=== PATIENT | female | born 1950 | race African-American/Black ===

== ENCOUNTER 2017-12-01 20:38 | Emergency (ER) | payer OTHER ==
[2017-12-01] MEDS ORDERED: NA CHLORIDE 0.9% 500 ML ONE (21:46)
[2017-12-01] MEDS ORDERED: FENTANYL CITR 100 MCG/2 ML ONE (21:46)
[2017-12-01] MEDS ORDERED: ONDANSETRON 4 MG/2 ML VIAL ONE (21:46)
[2017-12-01 21:55] LABS: Absolute Lymphocytes (CBC) 1.4 K/uL (0.7-4.9); Absolute Monocytes 0.6 K/uL (0.1-1.3); Absolute Neutrophil 3.7 K/uL (1.8-8.0); Basophils % 0.5 % (0-1.3); Eosinophils % 1.3 % (0-4.4); Hematocrit 37.7 % (36.0-45.0); MCH 27.9 pg (27.0-35.0); MCV 84.4 fL (80-100); MPV 9.5 fL (7.6-11.3); Monocytes % 10.6 % (3.3-12.3); RBC Red Blood Cell Count 4.47 M/uL (3.86-4.86)
--- NOTE | 2017-12-01 22:07 | RAD REPORT ---
EXAM DESCRIPTION: CT - Head C Spine Cap Wo Con - 12/01/2017 9:49 pm CLINICAL HISTORY: Trauma, head and neck injury. Chest, abdomen and pelvis pain. PAIN COMPARISON: Head Brain Wo Cont dated 03/24/2017; Head Brain Wo Cont dated 01/30/2017; Abdomen Pelvi s W Contrast dated 12/02/2016; Head Brain Wo Cont dated 10/27/2016; Head C Spine Cap Wo Con dated 2016 TECHNIQUE: CT head without contrast. CT cervical spine without contrast with coronal and sagittal reformatted images. CT chest, abdomen and pelvis without contrast with coronal and sagittal reformatted images of the [facility] ne. All CT scans are performed using dose optimization technique as appropriate and may include automated exposure control or mA/KV adjustment according to patient size. FINDINGS: CT HEAD WITHOUT CONTRAST: No intracranial hemorrhage, hydrocephalus or extra-axial fluid collection. No areas of brain edema o r midline shift. The paranasal sinuses and mastoids are clear. The calvarium is intact. CT CERVICAL SPINE WITHOUT CONTRAST: No fracture or subluxation. The prevertebral soft tissues are normal in thickness. CT CHEST, ABDOMEN, PELVIS WITHOUT CONTRAST: NOTE: Lack of contrast is a significant limitation in the assessment of trauma related findings. Spec ifically, solid organ, vascular and bowel evaluation is significantly limited. The lungs are clear.No pneumothorax or pericardial/pleural fluid. No evidence of intra-abdominal visceral injury, free fluid or free air is seen within the above detai led limitations. Liver cirrhosis with splenomegaly and portal hypertension again noted. Cholecystecto my clips. No concerning pelvic findings. Scattered colonic diverticulosis is seen. No acute fractures demonstrated. IMPRESSION: Negative for acute traumatic findings within the above detailed limitations.
--- NOTE | 2017-12-01 22:11 | RAD REPORT ---
EXAM DESCRIPTION: RAD - Knee Left 3 View - 12/01/2017 9:59 pm CLINICAL HISTORY: PAIN Trauma COMPARISON: Knee Left 3 view dated 05/18/2013 FINDINGS: No fracture or dislocation is seen. No significant joint effusion present.
[2017-12-01 22:19] LABS: Potassium 3.5 mmol/L (3.5-5.1)
--- NOTE | 2017-12-01 22:38 | EDPHYS ---
Physician Documentation [facility] Name: Sheila Vila Age: 67 yrs Sex: Female : 1950 Arrival Date: 12/01/2017 Time: 20:41 Bed 3 Private MD: ED Physician Merlin Chang HPI: 12/01 21:29 This 67 yrs old Black Female presents to ER via EMS with complaints of Fall Injury. nolvia 21:29 Details of fall: The patient fell from an upright position, while walking. Onset: The nolvia symptoms/episode began/occurred just prior to arrival. Associated injuries: The patient sustained injury to the head, injury to the low back, left knee, decreased range of motion. Severity of symptoms: At their worst the symptoms were mild, moderate, in the emergency department the symptoms are unchanged. The patient has not experienced similar symptoms in the past. Historical: - Allergies: 20:51 Darvocet-N 100; ao 20:51 PENICILLINS; ao 20:51 Toradol; ao - Home Meds: 20:51 brio inhaler [Active]; clonidine HCl 0.2 mg Oral tab [Active]; levamir 50 UNITS twice a ao day [Active]; lisinopril-hydrochlorothiazide Oral [Active]; Invokana 100 mg Oral tab 1 tab once daily [Active]; Metformin Oral 3 times per day [Active]; Tresiba FlexTouch U-100 subcutaneous [Active]; Xanax 2 mg Oral tab 3 times per day [Active]; Novolog Sub-Q [Active]; Tylenol #3 Oral [Active]; [place] 10-325 mg Oral tab three times a day [Active]; Victoza 2-Abhay subcutaneous [Active]; Seroquel Oral [Active]; - PMHx: 20:51 Asthma; Cirrhosis; COPD; Diabetes - IDDM; Hepatitis; resolved; Hypertension; ao Pancreatitis; Pneumonia; - PSHx: 20:51 None; ao - Immunization history:: Adult Immunizations unknown. - Social history:: Smoking status: Patient/guardian denies using tobacco, Patient/guardian denies using alcohol, street drugs. - Immunization history: Last tetanus immunization: - up to date. - Ebola Screening: : Patient negative for fever greater than or equal to 101.5 degrees Fahrenheit, and additional compatible Ebola Virus Disease symptoms Patient denies exposure to infectious person Patient denies travel to an Ebola-affected area in the 21 days before illness onset. - Family history:: not pertinent. ROS: 21:29 Constitutional: Negative for fever, chills, and weight loss, Eyes: Negative for injury, nolvia pain, redness, and discharge, ENT: Negative for injury, pain, and discharge, Neck: Negative for injury, pain, and swelling, Cardiovascular: Negative for chest pain, palpitations, and edema, Respiratory: Negative for shortness of breath, cough, wheezing, and pleuritic chest pain, Abdomen/GI: Negative for abdominal pain, nausea, vomiting, diarrhea, and constipation, Back: Negative for injury and pain, : Negative for injury, bleeding, discharge, and swelling, Skin: Negative for injury, rash, and discoloration, Neuro: Negative for headache, weakness, numbness, tingling, and seizure, Psych: Negative for depression, anxiety, suicide ideation, homicidal ideation, and hallucinations, Allergy/Immunology: Negative for hives, rash, and allergies, Endocrine: Negative for neck swelling, polydipsia, polyuria, polyphagia, and marked weight changes, Hematologic/Lymphatic: Negative for swollen nodes, abnormal bleeding, and unusual bruising. 21:29 MS/extremity: Positive for decreased range of motion, pain, tenderness, of the left knee. Exam: 21:29 Constitutional: This is a well developed, well nourished patient who is awake, alert, nolvia and in no acute distress. Head/Face: Normocephalic, atraumatic. Eyes: Pupils equal round and reactive to light, extra-ocular motions intact. Lids and lashes normal. Conjunctiva and sclera are non-icteric and not injected. Cornea within normal limits. Periorbital areas with no swelling, redness, or edema. ENT: Nares patent. No nasal discharge, no septal abnormalities noted. Tympanic membranes are normal and external auditory canals are clear. Oropharynx with no redness, swelling, or masses, exudates, or evidence of obstruction, uvula midline. Mucous membranes moist. Neck: Trachea midline, no thyromegaly or masses palpated, and no cervical lymphadenopathy. Supple, full range of motion without nuchal rigidity, or vertebral point tenderness. No Meningismus. Chest/axilla: Normal chest wall appearance and motion. Nontender with no deformity. No lesions are appreciated. Cardiovascular: Regular rate and rhythm with a normal S1 and S2. No gallops, murmurs, or rubs. Normal PMI, no JVD. No pulse deficits. Respiratory: Lungs have equal breath sounds bilaterally, clear to auscultation and percussion. No rales, rhonchi or wheezes noted. No increased work of breathing, no retractions or nasal flaring. Abdomen/GI: Soft, non-tender, with normal bowel sounds. No distension or tympany. No guarding or rebound. No evidence of tenderness throughout. Female : Normal external genitalia. Skin: Warm, dry with normal turgor. Normal color with no rashes, no lesions, and no evidence of cellulitis. Neuro: Awake and alert, GCS 15, oriented to person, place, time, and situation. Cranial nerves II-XII grossly intact. Motor strength 5/5 in all extremities. Sensory grossly intact. Cerebellar exam normal. Normal gait. Psych: Awake, alert, with orientation to person, place and time. Behavior, mood, and affect are within normal limits. 21:29 Back: pain, that is mild, that is moderate, ROM is painful, normal spinal alignment noted, CVA tenderness, is absent, muscle spasm, is appreciated in the left low back, left mid back, right mid back and right low back. Vital Signs: 20:45 BP 138 / 91; Pulse 116; Resp 24; Temp 99.1(O); Pulse Ox 98% on R/A; Weight 104.33 kg ao (R); Height 5 ft. 4 in. (162.56 cm) (R); Pain 0/10; 21:45 BP 135 / 79; Pulse 106; Resp 20; Pulse Ox 99% on R/A; mt 22:04 BP 130 / 84; Pulse 98; Resp 20; Pulse Ox 98% on R/A; mt 23:55 BP 125 / 85; Pulse 88; Resp 20; Pulse Ox 98% on R/A; ao 20:45 Body Mass Index 39.48 (104.33 kg, 162.56 cm) ao [place] Coma Score: 20:45 Eye Response: spontaneous(4). Verbal Response: oriented(5). Motor Response: obeys ao commands(6). Total: 15. Trauma Score (Adult): 20:45 Eye Response: spontaneous(1); Verbal Response: oriented(1); Motor Response: obeys ao commands(2); Systolic BP: > 89 mm Hg(4); Respiratory Rate: 10 to 29 per min(4); [place] Score: 15; Trauma Score: 12 MDM: 20:49 Patient medically screened. [facility] 21:29 Data reviewed: vital signs, nurses notes, lab test result(s), radiologic studies, CT [facility] scan, plain films. 12/01 21:20 Order name: Basic Metabolic Panel; Complete Time: 22:37 12/01 21:20 Order name: CBC with Diff; Complete Time: 22:18 12/01 21:20 Order name: Creatinine for Radiology; Complete Time: 22:37 12/01 21:32 Order name: Urine Culture [facility] 12/01 23:23 Order name: Urine Dipstick--Ancillary (enter results) [place] 12/01 21:20 Order name: XRAY Knee LEFT 3 view; Complete Time: 22:18 12/01 21:28 Order name: CT Traumagram (Head C Spine CAP wo con); Complete Time: 22:18 [facility] 12/01 21:20 Order name: Labs collected and sent; Complete Time: 21:40 12/01 21:20 Order name: Urine Dipstick-Ancillary (obtain specimen); Complete Time: 23:42 bb Administered Medications: 22:04 Drug: fentaNYL (PF) 25 mcg Route: IVP; Site: right antecubital; ao 23:03 Follow up: Response: No adverse reaction; Pain is unchanged, physician notified ao 22:04 Drug: Zofran 4 mg Route: IVP; Site: right antecubital; ao 23:04 Follow up: Response: No adverse reaction ao 22:05 Drug: NS 0.9% 500 ml Route: IV; Rate: bolus; Site: right antecubital; ao 23:03 Follow up: IV Status: Completed infusion ao 23:03 Drug: fentaNYL (PF) 25 mcg Route: IVP; Site: right antecubital; ao 23:42 Follow up: Response: No adverse reaction ao 12/02 00:18 Drug: fentaNYL (PF) 25 mcg Route: IVP; Site: right antecubital; ao 00:18 Follow up: Response: Medication administered at discharge. ao Disposition: 12/01/17 22:38 Discharged to Home. Impression: Fall due to bumping against object, Pain in left knee, Low back pain, Obesity, unspecified, Unspecified cirrhosis of liver. - Condition is Stable. - Discharge Instructions: Back Pain, Adult, Musculoskeletal Pain, Knee Pain, Back Injury Prevention, Qshp-bo-Xwyi, Back Pain, Adult, Ksla-dm-Kokb, Type 2 Diabetes Mellitus, Self Care, Adult, Type 2 Diabetes Mellitus, Self Care, Adult, Qwls-xi-Jrlc. - Prescriptions for Tylenol- Codeine #3 300-30 mg Oral Tablet - take 2 tablet by ORAL route every 6 hours As needed; 30 tablet. - Medication Reconciliation Form, Thank You Letter, Antibiotic Education, Prescription Opioid Use form. - Follow up: Private Physician; When: 2 - 3 days; Reason: Recheck today's complaints, Continuance of care, Re-evaluation by your physician. - Problem is new. - Symptoms have improved. Signatures: Dispatcher [employer] [facility] Merlin Chang MD MD cha Ballard, Brenda, RN RN Lang Rivas RN RN ao Corrections: (The following items were deleted from the chart) 12/01 21:39 21:20 Lumbar Spine 3 Views+[email or web address] ordered. [facility] 22:38 22:38 12/01/2017 22:38 Discharged to Home. Impression: Fall due to bumping against nolvia object; Pain in left knee; Low back pain. Condition is Stable. Discharge Instructions: Back Pain, Adult, Musculoskeletal Pain, Knee Pain, Back Injury Prevention, Mhxh-fr-Gthh, Back Pain, Adult, Ofgt-gc-Vjde, Type 2 Diabetes Mellitus, Self Care, Adult, Type 2 Diabetes Mellitus, Self Care, Adult, Aech-qo-Mcwd. Prescriptions for Tylenol-Codeine #3 300-30 mg Oral Tablet - take 2 tablet by ORAL route every 6 hours As needed; 30 tablet. and Forms are Medication Reconciliation Form, Thank You Letter, Antibiotic Education, Prescription Opioid Use. Follow up: Private Physician; When: 2 - 3 days; Reason: Recheck today's complaints, Continuance of care, Re-evaluation by your physician. Problem is new. Symptoms have improved. [facility] 12/02 00:21 12/01 22:38 12/01/2017 22:38 Discharged to Home. Impression: Fall due to bumping ao against object; Pain in left knee; Low back pain; Obesity, unspecified; Unspecified cirrhosis of liver. Condition is Stable. Discharge Instructions: Back Pain, Adult, Musculoskeletal Pain, Knee Pain, Back Injury Prevention, Rckg-el-Yapq, Back Pain, Adult, Raif-uj-Avvy, Type 2 Diabetes Mellitus, Self Care, Adult, Type 2 Diabetes Mellitus, Self Care, Adult, Vqfm-ii-Qnlo. Prescriptions for Tylenol-Codeine #3 300-30 mg Oral Tablet - take 2 tablet by ORAL route every 6 hours As needed; 30 tablet. and Forms are Medication Reconciliation Form, Thank You Letter, Antibiotic Education, Prescription Opioid Use. Follow up: Private Physician; When: 2 - 3 days; Reason: Recheck today's complaints, Continuance of care, Re-evaluation by your physician. Problem is new. Symptoms have improved. nolvia
--- NOTE | 2017-12-01 22:38 | ER ---
Nurse's Notes [facility] Name: Sheila Vila Age: 67 yrs Sex: Female : 1950 Arrival Date: 12/01/2017 Time: 20:41 Bed 3 Private MD: Diagnosis: Fall due to bumping against object;Pain in left knee;Low back pain;Obesity, unspecified;Unspecified cirrhosis of liver Presentation: 12/01 20:42 Presenting complaint: EMS states: Patient trip and fall at home. Patient complains of ao lumbar area pain. Care prior to arrival: None. Mechanism of Injury: Fall from standing position. Trauma event details: Injury occurred in the [facility], Injury occurred: at home. Injury occurred: December 01, 2017 Injury occurred at: 20:30. 20:42 Acuity: SYLVE[place] 3 ao 20:42 Method Of Arrival: EMS: [facility] ao 20:55 Transition of care: patient was not received from another setting of care. Onset of ao symptoms was December 01, 2017 at 20:30. Risk Assessment: Do you want to hurt yourself or someone else? Patient reports no desire to harm self or others. Initial Sepsis Screen: Does the patient meet any 2 criteria? No. Patient's initial sepsis screen is negative. Does the patient have a suspected source of infection? No. Patient's initial sepsis screen is negative. Trauma Activation: Physician: ED Physician; Name: Bernardo; Notified At: ; Arrived At: Physician: General Surgeon; Name: ; Notified At: ; Arrived At: Physician: Radiology; Name: ; Notified At: ; Arrived At: Physician: Respiratory; Name: ; Notified At: ; Arrived At: Physician: Lab; Name: ; Notified At: ; Arrived At: Historical: - Allergies: 20:51 Darvocet-N 100; ao 20:51 PENICILLINS; ao 20:51 Toradol; ao - Home Meds: 20:51 brio inhaler [Active]; clonidine HCl 0.2 mg Oral tab [Active]; levamir 50 UNITS twice a ao day [Active]; lisinopril-hydrochlorothiazide Oral [Active]; Invokana 100 mg Oral tab 1 tab once daily [Active]; Metformin Oral 3 times per day [Active]; Tresiba FlexTouch U-100 subcutaneous [Active]; Xanax 2 mg Oral tab 3 times per day [Active]; Novolog Sub-Q [Active]; Tylenol #3 Oral [Active]; [place] 10-325 mg Oral tab three times a day [Active]; Victoza 2-Abhay subcutaneous [Active]; Seroquel Oral [Active]; - PMHx: 20:51 Asthma; Cirrhosis; COPD; Diabetes - IDDM; Hepatitis; resolved; Hypertension; ao Pancreatitis; Pneumonia; - PSHx: 20:51 None; ao - Immunization history:: Adult Immunizations unknown. - Social history:: Smoking status: Patient/guardian denies using tobacco, Patient/guardian denies using alcohol, street drugs. - Immunization history: Last tetanus immunization: - up to date. - Ebola Screening: : Patient negative for fever greater than or equal to 101.5 degrees Fahrenheit, and additional compatible Ebola Virus Disease symptoms Patient denies exposure to infectious person Patient denies travel to an Ebola-affected area in the 21 days before illness onset. - Family history:: not pertinent. Screenin:50 Abuse screen: Denies threats or abuse. Denies injuries from another. Nutritional ao screening: No deficits noted. Tuberculosis screening: No symptoms or risk factors identified. Fall Risk Fall in past 12 months (25 points). No secondary diagnosis (0 pts). No IV (0 pts). Ambulatory Aid- None/Bed Rest/Nurse Assist (0 pts). Gait- Normal/Bed Rest/Wheelchair (0 pts) Mental Status- Oriented to own ability (0 pts). Primary Survey: 20:50 A: Airway: patent. Breathing/Chest: Respiratory pattern: regular. Circulation: Cardiac ao rhythm: sinus rhythm Heart tones present. Pulses: Skin color: pink, Skin temperature: warm. Disability Alert. 21:08 Reassessment Airway Airway Patent Breathing/Chest Respiratory pattern Regular ao Circulation Heart rhythm Junctional tach Pulses Palpable Disability Alert. Assessment: 20:55 General: Appears in no apparent distress. comfortable, Behavior is cooperative, ao agitated, anxious. Pain: Complains of pain in left leg Pain currently is 10 out of 10 on a pain scale. Neuro: Level of Consciousness is awake, alert, obeys commands, Oriented to person, place, time, situation, Moves all extremities. Speech is normal, Facial symmetry appears normal. Cardiovascular: Capillary refill < 3 seconds Patient's skin is warm and dry. Respiratory: Airway is patent Respiratory effort is even, unlabored, Respiratory pattern is regular, symmetrical, Breath sounds are clear bilaterally. GI: Abdomen is non-distended. : No signs and/or symptoms were reported regarding the genitourinary system. EENT: No signs and/or symptoms were reported regarding the EENT system. Derm: No signs and/or symptoms reported regarding the dermatologic system. Musculoskeletal: Range of motion: limited in left hip. Injury Description: Trip and fall. 21:55 Reassessment: Patient appears in no apparent distress at this time. Patient and/or ao family updated on plan of care and expected duration. Pain level reassessed. Patient is alert, oriented x 3, equal unlabored respirations, skin warm/dry/pink. 22:55 Reassessment: Patient appears in no apparent distress at this time. Patient and/or ao family updated on plan of care and expected duration. Pain level reassessed. Patient is alert, oriented x 3, equal unlabored respirations, skin warm/dry/pink. 23:55 Reassessment: DC instructions given to patient. Patient agree with he POC and to follow ao up with PCP. 12/02 00:10 Reassessment: Received an order from Dr Chang to medicate patient with Fentanyl 25 ao Mcg. Vital Signs: 12/01 20:45 BP 138 / 91; Pulse 116; Resp 24; Temp 99.1(O); Pulse Ox 98% on R/A; Weight 104.33 kg ao (R); Height 5 ft. 4 in. (162.56 cm) (R); Pain 0/10; 21:45 BP 135 / 79; Pulse 106; Resp 20; Pulse Ox 99% on R/A; mt 22:04 BP 130 / 84; Pulse 98; Resp 20; Pulse Ox 98% on R/A; mt 23:55 BP 125 / 85; Pulse 88; Resp 20; Pulse Ox 98% on R/A; ao 20:45 Body Mass Index 39.48 (104.33 kg, 162.56 cm) ao Klaudia Coma Score: 20:45 Eye Response: spontaneous(4). Verbal Response: oriented(5). Motor Response: obeys ao commands(6). Total: 15. Trauma Score (Adult): 20:45 Eye Response: spontaneous(1); Verbal Response: oriented(1); Motor Response: obeys ao commands(2); Systolic BP: > 89 mm Hg(4); Respiratory Rate: 10 to 29 per min(4); [place] Score: 15; Trauma Score: 12 ED Course: 20:41 Patient arrived in ED. ds1 20:42 Lang Conner, RN is Primary Nurse. ao 20:44 Triage completed. ao 20:49 Merlin Chang MD is Attending Physician. nolvia 20:52 Arm band placed on right wrist. Patient placed in an exam room, on a stretcher, on ao oxygen, on residential monitor, Patient notified of wait time. 21:12 Patient has correct armband on for positive identification. patient monitor on. Pulse ao ox on. NIBP on. 21:12 Patient maintains SpO2 saturation greater than 95% on room air. Thermoregulation: warm ao blanket given to patient. 21:[address] kw1 21:35 Inserted saline lock: 20 gauge in right antecubital area, using aseptic technique. ao ,using aseptic technique. Ultrasound guided IV Blood collected. 21:49 CT completed. Patient tolerated procedure well. Patient moved to radiology. nj 21:49 CT Traumagram (Head C Spine CAP wo con) In Process Unspecified. EDMS 21:56 Patient moved to radiology via stretcher. bb2 21:56 X-ray completed. Patient tolerated procedure well. bb2 21:57 XRAY Knee LEFT 3 view In Process Unspecified. EDMS 08/16 00:20 No provider procedures requiring assistance completed. IV discontinued, intact, ao bleeding controlled, No redness/swelling at site. Pressure dressing applied. Administered Medications: 12/01 22:04 Drug: fentaNYL (PF) 25 mcg Route: IVP; Site: right antecubital; ao 23:03 Follow up: Response: No adverse reaction; Pain is unchanged, physician notified ao 22:04 Drug: Zofran 4 mg Route: IVP; Site: right antecubital; ao 23:04 Follow up: Response: No adverse reaction ao 22:05 Drug: NS 0.9% 500 ml Route: IV; Rate: bolus; Site: right antecubital; ao 23:03 Follow up: IV Status: Completed infusion ao 23:03 Drug: fentaNYL (PF) 25 mcg Route: IVP; Site: right antecubital; ao 23:42 Follow up: Response: No adverse reaction ao 08/16 00:18 Drug: fentaNYL (PF) 25 mcg Route: IVP; Site: right antecubital; ao 00:18 Follow up: Response: Medication administered at discharge. ao Intake: 00:21 PO: 0ml; Total: 0ml. ao Outcome: 12/01 22:38 Discharge ordered by . nolvia 12/02 00:20 Discharged to home via wheelchair. ao Condition: stable Discharge instructions given to patient, Instructed on discharge instructions, follow up and referral plans. Demonstrated understanding of instructions, follow-up care, medications, Prescriptions given X 1. 00:21 Patient's length of stay in the Emergency Department was greater than 2 hours. ao 00:21 Patient left the ED. ao Signatures: Dispatcher [employer] EDMS Merlin Chang MD MD cha Sanford, Demi ds1 Lang Conner RN RN barry Her, Dmitry Pate, Alejandra Hou mt kw1 Ela King2
[2017-12-01 23:29] LABS: Urine Blood NEGATIVE (NEG); Urine Glucose 2+ (NEG); Urine Protein NEGATIVE (NEG)
[2017-12-02 01:00] VITALS: TEMP 99.1
[2017-12-02 01:02] VITALS: O2SAT 98
[2017-12-02 01:03] VITALS: BP 125/85
== END 2017-12-02 00:21 | disposition home or self-care (01) ==
LOC: ER 20:38
DX: M25.562 Pain in left knee (principal); E66.9 Obesity, unspecified; K74.60 Unspecified cirrhosis of liver; W18.00XA Striking against unspecified object with subsequent fall, initial encounter; Y93.01 Activity, walking, marching and hiking; Y92.9 Unspecified place or not applicable; Z79.4 Long term (current) use of insulin; Z88.0 Allergy status to penicillin; Z88.5 Allergy status to narcotic agent; Z88.6 Allergy status to analgesic agent; I10 Essential (primary) hypertension; E11.9 Type 2 diabetes mellitus without complications; J44.9 Chronic obstructive pulmonary disease, unspecified
CPT/HCPCS: 36415; 70450; 71250; 72125; 73562; 80048; 81003; 85025; 87086; 87088; 96361; 96374; 96375; 99285; J2405; J3010

== ENCOUNTER 2018-03-29 09:22 | Inpatient (IN) | payer OTHER ==
[2018-03-29] MEDS ORDERED: LEVALBUTEROL 1.25 MG/3 ML NEB ONE (10:06)
[2018-03-29] MEDS ORDERED: METHYLPREDNISOLONE 125 MG INJ ONE (10:06)
[2018-03-29 11:56] LABS: BUN Blood Urea Nitrogen 11 mg/dL (7-18); Bicarbonate 28 mmol/L (21-32); Glucose Level 144 mg/dL (74-106); NT PRO-BNP 8 pg/mL (<125); Potassium 3.3 mmol/L (3.5-5.1); Sodium Level 141 mmol/L (136-145); Troponin (Emerg Dept Use Only) < 0.02 ng/mL (0.0-0.045)
[2018-03-29 12:12] LABS: Absolute Lymphocytes (CBC) 0.9 K/uL (0.7-4.9); Absolute Monocytes 0.5 K/uL (0.1-1.3); Absolute Neutrophil 6.2 K/uL (1.8-8.0); Basophils % 0.4 % (0-1.3); Eosinophils % 1.2 % (0-4.4); Hematocrit 40.8 % (36.0-45.0); Lymphocytes % 11.3 % (15.3-44.8); MCV 85.9 fL (80-100); MPV 9.7 fL (7.6-11.3); Monocytes % 6.6 % (3.3-12.3); RBC Red Blood Cell Count 4.75 M/uL (3.86-4.86)
--- NOTE | 2018-03-29 12:40 | RAD REPORT ---
EXAM DESCRIPTION: [place] Single View03/29/2018 12:02 pm CLINICAL HISTORY: Chest pain COMPARISON: October 2017 FINDINGS: The lungs appear clear of acute infiltrate. The heart is normal size IMPRESSION: No acute abnormalities displayed
[2018-03-29 13:02] LABS: Platelet Estimate DECR; Urine White Blood Cell Casts OK
--- NOTE | 2018-03-29 13:07 | EDPHYS ---
Physician Documentation [facility] Name: Sheila Vila Age: 67 yrs Sex: Female : 1950 Arrival Date: 03/29/2018 Time: 09:25 Bed 16 Private MD: Malvin Huston E ED Physician Chandler Parmar HPI: 03/29 10:01 This 67 yrs old Black Female presents to ER via Ambulatory with complaints of Cough, rn Chest Pain. 10:01 The patient or guardian reports cough. Onset: The symptoms/episode began/occurred rn yesterday. Severity of symptoms: At their worst the symptoms were moderate, in the emergency department the symptoms are unchanged. Modifying factors: The symptoms are alleviated by nothing, the symptoms are aggravated by nothing. The patient has experienced similar episodes in the past. Reports cough that began yesterday, + right sided chest pain with deep breath and cough, no fever, seen yesterday by PCP, told had bronchitis/early pneumonia, given abx and steroids, filled, not better, feels like pain is worse. Has had gallbladder removed. NO abd pain/vomiting/diarrhea. . Historical: - Allergies: 09:55 Darvocet-N 100; ss 09:55 PENICILLINS; ss 09:55 Toradol; ss 09:55 PROPOXYPHENE; ss - Home Meds: 11:10 brio inhaler [Active]; clonidine HCl 0.2 mg Oral tab [Active]; Invokana 100 mg Oral tab rb1 1 tab once daily [Active]; levamir 50 UNITS twice a day [Active]; lisinopril-hydrochlorothiazide Oral [Active]; Metformin Oral 3 times per day [Active]; [place] 10-325 mg Oral tab three times a day [Active]; Novolog Sub-Q [Active]; Seroquel Oral [Active]; Tresiba FlexTouch U-100 subcutaneous [Active]; Tylenol #3 Oral [Active]; Victoza 2-Abhay subcutaneous [Active]; Xanax 2 mg Oral tab 3 times per day [Active]; - PMHx: 09:55 Asthma; Cirrhosis; Pancreatitis; Diabetes - IDDM; COPD; Hepatitis; resolved; ss Hypertension; Pneumonia; - PSHx: 11:10 None; rb1 - Immunization history:: Adult Immunizations up to date. - Social history:: Smoking status: Patient/guardian denies using tobacco. - Ebola Screening: : Patient denies exposure to infectious person Patient denies travel to an Ebola-affected area in the 21 days before illness onset. - Family history:: not pertinent. - Hospitalizations: : No recent hospitalization is reported. ROS: 10:01 Constitutional: Negative for fever, chills, and weight loss, Eyes: Negative for injury, rn pain, redness, and discharge, Neck: Negative for injury, pain, and swelling, Cardiovascular: Negative for palpitations Respiratory: + cough Abdomen/GI: Negative for abdominal pain, nausea, vomiting, diarrhea, and constipation, MS/Extremity: Negative for injury and deformity, Skin: Negative for injury, rash, and discoloration, Neuro: + generalized weakness Exam: 10:01 Constitutional: Overweight female with deep cough Head/Face: Normocephalic, rn atraumatic. Eyes: Pupils equal round and reactive to light, extra-ocular motions intact. Neck: Trachea midline, no cervical lymphadenopathy. Cardiovascular: Tachycardic, regular, no murmur Respiratory: + mild tachypnea, diminished breath sounds bilateral bases with faint exp wheezing Abdomen/GI: soft, non-tender MS/ Extremity: Pulses equal, no cyanosis. 1+ pitting edema bilateral legs Neuro: Awake and alert, GCS 15, oriented to person, place, time, and situation. Cranial nerves II-XII grossly intact. Motor strength 5/5 in all extremities. Sensory grossly intact. Vital Signs: 09:55 BP 122 / 78; Pulse 122; Resp 25; Temp 97.7; Pulse Ox 100% on R/A; Weight 106.59 kg; ss Height 5 ft. 4 in. (162.56 cm); Pain 9/10; 10:54 BP 117 / 61; Pulse 121; Resp 21; Pulse Ox 100% ; ca1 12:04 BP 107 / 74; Pulse 112; Resp 19; Pulse Ox 95% ; Pain 9/10; ca1 12:45 BP 132 / 88; Pulse 107; Resp 18; Pulse Ox 100% on R/A; rb1 13:45 BP 118 / 88; Pulse 102; Resp 12; Pulse Ox 96% on R/A; rb1 14:45 BP 105 / 76; Pulse 102; Resp 14; Pulse Ox 86% on R/A; rb1 15:45 BP 110 / 71; Pulse 97; Resp 12; Pulse Ox 93% on 2.5 lpm NC; rb1 09:55 Body Mass Index 40.34 (106.59 kg, 162.56 cm) ss 14:45 Put pt. on 2.5 L NC, rb1 Procedures: 10:37 Peripheral line: by aseptic technique a peripheral line was placed in the left forearm rn vein, Using u/s guidance. MDM: 09:46 Patient medically screened. rn 13:04 Differential Diagnosis: Bronchitis Influenza Upper Respiratory Infection Viral Syndrome rn Pneumonia. Data reviewed: vital signs, nurses notes, lab test result(s), EKG, radiologic studies, plain films, and as a result, I will admit patient. Counseling: I had a detailed discussion with the patient and/or guardian regarding: the historical points, exam findings, and any diagnostic results supporting the discharge/admit diagnosis, lab results, radiology results, the need for further work-up and treatment in the hospital. Response to treatment: the patient's symptoms have mildly improved after treatment, and as a result, I will admit patient. Admission orders: after a detailed discussion of the patient's condition and case, the admit orders are written by me. ED course: Pt with COPD exacerbation, pleuritic pain, neg cxr, oxygen 100%, admitted for COPD exacerbation to Dr. Pro, \T\ 1305.. 03/29 09:53 Order name: Blood Culture Adult (2) 03/29 09:53 Order name: BMP; Complete Time: 12:16 rn 03/29 09:53 Order name: CBC with Diff; Complete Time: 14:11 03/29 09:53 Order name: NT PRO-BNP; Complete Time: 12:16 03/29 09:53 Order name: Troponin (emerg Dept Use Only); Complete Time: 12:16 rn 03/29 09:53 Order name: Flu; Complete Time: 12:16 rn 03/29 09:53 Order name: Procalcitonin; Complete Time: 12:16 03/29 12:21 Order name: CBC Smear Scan; Complete Time: 14:11 [facility] 03/29 13:38 Order name: Urine Dipstick--Ancillary (enter results) 03/29 14:01 Order name: Basic Metabolic Panel [facility] 03/29 14:01 Order name: Basic Metabolic Panel [facility] 03/29 14:01 Order name: Basic Metabolic Panel EDMS 03/29 14:01 Order name: CBC with Automated Diff EDMS 03/29 14:01 Order name: CBC with Automated Diff EDMS 03/29 09:53 Order name: IV Start; Complete Time: 16:13 rn 03/29 09:53 Order name: XRAY CXR (1 view); Complete Time: 12:41 rn 03/29 09:53 Order name: EKG; Complete Time: 09:54 rn 03/29 09:53 Order name: Cardiac monitoring; Complete Time: 10:25 rn 03/29 09:53 Order name: EKG - Nurse/Tech; Complete Time: 10:25 rn 03/29 09:53 Order name: Labs collected and sent; Complete Time: 11:38 rn 03/29 09:53 Order name: O2 Per Protocol; Complete Time: 10:26 rn 03/29 09:53 Order name: O2 Sat Monitoring; Complete Time: 10:26 rn 03/29 11:28 Order name: Labs - recollect needed; Complete Time: 13:02 eb 03/29 14:01 Order name: CBC with Automated Diff EDMS Administered Medications: 10:04 Drug: Xopenex (3) 1.25 mg Route: Inhalation; hb 11:38 Drug: SOLU-Medrol 125 mg Route: IVP; Site: Other; hb 14:29 Drug: NS 0.9% 500 ml Route: IV; Rate: bolus; Site: right antecubital; rb1 16:39 Follow up: Response: No adverse reaction; IV Status: Completed infusion mg2 14:30 Drug: Demerol 25 mg Route: IVP; Site: right antecubital; rb1 14:45 Follow up: Response: No adverse reaction; Pain is decreased rb1 Disposition: 03/29/18 13:05 Hospitalization ordered by Elias Pro for Inpatient Admission. Preliminary diagnosis are Chronic obstructive pulmonary disease with acute lower respiratory infection, Chronic obstructive pulmonary disease with (acute) exacerbation. - Bed requested for Telemetry/MedSurg (Inpatient). - Status is Inpatient Admission. mg2 - Condition is Stable. - Problem is an acute exacerbation. - Symptoms have improved. UTI on Admission? No Signatures: Dispatcher [employer] EDMS Gillian Poon RN RN dw Nieto, Roman, MD MD rn Smirch, Shelby, RN RN ss Barber, Rebecca, RN RN rb1 Clara Graves RN RN Nette Colon Mihir Young RN RN mg2 Corrections: (The following items were deleted from the chart) 15:11 13:05 Hospitalization Ordered by Elias Pro MD for Inpatient Admission. Preliminary dw diagnosis is Chronic obstructive pulmonary disease with acute lower respiratory infection; Chronic obstructive pulmonary disease with (acute) exacerbation. Bed requested for Telemetry/MedSurg (Inpatient). Status is Inpatient Admission. Condition is Stable. Problem is an acute exacerbation. Symptoms have improved. UTI on Admission? No. rn 16:38 15:11 03/29/2018 13:05 Hospitalization Ordered by Elias Pro MD for Inpatient mg2 Admission. Preliminary diagnosis is Chronic obstructive pulmonary disease with acute lower respiratory infection; Chronic obstructive pulmonary disease with (acute) exacerbation. Bed requested for Telemetry/MedSurg (Inpatient). Status is Inpatient Admission. Condition is Stable. Problem is an acute exacerbation. Symptoms have improved. UTI on Admission? No. dw
--- NOTE | 2018-03-29 13:07 | ER ---
Nurse's Notes [facility] Name: Sheila Vila Age: 67 yrs Sex: Female : 1950 Arrival Date: 03/29/2018 Time: 09:25 Bed 16 Private MD: Malvin Huston E Diagnosis: Chronic obstructive pulmonary disease with acute lower respiratory infection;Chronic obstructive pulmonary disease with (acute) exacerbation Presentation: 03/29 09:47 Presenting complaint: Patient states: Cough x 3 days and R lateral chest wall pain that ss began yesterday. Denies fever. PT reports she was seen by her PCP and given a Zpak and cough syrup to help with her symptoms after being diagnosed with bronchitis. Pt is concerned because her PCP told her she has the type of bronchitis that can quickly turn into pneumonia. Transition of care: patient was not received from another setting of care. Onset of symptoms was March 26, 2018. Risk Assessment: Do you want to hurt yourself or someone else? Patient reports no desire to harm self or others. Initial Sepsis Screen: Does the patient meet any 2 criteria? RR > 20 per min. Does the patient have a suspected source of infection? Yes: Productive cough/pneumonia. Care prior to arrival: None. 09:47 Method Of Arrival: Ambulatory ss 09:47 Acuity: SYLVESTER 2 ss Historical: - Allergies: 09:55 Darvocet-N 100; ss 09:55 PENICILLINS; ss 09:55 Toradol; ss 09:55 PROPOXYPHENE; ss - Home Meds: 11:10 brio inhaler [Active]; clonidine HCl 0.2 mg Oral tab [Active]; Invokana 100 mg Oral tab rb1 1 tab once daily [Active]; levamir 50 UNITS twice a day [Active]; lisinopril-hydrochlorothiazide Oral [Active]; Metformin Oral 3 times per day [Active]; [place] 10-325 mg Oral tab three times a day [Active]; Novolog Sub-Q [Active]; Seroquel Oral [Active]; Tresiba FlexTouch U-100 subcutaneous [Active]; Tylenol #3 Oral [Active]; Victoza 2-Abhay subcutaneous [Active]; Xanax 2 mg Oral tab 3 times per day [Active]; - PMHx: 09:55 Asthma; Cirrhosis; Pancreatitis; Diabetes - IDDM; COPD; Hepatitis; resolved; ss Hypertension; Pneumonia; - PSHx: 11:10 None; rb1 - Immunization history:: Adult Immunizations up to date. - Social history:: Smoking status: Patient/guardian denies using tobacco. - Ebola Screening: : Patient denies exposure to infectious person Patient denies travel to an Ebola-affected area in the 21 days before illness onset. - Family history:: not pertinent. - Hospitalizations: : No recent hospitalization is reported. Screenin:15 Abuse screen: Denies threats or abuse. Denies injuries from another. Nutritional hb screening: No deficits noted. Tuberculosis screening: No symptoms or risk factors identified. Fall Risk Total Pfeiffer Fall Scale indicates Low Risk Score (25-44 pts). Fall prevention measures have been instituted. Side Rails Up X 2 Frequent Obs/Assesments occuring As available Patient and Family Educated on Fall Prevention Program and strategies. Assessment: 10:22 Reassessment: Unable to establish PIV access, Dr. Parmar notified. hb 10:32 Reassessment: Dr. Parmar at bedside for US guided PIV placement. hb 11:10 General: Appears uncomfortable, Behavior is calm, cooperative, Reports chills for x 3 rb1 days. Denies fever. Pain: Complains of pain in right chest wall Pain radiates to right mid back Pain currently is 10 out of 10 on a pain scale. Pain began 1 day ago. Neuro: Level of Consciousness is awake, alert, obeys commands, Oriented to person, place, time, situation. Cardiovascular: Capillary refill < 3 seconds is brisk in bilateral fingers. Respiratory: Reports shortness of breath at rest cough that is hacking, persistent pain with cough Airway is patent Respiratory effort is even, unlabored, Respiratory pattern is regular, symmetrical. GI: Reports nausea, vomiting, Soft stools. : No signs and/or symptoms were reported regarding the genitourinary system. Derm: Skin is dry, Skin is normal, Skin temperature is warm. Musculoskeletal: Range of motion: intact in all extremities. 12:09 Reassessment: Patient appears in no apparent distress at this time. No changes from rb1 previously documented assessment. 13:09 Reassessment: Patient appears in no apparent distress at this time. Patient and/or rb1 family updated on plan of care and expected duration. Pain level reassessed. Patient is alert, oriented x 3, equal unlabored respirations, skin warm/dry/pink. pt. requested pain and nausea medication, waiting for the provider to insert an IV via US. Provider notified. 14:00 Reassessment: Patient appears in no apparent distress at this time. Patient and/or rb1 family updated on plan of care and expected duration. Pain level reassessed. Patient is alert, oriented x 3, equal unlabored respirations, skin warm/dry/pink. 15:00 Reassessment: Patient appears in no apparent distress at this time. No changes from rb1 previously documented assessment. 16:00 Reassessment: Patient appears in no apparent distress at this time. Patient and/or rb1 family updated on plan of care and expected duration. Pain level reassessed. Patient is alert, oriented x 3, equal unlabored respirations, skin warm/dry/pink. 16:04 Reassessment: Called report to VIOLETTE Márquez. Information from the SBAR was given. All rb1 questions asked and answered. Vital Signs: 09:55 BP 122 / 78; Pulse 122; Resp 25; Temp 97.7; Pulse Ox 100% on R/A; Weight 106.59 kg; ss Height 5 ft. 4 in. (162.56 cm); Pain 9/10; 10:54 BP 117 / 61; Pulse 121; Resp 21; Pulse Ox 100% ; ca1 12:04 BP 107 / 74; Pulse 112; Resp 19; Pulse Ox 95% ; Pain 9/10; ca1 12:45 BP 132 / 88; Pulse 107; Resp 18; Pulse Ox 100% on R/A; rb1 13:45 BP 118 / 88; Pulse 102; Resp 12; Pulse Ox 96% on R/A; rb1 14:45 BP 105 / 76; Pulse 102; Resp 14; Pulse Ox 86% on R/A; rb1 15:45 BP 110 / 71; Pulse 97; Resp 12; Pulse Ox 93% on 2.5 lpm NC; rb1 09:55 Body Mass Index 40.34 (106.59 kg, 162.56 cm) ss 14:45 Put pt. on 2.5 L NC, rb1 ED Course: 09:25 Patient arrived in ED. as 09:26 Malvin Huston MD is Private Physician. as 09:46 Chandler Parmar MD is Attending Physician. rn 09:49 Triage completed. ss 09:55 Flu Sent. hb 09:55 Arm band placed on right wrist. ss 10:00 Patient has correct armband on for positive identification. museum curator on. Pulse ca1 ox on. NIBP on. 10:15 EKG done, by ED staff, reviewed by Chandler Parmar MD. dh3 10:18 Missed attempt(s): 24 gauge in right antecubital area. Bleeding controlled, band aid dh3 applied, catheter tip intact. 10:22 Missed attempt(s): 24 gauge in right antecubital area. Bleeding controlled, band aid dh3 applied, catheter tip intact. 11:10 Patient maintains SpO2 saturation greater than 95% on room air. rb1 11:26 Josi Marie, VIOLETTE is Primary Nurse. rb1 11:34 X-ray completed. Portable x-ray completed in exam room. Patient tolerated procedure ag1 well. 12:04 XRAY CXR (1 view) In Process Unspecified. EDMS 13:05 Elias Pro MD is Hospitalizing Provider. rn 13:35 Urine collected: clean catch specimen, cloudy. dh3 14:32 Inserted saline lock: 18 gauge in right antecubital area, using aseptic technique. rb1 ,using aseptic technique. Inserted by Dr. Parmar via US. Blood collected. 16:00 Report given to VIOLETTE Ash. rb1 16:37 No provider procedures requiring assistance completed. Patient admitted, IV remains in mg2 place. Administered Medications: 10:04 Drug: Xopenex (3) 1.25 mg Route: Inhalation; hb 11:38 Drug: SOLU-Medrol 125 mg Route: IVP; Site: Other; hb 14:29 Drug: NS 0.9% 500 ml Route: IV; Rate: bolus; Site: right antecubital; rb1 16:39 Follow up: Response: No adverse reaction; IV Status: Completed infusion mg2 14:30 Drug: Demerol 25 mg Route: IVP; Site: right antecubital; rb1 14:45 Follow up: Response: No adverse reaction; Pain is decreased rb1 Outcome: 13:05 Decision to Hospitalize by Provider. rn 16:37 Admitted to Med/surg accompanied by tech, via wheelchair, room 202, with oxygen, with mg2 chart. 16:37 Condition: stable 16:37 Instructed on the need for admit. 16:38 Patient left the ED. mg2 Signatures: Dispatcher [employer] EDMS Tosha Henderson, Chandler, MD MD rn Smirch, Debra, RN RN ss Elaine Cabrera ag1 Josi Marie, RN RN rb1 Clara Graves RN RN Sonia Vasquez 3 Mihir Young RN RN mg2 Joselin Crawford RN RN ca1 Corrections: (The following items were deleted from the chart) 10:22 10:21 General: ca1 ca1
[2018-03-29 13:08] LABS: Blood Morphology Comment NOT SEEN (NOT SEEN)
[2018-03-29] MEDS ORDERED: ONDANSETRON 4 MG/2 ML VIAL IV PRN (13:53)
[2018-03-29] MEDS ORDERED: ACETAMINOPHEN 500 MG TAB PO PRN (13:53)
[2018-03-29] MEDS ORDERED: GLUCAGON 1 MG/VIAL IM PRN (13:58)
[2018-03-29] MEDS ORDERED: D50W 25 GM/50 ML SYRINGE IV PRN (13:58)
[2018-03-29] MEDS ORDERED: MEPERIDINE HCL 25 MG/0.5 ML ONE (14:27)
[2018-03-29] MEDS ORDERED: ONDANSETRON 4 MG/2 ML VIAL ONE (14:27)
[2018-03-29] MEDS ORDERED: NA CHLORIDE 0.9% 500 ML ONE (14:27)
[2018-03-29 15:06] LABS: Urine Blood NEGATIVE (NEG); Urine Glucose 2+ (NEG); Urine Protein NEGATIVE (NEG); Urine pH 5.5 (5.0-7.0)
[2018-03-29] MEDS: INSULIN -REGULAR HUMAN 50 UNIT/0.5 ML ML SQ SCH ×2 (16:30→21:00)
[2018-03-29] MEDS ORDERED: HYDROCODONE/APAP 7.5/325 MG TAB PO PRN (17:00)
--- NOTE | 2018-03-29 17:47 | EKG ---
Test Date: 2018-03-29 Test Time: 10:01:21 Supplier Quality Specialist: ALPESH MEASUREMENT RESULTS: Intervals: Rate: 113 MA: 156 QRSD: 72 QT: 332 QTc: 455 [place]: P: 49 MA: 156 QRS: 20 T: 10 INTERPRETIVE STATEMENTS: Sinus tachycardia Cannot rule out Anterior infarct, age undetermined Abnormal ECG Compared to ECG 06/17/2017 14:11:59 Myocardial infarct finding now present Electronically Signed On 03-29-18 17:46:55 GROUP SOCIAL WORKER by Jass Moreira
[2018-03-29] MEDS: METHYLPREDNISOLONE 40 MG INJ IV SCH (18:04)
[2018-03-29] MEDS: MORPHINE 2 MG/ML SYR IV PRN ×2 (18:12→21:56)
[2018-03-29] MEDS: GUAIFENESIN/CODEINE 5ML UCUP PO PRN (18:12)
[2018-03-29] MEDS: IPRATROPIUM BROM 0.5MG/2.5ML NEB PRN (18:30)
[2018-03-29] MEDS: ALBUTEROL 2.5 MG/3 ML NEB SOL NEB PRN (18:30)
[2018-03-30] MEDS: GUAIFENESIN/CODEINE 5ML UCUP PO PRN ×2 (00:50→07:06)
[2018-03-30] MEDS: METHYLPREDNISOLONE 40 MG INJ IV SCH ×3 (00:51→16:52)
[2018-03-30] MEDS: ALBUTEROL 2.5 MG/3 ML NEB SOL NEB PRN ×3 (01:11→11:30)
[2018-03-30] MEDS: IPRATROPIUM BROM 0.5MG/2.5ML NEB PRN ×3 (01:11→11:30)
[2018-03-30] MEDS: MORPHINE 2 MG/ML SYR IV PRN (03:16)
--- NOTE | 2018-03-30 04:07 | HP ---
Date of Admission: 03/29/2018 Primary Care Physician: Dr. Huston. Chief Complaint: Cough, shortness of breath, and pleuritic chest pain. Code Status: Full. History Of Present Illness: The patient is a 67-year-old female with past medical history of diabete s, insulin requiring; coronary artery disease; COPD, non-oxygen dependent; hypertension; chronic pain syndrome; liver cirrhosis; hepatitis C; history of CVA; sleep apnea and morbid obesity, comes in wit h sudden onset of pleuritic chest pain along with worsening cough and sputum production. The patient states that she has been taking her nebulizer treatments, which have not helped. The patient does r eport ill contacts, specifically her nephew who was sick with similar upper respiratory tract infecti on. The patient denies any fevers or chills. She does report pain all over her body, worsening pain with movement, deep breath, specifically around the right flank. The patient's symptoms are constan t, moderate, and progressively worsening. Therefore, the patient came into the ER for further evalua tion. Upon arrival, the patient was afebrile, heart rate was elevated. She was tachypneic. Blood p ressure was stable. Her workup revealed normal white blood cell count. Procalcitonin was negative. Her chest x-ray was negative as well. The patient was then referred for admission for COPD exacerba tion. The patient did have some hypoxia, but improved to 93% with supplemental oxygen via nasal nicole mimi. When seen in the ER, the patient was awake, alert, and oriented x3, in some mild distress due t o pain. Past Medical History: COPD; coronary artery disease; diabetes mellitus type 2, insulin requiring; hy pertension; chronic pain syndrome; liver cirrhosis; fatty liver disease; hepatitis C; chronic thrombo cytopenia; history of CVA; morbid obesity and obstructive sleep apnea. Past Surgical History: Right knee surgery, cholecystectomy, and hysterectomy. Allergies: TO ZOFRAN CAUSES HIVES AND RASH. PENICILLIN CAUSES ITCHING. DARVOCET CAUSES NAUSEA AND VOMITING. TORADOL CAUSES HIVES AND RASH. CODEINE CAUSES NAUSEA AND VOMITING. ACETAMINOPHEN ALSO CA USES NAUSEA AND VOMITING. DEMEROL IS ALSO LISTED AN ALLERGY. Medications: List reviewed. Social History: The patient denies smoking. No alcohol use or illicit drug use. The patient lives at home, independent in her activities of daily living. Has good social support. Family History: Father has colon cancer. Mother has lung disease and lung cancer. Review of Systems: An 11-point system reviewed, negative except as per HPI. Physical Examination: Vital Signs: Blood pressure 122/78, respirations 25, O2 100% on 3 L via nasal cannula, temperature 9 7.7, and heart rate 122. General: Awake, alert, and oriented x3. Some moderate distress due to pain and respiratory symptoms . Elderly female, obese, ill-appearing. HEENT: Normocephalic, atraumatic. PERRLA. EOMI. Moist mucous membranes. Oropharynx is clear. Po or dentition. Conjunctivae anicteric. Neck: Supple. No JVD. Trachea midline. CV: S1, S2. Sinus tachycardia. No murmurs. Peripheral pulses present. Respiratory: Diminished breath sounds. Some wheezing heard. The patient is tachypneic with use of accessory muscles. Gastrointestinal: Abdomen is soft, nontender, and nondistended. Positive bowel sounds. No guarding or rigidity. Extremities: No clubbing, cyanosis. Trace pedal edema. No calf tenderness. Neuro: Cranial nerves 2-12 intact grossly. No focal neurological deficit. Speech is normal. Skin: No rashes. Normal skin turgor. Laboratory Data: Sodium 141, potassium 3.3, chloride 106, CO2 28, BUN 11, creatinine 0.7, glucose 14 4, and calcium 8.9. Troponin less than 0.02. BNP 8. Procalcitonin less than 0.05. WBC 7.7, H and H 13.8 and 40.8, platelets 74, and neutrophils 80%. UA, negative. Influenza screen is also negative . Chest x-ray shows no acute abnormalities. Assessment And Plan: A 67-year-old female with: 1.Acute COPD exacerbation with hypoxia. Continue supplemental oxygen, IV steroids and nebulizer ismael atments. Chest x-ray is negative. WBC count is normal. We will continue to monitor closely. 2.Diabetes mellitus type 2, insulin requiring, with hyperglycemia. Continue sliding scale insulin. Resume home medications as appropriate. 3.Essential hypertension, stable. We will resume home meds once reconciled. 4.Chronic pain syndrome. The patient is asking for pain medication. The patient is chronic narcoti c dependent. 5.Coronary artery disease, lyt[place] artery, lytton heart without angina, stable. 6.Pleuritic chest pain, likely related to possibly developing pneumonia versus pleurisy. 7.History of hepatitis C without coma. 8.Chronic liver disease with cirrhosis and fatty liver disease. 9.Morbid obesity. 10.Obstructive sleep apnea. Admit the patient to Med-Surg, place as inpatient with remote cardiac telemetry. Length of stay is g reater than 2 midnights. COURTNEY Voice ID: [id number]
[2018-03-30 06:00] LABS: Absolute Lymphocytes (CBC) 0.5 K/uL (0.7-4.9); Absolute Monocytes 0.1 K/uL (0.1-1.3); Absolute Neutrophil 6.8 K/uL (1.8-8.0); Basophils % 0.2 % (0-1.3); Hematocrit 35.1 % (36.0-45.0); Lymphocytes % 6.3 % (15.3-44.8); MCV 85.7 fL (80-100); MPV 9.7 fL (7.6-11.3); Monocytes % 1.3 % (3.3-12.3)
[2018-03-30 06:11] LABS: Potassium 4.3 mmol/L (3.5-5.1)
[2018-03-30] MEDS: INSULIN DEGLUDEC SQ SCH (08:00)
[2018-03-30] MEDS: INSULIN -REGULAR HUMAN 50 UNIT/0.5 ML ML SQ SCH ×4 (08:36→20:53)
[2018-03-30] MEDS: cloNIDine HCl 0.1 MG TAB PO SCH ×2 (08:37→20:52)
[2018-03-30] MEDS: ALPRAZOLAM 1 MG TABLET PO SCH ×3 (08:38→20:53)
[2018-03-30] MEDS: PANTOPRAZOLE 40MG TABLET PO SCH ×2 (08:38→16:51)
[2018-03-30] MEDS: MONTELUKAST 10 MG TAB PO SCH (08:38)
[2018-03-30] MEDS: BENZONATATE 100 MG CAP PO PRN (09:50)
--- NOTE | 2018-03-30 14:55 | PN ---
Date of Progress Note: 03/30/2018 History: The patient seen and examined. Chart reviewed and case discussed with RN. The patient is still having significant amount of cough and shortness of breath. She is on supplemental oxygen. Medications: List reviewed. Physical Examination: Vital Signs: Temperature 97, heart rate 132, blood pressure 133/67, respirations 20, O2 93% on 2 L v ia nasal cannula. General: Awake, alert, oriented x3. Some mild distress, ill-appearing female, obese. CV: S1, S2. Sinus tachycardia. Peripheral pulses present. Respiratory: Diminished breath sounds. Wheezing heard throughout. The patient is slightly tachypne ic. No stridor. Gastrointestinal: Abdomen is soft, nontender, nondistended. Positive bowel sounds. Extremities: No clubbing, cyanosis. Trace pedal edema. Neurologic: Nonfocal. Laboratory Data: Sodium 140, potassium 4.3, chloride 108, CO2 24, BUN 15, creatinine 0.8, glucose 18 3, calcium 8.5. WBC 7.4, H and H 11.9 and 35.1, platelets 100, neutrophils 92%. Blood cultures no g rowth to date. Assessment And Plan: 1.Acute chronic obstructive pulmonary disease exacerbation with hypoxia. We will continue supplemen casey oxygen. Continue IV steroids and nebulizer treatments. The patient having significant amount of cough. We will add Ravindra Barcenas to the Robitussin A-C. Consult Pulmonology. 2.Diabetes mellitus type 2, insulin requiring with hyperglycemia. Continue sliding scale insulin. 3.Essential hypertension, stable. 4.Chronic pain syndrome. We will adjust pain medications. 5.Coronary artery disease, [place] artery and [place] heart without angina, stable. 6.Pleuritic chest pain, improving. 7.History of hepatitis C without coma. 8.Chronic liver disease with cirrhosis. 9.History of fatty liver disease, stable. 10.Obesity, BMI 38. 11.Obstructive sleep apnea. We will have the patient bring her CPAP from home to use overnight. Plan: Continue current treatment. Consult Pulmonology. Await culture results. /USAMA Voice ID: [id number] Report ID: [id number]
[2018-03-30] MEDS: ENOXAPARIN 40 MG/0.4 ML SQ SCH (16:52)
[2018-03-30 19:49] VITALS: BMI 38.4
[2018-03-30] MEDS: QUETIAPINE 100MG TAB PO SCH (20:51)
[2018-03-30] MEDS: DULERA 200/5 (MOMETASONE/FORMOTEROL) INHALER IH SCH (20:52)
[2018-03-30] MEDS ORDERED: QUETIAPINE FUMARATE 800 MG PO SCH (21:00)
[2018-03-31] MEDS: METHYLPREDNISOLONE 40 MG INJ IV SCH ×3 (01:00→17:02)
[2018-03-31] MEDS: MORPHINE 2 MG/ML SYR IV PRN ×5 (01:00→23:47)
[2018-03-31] MEDS: BENZONATATE 100 MG CAP PO PRN (01:04)
[2018-03-31 05:14] LABS: Absolute Lymphocytes (CBC) 0.5 K/uL (0.7-4.9); Absolute Monocytes 0.1 K/uL (0.1-1.3); Absolute Neutrophil 5.6 K/uL (1.8-8.0); Basophils % 0.1 % (0-1.3); Eosinophils % 0.2 % (0-4.4); Hematocrit 36.1 % (36.0-45.0); Lymphocytes % 8.3 % (15.3-44.8); MCH 28.9 pg (27.0-35.0); MPV 9.7 fL (7.6-11.3); Monocytes % 2.4 % (3.3-12.3); RBC Red Blood Cell Count 4.15 M/uL (3.86-4.86)
[2018-03-31 05:31] LABS: Potassium 4.5 mmol/L (3.5-5.1)
[2018-03-31] MEDS: INSULIN DEGLUDEC SQ SCH (08:00)
[2018-03-31] MEDS: INSULIN -REGULAR HUMAN 50 UNIT/0.5 ML ML SQ SCH ×4 (08:44→21:06)
[2018-03-31] MEDS: DULERA 200/5 (MOMETASONE/FORMOTEROL) INHALER IH SCH ×2 (08:45→20:42)
[2018-03-31] MEDS: cloNIDine HCl 0.1 MG TAB PO SCH ×2 (08:45→20:41)
[2018-03-31] MEDS: MONTELUKAST 10 MG TAB PO SCH (08:45)
[2018-03-31] MEDS: PANTOPRAZOLE 40MG TABLET PO SCH ×2 (08:45→17:01)
[2018-03-31] MEDS: GUAIFENESIN/CODEINE 5ML UCUP PO PRN ×2 (08:46→20:57)
[2018-03-31] MEDS: ALPRAZOLAM 1 MG TABLET PO SCH ×3 (08:46→20:42)
--- NOTE | 2018-03-31 12:01 | P.CNS ---
Date of Consult: 03/31/18 Chief Complaint: Shortness of breath History of Present Illness: Patient is 67 years of age with a history of asthma uses Breo and Combivent on a p.r.n. basis has become worse over the past 4 days complaining of worsening shortness of breath, wheezing and a barking cough this never smoked test no significant change since admission denies any fever or chills Allergies ketorolac Allergy (Severe, Verified 05/15/14 01:15) Hives/Rash ketorolac tromethamine [From Toradol] Allergy (Mild, Verified 03/14/12 17:55) Hives/Rash Penicillins Allergy (Mild, Verified 03/14/12 17:55) Itching propoxyphene napsylate [From Darvocet-N 100] Allergy (Mild, Verified 05/19/13 00 :28) Nausea/Vomiting Home Medications: ALPRAZolam [Xanax*] 2 mg PO TID 08/03/16 Clonidine HCl [Catapres*] 0.2 mg PO BID 03/25/17 Insulin Degludec [Tresiba Flextouch U-200] 85 units SQ DAILY WITH BREAKFAST 11/02 Ipratropium/Albuterol Sulfate [Combivent Respimat 20-100 Mcg] 20 mcg IH QID PRN 03/25/17 Montelukast [Singulair*] 10 mg PO DAILY 03/25/17 Quetiapine Fumarate [Seroquel] 800 mg PO BEDTIME 03/25/17 Pantoprazole [Protonix Tab*] 40 mg PO BIDAC #60 tab 04/15/17 - Past Medical/Surgical History Diabetic: Yes -: CAD -: COPD -: Diabetes mellitus type 2 -: Hypertension -: Chronic pain syndrome -: Liver cirrhosis, fatty liver -: Chronic thrombocytopenia -: Hepatitis-C -: History CVA -: Morbid obesity -: Obstructive sleep apnea -: Right knee surgery -: Cholecystectomy -: Hysterectomy Psychosocial/ Personal History: The patient is single. She has 3 children. She currently lives with her granddaughter. - Family History Father Medical History: Cancer Mother Medical History: Lung disease, Cancer, Other (see notes) Notes: brain cancer - Social History Smoking Status: Never smoker Alcohol use: No CD- Drugs: No Caffeine use: Yes Place of Residence: Home Review of Systems 10-point ROS is otherwise unremarkable General: Weakness Respiratory: Cough, Shortness of Breath Cardiovascular: Chest Pain (Pain is mostly on the right side from the coughing) Physical Examination Temp Pulse Resp BP Pulse Ox 96.9 F 95 H 20 142/73 H 95 03/31/18 08:00 03/31/18 08:00 03/31/18 08:00 03/31/18 08:00 03/31/18 08:00 General: Alert, Moderate distress HEENT: Atraumatic Respiratory: Expiratory wheezes Cardiovascular: No edema, Regular rate/rhythm, Normal S1 S2 Gastrointestinal: Normal bowel sounds, Soft and benign Musculoskeletal: No clubbing, No swelling - Problems (1) COPD exacerbation Onset Date: 05/15/14 Current Visit: No Status: Acute Plan: Patient is 67 years of age admitted with worsening cough congestion shortness of breath patient has never smoked not sure if she has underlying asthma or COPD has not followed up with me for a long time no evidence of sepsis continue with bronchodilators and steroids for now vital signs stable oxygenation satisfactory I have also added some Zithromax patient to resume her Breo and Combivent at home and follow probably discharge home tomorrow with low-dose prednisone 10 twice a day for 10 days and continue with Zithromax for another 5
[2018-03-31] MEDS: AZITHROMYCIN 250 MG TAB PO SCH (13:41)
[2018-03-31] MEDS ORDERED: FUROSEMIDE 40 MG/4 ML VIAL IV ONE (13:48)
[2018-03-31] MEDS: ENOXAPARIN 40 MG/0.4 ML SQ SCH (17:01)
--- NOTE | 2018-03-31 19:05 | PN ---
Date of Progress Note: 03/31/2018 History: The patient seen and examined. Chart reviewed and case discussed with RN and Dr. Chowdhury. The patient continues to have significant amount of cough, however, states her breathing is somewha t better. Medications: List reviewed. Physical Examination: Vital Signs: Temperature 96.9, heart rate 94, blood pressure 146/74, respirations 20, O2 97% on room air. General: Awake, alert, oriented x3. Some mild distress. Elderly female, ill-appearing, obese. CV: S1, S2. Regular rate and rhythm. Peripheral pulses present. RESPIRATORY: Diminished breath sounds. Diffuse wheezing is heard. Slightly tachypneic. No use of accessory muscles. GASTROINTESTINAL: Abdomen is soft, nontender, nondistended. Positive bowel sounds. Extremities: No clubbing, cyanosis. Mild pedal edema. Neurologic: Nonfocal. Laboratory Data: Sodium 139, potassium 4.5, chloride 106, CO2 29, BUN 20, creatinine 0.8, glucose 21 4, calcium 8.8. WBC 6.3, H and H 12 and 36, platelets 101, neutrophils 89%. Assessment And Plan: A 67-year-old female with: 1.Acute chronic obstructive pulmonary disease exacerbation with hypoxia. We will continue supplemen casey oxygen. Continue IV steroids and nebulizer treatments. Inhalers have been adjusted. Appreciate Dr. Chowdhury's input. 2.Diabetes mellitus type 2, insulin requiring with hyperglycemia. We will continue sliding scale in sulin. Monitor Accu-Cheks. 3.Essential hypertension, stable. Resume home medications. 4.Chronic pain syndrome. 5.Coronary artery disease, [place] artery and [place] heart without angina, stable. 6.Pleuritic chest pain, improving, likely secondary to pulmonary issues. 7.History of hepatitis C without coma, stable. 8.Chronic liver disease with cirrhosis, stable. We will continue with fluid restriction and sodium restriction. 9.History of fatty liver disease, stable. 10.Obesity, BMI 38. 11.Obstructive sleep apnea. Continue CPAP overnight. Plan: Likely discharge in a.m. Follow up on cultures. SA/MODL Voice ID: [id number] Report ID: [id number]
[2018-03-31] MEDS: QUETIAPINE 100MG TAB PO SCH (20:42)
[2018-04-01] MEDS: METHYLPREDNISOLONE 40 MG INJ IV SCH ×3 (01:05→16:31)
[2018-04-01] MEDS: INSULIN DEGLUDEC SQ SCH (08:00)
[2018-04-01] MEDS: INSULIN -REGULAR HUMAN 50 UNIT/0.5 ML ML SQ SCH ×4 (08:28→21:10)
[2018-04-01] MEDS: PANTOPRAZOLE 40MG TABLET PO SCH ×2 (08:29→16:31)
[2018-04-01] MEDS: MONTELUKAST 10 MG TAB PO SCH (08:29)
[2018-04-01] MEDS: cloNIDine HCl 0.1 MG TAB PO SCH ×2 (08:29→21:09)
[2018-04-01] MEDS: AZITHROMYCIN 250 MG TAB PO SCH (08:29)
[2018-04-01] MEDS: MORPHINE 2 MG/ML SYR IV PRN ×3 (08:30→22:19)
[2018-04-01] MEDS: ALPRAZOLAM 1 MG TABLET PO SCH ×3 (08:30→21:08)
[2018-04-01] MEDS: DULERA 200/5 (MOMETASONE/FORMOTEROL) INHALER IH SCH ×2 (08:32→21:08)
[2018-04-01] MEDS: ENOXAPARIN 40 MG/0.4 ML SQ SCH (16:31)
[2018-04-01] MEDS: GUAIFENESIN/CODEINE 5ML UCUP PO PRN (17:16)
[2018-04-01] MEDS: QUETIAPINE 100MG TAB PO SCH (21:09)
--- NOTE | 2018-04-01 22:54 | PN ---
Date of Progress Note: 04/01/2018 Subjective: The patient was seen and examined. Chart reviewed and case discussed with RN and Dr. Rich coleman. The patient is still having significant amount of cough. Now off supplemental oxygen. Medications: List reviewed. Physical Examination: Vital Signs: Temperature 97, heart rate 88, blood pressure 164/77, respirations 20, and O2 93% on ro om air. General: Awake, alert, and oriented x3, in mild distress. Elderly female, ill-appearing, obese. CV: S1, S2. Regular rate and rhythm. Peripheral pulses present. No murmurs. Respiratory: Diminished breath sounds with mild wheezing heard. Gastrointestinal: Abdomen is soft, nontender, and nondistended. Positive bowel sounds. No guarding or rigidity. Extremities: No clubbing, cyanosis. Trace pedal edema. Neurologic: Nonfocal. Laboratory Data: Labs are pending. Blood cultures, no growth to date. Assessment And Plan: A 67-year-old female with: 1.Acute COPD exacerbation with hypoxia, now off supplemental oxygen. We will continue nebulizer ismael atments and steroids. The patient is on Zithromax. Appreciate Dr. Chowdhury's input. 2.Diabetes mellitus type 2, insulin requiring with hyperglycemia. We will continue sliding scale in sulin and Accu-Cheks. 3.Essential hypertension, stable on home medications. 4.Chronic pain syndrome. 5.Coronary artery disease, [place] artery and [place] heart without angina, stable. 6.Pleuritic chest pain, improved. The patient does have some musculoskeletal pain from significant amount of cough. 7.History of hepatitis C without coma, stable. 8.Chronic liver disease with cirrhosis, stable. Continue sodium restriction. 9.History of fatty liver disease. 10.Obesity, BMI 38. 11.Obstructive sleep apnea. Continue CPAP at night. Continue to monitor closely. Likely discharge in the next 24 hours if continues to improve. SA/MODL Voice ID: [id number] Report ID: [id number]
[2018-04-02] MEDS: METHYLPREDNISOLONE 40 MG INJ IV SCH ×2 (00:18→08:29)
[2018-04-02] MEDS: PANTOPRAZOLE 40MG TABLET PO SCH (05:00)
[2018-04-02] MEDS: MORPHINE 2 MG/ML SYR IV PRN (05:00)
[2018-04-02 05:59] VITALS: BP 152/85; TEMP 96.3
[2018-04-02] MEDS: INSULIN -REGULAR HUMAN 50 UNIT/0.5 ML ML SQ SCH (07:30)
[2018-04-02] MEDS: INSULIN DEGLUDEC SQ SCH (08:00)
[2018-04-02] MEDS: AZITHROMYCIN 250 MG TAB PO SCH (08:29)
[2018-04-02] MEDS: MONTELUKAST 10 MG TAB PO SCH (08:29)
[2018-04-02] MEDS: ALPRAZOLAM 1 MG TABLET PO SCH (08:29)
[2018-04-02] MEDS: cloNIDine HCl 0.1 MG TAB PO SCH (08:30)
[2018-04-02] MEDS: DULERA 200/5 (MOMETASONE/FORMOTEROL) INHALER IH SCH (08:30)
--- NOTE | 2018-04-02 09:54 | P.PN ---
Subjective Date of Service: 04/02/18 Chief Complaint: Shortness of breath Subjective: Improving (Patient is doing much better cough has subsided) Review of Systems General: Malaise Respiratory: Cough, Shortness of Breath Physical Examination - Vital Signs Temperature: 96.3 F Blood Pressure: 152/85 Pulse: 77 Respirations: 16 Pulse Ox (%): 96 - Physical Exam General: Alert, In no apparent distress, Oriented x3 Respiratory: Clear to auscultation bilaterally Cardiovascular: No edema, Normal S1 S2 Assessment & Plan - Problems (Diagnosis) (1) COPD exacerbation Onset Date: 05/15/14 Current Visit: No Status: Acute Plan: Patient is doing much better can be discharged home on low-dose prednisone 10 mg twice a day for 7 days she has to take either the Breo out the Symbicort at home added add Incruse 1 puff daily also patient to get promethazine with codeine discharge today follow up with me in 2 weeks follow with me in 2 weeks
[2018-04-02 10:47] VITALS: O2SAT 98
--- NOTE | 2018-04-02 20:10 | DS ---
Date of Discharge: 04/02/2018 Consultants: Dr. Chowdhury with Pulmonology. Admitting Diagnoses: 1.Acute chronic obstructive pulmonary disease exacerbation with hypoxia. 2.Diabetes mellitus type 2, insulin requiring with hyperglycemia. 3.Essential hypertension. 4.Chronic pain syndrome. 5.Coronary artery disease, [place] artery and [place] heart without angina. 6.Pleuritic chest pain. 7.History of hepatitis C without coma. 8.Chronic liver disease with cirrhosis. 9.Morbid obesity. 10.Obstructive sleep apnea. Discharge Diagnoses: 1.Acute chronic obstructive pulmonary disease exacerbation with hypoxia, improved. 2.Diabetes mellitus type 2, insulin requiring with hyperglycemia. 3.Essential hypertension, stable. 4.Chronic pain syndrome. 5.Coronary artery disease, [place] artery and [place] heart without angina, stable. 6.Pleuritic chest pain, resolved. Likely musculoskeletal pain from cough. 7.History of hepatitis C without coma. 8.Chronic liver disease with cirrhosis. 9.Obesity, BMI of 38. 10.Obstructive sleep apnea. Hospital Course: The patient is a 67-year-old female with past medical history of diabetes, heart di sease, COPD, non-oxygen dependent, chronic pain syndrome, hypertension, liver cirrhosis, morbid obesi ty, sleep apnea, comes in with sudden onset of pleuritic chest pain with worsening cough and shortnes s of breath. The patient was found to be having COPD exacerbation. Her chest x-ray was clear, did n ot show any infiltrates. Her influenza screen was also negative. Her white count was normal. The p atient was started on nebulizer treatments and IV steroids. The patient was seen by [employer] erp developer, Patricio Chowdhury. The patient did have significant amount of cough. She was given cough syrup as well as Tessalon Perles. The patient overall did well. She was able to ambulate without getting too short of breath. Her supplemental oxygenation was able to be weaned off. Her cough eventually did improve . She was given prophylactic antibiotics for bronchitis. Her blood cultures remained negative. The patient was then cleared for discharge from Dr. Chowdhury's standpoint. She was sent home in a stabl e condition. Activity: No strenuous activity. Diet: Diabetic, fluid restricted, 2 g sodium restricted diet. Followup: Follow up with PCP in 2-3 days. Follow up with [employer] erp developer, Dr. Chowdhury in 2 weeks. R eturn to ER for worsening condition. Medications: As per medication reconciliation list. Physical Examination: General: Awake, alert, oriented x3. No acute distress. Elderly female, obese. CV: S1, S2. No murmurs. Peripheral pulses present. Respiratory: Diminished breath sounds significantly improved. Minimal wheezing. Gastrointestinal: Abdomen is soft, nontender, nondistended. Positive bowel sounds. Extremities: No clubbing or cyanosis. Trace pedal edema. Neurologic: Nonfocal. Total time spent discharging the patient was 35 minutes. /USAMA Voice ID: [id number] Report ID: [id number]
[2018-04-02] MEDS ORDERED: predniSONE 20 MG TAB PO SCH (21:00)
== END 2018-04-02 11:04 | disposition home or self-care (01) | DRG 192 ==
LOC: ER 09:22 → ERHOLD 14:16 → 2ND 16:12
PROVIDERS: ADMIT Family Medicine; ATTEND Family Medicine
DX: J44.1 Chronic obstructive pulmonary disease with (acute) exacerbation (principal); E11.65 Type 2 diabetes mellitus with hyperglycemia; Z79.4 Long term (current) use of insulin; G89.4 Chronic pain syndrome; I25.10 Atherosclerotic heart disease of native coronary artery without angina pectoris; B19.20 Unspecified viral hepatitis C without hepatic coma; K74.60 Unspecified cirrhosis of liver; Z68.38 Body mass index [BMI] 38.0-38.9, adult; G47.33 Obstructive sleep apnea (adult) (pediatric); Z88.0 Allergy status to penicillin; Z88.8 Allergy status to other drugs, medicaments and biological substances; K76.0 Fatty (change of) liver, not elsewhere classified; D69.6 Thrombocytopenia, unspecified; Z86.73 Personal history of transient ischemic attack (TIA), and cerebral infarction without residual deficits; E66.01 Morbid (severe) obesity due to excess calories; I10 Essential (primary) hypertension
CPT/HCPCS: 36415; 71045; 80048; 81003; 82962; 83880; 84145; 84484; 85025; 87040; 87804; 93005; 94640; 94660; 94760; 97163; 99285; J1650; J1940; J2175; J2270; J2405; J2920; J2930; J7606

== ENCOUNTER 2018-09-05 10:13 | Observation (INO) | payer OTHER ==
--- OUTSIDE RECORDS SUMMARY | 2018-09-05 10:29 | XMS REPORT ---
:1950 [facility] Address [address] [place] [address] Dr. Melo [address] [place] [id number] Care Team Providers Name Role Phone Unavailable Unavailable Unavailable Problems This patient has no known problems. Allergies, Adverse Reactions, Alerts This patient has no known allergies or adverse reactions. Medications This patient has no known medications.
[2018-09-05 11:02] LABS: Absolute Lymphocytes (CBC) 1.1 K/uL (0.7-4.9); Absolute Monocytes 0.4 K/uL (0.1-1.3); Basophils % 0.4 % (0-1.3); Eosinophils % 1.8 % (0-4.4); Hematocrit 41.9 % (36.0-45.0); Lymphocytes % 19.5 % (15.3-44.8); MPV 9.7 fL (7.6-11.3)
[2018-09-05] MEDS ORDERED: LIDOCAINE VISCOUS 2% SOLN 15 ML UDC ONE (11:20)
[2018-09-05] MEDS ORDERED: MORPHINE 4 MG/ML SYR ONE ×2 (11:20→14:04)
[2018-09-05] MEDS ORDERED: MAGNE/ALUM HYDROXD 30 ML UCUP ONE (11:20)
[2018-09-05] MEDS ORDERED: FAMOTIDINE 20 MG/2 ML VIAL IV ONE (11:20)
[2018-09-05] MEDS ORDERED: PROMETHAZINE 25 MG/ML VIAL ONE (11:20)
[2018-09-05] MEDS ORDERED: NA CHLORIDE 0.9% 1,000 ML ONE (11:21)
[2018-09-05 11:22] LABS: ALT/SGPT 29 U/L (12-78); AST/SGOT 44 U/L (15-37); Albumin 3.9 g/dL (3.4-5.0); Alkaline Phosphatase 205 U/L (45-117); BUN Blood Urea Nitrogen 9 mg/dL (7-18); Bicarbonate 24 mmol/L (21-32); Bilirubin Direct 0.2 mg/dL (0-0.2); Bilirubin Total 0.5 mg/dL (0.2-1.0); Glucose Level 324 mg/dL (74-106); Lipase 82 U/L (73-393); Potassium 4.4 mmol/L (3.5-5.1); Protein, Total 8.3 g/dL (6.4-8.2); Sodium Level 135 mmol/L (136-145); Troponin I < 0.02 ng/mL (0.0-0.045)
[2018-09-05] MEDS ORDERED: CEFTRIAXONE/SWI 1gm 1 GM/10 ML SYR ONE (11:56)
[2018-09-05] MEDS ORDERED: METRONIDAZOLE 500mg IVPB 500 MG/100 ML BAG IV ONE (11:56)
--- NOTE | 2018-09-05 12:22 | RAD REPORT ---
EXAM DESCRIPTION: CT - Abdomen Pelvis W Contrast - 09/05/2018 12:02 pm CLINICAL HISTORY: Abdominal pain./upper abdominal pain COMPARISON: 2016 TECHNIQUE: Computed axial tomography of the abdomen and pelvis was obtained. 100 cc Isovue-300 is ad ministered intravenously. Oral contrast was given. All CT scans are performed using dose optimization technique as appropriate and may include automated exposure control or mA/KV adjustment according to patient size. FINDINGS: A cirrhotic liver contains fatty infiltration. The density of the liver has become very inhomogeneous . Small cysts are present. Portal vein is distended. The spleen is mildly enlarged. Small calcified splenic arterial aneurysm unchanged. Cholecystectomy. Mild prominence of the biliary tree unchanged Pancreas, adrenals and kidneys appear unremarkable. Normal appendix. Diverticula stem from the colon without evidence of diverticulitis. IMPRESSION: Cirrhosis with fatty infiltration of the liver. The density of the liver has become inhomogeneous. This may all be secondary to a combination of infl ammation and regenerating nodules. Underlying neoplasm although possible is probably less likely. Fur ther evaluation with MRI recommended
--- NOTE | 2018-09-05 12:23 | ER ---
Nurse's Notes [facility] Name: Sheila Vila Age: 67 yrs Sex: Female : 1950 Arrival Date: 09/05/2018 Time: 10:15 Bed 6 Private MD: Diagnosis: Vomiting Presentation: 09/05 10:24 Presenting complaint: Patient states: upper abd pain described as burning. pt also c/o aa5 nausea and vomiting. Symptoms began Wednesday, denies diarrhea. Pt also c/o headache. Transition of care: patient was not received from another setting of care. Onset of symptoms was August 2018. Risk Assessment: Do you want to hurt yourself or someone else? Patient reports no desire to harm self or others. Care prior to arrival: None. 10:24 Method Of Arrival: Wheelchair aa5 10:24 Acuity: SYLVESTER 3 aa5 10:35 Initial Sepsis Screen: Does the patient meet any 2 criteria? HR > 90 bpm. Does the hj patient have a suspected source of infection? Yes:. Triage Assessment: 10:35 General: Appears in no apparent distress. uncomfortable, Behavior is calm, cooperative, hj appropriate for age. Pain: Complains of pain in abdomen. GI: Reports upper abdominal pain, nausea. Historical: - Allergies: 10:25 Darvocet-N 100; aa5 10:25 PENICILLINS; aa5 10:25 PROPOXYPHENE; aa5 10:25 Toradol; aa5 - PMHx: 10:25 Asthma; Cirrhosis; COPD; Diabetes - IDDM; Hepatitis; resolved; Hypertension; aa5 Pancreatitis; Pneumonia; - PSHx: 10:25 Knee surgery; Hysterectomy; Cholecystectomy; aa5 - Immunization history:: Flu vaccine is up to date. - Social history:: Smoking status: Patient/guardian denies using tobacco, Patient/guardian denies using alcohol, street drugs, The patient lives with family. - Ebola Screening: : No symptoms or risks identified at this time. - Family history:: not pertinent. Screenin:35 Abuse screen: Denies threats or abuse. Denies injuries from another. Nutritional hj screening: No deficits noted. Tuberculosis screening: No symptoms or risk factors identified. Fall Risk None identified. Assessment: 10:35 GI: Bowel sounds present X 4 quads. Abd is soft Abdomen is tender to palpation. hj 11:38 Reassessment: Patient and/or family updated on plan of care and expected duration. Pain hj level reassessed. Patient is alert, oriented x 3, equal unlabored respirations, skin warm/dry/pink. awaiting CT and POC:. 12:30 Reassessment: Patient and/or family updated on plan of care and expected duration. Pain hj level reassessed. Patient is alert, oriented x 3, equal unlabored respirations, skin warm/dry/pink. awaiting room placement;. 13:30 Reassessment: Patient and/or family updated on plan of care and expected duration. Pain hj level reassessed. Patient is alert, oriented x 3, equal unlabored respirations, skin warm/dry/pink. awaiting for room placement;. 14:18 Reassessment: Patient and/or family updated on plan of care and expected duration. Pain hj level reassessed. Patient is alert, oriented x 3, equal unlabored respirations, skin warm/dry/pink. awaiting room placement;. Vital Signs: 10:26 BP 143 / 97; Pulse 103; Resp 16 S; Temp 98.3(TE); Pulse Ox 100% on R/A; Weight 95.71 kg aa5 (R); Height 5 ft. 4 in. (162.56 cm) (R); Pain 9/10; 10:34 BP 160 / 113; Pulse 111; Resp 18; Pulse Ox 100% on R/A; hj 11:37 BP 132 / 76; Pulse 84; Resp 18; Pulse Ox 100% on R/A; hj 12:18 BP 126 / 98; Pulse 109; Resp 18; Pulse Ox 100% on R/A; hj 14:19 BP 118 / 95; Pulse 90; Resp 18; Pulse Ox 100% on R/A; hj 10:26 Body Mass Index 36.22 (95.71 kg, 162.56 cm) aa5 ED Course: 10:15 Patient arrived in ED. as 10:24 Olamide Garcia MD is Attending Physician. ma2 10:24 Benedict Elizabeth, VIOLETTE is Primary Nurse. hj 10:24 Triage completed. aa5 10:24 Arm band placed on Patient placed in an exam room, on a stretcher. aa5 10:36 Patient has correct armband on for positive identification. Placed in gown. Bed in low hj position. Call light in reach. Side rails up X 1. 11:20 Initial lab(s) drawn, by me, sent to lab. Inserted saline lock: 18 gauge in right hj antecubital area, using aseptic technique. Blood collected. 12:02 CT Abd/Pelvis - W/Contrast In Process Unspecified. EDMS 12:22 Kimberly Black MD is Hospitalizing Provider. [facility] 14:33 No provider procedures requiring assistance completed. Patient admitted, IV remains in hj place. intact. Administered Medications: 11:20 Drug: NS 0.9% 1000 ml Route: IV; Rate: 1 bolus; Site: right antecubital; hj 12:51 Follow up: IV Status: Completed infusion; IV Intake: 1000ml hj 11:20 Drug: morphine 4 mg Route: IVP; Site: right antecubital; hj 11:36 Follow up: Response: No adverse reaction hj 11:37 Follow up: Response: Pain is decreased hj 11:20 Drug: Phenergan 25 mg Route: IVP; Site: right antecubital; hj 11:36 Follow up: Response: No adverse reaction; Nausea is decreased hj 11:20 Drug: Pepcid 20 mg Route: IVP; Site: right antecubital; hj 11:36 Follow up: Response: No adverse reaction hj 11:20 Drug: GI Cocktail without - (Maalox Suspension 30 ml, Lidocaine Liquid 2 % 15 hj ml) Route: PO; 11:35 Follow up: Response: No adverse reaction hj 11:30 Drug: Rocephin 1 grams Route: IV; Rate: calculated rate; Site: right upper arm; hj 11:40 Follow up: Response: No adverse reaction; IV Status: Completed infusion; IV Intake: 10mlhj 12:05 Drug: Reglan 10 mg Route: IVP; Site: right upper arm; hj 12:16 Follow up: Response: No adverse reaction; Nausea is decreased hj 12:11 Drug: Flagyl 500 mg Volume: 100 ml; Route: IVPB; Rate: 200 ml/hr; Infused Over: 30 hj mins; Site: right upper arm; 12:50 Follow up: IV Status: Completed infusion; IV Intake: 100ml hj 13:49 Drug: morphine 4 mg Route: IVP; Site: right upper arm; hj 14:26 Follow up: Response: No adverse reaction; Pain is decreased ashley Point of Care Testing: Blood Glucose: 10:34 Blood Glucose: 305 mg/dL; ashley Ranges: Intake: 11:40 IV: 10ml; Total: 10ml. hj 12:50 IV: 100ml; Total: 110ml. hj 12:51 IV: 1000ml; Total: 1110ml. hj Outcome: 12:23 Decision to Hospitalize by Provider. ma2 14:34 Admitted to Tele accompanied by tech, via stretcher, room 411, with chart, Report hj called to VIOLETTE Wahl 14:34 Condition: stable 14:34 Instructed on the need for admit, Demonstrated understanding of instructions. 14:41 Patient left the ED. ashley Signatures: Dispatcher [employer] Tosha Armenta Audri, RN RN aa5 Benedict Elizabeth RN RN hj Alzahri, Mohammad, MD MD ma2
--- NOTE | 2018-09-05 12:23 | EDPHYS ---
Physician Documentation [facility] Name: Sheila Vila Age: 67 yrs Sex: Female : 1950 Arrival Date: 09/05/2018 Time: 10:15 Bed 6 Private MD: ED Physician Olamide Garcia HPI: 09/05 11:27 This 67 yrs old Black Female presents to ER via Wheelchair with complaints of Abdominal ma2 Pain, Headache, Vomiting. 11:27 This 67 yrs old Black Female presents to ER via Wheelchair with complaints of Abdominal ma2 Pain, Headache, Vomiting. 11:27 The patient complains of pain to the forehead. Onset: The symptoms/episode ma2 began/occurred gradually, 2 day(s) ago. Associated signs and symptoms: Pertinent positives: epigastric abdominal pain and vomiting, started having headache 2 days ago gradual . Severity of symptoms: At its worst the pain was mild. Headache History: The patient has had previous headaches and this one is similar to previous episodes. The patient has experienced similar episodes in the past. Historical: - Allergies: 10:25 Darvocet-N 100; aa5 10:25 PENICILLINS; aa5 10:25 PROPOXYPHENE; aa5 10:25 Toradol; aa5 - PMHx: 10:25 Asthma; Cirrhosis; COPD; Diabetes - IDDM; Hepatitis; resolved; Hypertension; aa5 Pancreatitis; Pneumonia; - PSHx: 10:25 Knee surgery; Hysterectomy; Cholecystectomy; aa5 - Immunization history:: Flu vaccine is up to date. - Social history:: Smoking status: Patient/guardian denies using tobacco, Patient/guardian denies using alcohol, street drugs, The patient lives with family. - Ebola Screening: : No symptoms or risks identified at this time. - Family history:: not pertinent. ROS: 11:27 Constitutional: Negative for fever, chills, and weight loss, ENT: Negative for injury, ma2 pain, and discharge, Cardiovascular: Negative for chest pain, palpitations, and edema, Respiratory: Negative for shortness of breath, cough, wheezing, and pleuritic chest pain, Back: Negative for injury and pain, MS/Extremity: Negative for injury and deformity, Neuro: Negative for headache, weakness, numbness, tingling, and seizure. 11:27 Abdomen/GI: Positive for abdominal pain, nausea, vomiting, Negative for abdominal distension, bowel incontinence. Exam: 11:27 Constitutional: This is a well developed, well nourished patient who is awake, alert, ma2 and in no acute distress. Head/Face: Normocephalic, atraumatic. ENT: Nares patent. No nasal discharge, no septal abnormalities noted. Tympanic membranes are normal and external auditory canals are clear. Oropharynx with no redness, swelling, or masses, exudates, or evidence of obstruction, uvula midline. Mucous membranes moist. Neck: Trachea midline, no thyromegaly or masses palpated, and no cervical lymphadenopathy. Supple, full range of motion without nuchal rigidity, or vertebral point tenderness. No Meningismus. Chest/axilla: Normal chest wall appearance and motion. Nontender with no deformity. No lesions are appreciated. Cardiovascular: Regular rate and rhythm with a normal S1 and S2. No gallops, murmurs, or rubs. Normal PMI, no JVD. No pulse deficits. Respiratory: Lungs have equal breath sounds bilaterally, clear to auscultation and percussion. No rales, rhonchi or wheezes noted. No increased work of breathing, no retractions or nasal flaring. Back: No spinal tenderness. No costovertebral tenderness. Full range of motion. Skin: Warm, dry with normal turgor. Normal color with no rashes, no lesions, and no evidence of cellulitis. MS/ Extremity: Pulses equal, no cyanosis. Neurovascular intact. Full, normal range of motion. Neuro: Awake and alert, GCS 15, oriented to person, place, time, and situation. Cranial nerves II-XII grossly intact. Motor strength 5/5 in all extremities. Sensory grossly intact. Cerebellar exam normal. Normal gait. 11:27 Abdomen/GI: Inspection: abdomen appears normal, Palpation: moderate abdominal tenderness, in the epigastric area, right upper quadrant and left upper quadrant, Rectal exam: Liver: no appreciated palpable abnormalities, Hernia: not appreciated. Vital Signs: 10:26 BP 143 / 97; Pulse 103; Resp 16 S; Temp 98.3(TE); Pulse Ox 100% on R/A; Weight 95.71 kg aa5 (R); Height 5 ft. 4 in. (162.56 cm) (R); Pain 9/10; 10:34 BP 160 / 113; Pulse 111; Resp 18; Pulse Ox 100% on R/A; hj 11:37 BP 132 / 76; Pulse 84; Resp 18; Pulse Ox 100% on R/A; hj 12:18 BP 126 / 98; Pulse 109; Resp 18; Pulse Ox 100% on R/A; hj 14:19 BP 118 / 95; Pulse 90; Resp 18; Pulse Ox 100% on R/A; hj 10:26 Body Mass Index 36.22 (95.71 kg, 162.56 cm) aa5 MDM: 10:24 Patient medically screened. ma2 11:27 Differential diagnosis: pancreatitis, gastritis vs divertivculitis vs dka. ma2 11:46 Data reviewed: vital signs, nurses notes, diagnostic data from outside facility, EKG, ma2 radiologic studies. 11:46 Counseling: I had a detailed discussion with the patient and/or guardian regarding: the ma2 historical points, exam findings, and any diagnostic results supporting the discharge/admit diagnosis, the presence of at least one elevated blood pressure reading (>120/80) during this emergency department visit, radiology results. Medical screen evaluation completed. [facility] emergency medical condition absent. Medical screen evaluation completed. [facility] emergency medical condition absent. Response to treatment: There is no appreciated change of the patient's symptoms at this time. Response to treatment: There is no appreciated change of the patient's symptoms at this time. 12:22 Counseling: I had a detailed discussion with the patient and/or guardian regarding: the ma2 need for further work-up and treatment in the hospital. Response to treatment: the patient's symptoms have mildly improved after treatment. 12:23 ED course: discussed with dr. Black, patient still vomiting despite iv meds x 2, ma2 tachyardic . 09/05 10:38 Order name: Basic Metabolic Panel; Complete Time: 12: mo09/05 10:38 Order name: CBC with Diff; Complete Time: 12: mo09/05 10:38 Order name: Creatinine for Radiology; Complete Time: 12: mo09/05 10:38 Order name: Hepatic Function; Complete Time: 12: mo2 09/05 10:38 Order name: Lipase; Complete Time: 12: mo09/05 10:38 Order name: Troponin I; Complete Time: 12: mo2 09/05 10:38 Order name: CT Abd/Pelvis - W/Contrast; Complete Time: 13:49 ma2 09/05 12:01 Order name: Glucose, Ancillary Testing; Complete Time: 12:05 EDMS 09/05 12:21 Order name: Urine Dipstick--Ancillary (enter results); Complete Time: 13:49 sg 09/05 10:25 Order name: NPO; Complete Time: 10:26 ma2 09/05 10:25 Order name: EKG - Nurse/Tech; Complete Time: 10:34 ma2 09/05 10:38 Order name: IV Saline Lock; Complete Time: 11:34 ma2 09/05 10:38 Order name: Labs collected and sent; Complete Time: 11:34 ma2 09/05 10:38 Order name: Urine Dipstick-Ancillary (obtain specimen); Complete Time: 12:17 ma2 09/05 12:57 Order name: Clear Liquid EDMS Administered Medications: 11:20 Drug: NS 0.9% 1000 ml Route: IV; Rate: 1 bolus; Site: right antecubital; hj 12:51 Follow up: IV Status: Completed infusion; IV Intake: 1000ml hj 11:20 Drug: morphine 4 mg Route: IVP; Site: right antecubital; hj 11:36 Follow up: Response: No adverse reaction hj 11:37 Follow up: Response: Pain is decreased hj 11:20 Drug: Phenergan 25 mg Route: IVP; Site: right antecubital; hj 11:36 Follow up: Response: No adverse reaction; Nausea is decreased hj 11:20 Drug: Pepcid 20 mg Route: IVP; Site: right antecubital; hj 11:36 Follow up: Response: No adverse reaction hj 11:20 Drug: GI Cocktail without - (Maalox Suspension 30 ml, Lidocaine Liquid 2 % 15 hj ml) Route: PO; 11:35 Follow up: Response: No adverse reaction hj 11:30 Drug: Rocephin 1 grams Route: IV; Rate: calculated rate; Site: right upper arm; hj 11:40 Follow up: Response: No adverse reaction; IV Status: Completed infusion; IV Intake: 10mlhj 12:05 Drug: Reglan 10 mg Route: IVP; Site: right upper arm; hj 12:16 Follow up: Response: No adverse reaction; Nausea is decreased 12:11 Drug: Flagyl 500 mg Volume: 100 ml; Route: IVPB; Rate: 200 ml/hr; Infused Over: 30 hj mins; Site: right upper arm; 12:50 Follow up: IV Status: Completed infusion; IV Intake: 100ml hj 13:49 Drug: morphine 4 mg Route: IVP; Site: right upper arm; hj 14:26 Follow up: Response: No adverse reaction; Pain is decreased hj Point of Care Testing: Blood Glucose: 10:34 Blood Glucose: 305 mg/dL; Ranges: Critical Glucose Levels:Adult <50 mg/dl or >400 mg/dl <40 mg/dl or >180 mg/dl Disposition: 09/05/18 12:23 Hospitalization ordered by Kimberly Black for Observation. Preliminary diagnosis is Vomiting. - Bed requested for Telemetry/MedSurg (observation). - Status is Observation. hj - Condition is Stable. - Problem is new. - Symptoms are unchanged. UTI on Admission? No Signatures: Dispatcher [employer] EDMS Elli Catalan Audri, RN RN aa5 Benedict Elizabeth RN RN Olamide Garcia MD MD ma2 Corrections: (The following items were deleted from the chart) 14:25 12:23 Hospitalization Ordered by Kimberly Black MD for Observation. Preliminary bd diagnosis is Vomiting. Bed requested for Telemetry/MedSurg (observation). Status is Observation. Condition is Stable. Problem is new. Symptoms are unchanged. UTI on Admission? No. ma2 14:41 14:25 09/05/2018 12:23 Hospitalization Ordered by Kimberly Black MD for Observation. hj Preliminary diagnosis is Vomiting. Bed requested for Telemetry/MedSurg (observation). Status is Observation. Condition is Stable. Problem is new. Symptoms are unchanged. UTI on Admission? No. bd
[2018-09-05] MEDS ORDERED: METOCLOPRAMIDE 10 MG/2mL INJ ONE (12:26)
[2018-09-05 12:30] LABS: Urine Blood TRACE (NEG); Urine Glucose 2+ (NEG); Urine Protein NEGATIVE (NEG); Urine Specific Gravity 1.015 (1.005-1.030)
[2018-09-05] MEDS ORDERED: ONDANSETRON 4 MG/2 ML VIAL IV PRN (12:55)
[2018-09-05] MEDS ORDERED: PROMETHAZINE 25 MG/SUPP PR PRN (12:55)
[2018-09-05 14:55] VITALS: O2SAT 100
--- NOTE | 2018-09-05 15:12 | EKG ---
Test Date: 2018-09-05 Test Time: 10:36:07 Electrical Repairer: RALPH MEASUREMENT RESULTS: Intervals: Rate: 100 IN: 164 QRSD: 74 QT: 348 QTc: 448 [place]: P: 37 IN: 164 QRS: 2 T: 30 INTERPRETIVE STATEMENTS: Normal sinus rhythm Cannot rule out Anterior infarct, age undetermined Abnormal ECG Compared to ECG 03/29/2018 10:01:21 Sinus tachycardia no longer present Myocardial infarct finding still present Electronically Signed On 09-05-18 15:10:52 CDT by Jass Moreira
[2018-09-05] MEDS: NA CHLORIDE 0.9% 1,000 ML IV SCH (15:15)
[2018-09-05 15:31] VITALS: BMI 36.2
--- NOTE | 2018-09-05 15:57 | P.HP ---
Certification for Inpatient Patient admitted to: Observation With expected LOS: <2 Midnights Patient will require the following post-hospital care: None Practitioner: I am a practitioner with admitting privileges, knowledge of patient current condition, hospital course, and medical plan of care. Services: Services provided to patient in accordance with Admission requirements found in Title 42 Section 412.3 of the Code of Federal Regulations Patient History Date of Service: 09/05/18 Primary Care Provider: Dr barnett Reason for admission: Intractable nausea vomiting History of Present Illness: This is a 67-year-old female with significant past medical history of diabetes type 2 COPD CAD depression who presented to the ED complaining of having intractable nausea and vomiting. Patient stated that her nausea vomiting started Wednesday night and has gotten progressively worse. Patient denies having any diarrhea fever chills or any other associated symptoms. Patient states that she has had similar symptoms in the past and was diagnosed with pancreatitis. Patient had lasagna to eat Wednesday night which was store bought and thinks that it might be stale when she ate iy. Patient was recently admitted to the hospital in March for COPD exacerbation. Patient does have history of nausea vomiting in the past as well. Patient also has history of uncontrolled diabetes. In the ER patient had extensive lab work and imaging done. Abdominal CT was negative for any acute abnormality mostly chronic changes. Patient was given oral challenge which she failed and thus was admitted for observation for intractable nausea and vomiting. Allergies ketorolac Allergy (Severe, Verified 05/15/14 01:15) Hives/Rash ketorolac tromethamine [From Toradol] Allergy (Mild, Verified 03/14/12 17:55) Hives/Rash Penicillins Allergy (Mild, Verified 03/14/12 17:55) Itching propoxyphene napsylate [From Darvocet-N 100] Allergy (Mild, Verified 05/19/13 00 :28) Nausea/Vomiting Home Medications: ALPRAZolam [Xanax*] 2 mg PO TID 08/03/16 Clonidine HCl [Catapres*] 0.2 mg PO DAILY 03/25/17 Insulin Degludec [Tresiba Flextouch U-200] 80 units SQ DAILY WITH BREAKFAST 11/02 Ipratropium/Albuterol Sulfate [Combivent Respimat 20-100 Mcg] 20 mcg IH QID PRN 03/25/17 Montelukast [Singulair*] 10 mg PO DAILY 03/25/17 Quetiapine Fumarate [Seroquel] 800 mg PO BEDTIME 03/25/17 Pantoprazole [Protonix Tab*] 40 mg PO BIDAC #60 tab 04/15/17 Guaifen W/Codeine Syrup [ROBITUSSIN A-C Syrup*] 5 ml PO QID PRN #1 bottle Mometasone/Formoterol [Dulera 200 Mcg/5 Mcg Inhaler] 2 puff IH BID #1 inhaler Umeclidinium [place] [Incruse Ellipta] 62.5 mcg IH DAILY #30 blst.w.dev - Past Medical/Surgical History Diabetic: Yes -: CAD -: COPD -: Diabetes mellitus type 2 -: Hypertension -: Chronic pain syndrome -: Liver cirrhosis, fatty liver -: Chronic thrombocytopenia -: Hepatitis-C -: History CVA -: Morbid obesity -: Obstructive sleep apnea -: Right knee surgery -: Cholecystectomy -: Hysterectomy Psychosocial/ Personal History: The patient is single. She has 3 children. She currently lives with her granddaughter. - Family History Father -: Cancer Mother -: Lung disease, Cancer, Other (see notes) Notes: brain cancer - Social History Smoking Status: Unknown if ever smoked Counseled patient to stop smoking for: more than 10 minutes Smoking therapy provided: Yes Patient receptive to therapy: No Alcohol use: No CD- Drugs: No Caffeine use: Yes Place of Residence: Home Review of Systems 10-point ROS is otherwise unremarkable Physical Examination - Vital Signs Temperature: 98.3 F Blood Pressure: 118/95 Pulse: 90 Respirations: 18 - Physical Exam General: Alert, In no apparent distress HEENT: Atraumatic, PERRLA, Mucous membr. moist/pink, EOMI, Sclerae nonicteric Neck: Supple, 2+ carotid pulse no bruit, No LAD, Without JVD or thyroid abnormality Respiratory: Clear to auscultation bilaterally, Normal air movement Cardiovascular: Regular rate/rhythm, Normal S1 S2 Gastrointestinal: Normal bowel sounds, No tenderness Musculoskeletal: No tenderness Integumentary: No rashes Neurological: Normal gait, Normal speech, Normal strength at 5/5 x4 extr, Normal tone, Normal affect Lymphatics: No axilla or inguinal lymphadenopathy - Studies Laboratory Data (last 24 hrs) 09/05/18 10:53: Creatinine 0.76 09/05/18 10:53: WBC 5.6, Hgb 14.0, Hct 41.9, Plt Count 133 L 09/05/18 10:53: Sodium 135 L, Potassium 4.4, BUN 9, Creatinine 0.80, Glucose 324 H, Total Bilirubin 0.5, AST 44 H, ALT 29, Alkaline Phosphatase 205 H, Troponin I < 0.02, Lipase 82 Assessment and Plan - Problems (Diagnosis) (1) Intractable nausea and vomiting Current Visit: Yes Status: Acute Plan: Intractable nausea vomiting most likely secondary to diabetic gastroparesis versus viral gastroenteritis -patient started on IV Reglan and Zofran p.r.n. at this time -abdominal CT negative for any acute abnormality -will advance patient to clear liquid diet and advance as tolerated after that -will monitor for next 24-48 hr. Qualifiers: Vomiting type: unspecified Qualified Code(s): R11.2 - Nausea with vomiting , unspecified (2) COPD (chronic obstructive pulmonary disease) Onset Date: 11/26/14 Current Visit: No Status: Chronic Plan: Chronic COPD -stable at this time Qualifiers: COPD type: chronic bronchitis Chronic bronchitis type: simple Qualified Code(s): J41.0 - Simple chronic bronchitis (3) Hyperlipidemia Onset Date: 11/26/14 Current Visit: No Status: Chronic Plan: Stable at this time Qualifiers: Hyperlipidemia type: mixed hyperlipidemia Qualified Code(s): E78.2 - Mixed hyperlipidemia (4) Chronic pain syndrome Onset Date: 08/04/16 Current Visit: No Status: Chronic Plan: Patient currently requesting IV pain medications stating that she has been having a lot of abdominal pain and needs to get IV pain medications. Patient with LFTs and low blood pressure and the need to refrain from using any opioids. Patient also explained regarding the possibility of liver toxicity and the effects of IV pain medication on blood pressure. At this time patient was offered p.o. tramadol which she states that usually does not work. Patient was notified about all test results and imaging and the need to refrain from using opioids at this time. (5) Cirrhosis of liver Onset Date: 10/29/14 Current Visit: No Status: Chronic Qualifiers: Hepatic cirrhosis type: unspecified hepatic cirrhosis Ascites presence: without ascites Qualified Code(s): K74.60 - Unspecified cirrhosis of liver (6) Depression with anxiety Onset Date: 04/15/17 Current Visit: No Status: Chronic (7) Diabetes mellitus Onset Date: 08/04/16 Current Visit: No Status: Chronic Plan: Insulin sliding scale and Accu-Cheks Qualifiers: Diabetes mellitus type: type 2 Diabetes mellitus extermination supervisor insulin use: without senior care use Diabetes mellitus complication status: without complication Qualified Code(s): E11.9 - Type 2 diabetes mellitus without complications (8) GERD (gastroesophageal reflux disease) Onset Date: 04/15/17 Current Visit: No Status: Chronic Plan: Will start on Protonix Qualifiers: Esophagitis presence: without esophagitis Qualified Code(s): K21.9 - Gastro -esophageal reflux disease without esophagitis (9) Hepatitis C Onset Date: 11/26/14 Current Visit: No Status: Chronic Qualifiers: Viral hepatitis chronicity: chronic Hepatic coma status: without hepatic coma Qualified Code(s): B18.2 - Chronic viral hepatitis C (10) Hypertension Onset Date: 11/26/14 Current Visit: No Status: Chronic Qualifiers: Hypertension type: essential hypertension - Plan Admit to medical-surgical floor for IV hydration along with IV nausea medication. Will monitor for next 24-48 hr for improvement Discharge Plan: Home Plan to discharge in: 48 Hours - Advance Directives Does patient have a Living Will: No Does patient have a Durable POA for Healthcare: No - Code Status/Comfort Care Code Status Assessed: Yes Critical Care: No
[2018-09-05] MEDS: METOCLOPRAMIDE 5 MG TAB PO SCH ×2 (16:31→21:09)
[2018-09-05] MEDS: INSULIN -REGULAR HUMAN 50 UNIT/0.5 ML ML SQ SCH ×2 (16:33→21:09)
[2018-09-06] MEDS ORDERED: TEMAZEPAM 15 MG CAP PO PRN (00:56)
[2018-09-06] MEDS: NA CHLORIDE 0.9% 1,000 ML IV SCH (01:30)
[2018-09-06 05:42] LABS: Absolute Lymphocytes (CBC) 1.3 K/uL (0.7-4.9); Absolute Monocytes 0.5 K/uL (0.1-1.3); Absolute Neutrophil 3.3 K/uL (1.8-8.0); Basophils % 0.3 % (0-1.3); Eosinophils % 3.1 % (0-4.4); Hematocrit 37.1 % (36.0-45.0); Lymphocytes % 25.2 % (15.3-44.8); MPV 9.8 fL (7.6-11.3); RBC Red Blood Cell Count 4.43 M/uL (3.86-4.86)
[2018-09-06 05:47] LABS: ALT/SGPT 27 U/L (12-78); AST/SGOT 42 U/L (15-37); Albumin 3.5 g/dL (3.4-5.0); Alkaline Phosphatase 134 U/L (45-117); BUN Blood Urea Nitrogen 6 mg/dL (7-18); Bicarbonate 25 mmol/L (21-32); Bilirubin Total 0.5 mg/dL (0.2-1.0); Glucose Level 190 mg/dL (74-106); Phosphorus 2.6 mg/dL (2.5-4.9); Potassium 3.7 mmol/L (3.5-5.1); Sodium Level 141 mmol/L (136-145)
[2018-09-06] MEDS ORDERED: POTASSIUM 25 MEQ EFFERV TAB PO ONE (06:07)
[2018-09-06] MEDS ORDERED: PANTOPRAZOLE 40MG TABLET PO SCH (06:30)
[2018-09-06] MEDS: INSULIN -REGULAR HUMAN 50 UNIT/0.5 ML ML SQ SCH (07:30)
[2018-09-06] MEDS: METOCLOPRAMIDE 5 MG TAB PO SCH (08:02)
[2018-09-06 08:52] VITALS: BP 144/83; TEMP 97
--- NOTE | 2018-09-06 10:58 | P.SSS ---
Patient History Date of Service: 09/06/18 Primary Care Provider: Dr barnett Reason for admission: Intractable nausea vomiting History of Present Illness: This is a 67-year-old female with significant past medical history of diabetes type 2 COPD CAD depression who presented to the ED complaining of having intractable nausea and vomiting. Patient stated that her nausea vomiting started Wednesday night and has gotten progressively worse. Patient denies having any diarrhea fever chills or any other associated symptoms. Patient states that she has had similar symptoms in the past and was diagnosed with pancreatitis. Patient had lasagna to eat Wednesday night which was store bought and thinks that it might be stale when she ate iy. Patient was recently admitted to the hospital in March for COPD exacerbation. Patient does have history of nausea vomiting in the past as well. Patient also has history of uncontrolled diabetes. In the ER patient had extensive lab work and imaging done. Abdominal CT was negative for any acute abnormality mostly chronic changes. Patient was given oral challenge which she failed and thus was admitted for observation for intractable nausea and vomiting. Allergies ketorolac Allergy (Severe, Verified 05/15/14 01:15) Hives/Rash ketorolac tromethamine [From Toradol] Allergy (Mild, Verified 03/14/12 17:55) Hives/Rash Penicillins Allergy (Mild, Verified 03/14/12 17:55) Itching propoxyphene napsylate [From Darvocet-N 100] Allergy (Mild, Verified 05/19/13 00 :28) Nausea/Vomiting Home Medications: ALPRAZolam [Xanax*] 2 mg PO TID 08/03/16 Clonidine HCl [Catapres*] 0.2 mg PO DAILY 03/25/17 Insulin Degludec [Tresiba Flextouch U-200] 80 units SQ DAILY WITH BREAKFAST 11/02 Montelukast [Singulair*] 10 mg PO DAILY 03/25/17 Quetiapine Fumarate [Seroquel] 800 mg PO BEDTIME 03/25/17 Pantoprazole [Protonix Tab*] 40 mg PO BIDAC #60 tab 04/15/17 Guaifen W/Codeine Syrup [ROBITUSSIN A-C Syrup*] 5 ml PO QID PRN #1 bottle Mometasone/Formoterol [Dulera 200 Mcg/5 Mcg Inhaler] 2 puff IH BID #1 inhaler Umeclidinium [place] [Incruse Ellipta] 62.5 mcg IH DAILY #30 blst.w.dev Hydrocodone 10/APAP 325 [[place] 10/325*] 1 tab PO TID 09/06/18 - Past Medical/Surgical History Has patient received pneumonia vaccine in the past: No Diabetic: Yes -: CAD -: COPD -: Diabetes mellitus type 2 -: Hypertension -: Chronic pain syndrome -: Liver cirrhosis, fatty liver -: Chronic thrombocytopenia -: Hepatitis-C -: History CVA -: Morbid obesity -: Obstructive sleep apnea -: Right knee surgery -: Cholecystectomy -: Hysterectomy Psychosocial/ Personal History: The patient is single. She has 3 children. She currently lives with her granddaughter. - Family History Father -: Cancer Mother -: Lung disease, Cancer, Other (see notes) Notes: brain cancer - Social History Smoking Status: Unknown if ever smoked Alcohol use: No CD- Drugs: No Caffeine use: Yes Place of Residence: Home Review of Systems 10-point ROS is otherwise unremarkable Physical Examination - Vital Signs Temperature: 97.0 F Blood Pressure: 144/83 Pulse: 83 Respirations: 18 Pulse Ox (%): 98 - Physical Exam General: Alert, In no apparent distress HEENT: Atraumatic, PERRLA, Mucous membr. moist/pink, EOMI, Sclerae nonicteric Neck: Supple, 2+ carotid pulse no bruit, No LAD, Without JVD or thyroid abnormality Respiratory: Clear to auscultation bilaterally, Normal air movement Cardiovascular: Regular rate/rhythm, Normal S1 S2 Gastrointestinal: Normal bowel sounds, No tenderness Musculoskeletal: No tenderness Integumentary: No rashes Neurological: Normal gait, Normal speech, Normal strength at 5/5 x4 extr, Normal tone, Normal affect Lymphatics: No axilla or inguinal lymphadenopathy - Studies Laboratory Data (last 24 hrs) 09/05/18 10:53: Creatinine 0.76 09/05/18 10:53: WBC 5.6, Hgb 14.0, Hct 41.9, Plt Count 133 L 09/05/18 10:53: Sodium 135 L, Potassium 4.4, BUN 9, Creatinine 0.80, Glucose 324 H, Total Bilirubin 0.5, AST 44 H, ALT 29, Alkaline Phosphatase 205 H, Troponin I < 0.02, Lipase 82 - Diagnosis (Problem(s)) (1) Intractable nausea and vomiting Current Visit: Yes Status: Acute Qualifiers: Vomiting type: unspecified Qualified Code(s): R11.2 - Nausea with vomiting , unspecified (2) COPD (chronic obstructive pulmonary disease) Onset Date: 11/26/14 Current Visit: No Status: Chronic Qualifiers: COPD type: chronic bronchitis Chronic bronchitis type: simple Qualified Code(s): J41.0 - Simple chronic bronchitis (3) Hyperlipidemia Onset Date: 11/26/14 Current Visit: No Status: Chronic Qualifiers: Hyperlipidemia type: mixed hyperlipidemia Qualified Code(s): E78.2 - Mixed hyperlipidemia (4) Chronic pain syndrome Onset Date: 08/04/16 Current Visit: No Status: Chronic (5) Cirrhosis of liver Onset Date: 10/29/14 Current Visit: No Status: Chronic Qualifiers: Hepatic cirrhosis type: unspecified hepatic cirrhosis Ascites presence: without ascites Qualified Code(s): K74.60 - Unspecified cirrhosis of liver (6) Depression with anxiety Onset Date: 04/15/17 Current Visit: No Status: Chronic (7) Diabetes mellitus Onset Date: 08/04/16 Current Visit: No Status: Chronic Qualifiers: Diabetes mellitus type: type 2 Diabetes mellitus termite control technician insulin use: without termite control technician use Diabetes mellitus complication status: without complication Qualified Code(s): E11.9 - Type 2 diabetes mellitus without complications (8) GERD (gastroesophageal reflux disease) Onset Date: 04/15/17 Current Visit: No Status: Chronic Qualifiers: Esophagitis presence: without esophagitis Qualified Code(s): K21.9 - Gastro -esophageal reflux disease without esophagitis (9) Hepatitis C Onset Date: 11/26/14 Current Visit: No Status: Chronic Qualifiers: Viral hepatitis chronicity: chronic Hepatic coma status: without hepatic coma Qualified Code(s): B18.2 - Chronic viral hepatitis C (10) Hypertension Onset Date: 11/26/14 Current Visit: No Status: Chronic Qualifiers: Hypertension type: essential hypertension Treatment Summary: Patient continues to request IV pain medications stating that she has been having a lot of abdominal pain and needs to get IV pain medications specifically morphine. Patient with elevated LFTs and low blood pressure initially and educated extensively on the need to refrain from using any opioids. Patient also explained regarding the possibility of liver toxicity and the effects of IV pain medication on blood pressure. At this time patient was offered p.o. tramadol again which she states that usually does not work. Patient was notified about all test results and imaging being within normal limits. Patient also requesting IV Phenergan for her nausea. No nausea and vomiting noted by the hospital staff or nursing staff. Patient at that time and requested to be discharged home if no IV medications going to be given. Patient again educated extensively on refraining from using opioids and IV Phenergan and explained about the potential side effects of overdose and addiction. DC pt Home after discussing all lab and imaging results. - Disposition Disposition: ROUTINE DISCHARGE Condition: GOOD Diet: Regular Activity: Ad dia
== END 2018-09-06 10:30 | disposition home or self-care (01) ==
LOC: ER 10:13 → ERHOLD 12:55 → 4TH 14:35
PROVIDERS: ADMIT Family Medicine; ATTEND Family Medicine
DX: R11.2 Nausea with vomiting, unspecified (principal); E11.9 Type 2 diabetes mellitus without complications; E78.2 Mixed hyperlipidemia; G89.4 Chronic pain syndrome; I10 Essential (primary) hypertension; J44.9 Chronic obstructive pulmonary disease, unspecified; K74.60 Unspecified cirrhosis of liver; K76.0 Fatty (change of) liver, not elsewhere classified; K21.9 Gastro-esophageal reflux disease without esophagitis; F41.8 Other specified anxiety disorders; B18.2 Chronic viral hepatitis C; E66.01 Morbid (severe) obesity due to excess calories; I25.10 Atherosclerotic heart disease of native coronary artery without angina pectoris; G47.33 Obstructive sleep apnea (adult) (pediatric); D69.6 Thrombocytopenia, unspecified; R94.31 Abnormal electrocardiogram [ECG] [EKG]; Z79.4 Long term (current) use of insulin; Z79.899 Other long term (current) drug therapy; Z86.73 Personal history of transient ischemic attack (TIA), and cerebral infarction without residual deficits
CPT/HCPCS: 96365; 96367; 93005; 85025 ×2; 80048; 36415; 83735; 84100; 82962 ×4; 80076; 81003; 84484; 83690; 80053; 74177; 99285; Q9967; J2765; J2550; J0696; J7030 ×3; J2405; G0378 ×2

== ENCOUNTER 2018-12-28 22:43 | Observation (INO) | payer OTHER ==
--- OUTSIDE RECORDS SUMMARY | 2018-12-28 22:45 | XMS REPORT ---
:1950 [facility] Address [address] [place] [address] Dr. Melo [address] [place] [id number] Care Team Providers Name Role Phone Unavailable Unavailable Unavailable Problems This patient has no known problems. Allergies, Adverse Reactions, Alerts This patient has no known allergies or adverse reactions. Medications This patient has no known medications.
[2018-12-29] MEDS ORDERED: PROMETHAZINE 25 MG/ML VIAL ONE (00:59)
[2018-12-29] MEDS ORDERED: MAGNE/ALUM HYDROXD 30 ML UCUP ONE (00:59)
[2018-12-29] MEDS ORDERED: PANTOPRAZOLE 40 MG INJ ONE (01:00)
[2018-12-29] MEDS ORDERED: MORPHINE 4 MG/ML SYR ONE (01:00)
[2018-12-29] MEDS ORDERED: AMLODIPINE 5 MG TAB ONE (01:00)
[2018-12-29] MEDS ORDERED: LIDOCAINE VISCOUS 2% SOLN 15 ML UDC ONE (01:01)
[2018-12-29] MEDS ORDERED: NA CHLORIDE 0.9% 1,000 ML ONE (01:01)
[2018-12-29 01:05] LABS: Protime INR 1.26
[2018-12-29 01:06] LABS: Absolute Lymphocytes (CBC) 1.6 K/uL (0.7-4.9); Basophils % 0.3 % (0-1.3); Lymphocytes % 19.6 % (15.3-44.8); MPV 10.1 fL (7.6-11.3); RBC Red Blood Cell Count 4.65 M/uL (3.86-4.86)
[2018-12-29 01:23] LABS: ALT/SGPT 29 U/L (12-78); AST/SGOT 42 U/L (15-37); Albumin 4.1 g/dL (3.4-5.0); Alkaline Phosphatase 120 U/L (45-117); BUN Blood Urea Nitrogen 15 mg/dL (7-18); Bicarbonate 27 mmol/L (21-32); Bilirubin Direct 0.2 mg/dL (0-0.2); Bilirubin Total 0.5 mg/dL (0.2-1.0); Glucose Level 235 mg/dL (74-106); Lipase 88 U/L (73-393); Magnesium 2.1 mg/dL (1.8-2.4); NT PRO-BNP 22 pg/mL (<125); Potassium 3.3 mmol/L (3.5-5.1); Protein, Total 7.9 g/dL (6.4-8.2); Sodium Level 140 mmol/L (136-145); Troponin (Emerg Dept Use Only) < 0.02 ng/mL (0.0-0.045)
--- NOTE | 2018-12-29 02:22 | EDPHYS ---
Physician Documentation [facility] Name: Sheila Vila Age: 68 yrs Sex: Female : 1950 Arrival Date: 12/28/2018 Time: 23:00 Bed 14 Private MD: ED Physician Merlin Chang HPI: 12/29 00:30 This 68 yrs old Black Female presents to ER via Wheelchair with complaints of Headache. nolvia 00:30 The patient complains of pain to the top of head, forehead, left frontal area, left nolvia side of the back of head, left occipital area and left base of the skull. The patient describes the headache as aching. Onset: The symptoms/episode began/occurred 2 day(s) ago. Associated signs and symptoms: The patient has no apparent associated signs or symptoms. Severity of symptoms: At its worst the pain was mild, moderate, in the emergency department the pain is unchanged. Headache History: The patient has had previous headaches and this one is similar to previous episodes. The patient has experienced similar episodes in the past, several times. Historical: - Allergies: 12/28 23:06 Darvocet-N 100; aa5 23:06 PENICILLINS; aa5 23:06 PROPOXYPHENE; aa5 23:06 Toradol; aa5 - PMHx: 23:06 Asthma; Cirrhosis; COPD; Diabetes - IDDM; Hepatitis; resolved; Hypertension; aa5 Pancreatitis; Pneumonia; - PSHx: 23:06 Knee surgery; Hysterectomy; Cholecystectomy; cataract sx; aa5 - Immunization history:: Flu vaccine is up to date. - Social history:: Smoking status: Patient/guardian denies using tobacco. - Ebola Screening: : No symptoms or risks identified at this time. - Family history:: not pertinent. ROS: 12/29 00:30 Constitutional: Negative for fever, chills, and weight loss, Eyes: Negative for injury, nolvia pain, redness, and discharge, ENT: Negative for injury, pain, and discharge, Neck: Negative for injury, pain, and swelling, Cardiovascular: Negative for chest pain, palpitations, and edema, Respiratory: Negative for shortness of breath, cough, wheezing, and pleuritic chest pain, Back: Negative for injury and pain, : Negative for injury, bleeding, discharge, and swelling, MS/Extremity: Negative for injury and deformity, Skin: Negative for injury, rash, and discoloration, Neuro: Negative for headache, weakness, numbness, tingling, and seizure, Psych: Negative for depression, anxiety, suicide ideation, homicidal ideation, and hallucinations, Allergy/Immunology: Negative for hives, rash, and allergies, Endocrine: Negative for neck swelling, polydipsia, polyuria, polyphagia, and marked weight changes, Hematologic/Lymphatic: Negative for swollen nodes, abnormal bleeding, and unusual bruising. Abdomen/GI: Positive for abdominal pain, of the epigastric area, right upper quadrant and left upper quadrant. Exam: 00:30 Constitutional: This is a well developed, well nourished patient who is awake, alert, nolvia and in no acute distress. Head/Face: Normocephalic, atraumatic. Eyes: Pupils equal round and reactive to light, extra-ocular motions intact. Lids and lashes normal. Conjunctiva and sclera are non-icteric and not injected. Cornea within normal limits. Periorbital areas with no swelling, redness, or edema. ENT: Nares patent. No nasal discharge, no septal abnormalities noted. Tympanic membranes are normal and external auditory canals are clear. Oropharynx with no redness, swelling, or masses, exudates, or evidence of obstruction, uvula midline. Mucous membranes moist. Neck: Trachea midline, no thyromegaly or masses palpated, and no cervical lymphadenopathy. Supple, full range of motion without nuchal rigidity, or vertebral point tenderness. No Meningismus. Chest/axilla: Normal chest wall appearance and motion. Nontender with no deformity. No lesions are appreciated. Cardiovascular: Regular rate and rhythm with a normal S1 and S2. No gallops, murmurs, or rubs. Normal PMI, no JVD. No pulse deficits. Respiratory: Lungs have equal breath sounds bilaterally, clear to auscultation and percussion. No rales, rhonchi or wheezes noted. No increased work of breathing, no retractions or nasal flaring. Back: No spinal tenderness. No costovertebral tenderness. Full range of motion. Female : Normal external genitalia. Skin: Warm, dry with normal turgor. Normal color with no rashes, no lesions, and no evidence of cellulitis. MS/ Extremity: Pulses equal, no cyanosis. Neurovascular intact. Full, normal range of motion. Neuro: Awake and alert, GCS 15, oriented to person, place, time, and situation. Cranial nerves II-XII grossly intact. Motor strength 5/5 in all extremities. Sensory grossly intact. Cerebellar exam normal. Normal gait. Psych: Awake, alert, with orientation to person, place and time. Behavior, mood, and affect are within normal limits. 00:30 Abdomen/GI: Inspection: abdomen appears normal, Bowel sounds: normal, Palpation: moderate abdominal tenderness, in the epigastric area, right upper quadrant and left upper quadrant, Liver: no appreciated palpable abnormalities, Hernia: not appreciated. Vital Signs: 12/28 23:06 BP 139 / 94; Pulse 110; Resp 18 S; Temp 98.6(O); Pulse Ox 98% on R/A; Weight 97.98 kg aa5 (R); Height 5 ft. 4 in. (162.56 cm) (R); Pain 8/10; 12/29 00:30 BP 145 / 104; Pulse 103; Resp 16; Pulse Ox 98% on R/A; jb4 01:30 BP 162 / 127; Pulse 104; Resp 16; Pulse Ox 96% on R/A; jb4 02:15 BP 148 / 105; Pulse 106; Resp 18; Pulse Ox 100% on R/A; jb4 03:15 BP 160 / 103; Pulse 100; Resp 16; Pulse Ox 100% on R/A; jb4 04:30 BP 149 / 104; Pulse 91; Resp 16; Temp 98.7(O); Pulse Ox 97% on R/A; jb4 12/28 23:06 Body Mass Index 37.08 (97.98 kg, 162.56 cm) aa5 Procedures: 00:46 Peripheral line: by aseptic technique a peripheral line was placed in the left external nolvia jugular vein. MDM: 12/28 23:14 Patient medically screened. [facility] 12/29 00:30 Data reviewed: vital signs, nurses notes, lab test result(s), EKG, radiologic studies, [facility] CT scan, plain films. 12/29 00:30 Order name: Basic Metabolic Panel; Complete Time: 02:15 [facility] 12/29 00:30 Order name: CBC with Diff; Complete Time: 02:15 [facility] 12/29 00:30 Order name: LFT's; Complete Time: 02:15 [facility] 12/29 00:30 Order name: Magnesium; Complete Time: 02:15 [facility] 12/29 00:30 Order name: NT PRO-BNP; Complete Time: 02:15 [facility] 12/29 00:30 Order name: PT-INR; Complete Time: 02:15 [facility] 12/29 00:30 Order name: Troponin (emerg Dept Use Only); Complete Time: 02:15 [facility] 12/29 00:30 Order name: XRAY Chest (1 view) [facility] 12/29 00:30 Order name: Lipase; Complete Time: 02:15 [facility] 12/29 00:34 Order name: CT Head Brain wo Cont [facility] 12/29 03:33 Order name: CBC with Automated Diff [facility] 12/29 03:33 Order name: CBC with Automated Diff [facility] 12/29 03:33 Order name: Comprehensive Metabolic Panel [facility] 12/29 03:33 Order name: Comprehensive Metabolic Panel [facility] 12/29 00:30 Order name: EKG; Complete Time: 00:32 [facility] 12/29 00:30 Order name: Cardiac monitoring; Complete Time: 00:53 [facility] 12/29 00:30 Order name: EKG - Nurse/Tech; Complete Time: 00:53 [facility] 12/29 00:30 Order name: IV Saline Lock; Complete Time: 00:53 [facility] 12/29 01:27 Order name: CT-ABD [facility] 12/29 03:33 Order name: CONS Pharmacy Consult [facility] 12/29 03:33 Order name: Heart Healthy [facility] 12/29 00:30 Order name: Labs collected and sent; Complete Time: 00:53 [facility] 12/29 00:30 Order name: O2 Per Protocol; Complete Time: 00:53 [facility] 12/29 00:30 Order name: O2 Sat Monitoring; Complete Time: 00:53 [facility] Administered Medications: 01:25 Drug: Phenergan 12.5 mg Route: IVP; Site: left jugular; jb4 01:45 Follow up: Response: No adverse reaction; Nausea is decreased jb4 01:25 Drug: GI Cocktail without - (Maalox Suspension 30 ml, Lidocaine Liquid 2 % 15 jb4 ml) Route: PO; 02:00 Follow up: Response: No adverse reaction; Pain is decreased jb4 01:25 Drug: Norvasc 10 mg Route: PO; jb4 04:43 Follow up: Response: No adverse reaction; Blood pressure is lowered jb4 01:28 Drug: morphine 4 mg {Note: Rass score 0.} Route: IVP; Site: left jugular; jb4 02:00 Follow up: Response: No adverse reaction; Pain is decreased jb4 01:29 Drug: ProTONIX 40 mg Route: IVP; Site: left jugular; jb4 04:44 Follow up: Response: No adverse reaction jb4 01:30 Drug: NS 0.9% 1000 ml Route: IV; Rate: 125 ml/hr; Site: left jugular; jb4 03:00 Follow up: IV Status: Order to discontinue infusion; IV Intake: 100ml jb4 03:17 Drug: Dilaudid 1 mg {Note: Rass score 0.} Route: IVP; Site: left jugular; jb4 03:47 Follow up: Response: No adverse reaction; Pain is decreased jb4 03:18 Drug: NS 0.9% with KCl 20 mEq/L 1000 ml Route: IV; Rate: 100 ml/hr; Site: left jugular; jb4 04:43 Follow up: Response: No adverse reaction; IV Status: Infusion continued upon admission jb4 Disposition: 12/29/18 02:20 Hospitalization ordered by Olamide Hillman for Inpatient Admission. Preliminary diagnosis are Essential (primary) hypertension, Abdominal tenderness, Type 1 diabetes mellitus, Chest pain, unspecified, Hypokalemia. - Bed requested for Telemetry/MedSurg (Inpatient). - Status is Inpatient Admission. jd3 - Condition is Fair. - Problem is new. - Symptoms have improved. UTI on Admission? No Signatures: Dispatcher [employer] [facility] Merlin Chang MD MD cha Calderon, Audri, RN RN aa5 Isiah Foss RN RN jb4 Farnaz Pate mt, Jonathon, RN RN jd3 Corrections: (The following items were deleted from the chart) 01:28 00:35 Abdomen Pelvis W Con+CT.RAD.BRZ ordered. [facility] 04:22 02:20 Hospitalization Ordered by Olamide Hillman MD for Inpatient Admission. Preliminary mt diagnosis is Essential (primary) hypertension; Abdominal tenderness; Type 1 diabetes mellitus; Chest pain, unspecified; Hypokalemia. Bed requested for Telemetry/MedSurg (Inpatient). Status is Inpatient Admission. Condition is Fair. Problem is new. Symptoms have improved. UTI on Admission? No. nolvia 04:36 04:22 12/29/2018 02:20 Hospitalization Ordered by Olamide Hillman MD for Inpatient mt Admission. Preliminary diagnosis is Essential (primary) hypertension; Abdominal tenderness; Type 1 diabetes mellitus; Chest pain, unspecified; Hypokalemia. Bed requested for Telemetry/MedSurg (Inpatient). Status is Inpatient Admission. Condition is Fair. Problem is new. Symptoms have improved. UTI on Admission? No. mt 05:26 04:36 12/29/2018 02:20 Hospitalization Ordered by Olamide Hillman MD for Inpatient jd3 Admission. Preliminary diagnosis is Essential (primary) hypertension; Abdominal tenderness; Type 1 diabetes mellitus; Chest pain, unspecified; Hypokalemia. Bed requested for Telemetry/MedSurg (Inpatient). Status is Inpatient Admission. Condition is Fair. Problem is new. Symptoms have improved. UTI on Admission? No. mt
--- NOTE | 2018-12-29 02:22 | ER ---
Nurse's Notes [facility] Name: Sheila Vila Age: 68 yrs Sex: Female : 1950 Arrival Date: 12/28/2018 Time: 23:00 Bed 14 Private MD: Diagnosis: Essential (primary) hypertension;Abdominal tenderness;Type 1 diabetes mellitus;Chest pain, unspecified;Hypokalemia Presentation: 12/28 23:03 Presenting complaint: Patient states: "I had eye surgery on September and October and every aa5 time I follow up with the eye doctor he says there is some swelling and he gave me steroid eye drops but today I took my blood pressure today it was 198/108". Pt also reports pain to left side of chest and left shoulder, nausea/vomiting. Transition of care: patient was not received from another setting of care. Onset of symptoms was December 2018. Risk Assessment: Do you want to hurt yourself or someone else? Patient reports no desire to harm self or others. Initial Sepsis Screen: Does the patient meet any 2 criteria? HR > 90 bpm. Does the patient have a suspected source of infection? No. Patient's initial sepsis screen is negative. Care prior to arrival: None. 23:03 Acuity: SYLVESTER 3 aa5 23:03 Method Of Arrival: Wheelchair aa5 Historical: - Allergies: 23:06 Darvocet-N 100; aa5 23:06 PENICILLINS; aa5 23:06 PROPOXYPHENE; aa5 23:06 Toradol; aa5 - PMHx: 23:06 Asthma; Cirrhosis; COPD; Diabetes - IDDM; Hepatitis; resolved; Hypertension; aa5 Pancreatitis; Pneumonia; - PSHx: 23:06 Knee surgery; Hysterectomy; Cholecystectomy; cataract sx; aa5 - Immunization history:: Flu vaccine is up to date. - Social history:: Smoking status: Patient/guardian denies using tobacco. - Ebola Screening: : No symptoms or risks identified at this time. - Family history:: not pertinent. Screenin:30 Abuse screen: Denies threats or abuse. Nutritional screening: No deficits noted. jb4 Tuberculosis screening: No symptoms or risk factors identified. Fall Risk None identified. Assessment: 23:30 General: Appears in no apparent distress. uncomfortable, Behavior is calm, cooperative, jb4 appropriate for age. Pain: Complains of pain in anterior aspect of left upper chest, right upper quadrant, left upper quadrant and anterior aspect of left shoulder Pain radiates to left arm Pain currently is 10 out of 10 on a pain scale. Quality of pain is described as crampy, stinging, Is continuous. Neuro: Level of Consciousness is awake, alert, obeys commands, Oriented to person, place, time, situation. Cardiovascular: Patient's skin is warm and dry. Respiratory: Airway is patent Respiratory effort is even, unlabored, Respiratory pattern is regular, symmetrical. GI: Reports upper abdominal pain, diarrhea. : No deficits noted. No signs and/or symptoms were reported regarding the genitourinary system. EENT: No deficits noted. No signs and/or symptoms were reported regarding the EENT system. Derm: Skin is intact, Skin is dry, Skin is normal, Skin temperature is warm. Musculoskeletal: Circulation, motion, and sensation intact. 12/29 00:20 Reassessment: Patient appears in no apparent distress at this time. No changes from jb4 previously documented assessment. Patient and/or family updated on plan of care and expected duration. Pain level reassessed. Patient is alert, oriented x 3, equal unlabored respirations, skin warm/dry/pink. 01:30 Reassessment: Patient appears in no apparent distress at this time. Patient and/or jb4 family updated on plan of care and expected duration. Pain level reassessed. Patient is alert, oriented x 3, equal unlabored respirations, skin warm/dry/pink. 02:30 Reassessment: Patient appears in no apparent distress at this time. Patient and/or jb4 family updated on plan of care and expected duration. Pain level reassessed. Patient is alert, oriented x 3, equal unlabored respirations, skin warm/dry/pink. 03:30 Reassessment: Patient appears in no apparent distress at this time. Patient and/or jb4 family updated on plan of care and expected duration. Pain level reassessed. Patient is alert, oriented x 3, equal unlabored respirations, skin warm/dry/pink. 04:29 Reassessment: Patient appears in no apparent distress at this time. Patient and/or jb4 family updated on plan of care and expected duration. Pain level reassessed. Patient is alert, oriented x 3, equal unlabored respirations, skin warm/dry/pink. Patient states feeling better. 04:45 Reassessment: Report called to VIOLETTE Law. jb4 Vital Signs: 12/28 23:06 BP 139 / 94; Pulse 110; Resp 18 S; Temp 98.6(O); Pulse Ox 98% on R/A; Weight 97.98 kg aa5 (R); Height 5 ft. 4 in. (162.56 cm) (R); Pain 8/10; 12/29 00:30 BP 145 / 104; Pulse 103; Resp 16; Pulse Ox 98% on R/A; jb4 01:30 BP 162 / 127; Pulse 104; Resp 16; Pulse Ox 96% on R/A; jb4 02:15 BP 148 / 105; Pulse 106; Resp 18; Pulse Ox 100% on R/A; jb4 03:15 BP 160 / 103; Pulse 100; Resp 16; Pulse Ox 100% on R/A; jb4 04:30 BP 149 / 104; Pulse 91; Resp 16; Temp 98.7(O); Pulse Ox 97% on R/A; jb4 12/28 23:06 Body Mass Index 37.08 (97.98 kg, 162.56 cm) aa5 ED Course: 12/28 23:00 Patient arrived in ED. aa5 23:03 Arm band placed on. aa5 23:05 Triage completed. aa5 23:11 Isiah Foss, VIOLETTE is Primary Nurse. jb4 23:14 Merlin Chang MD is Attending Physician. nolvia 23:30 Patient has correct armband on for positive identification. Bed in low position. Call jb4 light in reach. Side rails up X 1. Pulse ox on. NIBP on. 12/29 00:57 X-ray completed. Portable x-ray completed in exam room. Patient tolerated procedure kw well. 00:59 XRAY Chest (1 view) In Process Unspecified. EDMS 01:25 Initial lab(s) drawn, by ED staff, sent to lab. Inserted saline lock: 20 gauge in right jb4 EJ, using aseptic technique. Blood collected. 02:18 Olamide Hillman MD is Hospitalizing Provider. nolvia 02:25 Radiology exam delayed due to Patient finished oral contrast at 0130. kw1 03:09 CT-ABD In Process Unspecified. EDMS 03:09 CT Head Brain wo Cont In Process Unspecified. EDMS 04:46 Patient admitted, IV remains in place. jb4 04:46 No provider procedures requiring assistance completed. jb4 Administered Medications: 01:25 Drug: Phenergan 12.5 mg Route: IVP; Site: left jugular; jb4 01:45 Follow up: Response: No adverse reaction; Nausea is decreased jb4 01:25 Drug: GI Cocktail without - (Maalox Suspension 30 ml, Lidocaine Liquid 2 % 15 jb4 ml) Route: PO; 02:00 Follow up: Response: No adverse reaction; Pain is decreased jb4 01:25 Drug: Norvasc 10 mg Route: PO; jb4 04:43 Follow up: Response: No adverse reaction; Blood pressure is lowered jb4 01:28 Drug: morphine 4 mg {Note: Rass score 0.} Route: IVP; Site: left jugular; jb4 02:00 Follow up: Response: No adverse reaction; Pain is decreased jb4 01:29 Drug: ProTONIX 40 mg Route: IVP; Site: left jugular; jb4 04:44 Follow up: Response: No adverse reaction jb4 01:30 Drug: NS 0.9% 1000 ml Route: IV; Rate: 125 ml/hr; Site: left jugular; jb4 03:00 Follow up: IV Status: Order to discontinue infusion; IV Intake: 100ml jb4 03:17 Drug: Dilaudid 1 mg {Note: Rass score 0.} Route: IVP; Site: left jugular; jb4 03:47 Follow up: Response: No adverse reaction; Pain is decreased jb4 03:18 Drug: NS 0.9% with KCl 20 mEq/L 1000 ml Route: IV; Rate: 100 ml/hr; Site: left jugular; jb4 04:43 Follow up: Response: No adverse reaction; IV Status: Infusion continued upon admission jb4 Intake: 03:00 IV: 100ml; Total: 100ml. jb4 Outcome: 02:20 Decision to Hospitalize by Provider. nolvia 04:46 Admitted to Tele accompanied by jose, via stretcher, room 429, with chart, Report jb4 called to VIOLETTE Law 04:46 Condition: stable 04:46 Discharge instructions given to patient, Instructed on the need for admit, Demonstrated understanding of instructions. 05:26 Patient left the ED. jd3 Signatures: Dispatcher [employer] Merlin Valverde MD MD nolvia Soto, Ariane, RN RN aa5 Toshia Germain James RN RN jb4 Dallas Petersen RN RN jd3 Alejandra Ceja1 Corrections: (The following items were deleted from the chart) 12/28 23:07 23:03 Initial Sepsis Screen: Does the patient meet any 2 criteria? No. Patient's aa5 initial sepsis screen is negative. Does the patient have a suspected source of infection? No. Patient's initial sepsis screen is negative. aa5
[2018-12-29] MEDS ORDERED: NS KCL 20MEQ 1,000 ML IV ONE (02:49)
[2018-12-29] MEDS ORDERED: HYDROMORPHONE HCL 1 MG/ML INJ ONE (02:49)
[2018-12-29] MEDS ORDERED: MORPHINE 2 MG/ML SYR IV PRN (03:30)
[2018-12-29] MEDS ORDERED: ACETAMINOPHEN 500 MG TAB PO PRN (03:30)
[2018-12-29 05:46] VITALS: O2SAT 97
[2018-12-29 06:20] VITALS: BMI 37.0
[2018-12-29] MEDS: NA CHLORIDE 0.9% 1,000 ML IV SCH ×2 (06:27→16:48)
[2018-12-29] MEDS ORDERED: PNEUMOCOCCAL VACCINE 0.5 ML IMVAC ONE (08:00)
--- NOTE | 2018-12-29 08:07 | RAD REPORT ---
EXAM DESCRIPTION: RAD - Chest Single View - 12/29/2018 12:58 am CLINICAL HISTORY: CHEST PAIN Chest pain. COMPARISON: Chest Single View dated 03/29/2018; Chest Pa And Lat (2 Views) dated 11/04/2017; Chest Si ngle View dated 06/17/2017; Chest Pa And Lat (2 Views) dated 04/15/2017 FINDINGS: Portable technique limits examination quality. The lungs are emphysematous but grossly clear. The heart is normal in size. No displaced fractures. IMPRESSION: Mild COPD.
[2018-12-29] MEDS: ONDANSETRON 4 MG/2 ML VIAL IV PRN ×2 (08:32→16:47)
[2018-12-29] MEDS ORDERED: METOCLOPRAMIDE 5 MG TAB PO PRN (09:25)
--- NOTE | 2018-12-29 09:30 | P.HP ---
Certification for Inpatient Patient admitted to: Observation With expected LOS: <2 Midnights Patient will require the following post-hospital care: None Practitioner: I am a practitioner with admitting privileges, knowledge of patient current condition, hospital course, and medical plan of care. Services: Services provided to patient in accordance with Admission requirements found in Title 42 Section 412.3 of the Code of Federal Regulations Patient History Date of Service: 12/29/18 Reason for admission: Abdominal pain/headache/uncontrolled hypertension History of Present Illness: Patient is a 68-year-old female came to the hospital with a headache and uncontrolled blood pressure. Patient has had numerous admissions in the past for abdominal discomfort. She does state that her abdomen is hurting but the reason she came into the hospital with a headache. In the ER her CT scan was negative for any abnormalities. Her blood pressure is labile. She is on clonidine and she has not taken her medication as prescribed. This is because she has has some nausea and not able to keep anything down. She has numerous complaints similar to this in the past. At this time, she will be admitted for observation. Allergies ketorolac Allergy (Severe, Verified 05/15/14 01:15) Hives/Rash ketorolac tromethamine [From Toradol] Allergy (Mild, Verified 03/14/12 17:55) Hives/Rash Penicillins Allergy (Mild, Verified 03/14/12 17:55) Itching propoxyphene napsylate [From Darvocet-N 100] Allergy (Mild, Verified 05/19/13 00 :28) Nausea/Vomiting Home Medications: ALPRAZolam [Xanax*] 2 mg PO TID 08/03/16 Clonidine HCl [Catapres*] 0.2 mg PO DAILY 03/25/17 Insulin Degludec [Tresiba Flextouch U-200] 80 units SQ DAILY WITH BREAKFAST 11/02 Montelukast [Singulair*] 10 mg PO DAILY 03/25/17 Quetiapine Fumarate [Seroquel] 800 mg PO BEDTIME 03/25/17 Guaifen W/Codeine Syrup [ROBITUSSIN A-C Syrup*] 5 ml PO QID PRN #1 bottle Mometasone/Formoterol [Dulera 200 Mcg/5 Mcg Inhaler] 2 puff IH BID #1 inhaler Umeclidinium [place] [Incruse Ellipta] 62.5 mcg IH DAILY #30 blst.w.dev Hydrocodone 10/APAP 325 [[place] 10/325*] 1 tab PO TID 09/06/18 Amlodipine [Norvasc*] 10 mg PO BID 12/29/18 Metoclopramide HCl [Reglan] 10 mg PO DAILY PRN 12/29/18 Nepafenac [Ilevro] 1 drop OPTH QID 12/29/18 Pantoprazole [Protonix Tab*] 40 mg PO DAILY 12/29/18 - Past Medical/Surgical History Has patient received pneumonia vaccine in the past: No Diabetic: Yes -: CAD -: COPD -: Diabetes mellitus type 2 -: Hypertension -: Chronic pain syndrome -: Liver cirrhosis, fatty liver -: Chronic thrombocytopenia -: Hepatitis-C -: History CVA -: Morbid obesity -: Obstructive sleep apnea -: glaucoma -: Right knee surgery -: Cholecystectomy -: Hysterectomy Psychosocial/ Personal History: The patient is single. She has 3 children. She currently lives with her granddaughter. - Family History Father Medical History: Cancer Mother Medical History: Lung disease, Cancer, Other (see notes) Notes: brain cancer - Social History Smoking Status: Never smoker Alcohol use: No CD- Drugs: Yes Caffeine use: Yes Place of Residence: Home Review of Systems 10-point ROS is otherwise unremarkable Physical Examination - Vital Signs Temperature: 97.0 F Blood Pressure: 165/104 Pulse: 87 Respirations: 18 Pulse Ox (%): 95 - Physical Exam General: Alert, In no apparent distress, Oriented x3 HEENT: Atraumatic, PERRLA, Mucous membr. moist/pink, EOMI, Sclerae nonicteric Neck: Supple, 2+ carotid pulse no bruit, No LAD, Without JVD or thyroid abnormality Respiratory: Clear to auscultation bilaterally, Normal air movement Cardiovascular: Regular rate/rhythm, Normal S1 S2, No murmurs Gastrointestinal: Normal bowel sounds, Soft and benign, Non-distended, No tenderness Musculoskeletal: No clubbing, No swelling, No tenderness Integumentary: No rashes Neurological: Normal gait, Normal speech, Normal strength at 5/5 x4 extr, Normal tone, Normal affect Lymphatics: No axilla or inguinal lymphadenopathy - Studies Laboratory Data (last 24 hrs) 12/29/18 00:25: PT 14.7 H, INR 1.26 12/29/18 00:25: WBC 8.0, Hgb 13.8, Hct 40.0, Plt Count 119 L 12/29/18 00:25: Sodium 140, Potassium 3.3 L, BUN 15, Creatinine 0.96, Glucose 235 H, Magnesium 2.1, Total Bilirubin 0.5, AST 42 H, ALT 29, Alkaline Phosphatase 120 H, Lipase 88 Assessment & Plan - Problems (Diagnosis) (1) Headache Current Visit: Yes Status: Acute (2) Dyspnea Onset Date: 04/15/17 Current Visit: No Status: Acute Qualifiers: (3) Nausea and vomiting Current Visit: No Status: Acute (4) Hyperlipidemia Onset Date: 11/26/14 Current Visit: No Status: Chronic Qualifiers: (5) Hypertension Onset Date: 11/26/14 Current Visit: No Status: Chronic Qualifiers: (6) Obesity Onset Date: 04/15/17 Current Visit: No Status: Chronic Qualifiers: - Plan Plan: 1. CT of the head was negative 2. Strict blood pressure control and resume clonidine 3. Continue with anti-platelet therapy and statin therapy 4. Anti emetics and continue Reglan 5. Pain control as needed with home medications 6. GI and DVT prophylaxis Discharge Plan: Home Plan to discharge in: 48 Hours - Advance Directives Does patient have a Living Will: No Does patient have a Durable POA for Healthcare: No - Code Status/Comfort Care Code Status Assessed: Yes Code Status: Full Code Critical Care: No Time Spent Managing PTS Care (In Minutes): 45
[2018-12-29] MEDS: cloNIDine HCl 0.1 MG TAB PO SCH ×2 (10:11→16:47)
[2018-12-29] MEDS: PANTOPRAZOLE 40MG TABLET PO SCH (10:11)
[2018-12-29] MEDS: ALPRAZOLAM 1 MG TABLET PO SCH ×3 (10:12→21:46)
[2018-12-29] MEDS: AMLODIPINE 10 MG TAB PO SCH ×2 (10:12→21:50)
[2018-12-29 10:38] LABS: Urine Appearance CLOUDY; Urine Bilirubin NEGATIVE (NEG); Urine Blood NEGATIVE (NEG); Urine Color DK YELLOW; Urine Glucose TRACE (NEG); Urine Protein NEGATIVE (NEG); Urine Specific Gravity 1.025 (1.005-1.030); Urine pH 5.5 (5.0-7.0)
[2018-12-29] MEDS: MORPHINE 2 MG/ML SYR IV PRN ×3 (10:38→23:21)
[2018-12-29 10:43] LABS: Urine Microscopic Reflex NO UMIC
--- NOTE | 2018-12-29 11:09 | EKG ---
Test Date: 2018-12-28 Test Time: 23:18:16 Sieve Maker: LISA MEASUREMENT RESULTS: Intervals: Rate: 116 AL: 154 QRSD: 72 QT: 288 QTc: 400 [place]: P: 94 AL: 154 QRS: -11 T: -30 INTERPRETIVE STATEMENTS: Sinus tachycardia Inferior infarct, age undetermined Anterolateral infarct, age undetermined Abnormal ECG Compared to ECG 09/05/2018 10:36:07 Sinus rhythm no longer present Myocardial infarct finding still present Electronically Signed On 12-29-18 11:06:12 CDT by Jeremias Gandhi
[2018-12-29] MEDS: NEPAFENAC OPTH SCH ×3 (13:00→21:00)
[2018-12-29] MEDS: HYDROCODONE/APAP 10/325 TAB PO SCH ×2 (14:06→21:47)
[2018-12-29] MEDS ORDERED: D50W 25 GM/50 ML SYRINGE IV PRN (16:13)
[2018-12-29] MEDS ORDERED: GLUCAGON 1 MG/VIAL IM PRN (16:13)
[2018-12-29] MEDS: INSULIN -REGULAR HUMAN 50 UNIT/0.5 ML ML SQ SCH ×2 (16:48→21:00)
[2018-12-29] MEDS ORDERED: QUETIAPINE 100MG TAB PO SCH (21:00)
[2018-12-29] MEDS: PROMETHAZINE 25 MG TABLET PO PRN (21:46)
[2018-12-30] MEDS: PROMETHAZINE 25 MG TABLET PO PRN (06:37)
[2018-12-30] MEDS: MORPHINE 2 MG/ML SYR IV PRN (06:37)
[2018-12-30] MEDS: NA CHLORIDE 0.9% 1,000 ML IV SCH (06:40)
[2018-12-30 07:09] LABS: Albumin 3.4 g/dL (3.4-5.0); Bilirubin Total 0.4 mg/dL (0.2-1.0); Protein, Total 6.4 g/dL (6.4-8.2)
[2018-12-30] MEDS: INSULIN -REGULAR HUMAN 50 UNIT/0.5 ML ML SQ SCH ×2 (07:30→12:39)
[2018-12-30] MEDS ORDERED: Insulin Degludec [Tresiba Flextouch U-200] SQ SCH (08:00)
[2018-12-30 08:24] LABS: Absolute Lymphocytes (CBC) 1.4 K/uL (0.7-4.9); Basophils % 0.3 % (0-1.3); Hematocrit 35.9 % (36.0-45.0); Lymphocytes % 26.4 % (15.3-44.8); MPV 10.1 fL (7.6-11.3); RBC Red Blood Cell Count 4.05 M/uL (3.86-4.86)
[2018-12-30 08:33] LABS: Blood Morphology Comment NOT SEEN (NOT SEEN); Platelet Estimate DECR; Urine White Blood Cell Casts OK
[2018-12-30] MEDS ORDERED: MONTELUKAST 10 MG TAB PO SCH (09:00)
[2018-12-30] MEDS: ALPRAZOLAM 1 MG TABLET PO SCH (09:00)
[2018-12-30] MEDS: NEPAFENAC OPTH SCH (09:00)
[2018-12-30] MEDS: HYDROCODONE/APAP 10/325 TAB PO SCH (09:00)
[2018-12-30] MEDS: cloNIDine HCl 0.1 MG TAB PO SCH ×2 (09:00→11:18)
[2018-12-30] MEDS: PANTOPRAZOLE 40MG TABLET PO SCH (11:17)
[2018-12-30] MEDS: AMLODIPINE 10 MG TAB PO SCH (11:20)
--- NOTE | 2018-12-30 13:28 | RAD REPORT ---
EXAM DESCRIPTION: Head Brain Wo Cont CLINICAL HISTORY: The patient is 68 years old and is Female; Dizziness;Headache TECHNIQUE: Axial computed tomography images of the head/brain without intravenous contrast. Sagitt al and coronal reformatted images were created and reviewed. This CT exam was performed using one o r more of the following dose reduction techniques: automated exposure control, adjustment of the mA and/or kV according to patient size, and/or use of iterative reconstruction technique. COMPARISON: No relevant prior studies available. FINDINGS: BRAIN: Unremarkable. The felipe-white matter differentiation is preserved . No hemorrhag e. No significant white matter disease. No edema. No extra-axial fluid collections. VENTRICLES: Unremarkable. No ventriculomegaly. BONES/JOINTS: No acute fracture. SOFT TISSUES: Unremarkable. SINUSES: Unremarkable as visualized. No acute sinusitis. MASTOID AIR CELLS: Unremarkable as visualized. No mastoid effusion. IMPRESSION: No acute intracranial findings. Electronically signed by: Altagracia Dickson MD 12/29/2018 3:22 AM CDT Due to temporary technical issues with the PACS/Fluency reporting system, reports are being signed by the in house radiologist as a courtesy to ensure prompt reporting. The interpreting radiologist is f ully responsible for the content of the report.
--- NOTE | 2018-12-30 13:29 | RAD REPORT ---
EXAM DESCRIPTION: CT - CT-ABD PELVIS W/O CONTRAST - 12/29/2018 5:40 am CLINICAL HISTORY: The patient is 68 years old and is Female; ABD PAIN TECHNIQUE: Axial computed tomography images of the abdomen and pelvis without intravenous contrast. Sagittal and coronal reformatted images were created and reviewed. This CT exam was performed usi ng one or more of the following dose reduction techniques: automated exposure control, adjustment o f the mA and/or kV according to patient size, and/or use of iterative reconstruction technique. COMPARISON: No relevant prior studies available. FINDINGS: LUNG BASES: Unremarkable. No mass. No consolidation. ABDOMEN: LIVER: The liver is fatty with a nodular contour. Ill-defined low attenuating lesion within the right hepatic lobe measuring 1.1 cm is present. Several smaller ill-defined low attenuating lesions a re also present throughout the liver. GALLBLADDER AND BILE DUCTS: No calcified stones. No ductal dilation. PANCREAS: Unremarkable. No ductal dilation. SPLEEN: The spleen is enlarged. ADRENALS: Unremarkable. No mass. KIDNEYS AND URETERS: No obstructing stones. No hydronephrosis. STOMACH AND BOWEL: The stomach is well distended with oral contrast. Oral contrast is present th roughout the small bowel which is normal in caliber. Stool is present throughout the colon. No eviden ce of bowel obstruction. No significant bowel wall thickening. Colonic diverticulosis is noted, witho ut associated inflammatory changes to suggest diverticulitis. PELVIS: APPENDIX: The appendix is normal in caliber without surrounding inflammation. BLADDER: Unremarkable. No stones. REPRODUCTIVE: The patient is status post hysterectomy. ABDOMEN and PELVIS: INTRAPERITONEAL SPACE: Unremarkable. No free air. No significant fluid collection. BONES/JOINTS: No acute fracture. SOFT TISSUES: The soft tissues are normal. VASCULATURE: Unremarkable. No abdominal aortic aneurysm. LYMPH NODES: Unremarkable. No enlarged lymph nodes. IMPRESSION: 1. Colonic diverticulosis without evidence of diverticulitis. 2. Cirrhotic liver with multiple ill-defined low attenuating regions. While findings could be secon carlos to cysts, underlying malignancy is not excluded. Further evaluation if not already performed is recommended. Electronically signed by: Altagracia Dickson MD 12/29/2018 3:18 AM CDT Due to temporary technical issues with the PACS/Fluency reporting system, reports are being signed by the in house radiologist as a courtesy to ensure prompt reporting. The interpreting radiologist is f benly responsible for the content of the report.
[2018-12-30 15:14] VITALS: BP 118/55; TEMP 97.3
--- NOTE | 2018-12-30 15:48 | P.SSS ---
Patient History Date of Service: 12/30/18 Reason for admission: Abdominal pain/headache/uncontrolled hypertension History of Present Illness: Patient is a 68-year-old female came to the hospital with a headache and uncontrolled blood pressure. Patient has had numerous admissions in the past for abdominal discomfort. She does state that her abdomen is hurting but the reason she came into the hospital with a headache. In the ER her CT scan was negative for any abnormalities. Her blood pressure is labile. She is on clonidine and she has not taken her medication as prescribed. This is because she has has some nausea and not able to keep anything down. She has numerous complaints similar to this in the past. At this time, she will be admitted for observation. Allergies ketorolac Allergy (Severe, Verified 05/15/14 01:15) Hives/Rash ketorolac tromethamine [From Toradol] Allergy (Mild, Verified 03/14/12 17:55) Hives/Rash Penicillins Allergy (Mild, Verified 03/14/12 17:55) Itching propoxyphene napsylate [From Darvocet-N 100] Allergy (Mild, Verified 05/19/13 00 :28) Nausea/Vomiting Home medications list reviewed: Yes Home Medications: ALPRAZolam [Xanax*] 2 mg PO TID 08/03/16 Clonidine HCl [Catapres*] 0.2 mg PO DAILY 03/25/17 Insulin Degludec [Tresiba Flextouch U-200] 80 units SQ DAILY WITH BREAKFAST 11/02 Montelukast [Singulair*] 10 mg PO DAILY 03/25/17 Quetiapine Fumarate [Seroquel] 800 mg PO BEDTIME 03/25/17 Guaifen W/Codeine Syrup [ROBITUSSIN A-C Syrup*] 5 ml PO QID PRN #1 bottle Mometasone/Formoterol [Dulera 200 Mcg/5 Mcg Inhaler] 2 puff IH BID #1 inhaler Umeclidinium [place] [Incruse Ellipta] 62.5 mcg IH DAILY #30 blst.w.dev Hydrocodone 10/APAP 325 [[place] 10/325*] 1 tab PO TID 09/06/18 Amlodipine [Norvasc*] 10 mg PO BID 12/29/18 Metoclopramide HCl [Reglan] 10 mg PO DAILY PRN 12/29/18 Nepafenac [Ilevro] 1 drop OPTH QID 12/29/18 Pantoprazole [Protonix Tab*] 40 mg PO DAILY 12/29/18 - Past Medical/Surgical History Has patient received pneumonia vaccine in the past: No Diabetic: Yes -: CAD -: COPD -: Diabetes mellitus type 2 -: Hypertension -: Chronic pain syndrome -: Liver cirrhosis, fatty liver -: Chronic thrombocytopenia -: Hepatitis-C -: History CVA -: Morbid obesity -: Obstructive sleep apnea -: glaucoma -: Right knee surgery -: Cholecystectomy -: Hysterectomy Psychosocial/ Personal History: The patient is single. She has 3 children. She currently lives with her granddaughter. - Family History Father -: Cancer Mother -: Lung disease, Cancer, Other (see notes) Notes: brain cancer - Social History Smoking Status: Never smoker Alcohol use: No CD- Drugs: Yes Caffeine use: Yes Place of Residence: Home Review of Systems 10-point ROS is otherwise unremarkable Physical Examination - Vital Signs Temperature: 97.3 F Blood Pressure: 118/55 Pulse: 80 Respirations: 16 Pulse Ox (%): 95 - Physical Exam General: Alert, In no apparent distress, Obese HEENT: Atraumatic, PERRLA, Mucous membr. moist/pink, EOMI, Sclerae nonicteric Neck: Supple, 2+ carotid pulse no bruit, No LAD, Without JVD or thyroid abnormality Respiratory: Clear to auscultation bilaterally, Normal air movement Cardiovascular: Regular rate/rhythm, Normal S1 S2 Gastrointestinal: Normal bowel sounds, No tenderness Musculoskeletal: No tenderness Integumentary: No rashes Neurological: Normal gait, Normal speech, Normal strength at 5/5 x4 extr, Normal tone, Normal affect Lymphatics: No axilla or inguinal lymphadenopathy Treatment Summary: Patient was admitted for abdominal discomfort, nausea and vomiting. In the ER her blood pressure was found to be high, likely secondary to her not taking the clonidine as prescribed. Her blood pressure medications were started. CT of the head was negative. Antibiotics was started. Patient had a recent glaucoma/ eye surgery and states that after her recent follow up with eye doctor, she was told she was inflammation behind the eye and was provided with steroid eye drops. She states that ever since the surgery, she has had these headaches and light sensitivity. Her symptoms did improve to once her blood pressure was controlled. Prior to discharge, she was alert oriented x3, in no acute distress and hemodynamically stable. She was educated on medication compliance. Her diagnoses and treatment plan was explained to her, she was understanding and then she was discharged home in a safe and stable manner. She will follow up with the primary care physician in a few days and she will also follow up with her quality systems specialist and a few days. - Disposition Discharge Date: 12/30/18 Disposition: ROUTINE DISCHARGE Condition: GOOD Patient Discharge Instructions: Please follow up with your primary care physician in 2-3 days. Please follow up with your quality systems specialist in 2-3 days. Return to the Emergency room for worsening symptoms. Diet: AHA Activity: Ad dia Time Spent Managing Pts Care (In Minutes): 55
== END 2018-12-30 13:32 | disposition home or self-care (01) ==
LOC: ER 22:43 → 4TH 12-29 05:03
PROVIDERS: ADMIT Hospitalist; ATTEND Family Medicine
DX: I10 Essential (primary) hypertension (principal); R11.2 Nausea with vomiting, unspecified; R10.9 Unspecified abdominal pain; I25.10 Atherosclerotic heart disease of native coronary artery without angina pectoris; J44.9 Chronic obstructive pulmonary disease, unspecified; E11.9 Type 2 diabetes mellitus without complications; G89.4 Chronic pain syndrome; R51 Headache; E78.5 Hyperlipidemia, unspecified; G47.33 Obstructive sleep apnea (adult) (pediatric); E66.01 Morbid (severe) obesity due to excess calories; Z68.37 Body mass index [BMI] 37.0-37.9, adult
CPT/HCPCS: 96361; 93005; 85025 ×2; 80048; 36415 ×2; 83735; 85610; 82962 ×3; 80076; 81003; 84484; 83690; 80053; 83880; 70450; 71045; 74176; 96375; 96374; 99285; J2550; C9113; J2270 ×5; J1170; J7030 ×3; J2405 ×2; G0378 ×3

== ENCOUNTER 2019-04-09 13:07 | Emergency (ER) | payer OTHER ==
--- OUTSIDE RECORDS SUMMARY | 2019-04-09 13:10 | XMS REPORT ---
:1950 [facility] Address [address] [place] [address] Dr. Melo [address] [place] [id number] Care Team Providers Name Role Phone Unavailable Unavailable Unavailable Problems This patient has no known problems. Allergies, Adverse Reactions, Alerts This patient has no known allergies or adverse reactions. Medications This patient has no known medications.
[2019-04-09 14:25] LABS: Absolute Lymphocytes (CBC) 1.4 K/uL (0.7-4.9); Basophils % 0.4 % (0-1.3); Hematocrit 44.5 % (36.0-45.0); Lymphocytes % 23.4 % (15.3-44.8); MPV 10.2 fL (7.6-11.3); RBC Red Blood Cell Count 5.14 M/uL (3.86-4.86)
[2019-04-09 14:37] LABS: Albumin 3.9 g/dL (3.4-5.0); Bilirubin Direct 0.1 mg/dL (0-0.2); Bilirubin Total 0.5 mg/dL (0.2-1.0); Potassium 4.1 mmol/L (3.5-5.1)
[2019-04-09] MEDS ORDERED: PROMETHAZINE 25 MG/ML VIAL ONE (15:29)
[2019-04-09] MEDS ORDERED: MORPHINE 4 MG/ML SYR ONE (15:30)
--- NOTE | 2019-04-09 15:47 | RAD REPORT ---
EXAM DESCRIPTION: CT - Abdomen Pelvis Wo Contrast - 04/09/2019 3:36 pm CLINICAL HISTORY: Abdominal pain. ABD PAIN COMPARISON: CT-ABD PELVIS W/O CONTRAST dated 12/29/2018; Abdomen Pelvis W Contrast dated 9 TECHNIQUE: CT imaging of the abdomen and pelvis was performed without contrast. Solid organ, bowel a nd vascular assessment is limited due to lack of IV and oral contrast. All CT scans are performed using dose optimization technique as appropriate and may include automated exposure control or mA/KV adjustment according to patient size. FINDINGS: Mild linear subsegmental atelectasis is present in both lung bases posteriorly. Nodular contour throughout the liver parenchyma seen compatible with cirrhosis. Several low-density l iver lesions are seen, unchanged since recent comparative study but incompletely characterized on addison ited noncontrast CT. Cholecystectomy.The pancreas, adrenal glands, spleen and kidneys are within norm al limits. No bowel obstruction, free air, free fluid or abscess. Diverticulosis coli seen involving the descend ing colon and sigmoid colon without diverticulitis. The appendix is normal. The osseous structures are within normal limits. IMPRESSION: Prominent liver cirrhosis. Colonic diverticulosis is seen without diverticulitis. A limited non-contrast examination was performed as detailed.
--- NOTE | 2019-04-09 15:51 | ER ---
Nurse's Notes [facility] Name: Sheila Vila Age: 68 yrs Sex: Female : 1950 Arrival Date: 04/09/2019 Time: 13:09 Bed 27 Private MD: Malvin Huston E Diagnosis: Upper abdominal pain, unspecified Presentation: 04/09 13:12 Presenting complaint: Patient states: I was feeling sick and weak for the last week. ca1 Diarrhea last week, took Imodium it went away. 2 days ago, diarrhea started again. Vomiting started 3 days ago. Pt C/O abdominal cramps and headache, tingling sensation on face. Denies Fever. Transition of care: patient was not received from another setting of care. Onset of symptoms was April 09, 2019. Risk Assessment: Do you want to hurt yourself or someone else? Patient reports no desire to harm self or others. Initial Sepsis Screen: Does the patient meet any 2 criteria? No. Patient's initial sepsis screen is negative. Does the patient have a suspected source of infection? No. Patient's initial sepsis screen is negative. Care prior to arrival: None. 13:12 Method Of Arrival: Wheelchair ca1 13:12 Acuity: SYLVESTER 3 ca1 Historical: - Allergies: 13:16 Darvocet-N 100; ca1 13:16 PENICILLINS; ca1 13:16 Toradol; ca1 13:16 PROPOXYPHENE; ca1 - PMHx: 13:16 Asthma; Cirrhosis; COPD; Diabetes - IDDM; Hepatitis; resolved; Hypertension; ca1 Pancreatitis; Pneumonia; - PSHx: 13:16 Knee surgery; Hysterectomy; Cholecystectomy; cataract sx; ca1 - Immunization history:: Adult Immunizations up to date, Pneumococcal vaccine is up to date, Flu vaccine is not up to date. - Social history:: Smoking status: Patient/guardian denies using tobacco. - Ebola Screening: : Patient negative for fever greater than or equal to 101.5 degrees Fahrenheit, and additional compatible Ebola Virus Disease symptoms Patient denies exposure to infectious person Patient denies travel to an Ebola-affected area in the 21 days before illness onset No symptoms or risks identified at this time. Screenin:34 Abuse screen: Denies threats or abuse. Denies injuries from another. Nutritional rv screening: No deficits noted. Tuberculosis screening: No symptoms or risk factors identified. Fall Risk None identified. Assessment: 14:00 General: Appears in no apparent distress. Behavior is calm, cooperative. rv 14:00 Pain: Complains of pain in epigastric area. Neuro: Level of Consciousness is awake, rv alert, obeys commands, Oriented to person, place, time, situation. GI: Abdomen is distended, Bowel sounds present X 4 quads. Abdomen is tender to palpation in epigastric area. Derm: Skin is intact. 15:32 Reassessment: failed attempts to initiate IV access, even with the use of ultrasound. rv referred to provider and decided to the scan without the contrast and give the medication thru IM. patient taken to CT scan. Vital Signs: 13:16 BP 178 / 81; Pulse 88; Resp 17 S; Temp 98.5(O); Pulse Ox 100% on R/A; Weight 97.98 kg ca1 (R); Height 5 ft. 4 in. (162.56 cm) (R); Pain 9/10; 16:10 BP 147 / 86; Pulse 84; Resp 18; Pulse Ox 100% on R/A; rv 13:16 Body Mass Index 37.08 (97.98 kg, 162.56 cm) ca1 ED Course: 13:09 Patient arrived in ED. mr 13:10 Malvin Huston MD is Private Physician. mr 13:15 Triage completed. ca1 13:16 Arm band placed on right wrist. ca1 13:34 [facility]ellez [facility]C [facility]. kb 13:34 Robert Wilson MD is Attending Physician. kb 14:38 Mendel Lynn RN is Primary Nurse. rv 15:32 Missed attempt(s): 22 gauge 24 gauge in left in right forearm. rv 15:34 Patient has correct armband on for positive identification. Pulse ox on. NIBP on. rv 16:09 No provider procedures requiring assistance completed. Patient did not have IV access rv during this emergency room visit. Administered Medications: 15:50 Drug: Phenergan 6.25 mg {Note: given IM, right deltoid.} Route: IVP; Site: Other; rv 16:06 Follow up: Response: No adverse reaction rv 15:50 Drug: morphine 4 mg {Note: given IM, left deltoid; RASS 0.} Route: IVP; Site: Other; rv 16:06 Follow up: Response: No adverse reaction rv 16:07 CANCELLED (no IV access): NS 0.9% 1000 ml IV at 1000 ml once rv Outcome: 15:51 Discharge ordered by MD. moody 16:09 Discharged to home ambulatory. rv 16:09 Condition: improved 16:09 Discharge instructions given to patient, Instructed on discharge instructions, follow up and referral plans. medication usage, Demonstrated understanding of instructions, follow-up care, medications, Prescriptions given X 2. 16:10 Patient left the ED. rv Signatures: Dispatcher [employer] EDMarixa Liao, INSULATION MANAGER-C INSULATION MANAGER-Kimberly Willoughby mr Mendel Lynn, RN RN rv Joselin Crawford RN RN ca1 Corrections: (The following items were deleted from the chart) 15:42 15:39 In radiology for Abdomen Pelvis W Con+CT.RAD.JOSEPH. RAVINDERTX RAVINDERTX
--- NOTE | 2019-04-09 15:52 | EDPHYS ---
Physician Documentation [facility] Name: Sheila Vila Age: 68 yrs Sex: Female : 1950 Arrival Date: 04/09/2019 Time: 13:09 Bed 27 Private MD: Malvin Huston E ED Physician Robert Wilson HPI: 04/09 14:10 This 68 yrs old Black Female presents to ER via Wheelchair with complaints of Abdominal kb Pain, Diarrhea, Headache. 14:10 The patient presents with abdominal pain in the upper abdomen. Onset: The kb symptoms/episode began/occurred 1 week(s) ago. The symptoms do not radiate. Associated signs and symptoms: Pertinent positives: nausea, vomiting, and diarrhea. The symptoms are described as constant. Modifying factors: The symptoms are alleviated by nothing, the symptoms are aggravated by nothing. Severity of pain: At its worst the pain was moderate in the emergency department the pain is unchanged. The patient has not experienced similar symptoms in the past. The patient has not recently seen a physician. Historical: - Allergies: 13:16 Darvocet-N 100; ca1 13:16 PENICILLINS; ca1 13:16 Toradol; ca1 13:16 PROPOXYPHENE; ca1 - PMHx: 13:16 Asthma; Cirrhosis; COPD; Diabetes - IDDM; Hepatitis; resolved; Hypertension; ca1 Pancreatitis; Pneumonia; - PSHx: 13:16 Knee surgery; Hysterectomy; Cholecystectomy; cataract sx; ca1 - Immunization history:: Adult Immunizations up to date, Pneumococcal vaccine is up to date, Flu vaccine is not up to date. - Social history:: Smoking status: Patient/guardian denies using tobacco. - Ebola Screening: : Patient negative for fever greater than or equal to 101.5 degrees Fahrenheit, and additional compatible Ebola Virus Disease symptoms Patient denies exposure to infectious person Patient denies travel to an Ebola-affected area in the 21 days before illness onset No symptoms or risks identified at this time. ROS: 14:09 Constitutional: Negative for fever, chills, and weight loss, Neck: Negative for injury, kb pain, and swelling, Cardiovascular: Negative for chest pain, palpitations, and edema, Respiratory: Negative for shortness of breath, cough, wheezing, and pleuritic chest pain, Back: Negative for injury and pain, MS/Extremity: Negative for injury and deformity, Skin: Negative for injury, rash, and discoloration, Neuro: Negative for headache, weakness, numbness, tingling, and seizure. 14:09 Abdomen/GI: Positive for abdominal pain, nausea, vomiting, and diarrhea. Exam: 14:08 Constitutional: This is a well developed, well nourished patient who is awake, alert, kb and in no acute distress. Head/Face: Normocephalic, atraumatic. ENT: Nares patent. No nasal discharge, no septal abnormalities noted. Tympanic membranes are normal and external auditory canals are clear. Oropharynx with no redness, swelling, or masses, exudates, or evidence of obstruction, uvula midline. Mucous membranes moist. Neck: Trachea midline, no thyromegaly or masses palpated, and no cervical lymphadenopathy. Supple, full range of motion without nuchal rigidity, or vertebral point tenderness. No Meningismus. Chest/axilla: Normal chest wall appearance and motion. Nontender with no deformity. No lesions are appreciated. Cardiovascular: Regular rate and rhythm with a normal S1 and S2. No gallops, murmurs, or rubs. Normal PMI, no JVD. No pulse deficits. Respiratory: Lungs have equal breath sounds bilaterally, clear to auscultation and percussion. No rales, rhonchi or wheezes noted. No increased work of breathing, no retractions or nasal flaring. Back: No spinal tenderness. No costovertebral tenderness. Full range of motion. Skin: Warm, dry with normal turgor. Normal color with no rashes, no lesions, and no evidence of cellulitis. MS/ Extremity: Pulses equal, no cyanosis. Neurovascular intact. Full, normal range of motion. Neuro: Awake and alert, GCS 15, oriented to person, place, time, and situation. Cranial nerves II-XII grossly intact. Motor strength 5/5 in all extremities. Sensory grossly intact. Cerebellar exam normal. Normal gait. 14:08 Abdomen/GI: Inspection: abdomen appears normal, Bowel sounds: normal, in all quadrants, Palpation: soft, in all quadrants, mild abdominal tenderness, in all quadrants. Vital Signs: 13:16 BP 178 / 81; Pulse 88; Resp 17 S; Temp 98.5(O); Pulse Ox 100% on R/A; Weight 97.98 kg ca1 (R); Height 5 ft. 4 in. (162.56 cm) (R); Pain 9/10; 16:10 BP 147 / 86; Pulse 84; Resp 18; Pulse Ox 100% on R/A; rv 13:16 Body Mass Index 37.08 (97.98 kg, 162.56 cm) ca1 MDM: 13:36 Patient medically screened. kb 14:08 Data reviewed: vital signs, nurses notes. Data interpreted: Pulse oximetry: on room air kb is 100 %. Interpretation: normal. 15:49 Counseling: I had a detailed discussion with the patient and/or guardian regarding: the kb historical points, exam findings, and any diagnostic results supporting the discharge/admit diagnosis, lab results, radiology results, the need for outpatient follow up, a family practitioner, to return to the emergency department if symptoms worsen or persist or if there are any questions or concerns that arise at home. 04/09 13:42 Order name: Basic Metabolic Panel; Complete Time: 14:39 kb 04/09 13:42 Order name: CBC with Diff; Complete Time: 14:28 kb 04/09 13:42 Order name: Hepatic Function; Complete Time: 14:39 kb 04/09 13:42 Order name: Lipase; Complete Time: 14:39 kb 04/09 15:42 Order name: Abdomen ; Complete Time: 15:48 EDMS 04/09 13:42 Order name: Labs collected and sent; Complete Time: 14:12 kb Administered Medications: 15:50 Drug: Phenergan 6.25 mg {Note: given IM, right deltoid.} Route: IVP; Site: Other; rv 16:06 Follow up: Response: No adverse reaction rv 15:50 Drug: morphine 4 mg {Note: given IM, left deltoid; RASS 0.} Route: IVP; Site: Other; rv 16:06 Follow up: Response: No adverse reaction rv 16:07 CANCELLED (no IV access): NS 0.9% 1000 ml IV at 1000 ml once rv Disposition: 17:35 Co-signature as Attending Physician, Robert Wilson MD I agree with the assessment and kdr plan of care. Disposition: 04/09/19 15:51 Discharged to Home. Impression: Upper abdominal pain, unspecified. - Condition is Stable. - Discharge Instructions: Abdominal Pain, Adult, [id number]. - Prescriptions for Bentyl 20 mg Oral Tablet - take 1 tablet by ORAL route every 6 hours As needed; 20 tablet. promethazine 25 mg Oral Tablet - take 1 tablet by ORAL route every 8 hours As needed; 20 tablet. - Medication Reconciliation Form, Thank You Letter, Antibiotic Education, Prescription Opioid Use form. - Follow up: Emergency Department; When: As needed; Reason: Worsening of condition. Follow up: Private Physician; When: 2 - 3 days; Reason: Recheck today's complaints, Continuance of care, Re-evaluation by your physician. Signatures: Dispatcher [employer] EDND Marixa Tellez, GLOBAL PROGRAM DIRECTOR-C GLOBAL PROGRAM DIRECTOR-Ckb Robert Wilson MD MD kdr Mendel Lynn, RN RN rv Acob, Joselin RN RN ca1 Corrections: (The following items were deleted from the chart) 15:42 14:41 Abdomen Pelvis W Con+CT.RAD.BRZ ordered. [facility] 16:06 13:42 IV Saline Lock ordered. [facility] 16:07 13:42 NS 0.9% 1000 ml IV at 1000 ml once ordered. rv 16:10 15:51 04/09/2019 15:51 Discharged to Home. Impression: Upper abdominal pain, rv unspecified. Condition is Stable. Discharge Instructions: Abdominal Pain, Adult, [id number]. Prescriptions for Bentyl 20 mg Oral Tablet - take 1 tablet by ORAL route every 6 hours As needed; 20 tablet, promethazine 25 mg Oral Tablet - take 1 tablet by ORAL route every 8 hours As needed; 20 tablet. and Forms are Medication Reconciliation Form, Thank You Letter, Antibiotic Education, Prescription Opioid Use. Follow up: Emergency Department; When: As needed; Reason: Worsening of condition. Follow up: Private Physician; When: 2 - 3 days; Reason: Recheck today's complaints, Continuance of care, Re-evaluation by your physician. kb
[2019-04-09 16:15] VITALS: TEMP 98.5; O2SAT 100
[2019-04-09 16:16] VITALS: BP 147/86
== END 2019-04-09 16:10 | disposition home or self-care (01) ==
LOC: ER 13:07
DX: R10.10 Upper abdominal pain, unspecified (principal); I10 Essential (primary) hypertension; Z88.0 Allergy status to penicillin; Z88.5 Allergy status to narcotic agent; Z88.8 Allergy status to other drugs, medicaments and biological substances
CPT/HCPCS: 85025; 80048; 36415; 80076; 83690; 74176; 96375; 96374; 99283; J2550

== ENCOUNTER 2019-07-21 19:45 | Emergency (ER) | payer OTHER ==
--- OUTSIDE RECORDS SUMMARY | 2019-07-21 19:48 | XMS REPORT ---
:1950 [facility] Organization [facility] Address [address] [place] [address] Dr. Melo [address] [place] [id number] Care Team Providers Name Role Phone Unavailable Unavailable Unavailable Problems This patient has no known problems. Allergies, Adverse Reactions, Alerts This patient has no known allergies or adverse reactions. Medications This patient has no known medications.
[2019-07-21] MEDS ORDERED: LIDOCAINE 1% W/EPI 1:100,000 MDV 20 ML VIAL ONE (20:12)
[2019-07-21] MEDS ORDERED: LIDOCAINE 1% MPF 5 ML VIAL ONE (20:35)
[2019-07-21] MEDS ORDERED: BUPIVACAINE 0.5% PF 10 ML VIAL ONE (20:35)
[2019-07-21] MEDS ORDERED: FENTANYL CITR 100 MCG/2 ML ONE (20:35)
[2019-07-21] MEDS ORDERED: NA CHLORIDE 0.9% 500 ML ONE (20:36)
[2019-07-21] MEDS ORDERED: ONDANSETRON 4 MG/2 ML VIAL ONE (20:36)
[2019-07-21 21:00] LABS: Absolute Lymphocytes (CBC) 0.9 K/uL (0.7-4.9); Basophils % 0.5 % (0-1.3); Hematocrit 38.8 % (36.0-45.0); Lymphocytes % 19.4 % (15.3-44.8); MPV 10.5 fL (7.6-11.3)
[2019-07-21] MEDS ORDERED: MORPHINE 4 MG/ML SYR ONE (21:03)
[2019-07-21 21:18] LABS: Platelet Estimate DECR; Urine White Blood Cell Casts OK
[2019-07-21 21:19] LABS: Blood Morphology Comment NOT SEEN (NOT SEEN)
[2019-07-21] MEDS ORDERED: DOXYCYCLINE 100 MG CAP PO ONE (21:24)
[2019-07-21] MEDS ORDERED: SMZ./TMP. 800/160 MG TABLET ONE (21:24)
--- NOTE | 2019-07-21 21:26 | ER ---
Nurse's Notes [facility] Name: Sheila Vila Age: 68 yrs Sex: Female : 1950 Arrival Date: 07/21/2019 Time: 19:48 Bed 23 Private MD: Malvin Huston E Diagnosis: Ingrowing nail;Type 1 diabetes mellitus Presentation: 07/20 19:58 Chief complaint: Patient states: she has had left big toe pain x [address] Duke viera on Wednesday who removed the toenail but now it is swollen, discolored, bleeding, and has a discharge and is very painful. Coronavirus screen: Patient denies fever greater than 100.4F, cough, shortness of breath, or difficulty breathing. Proceed with normal triage process. Ebola Screen: No symptoms or risks identified at this time. Initial Sepsis Screen: Does the patient meet any 2 criteria? No. Patient's initial sepsis screen is negative. Does the patient have a suspected source of infection? No. Patient's initial sepsis screen is negative. Risk Assessment: Do you want to hurt yourself or someone else? Patient reports no desire to harm self or others. Onset of symptoms was June 2019. 19:58 Method Of Arrival: Ambulatory bb 19:58 Acuity: SYLVESTER 3 bb Historical: - Allergies: 20:02 Darvocet-N 100; bb 20:02 PENICILLINS; bb 20:02 PROPOXYPHENE; bb 20:02 Toradol; bb - Home Meds: 20:02 brio inhaler [Active]; clonidine HCl 0.2 mg Oral tab [Active]; Invokana 100 mg Oral tab bb 1 tab once daily [Active]; levamir 50 UNITS twice a day [Active]; lisinopril-hydrochlorothiazide Oral [Active]; Metformin Oral 3 times per day [Active]; Hayden 10-325 mg Oral tab three times a day [Active]; Novolog Sub-Q [Active]; Seroquel Oral [Active]; Tresiba FlexTouch U-100 subcutaneous [Active]; Tylenol #3 Oral [Active]; Victoza 2-Abhay subcutaneous [Active]; Xanax 2 mg Oral tab 3 times per day [Active]; - PMHx: 20:02 Asthma; Cirrhosis; COPD; Diabetes - IDDM; Hepatitis; resolved; Hypertension; bb Pancreatitis; Pneumonia; - PSHx: 20:02 Knee surgery; Hysterectomy; Cholecystectomy; cataract sx; bb - Immunization history:: Adult Immunizations up to date, Last tetanus immunization: unknown. - Social history:: Smoking status: Patient denies any tobacco usage or history of. Screenin:13 Abuse screen: Denies threats or abuse. Denies injuries from another. Nutritional lp1 screening: No deficits noted. Tuberculosis screening: No symptoms or risk factors identified. Fall Risk None identified. Assessment: 20:00 General: Appears uncomfortable, Behavior is cooperative, appropriate for age. Pain: lp1 Complains of pain in left first toe Pain currently is 9 out of 10 on a pain scale. Quality of pain is described as sharp, Pain began 2 weeks ago Aggravated by increased activity, weight bearing. Neuro: No deficits noted. Cardiovascular: Patient's skin is warm and dry. Respiratory: Respiratory effort is even, unlabored. GI: Reports nausea. : No signs and/or symptoms were reported regarding the genitourinary system. EENT: No signs and/or symptoms were reported regarding the EENT system. Derm: Wound noted Left first toenail Wound is blackened tissue noted to top of left great toe toenail; patient states drainage from site at home. Musculoskeletal: No deficits noted. 20:50 Reassessment: Provider notified of patient stating "Fentanyl doesn't do anything for my lp1 pain"; verbal order for Morphine 4 mg IV now. 21:35 Reassessment: Lab at bedside for recollection. lp1 22:20 Reassessment: Patient demonstrates understanding of wound care, use of Bactroban to lp1 nail bed of great toe and wrapped to keep site clean; aware of follow up needed, given on discharge instructions. Vital Signs: 19:58 BP 138 / 111; Pulse 122; Resp 18 S; Temp 98.3(O); Pulse Ox 98% on R/A; Weight 95.71 kg bb (R); Height 5 ft. 4 in. (162.56 cm) (R); Pain 9/10; 20:12 BP 163 / 100; Pulse 114; Resp 18; Pulse Ox 97% on R/A; lp1 21:15 BP 159 / 90; Pulse 103; Resp 18; Pulse Ox 98% on R/A; lp1 22:15 BP 150 / 85; Pulse 100; Resp 18; Pulse Ox 98% on R/A; lp1 19:58 Body Mass Index 36.22 (95.71 kg, 162.56 cm) ED Course: 19:48 Patient arrived in ED. mr 19:49 Malvin Huston MD is Private Physician. mr 19:52 Merlin Chang MD is Attending Physician. [facility] 20:00 Triage completed. 20:00 Maylin Farah, RN is Primary Nurse. lp1 20:02 Arm band placed on Patient placed in an exam room, on a stretcher, on pulse oximetry. bb 20:13 Patient has correct armband on for positive identification. lp1 20:45 Inserted saline lock: 22 gauge in right antecubital area, using aseptic technique. lp1 Blood collected. 20:45 Initial lab(s) drawn, by mo, sent to lab. lp1 21:04 Foot Left 3 View XRAY In Process Unspecified. EDMS 21:15 Assist provider with I \\T\\ D: of an abscess on left great toe Set up I\\T\\D tray. Performed lp 1 by Merlin Chang MD Dressing with Xeroform, 2x2's, kerlix. 21:25 Malvin Huston MD is Referral Physician. [facility] 21:25 Shon Wall MD is Referral Physician. [facility] 21:25 Referral Physician role handed off by Shon Wall MD [facility] 21:25 Ga Saleh DPM is Referral Physician. nolvia 21:43 Ortho shoe applied to left foot. lp1 22:20 IV discontinued, No redness/swelling at site. Pressure dressing applied. lp1 Administered Medications: 20:08 CANCELLED (Duplicate Order): Bactrim (160 mg-800 mg (DS) 1 tablet PO once nolvia 20:08 CANCELLED (Duplicate Order): Doxycycline 200 mg PO once nolvia 20:45 Drug: NS 0.9% 500 ml Route: IV; Rate: bolus; Site: right antecubital; lp1 22:15 Follow up: IV Status: Completed infusion; IV Intake: 350ml lp1 21:00 Drug: Lidocaine (1 %) 5 ml Volume: 5 ml; Route: Infiltration; lp1 21:00 Drug: Bupivacaine (0.5 %) 5 ml Volume: 10 ml; Route: Infiltration; lp1 21:00 Drug: Zofran (Ondansetron) 4 mg Route: IVP; Site: right antecubital; lp1 22:00 Follow up: Response: No adverse reaction; Nausea is decreased lp1 21:00 Drug: morphine 4 mg Route: IVP; Site: right antecubital; lp1 22:00 Follow up: Response: Pain is decreased lp1 21:14 Not Given (Patient Refused): fentaNYL (PF) 25 mcg IVP once; RASS on ADMIN: Combtv4, lp1 Very Agttd3, Agttd2, Rstlss1, AlertClm0, Drwsy-1, Lt Sdtn-2, Mod Sdtn-3, Dp Sdtn-4, UnArsble-5 21:14 Not Given (Patient Refused): fentaNYL (PF) 25 mcg IVP once; RASS on ADMIN: Combtv4, lp1 Very Agttd3, Agttd2, Rstlss1, AlertClm0, Drwsy-1, Lt Sdtn-2, Mod Sdtn-3, Dp Sdtn-4, UnArsble-5 21:20 Drug: Doxycycline 200 mg Route: PO; lp1 22:15 Follow up: Response: No adverse reaction lp1 21:20 Drug: Bactrim (160 mg-800 mg (DS) 1 tablet Route: PO; lp1 22:15 Follow up: Response: No adverse reaction lp1 Intake: 22:15 IV: 350ml; Total: 350ml. lp1 Outcome: 21:25 Discharge ordered by MD. de souza 22:25 Discharged to home via wheelchair, with family. lp1 22:25 Condition: good 22:25 Discharge instructions given to patient, Instructed on discharge instructions, follow up and referral plans. medication usage, wound care, Demonstrated understanding of instructions, follow-up care, medications, wound care, Prescriptions given X x5 22:30 Patient left the ED. lp1 Signatures: Dispatcher [employer] EDMerlin Vale MD MD cha Rivera, Verónica Ferrari, RN RN Maylin Ballesteros, VIOLETTE RN lp1 Corrections: (The following items were deleted from the chart) 22:43 22:42 Patient left the ED. lp1 lp1
--- NOTE | 2019-07-21 21:27 | EDPHYS ---
Physician Documentation [facility] Name: Sheila Vila Age: 68 yrs Sex: Female : 1950 Arrival Date: 07/21/2019 Time: 19:48 Bed 23 Private MD: Malvin Huston E ED Physician Merlin Chang HPI: 07/20 20:10 This 68 yrs old Black Female presents to ER via Ambulatory with complaints of Toe nolvia infection, Nausea, Leg Pain. 20:10 The patient presents to the emergency department with nausea, vomiting. Onset: The nolvia symptoms/episode began/occurred 2 day(s) ago. Historical: - Allergies: 20:02 Darvocet-N 100; bb 20:02 PENICILLINS; bb 20:02 PROPOXYPHENE; bb 20:02 Toradol; bb - Home Meds: 20:02 brio inhaler [Active]; clonidine HCl 0.2 mg Oral tab [Active]; Invokana 100 mg Oral tab bb 1 tab once daily [Active]; levamir 50 UNITS twice a day [Active]; lisinopril-hydrochlorothiazide Oral [Active]; Metformin Oral 3 times per day [Active]; [place] 10-325 mg Oral tab three times a day [Active]; Novolog Sub-Q [Active]; Seroquel Oral [Active]; Tresiba FlexTouch U-100 subcutaneous [Active]; Tylenol #3 Oral [Active]; Victoza 2-Abhay subcutaneous [Active]; Xanax 2 mg Oral tab 3 times per day [Active]; - PMHx: 20:02 Asthma; Cirrhosis; COPD; Diabetes - IDDM; Hepatitis; resolved; Hypertension; bb Pancreatitis; Pneumonia; - PSHx: 20:02 Knee surgery; Hysterectomy; Cholecystectomy; cataract sx; bb - Immunization history:: Adult Immunizations up to date, Last tetanus immunization: unknown. - Social history:: Smoking status: Patient denies any tobacco usage or history of. ROS: 20:10 Constitutional: Negative for fever, chills, and weight loss, Eyes: Negative for injury, nolvia pain, redness, and discharge, ENT: Negative for injury, pain, and discharge, Neck: Negative for injury, pain, and swelling, Respiratory: Negative for shortness of breath, cough, wheezing, and pleuritic chest pain, Abdomen/GI: Negative for abdominal pain, nausea, vomiting, diarrhea, and constipation, Back: Negative for injury and pain, : Negative for injury, bleeding, discharge, and swelling, Skin: Negative for injury, rash, and discoloration, Neuro: Negative for headache, weakness, numbness, tingling, and seizure, Psych: Negative for depression, anxiety, suicide ideation, homicidal ideation, and hallucinations, Allergy/Immunology: Negative for hives, rash, and allergies, Endocrine: Negative for neck swelling, polydipsia, polyuria, polyphagia, and marked weight changes, Hematologic/Lymphatic: Negative for swollen nodes, abnormal bleeding, and unusual bruising. 20:10 Cardiovascular: Positive for palpitations. 20:10 MS/extremity: Positive for pain, swelling, tenderness, of the Left first toenail. Exam: 20:10 Constitutional: This is a well developed, well nourished patient who is awake, alert, nolvia and in no acute distress. Head/Face: Normocephalic, atraumatic. Eyes: Pupils equal round and reactive to light, extra-ocular motions intact. Lids and lashes normal. Conjunctiva and sclera are non-icteric and not injected. Cornea within normal limits. Periorbital areas with no swelling, redness, or edema. ENT: Nares patent. No nasal discharge, no septal abnormalities noted. Tympanic membranes are normal and external auditory canals are clear. Oropharynx with no redness, swelling, or masses, exudates, or evidence of obstruction, uvula midline. Mucous membranes moist. Neck: Trachea midline, no thyromegaly or masses palpated, and no cervical lymphadenopathy. Supple, full range of motion without nuchal rigidity, or vertebral point tenderness. No Meningismus. Chest/axilla: Normal chest wall appearance and motion. Nontender with no deformity. No lesions are appreciated. Respiratory: Lungs have equal breath sounds bilaterally, clear to auscultation and percussion. No rales, rhonchi or wheezes noted. No increased work of breathing, no retractions or nasal flaring. Abdomen/GI: Soft, non-tender, with normal bowel sounds. No distension or tympany. No guarding or rebound. No evidence of tenderness throughout. Back: No spinal tenderness. No costovertebral tenderness. Full range of motion. Skin: Warm, dry with normal turgor. Normal color with no rashes, no lesions, and no evidence of cellulitis. Neuro: Awake and alert, GCS 15, oriented to person, place, time, and situation. Cranial nerves II-XII grossly intact. Motor strength 5/5 in all extremities. Sensory grossly intact. Cerebellar exam normal. Normal gait. Psych: Awake, alert, with orientation to person, place and time. Behavior, mood, and affect are within normal limits. 20:10 Cardiovascular: Rate: tachycardic, Rhythm: regular, Pulses: Pulses are 4+ in bilateral radial, brachial, femoral, popliteal, posterior tibial and and dorsalis pedis arteries.. Heart sounds: normal, normal S1and S2, no S3 or S4, no murmur, Edema: is not appreciated, JVD: is not appreciated. Vital Signs: 19:58 BP 138 / 111; Pulse 122; Resp 18 S; Temp 98.3(O); Pulse Ox 98% on R/A; Weight 95.71 kg bb (R); Height 5 ft. 4 in. (162.56 cm) (R); Pain 9/10; 20:12 BP 163 / 100; Pulse 114; Resp 18; Pulse Ox 97% on R/A; lp1 21:15 BP 159 / 90; Pulse 103; Resp 18; Pulse Ox 98% on R/A; lp1 22:15 BP 150 / 85; Pulse 100; Resp 18; Pulse Ox 98% on R/A; lp1 19:58 Body Mass Index 36.22 (95.71 kg, 162.56 cm) bb Procedures: 21:25 Performed left great toe nail debridment. [facility] 21:26 Nerve block: (digital) of plantar aspect of left first toe and left first toe Amount: nolvia 10 mls were injected, Effect: the patient's symptoms are improved, Set up for procedure. Performed by Merlin Chang MD Patient tolerated well. MDM: 19:52 Patient medically screened. [facility] 20:10 Data reviewed: vital signs, nurses notes, lab test result(s), EKG, radiologic studies, nolvia plain films. 07/20 20:10 Order name: CBC with Diff; Complete Time: 21:24 [facility] 07/20 20:10 Order name: Comprehensive Metabolic Panel [facility] 07/20 20:08 Order name: Foot Left 3 View XRAY [facility] 07/20 21:19 Order name: CBC Smear Scan; Complete Time: 21:24 EDMS 07/20 20:08 Order name: Dressing - Wound; Complete Time: 20:34 nolvia 07/20 20:08 Order name: Gloves, Sterile; Complete Time: 20:34 nolvia 07/20 20:08 Order name: Setup Suture Tray; Complete Time: 20:34 nolvia 07/20 20:08 Order name: Wound dressing; Complete Time: 21:38 nolvia 07/20 20:12 Order name: EKG; Complete Time: 20:12 nolvia 07/20 20:12 Order name: EKG - Nurse/Tech; Complete Time: 21:11 nolvia 07/20 21:24 Order name: Post-op shoe; Complete Time: 21:42 [facility] Administered Medications: 20:08 CANCELLED (Duplicate Order): Bactrim (160 mg-800 mg (DS) 1 tablet PO once nolvia 20:08 CANCELLED (Duplicate Order): Doxycycline 200 mg PO once [facility] 20:45 Drug: NS 0.9% 500 ml Route: IV; Rate: bolus; Site: right antecubital; lp1 22:15 Follow up: IV Status: Completed infusion; IV Intake: 350ml lp1 21:00 Drug: Lidocaine (1 %) 5 ml Volume: 5 ml; Route: Infiltration; lp1 21:00 Drug: Bupivacaine (0.5 %) 5 ml Volume: 10 ml; Route: Infiltration; lp1 21:00 Drug: Zofran (Ondansetron) 4 mg Route: IVP; Site: right antecubital; lp1 22:00 Follow up: Response: No adverse reaction; Nausea is decreased lp1 21:00 Drug: morphine 4 mg Route: IVP; Site: right antecubital; lp1 22:00 Follow up: Response: Pain is decreased lp1 21:14 Not Given (Patient Refused): fentaNYL (PF) 25 mcg IVP once; RASS on ADMIN: Combtv4, lp1 Very Agttd3, Agttd2, Rstlss1, AlertClm0, Drwsy-1, Lt Sdtn-2, Mod Sdtn-3, Dp Sdtn-4, UnArsble-5 21:14 Not Given (Patient Refused): fentaNYL (PF) 25 mcg IVP once; RASS on ADMIN: Combtv4, lp1 Very Agttd3, Agttd2, Rstlss1, AlertClm0, Drwsy-1, Lt Sdtn-2, Mod Sdtn-3, Dp Sdtn-4, UnArsble-5 21:20 Drug: Doxycycline 200 mg Route: PO; lp1 22:15 Follow up: Response: No adverse reaction lp1 21:20 Drug: Bactrim (160 mg-800 mg (DS) 1 tablet Route: PO; lp1 22:15 Follow up: Response: No adverse reaction lp1 Disposition: 07/21/19 21:25 Discharged to Home. Impression: Ingrowing nail, Type 1 diabetes mellitus. - Condition is Stable. - Discharge Instructions: Type 1 Diabetes Mellitus, Diagnosis, Adult, Ingrown Toenail, Fingernail or Toenail Removal, Adult, Type 1 Diabetes Mellitus, Self Care, Adult, Type 1 Diabetes Mellitus, Diagnosis, Adult, [id number]-Sgef, Type 1 Diabetes Mellitus, Self Care, Adult, Cmfm-oz-Rcof. - Prescriptions for Bactroban 2 % Topical Ointment - Apply to affected area 1 application by TOPICAL route every 12 hours; 30 gram. Tylenol- Codeine #3 300-30 mg Oral Tablet - take 2 tablets by ORAL route every 6 hours As needed; 20 tablet. Doxycycline Hyclate 100 mg Oral Tablet - take 1 tablet by ORAL route every 12 hours; 20 tablet. Bactrim DS 800- 160 mg Oral Tablet - take 1 tablet by ORAL route every 12 hours for 10 days; 20 tablet. - Medication Reconciliation Form, Thank You Letter, Antibiotic Education, Prescription Opioid Use form. - Follow up: Malvin Huston; When: 2 - 3 days; Reason: Recheck today's complaints, Continuance of care, Re-evaluation by your physician. Follow up: ; When: 2 - 3 days; Reason: Recheck today's complaints, Continuance of care, Re-evaluation by your physician. Follow up: Ga Saleh DPM; When: 2 - 3 days; Reason: Recheck today's complaints, Re-evaluation by your physician. - Problem is new. - Symptoms have improved. Signatures: Dispatcher [employer] EDMerlin Vale MD MD cha Ballard, Brenda RN RN bb Maylin Farah RN RN lp1 Corrections: (The following items were deleted from the chart) 20:08 20:08 Bactrim (160 mg-800 mg (DS) 1 tablet PO once ordered. [facility] 20:08 20:08 Doxycycline 200 mg PO once ordered. [facility] 22:42 21:25 07/21/2019 21:25 Discharged to Home. Impression: Ingrowing nail; Type 1 diabetes lp1 mellitus. Condition is Stable. Discharge Instructions: Type 1 Diabetes Mellitus, Diagnosis, Adult, Ingrown Toenail, Fingernail or Toenail Removal, Adult, Type 1 Diabetes Mellitus, Self Care, Adult, Type 1 Diabetes Mellitus, Diagnosis, Adult, Dzkg-ax-Bkch, Type 1 Diabetes Mellitus, Self Care, Adult, Lizw-ko-Qojl. Prescriptions for Bactroban 2 % Topical Ointment - Apply to affected area 1 application by TOPICAL route every 12 hours; 30 gram, Tylenol-Codeine #3 300-30 mg Oral Tablet - take 2 tablets by ORAL route every 6 hours As needed; 20 tablet, Doxycycline Hyclate 100 mg Oral Tablet - take 1 tablet by ORAL route every 12 hours; 20 tablet, Bactrim DS 800-160 mg Oral Tablet - take 1 tablet by ORAL route every 12 hours for 10 days; 20 tablet. and Forms are Medication Reconciliation Form, Thank You Letter, Antibiotic Education, Prescription Opioid Use. Follow up: Malvin Huston; When: 2 - 3 days; Reason: Recheck today's complaints, Continuance of care, Re-evaluation by your physician. Follow up: Dr. Ga Saleh; When: 2 - 3 days; Reason: Recheck today's complaints, Re-evaluation by your physician. Problem is new. Symptoms have improved. [facility]
[2019-07-21 22:13] LABS: Bilirubin Total 0.3 mg/dL (0.2-1.0); Potassium 4.2 mmol/L (3.5-5.1); Protein, Total 8.3 g/dL (6.4-8.2)
[2019-07-21 22:57] VITALS: TEMP 98.3
[2019-07-21 23:08] VITALS: O2SAT 98
[2019-07-21 23:14] VITALS: BP 150/85
--- NOTE | 2019-07-22 08:20 | RAD REPORT ---
EXAM DESCRIPTION: RAD - Foot Left 3 View - 07/21/2019 9:04 pm CLINICAL HISTORY: Left Foot pain FINDINGS: No fracture or dislocation is seen. The bones are osteoporotic Ill-defined lucency within the terminal tuft of the first proximal phalanx could indicate osteomyelit is or focal osteoporosis.
== END 2019-07-21 22:42 | disposition home or self-care (01) ==
LOC: ER 19:45
DX: L60.0 Ingrowing nail (principal); E10.9 Type 1 diabetes mellitus without complications; J44.9 Chronic obstructive pulmonary disease, unspecified; I10 Essential (primary) hypertension; Z79.4 Long term (current) use of insulin; Z79.891 Long term (current) use of opiate analgesic; Z79.899 Other long term (current) drug therapy
CPT/HCPCS: 96361; 85025; 36415; 80053; 73630; 64450; 96375; 96374; 99284; J3010; J7040; J2405

== ENCOUNTER 2020-06-21 14:32 | Emergency (ER) | payer OTHER ==
--- OUTSIDE RECORDS SUMMARY | 2020-06-21 14:35 | XMS REPORT | Continuity of Care Document ---
:1950 Author Organization [facility] t Address [address] [place] [address] Care Team Providers Name Role Phone Erika OAKES, Rudy Attending Clinician Unavailable Raquel Nava DO Attending Clinician Chaz NIX Attending Clinician Doctor Unassigned, Name Attending Clinician Unavailable Chaz NIX Admitting Clinician Problems This patient has no known problems. Allergies, Adverse Reactions, Alerts This patient has no known allergies or adverse reactions. Medications This patient has no known medications. Procedures This patient has no known procedures. Encounters Start End Encounter Admission Attending Care Care Encounter Source Date/Time Date/Time Type Type Clinicians Facility Department ID 2020-06-17 2020-06-17 Transition Neeta James [id number] 00:00:00 00:00:00 of Care Mihir Felder [id number] [place] [id number] 2020-06-11 2020-06-15 [facility] Leonarda Nava [facility] [id number] 10:30:00 15:18:00 Encounter Josi Ware [id number] Leonarda Nava [place] [id number] Josi Ware [place] [id number] 2020-06-11 2020-06-11 Orders Doctor AD [id number] 00:00:00 00:00:00 Only Unassigned, DAVID [id number] [place] [facility] [id number] Results This patient has no known results.
[2020-06-21] MEDS ORDERED: NA CHLORIDE 0.9% 500 ML ONE (17:23)
[2020-06-21] MEDS ORDERED: FENTANYL CITR 100 MCG/2 ML ONE ×2 (17:23→22:22)
[2020-06-21 18:01] LABS: Absolute Lymphocytes (CBC) 1.2 K/uL (0.7-4.9); Basophils % 0.5 % (0-1.3); Hematocrit 40.3 % (36.0-45.0); Lymphocytes % 13.3 % (15.3-44.8); MPV 8.7 fL (7.6-11.3)
[2020-06-21 18:18] LABS: Protime INR 1.18
--- NOTE | 2020-06-21 18:18 | RAD REPORT ---
EXAM DESCRIPTION: [place] Single View06/21/2020 6:01 pm CLINICAL HISTORY: Cough COMPARISON: 2019 FINDINGS: Moderate bilateral pulmonary opacities. The heart is probably upper limits normal size IMPRESSION: Moderate bilateral pulmonary opacities probably pneumonia
[2020-06-21] MEDS ORDERED: ONDANSETRON 4 MG/2 ML VIAL ONE (18:19)
[2020-06-21 18:33] LABS: ALT/SGPT 73 U/L (12-78); AST/SGOT 124 U/L (15-37); Albumin 3.8 g/dL (3.4-5.0); Alkaline Phosphatase 110 U/L (45-117); BUN Blood Urea Nitrogen 15 mg/dL (7-18); Bicarbonate 27 mmol/L (21-32); Bilirubin Direct 0.2 mg/dL (0-0.2); Bilirubin Total 0.6 mg/dL (0.2-1.0); Glucose Level 257 mg/dL (74-106); Magnesium 2.2 mg/dL (1.8-2.4); NT PRO-BNP 186 pg/mL (<125); Potassium 3.5 mmol/L (3.5-5.1); Protein, Total 8.4 g/dL (6.4-8.2); Sodium Level 141 mmol/L (136-145); Troponin (Emerg Dept Use Only) < 0.02 ng/mL (0.0-0.045)
[2020-06-21] MEDS ORDERED: BENZONATATE 100 MG CAP PO ONE (18:52)
[2020-06-21] MEDS ORDERED: MORPHINE 2 MG/ML SYR ONE (18:53)
[2020-06-21] MEDS ORDERED: METHYLPREDNISOLONE 40 MG INJ ONE (19:38)
--- NOTE | 2020-06-21 19:52 | RAD REPORT ---
EXAM DESCRIPTION: USExtrem Venous W Compress Bil06/21/2020 7:09 pm CLINICAL HISTORY: Leg pain COMPARISON: 2008 FINDINGS: The common femoral, superficial femoral, popliteal and posterior tibial veins bilaterally are compressible and demonstrate augmentation. Doppler demonstrates good flow. IMPRESSION: No evidence of deep venous thrombosis involving either lower extremity.
--- NOTE | 2020-06-21 20:46 | RAD REPORT ---
EXAM DESCRIPTION: CT - Chest For Pe Angio - 06/21/2020 8:30 pm CLINICAL HISTORY: Chest pain COMPARISON: 2017 TECHNIQUE: Dynamically enhanced axial 3 mm thick images of the chest were obtained during administra tion of <100> mL Isovue 370 IV contrast. Coronal and oblique reconstruction images were generated and reviewed. Exam utilizes a protocol for optimal evaluation of pulmonary arterial tree. Maximum intensity projections 3D imaging was utilized All CT scans are performed using dose optimization technique as appropriate and may include automated exposure control or mA/KV adjustment according to patient size. FINDINGS: A pulmonary embolus is not seen. A thoracic aortic aneurysm is not noted. A pleural effusion is not seen. A pericardial effusion is not seen. Mild to moderate bilateral ground-glass opacities within the lungs Fatty liver IMPRESSION: Negative for a pulmonary embolism. Mild to moderate bilateral ground-glass opacities within the lungs can be seen with Covid pneumonia
--- NOTE | 2020-06-21 21:56 | ER ---
Nurse's Notes [facility] Name: Sheila Vila Age: 69 yrs Sex: Female : 1950 Arrival Date: 06/21/2020 Time: 14:34 Bed 16 Private MD: Diagnosis: Other viral [id number];Blister (nonthermal) of foot-right heel Presentation: 06/21 14:41 Chief complaint: Patient states: "COVID + for about a week now. I was hospitalized, I jd3 was released, but I am not getting better. and I also noticed I got something going on on my foot like a puss pocket now.". Coronavirus screen: cough unrelated to allergies, shortness of breath, Client presents with at least one sign or symptom that may indicate coronavirus-19. Standard/surgical mask placed on the client. Provider contacted for isolation considerations. Ebola Screen: Patient negative for fever greater than or equal to 101.5 degrees Fahrenheit, and additional compatible Ebola Virus Disease symptoms. Initial Sepsis Screen: Does the patient meet any 2 criteria? No. Patient's initial sepsis screen is negative. Does the patient have a suspected source of infection? No. Patient's initial sepsis screen is negative. Risk Assessment: Do you want to hurt yourself or someone else? Patient reports no desire to harm self or others. Onset of symptoms was June 14, 2020. 14:41 Method Of Arrival: Wheelchair jd3 14:41 Acuity: SYLVESTER 3 jd3 Historical: - Allergies: 14:44 Darvocet-N 100; jd3 14:44 PENICILLINS; jd3 14:44 PROPOXYPHENE; jd3 14:44 Toradol; jd3 - PMHx: 14:44 Hypertension; COPD; Pancreatitis; Hepatitis; resolved; Pneumonia; Cirrhosis; Asthma; jd3 Diabetes - IDDM; - PSHx: 14:44 Hysterectomy; Knee surgery; Cholecystectomy; cataract sx; jd3 - Immunization history:: Adult Immunizations up to date. - Social history:: Smoking status: Patient denies any tobacco usage or history of. Screenin:00 Abuse screen: Denies threats or abuse. Denies injuries from another. Nutritional jl7 screening: No deficits noted. Tuberculosis screening: No symptoms or risk factors identified. Fall Risk IV access (20 points). Assessment: 16:30 General: Appears in no apparent distress. uncomfortable, Behavior is cooperative, jl7 anxious. Pain: Complains of pain in all over, FLORES Pain currently is 10 out of 10 on a pain scale. Neuro: Level of Consciousness is awake, alert, obeys commands, Oriented to person, place, time, situation. Cardiovascular: Patient's skin is warm and dry. Respiratory: Reports shortness of breath cough that is Airway is patent Respiratory effort is even, unlabored, Respiratory pattern is regular, symmetrical. GI: Abdomen is round non-distended, Reports nausea. EENT: Throat is clear. Derm: Skin is pink, warm \\T\\ dry. 17:30 Reassessment: Patient appears in no apparent distress at this time. No changes from jl7 previously documented assessment. Patient and/or family updated on plan of care and expected duration. Pain level reassessed. Patient is alert, oriented x 3, equal unlabored respirations, skin warm/dry/pink. 18:30 Reassessment: Patient appears in no apparent distress at this time. Patient and/or jl7 family updated on plan of care and expected duration. Pain level reassessed. Patient is alert, oriented x 3, equal unlabored respirations, skin warm/dry/pink. 19:48 General: Appears uncomfortable, Behavior is appropriate for age. Pain: Complains of ea pain in body aches. Neuro: Level of Consciousness is awake, alert, obeys commands, Oriented to person, place, time. Cardiovascular: Patient's skin is warm and dry. Derm: Skin is pink, warm \\T\\ dry. 20:13 Reassessment: Pt taken to CT. ea 20:29 Reassessment: Patient and/or family updated on plan of care and expected duration. Pain ea level reassessed. Patient is alert, oriented x 3, equal unlabored respirations, skin warm/dry/pink. Returned from CT. 21:30 Reassessment: Patient and/or family updated on plan of care and expected duration. Pain ea level reassessed. Patient is alert, oriented x 3, equal unlabored respirations, skin warm/dry/pink. Awaiting on CT results. 21:48 Reassessment: Patient and/or family updated on plan of care and expected duration. Pain ea level reassessed. Patient is alert, oriented x 3, equal unlabored respirations, skin warm/dry/pink. Pt ambulated approx 50 feet with standby assist, O2 at 95% RA. 22:30 Reassessment: Patient and/or family updated on plan of care and expected duration. Pain ea level reassessed. Patient is alert, oriented x 3, equal unlabored respirations, skin warm/dry/pink. Discharge instruction given to patient verbalized the understanding of instruction. Pt left ED via wheelchair per tech, pt tolerating well. Vital Signs: 14:44 BP 95 / 55; Pulse 107; Resp 20 S; Temp 97.8(TE); Pulse Ox 97% on R/A; Weight 95.71 kg jd3 (R); Height 5 ft. 4 in. (162.56 cm) (R); Pain 10/10; 16:30 BP 151 / 84; Pulse 112; Resp 21; Pulse Ox 94% on R/A; jl7 17:00 BP 119 / 101; Pulse 102; Resp 17; Pulse Ox 94% ; jl7 17:45 BP 133 / 104; Pulse 103; Resp 19; Pulse Ox 94% ; jl7 18:00 BP 108 / 94; Pulse 104; Resp 18; Pulse Ox 96% ; jl7 18:30 Pain 8/10; jl7 18:47 BP 129 / 90; Pulse 90; Resp 19; Pulse Ox 95% ; jl7 19:48 BP 134 / 97; Pulse 102; Resp 18; Pulse Ox 94% ; ea 22:32 BP 127 / 70; Pulse 99; Resp 18; Pulse Ox 95% ; ea 14:44 Body Mass Index 36.22 (95.71 kg, 162.56 cm) jd3 ED Course: 14:34 Patient arrived in ED. as 14:43 Triage completed. jd3 14:45 Arm band placed on. jd3 16:24 Merlin Perales PA is PHCP. cp 16:24 Robert Wilson MD is Attending Physician. cp 16:25 Colette Christian, VIOLETTE is Primary Nurse. jl7 16:30 Patient has correct armband on for positive identification. Placed in gown. Bed in low jl7 position. Call light in reach. Side rails up X 1. monitor and storage bin tender on. Pulse ox on. NIBP on. 17:30 EKG done, by ED staff, reviewed by Merlin NYE. jl7 17:45 Missed attempt(s): 22 gauge in right wrist. Bleeding controlled, band aid applied, jl7 catheter tip intact. 18:00 Initial lab(s) drawn, by me, sent to lab. Inserted saline lock: 22 gauge in right jl7 antecubital area, using aseptic technique. Blood collected. 18:10 XRAY Chest (1 view) In Process Unspecified. EDMS 22:30 No provider procedures requiring assistance completed. IV discontinued, intact, ea bleeding controlled, No redness/swelling at site. Pressure dressing applied. Administered Medications: 17:55 Drug: fentaNYL (PF) 25 mcg Route: IVP; Site: right antecubital; jl7 18:10 Follow up: Response: No adverse reaction; Pain is unchanged, physician notified jl7 17:55 Drug: NS 0.9% 500 ml Route: IV; Rate: bolus; Site: right antecubital; jl7 18:42 Follow up: Response: No adverse reaction; IV Status: Completed infusion; IV Intake: jl7 500ml 18:10 Drug: fentaNYL (PF) 25 mcg Route: IVP; Site: right antecubital; jl7 18:30 Follow up: Pain 8/10 Adult; Response: No adverse reaction; Pain is decreased jl7 18:10 Drug: Zofran (Ondansetron) 4 mg Route: IVP; Site: right antecubital; jl7 18:42 Follow up: Response: No adverse reaction; Nausea is decreased jl7 18:41 Drug: Tessalon Perle 200 mg Route: PO; jl7 21:33 Follow up: Response: Adverse reaction, Physician notified ea 18:41 Drug: morphine 2 mg Route: IVP; Site: right antecubital; jl7 21:33 Follow up: Response: No adverse reaction ea 19:34 Drug: SOLU-Medrol 80 mg Route: IVP; Site: right forearm; ea 21:33 Follow up: Response: No adverse reaction ea 22:17 Drug: fentaNYL (PF) 25 mcg Route: IVP; Site: right antecubital; ea 22:30 Follow up: Response: No adverse reaction; RASS: Alert and Calm (0) ea Intake: 18:42 IV: 500ml; Total: 500ml. jl7 Outcome: 21:55 Discharge ordered by . cp 22:30 Discharged to home via wheelchair, with family. ea 22:30 Condition: stable 22:30 Discharge instructions given to patient, Instructed on discharge instructions, follow up and referral plans. medication usage, Demonstrated understanding of instructions, follow-up care, medications, Prescriptions given X 1. 22:31 Patient left the ED. ea Signatures: Dispatcher [employer] Tosha Armenta Corey, PA PA cp Leal, Jahala RN RN jl7 Mary Simon RN RN Dallas Bernal RN RN jd3
--- NOTE | 2020-06-21 21:56 | EDPHYS ---
Physician Documentation [facility] Name: Sheila Vila Age: 69 yrs Sex: Female : 1950 Arrival Date: 06/21/2020 Time: 14:34 Bed 16 Private MD: ED Physician Robert Wilson HPI: 06/21 17:00 This 69 yrs old Black Female presents to ER via Wheelchair with complaints of Sore cp Throat - covid+, Foot Pain - heel swelling. 17:00 The patient presents with sore throat. cp 17:00 Associated signs and symptoms: Pertinent positives: chest pain, cough, shortness of cp breath Pertinent negatives diarrhea, vomiting. 17:00 Patient reports testing positive for COVID-19 over 1 week ago. Patient reports being cp hospitalized and then discharged, but does not feel like she is getting better. Historical: - Allergies: 14:44 Darvocet-N 100; jd3 14:44 PENICILLINS; jd3 14:44 PROPOXYPHENE; jd3 14:44 Toradol; jd3 - PMHx: 14:44 Hypertension; COPD; Pancreatitis; Hepatitis; resolved; Pneumonia; Cirrhosis; Asthma; jd3 Diabetes - IDDM; - PSHx: 14:44 Hysterectomy; Knee surgery; Cholecystectomy; cataract sx; jd3 - Immunization history:: Adult Immunizations up to date. - Social history:: Smoking status: Patient denies any tobacco usage or history of. ROS: 17:05 Constitutional: Positive for body aches, poor PO intake, Negative for fever. cp 17:05 Eyes: Negative for injury, pain, redness, and discharge. cp 17:05 ENT: Positive for sore throat, Negative for ear pain, difficulty swallowing, difficulty handling secretions. 17:05 Cardiovascular: Positive for chest pain, with cough, Negative for edema. 17:05 Respiratory: Positive for cough, "sounds productive", shortness of breath, on exertion. Negative for wheezing. 17:05 Abdomen/GI: Positive for nausea, Negative for vomiting, diarrhea, constipation. 17:05 Back: Positive for pain at rest, pain with movement. 17:05 : Negative for urinary symptoms. 17:05 MS/extremity: Positive for pain, of the heel of right foot. 17:05 Neuro: Positive for headache, weakness, Negative for altered mental status, syncope. 17:05 All other systems are negative. Exam: 17:10 Constitutional: The patient appears in no acute distress, alert, awake, cp non-diaphoretic, non-toxic, well developed, well nourished. 17:10 Head/Face: Normocephalic, atraumatic. cp 17:10 Eyes: Periorbital structures: appear normal, Conjunctiva: normal, no exudate, no injection, Sclera: no appreciated abnormality, Lids and lashes: appear normal, bilaterally. 17:10 ENT: External ear(s): are unremarkable, Nose: is normal, Mouth: Lips: dry, Oral mucosa: moist, Posterior pharynx: Airway: no evidence of obstruction, patent, Tonsils: are normal in appearance, erythema, is not appreciated, exudate, is not appreciated. 17:10 Neck: ROM/movement: Meningeal signs: are not present, nuchal rigidity, is not appreciated. 17:10 Chest/axilla: Inspection: normal, Palpation: is normal, no crepitus, no tenderness. 17:10 Cardiovascular: Rate: tachycardic, Rhythm: regular, Edema: is not appreciated, JVD: is not appreciated. 17:10 Respiratory: the patient does not display signs of respiratory distress, Respirations: normal, no use of accessory muscles, no retractions, labored breathing, is not present, Breath sounds: bronchial sounds, that are mild, are heard diffusely, decreased breath sounds, are not appreciated, stridor, is not appreciated, + upper airway congestion. wheezing: is not appreciated. 17:10 Abdomen/GI: Inspection: abdomen appears normal, Bowel sounds: active, all quadrants, Palpation: soft, in all quadrants, nontender, in all quadrants. 17:10 Back: pain, that is moderate, diffuse, ROM is painful, with all movement. 17:10 Skin: tender, clear fluid filled blister noted to right heel. 17:10 Neuro: Orientation: to person, place \\T\\ time. Mentation: is normal, Motor: moves all fours, strength is normal. 17:30 ECG was reviewed by the Attending Physician. cp Vital Signs: 14:44 BP 95 / 55; Pulse 107; Resp 20 S; Temp 97.8(TE); Pulse Ox 97% on R/A; Weight 95.71 kg jd3 (R); Height 5 ft. 4 in. (162.56 cm) (R); Pain 10/10; 16:30 BP 151 / 84; Pulse 112; Resp 21; Pulse Ox 94% on R/A; jl7 17:00 BP 119 / 101; Pulse 102; Resp 17; Pulse Ox 94% ; jl7 17:45 BP 133 / 104; Pulse 103; Resp 19; Pulse Ox 94% ; jl7 18:00 BP 108 / 94; Pulse 104; Resp 18; Pulse Ox 96% ; jl7 18:30 Pain 8/10; jl7 18:47 BP 129 / 90; Pulse 90; Resp 19; Pulse Ox 95% ; jl7 19:48 BP 134 / 97; Pulse 102; Resp 18; Pulse Ox 94% ; ea 22:32 BP 127 / 70; Pulse 99; Resp 18; Pulse Ox 95% ; ea 14:44 Body Mass Index 36.22 (95.71 kg, 162.56 cm) jd3 MDM: 16:37 Patient medically screened. cp 17:00 Differential diagnosis: group A strep tonsillitis, tonsillitis, upper respiratory cp infection, sepsis, respiratory failure, dehydration, cardiac arrythmia, electrolyte abnormality. 21:50 Data reviewed: vital signs, nurses notes, lab test result(s), EKG, radiologic studies, cp CT scan, plain films. Counseling: I had a detailed discussion with the patient and/or guardian regarding: the historical points, exam findings, and any diagnostic results supporting the discharge/admit diagnosis, lab results, radiology results, to return to the emergency department if symptoms worsen or persist or if there are any questions or concerns that arise at home. Response to treatment: VSS. Patient observed ambulating to restroom with use of walker. Oxygen sats monitored and maintained above 94% on room air. 06/21 16:53 Order name: Basic Metabolic Panel; Complete Time: 18:33 cp 06/21 18:33 Interpretation: Normal except: GLUC 257; GFR 80. cp 06/21 16:53 Order name: CBC with Diff; Complete Time: 18:33 cp 06/21 18:34 Interpretation: Normal except: MCV 84.0; PLT 147; RDW 16.2; YAMILE% 76.6; LYM% 13.3. cp 06/21 16:53 Order name: LFT's; Complete Time: 18:33 cp 03/05 18:35 Interpretation: Normal except: AST 124; TP 8.4; GLOB 4.6; A/G 0.8. cp 03/ 16:53 Order name: Magnesium; Complete Time: 18:33 cp / 16:53 Order name: NT PRO-BNP; Complete Time: 18:33 cp / 16:53 Order name: PT-INR; Complete Time: 18:33 cp / 16:53 Order name: Troponin (emerg Dept Use Only); Complete Time: 18:33 cp / 16:53 Order name: XRAY Chest (1 view); Complete Time: 18:33 cp / 16:53 Order name: US Extremity Venous W Compression Joby cp 06/21 16:53 Order name: CRP; Complete Time: 18:33 cp 06/21 19:20 Order name: LAB Add On cp 06/21 19:20 Order name: D-Dimer cp 06/21 19:52 Order name: D-Dimer; Complete Time: 21:18 EDMS 06/21 21:18 Interpretation: Reviewed. cp / 16:53 Order name: EKG; Complete Time: 16:54 cp 06/21 16:53 Order name: Cardiac monitoring; Complete Time: 17:11 cp / 16:53 Order name: EKG - Nurse/Tech; Complete Time: 17:11 cp / 16:53 Order name: IV Saline Lock; Complete Time: 17:12 cp / 16:53 Order name: Labs collected and sent; Complete Time: 18:04 cp / 19:53 Order name: US; Complete Time: 21:18 EDMS 06/21 21:18 Interpretation: Report reviewed. cp 03/ 20:02 Order name: CT Chest For PE Angio cp / 20:47 Order name: CT; Complete Time: 21:18 EDMS 06/21 21:18 Interpretation: Report reviewed. cp / 16:53 Order name: O2 Per Protocol; Complete Time: 18:04 cp / 16:53 Order name: O2 Sat Monitoring; Complete Time: 18:05 cp / 21:19 Order name: Misc. Order: ambulate patient with pulse ox monitor; Complete Time: 21:50 cp EC:30 Rate is 103 beats/min. Rhythm is regular. MO interval is normal. QRS interval is cp normal. QT interval is normal. T waves are Inverted in leads V4, V5, V6. Interpreted by me. Reviewed by me. Administered Medications: 17:55 Drug: fentaNYL (PF) 25 mcg Route: IVP; Site: right antecubital; jl7 18:10 Follow up: Response: No adverse reaction; Pain is unchanged, physician notified jl7 17:55 Drug: NS 0.9% 500 ml Route: IV; Rate: bolus; Site: right antecubital; jl7 18:42 Follow up: Response: No adverse reaction; IV Status: Completed infusion; IV Intake: jl7 500ml 18:10 Drug: fentaNYL (PF) 25 mcg Route: IVP; Site: right antecubital; jl7 18:30 Follow up: Pain 8/10 Adult; Response: No adverse reaction; Pain is decreased jl7 18:10 Drug: Zofran (Ondansetron) 4 mg Route: IVP; Site: right antecubital; jl7 18:42 Follow up: Response: No adverse reaction; Nausea is decreased jl7 18:41 Drug: Tessalon Perle 200 mg Route: PO; jl7 21:33 Follow up: Response: Adverse reaction, Physician notified ea 18:41 Drug: morphine 2 mg Route: IVP; Site: right antecubital; jl7 21:33 Follow up: Response: No adverse reaction ea 19:34 Drug: SOLU-Medrol 80 mg Route: IVP; Site: right forearm; ea 21:33 Follow up: Response: No adverse reaction ea 22:17 Drug: fentaNYL (PF) 25 mcg Route: IVP; Site: right antecubital; ea 22:30 Follow up: Response: No adverse reaction; RASS: Alert and Calm (0) ea Disposition: 06/22 06:48 Co-signature as Attending Physician, Robert Wilson MD I agree with the assessment and kdr plan of care. Disposition: 06/21/20 21:55 Discharged to Home. Impression: Other viral pneumonia - COVID-19, Blister (nonthermal) of foot - right heel. - Condition is Stable. - Discharge Instructions: COVID-19. - Prescriptions for Prednisone 20 mg Oral Tablet - take 2 tablets by ORAL route once daily for 5 days then take 1 tablet daily for 5 days; 15 tablet. - Medication Reconciliation Form, Thank You Letter, Antibiotic Education, Prescription Opioid Use form. - Follow up: Private Physician; When: 2 - 3 days; Reason: Recheck today's complaints. - Problem is an ongoing problem. - Symptoms have improved. Signatures: Dispatcher [employer] EDRobert Ferro MD MD kdr Page, Corey, PA PA cp Colette Christian, RN RN jl7 Mary Simon RN Dallas Antonio ea RN RN jd3 Corrections: (The following items were deleted from the chart) 03 22:13 21:55 06/21/2020 21:55 Discharged to Home. Impression: Coronavirus as the cause of cp diseases classified elsewhere - pneumonia. Condition is Stable. Forms are Medication Reconciliation Form, Thank You Letter, Antibiotic Education, Prescription Opioid Use. Follow up: Private Physician; When: 2 - 3 days; Reason: Recheck today's complaints. Problem is an ongoing problem. Symptoms have improved. cp 22:31 22:13 06/21/2020 21:55 Discharged to Home. Impression: Other viral pneumonia - ea COVID-19; Blister (nonthermal) of foot - right heel. Condition is Stable. Discharge Instructions: COVID-19. Prescriptions for Prednisone 20 mg Oral Tablet - take 2 tablets by ORAL route once daily for 5 days then take 1 tablet daily for 5 days; 15 tablet. and Forms are Medication Reconciliation Form, Thank You Letter, Antibiotic Education, Prescription Opioid Use. Follow up: Private Physician; When: 2 - 3 days; Reason: Recheck today's complaints. Problem is an ongoing problem. Symptoms have improved. cp
[2020-06-22 01:06] VITALS: TEMP 97.8
[2020-06-22 01:16] VITALS: BP 134/97; O2SAT 94
== END 2020-06-21 22:31 | disposition home or self-care (01) ==
LOC: ER 14:32
DX: U07.1 COVID-19 (principal); J12.82 Pneumonia due to coronavirus disease 2019; S90.821A Blister (nonthermal), right foot, initial encounter; I10 Essential (primary) hypertension; Z88.0 Allergy status to penicillin; Z88.5 Allergy status to narcotic agent; Z88.8 Allergy status to other drugs, medicaments and biological substances
CPT/HCPCS: 93005; 85025; 80048; 36415; 83735; 85610; 85379; 80076; 84484; 83880; 86140; 71275; 71045; 93970; 99285; Q9967; J3010 ×2; J2270; J7040; J2405; J2920

== ENCOUNTER 2021-02-18 14:13 | Emergency (ER) | payer OTHER ==
[2021-02-18] MEDS ORDERED: ONDANSETRON 4 MG/2 ML VIAL ONE ×3 (15:54→20:39)
[2021-02-18] MEDS ORDERED: MORPHINE 4 MG/ML SYR ONE ×3 (15:54→20:39)
[2021-02-18 15:55] LABS: Urine Blood Trace-intact (Negative); Urine Glucose 2+ (Negative); Urine Protein Negative (Negative); Urine Specific Gravity 1.015 (1.005-1.030)
[2021-02-18 16:52] LABS: Absolute Lymphocytes (CBC) 0.8 K/uL (0.7-4.9); Basophils % 0.2 % (0-1.3); Hematocrit 40.7 % (36.0-45.0); MPV 9.8 fL (7.6-11.3); RBC Red Blood Cell Count 4.57 M/uL (3.86-4.86)
[2021-02-18 17:01] LABS: ALT/SGPT 34 U/L (12-78); AST/SGOT 30 U/L (15-37); Albumin 3.5 g/dL (3.4-5.0); Alkaline Phosphatase 207 U/L (45-117); BUN Blood Urea Nitrogen 11 mg/dL (7-18); Bicarbonate 25 mmol/L (21-32); Bilirubin Direct < 0.1 mg/dL (0-0.2); Bilirubin Total 0.3 mg/dL (0.2-1.0); Glucose Level 386 mg/dL (74-106); Lipase 76 U/L (73-393); Potassium 4.2 mmol/L (3.5-5.1); Protein, Total 7.9 g/dL (6.4-8.2); Sodium Level 139 mmol/L (136-145)
--- NOTE | 2021-02-18 19:39 | RAD REPORT ---
EXAM DESCRIPTION: CT - Abdomen Pelvis Wo Contrast - 02/18/2021 7:28 pm CLINICAL HISTORY: Abdominal pain. ABD PAIN COMPARISON: Abdomen Pelvis Wo Contrast dated 04/09/2019 TECHNIQUE: CT imaging of the abdomen and pelvis was performed without contrast. Solid organ, bowel a nd vascular assessment is limited due to lack of IV and oral contrast. All CT scans are performed using dose optimization technique as appropriate and may include automated exposure control or mA/KV adjustment according to patient size. FINDINGS: The lower lung kothari are clear. Nodular contour seen throughout the liver parenchyma compatible with cirrhosis. 15 mm hypodense lesio n is seen in the anterior right lobe liver. 11 mm hypodense lesion is seen in the posterior right lob e of the liver. These appear grossly unchanged since prior examination.Cholecystectomy. The spleen, p ancreas, adrenal glands and kidneys are within normal limits. No bowel obstruction, free air, free fluid or abscess. Prominent diverticulosis is seen the descendin g colon and sigmoid colon no evidence diverticulitis. The appendix is normal. Mild lumbosacral degenerative changes are present. IMPRESSION: Prominent diverticulosis coli is noted involving the descending and sigmoid colon withou t evidence of diverticulitis. Moderate liver cirrhosis. A limited non-contrast examination was performed as detailed.
--- NOTE | 2021-02-18 20:29 | ER ---
Nurse's Notes [facility] Name: Sheila Vila Age: 70 yrs Sex: Female : 1950 Arrival Date: 02/18/2021 Time: 14:15 Bed 23 Private MD: ASHER SCHULTE Diagnosis: Lower abdominal pain, unspecified Presentation: 02/18 15:28 Chief complaint: Patient states: I have been having lower abdominal pain, lower left ld1 back pain, vomiting and low grade fever. Coronavirus screen: At this time, the client does not indicate any symptoms associated with coronavirus-19. Ebola Screen: No symptoms or risks identified at this time. Initial Sepsis Screen: Does the patient meet any 2 criteria? No. Patient's initial sepsis screen is negative. Does the patient have a suspected source of infection? No. Patient's initial sepsis screen is negative. Risk Assessment: Do you want to hurt yourself or someone else? Patient reports no desire to harm self or others. Onset of symptoms was February 18, 2021. 15:28 Method Of Arrival: Ambulatory ld1 15:28 Acuity: SYLVESTER 3 ld1 Triage Assessment: 15:30 General: Appears in no apparent distress. uncomfortable, Behavior is calm, cooperative, ld1 appropriate for age. Pain: Complains of pain in right low back and right lower quadrant Pain does not radiate. Pain currently is 9 out of 10 on a pain scale. Quality of pain is described as shooting, stabbing, squeezing, Pain began 2 weeks Is continuous. Neuro: Level of Consciousness is awake, alert, obeys commands, Oriented to person, place, time, situation. Cardiovascular: Capillary refill < 3 seconds Patient's skin is warm and dry. Respiratory: Airway is patent Respiratory effort is even, unlabored, Respiratory pattern is regular, symmetrical. GI: Abdomen is round non-distended, Reports lower abdominal pain, upper abdominal pain, nausea, vomiting. Historical: - Allergies: 15:30 PENICILLINS; ld1 15:30 Toradol; ld1 15:30 Propoxyphene; ld1 15:30 Darvocet-N 100; ld1 - Home Meds: 15:30 [place] 10-325 mg Oral tab three times a day [Active]; Novolog Sub-Q [Active]; Seroquel ld1 Oral [Active]; clonidine HCl 0.2 mg Oral tab [Active]; Invokana 100 mg Oral tab 1 tab once daily [Active]; lisinopril-hydrochlorothiazide Oral [Active]; Tresiba FlexTouch U-100 subcutaneous [Active]; Victoza 2-Abhay subcutaneous [Active]; brio inhaler [Active]; Xanax 2 mg Oral tab 3 times per day [Active]; - PMHx: 15:30 Asthma; Cirrhosis; COPD; Diabetes - IDDM; Hepatitis; resolved; Hypertension; ld1 Pancreatitis; Pneumonia; - Immunization history:: Adult Immunizations up to date, Client reports receiving the 2nd dose of the Covid vaccine. - Social history:: Smoking status: Patient denies any tobacco usage or history of. Patient/guardian denies using alcohol. Screenin:48 Abuse screen: Denies threats or abuse. Denies injuries from another. Nutritional iw screening: No deficits noted. Tuberculosis screening: No symptoms or risk factors identified. Fall Risk None identified. Assessment: 16:17 Reassessment: lab with patient drawing for blood. ap3 18:49 Reassessment: Patient appears in no apparent distress at this time. Patient and/or iw family updated on plan of care and expected duration. Pain level reassessed. Patient is alert, oriented x 3, equal unlabored respirations, skin warm/dry/pink. 20:47 Reassessment: Patient appears in no apparent distress at this time. Patient and/or em family updated on plan of care and expected duration. Pain level reassessed. Patient is alert, oriented x 3, equal unlabored respirations, skin warm/dry/pink. Vital Signs: 15:28 BP 184 / 108; Pulse 126; Resp 18; Temp 98.3(TE); Pulse Ox 99% on R/A; Weight 96.62 kg; ld1 Height 5 ft. 4 in. (162.56 cm); Pain 9/10; 18:47 BP 136 / 87; Pulse 103; Resp 16; Pulse Ox 98% on R/A; dh4 18:51 Resp 18 S; Pulse Ox 99% on R/A; iw 20:47 BP 145 / 100; Pulse 87; Resp 18; Pulse Ox 99% on R/A; em 15:28 Body Mass Index 36.56 (96.62 kg, 162.56 cm) ld1 ED Course: 14:15 Patient arrived in ED. am2 14:15 ASHER SCHULTE is Private Physician. am2 15:30 Marix[facility] Tellez [facility]C [facility] kb 15:30 Merlin Chang MD is Attending Physician. kb 15:30 Triage completed. ld1 15:30 Arm band placed on right wrist. ld1 15:53 Sharri Nava, RN is Primary Nurse. iw 18:00 Missed attempt(s): 24 gauge in right antecubital area. Bleeding controlled, band aid iw applied, catheter tip intact. 19:15 Primary Nurse role handed off by Sharri Nava, RN mw2 19:28 Abdomen In Process Unspecified. EDMS 19:35 Ben Sosa RN is Primary Nurse. em 19:40 Inserted saline lock: 22 gauge in right antecubital area, using aseptic technique. em Blood collected. 20:49 No provider procedures requiring assistance completed. IV discontinued, intact, em bleeding controlled, No redness/swelling at site. Pressure dressing applied. Administered Medications: 19:41 Drug: NS 0.9% 1000 ml Route: IV; Rate: 1000 ml; Site: right antecubital; em 20:50 Follow up: IV Status: Order to discontinue infusion; IV Intake: 800ml em 19:42 Drug: Zofran (Ondansetron) 4 mg Route: IVP; Site: right antecubital; em 20:10 Follow up: Response: No adverse reaction; Marked relief of symptoms em 19:42 Drug: morphine 4 mg Route: IVP; Site: right antecubital; em 20:10 Follow up: Response: No adverse reaction em 20:46 Drug: Zofran (Ondansetron) 4 mg Route: IVP; Site: right antecubital; em 20:50 Follow up: Response: No adverse reaction em 20:46 Drug: morphine 4 mg Route: IVP; Site: right antecubital; em 20:51 Follow up: Response: No adverse reaction em Intake: 20:50 IV: 800ml; Total: 800ml. em Outcome: 20:29 Discharge ordered by . kb 20:55 Discharged to home ambulatory. em 20:55 Condition: stable 20:55 Discharge instructions given to patient, Instructed on discharge instructions, follow up and referral plans. medication usage, Demonstrated understanding of instructions, follow-up care, medications, Prescriptions given X 2. 20:55 Patient left the ED. em Signatures: Dispatcher [employer] Marixa Restrepo, MOLDING TECHNICIAN-C MOLDING TECHNICIAN-Ben Thornton, RN RN Sharri Valencia RN RN Tamar Lugo am2 Tamar Desouza RN RN 3 Medina Boles 2 Lon Fair 4 Edilia Taveras RN RN ld1
--- NOTE | 2021-02-18 20:30 | EDPHYS ---
Physician Documentation [facility] Name: Sheila Vila Age: 70 yrs Sex: Female : 1950 Arrival Date: 02/18/2021 Time: 14:15 Bed 23 Private MD: ASHER SCHULTE ED Physician Merlin Chang HPI: 02/18 16:19 This 70 yrs old Black Female presents to ER via Ambulatory with complaints of Abdominal kb Pain, Flank Pain, Nausea, Back Pain. 16:19 The patient presents with abdominal pain in the left lower quadrant. Onset: The kb symptoms/episode began/occurred 2 week(s) ago. The symptoms do not radiate. Associated signs and symptoms: Pertinent positives: nausea and vomiting. The symptoms are described as constant. Modifying factors: The symptoms are alleviated by nothing, the symptoms are aggravated by nothing. Severity of pain: At its worst the pain was moderate in the emergency department the pain is unchanged. The patient has experienced similar episodes in the past, a few times. The patient has not recently seen a physician. 16:25 Pt reports LLQ pain that radiates to back with nausea and vomiting. States it feels kb similar to diverticulitis. Historical: - Allergies: 15:30 PENICILLINS; ld1 15:30 Toradol; ld1 15:30 Propoxyphene; ld1 15:30 Darvocet-N 100; ld1 - Home Meds: 15:30 [place] 10-325 mg Oral tab three times a day [Active]; Novolog Sub-Q [Active]; Seroquel ld1 Oral [Active]; clonidine HCl 0.2 mg Oral tab [Active]; Invokana 100 mg Oral tab 1 tab once daily [Active]; lisinopril-hydrochlorothiazide Oral [Active]; Tresiba FlexTouch U-100 subcutaneous [Active]; Victoza 2-Abhay subcutaneous [Active]; brio inhaler [Active]; Xanax 2 mg Oral tab 3 times per day [Active]; - PMHx: 15:30 Asthma; Cirrhosis; COPD; Diabetes - IDDM; Hepatitis; resolved; Hypertension; ld1 Pancreatitis; Pneumonia; - Immunization history:: Adult Immunizations up to date, Client reports receiving the 2nd dose of the Covid vaccine. - Social history:: Smoking status: Patient denies any tobacco usage or history of. Patient/guardian denies using alcohol. ROS: 16:18 Constitutional: Negative for fever, chills, and weight loss. kb 16:18 Abdomen/GI: Positive for abdominal pain, nausea and vomiting. 16:18 All other systems are negative. Exam: 16:18 Constitutional: This is a well developed, well nourished patient who is awake, alert, kb and in no acute distress. Head/Face: Normocephalic, atraumatic. ENT: Moist Mucous membranes Cardiovascular: Regular rate and rhythm with a normal S1 and S2. No gallops, murmurs, or rubs. No pulse deficits. Respiratory: Respirations even and unlabored. No increased work of breathing, no retractions or nasal flaring. Skin: Warm, dry with normal turgor. Normal color. MS/ Extremity: Pulses equal, no cyanosis. Neurovascular intact. Full, normal range of motion. Neuro: Awake and alert, GCS 15, oriented to person, place, time, and situation. Moves all extremities. Normal gait. Psych: Awake, alert, with orientation to person, place and time. Behavior, mood, and affect are within normal limits. 16:18 Abdomen/GI: Inspection: abdomen appears normal, Bowel sounds: normal, Palpation: soft, in all quadrants, moderate abdominal tenderness, in the left lower quadrant. Vital Signs: 15:28 BP 184 / 108; Pulse 126; Resp 18; Temp 98.3(TE); Pulse Ox 99% on R/A; Weight 96.62 kg; ld1 Height 5 ft. 4 in. (162.56 cm); Pain 9/10; 18:47 BP 136 / 87; Pulse 103; Resp 16; Pulse Ox 98% on R/A; dh4 18:51 Resp 18 S; Pulse Ox 99% on R/A; iw 20:47 BP 145 / 100; Pulse 87; Resp 18; Pulse Ox 99% on R/A; em 15:28 Body Mass Index 36.56 (96.62 kg, 162.56 cm) ld1 MDM: 15:30 Patient medically screened. kb 16:18 Data reviewed: vital signs, nurses notes. Data interpreted: Pulse oximetry: on room air kb is 99 %. Interpretation: normal. 20:28 Counseling: I had a detailed discussion with the patient and/or guardian regarding: the kb historical points, exam findings, and any diagnostic results supporting the discharge/admit diagnosis, lab results, radiology results, the need for outpatient follow up, a family practitioner, to return to the emergency department if symptoms worsen or persist or if there are any questions or concerns that arise at home. 02/18 15:31 Order name: Basic Metabolic Panel; Complete Time: 17:02 kb 02/18 15:31 Order name: CBC with Diff; Complete Time: 17:02 kb 02/18 15:31 Order name: Hepatic Function; Complete Time: 17:02 kb 02/18 15:31 Order name: Lipase; Complete Time: 17:02 kb 02/18 15:55 Order name: Urine Dipstick-Ancillary; Complete Time: 15:58 EDMS 02/18 15:31 Order name: Labs collected and sent; Complete Time: 16:41 kb 02/18 17:57 Order name: Abdomen ; Complete Time: 19:41 EDMS Administered Medications: 19:41 Drug: NS 0.9% 1000 ml Route: IV; Rate: 1000 ml; Site: right antecubital; em 20:50 Follow up: IV Status: Order to discontinue infusion; IV Intake: 800ml em 19:42 Drug: Zofran (Ondansetron) 4 mg Route: IVP; Site: right antecubital; em 20:10 Follow up: Response: No adverse reaction; Marked relief of symptoms em 19:42 Drug: morphine 4 mg Route: IVP; Site: right antecubital; em 20:10 Follow up: Response: No adverse reaction em 20:46 Drug: Zofran (Ondansetron) 4 mg Route: IVP; Site: right antecubital; em 20:50 Follow up: Response: No adverse reaction em 20:46 Drug: morphine 4 mg Route: IVP; Site: right antecubital; em 20:51 Follow up: Response: No adverse reaction em Disposition: 23:20 Co-signature as Attending Physician, Merlin Chang MD I agree with the assessment and nolvia plan of care. Disposition Summary: 02/18/21 20:29 Discharge Ordered Location: Home kb Condition: Stable kb Diagnosis - Lower abdominal pain, unspecified kb Followup: kb - With: Emergency Department - When: As needed - Reason: Worsening of condition Followup: kb - With: Private Physician - When: 2 - 3 days - Reason: Recheck today's complaints, Continuance of care, Re-evaluation by your physician Discharge Instructions: - Discharge Summary Sheet kb - Abdominal Pain, Adult, [id number] kb Forms: - Medication Reconciliation Form kb - Thank You Letter kb - Antibiotic Education kb - Prescription Opioid Use kb Prescriptions: - Zofran 4 mg Oral Tablet - take 1 tablet by ORAL route every 6 hours As needed; 20 tablet; Refills: 0, kb Product Selection Permitted - Cyclobenzaprine 10 mg Oral Tablet - take 1 tablet by ORAL route every 8 hours As needed; 21 tablet; Refills: 0, kb Product Selection Permitted Signatures: Dispatcher [employer] EDMarixa Liao, [employer]GRAM[employer]-C [employer]-Merlin Goins MD MD cha Munoz, Edgar, RN RN Edilia Johnson, RN RN ld1 Corrections: (The following items were deleted from the chart) 16:20 16:18 Abdomen/GI: Positive for abdominal pain, nausea, kb kb 16:25 16:19 The patient has not experienced similar symptoms in the past, kb kb 17:57 15:31 Abdomen Pelvis W [id number].[id number] ordered. EDCO EDCO
[2021-02-18 21:07] VITALS: TEMP 98.3
[2021-02-18 21:09] VITALS: O2SAT 99
[2021-02-18 21:10] VITALS: BP 145/100
== END 2021-02-18 20:55 | disposition home or self-care (01) ==
LOC: ER 14:13
DX: R10.32 Left lower quadrant pain (principal); R11.2 Nausea with vomiting, unspecified; I10 Essential (primary) hypertension; E11.9 Type 2 diabetes mellitus without complications; Z79.4 Long term (current) use of insulin; Z88.0 Allergy status to penicillin; Z88.5 Allergy status to narcotic agent
CPT/HCPCS: 96361; 85025; 80048; 36415; 80076; 81003; 83690; 74176; 96375; 96374; 99284; J2405 ×2

== ENCOUNTER 2021-10-05 10:13 | Emergency (ER) | payer OTHER ==
--- OUTSIDE RECORDS SUMMARY | 2021-10-05 10:19 | XMS REPORT | Continuity of Care Document ---
:1950 Author Organization [facility] t Address [address] [place] [address] Care Team Providers Name Role Phone Rudy James RN Attending Clinician Unavailable Raquel Perez DO Attending Clinician Chaz NIX Attending Clinician Raquel PEREZ Attending Clinician Unavailable Doctor Unassigned, Name Attending Clinician Unavailable Chaz NIX Admitting Clinician Payers Payer Name Policy Type Policy Number Effective Date Expiration Date S ource Problems Condition Condition Condition Status Onset Resolution Last Treating Co mments Source Name Details Category Date Date Treatment Clinician Date Pneumonia Pneumonia Disease Active Uni vers due to due to 2-23 ity of COVID-19 COVID-19 00:00: [place] virus virus Medical Branch Obesity Obesity Disease Active Univers (BMI (BMI 7-10 ity of 30-39.9) 30-39.9) 00:00: [place] 00 Medical Branch Allergies, Adverse Reactions, Alerts Allergy Allergy Status Severity Reaction(s) Onset Inactive Treating Comm ents Source Name Type Date Date Clinician Propoxyp Propensi Active Nausea Univer s hene ty to and/or 12-17 ity of N-Acetam adverse Vomiting 00:00: [place] inophen reaction Medical s Branch Penicill Propensi Active Rash Univer s ins ty to 8 ity of adverse 00:00: [place] reaction 00 Medical s Branch Ketorola Propensi Active Rash Univer s c ty to 12-17 ity of adverse 00:00: [place] reaction 00 Medical s Branch PROPOXYP DRUG Active N/V Univers HENE 12-17 ity of N-ACETAM 00:00: [place] INOPHEN Medical Branch PENICILL Drug Active Rash Univers INS Class 12-17 ity of 00:00: [place] 00 Medical Branch KETOROLA DRUG Active ITCHING Univers C INGREDI 12-17 ity of 00:00: [place] 00 Medical Branch Social History Social Habit Start Date Stop Date Quantity Comments Source [facility] Exposure to Not sure [facility] SARS-CoV-2 [facility] (event) Branch Alcohol intake 2020-06-11 2020-06-11 Current University 00:00:00 00:00:00 non-drinker of [facility] alcohol [place] (finding) Tobacco use and 2020-06-11 2020-06-11 [facility] 00:00:00 00:00:00 [facility] Smoking Status Start Date Stop Date Source Never smoker [facility] Branch Medications Ordered Filled Start Stop Current Ordering Indication Dosage Frequency Signature Comments Components Source Medication Medication Date Date Medication? Clinician (SIG) Name Name zinc Yes [id number] 220mg Take 1 Uni vers sulfate 220 2-28 [id number] capsule by ity of (50) mg 00:00: mouth [place] capsule 00 daily. Medical Branch ascorbic Yes [id number] 500mg Take 1 Univers acid, 2-28 [id number] tablet by ity of vitamin C, 00:00: mouth [place] 500 mg 00 daily. Medical tablet Branch zinc Yes [id number] 220mg Take 1 Uni vers sulfate 220 2-28 [id number] capsule by ity of (50) mg 00:00: mouth [place] capsule 00 daily. Medical Branch ascorbic Yes [id number] 500mg Take 1 Univers acid, 2-28 [id number] tablet by ity of vitamin C, 00:00: mouth [place] 500 mg 00 daily. Medical tablet Branch ALPRAZolam Yes 2mg Take 2 mg Un nighat (XANAX) 2 2-27 by mouth 3 ity of mg tablet 21:18: (three) [place] 29 times Medical daily as Branch needed for Sleep. INSULIN 2020-0 Yes 80U inject 80 Unive rs DEGLUDEC 2-27 Units ity of (TRESIBA 21:18: [place] FLEXTOUCH 29 skin every Medi antione U-100 SC) morning. Branch pantoprazol 0 Yes 20mg Take 20 mg Univers e 2-27 by mouth ity of (PROTONIX) 21:18: daily. [place] 20 mg EC 29 Medical tablet Branch insulin 0 Yes inject Univers aspart 2-27 under the ity of prot/insuln 21:18: skin. [place] asp 29 Medical (NOVOLOG Branch MIX 70-30 SC) cloNIDine 2020-0 Yes .2mg Take 0.2 Univ ers 0.2 mg 2-27 mg by ity of tablet 21:18: mouth 3 [place] 29 (three) Medical times Branch daily. metoprolol 0 Yes 50mg Take 50 mg U nivers succinate 2-27 by mouth 2 ity of XL 50 mg 24 21:18: (two) [place] hr tablet 29 times Medical daily. Branch QUEtiapine 0 Yes 800mg Take 800 Un nighat (SEROQUEL) 2-27 mg by ity of 400 mg 21:18: mouth at [place] tablet 29 bedtime. Medical Branch ALPRAZolam 0 Yes 2mg Take 2 mg Un [place] (XANAX) 2 2-27 by mouth 3 ity of mg tablet 21:18: (three) [place] 29 times Medical daily as Branch needed for Sleep. INSULIN 0 Yes 80U inject 80 Unive rs DEGLUDEC 2-27 Units ity of (TRESIBA 21:18: [facility] FLE[facility] 29 skin every Medi antione U-100 SC) morning. Branch pantoprazol 0 Yes 20mg Take 20 mg Univers e 2-27 by mouth ity of (PROTONIX) 21:18: daily. [place] 20 mg EC 29 Medical tablet Branch insulin 2020-0 Yes inject Univers aspart 2-27 under the ity of prot/insuln 21:18: skin. [place] asp 29 Medical (NOVOLOG Branch MIX 70-30 SC) cloNIDine 2020-0 Yes .2mg Take 0.2 Univ ers 0.2 mg 2-27 mg by ity of tablet 21:18: mouth 3 [place] 29 (three) Medical times Branch daily. metoprolol Yes 50mg Take 50 mg U nivers succinate 2-27 by mouth 2 ity of XL 50 mg 24 21:18: (two) [place] hr tablet 29 times Medical daily. Branch QUEtiapine Yes 800mg Take 800 Un nighat (SEROQUEL) 2-27 mg by ity of 400 mg 21:18: mouth at [place] tablet 29 bedtime. Medical Branch ergocalcife Yes [id number] 48061Q Take 1 Univers rol, 2-27 [id number] capsule by ity of vitamin d2, 00:00: mouth [place] 1,250 mcg 00 weekly. Medical (50,000 Branch unit) capsule benzonatate Yes [id number] 200mg Take 2 Univers (TESSALON 2-27 [id number] capsules ity of PERLES) 100 00:00: by mouth 3 [place] mg capsule 00 (three) Medica l times Branch daily as needed for Cough. aspirin 81 Yes [id number] 81mg Take 1 Univers mg chewable 2-27 [id number] tablet by ity of tablet 00:00: mouth [place] 00 daily. Medical Branch ergocalcife Yes [id number] 96446Q Take 1 Univers rol, 2-27 [id number] capsule by ity of vitamin d2, 00:00: mouth [place] 1,250 mcg 00 weekly. Medical (50,000 Branch unit) capsule benzonatate Yes [id number] 200mg Take 2 Univers (TESSALON 2-27 [id number] capsules ity of PERLES) 100 00:00: by mouth 3 [place] mg capsule 00 (three) Medica l times Branch daily as needed for Cough. aspirin 81 Yes [id number] 81mg Take 1 Univers mg chewable 2-27 [id number] tablet by ity of tablet 00:00: mouth [place] 00 daily. Medical Branch dexAMETHaso 2020- No [id number] 4mg Take 1 Univers ne 4 mg 2-27 03-05 [id number] tablet by ity of tablet 00:00: 05:59 mouth [place] 00 :00 daily with Medical breakfast Branch for 5 days. dexAMETHaso 2020- No [id number] 4mg Take 1 Univers ne 4 mg 06-15 [id number] tablet by ity of tablet 00:00: 05:59 mouth [place] 00 :00 daily with Medical breakfast Branch for 5 days. enoxaparin Yes 40mg 40 mg, Unive rs (LOVENOX) 06-14 Subcutaneo ity of injection 15:00: [place], DAILY, [place] 40 mg 00 First dose Medical on Wed Branch 06/14/20 at 0900, Until Discontinu ed, Routine iohexol 2020- No 100mL 100 mL, Unive rs (OMNIPAQUE 06-13 Intravenou it y of 350 14:30: 14:07 s, ONCE, 1 [place] BULK-100 00 :00 dose, [place] Medica l mL) 06/13/20 at Branch injection 0830, 100 mL Routine enoxaparin No 1mg/kg 100 mg Un nighat (LOVENOX) 06-13 (rounded ity o f injection 02:00: 07:50 from 101 [place] as 100 mg 00 :01 mg = 1 Medical mg/kg ?101 Branch kg), Subcutaneo us, Q12H, First dose (after last modificati on) on Wed06/12/20 at 2000, Until Discontinu ed, Routine enoxaparin 2020- No 60mg 60 mg, Univ ers (LOVENOX) 06-12 Subcutaneo ity of injection 19:15: 19:21 us, ONCE [place] 60 mg 00 :00 NOW, 1 Medical dose, Wed Branch 06/12/20 at 1315, Routine tc 2020- No 7mCi 7 Univers 99m-albumin 06-12 millicurie i ty of (DRAXIMAGE 18:30: 18:20 , [place] MAA) 00 :00 Intravenou Medical injection 7 s, ONCE, 1 Br anch millicurie dose, Wed06/12/20 at 1230, Routine furosemide Yes 20mg 20 mg, IV Un nighat (LASIX) 06-12 Push, ity of injection 18:00: DAILY, [place] 20 mg 00 First dose Medical on Wed Branch 06/12/20 at 1200, Until Discontinu ed, Routine ALPRAZolam Yes 2mg 2 mg, Univer s (XANAX) 2-24 Oral, ity of tablet 2 mg 17:45: TIDPRN, [place] 00 Starting Medical Wed Branch 06/12/20 at 1145, Until Discontinu ed, Routine, anxiety HYDROcodone 0 Yes 1{tbl} 1 tablet, Univers -acetaminop 2-24 Oral, ity of hen (NORCO) 17:42: Q6HPRN, [place] as 10-325 mg 07 Starting Medica l tablet 1 Wed Branch tablet 06/12/20 at 1142, Until Discontinu ed, Routine, Pain (scale 4-6), Pain (scale 7-10) ascorbic Yes 1000mg 1,000 mg, Un [place] acid 2-24 Oral, ity of (vitamin C) 15:00: DAILY, [place] (VITAMIN C) 00 First dose Me dical tablet on Wed Branch 1,000 mg 06/12/20 at 0900, Until Discontinu ed, Routine zinc Yes 220mg 220 mg, Univers sulfate 2-24 Oral, ity of (ORAZINC) 15:00: DAILY, [place] capsule 220 00 First dose Me dical mg on Wed Branch 06/12/20 at 0900, Until Discontinu ed, Routine pantoprazol Yes 20mg 20 mg, Univ ers e 2-24 Oral, ity of (PROTONIX) 15:00: DAILY, [place] EC tablet 00 First dose Medi antione 20 mg on Wed Branch 06/12/20 at 0900, Until Discontinu ed, Routine montelukast Yes 10mg 10 mg, Univ ers (SINGULAIR) 2-24 Oral, ity of tablet 10 15:00: DAILY, [place] mg 00 First dose Medical on Wed Branch 06/12/20 at 0900, Until Discontinu ed, Routine insulin 0 Yes 80U 80 Units, Unive rs glargine 2-24 Subcutaneo ity o f (LANTUS 15:00: us, DAILY, [place] U-100) 00 First dose Medical injection on Wed Branch 80 Units 06/12/20 at 0900, Until Discontinu ed QUEtiapine 2021-0 Yes 800mg 800 mg, Uni vers (SEROQUEL) 2-24 Oral, QHS, ity of tablet 800 03:00: First dose [place] mg 00 on [facility] 06/11/20 at [place] 2100, Until Discontinu ed, Routine metoprolol Yes 50mg 50 mg, Unive rs succinate 2-24 Oral, BID, ity of XL (TOPROL 02:00: First dose [place] XL) tablet 00 on [facility] 50 mg 06/11/20 at [place] 1999, Until Discontinu ed, Routine cloNIDine Yes .2mg 0.2 mg, Unive rs (CATAPRES) 2-24 Oral, TID, ity of tablet 0.2 02:00: First dose [place] mg 00 on [facility] 06/11/20 at [place] 1999, Until Discontinu ed, Routine albuterol-i Yes 2{puff} 2 Puff, Univers pratropium 24 Inhalation ity of (COMBIVENT 02:00: , QID, [place] RESPIMAT) 00 First dose Medi antione 20-100 on [facility] mcg/actuati 06/11/20 at on inhaler 1999, 2 Puff Until Discontinu ed
Is this order for a patient with suspected or confirmed COVID-19 infection? Yes iron 2020- No 1000mg 1,000 mg, Unive rs dextran 06-12 IV ity of (INFED) 01:45: 07:54 [place]fusion, [place] 1,000 mg in 00 :00 ONCE, 1 Medic al NaCl 0.9% dose, Counts Include [facility] Branc h (NS) 500 mL 06/11/20 at IV infusion 194, 500 mL magnesium 2020- No 1g 1 g, IV Univ ers sulfate in 06-12 Piggyback, it y of D5W 1 01:45: 04:48 ONCE, 1 [place] gram/100 mL 00 :00 dose, Counts Include 234 [facility] Med ical RTU IV 06/11/20 at [place] Piggyback 1 1944, 100 g mL HYDROcodone 0 2020- No 1{tbl} 1 tablet, Univers -acetaminop 06-12 Oral, ity of hen (NORCO 00:30: 00:33 ONCE, 1 [place] 5) 5-325 mg 00 :00 dose, Tue Med ical tablet 1 06/11/20 at Bran h tablet 1830, Routine proMETHazin Yes 12.5mg 12.5 mg, Univers e 06-11 IV ity of (PHENERGAN) 23:42: Piggyback, [place] 12.5 mg in 03 Q6HPRN, Medica l NaCl 0.9% Starting Branch (NS) 50 mL Tue IV 06/11/20 at piggyback 1742, Until Discontinu ed, Routine, Nausea and Vomiting (N/V) LORazepam 2 2020- No 2mg Take 2 mg Univers mg tablet 06-11 by mouth 3 ity of 23:21: 00:00 (three) [place] 17 :00 times Medical daily as Branch needed. canaglifloz 2020- No 100mg Take 100 Univers in 06-11 mg by ity of (INVOKANA) 23:21: 00:00 mouth [place] 100 mg 12 :00 daily. Medical tablet Branch ALPRAZolam 2020- No 2mg 2 mg, Unive rs (XANAX) 06-11 Oral, ity of tablet 2 mg 23:20: 17:43 BIDPRN, [place] 52 :22 Starting Medical Tue Branch 06/11/20 at 1720, Until 06/12/20 at 1143, Routine, anxiety HYDROcodone 2020- No 1{tbl} 1 tablet, Univers -acetaminop 06-11 Oral, ity of hen (NORCO) 23:17: 17:43 Q6HPRN, [place] 10-325 mg 21 :22 Starting Medica l tablet 1 Tue Branch tablet 06/11/20 at 1717, Until 06/12/20 at 1143, Routine, Pain (scale 7-10) Sliding Yes Subcutaneo Univ ers Scale 2-23 us, TID ity of Insulin - 23:00: MEALS+HS, [place] as Lispro 00 First dose Medical (HumaLOG) + on Tue Branch Fsbg 06/11/20 at Testing 1700, Until Discontinu ed, Routine enoxaparin 2020- No 40mg 40 mg, Univ ers (LOVENOX) 06-11 Subcutaneo ity of injection 23:00: 18:04 us, DAILY, [place] 40 mg 00 :51 First dose Medical on [facility] 06/11/20 at 1700, Until Discontinu ed, Routine codeine-gua Yes 10mL 10 mL, Univ ers ifenesin 06-11 Oral, ity of (ROBITUSSIN 22:37: Q6HPRN, [place] AC) 10-100 32 Starting Medic al mg/5 mL Counts Include [facility] Branch solution 10 06/11/20 at mL 1637, Until Discontinu ed, Routine, Cough acetaminoph Yes 650mg 650 mg, Un nighat en 06-11 Oral, ity of (TYLENOL) 22:32: Q6HPRN, [place] tablet 650 47 Starting Medic al mg Counts Include [facility] Branch 06/11/20 at 1632, Until Discontinu ed, Routine, Pain (scale 1-3) diphenhydrA 2020- No 25mg 25 mg, Uni vers MINE 06-11 Slow IV ity of (BENADRYL) 21:00: 19:58 Push, [place] injection 00 :00 ONCE, 1 Medical 25 mg dose, [facility] 06/11/20 at 1500, STAT metoclopram 2020- No 10mg 10 mg, Uni vers chrissy HCl 06-11 Slow IV ity of (REGLAN) 21:00: 19:58 Push, [place] injection 00 :00 ONCE, 1 Medical 10 mg dose, [facility] 06/11/20 at 1500, [place] HYDROcodone 2020- No 1{tbl} 1 tablet, Univers -acetaminop 06-11 Oral, ity of hen (NORCO 19:30: 18:28 ONCE, 1 [place] 5) 5-325 mg 00 :00 dose, Counts Include [address] [facility] Med ical tablet 1 06/11/20 at Bran h tablet 1330, HELENE NaCl 0.9% 2020- No 1000mL at 999 Uni vers (NS) bolus 06-11- mL/hr, ity of infusion 18:30: 18:28 1,000 mL, [place] as 1,000 mL 00 :00 IV Medical Infusion, Branch ONCE, 1 dose, 06/11/20 at 1230, HEL[place] ondansetron 2020- No 4mg 4 mg, Slow Univers (ZOFRAN 06-11 IV Push, ity of (PF)) 18:15: 17:14 ONCE, 1 [place] injection 4 00 :00 dose, Tue Med ical mg 06/11/20 at Branch 1215, HELENE codeine-gua 2020- No 10mL 10 mL, Uni vers ifenesin 06-11 Oral, ity of (ROBITUSSIN 17:45: 17:05 ONCE, 1 [place] AC) 10-100 00 :00 dose, Tue Medi antione mg/5 mL 06/11/20 at [place] solution 10 1145, HELENE mL acetaminoph 2020- No 1000mg 1,000 mg, Univers en 06-11 Oral, ity of (TYLENOL) 17:45: 16:50 ONCE, 1 [place] tablet 00 :00 dose, Tue Medical 1,000 mg 06/11/20 at [facility] h 1145, HEL[place] albuterol 2020- No 2.5mg 2.5 mg, Uni vers (PROVENTIL) 06-11 Inhalation i ty of 2.5 mg /3 16:45: 16:48 , ONCE, 1 [place] mL (0.083 00 :00 dose, Tue Medic al %) 06/11/20 at [place] nebulizer 1045, STAT solution 2.5 mg NaCl 0.9% 2020- No 1000mL at 999 Uni vers (NS) bolus 06-11 mL/hr, ity of infusion 16:45: 19:31 1,000 mL, [place] as 1,000 mL 00 :00 IV Medical Infusion, [place] ONCE, 1 dose, 06/11/20 at 1045, HEL[place] traMADOL 2016- Yes 50mg Take 1 Univers (ULTRAM) 50 7-10 tablet by ity of mg tablet 00:00: mouth [place] 00 every 6 Medical (six) Branch hours as needed for Pain (scale 7-10). levoFLOXaci 2017-0 Yes 500mg Take 1 Uni vers n 7-10 tablet by ity of (LEVAQUIN) 00:00: mouth [place] 500 mg 00 every 24 Medical tablet (twenty-fo Branch ur) hours. traMADOL No 50mg Take 1 Univer s (ULTRAM) 50 7-10 - tablet by it y of mg tablet 00:00: 00:00 mouth [place] 00 :00 every 6 Medical (six) Branch hours as needed for Pain (scale 7-10). levoFLOXaci No 500mg Take 1 Un nighat n 7-10 06-11 tablet by ity of (LEVAQUIN) 00:00: 00:00 mouth [place] 500 mg 00 :00 every 24 Medical tablet (twenty-fo Branch ur) hours. ALPRAZolam 2015-04 Yes 2mg Take 2 mg Un nighat (XANAX) 2 1-27 by mouth 3 ity of mg tablet 04:30: (three) [place] 37 times Medical daily as Branch needed for Sleep. INSULIN 2015-04 Yes inject Univers DEGLUDEC 05-15 under the ity of (TRESIBA 04:30: skin. [place] FLEXTOUCH 37 Medical U-100 SC) Branch canaglifloz 2015-04 Yes 100mg Take 100 U nivers in 1-27 mg by ity of (INVOKANA) 04:30: mouth [place] 100 mg 37 daily. Medical tablet Branch ondansetron 2015-04 Yes 4mg Take 1 Univ ers (ZOFRAN, 1-27 tablet by ity of HYDROCHLORI 00:00: mouth [place] DE,) 4 mg 00 every 8 Medical tablet (eight) Branch hours as needed for Nausea and Vomiting (N/V). ciprofloxac 2015-04 Yes 500mg Take 1 Uni vers in HCl 1-27 tablet by ity of (CIPRO) 500 00:00: mouth 2 [place] mg tablet 00 (two) Medical times Branch daily. metroNIDAZO 2015-04 Yes 500mg Take 1 Uni vers LE (FLAGYL) 1-27 tablet by ity of 500 mg 00:00: mouth 2 [place] tablet 00 (two) Medical times Branch daily. traMADOL 2015-04 Yes 50mg Take 1 Univers (ULTRAM) 50 1-27 tablet by ity of mg tablet 00:00: mouth [place] 00 every 6 Medical (six) Branch hours as needed for Pain (scale 7-10). ondansetron 2015-04 Yes 4mg Take 1 Univ ers (ZOFRAN, 1-27 tablet by ity of HYDROCHLORI 00:00: mouth [place] DE,) 4 mg 00 every 8 Medical tablet (eight) Branch hours as needed for Nausea and Vomiting (N/V). ondansetron 2015-04 Yes 4mg Take 1 Univ ers (ZOFRAN, 1-27 tablet by ity of HYDROCHLORI 00:00: mouth [place] DE,) 4 mg 00 every 8 Medical tablet (eight) Branch hours as needed for Nausea and Vomiting (N/V). ciprofloxac 2015-04- No 500mg Take 1 Un nighat in HCl 05-15 tablet by ity of (CIPRO) 500 00:00: 00:00 mouth 2 [place] mg tablet 00 :00 (two) Medical times Branch daily. metroNIDAZO 2015-04- No 500mg Take 1 Un [place] LE (FLAGYL) 05-15 tablet by it y of 500 mg 00:00: 00:00 mouth 2 [place] tablet 00 :00 (two) Medical times Branch daily. traMADOL 2015-04- No 50mg Take 1 Univer s (ULTRAM) 50 05-15 tablet by it y of mg tablet 00:00: 00:00 mouth [place] 00 :00 every 6 Medical (six) Branch hours as needed for Pain (scale 7-10). ondansetron Yes 4mg Take 1 Tab Univers (ZOFRAN, 4-05 by mouth ity of HYDROCHLORI 00:00: every 8 [place] DE,) 4 mg 00 (eight) Medical tablet hours as Branch needed for Nausea and Vomiting (N/V). acetaminoph Yes 1{tbl} Take 1 Tab Univers en-codeine 4-05 by mouth ity o f (TYLENOL-CO 00:00: every 6 [place] DEINE #3) 00 (six) Medical 300-30 mg hours as Branch tablet needed for Pain (scale 4-6). ondansetron Yes 4mg Take 1 Tab Univers (ZOFRAN, 4-05 by mouth ity of HYDROCHLORI 00:00: every 8 [place] DE,) 4 mg 00 (eight) Medical tablet hours as Branch needed for Nausea and Vomiting (N/V). ondansetron Yes 4mg Take 1 Tab Univers (ZOFRAN, 4-05 by mouth ity of HYDROCHLORI 00:00: every 8 [place] DE,) 4 mg 00 (eight) Medical tablet hours as Branch needed for Nausea and Vomiting (N/V). acetaminoph 2020- No 1{tbl} Take 1 Tab Univers en-codeine 4-05 02-23 by mouth ity of (TYLENOL-CO 00:00: 00:00 every 6 [place] DEINE #3) 00 :00 (six) Medical 300-30 mg hours as Branch tablet needed for Pain (scale 4-6). esomeprazol 2010-04 Yes TAKE 1 Univ ers e (NEXIUM) 0-31 CAPSULE ity of 40 mg 00:00: EVERY DAY [place] capsule 00 WITH Medical BREAKFAST Branch esomeprazol 2010-04 No TAKE 1 Uni vers e (NEXIUM) 0-31 02- CAPSULE ity o f 40 mg 00:00: 00:00 EVERY DAY [place] capsule 00 :00 WITH Medical BREAKFAST Branch gabapentin Yes 400mg Take 1 Cap Univers (NEURONTIN) 2 by mouth 3 it y of 400 mg 00:00: (three) [place] capsule 00 times Medical daily. Branch gabapentin 2020- No 400mg Take 1 Cap Univers (NEURONTIN) 2- by mouth 3 i ty of 400 mg 00:00: 00:00 (three) [place] capsule 00 :00 times Medical daily. Branch albuterol-i 2009-04 Yes 2{puff} Inhale 2 Univers pratropium 0-22 Puffs 4 ity of (COMBIVENT 00:00: (four) [place] INHALER) 00 times Medical 18-103 daily. Branch mcg/Actuati on inhaler albuterol-i 2009-04- No 2{puff} Inhale 2 Univers pratropium 0-22 02-23 Puffs 4 ity o f (COMBIVENT 00:00: 00:00 (four) [place] INHALER) 00 :00 times Medical 18-103 daily. Branch mcg/Actuati on inhaler traMADOL 2009-04 Yes [id number] 50mg Take 1 Tab Univers (ULTRAM) 50 0-06 by mouth ity of mg tablet 00:00: every 6 [place] 00 (six) Medical hours as Branch needed for Pain. hydrocodone 2009-04 Yes [id number] 1{tbl} Take 1 Tab Univers -acetaminop 0-06 by mouth ity of hen (NORCO) 00:00: every 6 [place] 10-325 mg 00 (six) Medical per tablet hours as Branc h needed for Pain. albuterol-i 2009-04 Yes [id number] 2{puff} Inhale 2 Univers pratropium 0-06 Puffs 4 ity of (COMBIVENT 00:00: (four) [place] INHALER) 00 times Medical 18-103 daily. Branch mcg/Actuati on inhaler montelukast 2009-04 Yes [id number] 10mg Take 1 Tab Univers (SINGULAIR) 0-06 by mouth ity of 10 mg 00:00: daily. [place] tablet 00 Medical Branch fluticasone 2009-04 Yes 2{spray Use 2 Un nighat (FLONASE) 0-06 } Sprays in ity o f 50 00:00: each [place] mcg/Actuati 00 nostril Medic al on nasal daily. Branch spray traMADOL 2009-04 Yes [id number] 50mg Take 1 Tab Univers (ULTRAM) 50 0-06 by mouth ity of mg tablet 00:00: every 6 [place] 00 (six) Medical hours as Branch needed for Pain. hydrocodone 2009-04 Yes [id number] 1{tbl} Take 1 Tab Univers -acetaminop 0-06 by mouth ity of hen (NORCO) 00:00: every 6 [place] as 10-325 mg 00 (six) Medical per tablet hours as Branc h needed for Pain. esomeprazol 2009-04 Yes 40mg Take 1 Cap Univers e (NEXIUM) 0-06 by mouth ity o f 40 mg 00:00: daily with [place] capsule 00 breakfast. Medica l Branch carvedilol 2009-04 Yes [id number] 25mg Take 2 Un [place]hat (COREG) 0-06 Tabs by ity of 12.5 mg 00:00: mouth 2 [place] tablet 00 (two) Medical times Branch daily with meals. valsartan 2009-04 Yes [id number] 320mg Take 1 Tab Univers (DIOVAN) 0-06 by mouth ity of 320 mg 00:00: daily. [place] tablet 00 Medical Branch albuterol-i 2009-04 Yes [id number] 2{puff} Inhale 2 Univers pratropium 0-06 Puffs 4 ity of (COMBIVENT 00:00: (four) [place] INHALER) 00 times Medical 18-103 daily. Branch mcg/Actuati on inhaler montelukast 2009-04 Yes [id number] 10mg Take 1 Tab Univers (SINGULAIR) 0-06 by mouth ity of 10 mg 00:00: daily. [place] tablet 00 Medical Branch metFORMIN 2009-04 Yes [id number] 500mg Take 1 Tab Univers (GLUCOPHAGE 0-06 by mouth ity of ) 500 mg 00:00: daily. [place] tablet 00 Medical Branch loratadine 2009-04 Yes 10mg Take 1 Tab U nivers (CLARITIN) 0-06 by mouth ity o f 10 mg 00:00: daily. [place] tablet 00 Medical Branch fluticasone 2009-04 Yes 2{spray Use 2 Un nighat (FLONASE) 0-06 } Sprays in ity o f 50 00:00: each [place] mcg/Actuati 00 nostril Medic al on nasal daily. Branch spray traMADOL 2009-04 Yes [id number] 50mg Take 1 Tab Univers (ULTRAM) 50 0-06 by mouth ity of mg tablet 00:00: every 6 [place] 00 (six) Medical hours as Branch needed for Pain. hydrocodone 2009-04 Yes [id number] 1{tbl} Take 1 Tab Univers -acetaminop 0-06 by mouth ity of hen (NORCO) 00:00: every 6 [place] 10-325 mg 00 (six) Medical per tablet hours as Branc h needed for Pain. albuterol-i 2009-04 Yes [id number] 2{puff} Inhale 2 Univers pratropium 0-06 Puffs 4 ity of (COMBIVENT 00:00: (four) [place] INHALER) 00 times Medical 18-103 daily. Branch mcg/Actuati on inhaler montelukast 2009-04 Yes [id number] 10mg Take 1 Tab Univers (SINGULAIR) 0-06 by mouth ity of 10 mg 00:00: daily. [place] tablet 00 Medical Branch fluticasone 2009-04 Yes 2{spray Use 2 Un nighat (FLONASE) 0-06 } Sprays in ity o f 50 00:00: each [place] mcg/Actuati 00 nostril Medic al on nasal daily. Branch spray esomeprazol 2009-04- No 40mg Take 1 Cap Univers e (NEXIUM) 06-11 by mouth ity of 40 mg 00:00: 00:00 daily with [place] capsule 00 :00 breakfast. Medica l Branch carvedilol 2009-04- No [id number] 25mg Take 2 U nivers (COREG) 06-11 Tabs by ity of 12.5 mg 00:00: 00:00 mouth 2 [place] tablet 00 :00 (two) Medical times [place] daily with meals. valsartan 2009-04- No [id number] 320mg Take 1 Tab Univers (DIOVAN) 06-11 by mouth ity of 320 mg 00:00: 00:00 daily. [place] tablet 00 :00 Medical Branch metFORMIN 2009-04- No [id number] 500mg Take 1 Tab Univers (GLUCOPHAGE 06-11 by mouth ity of ) 500 mg 00:00: 00:00 daily. [place] tablet 00 :00 Medical Branch loratadine 2009-04- No 10mg Take 1 Tab Univers (CLARITIN) 06-11 by mouth ity of 10 mg 00:00: 00:00 daily. [place] tablet 00 :00 Medical Branch chlorhexidi Yes Swish and U nivers ne 8 spit out. ity of (PERIDEX) 00:00: Mouth [place] 0.12 % Liqd 00 wash, Medical swish and Branch spit, 3 temies a day x 7 days chlorhexidi 2020- No Swish and Univers ne 12-17 spit out. ity of (PERIDEX) 00:00: 00:00 Mouth [place] 0.12 % Liqd 00 :00 wash, Medical swish and Branch spit, 3 temies a day x 7 days Vital Signs Vital Name Observation Time Observation Value Comments Source Systolic blood 2020-06-15 19:00:00 133 mm[Hg] Univer sity of pressure [facility] Diastolic blood 2020-06-15 19:00:00 81 mm[Hg] Unive rsity of pressure [facility] Heart rate 2020-06-15 19:00:00 71 /min Universi ty [facility] Respiratory rate 2020-06-15 19:00:00 21 /min [facility] Body temperature 2020-06-15 17:24:00 35.56 Tho [facility] O[facility] saturation in 2020-06-15 17:14:00 100 /min University of Arterial blood by [facility] Pulse oximetry Branch Body weight 2020-06-11 21:20:00 100.971 kg Universi ty [facility] BMI 2020-06-11 21:20:00 38.21 kg/m2 [facility] Systolic blood 2020-06-15 19:00:00 133 mm[Hg] Univer sity of [facility] Diastolic blood 2020-06-15 19:00:00 81 mm[Hg] Unive rsity of [facility] Heart rate 2020-06-15 19:00:00 71 /min Universi [facility] Respiratory rate 2020-06-15 19:00:00 21 /min [facility] Body temperature 2020-06-15 17:24:00 35.56 Tho [facility] Oxygen saturation in 2020-06-15 17:14:00 100 /min [facility] Arterial blood by [facility] Pulse oximetry Branch Body weight 2020-06-11 21:20:00 [facility] 2020-06-11 21:20:00 38.21 kg/m2 [facility] Procedures Procedure Date / Time Performing Clinician Source Performed POCT GLUCOSE (AUTOMATED) 2020-06-15 17:39:00 Leonarda Perez [facility] BASIC METABOLIC PANEL 2020-06-15 11:05:00 Jena Davidson [facility] (NA, K, CL, CO2, GLUCOSE, Medica l Branch BUN, CREATININE, CA) CBC WITH DIFF 2020-06-15 11:05:00 Jena Davidson [facility] POCT GLUCOSE (AUTOMATED) 2020-06-15 01:31:00 Leonarda Perez [facility] POCT GLUCOSE (AUTOMATED) 2020-06-14 22:14:00 Leonarda Perez [facility] POCT GLUCOSE (AUTOMATED) 2020-06-14 17:32:00 Leonarda Perez [facility] POCT GLUCOSE (AUTOMATED) 2020-06-14 13:51:00 Leonarda Perez [facility] BASIC METABOLIC PANEL 2020-06-14 10:45:00 Jena Davidson [facility] (NA, K, CL, CO2, GLUCOSE, Medica l Branch BUN, CREATININE, CA) CBC WITH DIFF 2020-06-14 10:45:00 Jena Davidson [facility] POCT GLUCOSE (AUTOMATED) 2020-06-14 05:57:00 Leonarda Perez [facility] POCT GLUCOSE (AUTOMATED) 2020-06-14 02:04:00 Leonarda Perez [facility] POCT GLUCOSE (AUTOMATED) 2020-06-13 22:36:00 Leonarda Perez [facility] POCT GLUCOSE (AUTOMATED) 2020-06-13 17:41:00 Leonarda Perez [facility] POCT GLUCOSE (AUTOMATED) 2020-06-13 14:21:00 Leonarda Perez [facility] CT ANGIOGRAM CHEST 2020-06-13 14:17:35 Josi Ware [facility] BASIC METABOLIC PANEL 2020-06-13 09:46:00 Jena Davidson [facility] (NA, K, CL, CO2, GLUCOSE, Medica l Branch BUN, CREATININE, CA) CBC WITH DIFF 2020-06-13 09:46:00 Jena Davidson [facility] PREPARE PLASMA 2020-06-13 04:34:33 [facility] POCT GLUCOSE (AUTOMATED) 2020-06-12 22:57:00 Leonarda Perez [facility] NM LUNG PERFUSION ONLY 2020-06-12 18:45:00 Josi Ware [facility] POCT GLUCOSE (AUTOMATED) 2020-06-12 18:06:00 Leonarda Perez [facility] POCT GLUCOSE (AUTOMATED) 2020-06-12 14:07:00 Leonarda Perez [facility] ABORH CONFIRMATION 2020-06-12 09:30:00 Leonarda Perez [facility] 2020-06-12 09:25:00 Jena Davidson [facility] HB ABO GROUPING 2020-06-12 08:57:00 Reinier, [facility] BASIC METABOLIC PANEL 2020-06-12 08:55:00 Jena Davidson [facility] (NA, K, CL, CO2, GLUCOSE, Medica l Branch BUN, CREATININE, CA) CBC WITH DIFF 2020-06-12 08:55:00 Stuart Jena Marilu [facility] POCT GLUCOSE (AUTOMATED) 2020-06-12 02:03:00 Leonarda Perez [facility] VITAMIN B12, LEVEL 2020-06-11 23:06:00 Stuart Jenadiane Michel [facility] VITAMIN D, 25-OH 2020-06-11 23:06:00 Jena Davidson [facility] PROCALCITONIN 2020-06-11 23:06:00 Stuart Jena [facility] IRON PANEL 2020-06-11 23:05:00 Stuart Jena Marilu [facility] POCT GLUCOSE (AUTOMATED) 2020-06-11 22:52:00 Leonarda Perez [facility] XR CHEST 1 VW 2020-06-11 17:23:51 Leonarda Perez [facility] MAGNESIUM 2020-06-11 16:46:00 Jena Davidson [facility] TROPONIN I 2020-06-11 16:46:00 Leonarda Perez [facility] THYROID STIMULATING 2020-06-11 16:46:00 Jena Davidson [facility] HORMONE [facility] HEPATIC FUNCTION PANEL 2020-06-11 16:46:00 Leonarda Perez [facility] ([id number]) (ALB,T.PRO,BILI Medical Branch T,BU/BC,ALT,AST,ALK PHOS) BASIC METABOLIC PANEL 2020-06-11 16:46:00 Leonarda Perez [facility] (NA, K, CL, CO2, GLUCOSE, Medica l Branch BUN, CREATININE, CA) CBC WITH DIFF 2020-06-11 16:46:00 Leonarda Perez [facility] GLYCOSYLATED HEMOGLOBIN 2020-06-11 16:46:00 Jena Davidson [facility] (A1C) [facility] N-TERMINAL PRO-BNP 2020-06-11 16:46:00 Jena Davidson [facility] LACTIC ACID WHOLE BLOOD 2020-06-11 16:46:00 Leonarda Perez [facility] COVID-19 (ID NOW RAPID 2020-06-11 16:46:00 Leonarda Perez [facility] TESTING) [facility] LAB ONLY COVID 2020-06-11 16:46:[address] [facility] INTERPRETATION [facility] HB ECG ROUTINE & RHYTHM 2020-06-11 16:36:07 Leonarda Perez [facility] CONSENT/REFUSAL FOR 2020-06-11 16:09:15 Doctor Unahoward, [facility] DIAGNOSIS AND TREATMENT [place] [facility] NOTICE OF PRIVACY 2020-06-11 16:08:58 Doctor Elizabeth, [facility] PRACTICES [place] [facility] Encounters Start End Encounter Admission Attending Care Care Encounter Source Date/Time Date/Time Type Type Clinicians Facility Department ID 2020-06-17 2020-06-17 Transition Neeta James [id number] [facility] 00:00:00 00:00:00 of Care Mihir Fedler [id number] [place] [id number] [facility] antione [address] Branch 2020-06-17 2020-06-17 Transition Neeta James [id number] 00:00:00 00:00:00 of Care Mihir Felder [id number] [place] 4.2.7.2.686 [id number] 2020-06-11 2020-06-15 [facility] Leonarda Perez [facility] 1.2.84 0.114 [id number] Univers 10:30:00 15:18:00 Encounter Josi Ware Selvin [id number] ity of [place] 4.2.7.2.686 [facility] [id number] [place] [id number] [place] 2020-06-11 2020-06-15 [facility] Leonarda Perez [facility] 1.2.84 0.114 [id number] 10:30:00 15:18:00 Encounter Josi Ware Selvin [id number] Leonarda Perez 4.2.7.2.686 [facility] [id number] [facility] 2020-06-11 2020-06-11 Emergency X CHRIS [facility] ERT [id number] Univers 10:30:00 10:30:00 LEONARDA ithiwot [facility] 2020-06-11 2020-06-11 Orders Doctor DUONG 1.2.840.114 [id number] [facility] 00:00:00 00:00:00 Only Unassigned, DAVID 350.1.13.10 ity of [place] [facility] 4.2.7.2.686 [place] [id number] [address] 2020-06-11 2020-06-11 Orders Doctor DUONG 1.2.840.114 [id number] 00:00:00 00:00:00 Only Unassigned, DAVID 350.1.13.10 [place] [facility] 4.2.7.2.686 [id number] Results Test Description Test Time Test Comments Results Result Comments Source COMPREHENSIVE METABOLIC PANEL 2021-08-13 05:43:08 Test Item Value Reference Range Interpretation Comme nts GLUCOSE (test code = 2217) 117 MG/DL 70-99 H BUN (test code = 2208) 16 MG/DL 8-23 CREATININE (test code = 0.77 MG/DL 0.60-1.30 2213) eGFR (2020 CKD-EPI) (test 83 ML/MIN/1.73 >60 code = 32172) CALC BUN/CREAT (test code = 21 RATIO -2234) SODIUM (test code = 2231) 142 MEQ/L 133-146 POTASSIUM (test code = 2228) 4.4 MEQ/L 3.5-5.4 CHLORIDE (test code = 2215) 105 MEQ/L 95-107 CARBON DIOXIDE (test code = 17 MEQ/L 19-31 L 2205) CALCIUM (test code = 220) 9.6 MG/DL 8.5-10.5 PROTEIN, TOTAL (test code = 8.2 G/DL 6.1-8.3 2228) ALBUMIN (test code = 220) 4.5 G/DL 3.5-5.2 CALC GLOBULIN (test code = 3.7 G/DL 1.9-3.7 2239) CALC A/G RATIO (test code = 1.2 RATIO 1.0-2.6 2233) BILIRUBIN, TOTAL (test code 0.4 MG/DL See_Comment [Automated message] The = 2206) system which ge nerated this result transmit radha reference range: <=1.2. T he reference range was not u sed to interpret this result as normal/abnormal . ALKALINE PHOSPHATASE (test 113 U/L 40-142 code = 2204) AST (test code = 2218) 39 U/L 9-40 ALT (test code = 2219) 18 U/L 5-40 LIPID [id number] 05:43:08 Test Item Value Reference Range Interpretation Comments CHOLESTEROL (test 180 MG/DL <200 code = 2210) TRIGLYCERIDES (test 142 MG/DL <150 code = 2232) HDL CHOLESTEROL (test 42 MG/DL >39 code = 2220) CALC LDL CHOL (test 113 MG/DL <100 H NOTE: C ALCULATED LDL code = 2237) IS BASED ON YIMI-VEGA METHOD WHICHINCLUDES ADJUSTABLE TRIGLYCERIDE:VL DL CHOLESTEROL RAT IO.THIS FACTOR VARIES B Y MEASURED TRIGLY CERIDE AND NON-HDLCHOL ESTEROL CONCENTRATIONS WITH INCREASED CALCU LATED LDL SEENIN HIGH ER TRIGLYCERIDE OR LOWER NON-HDL SPECIME NS. FOR MOREINFORMATION , SEE CLIENT ANNOUNCE MENT AT [email or web address] RATIO LDL/HDL 2.69 RATIO <3.22 (test code = 2238) HEMOGLOBIN [id number] 03:36:34 Test Item Value Reference Range Interpretation Comments HEMOGLOBIN A1c (test 8.2 % 4.2-5.6 H [place] DIABETES code = 58349) ASSOCIATION IDELINES FOR HGB A1C: PREDIABETES/INC REASED RISK . . . . . . . 5.7 -6.4% DIAGNOSIS OF D IAGIRISHTES . . . . . . . . . > =6.5% WITH CONFIRM ATION OR APPROPRIATE SYM PTOMS NOTE: ASSAY MAY BE AFFECTED BY HEMOGLOBINOP ATHIES (SICKLE THO L ANEMIA, S-C DISEASE, OTHERS ) OR ARTIFICIALLY LO WERED BY DECREASED RED C ELL SURVIVAL (HEMOLYTIC ANEM IAS, BLOOD LOSS, ETC.) . CONSIDER ALTERNATE TESTI NG OR LABORATORY CONS ULTATION. CBC W/AUTO DIFF WITH [id number] 03:15:01 Test Item Value Reference Range Interpretation Comments WBC (test code = 6.8 K/UL 3.5-11.0 1001) RBC (test code = 4.73 M/UL 3.80-5.40 1002) HEMOGLOBIN (test 13.7 G/DL 11.5-15.5 code = 1003) HEMATOCRIT (test 39.9 % 34.0-45.0 code = 1004) MCV (test code = 84.4 fL 80.0-99.0 1005) MCH (test code = 29.0 PG 25.0-33.0 1006) MCHC (test code = 34.3 G/DL 31.0-36.0 1007) RDW (test code = 14.4 % 11.5-15.0 1038) NEUTROPHILS (test 75.2 % code = 1008) LYMPHOCYTES (test 16.6 % code = 1010) MONOCYTES (test code 6.8 % = 1011) EOSINOPHILS (test 0.7 % code = 1012) BASOPHILS (test code 0.4 % = 1013) IMMATURE 0.3 % GRANULOCYTES (test code = 1036) NUCLEATED RBCS (test 0.0 /100 See_Comment [Autom ated message] code = 1065) WBC'S The system [employer] generated this result transmitted ref erence range: 0.0. The reference range was not used to int erpret this result as normal/abnormal . PLATELET COUNT (test 126 K/UL 130-400 L code = 1015) ABSOLUTE NEUTROPHILS 5.12 K/UL 1.50-7.50 (test code = 1066) ABSOLUTE LYMPHOCYTES 1.13 K/UL 1.00-4.00 (test code = 1067) ABSOLUTE MONOCYTES 0.46 K/UL 0.20-1.00 (test code = 1068) ABSOLUTE EOSINOPHILS 0.05 K/UL 0.00-0.50 (test code = 1040) ABSOLUTE BASOPHILS 0.03 K/UL 0.00-0.20 (test code = 1069) ABS IMMATURE 0.02 K/UL 0.00-0.10 GRANULOCYTES (test code = 1020) ABS NUCLEATED RBCS 0.00 K/UL 0.00-0.11 UN LESS (test code = 20058) OTHERWIS E INDICATED, ALL TESTING PER FORMED ATCLINICAL PATH [facility] [place]. [address] [place] [address] LABORATORY DIRE CTOR: DAVID SOLIZ M.D. CLIA NUMBER [id number] CAP ACCREDITATION N O. [id number] CULTURE, [id number] 13:08:15SPECIMEN NUMBER: [id number] CULTURE, ROUTINE SPECIMEN NUMBER: [id number] SPECIMEN COMMENT: L 1ST TOE SOURCE: TOE REPORT STATUS: FINAL DIRECT GRAM STAIN: NO WBCs SEEN RARE GRAM VARIABLE BACILLI FEW GRAM POSITIVE COCCI IN PAIRS AND CLUSTERS ISOLATE NUMBER 1: ORGANISM: 08/02/2021 MODERATE GRAM NEGATIVE BACILLI IDENTIFICATION: 08/03/2021 PSEUDOMONAS PUTIDA ISOLATE NUMBER 2: ORGANISM: 08/03/2021 MODERATE STAPHYLOCOCCUS SPECIES IDENTIFICATION: 08/04/2021 METHICILLIN RESISTANT STAPHYLOCOCCUS AUREUS (MRSA) ADDITIONAL OBSERVATIONS: 08/04/2021 MODERATE NORMAL SKIN CHRISTIANE P. PUTIDA MRSA AMIKACIN SENSITIVE <=16CEFEPIME SENSITIVE <=2CEFTAZIDIME SENSITIVE 4CIPRO FLOXACIN SENSITIVE <=1CLINDAMYCIN RESISTANT >4ERYTHROMYCIN RESISTANT >4LEVOFLOXACIN SENSITIVE <=2MEROPENEM SENSITIVE 2OXACILLIN RESISTANT >2PIP/TAZOBAC SENSITIVE <=16RIFAMPIN SENSITIVE <=1TETRACYCLINE SENSITIVE <=1TOBRAMYCIN SENSITIVE <=4TRIMETH/SULFA SENSITIVE 2/38VANCOMYCIN SENSITIVE 1 NOTE: NUMBERS DISPLAYED REPRESENT MINIMUM INHIBITORY CONCENTRATION (JEIMY) WHICH IS EXPRESSED IN MCG/ML. UNLESS OTHERWISE INDICATED, ALL TESTING PERFORMED [facility] [address] [place] [address] ENAMEL DRIER: DAVID GUALLPA M.D. [place] NUMBER [id number] [facility] [place]. [id number] GLUCOSE (AUTOMATED)2020-06-15 18:35:00 Test Item Value Reference Range Interpretation Comments POCT GLU (test code = 0779513696) 127 mg/dL 70-110 H Lab Interpretation (test code = Abnormal 98454-4) [facility] GLUCOSE (AUTOMATED)2020-06-15 14:28:00 Test Item Value Reference Range Interpretation Comments POCT GLU (test code = 5990683054) 151 mg/dL 70-110 H Lab Interpretation (test code = Abnormal 44996-8) [facility] Metabolic Panel (NA, K, CL, CO2, GLUCOSE, BUN, CREATININE, CA)2020-06-15 12:15:00 Test Item Value Reference Range Interpretation Comments NA (test code = 141 mmol/L 135-145 9896513723) K (test code = 3.6 mmol/L 3.5-5 0976615499) CL (test code = 105 mmol/L 98-108 1732088295) CO2 TOTAL (test code = 30 mmol/L 23-31 5103058488) AGAP (test code = 2-16 4998534209) BUN (test code = 15 mg/dL 7-23 6258760825) GLUCOSE (test code = 89 mg/dL 70-110 9757950717) CREATININE (test code 0.57 mg/dL 0.5-1.04 = 4898821822) CALCIUM (test code = 8.9 mg/dL 8.6-10.6 6335739821) eGFR Calculation mL/min/1.73m2 (Non-) (test code = 9829178378) eGFR Calculation mL/min/1.73m2 () (test code = 9606418110) ISMAEL (test code = ISMAEL) Association of Glomerular Filtration Rate (GFR) and Staging of Kidney Disease* + -+ + ---+| GFR (mL/min/1.73 m2) ?| With Kidney Damage ?| ?Without Kidney Damage+ -------+ ------+ ---------+| ?>90 ?| ?Stage one ?| ? Normal ?+ --+ -+ ----+| ?60-89 ?| ?Stage two ?| ? Decreased GFR ? + -+ + ---+| ?30-59 ?| ?Stage three ?| ? Stage three ? + -+ + ---+| ?15-29 ?| ?Stage four ? | ? Stage four ?+ --+ -+ ----+| ?<15 (or dialysis) ? ?| ?Stage five ? | ? Stage five ?+ --+ -+ ----+ *Each stage assumes the associated GFR level has been in effect for at least three months. ?Stages 1 to 5, with or without kidney disease, indicate chronic kidney disease. Notes: Determination of stages one and two (with eGFR >59mL/min/1.73 m2) requires estimation of kidney damage for at least three months as defined by structural or functional abnormalities of the kidney, manifested by either:Pathological abnormalities or Markers of kidney damage (including abnormalities in the composition of the blood or urine or abnormalities in imaging tests). [facility] with [id number] 12:07:00 Test Item Value Reference Range Interpretation Comments WBC (test code = See_Comment L [Automated 3790-2) message] The sy stem which generated this result transmitted reference range : 4.30 - 11.10 10*3/?L. The reference range was not used to interpret this result as normal/abnormal . RBC (test code = See_Comment [Automated 549-8) message] The sy stem which generated this result transmitted reference range : 3.93 - 5.25 10*6/?L. The reference range was not used to interpret this result as normal/abnormal . HGB (test code = 11.9 g/dL 11.6-15 718-7) HCT (test code = 36.6 % 35.7-45.2 4544-3) MCV (test code = 85.5 fL 80.6-95.5 787-2) MCH (test code = 27.8 pg 25.9-32.8 785-6) MCHC (test code = 32.5 g/dL 31.6-35.1 786-4) RDW-SD (test code = 47.9 fL 39-49.9 77757-5) RDW-CV (test code = 15.2 % 12-15.5 788-0) PLT (test code = See_Comment L [Automated 777-3) message] The sy stem which generated this result transmitted reference range : 166 - 358 10*3/ ?L. The reference r ludivina was not used to interpret this result as normal/abnormal . MPV (test code = 12.1 fL 9.5-12.9 49487-5) NRBC/100 WBC (test See_Comment [Automat ed code = 9720797553) message] The system which generated this result transmitted reference range : 0.0 - 10.0 /100 WBCs. The refer ence range was not u sed to interpret th is result as normal/abnormal . NRBC x10^3 (test code <0.01 See_Comment [Auto mated = 9227599556) message] The s ystem which generated this result transmitted reference range : 10*3/?L. The reference range was not used to interpret this result as normal/abnormal . GRAN MAT (NEUT) % 70.9 % (test code = 770-8) IMM GRAN % (test code 0.50 % = 9224721722) LYMPH % (test code = 20.7 % 736-9) MONO % (test code = 7.9 % 5905-5) EOS % (test code = 0.0 % 713-8) BASO % (test code = 0.0 % 706-2) GRAN MAT x10^3(ANC) 2.87 10*3/uL 1.88-7.09 (test code = 2786983258) IMM GRAN x10^3 (test <0.03 0-0.06 code = 3597922182) LYMPH x10^3 (test code 0.84 10*3/uL 1.32-3.29 L = 731-0) MONO x10^3 (test code 0.32 10*3/uL 0.33-0.92 L = 742-7) EOS x10^3 (test code = <0.03 0.03-0.39 L 711-2) BASO x10^3 (test code <0.03 0.01-0.07 = 704-7) Lab Interpretation Abnormal (test code = 10576-2) [facility] GLUCOSE (AUTOMATED)2020-06-14 22:51:00 Test Item Value Reference Range Interpretation Comments POCT GLU (test code = 7246265512) 162 mg/dL 70-110 H Lab Interpretation (test code = Abnormal 51900-4) [facility] GLUCOSE (AUTOMATED)2020-06-14 17:54:00 Test Item Value Reference Range Interpretation Comments POCT GLU (test code = 8373138678) 156 mg/dL 70-110 H Lab Interpretation (test code = Abnormal 56885-9) [facility] GLUCOSE (AUTOMATED)2020-06-14 14:57:00 Test Item Value Reference Range Interpretation Comments POCT GLU (test code = 8523273137) 179 mg/dL 70-110 H Lab Interpretation (test code = Abnormal 96678-9) [facility] (NA, K, CL, CO2, GLUCOSE, BUN, CREATININE, CA)2020-06-14 14:40:00 Test Item Value Reference Range Interpretation Comments NA (test code = 138 mmol/L 135-145 8478409654) K (test code = 4.1 mmol/L 3.5-5 6305010853) CL (test code = 104 mmol/L 98-108 9567484233) CO2 TOTAL (test code = 25 mmol/L 23-31 0992401320) AGAP (test code = 2-16 3978739231) BUN (test code = 15 mg/dL 7-23 8637613130) GLUCOSE (test code = 194 mg/dL 70-110 H 8429852088) CREATININE (test code = 0.49 mg/dL 0.5-1.04 L 5677786732) CALCIUM (test code = 8.7 mg/dL 8.6-10.6 2626697058) eGFR Calculation mL/min/1.73m2 (Non-) (test code = 6086862121) eGFR Calculation mL/min/1.73m2 () (test code = 3560196447) ISMAEL (test code = ISMAEL) Association of Glomerular Filtration Rate (GFR) and Staging of Kidney Disease* + --+ --+ ------+| GFR (mL/min/1.73 m2) ?| With Kidney Damage ?| ?Without Kidney Damage+ --------+ --------+ +| ?>90 ?| ?Stage one ?| ? Normal ?+ ---+ ---+ -------+| ?60-89 ?| ?Stage two ?| ? Decreased GFR ? + --+ --+ ------+| ?30-59 ?| ?Stage three ?| ? Stage three ? + --+ --+ ------+| ?15-29 ?| ?Stage four ? | ? Stage four ?+ ---+ ---+ -------+| ?<15 (or dialysis) ? ?| ?Stage five ? | ? Stage five ?+ ---+ ---+ -------+ *Each stage assumes the associated GFR level has been in effect for at least three months. ?Stages 1 to 5, with or without kidney disease, indicate chronic kidney disease. Notes: Determination of stages one and two (with eGFR >59mL/min/1.73 m2) requires estimation of kidney damage for at least three months as defined by structural or functional abnormalities of the kidney, manifested by either:Pathological abnormalities or Markers of kidney damage (including abnormalities in the composition of the blood or urine or abnormalities in imaging tests). Lab Interpretation Abnormal (test code = 79093-5) [facility] with [id number] 12:46:00 Test Item Value Reference Range Interpretation Comments WBC (test code = See_Comment L [Automated 8952-2) message] The sy stem which generated this result transmitted reference range : 4.30 - 11.10 10*3/?L. The reference range was not used to interpret this result as normal/abnormal . RBC (test code = See_Comment [Automated 770-8) message] The sy stem which generated this result transmitted reference range : 3.93 - 5.25 10*6/?L. The reference range was not used to interpret this result as normal/abnormal . HGB (test code = 11.4 g/dL 11.6-15 L 718-7) HCT (test code = 36.3 % 35.7-45.2 4544-3) MCV (test code = 86.8 fL 80.6-95.5 787-2) MCH (test code = 27.3 pg 25.9-32.8 785-6) MCHC (test code = 31.4 g/dL 31.6-35.1 L 786-4) RDW-SD (test code = 48.3 fL 39-49.9 65740-2) RDW-CV (test code = 15.1 % 12-15.5 788-0) PLT (test code = See_Comment L [Automated 777-3) message] The sy stem which generated this result transmitted reference range : 166 - 358 10*3/ ?L. The reference r ludivina was not used to interpret this result as normal/abnormal . MPV (test code = 11.8 fL 9.5-12.9 38900-2) IPF % (test code = 5.8 % 1.3-7.7 Platelet count 6836986119) measured by fluorescence method. NRBC/100 WBC (test See_Comment [Automat ed code = 0233782328) message] The system which generated this result transmitted reference range : 0.0 - 10.0 /100 WBCs. The refer ence range was not u sed to interpret th is result as normal/abnormal . NRBC x10^3 (test code <0.01 See_Comment [Auto mated = 8353504438) message] The s ystem which generated this result transmitted reference range : 10*3/?L. The reference range was not used to interpret this result as normal/abnormal . GRAN MAT (NEUT) % 76.8 % (test code = 770-8) IMM GRAN % (test code 0.30 % = 0596327676) LYMPH % (test code = 15.9 % 736-9) MONO % (test code = 7.0 % 5905-5) EOS % (test code = 0.0 % 713-8) BASO % (test code = 0.0 % 706-2) GRAN MAT x10^3(ANC) 2.76 10*3/uL 1.88-7.09 (test code = 9326131050) IMM GRAN x10^3 (test <0.03 0-0.06 code = 8301456307) LYMPH x10^3 (test code 0.57 10*3/uL 1.32-3.29 L = 731-0) MONO x10^3 (test code 0.25 10*3/uL 0.33-0.92 L = 742-7) EOS x10^3 (test code = <0.03 0.03-0.39 L 711-2) BASO x10^3 (test code <0.03 0.01-0.07 = 704-7) Lab Interpretation Abnormal (test code = 97878-4) [facility] GLUCOSE (AUTOMATED)2020-06-14 06:24:00 Test Item Value Reference Range Interpretation Comments POCT GLU (test code = 7585640756) 272 mg/dL 70-110 H Lab Interpretation (test code = Abnormal 29141-6) [facility] GLUCOSE (AUTOMATED)2020-06-14 02:26:00 Test Item Value Reference Range Interpretation Comments POCT GLU (test code = 318 mg/dL 70-110 H Notifi ed Provider [id number]) Lab Interpretation (test Abnormal code = 94553-6) [facility] GLUCOSE (AUTOMATED)2020-06-14 02:08:00 Test Item Value Reference Range Interpretation Comments POCT GLU (test code = [id number]) 279 mg/dL 70-110 H Lab Interpretation (test code = Abnormal 67633-7) [facility] GLUCOSE (AUTOMATED)2020-06-13 19:05:00 Test Item Value Reference Range Interpretation Comments POCT GLU (test code = [id number]) 250 mg/dL 70-110 H Lab Interpretation (test code = Abnormal 87408-3) [facility] [facility]2020-06-13 15:51:00 Test Item Value Reference Range Interpretation Comments POCT GLU (test code = 0387866171) 242 mg/dL 70-110 H Lab Interpretation (test code = Abnormal 41764-1) [facility] with [id number] 15:39:00 Test Item Value Reference Range Interpretation Comments WBC (test code = See_Comment LL [Automated 5690-2) message] The sy stem which generated this result transmitted reference range : 4.30 - 11.10 10*3/?L. The reference range was not used to interpret this result as normal/abnormal . RBC (test code = See_Comment [Automated 789-8) message] The sy stem which generated this result transmitted reference range : 3.93 - 5.25 10*6/?L. The reference range was not used to interpret this result as normal/abnormal . HGB (test code = 11.4 g/dL 11.6-15 L 718-7) HCT (test code = 35.7 % 35.7-45.2 4544-3) MCV (test code = 86.9 fL 80.6-95.5 787-2) MCH (test code = 27.7 pg 25.9-32.8 785-6) MCHC (test code = 31.9 g/dL 31.6-35.1 786-4) RDW-SD (test code = 48.3 fL 39-49.9 19956-9) RDW-CV (test code = 15.1 % 12-15.5 788-0) PLT (test code = See_Comment L [Automated 777-3) message] The sy stem which generated this result transmitted reference range : 166 - 358 10*3/ ?L. The reference r ludivina was not used to interpret this result as normal/abnormal . MPV (test code = 11.7 fL 9.5-12.9 79755-3) IPF % (test code = 5.3 % 1.3-7.7 Platelet count [id number]) measured by fluorescence method. NRBC/100 WBC (test See_Comment [Automat ed code = 0604066941) message] The system which generated this result transmitted reference range : 0.0 - 10.0 /100 WBCs. The refer ence range was not u sed to interpret th is result as normal/abnormal . NRBC x10^3 (test code <0.01 See_Comment [Auto mated = 2445490340) message] The s ystem which generated this result transmitted reference range : 10*3/?L. The reference range was not used to interpret this result as normal/abnormal . GRAN MAT (NEUT) % 58.2 % (test code = 770-8) IMM GRAN % (test code 0.50 % = 4808598487) LYMPH % (test code = 25.5 % 736-9) MONO % (test code = 15.8 % 5905-5) EOS % (test code = 0.0 % 713-8) BASO % (test code = 0.0 % 706-2) GRAN MAT x10^3(ANC) 1.14 10*3/uL 1.88-7.09 L (test code = 6637620669) IMM GRAN x10^3 (test <0.03 0-0.06 code = 7216925289) LYMPH x10^3 (test code 0.50 10*3/uL 1.32-3.29 L = 731-0) MONO x10^3 (test code 0.31 10*3/uL 0.33-0.92 L = 742-7) EOS x10^3 (test code = <0.03 0.03-0.39 L 711-2) BASO x10^3 (test code <0.03 0.01-0.07 = 704-7) PLT ESTIMATE (test Decreased Normal A code = 9317-9) Lab Interpretation Abnormal (test code = 81191-1) [facility] [id number] 14:28:03HISTORY: Elevated D dimer and inconclusive VQ scan for PE. TECHNIQUE: Contrast-enhanced 64-mutidetector CT scan of the chest wascompleted with intravenous injection of ?non ionic contrast medium.Subsequently numerous sagittal, coronal and MIP reformations weregenerated. FINDINGS: Small nodules suspected in the left thyroid lobe. Trachea andcentral bronchial airways appear normal. No enlarged hilar ormediastinal lymph nodes detected. Patchy areas ofperipherally based ground glass hazy infiltrates noted with slightlynodular configuration in the anterior basal segment of right lower lung. Nopleural effusion or pericardial effusion. Pleural reaction/pleuralthickening is seen along the posterior lower chest on both sides. No acute pulmonary thromboembolism detected. Mild atherosclerosis is notedin the aortic arch. No significant coronary atherosclerosis is appreciated.No definite evidence of hiatal hernia. Cholecystectomy clips are seen in the right upper abdomen. Hepatosplenomegaly suspected with cirrhotic liver morphology. No free fluidis seen in the upper abdomen. Posterior right lobe of the liver showed 9 mmhypodense lesion, another 12 mm hypodense lesion is seen also in thecentral portion ofthe right lobe of the liver, stable when compared [id number] CT studies. No aggressive bone lesions. Degenerative disc disease noted at T11-T12,T9-T10 levels and there is minimal compression in the upperplate of L2evlvicdxh body. CONCLUSIONS:1. No acute pulmonary thromboembolism.2. Bilateral peripherally base ground glass hazy infiltrates, consistentwith COVID 19 pulmonary infection. No lobar pneumonia. No pleural effusion. [facility], Radiant Results Inft User - 06/13/2020 8:29 AM CSTHISTORY: Elevated D dimer and inconclusive VQ scan for PE.TECHNIQUE: Contrast-enhanced 64-mutidetector CT scan of the chest wascompleted with intravenous injection of non ionic contrast medium.Subsequently numerous sagit casey, coronal and MIP reformations weregenerated.FINDINGS: Small nodules suspected in the left thyroid lobe. Trachea andcentral bronchial airways appear normal.No enlarged hilar or mediastinal lymph nodes detected. Patchy areas ofperipherally based ground glass hazy infiltrates noted with slightlynodular configuration in the anterior basal segment of right lower lung. Nopleural effusion or pericardialeffusion. Pleural reaction/pleuralthickening is seen along the posterior lower chest on both sides.No acute pulmonary thromboembolism detected. Mild atherosclerosis is notedin the aortic arch. No significant coronary atherosclerosis is appreciated.No definite evidence of hiatal hernia.Cholecystectomy clips are seen in the right upper abdomen.Hepatosplenomegaly suspected with cirrhotic liver morphology. No free fluidis seen in the upper abdomen. Posterior right lobe of the liver showed 9 mmhypodense lesion, another 12 mm hypodense lesion is seen also in thecentral portion of the right lobe of the liver, stable when compared [id number] CT studies.No aggressive bone lesions. Degenerative disc disease noted at T11-T12,T9-T10 levels and there is minimal compression in the upper plate of T1rruwryujg body.CONCLUSIONS:1. No acute pulmonary thromboembolism.2. Bilateral peripherally base ground glass hazy infiltrates, consistentwith COVID 19 pulmonary infection. No lobar pneumonia. No pleural effusion.[facility] Met[facility] Panel (NA, K, CL, CO2, GLUCOSE, BUN, CREATININE, CA)2020-06-13 13:09:00 Test Item Value Reference Range Interpretation Comments NA (test code = 135 mmol/L 135-145 9702066384) K (test code = 4.2 mmol/L 3.5-5 1275396338) CL (test code = 103 mmol/L 98-108 3124208573) CO2 TOTAL (test code = 26 mmol/L 23-31 4885289775) AGAP (test code = 2-16 8648166634) BUN (test code = 16 mg/dL 7-23 9449453978) GLUCOSE (test code = 204 mg/dL 70-110 H 1867305702) CREATININE (test code = 0.58 mg/dL 0.5-1.04 0562593988) CALCIUM (test code = 8.4 mg/dL 8.6-10.6 L 0792866424) eGFR Calculation mL/min/1.73m2 (Non-) (test code = 5483571304) eGFR Calculation mL/min/1.73m2 () (test code = 3586346567) ISMAEL (test code = ISMAEL) Association of Glomerular Filtration Rate (GFR) and Staging of Kidney Disease* + --+ --+ ------+| GFR (mL/min/1.73 m2) ?| With Kidney Damage ?| ?Without Kidney Damage+ --------+ --------+ +| ?>90 ?| ?Stage one ?| ? Normal ?+ ---+ ---+ -------+| ?60-89 ?| ?Stage two ?| ? Decreased GFR ? + --+ --+ ------+| ?30-59 ?| ?Stage three ?| ? Stage three ? + --+ --+ ------+| ?15-29 ?| ?Stage four ? | ? Stage four ?+ ---+ ---+ -------+| ?<15 (or dialysis) ? ?| ?Stage five ? | ? Stage five ?+ ---+ ---+ -------+ *Each stage assumes the associated GFR level has been in effect for at least three months. ?Stages 1 to 5, with or without kidney disease, indicate chronic kidney disease. Notes: Determination of stages one and two (with eGFR >59mL/min/1.73 m2) requires estimation of kidney damage for at least three months as defined by structural or functional abnormalities of the kidney, manifested by either:Pathological abnormalities or Markers of kidney damage (including abnormalities in the composition of the blood or urine or abnormalities in imaging tests). Lab Interpretation Abnormal (test code = 38254-6) [facility] Plasma (in units): 1 Units~Indication: Dilutional [id number] 04:34:33 Test Item Value Reference Range Interpretation Comments Unit Blood Type (test O Pos code = 4410) ISBT Blood Type Code (test code = 350889) Unit Number (test code [id number] = 4411) Blood Expiration Date & Time (test code = 647719) Status Information Issued (test code = 4412) Product Identification FFP (test code = 4413) Product Code (test Q2676A69 Performed at [facility] code = 4414) Laboratory Services - [facility] Blood [address] [place] [id number] Free: [phone] A No. [id number] [facility] CenterLAB ONLY COVID [id number] 04:02:00COVID DMT InterpretationInterpretation/Recommendations: Molecular NAAT Tests for Active Infection with the SARS-CoV-2 Virus: The current test result is positive for the SARS-CoV-2 virus that causes COVID-19 illness. In rjvc-ai-vosbevbm illness, the patient may be considered no longer infectious whenit has been after 10 days since symptom onset, the patient has been afebrile for 24 hours without the use of fever-reducing medications, AND other symptoms of COVID-19 are improving. However, in patients who have been severely ill with COVID-19 or are severely immunocompromised, isolation up to 20 days after symptom onset is recommended. Asymptomatic patients are considered infectious for the first 10 days subsequent to the initial positive test result. From the onset of symptoms, if any, this result is likely to remain positive up to 2-4 weeks. Tests for IgM and/or IgG Antibodies to the SARS-CoV-2 Virus: ? Testing for IgM and IgG antibodies approximately 3 weeks after illness onset will likely indicate whether the patient has produced antibodies to the SARS-CoV-2 virus. However, some patients may take longer to develop detectable antibodies, while some patients who were infected with SARS-CoV-2 may never develop antibodies. While antibodies to SARS-CoV-2 may provide some degree of immunity, at this time the strength and duration of the antibody response is unknown. Interpretation Result Comments:These interpretation comments are based upon all COVID-19 testing the patient has had at [facility], including molecular NAAT testing (more commonly known as PCR testing and Rapid ID Now testing) and antibody testing. It does not take into account any testing that a patient has had outside of the [facility] medical record. [facility] LABORATORY SERVICESCOVID NycigncJEIA-UrT-5 Rapid ID NOW (no units) ? ? Date ? Value ? 06/11/2020 ? Positive (A) ? [facility] LABORATORY SERVICESUnChildren[facility] Medical [facility] DallasVITAMIN B12, [id number] 00:01:00 Test Item Value Reference Range Interpretation Comments VIT B12 (test code = 436 pg/mL 240-930 5925414605) ISMAEL (test code = ISMAEL) Biotin has been reported to cause a positive bias, interpret results relative to patient's use of biotin. Lab Interpretation (test Normal code = 14856-1) [facility] GLUCOSE (AUTOMATED)2020-06-12 23:59:00 Test Item Value Reference Range Interpretation Comments POCT GLU (test code = 0214673445) 197 mg/dL 70-110 H Lab Interpretation (test code = Abnormal 56083-9) [facility] GLUCOSE (AUTOMATED)2020-06-12 23:59:00 Test Item Value Reference Range Interpretation Comments POCT GLU (test code = 4520126121) 280 mg/dL 70-110 H Lab Interpretation (test code = Abnormal 17546-1) [facility] CenterNM LUNG PERFUSION [id number] 19:07:15 Study inconclusive for pulmonary embolism.PULMONARY PERFUSION SCAN INDICATION: Respiratory failure elevated d-dimer in COVID, concern PE TECHNIQUE: Ventilation imaging was not performed due to coronavirusprecautions. The patient received an intravenous injection of 7 mCi [id number] MAA, and planar images were subsequently acquired in the anterior,posterior, right anterior oblique, left anterior oblique, left posterioroblique, and right posterior oblique projections. ? Comparison made with chest imaging from 06/11/2020. FINDINGS: Posterior segment of left upper lung showed subsegmental perfusion defe ct.Additional subsegmental perfusion abnormalities noted also in the leftlower lung. [facility], Radiant Results Inft User - 06/12/2020 1:08 PM CSTPULMONARY PERFUSION SCANINDICATION: Respiratory failure elevated d-dimer in COVID, concern PE TECHNIQUE: Ventilation imaging was not performed due to coronavirus precautions. The patient received an intravenous injection of 7 mCi [id number] MAA, and planar images were subsequently acquired in the anterior,posterior, right anterior oblique, left anterior oblique, left posterioroblique, and right posterior oblique projections. Comparison made with chest imaging from 06/11/2020.FINDINGS:Posterior segment of left upper lung showed subsegmental perfusion defect.Additional subsegmental perfusion abnormalities noted also in the leftlower lung.IMPRESSIONStudy inconclusive for pulmonary embolism. [facility] CenterP[facility] ([facility]ATED)2020-06-12 14:59:00 Test Item Value Reference Range Interpretation Comments POCT GLU (test code = 3507999999) 144 mg/dL 70-110 H Lab Interpretation (test code = Abnormal 49529-2) [facility] CenterD-[id number] 13:11:00 Test Item Value Reference Interpretation Comments Range D-DIMER (test code = See_Comment H [Autom ated 5295543222) message] The system which generated this result transmitted reference range : <0.41 ?g/mL (FEU). The reference range was not used to interpret this result as normal/abnormal . ISMAEL (test code = This test may be ISMAEL) used in conjunction with a clinical pretest probability (PTP) assessment model to exclude venous thromboembolism (VTE) in patients suspected of deep venous thrombosis (DVT) and pulmonary embolism (PE) A D-Dimer value less than 0.50 ?g/ml (FEU) has a negative predicative value of 96 to 100% (95% CI)and 97 to 100% (95% CI) as an aid in the diagnosis of deep vein thrombosis (DVT) and pulmonary embolism when there is low or moderate pretest probability of PE or DVT. D-Dimer values are expressed in initial fibrinogen equivalent units (FEU)" The assay results should be used with other information, including the clinical context, in forming a diagnosis. Lab Interpretation Abnormal (test code = 69676-5) [facility] CenterABORH [id number] 12:08:53 Test Item Value Reference Range Interpretation Comments ABO & RH (test code O Positive Performe d at [facility] = 20) Laboratory [facility] Blood Bank[address] [place], [place] [address]Toll Free: [phone] A No. [id number] [facility] CenterType and Screen - ONCE [id number] 10:05:49 Test Item Value Reference Range Interpretation Comments ABO & RH (test code O Positive Performe d at [facility] = 20) Laboratory [facility] Blood [address] [place], [place] [address]Toll Free: [phone] A No. [id number] IAT (test code = Negative Performed a t [facility] 1185) Laboratory [facility] Blood [address] [place], [place] [address]Toll Free: [phone] A No. [id number] [facility] CenterBasi Metabolic Panel (NA, K, CL, CO2, GLUCOSE, BUN, CREATININE, CA)2020-06-12 09:35:00 Test Item Value Reference Range Interpretation Comments NA (test code = 135 mmol/L 135-145 2246898757) K (test code = 3.9 mmol/L 3.5-5 8737887208) CL (test code = 104 mmol/L 98-108 0230981255) CO2 TOTAL (test code = 26 mmol/L 23-31 5287092084) AGAP (test code = 2-16 8993360003) BUN (test code = 13 mg/dL 7-23 3854346796) GLUCOSE (test code = 162 mg/dL 70-110 H 4612011349) CREATININE (test code = 0.76 mg/dL 0.5-1.04 9298355882) CALCIUM (test code = 7.7 mg/dL 8.6-10.6 L 9379390471) eGFR Calculation mL/min/1.73m2 (Non-) (test code = 8804703502) eGFR Calculation mL/min/1.73m2 () (test code = 1851503245) ISMAEL (test code = ISMAEL) Association of Glomerular Filtration Rate (GFR) and Staging of Kidney Disease* + --+ --+ ------+| GFR (mL/min/1.73 m2) ?| With Kidney Damage ?| ?Without Kidney Damage+ --------+ --------+ +| ?>90 ?| ?Stage one ?| ? Normal ?+ ---+ ---+ -------+| ?60-89 ?| ?Stage two ?| ? Decreased GFR ? + --+ --+ ------+| ?30-59 ?| ?Stage three ?| ? Stage three ? + --+ --+ ------+| ?15-29 ?| ?Stage four ? | ? Stage four ?+ ---+ ---+ -------+| ?<15 (or dialysis) ? ?| ?Stage five ? | ? Stage five ?+ ---+ ---+ -------+ *Each stage assumes the associated GFR level has been in effect for at least three months. ?Stages 1 to 5, with or without kidney disease, indicate chronic kidney disease. Notes: Determination of stages one and two (with eGFR >59mL/min/1.73 m2) requires estimation of kidney damage for at least three months as defined by structural or functional abnormalities of the kidney, manifested by either:Pathological abnormalities or Markers of kidney damage (including abnormalities in the composition of the blood or urine or abnormalities in imaging tests). Lab Interpretation Abnormal (test code = 47292-6) [facility] with Yvthiukkrqyq9958-39-54 09:24:00 Test Item Value Reference Range Interpretation Comments WBC (test code = See_Comment L [Automated 4347-2) message] The sy stem which generated this result transmitted reference range : 4.30 - 11.10 10*3/?L. The reference range was not used to interpret this result as normal/abnormal . RBC (test code = See_Comment [Automated 447-8) message] The sy stem which generated this result transmitted reference range : 3.93 - 5.25 10*6/?L. The reference range was not used to interpret this result as normal/abnormal . HGB (test code = 11.1 g/dL 11.6-15 L 718-7) HCT (test code = 35.3 % 35.7-45.2 L 4544-3) MCV (test code = 87.8 fL 80.6-95.5 787-2) MCH (test code = 27.6 pg 25.9-32.8 785-6) MCHC (test code = 31.4 g/dL 31.6-35.1 L 786-4) RDW-SD (test code = 49.2 fL 39-49.9 35993-6) RDW-CV (test code = 15.3 % 12-15.5 788-0) PLT (test code = See_Comment L [Automated 777-3) message] The sy stem which generated this result transmitted reference range : 166 - 358 10*3/ ?L. The reference r ludivina was not used to interpret this result as normal/abnormal . MPV (test code = 11.3 fL 9.5-12.9 40571-4) IPF % (test code = 3.7 % 1.3-7.7 Platelet count 3062642533) measured by fluorescence method. NRBC/100 WBC (test See_Comment [Automat ed code = 6365151822) message] The system which generated this result transmitted reference range : 0.0 - 10.0 /100 WBCs. The refer ence range was not u sed to interpret th is result as normal/abnormal . NRBC x10^3 (test code <0.01 See_Comment [Auto mated = 2120076552) message] The s ystem which generated this result transmitted reference range : 10*3/?L. The reference range was not used to interpret this result as normal/abnormal . GRAN MAT (NEUT) % 56.9 % (test code = 770-8) IMM GRAN % (test code 0.70 % = 2844424995) LYMPH % (test code = 25.0 % 736-9) MONO % (test code = 17.1 % 5905-5) EOS % (test code = 0.3 % 713-8) BASO % (test code = 0.0 % 706-2) GRAN MAT x10^3(ANC) 1.73 10*3/uL 1.88-7.09 L (test code = 8348668091) IMM GRAN x10^3 (test <0.03 0-0.06 code = 9493729408) LYMPH x10^3 (test code 0.76 10*3/uL 1.32-3.29 L = 731-0) MONO x10^3 (test code 0.52 10*3/uL 0.33-0.92 = 742-7) EOS x10^3 (test code = <0.03 0.03-0.39 L 711-2) BASO x10^3 (test code <0.03 0.01-0.07 = 704-7) Lab Interpretation Abnormal (test code = 27332-6) [facility] CenterVITAMIN D, [id number] 07:22:00 Test Item Value Reference Range Interpretation Comments VIT D 25OH (test code = 20 ng/mL 25-80 L 55103-6) ISMAEL (test code = ISMAEL) Deficiency: <20 ng/mLInsufficiency: 20-24 ng/mLOptimal: 25-80 ng/mL Lab Interpretation (test Abnormal code = 97552-9) [facility] CenterPROCALCITONIN2021-02-24 06:16:00 Test Item Value Reference Range Interpretation Comments Procalcitonin (test 0.06 ng/mL <0.07 code = 7531516191) ISMAEL (test code = ISMAEL) INTERPRETATION OF PROCALCITONIN RESULTS IN ADULTS >= 18 YEARS OF AGE Initiation and discontinuation of antibiotics on patients with suspected or confirmed Lower Respiratory Tract Infection in Adults >= 18 years of age. + +-------- --------+ + -----+|Procalcitonin |Interpretation ?|Antibiotic ? ? |Considerations ? |ng/mL ? | ?|recommendation | ? + +-------- --------+ + -----+| <0.1 ? | Bacterial ? ? ?| Strongly ? ? ?| ? | ?| infection very | discouraged ? | Overruling: ? | ?| unlikely ? ? ? | ? | ? Clinically unstable ? ? ? + +-------- --------+ + ? High risk for adverse ? ? | <0.25 ?| Bacterial ? ? ?| Discouraged ? | ? outcome ? | ?| infection ? ? ?| ? | ? SEE IMPORTANT NOTE ?| ?| unlikely ? ? ? | ? | ? + +-------- --------+ + -----+| >=0.25 ? ? ? | Bacterial ? ? ?| Encouraged ? ?| ? | ?| infection ? ? ?| ? | ? | ?| likely ? | ? | Consider treatment failure ?+ +------- ---------+ -+ if levels does not decrease | >0.5 ? | Bacterial ? ? ?| Strongly ? ? ?| appropriately ? | ?| infection very | encouraged ? ?| ? | ?| likely ? | ? | ? + +-------- --------+ + -----+ Discontinuation of antibiotics in high-acuity patients with suspected or confirmed sepsis in Adults >= 18 years of age. + +-------- --------+ + -----+|Procalcitonin |Interpretation ?|Antibiotic ? ? |Considerations ? |ng/mL ? | ?|recommendation | ? + +-------- --------+ + -----+| <0.25 ?| Bacterial ? ? ?| Strongly ? ? ?| ? | ?| infection very | discouraged ? | Overruling: ? | ?| unlikely ? ? ? | ? | ? Clinically unstable ? ? ? + +-------- --------+ + ? High risk for adverse ? ? | <0.5 or drop | Bacterial ? ? ?| Discouraged ? | ? outcome ? | >80% from ? ?| infection ? ? ?| ? | ? SEE IMPORTANT NOTE ?| highest PCT ?| unlikely ? ? ? | ? | ? | level ?| ?| ? | ? + +-------- --------+ + -----+| >=0.5 ?| Bacterial ? ? ?| Encouraged ? ?| ? | ?| infection ? ? ?| ? | ? | ?| likely ? | ? | Consider treatment failure ?+ +------- ---------+ -+ if levels does not decrease | >1.0 ? | Bacterial ? ? ?| Strongly ? ? ?| appropriately ? | ?| infection very | encouraged ? ?| ? | ?| likely ? | ? | ? + +-------- --------+ + -----+ Percentage of drop of Procalcitonin calculation for Discontinuation of antibiotics in high-acuity patients with suspected or confirmed sepsis in Adults >= 18 years of age. ? Procalcitonin highest{}-Procalcitonin current{}Delta Procalcitonin = x100% ? Procalcitonin current {} IMPORTANT NOTE: Procalcitonin may be elevated without bacterial infection by physiologic stress related to trauma, barnett, chronic dialysis, metastatic cancer, surgery in the past seven days, malaria, some fungal infections, and some forms of vasculitis. The interpretation algorithm may not apply to patients with immunosuppression (equivalent of >10 mg of prednisone daily), HIV with CD4 cell count < 350 cells/mm3, active malignancy on systemic chemotherapy, solid organ transplant or hematopoietic stem cell transplantation, or hospital acquired pneumonia. Additionally, some clinical trials of procalcitonin have excluded patients with shock requiring vasopressor use, acute respiratory failure requiring mechanical ventilation, or those with known lung abscess/empyema. For further information please refer to:[email or web address] Lab Interpretation Normal (test code = 65573-6) [facility] GLUCOSE (AUTOMATED)2020-06-12 02:08:00 Test Item Value Reference Range Interpretation Comments POCT GLU (test code = 1926515864) 166 mg/dL 70-110 H Lab Interpretation (test code = Abnormal 83046-3) [facility] GLUCOSE (AUTOMATED)2020-06-12 00:03:00 Test Item Value Reference Range Interpretation Comments POCT GLU (test code = 0598894468) 144 mg/dL 70-110 H Lab Interpretation (test code = Abnormal 62421-9) [facility] CenterIRON [id number] 00:02:00 Test Item Value Reference Range Interpretation Comments IRON (test code = 0477010918) 27 ug/dL 50-160 L TIBC (test code = 2753883009) 335 ug/dL 250-410 % FE SAT (test code = 6856847789) 8 % 20-50 L Lab Interpretation (test code = Abnormal 42305-9) [facility] CenterGLYCOSYLATED HEMOGLOBIN (A1C)2020-06-12 00:01:00 Test Item Value Reference Range Interpretation Comments HGB A1C (test code = 10.8 % 4-6 H 4548-4) ISMAEL (test code = ISMAEL) %A1C (NGSP) Interpretation (ADA)4.8-5.6 ? ? Normal or (Non-Diabetic Range)5.7-6.4 ? ? Increased Risk (Pre-Diabetic)>6.5 ?Diabetes Indicated Lab Interpretation Abnormal (test code = 96173-1) [facility] [id number] 23:31:00 Test Item Value Reference Range Interpretation Comments TSH (test code = See_Comment [Automated message] [id number]) The system [employer] generated this result transmitted ref erence range: 0.45 - 4 .70 mIU/L. The refe rence range was not u sed to interpret this result as normal/abnor mal. Lab Interpretation (test Normal code = 43813-6) [facility] CenterN-[facility]MINAL [id number] 23:10:00 Test Item Value Reference Range Interpretation Comments NT-proBNP (test code 41 pg/mL See_Comment [Autom ated = 7762886962) message] The system which generated this result transmitted reference range : <=125. The reference range was not used to interpret this result as normal/abnormal . ISMAEL (test code = ISMAEL) Biotin has been reported to cause a negative bias, interpret results relative to patient's use of biotin. Lab Interpretation Normal (test code = 87285-1) [facility] CenterMagn[facility] [id number] 23:00:00 Test Item Value Reference Range Interpretation Comments MAGNESIUM (test code = 6699359098) 1.6 mg/dL 1.7-2.4 L Lab Interpretation (test code = Abnormal 22056-8) [facility] CenterRichy [id number] 17:29:00 Test Item Value Reference Range Interpretation Comments TROPONIN I (test 0.001 ng/mL See_Comment [Automated code = 1691970548) message] The system which generated this result transmitted reference range : <=0.034. The reference range was not used to interpret this result as normal/abnormal . ISMAEL (test code = Equal or Less than ISMAEL) 0.034 ng/ml---Normal ?Note: Cardiac troponin begins to rise 3-4 hours after the onset of ischemia. Repeat in 4-6 hours if the sample was drawn within 3-4 hours of the onset of the symptom and found normal. Between 0.035 and 0.120 ng/mL--- Borderline. Questionable myocardial injury or necrosis ? ?Note: Serial measurement may be necessary to confirm or exclude the diagnosis of myocardial injury or necrosis; Clinical correlation (symptoms, EKGs, imaging studies, and others) required; Repeat in 4-6 hours if clinically indicated. ? Equal or Higher than 0.121 ng/mL---Abnormal. Myocardial Injury or Necrosis Likely ? Biotin has been reported to cause a negative bias, interpret results relative to patient's use of biotin. ? Lab Interpretation Normal (test code = 76789-3) [facility] 1 [id number] 17:26:01HISTORY: Cough, fever, SOB, hypoxia. TECHNIQUE: Portable AP erect view of the chest is obtained. Comparison ismade with 06/23/2016 study. FINDINGS: No acute pneumonia. No pneumothorax or pleural effusionorpulmonary congestion detected. Cardiac size is within normal limits. CONCLUSIONS: No signs of acute cardiopulmonary disease.[facility], Radiant Results Inft User - 06/11/2020 11:27 AM CSTHISTORY: Cough, fever, SOB, hypoxia.TECHNIQUE: Portable AP erect view of the chest is obtained. Comparison ismade with06/23/2016 study.FINDINGS: No acute pneumonia. No pneumothorax or pleural effusion orpulmonary congestion detected. Cardiac size is within normal limits. CONCLUSIONS: No signs of acute cardiopulmonary disease. [facility] CenterC[facility] (ID NOW RAPID TESTING)2020-06-11 17:23:00 Test Item Value Reference Range Interpretation Comments SARS-CoV-2 Rapid ID NOW Positive Not Detected A (test code = 06575-4) ISMAEL (test code = ISMAEL) ID NOW COVID-19 Assay is an isothermal nucleic acid amplification test intended for the qualitative detection of nucleic acid from SARS-CoV-2 viral RNA in nasopharyngeal (TOLL COLLECTOR SUPERVISOR) specimens. It is used under Emergency Use Authorization (EUA) by FDA. The limit of detection (LOD) of the assay is 125 Genome Equivalents/mL. A positive result is indicative of the presence of SARS-CoV-2 RNA. ?Clinical correlation with patient history and other diagnostic information is necessary to determine patient infection status. A negative (Not Detected) result does not preclude SARS-CoV-2 infection. In patients with clinical symptoms and other tests that are consistent with SARS-CoV-2 infection, negative results should be treated as presumptive negative and a new specimen should be tested with alternative PCR molecular test. Invalid: Please collect a new specimen for repeat patient testing if clinically indicated. Lab Interpretation Abnormal (test code = 12340-2) [facility] (NA, K, CL, CO2, GLUCOSE, BUN, CREATININE, CA)2020-06-11 17:18:00 Test Item Value Reference Range Interpretation Comments NA (test code = 134 mmol/L 135-145 L 8614294549) K (test code = 3.8 mmol/L 3.5-5 6030818239) CL (test code = 101 mmol/L 98-108 3180956069) CO2 TOTAL (test code = 21 mmol/L 23-31 L 0118679177) AGAP (test code = 2-16 8311999240) BUN (test code = 12 mg/dL 7-23 7889310607) GLUCOSE (test code = 173 mg/dL 70-110 H 6714186546) CREATININE (test code = 0.72 mg/dL 0.5-1.04 1606256891) CALCIUM (test code = 9.0 mg/dL 8.6-10.6 4140038329) eGFR Calculation mL/min/1.73m2 (Non-) (test code = 5857469601) eGFR Calculation mL/min/1.73m2 () (test code = 7512889181) ISMAEL (test code = ISMAEL) Association of Glomerular Filtration Rate (GFR) and Staging of Kidney Disease* + --+ --+ ------+| GFR (mL/min/1.73 m2) ?| With Kidney Damage ?| ?Without Kidney Damage+ --------+ --------+ +| ?>90 ?| ?Stage one ?| ? Normal ?+ ---+ ---+ -------+| ?60-89 ?| ?Stage two ?| ? Decreased GFR ? + --+ --+ ------+| ?30-59 ?| ?Stage three ?| ? Stage three ? + --+ --+ ------+| ?15-29 ?| ?Stage four ? | ? Stage four ?+ ---+ ---+ -------+| ?<15 (or dialysis) ? ?| ?Stage five ? | ? Stage five ?+ ---+ ---+ -------+ *Each stage assumes the associated GFR level has been in effect for at least three months. ?Stages 1 to 5, with or without kidney disease, indicate chronic kidney disease. Notes: Determination of stages one and two (with eGFR >59mL/min/1.73 m2) requires estimation of kidney damage for at least three months as defined by structural or functional abnormalities of the kidney, manifested by either:Pathological abnormalities or Markers of kidney damage (including abnormalities in the composition of the blood or urine or abnormalities in imaging tests). Lab Interpretation Abnormal (test code = 29656-1) [facility] CenterHep[facility] Function Panel (ALB, T.PRO, BILI T, BU/BC, ALT, AST, ALK PHOS)2020-06-11 17:18:00 Test Item Value Reference Range Interpretation Comments TOTAL BILI (test code = 3426246732) 0.7 mg/dL 0.1-1.1 BILI UNCON (test code = 8130155139) 0.6 mg/dL 0.1-1.1 BILI CONJ (test code = 9329865696) 0.0 mg/dL 0-0.3 T PROTEIN (test code = 0532124128) 8.3 g/dL 6.3-8.2 H ALBUMIN (test code = 4744322192) 4.5 g/dL 3.5-5 ALK PHOS (test code = 1925390600) 124 U/L 34-122 H ALTv (test code = 1742-6) 50 U/L 5-35 H AST(SGOT) (test code = 7228874222) 103 U/L 13-40 H Lab Interpretation (test code = Abnormal 82636-7) [facility] with [id number] 17:07:00 Test Item Value Reference Range Interpretation Comments WBC (test code = See_Comment [Automated 7090-2) message] The sy stem which generated this result transmitted reference range : 4.30 - 11.10 10*3/?L. The reference range was not used to interpret this result as normal/abnormal . RBC (test code = See_Comment [Automated 069-8) message] The sy stem which generated this result transmitted reference range : 3.93 - 5.25 10*6/?L. The reference range was not used to interpret this result as normal/abnormal . HGB (test code = 13.7 g/dL 11.6-15 718-7) HCT (test code = 42.2 % 35.7-45.2 4544-3) MCV (test code = 84.7 fL 80.6-95.5 787-2) MCH (test code = 27.5 pg 25.9-32.8 785-6) MCHC (test code = 32.5 g/dL 31.6-35.1 786-4) RDW-SD (test code = 45.5 fL 39-49.9 03583-4) RDW-CV (test code = 14.8 % 12-15.5 788-0) PLT (test code = See_Comment L [Automated 777-3) message] The sy stem which generated this result transmitted reference range : 166 - 358 10*3/ ?L. The reference r ludivina was not used to interpret this result as normal/abnormal . MPV (test code = 12.1 fL 9.5-12.9 35040-2) IPF % (test code = 4.1 % 1.3-7.7 Platelet count 2410589102) measured by fluorescence method. NRBC/100 WBC (test See_Comment [Automat ed code = 8335740426) message] The system which generated this result transmitted reference range : 0.0 - 10.0 /100 WBCs. The refer ence range was not u sed to interpret th is result as normal/abnormal . NRBC x10^3 (test code <0.01 See_Comment [Auto mated = 2076381035) message] The s ystem which generated this result transmitted reference range : 10*3/?L. The reference range was not used to interpret this result as normal/abnormal . GRAN MAT (NEUT) % 70.6 % (test code = 770-8) IMM GRAN % (test code 1.00 % = 8839329883) LYMPH % (test code = 13.8 % 736-9) MONO % (test code = 14.4 % 5905-5) EOS % (test code = 0.0 % 713-8) BASO % (test code = 0.2 % 706-2) GRAN MAT x10^3(ANC) 4.40 10*3/uL 1.88-7.09 (test code = 5025121432) IMM GRAN x10^3 (test 0.06 10*3/uL 0-0.06 code = 8166243491) LYMPH x10^3 (test code 0.86 10*3/uL 1.32-3.29 L = 731-0) MONO x10^3 (test code 0.90 10*3/uL 0.33-0.92 = 742-7) EOS x10^3 (test code = <0.03 0.03-0.39 L 711-2) BASO x10^3 (test code <0.03 0.01-0.07 = 704-7) Lab Interpretation Abnormal (test code = 82105-3) [facility] CenterLactic Acid Whole [id number] 16:53:00 Test Item Value Reference Range Interpretation Comments LACTIC ACID (test code = 1.70 mmol/L 0.5-2.2 3834779273) Lab Interpretation (test code = Normal 88391-9) [facility]
[2021-10-05 10:49] LABS: Absolute Lymphocytes (CBC) 1.6 K/uL (0.7-4.9); Hematocrit 40.4 % (36.0-45.0); Lymphocytes % 16.9 % (15.3-44.8); MPV 8.8 fL (7.6-11.3); RBC Red Blood Cell Count 4.75 M/uL (3.86-4.86)
[2021-10-05] MEDS ORDERED: MAGNES/ALUMIN/SIMET 30ML UCUP ONE (10:53)
[2021-10-05] MEDS ORDERED: MORPHINE 4 MG/ML SYR ONE ×2 (10:53→13:26)
[2021-10-05] MEDS ORDERED: LIDOCAINE VISCOUS 2% SOLN 15 ML UDC ONE (10:54)
[2021-10-05] MEDS ORDERED: NA CHLORIDE 0.9% 1,000 ML ONE (10:54)
[2021-10-05] MEDS ORDERED: FAMOTIDINE 20 MG/2 ML VIAL IV ONE (10:54)
[2021-10-05] MEDS ORDERED: ONDANSETRON 4 MG/2 ML VIAL ONE ×2 (10:54→13:26)
[2021-10-05 11:07] LABS: Albumin 3.7 g/dL (3.4-5.0); Bilirubin Total 0.4 mg/dL (0.2-1.0)
--- NOTE | 2021-10-05 11:37 | RAD REPORT ---
EXAM DESCRIPTION: CTAbdomen Pelvis W Contrast - 10/05/2021 11:25 am CLINICAL HISTORY: Abdominal pain, acute, nonlocalized, neutropenic COMPARISON: CT-ABD PELVIS W/O CONTRAST dated 12/29/2018; Abdomen Pelvis W Contrast dated 9; Abdomen Pelvis W Contrast dated 12/02/2016; CT ABD PELVIS W CONTRAST dated 10/28/2014 TECHNIQUE: CT of the abdomen and pelvis was performed with contrast. All CT scans are performed using dose optimization technique as appropriate and may include automated exposure control or mA/KV adjustment according to patient size. FINDINGS: Lower chest: No acute abnormality. Liver: Cirrhosis. Several low-density liver lesions are noted which are unchanged and benign. Biliary: Similar extrahepatic biliary duct dilatation which may be related to the postcholecystectomy state. Stomach: No significant focal abnormality. Duodenum: No significant focal abnormality. Pancreas: No significant abnormality. Spleen: Mild splenomegaly. Adrenal: No suspicious lesions. Kidney/ureter: No hydronephrosis. No renal calculi. Retroperitoneum: No retroperitoneal adenopathy. 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 Bowel: No significant focal abnormality. Peritoneum: No ascites or free air. Bladder: Grossly unremarkable. Reproductive: No adnexal masses. Bones: No acute fracture. Trace anterolisthesis of L4 on L5. Mild degenerative disc disease at L5-S1. Other: n/a IMPRESSION: No acute intra-abdominal or pelvic finding. Multiple incidental findings as noted above.
[2021-10-05 11:43] LABS: Urine Blood Trace-intact (Negative); Urine Glucose Negative (Negative); Urine Protein Negative (Negative); Urine Specific Gravity 1.015 (1.005-1.030); Urine pH 7.5 (5.0-7.0)
--- NOTE | 2021-10-05 12:29 | ER ---
Nurse's Notes [facility] Name: Sheila Vila Age: 70 yrs Sex: Female : 1950 Arrival Date: 10/05/2021 Time: 10:15 Bed 19 Private MD: Diagnosis: Abdominal pain, Generalized Presentation: 10/05 10:17 Chief complaint: Patient states: Abd. pain with N/V, weakness, chills/sweats, FLORES, no ll1 appetite for 3-4 days. Coronavirus screen: Vaccine status: Patient reports receiving the 2nd dose of the covid vaccine. Client denies travel out of the [place] in the last 14 days. fatigue, headache, nausea, vomiting. Client presents with at least one sign or symptom that may indicate coronavirus-19. Standard/surgical mask placed on the client. Ebola Screen: Patient denies travel to an Ebola-affected area in the 21 days before illness onset. No acute neurological deficit is noted. Initial Sepsis Screen: Does the patient meet any 2 criteria? No. Patient's initial sepsis screen is negative. Does the patient have a suspected source of infection? Yes: Acute abdominal pain. Risk Assessment: Do you want to hurt yourself or someone else? Patient reports no desire to harm self or others. Onset of symptoms was October 02, 2021. 10:17 Method Of Arrival: Ambulatory ll1 10:17 Acuity: SYLVESTER 3 ll1 Triage Assessment: 10:26 General: Appears uncomfortable, ill, Behavior is cooperative, appropriate for age. ll1 Pain: Complains of pain in abdomen Pain currently is 9 out of 10 on a pain scale. Quality of pain is described as aching, throbbing. Neuro: Reports dizziness, headache weakness. GI: Reports lower abdominal pain, upper abdominal pain, cramping, nausea, vomiting. Stroke Activation: Symptom onset > 6 hours Physician: Stroke Attending; Name: ; Notified At: ; Arrived At: Physician: Chief Stroke Resident; Name: ; Notified At: ; Arrived At: Physician: Stroke Resident; Name: ; Notified At: ; Arrived At: Physician: ED Attending; Name: ; Notified At: ; Arrived At: Physician: ED Resident; Name: ; Notified At: ; Arrived At: 10:17 n/a ll1 Historical: - Allergies: 10:16 Darvocet-N 100; ll1 10:16 PENICILLINS; ll1 10:16 Propoxyphene; ll1 10:16 Toradol; ll1 - PMHx: 10:16 Diabetes - IDDM; Hepatitis; resolved; COPD; Hypertension; Cirrhosis; Asthma; ll1 Pancreatitis; Pneumonia; - Immunization history:: Client reports receiving the 2nd dose of the Covid vaccine. - Social history:: Smoking status: Patient denies any tobacco usage or history of. - Family history:: not pertinent. - Hospitalizations: : No recent hospitalization is reported. Screenin:30 Abuse screen: Denies threats or abuse. Denies injuries from another. Nutritional bp screening: No deficits noted. Tuberculosis screening: No symptoms or risk factors identified. Fall Risk None identified. Assessment: 10:30 VAN Scoring: Arm Drift: Patients demonstrates NO arm weakness. Patient is VAN Negative. bp The patient has not been NPO before screening. The patient is alert, and able to follow commands. The patient does not exhibit slurred or garbled speech. The patient is not exhibiting difficulty speaking. The patient does not exhibit difficulty understanding words. The patient is able to swallow own secretions with no drooling or need for suction. Patient tolerated one teaspoon of water. No drooling, immediate coughing, gurgling, or clearing of the throat was noted. The patient tolerated 90mL of water. No drooling, immediate coughing, gurgling, or clearing of the throat was noted. The patient passed the bedside swallow screening. Oral medications may be given as ordered. Contact Physician for further diet orders. Provider notified of bedside swallow screening results: Olamide Garcia MD. T-PA (Activase) Screening: Contraindications: Patient reports onset of signs and symptoms of stroke greater than 6 hours ago: Yes. Rapidly improving condition or minor deficit: Yes. General: SEE TRIAGE NOTE. 11:43 Reassessment: No changes from previously documented assessment. Patient and/or family bp updated on plan of care and expected duration. Pain level reassessed. PT RETURNED FROM CT. 13:30 Reassessment: PT D/C HOME AMBULATORY, DX WITH GENERAL ABDOMINAL PAIN. bp Vital Signs: 10:17 BP 150 / 92; Pulse 98; Resp 20; Temp 97.6; Pulse Ox 100% ; Weight 96.16 kg; Height 5 ll1 ft. 4 in. (162.56 cm); Pain 9/10; 11:43 BP 132 / 81; Pulse 78; Resp 16; Pulse Ox 100% ; bp 13:30 BP 126 / 79; Pulse 71; Resp 16; Pulse Ox 99% ; bp 10:17 Body Mass Index 36.39 (96.16 kg, 162.56 cm) ll1 NIH Stroke Scale Scores: 10:30 NIHSS Score: 0 bp ED Course: 10:15 Patient arrived in ED. mr 10:16 Arm band placed on Patient placed in an exam room, on a stretcher. ll1 10:20 Nette Lujan PA is PHCP. en 10:20 Olamide Garcia MD is Attending Physician. en 10:26 Triage completed. ll1 10:29 Ga Lovell, VIOLETTE is Primary Nurse. bp 10:30 Patient has correct armband on for positive identification. Bed in low position. Call bp light in reach. Side rails up X2. 10:44 Inserted saline lock: 20 gauge in left forearm, using aseptic technique. Blood bp collected. 10:54 COVID-19 SARS RT PCR (Document "Date of Onset" if Symptomatic) Sent. jw7 10:54 Flu Sent. jw7 11:27 CT Abd/Pelvis - IV Contrast Only In Process Unspecified. EDMS 11:42 Urine collected: clean catch specimen, clear. jw7 12:28 Duane Bal MD is Referral Physician. ma2 13:30 No provider procedures requiring assistance completed. IV discontinued, intact, bp bleeding controlled, No redness/swelling at site. Pressure dressing applied. Administered Medications: 10:58 Drug: NS 0.9% 1000 ml Route: IV; Rate: 1 bolus; Site: left forearm; bp 13:46 Follow up: IV Status: Completed infusion; IV Intake: 1000ml bp 10:58 Drug: Zofran (Ondansetron) 4 mg Route: IVP; Site: left forearm; bp 11:42 Follow up: Response: No adverse reaction bp 10:58 Drug: morphine 4 mg Route: IVP; Infused Over: 4 mins; Site: left forearm; bp 11:42 Follow up: Response: No adverse reaction; Pain is decreased bp 10:58 Drug: Pepcid (famotidine) 20 mg Route: IVP; Site: left forearm; bp 11:42 Follow up: Response: No adverse reaction bp 10:58 Drug: GI Cocktail without - (Maalox Suspension 30 ml, Lidocaine Liquid 2 % 15 bp ml) Route: PO; 11:42 Follow up: Response: No adverse reaction bp 13:30 Drug: morphine 4 mg Route: IVP; Infused Over: 4 mins; Site: left forearm; bp 13:30 Follow up: Response: No adverse reaction; Pain is decreased bp 13:30 Drug: Zofran (Ondansetron) 4 mg Route: IVP; Site: left forearm; bp 13:30 Follow up: Response: No adverse reaction bp Medication: 10:30 VIS not applicable for this client. bp Intake: 13:46 IV: 1000ml; Total: 1000ml. bp Outcome: 12:28 Discharge ordered by MD. martinez 13:30 Discharged to home ambulatory. bp 13:30 Condition: stable 13:30 Discharge instructions given to patient, Instructed on discharge instructions, follow up and referral plans. medication usage, Demonstrated understanding of instructions, follow-up care, medications, Prescriptions given X 3. 13:46 Patient left the ED. bp NIH Stroke Scale - NIH Stroke Score Date: 10/05/2021 Time: 10:30 Total Score = 0 1a. Level of Consciousness (LOC) - 0(Alert) 1b. Level of Consciousness (LOC) (Month \\T\\ Age) - 0(Both) 1c. LOC Commands (Open \\T\\ Closes Eyes/Head Of Science) - 0(Both) 2. Best Gaze (Lateral Gaze Paresis) - 0(Normal) 3. Visual Field Loss - 0(No visual loss) 4. Facial Palsy - 0(Normal) 5a. Left Arm: Motor (10-second hold) - 0(No drift) 5b. Right Arm: Motor (10-second hold) - 0(No drift) 6a. Left Leg: Motor (5-second hold - always test supine) - 0(No drift) 6b. Right Leg: Motor (5-second hold - always test supine) - 0(No drift) 7. Limb Ataxia (finger/nose \\T\\ heel/reilly - test with eyes open) - 0(Absent) 8. Sensory Loss (pinprick arms/legs/face) - 0(Normal) 9. Best Language: Aphasia (description/naming/reading) - 0(No aphasia) 10. Dysarthria (speech clarity - read or repeat words) - 0(Normal) 11. Extinction and Inattention (visual/tactile/auditory/spatial/personal) - 0(No abnormality) Initials: bp Signatures: Dispatcher [employer] Kimberly Elizondo Brian, RN RN bp Olamide Garcia MD MD ma2 Dimple Boyd RN RN ll1 Frida Shrestha7 Nette Lujan PA PA en
--- NOTE | 2021-10-05 12:29 | EDPHYS ---
Physician Documentation [facility] Name: Sheila Vila Age: 70 yrs Sex: Female : 1950 Arrival Date: 10/05/2021 Time: 10:15 Bed 19 Private MD: ED Physician Olamide Garcia HPI: 10/05 10:44 This 70 yrs old Black Female presents to ER via Ambulatory with complaints of Weakness, ma2 Dizziness, Nausea. 10:44 Onset: The symptoms/episode began/occurred gradually, 2 day(s) ago. Associated signs ma2 and symptoms: Pertinent negatives: dizziness, nausea, paresthesias, syncope, near-syncope, visual field changes, loss of vision. Severity of symptoms: At their worst the symptoms were moderate in the emergency department the symptoms are unchanged. The patient has experienced similar episodes in the past. Historical: - Allergies: 10:16 Darvocet-N 100; ll1 10:16 PENICILLINS; ll1 10:16 Propoxyphene; ll1 10:16 Toradol; ll1 - PMHx: 10:16 Diabetes - IDDM; Hepatitis; resolved; COPD; Hypertension; Cirrhosis; Asthma; ll1 Pancreatitis; Pneumonia; - Immunization history:: Client reports receiving the 2nd dose of the Covid vaccine. - Social history:: Smoking status: Patient denies any tobacco usage or history of. - Family history:: not pertinent. - Hospitalizations: : No recent hospitalization is reported. ROS: 10:44 Constitutional: Negative for fever, chills, and weight loss. ma2 10:44 All other systems are negative. Exam: 10:44 Constitutional: This is a well developed, well nourished patient who is awake, alert, ma2 and in no acute distress. Neck: Trachea midline, no thyromegaly or masses palpated, and no cervical lymphadenopathy. Supple, full range of motion without nuchal rigidity, or vertebral point tenderness. No Meningismus. Chest/axilla: Normal chest wall appearance and motion. Nontender with no deformity. No lesions are appreciated. Cardiovascular: Regular rate and rhythm with a normal S1 and S2. No gallops, murmurs, or rubs. Normal PMI, no JVD. No pulse deficits. Respiratory: Lungs have equal breath sounds bilaterally, clear to auscultation and percussion. No rales, rhonchi or wheezes noted. No increased work of breathing, no retractions or nasal flaring. Abdomen/GI: Soft, non-tender, with normal bowel sounds. No distension or tympany. No guarding or rebound. No evidence of tenderness throughout. MS/ Extremity: Pulses equal, no cyanosis. Neurovascular intact. Full, normal range of motion. Neuro: Awake and alert, GCS 15, oriented to person, place, time, and situation. Cranial nerves II-XII grossly intact. Motor strength 5/5 in all extremities. Sensory grossly intact. Cerebellar exam normal. Normal gait. Vital Signs: 10:17 BP 150 / 92; Pulse 98; Resp 20; Temp 97.6; Pulse Ox 100% ; Weight 96.16 kg; Height 5 ll1 ft. 4 in. (162.56 cm); Pain 9/10; 11:43 BP 132 / 81; Pulse 78; Resp 16; Pulse Ox 100% ; bp 13:30 BP 126 / 79; Pulse 71; Resp 16; Pulse Ox 99% ; bp 10:17 Body Mass Index 36.39 (96.16 kg, 162.56 cm) ll1 NIH Stroke Scale Scores: 10:30 NIHSS Score: 0 bp MDM: 10:43 Patient medically screened. ct2 12:27 Data reviewed: vital signs, nurses notes. Counseling: I had a detailed discussion with ma2 the patient and/or guardian regarding: the historical points, exam findings, and any diagnostic results supporting the discharge/admit diagnosis, the presence of at least one elevated blood pressure reading (>120/80) during this emergency department visit, the need for outpatient follow up. Response to treatment: the patient's symptoms have markedly improved after treatment. ED course: Is improved, CT abdomen shows no acute finding, incidentally there is extrahepatic duct dilatation s/p cholecystectomy, this finding were seen on prior CTs and unchanged at this time, lab work otherwise unremarkable including normal t bili and d bili. 10/05 10:35 Order name: CBC with Diff; Complete Time: 12:26 bp 10/05 10:35 Order name: CMP; Complete Time: 12:26 bp 10/05 10:35 Order name: Lipase; Complete Time: 12:26 bp 10/05 10:35 Order name: COVID-19 SARS RT PCR (Document "Date of Onset" if Symptomatic); Complete bp Time: 12:26 10/05 10:35 Order name: Flu; Complete Time: 12:26 bp 10/05 11:43 Order name: Urine Dipstick-Ancillary; Complete Time: 12:26 EDMS 10/05 10:44 Order name: CT Abd/Pelvis - IV Contrast Only; Complete Time: 12:26 ma2 10/05 10:35 Order name: IV Saline Lock; Complete Time: 10:44 bp 10/05 10:35 Order name: Labs collected and sent; Complete Time: 10:44 bp 10/05 10:44 Order name: Urine Dipstick-Ancillary (obtain specimen); Complete Time: 11:43 ma2 Administered Medications: 10:58 Drug: NS 0.9% 1000 ml Route: IV; Rate: 1 bolus; Site: left forearm; bp 13:46 Follow up: IV Status: Completed infusion; IV Intake: 1000ml bp 10:58 Drug: Zofran (Ondansetron) 4 mg Route: IVP; Site: left forearm; bp 11:42 Follow up: Response: No adverse reaction bp 10:58 Drug: morphine 4 mg Route: IVP; Infused Over: 4 mins; Site: left forearm; bp 11:42 Follow up: Response: No adverse reaction; Pain is decreased bp 10:58 Drug: Pepcid (famotidine) 20 mg Route: IVP; Site: left forearm; bp 11:42 Follow up: Response: No adverse reaction bp 10:58 Drug: GI Cocktail without - (Maalox Suspension 30 ml, Lidocaine Liquid 2 % 15 bp ml) Route: PO; 11:42 Follow up: Response: No adverse reaction bp 13:30 Drug: morphine 4 mg Route: IVP; Infused Over: 4 mins; Site: left forearm; bp 13:30 Follow up: Response: No adverse reaction; Pain is decreased bp 13:30 Drug: Zofran (Ondansetron) 4 mg Route: IVP; Site: left forearm; bp 13:30 Follow up: Response: No adverse reaction bp Disposition Summary: 10/05/21 12:28 Discharge Ordered Location: Home ma2 Condition: Stable ma2 Diagnosis - Abdominal pain, Generalized ma2 Followup: ma2 - With: Duane Bal MD - When: Tomorrow - Reason: If symptoms return, Continuance of care Discharge Instructions: - Discharge Summary Sheet ma2 - Abdominal Pain, Adult ma2 Forms: - Medication Reconciliation Form ma2 - Thank You Letter ma2 - Antibiotic Education ma2 - Prescription Opioid Use ma2 Prescriptions: - Zofran 4 mg Oral Tablet - take 1 tablet by ORAL route every 12 hours As needed; 20 tablet; Refills: 0, ma2 Product Selection Permitted - Diclofenac Sodium 75 mg Oral Tablet Sustained Release - take 1 tablet by ORAL route 2 times per day; 30 tablet; Refills: 0, Product ma2 Selection Permitted - Pepcid 20 mg Oral Tablet - take 1 tablet by ORAL route once daily for 10 days; 10 tablet; Refills: 0, ma2 Product Selection Permitted NIH Stroke Scale - NIH Stroke Score Date: 10/05/2021 Time: 10:30 Total Score = 0 1a. Level of Consciousness (LOC) - 0(Alert) 1b. Level of Consciousness (LOC) (Month \\T\\ Age) - 0(Both) 1c. LOC Commands (Open \\T\\ Closes Eyes/Scrap Handler) - 0(Both) 2. Best Gaze (Lateral Gaze Paresis) - 0(Normal) 3. Visual Field Loss - 0(No visual loss) 4. Facial Palsy - 0(Normal) 5a. Left Arm: Motor (10-second hold) - 0(No drift) 5b. Right Arm: Motor (10-second hold) - 0(No drift) 6a. Left Leg: Motor (5-second hold - always test supine) - 0(No drift) 6b. Right Leg: Motor (5-second hold - always test supine) - 0(No drift) 7. Limb Ataxia (finger/nose \\T\\ heel/reilly - test with eyes open) - 0(Absent) 8. Sensory Loss (pinprick arms/legs/face) - 0(Normal) 9. Best Language: Aphasia (description/naming/reading) - 0(No aphasia) 10. Dysarthria (speech clarity - read or repeat words) - 0(Normal) 11. Extinction and Inattention (visual/tactile/auditory/spatial/personal) - 0(No abnormality) Initials: bp Signatures: Dispatcher [employer] EDaG Almodovar RN RN bp Olamide Garcia MD MD ma2 Dimple Boyd RN RN 1
[2021-10-05 14:12] VITALS: TEMP 97.6
[2021-10-05 14:20] VITALS: BP 126/79; O2SAT 99
== END 2021-10-05 13:46 | disposition home or self-care (01) ==
LOC: ER 10:13
DX: R10.84 Generalized abdominal pain (principal); R11.2 Nausea with vomiting, unspecified; R53.1 Weakness; E11.9 Type 2 diabetes mellitus without complications; I10 Essential (primary) hypertension; Z20.822 Contact with and (suspected) exposure to COVID-19; Z88.0 Allergy status to penicillin; Z88.5 Allergy status to narcotic agent; Z88.8 Allergy status to other drugs, medicaments and biological substances
CPT/HCPCS: 85025; 36415; 81003; 83690; 80053; 87804 ×2; 74177; U0003; Q9967; J7030; J2405 ×2; J3490; 96361; 96374; 96375; 99284

== ENCOUNTER 2022-02-03 10:24 | Observation (INO) | payer OTHER ==
--- OUTSIDE RECORDS SUMMARY | 2022-02-03 10:36 | XMS REPORT | Continuity of Care Document ---
:1950 Author Organization [facility] t Address [address] [place] [address] Care Team Providers Name Role Phone RUBY SAMUELS Primary Care Physician Unavailable Erika OAKES, Mihir Grant Attending Clinician Unavailable Leonarda Nava DO Attending Clinician Carlitos Ware MD Attending Clinician CARLITOS WARE Attending Clinician Unavailable Doctor Unassigned, [place] Attending Clinician Unavailable Carlitos Ware MD Admitting Clinician CARLITOS WARE Admitting Clinician Unavailable Payers Payer Name Policy Type Policy Number Effective Date Expiration Date S ource Problems Condition Condition Condition Status Onset Resolution Last Treating Co mments Source Name Details Category Date Date Treatment Clinician Date Pneumonia Pneumonia Disease Active Uni vers due to due to 2-23 ity of COVID-19 COVID-19 00:00: [place] virus virus 00 Medical Branch Obesity Obesity Disease Active Univers (BMI (BMI 7-10 ity of 30-39.9) 30-39.9) 00:00: [place] 00 Medical Branch Allergies, Adverse Reactions, Alerts Allergy Allergy Status Severity Reaction(s) Onset Inactive Treating Comm ents Source Name Type Date Date Clinician Penicill Propensi Active ins ty to 4-08 adverse 00:00: reaction 00 to drug Propoxyp Propensi Active Nausea Univer s hene ty to and/or 12-17 ity of N-Acetam adverse Vomiting 00:00: [place] inophen reaction 00 Medical s Branch Penicill Propensi Active Rash Univer s ins ty to 12-17 ity of adverse 00:00: [place] reaction Medical s Branch Ketorola Propensi Active Rash Univer s c ty to 12-17 ity of adverse 00:00: [place] reaction Medical s Branch PROPOXYP DRUG Active N/V Univers HENE 12-17 ity of N-ACETAM 00:00: [place] INOPHEN 00 Medical Branch PENICILL Drug Active Rash Univers INS Class 12-17 ity of 00:00: [place] [facility] KETOROLA DRUG Active ITCHING Univers C INGREDI 12-17 ity of 00:00: [place] 00 Medical Branch Social History Social Habit Start Date Stop Date Quantity Comments Source [facility] Exposure to Not sure [facility] SARS-CoV-2 [facility] (event) Branch Alcohol intake 2020-06-11 2020-06-11 Current [facility] 00:00:00 00:00:00 non-drinker of [facility] alcohol Branch (finding) Tobacco use and 2020-06-11 2020-06-11 Never used Universit y of exposure 00:00:00 00:00:00 [facility] Smoking Status Start Date Stop Date Source Never smoker [facility] Medications Ordered Filled Start Stop Current Ordering Indication Dosage Frequency Signature Comments Components Source Medication Medication Date Date Medication? Clinician (SIG) Name Name PANTOPRAZOL No E SODIUM 9-28 40MG TAB 00:00: 00 INJECT 2021-0 No UNITS BELOW 9-27 THE SKIN 00:00: THREE TIMES 00 A DAY PER SLIDING SCALE (MAX DOSE 25 UNITS). TAKE ONE 2021-0 No (1) 9-16 TABLET(S) 00:00: BY MOUTH 00 ONCE A DAY. USE 1 VIAL 2021-0 No [id number] IN 12-03 NEBULIZER 00:00: EVERY 6 00 HOURS NEEDED. USE 1 VIAL 2021-0 No [id number] IN 12-03 NEBULIZER 00:00: EVERY 6 00 HOURS NEEDED. USE 1 VIAL 2-0 No IN 12-03 NEBULIZER 00:00: EVERY 6 00 HOURS NEEDED. TAKE ONE 2022-0 No 2 (1) 8-16 TABLET(S) 00:00: BY MOUTH 00 ONCE A DAY. INHALE TWO 2022-0 No (2) PUFF(S) 8-16 BY MOUTH 00:00: DAILY. 00 TAKE ONE 2022-0 No 2 (1) 8-16 TABLET(S) 00:00: BY MOUTH 00 ONCE A DAY. INHALE TWO 2022-0 No (2) PUFF(S) 8-16 BY MOUTH 00:00: DAILY. 00 TAKE ONE 2022-0 No 2 (1) 8-16 TABLET(S) 00:00: BY MOUTH 00 ONCE A DAY. INHALE TWO 2022-0 No (2) PUFF(S) 8-16 BY MOUTH 00:00: DAILY. 00 Dose 2-0 No 100 Unknown 11-14 00:00: 00 Dose 2022-0 No 100 Unknown 11-14 00:00: 00 Dose 2022-0 No 100 Unknown 11-14 00:00: 00 estradiol 1 2021-0 No 1mg mg tablet 10-29 00:00: 00 Dose 2022-0 No 4 Unknown 10-29 00:00: 00 INHALE TWO 2-0 No (2) PUFF(S) 13 BY MOUTH 00:00: DAILY. 00 TAKE 1 2021-0 No 75 TABLET BY 10-29 MOUTH TWICE 00:00: A DAY 00 INJECT 2022-0 No UNDER THE - SKIN THREE 00:00: TIMES A DAY 00 DIRECTED PER SLIDING SCALE. MAX DOSE 25 UNITS. &lt 2021-0 No 40 10-29 00:00: 00 estradiol 1 2-0 No 1mg mg tablet 10-29 00:00: 00 Dose 2-0 No 4 Unknown 10-29 00:00: 00 INHALE TWO 2-0 No (2) PUFF(S) 13 BY MOUTH 00:00: DAILY. 00 TAKE 1 2021-0 No 75 TABLET BY 10-29 MOUTH TWICE 00:00: A DAY 00 INJECT 2022-0 No UNDER THE 7-13 SKIN THREE 00:00: TIMES A DAY 00 DIRECTED PER SLIDING SCALE. MAX DOSE 25 UNITS. &lt 2-0 No 40 10-29 00:00: 00 estradiol 1 2-0 No 1mg mg tablet 10-29 00:00: 00 Dose 2022-0 No 4 Unknown 7 00:00: 00 INHALE TWO 2-0 No (2) PUFF(S) 7-13 BY MOUTH 00:00: DAILY. 00 TAKE 1 2-0 No 75 TABLET BY 7-13 MOUTH TWICE 00:00: A DAY 00 INJECT 2022-0 No UNDER THE 7-13 SKIN THREE 00:00: TIMES A DAY 00 DIRECTED PER SLIDING SCALE. MAX DOSE 25 UNITS. &lt 2022-0 No 40 7-13 00:00: 00 quetiapine 2022-0 No 2mg 400 mg 6-23 tablet 00:00: 00 estradiol 1 2-0 No 1mg mg tablet 10-09 00:00: 00 &lt 2022-0 No 6-23 00:00: 00 &lt 2022-0 No 6-23 00:00: 00 quetiapine 2022-0 No 2mg 400 mg 6-23 tablet 00:00: 00 estradiol 1 2-0 No 1mg mg tablet 10-09 00:00: 00 &lt 2022-0 No 6-23 00:00: 00 &lt 2022-0 No 6-23 00:00: 00 quetiapine 2022-0 No 2mg 400 mg 6-23 tablet 00:00: 00 estradiol 1 2-0 No 1mg mg tablet 10-09 00:00: 00 &lt 2022-0 No 6-23 00:00: 00 &lt 2022-0 No 6-23 00:00: 00 &lt 2022-0 No 6-07 00:00: 00 &lt 2022-0 No 6-07 00:00: 00 &lt 2022-0 No 6-07 00:00: 00 levofloxaci 2022-0 No 1mg n 500 mg 5-17 tablet 00:00: 00 terbinafine 2022-0 No mg HCl 250 mg 5-17 tablet 00:00: 00 ketorolac 2022-0 No 1mg 10 mg 5-17 tablet 00:00: 00 doxycycline 2022-0 No 1mg monohydrate 5-17 100 mg 00:00: capsule 00 levofloxaci 2022-0 No 1mg n 500 mg 5-17 tablet 00:00: 00 terbinafine 2022-0 No mg HCl 250 mg 5-17 tablet 00:00: 00 ketorolac 2022-0 No 1mg 10 mg 5-17 tablet 00:00: 00 doxycycline 2022-0 No 1mg monohydrate 5-17 100 mg 00:00: capsule 00 levofloxaci 2022-0 No 1mg n 500 mg 5-17 tablet 00:00: 00 terbinafine 2022-0 No mg HCl 250 mg 5-17 tablet 00:00: 00 ketorolac 2022-0 No 1mg 10 mg 5-17 tablet 00:00: 00 doxycycline 2022-0 No 1mg monohydrate 5-17 100 mg 00:00: capsule 00 levofloxaci 2022-0 No 1mg n 500 mg 5-03 tablet 00:00: 00 ketorolac 2022-0 No 1mg 10 mg 5-03 tablet 00:00: 00 doxycycline 2022-0 No 1mg monohydrate 5-03 100 mg 00:00: capsule 00 levofloxaci 2022-0 No 1mg n 500 mg 5-03 tablet 00:00: 00 ketorolac 2022-0 No 1mg 10 mg 5-03 tablet 00:00: 00 doxycycline 2022-0 No 1mg monohydrate 5-03 100 mg 00:00: capsule 00 levofloxaci 2022-0 No 1mg n 500 mg 5-03 tablet 00:00: 00 ketorolac 2022-0 No 1mg 10 mg 5-03 tablet 00:00: 00 doxycycline 2022-0 No 1mg monohydrate 5-03 100 mg 00:00: capsule 00 Dose 2022-0 No Unknown 4-27 00:00: 00 Dose 2022-0 No Unknown 4-27 00:00: 00 Dose 2022-0 No Unknown 4-27 00:00: 00 Dose 2022-0 No Unknown 4-27 00:00: 00 Dose 2022-0 No Unknown 4-27 00:00: 00 Dose 2022-0 No Unknown 4-27 00:00: 00 Dose 2022-0 No Unknown 4-27 00:00: 00 Dose 2022-0 No Unknown 4-27 00:00: 00 Dose 2022-0 No Unknown 4-27 00:00: 00 Dose 2022-0 No Unknown 4-27 00:00: 00 Dose 2022-0 No Unknown 4-27 00:00: 00 Dose 2022-0 No Unknown 4-27 00:00: 00 Dose 2022-0 No Unknown 4-27 00:00: 00 Dose 2022-0 No Unknown 4-27 00:00: 00 Dose 2022-0 No Unknown 4-27 00:00: 00 levofloxaci 2022-0 No 1mg n 500 mg 4-26 tablet 00:00: 00 promethazin 2022-0 No 1mg e 25 mg 4-26 tablet 00:00: 00 Dose 2022-0 No Unknown 4-26 00:00: 00 doxycycline 2022-0 No 1mg monohydrate 4-26 100 mg 00:00: capsule 00 Dose 2022-0 No Unknown 4-26 00:00: 00 Dose 2022-0 No Unknown 4-26 00:00: 00 Dose 2022-0 No Unknown 4-26 00:00: 00 Dose 2022-0 No Unknown 4-26 00:00: 00 Dose 2022-0 No Unknown 4-26 00:00: 00 Dose 2022-0 No Unknown 4-26 00:00: 00 Dose 2022-0 No Unknown 4-26 00:00: 00 Dose 2022-0 No Unknown 4-26 00:00: 00 Dose 2022-0 No Unknown 4-26 00:00: 00 Dose 2022-0 No Unknown 4-26 00:00: 00 Dose 2022-0 No Unknown 4-26 00:00: 00 Dose 2022-0 No Unknown 4-26 00:00: 00 Dose 2022-0 No Unknown 4-26 00:00: 00 Dose 2022-0 No Unknown 4-26 00:00: 00 Dose 2022-0 No Unknown 4-26 00:00: 00 Dose 2022-0 No Unknown 4-26 00:00: 00 levofloxaci 2022-0 No 1mg n 500 mg 4-26 tablet 00:00: 00 promethazin 2022-0 No 1mg e 25 mg 4-26 tablet 00:00: 00 Dose 2022-0 No Unknown 4-26 00:00: 00 doxycycline 2022-0 No 1mg monohydrate 4-26 100 mg 00:00: capsule 00 Dose 2022-0 No Unknown 4-26 00:00: 00 Dose 2022-0 No Unknown 4-26 00:00: 00 Dose 2022-0 No Unknown 4-26 00:00: 00 Dose 2022-0 No Unknown 4-26 00:00: 00 Dose 2022-0 No Unknown 4-26 00:00: 00 Dose 2022-0 No Unknown 4-26 00:00: 00 Dose 2022-0 No Unknown 4- 00:00: 00 Dose 2022-0 No Unknown 4- 00:00: 00 Dose 2022-0 No Unknown 4- 00:00: 00 Dose 2022-0 No Unknown 4- 00:00: 00 Dose 2022-0 No Unknown 4- 00:00: 00 Dose 2022-0 No Unknown 4- 00:00: 00 Dose 2022-0 No Unknown 4- 00:00: 00 Dose 2022-0 No Unknown 4- 00:00: 00 Dose 2022-0 No Unknown 4- 00:00: 00 Dose 2022-0 No Unknown 4- 00:00: 00 levofloxaci 2022-0 No 1mg n 500 mg 4-26 tablet 00:00: 00 promethazin 2-0 No 1mg e 25 mg 4-26 tablet 00:00: 00 Dose 2022-0 No Unknown 4- 00:00: 00 doxycycline 2022-0 No 1mg monohydrate 4-26 100 mg 00:00: capsule 00 Dose 2022-0 No Unknown 4- 00:00: 00 Dose 2022-0 No Unknown 4- 00:00: 00 Dose 2022-0 No Unknown 4- 00:00: 00 Dose 2022-0 No Unknown 4- 00:00: 00 Dose 2022-0 No Unknown 4- 00:00: 00 Dose 2022-0 No Unknown 4-26 00:00: 00 Dose 2022-0 No Unknown 4-26 00:00: 00 Dose 2022-0 No Unknown 4-26 00:00: 00 Dose 2022-0 No Unknown 4-26 00:00: 00 Dose 2022-0 No Unknown 4-26 00:00: 00 Dose 2022-0 No Unknown 4-26 00:00: 00 Dose 2022-0 No Unknown 4- 00:00: 00 Dose 2022-0 No Unknown 4-26 00:00: 00 Dose 2022-0 No Unknown 4-26 00:00: 00 Dose 2022-0 No Unknown 4-26 00:00: 00 Dose 2022-0 No Unknown 4-26 00:00: 00 indomethaci 2022-0 No 1mg n ER 75 mg 4-23 capsule,ext 00:00: ended 00 release indomethaci 2022-0 No 1mg n ER 75 mg 4-23 capsule,ext 00:00: ended 00 release indomethaci 2022-0 No 1mg n ER 75 mg 4-23 capsule,ext 00:00: ended 00 release Dose 2022-0 No Unknown 4-19 00:00: 00 Dose 2022-0 No Unknown 4-19 00:00: 00 ondansetron 2-0 No 1mg 4 mg 4-19 disintegrat 00:00: ing tablet 00 Dose 2-0 No Unknown 4-19 00:00: 00 Dose 2022-0 No Unknown 4-19 00:00: 00 Dose 2022-0 No Unknown 4-19 00:00: 00 Dose 2022-0 No Unknown 4-19 00:00: 00 Dose 2022-0 No Unknown 4-19 00:00: 00 ondansetron 2-0 No 1mg 4 mg 4-19 disintegrat 00:00: ing tablet 00 Dose 2-0 No Unknown 4-19 00:00: 00 Dose 2022-0 No Unknown 4-19 00:00: 00 Dose 2022-0 No Unknown 4-19 00:00: 00 Dose 2022-0 No Unknown 4-19 00:00: 00 Dose 2022-0 No Unknown 4-19 00:00: 00 ondansetron 2-0 No 1mg 4 mg 4-19 disintegrat 00:00: ing tablet 00 Dose 2-0 No Unknown 4-19 00:00: 00 Dose 2022-0 No Unknown 4-19 00:00: 00 Dose 2022-0 No Unknown 4-19 00:00: 00 Dose 2022-0 No Unknown 4-13 00:00: 00 Dose 2022-0 No Unknown 4-13 00:00: 00 Dose 2022-0 No Unknown 4-13 00:00: 00 Dose 2022-0 No Unknown 4-13 00:00: 00 Dose 2022-0 No Unknown 4-13 00:00: 00 Dose 2022-0 No Unknown 4-13 00:00: 00 Dose 2022-0 No Unknown 4-13 00:00: 00 Dose 2022-0 No Unknown 4-13 00:00: 00 Dose 2022-0 No Unknown 4-13 00:00: 00 Dose 2022-0 No Unknown 4-13 00:00: 00 Dose 2022-0 No Unknown 4-13 00:00: 00 Dose 2022-0 No Unknown 4-13 00:00: 00 Dose 2022-0 No Unknown 4-13 00:00: 00 Dose 2022-0 No Unknown 4-13 00:00: 00 Dose 2022-0 No Unknown 4-13 00:00: 00 Dose 2022-0 No Unknown 4-13 00:00: 00 Dose 2022-0 No Unknown 4-13 00:00: 00 Dose 2022-0 No Unknown 4-13 00:00: 00 Dose 2022-0 No Unknown 4-12 00:00: 00 Dose 2022-0 No Unknown 4-12 00:00: 00 Dose 2022-0 No Unknown 4-12 00:00: 00 Dose 2022-0 No Unknown 4-12 00:00: 00 Dose 2022-0 No Unknown 4-12 00:00: 00 Dose 2022-0 No Unknown 4-12 00:00: 00 Dose 2022-0 No Unknown 4-12 00:00: 00 Dose 2022-0 No Unknown 4-12 00:00: 00 Dose 2022-0 No Unknown 4-12 00:00: 00 Dose 2022-0 No Unknown 4-12 00:00: 00 Dose 2022-0 No Unknown 4-12 00:00: 00 Dose 2022-0 No Unknown 4-12 00:00: 00 Dose 2022-0 No Unknown 4-12 00:00: 00 Dose 2022-0 No Unknown 4-12 00:00: 00 Dose 2022-0 No Unknown 4-12 00:00: 00 Dose 2022-0 No Unknown 4-12 00:00: 00 Dose 2022-0 No Unknown 4-12 00:00: 00 Dose 2022-0 No Unknown 4-12 00:00: 00 Dose 2022-0 No Unknown 4-12 00:00: 00 Dose 2022-0 No Unknown 4-12 00:00: 00 Dose 2022-0 No Unknown 4-12 00:00: 00 Dose 2022-0 No Unknown 4-12 00:00: 00 Dose 2022-0 No Unknown 4-12 00:00: 00 Dose 2022-0 No Unknown 4-12 00:00: 00 Dose 2022-0 No Unknown 4-12 00:00: 00 Dose 2022-0 No Unknown 4-12 00:00: 00 Dose 2022-0 No Unknown 4-12 00:00: 00 Dose 2022-0 No Unknown 4-12 00:00: 00 Dose 2022-0 No Unknown 4-12 00:00: 00 Dose 2022-0 No Unknown 4-12 00:00: 00 Dose 2022-0 No Unknown 4-12 00:00: 00 Dose 2022-0 No Unknown 4-12 00:00: 00 Dose 2022-0 No Unknown 4-12 00:00: 00 Dose 2022-0 No Unknown 4-12 00:00: 00 Dose 2022-0 No Unknown 4-12 00:00: 00 Dose 2022-0 No Unknown 4-12 00:00: 00 Dose 2022-0 No Unknown 4-12 00:00: 00 Dose 2022-0 No Unknown 4-12 00:00: 00 Dose 2022-0 No Unknown 4-12 00:00: 00 Dose 2022-0 No Unknown 4-12 00:00: 00 Dose 2022-0 No Unknown 4-12 00:00: 00 Dose 2022-0 No Unknown 4-12 00:00: 00 Dose 2022-0 No Unknown 4-12 00:00: 00 Dose 2022-0 No Unknown 4-12 00:00: 00 Dose 2022-0 No Unknown 4-12 00:00: 00 Dose 2022-0 No Unknown 4-12 00:00: 00 Dose 2022-0 No Unknown 4-12 00:00: 00 Dose 2022-0 No Unknown 4-12 00:00: 00 Dose 2022-0 No Unknown 4-12 00:00: 00 Dose 2022-0 No Unknown 4-12 00:00: 00 Dose 2022-0 No Unknown 4-12 00:00: 00 Dose 2022-0 No Unknown 4-12 00:00: 00 Dose 2022-0 No Unknown 4-12 00:00: 00 Dose 2022-0 No Unknown 4-12 00:00: 00 Dose 2022-0 No Unknown 4-12 00:00: 00 Dose 2022-0 No Unknown 4-12 00:00: 00 Dose 2022-0 No Unknown 4-12 00:00: 00 Dose 2022-0 No Unknown 4-12 00:00: 00 Dose 2022-0 No Unknown 4-12 00:00: 00 Dose 2022-0 No Unknown 4-12 00:00: 00 Dose 2022-0 No Unknown 4-12 00:00: 00 Dose 2022-0 No Unknown 4-12 00:00: 00 Dose 2022-0 No Unknown 4-12 00:00: 00 Dose 2022-0 No Unknown 4-12 00:00: 00 Dose 2022-0 No Unknown 4-12 00:00: 00 Dose 2022-0 No Unknown 4-12 00:00: 00 Dose 2022-0 No Unknown 4-12 00:00: 00 Dose 2022-0 No Unknown 4-12 00:00: 00 Dose 2022-0 No Unknown 4-12 00:00: 00 Dose 2022-0 No Unknown 4-12 00:00: 00 Dose 2022-0 No Unknown 4-12 00:00: 00 Dose 2022-0 No Unknown 4-12 00:00: 00 Dose 2022-0 No Unknown 4-12 00:00: 00 Dose 2022-0 No Unknown 4-12 00:00: 00 Dose 2022-0 No Unknown 4-12 00:00: 00 Dose 2022-0 No Unknown 4-12 00:00: 00 Dose 2022-0 No Unknown 4-12 00:00: 00 Dose 2022-0 No Unknown 4-12 00:00: 00 Dose 2022-0 No Unknown 4-12 00:00: 00 Dose 2022-0 No Unknown 4-12 00:00: 00 Dose 2022-0 No Unknown 4-12 00:00: 00 Dose 2022-0 No Unknown 4-12 00:00: 00 Dose 2022-0 No Unknown 4-12 00:00: 00 Dose 2022-0 No Unknown 4-12 00:00: 00 Dose 2022-0 No Unknown 4-12 00:00: 00 Dose 2022-0 No Unknown 4-12 00:00: 00 Dose 2022-0 No Unknown 4-12 00:00: 00 Dose 2022-0 No Unknown 4-12 00:00: 00 Dose 2022-0 No Unknown 4-12 00:00: 00 Dose 2022-0 No Unknown 4-12 00:00: 00 Dose 2022-0 No Unknown 4-12 00:00: 00 Dose 2022-0 No Unknown 4-12 00:00: 00 Dose 2022-0 No Unknown 4-12 00:00: 00 Dose 2022-0 No Unknown 4-12 00:00: 00 Dose 2022-0 No Unknown 4-12 00:00: 00 Dose 2022-0 No Unknown 4-12 00:00: 00 Dose 2022-0 No Unknown 4-12 00:00: 00 Dose 2022-0 No Unknown 4-12 00:00: 00 Dose 2022-0 No Unknown 4-12 00:00: 00 Dose 2022-0 No Unknown 4-12 00:00: 00 Dose 2022-0 No Unknown 4-12 00:00: 00 Dose 2022-0 No Unknown 4-12 00:00: 00 Dose 2022-0 No Unknown 4-12 00:00: 00 Dose 2022-0 No Unknown 4-12 00:00: 00 Dose 2022-0 No Unknown 4-12 00:00: 00 Dose 2022-0 No Unknown 4-12 00:00: 00 Dose 2022-0 No Unknown 4-12 00:00: 00 Dose 2022-0 No Unknown 4-12 00:00: 00 Dose 2022-0 No Unknown 4-12 00:00: 00 Dose 2022-0 No Unknown 4-12 00:00: 00 Dose 2022-0 No Unknown 4-12 00:00: 00 Dose 2022-0 No Unknown 4-12 00:00: 00 Dose 2022-0 No Unknown 4-12 00:00: 00 Dose 2022-0 No Unknown 4-12 00:00: 00 Dose 2022-0 No Unknown 4-12 00:00: 00 Dose 2022-0 No Unknown 4-12 00:00: 00 Dose 2022-0 No Unknown 4-12 00:00: 00 Dose 2022-0 No Unknown 4-12 00:00: 00 Dose 2022-0 No Unknown 4-12 00:00: 00 Dose 2022-0 No Unknown 4-12 00:00: 00 Dose 2022-0 No Unknown 4-12 00:00: 00 Dose 2022-0 No Unknown 4-12 00:00: 00 Dose 2022-0 No Unknown 4-12 00:00: 00 Dose 2-0 No Unknown 4-12 00:00: 00 Dose 2-0 No Unknown 4-12 00:00: 00 Dose 2-0 No Unknown 4-12 00:00: 00 Dose 2-0 No Unknown 4-12 00:00: 00 Dose 2-0 No Unknown 4-12 00:00: 00 Dose 2-0 No Unknown 4-12 00:00: 00 Dose 2-0 No Unknown 4-12 00:00: 00 Dose 2-0 No Unknown 4-12 00:00: 00 Victoza 2021-0 No (18 2-Abhay 0.6 4-12 mg/3 mg/0.1 mL 00:00: mL) (18 mg/3 00 mL) subcutaneou s pen injector Tresiba 2021-0 No (3 mL) FlexTouch 4-12 U-200 00:00: insulin 200 00 unit/mL (3 mL) subcutaneou s pen Novolog 2021-0 No (3 mL) Flexpen 4-12 U-100 00:00: Insulin 00 aspart 100 unit/mL (3 mL) subcutaneou s mupirocin 2 2021-0 No 1% % topical 4-12 ointment 00:00: 00 montelukast 2-0 No 1mg 10 mg 4-12 tablet 00:00: 00 clonidine 2-0 No 1mg HCl 0.2 mg 4-12 tablet 00:00: 00 quetiapine 2-0 No 2mg 400 mg 4-12 tablet 00:00: 00 pantoprazol 2-0 No 1mg e 40 mg 4-12 tablet,mellisa 00:00: yed release 00 metoclopram 2-0 No 1mg chrissy 10 mg 4-12 tablet 00:00: 00 buspirone 2-0 No 1mg 30 mg 4-12 tablet 00:00: 00 amitriptyli 2-0 No 1mg ne 50 mg 4-12 tablet 00:00: 00 hydroxyzine 2-0 No 1mg HCl 50 mg 4-12 tablet 00:00: 00 Combivent 2-0 No 2mcg/ac Respimat 20 4-12 tuation mcg-100 00:00: mcg/actuati 00 on solution for inhalation duloxetine 2-0 No 1mg 30 mg 4-12 capsule,del 00:00: ayed 00 release Dose 2022-0 No Unknown 4-12 00:00: 00 gabapentin 2022-0 No 1mg 400 mg 4-12 capsule 00:00: 00 Dose 2022-0 No Unknown 4-12 00:00: 00 Dose 2022-0 No Unknown 4-12 00:00: 00 Dose 2022-0 No Unknown 4-12 00:00: 00 Dose 2022-0 No Unknown 4-12 00:00: 00 Dose 2022-0 No Unknown 4-12 00:00: 00 Dose 2022-0 No Unknown 4-12 00:00: 00 Dose 2022-0 No Unknown 4-12 00:00: 00 Dose 2022-0 No Unknown 4-12 00:00: 00 Dose 2022-0 No Unknown 4-12 00:00: 00 Dose 2022-0 No Unknown 4-12 00:00: 00 Dose 2022-0 No Unknown 4-12 00:00: 00 Dose 2022-0 No Unknown 4-12 00:00: 00 Dose 2022-0 No Unknown 4-12 00:00: 00 Dose 2022-0 No Unknown 4-12 00:00: 00 Dose 2022-0 No Unknown 4-12 00:00: 00 Dose 2022-0 No Unknown 4-12 00:00: 00 Dose 2022-0 No Unknown 4-12 00:00: 00 Dose 2022-0 No Unknown 4-12 00:00: 00 Dose 2022-0 No Unknown 4-12 00:00: 00 Dose 2022-0 No Unknown 4-12 00:00: 00 Dose 2022-0 No Unknown 4-12 00:00: 00 Dose 2022-0 No Unknown 4-12 00:00: 00 Dose 2022-0 No Unknown 4-12 00:00: 00 Dose 2022-0 No Unknown 4-12 00:00: 00 Dose 2022-0 No Unknown 4-12 00:00: 00 Dose 2022-0 No Unknown 4-12 00:00: 00 Dose 2022-0 No Unknown 4-12 00:00: 00 Dose 2022-0 No Unknown 4-12 00:00: 00 Dose 2022-0 No Unknown 4-12 00:00: 00 Dose 2022-0 No Unknown 4-12 00:00: 00 Dose 2022-0 No Unknown 4-12 00:00: 00 Dose 2022-0 No Unknown 4-12 00:00: 00 Dose 2022-0 No Unknown 4-12 00:00: 00 Dose 2022-0 No Unknown 4-12 00:00: 00 Dose 2022-0 No Unknown 4-12 00:00: 00 Dose 2022-0 No Unknown 4-12 00:00: 00 Dose 2022-0 No Unknown 4-12 00:00: 00 Dose 2022-0 No Unknown 4-12 00:00: 00 Dose 2022-0 No Unknown 4-12 00:00: 00 Dose 2022-0 No Unknown 4-12 00:00: 00 Dose 2022-0 No Unknown 4-12 00:00: 00 Dose 2022-0 No Unknown 4-12 00:00: 00 Dose 2022-0 No Unknown 4-12 00:00: 00 Dose 2022-0 No Unknown 4-12 00:00: 00 Dose 2022-0 No Unknown 4-12 00:00: 00 Dose 2022-0 No Unknown 4-12 00:00: 00 Dose 2022-0 No Unknown 4-12 00:00: 00 Dose 2022-0 No Unknown 4-12 00:00: 00 Dose 2022-0 No Unknown 4-12 00:00: 00 Dose 2022-0 No Unknown 4-12 00:00: 00 Dose 2022-0 No Unknown 4-12 00:00: 00 Dose 2022-0 No Unknown 4-12 00:00: 00 Dose 2022-0 No Unknown 4-12 00:00: 00 Dose 2022-0 No Unknown 4-12 00:00: 00 Dose 2022-0 No Unknown 4-12 00:00: 00 Dose 2022-0 No Unknown 4-12 00:00: 00 Dose 2022-0 No Unknown 4-12 00:00: 00 Dose 2022-0 No Unknown 4-12 00:00: 00 Dose 2022-0 No Unknown 4-12 00:00: 00 Dose 2022-0 No Unknown 4-12 00:00: 00 Dose 2022-0 No Unknown 4-12 00:00: 00 Dose 2022-0 No Unknown 4-12 00:00: 00 Dose 2022-0 No Unknown 4-12 00:00: 00 Dose 2022-0 No Unknown 4-12 00:00: 00 Dose 2022-0 No Unknown 4-12 00:00: 00 Dose 2022-0 No Unknown 4-12 00:00: 00 Dose 2022-0 No Unknown 4-12 00:00: 00 Dose 2022-0 No Unknown 4-12 00:00: 00 Dose 2022-0 No Unknown 4-12 00:00: 00 Dose 2022-0 No Unknown 4-12 00:00: 00 Dose 2022-0 No Unknown 4-12 00:00: 00 Dose 2022-0 No Unknown 4-12 00:00: 00 Dose 2022-0 No Unknown 4-12 00:00: 00 Dose 2022-0 No Unknown 4-12 00:00: 00 Dose 2022-0 No Unknown 4-12 00:00: 00 Dose 2022-0 No Unknown 4-12 00:00: 00 Dose 2022-0 No Unknown 4-12 00:00: 00 Dose 2022-0 No Unknown 4-12 00:00: 00 Dose 2022-0 No Unknown 4-12 00:00: 00 Dose 2022-0 No Unknown 4-12 00:00: 00 Dose 2022-0 No Unknown 4-12 00:00: 00 Dose 2022-0 No Unknown 4-12 00:00: 00 Dose 2022-0 No Unknown 4-12 00:00: 00 Dose 2022-0 No Unknown 4-12 00:00: 00 Dose 2022-0 No Unknown 4-12 00:00: 00 Dose 2022-0 No Unknown 4-12 00:00: 00 Dose 2022-0 No Unknown 4-12 00:00: 00 Dose 2022-0 No Unknown 4-12 00:00: 00 Dose 2022-0 No Unknown 4-12 00:00: 00 Dose 2022-0 No Unknown 4-12 00:00: 00 Dose 2022-0 No Unknown 4-12 00:00: 00 Dose 2022-0 No Unknown 4-12 00:00: 00 Dose 2022-0 No Unknown 4-12 00:00: 00 Dose 2022-0 No Unknown 4-12 00:00: 00 Dose 2022-0 No Unknown 4-12 00:00: 00 Dose 2022-0 No Unknown 4-12 00:00: 00 Dose 2-0 No Unknown 4-12 00:00: 00 Dose 2-0 No Unknown 4-12 00:00: 00 Dose 2-0 No Unknown 4-12 00:00: 00 Dose 2-0 No Unknown 4-12 00:00: 00 Dose 2-0 No Unknown 4-12 00:00: 00 Dose 2-0 No Unknown 4-12 00:00: 00 Dose 2-0 No Unknown 4-12 00:00: 00 Dose 2-0 No Unknown 4-12 00:00: 00 Dose 2-0 No Unknown 4-12 00:00: 00 Dose 2021-0 No Unknown 4-12 00:00: 00 Dose 2-0 No Unknown 4-12 00:00: 00 Dose 2021-0 No Unknown 4-12 00:00: 00 Dose 2021-0 No Unknown 4-12 00:00: 00 Dose 2021-0 No Unknown 4-12 00:00: 00 Dose 2021-0 No Unknown 4-12 00:00: 00 Victoza 2021-0 No (18 2-Abhay 0.6 4-12 mg/3 mg/0.1 mL 00:00: mL) (18 mg/3 00 mL) subcutaneou s pen injector Dose 2021-0 No Unknown 4-12 00:00: 00 Dose 2021-0 No Unknown 4-12 00:00: 00 Dose 2021-0 No Unknown 4-12 00:00: 00 Dose 2021-0 No Unknown 4-12 00:00: 00 Dose 2021-0 No Unknown 4-12 00:00: 00 Tresiba 2021-0 No (3 mL) FlexTouch 4-12 U-200 00:00: insulin 200 00 unit/mL (3 mL) subcutaneou s pen Novolog 2021-0 No (3 mL) Flexpen 4-12 U-100 00:00: Insulin 00 aspart 100 unit/mL (3 mL) subcutaneou s mupirocin 2 0 No 1% % topical 4-12 ointment 00:00: 00 montelukast 2021-0 No 1mg 10 mg 4-12 tablet 00:00: 00 clonidine 2021-0 No 1mg HCl 0.2 mg 4-12 tablet 00:00: 00 quetiapine 2-0 No 2mg 400 mg 4-12 tablet 00:00: 00 pantoprazol 2-0 No 1mg e 40 mg 4-12 tablet,mellisa 00:00: yed release 00 metoclopram 2-0 No 1mg chrissy 10 mg 4-12 tablet 00:00: 00 buspirone 2-0 No 1mg 30 mg 4-12 tablet 00:00: 00 amitriptyli 2-0 No 1mg ne 50 mg 4-12 tablet 00:00: 00 hydroxyzine 2-0 No 1mg HCl 50 mg 4-12 tablet 00:00: 00 Combivent 2-0 No 2mcg/ac Respimat 20 4-12 tuation mcg-100 00:00: mcg/actuati 00 on solution for inhalation duloxetine 2-0 No 1mg 30 mg 4-12 capsule,del 00:00: ayed 00 release Dose 2-0 No Unknown 4-12 00:00: 00 gabapentin 2-0 No 1mg 400 mg 4-12 capsule 00:00: 00 Dose 2022-0 No Unknown 4-12 00:00: 00 Dose 2022-0 No Unknown 4-12 00:00: 00 Victoza 2-0 No (18 2-Abhay 0.6 4-12 mg/3 mg/0.1 mL 00:00: mL) (18 mg/3 00 mL) subcutaneou s pen injector Tresiba 2-0 No (3 mL) FlexTouch 4-12 U-200 00:00: insulin 200 00 unit/mL (3 mL) subcutaneou s pen Novolog 2-0 No (3 mL) Flexpen 4-12 U-100 00:00: Insulin 00 aspart 100 unit/mL (3 mL) subcutaneou s mupirocin 2 2021-0 No 1% % topical 4-12 ointment 00:00: 00 montelukast 2-0 No 1mg 10 mg 4-12 tablet 00:00: 00 clonidine 2-0 No 1mg HCl 0.2 mg 4-12 tablet 00:00: 00 quetiapine 2-0 No 2mg 400 mg 4-12 tablet 00:00: 00 pantoprazol 2-0 No 1mg e 40 mg 4-12 tablet,mellisa 00:00: yed release 00 Dose 2022-0 No Unknown 4-12 00:00: 00 metoclopram 2-0 No 1mg chrissy 10 mg 4-12 tablet 00:00: 00 buspirone 2022-0 No 1mg 30 mg 4-12 tablet 00:00: 00 amitriptyli 2-0 No 1mg ne 50 mg 4-12 tablet 00:00: 00 hydroxyzine 2-0 No 1mg HCl 50 mg 4-12 tablet 00:00: 00 Combivent 2-0 No 2mcg/ac Respimat 20 4-12 tuation mcg-100 00:00: mcg/actuati 00 on solution for inhalation duloxetine 2-0 No 1mg 30 mg 4-12 capsule,del 00:00: ayed 00 release Dose 2022-0 No Unknown 4-12 00:00: 00 gabapentin 2022-0 No 1mg 400 mg 4-12 capsule 00:00: 00 Dose 2022-0 No Unknown 4-12 00:00: 00 Dose 2022-0 No Unknown 4-12 00:00: 00 Dose 2022-0 No Unknown 4-12 00:00: 00 Dose 2022-0 No Unknown 4-12 00:00: 00 Dose 2022-0 No Unknown 4-12 00:00: 00 Dose 2022-0 No Unknown 4-12 00:00: 00 Dose 2022-0 No Unknown 4-12 00:00: 00 Dose 2022-0 No Unknown 4-12 00:00: 00 Dose 2022-0 No Unknown 4-12 00:00: 00 Dose 2022-0 No Unknown 4-12 00:00: 00 Dose 2022-0 No Unknown 4-12 00:00: 00 Dose 2022-0 No Unknown 4-12 00:00: 00 Dose 2022-0 No Unknown 4-12 00:00: 00 Dose 2022-0 No Unknown 4-12 00:00: 00 Dose 2022-0 No Unknown 4-12 00:00: 00 Dose 2022-0 No Unknown 4-12 00:00: 00 Dose 2022-0 No Unknown 4-12 00:00: 00 Dose 2022-0 No Unknown 4-12 00:00: 00 Dose 2022-0 No Unknown 4-12 00:00: 00 Dose 2022-0 No Unknown 4-12 00:00: 00 Dose 2022-0 No Unknown 4-12 00:00: 00 Dose 2022-0 No Unknown 4-12 00:00: 00 Dose 2022-0 No Unknown 4-12 00:00: 00 Dose 2022-0 No Unknown 4-12 00:00: 00 Dose 2022-0 No Unknown 4-12 00:00: 00 Dose 2022-0 No Unknown 4-12 00:00: 00 Dose 2022-0 No Unknown 4-12 00:00: 00 Dose 2022-0 No Unknown 4-12 00:00: 00 Dose 2022-0 No Unknown 4-12 00:00: 00 Dose 2022-0 No Unknown 4-12 00:00: 00 Dose 2022-0 No Unknown 4-12 00:00: 00 Dose 2022-0 No Unknown 4-12 00:00: 00 Dose 2022-0 No Unknown 4-12 00:00: 00 Dose 2022-0 No Unknown 4-12 00:00: 00 Dose 2022-0 No Unknown 4-12 00:00: 00 Dose 2022-0 No Unknown 4-12 00:00: 00 Dose 2022-0 No Unknown 4-12 00:00: 00 Dose 2022-0 No Unknown 4-12 00:00: 00 Dose 2022-0 No Unknown 4-12 00:00: 00 Dose 2022-0 No Unknown 4-12 00:00: 00 Dose 2022-0 No Unknown 4-12 00:00: 00 Dose 2022-0 No Unknown 4-12 00:00: 00 Dose 2022-0 No Unknown 4-12 00:00: 00 Dose 2022-0 No Unknown 4-12 00:00: 00 Dose 2022-0 No Unknown 4-12 00:00: 00 Dose 2022-0 No Unknown 4-12 00:00: 00 Dose 2022-0 No Unknown 4-12 00:00: 00 Dose 2022-0 No Unknown 4-12 00:00: 00 Dose 2022-0 No Unknown 4-12 00:00: 00 Dose 2022-0 No Unknown 4-12 00:00: 00 Dose 2022-0 No Unknown 4-12 00:00: 00 Dose 2022-0 No Unknown 4-12 00:00: 00 Dose 2022-0 No Unknown 4-12 00:00: 00 Dose 2022-0 No Unknown 4-12 00:00: 00 Dose 2022-0 No Unknown 4-12 00:00: 00 Dose 2022-0 No Unknown 4-12 00:00: 00 Dose 2022-0 No Unknown 4-12 00:00: 00 Dose 2022-0 No Unknown 4-12 00:00: 00 Dose 2022-0 No Unknown 4-12 00:00: 00 Dose 2022-0 No Unknown 4-12 00:00: 00 Dose 2022-0 No Unknown 4-12 00:00: 00 Dose 2022-0 No Unknown 4-12 00:00: 00 Dose 2022-0 No Unknown 4-12 00:00: 00 Dose 2022-0 No Unknown 4-12 00:00: 00 Dose 2022-0 No Unknown 4-12 00:00: 00 Dose 2022-0 No Unknown 4-12 00:00: 00 Dose 2022-0 No Unknown 4-12 00:00: 00 Dose 2022-0 No Unknown 4-12 00:00: 00 Dose 2022-0 No Unknown 4-12 00:00: 00 Dose 2022-0 No Unknown 4-12 00:00: 00 Dose 2022-0 No Unknown 4-12 00:00: 00 Dose 2022-0 No Unknown 4-12 00:00: 00 Dose 2022-0 No Unknown 4-12 00:00: 00 Dose 2022-0 No Unknown 4-12 00:00: 00 Dose 2022-0 No Unknown 4-12 00:00: 00 Dose 2022-0 No Unknown 4-12 00:00: 00 Dose 2022-0 No Unknown 4-12 00:00: 00 Dose 2022-0 No Unknown 4-12 00:00: 00 Dose 2022-0 No Unknown 4-12 00:00: 00 Dose 2022-0 No Unknown 4-12 00:00: 00 Dose 2022-0 No Unknown 4-12 00:00: 00 Dose 2022-0 No Unknown 4-12 00:00: 00 Dose 2022-0 No Unknown 4-12 00:00: 00 Dose 2022-0 No Unknown 4-12 00:00: 00 Dose 2022-0 No Unknown 4-12 00:00: 00 Dose 2022-0 No Unknown 4-12 00:00: 00 Dose 2022-0 No Unknown 4-12 00:00: 00 Dose 2022-0 No Unknown 4-12 00:00: 00 Dose 2022-0 No Unknown 4-12 00:00: 00 Dose 2022-0 No Unknown 4-12 00:00: 00 Dose 2022-0 No Unknown 4-12 00:00: 00 Dose 2022-0 No Unknown 4-12 00:00: 00 Dose 2022-0 No Unknown 4-12 00:00: 00 Dose 2022-0 No Unknown 4-12 00:00: 00 Dose 2022-0 No Unknown 4-12 00:00: 00 Dose 2022-0 No Unknown 4-12 00:00: 00 Dose 2022-0 No Unknown 4-12 00:00: 00 Dose 2022-0 No Unknown 4-12 00:00: 00 Dose 2021-1 No Unknown 2-30 00:00: 00 Dose 2021-1 No Unknown 2-30 00:00: 00 Dose 2021-1 No Unknown 2-30 00:00: 00 Dose 2021-1 No Unknown 2-30 00:00: 00 Dose 2021-1 No Unknown 2-30 00:00: 00 Dose 2021-1 No Unknown 2-30 00:00: 00 Dose 2021-1 No Unknown 2-30 00:00: 00 Dose 2021-1 No Unknown 2-30 00:00: 00 Dose 2021-1 No Unknown 2-30 00:00: 00 Dose 2021-1 No Unknown 2-30 00:00: 00 Dose 2021-1 No Unknown 2-30 00:00: 00 Dose 2021-1 No Unknown 2-30 00:00: 00 Dose 2021-1 No Unknown 2-30 00:00: 00 Dose 2021-1 No Unknown 2-30 00:00: 00 Dose 2021-1 No Unknown 2-30 00:00: 00 Dose 2021-1 No Unknown 2-30 00:00: 00 Dose 2021-1 No Unknown 2-30 00:00: 00 Dose 2021-1 No Unknown 2-30 00:00: 00 Dose 2021-1 No Unknown 2-30 00:00: 00 Dose 2021-1 No Unknown 2-30 00:00: 00 Dose 2021-1 No Unknown 2-30 00:00: 00 Dose 2020- No Unknown 2-30 00:00: 00 Dose 2020- No Unknown 2-30 00:00: 00 Dose 2020- No Unknown 2-30 00:00: 00 Dose 2020- No Unknown 2-28 00:00: 00 Dose 2020-04 No Unknown 2-28 00:00: 00 Dose 2020- No Unknown 2-28 00:00: 00 Dose 2020- No Unknown 2-28 00:00: 00 Dose 2020- No Unknown 2-28 00:00: 00 Dose 2020-04 No Unknown 2-28 00:00: 00 buspirone 2020-04 No 1mg 30 mg 1-16 tablet 00:00: 00 metronidazo 2020-04 No 1mg le 500 mg 1-16 tablet 00:00: 00 Dose 2020-04 No Unknown 1-16 00:00: 00 metronidazo 2020-04 No 1mg le 500 mg 1-16 tablet 00:00: 00 amitriptyli 2020-04 No 1mg ne 50 mg 1-16 tablet 00:00: 00 Dose 2020-04 No Unknown 1-16 00:00: 00 buspirone 2020-04 No 1mg 30 mg 1-16 tablet 00:00: 00 metronidazo 2020-04 No 1mg le 500 mg 1-16 tablet 00:00: 00 Dose 2020-04 No Unknown 1-16 00:00: 00 metronidazo 2020-04 No 1mg le 500 mg 1-16 tablet 00:00: 00 amitriptyli 2020-04 No 1mg ne 50 mg 1-16 tablet 00:00: 00 Dose 2020-04 No Unknown 1-16 00:00: 00 hydroxyzine 2020-04 No 1mg HCl 50 mg 1-16 tablet 00:00: 00 hydroxyzine 2020-04 No 1mg HCl 50 mg 1-16 tablet 00:00: 00 Dose 2020-04 No Unknown 1-16 00:00: 00 duloxetine 2020-04 No 1mg 30 mg 1-16 capsule,del 00:00: ayed 00 release Dose 2020-04 No Unknown 1-16 00:00: 00 Dose 2020-04 No Unknown 1-16 00:00: 00 duloxetine 2020-04 No 1mg 30 mg 1-16 capsule,del 00:00: ayed 00 release Dose 2020- No Unknown 1-16 00:00: 00 buspirone 2020-1 No 1mg 30 mg 1-16 tablet 00:00: 00 metronidazo 2020-1 No 1mg le 500 mg 1-16 tablet 00:00: 00 Dose 2020-1 No Unknown 1-16 00:00: 00 metronidazo 2020-1 No 1mg le 500 mg 1-16 tablet 00:00: 00 amitriptyli 2020- No 1mg ne 50 mg 1-16 tablet 00:00: 00 Dose 2020- No Unknown 1-16 00:00: 00 hydroxyzine 2020- No 1mg HCl 50 mg 1-16 tablet 00:00: 00 Dose 2020-1 No Unknown 1-16 00:00: 00 duloxetine 2020-1 No 1mg 30 mg 1-16 capsule,del 00:00: ayed 00 release Dose 2020- No Unknown -16 00:00: 00 ciprofloxac 2020-1 No 1mg in 500 mg 1-02 tablet 00:00: 00 dicyclomine 2020-1 No 1mg 20 mg 1-02 tablet 00:00: 00 ondansetron 2020-1 No 1mg 8 mg 1-02 disintegrat 00:00: ing tablet 00 ciprofloxac 2020-1 No 1mg in 500 mg 1-02 tablet 00:00: 00 dicyclomine 2020-1 No 1mg 20 mg 1-02 tablet 00:00: 00 ondansetron 2020-1 No 1mg 8 mg 1-02 disintegrat 00:00: ing tablet 00 ciprofloxac 2020-1 No 1mg in 500 mg 1-02 tablet 00:00: 00 dicyclomine 2020-1 No 1mg 20 mg 1-02 tablet 00:00: 00 ondansetron 2020-1 No 1mg 8 mg 1-02 disintegrat 00:00: ing tablet 00 etodolac 2020-1 No 1mg 400 mg 0-18 tablet 00:00: 00 etodolac 2020-1 No 1mg 400 mg 0-18 tablet 00:00: 00 etodolac 2021-1 No 1mg 400 mg 0-18 tablet 00:00: 00 lidocaine 5 2020-04 No 1% % topical 0-05 patch 00:00: 00 buspirone 2020-04 No 1mg 15 mg 0-05 tablet 00:00: 00 hydroxyzine 2020-04 No 1mg HCl 25 mg 0-05 tablet 00:00: 00 indomethaci 2020-04 No 1mg n 50 mg 0-05 capsule 00:00: 00 Bromfed DM 2020-04 No 5mg/5 2 mg-30 0-05 mL mg-10 mg/5 00:00: mL oral 00 syrup lidocaine 5 2020-04 No 1% % topical 0-05 patch 00:00: 00 buspirone 2020-04 No 1mg 15 mg 0-05 tablet 00:00: 00 hydroxyzine 2020-04 No 1mg HCl 25 mg 0-05 tablet 00:00: 00 indomethaci 2020-04 No 1mg n 50 mg 0-05 capsule 00:00: 00 Bromfed DM 2020-04 No 5mg/5 2 mg-30 0-05 mL mg-10 mg/5 00:00: mL oral 00 syrup lidocaine 5 2020-04 No 1% % topical 0-05 patch 00:00: 00 buspirone 2020-04 No 1mg 15 mg 0-05 tablet 00:00: 00 hydroxyzine 2020-04 No 1mg HCl 25 mg 0-05 tablet 00:00: 00 indomethaci 2020-04 No 1mg n 50 mg 0-05 capsule 00:00: 00 Bromfed DM 2020-04 No 5mg/5 2 mg-30 0-05 mL mg-10 mg/5 00:00: mL oral 00 syrup Novolog No (3 mL) Flexpen 9-28 U-100 00:00: Insulin 00 aspart 100 unit/mL (3 mL) subcutaneou s Victoza 2020- No 6(18 2-Abhay 0.6 9-28 mg/3 mg/0.1 mL 00:00: mL) (18 mg/3 00 mL) subcutaneou s pen injector clonidine 2020-0 No 1mg HCl 0.2 mg 9-28 tablet 00:00: 00 pantoprazol 0 No 1mg e 40 mg 9-28 tablet,mellisa 00:00: yed release 00 montelukast 1-0 No 1mg 10 mg 9-28 tablet 00:00: 00 quetiapine 2021-0 No 2mg 400 mg 9-28 tablet 00:00: 00 quetiapine 2021-0 No 2mg 400 mg 9-28 tablet 00:00: 00 montelukast 2021-0 No 1mg 10 mg 9-28 tablet 00:00: 00 clonidine 2021-0 No 1mg HCl 0.2 mg 9-28 tablet 00:00: 00 pantoprazol 1-0 No 1mg e 40 mg 9-28 tablet,mellisa 00:00: yed release 00 metoclopram 1-0 No 1mg chrissy 10 mg 9-28 tablet 00:00: 00 metoclopram 1-0 No 1mg chrissy 10 mg 9-28 tablet 00:00: 00 Xanax 2 mg 2020-0 No 1mg tablet 01-14 00:00: 00 hydrocodone 1-0 No 1mg 10 -28 mg-acetamin 00:00: ophen 300 00 mg tablet Combivent 2020-0 No 2mcg/ac Respimat 20 9-28 tuation mcg-100 00:00: mcg/actuati 00 on solution for inhalation Combivent 2020-0 No 2mcg/ac Respimat 20 9-28 tuation mcg-100 00:00: mcg/actuati 00 on solution for inhalation Victoza 2020-0 No (18 2-Abhay 0.6 9-28 mg/3 mg/0.1 mL 00:00: mL) (18 mg/3 00 mL) subcutaneou s pen injector Novolog 2020-0 No 1(3 mL) Flexpen 9-28 U-100 00:00: Insulin 00 aspart 100 unit/mL (3 mL) subcutaneou s Victoza 2020-0 No 6(18 2-Abhay 0.6 9-28 mg/3 mg/0.1 mL 00:00: mL) (18 mg/3 00 mL) subcutaneou s pen injector Tresiba 2020-0 No (3 mL) FlexTouch 9-28 U-200 00:00: insulin 200 00 unit/mL (3 mL) subcutaneou s pen Novolog 2020-0 No (3 mL) Flexpen 9-28 U-100 00:00: Insulin 00 aspart 100 unit/mL (3 mL) subcutaneou s Victoza 2020-0 No 6(18 2-Abhay 0.6 9-28 mg/3 mg/0.1 mL 00:00: mL) (18 mg/3 00 mL) subcutaneou s pen injector clonidine 2020-0 No 1mg HCl 0.2 mg 9-28 tablet 00:00: 00 pantoprazol 1-0 No 1mg e 40 mg 9-28 tablet,mellisa 00:00: yed release 00 montelukast 2021-0 No 1mg 10 mg 9-28 tablet 00:00: 00 quetiapine 2021-0 No 2mg 400 mg 9-28 tablet 00:00: 00 quetiapine 2021-0 No 2mg 400 mg 9-28 tablet 00:00: 00 montelukast 2021-0 No 1mg 10 mg 9-28 tablet 00:00: 00 clonidine 1-0 No 1mg HCl 0.2 mg 9-28 tablet 00:00: 00 pantoprazol 1-0 No 1mg e 40 mg 9-28 tablet,mellisa 00:00: yed release 00 metoclopram 1-0 No 1mg chrissy 10 mg 9-28 tablet 00:00: 00 metoclopram 2021-0 No 1mg chrissy 10 mg 9-28 tablet 00:00: 00 Xanax 2 mg 1-0 No 1mg tablet 9-28 00:00: 00 hydrocodone 1-0 No 1mg 10 9-28 mg-acetamin 00:00: ophen 300 00 mg tablet Combivent 2020-0 No 2mcg/ac Respimat 20 -28 tuation mcg-100 00:00: mcg/actuati 00 on solution for inhalation Combivent 2020-0 No 2mcg/ac Respimat 20 9-28 tuation mcg-100 00:00: mcg/actuati 00 on solution for inhalation Victoza 2020-0 No (18 2-Abhay 0.6 9-28 mg/3 mg/0.1 mL 00:00: mL) (18 mg/3 00 mL) subcutane s pen injector Victoza 2020-0 No (18 2-Abhay 0.6 9-28 mg/3 mg/0.1 mL 00:00: mL) (18 mg/3 00 mL) subcutaneou s pen injector Novolog 2020-0 No 1(3 mL) Flexpen 9-28 U-100 00:00: Insulin 00 aspart 100 unit/mL (3 mL) subcutaneou s Victoza 2020-0 No 6(18 2-Abhay 0.6 9-28 mg/3 mg/0.1 mL 00:00: mL) (18 mg/3 00 mL) subcutaneou s pen injector Tresiba 2020-0 No (3 mL) FlexTouch 9-28 U-200 00:00: insulin 200 00 unit/mL (3 mL) subcutaneou s pen Novolog 2020-0 No (3 mL) Flexpen 9-28 U-100 00:00: Insulin 00 aspart 100 unit/mL (3 mL) subcutaneou s Victoza 2020-0 No 6(18 2-Abhay 0.6 9-28 mg/3 mg/0.1 mL 00:00: mL) (18 mg/3 00 mL) subcutaneou s pen injector clonidine 2020-0 No 1mg HCl 0.2 mg 9-28 tablet 00:00: 00 pantoprazol 1-0 No 1mg e 40 mg 9-28 tablet,mellisa 00:00: yed release 00 montelukast 1-0 No 1mg 10 mg 9-28 tablet 00:00: 00 quetiapine 1-0 No 2mg 400 mg 9-28 tablet 00:00: 00 quetiapine 2021-0 No 2mg 400 mg 9-28 tablet 00:00: 00 montelukast 2021-0 No 1mg 10 mg 9-28 tablet 00:00: 00 clonidine 2021-0 No 1mg HCl 0.2 mg 9-28 tablet 00:00: 00 pantoprazol 1-0 No 1mg e 40 mg 9-28 tablet,mellisa 00:00: yed release 00 metoclopram 1-0 No 1mg chrissy 10 mg 9-28 tablet 00:00: 00 metoclopram 2021-0 No 1mg chrissy 10 mg 9-28 tablet 00:00: 00 Xanax 2 mg 2021-0 No 1mg tablet 01-14 00:00: 00 hydrocodone 2020-0 No 1mg 10 01-14 mg-acetamin 00:00: ophen 300 00 mg tablet Combivent 0 No 2mcg/ac Respimat 20 01-14 tuation mcg-100 00:00: mcg/actuati 00 on solution for inhalation Combivent 0 No 2mcg/ac Respimat 20 01-14 tuation mcg-100 00:00: mcg/actuati 00 on solution for inhalation Novolog 2020-0 No 1(3 mL) Flexpen 9-28 U-100 00:00: Insulin 00 aspart 100 unit/mL (3 mL) subcutaneou s Victoza No 6(18 2-Abhay 0.6 9-28 mg/3 mg/0.1 mL 00:00: mL) (18 mg/3 00 mL) subcutaneou s pen injector Tresiba 2020-0 No (3 mL) FlexTouch 9-28 U-200 00:00: insulin 200 00 unit/mL (3 mL) subcutaneou s pen Tresiba 2020-0 No (3 mL) FlexTouch 7-03 U-200 00:00: insulin 200 00 unit/mL (3 mL) subcutaneou s pen Tresiba 2020-0 No (3 mL) FlexTouch 7-03 U-200 00:00: insulin 200 00 unit/mL (3 mL) subcutaneou s pen Tresiba 2020-0 No (3 mL) FlexTouch 7-03 U-200 00:00: insulin 200 00 unit/mL (3 mL) subcutaneou s pen Victoza 2020-0 No (18 3-Abhay 0.6 4-05 mg/3 mg/0.1 mL 00:00: mL) (18 mg/3 00 mL) subcutaneou s pen injector Victoza 2020-0 No (18 3-Abhay 0.6 4-05 mg/3 mg/0.1 mL 00:00: mL) (18 mg/3 00 mL) subcutaneou s pen injector Victoza 2020-0 No (18 3-Abhay 0.6 4-05 mg/3 mg/0.1 mL 00:00: mL) (18 mg/3 00 mL) subcutaneou s pen injector zinc Yes [id number] 220mg Take 1 Uni vers sulfate 220 2-28 [id number] capsule by ity of (50) mg 00:00: mouth [place] capsule 00 daily. Medical Branch ascorbic Yes [id number] 500mg Take 1 [facility] acid, 2- [id number] tablet by ity of vitamin C, 00:00: mouth [place] 500 mg 00 daily. Medical tablet Branch zinc Yes [id number] 220mg Take 1 Uni vers sulfate 220 2- [id number] capsule by ity of (50) mg 00:00: mouth [place] capsule 00 daily. Medical Branch ascorbic Yes [id number] 500mg Take 1 [facility] acid, 2- [id number] tablet by ity of vitamin C, 00:00: mouth [place] 500 mg 00 daily. Medical tablet Branch ALPRAZolam Yes 2mg Take 2 mg Un [place] (XANAX) 2 2-27 by mouth 3 ity of mg tablet 21:18: (three) [place] 29 times Medical daily as Branch needed for Sleep. INSULIN Yes 80U inject 80 Unive rs DEGLUDEC 2-27 Units ity of (TRESIBA 21:18: [place] the [place] FLEXTOUCH 29 skin every Medi antione U-100 SC) morning. Branch pantoprazol Yes 20mg Take 20 mg Univers e 2-27 by mouth ity of (PROTONIX) 21:18: daily. [place] 20 mg EC 29 Medical tablet Branch insulin Yes inject Univers aspart 2-27 under the ity of prot/insuln 21:18: skin. [place] asp 29 Medical (NOVOLOG Branch MIX 70-30 SC) cloNIDine Yes .2mg Take 0.2 Univ ers 0.2 mg 2-27 mg by ity of tablet 21:18: mouth 3 [place] 29 (three) Medical times Branch daily. metoprolol Yes 50mg Take 50 mg U nivers succinate 2-27 by mouth 2 ity of XL 50 mg 24 21:18: (two) [place] hr tablet 29 times Medical daily. Branch QUEtiapine Yes 800mg Take 800 Un [place] (SEROQUEL) 2-27 mg by ity of 400 mg 21:18: mouth at [place] tablet 29 bedtime. Medical Branch ALPRAZolam Yes 2mg Take 2 mg Un [place] (XANAX) 2 2-27 by mouth 3 ity of mg tablet 21:18: (three) [place] 29 times Medical daily as Branch needed for Sleep. INSULIN Yes 80U inject 80 Unive rs DEGLUDEC 2-27 Units ity of (TRESIBA 21:18: under the [place] FLEXTOUCH 29 skin every Medi antione U-100 SC) morning. Branch pantoprazol Yes 20mg Take 20 mg Univers e 2-27 by mouth ity of (PROTONIX) 21:18: daily. [place] 20 mg EC 29 Medical tablet Branch insulin Yes inject Univers aspart 2-27 under the ity of prot/insuln 21:18: skin. [place] asp 29 Medical (NOVOLOG Branch MIX 70-30 SC) cloNIDine Yes .2mg Take 0.2 Univ ers 0.2 mg 2-27 mg by ity of tablet 21:18: mouth 3 [place] 29 (three) Medical times Branch daily. metoprolol Yes 50mg Take 50 mg U nivers succinate 2-27 by mouth 2 ity of XL 50 mg 24 21:18: (two) [place] hr tablet 29 times Medical daily. Branch QUEtiapine Yes 800mg Take 800 Un nighat (SEROQUEL) 2-27 mg by ity of 400 mg 21:18: mouth at [place] tablet 29 bedtime. Medical Branch ergocalcife Yes [id number] 11248G Take 1 Univers rol, 2-27 [id number] capsule by ity of vitamin d2, 00:00: mouth [place] 1,250 mcg 00 weekly. Medical (50,000 Branch unit) capsule benzonatate Yes [id number] 200mg Take 2 Univers (TESSALON 2-27 [id number] capsules ity of PERLES) 100 00:00: by mouth 3 [place] mg capsule 00 (three) Medica l times Branch daily as needed for Cough. aspirin 81 Yes [id number] 81mg Take 1 Univers mg chewable 2-27 [id number] tablet by ity of tablet 00:00: mouth [place] 00 daily. Medical Branch ergocalcife Yes [id number] 22848E Take 1 Univers rol, 06-15 [id number] capsule by ity of vitamin d2, 00:00: mouth [place] 1,250 mcg 00 weekly. Medical (50,000 Branch unit) capsule benzonatate Yes [id number] 200mg Take 2 Univers (TESSALON 06-15 [id number] capsules ity of PERLES) 100 00:00: by mouth 3 [place] mg capsule 00 (three) Medica l times [place] daily as needed for Cough. aspirin 81 Yes [id number] 81mg Take 1 Univers mg chewable 06-15 [id number] tablet by ity of tablet 00:00: mouth [place] 00 daily. Medical Branch dexAMETHaso 2020- No [id number] 4mg Take 1 Univers ne 4 mg 06-15- [id number] tablet by ity of tablet 00:00: 05:59 mouth [place] 00 :00 daily with Medical breakfast [place] for 5 days. dexAMETHaso 2020- No [id number] 4mg Take 1 Univers ne 4 mg 06-15- [id number] tablet by ity of tablet 00:00: 05:59 [...] Branch injection 0830, 100 mL Routine enoxaparin 2020- No 1mg/kg 100 mg Un nig[place] (LOVENOX) 06-13 (rounded ity o f injection 02:00: 07:50 from 101 [place] 100 mg 00 :01 mg = 1 Medical mg/kg ?101 Branch kg), Subcutaneo us, Q12H, First dose (after last modificati on) on Wed06/12/20 at 2000, Until Discontinu ed, Routine enoxaparin No 60mg 60 mg, Univ ers (LOVENOX) 06-12-24 Subcutaneo ity of injection 19:15: 19:21 us, ONCE [place] 60 mg 00 :00 NOW, 1 Medical dose, Wed [place] 06/12/20 at 1315, Routine tc 2020- No 7mCi 7 Univers 99m-albumin 06-12 millicurie i ty of (DRAXIMAGE 18:30: 18:20 , [place] MAA) 00 :00 Intravenou Medical injection 7 s, ONCE, 1 Br anch millicurie dose, Wed06/12/20 at 1230, Routine furosemide Yes 20mg 20 mg, IV Un nig[place] (LASIX) 2 Push, ity of injection 18:00: DAILY, [place] 20 mg 00 First dose Medical on [facility] 06/12/20 at 1200, Until Discontinu ed, Routine ALPRAZolam Yes 2mg 2 mg, Univer s (XANAX) 2 Oral, ity of tablet 2 mg 17:45: TIDPRN, [place] 00 Starting Medical [facility] 06/12/20 at 1145, Until Discontinu ed, Routine, anxiety HYDROcodone Yes 1{tbl} 1 tablet, Univers -acetaminop 06-12 Oral, ity of hen (NORCO) 17:42: Q6HPRN, [place] 10-325 mg 07 Starting Medica l tablet 1 Wed [place] tablet 06/12/20 at 1142, Until Discontinu ed, Routine, Pain (scale 4-6), Pain (scale 7-10) ascorbic Yes 1000mg 1,000 mg, Un [place] acid 2-24 Oral, ity of (vitamin C) 15:00: DAILY, [place] (VITAMIN C) 00 First dose Me dical tablet on [facility] Branch 1,000 mg 06/12/20 at 0900, Until Discontinu ed, Routine zinc Yes 220mg 220 mg, Univers sulfate 2-24 Oral, ity of (ORAZINC) 15:00: DAILY, [place] capsule 220 00 First dose Me dical mg on Wed [place] 06/12/20 at 0900, Until Discontinu ed, Routine pantoprazol 0 Yes 20mg 20 mg, Univ ers e 2-24 Oral, ity of (PROTONIX) 15:00: DAILY, [place] EC tablet 00 First dose Medi antione 20 mg on Wed [place] 06/12/20 at 0900, Until Discontinu ed, Routine montelukast 0 Yes 10mg 10 mg, Univ ers (SINGULAIR) 2-24 Oral, ity of tablet 10 15:00: DAILY, [place] mg 00 First dose Medical on Wed [place] 06/12/20 at 0900, Until Discontinu ed, Routine insulin Yes 80U 80 Units, Unive rs glargine 2-24 Subcutaneo ity o f (LANTUS 15:00: us, DAILY, [place] U-100) 00 First dose Medical injection on Wed [place] 80 Units 06/12/20 at 0900, Until Discontinu ed QUEtiapine Yes 800mg 800 mg, Uni vers (SEROQUEL) 2-24 Oral, QHS, ity of tablet 800 03:00: First dose [place] mg 00 on [facility] 06/11/20 at Branch 2100, Until Discontinu ed, Routine metoprolol Yes 50mg 50 mg, Unive rs succinate 2-24 Oral, BID, ity of XL (TOPROL 02:00: First dose [place] XL) tablet 00 on [facility] 50 mg 06/11/20 at Branch 1999, Until Discontinu ed, Routine cloNIDine 0 Yes .2mg 0.2 mg, Unive rs (CATAPRES) 2-24 Oral, TID, ity of tablet 0.2 02:00: First dose [place] mg 00 on [facility] 06/11/20 at Branch 1999, Until Discontinu ed, Routine albuterol-i Yes 2{puff} 2 Puff, Univers pratropium 2-24 Inhalation ity of (COMBIVENT 02:00: , QID, [place] RESPIMAT) 00 First dose Medi antione 20-100 on Tue Branch mcg/actuati 06/11/20 at on inhaler 2000, 2 Puff Until Discontinu ed
Is this order for a patient with suspected or confirmed COVID-19 infection? Yes iron 2020- No 1000mg 1,000 mg, Unive rs dextran 06-12 IV ity of (INFED) 01:45: 07:54 Infusion, [place] 1,000 mg in 00 :00 ONCE, 1 Medic al NaCl 0.9% dose, Tue Branc h (NS) 500 mL 06/11/20 at IV infusion 194, 500 mL magnesium 2020- No 1g 1 g, IV Univ ers sulfate in 06-12 Piggyback, it y of D5W 1 01:45: 04:48 ONCE, 1 [place] gram/100 mL 00 :00 dose, Tue Med ical RTU IV 06/11/20 at [place] Piggyback 1 1945, 100 g mL HYDROcodone 2020- No 1{tbl} 1 tablet, Univers -acetaminop 06-12 Oral, ity of hen (NORCO 00:30: 00:33 ONCE, 1 [place] 5) 5-325 mg 00 :00 dose, Tue Med ical tablet 1 06/11/20 at [facility] tablet 183, Routine proMETHazin Yes 12.5mg 12.5 mg, Univers [...] [place]PRN, [place] :22 Starting Medical [facility] 06/11/20 at 1720, Until Wed06/12/20 at 1143, Routine, anxiety HYDROcodone 2020- No 1{tbl} 1 tablet, Univers -acetaminop 06-11 Oral, ity of hen (NORCO) 23:17: 17:43 Q6HPRN, [place] 10-325 mg 21 :22 Starting Medica l tablet 1 [facility] tablet 06/11/20 at 1717, Until Wed06/12/20 at 1143, Routine, Pain (scale 7-10) Sliding Yes Subcutaneo [facility] ers Scale -23 us, TID ity of Insulin - 23:00: MEALS+HS, [place] as Lispro 00 First dose Medical (HumaLOG) + on [facility] Fsbg 06/11/20 at Testing 1700, Until Discontinu ed, Routine enoxaparin 2020- No 40mg 40 mg, [facility] ers (LOVENOX) 06-11 Subcutaneo ity of injection 23:00: 18:04 us, DAILY, [place] 40 mg 00 :51 First dose Medical on [facility] 06/11/20 at 1700, Until Discontinu ed, Routine codeine-gua Yes 10mL 10 mL, [facility] ers ifenesin 06-11 Oral, ity of (ROBITUSSIN 22:37: Q6HPRN, [place] AC) 10-100 32 Starting Medic al mg/5 mL [facility] solution 10 06/11/20 at mL 1637, Until Discontinu ed, Routine, Cough acetaminoph Yes 650mg 650 mg, Un nig[place] en 06-11 Oral, ity of (TYLENOL) 22:32: Q6HPRN, [place] tablet 650 47 Starting Medic al mg [facility] 06/11/20 at 1632, Until Discontinu ed, Routine, Pain (scale 1-3) diphenhydrA 2020- No 25mg 25 mg, Uni vers MINE 06-11 Slow IV ity of (BENADRYL) 21:00: 19:58 [place], [place] injection 00 :00 ONCE, 1 Medical 25 mg dose, Tue Branch 06/11/20 at 1500, STAT metoclopram 2020- No 10mg 10 mg, Uni vers chrissy HCl 06-11 Slow IV ity of (REGLAN) 21:00: 19:58 Push, [place] injection 00 :00 ONCE, 1 Medical 10 mg dose, Tue Branch 06/11/20 at 1500, [place] HYDROcodone 2020- No 1{tbl} 1 tablet, Univers -acetaminop 06-11 Oral, ity of hen (NORCO 19:30: 18:28 ONCE, 1 [place] as 5) 5-325 mg 00 :00 dose, Tue Med ical tablet 1 06/11/20 at [facility] h tablet 1330, HELENE NaCl 0.9% 2020- No 1000mL at 999 Uni vers (NS) bolus 06-11 mL/hr, ity of infusion 18:30: 18:28 1,000 [...] Tue Medi antione mg/5 mL 06/11/20 at Branch solution 10 1145, HELENE mL acetaminoph 2020- No 1000mg 1,000 mg, Univers en 06-11 Oral, ity of (TYLENOL) 17:45: 16:50 ONCE, [place] :[place] dose, Tue Medical 1,000 mg 06/11/20 at [facility] h 1145, HEL[place] albuterol 2020- No 2.5mg 2.5 mg, Uni vers (PROVENTIL) 06-11 Inhalation i ty of 2.5 mg /3 16:45: 16:48 , [place]CE, 1 [place] mL (0.083 00 :00 dose, Tue Medic al %) 06/11/20 at [place] nebulizer 1045, STAT solution 2.5 mg NaCl 0.9% 2020- No 1000mL at 999 Uni vers (NS) bolus 06-11 mL/hr, ity of infusion 16:45: 19:31 1,000 mL, [place] as 1,000 mL 00 :00 IV Medical Infusion, Branch ONCE, 1 dose, 06/11/20 at 1045, HELENE traMADOL Yes 50mg Take 1 Univers (ULTRAM) 50 7-10 tablet by ity of mg tablet 00:00: mouth [place] 00 every 6 Medical (six) Branch hours as needed for Pain (scale 7-10). levoFLOXaci Yes 500mg Take 1 Uni vers n 7-10 tablet by ity of (LEVAQUIN) 00:00: mouth [place] 500 mg 00 every 24 Medical tablet (twenty-fo Branch ur) hours. traMADOL No 50mg Take 1 Univer s (ULTRAM) 50 7-10 06-11 tablet by it y of mg tablet 00:00: 00:00 mouth [place] 00 :00 every 6 Medical (six) Branch hours as needed for Pain (scale 7-10). levoFLOXaci 2020- No 500mg Take 1 Un nighat n 7-10 23 tablet by ity of (LEVAQUIN) 00:00: 00:00 mouth [place] 500 mg 00 :00 every 24 Medical tablet (twenty-fo Branch ur) hours. ALPRAZolam 2015-04 Yes 2mg Take 2 mg Un nighat (XANAX) 2 05-15 by mouth 3 ity of mg tablet [...] 500mg Take 1 Un nighat in HCl -15 06-23 tablet by ity of (CIPRO) 500 00:00: 00:00 [place] 2 [place] mg tablet 00 :00 (two) Medical times Branch daily. metroNIDAZO 2015-04- No 500mg Take 1 Un nighat LE (FLAGYL) - 02-23 tablet by it y of 500 mg [...] 1{tbl} Take 1 Tab Univers en-codeine 4-05 -23 by mouth ity of (TYLENOL-CO 00:00: 00:00 [place] 6 [place] DEINE #3) 00 :00 (six) Medical 300-30 mg hours as Branch tablet needed for Pain (scale 4-6). esomeprazol 2010-04 Yes TAKE 1 Univ ers e (NEXIUM) 0-31 CAPSULE ity of 40 mg 00:00: EVERY DAY [place] capsule 00 WITH Medical BREAKFAST Branch esomeprazol 2010-04- No TAKE 1 Uni vers e (NEXIUM) 0-31 02-23 CAPSULE ity o f 40 mg 00:00: 00:00 EVERY DAY [place] capsule 00 :00 WITH Medical BREAKFAST Branch gabapentin Yes 400mg Take 1 Cap Univers (NEURONTIN) 2-02 by mouth 3 it y of 400 mg 00:00: (three) [place] capsule 00 times Medical daily. Branch gabapentin 400mg Take 1 Cap Univers (NEURONTIN) 2-02 02- by mouth 3 i ty of 400 mg 00:00: 00:00 (three) [place] capsule 00 :00 times Medical daily. Branch albuterol-i 2009-04 Yes 2{puff} Inhale 2 Univers pratropium 0-22 Puffs 4 ity of (COMBIVENT 00:00: (four) [place] INHALER) 00 times Medical 18-103 daily. Branch mcg/Actuati on inhaler albuterol-i 2009-04 2{puff} Inhale 2 [facility] pratropium 0-22 02-23 Puffs 4 ity o f (COMBIVENT 00:00: 00:00 (four) [place] INHAL[place] 00 :00 times Medical 18-103 daily. Branch mcg/Actuati on inhaler traMADOL 2009-04 Yes [id number] 50mg Take 1 Tab Univers (ULTRAM) 50 0-06 by mouth ity of mg tablet 00:00: every 6 [place] 00 (six) Medical hours as Branch needed for Pain. hydrocodone 2009-04 Yes [id number] 1{tbl} Take 1 Tab Univers -acetaminop 0-06 by mouth ity of hen (NORCO) 00:00: every 6 [place] as 10-325 mg 00 (six) Medical per tablet hours as Branc h needed for Pain. albuterol-i 2009-04 Yes [id number] 2{puff} Inhale 2 Univers pratropium 0-06 Puffs 4 ity of (COMBIVENT 00:00: (four) [place] INHALER) 00 times Medical 18-103 daily. Branch mcg/Actuati on inhaler montelukast 2009-04 Yes [id number] 10mg Take 1 Tab Univers (SINGULAIR) 0-06 by mouth ity of 10 mg 00:00: daily. [place] tablet 00 Medical Branch fluticasone 2009-04 Yes 2{spray Use 2 Un nighat (FLONASE) 0-06 } Sprays in ity o f 50 00:00: each [place] mcg/Actuati 00 nostril Medic al on nasal daily. Branch spray traMADOL 2009-04 Yes [id number] 50mg Take 1 Tab Univers (ULTRAM) 50 0-06 by mouth ity of mg tablet 00:00: every 6 [place] 00 (six) Medical hours as Branch needed for Pain. hydrocodone 2009-04 Yes [id number] 1{tbl} Take 1 Tab Univers -acetaminop 0-06 by mouth ity of hen (NORCO) 00:00: every 6 [place] as 10-325 mg 00 (six) Medical per tablet hours as Branc h needed for Pain. esomeprazol 2009-04 Yes 40mg Take 1 Cap Univers e (NEXIUM) 0-06 by mouth ity o f 40 mg 00:00: daily with [place] capsule 00 breakfast. Medica l Branch carvedilol 2009-04 Yes [id number] 25mg Take 2 Un nighat (COREG) 0-06 Tabs by ity of 12.5 mg 00:00: mouth 2 [place] tablet 00 (two) Medical times Branch daily with meals. valsartan 2009-04 Yes [id number] 320mg Take 1 Tab Univers (DIOVAN) 0-06 by mouth ity of 320 mg 00:00: daily. [place] tablet 00 Medical Branch albuterol-i 2009-04 Yes [id number] 2{puff} Inhale 2 Univers pratropium 0-06 Puffs 4 ity of (COMBIVENT 00:00: (four) [place] INHALER) 00 times Medical 18-103 daily. Branch mcg/Actuati on inhaler montelukast 2009-04 Yes [id number] 10mg Take 1 Tab Univers (SINGULAIR) 0-06 by mouth ity of 10 mg 00:00: daily. [place] tablet 00 Medical Branch metFORMIN 2009-04 Yes [id number] 500mg Take 1 Tab Univers (GLUCOPHAGE 0-06 [...] nasal daily. Branch spray traMADOL 2009-04 Yes [id number] 50mg Take 1 Tab Univers (ULTRAM) 50 0-06 by mouth ity of mg tablet 00:00: every 6 [place] 00 (six) Medical hours as Branch needed for Pain. hydrocodone 2009-04 Yes [id number] 1{tbl} Take 1 Tab Univers -acetaminop 0-06 by mouth ity of hen (NORCO) 00:00: every 6 [place] as 10-325 mg 00 (six) Medical per tablet hours as Branc h needed for Pain. albuterol-i 2009-04 Yes [id number] 2{puff} Inhale 2 Univers pratropium 0-06 Puffs 4 ity of (COMBIVENT 00:00: (four) [place] INHALER) 00 times Medical 18-103 daily. Branch mcg/Actuati on inhaler montelukast 2009-04 Yes [id number] 10mg Take 1 Tab Univers (SINGULAIR) 0-06 by mouth ity of 10 mg 00:00: daily. [place] tablet 00 Medical Branch fluticasone 2009-04 Yes 2{spray Use 2 Un nighat (FLONASE) 0-06 } Sprays in ity o f 50 00:00: each [place] mcg/Actuati 00 nostril Medic al on nasal daily. Branch spray esomeprazol 2009-04- No 40mg Take 1 Cap Univers e (NEXIUM) 0-23 by mouth ity of 40 mg 00:00: 00:00 daily with [place] capsule 00 :00 breakfast. Medica l Branch carvedilol 2009-04- No [id number] 25mg Take 2 U nivers (COREG) 0- 02-23 Tabs by ity of 12.5 mg 00:00: 00:00 mouth 2 [place] tablet 00 :00 (two) Medical times Branch daily with meals. valsartan 2009-04- No [id number] 320mg Take 1 Tab Univers (DIOVAN) 0- 02-23 by mouth ity of 320 mg 00:00: 00:00 daily. [place] tablet 00 :00 Medical Branch metFORMIN 2009-04- No [id number] 500mg Take 1 Tab Univers (GLUCOPHAGE 0-23 by mouth ity of ) 500 mg 00:00: 00:00 daily. [place] tablet 00 :00 Medical Branch loratadine 2009-04- No 10mg Take 1 Tab Univers (CLARITIN) 006-11 by mouth ity of 10 mg 00:00: 00:00 daily. [place] tablet 00 :00 Medical Branch chlorhexidi Yes Swish and U nivers ne 12-17 spit out. ity of (PERIDEX) 00:00: Mouth [place] 0.12 % Liqd 00 wash, Medical swish and Branch spit, 3 temies a day x 7 days chlorhexidi 2020- No Swish and Univers ne 12-17 spit out. ity of (PERIDEX) 00:00: 00:00 Mouth [place] 0.12 % Liqd 00 :00 wash, Medical swish and Branch spit, 3 temies a day x 7 days Immunizations Ordered Immunization Filled Immunization Date Status Commen ts Source Name Name Evita ROMEROID-Bonita 2021-04-09 Completed Vaccine 00:00:00 Evita COVID-19 2021-04-09 Completed Vaccine 00:00:00 Evita COVID-19 2021-04-09 Completed Vaccine 00:00:00 Vital Signs Vital Name Observation Time Observation Value Comments Source Systolic blood 2020-06-15 19:00:00 133 mm[Hg] Univer sity of pressure [facility] Diastolic blood 2020-06-15 19:00:00 81 mm[Hg] Unive ity of [facility] Heart rate 2020-06-15 19:00:00 71 /min [facility] Respiratory rate 2020-06-15 19:00:00 21 /min [facility] Body temperature 2020-06-15 17:24:00 35.56 Justyna [facility] Oxygen saturation in 2020-06-15 17:14:00 100 /min [facility] Arterial blood by [facility] Pulse oximetry Branch Body weight 2020-06-11 21:20:00 100.971 kg [facility] BMI 2020-06-11 21:20:00 38.21 kg/m2 [facility] Systolic blood 2020-06-15 19:00:00 133 mm[Hg] Univer sity of [facility] Diastolic blood 2020-06-15 19:00:00 81 mm[Hg] Unive rsity of pressure [facility] Heart rate 2020-06-15 19:00:00 71 /min Universi ty [facility] [place] Respiratory rate 2020-06-15 19:00:00 21 /min [facility] Body temperature 2020-06-15 17:24:00 35.56 Justyna Univ [facility] Oxygen saturation in 2020-06-15 17:14:00 100 /min [facility] Arterial blood by [facility] Pulse oximetry Branch Body weight 2020-06-11 21:20:00 100.971 kg Universi [facility] BMI 2020-06-11 21:20:00 38.21 kg/m2 [facility] BP Systolic 2022-01-13 16:30:00 BP Diastolic 2022-01-13 16:30:00 Weight Measured 2022-01-13 16:30:00 Height Measured 2022-01-13 16:30:00 Body Temperature 2022-01-13 16:30:00 Heart Rate 2022-01-13 16:30:00 Respiratory Rate 2022-01-13 16:30:00 BP Systolic 2021-12-03 17:31:00 172 mm[Hg] BP Diastolic 2021-12-03 17:31:00 93 mm[Hg] Weight Measured 2021-12-03 17:31:00 215.40 pounds Height Measured 2021-12-03 17:31:00 62.00 inches Body Temperature 2021-12-03 17:31:00 98.30 degrees Heart Rate 2021-12-03 17:31:00 96.00 /min Respiratory Rate 2021-12-03 17:31:00 17.00 /min BP Systolic 2021-10-09 14:06:00 133 mm[Hg] BP Diastolic 2021-10-09 14:06:00 75 mm[Hg] Weight Measured 2021-10-09 14:06:00 211.60 pounds Height Measured 2021-10-09 14:06:00 62.00 inches Body Temperature 2021-10-09 14:06:00 98.00 degrees Heart Rate 2021-10-09 14:06:00 95.00 /min Respiratory Rate 2021-10-09 14:06:00 18.00 /min BP Systolic 2021-09-02 09:22:00 134 mm[Hg] BP Diastolic 2021-09-02 09:22:00 82 mm[Hg] Weight Measured 2021-09-02 09:22:00 214.40 pounds Height Measured 2021-09-02 09:22:00 62.00 inches Body Temperature 2021-09-02 09:22:00 98.10 degrees Heart Rate 2021-09-02 09:22:00 101.00 /min Respiratory Rate 2021-09-02 09:22:00 17.00 /min BP Systolic 2021-08-19 08:28:00 138 mm[Hg] BP Diastolic 2021-08-19 08:28:00 84 mm[Hg] Weight Measured 2021-08-19 08:28:00 290.00 pounds Height Measured 2021-08-19 08:28:00 62.00 inches Body Temperature 2021-08-19 08:28:00 98.20 degrees Heart Rate 2021-08-19 08:28:00 99.00 /min Respiratory Rate 2021-08-19 08:28:00 17.00 /min BP Systolic 2021-08-12 11:09:00 136 mm[Hg] BP Diastolic 2021-08-12 11:09:00 88 mm[Hg] Weight Measured 2021-08-12 11:09:00 209.00 pounds Height Measured 2021-08-12 11:09:00 62.00 inches Body Temperature 2021-08-12 11:09:00 98.10 degrees Heart Rate 2021-08-12 11:09:00 100.00 /min Respiratory Rate 2021-08-12 11:09:00 17.00 /min BP Systolic 2021-07-29 11:40:00 152 mm[Hg] BP Diastolic 2021-07-29 11:40:00 78 mm[Hg] Weight Measured 2021-07-29 11:40:00 217.40 pounds Height Measured 2021-07-29 11:40:00 62.00 inches Body Temperature 2021-07-29 11:40:00 98.00 degrees Heart Rate 2021-07-29 11:40:00 103.00 /min Respiratory Rate 2021-07-29 11:40:00 17.00 /min BP Systolic 2021-04-15 08:52:00 136 mm[Hg] BP Diastolic 2021-04-15 08:52:00 95 mm[Hg] Weight Measured 2021-04-15 08:52:00 212.80 pounds Height Measured 2021-04-15 08:52:00 62.00 inches Body Temperature 2021-04-15 08:52:00 98.20 degrees Heart Rate 2021-04-15 08:52:00 94.00 /min Respiratory Rate 2021-04-15 08:52:00 16.00 /min BP Systolic 2021-03-04 08:12:00 161 mm[Hg] BP Diastolic 2021-03-04 08:12:00 96 mm[Hg] Weight Measured 2021-03-04 08:12:00 219.00 pounds Height Measured 2021-03-04 08:12:00 62.00 inches Body Temperature 2021-03-04 08:12:00 98.20 degrees Heart Rate 2021-03-04 08:12:00 105.00 /min Respiratory Rate 2021-03-04 08:12:00 16.00 /min BP Systolic 2021-02-18 08:12:00 169 mm[Hg] BP Diastolic 2021-02-18 08:12:00 77 mm[Hg] Weight Measured 2021-02-18 08:12:00 215.60 pounds Height Measured 2021-02-18 08:12:00 62.00 inches Body Temperature 2021-02-18 08:12:00 98.20 degrees Heart Rate 2021-02-18 08:12:00 120.00 /min Respiratory Rate 2021-02-18 08:12:00 16.00 /min BP Systolic 2021-01-21 13:18:00 143 mm[Hg] BP Diastolic 2021-01-21 13:18:00 80 mm[Hg] Weight Measured 2021-01-21 13:18:00 212.40 pounds Height Measured 2021-01-21 13:18:00 62.00 inches Body Temperature 2021-01-21 13:18:00 98.20 degrees Heart Rate 2021-01-21 13:18:00 96.00 /min Respiratory Rate 2021-01-21 13:18:00 17.00 /min Procedures Procedure Date / Time Performing Clinician Source Performed POCT GLUCOSE (AUTOMATED) 2020-06-15 17:39:00 Leonarda Nava [facility] BASIC METABOLIC PANEL 2020-06-15 11:05:00 [facility] [place] (NA, K, CL, CO2, GLUCOSE, Medica l Branch BUN, CREATININE, CA) CBC WITH DIFF 2020-06-15 11:05:00 Jena Davidson [facility] POCT GLUCOSE (AUTOMATED) 2020-06-15 01:31:00 Leonarda Nava [facility] POCT GLUCOSE (AUTOMATED) 2020-06-14 22:14:00 Leonarda Nava [facility] POCT GLUCOSE (AUTOMATED) 2020-06-14 17:32:00 Leonarda Nava [facility] POCT GLUCOSE (AUTOMATED) 2020-06-14 13:51:00 Leonarda Nava [facility] BASIC METABOLIC PANEL 2020-06-14 10:45:00 [facility] [place] (NA, K, CL, CO2, GLUCOSE, Medica l Branch BUN, CREATININE, CA) CBC WITH DIFF 2020-06-14 10:45:00 Jena Davidson [facility] POCT GLUCOSE (AUTOMATED) 2020-06-14 05:57:00 Leonarda Nava [facility] POCT GLUCOSE (AUTOMATED) 2020-06-14 02:04:00 Leonarda Nava [facility] POCT GLUCOSE (AUTOMATED) 2020-06-13 22:36:00 Leonarda Nava [facility] POCT GLUCOSE (AUTOMATED) 2020-06-13 17:41:00 Leonarda Nava [facility] POCT GLUCOSE (AUTOMATED) 2020-06-13 14:21:00 Leonarda Nava [facility] CT ANGIOGRAM CHEST 2020-06-13 14:17:35 Rony [facility] BASIC METABOLIC PANEL 2020-06-13 09:46:00 [facility], K, CL, CO2, GLUCOSE, Medica l Branch BUN, CREATININE, CA) CBC WITH DIFF 2020-06-13 09:46:00 Jena Davidson [facility] PREPARE PLASMA 2020-06-13 04:34:33 Reinier [facility] POCT GLUCOSE (AUTOMATED) 2020-06-12 22:57:00 Leonarda Nava [facility] NM LUNG PERFUSION ONLY 2020-06-12 18:45:00 Carlitos Ware [facility] POCT GLUCOSE (AUTOMATED) 2020-06-12 18:06:00 Leonarda Nava [facility] POCT GLUCOSE (AUTOMATED) 2020-06-12 14:07:00 Leonarda Nava [facility] ABORH CONFIRMATION 2020-06-12 09:30:00 Leonarda Nava [facility] D-DIMER 2020-06-12 09:25:00 Jena Davidson [facility] HB ABO GROUPING 2020-06-12 08:57:00 Reinier [facility] BASIC METABOLIC PANEL 2020-06-12 08:55:00 Jena Davidson [facility] (NA, K, CL, CO2, GLUCOSE, Medica l Branch BUN, CREATININE, CA) CBC WITH DIFF 2020-06-12 08:55:00 Jena Davidson [facility] POCT GLUCOSE (AUTOMATED) 2020-06-12 02:03:00 Leonarda Nava [facility] VITAMIN B12, LEVEL 2020-06-11 23:06:00 Jena Davidson [facility] VITAMIN D, 25-OH 2020-06-11 23:06:00 Jena Davidson [facility] PROCALCITONIN 2020-06-11 23:06:00 Jena Davidson [facility] IRON PANEL 2020-06-11 23:05:00 Jena Davidson [facility] POCT GLUCOSE (AUTOMATED) 2020-06-11 22:52:00 Leonarda Nava [facility] XR CHEST 1 VW 2020-06-11 17:23:51 Leonarda Nava [facility] MAGNESIUM 2020-06-11 16:46:00 Jena Davidson [facility] TROPONIN I 2020-06-11 16:46:00 Leonarda Nava [facility] THYROID STIMULATING 2020-06-11 16:46:00 Jena Davidson [facility] HORMONE [facility] HEPATIC FUNCTION PANEL 2020-06-11 16:46:00 Leonarda Nava [facility] ([id number]) (ALB,T.PRO,BILI Medical Branch T,BU/BC,ALT,AST,ALK PHOS) BASIC METABOLIC PANEL 2020-06-11 16:46:00 Leonarda Nava [facility] (NA, K, CL, CO2, GLUCOSE, Medica l Branch BUN, CREATININE, CA) CBC WITH DIFF 2020-06-11 16:46:00 Leonarda Nava [facility] GLYCOSYLATED HEMOGLOBIN 2020-06-11 16:46:00 Jena Davidson [facility] (A1C) [facility] N-TERMINAL PRO-BNP 2020-06-11 16:46:00 Jena Davidson [facility] LACTIC ACID WHOLE BLOOD 2020-06-11 16:46:00 Leonarda Nava [facility] COVID-19 (ID NOW RAPID 2020-06-11 16:46:00 Leonarda Nava [facility] TESTING) [facility] LAB ONLY COVID 2020-06-11 16:46:00 Leonarda Nava [facility] INTERPRETATION [facility] HB ECG ROUTINE & RHYTHM 2020-06-11 16:36:07 Leonarda Nava [facility] STRIP [facility] CONSENT/REFUSAL FOR 2020-06-11 16:09:15 Doctor Unassbina, [facility] DIAGNOSIS AND TREATMENT [place] [facility] NOTICE OF PRIVACY 2020-06-11 16:08:58 Doctor Elizabeth, [facility] PRACTICES [place] [facility] [place] Plan of Care Planned Activity Planned Date Details Comments Source Goal Plan of Care Note [code = 63114-3] Goal Plan of Care Note [code = 59428-1] Goal Plan of Care Note [code = 44421-4] Goal Plan of Care Note [code = 63780-6] Goal Plan of Care Note [code = 82724-8] Goal Plan of Care Note [code = 52738-9] Goal Plan of Care Note [code = 07807-0] Goal Plan of Care Note [code = 77788-8] Goal Plan of Care Note [code = 90906-8] Goal Plan of Care Note [code = 58548-5] Goal Plan of Care Note [code = 33209-2] Goal Plan of Care Note [code = 80410-5] Goal Plan of Care Note [code = 58874-1] Goal Plan of Care Note [code = 71505-7] Goal Plan of Care Note [code = 61055-1] Goal Plan of Care Note [code = 05330-7] Goal Plan of Care Note [code = 55876-2] Goal Plan of Care Note [code = 16620-5] Goal Plan of Care Note [code = 13508-5] Goal Plan of Care Note [code = 88808-1] Goal Plan of Care Note [code = 71199-8] Goal Plan of Care Note [code = 85650-6] Goal Plan of Care Note [code = 99826-8] Goal Plan of Care Note [code = 18563-6] Goal Plan of Care Note [code = 56676-5] Goal Plan of Care Note [code = 51738-6] Goal Plan of Care Note [code = 08663-8] Goal Plan of Care Note [code = 10485-7] Goal Plan of Care Note [code = 44806-3] Goal Plan of Care Note [code = 08140-7] Goal Plan of Care Note [code = 85626-1] Goal Plan of Care Note [code = 30853-5] Goal Plan of Care Note [code = 62971-2] Goal Plan of Care Note [code = 60888-5] Goal Plan of Care Note [code = 67414-3] Goal Plan of Care Note [code = 21246-2] Goal Plan of Care Note [code = 11846-1] Goal Plan of Care Note [code = 08997-1] Encounters Start End Encounter Admission Attending Care Care Encounter Source Date/Time Date/Time Type Type Clinicians Facility Department ID 2022-01-19 2022-01-19 Outpatient [facility] [id number] 12:57:51 12:57:51 [id number] F Michelet 2022-01-13 2022-01-13 Outpatient [id number] 00:00:00 00:00:00 Visit [id number] -[id number]-638 [id number] [id number] 2fec32 2021-12-17 2021-12-17 Outpatient [id number]- [id number] ee [id number] 00:00:00 00:00:00 Visit m84r-46mh [id number]-48ae-a -[id number] 2021-12-03 2021-12-03 Outpatient [id number] 00:00:00 00:00:00 Visit 4kc5-9665 ec2-4664-b -tr00-c48 [id number] [id number] 2020-06-17 2020-06-17 Transition Neeta James 1.2.840.114 [id number] 00:00:00 00:00:00 of Care Mihir Felder [id number] [place] 4.2.7.2.686 [id number] 2020-06-17 2020-06-17 Transition Neeta James 1.2.840.114 [id number] [facility] 00:00:00 00:00:00 of Care Mihir Felder [id number] ity [place] 4[place] [id number] [facility] 403 Branch 2020-06-11 2020-06-15 [facility] Leonarda Nava [facility] 1.2.84 0.114 [id number] 10:30:00 15:18:00 Encounter Carlitos Ware [place] [id number] Leonarda Nava [place] 4.2.7.2.686 Carlitos Ware [place] [id number] [facility] 2020-06-11 2020-06-15 Inpatient X RONY NMLUÍS SILVIA [id number] Univers 10:30:00 15:18:[address] [facility] 2020-06-11 2020-06-15 [facility] Leonarda Nava [facility] 1.2.84 0.114 [id number] Univers 10:30:00 15:18:00 Encounter Carlitos Ware [place] [id number] ity of Leonarda Nava [place] 4.2.7.2.686 [place] Carlitos Ware [place] [id number] [address] 2020-06-11 2020-06-11 Orders Doctor AD 1.2.840.114 [id number] 00:00:00 00:00:00 Only Unassigned, DAVID [id number] [place] [facility] 4.2.7.2.686 [id number] 2020-06-11 2020-06-11 Orders Doctor AD 1.2.840.114 [id number] [facility] 00:00:00 00:00:00 Only Unassigned, DAVID [id number] ity of [place] [facility] 4.2.7.2.686 [place] as [id number] [id number] Results Test Description Test Time Test Comments Results Result Comments Source AMYLASE 2022-01-20 06:10:48 Test Item Value Reference Range Interpretation Comme nts AMYLASE (test code = 2205) 74 U/L 28-100 [id number] 06:10:48 Test Item Value Reference Range Interpretation Comments LIPASE (test code = 2058) 18 U/L 13-60 C-REACTIVE [id number] 06:10:48 Test Item Value Reference Range Interpretation Comments C-REACTIVE PROTEIN 1.6 MG/DL <0.5 H UNLESS O THERWISE (test code = 3513) INDICATED , ALL TESTING PERFORMED [facility] [address] [place] [id number] [facility] DIRECTOR: DAVID GUALLPA M.D. CLIA NUMBER [id number] CAP ACCREDITATION N O. [id number] COMPREHENSIVE METABOLIC [id number] 05:50:31 Test Item Value Reference Range Interpretation Comments GLUCOSE (test code = 294 MG/DL 70-99 H 2216) BUN (test code = 11 MG/DL 8-23 2207) CREATININE (test 0.73 MG/DL 0.60-1.30 code = 2213) eGFR (2020 CKD-EPI) 88 ML/MIN/1.73 >60 (test code = 07192) CALC BUN/CREAT (test 15 RATIO 6-28 code = 223) SODIUM (test code = 133 MEQ/L 816-738 3288) POTASSIUM (test code 4.9 MEQ/L 3.5-5.4 = 2227) CHLORIDE (test code 94 MEQ/L 95-107 L = 2214) CARBON DIOXIDE (test 28 MEQ/L 19-31 code = 2205) CALCIUM (test code = 9.6 MG/DL 8.5-10.5 2208) PROTEIN, TOTAL (test 7.8 G/DL 6.1-8.3 code = 2228) ALBUMIN (test code = 4.3 G/DL 3.5-5.2 2200) CALC GLOBULIN (test 3.5 G/DL 1.9-3.7 code = 224) CALC A/G RATIO (test 1.2 RATIO 1.0-2.6 code = 223) BILIRUBIN, TOTAL 0.4 MG/DL See_Comment [Automated message] (test code = 2206) The syste m which generated this result transmit radha reference range : <=1.2. The refe rence range was not u sed to interpret th is result as normal/abnormal . ALKALINE PHOSPHATASE 161 U/L 40-142 H (test code = 2203) AST (test code = 45 U/L 9-40 H 2217) ALT (test code = 32 U/L 5-40 2218) SEDIMENTATION [id number] 03:50:19 Test Item Value Reference Range Interpretation Comments SEDIMENTATION RATE (test code = 13 MM/HOUR 0-20 1017) CBC W/AUTO DIFF WITH [id number] 02:37:15 Test Item Value Reference Range Interpretation Comments WBC (test code = 8.3 K/UL 3.5-11.0 1001) RBC (test code = 4.97 M/UL 3.80-5.40 1002) HEMOGLOBIN (test code 14.4 G/DL 11.5-15.5 = 1003) HEMATOCRIT (test code 41.3 % 34.0-45.0 = 1004) MCV (test code = 83.1 fL 80.0-99.0 1005) MCH (test code = 29.0 PG 25.0-33.0 1006) MCHC (test code = 34.9 G/DL 31.0-36.0 1007) RDW (test code = 13.8 % 11.5-15.0 1038) NEUTROPHILS (test 75.3 % code = 1008) LYMPHOCYTES (test 16.2 % code = 1010) MONOCYTES (test code 6.4 % = 1011) EOSINOPHILS (test 1.2 % code = 1012) BASOPHILS (test code 0.4 % = 1013) IMMATURE GRANULOCYTES 0.5 % (test code = 1036) NUCLEATED RBCS (test 0.0 /100 WBC'S See_Comment [Aut omated code = 1065) message] The sy stem which generated this result transmitted reference range : 0.0. The refere nce range was not u sed to interpret th is result as normal/abnormal . PLATELET COUNT (test 143 K/UL 130-400 code = 1015) ABSOLUTE NEUTROPHILS 6.23 K/UL 1.50-7.50 (test code = 1066) ABSOLUTE LYMPHOCYTES 1.34 K/UL 1.00-4.00 (test code = 1067) ABSOLUTE MONOCYTES 0.53 K/UL 0.20-1.00 (test code = 1068) ABSOLUTE EOSINOPHILS 0.10 K/UL 0.00-0.50 (test code = 1040) ABSOLUTE BASOPHILS 0.03 K/UL 0.00-0.20 (test code = 1069) ABS IMMATURE 0.04 K/UL 0.00-0.10 GRANULOCYTES (test code = 1020) ABS NUCLEATED RBCS 0.00 K/UL 0.00-0.11 (test code = 34283) VITAMIN D, 25 [id number] 08:57:52 Test Item Value Reference Range Interpretation Comments VITAMIN D, 25 OH 16 NG/ML SEE BELOW L NOTE: 25-H YDROXYVITAMIN D (test code = 4958) ASSAY INC LUDES 25-HYDROXYVITAM IN D2 AND D3. METHODOLOGY IS CHEMILUMINESCEN T IMMUNOASSAY. INTERPRETIVE RA NGES PEDIATRIC (<17 YEARS) . . . . . . . . . . . NG/ML 20-100ADULT: IN SUFFICIENT . . . . . . . . . . . . . . NG/ML <20 SUBOP TIMAL . . . . . . . . . . . . . . . NG/ML 20-29 OPT IMAL . . . . . . . . . . . . . . . . . NG/ML 30-100 UN LESS OTHERWISE INDIC ATED, ALL TESTING PERFORM ED ATCLINICAL PATH [facility], [facility]. [address] [place] [address] LABORATORY DIRE CTOR: Micheal XAVIER. CLIA NUMBER [id number] CAP ACCREDITATION N O. [id number] COMPREHENSIVE METABOLIC [id number] 08:43:08 Test Item Value Reference Range Interpretation Comments GLUCOSE (test code = 269 MG/DL 70-99 H 2216) BUN (test code = 11 MG/DL 8-23 2207) CREATININE (test 0.89 MG/DL 0.60-1.30 code = 2214) eGFR (2020 CKD-EPI) 70 ML/MIN/1.73 >60 (test code = 56396) CALC BUN/CREAT (test 12 RATIO 6-28 code = 2235) SODIUM (test code = 139 MEQ/L 143-483 9247) POTASSIUM (test code 4.2 MEQ/L 3.5-5.4 = 2228) CHLORIDE (test code 101 MEQ/L 95-107 = 2215) CARBON DIOXIDE (test 24 MEQ/L 19-31 code = 2206) CALCIUM (test code = 9.1 MG/DL 8.5-10.5 2208) PROTEIN, TOTAL (test 7.8 G/DL 6.1-8.3 code = 2229) ALBUMIN (test code = 4.5 G/DL 3.5-5.2 2200) CALC GLOBULIN (test 3.3 G/DL 1.9-3.7 code = 2240) CALC A/G RATIO (test 1.4 RATIO 1.0-2.6 code = 2234) BILIRUBIN, TOTAL 0.3 MG/DL See_Comment [Automated message] (test code = 2207) The syste m which generated this result transmit radha reference range : <=1.2. The refe rence range was not u sed to interpret th is result as normal/abnormal . ALKALINE PHOSPHATASE 133 U/L 40-142 (test code = 2203) AST (test code = 33 U/L 2217) ALT (test code = 18 U/L -40 2218) LIPID [id number] 08:43:08 Test Item Value Reference Range Interpretation Comments CHOLESTEROL (test 193 MG/DL <200 code = 2210) TRIGLYCERIDES (test 261 MG/DL <150 H code = 2232) HDL CHOLESTEROL (test 45 MG/DL >39 code = 2220) CALC LDL CHOL (test 111 MG/DL <100 H NOTE: C ALCULATED LDL code = 2237) IS BASED ON YIMI-VEGA METHOD WHICHINCLUDES ADJUSTABLE TRIGLYCERIDE:VL DL CHOLESTEROL RAT IO.THIS FACTOR VARIES B Y MEASURED TRIGLY CERIDE AND NON-HDLCHOL ESTEROL CONCENTRATIONS WITH INCREASED CALCU LATED LDL SEENIN HIGH ER TRIGLYCERIDE OR LOWER NON-HDL SPECIME NS. FOR MOREINFORMATION , SEE CLIENT ANNOUNCE MENT AT [email or web address] [email or web address] RATIO LDL/HDL 2.47 RATIO <3.22 (test code = 2238) HEMOGLOBIN [id number] 03:03:09 Test Item Value Reference Range Interpretation Comments HEMOGLOBIN A1c (test 9.3 % 4.2-5.6 H AMERIC AN DIABETES code = 82950) ASSOCIATION IDELINES FOR HGB A1C: PREDIABETES/INC REASED RISK . . . . . . . 5.7 -6.4% DIAGNOSIS OF DI ABETES . . . . . . . . . >=6 .5% WITH CONFIRMATION OR APPROPRIATE SYMPTOMS NOTE: ASSAY MAY BE AFFECTED BY HEMOGLOBINOPATH IES (SICKLE CELL ANEMIA, S- C DISEASE, OTHERS) OR JAIDA FICIALLY LOWERED BY DECR EASED RED CELL SURVIVAL ( HEMOLYTIC ANEMIAS, BLOOD LOSS, ETC.). CONSIDER ALTERN ATE TESTING OR LABORATORY C ONSULTATION. CBC W/AUTO DIFF WITH [id number] 02:21:47 Test Item Value Reference Range Interpretation Comments WBC (test code = 8.5 K/UL 3.5-11.0 1001) RBC (test code = 4.78 M/UL 3.80-5.40 1002) HEMOGLOBIN (test code 13.7 G/DL 11.5-15.5 = 1003) HEMATOCRIT (test code 41.8 % 34.0-45.0 = 1004) MCV (test code = 87.4 fL 80.0-99.0 1005) MCH (test code = 28.7 PG 25.0-33.0 1006) MCHC (test code = 32.8 G/DL 31.0-36.0 1007) RDW (test code = 13.9 % 11.5-15.0 1038) NEUTROPHILS (test 79.8 % code = 1008) LYMPHOCYTES (test 13.6 % code = 1010) MONOCYTES (test code 5.3 % = 1011) EOSINOPHILS (test 0.7 % code = 1012) BASOPHILS (test code 0.2 % = 1013) IMMATURE GRANULOCYTES 0.4 % (test code = 1036) NUCLEATED RBCS (test 0.0 /100 WBC'S See_Comment [Aut omated code = 1065) message] The sy stem which generated this result transmitted reference range : 0.0. The refere nce range was not u sed to interpret th is result as normal/abnormal . PLATELET COUNT (test 128 K/UL 130-400 L code = 1015) ABSOLUTE NEUTROPHILS 6.75 K/UL 1.50-7.50 (test code = 1066) ABSOLUTE LYMPHOCYTES 1.15 K/UL 1.00-4.00 (test code = 1067) ABSOLUTE MONOCYTES 0.45 K/UL 0.20-1.00 (test code = 1068) ABSOLUTE EOSINOPHILS 0.06 K/UL 0.00-0.50 (test code = 1040) ABSOLUTE BASOPHILS 0.02 K/UL 0.00-0.20 (test code = 1069) ABS IMMATURE 0.03 K/UL 0.00-0.10 GRANULOCYTES (test code = 1020) ABS NUCLEATED RBCS 0.00 K/UL 0.00-0.11 (test code = 45586) CBC W/AUTO [id number] 00:00:00 Test Item Value Reference Range Interpretation Comments WBC (test code = 1001) 8.5 K/UL RBC (test code = 1002) 4.78 M/UL HEMOGLOBIN (test code = 1003) 13.7 G/DL HEMATOCRIT (test code = 1004) 41.8 % MCV (test code = 1005) 87.4 fL MCH (test code = 1006) 28.7 PG MCHC (test code = 1007) 32.8 G/DL RDW (test code = 1038) 13.9 % NEUTROPHILS (test code = 1008) 79.8 % LYMPHOCYTES (test code = 1010) 13.6 % MONOCYTES (test code = 1011) 5.3 % EOSINOPHILS (test code = 1012) 0.7 % BASOPHILS (test code = 1013) 0.2 % IMMATURE GRANULOCYTES (test 0.4 % code = 1036) NUCLEATED RBCS (test code = 0.0 /100WBC'S 1065) PLATELET COUNT (test code = 128 K/UL 1015) ABSOLUTE NEUTROPHILS (test code 6.75 K/UL = 1066) ABSOLUTE LYMPHOCYTES (test code 1.15 K/UL = 1067) ABSOLUTE MONOCYTES (test code = 0.45 K/UL 1068) ABSOLUTE EOSINOPHILS (test code 0.06 K/UL = 1040) ABSOLUTE BASOPHILS (test code = 0.02 K/UL 1069) ABS IMMATURE GRANULOCYTES (test 0.03 K/UL code = 1020) ABS NUCLEATED RBCS (test code = 0.00 K/UL 23685) CBC W/AUTO [id number] 00:00:00 Test Item Value Reference Range Interpretation Comments WBC (test code = 1001) 8.5 K/UL RBC (test code = 1002) 4.78 M/UL HEMOGLOBIN (test code = 1003) 13.7 G/DL HEMATOCRIT (test code = 1004) 41.8 % MCV (test code = 1005) 87.4 fL MCH (test code = 1006) 28.7 PG MCHC (test code = 1007) 32.8 G/DL RDW (test code = 1038) 13.9 % NEUTROPHILS (test code = 1008) 79.8 % LYMPHOCYTES (test code = 1010) 13.6 % MONOCYTES (test code = 1011) 5.3 % EOSINOPHILS (test code = 1012) 0.7 % BASOPHILS (test code = 1013) 0.2 % IMMATURE GRANULOCYTES (test 0.4 % code = 1036) NUCLEATED RBCS (test code = 0.0 /100WBC'S 1065) PLATELET COUNT (test code = 128 K/UL 1015) ABSOLUTE NEUTROPHILS (test code 6.75 K/UL = 1066) ABSOLUTE LYMPHOCYTES (test code 1.15 K/UL = 1067) ABSOLUTE MONOCYTES (test code = 0.45 K/UL 1068) ABSOLUTE EOSINOPHILS (test code 0.06 K/UL = 1040) ABSOLUTE BASOPHILS (test code = 0.02 K/UL 1069) ABS IMMATURE GRANULOCYTES (test 0.03 K/UL code = 1020) ABS NUCLEATED RBCS (test code = 0.00 K/UL 03734) CBC W/AUTO [id number] 00:00:00 Test Item Value Reference Range Interpretation Comments WBC (test code = 1001) 8.5 K/UL RBC (test code = 1002) 4.78 M/UL HEMOGLOBIN (test code = 1003) 13.7 G/DL HEMATOCRIT (test code = 1004) 41.8 % MCV (test code = 1005) 87.4 fL MCH (test code = 1006) 28.7 PG MCHC (test code = 1007) 32.8 G/DL RDW (test code = 1038) 13.9 % NEUTROPHILS (test code = 1008) 79.8 % LYMPHOCYTES (test code = 1010) 13.6 % MONOCYTES (test code = 1011) 5.3 % EOSINOPHILS (test code = 1012) 0.7 % BASOPHILS (test code = 1013) 0.2 % IMMATURE GRANULOCYTES (test 0.4 % code = 1036) NUCLEATED RBCS (test code = 0.0 /100WBC'S 1065) PLATELET COUNT (test code = 128 K/UL 1015) ABSOLUTE NEUTROPHILS (test code 6.75 K/UL = 1066) ABSOLUTE LYMPHOCYTES (test code 1.15 K/UL = 1067) ABSOLUTE MONOCYTES (test code = 0.45 K/UL 1068) ABSOLUTE EOSINOPHILS (test code 0.06 K/UL = 1040) ABSOLUTE BASOPHILS (test code = 0.02 K/UL 1069) ABS IMMATURE GRANULOCYTES (test 0.03 K/UL code = 1020) ABS NUCLEATED RBCS (test code = 0.00 K/UL 59984) COMPREHENSIVE METABOLIC [id number] 00:00:00 Test Item Value Reference Range Interpretation Comments GLUCOSE (test code = 2217) 269 MG/DL BUN (test code = 2208) 11 MG/DL CREATININE (test code = 2214) 0.89 MG/DL eGFR (2020 CKD-EPI) (test code 70 ML/MIN/1.73 = 00619) CALC BUN/CREAT (test code = 12 RATIO 2235) SODIUM (test code = 2231) 139 MEQ/L POTASSIUM (test code = 2228) 4.2 MEQ/L CHLORIDE (test code = 2215) 101 MEQ/L CARBON DIOXIDE (test code = 24 MEQ/L 220) CALCIUM (test code = 2209) 9.1 MG/DL PROTEIN, TOTAL (test code = 7.8 G/DL 222) ALBUMIN (test code = 2201) 4.5 G/DL CALC GLOBULIN (test code = 3.3 G/DL 2240) CALC A/G RATIO (test code = 1.4 RATIO 2234) BILIRUBIN, TOTAL (test code = 0.3 MG/DL 2206) ALKALINE PHOSPHATASE (test 133 U/L code = 2204) AST (test code = 2218) 33 U/L ALT (test code = 2219) 18 U/L COMPREHENSIVE METABOLIC [id number] 00:00:00 Test Item Value Reference Range Interpretation Comments GLUCOSE (test code = 2217) 269 MG/DL BUN (test code = 2208) 11 MG/DL CREATININE (test code = 2214) 0.89 MG/DL eGFR (2020 CKD-EPI) (test code 70 ML/MIN/1.73 = 85603) CALC BUN/CREAT (test code = 12 RATIO 2235) SODIUM (test code = 2231) 139 MEQ/L POTASSIUM (test code = 2228) 4.2 MEQ/L CHLORIDE (test code = 2215) 101 MEQ/L CARBON DIOXIDE (test code = 24 MEQ/L 2205) CALCIUM (test code = 2209) 9.1 MG/DL PROTEIN, TOTAL (test code = 7.8 G/DL 2228) ALBUMIN (test code = 2201) 4.5 G/DL CALC GLOBULIN (test code = 3.3 G/DL 2240) CALC A/G RATIO (test code = 1.4 RATIO 2234) BILIRUBIN, TOTAL (test code = 0.3 MG/DL 2206) ALKALINE PHOSPHATASE (test 133 U/L code = 2204) AST (test code = 2218) 33 U/L ALT (test code = 2219) 18 U/L LIPID [id number] 00:00:00 Test Item Value Reference Range Interpretation Comments CHOLESTEROL (test code = 2210) 193 MG/DL TRIGLYCERIDES (test code = 2232) 261 MG/DL HDL CHOLESTEROL (test code = 2220) 45 MG/DL CALC LDL CHOL (test code = 2237) 111 MG/DL RISK RATIO LDL/HDL (test code = 2.47 RATIO 2238) LIPID [id number] 00:00:00 Test Item Value Reference Range Interpretation Comments CHOLESTEROL (test code = 2210) 193 MG/DL TRIGLYCERIDES (test code = 2232) 261 MG/DL HDL CHOLESTEROL (test code = 2220) 45 MG/DL CALC LDL CHOL (test code = 2237) 111 MG/DL RISK RATIO LDL/HDL (test code = 2.47 RATIO 2238) HEMOGLOBIN [id number] 00:00:00 Test Item Value Reference Range Interpretation Comments HEMOGLOBIN A1c (test code = 54660) 9.3 % HEMOGLOBIN [id number] 00:00:00 Test Item Value Reference Range Interpretation Comments HEMOGLOBIN A1c (test code = 81500) 9.3 % HEMOGLOBIN [id number] 00:00:00 Test Item Value Reference Range Interpretation Comments HEMOGLOBIN A1c (test code = 65594) 9.3 % VITAMIN D, 25 [id number] 00:00:00 Test Item Value Reference Range Interpretation Comments VITAMIN D, 25 OH (test code = 4958) 16 NG/ML VITAMIN D, 25 [id number] 00:00:00 Test Item Value Reference Range Interpretation Comments VITAMIN D, 25 OH (test code = 4958) 16 NG/ML CBC W/AUTO [id number] 00:00:00 Test Item Value Reference Range Interpretation Comments WBC (test code = 1001) 8.5 K/UL RBC (test code = 1002) 4.78 M/UL HEMOGLOBIN (test code = 1003) 13.7 G/DL HEMATOCRIT (test code = 1004) 41.8 % MCV (test code = 1005) 87.4 fL MCH (test code = 1006) 28.7 PG MCHC (test code = 1007) 32.8 G/DL RDW (test code = 1038) 13.9 % NEUTROPHILS (test code = 1008) 79.8 % LYMPHOCYTES (test code = 1010) 13.6 % MONOCYTES (test code = 1011) 5.3 % EOSINOPHILS (test code = 1012) 0.7 % BASOPHILS (test code = 1013) 0.2 % IMMATURE GRANULOCYTES (test 0.4 % code = 1036) NUCLEATED RBCS (test code = 0.0 /100WBC'S 1065) PLATELET COUNT (test code = 128 K/UL 1015) ABSOLUTE NEUTROPHILS (test code 6.75 K/UL = 1066) ABSOLUTE LYMPHOCYTES (test code 1.15 K/UL = 1067) ABSOLUTE MONOCYTES (test code = 0.45 K/UL 1068) ABSOLUTE EOSINOPHILS (test code 0.06 K/UL = 1040) ABSOLUTE BASOPHILS (test code = 0.02 K/UL 1069) ABS IMMATURE GRANULOCYTES (test 0.03 K/UL code = 1020) ABS NUCLEATED RBCS (test code = 0.00 K/UL 91161) CBC W/AUTO [id number] 00:00:00 Test Item Value Reference Range Interpretation Comments WBC (test code = 1001) 8.5 K/UL RBC (test code = 1002) 4.78 M/UL HEMOGLOBIN (test code = 1003) 13.7 G/DL HEMATOCRIT (test code = 1004) 41.8 % MCV (test code = 1005) 87.4 fL MCH (test code = 1006) 28.7 PG MCHC (test code = 1007) 32.8 G/DL RDW (test code = 1038) 13.9 % NEUTROPHILS (test code = 1008) 79.8 % LYMPHOCYTES (test code = 1010) 13.6 % MONOCYTES (test code = 1011) 5.3 % EOSINOPHILS (test code = 1012) 0.7 % BASOPHILS (test code = 1013) 0.2 % IMMATURE GRANULOCYTES (test 0.4 % code = 1036) NUCLEATED RBCS (test code = 0.0 /100WBC'S 1065) PLATELET COUNT (test code = 128 K/UL 1015) ABSOLUTE NEUTROPHILS (test code 6.75 K/UL = 1066) ABSOLUTE LYMPHOCYTES (test code 1.15 K/UL = 1067) ABSOLUTE MONOCYTES (test code = 0.45 K/UL 1068) ABSOLUTE EOSINOPHILS (test code 0.06 K/UL = 1040) ABSOLUTE BASOPHILS (test code = 0.02 K/UL 1069) ABS IMMATURE GRANULOCYTES (test 0.03 K/UL code = 1020) ABS NUCLEATED RBCS (test code = 0.00 K/UL 02345) CBC W/AUTO [id number] 00:00:00 Test Item Value Reference Range Interpretation Comments WBC (test code = 1001) 8.5 K/UL RBC (test code = 1002) 4.78 M/UL HEMOGLOBIN (test code = 1003) 13.7 G/DL HEMATOCRIT (test code = 1004) 41.8 % MCV (test code = 1005) 87.4 fL MCH (test code = 1006) 28.7 PG MCHC (test code = 1007) 32.8 G/DL RDW (test code = 1038) 13.9 % NEUTROPHILS (test code = 1008) 79.8 % LYMPHOCYTES (test code = 1010) 13.6 % MONOCYTES (test code = 1011) 5.3 % EOSINOPHILS (test code = 1012) 0.7 % BASOPHILS (test code = 1013) 0.2 % IMMATURE GRANULOCYTES (test 0.4 % code = 1036) NUCLEATED RBCS (test code = 0.0 /100WBC'S 1065) PLATELET COUNT (test code = 128 K/UL 1015) ABSOLUTE NEUTROPHILS (test code 6.75 K/UL = 1066) ABSOLUTE LYMPHOCYTES (test code 1.15 K/UL = 1067) ABSOLUTE MONOCYTES (test code = 0.45 K/UL 1068) ABSOLUTE EOSINOPHILS (test code 0.06 K/UL = 1040) ABSOLUTE BASOPHILS (test code = 0.02 K/UL 1069) ABS IMMATURE GRANULOCYTES (test 0.03 K/UL code = 1020) ABS NUCLEATED RBCS (test code = 0.00 K/UL 82635) COMPREHENSIVE METABOLIC [id number] 00:00:00 Test Item Value Reference Range Interpretation Comments GLUCOSE (test code = 2217) 269 MG/DL BUN (test code = 2208) 11 MG/DL CREATININE (test code = 2214) 0.89 MG/DL eGFR (2020 CKD-EPI) (test code 70 ML/MIN/1.73 = 29107) CALC BUN/CREAT (test code = 12 RATIO 2235) SODIUM (test code = 2231) 139 MEQ/L POTASSIUM (test code = 2228) 4.2 MEQ/L CHLORIDE (test code = 2215) 101 MEQ/L CARBON DIOXIDE (test code = 24 MEQ/L 2205) CALCIUM (test code = 2209) 9.1 MG/DL PROTEIN, TOTAL (test code = 7.8 G/DL 2228) ALBUMIN (test code = 2201) 4.5 G/DL CALC GLOBULIN (test code = 3.3 G/DL 2240) CALC A/G RATIO (test code = 1.4 RATIO 2234) BILIRUBIN, TOTAL (test code = 0.3 MG/DL 2206) ALKALINE PHOSPHATASE (test 133 U/L code = 2204) AST (test code = 2218) 33 U/L ALT (test code = 2219) 18 U/L COMPREHENSIVE METABOLIC [id number] 00:00:00 Test Item Value Reference Range Interpretation Comments GLUCOSE (test code = 2217) 269 MG/DL BUN (test code = 2208) 11 MG/DL CREATININE (test code = 2214) 0.89 MG/DL eGFR (2020 CKD-EPI) (test code 70 ML/MIN/1.73 = 24948) CALC BUN/CREAT (test code = 12 RATIO 2235) SODIUM (test code = 2231) 139 MEQ/L POTASSIUM (test code = 2228) 4.2 MEQ/L CHLORIDE (test code = 2215) 101 MEQ/L CARBON DIOXIDE (test code = 24 MEQ/L 2205) CALCIUM (test code = 2209) 9.1 MG/DL PROTEIN, TOTAL (test code = 7.8 G/DL 2228) ALBUMIN (test code = 2201) 4.5 G/DL CALC GLOBULIN (test code = 3.3 G/DL 2240) CALC A/G RATIO (test code = 1.4 RATIO 2234) BILIRUBIN, TOTAL (test code = 0.3 MG/DL 2206) ALKALINE PHOSPHATASE (test 133 U/L code = 2204) AST (test code = 2218) 33 U/L ALT (test code = 2219) 18 U/L LIPID [id number] 00:00:00 Test Item Value Reference Range Interpretation Comments CHOLESTEROL (test code = 2210) 193 MG/DL TRIGLYCERIDES (test code = 2232) 261 MG/DL HDL CHOLESTEROL (test code = 2220) 45 MG/DL CALC LDL CHOL (test code = 2237) 111 MG/DL RISK RATIO LDL/HDL (test code = 2.47 RATIO 2238) LIPID [id number] 00:00:00 Test Item Value Reference Range Interpretation Comments CHOLESTEROL (test code = 2210) 193 MG/DL TRIGLYCERIDES (test code = 2232) 261 MG/DL HDL CHOLESTEROL (test code = 2220) 45 MG/DL CALC LDL CHOL (test code = 2237) 111 MG/DL RISK RATIO LDL/HDL (test code = 2.47 RATIO 2238) HEMOGLOBIN [id number] 00:00:00 Test Item Value Reference Range Interpretation Comments HEMOGLOBIN A1c (test code = 76627) 9.3 % HEMOGLOBIN [id number] 00:00:00 Test Item Value Reference Range Interpretation Comments HEMOGLOBIN A1c (test code = 09814) 9.3 % HEMOGLOBIN [id number] 00:00:00 Test Item Value Reference Range Interpretation Comments HEMOGLOBIN A1c (test code = 72540) 9.3 % VITAMIN D, 25 [id number] 00:00:00 Test Item Value Reference Range Interpretation Comments VITAMIN D, 25 OH (test code = 4958) 16 NG/ML VITAMIN D, 25 [id number] 00:00:00 Test Item Value Reference Range Interpretation Comments VITAMIN D, 25 OH (test code = 4958) 16 NG/ML CBC W/AUTO [id number] 00:00:00 Test Item Value Reference Range Interpretation Comments WBC (test code = 1001) 8.5 K/UL RBC (test code = 1002) 4.78 M/UL HEMOGLOBIN (test code = 1003) 13.7 G/DL HEMATOCRIT (test code = 1004) 41.8 % MCV (test code = 1005) 87.4 fL MCH (test code = 1006) 28.7 PG MCHC (test code = 1007) 32.8 G/DL RDW (test code = 1038) 13.9 % NEUTROPHILS (test code = 1008) 79.8 % LYMPHOCYTES (test code = 1010) 13.6 % MONOCYTES (test code = 1011) 5.3 % EOSINOPHILS (test code = 1012) 0.7 % BASOPHILS (test code = 1013) 0.2 % IMMATURE GRANULOCYTES (test 0.4 % code = 1036) NUCLEATED RBCS (test code = 0.0 /100WBC'S 1065) PLATELET COUNT (test code = 128 K/UL 1015) ABSOLUTE NEUTROPHILS (test code 6.75 K/UL = 1066) ABSOLUTE LYMPHOCYTES (test code 1.15 K/UL = 1067) ABSOLUTE MONOCYTES (test code = 0.45 K/UL 1068) ABSOLUTE EOSINOPHILS (test code 0.06 K/UL = 1040) ABSOLUTE BASOPHILS (test code = 0.02 K/UL 1069) ABS IMMATURE GRANULOCYTES (test 0.03 K/UL code = 1020) ABS NUCLEATED RBCS (test code = 0.00 K/UL 55388) CBC W/AUTO [id number] 00:00:00 Test Item Value Reference Range Interpretation Comments WBC (test code = 1001) 8.5 K/UL RBC (test code = 1002) 4.78 M/UL HEMOGLOBIN (test code = 1003) 13.7 G/DL HEMATOCRIT (test code = 1004) 41.8 % MCV (test code = 1005) 87.4 fL MCH (test code = 1006) 28.7 PG MCHC (test code = 1007) 32.8 G/DL RDW (test code = 1038) 13.9 % NEUTROPHILS (test code = 1008) 79.8 % LYMPHOCYTES (test code = 1010) 13.6 % MONOCYTES (test code = 1011) 5.3 % EOSINOPHILS (test code = 1012) 0.7 % BASOPHILS (test code = 1013) 0.2 % IMMATURE GRANULOCYTES (test 0.4 % code = 1036) NUCLEATED RBCS (test code = 0.0 /100WBC'S 1065) PLATELET COUNT (test code = 128 K/UL 1015) ABSOLUTE NEUTROPHILS (test code 6.75 K/UL = 1066) ABSOLUTE LYMPHOCYTES (test code 1.15 K/UL = 1067) ABSOLUTE MONOCYTES (test code = 0.45 K/UL 1068) ABSOLUTE EOSINOPHILS (test code 0.06 K/UL = 1040) ABSOLUTE BASOPHILS (test code = 0.02 K/UL 1069) ABS IMMATURE GRANULOCYTES (test 0.03 K/UL code = 1020) ABS NUCLEATED RBCS (test code = 0.00 K/UL 79605) CBC W/AUTO [id number] 00:00:00 Test Item Value Reference Range Interpretation Comments WBC (test code = 1001) 8.5 K/UL RBC (test code = 1002) 4.78 M/UL HEMOGLOBIN (test code = 1003) 13.7 G/DL HEMATOCRIT (test code = 1004) 41.8 % MCV (test code = 1005) 87.4 fL MCH (test code = 1006) 28.7 PG MCHC (test code = 1007) 32.8 G/DL RDW (test code = 1038) 13.9 % NEUTROPHILS (test code = 1008) 79.8 % LYMPHOCYTES (test code = 1010) 13.6 % MONOCYTES (test code = 1011) 5.3 % EOSINOPHILS (test code = 1012) 0.7 % BASOPHILS (test code = 1013) 0.2 % IMMATURE GRANULOCYTES (test 0.4 % code = 1036) NUCLEATED RBCS (test code = 0.0 /100WBC'S 1065) PLATELET COUNT (test code = 128 K/UL 1015) ABSOLUTE NEUTROPHILS (test code 6.75 K/UL = 1066) ABSOLUTE LYMPHOCYTES (test code 1.15 K/UL = 1067) ABSOLUTE MONOCYTES (test code = 0.45 K/UL 1068) ABSOLUTE EOSINOPHILS (test code 0.06 K/UL = 1040) ABSOLUTE BASOPHILS (test code = 0.02 K/UL 1069) ABS IMMATURE GRANULOCYTES (test 0.03 K/UL code = 1020) ABS NUCLEATED RBCS (test code = 0.00 K/UL 99478) COMPREHENSIVE METABOLIC [id number] 00:00:00 Test Item Value Reference Range Interpretation Comments GLUCOSE (test code = 2217) 269 MG/DL BUN (test code = 2208) 11 MG/DL CREATININE (test code = 2214) 0.89 MG/DL eGFR (2020 CKD-EPI) (test code 70 ML/MIN/1.73 = 19679) CALC BUN/CREAT (test code = 12 RATIO 2235) SODIUM (test code = 2231) 139 MEQ/L POTASSIUM (test code = 2228) 4.2 MEQ/L CHLORIDE (test code = 2215) 101 MEQ/L CARBON DIOXIDE (test code = 24 MEQ/L 2205) CALCIUM (test code = 2209) 9.1 MG/DL PROTEIN, TOTAL (test code = 7.8 G/DL 2228) ALBUMIN (test code = 2201) 4.5 G/DL CALC GLOBULIN (test code = 3.3 G/DL 2240) CALC A/G RATIO (test code = 1.4 RATIO 2234) BILIRUBIN, TOTAL (test code = 0.3 MG/DL 2206) ALKALINE PHOSPHATASE (test 133 U/L code = 2204) AST (test code = 2218) 33 U/L ALT (test code = 2219) 18 U/L COMPREHENSIVE METABOLIC [id number] 00:00:00 Test Item Value Reference Range Interpretation Comments GLUCOSE (test code = 2217) 269 MG/DL BUN (test code = 2208) 11 MG/DL CREATININE (test code = 2214) 0.89 MG/DL eGFR (2020 CKD-EPI) (test code 70 ML/MIN/1.73 = 12832) CALC BUN/CREAT (test code = 12 RATIO 2235) SODIUM (test code = 2231) 139 MEQ/L POTASSIUM (test code = 2228) 4.2 MEQ/L CHLORIDE (test code = 2215) 101 MEQ/L CARBON DIOXIDE (test code = 24 MEQ/L 2205) CALCIUM (test code = 2209) 9.1 MG/DL PROTEIN, TOTAL (test code = 7.8 G/DL 2228) ALBUMIN (test code = 2201) 4.5 G/DL CALC GLOBULIN (test code = 3.3 G/DL 2239) CALC A/G RATIO (test code = 1.4 RATIO 2233) BILIRUBIN, TOTAL (test code = 0.3 MG/DL 2206) ALKALINE PHOSPHATASE (test 133 U/L code = 2204) AST (test code = 2218) 33 U/L ALT (test code = 2219) 18 U/L LIPID [id number] 00:00:00 Test Item Value Reference Range Interpretation Comments CHOLESTEROL (test code = 2210) 193 MG/DL TRIGLYCERIDES (test code = 2232) 261 MG/DL HDL CHOLESTEROL (test code = 2220) 45 MG/DL CALC LDL CHOL (test code = 2237) 111 MG/DL RISK RATIO LDL/HDL (test code = 2.47 RATIO 2238) LIPID [id number] 00:00:00 Test Item Value Reference Range Interpretation Comments CHOLESTEROL (test code = 2210) 193 MG/DL TRIGLYCERIDES (test code = 2232) 261 MG/DL HDL CHOLESTEROL (test code = 2220) 45 MG/DL CALC LDL CHOL (test code = 2237) 111 MG/DL RISK RATIO LDL/HDL (test code = 2.47 RATIO 2238) HEMOGLOBIN [id number] 00:00:00 Test Item Value Reference Range Interpretation Comments HEMOGLOBIN A1c (test code = 97033) 9.3 % HEMOGLOBIN [id number] 00:00:00 Test Item Value Reference Range Interpretation Comments HEMOGLOBIN A1c (test code = 96040) 9.3 % HEMOGLOBIN [id number] 00:00:00 Test Item Value Reference Range Interpretation Comments HEMOGLOBIN A1c (test code = 60865) 9.3 % VITAMIN D, 25 [id number] 00:00:00 Test Item Value Reference Range Interpretation Comments VITAMIN D, 25 OH (test code = 4958) 16 NG/ML VITAMIN D, 25 [id number] 00:00:00 Test Item Value Reference Range Interpretation Comments VITAMIN D, 25 OH (test code = 4958) 16 NG/ML COMPREHENSIVE METABOLIC [id number] 05:43:08 Test Item Value Reference Range Interpretation Comments GLUCOSE (test code = 117 MG/DL 70-99 H 2216) BUN (test code = 16 MG/DL 8-23 2207) CREATININE (test 0.77 MG/DL 0.60-1.30 code = 2214) eGFR (2020 CKD-EPI) 83 ML/MIN/1.73 >60 (test code = 17354) CALC BUN/CREAT (test 21 RATIO 6-28 code = 2235) SODIUM (test code = 142 MEQ/L 549-042 1785) POTASSIUM (test code 4.4 MEQ/L 3.5-5.4 = 2227) CHLORIDE (test code 105 MEQ/L 95-107 = 221) CARBON DIOXIDE (test 17 MEQ/L 19-31 L code = 2206) CALCIUM (test code = 9.6 MG/DL 8.5-10.5 2208) PROTEIN, TOTAL (test 8.2 G/DL 6.1-8.3 code = 2229) ALBUMIN (test code = 4.5 G/DL 3.5-5.2 2200) CALC GLOBULIN (test 3.7 G/DL 1.9-3.7 code = 2240) CALC A/G RATIO (test 1.2 RATIO 1.0-2.6 code = 2234) BILIRUBIN, TOTAL 0.4 MG/DL See_Comment [Automated message] (test code = 2207) The syste m which generated this result transmit radha reference range : <=1.2. The refe rence range was not u sed to interpret th is result as normal/abnormal . ALKALINE PHOSPHATASE 113 U/L 40-142 (test code = 2204) AST (test code = 39 U/L 9-40 2217) ALT (test code = 18 U/L 5-40 2218) LIPID [id number] 05:43:08 Test Item Value Reference Range Interpretation [...] MOREINFORMATION , SEE CLIENT ANNOUNCE MENT AT [email or web address] LDL/HDL 2.69 RATIO <3.22 (test code = 2237) HEMOGLOBIN [id number] 03:36:34 Test Item Value Reference Range Interpretation Comments HEMOGLOBIN A1c (test 8.2 % 4.2-5.6 H [employer] AN DIABETES code = 45491) ASSOCIATION [employer]LIN[employer] FOR HGB A1C: PREDIABETES/INC REASED RISK . . . . . . . 5.7 -6.4% DIAGNOSIS OF DI ABETES . . . . . . . . . >=6 .5% WITH CONFIRMATION OR APPROPRIATE SYMPTOMS NOTE: ASSAY MAY BE AFFECTED BY HEMOGLOBINOPATH IES (SICKLE CELL ANEMIA, S- C DISEASE, OTHERS) OR JAIDA FICIALLY LOWERED BY DECR EASED RED CELL SURVIVAL ( HEMOLYTIC ANEMIAS, BLOOD LOSS, ETC.). CONSIDER ALTERN ATE TESTING OR LABORATORY C ONSULTATION. CBC W/AUTO DIFF WITH [id number] 03:15:01 Test Item Value Reference Range Interpretation [...] message] code = 1065) WBC'S The system [employer] generated this result transmitted ref erence range: [...] 1020) ABS NUCLEATED RBCS 0.00 K/UL 0.00-0.11 UNLESS O THERWISE (test code = 07492) INDICATE D, ALL TESTING PERFORM ED [facility], I MD. [address] [place], [place] [id number] [place] [address] DIRECTOR: DAVID GUALLPA M.D. CLIA NUMBER [id number] CAP ACCREDITATION N O. [id number] HEMOGLOBIN [id number] 00:00:00 Test Item Value Reference Range Interpretation Comments HEMOGLOBIN A1c (test code = 16963) 8.2 % HEMOGLOBIN [id number] 00:00:00 Test Item Value Reference Range Interpretation Comments HEMOGLOBIN A1c (test code = 09425) 8.2 % HEMOGLOBIN [id number] 00:00:00 Test Item Value Reference Range Interpretation Comments HEMOGLOBIN A1c (test code = 45685) 8.2 % COMPREHENSIVE METABOLIC [id number] 00:00:00 Test Item Value Reference Range Interpretation Comments GLUCOSE (test code = 2217) 117 MG/DL BUN (test code = 2208) 16 MG/DL CREATININE (test code = 2214) 0.77 MG/DL eGFR (2020 CKD-EPI) (test code 83 ML/MIN/1.73 = 20466) CALC BUN/CREAT (test code = 21 RATIO 2235) SODIUM (test code = 2231) 142 MEQ/L POTASSIUM (test code = 2228) 4.4 MEQ/L CHLORIDE (test code = 2215) 105 MEQ/L CARBON DIOXIDE (test code = 17 MEQ/L 2205) CALCIUM (test code = 2209) 9.6 MG/DL PROTEIN, TOTAL (test code = 8.2 G/DL 2228) ALBUMIN (test code = 2201) 4.5 G/DL CALC GLOBULIN (test code = 3.7 G/DL 0) CALC A/G RATIO (test code = 1.2 RATIO 4) BILIRUBIN, TOTAL (test code = 0.4 MG/DL 2206) ALKALINE PHOSPHATASE (test 113 U/L code = 2204) AST (test code = 2218) 39 U/L ALT (test code = 2219) 18 U/L COMPREHENSIVE METABOLIC [id number] 00:00:00 Test Item Value Reference Range Interpretation Comments GLUCOSE (test code = 2217) 117 MG/DL BUN (test code = 2208) 16 MG/DL CREATININE (test code = 2214) 0.77 MG/DL eGFR (2020 CKD-EPI) (test code 83 ML/MIN/1.73 = 38616) CALC BUN/CREAT (test code = 21 RATIO 2235) SODIUM (test code = 2231) 142 MEQ/L POTASSIUM (test code = 2228) 4.4 MEQ/L CHLORIDE (test code = 2215) 105 MEQ/L CARBON DIOXIDE (test code = 17 MEQ/L 2205) CALCIUM (test code = 2209) 9.6 MG/DL PROTEIN, TOTAL (test code = 8.2 G/DL 2228) ALBUMIN (test code = 2201) 4.5 G/DL CALC GLOBULIN (test code = 3.7 G/DL 2240) CALC A/G RATIO (test code = 1.2 RATIO 2234) BILIRUBIN, TOTAL (test code = 0.4 MG/DL 2206) ALKALINE PHOSPHATASE (test 113 U/L code = 2204) AST (test code = 2218) 39 U/L ALT (test code = 2219) 18 U/L LIPID [id number] 00:00:00 Test Item Value Reference Range Interpretation Comments CHOLESTEROL (test code = 2210) 180 MG/DL TRIGLYCERIDES (test code = 2232) 142 MG/DL HDL CHOLESTEROL (test code = 2220) 42 MG/DL CALC LDL CHOL (test code = 2237) 113 MG/DL RISK RATIO LDL/HDL (test code = 2.69 RATIO 2238) LIPID [id number] 00:00:00 Test Item Value Reference Range Interpretation Comments CHOLESTEROL (test code = 2210) 180 MG/DL TRIGLYCERIDES (test code = 2232) 142 MG/DL HDL CHOLESTEROL (test code = 2220) 42 MG/DL CALC LDL CHOL (test code = 2237) 113 MG/DL RISK RATIO LDL/HDL (test code = 2.69 RATIO 2238) CBC W/AUTO [id number] 00:00:00 Test Item Value Reference Range Interpretation Comments WBC (test code = 1001) 6.8 K/UL RBC (test code = 1002) 4.73 M/UL HEMOGLOBIN (test code = 1003) 13.7 G/DL HEMATOCRIT (test code = 1004) 39.9 % MCV (test code = 1005) 84.4 fL MCH (test code = 1006) 29.0 PG MCHC (test code = 1007) 34.3 G/DL RDW (test code = 1038) 14.4 % NEUTROPHILS (test code = 1008) 75.2 % LYMPHOCYTES (test code = 1010) 16.6 % MONOCYTES (test code = 1011) 6.8 % EOSINOPHILS (test code = 1012) 0.7 % BASOPHILS (test code = 1013) 0.4 % IMMATURE GRANULOCYTES (test 0.3 % code = 1036) NUCLEATED RBCS (test code = 0.0 /100WBC'S 1065) PLATELET COUNT (test code = 126 K/UL 1015) ABSOLUTE NEUTROPHILS (test code 5.12 K/UL = 1066) ABSOLUTE LYMPHOCYTES (test code 1.13 K/UL = 1067) ABSOLUTE MONOCYTES (test code = 0.46 K/UL 1068) ABSOLUTE EOSINOPHILS (test code 0.05 K/UL = 1040) ABSOLUTE BASOPHILS (test code = 0.03 K/UL 1069) ABS IMMATURE GRANULOCYTES (test 0.02 K/UL code = 1020) ABS NUCLEATED RBCS (test code = 0.00 K/UL 53097) CBC W/AUTO [id number] 00:00:00 Test Item Value Reference Range Interpretation Comments WBC (test code = 1001) 6.8 K/UL RBC (test code = 1002) 4.73 M/UL HEMOGLOBIN (test code = 1003) 13.7 G/DL HEMATOCRIT (test code = 1004) 39.9 % MCV (test code = 1005) 84.4 fL MCH (test code = 1006) 29.0 PG MCHC (test code = 1007) 34.3 G/DL RDW (test code = 1038) 14.4 % NEUTROPHILS (test code = 1008) 75.2 % LYMPHOCYTES (test code = 1010) 16.6 % MONOCYTES (test code = 1011) 6.8 % EOSINOPHILS (test code = 1012) 0.7 % BASOPHILS (test code = 1013) 0.4 % IMMATURE GRANULOCYTES (test 0.3 % code = 1036) NUCLEATED RBCS (test code = 0.0 /100WBC'S 1065) PLATELET COUNT (test code = 126 K/UL 1015) ABSOLUTE NEUTROPHILS (test code 5.12 K/UL = 1066) ABSOLUTE LYMPHOCYTES (test code 1.13 K/UL = 1067) ABSOLUTE MONOCYTES (test code = 0.46 K/UL 1068) ABSOLUTE EOSINOPHILS (test code 0.05 K/UL = 1040) ABSOLUTE BASOPHILS (test code = 0.03 K/UL 1069) ABS IMMATURE GRANULOCYTES (test 0.02 K/UL code = 1020) ABS NUCLEATED RBCS (test code = 0.00 K/UL 96456) CBC W/AUTO [id number] 00:00:00 Test Item Value Reference Range Interpretation Comments WBC (test code = 1001) 6.8 K/UL RBC (test code = 1002) 4.73 M/UL HEMOGLOBIN (test code = 1003) 13.7 G/DL HEMATOCRIT (test code = 1004) 39.9 % MCV (test code = 1005) 84.4 fL MCH (test code = 1006) 29.0 PG MCHC (test code = 1007) 34.3 G/DL RDW (test code = 1038) 14.4 % NEUTROPHILS (test code = 1008) 75.2 % LYMPHOCYTES (test code = 1010) 16.6 % MONOCYTES (test code = 1011) 6.8 % EOSINOPHILS (test code = 1012) 0.7 % BASOPHILS (test code = 1013) 0.4 % IMMATURE GRANULOCYTES (test 0.3 % code = 1036) NUCLEATED RBCS (test code = 0.0 /100WBC'S 1065) PLATELET COUNT (test code = 126 K/UL 1015) ABSOLUTE NEUTROPHILS (test code 5.12 K/UL = 1066) ABSOLUTE LYMPHOCYTES (test code 1.13 K/UL = 1067) ABSOLUTE MONOCYTES (test code = 0.46 K/UL 1068) ABSOLUTE EOSINOPHILS (test code 0.05 K/UL = 1040) ABSOLUTE BASOPHILS (test code = 0.03 K/UL 1069) ABS IMMATURE GRANULOCYTES (test 0.02 K/UL code = 1020) ABS NUCLEATED RBCS (test code = 0.00 K/UL 32048) HEMOGLOBIN [id number] 00:00:00 Test Item Value Reference Range Interpretation Comments HEMOGLOBIN A1c (test code = 89806) 8.2 % HEMOGLOBIN [id number] 00:00:00 Test Item Value Reference Range Interpretation Comments HEMOGLOBIN A1c (test code = 42696) 8.2 % HEMOGLOBIN [id number] 00:00:00 Test Item Value Reference Range Interpretation Comments HEMOGLOBIN A1c (test code = 46614) 8.2 % COMPREHENSIVE METABOLIC [id number] 00:00:00 Test Item Value Reference Range Interpretation Comments GLUCOSE (test code = 2217) 117 MG/DL BUN (test code = 2208) 16 MG/DL CREATININE (test code = 2214) 0.77 MG/DL eGFR (2020 CKD-EPI) (test code 83 ML/MIN/1.73 = 89274) CALC BUN/CREAT (test code = 21 RATIO 2235) SODIUM (test code = 2231) 142 MEQ/L POTASSIUM (test code = 2228) 4.4 MEQ/L CHLORIDE (test code = 2215) 105 MEQ/L CARBON DIOXIDE (test code = 17 MEQ/L 220) CALCIUM (test code = 2209) 9.6 MG/DL PROTEIN, TOTAL (test code = 8.2 G/DL 2228) ALBUMIN (test code = 2201) 4.5 G/DL CALC GLOBULIN (test code = 3.7 G/DL 2240) CALC A/G RATIO (test code = 1.2 RATIO 2234) BILIRUBIN, TOTAL (test code = 0.4 MG/DL 2206) ALKALINE PHOSPHATASE (test 113 U/L code = 2204) AST (test code = 2218) 39 U/L ALT (test code = 2219) 18 U/L COMPREHENSIVE METABOLIC [id number] 00:00:00 Test Item Value Reference Range Interpretation Comments GLUCOSE (test code = 2217) 117 MG/DL BUN (test code = 2208) 16 MG/DL CREATININE (test code = 2214) 0.77 MG/DL eGFR (2020 CKD-EPI) (test code 83 ML/MIN/1.73 = 93718) CALC BUN/CREAT (test code = 21 RATIO 2235) SODIUM (test code = 2231) 142 MEQ/L POTASSIUM (test code = 2228) 4.4 MEQ/L CHLORIDE (test code = 2215) 105 MEQ/L CARBON DIOXIDE (test code = 17 MEQ/L 2205) CALCIUM (test code = 2209) 9.6 MG/DL PROTEIN, TOTAL (test code = 8.2 G/DL 2228) ALBUMIN (test code = 2201) 4.5 G/DL CALC GLOBULIN (test code = 3.7 G/DL 2240) CALC A/G RATIO (test code = 1.2 RATIO 2234) BILIRUBIN, TOTAL (test code = 0.4 MG/DL 2206) ALKALINE PHOSPHATASE (test 113 U/L code = 2204) AST (test code = 2218) 39 U/L ALT (test code = 2219) 18 U/L LIPID [id number] 00:00:00 Test Item Value Reference Range Interpretation Comments CHOLESTEROL (test code = 2210) 180 MG/DL TRIGLYCERIDES (test code = 2232) 142 MG/DL HDL CHOLESTEROL (test code = 2220) 42 MG/DL CALC LDL CHOL (test code = 2237) 113 MG/DL RISK RATIO LDL/HDL (test code = 2.69 RATIO 2238) LIPID [id number] 00:00:00 Test Item Value Reference Range Interpretation Comments CHOLESTEROL (test code = 2210) 180 MG/DL TRIGLYCERIDES (test code = 2232) 142 MG/DL HDL CHOLESTEROL (test code = 2220) 42 MG/DL CALC LDL CHOL (test code = 2237) 113 MG/DL RISK RATIO LDL/HDL (test code = 2.69 RATIO 2238) CBC W/AUTO [id number] 00:00:00 Test Item Value Reference Range Interpretation Comments WBC (test code = 1001) 6.8 K/UL RBC (test code = 1002) 4.73 M/UL HEMOGLOBIN (test code = 1003) 13.7 G/DL HEMATOCRIT (test code = 1004) 39.9 % MCV (test code = 1005) 84.4 fL MCH (test code = 1006) 29.0 PG MCHC (test code = 1007) 34.3 G/DL RDW (test code = 1038) 14.4 % NEUTROPHILS (test code = 1008) 75.2 % LYMPHOCYTES (test code = 1010) 16.6 % MONOCYTES (test code = 1011) 6.8 % EOSINOPHILS (test code = 1012) 0.7 % BASOPHILS (test code = 1013) 0.4 % IMMATURE GRANULOCYTES (test 0.3 % code = 1036) NUCLEATED RBCS (test code = 0.0 /100WBC'S 1065) PLATELET COUNT (test code = 126 K/UL 1015) ABSOLUTE NEUTROPHILS (test code 5.12 K/UL = 1066) ABSOLUTE LYMPHOCYTES (test code 1.13 K/UL = 1067) ABSOLUTE MONOCYTES (test code = 0.46 K/UL 1068) ABSOLUTE EOSINOPHILS (test code 0.05 K/UL = 1040) ABSOLUTE BASOPHILS (test code = 0.03 K/UL 1069) ABS IMMATURE GRANULOCYTES (test 0.02 K/UL code = 1020) ABS NUCLEATED RBCS (test code = 0.00 K/UL 92657) CBC W/AUTO [id number] 00:00:00 Test Item Value Reference Range Interpretation Comments WBC (test code = 1001) 6.8 K/UL RBC (test code = 1002) 4.73 M/UL HEMOGLOBIN (test code = 1003) 13.7 G/DL HEMATOCRIT (test code = 1004) 39.9 % MCV (test code = 1005) 84.4 fL MCH (test code = 1006) 29.0 PG MCHC (test code = 1007) 34.3 G/DL RDW (test code = 1038) 14.4 % NEUTROPHILS (test code = 1008) 75.2 % LYMPHOCYTES (test code = 1010) 16.6 % MONOCYTES (test code = 1011) 6.8 % EOSINOPHILS (test code = 1012) 0.7 % BASOPHILS (test code = 1013) 0.4 % IMMATURE GRANULOCYTES (test 0.3 % code = 1036) NUCLEATED RBCS (test code = 0.0 /100WBC'S 1065) PLATELET COUNT (test code = 126 K/UL 1015) ABSOLUTE NEUTROPHILS (test code 5.12 K/UL = 1066) ABSOLUTE LYMPHOCYTES (test code 1.13 K/UL = 1067) ABSOLUTE MONOCYTES (test code = 0.46 K/UL 1068) ABSOLUTE EOSINOPHILS (test code 0.05 K/UL = 1040) ABSOLUTE BASOPHILS (test code = 0.03 K/UL 1069) ABS IMMATURE GRANULOCYTES (test 0.02 K/UL code = 1020) ABS NUCLEATED RBCS (test code = 0.00 K/UL 62038) CBC W/AUTO [id number] 00:00:00 Test Item Value Reference Range Interpretation Comments WBC (test code = 1001) 6.8 K/UL RBC (test code = 1002) 4.73 M/UL HEMOGLOBIN (test code = 1003) 13.7 G/DL HEMATOCRIT (test code = 1004) 39.9 % MCV (test code = 1005) 84.4 fL MCH (test code = 1006) 29.0 PG MCHC (test code = 1007) 34.3 G/DL RDW (test code = 1038) 14.4 % NEUTROPHILS (test code = 1008) 75.2 % LYMPHOCYTES (test code = 1010) 16.6 % MONOCYTES (test code = 1011) 6.8 % EOSINOPHILS (test code = 1012) 0.7 % BASOPHILS (test code = 1013) 0.4 % IMMATURE GRANULOCYTES (test 0.3 % code = 1036) NUCLEATED RBCS (test code = 0.0 /100WBC'S 1065) PLATELET COUNT (test code = 126 K/UL 1015) ABSOLUTE NEUTROPHILS (test code 5.12 K/UL = 1066) ABSOLUTE LYMPHOCYTES (test code 1.13 K/UL = 1067) ABSOLUTE MONOCYTES (test code = 0.46 K/UL 1068) ABSOLUTE EOSINOPHILS (test code 0.05 K/UL = 1040) ABSOLUTE BASOPHILS (test code = 0.03 K/UL 1069) ABS IMMATURE GRANULOCYTES (test 0.02 K/UL code = 1020) ABS NUCLEATED RBCS (test code = 0.00 K/UL 36796) HEMOGLOBIN [id number] 00:00:00 Test Item Value Reference Range Interpretation Comments HEMOGLOBIN A1c (test code = 83095) 8.2 % HEMOGLOBIN [id number] 00:00:00 Test Item Value Reference Range Interpretation Comments HEMOGLOBIN A1c (test code = 47936) 8.2 % HEMOGLOBIN [id number] 00:00:00 Test Item Value Reference Range Interpretation Comments HEMOGLOBIN A1c (test code = 29089) 8.2 % COMPREHENSIVE METABOLIC [id number] 00:00:00 Test Item Value Reference Range Interpretation Comments GLUCOSE (test code = 2217) 117 MG/DL BUN (test code = 2208) 16 MG/DL CREATININE (test code = 2214) 0.77 MG/DL eGFR (2020 CKD-EPI) (test code 83 ML/MIN/1.73 = 37640) CALC BUN/CREAT (test code = 21 RATIO 2235) SODIUM (test code = 2231) 142 MEQ/L POTASSIUM (test code = 2228) 4.4 MEQ/L CHLORIDE (test code = 2215) 105 MEQ/L CARBON DIOXIDE (test code = 17 MEQ/L 2205) CALCIUM (test code = 2209) 9.6 MG/DL PROTEIN, TOTAL (test code = 8.2 G/DL 2228) ALBUMIN (test code = 2201) 4.5 G/DL CALC GLOBULIN (test code = 3.7 G/DL 2240) CALC A/G RATIO (test code = 1.2 RATIO 2234) BILIRUBIN, TOTAL (test code = 0.4 MG/DL 2206) ALKALINE PHOSPHATASE (test 113 U/L code = 2204) AST (test code = 2218) 39 U/L ALT (test code = 2219) 18 U/L COMPREHENSIVE METABOLIC [id number] 00:00:00 Test Item Value Reference Range Interpretation Comments GLUCOSE (test code = 2217) 117 MG/DL BUN (test code = 2208) 16 MG/DL CREATININE (test code = 2214) 0.77 MG/DL eGFR (2020 CKD-EPI) (test code 83 ML/MIN/1.73 = 94880) CALC BUN/CREAT (test code = 21 RATIO 2235) SODIUM (test code = 2231) 142 MEQ/L POTASSIUM (test code = 2228) 4.4 MEQ/L CHLORIDE (test code = 2215) 105 MEQ/L CARBON DIOXIDE (test code = 17 MEQ/L 2205) CALCIUM (test code = 2209) 9.6 MG/DL PROTEIN, TOTAL (test code = 8.2 G/DL 2228) ALBUMIN (test code = 2201) 4.5 G/DL CALC GLOBULIN (test code = 3.7 G/DL 2239) CALC A/G RATIO (test code = 1.2 RATIO 2233) BILIRUBIN, TOTAL (test code = 0.4 MG/DL 2206) ALKALINE PHOSPHATASE (test 113 U/L code = 2204) AST (test code = 2218) 39 U/L ALT (test code = 2219) 18 U/L LIPID [id number] 00:00:00 Test Item Value Reference Range Interpretation Comments CHOLESTEROL (test code = 2210) 180 MG/DL TRIGLYCERIDES (test code = 2232) 142 MG/DL HDL CHOLESTEROL (test code = 2220) 42 MG/DL CALC LDL CHOL (test code = 2237) 113 MG/DL RISK RATIO LDL/HDL (test code = 2.69 RATIO 2238) LIPID [id number] 00:00:00 Test Item Value Reference Range Interpretation Comments CHOLESTEROL (test code = 2210) 180 MG/DL TRIGLYCERIDES (test code = 2232) 142 MG/DL HDL CHOLESTEROL (test code = 2220) 42 MG/DL CALC LDL CHOL (test code = 2237) 113 MG/DL RISK RATIO LDL/HDL (test code = 2.69 RATIO 2238) CBC W/AUTO [id number] 00:00:00 Test Item Value Reference Range Interpretation Comments WBC (test code = 1001) 6.8 K/UL RBC (test code = 1002) 4.73 M/UL HEMOGLOBIN (test code = 1003) 13.7 G/DL HEMATOCRIT (test code = 1004) 39.9 % MCV (test code = 1005) 84.4 fL MCH (test code = 1006) 29.0 PG MCHC (test code = 1007) 34.3 G/DL RDW (test code = 1038) 14.4 % NEUTROPHILS (test code = 1008) 75.2 % LYMPHOCYTES (test code = 1010) 16.6 % MONOCYTES (test code = 1011) 6.8 % EOSINOPHILS (test code = 1012) 0.7 % BASOPHILS (test code = 1013) 0.4 % IMMATURE GRANULOCYTES (test 0.3 % code = 1036) NUCLEATED RBCS (test code = 0.0 /100WBC'S 1065) PLATELET COUNT (test code = 126 K/UL 1015) ABSOLUTE NEUTROPHILS (test code 5.12 K/UL = 1066) ABSOLUTE LYMPHOCYTES (test code 1.13 K/UL = 1067) ABSOLUTE MONOCYTES (test code = 0.46 K/UL 1068) ABSOLUTE EOSINOPHILS (test code 0.05 K/UL = 1040) ABSOLUTE BASOPHILS (test code = 0.03 K/UL 1069) ABS IMMATURE GRANULOCYTES (test 0.02 K/UL code = 1020) ABS NUCLEATED RBCS (test code = 0.00 K/UL 27851) CBC W/AUTO [id number] 00:00:00 Test Item Value Reference Range Interpretation Comments WBC (test code = 1001) 6.8 K/UL RBC (test code = 1002) 4.73 M/UL HEMOGLOBIN (test code = 1003) 13.7 G/DL HEMATOCRIT (test code = 1004) 39.9 % MCV (test code = 1005) 84.4 fL MCH (test code = 1006) 29.0 PG MCHC (test code = 1007) 34.3 G/DL RDW (test code = 1038) 14.4 % NEUTROPHILS (test code = 1008) 75.2 % LYMPHOCYTES (test code = 1010) 16.6 % MONOCYTES (test code = 1011) 6.8 % EOSINOPHILS (test code = 1012) 0.7 % BASOPHILS (test code = 1013) 0.4 % IMMATURE GRANULOCYTES (test 0.3 % code = 1036) NUCLEATED RBCS (test code = 0.0 /100WBC'S 1065) PLATELET COUNT (test code = 126 K/UL 1015) ABSOLUTE NEUTROPHILS (test code 5.12 K/UL = 1066) ABSOLUTE LYMPHOCYTES (test code 1.13 K/UL = 1067) ABSOLUTE MONOCYTES (test code = 0.46 K/UL 1068) ABSOLUTE EOSINOPHILS (test code 0.05 K/UL = 1040) ABSOLUTE BASOPHILS (test code = 0.03 K/UL 1069) ABS IMMATURE GRANULOCYTES (test 0.02 K/UL code = 1020) ABS NUCLEATED RBCS (test code = 0.00 K/UL 70710) CBC W/AUTO [id number] 00:00:00 Test Item Value Reference Range Interpretation Comments WBC (test code = 1001) 6.8 K/UL RBC (test code = 1002) 4.73 M/UL HEMOGLOBIN (test code = 1003) 13.7 G/DL HEMATOCRIT (test code = 1004) 39.9 % MCV (test code = 1005) 84.4 fL MCH (test code = 1006) 29.0 PG MCHC (test code = 1007) 34.3 G/DL RDW (test code = 1038) 14.4 % NEUTROPHILS (test code = 1008) 75.2 % LYMPHOCYTES (test code = 1010) 16.6 % MONOCYTES (test code = 1011) 6.8 % EOSINOPHILS (test code = 1012) 0.7 % BASOPHILS (test code = 1013) 0.4 % IMMATURE GRANULOCYTES (test 0.3 % code = 1036) NUCLEATED RBCS (test code = 0.0 /100WBC'S 1065) PLATELET COUNT (test code = 126 K/UL 1015) ABSOLUTE NEUTROPHILS (test code 5.12 K/UL = 1066) ABSOLUTE LYMPHOCYTES (test code 1.13 K/UL = 1067) ABSOLUTE MONOCYTES (test code = 0.46 K/UL 1068) ABSOLUTE EOSINOPHILS (test code 0.05 K/UL = 1040) ABSOLUTE BASOPHILS (test code = 0.03 K/UL 1069) ABS IMMATURE GRANULOCYTES (test 0.02 K/UL code = 1020) ABS NUCLEATED RBCS (test code = 0.00 K/UL 87789) CULTURE, [id number] 13:08:15SPECIMEN NUMBER: [id number] CULTURE, ROUTINE SPECIMEN NUMBER: [id number] SPECIMEN COMMENT: L 1ST TOE SOURCE: TOE [...] MRSA AMIKACIN SENSITIVE <=16CEFEPIME SENSITIVE <=2CEFTAZIDIME SENSITIVE 4CIPROFLOXACIN SENSITIVE <=1CLINDAMYCIN RESISTANT >4ERYTHROMYCIN RESISTANT >4LEVOFLOXACIN SENSITIVE <=2MEROPE NEM SENSITIVE 2OXACILLIN RESISTANT >2PIP/TAZOBAC SENSITIVE <=16RIFAMPIN SENSITIVE <=1TETRACYCLINE SENSITIVE <=1TOBRAMYCIN SENSITIVE <=4TRIMETH/SULFA SENSITIVE 2/38VANCOMYCIN SENSITIVE 1NOTE: NUMBERS DISPLAYED REPRESENT MINIMUM INHIBITORY CONCENTRATION (JEIMY) WHICH IS EXPRESSED IN MCG/ML. UNLESS OTHERWISE INDICATED, ALL TESTING PERFORMED [facility] [address] [place] [address] ALPINE PATROLLER: DAVID GUALLPA M.D. CLIA NUMBER [id number] [facility] [place]. [id number], [id number] 00:00:00 Test Item Value Reference Range Interpretation Comments CULTURE, ROUTINE (test SPECIMEN NUMBER: code = 17923) [id number] CULTURE, [id number] 00:00:00 Test Item Value Reference Range Interpretation Comments CULTURE, ROUTINE (test SPECIMEN NUMBER: code = 14686) [id number] CULTURE, [id number] 00:00:00 Test Item Value Reference Range Interpretation Comments CULTURE, ROUTINE (test SPECIMEN NUMBER: code = 46321) [id number] CULTURE, [id number] 00:00:00 Test Item Value Reference Range Interpretation Comments CULTURE, ROUTINE (test SPECIMEN NUMBER: code = 31865) [id number] CULTURE, [id number] 00:00:00 Test Item Value Reference Range Interpretation Comments CULTURE, ROUTINE (test SPECIMEN NUMBER: code = 13853) [id number] CULTURE, [id number] 00:00:00 Test Item Value Reference Range Interpretation Comments CULTURE, ROUTINE (test SPECIMEN NUMBER: code = 20205) [id number] CULTURE, [id number] 00:00:00 Test Item Value Reference Range Interpretation Comments CULTURE, ROUTINE (test SPECIMEN NUMBER: code = 10567) [id number] CULTURE, [id number] 00:00:00 Test Item Value Reference Range Interpretation Comments CULTURE, ROUTINE (test SPECIMEN NUMBER: code = 30191) [id number] CULTURE, [id number] 00:00:00 Test Item Value Reference Range Interpretation Comments CULTURE, ROUTINE (test SPECIMEN NUMBER: code = 34405) [id number] 00:00:00 Test Item Value Reference Range Interpretation Comments AMYLASE (test code = 2205) 107 U/L [id number] 00:00:00 Test Item Value Reference Range Interpretation Comments AMYLASE (test code = 2204) 107 U/L [id number] 00:00:00 Test Item Value Reference Range Interpretation Comments LIPASE (test code = 2057) 21 U/L [id number] 00:00:00 Test Item Value Reference Range Interpretation Comments LIPASE (test code = 2057) 21 U/L [id number] 00:00:00 Test Item Value Reference Range Interpretation Comments LIPASE (test code = 2057) 21 U/L CBC W/AUTO [id number] 00:00:00 Test Item Value Reference Range Interpretation Comments WBC (test code = 1001) 6.3 K/UL RBC (test code = 1002) 4.64 M/UL HEMOGLOBIN (test code = 1003) 14.1 G/DL HEMATOCRIT (test code = 1004) 40.8 % MCV (test code = 1005) 87.9 fL MCH (test code = 1006) 30.4 PG MCHC (test code = 1007) 34.6 G/DL RDW (test code = 1038) 13.9 % NEUTROPHILS (test code = 1008) 74.9 % LYMPHOCYTES (test code = 1010) 15.5 % MONOCYTES (test code = 1011) 7.4 % EOSINOPHILS (test code = 1012) 1.1 % BASOPHILS (test code = 1013) 0.5 % IMMATURE GRANULOCYTES (test 0.6 % code = 1036) NUCLEATED RBCS (test code = 0.0 /100WBC'S 1065) PLATELET COUNT (test code = 99 K/UL 1015) ABSOLUTE NEUTROPHILS (test code 4.72 K/UL = 1066) ABSOLUTE LYMPHOCYTES (test code 0.98 K/UL = 1067) ABSOLUTE MONOCYTES (test code = 0.47 K/UL 1068) ABSOLUTE EOSINOPHILS (test code 0.07 K/UL = 1040) ABSOLUTE BASOPHILS (test code = 0.03 K/UL 1069) ABS IMMATURE GRANULOCYTES (test 0.04 K/UL code = 1020) ABS NUCLEATED RBCS (test code = 0.00 K/UL 82111) CBC W/AUTO [id number] 00:00:00 Test Item Value Reference Range Interpretation Comments WBC (test code = 1001) 6.3 K/UL RBC (test code = 1002) 4.64 M/UL HEMOGLOBIN (test code = 1003) 14.1 G/DL HEMATOCRIT (test code = 1004) 40.8 % MCV (test code = 1005) 87.9 fL MCH (test code = 1006) 30.4 PG MCHC (test code = 1007) 34.6 G/DL RDW (test code = 1038) 13.9 % NEUTROPHILS (test code = 1008) 74.9 % LYMPHOCYTES (test code = 1010) 15.5 % MONOCYTES (test code = 1011) 7.4 % EOSINOPHILS (test code = 1012) 1.1 % BASOPHILS (test code = 1013) 0.5 % IMMATURE GRANULOCYTES (test 0.6 % code = 1036) NUCLEATED RBCS (test code = 0.0 /100WBC'S 1065) PLATELET COUNT (test code = 99 K/UL 1015) ABSOLUTE NEUTROPHILS (test code 4.72 K/UL = 1066) ABSOLUTE LYMPHOCYTES (test code 0.98 K/UL = 1067) ABSOLUTE MONOCYTES (test code = 0.47 K/UL 1068) ABSOLUTE EOSINOPHILS (test code 0.07 K/UL = 1040) ABSOLUTE BASOPHILS (test code = 0.03 K/UL 1069) ABS IMMATURE GRANULOCYTES (test 0.04 K/UL code = 1020) ABS NUCLEATED RBCS (test code = 0.00 K/UL 56966) CBC W/AUTO [id number] 00:00:00 Test Item Value Reference Range Interpretation Comments WBC (test code = 1001) 6.3 K/UL RBC (test code = 1002) 4.64 M/UL HEMOGLOBIN (test code = 1003) 14.1 G/DL HEMATOCRIT (test code = 1004) 40.8 % MCV (test code = 1005) 87.9 fL MCH (test code = 1006) 30.4 PG MCHC (test code = 1007) 34.6 G/DL RDW (test code = 1038) 13.9 % NEUTROPHILS (test code = 1008) 74.9 % LYMPHOCYTES (test code = 1010) 15.5 % MONOCYTES (test code = 1011) 7.4 % EOSINOPHILS (test code = 1012) 1.1 % BASOPHILS (test code = 1013) 0.5 % IMMATURE GRANULOCYTES (test 0.6 % code = 1036) NUCLEATED RBCS (test code = 0.0 /100WBC'S 1065) PLATELET COUNT (test code = 99 K/UL 1015) ABSOLUTE NEUTROPHILS (test code 4.72 K/UL = 1066) ABSOLUTE LYMPHOCYTES (test code 0.98 K/UL = 1067) ABSOLUTE MONOCYTES (test code = 0.47 K/UL 1068) ABSOLUTE EOSINOPHILS (test code 0.07 K/UL = 1040) ABSOLUTE BASOPHILS (test code = 0.03 K/UL 1069) ABS IMMATURE GRANULOCYTES (test 0.04 K/UL code = 1020) ABS NUCLEATED RBCS (test code = 0.00 K/UL 49004) [id number] 00:00:00 Test Item Value Reference Range Interpretation Comments AMYLASE (test code = 2205) 107 U/L [id number] 00:00:00 Test Item Value Reference Range Interpretation Comments AMYLASE (test code = 2205) 107 U/L [id number] 00:00:00 Test Item Value Reference Range Interpretation Comments LIPASE (test code = 2058) 21 U/L [id number] 00:00:00 Test Item Value Reference Range Interpretation Comments LIPASE (test code = 8) 21 U/L [id number] 00:00:00 Test Item Value Reference Range Interpretation Comments LIPASE (test code = 2058) 21 U/L CBC W/AUTO [id number] 00:00:00 Test Item Value Reference Range Interpretation Comments WBC (test code = 1001) 6.3 K/UL RBC (test code = 1002) 4.64 M/UL HEMOGLOBIN (test code = 1003) 14.1 G/DL HEMATOCRIT (test code = 1004) 40.8 % MCV (test code = 1005) 87.9 fL MCH (test code = 1006) 30.4 PG MCHC (test code = 1007) 34.6 G/DL RDW (test code = 1038) 13.9 % NEUTROPHILS (test code = 1008) 74.9 % LYMPHOCYTES (test code = 1010) 15.5 % MONOCYTES (test code = 1011) 7.4 % EOSINOPHILS (test code = 1012) 1.1 % BASOPHILS (test code = 1013) 0.5 % IMMATURE GRANULOCYTES (test 0.6 % code = 1036) NUCLEATED RBCS (test code = 0.0 /100WBC'S 1065) PLATELET COUNT (test code = 99 K/UL 1015) ABSOLUTE NEUTROPHILS (test code 4.72 K/UL = 1066) ABSOLUTE LYMPHOCYTES (test code 0.98 K/UL = 1067) ABSOLUTE MONOCYTES (test code = 0.47 K/UL 1068) ABSOLUTE EOSINOPHILS (test code 0.07 K/UL = 1040) ABSOLUTE BASOPHILS (test code = 0.03 K/UL 1069) ABS IMMATURE GRANULOCYTES (test 0.04 K/UL code = 1020) ABS NUCLEATED RBCS (test code = 0.00 K/UL 61411) CBC W/AUTO [id number] 00:00:00 Test Item Value Reference Range Interpretation Comments WBC (test code = 1001) 6.3 K/UL RBC (test code = 1002) 4.64 M/UL HEMOGLOBIN (test code = 1003) 14.1 G/DL HEMATOCRIT (test code = 1004) 40.8 % MCV (test code = 1005) 87.9 fL MCH (test code = 1006) 30.4 PG MCHC (test code = 1007) 34.6 G/DL RDW (test code = 1038) 13.9 % NEUTROPHILS (test code = 1008) 74.9 % LYMPHOCYTES (test code = 1010) 15.5 % MONOCYTES (test code = 1011) 7.4 % EOSINOPHILS (test code = 1012) 1.1 % BASOPHILS (test code = 1013) 0.5 % IMMATURE GRANULOCYTES (test 0.6 % code = 1036) NUCLEATED RBCS (test code = 0.0 /100WBC'S 1065) PLATELET COUNT (test code = 99 K/UL 1015) ABSOLUTE NEUTROPHILS (test code 4.72 K/UL = 1066) ABSOLUTE LYMPHOCYTES (test code 0.98 K/UL = 1067) ABSOLUTE MONOCYTES (test code = 0.47 K/UL 1068) ABSOLUTE EOSINOPHILS (test code 0.07 K/UL = 1040) ABSOLUTE BASOPHILS (test code = 0.03 K/UL 1069) ABS IMMATURE GRANULOCYTES (test 0.04 K/UL code = 1020) ABS NUCLEATED RBCS (test code = 0.00 K/UL 68176) CBC W/AUTO [id number] 00:00:00 Test Item Value Reference Range Interpretation Comments WBC (test code = 1001) 6.3 K/UL RBC (test code = 1002) 4.64 M/UL HEMOGLOBIN (test code = 1003) 14.1 G/DL HEMATOCRIT (test code = 1004) 40.8 % MCV (test code = 1005) 87.9 fL MCH (test code = 1006) 30.4 PG MCHC (test code = 1007) 34.6 G/DL RDW (test code = 1038) 13.9 % NEUTROPHILS (test code = 1008) 74.9 % LYMPHOCYTES (test code = 1010) 15.5 % MONOCYTES (test code = 1011) 7.4 % EOSINOPHILS (test code = 1012) 1.1 % BASOPHILS (test code = 1013) 0.5 % IMMATURE GRANULOCYTES (test 0.6 % code = 1036) NUCLEATED RBCS (test code = 0.0 /100WBC'S 1065) PLATELET COUNT (test code = 99 K/UL 1015) ABSOLUTE NEUTROPHILS (test code 4.72 K/UL = 1066) ABSOLUTE LYMPHOCYTES (test code 0.98 K/UL = 1067) ABSOLUTE MONOCYTES (test code = 0.47 K/UL 1068) ABSOLUTE EOSINOPHILS (test code 0.07 K/UL = 1040) ABSOLUTE BASOPHILS (test code = 0.03 K/UL 1069) ABS IMMATURE GRANULOCYTES (test 0.04 K/UL code = 1020) ABS NUCLEATED RBCS (test code = 0.00 K/UL 64342) [id number] 00:00:00 Test Item Value Reference Range Interpretation Comments AMYLASE (test code = 2205) 107 U/L [id number] 00:00:00 Test Item Value Reference Range Interpretation Comments AMYLASE (test code = 2205) 107 U/L [id number] 00:00:00 Test Item Value Reference Range Interpretation Comments LIPASE (test code = 8) 21 U/L [id number] 00:00:00 Test Item Value Reference Range Interpretation Comments LIPASE (test code = 2058) 21 U/L [id number] 00:00:00 Test Item Value Reference Range Interpretation Comments LIPASE (test code = 2058) 21 U/L CBC W/AUTO [id number] 00:00:00 Test Item Value Reference Range Interpretation Comments WBC (test code = 1001) 6.3 K/UL RBC (test code = 1002) 4.64 M/UL HEMOGLOBIN (test code = 1003) 14.1 G/DL HEMATOCRIT (test code = 1004) 40.8 % MCV (test code = 1005) 87.9 fL MCH (test code = 1006) 30.4 PG MCHC (test code = 1007) 34.6 G/DL RDW (test code = 1038) 13.9 % NEUTROPHILS (test code = 1008) 74.9 % LYMPHOCYTES (test code = 1010) 15.5 % MONOCYTES (test code = 1011) 7.4 % EOSINOPHILS (test code = 1012) 1.1 % BASOPHILS (test code = 1013) 0.5 % IMMATURE GRANULOCYTES (test 0.6 % code = 1036) NUCLEATED RBCS (test code = 0.0 /100WBC'S 1065) PLATELET COUNT (test code = 99 K/UL 1015) ABSOLUTE NEUTROPHILS (test code 4.72 K/UL = 1066) ABSOLUTE LYMPHOCYTES (test code 0.98 K/UL = 1067) ABSOLUTE MONOCYTES (test code = 0.47 K/UL 1068) ABSOLUTE EOSINOPHILS (test code 0.07 K/UL = 1040) ABSOLUTE BASOPHILS (test code = 0.03 K/UL 1069) ABS IMMATURE GRANULOCYTES (test 0.04 K/UL code = 1020) ABS NUCLEATED RBCS (test code = 0.00 K/UL 35545) CBC W/AUTO [id number] 00:00:00 Test Item Value Reference Range Interpretation Comments WBC (test code = 1001) 6.3 K/UL RBC (test code = 1002) 4.64 M/UL HEMOGLOBIN (test code = 1003) 14.1 G/DL HEMATOCRIT (test code = 1004) 40.8 % MCV (test code = 1005) 87.9 fL MCH (test code = 1006) 30.4 PG MCHC (test code = 1007) 34.6 G/DL RDW (test code = 1038) 13.9 % NEUTROPHILS (test code = 1008) 74.9 % LYMPHOCYTES (test code = 1010) 15.5 % MONOCYTES (test code = 1011) 7.4 % EOSINOPHILS (test code = 1012) 1.1 % BASOPHILS (test code = 1013) 0.5 % IMMATURE GRANULOCYTES (test 0.6 % code = 1036) NUCLEATED RBCS (test code = 0.0 /100WBC'S 1065) PLATELET COUNT (test code = 99 K/UL 1015) ABSOLUTE NEUTROPHILS (test code 4.72 K/UL = 1066) ABSOLUTE LYMPHOCYTES (test code 0.98 K/UL = 1067) ABSOLUTE MONOCYTES (test code = 0.47 K/UL 1068) ABSOLUTE EOSINOPHILS (test code 0.07 K/UL = 1040) ABSOLUTE BASOPHILS (test code = 0.03 K/UL 1069) ABS IMMATURE GRANULOCYTES (test 0.04 K/UL code = 1020) ABS NUCLEATED RBCS (test code = 0.00 K/UL 52890) CBC W/AUTO [id number] 00:00:00 Test Item Value Reference Range Interpretation Comments WBC (test code = 1001) 6.3 K/UL RBC (test code = 1002) 4.64 M/UL HEMOGLOBIN (test code = 1003) 14.1 G/DL HEMATOCRIT (test code = 1004) 40.8 % MCV (test code = 1005) 87.9 fL MCH (test code = 1006) 30.4 PG MCHC (test code = 1007) 34.6 G/DL RDW (test code = 1038) 13.9 % NEUTROPHILS (test code = 1008) 74.9 % LYMPHOCYTES (test code = 1010) 15.5 % MONOCYTES (test code = 1011) 7.4 % EOSINOPHILS (test code = 1012) 1.1 % BASOPHILS (test code = 1013) 0.5 % IMMATURE GRANULOCYTES (test 0.6 % code = 1036) NUCLEATED RBCS (test code = 0.0 /100WBC'S 1065) PLATELET COUNT (test code = 99 K/UL 1015) ABSOLUTE NEUTROPHILS (test code 4.72 K/UL = 1066) ABSOLUTE LYMPHOCYTES (test code 0.98 K/UL = 1067) ABSOLUTE MONOCYTES (test code = 0.47 K/UL 1068) ABSOLUTE EOSINOPHILS (test code 0.07 K/UL = 1040) ABSOLUTE BASOPHILS (test code = 0.03 K/UL 1069) ABS IMMATURE GRANULOCYTES (test 0.04 K/UL code = 1020) ABS NUCLEATED RBCS (test code = 0.00 K/UL 34981) HEMOGLOBIN [id number] 00:00:00 Test Item Value Reference Range Interpretation Comments HEMOGLOBIN A1c (test code = 03521) 9.5 % HEMOGLOBIN [id number] 00:00:00 Test Item Value Reference Range Interpretation Comments HEMOGLOBIN A1c (test code = 29392) 9.5 % HEMOGLOBIN [id number] 00:00:00 Test Item Value Reference Range Interpretation Comments HEMOGLOBIN A1c (test code = 39857) 9.5 % HEMOGLOBIN [id number] 00:00:00 Test Item Value Reference Range Interpretation Comments HEMOGLOBIN A1c (test code = 93746) 9.5 % HEMOGLOBIN [id number] 00:00:00 Test Item Value Reference Range Interpretation Comments HEMOGLOBIN A1c (test code = 47594) 9.5 % HEMOGLOBIN [id number] 00:00:00 Test Item Value Reference Range Interpretation Comments HEMOGLOBIN A1c (test code = 27808) 9.5 % HEMOGLOBIN [id number] 00:00:00 Test Item Value Reference Range Interpretation Comments HEMOGLOBIN A1c (test code = 78025) 9.5 % HEMOGLOBIN [id number] 00:00:00 Test Item Value Reference Range Interpretation Comments HEMOGLOBIN A1c (test code = 45366) 9.5 % HEMOGLOBIN [id number] 00:00:00 Test Item Value Reference Range Interpretation Comments HEMOGLOBIN A1c (test code = 68139) 9.5 % COMPREHENSIVE METABOLIC [id number] 00:00:00 Test Item Value Reference Range Interpretation Comments GLUCOSE (test code = 2217) 268 MG/DL BUN (test code = 2208) 13 MG/DL CREATININE (test code = 2214) 0.71 MG/DL eGFR AMER. (test code 101 ML/MIN/1.73 = 13695) eGFR NON- AMER. (test 87 ML/MIN/1.73 code = 73788) CALC BUN/CREAT (test code = 18 RATIO 2235) SODIUM (test code = 2231) 138 MEQ/L POTASSIUM (test code = 2228) 4.3 MEQ/L CHLORIDE (test code = 2215) 100 MEQ/L CARBON DIOXIDE (test code = 22 MEQ/L 2205) CALCIUM (test code = 2209) 9.2 MG/DL PROTEIN, TOTAL (test code = 8.0 G/DL 2228) ALBUMIN (test code = 2201) 4.7 G/DL CALC GLOBULIN (test code = 3.3 G/DL 2240) CALC A/G RATIO (test code = 1.4 RATIO 2234) BILIRUBIN, TOTAL (test code = 0.4 MG/DL 2206) ALKALINE PHOSPHATASE (test 144 U/L code = 2204) AST (test code = 2218) 32 U/L ALT (test code = 2219) 20 U/L COMPREHENSIVE METABOLIC [id number] 00:00:00 Test Item Value Reference Range Interpretation Comments GLUCOSE (test code = 2217) 268 MG/DL BUN (test code = 2208) 13 MG/DL CREATININE (test code = 2214) 0.71 MG/DL eGFR AMER. (test code 101 ML/MIN/1.73 = 32817) eGFR NON- AMER. (test 87 ML/MIN/1.73 code = 16168) CALC BUN/CREAT (test code = 18 RATIO 2235) SODIUM (test code = 2231) 138 MEQ/L POTASSIUM (test code = 2228) 4.3 MEQ/L CHLORIDE (test code = 2215) 100 MEQ/L CARBON DIOXIDE (test code = 22 MEQ/L 2205) CALCIUM (test code = 2209) 9.2 MG/DL PROTEIN, TOTAL (test code = 8.0 G/DL 2228) ALBUMIN (test code = 2201) 4.7 G/DL CALC GLOBULIN (test code = 3.3 G/DL 2240) CALC A/G RATIO (test code = 1.4 RATIO 2234) BILIRUBIN, TOTAL (test code = 0.4 MG/DL 2206) ALKALINE PHOSPHATASE (test 144 U/L code = 2204) AST (test code = 2218) 32 U/L ALT (test code = 2219) 20 U/L LIPID [id number] 00:00:00 Test Item Value Reference Range Interpretation Comments CHOLESTEROL (test code = 2210) 205 MG/DL TRIGLYCERIDES (test code = 2232) 262 MG/DL HDL CHOLESTEROL (test code = 2220) 41 MG/DL CALC LDL CHOL (test code = 2237) 124 MG/DL RISK RATIO LDL/HDL (test code = 3.02 RATIO 2238) LIPID [id number] 00:00:00 Test Item Value Reference Range Interpretation Comments CHOLESTEROL (test code = 2210) 205 MG/DL TRIGLYCERIDES (test code = 2232) 262 MG/DL HDL CHOLESTEROL (test code = 2220) 41 MG/DL CALC LDL CHOL (test code = 2237) 124 MG/DL RISK RATIO LDL/HDL (test code = 3.02 RATIO 2238) COMPREHENSIVE METABOLIC [id number] 00:00:00 Test Item Value Reference Range Interpretation Comments GLUCOSE (test code = 2217) 268 MG/DL BUN (test code = 2208) 13 MG/DL CREATININE (test code = 2214) 0.71 MG/DL eGFR AMER. (test code 101 ML/MIN/1.73 = 90815) eGFR NON- AMER. (test 87 ML/MIN/1.73 code = 46010) CALC BUN/CREAT (test code = 18 RATIO 2235) SODIUM (test code = 2231) 138 MEQ/L POTASSIUM (test code = 2228) 4.3 MEQ/L CHLORIDE (test code = 2215) 100 MEQ/L CARBON DIOXIDE (test code = 22 MEQ/L 2205) CALCIUM (test code = 2209) 9.2 MG/DL PROTEIN, TOTAL (test code = 8.0 G/DL 2228) ALBUMIN (test code = 2201) 4.7 G/DL CALC GLOBULIN (test code = 3.3 G/DL 0) CALC A/G RATIO (test code = 1.4 RATIO 2234) BILIRUBIN, TOTAL (test code = 0.4 MG/DL 2206) ALKALINE PHOSPHATASE (test 144 U/L code = 2204) AST (test code = 2218) 32 U/L ALT (test code = 2219) 20 U/L COMPREHENSIVE METABOLIC [id number] 00:00:00 Test Item Value Reference Range Interpretation Comments GLUCOSE (test code = 2217) 268 MG/DL BUN (test code = 2208) 13 MG/DL CREATININE (test code = 2214) 0.71 MG/DL eGFR AMER. (test code 101 ML/MIN/1.73 = 00498) eGFR NON- AMER. (test 87 ML/MIN/1.73 code = 25404) CALC BUN/CREAT (test code = 18 RATIO 2235) SODIUM (test code = 2231) 138 MEQ/L POTASSIUM (test code = 2228) 4.3 MEQ/L CHLORIDE (test code = 2215) 100 MEQ/L CARBON DIOXIDE (test code = 22 MEQ/L 2205) CALCIUM (test code = 2209) 9.2 MG/DL PROTEIN, TOTAL (test code = 8.0 G/DL 2228) ALBUMIN (test code = 2201) 4.7 G/DL CALC GLOBULIN (test code = 3.3 G/DL 224) CALC A/G RATIO (test code = 1.4 RATIO 2234) BILIRUBIN, TOTAL (test code = 0.4 MG/DL 2206) ALKALINE PHOSPHATASE (test 144 U/L code = 2204) AST (test code = 2218) 32 U/L ALT (test code = 2219) 20 U/L LIPID [id number] 00:00:00 Test Item Value Reference Range Interpretation Comments CHOLESTEROL (test code = 2210) 205 MG/DL TRIGLYCERIDES (test code = 2232) 262 MG/DL HDL CHOLESTEROL (test code = 2220) 41 MG/DL CALC LDL CHOL (test code = 2237) 124 MG/DL RISK RATIO LDL/HDL (test code = 3.02 RATIO 2238) LIPID [id number] 00:00:00 Test Item Value Reference Range Interpretation Comments CHOLESTEROL (test code = 2210) 205 MG/DL TRIGLYCERIDES (test code = 2232) 262 MG/DL HDL CHOLESTEROL (test code = 2220) 41 MG/DL CALC LDL CHOL (test code = 2237) 124 MG/DL RISK RATIO LDL/HDL (test code = 3.02 RATIO 2238) COMPREHENSIVE METABOLIC [id number] 00:00:00 Test Item Value Reference Range Interpretation Comments GLUCOSE (test code = 2217) 268 MG/DL BUN (test code = 2208) 13 MG/DL CREATININE (test code = 2214) 0.71 MG/DL eGFR AMER. (test code 101 ML/MIN/1.73 = 21037) eGFR NON- AMER. (test 87 ML/MIN/1.73 code = 62543) CALC BUN/CREAT (test code = 18 RATIO 2235) SODIUM (test code = 2231) 138 MEQ/L POTASSIUM (test code = 2228) 4.3 MEQ/L CHLORIDE (test code = 2215) 100 MEQ/L CARBON DIOXIDE (test code = 22 MEQ/L 220) CALCIUM (test code = 2209) 9.2 MG/DL PROTEIN, TOTAL (test code = 8.0 G/DL 2228) ALBUMIN (test code = 2201) 4.7 G/DL CALC GLOBULIN (test code = 3.3 G/DL 2240) CALC A/G RATIO (test code = 1.4 RATIO 2233) BILIRUBIN, TOTAL (test code = 0.4 MG/DL 2206) ALKALINE PHOSPHATASE (test 144 U/L code = 2204) AST (test code = 2218) 32 U/L ALT (test code = 2219) 20 U/L COMPREHENSIVE METABOLIC [id number] 00:00:00 Test Item Value Reference Range Interpretation Comments GLUCOSE (test code = 2217) 268 MG/DL BUN (test code = 2208) 13 MG/DL CREATININE (test code = 2214) 0.71 MG/DL eGFR AMER. (test code 101 ML/MIN/1.73 = 71860) eGFR NON- AMER. (test 87 ML/MIN/1.73 code = 27933) CALC BUN/CREAT (test code = 18 RATIO 2235) SODIUM (test code = 2231) 138 MEQ/L POTASSIUM (test code = 2228) 4.3 MEQ/L CHLORIDE (test code = 2215) 100 MEQ/L CARBON DIOXIDE (test code = 22 MEQ/L 2206) CALCIUM (test code = 2209) 9.2 MG/DL PROTEIN, TOTAL (test code = 8.0 G/DL 2228) ALBUMIN (test code = 2201) 4.7 G/DL CALC GLOBULIN (test code = 3.3 G/DL 2239) CALC A/G RATIO (test code = 1.4 RATIO 2234) BILIRUBIN, TOTAL (test code = 0.4 MG/DL 2206) ALKALINE PHOSPHATASE (test 144 U/L code = 2204) AST (test code = 2218) 32 U/L ALT (test code = 2219) 20 U/L LIPID [id number] 00:00:00 Test Item Value Reference Range Interpretation Comments CHOLESTEROL (test code = 2210) 205 MG/DL TRIGLYCERIDES (test code = 2232) 262 MG/DL HDL CHOLESTEROL (test code = 2220) 41 MG/DL CALC LDL CHOL (test code = 2237) 124 MG/DL RISK RATIO LDL/HDL (test code = 3.02 RATIO 2238) LIPID [id number] 00:00:00 Test Item Value Reference Range Interpretation Comments CHOLESTEROL (test code = 2210) 205 MG/DL TRIGLYCERIDES (test code = 2232) 262 MG/DL HDL CHOLESTEROL (test code = 2220) 41 MG/DL CALC LDL CHOL (test code = 2237) 124 MG/DL RISK RATIO LDL/HDL (test code = 3.02 RATIO 2238) POCT GLUCOSE (AUTOMATED)2020-06-15 18:35:00 Test Item Value Reference Range Interpretation Comments POCT GLU (test code = 4760013188) 127 mg/dL 70-110 H Lab Interpretation (test code = Abnormal 19070-3[facility]00 Test Item Value Reference Range Interpretation Comments POCT GLU (test code = 0525497288) 151 mg/dL 70-110 H Lab Interpretation (test code = Abnormal 44738-7) [facility] Metabolic Panel (NA, K, CL, CO2, GLUCOSE, BUN, CREATININE, CA)2020-06-15 12:15:00 Test Item Value Reference Range Interpretation Comments NA (test code = 141 mmol/L 135-145 1685904373) K (test code = 3.6 mmol/L 3.5-5 4796521401) CL (test code = 105 mmol/L 98-108 5765847232) CO2 TOTAL (test code = 30 mmol/L 23-31 3162903204) AGAP (test code = 2-16 3780222106) BUN (test code = 15 mg/dL 7-23 3794838011) GLUCOSE (test code = 89 mg/dL 70-110 5656029965) CREATININE (test code 0.57 mg/dL 0.5-1.04 = 1470439649) CALCIUM (test code = 8.9 mg/dL 8.6-10.6 1011649118) eGFR Calculation mL/min/1.73m2 (Non-) (test code = 5569088145) eGFR Calculation mL/min/1.73m2 () (test code = 7259561620) ISMAEL (test code = ISMAEL) Association of [...] or urine or abnormalities in imaging tests). [facility] with [id number] 12:07:00 Test Item Value Reference Range Interpretation Comments WBC (test code = See_Comment L [Automated 6690-2) message] The sy stem which generated this [...] RDW-SD (test code = 47.9 fL 39-49.9 74118-7) RDW-CV (test code = 15.2 % 12-15.5 788-0) PLT (test code = See_Comment L [Automated 777-3) message] The sy stem which generated this result transmitted reference range : 166 - 358 10*3/ ?L. The reference r ludivina was not used to interpret this result as normal/abnormal . MPV (test code = 12.1 fL 9.5-12.9 94230-2) NRBC/100 WBC (test See_Comment [Automat ed code = 0614367160) message] The system which generated this result transmitted reference range : 0.0 - 10.0 /100 WBCs. The refer ence range was not u sed to interpret th is result as normal/abnormal . NRBC x10^3 (test code <0.01 See_Comment [Auto mated = 9126098430) message] The s ystem which generated this result transmitted reference range : 10*3/?L. The reference range was not used to interpret this result as normal/abnormal . GRAN MAT (NEUT) % 70.9 % (test code = 770-8) IMM GRAN % (test code 0.50 % = 1170800868) LYMPH % (test code = 20.7 % 736-9) MONO % (test code = 7.9 % 5905-5) EOS % (test code = 0.0 % 713-8) BASO % (test code = 0.0 % 706-2) GRAN MAT x10^3(ANC) 2.87 10*3/uL 1.88-7.09 (test code = 7359660879) IMM GRAN x10^3 (test <0.03 0-0.06 code = 5409084131) LYMPH x10^3 (test code 0.84 10*3/uL 1.32-3.29 L = 731-0) MONO x10^3 (test code 0.32 10*3/uL 0.33-0.92 L = 742-7) EOS x10^3 (test code = <0.03 0.03-0.39 L 711-2) BASO x10^3 (test code <0.03 0.01-0.07 = 704-7) Lab Interpretation Abnormal (test code = 95604-1) [facility] GLUCOSE (AUTOMATED)2020-06-14 22:51:00 Test Item Value Reference Range Interpretation Comments POCT GLU (test code = 5360119349) 162 mg/dL 70-110 H Lab Interpretation (test code = Abnormal 40468-4) [facility] GLUCOSE (AUTOMATED)2020-06-14 17:54:00 Test Item Value Reference Range Interpretation Comments POCT GLU (test code = 6343034091) 156 mg/dL 70-110 H Lab Interpretation (test code = Abnormal 54759-4) [facility] GLUCOSE (AUTOMATED)2020-06-14 14:57:00 Test Item Value Reference Range Interpretation Comments POCT GLU (test code = 4572741881) 179 mg/dL 70-110 H Lab Interpretation (test code = Abnormal 04488-4) [facility] (NA, K, CL, CO2, GLUCOSE, BUN, CREATININE, CA)2020-06-14 14:40:00 Test Item Value Reference Range Interpretation Comments NA (test code = 138 mmol/L 135-145 8263124664) K (test code = 4.1 mmol/L 3.5-5 1563404544) CL (test code = 104 mmol/L 98-108 3951878649) CO2 TOTAL (test code = 25 mmol/L 23-31 2101834723) AGAP (test code = 2-16 9164703743) BUN (test code = 15 mg/dL 7-23 1833305217) GLUCOSE (test code = 194 mg/dL 70-110 H 2237574119) CREATININE (test code = 0.49 mg/dL 0.5-1.04 L 7310062387) CALCIUM (test code = 8.7 mg/dL 8.6-10.6 9816572815) eGFR Calculation mL/min/1.73m2 (Non-) (test code = 2820062821) eGFR Calculation mL/min/1.73m2 () (test code = 3298268485) ISMAEL (test code = ISMAEL) Association of [...] tests). Lab Interpretation Abnormal (test code = 44433-0) [facility] with [id number] 12:46:00 Test Item Value Reference Range Interpretation Comments WBC (test code = See_Comment L [Automated 6690-2) message] The sy stem which generated this [...] RDW-SD (test code = 48.3 fL 39-49.9 89564-1) RDW-CV (test code = 15.1 % 12-15.5 788-0) PLT (test code = See_Comment L [Automated 777-3) message] The sy stem which generated this result transmitted reference range : 166 - 358 10*3/ ?L. The reference r ludivina was not used to interpret this result as normal/abnormal . MPV (test code = 11.8 fL 9.5-12.9 36090-7) IPF % (test code = 5.8 % 1.3-7.7 Platelet count 0193604878) measured by fluorescence method. NRBC/100 WBC (test See_Comment [Automat ed code = 9634616079) message] The system which generated this result transmitted reference range : 0.0 - 10.0 /100 WBCs. The refer ence range was not u sed to interpret th is result as normal/abnormal . NRBC x10^3 (test code <0.01 See_Comment [Auto mated = [id number]) message] The s ystem which generated this result transmitted reference range : 10*3/?L. The reference range was not used to interpret this result as normal/abnormal . GRAN MAT (NEUT) % 76.8 % (test code = 770-8) IMM GRAN % (test code 0.30 % = [id number]) LYMPH % (test code = 15.9 % 736-9) MONO % (test code = 7.0 % 5905-5) EOS % (test code = 0.0 % 713-8) BASO % (test code = 0.0 % 706-2) GRAN MAT x10^3(ANC) 2.76 10*3/uL 1.88-7.09 (test code = [id number]) IMM GRAN x10^3 (test <0.03 0-0.06 code = 0095657811) LYMPH x10^3 (test code 0.57 10*3/uL 1.32-3.29 L = 731-0) MONO x10^3 (test code 0.25 10*3/uL 0.33-0.92 L = 742-7) EOS x10^3 (test code = <0.03 0.03-0.39 L 711-2) BASO x10^3 (test code <0.03 0.01-0.07 = 704-7) Lab Interpretation Abnormal (test code = 61011-0) [facility] GLUCOSE (AUTOMATED)2020-06-14 06:24:00 Test Item Value Reference Range Interpretation Comments POCT GLU (test code = 6323816803) 272 mg/dL 70-110 H Lab Interpretation (test code = Abnormal 63442-1) [facility] GLUCOSE (AUTOMATED)2020-06-14 02:26:00 Test Item Value Reference Range Interpretation Comments POCT GLU (test code = 318 mg/dL 70-110 H Notifi ed Provider [id number]) Lab Interpretation (test Abnormal code = 51869-2) [facility] GLUCOSE (AUTOMATED)2020-06-14 02:08:00 Test Item Value Reference Range Interpretation Comments POCT GLU (test code = 5669784462) 279 mg/dL 70-110 H Lab Interpretation (test code = Abnormal 83972-1) [facility] GLUCOSE (AUTOMATED)2020-06-13 19:05:00 Test Item Value Reference Range Interpretation Comments POCT GLU (test code = 0801195695) 250 mg/dL 70-110 H Lab Interpretation (test code = Abnormal 20925-7[facility]00 Test Item Value Reference Range Interpretation Comments POCT GLU (test code = 0245912345) 242 mg/dL 70-110 H Lab Interpretation (test code = Abnormal 59485-0) [id number] 15:39:00 Test Item Value Reference Range Interpretation Comments WBC (test code = See_Comment LL [Automated 6690-2) message] The sy stem which generated this [...] RDW-SD (test code = 48.3 fL 39-49.9 72440-9) RDW-CV (test code = 15.1 % 12-15.5 788-0) PLT (test code = See_Comment L [Automated 777-3) message] The sy stem which generated this result transmitted reference range : 166 - 358 10*3/ ?L. The reference r ludivina was not used to interpret this result as normal/abnormal . MPV (test code = 11.7 fL 9.5-12.9 91758-9) IPF % (test code = 5.3 % 1.3-7.7 Platelet count [id number]) measured by fluorescence method. NRBC/100 WBC (test See_Comment [Automat ed code = 4683619625) message] The system which generated this result transmitted reference range : 0.0 - 10.0 /100 WBCs. The refer ence range was not u sed to interpret th is result as normal/abnormal . NRBC x10^3 (test code <0.01 See_Comment [Auto mated = 6173851272) message] The s ystem which generated this result transmitted reference range : 10*3/?L. The reference range was not used to interpret this result as normal/abnormal . GRAN MAT (NEUT) % 58.2 % (test code = 770-8) IMM GRAN % (test code 0.50 % = 7211262958) LYMPH % (test code = 25.5 % 736-9) MONO % (test code = 15.8 % 5905-5) EOS % (test code = 0.0 % 713-8) BASO % (test code = 0.0 % 706-2) GRAN MAT x10^3(ANC) 1.14 10*3/uL 1.88-7.09 L (test code = 4524776689) IMM GRAN x10^3 (test <0.03 0-0.06 code = 8326226014) LYMPH x10^3 (test code 0.50 10*3/uL 1.32-3.29 L = 731-0) MONO x10^3 (test code 0.31 10*3/uL 0.33-0.92 L = 742-7) EOS x10^3 (test code = <0.03 0.03-0.39 L 711-2) BASO x10^3 (test code <0.03 0.01-0.07 = 704-7) PLT ESTIMATE (test Decreased Normal A code = 9317-9) Lab Interpretation Abnormal (test code = 97363-1) [facility] [id number] 14:28:03HISTORY: Elevated D dimer and inconclusive VQ [...] lobe of the liver, stable when compared [id number] CT studies. No aggressive bone lesions. Degenerative disc disease noted at T11-T12,T9-T10 levels and there is minimal compression in the upperplate of X9juvswvhcx body. CONCLUSIONS:1. No acute pulmonary thromboembolism.2. Bilateral peripherally base ground glass hazy infiltrates, consistentwith COVID 19 pulmonary infection. No lobar pneumonia. No pleural effusion. [facility], Radiant Results Inft User - 06/13/2020 8:29 AM CSTHISTORY: Elevated D dimer and inconclusive VQ scan for PE.TECHNIQUE: Contrast-enhanced 64-mutidetector CT scan of the chest wascompleted with intravenous injection of non ionic contrast medium.Subsequently numerous sagittal, coronal and MIP reformations weregenerated.FINDINGS: Small nodules suspected in the left thyroid lobe. Trachea andcentral bronchial airways appear normal.No enlarged hilar or mediastinal lymph nodes detected. Patchy areas ofperipherally based ground glass hazy infiltrates noted with slightlynodular co nfiguration in the anterior basal segment of right [...] portion of the right lobe of the liver,stable when compared [id number] CT studies.No aggressive bone lesions. Degenerative disc disease notedat T11-T12,T9-T10 levels and there is minimal compression in the upper plate of H9ytrskfnvx body.CONCLUSIONS:1. No acute pulmonary thromboembolism.2. Bilateral peripherally base ground glass hazy infiltrates, consistentwith COVID 19 pulmonary infection. No lobar pneumonia. No pleural effusion.[facility] (NA, K, CL, CO2, GLUCOSE, BUN, CREATININE, CA)2020-06-13 13:09:00 Test Item Value Reference Range Interpretation Comments NA (test code = 135 mmol/L 135-145 4460263347) K (test code = 4.2 mmol/L 3.5-5 5342964523) CL (test code = 103 mmol/L 98-108 9753424473) CO2 TOTAL (test code = 26 mmol/L 23-31 1634119158) AGAP (test code = 2-16 6238703255) BUN (test code = 16 mg/dL 7-23 5642576056) GLUCOSE (test code = 204 mg/dL 70-110 H 3705078368) CREATININE (test code = 0.58 mg/dL 0.5-1.04 5579135490) CALCIUM (test code = 8.4 mg/dL 8.6-10.6 L 8768648269) eGFR Calculation mL/min/1.73m2 (Non-) (test code = 1170642096) eGFR Calculation mL/min/1.73m2 () (test code = 6275936160) ISMAEL (test code = ISMAEL) Association of [...] tests). Lab Interpretation Abnormal (test code = 60136-1) [facility] HospitalPrepar Plasma (in units): 1 Units~Indication: Dilutional Kjhnzhmbncvt9175-72-12 04:34:33 Test Item Value Reference Range Interpretation Comments Unit Blood Type (test O Pos code = 4410) ISBT Blood Type Code (test code = 386934) Unit Number (test code [id number] = 4411) Blood Expiration Date & Time (test code = 811534) Status Information Issued (test code = 4412) Product Identification FFP (test code = 4413) Product Code (test [id number] Performed at [facility] code = 4414) Laboratory Services - [facility] Blood [address] [place], [place] [id number] Free: [phone] A No. [id number] [facility] ONLY COVID [id number] 04:02:00COVID DMT InterpretationInterpretation/Recommendations: Molecular NAAT Tests for Active Infection with the SARS-CoV-2 Virus: The current test result is positive for the SARS-CoV-2 virus that causes COVID-19 illness. In tadc-xw-ariibggs illness, the patient may be considered no longer infectious when it has been after 10 days since symptom onset, the patient has been afebrile for 24 hours without the use of fever-reducing medications, AND other symptoms of COVID-19 are improving. However, in patientswho have been severely ill with COVID-19 or are severely immunocompromised, isolation up to 20 days a fter symptom onset is recommended. Asymptomatic patients are [...] COVID-19 testing the patient has had at [facility], including molecular NAAT testing(more commonly known as PCR testing and Rapid ID Now testing) and antibody testing. It does not takeinto account any testing that a patient has had outside of the [facility] medical record. [facility] LABORATORY SERVICESCOVID WdjsaqbPFLB-BaX-7 Rapid ID NOW (no units) ? ? Date ? Value ? 06/11/2020 ? Positive (A) ? [facility] LABORATORY SERVICESUnCorp[facility] AreaVITAMIN B12, [id number] 00:01:00 Test Item Value Reference Range Interpretation Comments VIT B12 (test code = 436 pg/mL 240-930 9153147728) ISMAEL (test code = ISMAEL) Biotin has been reported to cause a positive bias, interpret results relative to patient's use of biotin. Lab Interpretation (test Normal code = 91841-4) [facility] HospitalPO[facility] (AUTOMATED)2020-06-12 23:59:00 Test Item Value Reference Range Interpretation Comments POCT GLU (test code = 8896849108) 197 mg/dL 70-110 H Lab Interpretation (test code = Abnormal 32988-2) [facility] GLUCOSE (AUTOMATED)2020-06-12 23:59:00 Test Item Value Reference Range Interpretation Comments POCT GLU (test code = 5116251930) 280 mg/dL 70-110 H Lab Interpretation (test code = Abnormal 37701-4) [facility] LUNG PERFUSION [id number] 19:07:15 Study inconclusive for pulmonary embolism.PULMONARY PERFUSION SCAN INDICATION: Respiratory failure elevated d-dimer in COVID, concern PE TECHNIQUE: Ventilation imaging was not performed due to coronavirusprecautions. The patient received an intravenous injection of 7 mCi fcWp13t MAA, and planar images were subsequently acquired in the anterior,posterior, right anterior oblique, left anterior oblique, left posterioroblique, and right posterior oblique projections. ? Comparison made with chest imaging from 06/11/2020. FINDINGS: Posterior segment of left upper lung showed subsegmental perfusion defect.Additional subsegmental perfusion abnormalities noted also in the leftlower lung. [facility] Results Inft User - 06/12/2020 1:08 PM CSTPULMONARY PERFUSION SCANINDICATION: Respiratory failure elevated d-dimer in COVID, concern PE TECHNIQUE: Ventilation imaging was not performed due to coronavirusprecautions. The patient received an intravenous injection of 7 mCi urWl95h MAA, and planar images were subsequently acquired in the anterior,posterior, right anterior oblique, left anterior oblique, left posterioroblique, and right posterior oblique projections. Comparison made with chest imaging from 06/11/2020.FINDINGS:Posterior segment of left upper lung showed subsegmental perfusion defect.Additionalsubsegmental perfusion abnormalities noted also in the leftlower lung.IMPRESSIONStudy inconclusive for pulmonary embolism.[facility] GLUCOSE (AUTOMATED)2020-06-12 14:59:00 Test Item Value Reference Range Interpretation Comments POCT GLU (test code = 1935830330) 144 mg/dL 70-110 H Lab Interpretation (test code = Abnormal 58753-8) [facility] HospitalD-[id number] 13:11:00 Test Item Value Reference Interpretation Comments Range D-DIMER (test code = See_Comment H [Autom ated 0769413836) message] The system which generated this result [...] diagnosis. Lab Interpretation Abnormal (test code = 71908-5) [facility] HospitalABORH [id number] 12:08:53 Test Item Value Reference Range Interpretation Comments ABO & RH (test code O Positive Performe d at [facility] = 20) Laboratory [facility] Blood Bank[address] [place], [place] [address]Toll Free: [phone] A No. [id number] [facility] HospitalType and Screen - ONCE [id number] 10:05:49 Test Item Value Reference Range Interpretation Comments ABO & RH (test code O Positive Performe d at [facility] = 20) Laboratory [facility] Blood Bank[address] [place], [place] [id number] Free: [phone] A No. [id number] IAT (test code = Negative Performed a t [facility] 1185) Laboratory [facility] Blood Bank[address] [place] [phone] Free: [phone] A No. [id number] [facility] HospitalBasic Metabolic Panel (NA, K, CL, CO2, GLUCOSE, BUN, CREATININE, CA)2020-06-12 09:35:00 Test Item Value Reference Range Interpretation Comments NA (test code = 135 mmol/L 135-145 8547170886) K (test code = 3.9 mmol/L 3.5-5 5791454735) CL (test code = 104 mmol/L 98-108 8956864013) CO2 TOTAL (test code = 26 mmol/L 23-31 1658887948) AGAP (test code = 2-16 8357219068) BUN (test code = 13 mg/dL 7-23 8457643648) GLUCOSE (test code = 162 mg/dL 70-110 H 0733449823) CREATININE (test code = 0.76 mg/dL 0.5-1.04 7976639958) CALCIUM (test code = 7.7 mg/dL 8.6-10.6 L 6860440130) eGFR Calculation mL/min/1.73m2 (Non-) (test code = 6030327947) eGFR Calculation mL/min/1.73m2 () (test code = 1203149152) ISMAEL (test code = ISMAEL) Association of [...] tests). Lab Interpretation Abnormal (test code = 19959-5) [facility] with Aqvvwnftcbtt9768-82-59 09:24:00 Test Item Value Reference Range Interpretation Comments WBC (test code = See_Comment L [Automated 6690-2) message] The sy stem which generated this [...] RDW-SD (test code = 49.2 fL 39-49.9 84762-2) RDW-CV (test code = 15.3 % 12-15.5 788-0) PLT (test code = See_Comment L [Automated 777-3) message] The sy stem which generated this result transmitted reference range : 166 - 358 10*3/ ?L. The reference r ludivina was not used to interpret this result as normal/abnormal . MPV (test code = 11.3 fL 9.5-12.9 59166-4) IPF % (test code = 3.7 % 1.3-7.7 Platelet count 1708494243) measured by fluorescence method. NRBC/100 WBC (test See_Comment [Automat ed code = 6765634304) message] The system which generated this result transmitted reference range : 0.0 - 10.0 /100 WBCs. The refer ence range was not u sed to interpret th is result as normal/abnormal . NRBC x10^3 (test code <0.01 See_Comment [Auto mated = 6611388477) message] The s ystem which generated this result transmitted reference range : 10*3/?L. The reference range was not used to interpret this result as normal/abnormal . GRAN MAT (NEUT) % 56.9 % (test code = 770-8) IMM GRAN % (test code 0.70 % = 0657104592) LYMPH % (test code = 25.0 % 736-9) MONO % (test code = 17.1 % 5905-5) EOS % (test code = 0.3 % 713-8) BASO % (test code = 0.0 % 706-2) GRAN MAT x10^3(ANC) 1.73 10*3/uL 1.88-7.09 L (test code = 0302420777) IMM GRAN x10^3 (test <0.03 0-0.06 code = 3433555458) LYMPH x10^3 (test code 0.76 10*3/uL 1.32-3.29 L = 731-0) MONO x10^3 (test code 0.52 10*3/uL 0.33-0.92 = 742-7) EOS x10^3 (test code = <0.03 0.03-0.39 L 711-2) BASO x10^3 (test code <0.03 0.01-0.07 = 704-7) Lab Interpretation Abnormal (test code = 78791-8) [facility] HospitalVITAMIN D, [id number] 07:22:00 Test Item Value Reference Range Interpretation Comments VIT D 25OH (test code = 20 ng/mL 25-80 L 51163-1) ISMAEL (test code = ISMAEL) Deficiency: <20 ng/mLInsufficiency: 20-24 ng/mLOptimal: 25-80 ng/mL Lab Interpretation (test Abnormal code = 20744-6) [facility] HospitalPROCALCITONIN2021-02-24 06:16:00 Test Item Value Reference Range Interpretation Comments Procalcitonin (test 0.06 ng/mL <0.07 code = 7138859739) ISMAEL (test code = ISMAEL) INTERPRETATION OF [...] infection by physiologic stress related to trauma, samuels, chronic dialysis, metastatic cancer, surgery in the [...] lung abscess/empyema. For further information please refer to:[email or web address] Lab Interpretation Normal (test code = 22248-4) [facility] GLUCOSE (AUTOMATED)2020-06-12 02:08:00 Test Item Value Reference Range Interpretation Comments POCT GLU (test code = 6826498594) 166 mg/dL 70-110 H Lab Interpretation (test code = Abnormal 02452-2) [facility] GLUCOSE (AUTOMATED)2020-06-12 00:03:00 Test Item Value Reference Range Interpretation Comments POCT GLU (test code = 8263352311) 144 mg/dL 70-110 H Lab Interpretation (test code = Abnormal 02963-6) [facility] HospitalIRON [id number] 00:02:00 Test Item Value Reference Range Interpretation Comments IRON (test code = 6817369694) 27 ug/dL 50-160 L TIBC (test code = 3391368279) 335 ug/dL 250-410 % FE SAT (test code = 1263671416) 8 % 20-50 L Lab Interpretation (test code = Abnormal 29785-4) [facility] HospitalGLYCOSYLATED HEMOGLOBIN (A1C)2020-06-12 00:01:00 Test Item Value Reference Range Interpretation Comments HGB A1C (test code = 10.8 % 4-6 H 4548-4) ISMAEL (test code = ISMAEL) %A1C (NGSP) Interpretation (ADA)4.8-5.6 ? ? Normal or (Non-Diabetic Range)5.7-6.4 ? ? Increased Risk (Pre-Diabetic)>6.5 ?Diabetes Indicated Lab Interpretation Abnormal (test code = 54317-8) [facility] HospitalTHYROID STIMULATING [id number] 23:31:00 Test Item Value Reference Range Interpretation Comments TSH (test code = See_Comment [Automated message] 3245039593) The system [employer] generated this result transmitted ref erence range: 0.45 - 4 .70 mIU/L. The refe rence range was not u sed to interpret this result as normal/abnor mal. Lab Interpretation (test Normal code = 80627-4) [facility] HospitalN-TERMINAL [id number] 23:10:00 Test Item Value Reference Range Interpretation Comments NT-proBNP (test code 41 pg/mL See_Comment [Autom ated = 2309900989) message] The system which generated this result transmitted reference range : <=125. The reference range was not used to interpret this result as normal/abnormal . ISMAEL (test code = ISMAEL) Biotin has been reported to cause a negative bias, interpret results relative to patient's use of biotin. Lab Interpretation Normal (test code = 49170-1) [facility] HospitalMagnesium [id number] 23:00:00 Test Item Value Reference Range Interpretation Comments MAGNESIUM (test code = 5690437956) 1.6 mg/dL 1.7-2.4 L Lab Interpretation (test code = Abnormal 93453-6) [facility] HospitalTroponin [id number] 17:29:00 Test Item Value Reference Range Interpretation Comments TROPONIN I (test 0.001 ng/mL See_Comment [Automated code = 1660647941) message] The system which generated this result [...] ? Lab Interpretation Normal (test code = 14333-7) [facility] 1 [id number] 17:26:01HISTORY: Cough, fever, SOB, hypoxia. TECHNIQUE: Portable AP erect view of the chest is obtained. Comparison ismade with 06/23/2016 study. FINDINGS: No acute pneumonia. No pneumothorax or pleural effusionorpulmonary congestion detected. Cardiac size is within normal limits. CONCLUSIONS: No signs of acute cardiopulmonary disease.[facility], Radiant Results Inft User - 06/11/2020 11:27 AM CSTHISTORY: Cough, fever, SOB, hypoxia.TECHNIQUE: Portable AP erect view of the chest is obtained. Comparison isinde with 06/23/2016 study.FINDINGS: No acute pneumonia. No pneumothorax or pleural effusion orpulmonary congestion detected. Cardiac size is within normal limits. CONCLUSIONS: No signs of acute cardiopulmonary disease. [facility] HospitalCOVID-19 (ID NOW RAPID TESTING)2020-06-11 17:23:00 Test Item Value Reference Range Interpretation Comments SARS-CoV-2 Rapid ID NOW Positive Not Detected A (test code = 71482-5) ISMAEL (test code = ISMAEL) ID NOW COVID-19 Assay is an isothermal nucleic acid amplification test intended for the qualitative detection of nucleic acid from SARS-CoV-2 viral RNA in nasopharyngeal (REPAIRER AND CHECKER) specimens. It is used under Emergency Use [...] indicated. Lab Interpretation Abnormal (test code = 80740-3) [facility] Metabolic Panel (NA, K, CL, CO2, GLUCOSE, BUN, CREATININE, CA)2020-06-11 17:18:00 Test Item Value Reference Range Interpretation Comments NA (test code = 134 mmol/L 135-145 L 2348859920) K (test code = 3.8 mmol/L 3.5-5 9870048282) CL (test code = 101 mmol/L 98-108 5052899932) CO2 TOTAL (test code = 21 mmol/L 23-31 L 4821903692) AGAP (test code = 2-16 5784249250) BUN (test code = 12 mg/dL 7-23 6985511284) GLUCOSE (test code = 173 mg/dL 70-110 H 9644024763) CREATININE (test code = 0.72 mg/dL 0.5-1.04 3750890975) CALCIUM (test code = 9.0 mg/dL 8.6-10.6 4799579715) eGFR Calculation mL/min/1.73m2 (Non-) (test code = 9222886801) eGFR Calculation mL/min/1.73m2 () (test code = 2912531296) ISMAEL (test code = ISMAEL) Association of [...] tests). Lab Interpretation Abnormal (test code = 18334-4) [facility] HospitalHepatic Function Panel (ALB, T.PRO, BILI T, BU/BC, ALT, AST, ALK PHOS)2020-06-11 17:18:00 Test Item Value Reference Range Interpretation Comments TOTAL BILI (test code = 8323715155) 0.7 mg/dL 0.1-1.1 BILI UNCON (test code = 7408606526) 0.6 mg/dL 0.1-1.1 BILI CONJ (test code = 8305204977) 0.0 mg/dL 0-0.3 T PROTEIN (test code = 9695015008) 8.3 g/dL 6.3-8.2 H ALBUMIN (test code = 1306445178) 4.5 g/dL 3.5-5 ALK PHOS (test code = 3167693885) 124 U/L 34-122 H ALTv (test code = 1742-6) 50 U/L 5-35 H AST(SGOT) (test code = 1599665076) 103 U/L 13-40 H Lab Interpretation (test code = Abnormal 51228-2) [facility] HospitalCBC with [id number] 17:07:00 Test Item Value Reference Range Interpretation Comments WBC (test code = See_Comment [Automated 7433-2) message] The sy stem which generated this result transmitted reference range : 4.30 - 11.10 10*3/?L. The reference range was not used to interpret this result as normal/abnormal . RBC (test code = See_Comment [Automated 855-8) message] The sy stem which generated this [...] RDW-SD (test code = 45.5 fL 39-49.9 68901-4) RDW-CV (test code = 14.8 % 12-15.5 788-0) PLT (test code = See_Comment L [Automated 777-3) message] The sy stem which generated this result transmitted reference range : 166 - 358 10*3/ ?L. The reference r ludivina was not used to interpret this result as normal/abnormal . MPV (test code = 12.1 fL 9.5-12.9 30628-7) IPF % (test code = 4.1 % 1.3-7.7 Platelet count 6573072028) measured by fluorescence method. NRBC/100 WBC (test See_Comment [Automat ed code = 4680124452) message] The system which generated this result transmitted reference range : 0.0 - 10.0 /100 WBCs. The refer ence range was not u sed to interpret th is result as normal/abnormal . NRBC x10^3 (test code <0.01 See_Comment [Auto mated = 2130475729) message] The s ystem which generated this result transmitted reference range : 10*3/?L. The reference range was not used to interpret this result as normal/abnormal . GRAN MAT (NEUT) % 70.6 % (test code = 770-8) IMM GRAN % (test code 1.00 % = 5277517695) LYMPH % (test code = 13.8 % 736-9) MONO % (test code = 14.4 % 5905-5) EOS % (test code = 0.0 % 713-8) BASO % (test code = 0.2 % 706-2) GRAN MAT x10^3(ANC) 4.40 10*3/uL 1.88-7.09 (test code = 9191726570) IMM GRAN x10^3 (test 0.06 10*3/uL 0-0.06 code = 7757936921) LYMPH x10^3 (test code 0.86 10*3/uL 1.32-3.29 L = 731-0) MONO x10^3 (test code 0.90 10*3/uL 0.33-0.92 = 742-7) EOS x10^3 (test code = <0.03 0.03-0.39 L 711-2) BASO x10^3 (test code <0.03 0.01-0.07 = 704-7) Lab Interpretation Abnormal (test code = 11505-2) [facility] HospitalLactic Acid Whole [id number] 16:53:00 Test Item Value Reference Range Interpretation Comments LACTIC ACID (test code = 1.70 mmol/L 0.5-2.2 7383555705) Lab Interpretation (test code = Normal 47317-3) [facility]
[2022-02-03] MEDS ORDERED: NA CHLORIDE 0.9% 1,000 ML ONE (11:58)
[2022-02-03] MEDS ORDERED: NA CHLORIDE 0.9% 500 ML ONE (11:59)
--- NOTE | 2022-02-03 12:48 | RAD REPORT ---
EXAM DESCRIPTION: CT - Head C Spine Cap Wo Con - 02/03/2022 12:12 pm CLINICAL HISTORY: Head and neck injury with chest and abdominal pain status post fall TECHNIQUE: Computed axial tomography of head, neck, chest, abdomen and pelvis obtained. IV and oral contrast not requested. Coronal and sagittal reconstruction performed. All CT scans are performed using dose optimization technique as appropriate and may include automated exposure control or mA/KV adjustment according to patient size. COMPARISON: CT 2018 and 2020 FINDINGS: An intracranial bleed is not seen. The ventricles are normal in caliber. An extra-axial fluid collection is not noted. . Fluid within the sinuses/mastoids is not seen. A cervical fracture is not seen. No dislocation is noted. The evaluation of mediastinum, nela, vessels, solid organs and bowel are limited secondary to the lac k of contrast administration. A mediastinal hematoma is not noted. A pleural effusion is not seen. A lung contusion is not present. The liver,spleen, pancreas, adrenals,kidneys and bladder do not demonstrate an acute traumatic injury A cirrhotic liver. Low-density lesions within the liver are unchanged. 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 IMPRESSION: No acute intracranial abnormality is seen. A cervical fracture is not visualized. If the patient continues have symptoms to suggest intracrania l/spinal cord pathology MRI be recommended No acute traumatic abnormality involving the chest/abdomen/pelvis.
--- NOTE | 2022-02-03 13:03 | RAD REPORT ---
EXAM DESCRIPTION: [place] Single View02/03/2022 12:33 pm CLINICAL HISTORY: Cough COMPARISON: 2020 FINDINGS: The lungs appear clear of acute infiltrate. The heart is normal size IMPRESSION: No acute abnormalities displayed
--- NOTE | 2022-02-03 13:04 | RAD REPORT ---
EXAM DESCRIPTION: RAD - Knee Left 3 View - 02/03/2022 12:33 pm CLINICAL HISTORY: Left knee pain FINDINGS: No fracture or dislocation is seen. If patient continues have symptoms to suggest an occult fracture, ligamentous or meniscal injury MRI would be recommended
[2022-02-03 13:05] LABS: Urine Blood Trace-intact (Negative); Urine Glucose 2+ (Negative); Urine Protein Negative (Negative); Urine pH 5.5 (5.0-7.0)
[2022-02-03 13:18] LABS: Urine Bacteria <20 /HPF (<20); Urine Mucus Slight /HPF (None Seen); Urine RBC <5 /HPF (None Seen)
[2022-02-03 13:32] LABS: Absolute Lymphocytes (CBC) 1.2 K/uL (0.7-4.9); Lymphocytes % 17.2 % (15.3-44.8); MCV 85.3 fL (80-100); MPV 8.9 fL (7.6-11.3); RBC Red Blood Cell Count 4.57 M/uL (3.86-4.86)
[2022-02-03 13:34] LABS: Protime INR 1.17
[2022-02-03 13:54] LABS: Albumin 3.3 g/dL (3.4-5.0); Bilirubin Direct 0.1 mg/dL (0-0.2); Bilirubin Total 0.3 mg/dL (0.2-1.0); Magnesium 1.9 mg/dL (1.8-2.4); Potassium 4.3 mmol/L (3.5-5.1); Troponin High Sensitivity 4.5 pg/mL (<58.9)
[2022-02-03] MEDS ORDERED: FENTANYL CITR 100 MCG/2 ML ONE (14:24)
[2022-02-03] MEDS ORDERED: ONDANSETRON 4 MG/2 ML VIAL ONE (14:25)
--- NOTE | 2022-02-03 15:29 | ER ---
Nurse's Notes [facility] Name: Sheila Vila Age: 71 yrs Sex: Female : 1950 Arrival Date: 02/03/2022 Time: 10:27 Bed 15 Private MD: Diagnosis: Type 1 diabetes mellitus with hyperglycemia;Weakness;Fall on same level, unspecified;Pain in left leg;Syncope Near;Dizziness and giddiness;Essential (primary) hypertension Presentation: 02/03 10:34 Chief complaint: Patient states: States she had N/V last week, Fell when she felt dizzy ll1 running to restroom last week. L knee pain since. N/V, room spinning, and FLORES for past 3 days. Coronavirus screen: Vaccine status: Patient reports receiving the 2nd dose of the covid vaccine. Client denies travel out of the [place] in the last 14 days. At this time, the client does not indicate any symptoms associated with coronavirus-19. Ebola Screen: Patient denies travel to an Ebola-affected area in the 21 days before illness onset. Initial Sepsis Screen: Does the patient meet any 2 criteria? No. Patient's initial sepsis screen is negative. Does the patient have a suspected source of infection? Yes: Bone or joint infection. Risk Assessment: Do you want to hurt yourself or someone else? Patient reports no desire to harm self or others. Onset of symptoms was January 26, 2022. 10:34 Method Of Arrival: Wheelchair ll1 10:34 Acuity: SYLVESTER 3 ll1 Triage Assessment: 10:36 Headache History: The patient has had previous headaches and this one is similar to ll1 previous episodes. General: Appears uncomfortable, ill, Behavior is cooperative, appropriate for age. Pain: Complains of pain in head Quality of pain is described as aching, throbbing, Also complains of nausea. Neuro: Reports dizziness, headache. GI: Reports nausea, vomiting. Musculoskeletal: Reports pain in left leg. Historical: - Allergies: 10:36 Darvocet-N 100; ll1 10:36 PENICILLINS; ll1 10:36 Propoxyphene; ll1 10:36 Toradol; ll1 - PMHx: 10:36 COPD; Hepatitis; resolved; Pancreatitis; Diabetes - IDDM; Cirrhosis; Hypertension; ll1 Asthma; Pneumonia; - PSHx: 10:36 knee SX; hysterectomy; Cholecystectomy; ll1 - Immunization history:: Client reports receiving the 2nd dose of the Covid vaccine. - Social history:: Smoking status: Patient denies any tobacco usage or history of. - Family history:: not pertinent. Screenin:23 Abuse screen: Denies threats or abuse. Denies injuries from another. Nutritional ko1 screening: No deficits noted. Tuberculosis screening: No symptoms or risk factors identified. Fall Risk Gait- Impaired (20 pts.). Assessment: 11:11 Reassessment: No changes from previously documented assessment. Patient and/or family ss updated on plan of care and expected duration. Pain level reassessed. Patient is alert, oriented x 3, equal unlabored respirations, skin warm/dry/pink. 11:23 General: Appears in no apparent distress. uncomfortable, Behavior is calm, cooperative, ko1 appropriate for age. Pain: Complains of pain in left knee Pain currently is 10 out of 10 on a pain scale. at worst was 10 out of 10 on a pain scale. level that patient reports is acceptable is 2 out of 10 on a pain scale. Quality of pain is described as sharp, throbbing, Pain began. Neuro: No deficits noted. Cardiovascular: No deficits noted. Respiratory: No deficits noted. GI: Reports nausea, vomiting. : No deficits noted. EENT: Reports dry mouth. Derm: No deficits noted. Musculoskeletal: Reports pain in right leg and left knee. 19:28 General: Appears uncomfortable, Behavior is cooperative, quiet. General: pt requested aa9 pain medication, educated pt on need for updated vitals, and hospitalized status. pt states previous pain medication did not help at all. Pain: Complains of pain in generalized Pain currently is 9 out of 10 on a pain scale. Neuro: Level of Consciousness is awake, alert, obeys commands, Oriented to person, place, time, situation. Cardiovascular: Patient's skin is warm and dry. Respiratory: Airway is patent Respiratory effort is even, unlabored. 22:07 General: report provided to sherise. vásquez 23:30 General: pt transported to room 401 via stretcher, pt stable, AAOX4, nurse Brigette vásquez received pt at bedside. Vital Signs: 10:34 BP 153 / 102; Pulse 85; Resp 18; Temp 98.2; Pulse Ox 99% ; Weight 96.16 kg; Height 5 ll1 ft. 4 in. (162.56 cm); Pain 9/10; 11:23 BP 135 / 105; Pulse 92; Pulse Ox 99% ; ko1 15:00 BP 132 / 57; Pulse 111; ko1 16:00 BP 118 / 67; ko1 16:30 BP 139 / 63; Pulse 103; Resp 18; Pulse Ox 98% ; Pain 8/10; ko1 19:45 BP 146 / 99; Pulse 92; Resp 18 S; Pulse Ox 98% on R/A; Pain 9/10; aa9 20:15 BP 141 / 111; Pulse 84; Resp 16; Pulse Ox 100% on R/A; aa9 20:45 BP 166 / 104; Pulse 81; Resp 16 S; Pulse Ox 100% on R/A; aa9 21:00 BP 128 / 96; Pulse 85; Resp 17 S; Pulse Ox 100% on R/A; aa9 10:34 Body Mass Index 36.39 (96.16 kg, 162.56 cm) ll1 Klaudia Coma Score: 15:25 Eye Response: spontaneous(4). Verbal Response: oriented(5). Motor Response: obeys nolvia commands(6). Total: 15. ED Course: 10:27 Patient arrived in ED. mr 10:34 Arm band placed on. ll1 10:36 Triage completed. ll1 11:10 Mallory Watt, RN is Primary Nurse. ko1 11:10 Patient placed in an exam room, on a stretcher. ss 11:13 Merlin Chang MD is Attending Physician. nolvia 11:23 Patient has correct armband on for positive identification. Fall risk band placed. ko1 Placed in gown. Bed in low position. Call light in reach. Side rails up X 1. 12:14 Head C Spine Cap Wo Con In Process Unspecified. EDMS 12:35 XRAY Chest (1 view) In Process Unspecified. EDMS 12:35 Knee Left 3 View XRAY In Process Unspecified. EDMS 13:06 Urine Microscopic Only Sent. ko1 13:22 Lipase Sent. ko1 13:23 Basic Metabolic Panel Sent. ko1 13:23 CBC with Diff Sent. ko1 13:23 LFT's Sent. ko1 13:23 Magnesium Sent. ko1 13:23 NT PRO-BNP Sent. ko1 13:23 PT-INR Sent. ko1 13:23 Troponin HS Sent. ko1 15:27 Hector Jeffries is Hospitalizing Provider. [facility] 16:39 SARS-COV-2 Antigen Rapid Sent. ko1 23:25 No provider procedures requiring assistance completed. Patient admitted, IV remains in aa9 place. Administered Medications: 13:22 Drug: NS 0.9% 500 ml Route: IV; Rate: bolus; Site: left wrist; ko1 13:53 Drug: NS 0.9% 1000 ml Route: IV; Rate: 125 ml/hr; Site: left wrist; ko1 14:25 Drug: Zofran (Ondansetron) 4 mg Route: IVP; Site: left wrist; ko1 14:37 Drug: fentaNYL (PF) 25 mcg Route: IVP; Site: left wrist; ko1 15:07 Drug: fentaNYL (PF) 25 mcg Route: IVP; Site: left wrist; ko1 20:41 Drug: Phos-NaK Packet 280 mg-160 mg-250 mg 1 packets Route: PO; aa9 Medication: 13:14 VIS not applicable for this client. ko1 Outcome: 15:29 Decision to Hospitalize by Provider. nolvia 23:26 Admitted to Med/surg accompanied by nurse, via stretcher, with chart, Report called to [facility] krys 23:26 Condition: stable 23:26 Condition: stable 23:26 Instructed on the need for admit. 23:26 Patient left the ED. aa9 Signatures: Dispatcher [employer] EDMS Merlin Chang MD MD cha Rivera, Mary mr eDbra Leung RN RN ss Lewis, Lynsay, RN RN ll1 Jess Bartholomew RN RN [facility] Mallory Watt, VIOLETTE RN ko1 Corrections: (The following items were deleted from the chart) 10:37 10:34 Pulse 85bpm; Resp 18bpm; Pulse Ox 99%; Temp 98.2F; 96.16 kg; Height 5 ft. 4 in.; ll1 BMI: 36.3; Pain 9/10; ll1
--- NOTE | 2022-02-03 15:30 | EDPHYS ---
Physician Documentation [facility] Name: Sheila Vila Age: 71 yrs Sex: Female : 1950 Arrival Date: 02/03/2022 Time: 10:27 Bed 15 Private MD: RAVINDER Physician Merlin Chang HPI: 02/03 15:21 This 71 yrs old Black Female presents to ER via Wheelchair with complaints of Headache, nolvia Dizziness, Knee Injury, Vomiting. 15:21 The patient complains of pain to the top of head, forehead, left frontal area, left nolvia side of the back of head, left occipital area, left base of the skull, right frontal area, right side of the back of head, right occipital area and right base of the skull. The patient describes the headache as aching. Onset: The symptoms/episode began/occurred 3 day(s) ago. Associated signs and symptoms: Pertinent positives: vomiting, weakness. 15:22 The patient presents with decreased range of motion. The complaints affect the medial nolvia aspect of left knee. Context: The problem was sustained at home, resulted from the patient falling, the patient can partially bear weight, must have assistance. Onset: The symptoms/episode began/occurred 4 day(s) ago. Modifying factors: The symptoms are alleviated by elevating leg, remaining still, the symptoms are aggravated by movement, bending knee. Associated signs and symptoms: Pertinent positives: nausea, vomiting. Historical: - Allergies: 10:36 Darvocet-N 100; ll1 10:36 PENICILLINS; ll1 10:36 Propoxyphene; ll1 10:36 Toradol; ll1 - PMHx: 10:36 COPD; Hepatitis; resolved; Pancreatitis; Diabetes - IDDM; Cirrhosis; Hypertension; ll1 Asthma; Pneumonia; - PSHx: 10:36 knee SX; hysterectomy; Cholecystectomy; ll1 - Immunization history:: Client reports receiving the 2nd dose of the Covid vaccine. - Social history:: Smoking status: Patient denies any tobacco usage or history of. - Family history:: not pertinent. ROS: 15:22 Eyes: Negative for injury, pain, redness, and discharge, ENT: Negative for injury, nolvia pain, and discharge, Neck: Negative for injury, pain, and swelling, Cardiovascular: Negative for chest pain, palpitations, and edema, Respiratory: Negative for shortness of breath, cough, wheezing, and pleuritic chest pain, Abdomen/GI: Negative for abdominal pain, nausea, vomiting, diarrhea, and constipation, Back: Negative for injury and pain, : Negative for injury, bleeding, discharge, and swelling, Skin: Negative for injury, rash, and discoloration, Neuro: Negative for headache, weakness, numbness, tingling, and seizure, Psych: Negative for depression, anxiety, suicide ideation, homicidal ideation, and hallucinations, Allergy/Immunology: Negative for hives, rash, and allergies, Endocrine: Negative for neck swelling, polydipsia, polyuria, polyphagia, and marked weight changes, Hematologic/Lymphatic: Negative for swollen nodes, abnormal bleeding, and unusual bruising. 15:22 Constitutional: Positive for fatigue, malaise. 15:22 MS/extremity: Positive for decreased range of motion, pain, tenderness, of the left leg. Exam: 15:22 Constitutional: This is a well developed, well nourished patient who is awake, alert, nolvia and in no acute distress. Head/Face: Normocephalic, atraumatic. Eyes: Pupils equal round and reactive to light, extra-ocular motions intact. Lids and lashes normal. Conjunctiva and sclera are non-icteric and not injected. Cornea within normal limits. Periorbital areas with no swelling, redness, or edema. ENT: Nares patent. No nasal discharge, no septal abnormalities noted. Tympanic membranes are normal and external auditory canals are clear. Oropharynx with no redness, swelling, or masses, exudates, or evidence of obstruction, uvula midline. Mucous membranes moist. Neck: Trachea midline, no thyromegaly or masses palpated, and no cervical lymphadenopathy. Supple, full range of motion without nuchal rigidity, or vertebral point tenderness. No Meningismus. Chest/axilla: Normal chest wall appearance and motion. Nontender with no deformity. No lesions are appreciated. Cardiovascular: Regular rate and rhythm with a normal S1 and S2. No gallops, murmurs, or rubs. Normal PMI, no JVD. No pulse deficits. Respiratory: Lungs have equal breath sounds bilaterally, clear to auscultation and percussion. No rales, rhonchi or wheezes noted. No increased work of breathing, no retractions or nasal flaring. Abdomen/GI: Soft, non-tender, with normal bowel sounds. No distension or tympany. No guarding or rebound. No evidence of tenderness throughout. Back: No spinal tenderness. No costovertebral tenderness. Full range of motion. Female : Normal external genitalia. Psych: Awake, alert, with orientation to person, place and time. Behavior, mood, and affect are within normal limits. 15:22 Skin: Appearance: normal except for affected area, Color: normal in color, Temperature: normal temperature, Moisture: normal moisture, petechiae, not noted, ecchymosis, not noted, swelling, noted on the medial aspect of left knee, that are mild. 18:40 ECG was reviewed by the Attending Physician. [facility] Vital Signs: 10:34 BP 153 / 102; Pulse 85; Resp 18; Temp 98.2; Pulse Ox 99% ; Weight 96.16 kg; Height 5 ll1 ft. 4 in. (162.56 cm); Pain 9/10; 11:23 BP 135 / 105; Pulse 92; Pulse Ox 99% ; ko1 15:00 BP 132 / 57; Pulse 111; ko1 16:00 BP 118 / 67; ko1 16:30 BP 139 / 63; Pulse 103; Resp 18; Pulse Ox 98% ; Pain 8/10; ko1 19:45 BP 146 / 99; Pulse 92; Resp 18 S; Pulse Ox 98% on R/A; Pain 9/10; aa9 20:15 BP 141 / 111; Pulse 84; Resp 16; Pulse Ox 100% on R/A; aa9 20:45 BP 166 / 104; Pulse 81; Resp 16 S; Pulse Ox 100% on R/A; aa9 21:00 BP 128 / 96; Pulse 85; Resp 17 S; Pulse Ox 100% on R/A; aa9 10:34 Body Mass Index 36.39 (96.16 kg, 162.56 cm) ll1 [place] Coma Score: 15:25 Eye Response: spontaneous(4). Verbal Response: oriented(5). Motor Response: obeys nolvia commands(6). Total: 15. MDM: 11:13 Patient medically screened. [facility] 15:25 Differential diagnosis: closed fracture, contusion, abrasion, tendonitis, cluster nolvia headache, cerebral vascular accident, hypertensive headache, hyponatremia, migraine, sinusitis, subarachnoid bleed, subdural hematoma, temporal arteritis, tension headache, traumatic injuries. Differential diagnosis: closed head injury, contusion, fracture, multiple trauma, sprain, strain. Data reviewed: vital signs, nurses notes, lab test result(s), EKG, radiologic studies, CT scan, plain films. Data interpreted: groundwater monitoring technician: rate is 92 beats/min, rhythm is regular, Pulse oximetry: on room air is 99 %. Test interpretation: by ED physician or midlevel provider: ECG, plain radiologic studies. Counseling: I had a detailed discussion with the patient and/or guardian regarding: the historical points, exam findings, and any diagnostic results supporting the discharge/admit diagnosis, lab results, radiology results, the need for further work-up and treatment in the hospital. 02/03 11:33 Order name: Basic Metabolic Panel; Complete Time: 15:13 [facility] 02/03 11:33 Order name: CBC with Diff; Complete Time: 15:13 [facility] 02/03 11:33 Order name: LFT's; Complete Time: 15:13 [facility] 02/03 11:33 Order name: Magnesium; Complete Time: 15:13 [facility] 02/03 11:33 Order name: NT PRO-BNP; Complete Time: 15:13 [facility] 02/03 11:33 Order name: PT-INR; Complete Time: 15:13 [facility] 02/03 11:33 Order name: Troponin HS; Complete Time: 15:13 [facility] 02/03 11:33 Order name: Lipase; Complete Time: 15:13 [facility] 02/03 11:33 Order name: Urine Microscopic Only; Complete Time: 15:13 [facility] 02/03 13:05 Order name: Urine Dipstick-Ancillary; Complete Time: 15:13 EDMO 02/03 15:20 Order name: AMMONIA; Complete Time: 18:39 [facility] 02/03 16:11 Order name: SARS-COV-2 Antigen Rapid 02/03 16:54 Order name: SARS-COV-2 Antigen Rapid; Complete Time: 18:39 EDMO 02/03 17:19 Order name: Phosphorus; Complete Time: 18:39 EDMO 02/03 11:33 Order name: XRAY Chest (1 view); Complete Time: 15:13 [facility] 02/03 11:33 Order name: EKG; Complete Time: 11:34 [facility] 02/03 11:34 Order name: Knee Left 3 View XRAY; Complete Time: 15:13 [facility] 02/03 12:03 Order name: Head C Spine Cap Wo Con; Complete Time: 15:13 EDMO 02/03 15:20 Order name: US Extremity Venous W Compression Joby [facility] 02/03 16:27 Order name: US; Complete Time: 18:39 EDMS 02/03 17:19 Order name: Magnesium; Complete Time: 18:39 EDMS 02/03 17:29 Order name: Protime (+INR); Complete Time: 18:39 EDMS 02/03 17:38 Order name: Glucose, Ancillary Testing; Complete Time: 18:39 EDMO 02/03 11:33 Order name: Cardiac monitoring; Complete Time: 11:56 [facility] 02/03 11:33 Order name: EKG - Nurse/Tech; Complete Time: 11:56 [facility] 02/03 11:33 Order name: IV Saline Lock; Complete Time: 13:22 [facility] 02/03 11:33 Order name: Labs collected and sent; Complete Time: 13:23 [facility] 02/03 11:33 Order name: O2 Per Protocol; Complete Time: 11:56 [facility] 02/03 11:33 Order name: O2 Sat Monitoring; Complete Time: 11:56 [facility] 02/03 11:33 Order name: Urine Dipstick-Ancillary (obtain specimen); Complete Time: 13:06 [facility] 02/03 15:39 Order name: Physical Therapy Consult EDMS EC:40 Rate is 88 beats/min. Rhythm is regular. QRS [place] is Normal. AR interval is normal. QRS nolvia interval is normal. QT interval is normal. No Q waves. T waves are Normal. No ST changes noted. Clinical impression: Normal ECG and No evidence of ischemia. Interpreted by me. Reviewed by me. Administered Medications: 13:22 Drug: NS 0.9% 500 ml Route: IV; Rate: bolus; Site: left wrist; ko1 13:53 Drug: NS 0.9% 1000 ml Route: IV; Rate: 125 ml/hr; Site: left wrist; ko1 14:25 Drug: Zofran (Ondansetron) 4 mg Route: IVP; Site: left wrist; ko1 14:37 Drug: fentaNYL (PF) 25 mcg Route: IVP; Site: left wrist; ko1 15:07 Drug: fentaNYL (PF) 25 mcg Route: IVP; Site: left wrist; ko1 20:41 Drug: Phos-NaK Packet 280 mg-160 mg-250 mg 1 packets Route: PO; aa9 Disposition Summary: 02/03/22 15:29 Hospitalization Ordered Hospitalization Status: Observation nolvia Provider: Hector Jeffries cha Location: Telemetry/MedSurg (observation) nolvia Condition: Fair nolvia Problem: new nolvia Symptoms: have improved nolvia Bed/Room Type: Standard nolvia Room Assignment: 401(02/03/22 20:31) cg Diagnosis - Type 1 diabetes mellitus with hyperglycemia nolvia - Weakness nolvia - Fall on same level, unspecified nolvia - Pain in left leg nolvia - Syncope Near nolvia - Dizziness and giddiness nolvia - Essential (primary) hypertension nolvia Forms: - Medication Reconciliation Form nolvia - SBAR form nolvia Signatures: Dispatcher [employer] EDMerlin Vale MD MD cha Garcia, Cindy, RN RN cg Dimple Boyd RN RN ll1 Jess Bartholomew RN RN aa9 Mallory Watt RN RN ko1 Corrections: (The following items were deleted from the chart) 20:31 15:29 nolvia cg
[2022-02-03] MEDS ORDERED: GUAIFENESIN/CODEINE 5ML UCUP PO PRN (15:54)
[2022-02-03] MEDS ORDERED: HOME MED 1 EA UNK (Metoclopramide Hcl [Reglan] 10 MG Tablet) PO PRN (15:54)
[2022-02-03] MEDS ORDERED: ACETAMINOPHEN 325 MG TABLET PO PRN (15:58)
[2022-02-03] MEDS ORDERED: ONDANSETRON 4 MG/2 ML VIAL IV PRN (15:58)
[2022-02-03] MEDS ORDERED: D50W 25 GM/50 ML SYRINGE IV PRN (16:02)
[2022-02-03] MEDS ORDERED: GLUCAGON 1 MG/VIAL IM PRN ×2 (16:02→16:05)
--- NOTE | 2022-02-03 16:07 | P.HP ---
Certification for Inpatient Patient admitted to: Observation With expected LOS: <2 Midnights Patient will require the following post-hospital care: None Practitioner: I am a practitioner with admitting privileges, knowledge of patient current condition, hospital course, and medical plan of care. Services: Services provided to patient in accordance with Admission requirements found in Title 42 Section 412.3 of the Code of Federal Regulations Patient History Date of Service: 02/03/22 Reason for admission: Syncope, vertigo and dizziness History of Present Illness: Patient is a 71-year-old female with a past medical history significant for DM 2, hypertension, cirrhosis, asthma who presents with complaint of dizziness and vertigo that has been ongoing for the past 5 days. Patient reported that she had a syncopal episode 5 days ago. Patient unsure if she hit her head or not but remembers falling on her left side. Patient reported subsequent left knee pain as well as left thumb pain. Patient rated pain as 9/10 in severity and described pain as sharp\shooting in quality. Patient reported associated signs and symptoms of lightheadedness, headache, nausea and a one-time episode of vomiting. Patient denies any other signs and symptoms. Symptoms are aggravated or relieved by nothing. Patient decided to present to the hospital due to worsening symptoms. Allergies ketorolac Allergy (Severe, Verified 05/15/14 01:15) Hives/Rash ketorolac tromethamine [From Toradol] Allergy (Mild, Verified 03/14/12 17:55) Hives/Rash Penicillins Allergy (Mild, Verified 03/14/12 17:55) Itching propoxyphene napsylate [From Darvocet-N 100] Allergy (Mild, Verified 05/19/13 00:28) Nausea/Vomiting Home Medications: ALPRAZolam [Xanax*] 2 mg PO TID 08/03/16 Clonidine HCl [Catapres*] 0.2 mg PO DAILY 03/25/17 Insulin Degludec [Tresiba Flextouch U-200] 80 units SQ DAILY WITH BREAKFAST 03/25/17 Montelukast [Singulair*] 10 mg PO DAILY 03/25/17 Quetiapine Fumarate [Seroquel] 800 mg PO BEDTIME 03/25/17 Guaifen W/Codeine Syrup [ROBITUSSIN A-C Syrup*] 5 ml PO QID PRN #1 bottle 1 06/03/17 Mometasone/Formoterol [Dulera 200 Mcg/5 Mcg Inhaler] 2 puff IH BID #1 inhaler 04/02/18 Umeclidinium [place] [Incruse Ellipta] 62.5 mcg IH DAILY #30 blst.w.dev 04/02/18 Hydrocodone 10/APAP 325 [[place] 10/325*] 1 tab PO TID 09/06/18 Amlodipine [Norvasc*] 10 mg PO BID 12/29/18 Metoclopramide HCl [Reglan] 10 mg PO DAILY PRN 12/29/18 Nepafenac [Ilevro] 1 drop OPTH QID 12/29/18 Pantoprazole [Protonix Tab*] 40 mg PO DAILY 12/29/18 - Past Medical/Surgical History Diabetic: Yes -: CAD -: COPD -: Diabetes mellitus type 2 -: Hypertension -: Chronic pain syndrome -: Liver cirrhosis, fatty liver -: Chronic thrombocytopenia -: Hepatitis-C -: History CVA -: Morbid obesity -: Obstructive sleep apnea -: glaucoma -: Right knee surgery -: Cholecystectomy -: Hysterectomy Psychosocial/ Personal History: The patient is single. She has 3 children. She currently lives with her granddaughter. - Family History Father -: Cancer Mother -: Lung disease, Cancer, Other (see notes) Notes: brain cancer - Social History Smoking Status: Unknown if ever smoked Alcohol use: No CD- Drugs: No Caffeine use: Yes Place of Residence: Home Review of Systems General: Unremarkable Eyes: Unremarkable ENT: Unremarkable Respiratory: Unremarkable Gastrointestinal: Nausea, Vomiting Musculoskeletal: Other (Left knee pain, Left thumb pain) Integumentary: Unremarkable Neurological: Other (vertigo, dizziness, headache, lightheadness) Lymphatics: Unremarkable Physical Examination - Physical Exam General: Alert, In no apparent distress, Oriented x3, Cooperative, Mild distress HEENT: Atraumatic, PERRLA, Mucous membr. moist/pink, EOMI, Sclerae nonicteric Neck: Supple, 2+ carotid pulse no bruit, No LAD, Without JVD or thyroid abnormality Respiratory: Clear to auscultation bilaterally, Normal air movement Cardiovascular: Normal pulses, Regular rate/rhythm, Normal S1 S2 Capillary refill: <2 Seconds Gastrointestinal: Normal bowel sounds, Soft and benign, No tenderness Musculoskeletal: No clubbing, No erythema, Tenderness Integumentary: No rashes, No breakdown, No significant lesion Neurological: Normal gait, Normal speech, Normal tone, Normal affect Lymphatics: No axilla or inguinal lymphadenopathy - Studies Laboratory Data (last 24 hrs) 02/03/22 13:27: PT 12.9 H, INR 1.17 02/03/22 13:27: WBC 7.20, Hgb 13.2, Hct 39.0, Plt Count 136 L 02/03/22 13:27: Sodium 136, Potassium 4.3, BUN 12, Creatinine 0.91, Glucose 291 H, Magnesium 1.9, Total Bilirubin 0.3, AST 27, ALT 35, Alkaline Phosphatase 182 H, Lipase 73 Assessment and Plan - Plan --Syncope. Patient complained of dizziness\lightheadedness that has been ongoing for the past [address] Head\cervical unremarkable for any abnormal findings. Echocardiogram and carotid Doppler pending. We will get some orthostatic vital signs. Fall precaution. --Vertigo. MRI brain pending. Patient placed on meclizine. Neurology consulted. Will await further recommendations. --DM2 with hyperglycemia. BS monitoring with sliding scale insulin, Premeal insulin and insulin glargine. --Hypertension. Poorly controlled. Continue home medication and hydralazine prn. --Liver cirrhosis. Stable. Continue supportive care. --Anxiety disorder. Continue home medication. --Asthma\COPD. Stable. Continue home medication. --GERD. Continue Protonix. --Nausea and vomiting. Antiemetics on board. Continue supportive care. --CKD 2. Stable. We will continue to monitor renal functions. --Left knee pain. MRI left knee for further evaluation. We will manage pain with current pain medication regimen. PT eval and treat. -- Thrombocytopenia. Likely secondary to liver disease. Continue supportive care. --Obesity. Likely secondary to excess calories intake. Patient counseled on weight reduction, diet and exercise therapy. --DVT prophylaxis with SCDs. Discharge Plan: Home - Advance Directives Does patient have a Living Will: No Does patient have a Durable POA for Healthcare: No - Code Status/Comfort Care Code Status Assessed: Yes Code Status: Full Code Physician Review: Patient Assessed, Agree with Above Assessment and Plan Critical Care: No
--- NOTE | 2022-02-03 16:26 | RAD REPORT ---
EXAM DESCRIPTION: USExtrem Venous W Compress Bil02/03/2022 4:15 pm CLINICAL HISTORY: Leg pain COMPARISON: 2020 FINDINGS: The common femoral, superficial femoral, popliteal and posterior tibial veins bilaterally are compressible and demonstrate augmentation. Doppler demonstrates good flow. Grayscale, color and spectral analysis performed on all vessels IMPRESSION: No evidence of deep venous thrombosis involving either lower extremity.
[2022-02-03] MEDS ORDERED: D10W 250 ML BAG IV PRN (16:30)
[2022-02-03] MEDS: INSULIN -REGULAR HUMAN 50 UNIT/0.5 ML ML SQ SCH ×2 (16:30→21:00)
[2022-02-03] MEDS ORDERED: METOCLOPRAMIDE 5 MG TAB PO PRN (16:51)
[2022-02-03 16:54] LABS: SARS-CoV-2 Antigen Rapid Res Negative (Negative)
[2022-02-03] MEDS: NEPAFENAC OPTH SCH ×2 (17:00→21:00)
[2022-02-03] MEDS: INSULIN LISPRO 100 UNIT/1 ML SQ SCH (17:00)
[2022-02-03 17:18] VITALS: BMI 36.8
[2022-02-03 17:19] LABS: Magnesium 1.8 mg/dL (1.8-2.4); Phosphorus 1.9 mg/dL (2.5-4.9)
[2022-02-03] MEDS ORDERED: HYDROCODONE/APAP 10/325 TAB ONE (17:21)
[2022-02-03 17:28] LABS: Protime INR 1.15
[2022-02-03] MEDS: HYDROCODONE/APAP 10/325 TAB PO SCH ×2 (17:35→23:34)
[2022-02-03] MEDS ORDERED: MECLIZINE HCL 12.5 MG TAB PO PRN (18:41)
[2022-02-03] MEDS ORDERED: HYDRALAZINE HCL 20 MG/ML VIAL IV PRN (19:56)
[2022-02-03] MEDS ORDERED: POTASS/SODIUM PHOSPHATE 1 PKT POWD.PACK ONE (20:17)
[2022-02-03] MEDS: HOME MED 1 EA UNK [DULERA 200/5 (MOMETASONE/FORMOTEROL) INHALER] IH SCH (21:00)
[2022-02-03] MEDS ORDERED: QUETIAPINE 100MG TAB PO SCH (21:00)
[2022-02-03] MEDS ORDERED: QUETIAPINE FUMARATE 400 MG PO SCH (21:00)
[2022-02-03] MEDS: AMLODIPINE 10 MG TAB PO SCH (23:35)
[2022-02-03] MEDS: ALPRAZOLAM 1 MG TABLET PO SCH (23:35)
--- NOTE | 2022-02-04 06:12 | RAD REPORT ---
EXAM DESCRIPTION: - CP - 02/04/2022 5:41 am CLINICAL HISTORY: Dizziness, Syncope COMPARISON: CAROTID ARTERY BILATERAL dated 06/28/2008 TECHNIQUE: Real-time sonographic evaluation of bilateral carotid and vertebral systems was performed . Mead scale and Doppler interrogation were performed with waveform tracing bilaterally. FINDINGS: Normal high resistance waveforms are noted in both external carotid arteries. The common c arotid arteries and internal carotid arteries show normal low resistance waveforms. Soft plaquing changes are present in the carotid vasculature, primarily in each bulb. Visually the pl aquing changes do not cause hemodynamically significant degrees of stenosis. Peak systolic and end di astolic velocity values and the ICA/CCA ratios are in the non-hemodynamically significant range. Both vertebral arteries appear to have antegrade flow. Both vessels were difficult to visualize. Velocity values and ratios were recorded and are retained in the patient's imaging records. Exam was technically limited due to patient's inability to fully cooperate with the examination. IMPRESSION: Soft plaquing changes primarily in each carotid bulb. Visually no significant degree of stenosis seen. Velocity values and ratios also indicate no hemodynamically significant degree of stenosis.
[2022-02-04 06:29] LABS: Potassium 3.7 mmol/L (3.5-5.1)
[2022-02-04 06:58] LABS: Absolute Lymphocytes (CBC) 0.6 K/uL (0.7-4.9); Hematocrit 35.7 % (36.0-45.0); Lymphocytes % 9.7 % (15.3-44.8); MPV 9.6 fL (7.6-11.3)
[2022-02-04] MEDS: INSULIN -REGULAR HUMAN 50 UNIT/0.5 ML ML SQ SCH ×3 (07:30→12:41)
[2022-02-04] MEDS ORDERED: INSULIN GLARGINE 100 UNIT/ML SQ SCH (08:00)
[2022-02-04] MEDS: INSULIN LISPRO 100 UNIT/1 ML SQ SCH ×2 (08:00→12:40)
[2022-02-04] MEDS ORDERED: HOME MED 1 EA UNK (Insulin Degludec [Tresiba Flextouch U-200] 200 UNIT/ML Insuln.Pen) SQ SCH (08:00)
--- NOTE | 2022-02-04 08:33 | RAD REPORT ---
EXAM DESCRIPTION: MRI - Brain Wo Cont - 02/04/2022 8:13 am CLINICAL HISTORY: Persistent Dizziness and Vertigo COMPARISON: Brain Wo Cont dated 05/12/2016; Carotid Artery Bilateral dated 02/04/2022; Head C Spine C ap Wo Con dated 02/03/2022 TECHNIQUE: Sagittal T1-weighted images were obtained along with axial PD, heavily T2-weighted and T2 -FLAIR images. Axial DWI and ADC mapping sequences were also obtained along with coronal heavily T2-w eighted images. FINDINGS: No intracranial hemorrhage, mass or acute infarction. There is no edema or shift of midlin e structures. No extra-axial fluid collections. Mead-matter/white matter junction is preserved. Signa l voids are seen as a normal finding in the major intracranial vessels. No cortical edema or sulcal e ffacement. No measurable atrophy changes seen. Ventricles are normal size. No chronic ischemic change s are seen. No globe or orbital content abnormality identified. No sella or supra sella abnormality. Mastoid air cells are clear. No middle ear fluid suspected. Paranasal sinuses are clear of any signif icant finding. No suspicious finding in the diploic space. Patient has normal variant hyperostosis frontalis interna . IMPRESSION: Negative non-contrast MRI of the Brain.
[2022-02-04] MEDS: NEPAFENAC OPTH SCH ×2 (09:00→12:22)
[2022-02-04] MEDS ORDERED: cloNIDine HCL 0.1 MG TAB PO SCH (09:00)
[2022-02-04] MEDS ORDERED: HOME MED 1 EA UNK (Clonidine Hcl [Catapres*] 0.2 MG Tablet) PO SCH (09:00)
[2022-02-04] MEDS ORDERED: POTASSIUM CL SA 10 MEQ TAB PO ONE (09:00)
[2022-02-04] MEDS: ALPRAZOLAM 1 MG TABLET PO SCH ×2 (09:00→14:00)
[2022-02-04] MEDS: HOME MED 1 EA UNK [DULERA 200/5 (MOMETASONE/FORMOTEROL) INHALER] IH SCH (09:00)
[2022-02-04] MEDS ORDERED: UMECLIDINIUM BROMIDE 62.5 MCG IH SCH (09:00)
[2022-02-04] MEDS ORDERED: MONTELUKAST 10 MG TAB PO SCH (09:00)
[2022-02-04] MEDS ORDERED: PANTOPRAZOLE 40MG TABLET PO SCH (09:00)
--- NOTE | 2022-02-04 09:24 | RAD REPORT ---
EXAM DESCRIPTION: MRI - Knee Left Wo Cont - 02/04/2022 9:00 am CLINICAL HISTORY: Knee pain following fall COMPARISON: Left knee 02/03/2022 TECHNIQUE: Sagittal and axial PD and T2 fat sat sequences obtained along with coronal T1 and T2 fat sat sequences. FINDINGS: No occult fracture, bone bruise or marrow replacing process. Subcortical degenerative cyst ic changes are seen along the lateral margin of the tibial spine. Small subcortical degenerative cyst s are seen in the patella. Mild to moderate femoral and patella chondromalacia changes are present. N o full-thickness osteochondral defect. The anterior cruciate and posterior cruciate ligament are intact. No lateral collateral ligament inju ry identifiable. There is a small tear at the deep meniscofemoral MCL fibers at the meniscal attachme nt. Small tear is present in the posterior horn of the medial meniscus extending to the inferior maldonado cular surface. No free or displaced meniscal tissue. Patella tendon and quadriceps tendon show no significant findings. Medial and lateral patella suppor t structures are intact. Minimal joint effusion is present. No lipoma hemarthrosis or intra-articular loose body. IMPRESSION: No fracture, bone bruise or acute traumatic injury to the bony structures of the knee. Patient has up to moderate severity patella and femoral chondromalacia with no full-thickness osteoch ondral defects identified. Small tear in the posterior horn medial meniscus with no free or displaced meniscal tissue. There als o appears to be a small tear at the medial collateral ligament meniscofemoral deep fibers at the meni scus attachment. Small joint effusion.
[2022-02-04] MEDS: AMLODIPINE 10 MG TAB PO SCH (09:39)
[2022-02-04 09:52] VITALS: O2SAT 100
[2022-02-04] MEDS: HYDROCODONE/APAP 10/325 TAB PO SCH (10:42)
[2022-02-04] MEDS ORDERED: MORPHINE 2 MG/ML SYR IV PRN (11:03)
[2022-02-04] MEDS ORDERED: HYDROCODONE/APAP 10/325 TAB PO PRN (15:08)
[2022-02-04 16:28] VITALS: BP 123/58; TEMP 97.3
--- NOTE | 2022-02-04 16:35 | EKG ---
Test Date: 2022-02-03 Test Time: 11:56:41 Deicer Repairer: ESPERANZA MEASUREMENT RESULTS: Intervals: Rate: 88 FL: 164 QRSD: 68 QT: 360 QTc: 435 Zortman: P: 49 FL: 164 QRS: 45 T: 31 INTERPRETIVE STATEMENTS: Normal sinus rhythm Normal ECG Compared to ECG 06/21/2020 17:20:29 Sinus tachycardia no longer present T-wave abnormality no longer present Electronically Signed On 02-04-22 16:34:33 CDT by Jitendra Otto
--- NOTE | 2022-02-04 17:09 | P.DS ---
Admission Date: 02/03/22 Discharge Date: 02/04/22 Disposition: ROUTINE DISCHARGE Discharge Condition: FAIR Reason for Admission: Syncope, vertigo and dizziness - Problems (1) Syncope Status: Acute (2) Vertigo Status: Acute (3) Knee pain Status: Acute (4) Fall Status: Acute (5) Chronic pain syndrome Onset Date: 08/04/16 Status: Chronic (6) Cirrhosis of liver Onset Date: 10/29/14 Status: Chronic Qualifiers: Hepatic cirrhosis type: unspecified hepatic cirrhosis Ascites presence: without ascites Qualified Code(s): K74.60 - Unspecified cirrhosis of liver (7) Diabetes mellitus Onset Date: 08/04/16 Status: Chronic Qualifiers: Diabetes mellitus type: type 2 Diabetes mellitus half-way insulin use: without half-way use Diabetes mellitus complication status: without complication Qualified Code(s): E11.9 - Type 2 diabetes mellitus without complications Brief History of Present Illness: Patient is a 71-year-old female with a past medical history significant for DM 2, hypertension, cirrhosis, asthma who presented with complaint of dizziness and vertigo that has been ongoing for 5 days. Patient reported that she had a syncopal episode 5 days ago. Patient unsure if she hit her head or not but remembers falling on her left side. Patient reported subsequent left knee pain as well as left thumb pain. Patient rated pain as 9/10 in severity and described pain as sharp\shooting in quality. Patient reported associated signs and symptoms of lightheadedness, headache, nausea and a one-time episode of vomiting. CT trauma negative. Patient was hospitalized for further management. Hospital Course: Patient placed on observation on the medical floor. MRI of the brain did not show any acute changes. MRI of the knee showed small tear in the posterior horn medial meniscus with no free or displaced meniscal tissue. There also appeared to be a small tear at the medial collateral ligament meniscofemoral deep fibers at the meniscus attachment and a small joint effusion. Patient is prescribed a knee brace. Pain was managed with IV morphine and a home dose norco. She was seen by PT and patient was able to ambulate 300 feet with a walker. Dizziness resolved, vitals are stable, patient is deemed stable for discharge. I am told by social service patient refused home health. Vital Signs/Physical Exam: Temp Pulse Resp BP Pulse Ox 97.3 F 101 H 18 123/58 L 97 02/04/22 16:00 02/04/22 16:00 02/04/22 16:00 02/04/22 16:00 02/04/22 16:00 General: Alert, In no apparent distress, Oriented x3 HEENT: Mucous membr. moist/pink Neck: JVD not distended Respiratory: Clear to auscultation bilaterally, Normal air movement Cardiovascular: No edema, Regular rate/rhythm, Normal S1 S2 Gastrointestinal: Normal bowel sounds, Soft and benign, Non-distended Musculoskeletal: Tenderness (left knee) Integumentary: No rashes Neurological: Normal strength at 5/5 x4 extr Laboratory Data at Discharge: WBC 6.10 K/uL (4.3-10.9) 02/04/22 06:00 Hgb 11.7 g/dL (12.0-15.0) L D 02/04/22 06:00 Hct 35.7 % (36.0-45.0) L 02/04/22 06:00 Plt Count 93 K/uL (152-406) L D 02/04/22 06:00 PT 12.6 SECONDS (9.5-12.5) H 02/03/22 16:56 INR 1.15 02/03/22 16:56 Sodium 138 mmol/L (136-145) 02/04/22 06:00 Potassium 3.7 mmol/L (3.5-5.1) D 02/04/22 06:00 BUN 12 mg/dL (7-18) 02/04/22 06:00 Creatinine 0.86 mg/dL (0.55-1.3) 02/04/22 06:00 Glucose 258 mg/dL (74-106) H 02/04/22 06:00 Phosphorus 3.3 mg/dL (2.5-4.9) 02/04/22 06:00 Magnesium 1.8 mg/dL (1.8-2.4) 02/03/22 16:56 Total Bilirubin 0.3 mg/dL (0.2-1.0) 02/03/22 13:27 AST 27 U/L (15-37) 02/03/22 13:27 ALT 35 U/L (12-78) 02/03/22 13:27 Alkaline Phosphatase 182 U/L (45-117) H 02/03/22 13:27 Lipase 73 U/L (73-393) 02/03/22 13:27 Home Medications: ALPRAZolam [Xanax*] 2 mg PO TID 08/03/16 Clonidine HCl [Catapres*] 0.2 mg PO DAILY 03/25/17 Insulin Degludec [Tresiba Flextouch U-200] 80 units SQ DAILY WITH BREAKFAST 03/25/17 Montelukast [Singulair*] 10 mg PO DAILY 03/25/17 Quetiapine Fumarate [Seroquel] 800 mg PO BEDTIME 03/25/17 Hydrocodone 10/APAP 325 [[place] 10/325*] 1 tab PO TID 09/06/18 Amlodipine [Norvasc*] 10 mg PO BID 12/29/18 Pantoprazole [Protonix Tab*] 40 mg PO DAILY 12/29/18 Guaifen W/Codeine Syrup [ROBITUSSIN A-C Syrup*] 5 ml PO QID PRN 02/04/22 Meclizine HCl [Antivert*] 25 mg PO Q6H PRN #20 tab 02/04/22 Nepafenac [Ilevro] 1 drop OPTH QID 02/04/22 Umeclidinium [place] [Incruse Ellipta] 62.5 mcg IH DAILY 02/04/22 New Medications: Meclizine HCl [Antivert*] 25 mg PO Q6H PRN #20 tab PRN Reason: Dizziness Followup: Kareem Rich MD [ASSOCIATE-ACTIVE - CAN ADMIT] - Unknown,U [Primary Care Provider] -
[2022-02-04] MEDS ORDERED: GABAPENTIN 300 MG CAP PO SCH (21:00)
--- NOTE | 2022-02-05 00:52 | CON ---
Reason For Consultation: Consultation called because of vertigo. History Of Present Illness: Ms. Vila is a 71-year-old right-handed patient with hypertension, diab etes mellitus, and chronic pain who comes to [facility] after a syncopal episode. The event occurred 5 days prior to admission. She apparently fell on the left and hit her head with possibili ty of brief loss of consciousness. She did hit the left knee and the left thumb, which she reports o n evaluation showed it to be sprained. She also has ongoing pain in the left knee where an MRI today showed a small tear in the posterior horn of the medial meniscus with no displaced meniscal tissue. There is also another small tear in the medial collateral ligament at the deep fibers of the menisca l attachment. She, in addition had moderate severity patella and femoral chondromalacia. Her brain MRI showed no acute ischemic or hemorrhagic findings and no atrophy was identified. She does report improving sensation of vertigo as though the room is spinning while she is sitting still. She denies nausea or vomiting. She is able to mobilize without difficulty. She did ambulate over 300 feet wit h a front wheel walker with contact guard to minimum assistance. She did have a slow kylee and did require verbal cues to correct her direction. Past Medical History: Coronary artery disease, COPD, diabetes mellitus type 2, hypertension, chronic low back pain on narcotic medications, fatty liver, chronic thrombocytopenia, hepatitis C, morbid ob esity, and obstructive sleep apnea. Past Surgical History: Right knee surgery, cholecystectomy, and hysterectomy. Allergies: KETOROLAC, PENICILLIN, AND PROPOXYPHENE. Home Medications: Alprazolam 2 mg 3 times daily, Catapres 0.2 mg daily, Tresiba FlexTouch 80 units s ubcutaneously daily, Singulair 10 mg daily, Seroquel at bedtime, [place] 10/325 three times daily, Norv asc 10 mg twice daily, Reglan 10 mg daily, and Protonix 40 mg daily. Family History: Cancer in father and lung disease and cancer in mother. Social History: She lives with her granddaughter. Denies any tobacco or alcohol use. She is divorc ed. Review of Systems: As noted she has vertigo with nausea, vomiting, left thumb and knee pain. Otherwise, no fevers or ch ills. No rash. No psychiatric issues. No genitourinary issues. Physical Examination: Vital Signs: Blood pressure 123/58, pulse of 101, respiratory rate 16, temperature 97.3, and saturat ion 97%. General: Ms. Vila is resting in bed. She does have significant pain in the left thumb and left kn ee, which is managed by multiple medications, both oral and intravenous. Otherwise, she is in no sig nificant distress. HEENT: She is normocephalic, atraumatic. Sclerae anicteric. Oropharynx is moist. Neck: Supple. Chest: Clear. Heart: Regular. Extremities: Her left knee does show some mild edema and as well as the left thumb. Otherwise, no c yanosis. Neurological: She is alert and oriented to person, place, and situation. Follows commands appropria tely. She has no cranial nerve deficits. She has no focal weakness in upper and lower extremities e xcept for giveaway due to pain in the left distal upper and left knee extension. Left distal upper e xtremity sensation intact except a stocking-glove loss, light touch, temperature. Coordination intac t. Gait, as noted she can ambulate over 300 feet with contact guard assistance. She does have a joselito row base stride. Laboratory Studies: Complete blood count with differential is essentially unremarkable. Coagulation panel shows INR 1.15. Chemistries unremarkable. Glucose ranged from 170-302. Calcium 8.2. Phosph orus 3.3. Urinalysis shows trace blood, 2+ glucose. COVID testing is negative. Assessment: Ms. Vila is a 71-year-old patient with multiple medical problems as outlined above, wh o fell and likely had positional vertigo subsequently and that is improving. She has multiple menisc al tears in the left knee after falling and sprain of the left thumb. She has no focal neurological deficits and brain MRI is negative for stroke. Plan: 1.She may perform the Corine maneuver as needed for vertigo. 2.Meclizine 25 mg every 8 hours as needed. 3.She may follow up in Dr. Rich's office after a month. MARSHA Voice ID: [id number] Report ID: [id number]
--- NOTE | 2022-02-05 09:08 | ECHO ---
HEIGHT: 5 ft 4 in WEIGHT: 215 lb 0 oz DATE OF STUDY: 02/04/[address]: Blu Gonzalez 2-DIMENSIONAL: YES M.MODE: YES DOPPLER: YES COLOR FLOW: YES TDS: NO PORTABLE: YES DEFINITY: NO BUBBLE STUDY: NO DIAGNOSIS: SYNCOPE CARDIAC HISTORY: CATHERIZATION: NO SURGERY: NO PROSTHETIC VALVE: NO PACEMAKER: NO MEASUREMENTS (cm) DIASTOLIC (NORMALS) SYSTOLIC (NORMALS) IVSd 1.1 (0.6-1.2) LA Diam 2.0 (1.9-4.0) LVEF 66% LVIDd 3.5 (3.5-5.7) LVIDs 2.2 (2.0-3.5) %FS 35% LVPWd 1.1 (0.6-1.2) Ao Diam 2.6 (2.0-3.7) 2 DIMENSIONAL ASSESSMENT: RIGHT ATRIUM: NORMAL LEFT ATRIUM: NORMAL RIGHT VENTRICLE: NORMAL LEFT VENTRICLE: NORMAL TRICUSPID VALVE: NORMAL MITRAL VALVE: NORMAL PULMONIC VALVE: NOT WELL SEEN AORTIC VALVE: NORMAL PERICARDIAL EFFUSION: NONE AORTIC ROOT: NORMAL LEFT VENTRICULAR WALL MOTION: NORMAL. DOPPLER/COLOR FLOW: NORMAL. COMMENTS: POOR WINDOWS. NORMAL LEFT VENTRICULAR EJECTION FRACTION 60-65%. NORMAL WALL MOTION. TECHNOLOGIST: PAM PEREZ
== END 2022-02-04 17:58 | disposition home or self-care (01) ==
LOC: ER 10:24 → ERHOLD 15:47 → 4TH 22:09
PROVIDERS: ADMIT Internal Medicine; ATTEND Internal Medicine
DX: R55 Syncope and collapse (principal); R42 Dizziness and giddiness; G89.4 Chronic pain syndrome; K74.60 Unspecified cirrhosis of liver; E11.65 Type 2 diabetes mellitus with hyperglycemia; I10 Essential (primary) hypertension; M25.562 Pain in left knee; S83.242A Other tear of medial meniscus, current injury, left knee, initial encounter; W19.XXXA Unspecified fall, initial encounter; Y93.9 Activity, unspecified; Y92.9 Unspecified place or not applicable; Z88.0 Allergy status to penicillin; Z88.8 Allergy status to other drugs, medicaments and biological substances; D69.6 Thrombocytopenia, unspecified; E66.9 Obesity, unspecified
CPT/HCPCS: 93005; 93306; 85025 ×2; 80048 ×2; 36415; 82140; 83735 ×2; 84100 ×2; 85610 ×2; 82947 ×5; 80076; 84484; 83690; 83880; 70450; 71250; 72125; 71045; 73562; 93880; 93970; 70551; 73721; 97116; 97161; 97530; 96375; 96374; 99285; 87811; J1815 ×7; J3010; J7040; J7030; J2405 ×2; G0378 ×3; 81003; 81015

== ENCOUNTER 2022-03-18 08:11 | Emergency (ER) | payer OTHER ==
--- OUTSIDE RECORDS SUMMARY | 2022-03-18 08:27 | XMS REPORT | Continuity of Care Document ---
:1950 Author Organization [facility] t Address [address] [place] [address] Care Team Providers Name Role Phone Everett Howard Primary Care Physician [phone] Erika OAKES, Mihir Grant Attending Clinician Unavailable CARLITOS URIBE Attending Clinician Unavailable Leonarda Nava DO Attending Clinician Carlitos Uribe MD Attending Clinician Doctor Unassigned, [place] Attending Clinician Unavailable CARLITOS URIBE Admitting Clinician Unavailable Carlitos Uribe MD Admitting Clinician Payers Payer Name Policy Type Policy Number Effective Date Expiration Date S ource Problems Condition Condition Condition Status Onset Resolution Last Treating Co mments Source Name Details Category Date Date Treatment Clinician Date Pneumonia Pneumonia Disease Active Uni vers due to due to 2-23 ity of COVID-19 COVID-19 00:00: [place] virus virus 00 Medical Branch Obesity Obesity Disease Active Univers (BMI (BMI 7-10 ity of 30-39.9) 30-39.9) 00:00: [place] [id number] Medical Branch Allergies, Adverse Reactions, Alerts Allergy [...] 12-17 ity of 00:00: [place] 00 Medical [place] Social History Social Habit Start Date Stop Date Quantity Comments [facility] Exposure to Not sure [facility] SARS-CoV-2 [facility] (event) Branch Alcohol intake 2020-06-11 2020-06-11 Current [facility] 00:00:00 00:00:00 non-drinker of [facility] alcohol Branch (finding) Tobacco use and 2020-06-11 2020-06-11 Never used Universit y of exposure 00:00:00 00:00:00 [facility] Smoking Status Start Date Stop Date Source Never smoker [facility] Medications Ordered Filled Start Stop Current Ordering Indication Dosage Frequency Signature Comments Components Source Medication Medication Date Date Medication? Clinician (SIG) Name Name INJECT 1.8 2021-04 No MG UNDER 1-23 THE SKIN 00:00: NIGHTLY. 00 Dose 2021-04 No Unknown 1-22 00:00: 00 Dose 2021-04 No Unknown 0-03 00:00: 00 AMITRIPTYLI 2021-04 No NE 0-03 HYDROCHLORI 00:00: 50MG TAB 00 PANTOPRAZOL No E SODIUM 9-28 40MG TAB 00:00: 00 PANTOPRAZOL No E SODIUM 9-28 40MG TAB 00:00: 00 INJECT No UNITS BELOW 9-27 THE SKIN 00:00: THREE TIMES 00 A DAY PER SLIDING SCALE (MAX DOSE 25 UNITS). INJECT 2022-0 No UNITS BELOW 9-27 THE SKIN 00:00: THREE TIMES 00 A DAY PER SLIDING SCALE (MAX DOSE 25 UNITS). TAKE ONE 2022-0 No (1) 9-16 TABLET(S) 00:00: BY MOUTH 00 ONCE A DAY. TAKE ONE 2022-0 No (1) 9-16 TABLET(S) 00:00: BY MOUTH 00 ONCE A DAY. USE 1 VIAL 2022-0 No IN 17 NEBULIZER 00:00: EVERY 6 00 HOURS NEEDED. USE 1 VIAL 2022-0 No [id number] IN 17 NEBULIZER 00:00: EVERY 6 00 HOURS NEEDED. USE 1 VIAL 2022-0 No [id number] IN 17 NEBULIZER 00:00: EVERY 6 00 HOURS NEEDED. USE 1 VIAL 2022-0 No IN 17 NEBULIZER 00:00: EVERY 6 00 HOURS NEEDED. [...] 8-16 BY MOUTH 00:00: DAILY. 00 Dose 2022-0 No 100 Unknown 11-14 00:00: 00 Dose 2022-0 No 100 Unknown 11-14 00:00: 00 Dose 2022-0 No 100 Unknown 11-14 00:00: 00 Dose 2022-0 No 100 Unknown 11-14 00:00: 00 estradiol 1 2022-0 No 1mg mg tablet 10-29 00:00: 00 Dose 2-0 No 4 Unknown 10-29 00:00: 00 INHALE TWO 2021-0 No (2) PUFF(S) 10-29 BY MOUTH 00:00: DAILY. 00 TAKE 1 2021-0 No 75 TABLET BY 10-29 MOUTH TWICE 00:00: A DAY 00 INJECT 2022-0 No UNDER THE -13 SKIN THREE 00:00: TIMES A DAY 00 DIRECTED PER SLIDING SCALE. MAX DOSE 25 UNITS. &lt 2021-0 No 40 10-29 00:00: 00 estradiol 1 2-0 No 1mg mg tablet 10-29 00:00: 00 Dose 2-0 No 4 Unknown 10-29 00:00: 00 INHALE TWO 2021-0 No (2) PUFF(S) 10-29 BY MOUTH 00:00: DAILY. 00 TAKE 1 2021-0 No 75 TABLET BY 10-29 MOUTH TWICE 00:00: A DAY 00 INJECT 2-0 No UNDER THE - SKIN THREE 00:00: TIMES A DAY 00 DIRECTED PER SLIDING SCALE. MAX DOSE 25 UNITS. &lt 2021-0 No 40 10-29 00:00: 00 estradiol 1 2021-0 No 1mg mg tablet 10-29 00:00: 00 Dose 2-0 No 4 Unknown 10-29 00:00: 00 INHALE TWO 2021-0 No (2) PUFF(S) 10-29 BY MOUTH 00:00: DAILY. 00 TAKE 1 [...] 4 Unknown 10-29 00:00: 00 INHALE TWO 2021-0 No (2) PUFF(S) 10-29 BY MOUTH 00:00: DAILY. 00 TAKE 1 2-0 No 75 TABLET BY 713 MOUTH TWICE 00:00: A DAY 00 INJECT 2022-0 No UNDER THE -13 SKIN THREE 00:00: TIMES A DAY 00 DIRECTED PER SLIDING SCALE. MAX DOSE 25 UNITS. &lt 2022-0 No 40 7-13 00:00: 00 quetiapine 2022-0 No 2mg 400 mg 6-23 tablet 00:00: 00 estradiol 1 2-0 No 1mg mg tablet 10-09 00:00: 00 &lt 2022-0 No 6- 00:00: 00 &lt 2022-0 No 6- 00:00: 00 quetiapine 2022-0 No 2mg 400 mg - tablet 00:00: 00 estradiol 1 2-0 No 1mg mg tablet 10-09 00:00: 00 &lt 2022-0 No 6- 00:00: 00 &lt 2022-0 No 6- 00:00: 00 quetiapine 2022-0 No 2mg 400 mg - tablet 00:00: 00 estradiol 1 2-0 No 1mg mg tablet 10-09 00:00: 00 &lt 2022-0 No 6- 00:00: 00 &lt 2022-0 No - 00:00: 00 quetiapine 2022-0 No 2mg 400 mg - tablet 00:00: 00 estradiol 1 2-0 No [...] 2022-0 No Unknown 4-27 00:00: 00 levofloxaci 2-0 No 1mg n 500 mg 4-26 tablet [...] 2022-0 No Unknown 4- 00:00: 00 levofloxaci 2-0 No 1mg n 500 mg 4-26 tablet 00:00: 00 promethazin 2022-0 No 1mg e 25 mg 4-26 tablet 00:00: 00 Dose 2022-0 No Unknown 4- 00:00: 00 doxycycline 2-0 No 1mg monohydrate 4-26 100 mg 00:00: [...] 2022-0 No Unknown 4-19 00:00: 00 ondansetron 2022-0 No 1mg 4 mg 4-19 disintegrat 00:00: ing tablet 00 Dose 2-0 No Unknown 4-19 00:00: 00 Dose 2022-0 No Unknown 4-19 00:00: 00 Dose 2022-0 No Unknown 4-19 00:00: 00 Dose 2022-0 No Unknown 4-19 00:00: 00 Dose 2022-0 No Unknown 4-19 00:00: 00 ondansetron 2022-0 No 1mg 4 mg 4-19 disintegrat 00:00: ing tablet 00 Dose 2-0 No Unknown 4-19 00:00: 00 Dose 2022-0 No Unknown 4-19 00:00: 00 Dose 2022-0 No Unknown 4-19 00:00: 00 Dose 2022-0 No Unknown 4-19 00:00: 00 Dose 2022-0 No Unknown 4-19 00:00: 00 ondansetron 2022-0 No 1mg 4 mg 4-19 disintegrat 00:00: ing tablet 00 Dose 2-0 No Unknown 4-19 00:00: 00 Dose 2022-0 No Unknown 4-19 00:00: 00 Dose 2022-0 No Unknown 4-19 00:00: 00 Dose 2022-0 No Unknown 4-19 00:00: 00 Dose 2022-0 No Unknown 4-19 00:00: 00 ondansetron 2022-0 No 1mg 4 mg 4-19 disintegrat 00:00: ing tablet 00 Dose 2022-0 No Unknown 4-19 00:00: [...] 2-0 No Unknown 4-12 00:00: 00 Victoza 2-0 [...] 400 mg 4-12 capsule 00:00: 00 Dose 2-0 No Unknown 4-12 00:00: 00 Dose 2022-0 [...] 2-0 No Unknown 4-12 00:00: 00 Dose 2022-0 No Unknown 4-12 00:00: 00 Dose 2-0 No Unknown 4-12 00:00: 00 Dose 2022-0 [...] Dose 2-0 No Unknown 4-12 00:00: 00 Tresiba 2-0 No (3 mL) FlexTouch 4-12 [...] 4-12 tablet,mellisa 00:00: yed release 00 metoclopram 2021-0 No 1mg chrissy 10 mg 4-12 tablet [...] 400 mg 4-12 capsule 00:00: 00 Dose 2-0 No Unknown 4-12 [...] 4-12 tablet,mellisa 00:00: yed release 00 Dose 2021-0 No Unknown 4-12 00:00: 00 metoclopram 2-0 [...] 2-0 No Unknown 4-12 00:00: 00 Dose 2022-0 [...] 2-0 No Unknown 4-12 00:00: 00 Dose 2022-0 [...] 10 mg 4-12 tablet 00:00: 00 clonidine 2022-0 No 1mg HCl 0.2 mg 4-12 tablet 00:00: 00 quetiapine 2022-0 No 2mg 400 mg 4-12 tablet 00:00: 00 pantoprazol 2022-0 No 1mg e 40 mg 4-12 tablet,mellisa 00:00: yed release 00 metoclopram 2-0 No 1mg chrissy 10 mg 4-12 tablet 00:00: 00 Dose 2022-0 No Unknown 4-12 00:00: 00 Dose 2022-0 No Unknown 4-12 00:00: 00 amitriptyli 2-0 No 1mg ne 50 mg 4-12 tablet 00:00: 00 Dose 2022-0 No Unknown 4-12 00:00: 00 Combivent 2-0 No 2mcg/ac Respimat [...] 2021-1 No Unknown 2-30 00:00: 00 Dose 1-1 No Unknown 2-30 00:00: 00 Dose 2021-1 No Unknown 2-30 00:00: 00 Dose 2021-1 No Unknown 2-30 00:00: 00 Dose 2021-1 No Unknown 2-30 00:00: 00 Dose 1-1 No Unknown 2-30 00:00: 00 Dose 1-1 No Unknown 2-30 00:00: 00 Dose 2021-1 No Unknown 2-30 00:00: 00 Dose 2021-1 No Unknown 2-30 00:00: 00 Dose 1-1 No Unknown 2-30 00:00: 00 Dose 2021-1 No Unknown 2-30 00:00: 00 Dose 2021-1 No Unknown 2-30 00:00: 00 Dose 2021-1 No Unknown 2-30 00:00: 00 Dose 2021-1 No Unknown 2-30 00:00: 00 Dose 2021-1 No Unknown 2-30 00:00: 00 Dose 2021-1 No Unknown 2-30 00:00: 00 Dose 2021-1 No Unknown 2-30 00:00: 00 Dose 2021-1 No Unknown 2-30 00:00: 00 Dose 1-1 No Unknown 2-30 00:00: 00 Dose 2021-1 No Unknown 2-30 00:00: 00 Dose 2021-1 No Unknown 2-30 00:00: 00 Dose 1-1 No Unknown 2-30 00:00: 00 Dose 1-1 No Unknown 2-30 00:00: 00 Dose 2020- No Unknown 2-30 00:00: 00 Dose 2020- No Unknown 2-30 00:00: 00 Dose 2020- No Unknown 2-30 00:00: 00 Dose 2020- No Unknown 2-30 00:00: 00 Dose 2020-04 No Unknown 2-30 00:00: 00 Dose 2020- No Unknown 2-28 00:00: 00 Dose 2020- No Unknown 2-28 00:00: 00 Dose 2020- No Unknown 2-28 00:00: 00 Dose 2020- No Unknown 2-28 00:00: 00 Dose 2020- No Unknown 2-28 00:00: 00 Dose 2020-04 No Unknown 2-28 00:00: 00 Dose 2020-04 No Unknown 2-28 00:00: 00 Dose 2020-04 [...] Dose 2020-1 No Unknown 1-16 00:00: 00 buspirone 2020-1 No 1mg 30 mg 1-16 tablet 00:00: 00 metronidazo 2020-1 No 1mg le 500 mg 1-16 tablet 00:00: 00 Dose 2020-1 No Unknown 1-16 00:00: 00 metronidazo 2020-1 No 1mg le 500 mg 1-16 tablet 00:00: 00 amitriptyli 2020-1 No 1mg ne 50 mg 1-16 tablet 00:00: 00 Dose 2020-1 No Unknown 1-16 00:00: 00 hydroxyzine 2020-1 No 1mg HCl 50 mg 1-16 tablet 00:00: 00 hydroxyzine 2020-1 No 1mg HCl 50 mg 1-16 tablet 00:00: 00 Dose 2020-1 No Unknown 1-16 00:00: 00 duloxetine 2020-1 No 1mg 30 mg 1-16 capsule,del 00:00: ayed 00 release Dose 2020-1 No Unknown 1-16 00:00: 00 Dose 2020-1 No Unknown 1-16 00:00: 00 duloxetine 2020-1 No 1mg 30 mg 1-16 capsule,del 00:00: ayed 00 release Dose 2020-1 No Unknown 1-16 00:00: 00 buspirone 2020-1 No 1mg 30 mg 1-16 tablet 00:00: 00 metronidazo 2020-1 No 1mg le 500 mg 1-16 tablet 00:00: 00 Dose 2020-1 No Unknown 1-16 00:00: 00 metronidazo 2020-1 No 1mg le 500 mg 1-16 tablet 00:00: 00 amitriptyli 2020-1 No 1mg ne 50 mg 1-16 tablet 00:00: 00 Dose 2020-1 No Unknown 1-16 00:00: 00 hydroxyzine 2020-1 No 1mg HCl 50 mg 1-16 tablet 00:00: 00 Dose 2020-1 No Unknown 1-16 00:00: 00 duloxetine 2020-1 No 1mg 30 mg 1-16 capsule,del 00:00: ayed 00 release Dose 2020-1 No Unknown 1-16 00:00: 00 ciprofloxac 2020-1 No 1mg in 500 mg 1-02 tablet 00:00: 00 dicyclomine 2020- No 1mg 20 mg 1-02 tablet 00:00: 00 ondansetron 2020- No 1mg 8 mg 1-02 disintegrat 00:00: ing tablet 00 ciprofloxac 2020-04 No 1mg in 500 mg 1-02 tablet 00:00: 00 dicyclomine 2020- No 1mg 20 mg 1-02 tablet 00:00: 00 ondansetron 2020- No 1mg 8 mg 1-02 disintegrat 00:00: ing tablet 00 ciprofloxac 2020-04 No 1mg in 500 mg 1-02 tablet 00:00: 00 dicyclomine 2020- No 1mg 20 mg 1-02 tablet 00:00: 00 ondansetron 2020- No 1mg 8 mg 1-02 disintegrat 00:00: ing tablet 00 ciprofloxac 2020-04 No 1mg in 500 mg 1-02 tablet 00:00: 00 dicyclomine 2020- No 1mg 20 mg 1-02 tablet 00:00: 00 ondansetron 2020-04 No 1mg 8 mg 1-02 disintegrat 00:00: ing tablet 00 etodolac 2020-04 No 1mg 400 mg 0-18 tablet 00:00: 00 etodolac 2020- No 1mg 400 mg 0-18 tablet 00:00: 00 etodolac 2020-1 No 1mg 400 mg 0-18 tablet 00:00: 00 etodolac 2020- No 1mg 400 mg 0-18 tablet 00:00: 00 lidocaine 5 2020- No 1% % topical 0-05 patch 00:00: 00 Dose 2020-1 No Unknown 0-05 00:00: 00 Dose 2020-1 No Unknown 0-05 00:00: 00 indomethaci 2020-1 No 1mg n 50 mg 0-05 capsule 00:00: 00 Bromfed DM 2020- No 5mg/5 2 mg-30 0-05 mL mg-10 mg/5 00:00: mL oral 00 syrup lidocaine 5 2020- No 1% % topical 0-05 patch 00:00: 00 buspirone 2020- No 1mg 15 mg 0-05 tablet 00:00: [...] aspart 100 unit/mL (3 mL) subcutaneou s Combivent No 2mcg/ac Respimat 20 9-28 tuation mcg-100 00:00: mcg/actuati 00 on solution for inhalation Combivent 0 No 2mcg/ac Respimat 20 9-28 tuation mcg-100 00:00: mcg/actuati 00 on solution for inhalation Victoza No 6(18 2-Abhay 0.6 9-28 mg/3 mg/0.1 mL 00:00: mL) (18 mg/3 00 mL) subcutaneou s pen injector clonidine 2021-0 No 1mg HCl 0.2 mg 9-28 tablet 00:00: 00 pantoprazol 2021-0 No 1mg e 40 mg 9-28 tablet,mellisa [...] pantoprazol 1-0 No 1mg e 40 mg 9- tablet,mellisa 00:00: yed release 00 metoclopram 1-0 No 1mg chrissy 10 mg 9-28 tablet 00:00: 00 metoclopram 2021-0 No 1mg chrissy 10 mg 9-28 tablet 00:00: 00 Xanax 2 mg 1-0 No 1mg tablet 01-14 00:00: 00 hydrocodone 1-0 No 1mg 10 - mg-acetamin 00:00: ophen 300 00 mg tablet Combivent 2020-0 No 2mcg/ac Respimat 20 - tuation mcg-100 00:00: mcg/actuati 00 on solution for inhalation Combivent 2020-0 No 2mcg/ac Respimat 20 -28 [...] 00 mL) subcutaneou s pen injector clonidine 1-0 No 1mg HCl 0.2 mg 9-28 tablet 00:00: 00 pantoprazol 2021-0 No 1mg e 40 mg 9-28 tablet,mellisa [...] 9-28 tablet,mellisa 00:00: yed release 00 metoclopram 2021-0 No 1mg chrissy 10 mg 9-28 tablet 00:00: 00 metoclopram 2021-0 No 1mg chrissy 10 mg 9-28 tablet 00:00: 00 Xanax 2 mg 1-0 No 1mg tablet -28 00:00: 00 hydrocodone 1-0 No 1mg 10 [...] 00 mL) subcutaneou s pen injector Victoza 1-0 No (18 2-Abhay 0.6 9-28 mg/3 mg/0.1 mL 00:00: mL) (18 mg/3 00 mL) subcutaneou s pen injector Novolog 1-0 No 1(3 mL) Flexpen 9-28 U-100 00:00: [...] 10 mg 9-28 tablet 00:00: 00 metoclopram 2020-0 No 1mg chrissy 10 mg - tablet 00:00: 00 Xanax 2 mg 2020-0 No 1mg tablet 01-14 00:00: 00 hydrocodone 2020-0 No 1mg 10 - mg-acetamin 00:00: ophen 300 00 mg tablet Combivent 2020-0 No 2mcg/ac Respimat 20 9-28 tuation mcg-100 00:00: mcg/actuati 00 on solution for inhalation Combivent 2020-0 No 2mcg/ac Respimat 20 9- tuation mcg-100 00:00: mcg/actuati 00 on solution [...] subcutaneou s pen Victoza 2020-0 No (18 2-Abhay 0.6 9-28 [...] 00 mL) subcutaneou s pen injector clonidine 1-0 No 1mg HCl 0.2 mg 9-28 tablet 00:00: 00 pantoprazol 2021-0 No 1mg e 40 mg 9-28 tablet,mellisa [...] Xanax 2 mg 1-0 No 1mg tablet -28 00:00: 00 hydrocodone 1-0 No 1mg 10 9-28 mg-acetamin 00:00: ophen 300 00 mg tablet Tresiba 2020-0 No (3 mL) FlexTouch 7-03 U-200 00:00: insulin 200 00 unit/mL (3 mL) subcutaneou s pen Tresiba 2020-0 No (3 mL) FlexTouch 7-03 U-200 00:00: insulin 200 00 unit/mL (3 mL) subcutaneou s pen Tresiba 1-0 No (3 mL) FlexTouch 7-03 U-200 00:00: insulin 200 00 unit/mL (3 mL) subcutaneou s pen Tresiba 1-0 No (3 mL) FlexTouch 7-03 U-200 00:00: insulin 200 00 unit/mL (3 mL) subcutaneou s pen Victoza 2021-0 No (18 3-Abhay 0.6 4-05 mg/3 mg/0.1 mL 00:00: mL) (18 mg/3 00 mL) subcutaneou s pen injector Victoza No (18 3-Abhay 0.6 4-05 mg/3 mg/0.1 mL 00:00: mL) (18 mg/3 00 mL) subcutaneou s pen injector Victoza No (18 3-Abhay 0.6 4-05 mg/3 mg/0.1 mL 00:00: mL) (18 mg/3 00 mL) subcutaneou s pen injector Victoza No (18 3-Abhay 0.6 4-05 mg/3 mg/0.1 mL 00:00: mL) (18 mg/3 00 mL) subcutaneou s pen injector zinc Yes [id number] 220mg Take 1 Uni vers sulfate 220 2-28 [id number] capsule by ity of (50) mg 00:00: mouth [place] capsule 00 daily. Medical Branch ascorbic Yes [id number] 500mg Take 1 Univers acid, 2-28 [id number] tablet by ity of vitamin C, 00:00: mouth [place] 500 mg 00 daily. Medical tablet Branch zinc Yes [id number] 220mg Take 1 Uni vers sulfate 220 2-28 [id number] capsule by ity of (50) mg 00:00: mouth [place] capsule 00 daily. Medical Branch ascorbic Yes [id number] 500mg Take 1 Univers acid, 2-28 [id number] tablet by ity of vitamin C, 00:00: [...] by mouth ity of (PROTONIX) 21:18: daily. [place] 20 mg EC 29 Medical tablet Branch insulin 0 Yes inject Univers aspart 2-27 under the ity of prot/insuln 21:18: skin. [place] asp 29 Medical (NOVOLOG Branch MIX 70-30 SC) cloNIDine 2020-0 Yes .2mg Take 0.2 Univ ers 0.2 mg 2-27 mg by ity of tablet 21:18: mouth 3 [place] 29 (three) Medical times Branch daily. metoprolol 0 Yes 50mg Take 50 mg U nivers succinate 2-27 by mouth 2 ity of XL 50 mg 24 21:18: (two) [place] hr tablet 29 times Medical daily. Branch QUEtiapine 0 Yes 800mg Take 800 Un nighat (SEROQUEL) 2-27 mg by ity of 400 mg 21:18: mouth at [place] tablet 29 bedtime. Medical Branch ALPRAZolam 0 Yes 2mg Take 2 mg Un nighat (XANAX) 2 2-27 by mouth 3 ity of mg tablet 21:18: (three) [place] 29 times Medical daily as Branch needed for Sleep. INSULIN 0 Yes 80U inject 80 Unive rs DEGLUDEC 2-27 Units ity of (TRESIBA 21:18: under the [facility] FLEXTOUCH 29 skin every Medi antione U-100 SC) morning. Branch pantoprazol Yes 20mg Take 20 mg Univers e 2-27 by mouth ity of (PROTONIX) 21:18: daily. [place] 20 mg EC 29 Medical tablet Branch insulin 0 Yes inject Univers aspart 2-27 under the ity of prot/insuln 21:18: skin. [place] asp 29 Medical (NOVOLOG Branch MIX 70-30 SC) cloNIDine 2020-0 Yes .2mg Take 0.2 Univ ers 0.2 mg 2-27 mg by ity of tablet 21:18: mouth 3 [place] 29 (three) Medical times Branch daily. metoprolol 2020-0 Yes 50mg Take 50 mg U nivers succinate 2-27 by mouth 2 ity of XL 50 mg 24 21:18: (two) [place] hr tablet 29 times Medical daily. Branch QUEtiapine 2020-0 Yes 800mg Take 800 Un nighat (SEROQUEL) 2-27 mg by ity of 400 mg 21:18: mouth at [place] tablet 29 bedtime. Medical Branch ergocalcife Yes [id number] 44143T Take 1 Univers rol, 2-27 [id number] capsule by ity of vitamin d2, 00:00: mouth [place] 1,250 mcg 00 weekly. Medical (50,000 Branch unit) capsule benzonatate Yes [id number] 200mg Take 2 Univers (TESSALON 2-27 [id number] capsules ity of PERLES) 100 00:00: by mouth 3 [place] mg capsule 00 (three) Medica l times Branch daily as needed for Cough. aspirin 81 Yes [id number] 81mg Take 1 Univers mg chewable 2-27 [id number] tablet by ity of tablet 00:00: mouth [place] 00 daily. Medical Branch ergocalcife Yes [id number] 18578U Take 1 Univers rol, 2-27 [id number] capsule by ity of vitamin d2, 00:00: mouth [place] 1,250 mcg 00 weekly. Medical (50,000 Branch unit) capsule benzonatate Yes [id number] 200mg Take 2 Univers (TESSALON 2-27 [id number] capsules ity of PERLES) 100 00:00: by mouth 3 [place] mg capsule 00 (three) Medica l times Branch daily as needed for Cough. aspirin 81 Yes [id number] 81mg Take 1 Univers mg chewable 2-27 [id number] tablet by ity of tablet 00:00: mouth [place] 00 daily. Medical Branch dexAMETHaso 2020- No [id number] 4mg Take 1 Univers ne 4 mg 2-13 07- [id number] tablet by ity of tablet 00:00: 05:59 mouth [place] 00 :00 daily with Medical breakfast Branch for 5 days. dexAMETHaso 2020- No [id number] 4mg Take 1 Univers ne 4 mg 2-13 07- [id number] tablet by ity of tablet 00:00: 05:59 mouth [place] 00 :00 daily with Medical breakfast Branch for 5 days. enoxaparin Yes 40mg 40 mg, Unive rs (LOVENOX) 2-26 Subcutaneo ity of injection 15:00: [place], DAILY, [place] 40 mg 00 First dose Medical on Wed Branch 06/14/20 at 0900, Until Discontinu ed, Routine iohexol No 100mL 100 mL, Unive rs (OMNIPAQUE [...] Wed Branch 06/12/20 at 1315, Routine tc 7mCi 7 Univers 99m-albumin 06-12 millicurie i ty of (DRAXIMAGE 18:30: 18:20 , [place] MAA) 00 :00 Intravenou Medical injection 7 s, ONCE, 1 Br anch millicurie dose, Wed06/12/20 at 1230, Routine furosemide Yes 20mg 20 mg, IV Un nighat (LASIX) 06-12 Push, ity of injection 18:00: DAILY, [place] 20 mg 00 First dose Medical on Wed Branch 06/12/20 at 1200, Until Discontinu ed, Routine ALPRAZolam Yes 2mg 2 mg, Univer s (XANAX) 06-12 Oral, ity of tablet 2 mg 17:45: TIDPRN, [place] as 00 Starting Medical Wed Branch 06/12/20 at 1145, Until Discontinu ed, Routine, anxiety HYDROcodone Yes 1{tbl} 1 tablet, Univers -acetaminop 2-24 Oral, ity of hen (NORCO) 17:42: Q6HPRN, [place] as 10-325 mg 07 Starting Medica l tablet 1 Wed tablet 06/12/20 at 1142, Until Discontinu ed, Routine, Pain (scale 4-6), Pain (scale 7-10) ascorbic 2020-0 Yes 1000mg 1,000 mg, Un nighat acid [...] 06/12/20 at 0900, Until Discontinu ed QUEtiapine 0 Yes 800mg 800 mg, Uni vers (SEROQUEL) 2-24 Oral, QHS, ity of tablet 800 03:00: First dose [place] mg 00 on [facility] 06/11/20 at Branch 2100, Until Discontinu ed, Routine metoprolol Yes 50mg 50 mg, Unive rs succinate 2-24 Oral, BID, ity of XL (TOPROL 02:00: First dose [place] XL) tablet 00 on [facility] 50 mg 06/11/20 at [place] 1999, Until Discontinu ed, Routine cloNIDine Yes .2mg 0.2 mg, Unive rs (CATAPRES) 24 Oral, TID, ity of tablet 0.2 02:00: First dose [place] mg 00 on [facility] 06/11/20 at [place] 1999, Until Discontinu ed, Routine albuterol-i Yes 2{puff} 2 Puff, Univers pratropium 06-12 Inhalation ity of (COMBIVENT 02:00: , QID, [place] RESPIMAT) 00 First dose Medi antione 20-[address] [facility] mcg/actuati 06/11/20 at on inhaler 1999, 2 Puff Until Discontinu ed
Is this order for a patient with suspected or confirmed COVID-19 infection? Yes iron 2020- No 1000mg 1,000 mg, Unive rs dextran 06-12 IV ity of (INFED) 01:45: 07:54 Infusion, [place] 1,000 mg in 00 :00 ONCE, 1 Medic al NaCl 0.9% dose, [facility] Bran h (NS) 500 mL 06/11/20 at IV infusion 194, 500 mL magnesium 2020- No 1g 1 g, IV Univ ers sulfate in 06-12 Piggyback, it y of D5W 1 01:45: 04:48 ONCE, 1 [place] gram/100 mL 00 :00 dose, Tue Med ical RTU IV 06/11/20 at [place] Piggyback 1 1945, 100 g mL HYDROcodone 2020- No 1{tbl} 1 tablet, Univers -acetaminop 06-12 Oral, ity of hen (NORCO 00:30: 00:33 ONCE, 1 [place] as 5) 5-325 mg 00 :00 dose, Tue Med ical tablet 1 06/11/20 at [facility] tablet 1830, Routine proMETHazin Yes 12.5mg 12.5 mg, Univers e 06-11 IV ity of (PHENERGAN) 23:42: Piggyback, [place] 12.5 mg in 03 Q6HPRN, Medica l NaCl 0.9% Starting Branch (NS) 50 mL Tue IV 06/11/20 at piggyback 1742, Until Discontinu ed, Routine, Nausea and Vomiting (N/V) LORazepam 2 No 2mg Take 2 mg Univers mg tablet 06-11 by mouth 3 ity of 23:21: 00:00 (three) [place] 17 :00 times Medical daily as Branch needed. canaglifloz No 100mg Take 100 Univers in 06-11 mg by ity of (INVOKANA) 23:21: 00:00 mouth [place] 100 mg 12 :00 daily. Medical tablet Branch ALPRAZolam No 2mg 2 mg, Unive rs (XANAX) 06-11 Oral, ity of tablet 2 mg 23:20: 17:43 BIDPRN, [place] 52 :22 Starting Medical e Branch 06/11/20 at 1720, Until Wed06/12/20 at 1143, Routine, anxiety HYDROcodone 2020- No 1{tbl} 1 tablet, Univers -acetaminop 06-11 Oral, ity of hen (NORCO) 23:17: 17:43 Q6HPRN, [place] 10-325 mg 21 :22 Starting Medica l tablet 1 [facility] Branch tablet 06/11/20 at 1717, Until Wed06/12/20 at 1143, Routine, Pain (scale 7-10) Sliding Yes [facility] ers Scale 2-23 us, TID ity of Insulin - 23:00: MEALS+HS, [place] as Lispro 00 First dose Medical (HumaLOG) + on e Branch Fsbg 06/11/20 at Testing 1700, Until Discontinu ed, Routine enoxaparin 2020- No 40mg 40 mg, Univ ers (LOVENOX) 06-11 Subcutaneo ity of injection 23:00: 18:04 us, DAILY, [place] 40 mg 00 :51 First dose Medical on e Branch 06/11/20 at 1700, Until Discontinu ed, Routine codeine-gua Yes 10mL 10 mL, Univ ers ifenesin - Oral, ity of (ROBITUSSIN 22:37: Q6HPRN, [place] as AC) 10-100 32 Starting Medic al mg/5 mL Tue Branch solution 10 06/11/20 at mL 1637, Until Discontinu ed, Routine, Cough acetaminoph Yes 650mg 650 mg, Un [place] 06-11 Oral, ity of (TYLENOL) 22:32: Q6HPRN, [place] tablet 650 47 Starting Medic al mg Tue Branch 06/11/20 at 1632, Until Discontinu ed, [...] Tue Med ical tablet 1 06/11/20 at [facility] h tablet 1330, HELENE NaCl 0.9% 2020- [...] Tue Medi antione mg/5 mL 06/11/20 at [place] solution 10 1145, HELENE mL acetaminoph 2020- No 1000mg 1,000 mg, Univers en 06-11 Oral, ity of (TYLENOL) 17:45: 16:50 ONCE, 1 [place] :[place] dose, Tue Medical 1,000 mg 06/11/20 at [facility] h 1145, HELENE albuterol 2020- No 2.5mg 2.5 mg, Uni vers (PROVENTIL) 06-11 Inhalation i ty of 2.5 mg /3 16:45: 16:48 , [place], 1 [place] (0.083 00 :00 dose, Tue Medic al %) 06/11/20 at [place] nebulizer 1045, STAT solution 2.5 mg NaCl 0.9% 2020- No 1000mL at 999 Uni vers (NS) bolus 06-11 mL/hr, ity of infusion 16:45: 19:31 1,000 mL, [place] as 1,000 mL 00 :00 IV Medical Infusion, [place] ONCE, 1 dose, 06/11/20 at 1045, HELENE traMADOL Yes 50mg Take 1 Univers (ULTRAM) 50 7-10 tablet by ity of mg tablet 00:00: mouth [place] 00 every 6 Medical (six) Branch hours as needed for Pain (scale 7-10). levoFLOXaci 2016- Yes 500mg Take 1 Uni vers n 7-10 tablet by ity of (LEVAQUIN) 00:00: mouth [place] 500 mg 00 every 24 Medical tablet (twenty-fo Branch ur) hours. traMADOL 2020- No 50mg Take 1 Univer s (ULTRAM) 50 7-10 - tablet by it y of mg tablet 00:00: 00:00 mouth [place] 00 :00 every 6 Medical (six) Branch hours as needed for Pain (scale 7-10). levoFLOXaci 2020- No 500mg Take 1 Un nighat n 7-10 -23 tablet by ity of (LEVAQUIN) 00:00: 00:00 mouth [place] 500 mg 00 :00 every 24 Medical tablet (twenty-fo Branch ur) hours. ALPRAZolam 2015-04 Yes 2mg Take 2 mg Un nighat (XANAX) 2 -27 by mouth 3 ity of mg tablet [...] Yes 4mg Take 1 Univ ers (ZOFRAN, -27 tablet by ity of HYDROCHLORI 00:00: mouth [...] needed for Nausea and Vomiting (N/V). ondansetron 0 Yes 4mg Take 1 Tab Univers (ZOFRAN, 4-05 by mouth ity of HYDROCHLORI 00:00: every 8 [place],) 4 mg 00 (eight) Medical tablet hours as Branch needed for Nausea and Vomiting (N/V). acetaminoph 2020- No 1{tbl} Take 1 Tab Univers en-codeine 07-22 by mouth ity of (TYLENOL-CO 00:00: 00:00 every 6 [place] DEINE #3) 00 :00 (six) Medical 300-30 mg hours as Branch tablet needed for Pain (scale 4-6). esomeprazol 2010-04 Yes TAKE 1 Univ ers e (NEXIUM) 0-31 CAPSULE ity of 40 mg 00:00: EVERY DAY [place] capsule 00 WITH Medical BREAKFAST Branch esomeprazol 2010-04- No TAKE 1 Uni vers e (NEXIUM) 0-31 - CAPSULE ity o f 40 mg 00:00: 00:00 EVERY DAY [place] capsule 00 :00 WITH Medical BREAKFAST Branch gabapentin Yes 400mg Take 1 Cap Univers (NEURONTIN) 2 by mouth 3 it y of 400 mg 00:00: (three) [place] capsule 00 times Medical daily. Branch gabapentin 2020- No 400mg Take 1 Cap Univers (NEURONTIN) 206-11 by mouth 3 i ty of 400 [...] Branch mcg/Actuati on inhaler traMADOL 2009-04 Yes [id number] 50mg Take 1 Tab Univers (ULTRAM) 50 0-06 by mouth ity of mg tablet 00:00: every 6 [place] 00 (six) Medical hours as Branch needed for Pain. hydrocodone 2009-04 Yes [id number] 1{tbl} Take 1 Tab Univers -acetaminop 0-06 by mouth ity of hen (NORCO) 00:00: every 6 [place] as 10-325 mg 00 (six) Medical per tablet hours as Branc h needed for Pain. albuterol-i 2009-04 Yes [id number] 2{puff} Inhale 2 Univers pratropium 0-06 Puffs 4 ity of (COMBIVENT 00:00: (four) [place] INHALER) 00 times Medical 18-103 daily. Branch mcg/Actuati on inhaler montelukast 2009-04 Yes [id number] 10mg Take 1 Tab Univers (SINGULAIR) 0-06 by mouth ity of 10 mg 00:00: daily. [place] tablet 00 Medical Branch fluticasone 2009-04 Yes 2{spray Use 2 [place] (FLONASE) 0-06 } Sprays in ity o f 50 00:00: each [place] mcg/Actuati 00 nostril Medic al on nasal daily. Branch spray traMADOL 2009-04 Yes [id number] 50mg Take 1 Tab Univers (ULTRAM) 50 0-06 by mouth ity of mg tablet 00:00: every 6 [place] 00 (six) Medical hours as Branch needed for Pain. hydrocodone 2009-04 Yes [id number] 1{tbl} Take 1 Tab Univers -acetaminop 0-06 by mouth ity of hen (NORCO) 00:00: every 6 [place] 10-325 mg 00 (six) Medical per tablet hours as Branc h needed for Pain. esomeprazol 2009-04 Yes 40mg Take 1 Cap Univers e (NEXIUM) 0-06 by mouth ity o f 40 mg 00:00: daily with [place] capsule 00 breakfast. Medica l Branch carvedilol 2009-04 Yes [id number] 25mg Take 2 [place] (COREG) 0-06 Tabs by ity of 12.5 mg 00:00: mouth 2 [place] tablet 00 (two) Medical times Branch daily with meals. valsartan 2009-04 Yes [id number] 320mg Take 1 Tab Univers (DIOVAN) 0-06 by mouth ity of 320 mg 00:00: daily. [place] tablet 00 Medical Branch albuterol-i 2009-04 Yes [id number] 2{puff} Inhale 2 Univers pratropium 0-06 Puffs 4 ity of (COMBIVENT 00:00: (four) [place] INHALER) 00 times Medical 18-103 daily. Branch mcg/Actuati on inhaler montelukast 2009-04 Yes [id number] 10mg Take 1 Tab Univers (SINGULAIR) 0-06 by mouth ity of 10 mg 00:00: daily. [place] tablet 00 Medical Branch metFORMIN 2009-04 Yes [id number] 500mg Take 1 Tab Univers (GLUCOPHAGE 0-06 [...] nasal daily. Branch spray traMADOL 2009-04 Yes [id number] 50mg Take 1 Tab Univers (ULTRAM) 50 0-06 by mouth ity of mg tablet 00:00: every 6 [place] 00 (six) Medical hours as Branch needed for Pain. hydrocodone 2009-04 Yes [id number] 1{tbl} Take 1 Tab Univers -acetaminop 0-06 by mouth ity of hen (NORCO) 00:00: every 6 [place] 10-325 mg 00 (six) Medical per tablet hours as Branc h needed for Pain. albuterol-i 2009-04 Yes [id number] 2{puff} Inhale 2 Univers pratropium 0-06 Puffs 4 ity of (COMBIVENT 00:00: (four) [place] INHALER) 00 times Medical 18-103 daily. Branch mcg/Actuati on inhaler montelukast 2009-04 Yes [id number] 10mg Take 1 Tab Univers (SINGULAIR) 0-06 by mouth ity of 10 mg 00:00: daily. [place] tablet 00 Medical Branch fluticasone 2009-04 Yes 2{spray Use 2 Un [place] (FLONASE) 0-06 } Sprays in ity o f 50 00:00: each [place] mcg/Actuati 00 nostril Medic al on nasal daily. Branch spray esomeprazol 2009-04- No 40mg Take 1 Cap Univers e (NEXIUM) 0-06 -23 by mouth ity of 40 mg 00:00: 00:00 daily with [place] capsule 00 :00 breakfast. Medica l Branch carvedilol 2009-04- No [id number] 25mg Take 2 U nivers (COREG) 06-11 Tabs by ity of 12.5 mg 00:00: 00:00 mouth 2 [place] tablet 00 :00 (two) Medical times Branch daily with meals. valsartan 2009-04- No [id number] 320mg Take 1 Tab Univers (DIOVAN) 06-11 by mouth ity of 320 mg 00:00: 00:00 daily. [place] tablet 00 :00 Medical Branch metFORMIN 2009-04- No [id number] 500mg Take 1 Tab Univers (GLUCOPHAGE 06-11 by mouth ity of ) 500 mg 00:00: 00:00 daily. [place] tablet 00 :[address] [facility] loratadine 2009-04- No 10mg Take 1 Tab Univers (CLARITIN) 06-11 by mouth ity of 10 mg 00:00: 00:00 daily. [place] tablet 00 :00 Medical [place] chlorhexidi Yes Swish and U nivers ne [...] Status Commen ts Source Name Name Evita COVID-19 2021-04-09 Completed Vaccine 00:00:00 Moderna COVID-19 2021-04-09 Completed Vaccine 00:00:00 Moderna COVID-19 2021-04-09 Completed Vaccine 00:00:00 Moderna COVID-19 2021-04-09 Completed Vaccine 00:00:00 Vital Signs Vital Name Observation Time Observation Value Comments Source Systolic blood 2020-06-15 19:00:00 133 mm[Hg] Univer sity of pressure [facility] Diastolic blood 2020-06-15 19:00:00 81 mm[Hg] Unive rsity of pressure [place] [facility] Heart rate 2020-06-15 19:00:00 71 /min [facility] [place] [facility] Respiratory rate 2020-06-15 19:00:00 21 /min [facility] [place] [facility] Body temperature 2020-06-15 17:24:00 35.56 Justyna Univ [facility] [place] [facility] Oxygen saturation in 2020-06-15 17:14:00 100 /min University of Arterial blood by [facility] Pulse oximetry Branch Body weight 2020-06-11 21:20:00 100.971 kg [facility] [place] [facility] BMI 2020-06-11 21:20:00 38.21 kg/m2 [facility] [place] [facility] Systolic blood 2020-06-15 19:00:00 133 mm[Hg] Univer sity of pressure [place] [facility] Diastolic blood 2020-06-15 19:00:00 81 mm[Hg] Unive rsity of pressure [place] [facility] Heart rate 2020-06-15 19:00:00 71 /min [facility] [place] [facility] Respiratory rate 2020-06-15 19:00:00 21 /min [facility] [place] [facility] Body temperature 2020-06-15 17:24:00 35.56 Justyna [facility] [place] [facility] Oxygen saturation in 2020-06-15 17:14:00 100 /min University of Arterial blood by [facility] Pulse oximetry Branch Body weight 2020-06-11 21:20:00 100.971 kg [facility] [place] [facility] BMI 2020-06-11 21:20:00 38.21 kg/m2 [facility] [place] [facility] BP Systolic 2022-03-11 09:03:00 134 mm[Hg] BP Diastolic 2022-03-11 09:03:00 82 mm[Hg] Weight Measured 2022-03-11 09:03:00 221.80 pounds Height Measured 2022-03-11 09:03:00 62.00 inches Body Temperature 2022-03-11 09:03:00 97.80 degrees Heart Rate 2022-03-11 09:03:00 80.00 /min Respiratory Rate 2022-03-11 09:03:00 18.00 /min BP Systolic 2022-01-13 16:30:00 BP Diastolic 2022-01-13 [...] POCT GLUCOSE (AUTOMATED) 2020-06-15 17:39:00 Leonarda Nava [facility] BASIC METABOLIC PANEL 2020-06-15 11:05:00 Jena Davidson [facility] (NA, K, CL, CO2, GLUCOSE, Medica l Branch BUN, CREATININE, CA) CBC WITH DIFF 2020-06-15 11:05:00 Jena Davidson [facility] POCT GLUCOSE (AUTOMATED) 2020-06-15 01:31:00 Leonarda Nava [facility] POCT GLUCOSE (AUTOMATED) 2020-06-14 22:14:00 Leonarda Nava [facility] POCT GLUCOSE (AUTOMATED) 2020-06-14 17:32:00 Leonarda Nava [facility] POCT GLUCOSE (AUTOMATED) 2020-06-14 13:51:00 Leonarda Nava [facility] BASIC METABOLIC PANEL 2020-06-14 10:45:00 Jena Davidson [facility] (NA, K, CL, CO2, GLUCOSE, Medica l Branch BUN, CREATININE, CA) CBC WITH DIFF 2020-06-14 10:45:00 Jena Davidson [facility] POCT GLUCOSE (AUTOMATED) 2020-06-14 05:57:00 Leonarda Nava [facility] POCT GLUCOSE (AUTOMATED) 2020-06-14 02:04:00 Leonarda Nava [facility] POCT GLUCOSE (AUTOMATED) 2020-06-13 22:36:00 Leonarda Nava [facility] POCT GLUCOSE (AUTOMATED) 2020-06-13 17:41:00 Leonarda Nava [facility] POCT GLUCOSE (AUTOMATED) 2020-06-13 14:21:00 Leonarda Nava [facility] CT ANGIOGRAM CHEST 2020-06-13 14:17:35 Carlitos Uribe [facility] BASIC METABOLIC PANEL 2020-06-13 09:46:00 Jena Davidson [facility] (NA, K, CL, CO2, GLUCOSE, Medica l Branch BUN, CREATININE, CA) CBC WITH DIFF 2020-06-13 09:46:00 Jena Davidson [facility] PREPARE PLASMA 2020-06-13 04:34:33 [place] [facility] POCT GLUCOSE (AUTOMATED) 2020-06-12 22:57:00 Leonarda Nava [facility] NM LUNG PERFUSION ONLY 2020-06-12 18:45:00 Carlitos Uribe [facility] POCT GLUCOSE (AUTOMATED) 2020-06-12 18:06:00 Leonarda Nava [facility] POCT GLUCOSE (AUTOMATED) 2020-06-12 14:07:00 Leonarda Nava [facility] ABORH CONFIRMATION 2020-06-12 09:30:00 Leonarda Nava [facility] D-D[facility]ER 2020-06-12 09:25:00 Stuart Jenadiane Michel [facility] HB ABO GROUPING 2020-06-12 08:57:00 Reinier Donovan [place] o f [facility] BASIC METABOLIC PANEL 2020-06-12 08:55:00 Jena Davidson [facility] (NA, K, CL, CO2, GLUCOSE, Medica l Branch BUN, CREATININE, CA) CBC WITH DIFF 2020-06-12 08:55:00 Stuart Jena [facility] POCT GLUCOSE (AUTOMATED) 2020-06-12 02:03:00 Leonarda Nava [facility] VITAMIN B12, LEVEL 2020-06-11 23:06:00 Stuart [facility] Marilu [facility] VITAMIN D, 25-OH 2020-06-11 23:06:00 Stuart Jenadiane Michel [facility] PROCALCITONIN 2020-06-11 23:06:00 Stuart Jena Marilu [facility] IRON PANEL 2020-06-11 23:05:00 Stuart Jena Marilu [facility] POCT GLUCOSE (AUTOMATED) 2020-06-11 22:52:00 Leonarda Nava [facility] XR CHEST 1 VW 2020-06-11 17:23:51 Leonarda Nava [facility] MAGNESIUM 2020-06-11 16:46:00 Stuart Jena Marilu [facility] TROPONIN I 2020-06-11 16:46:00 Leonarda Nava [facility] THYROID STIMULATING 2020-06-11 16:46:00 Jena Davidson [facility] HORMONE [facility] HEPATIC FUNCTION PANEL 2020-06-11 16:46:00 Leonarda Nava [facility] ([id number]) (ALB,T.PRO,BILI Medical Branch T,BU/BC,ALT,AST,ALK PHOS) BASIC METABOLIC PANEL 2020-06-11 16:46:[address] [facility] (NA, K, CL, CO2, GLUCOSE, Medica l Branch BUN, CREATININE, CA) CBC WITH DIFF 2020-06-11 16:46:00 Leonarda Nava [facility] GLYCOSYLATED HEMOGLOBIN 2020-06-11 16:46:00 Jena Davidson [facility] (A1C) [facility] N-TERMINAL PRO-BNP 2020-06-11 16:46:00 Jena Davidson [facility] LACTIC ACID WHOLE BLOOD 2020-06-11 16:46:00 Leonarda Nava [facility] COVID-19 (ID NOW RAPID 2020-06-11 16:46:00 Leonarda Nava [facility] TESTING) [facility] LAB ONLY COVID 2020-06-11 16:46:00 Leonarda Nava [facility] INTERPRETATION [facility] HB ECG ROUTINE & RHYTHM 2020-06-11 16:36:07 Leonarda Nava [facility] CONSENT/REFUSAL FOR 2020-06-11 16:09:15 Doctor Unassigned, [facility] DIAGNOSIS AND TREATMENT [place] [facility] NOTICE OF PRIVACY 2020-06-11 16:08:58 Doctor Elizabeth, [facility] PRACTICES [place] [facility] Plan of Care Planned Activity Planned Date Details Comments Source Goal Plan of Care Note [code = 45458-5] Goal Plan of Care Note [code = 58359-0] Goal Plan of Care Note [code = 98247-8] Goal Plan of Care Note [code = 89315-4] Goal Plan of Care Note [code = 71038-3] Goal Plan of Care Note [code = 16324-1] Goal Plan of Care Note [code = 52085-5] Goal Plan of Care Note [code = 33848-4] Goal Plan of Care Note [code = 41734-1] Goal Plan of Care Note [code = 31424-0] Goal Plan of Care Note [code = 10407-5] Goal Plan of Care Note [code = 57915-7] Goal Plan of Care Note [code = 61473-9] Goal Plan of Care Note [code = 35824-5] Goal Plan of Care Note [code = 36990-0] Goal Plan of Care Note [code = 02386-3] Goal Plan of Care Note [code = 66120-0] Goal Plan of Care Note [code = 09040-7] Goal Plan of Care Note [code = 12501-9] Goal Plan of Care Note [code = 00778-4] Goal Plan of Care Note [code = 76519-9] Goal Plan of Care Note [code = 69830-5] Goal Plan of Care Note [code = 88343-1] Goal Plan of Care Note [code = 49621-2] Goal Plan of Care Note [code = 86032-2] Goal Plan of Care Note [code = 54151-1] Goal Plan of Care Note [code = 78559-4] Goal Plan of Care Note [code = 12716-7] Goal Plan of Care Note [code = 05572-0] Goal Plan of Care Note [code = 98704-0] Goal Plan of Care Note [code = 45383-0] Goal Plan of Care Note [code = 40011-8] Goal Plan of Care Note [code = 65425-3] Goal Plan of Care Note [code = 63565-0] Goal Plan of Care Note [code = 96988-0] Goal Plan of Care Note [code = 16582-6] Goal Plan of Care Note [code = 13473-2] Goal Plan of Care Note [code = 54900-0] Goal Plan of Care Note [code = 69584-7] Goal Plan of Care Note [code = 56100-9] Goal Plan of Care Note [code = 37506-9] Goal Plan of Care Note [code = 60322-5] Goal Plan of Care Note [code = 91845-9] Goal Plan of Care Note [code = 45020-7] Goal Plan of Care Note [code = 83488-0] Goal Plan of Care Note [code = 11859-4] Goal Plan of Care Note [code = 82704-1] Goal Plan of Care Note [code = 42023-2] Goal Plan of Care Note [code = 83592-2] Goal Plan of Care Note [code = 02239-3] Goal Plan of Care Note [code = 29552-4] Goal Plan of Care Note [code = 74046-3] Goal Plan of Care Note [code = 07718-2] Goal Plan of Care Note [code = 87433-9] Goal Plan of Care Note [code = 71210-5] Encounters Start End Encounter Admission Attending Care Care Encounter Source Date/Time Date/Time Type Type Clinicians Facility Department ID 2022-03-16 2022-03-[address] [facility] [address] 09:23:57 09:23:57 F Michelet 2022-03-11 2022-03-[address] [facility] [address] 08:55:10 08:55:10 F Michelet 2022-03-11 2022-03-11 Outpatient [id number] 00:00:00 00:00:00 Visit 05p7-4h67 9f7-8e28-3 -8666-d37 [id number] 2022-01-19 2022-01-19 [address] [facility] [address] 12:57:51 12:57:51 F Michelet 2022-01-13 2022-01-13 Outpatient [id number] 00:00:00 00:00:00 Visit 186f-4c1c 86f-4c1c-b -dx0b-583 o5l-034dd3 yy79pci36 2fec32 2021-12-17 2021-12-17 Outpatient [id number] [id number]-y 00:00:00 00:00:00 Visit a46c-11kp 23d-48ae-a -t058-983 515-162f1c [id number] 4409fd 2021-12-03 2021-12-03 Outpatient [id number] 00:00:00 00:00:00 Visit 6gu9-3169 ec2-4664-b -bm93-m31 t76-s19x08 v0382czr6 73dcf7 2020-06-17 2020-06-17 Transition Neeta James [id number] Univers 00:00:00 00:00:00 of Care Mihir Felder 350.1.13.10 [place] [id number] [facility] 403 Branch 2020-06-17 2020-06-17 Transition Neeta James [id number] 00:00:00 00:00:00 of Care Mihir Felder [id number] [place] 4.2.7.2.686 [id number] 2020-06-11 2020-06-15 Inpatient X RONY [facility] [id number] Univers 10:30:00 15:18:00 CARLITOS ity of [facility] 2020-06-11 2020-06-15 [facility] Leonarda Nava [facility] 1.2.84 0.114 [id number] [facility] 10:30:00 15:18:00 Encounter Carlitos Uribe [id number] ity of Leonarda Nava 4.2.7.2.686 [facility] [id number] [place] [id number] [place] 2020-06-11 2020-06-15 [facility] Leonarda Nava [facility] 1.2.84 0.114 [id number] 10:30:00 15:18:00 Encounter Carlitos Uribe [id number] Leonard[place] Nava 4.2.7.2.686 [facility] [id number] 2020-06-11 2020-06-11 Orders Doctor AD 1.2.840.114 [id number] Univers 00:00:00 00:00:00 Only Unassigned, DAVID 350.1.13.10 ity of [place] [facility] 4.2.7.2.686 [place] as [id number] [facility] 009 Branch 2020-06-11 2020-06-11 Orders Doctor AD 1.2.840.114 [id number] 00:00:00 00:00:00 Only Unassigned, DAVID 350.1.13.10 [place] [facility] 4.2.7.2.686 [id number] Results Test Description Test Time Test Comments Results Result Comments Source AMYLASE 2022-01-20 06:10:48 Test Item Value Reference Range Interpretation Comme nts AMYLASE (test code = 2205) 74 U/L 28-100 [id number] 06:10:48 Test Item Value Reference Range Interpretation Comments LIPASE (test code = 2058) 18 U/L 13-60 C-REACTIVE [id number] 06:10:48 Test Item Value Reference Range Interpretation Comments C-REACTIVE PROTEIN 1.6 MG/DL <0.5 H UNLESS O THERWISE (test code = 3513) INDICATED , ALL TESTING PERFORMED [facility] PATHOLOG[facility] [place]. [address] [place] [id number] [place] [address] DIRECTOR: DAVID GUALLPA M.D. CLIA NUMBER [id number] CAP ACCREDITATION N O. [id number] COMPREHENSIVE METABOLIC [id number] 05:50:31 Test Item Value Reference Range Interpretation Comments GLUCOSE (test code = 294 MG/DL 70-99 H 2216) BUN (test code = 11 MG/DL 8-23 2207) CREATININE (test 0.73 MG/DL 0.60-1.30 code = 2214) eGFR (2020 CKD-EPI) 88 ML/MIN/1.73 >60 (test code = 53698) CALC BUN/CREAT (test 15 RATIO 6-28 code = 2235) SODIUM (test code = 133 MEQ/L 182-339 1526) POTASSIUM (test code 4.9 MEQ/L 3.5-5.4 = 2227) CHLORIDE (test code 94 MEQ/L 95-107 L = 2215) CARBON DIOXIDE (test 28 MEQ/L 19-31 code = 2206) CALCIUM (test code = 9.6 MG/DL 8.5-10.5 2208) PROTEIN, TOTAL (test 7.8 G/DL 6.1-8.3 code = 2229) ALBUMIN (test code = 4.3 G/DL 3.5-5.2 2200) CALC GLOBULIN (test 3.5 G/DL 1.9-3.7 code = 2240) CALC A/G [...] 161 U/L 40-142 H (test code = 4) AST (test code = 45 U/L 9-40 H 8) ALT (test code = 32 U/L 5-40 2218) SEDIMENTATION [id number] 03:50:19 Test Item Value Reference Range Interpretation Comments SEDIMENTATION RATE (test code = 13 MM/HOUR 0-20 1017) CBC W/AUTO DIFF WITH [id number] 02:37:15 Test Item Value Reference Range Interpretation [...] RBCS (test 0.0 /100 See_Comment [Autom ated code = 1065) WBC'S message] The sy stem which generated this [...] RBCS 0.00 K/UL 0.00-0.11 (test code = 99850) COMPREHENSIVE METABOLIC [id number] 00:00:00 Test Item Value Reference Range Interpretation Comments GLUCOSE (test code = 2217) 294 MG/DL BUN (test code = 2208) 11 MG/DL CREATININE (test code = 2214) 0.73 MG/DL eGFR (2020 CKD-EPI) (test code 88 ML/MIN/1.73 = 92417) CALC BUN/CREAT (test code = 15 RATIO 2235) SODIUM (test code = 2231) 133 MEQ/L POTASSIUM (test code = 2228) 4.9 MEQ/L CHLORIDE (test code = 2215) 94 MEQ/L CARBON DIOXIDE (test code = 28 MEQ/L 220) CALCIUM (test code = 2209) 9.6 MG/DL PROTEIN, TOTAL (test code = 7.8 G/DL 2228) ALBUMIN (test code = 2201) 4.3 G/DL CALC GLOBULIN (test code = 3.5 G/DL 2240) CALC A/G RATIO (test code = 1.2 RATIO 2234) BILIRUBIN, TOTAL (test code = 0.4 MG/DL 220) ALKALINE PHOSPHATASE (test 161 U/L code = 2204) AST (test code = 2218) 45 U/L ALT (test code = 2219) 32 U/L COMPREHENSIVE METABOLIC [id number] 00:00:00 Test Item Value Reference Range Interpretation Comments GLUCOSE (test code = 2217) 294 MG/DL BUN (test code = 2208) 11 MG/DL CREATININE (test code = 2214) 0.73 MG/DL eGFR (2020 CKD-EPI) (test code 88 ML/MIN/1.73 = 99419) CALC BUN/CREAT (test code = 15 RATIO 2235) SODIUM (test code = 2231) 133 MEQ/L POTASSIUM (test code = 2228) 4.9 MEQ/L CHLORIDE (test code = 2215) 94 MEQ/L CARBON DIOXIDE (test code = 28 MEQ/L 2206) CALCIUM (test code = 2209) 9.6 MG/DL PROTEIN, TOTAL (test code = 7.8 G/DL 2228) ALBUMIN (test code = 2201) 4.3 G/DL CALC GLOBULIN (test code = 3.5 G/DL 2240) CALC A/G RATIO (test code = 1.2 RATIO 2234) BILIRUBIN, TOTAL (test code = 0.4 MG/DL 2206) ALKALINE PHOSPHATASE (test 161 U/L code = 2204) AST (test code = 2218) 45 U/L ALT (test code = 2219) 32 U/L [id number] 00:00:00 Test Item Value Reference Range Interpretation Comments AMYLASE (test code = 2205) 74 U/L [id number] 00:00:00 Test Item Value Reference Range Interpretation Comments AMYLASE (test code = 5) 74 U/L [id number] 00:00:00 Test Item Value Reference Range Interpretation Comments LIPASE (test code = 2057) 18 U/L [id number] 00:00:00 Test Item Value Reference Range Interpretation Comments LIPASE (test code = 8) 18 U/L [id number] 00:00:00 Test Item Value Reference Range Interpretation Comments LIPASE (test code = 2058) 18 U/L SEDIMENTATION [id number] 00:00:00 Test Item Value Reference Range Interpretation Comments SEDIMENTATION RATE (test code = 13 MM/HOUR 1017) SEDIMENTATION [id number] 00:00:00 Test Item Value Reference Range Interpretation Comments SEDIMENTATION RATE (test code = 13 MM/HOUR 1017) C-REACTIVE [id number] 00:00:00 Test Item Value Reference Range Interpretation Comments C-REACTIVE PROTEIN (test code = 1.6 MG/DL 3513) C-REACTIVE [id number] 00:00:00 Test Item Value Reference Range Interpretation Comments C-REACTIVE PROTEIN (test code = 1.6 MG/DL 3513) CBC W/AUTO [id number] 00:00:00 Test Item Value Reference Range Interpretation Comments WBC (test code = 1001) 8.3 K/UL RBC (test code = 1002) 4.97 M/UL HEMOGLOBIN (test code = 1003) 14.4 G/DL HEMATOCRIT (test code = 1004) 41.3 % MCV (test code = 1005) 83.1 fL MCH (test code = 1006) 29.0 PG MCHC (test code = 1007) 34.9 G/DL RDW (test code = 1038) 13.8 % NEUTROPHILS (test code = 1008) 75.3 % LYMPHOCYTES (test code = 1010) 16.2 % MONOCYTES (test code = 1011) 6.4 % EOSINOPHILS (test code = 1012) 1.2 % BASOPHILS (test code = 1013) 0.4 % IMMATURE GRANULOCYTES (test 0.5 % code = 1036) NUCLEATED RBCS (test code = 0.0 /100WBC'S 1065) PLATELET COUNT (test code = 143 K/UL 1015) ABSOLUTE NEUTROPHILS (test code 6.23 K/UL = 1066) ABSOLUTE LYMPHOCYTES (test code 1.34 K/UL = 1067) ABSOLUTE MONOCYTES (test code = 0.53 K/UL 1068) ABSOLUTE EOSINOPHILS (test code 0.10 K/UL = 1040) ABSOLUTE BASOPHILS (test code = 0.03 K/UL 1069) ABS IMMATURE GRANULOCYTES (test 0.04 K/UL code = 1020) ABS NUCLEATED RBCS (test code = 0.00 K/UL 72767) CBC W/AUTO [id number] 00:00:00 Test Item Value Reference Range Interpretation Comments WBC (test code = 1001) 8.3 K/UL RBC (test code = 1002) 4.97 M/UL HEMOGLOBIN (test code = 1003) 14.4 G/DL HEMATOCRIT (test code = 1004) 41.3 % MCV (test code = 1005) 83.1 fL MCH (test code = 1006) 29.0 PG MCHC (test code = 1007) 34.9 G/DL RDW (test code = 1038) 13.8 % NEUTROPHILS (test code = 1008) 75.3 % LYMPHOCYTES (test code = 1010) 16.2 % MONOCYTES (test code = 1011) 6.4 % EOSINOPHILS (test code = 1012) 1.2 % BASOPHILS (test code = 1013) 0.4 % IMMATURE GRANULOCYTES (test 0.5 % code = 1036) NUCLEATED RBCS (test code = 0.0 /100WBC'S 1065) PLATELET COUNT (test code = 143 K/UL 1015) ABSOLUTE NEUTROPHILS (test code 6.23 K/UL = 1066) ABSOLUTE LYMPHOCYTES (test code 1.34 K/UL = 1067) ABSOLUTE MONOCYTES (test code = 0.53 K/UL 1068) ABSOLUTE EOSINOPHILS (test code 0.10 K/UL = 1040) ABSOLUTE BASOPHILS (test code = 0.03 K/UL 1069) ABS IMMATURE GRANULOCYTES (test 0.04 K/UL code = 1020) ABS NUCLEATED RBCS (test code = 0.00 K/UL 05091) CBC W/AUTO [id number] 00:00:00 Test Item Value Reference Range Interpretation Comments WBC (test code = 1001) 8.3 K/UL RBC (test code = 1002) 4.97 M/UL HEMOGLOBIN (test code = 1003) 14.4 G/DL HEMATOCRIT (test code = 1004) 41.3 % MCV (test code = 1005) 83.1 fL MCH (test code = 1006) 29.0 PG MCHC (test code = 1007) 34.9 G/DL RDW (test code = 1038) 13.8 % NEUTROPHILS (test code = 1008) 75.3 % LYMPHOCYTES (test code = 1010) 16.2 % MONOCYTES (test code = 1011) 6.4 % EOSINOPHILS (test code = 1012) 1.2 % BASOPHILS (test code = 1013) 0.4 % IMMATURE GRANULOCYTES (test 0.5 % code = 1036) NUCLEATED RBCS (test code = 0.0 /100WBC'S 1065) PLATELET COUNT (test code = 143 K/UL 1015) ABSOLUTE NEUTROPHILS (test code 6.23 K/UL = 1066) ABSOLUTE LYMPHOCYTES (test code 1.34 K/UL = 1067) ABSOLUTE MONOCYTES (test code = 0.53 K/UL 1068) ABSOLUTE EOSINOPHILS (test code 0.10 K/UL = 1040) ABSOLUTE BASOPHILS (test code = 0.03 K/UL 1069) ABS IMMATURE GRANULOCYTES (test 0.04 K/UL code = 1020) ABS NUCLEATED RBCS (test code = 0.00 K/UL 22349) VITAMIN D, 25 [id number] 08:57:52 Test Item Value Reference Range Interpretation [...] ATED, ALL TESTING PERFORM ED ATCLINICAL PATH [facility]. [address] [place] [address] LABOR[address] DIRE CTOR: Micheal XAVIER. CLIA NUMBER [id number] CAP ACCREDITATION N O. [id number] COMPREHENSIVE METABOLIC [id number] 08:43:08 Test Item Value Reference Range Interpretation Comments GLUCOSE (test code = 269 MG/DL 70-99 H 2216) BUN (test code = 11 MG/DL 8-23 2207) CREATININE (test 0.89 MG/DL 0.60-1.30 code = 2214) eGFR (2020 CKD-EPI) 70 ML/MIN/1.73 >60 (test code = 49151) CALC BUN/CREAT (test 12 RATIO 6-28 code = 2235) SODIUM (test code = 139 MEQ/L 890-653 4095) POTASSIUM (test code 4.2 MEQ/L 3.5-5.4 = 2227) CHLORIDE (test code 101 MEQ/L 95-107 = [...] MG/DL See_Comment [Automated message] (test code = 220) The syste m which generated this result transmit radha reference range : <=1.2. The refe rence range was not u sed to interpret th is result as normal/abnormal . ALKALINE PHOSPHATASE 133 U/L 40-142 (test code = 2203) AST (test code = 33 U/L 9-40 2217) ALT (test code = 18 U/L 5-40 2218) LIPID [id number] 08:43:08 Test Item Value Reference Range Interpretation [...] MOREINFORMATION , SEE CLIENT ANNOUNCE MENT AT [email or web address] /CalcLDL-C RISK RATIO LDL/HDL 2.47 RATIO <3.22 (test code = 2238) HEMOGLOBIN [id number] 03:03:09 Test Item Value Reference Range Interpretation Comments HEMOGLOBIN A1c (test 9.3 % 4.2-5.6 H AMERIC AN DIABETES code = 23141) ASSOCIATION IDELINES FOR HGB A1C: PREDIABETES/INC REASED [...] LABORATORY C ONSULTATION. CBC W/AUTO DIFF WITH [id number] 02:21:47 Test Item Value Reference Range Interpretation [...] RBCS 0.00 K/UL 0.00-0.11 (test code = 10383) CBC W/AUTO [id number] 00:00:00 Test Item Value Reference Range Interpretation [...] NUCLEATED RBCS (test code = 0.00 K/UL 49445) CBC W/AUTO [id number] 00:00:00 Test Item Value Reference Range Interpretation [...] NUCLEATED RBCS (test code = 0.00 K/UL 70196) COMPREHENSIVE METABOLIC [id number] 00:00:00 Test Item Value Reference Range Interpretation Comments GLUCOSE (test code = 2217) 269 MG/DL BUN (test code = 2208) 11 MG/DL CREATININE (test code = 2214) 0.89 MG/DL eGFR (2020 CKD-EPI) (test code 70 ML/MIN/1.73 = 98082) CALC BUN/CREAT (test code = 12 RATIO [...] code = 2219) 18 U/L COMPREHENSIVE METABOLIC [id number] 00:00:00 Test Item Value Reference Range Interpretation Comments GLUCOSE (test code = 2217) 269 MG/DL BUN (test code = 2208) 11 MG/DL CREATININE (test code = 2214) 0.89 MG/DL eGFR (2020 CKD-EPI) (test code 70 ML/MIN/1.73 = 52048) CALC BUN/CREAT (test code = 12 RATIO [...] (test code = 2219) 18 U/L LIPID [id number] 00:00:00 Test Item Value Reference Range Interpretation Comments CHOLESTEROL (test code = 2210) 193 MG/DL TRIGLYCERIDES (test code = 2232) 261 MG/DL HDL CHOLESTEROL (test code = 2220) 45 MG/DL CALC LDL CHOL (test code = 2237) 111 MG/DL RISK RATIO LDL/HDL (test code = 2.47 RATIO 2238) LIPID [id number] 00:00:00 Test Item Value Reference Range Interpretation Comments CHOLESTEROL (test code = 2210) 193 MG/DL TRIGLYCERIDES (test code = 2232) 261 MG/DL HDL CHOLESTEROL (test code = 2220) 45 MG/DL CALC LDL CHOL (test code = 2237) 111 MG/DL RISK RATIO LDL/HDL (test code = 2.47 RATIO 2238) HEMOGLOBIN [id number] 00:00:00 Test Item Value Reference Range Interpretation Comments HEMOGLOBIN A1c (test code = 58232) 9.3 % HEMOGLOBIN [id number] 00:00:00 Test Item Value Reference Range Interpretation Comments HEMOGLOBIN A1c (test code = 64748) 9.3 % HEMOGLOBIN [id number] 00:00:00 Test Item Value Reference Range Interpretation Comments HEMOGLOBIN A1c (test code = 85417) 9.3 % VITAMIN D, 25 [id number] 00:00:00 Test Item Value Reference Range Interpretation Comments VITAMIN D, 25 OH (test code = 4958) 16 NG/ML VITAMIN D, 25 [id number] 00:00:00 Test Item Value Reference Range Interpretation Comments VITAMIN D, 25 OH (test code = 4958) 16 NG/ML CBC W/AUTO [id number] 00:00:00 Test Item Value Reference Range Interpretation [...] NUCLEATED RBCS (test code = 0.00 K/UL 23213) CBC W/AUTO [id number] 00:00:00 Test Item Value Reference Range Interpretation [...] NUCLEATED RBCS (test code = 0.00 K/UL 99772) CBC W/AUTO [id number] 00:00:00 Test Item Value Reference Range Interpretation [...] NUCLEATED RBCS (test code = 0.00 K/UL 07402) COMPREHENSIVE METABOLIC [id number] 00:00:00 Test Item Value Reference Range Interpretation Comments GLUCOSE (test code = 2217) 269 MG/DL BUN (test code = 2208) 11 MG/DL CREATININE (test code = 2214) 0.89 MG/DL eGFR (2020 CKD-EPI) (test code 70 ML/MIN/1.73 = 31030) CALC BUN/CREAT (test code = 12 RATIO [...] code = 2219) 18 U/L COMPREHENSIVE METABOLIC [id number] 00:00:00 Test Item Value Reference Range Interpretation Comments GLUCOSE (test code = 2217) 269 MG/DL BUN (test code = 2208) 11 MG/DL CREATININE (test code = 2214) 0.89 MG/DL eGFR (2020 CKD-EPI) (test code 70 ML/MIN/1.73 = 33002) CALC BUN/CREAT (test code = 12 RATIO [...] (test code = 2219) 18 U/L LIPID [id number] 00:00:00 Test Item Value Reference Range Interpretation Comments CHOLESTEROL (test code = 2210) 193 MG/DL TRIGLYCERIDES (test code = 2232) 261 MG/DL HDL CHOLESTEROL (test code = 2220) 45 MG/DL CALC LDL CHOL (test code = 2237) 111 MG/DL RISK RATIO LDL/HDL (test code = 2.47 RATIO 2238) LIPID [id number] 00:00:00 Test Item Value Reference Range Interpretation Comments CHOLESTEROL (test code = 2210) 193 MG/DL TRIGLYCERIDES (test code = 2232) 261 MG/DL HDL CHOLESTEROL (test code = 2220) 45 MG/DL CALC LDL CHOL (test code = 2237) 111 MG/DL RISK RATIO LDL/HDL (test code = 2.47 RATIO 2238) HEMOGLOBIN [id number] 00:00:00 Test Item Value Reference Range Interpretation Comments HEMOGLOBIN A1c (test code = 28123) 9.3 % HEMOGLOBIN [id number] 00:00:00 Test Item Value Reference Range Interpretation Comments HEMOGLOBIN A1c (test code = 91834) 9.3 % HEMOGLOBIN [id number] 00:00:00 Test Item Value Reference Range Interpretation Comments HEMOGLOBIN A1c (test code = 48798) 9.3 % VITAMIN D, 25 [id number] 00:00:00 Test Item Value Reference Range Interpretation Comments VITAMIN D, 25 OH (test code = 4958) 16 NG/ML VITAMIN D, 25 [id number] 00:00:00 Test Item Value Reference Range Interpretation Comments VITAMIN D, 25 OH (test code = 4958) 16 NG/ML CBC W/AUTO [id number] 00:00:00 Test Item Value Reference Range Interpretation [...] NUCLEATED RBCS (test code = 0.00 K/UL 07558) CBC W/AUTO [id number] 00:00:00 Test Item Value Reference Range Interpretation [...] NUCLEATED RBCS (test code = 0.00 K/UL 27795) CBC W/AUTO [id number] 00:00:00 Test Item Value Reference Range Interpretation [...] NUCLEATED RBCS (test code = 0.00 K/UL 15516) COMPREHENSIVE METABOLIC [id number] 00:00:00 Test Item Value Reference Range Interpretation Comments GLUCOSE (test code = 2217) 269 MG/DL BUN (test code = 2208) 11 MG/DL CREATININE (test code = 2214) 0.89 MG/DL eGFR (2020 CKD-EPI) (test code 70 ML/MIN/1.73 = 49531) CALC BUN/CREAT (test code = 12 RATIO 2235) SODIUM (test code = 2231) 139 MEQ/L POTASSIUM (test code = 2228) 4.2 MEQ/L CHLORIDE (test code = 2215) 101 MEQ/L CARBON DIOXIDE (test code = 24 MEQ/L 2206) CALCIUM (test code = 2209) 9.1 MG/DL [...] code = 2219) 18 U/L COMPREHENSIVE METABOLIC [id number] 00:00:00 Test Item Value Reference Range Interpretation Comments GLUCOSE (test code = 2217) 269 MG/DL BUN (test code = 2208) 11 MG/DL CREATININE (test code = 2214) 0.89 MG/DL eGFR (2020 CKD-EPI) (test code 70 ML/MIN/1.73 = 17172) CALC BUN/CREAT (test code = 12 RATIO 2235) SODIUM (test code = 2231) 139 MEQ/L POTASSIUM (test code = 2228) 4.2 MEQ/L CHLORIDE (test code = 2215) 101 MEQ/L CARBON DIOXIDE (test code = 24 MEQ/L 2205) CALCIUM (test code = 2209) 9.1 MG/DL PROTEIN, TOTAL (test code = 7.8 G/DL 2229) ALBUMIN (test code = 2201) 4.5 G/DL CALC GLOBULIN (test code = 3.3 G/DL 2240) CALC A/G RATIO (test code = 1.4 RATIO 2234) BILIRUBIN, TOTAL (test code = 0.3 MG/DL 2206) ALKALINE PHOSPHATASE (test 133 U/L code = 2204) AST (test code = 2218) 33 U/L ALT (test code = 2219) 18 U/L LIPID [id number] 00:00:00 Test Item Value Reference Range Interpretation Comments CHOLESTEROL (test code = 2210) 193 MG/DL TRIGLYCERIDES (test code = 2232) 261 MG/DL HDL CHOLESTEROL (test code = 2220) 45 MG/DL CALC LDL CHOL (test code = 2237) 111 MG/DL RISK RATIO LDL/HDL (test code = 2.47 RATIO 2238) LIPID [id number] 00:00:00 Test Item Value Reference Range Interpretation Comments CHOLESTEROL (test code = 2210) 193 MG/DL TRIGLYCERIDES (test code = 2232) 261 MG/DL HDL CHOLESTEROL (test code = 2220) 45 MG/DL CALC LDL CHOL (test code = 2237) 111 MG/DL RISK RATIO LDL/HDL (test code = 2.47 RATIO 2238) HEMOGLOBIN [id number] 00:00:00 Test Item Value Reference Range Interpretation Comments HEMOGLOBIN A1c (test code = 68011) 9.3 % HEMOGLOBIN [id number] 00:00:00 Test Item Value Reference Range Interpretation Comments HEMOGLOBIN A1c (test code = 62985) 9.3 % HEMOGLOBIN [id number] 00:00:00 Test Item Value Reference Range Interpretation Comments HEMOGLOBIN A1c (test code = 27072) 9.3 % VITAMIN D, 25 [id number] 00:00:00 Test Item Value Reference Range Interpretation Comments VITAMIN D, 25 OH (test code = 4958) 16 NG/ML VITAMIN D, 25 [id number] 00:00:00 Test Item Value Reference Range Interpretation Comments VITAMIN D, 25 OH (test code = 4958) 16 NG/ML CBC W/AUTO [id number] 00:00:00 Test Item Value Reference Range Interpretation [...] NUCLEATED RBCS (test code = 0.00 K/UL 03766) CBC W/AUTO [id number] 00:00:00 Test Item Value Reference Range Interpretation [...] NUCLEATED RBCS (test code = 0.00 K/UL 95929) CBC W/AUTO [id number] 00:00:00 Test Item Value Reference Range Interpretation [...] NUCLEATED RBCS (test code = 0.00 K/UL 14767) COMPREHENSIVE METABOLIC [id number] 00:00:00 Test Item Value Reference Range Interpretation Comments GLUCOSE (test code = 2217) 269 MG/DL BUN (test code = 2208) 11 MG/DL CREATININE (test code = 2214) 0.89 MG/DL eGFR (2020 CKD-EPI) (test code 70 ML/MIN/1.73 = 90790) CALC BUN/CREAT (test code = 12 RATIO 2235) SODIUM (test code = 2231) 139 MEQ/L POTASSIUM (test code = 2228) 4.2 MEQ/L CHLORIDE (test code = 2215) 101 MEQ/L CARBON DIOXIDE (test code = 24 MEQ/L 2206) CALCIUM (test code = 2209) 9.1 MG/DL [...] code = 2219) 18 U/L COMPREHENSIVE METABOLIC [id number] 00:00:00 Test Item Value Reference Range Interpretation Comments GLUCOSE (test code = 2217) 269 MG/DL BUN (test code = 2208) 11 MG/DL CREATININE (test code = 2214) 0.89 MG/DL eGFR (2020 CKD-EPI) (test code 70 ML/MIN/1.73 = 23386) CALC BUN/CREAT (test code = 12 RATIO [...] (test code = 2219) 18 U/L LIPID [id number] 00:00:00 Test Item Value Reference Range Interpretation Comments CHOLESTEROL (test code = 2210) 193 MG/DL TRIGLYCERIDES (test code = 2232) 261 MG/DL HDL CHOLESTEROL (test code = 2220) 45 MG/DL CALC LDL CHOL (test code = 2237) 111 MG/DL RISK RATIO LDL/HDL (test code = 2.47 RATIO 2238) LIPID [id number] 00:00:00 Test Item Value Reference Range Interpretation Comments CHOLESTEROL (test code = 2210) 193 MG/DL TRIGLYCERIDES (test code = 2232) 261 MG/DL HDL CHOLESTEROL (test code = 2220) 45 MG/DL CALC LDL CHOL (test code = 2237) 111 MG/DL RISK RATIO LDL/HDL (test code = 2.47 RATIO 2238) HEMOGLOBIN [id number] 00:00:00 Test Item Value Reference Range Interpretation Comments HEMOGLOBIN A1c (test code = 56960) 9.3 % HEMOGLOBIN [id number] 00:00:00 Test Item Value Reference Range Interpretation Comments HEMOGLOBIN A1c (test code = 67825) 9.3 % HEMOGLOBIN [id number] 00:00:00 Test Item Value Reference Range Interpretation Comments HEMOGLOBIN A1c (test code = 30119) 9.3 % VITAMIN D, 25 [id number] 00:00:00 Test Item Value Reference Range Interpretation Comments VITAMIN D, 25 OH (test code = 4958) 16 NG/ML VITAMIN D, 25 [id number] 00:00:00 Test Item Value Reference Range Interpretation Comments VITAMIN D, 25 OH (test code = 4958) 16 NG/ML CBC W/AUTO [id number] 00:00:00 Test Item Value Reference Range Interpretation [...] NUCLEATED RBCS (test code = 0.00 K/UL 36164) COMPREHENSIVE METABOLIC [id number] 05:43:08 Test Item Value Reference Range Interpretation Comments GLUCOSE (test code = 117 MG/DL 70-99 H 2216) BUN (test code = 16 MG/DL 8-23 2207) CREATININE (test 0.77 MG/DL 0.60-1.30 code = 221) eGFR (2020 CKD-EPI) 83 ML/MIN/1.73 >60 (test code = 93626) CALC BUN/CREAT (test 21 RATIO 6-28 code = 2235) SODIUM (test code = 142 MEQ/L 629-915 3987) POTASSIUM (test code 4.4 MEQ/L 3.5-5.4 = 2227) CHLORIDE (test code 105 MEQ/L 95-107 = 221) CARBON DIOXIDE (test 17 MEQ/L 19-31 L code = 220) CALCIUM (test code = 9.6 MG/DL 8.5-10.5 [...] code = 18 U/L 5-40 2218) LIPID [id number] 05:43:08 Test Item Value Reference Range Interpretation [...] MOREINFORMATION , SEE CLIENT ANNOUNCE MENT AT [email or web address] /CalcLDL-C RISK RATIO LDL/HDL 2.69 RATIO <3.22 (test code = 2238) HEMOGLOBIN [id number] 03:36:34 Test Item Value Reference Range Interpretation Comments HEMOGLOBIN A1c (test 8.2 % 4.2-5.6 H [employer] AN DIABETES code = 70263) ASSOCIATION IDELIN[employer] FOR HGB A1C: PREDIABETES/INC REASED [...] LABORATORY C ONSULTATION. CBC W/AUTO DIFF WITH [id number] 03:15:01 Test Item Value Reference Range Interpretation [...] message] code = 1065) WBC'S The system [employer] generated this result transmitted ref erence range: [...] 0.00-0.11 UNLESS O THERWISE (test code = 77307) INDICATE D, ALL TESTING PERFORM ED ATCLINICAL PATH [facility]. [address] [place] [id number] [place] [address] DIRECTOR: DAVID GUALLPA M.D. CLIA NUMBER [id number] CAP ACCREDITATION N O. [id number] HEMOGLOBIN [id number] 00:00:00 Test Item Value Reference Range Interpretation Comments HEMOGLOBIN A1c (test code = 68271) 8.2 % HEMOGLOBIN [id number] 00:00:00 Test Item Value Reference Range Interpretation Comments HEMOGLOBIN A1c (test code = 29245) 8.2 % HEMOGLOBIN [id number] 00:00:00 Test Item Value Reference Range Interpretation Comments HEMOGLOBIN A1c (test code = 14616) 8.2 % COMPREHENSIVE METABOLIC [id number] 00:00:00 Test Item Value Reference Range Interpretation Comments GLUCOSE (test code = 2217) 117 MG/DL BUN (test code = 2208) 16 MG/DL CREATININE (test code = 2214) 0.77 MG/DL eGFR (2020 CKD-EPI) (test code 83 ML/MIN/1.73 = 46280) CALC BUN/CREAT (test code = 21 RATIO [...] code = 2219) 18 U/L COMPREHENSIVE METABOLIC [id number] 00:00:00 Test Item Value Reference Range Interpretation Comments GLUCOSE (test code = 2217) 117 MG/DL BUN (test code = 2208) 16 MG/DL CREATININE (test code = 2214) 0.77 MG/DL eGFR (2020 CKD-EPI) (test code 83 ML/MIN/1.73 = 37481) CALC BUN/CREAT (test code = 21 RATIO [...] (test code = 2219) 18 U/L LIPID [id number] 00:00:00 Test Item Value Reference Range Interpretation Comments CHOLESTEROL (test code = 2210) 180 MG/DL TRIGLYCERIDES (test code = 2232) 142 MG/DL HDL CHOLESTEROL (test code = 2220) 42 MG/DL CALC LDL CHOL (test code = 2237) 113 MG/DL RISK RATIO LDL/HDL (test code = 2.69 RATIO 2238) LIPID [id number] 00:00:00 Test Item Value Reference Range Interpretation Comments CHOLESTEROL (test code = 2210) 180 MG/DL TRIGLYCERIDES (test code = 2232) 142 MG/DL HDL CHOLESTEROL (test code = 2220) 42 MG/DL CALC LDL CHOL (test code = 2237) 113 MG/DL RISK RATIO LDL/HDL (test code = 2.69 RATIO 2238) CBC W/AUTO [id number] 00:00:00 Test Item Value Reference Range Interpretation [...] NUCLEATED RBCS (test code = 0.00 K/UL 79641) CBC W/AUTO [id number] 00:00:00 Test Item Value Reference Range Interpretation [...] NUCLEATED RBCS (test code = 0.00 K/UL 21179) CBC W/AUTO [id number] 00:00:00 Test Item Value Reference Range Interpretation [...] NUCLEATED RBCS (test code = 0.00 K/UL 44374) HEMOGLOBIN [id number] 00:00:00 Test Item Value Reference Range Interpretation Comments HEMOGLOBIN A1c (test code = 72768) 8.2 % HEMOGLOBIN [id number] 00:00:00 Test Item Value Reference Range Interpretation Comments HEMOGLOBIN A1c (test code = 91176) 8.2 % HEMOGLOBIN [id number] 00:00:00 Test Item Value Reference Range Interpretation Comments HEMOGLOBIN A1c (test code = 90857) 8.2 % COMPREHENSIVE METABOLIC [id number] 00:00:00 Test Item Value Reference Range Interpretation Comments GLUCOSE (test code = 2217) 117 MG/DL BUN (test code = 2208) 16 MG/DL CREATININE (test code = 2214) 0.77 MG/DL eGFR (2020 CKD-EPI) (test code 83 ML/MIN/1.73 = 89825) CALC BUN/CREAT (test code = 21 RATIO [...] code = 2219) 18 U/L COMPREHENSIVE METABOLIC [id number] 00:00:00 Test Item Value Reference Range Interpretation Comments GLUCOSE (test code = 2217) 117 MG/DL BUN (test code = 2208) 16 MG/DL CREATININE (test code = 2214) 0.77 MG/DL eGFR (2020 CKD-EPI) (test code 83 ML/MIN/1.73 = 26301) CALC BUN/CREAT (test code = 21 RATIO [...] (test code = 2219) 18 U/L LIPID [id number] 00:00:00 Test Item Value Reference Range Interpretation Comments CHOLESTEROL (test code = 2210) 180 MG/DL TRIGLYCERIDES (test code = 2232) 142 MG/DL HDL CHOLESTEROL (test code = 2220) 42 MG/DL CALC LDL CHOL (test code = 2237) 113 MG/DL RISK RATIO LDL/HDL (test code = 2.69 RATIO 2238) LIPID [id number] 00:00:00 Test Item Value Reference Range Interpretation Comments CHOLESTEROL (test code = 2210) 180 MG/DL TRIGLYCERIDES (test code = 2232) 142 MG/DL HDL CHOLESTEROL (test code = 2220) 42 MG/DL CALC LDL CHOL (test code = 2237) 113 MG/DL RISK RATIO LDL/HDL (test code = 2.69 RATIO 2238) CBC W/AUTO [id number] 00:00:00 Test Item Value Reference Range Interpretation [...] NUCLEATED RBCS (test code = 0.00 K/UL 28263) CBC W/AUTO [id number] 00:00:00 Test Item Value Reference Range Interpretation [...] NUCLEATED RBCS (test code = 0.00 K/UL 78042) CBC W/AUTO [id number] 00:00:00 Test Item Value Reference Range Interpretation [...] NUCLEATED RBCS (test code = 0.00 K/UL 00016) HEMOGLOBIN [id number] 00:00:00 Test Item Value Reference Range Interpretation Comments HEMOGLOBIN A1c (test code = 08801) 8.2 % HEMOGLOBIN [id number] 00:00:00 Test Item Value Reference Range Interpretation Comments HEMOGLOBIN A1c (test code = 51122) 8.2 % HEMOGLOBIN [id number] 00:00:00 Test Item Value Reference Range Interpretation Comments HEMOGLOBIN A1c (test code = 65435) 8.2 % COMPREHENSIVE METABOLIC [id number] 00:00:00 Test Item Value Reference Range Interpretation Comments GLUCOSE (test code = 2217) 117 MG/DL BUN (test code = 2208) 16 MG/DL CREATININE (test code = 2214) 0.77 MG/DL eGFR (2020 CKD-EPI) (test code 83 ML/MIN/1.73 = 02839) CALC BUN/CREAT (test code = 21 RATIO [...] code = 2219) 18 U/L COMPREHENSIVE METABOLIC [id number] 00:00:00 Test Item Value Reference Range Interpretation Comments GLUCOSE (test code = 2217) 117 MG/DL BUN (test code = 2208) 16 MG/DL CREATININE (test code = 2214) 0.77 MG/DL eGFR (2020 CKD-EPI) (test code 83 ML/MIN/1.73 = 53832) CALC BUN/CREAT (test code = 21 RATIO 2235) SODIUM (test code = 2231) 142 MEQ/L POTASSIUM (test code = 2228) 4.4 MEQ/L CHLORIDE (test code = 2215) 105 MEQ/L CARBON DIOXIDE (test code = 17 MEQ/L 2205) CALCIUM (test code = 2209) 9.6 MG/DL PROTEIN, TOTAL (test code = 8.2 G/DL 2228) ALBUMIN (test code = 220) 4.5 G/DL CALC GLOBULIN (test code = 3.7 G/DL 2239) CALC A/G RATIO (test code = 1.2 RATIO 2233) BILIRUBIN, TOTAL (test code = 0.4 MG/DL 2206) ALKALINE PHOSPHATASE (test 113 U/L code = 2204) AST (test code = 2218) 39 U/L ALT (test code = 2219) 18 U/L LIPID [id number] 00:00:00 Test Item Value Reference Range Interpretation Comments CHOLESTEROL (test code = 2210) 180 MG/DL TRIGLYCERIDES (test code = 2232) 142 MG/DL HDL CHOLESTEROL (test code = 2220) 42 MG/DL CALC LDL CHOL (test code = 2237) 113 MG/DL RISK RATIO LDL/HDL (test code = 2.69 RATIO 2238) LIPID [id number] 00:00:00 Test Item Value Reference Range Interpretation Comments CHOLESTEROL (test code = 2210) 180 MG/DL TRIGLYCERIDES (test code = 2232) 142 MG/DL HDL CHOLESTEROL (test code = 2220) 42 MG/DL CALC LDL CHOL (test code = 2237) 113 MG/DL RISK RATIO LDL/HDL (test code = 2.69 RATIO 2238) CBC W/AUTO [id number] 00:00:00 Test Item Value Reference Range Interpretation [...] NUCLEATED RBCS (test code = 0.00 K/UL 08697) CBC W/AUTO [id number] 00:00:00 Test Item Value Reference Range Interpretation [...] NUCLEATED RBCS (test code = 0.00 K/UL 38878) CBC W/AUTO [id number] 00:00:00 Test Item Value Reference Range Interpretation [...] NUCLEATED RBCS (test code = 0.00 K/UL 18211) HEMOGLOBIN [id number] 00:00:00 Test Item Value Reference Range Interpretation Comments HEMOGLOBIN A1c (test code = 71565) 8.2 % HEMOGLOBIN [id number] 00:00:00 Test Item Value Reference Range Interpretation Comments HEMOGLOBIN A1c (test code = 96682) 8.2 % HEMOGLOBIN [id number] 00:00:00 Test Item Value Reference Range Interpretation Comments HEMOGLOBIN A1c (test code = 27870) 8.2 % COMPREHENSIVE METABOLIC [id number] 00:00:00 Test Item Value Reference Range Interpretation Comments GLUCOSE (test code = 2217) 117 MG/DL BUN (test code = 2208) 16 MG/DL CREATININE (test code = 2214) 0.77 MG/DL eGFR (2020 CKD-EPI) (test code 83 ML/MIN/1.73 = 10949) CALC BUN/CREAT (test code = 21 RATIO [...] code = 2219) 18 U/L COMPREHENSIVE METABOLIC [id number] 00:00:00 Test Item Value Reference Range Interpretation Comments GLUCOSE (test code = 2217) 117 MG/DL BUN (test code = 2208) 16 MG/DL CREATININE (test code = 2214) 0.77 MG/DL eGFR (2020 CKD-EPI) (test code 83 ML/MIN/1.73 = 68052) CALC BUN/CREAT (test code = 21 RATIO [...] (test code = 2219) 18 U/L LIPID [id number] 00:00:00 Test Item Value Reference Range Interpretation Comments CHOLESTEROL (test code = 2210) 180 MG/DL TRIGLYCERIDES (test code = 2232) 142 MG/DL HDL CHOLESTEROL (test code = 2220) 42 MG/DL CALC LDL CHOL (test code = 2237) 113 MG/DL RISK RATIO LDL/HDL (test code = 2.69 RATIO 2238) LIPID [id number] 00:00:00 Test Item Value Reference Range Interpretation Comments CHOLESTEROL (test code = 2210) 180 MG/DL TRIGLYCERIDES (test code = 2232) 142 MG/DL HDL CHOLESTEROL (test code = 2220) 42 MG/DL CALC LDL CHOL (test code = 2237) 113 MG/DL RISK RATIO LDL/HDL (test code = 2.69 RATIO 2238) CBC W/AUTO [id number] 00:00:00 Test Item Value Reference Range Interpretation [...] NUCLEATED RBCS (test code = 0.00 K/UL 42292) CBC W/AUTO [id number] 00:00:00 Test Item Value Reference Range Interpretation [...] NUCLEATED RBCS (test code = 0.00 K/UL 96627) CBC W/AUTO [id number] 00:00:00 Test Item Value Reference Range Interpretation [...] NUCLEATED RBCS (test code = 0.00 K/UL 16501) CULTURE, [id number] 13:08:15SPECIMEN NUMBER: [id number] CULTURE, ROUTINE SPECIMEN NUMBER: [id number] SPECIMEN COMMENT: L 1ST TOE SOURCE: TOE REPORT STATUS: FINAL DIRECT GRAM STAIN: NO WBCs SEEN RARE GRAM VARIABLE BACILLI FEW GRAM POSITIVE COCCI IN PAIRS AND CLUSTERS ISOLATE NUMBER 1: ORGANISM: 08/02/2021 MODERATE GRAM NEGATIVE BACILLI IDENTIFICATION: 08/03/2021 PSEUDOMONAS PUTIDA ISOLATE NUMBER 2: ORGANISM: 08/03/2021 MODERATE STAPHYLOCOCCUS SPECIES IDENTIFICATION: 08/04/2021 METHICILLIN RESISTANT STAPHYLOCOCCUS AUREUS (MRSA) AD DITIONAL OBSERVATIONS: 08/04/2021 MODERATE NORMAL SKIN CHRISTIANE P. PUTIDA MRSA AMIKACIN SENSITIVE <=16CEFEPIME SENSITIVE <=2CEFTAZIDIME SENSITIVE 4CIPROFLOXACIN SENSITIVE <=1CLINDAMYCIN RESISTANT >4ERYTHROMYCIN RESISTANT >4LEVOFLOXACIN SENSITIVE <=2MEROP ENEM SENSITIVE 2OXACILLIN RESISTANT >2PIP/TAZOBAC SENSITIVE <=16RIFAMPIN SENSITIVE <=1TETRACYCLINE SENSITIVE <=1TOBRAMYCIN SENSITIVE <=4TRIMETH/SULFA SENSITIVE 2/38VANCOMYCIN SENSITIVE 1 NOTE: NUMBERS DISPLAYED REPRESENT MINIMUM INHIBITORY CONCENTRATION (JEIMY) WHICH IS EXPRESSED IN MCG/ML. UNLESS OTHERWISE INDICATED, ALL TESTING PERFORMED [facility] [address] [place] [address] WALLPAPER PRINTER: DAVID GUALLPA M.D. CLIA NUMBER [id number] [facility] [place] [id number], [id number] 00:00:00 Test Item Value Reference Range Interpretation Comments CULTURE, ROUTINE (test SPECIMEN NUMBER: code = 58520) [id number] CULTURE, [id number] 00:00:00 Test Item Value Reference Range Interpretation Comments CULTURE, ROUTINE (test SPECIMEN NUMBER: code = 65817) [id number] CULTURE, [id number] 00:00:00 Test Item Value Reference Range Interpretation Comments CULTURE, ROUTINE (test SPECIMEN NUMBER: code = 35784) [id number] CULTURE, [id number] 00:00:00 Test Item Value Reference Range Interpretation Comments CULTURE, ROUTINE (test SPECIMEN NUMBER: code = 61783) [id number] CULTURE, [id number] 00:00:00 Test Item Value Reference Range Interpretation Comments CULTURE, ROUTINE (test SPECIMEN NUMBER: code = 34287) [id number] CULTURE, [id number] 00:00:00 Test Item Value Reference Range Interpretation Comments CULTURE, ROUTINE (test SPECIMEN NUMBER: code = 10216) [id number] CULTURE, [id number] 00:00:00 Test Item Value Reference Range Interpretation Comments CULTURE, ROUTINE (test SPECIMEN NUMBER: code = 15255) [id number] CULTURE, [id number] 00:00:00 Test Item Value Reference Range Interpretation Comments CULTURE, ROUTINE (test SPECIMEN NUMBER: code = 21208) [id number] CULTURE, [id number] 00:00:00 Test Item Value Reference Range Interpretation Comments CULTURE, ROUTINE (test SPECIMEN NUMBER: code = 22611) [id number] CULTURE, [id number] 00:00:00 Test Item Value Reference Range Interpretation Comments CULTURE, ROUTINE (test SPECIMEN NUMBER: code = 12717) [id number] CULTURE, [id number] 00:00:00 Test Item Value Reference Range Interpretation Comments CULTURE, ROUTINE (test SPECIMEN NUMBER: code = 71646) [id number] CULTURE, [id number] 00:00:00 Test Item Value Reference Range Interpretation Comments CULTURE, ROUTINE (test SPECIMEN NUMBER: code = 73706) [id number] 00:00:00 Test Item Value Reference Range Interpretation Comments LIPASE (test code = 2057) 21 U/L [id number] 00:00:00 Test Item Value Reference Range Interpretation Comments LIPASE (test code = 2057) 21 U/L [id number] 00:00:00 Test Item Value Reference Range Interpretation Comments LIPASE (test code = 2057) 21 U/L CBC W/AUTO [id number] 00:00:00 Test Item Value Reference Range Interpretation [...] NUCLEATED RBCS (test code = 0.00 K/UL 90485) CBC W/AUTO [id number] 00:00:00 Test Item Value Reference Range Interpretation [...] NUCLEATED RBCS (test code = 0.00 K/UL 95055) CBC W/AUTO [id number] 00:00:00 Test Item Value Reference Range Interpretation [...] NUCLEATED RBCS (test code = 0.00 K/UL 19106) [id number] 00:00:00 Test Item Value Reference Range Interpretation Comments AMYLASE (test code = 5) 107 U/L [id number] 00:00:00 Test Item Value Reference Range Interpretation Comments AMYLASE (test code = 2204) 107 U/L [id number] 00:00:00 Test Item Value Reference Range Interpretation Comments LIPASE (test code = 2057) 21 U/L [id number] 00:00:00 Test Item Value Reference Range Interpretation Comments LIPASE (test code = 2057) 21 U/L [id number] 00:00:00 Test Item Value Reference Range Interpretation Comments LIPASE (test code = 2057) 21 U/L CBC W/AUTO [id number] 00:00:00 Test Item Value Reference Range Interpretation [...] NUCLEATED RBCS (test code = 0.00 K/UL 31112) CBC W/AUTO [id number] 00:00:00 Test Item Value Reference Range Interpretation [...] NUCLEATED RBCS (test code = 0.00 K/UL 73180) CBC W/AUTO [id number] 00:00:00 Test Item Value Reference Range Interpretation [...] NUCLEATED RBCS (test code = 0.00 K/UL 43718) [id number] 00:00:00 Test Item Value Reference Range Interpretation Comments AMYLASE (test code = 2205) 107 U/L [id number] 00:00:00 Test Item Value Reference Range Interpretation Comments AMYLASE (test code = 2205) 107 U/L [id number] 00:00:00 Test Item Value Reference Range Interpretation Comments LIPASE (test code = 8) 21 U/L [id number] 00:00:00 Test Item Value Reference Range Interpretation Comments LIPASE (test code = 2057) 21 U/L [id number] 00:00:00 Test Item Value Reference Range Interpretation Comments LIPASE (test code = 2057) 21 U/L CBC W/AUTO [id number] 00:00:00 Test Item Value Reference Range Interpretation [...] NUCLEATED RBCS (test code = 0.00 K/UL 24113) CBC W/AUTO [id number] 00:00:00 Test Item Value Reference Range Interpretation [...] NUCLEATED RBCS (test code = 0.00 K/UL 89820) CBC W/AUTO [id number] 00:00:00 Test Item Value Reference Range Interpretation [...] NUCLEATED RBCS (test code = 0.00 K/UL 21922) [id number] 00:00:00 Test Item Value Reference Range Interpretation Comments AMYLASE (test code = 2205) 107 U/L [id number] 00:00:00 Test Item Value Reference Range Interpretation Comments AMYLASE (test code = 2205) 107 U/L [id number] 00:00:00 Test Item Value Reference Range Interpretation Comments LIPASE (test code = 2057) 21 U/L [id number] 00:00:00 Test Item Value Reference Range Interpretation Comments LIPASE (test code = 2057) 21 U/L [id number] 00:00:00 Test Item Value Reference Range Interpretation Comments LIPASE (test code = 2057) 21 U/L CBC W/AUTO [id number] 00:00:00 Test Item Value Reference Range Interpretation [...] NUCLEATED RBCS (test code = 0.00 K/UL 76438) CBC W/AUTO [id number] 00:00:00 Test Item Value Reference Range Interpretation [...] NUCLEATED RBCS (test code = 0.00 K/UL 75836) CBC W/AUTO [id number] 00:00:00 Test Item Value Reference Range Interpretation [...] NUCLEATED RBCS (test code = 0.00 K/UL 27485) [id number] 00:00:00 Test Item Value Reference Range Interpretation Comments AMYLASE (test code = 2205) 107 U/L [id number] 00:00:00 Test Item Value Reference Range Interpretation Comments AMYLASE (test code = 2205) 107 U/L HEMOGLOBIN [id number] 00:00:00 Test Item Value Reference Range Interpretation Comments HEMOGLOBIN A1c (test code = 19025) 9.5 % HEMOGLOBIN [id number] 00:00:00 Test Item Value Reference Range Interpretation Comments HEMOGLOBIN A1c (test code = 96456) 9.5 % HEMOGLOBIN [id number] 00:00:00 Test Item Value Reference Range Interpretation Comments HEMOGLOBIN A1c (test code = 03052) 9.5 % HEMOGLOBIN [id number] 00:00:00 Test Item Value Reference Range Interpretation Comments HEMOGLOBIN A1c (test code = 14584) 9.5 % HEMOGLOBIN [id number] 00:00:00 Test Item Value Reference Range Interpretation Comments HEMOGLOBIN A1c (test code = 93626) 9.5 % HEMOGLOBIN [id number] 00:00:00 Test Item Value Reference Range Interpretation Comments HEMOGLOBIN A1c (test code = 01933) 9.5 % HEMOGLOBIN [id number] 00:00:00 Test Item Value Reference Range Interpretation Comments HEMOGLOBIN A1c (test code = 35646) 9.5 % HEMOGLOBIN [id number] 00:00:00 Test Item Value Reference Range Interpretation Comments HEMOGLOBIN A1c (test code = 02811) 9.5 % HEMOGLOBIN [id number] 00:00:00 Test Item Value Reference Range Interpretation Comments HEMOGLOBIN A1c (test code = 78714) 9.5 % HEMOGLOBIN [id number] 00:00:00 Test Item Value Reference Range Interpretation Comments HEMOGLOBIN A1c (test code = 89350) 9.5 % HEMOGLOBIN [id number] 00:00:00 Test Item Value Reference Range Interpretation Comments HEMOGLOBIN A1c (test code = 89341) 9.5 % HEMOGLOBIN [id number] 00:00:00 Test Item Value Reference Range Interpretation Comments HEMOGLOBIN A1c (test code = 26240) 9.5 % LIPID [id number] 00:00:00 Test Item Value Reference Range Interpretation Comments CHOLESTEROL (test code = 2210) 205 MG/DL TRIGLYCERIDES (test code = 2232) 262 MG/DL HDL CHOLESTEROL (test code = 2220) 41 MG/DL CALC LDL CHOL (test code = 2237) 124 MG/DL RISK RATIO LDL/HDL (test code = 3.02 RATIO 2238) LIPID [id number] 00:00:00 Test Item Value Reference Range Interpretation Comments CHOLESTEROL (test code = 2210) 205 MG/DL TRIGLYCERIDES (test code = 2232) 262 MG/DL HDL CHOLESTEROL (test code = 2220) 41 MG/DL CALC LDL CHOL (test code = 2237) 124 MG/DL RISK RATIO LDL/HDL (test code = 3.02 RATIO 2238) COMPREHENSIVE METABOLIC [id number] 00:00:00 Test Item Value Reference Range Interpretation Comments GLUCOSE (test code = 2217) 268 MG/DL BUN (test code = 2208) 13 MG/DL CREATININE (test code = 2214) 0.71 MG/DL eGFR AMER. (test code 101 ML/MIN/1.73 = 32041) eGFR NON- AMER. (test 87 ML/MIN/1.73 code = 84555) CALC BUN/CREAT (test code = 18 RATIO 2235) SODIUM (test code = 2231) 138 MEQ/L POTASSIUM (test code = 2228) 4.3 MEQ/L CHLORIDE (test code = 2215) 100 MEQ/L CARBON DIOXIDE (test code = 22 MEQ/L 2205) CALCIUM (test code = 2209) 9.2 MG/DL PROTEIN, TOTAL (test code = 8.0 G/DL ) ALBUMIN (test code = 2201) 4.7 G/DL CALC GLOBULIN (test code = 3.3 G/DL 2240) CALC A/G RATIO (test code = 1.4 RATIO 2234) BILIRUBIN, TOTAL (test code = 0.4 MG/DL 220) ALKALINE PHOSPHATASE (test 144 U/L code = 2204) AST (test code = 2218) 32 U/L ALT (test code = 2219) 20 U/L COMPREHENSIVE METABOLIC [id number] 00:00:00 Test Item Value Reference Range Interpretation Comments GLUCOSE (test code = 2217) 268 MG/DL BUN (test code = 2208) 13 MG/DL CREATININE (test code = 2214) 0.71 MG/DL eGFR AMER. (test code 101 ML/MIN/1.73 = 66316) eGFR NON- AMER. (test 87 ML/MIN/1.73 code = 75136) CALC BUN/CREAT (test code = 18 RATIO [...] BILIRUBIN, TOTAL (test code = 0.4 MG/DL 7) ALKALINE PHOSPHATASE (test 144 U/L code = 2204) AST (test code = 2218) 32 U/L ALT (test code = 2219) 20 U/L LIPID [id number] 00:00:00 Test Item Value Reference Range Interpretation Comments CHOLESTEROL (test code = 2210) 205 MG/DL TRIGLYCERIDES (test code = 2232) 262 MG/DL HDL CHOLESTEROL (test code = 2220) 41 MG/DL CALC LDL CHOL (test code = 2237) 124 MG/DL RISK RATIO LDL/HDL (test code = 3.02 RATIO 2238) LIPID [id number] 00:00:00 Test Item Value Reference Range Interpretation Comments CHOLESTEROL (test code = 2210) 205 MG/DL TRIGLYCERIDES (test code = 2232) 262 MG/DL HDL CHOLESTEROL (test code = 2220) 41 MG/DL CALC LDL CHOL (test code = 2237) 124 MG/DL RISK RATIO LDL/HDL (test code = 3.02 RATIO 2238) COMPREHENSIVE METABOLIC [id number] 00:00:00 Test Item Value Reference Range Interpretation Comments GLUCOSE (test code = 2217) 268 MG/DL BUN (test code = 2208) 13 MG/DL CREATININE (test code = 2214) 0.71 MG/DL eGFR AMER. (test code 101 ML/MIN/1.73 = 33685) eGFR NON- AMER. (test 87 ML/MIN/1.73 code = 49842) CALC BUN/CREAT (test code = 18 RATIO [...] code = 2219) 20 U/L COMPREHENSIVE METABOLIC [id number] 00:00:00 Test Item Value Reference Range Interpretation Comments GLUCOSE (test code = 2217) 268 MG/DL BUN (test code = 2208) 13 MG/DL CREATININE (test code = 2214) 0.71 MG/DL eGFR AMER. (test code 101 ML/MIN/1.73 = 31615) eGFR NON- AMER. (test 87 ML/MIN/1.73 code = 35132) CALC BUN/CREAT (test code = 18 RATIO [...] A/G RATIO (test code = 1.4 RATIO 223) BILIRUBIN, TOTAL (test code = 0.4 MG/DL 2206) ALKALINE PHOSPHATASE (test 144 U/L code = 2204) AST (test code = 2218) 32 U/L ALT (test code = 2219) 20 U/L LIPID [id number] 00:00:00 Test Item Value Reference Range Interpretation Comments CHOLESTEROL (test code = 2210) 205 MG/DL TRIGLYCERIDES (test code = 2232) 262 MG/DL HDL CHOLESTEROL (test code = 2220) 41 MG/DL CALC LDL CHOL (test code = 2237) 124 MG/DL RISK RATIO LDL/HDL (test code = 3.02 RATIO 2238) LIPID [id number] 00:00:00 Test Item Value Reference Range Interpretation Comments CHOLESTEROL (test code = 2210) 205 MG/DL TRIGLYCERIDES (test code = 2232) 262 MG/DL HDL CHOLESTEROL (test code = 2220) 41 MG/DL CALC LDL CHOL (test code = 2237) 124 MG/DL RISK RATIO LDL/HDL (test code = 3.02 RATIO 2238) COMPREHENSIVE METABOLIC [id number] 00:00:00 Test Item Value Reference Range Interpretation Comments GLUCOSE (test code = 2217) 268 MG/DL BUN (test code = 2208) 13 MG/DL CREATININE (test code = 2214) 0.71 MG/DL eGFR AMER. (test code 101 ML/MIN/1.73 = 16666) eGFR NON- AMER. (test 87 ML/MIN/1.73 code = 10842) CALC BUN/CREAT (test code = 18 RATIO 2235) SODIUM (test code = 2231) 138 MEQ/L POTASSIUM (test code = 2228) 4.3 MEQ/L CHLORIDE (test code = 2215) 100 MEQ/L CARBON DIOXIDE (test code = 22 MEQ/L 2205) CALCIUM (test code = 2209) 9.2 MG/DL PROTEIN, TOTAL (test code = 8.0 G/DL 222) ALBUMIN (test code = 2201) 4.7 G/DL CALC GLOBULIN (test code = 3.3 G/DL 2240) CALC A/G RATIO (test code = 1.4 RATIO 2234) BILIRUBIN, TOTAL (test code = 0.4 MG/DL 220) ALKALINE PHOSPHATASE (test 144 U/L code = 2204) AST (test code = 2218) 32 U/L ALT (test code = 2219) 20 U/L COMPREHENSIVE METABOLIC [id number] 00:00:00 Test Item Value Reference Range Interpretation Comments GLUCOSE (test code = 2217) 268 MG/DL BUN (test code = 2208) 13 MG/DL CREATININE (test code = 2214) 0.71 MG/DL eGFR AMER. (test code 101 ML/MIN/1.73 = 08117) eGFR NON- AMER. (test 87 ML/MIN/1.73 code = 52632) CALC BUN/CREAT (test code = 18 RATIO [...] BILIRUBIN, TOTAL (test code = 0.4 MG/DL 2207) ALKALINE PHOSPHATASE (test 144 U/L code = 2204) AST (test code = 2218) 32 U/L ALT (test code = 2219) 20 U/L LIPID [id number] 00:00:00 Test Item Value Reference Range Interpretation Comments CHOLESTEROL (test code = 2210) 205 MG/DL TRIGLYCERIDES (test code = 2232) 262 MG/DL HDL CHOLESTEROL (test code = 2220) 41 MG/DL CALC LDL CHOL (test code = 2237) 124 MG/DL RISK RATIO LDL/HDL (test code = 3.02 RATIO 2238) LIPID [id number] 00:00:00 Test Item Value Reference Range Interpretation Comments CHOLESTEROL (test code = 2210) 205 MG/DL TRIGLYCERIDES (test code = 2232) 262 MG/DL HDL CHOLESTEROL (test code = 2220) 41 MG/DL CALC LDL CHOL (test code = 2237) 124 MG/DL RISK RATIO LDL/HDL (test code = 3.02 RATIO 2238) COMPREHENSIVE METABOLIC [id number] 00:00:00 Test Item Value Reference Range Interpretation Comments GLUCOSE (test code = 2217) 268 MG/DL BUN (test code = 2208) 13 MG/DL CREATININE (test code = 2214) 0.71 MG/DL eGFR AMER. (test code 101 ML/MIN/1.73 = 01548) eGFR NON- AMER. (test 87 ML/MIN/1.73 code = 90287) CALC BUN/CREAT (test code = 18 RATIO [...] code = 2219) 20 U/L COMPREHENSIVE METABOLIC [id number] 00:00:00 Test Item Value Reference Range Interpretation Comments GLUCOSE (test code = 2217) 268 MG/DL BUN (test code = 2208) 13 MG/DL CREATININE (test code = 2214) 0.71 MG/DL eGFR AMER. (test code 101 ML/MIN/1.73 = 16827) eGFR NON- AMER. (test 87 ML/MIN/1.73 code = 17239) CALC BUN/CREAT (test code = 18 RATIO [...] ALT (test code = 2219) 20 U/L POCT GLUCOSE (AUTOMATED)2020-06-15 18:35:00 Test Item Value Reference Range Interpretation Comments POCT GLU (test code = 3114013303) 127 mg/dL 70-110 H Lab Interpretation (test code = Abnormal 09796-2) [facility] 14:28:00 Test Item Value Reference Range Interpretation Comments POCT GLU (test code = 5718987372) 151 mg/dL 70-110 H Lab Interpretation (test code = Abnormal 39678-8) [facility] (NA, K, CL, CO2, GLUCOSE, BUN, CREATININE, CA)2020-06-15 12:15:00 Test Item Value Reference Range Interpretation Comments NA (test code = 141 mmol/L 135-145 7008588065) K (test code = 3.6 mmol/L 3.5-5 0278220359) CL (test code = 105 mmol/L 98-108 1308466103) CO2 TOTAL (test code = 30 mmol/L 23-31 9429539422) AGAP (test code = 2-16 6708826811) BUN (test code = 15 mg/dL 7-23 6366998404) GLUCOSE (test code = 89 mg/dL 70-110 8912014529) CREATININE (test code 0.57 mg/dL 0.5-1.04 = 2515339266) CALCIUM (test code = 8.9 mg/dL 8.6-10.6 6393096182) eGFR Calculation mL/min/1.73m2 (Non-) (test code = 1414479332) eGFR Calculation mL/min/1.73m2 () (test code = 9247262106) ISMAEL (test code = ISMAEL) Association of [...] or urine or abnormalities in imaging tests). [facility] with [id number] 12:07:00 Test Item Value Reference Range Interpretation Comments WBC (test code = See_Comment L [Automated 4145-2) message] The sy stem which generated this result transmitted reference range : 4.30 - 11.10 10*3/?L. The reference range was not used to interpret this result as normal/abnormal . RBC (test code = See_Comment [Automated 499-8) message] The sy stem which generated this [...] RDW-SD (test code = 47.9 fL 39-49.9 22037-8) RDW-CV (test code = 15.2 % 12-15.5 788-0) PLT (test code = See_Comment L [Automated 777-3) message] The sy stem which generated this result transmitted reference range : 166 - 358 10*3/ ?L. The reference r ludivina was not used to interpret this result as normal/abnormal . MPV (test code = 12.1 fL 9.5-12.9 63620-8) NRBC/100 WBC (test See_Comment [Automat ed code = 5347647552) message] The system which generated this result transmitted reference range : 0.0 - 10.0 /100 WBCs. The refer ence range was not u sed to interpret th is result as normal/abnormal . NRBC x10^3 (test code <0.01 See_Comment [Auto mated = 9621571619) message] The s ystem which generated this result transmitted reference range : 10*3/?L. The reference range was not used to interpret this result as normal/abnormal . GRAN MAT (NEUT) % 70.9 % (test code = 770-8) IMM GRAN % (test code 0.50 % = 3164114525) LYMPH % (test code = 20.7 % 736-9) MONO % (test code = 7.9 % 5905-5) EOS % (test code = 0.0 % 713-8) BASO % (test code = 0.0 % 706-2) GRAN MAT x10^3(ANC) 2.87 10*3/uL 1.88-7.09 (test code = 6409006045) IMM GRAN x10^3 (test <0.03 0-0.06 code = 9871102879) LYMPH x10^3 (test code 0.84 10*3/uL 1.32-3.29 L = 731-0) MONO x10^3 (test code 0.32 10*3/uL 0.33-0.92 L = 742-7) EOS x10^3 (test code = <0.03 0.03-0.39 L 711-2) BASO x10^3 (test code <0.03 0.01-0.07 = 704-7) Lab Interpretation Abnormal (test code = 30635-4) [facility] GLUCOSE (AUTOMATED)2020-06-14 22:51:00 Test Item Value Reference Range Interpretation Comments POCT GLU (test code = 5975229703) 162 mg/dL 70-110 H Lab Interpretation (test code = Abnormal 65565-5) [facility] GLUCOSE (AUTOMATED)2020-06-14 17:54:00 Test Item Value Reference Range Interpretation Comments POCT GLU (test code = 6768034778) 156 mg/dL 70-110 H Lab Interpretation (test code = Abnormal 12289-1) [facility] GLUCOSE (AUTOMATED)2020-06-14 14:57:00 Test Item Value Reference Range Interpretation Comments POCT GLU (test code = 9845453444) 179 mg/dL 70-110 H Lab Interpretation (test code = Abnormal 61225-5) [facility] Metabolic Panel (NA, K, CL, CO2, GLUCOSE, BUN, CREATININE, CA)2020-06-14 14:40:00 Test Item Value Reference Range Interpretation Comments NA (test code = 138 mmol/L 135-145 9326072853) K (test code = 4.1 mmol/L 3.5-5 4827457904) CL (test code = 104 mmol/L 98-108 0765018881) CO2 TOTAL (test code = 25 mmol/L 23-31 1545943220) AGAP (test code = 2-16 7593809723) BUN (test code = 15 mg/dL 7-23 0425447994) GLUCOSE (test code = 194 mg/dL 70-110 H 8274997905) CREATININE (test code = 0.49 mg/dL 0.5-1.04 L 0890857434) CALCIUM (test code = 8.7 mg/dL 8.6-10.6 2636554205) eGFR Calculation mL/min/1.73m2 (Non-) (test code = 5659141633) eGFR Calculation mL/min/1.73m2 () (test code = 2431314526) ISMAEL (test code = ISMAEL) Association of [...] tests). Lab Interpretation Abnormal (test code = 53269-4) [facility] with Cluazvvqizrw9665-88-20 12:46:00 Test Item Value Reference Range Interpretation Comments WBC (test code = See_Comment L [Automated 5390-2) message] The sy stem which generated this [...] RDW-SD (test code = 48.3 fL 39-49.9 71315-7) RDW-CV (test code = 15.1 % 12-15.5 788-0) PLT (test code = See_Comment L [Automated 777-3) message] The sy stem which generated this result transmitted reference range : 166 - 358 10*3/ ?L. The reference r ludivina was not used to interpret this result as normal/abnormal . MPV (test code = 11.8 fL 9.5-12.9 85879-4) IPF % (test code = 5.8 % 1.3-7.7 Platelet count 6199571876) measured by fluorescence method. NRBC/100 WBC (test See_Comment [Automat ed code = 2056203841) message] The system which generated this result transmitted reference range : 0.0 - 10.0 /100 WBCs. The refer ence range was not u sed to interpret th is result as normal/abnormal . NRBC x10^3 (test code <0.01 See_Comment [Auto mated = 7921012812) message] The s ystem which generated this result transmitted reference range : 10*3/?L. The reference range was not used to interpret this result as normal/abnormal . GRAN MAT (NEUT) % 76.8 % (test code = 770-8) IMM GRAN % (test code 0.30 % = 4340826831) LYMPH % (test code = 15.9 % 736-9) MONO % (test code = 7.0 % 5905-5) EOS % (test code = 0.0 % 713-8) BASO % (test code = 0.0 % 706-2) GRAN MAT x10^3(ANC) 2.76 10*3/uL 1.88-7.09 (test code = 2739718033) IMM GRAN x10^3 (test <0.03 0-0.06 code = 1351002307) LYMPH x10^3 (test code 0.57 10*3/uL 1.32-3.29 L = 731-0) MONO x10^3 (test code 0.25 10*3/uL 0.33-0.92 L = 742-7) EOS x10^3 (test code = <0.03 0.03-0.39 L 711-2) BASO x10^3 (test code <0.03 0.01-0.07 = 704-7) Lab Interpretation Abnormal (test code = 77745-6) [facility] GLUCOSE (AUTOMATED)2020-06-14 06:24:00 Test Item Value Reference Range Interpretation Comments POCT GLU (test code = 7457888998) 272 mg/dL 70-110 H Lab Interpretation (test code = Abnormal 96671-9) [facility] GLUCOSE (AUTOMATED)2020-06-14 02:26:00 Test Item Value Reference Range Interpretation Comments POCT GLU (test code = 318 mg/dL 70-110 H Notifi ed Provider 9366818949) Lab Interpretation (test Abnormal code = 73262-7) [facility] GLUCOSE (AUTOMATED)2020-06-14 02:08:00 Test Item Value Reference Range Interpretation Comments POCT GLU (test code = 3868771508) 279 mg/dL 70-110 H Lab Interpretation (test code = Abnormal 56362-0) [facility] GLUCOSE (AUTOMATED)2020-06-13 19:05:00 Test Item Value Reference Range Interpretation Comments POCT GLU (test code = 4468300661) 250 mg/dL 70-110 H Lab Interpretation (test code = Abnormal 87953-1) [facility] GLUCOSE (AUTOMATED)2020-06-13 15:51:00 Test Item Value Reference Range Interpretation Comments POCT GLU (test code = 2871020265) 242 mg/dL 70-110 H Lab Interpretation (test code = Abnormal 26080-3) [facility] with Tlmdzesdgfbd1388-05-99 15:39:00 Test Item Value Reference Range Interpretation Comments WBC (test code = See_Comment LL [Automated 3290-2) message] The sy stem which generated this [...] RDW-SD (test code = 48.3 fL 39-49.9 51954-2) RDW-CV (test code = 15.1 % 12-15.5 788-0) PLT (test code = See_Comment L [Automated 777-3) message] The sy stem which generated this result transmitted reference range : 166 - 358 10*3/ ?L. The reference r ludivina was not used to interpret this result as normal/abnormal . MPV (test code = 11.7 fL 9.5-12.9 87763-6) IPF % (test code = 5.3 % 1.3-7.7 Platelet count [id number]) measured by fluorescence method. NRBC/100 WBC (test See_Comment [Automat ed code = [id number]) message] The system which generated this result transmitted reference range : 0.0 - 10.0 /100 WBCs. The refer ence range was not u sed to interpret th is result as normal/abnormal . NRBC x10^3 (test code <0.01 See_Comment [Auto mated = [id number]) message] The s [employer]tem which generated this result transmitted reference range : 10*3/?L. The reference range was not used to interpret this result as normal/abnormal . GRAN MAT (NEUT) % 58.2 % (test code = 770-8) IMM GRAN % (test code 0.50 % = [id number]) LYMPH % (test code = 25.5 % 736-9) MONO % (test code = 15.8 % 5905-5) EOS % (test code = 0.0 % 713-8) BASO % (test code = 0.0 % 706-2) GRAN MAT x10^3(ANC) 1.14 10*3/uL 1.88-7.09 L (test code = [id number]) IMM GRAN x10^3 (test <0.03 0-0.06 code = [id number]) LYMPH x10^3 (test code 0.50 10*3/uL 1.32-3.29 L = 731-0) MONO x10^3 (test code 0.31 10*3/uL 0.33-0.92 L = 742-7) EOS x10^3 (test code = <0.03 0.03-0.39 L 711-2) BASO x10^3 (test code <0.03 0.01-0.07 = 704-7) PLT ESTIMATE (test Decreased Normal A code = 9317-9) Lab Interpretation Abnormal (test code = 40996-7) [facility] [id number] 14:28:03HISTORY: Elevated D dimer and inconclusive VQ [...] lobe of the liver, stable when compared [id number] CT studies. No aggressive bone lesions. 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 CONCLUSIONS:1. No acute pulmonary thromboembolism.2. Bilateral [...] right lobe of the liver,stable when compared [id number] CT studies.No aggressive bone lesions. Degenerative disc disease notedat T11-T12,T9-T10 levels and there is minimal compression in the upper plate of W8qabpwnglc body.CONCLUSIONS:1. No acute pulmonary thromboembolism.2. Bilateral peripherally base ground glass hazy infiltrates, consistentwith COVID 19 pulmonary infection. No lobar pneumonia. No pleural effusion.[facility] (NA, K, CL, CO2, GLUCOSE, BUN, CREATININE, CA)2020-06-13 13:09:00 Test Item Value Reference Range Interpretation Comments NA (test code = 135 mmol/L 135-145 9866768218) K (test code = 4.2 mmol/L 3.5-5 5093272746) CL (test code = 103 mmol/L 98-108 1990146770) CO2 TOTAL (test code = 26 mmol/L 23-31 1112692452) AGAP (test code = 2-16 0174473945) BUN (test code = 16 mg/dL 7-23 6517362929) GLUCOSE (test code = 204 mg/dL 70-110 H 6361936389) CREATININE (test code = 0.58 mg/dL 0.5-1.04 0749105908) CALCIUM (test code = 8.4 mg/dL 8.6-10.6 L 1263010962) eGFR Calculation mL/min/1.73m2 (Non-) (test code = 3950764872) eGFR Calculation mL/min/1.73m2 () (test code = 9935500257) ISMAEL (test code = ISMAEL) Association of [...] tests). Lab Interpretation Abnormal (test code = 88336-2) [facility] Austin[facility] Plasma (in units): 1 Units~Indication: Dilutional Aadlagyigesi1543-64-94 04:34:33 Test Item Value Reference Range Interpretation Comments Unit Blood Type (test O Pos code = 4410) ISBT Blood Type Code (test code = 740483) Unit Number (test code [id number] = 4411) Blood Expiration Date & Time (test code = 468339) Status Information Issued (test code = 4412) Product Identification FFP (test code = 4413) Product Code (test L2769E13 Performed at [facility] code = 4414) Laboratory Services - [facility] Blood [address] [place], [place] [id number] Free: [phone] A No. [id number] [facility] ONLY COVID QVLAHNWWQIVYDM2377-14-37 04:02:00COVID DMT InterpretationInterpretation/Recommendations: Molecular NAAT Tests for Active Infection with the SARS-CoV-2 Virus: The current test result is positive for the SARS-CoV-2 virus that causes COVID-19 illness. In zmjy-ri-jekhvvmn illness, the patient may be considered no [...] COVID-19 testing the patient has had at [facility], including molecular NAAT testing(more commonly known as PCR testing and Rapid ID Now testing) and antibody testing. It does not takeinto account any testing that a patient has had outside of the [facility] medical record. [facility] LABORATORY SERVICESCOVID XokkdnlJYWC-RkG-9 Rapid ID NOW (no units) ? ? Date ? Value ? 06/11/2020 ? Positive (A) ? [facility] SERVICESUn[facility] CenterVITAMIN B12, [id number] 00:01:00 Test Item Value Reference Range Interpretation Comments VIT B12 (test code = 436 pg/mL 240-930 8710638979) ISMAEL (test code = ISMAEL) Biotin has been reported to cause a positive bias, interpret results relative to patient's use of biotin. Lab Interpretation (test Normal code = 22588-1) [facility] GLUCOSE (AUTOMATED)2020-06-12 23:59:00 Test Item Value Reference Range Interpretation Comments POCT GLU (test code = 2138919850) 197 mg/dL 70-110 H Lab Interpretation (test code = Abnormal 60670-7) [facility] GLUCOSE (AUTOMATED)2020-06-12 23:59:00 Test Item Value Reference Range Interpretation Comments POCT GLU (test code = 7969663904) 280 mg/dL 70-110 H Lab Interpretation (test code = Abnormal 00415-8) [facility]NM LUNG PERFUSION YTCW1211-16-26 19:07:15 Study inconclusive for pulmonary embolism.PULMONARY PERFUSION SCAN INDICATION: Respiratory failure elevated d-dimer in COVID, concern PE TECHNIQUE: Ventilation imaging was not performed due to coronavirusprecautions. The patient received an intravenous injection of 7 mCi jeNz99a MAA, and planar images were subsequently acquired in the anterior,posterior, right anterior oblique, left anterior oblique, left posterioroblique, and right posterior oblique projections. ? Comparison made with chest imaging from 06/11/2020. FINDINGS: Posterior segment of left upper lung showed subsegmental perfusion defect.Additional subsegmental perfusion abnormalities noted also in the leftlower lung. [facility] [[email or web address]], Radiant Results Inft User - 06/12/2020 1:08 PM CSTPULMONARY PERFUSION SCANINDICATION: Respiratory failure elevated d-dimer in COVID, concern PE TECHNIQUE: Ventilation imaging was not performed due to coronavirusprecautions. The patient received an intravenous injection of 7 mCi xtWa62h MAA, and planar images were subsequently acquired in the anterior,posterior, right anterior oblique, left anterior oblique, left posterioroblique, and right posterior oblique projections. Comparison made with chest imaging from 06/11/2020.FINDINGS:Posterior segment of left upper lung showed subsegmental perfusion defect.Additionalsubsegmental perfusion abnormalities noted also in the leftlower lung.IMPRESSIONStudy inconclusive for pulmonary embolism.[facility] GL[facility]SE (AUTOMATED)2020-06-12 14:59:00 Test Item Value Reference Range Interpretation Comments POCT GLU (test code = 8295026095) 144 mg/dL 70-110 H Lab Interpretation (test code = Abnormal 35598-9) [facility] AustinD-NUCHR7741-88-55 13:11:00 Test Item Value Reference Interpretation Comments Range D-DIMER (test code = See_Comment H [Autom ated 9947809982) message] The system which generated this result [...] diagnosis. Lab Interpretation Abnormal (test code = 21569-6) [facility] AustinABORH KHBPYOFRLEEV0018-97-56 12:08:53 Test Item Value Reference Range Interpretation Comments ABO & RH (test code O Positive Performe d at [facility] = 20) Laboratory [facility] Blood Bank[address] [place], [place] [address]Toll Free: [phone] A No. [id number] [facility] AustinType and Screen - ONCE [id number] 10:05:49 Test Item Value Reference Range Interpretation Comments ABO & RH (test code O Positive Performe d at [facility] = 20) Laboratory [facility] [address] [place], [place] [address]Toll Free: [phone] A No. [id number] IAT (test code = Negative Performed a t [facility] 1185) Laboratory [facility] [address] [place], [place] [address]Toll Free: [phone] A No. [id number] [facility] Austin[facility] Metabolic Panel (NA, K, CL, CO2, GLUCOSE, BUN, CREATININE, CA)2020-06-12 09:35:00 Test Item Value Reference Range Interpretation Comments NA (test code = 135 mmol/L 135-145 8007018817) K (test code = 3.9 mmol/L 3.5-5 2612802794) CL (test code = 104 mmol/L 98-108 2420227039) CO2 TOTAL (test code = 26 mmol/L 23-31 3437477176) AGAP (test code = 2-16 6434916819) BUN (test code = 13 mg/dL 7-23 6684897223) GLUCOSE (test code = 162 mg/dL 70-110 H 5098564998) CREATININE (test code = 0.76 mg/dL 0.5-1.04 0856340855) CALCIUM (test code = 7.7 mg/dL 8.6-10.6 L 4831626305) eGFR Calculation mL/min/1.73m2 (Non-) (test code = 5913486468) eGFR Calculation mL/min/1.73m2 () (test code = 3261450647) ISMAEL (test code = ISMAEL) Association of [...] tests). Lab Interpretation Abnormal (test code = 37785-7) [facility] with Xebowqepwtso6775-05-96 09:24:00 Test Item Value Reference Range Interpretation [...] RDW-SD (test code = 49.2 fL 39-49.9 85586-7) RDW-CV (test code = 15.3 % 12-15.5 788-0) PLT (test code = See_Comment L [Automated 777-3) message] The sy stem which generated this result transmitted reference range : 166 - 358 10*3/ ?L. The reference r ludivina was not used to interpret this result as normal/abnormal . MPV (test code = 11.3 fL 9.5-12.9 59944-5) IPF % (test code = 3.7 % 1.3-7.7 Platelet count 1329427166) measured by fluorescence method. NRBC/100 WBC (test See_Comment [Automat ed code = 8292403104) message] The system which generated this result transmitted reference range : 0.0 - 10.0 /100 WBCs. The refer ence range was not u sed to interpret th is result as normal/abnormal . NRBC x10^3 (test code <0.01 See_Comment [Auto mated = 2641378830) message] The s ystem which generated this result transmitted reference range : 10*3/?L. The reference range was not used to interpret this result as normal/abnormal . GRAN MAT (NEUT) % 56.9 % (test code = 770-8) IMM GRAN % (test code 0.70 % = 1156939941) LYMPH % (test code = 25.0 % 736-9) MONO % (test code = 17.1 % 5905-5) EOS % (test code = 0.3 % 713-8) BASO % (test code = 0.0 % 706-2) GRAN MAT x10^3(ANC) 1.73 10*3/uL 1.88-7.09 L (test code = 4549568214) IMM GRAN x10^3 (test <0.03 0-0.06 code = 3961214876) LYMPH x10^3 (test code 0.76 10*3/uL 1.32-3.29 L = 731-0) MONO x10^3 (test code 0.52 10*3/uL 0.33-0.92 = 742-7) EOS x10^3 (test code = <0.03 0.03-0.39 L 711-2) BASO x10^3 (test code <0.03 0.01-0.07 = 704-7) Lab Interpretation Abnormal (test code = 52645-1) [facility] AustinVIT[facility] D, [id number] 07:22:00 Test Item Value Reference Range Interpretation Comments VIT D 25OH (test code = 20 ng/mL 25-80 L 38117-1) ISMAEL (test code = ISMAEL) Deficiency: <20 ng/mLInsufficiency: 20-24 ng/mLOptimal: 25-80 ng/mL Lab Interpretation (test Abnormal code = 66157-9) [facility] AustinPROCALCITONIN2021-02-24 06:16:00 Test Item Value Reference Range Interpretation Comments Procalcitonin (test 0.06 ng/mL <0.07 code = 8811816803) ISMAEL (test code = ISMAEL) INTERPRETATION OF [...] lung abscess/empyema. For further information please refer to:[email or web address] Lab Interpretation Normal (test code = 66777-8) [facility] 02:08:00 Test Item Value Reference Range Interpretation Comments POCT GLU (test code = 6031602856) 166 mg/dL 70-110 H Lab Interpretation (test code = Abnormal 11061-8) [facility] GLUCOSE (AUTOMATED)2020-06-12 00:03:00 Test Item Value Reference Range Interpretation Comments POCT GLU (test code = 8104836887) 144 mg/dL 70-110 H Lab Interpretation (test code = Abnormal 49721-5) [facility] AustinIRON [id number] 00:02:00 Test Item Value Reference Range Interpretation Comments IRON (test code = 9112111894) 27 ug/dL 50-160 L TIBC (test code = 7511540211) 335 ug/dL 250-410 % FE SAT (test code = 2796140336) 8 % 20-50 L Lab Interpretation (test code = Abnormal 56191-9) [facility] AustinGLYCOSYLATED HEMOGLOBIN (A1C)2020-06-12 00:01:00 Test Item Value Reference Range Interpretation Comments HGB A1C (test code = 10.8 % 4-6 H 4548-4) ISMAEL (test code = ISMAEL) %A1C (NGSP) Interpretation (ADA)4.8-5.6 ? ? Normal or (Non-Diabetic Range)5.7-6.4 ? ? Increased Risk (Pre-Diabetic)>6.5 ?Diabetes Indicated Lab Interpretation Abnormal (test code = 70565-6) [facility] AustinTHYROID STIMULATING [id number] 23:31:00 Test Item Value Reference Range Interpretation Comments TSH (test code = See_Comment [Automated message] 5737787204) The system [employer] generated this result transmitted ref erence range: 0.45 - 4 .70 mIU/L. The refe rence range was not u sed to interpret this result as normal/abnor mal. Lab Interpretation (test Normal code = 35006-6) [facility] AustinN-TERMINAL LKY-[id number] 23:10:00 Test Item Value Reference Range Interpretation Comments NT-proBNP (test code 41 pg/mL See_Comment [Autom ated = 2735890423) message] The system which generated this result transmitted reference range : <=125. The reference range was not used to interpret this result as normal/abnormal . ISMAEL (test code = ISMAEL) Biotin has been reported to cause a negative bias, interpret results relative to patient's use of biotin. Lab Interpretation Normal (test code = 37832-2) [facility] AustinMagnesium [id number] 23:00:00 Test Item Value Reference Range Interpretation Comments MAGNESIUM (test code = 7896939870) 1.6 mg/dL 1.7-2.4 L Lab Interpretation (test code = Abnormal 40319-9) [facility] AustinTroponin [id number] 17:29:00 Test Item Value Reference Range Interpretation Comments TROPONIN I (test 0.001 ng/mL See_Comment [Automated code = 4147042105) message] The system which generated this result [...] ? Lab Interpretation Normal (test code = 21711-2) [facility] 1 [id number] 17:26:01HISTORY: Cough, fever, SOB, hypoxia. TECHNIQUE: Portable [...] chest is obtained. Comparison ismade with 06/23/2016 study.FINDINGS: No acute pneumonia. No pneumothorax or pleural effusion orpulmonary congestion detected. Cardiac size is within normal limits. CONCLUSIONS: No signs of acute cardiopulmonary disease. [facility] AustinCOVID-[facility] (ID NOW RAPID TESTING)2020-06-11 17:23:00 Test Item Value Reference Range Interpretation Comments SARS-CoV-2 Rapid ID NOW Positive Not Detected A (test code = 02229-1) ISMAEL (test code = ISMAEL) ID NOW COVID-19 Assay is an isothermal nucleic acid amplification test intended for the qualitative detection of nucleic acid from SARS-CoV-2 viral RNA in nasopharyngeal (PRODUCT PICKER) specimens. It is used under Emergency Use [...] indicated. Lab Interpretation Abnormal (test code = 93160-2) [facility] (NA, K, CL, CO2, GLUCOSE, BUN, CREATININE, CA)2020-06-11 17:18:00 Test Item Value Reference Range Interpretation Comments NA (test code = 134 mmol/L 135-145 L 7544801019) K (test code = 3.8 mmol/L 3.5-5 3656905531) CL (test code = 101 mmol/L 98-108 0195757473) CO2 TOTAL (test code = 21 mmol/L 23-31 L 9244560264) AGAP (test code = 2-16 2790559056) BUN (test code = 12 mg/dL 7-23 5280711491) GLUCOSE (test code = 173 mg/dL 70-110 H 0414616057) CREATININE (test code = 0.72 mg/dL 0.5-1.04 1667629986) CALCIUM (test code = 9.0 mg/dL 8.6-10.6 4310374195) eGFR Calculation mL/min/1.73m2 (Non-) (test code = 9341823674) eGFR Calculation mL/min/1.73m2 () (test code = 4872410134) ISMAEL (test code = ISMAEL) Association of [...] tests). Lab Interpretation Abnormal (test code = 39513-0) [facility] AustinHepatic Function Panel (ALB, T.PRO, BILI T, BU/BC, ALT, AST, ALK PHOS)2020-06-11 17:18:00 Test Item Value Reference Range Interpretation Comments TOTAL BILI (test code = 1989002710) 0.7 mg/dL 0.1-1.1 BILI UNCON (test code = 4549206400) 0.6 mg/dL 0.1-1.1 BILI CONJ (test code = 2491978810) 0.0 mg/dL 0-0.3 T PROTEIN (test code = 2298647703) 8.3 g/dL 6.3-8.2 H ALBUMIN (test code = 6229660923) 4.5 g/dL 3.5-5 ALK PHOS (test code = 8926480168) 124 U/L 34-122 H ALTv (test code = 1742-6) 50 U/L 5-35 H AST(SGOT) (test code = 7285467531) 103 U/L 13-40 H Lab Interpretation (test code = Abnormal 60022-9) [facility] with Avmvkkzlxktv2101-34-65 17:07:00 Test Item Value Reference Range Interpretation Comments WBC (test code = See_Comment [Automated 3890-2) message] The sy stem which generated this result transmitted reference range : 4.30 - 11.10 10*3/?L. The reference range was not used to interpret this result as normal/abnormal . RBC (test code = See_Comment [Automated 959-8) message] The sy stem which generated this [...] RDW-SD (test code = 45.5 fL 39-49.9 59112-0) RDW-CV (test code = 14.8 % 12-15.5 788-0) PLT (test code = See_Comment L [Automated 777-3) message] The sy stem which generated this result transmitted reference range : 166 - 358 10*3/ ?L. The reference r ludivina was not used to interpret this result as normal/abnormal . MPV (test code = 12.1 fL 9.5-12.9 55212-9) IPF % (test code = 4.1 % 1.3-7.7 Platelet count 0438921791) measured by fluorescence method. NRBC/100 WBC (test See_Comment [Automat ed code = 6876418072) message] The system which generated this result transmitted reference range : 0.0 - 10.0 /100 WBCs. The refer ence range was not u sed to interpret th is result as normal/abnormal . NRBC x10^3 (test code <0.01 See_Comment [Auto mated = 6798038659) message] The s ystem which generated this result transmitted reference range : 10*3/?L. The reference range was not used to interpret this result as normal/abnormal . GRAN MAT (NEUT) % 70.6 % (test code = 770-8) IMM GRAN % (test code 1.00 % = 4915046721) LYMPH % (test code = 13.8 % 736-9) MONO % (test code = 14.4 % 5905-5) EOS % (test code = 0.0 % 713-8) BASO % (test code = 0.2 % 706-2) GRAN MAT x10^3(ANC) 4.40 10*3/uL 1.88-7.09 (test code = 4946834466) IMM GRAN x10^3 (test 0.06 10*3/uL 0-0.06 code = 1938325127) LYMPH x10^3 (test code 0.86 10*3/uL 1.32-3.29 L = 731-0) MONO x10^3 (test code 0.90 10*3/uL 0.33-0.92 = 742-7) EOS x10^3 (test code = <0.03 0.03-0.39 L 711-2) BASO x10^3 (test code <0.03 0.01-0.07 = 704-7) Lab Interpretation Abnormal (test code = 22456-8) [facility] AustinLactic Acid Whole Owcie1011-35-13 16:53:00 Test Item Value Reference Range Interpretation Comments LACTIC ACID (test code = 1.70 mmol/L 0.5-2.2 8377636162) Lab Interpretation (test code = Normal 47173-0) [facility]
[2022-03-18] MEDS ORDERED: ONDANSETRON 4 MG (ODT) TAB ONE (08:37)
[2022-03-18] MEDS ORDERED: HYDROMORPHONE HCL 1 MG/ML INJ ONE (08:37)
--- NOTE | 2022-03-18 09:48 | RAD REPORT ---
EXAM DESCRIPTION: USExtremity Venous Uni Ltd03/18/2022 9:28 am CLINICAL HISTORY: left leg pain COMPARISON: January 2018 FINDINGS: Left common femoral, superficial femoral, popliteal and posterior tibial veins are compre ssible and demonstrate augmentation. Doppler demonstrates good flow. Grayscale, color and spectral analysis performed on all vessels IMPRESSION: No evidence of deep venous thrombosis involving the left lower extremity.
--- NOTE | 2022-03-18 10:53 | ER ---
Nurse's Notes [facility] Name: Sheila Vila Age: 71 yrs Sex: Female : 1950 Arrival Date: 03/18/2022 Time: 08:19 Bed 11 Private MD: Diagnosis: Chronic Knee Pain Presentation: 03/18 08:19 Chief complaint: Patient states: left knee pain after a fall 3 weeks ago. Coronavirus iw screen: At this time, the client does not indicate any symptoms associated with coronavirus-19. Ebola Screen: Patient negative for fever greater than or equal to 101.5 degrees Fahrenheit, and additional compatible Ebola Virus Disease symptoms Patient denies exposure to infectious person. Patient denies travel to an Ebola-affected area in the 21 days before illness onset. No symptoms or risks identified at this time. Initial Sepsis Screen: Does the patient meet any 2 criteria? No. Patient's initial sepsis screen is negative. Does the patient have a suspected source of infection? No. Patient's initial sepsis screen is negative. Risk Assessment: Do you want to hurt yourself or someone else? Patient reports no desire to harm self or others. Onset of symptoms was February 28, 2022. 08:19 Method Of Arrival: EMS: [facility] iw 08:20 Acuity: SYLVESTER 3 iw Triage Assessment: 08:30 General: Appears uncomfortable, Behavior is cooperative. iw Historical: - Allergies: 08:19 Darvocet-N 100; iw 08:19 PENICILLINS; iw 08:19 Propoxyphene; iw 08:19 Toradol; iw - PMHx: 08:19 Asthma; Cirrhosis; Hepatitis; resolved; Hypertension; Pneumonia; Pancreatitis; Diabetes iw - IDDM; COPD; - PSHx: 08:19 hysterectomy; Cholecystectomy; knee sx; iw Screenin:37 Abuse screen: Denies threats or abuse. Denies injuries from another. Nutritional iw screening: No deficits noted. Tuberculosis screening: No symptoms or risk factors identified. Fall Risk Fall in past 12 months (25 points). Assessment: 08:30 General: Appears uncomfortable, Behavior is cooperative. Pain: Complains of pain in iw left knee. Neuro: Level of Consciousness is awake, alert, obeys commands, Oriented to person, place, time, situation, Moves all extremities. Cardiovascular: Patient's skin is warm and dry. Respiratory: Airway Respiratory effort is even, unlabored. Derm: Skin is intact, is healthy with good turgor. Musculoskeletal: Range of motion: intact in all extremities. Vital Signs: 08:20 BP 146 / 99; Pulse 110; Resp 18; Temp 98.2; Pulse Ox 100% on R/A; Pain 10/10; iw ED Course: 08:19 Patient arrived in ED. iw 08:19 Satya Mittal PA is PHCP. m 08:19 Aracely Gibson MD is Attending Physician. jmm 08:20 Triage completed. iw 08:20 Arm band placed on. iw 08:30 Patient has correct armband on for positive identification. iw 08:35 Sharri Nava, RN is Primary Nurse. iw 09:30 US Extremity Venous Unilateral Ltd In Process Unspecified. EDMS 10:52 Alex Fletcher MD is Referral Physician. [facility] 12:37 No provider procedures requiring assistance completed. Patient did not have IV access iw during this emergency room visit. Administered Medications: 08:42 Drug: Dilaudid (HYDROmorphone) 1 mg Route: IM; Site: right deltoid; iw 09:10 Follow up: Response: No adverse reaction iw 08:42 Drug: Zofran (Ondansetron) 4 mg Route: PO; iw 09:05 Follow up: Response: No adverse reaction iw 12:13 Drug: fentaNYL Patch (50 mcg/hr) 1 patches Route: Transdermal; Site: affected area; iw Medication: 09:00 VIS not applicable for this client. iw Outcome: 10:53 Discharge ordered by . [facility] 12:37 Discharged to home via wheelchair, with family. iw 12:37 Condition: good 12:37 Discharge instructions given to patient, family, Instructed on discharge instructions, follow up and referral plans. Demonstrated understanding of instructions, follow-up care. 12:38 Patient left the ED. iw Signatures: Dispatcher [employer] EDMS Satya Mittal PA PA jmm Williams, Irene, RN RN iw
--- NOTE | 2022-03-18 10:54 | EDPHYS ---
Physician Documentation [facility] Name: Sheila Vila Age: 71 yrs Sex: Female : 1950 Arrival Date: 03/18/2022 Time: 08:19 Bed 11 Private MD: ED Physician Aracely Gibson HPI: 03/18 08:25 This 71 yrs old Black Female presents to ER via EMS with complaints of Knee Pain. jmm 08:25 The patient presents with pain. This is a 71 year old female with a history of asthma, jmm cirrhosis, hepatitis, htn, that presents to the ED with complaints of left knee pain. Patient states she has had increased pain since a fall which occurred approx 1 month ago. States pain worsened when she got up out of bed this morning. Patient is having pain on weight bearing. Denies fever, denies new injury. . Historical: - Allergies: 08:19 Darvocet-N 100; iw 08:19 PENICILLINS; iw 08:19 Propoxyphene; iw 08:19 Toradol; iw - PMHx: 08:19 Asthma; Cirrhosis; Hepatitis; resolved; Hypertension; Pneumonia; Pancreatitis; Diabetes iw - IDDM; COPD; - PSHx: 08:19 hysterectomy; Cholecystectomy; knee sx; iw ROS: 08:25 Constitutional: Negative for fever, chills, and weight loss, Cardiovascular: Negative jmm for chest pain, palpitations, and edema, Respiratory: Negative for shortness of breath, cough, wheezing, and pleuritic chest pain. 08:25 MS/extremity: Positive for pain. 08:25 All other systems are negative. Exam: 08:25 Constitutional: This is a well developed, well nourished patient who is awake, alert, jmm and in no acute distress. Head/Face: atraumatic. Eyes: EOMI, no conjunctival erythema appreciated ENT: Moist Mucus Membranes Neck: Trachea midline, Supple Chest/axilla: Normal chest wall appearance and motion. Cardiovascular: Regular rate and rhythm. No edema appreciated Respiratory: Normal respirations, no respiratory distress appreciated Abdomen/GI: Non distended Back: Normal ROM Skin: General appearance color normal 08:25 Musculoskeletal/extremity: pain appreciated on rom of the left knee, compartments are soft, full dorsalis pulse, NVI. 08:25 Skin: Appearance: Color: normal in color. 08:25 Neuro: Orientation: is normal, Mentation: is normal, Memory: is normal. 08:25 Psych: Behavior/mood is pleasant, cooperative. Vital Signs: 08:20 BP 146 / 99; Pulse 110; Resp 18; Temp 98.2; Pulse Ox 100% on R/A; Pain 10/; iw MDM: 08:25 Patient medically screened. [facility] 10:51 Data reviewed: vital signs, nurses notes. Counseling: I had a detailed discussion with [facility] the patient and/or guardian regarding: the historical points, exam findings, and any diagnostic results supporting the discharge/admit diagnosis, the need for outpatient follow up, to return to the emergency department if symptoms worsen or persist or if there are any questions or concerns that arise at home. 15:17 ED course: US is negative for DVT. Pain alleviated in the ED. Patient has had this pain [facility] chronically. I do not suspect septic arthritis I advised her to follow up with ortho.. 03/18 08:26 Order name: US Extremity Venous Unilateral Ltd; Complete Time: 09:52 [facility] 03/18 10:48 Order name: Knee Immobilizer; Complete Time: 12:31 [facility] Administered Medications: 08:42 Drug: Dilaudid (HYDROmorphone) 1 mg Route: IM; Site: right deltoid; iw 09:10 Follow up: Response: No adverse reaction iw 08:42 Drug: Zofran (Ondansetron) 4 mg Route: PO; iw 09:05 Follow up: Response: No adverse reaction iw 12:13 Drug: fentaNYL Patch (50 mcg/hr) 1 patches Route: Transdermal; Site: affected area; iw Disposition Summary: 03/18/22 10:53 Discharge Ordered Location: Home [facility] Condition: Stable [facility] Diagnosis - Chronic Knee Pain [facility] Followup: [facility] - With: Alex Fletcher MD - When: 2 - 3 days - Reason: Recheck today's complaints, Continuance of care, Re-evaluation by your physician Discharge Instructions: - Discharge Summary Sheet [facility] - Acute Knee Pain, Adult [facility] Forms: - Medication Reconciliation Form [facility] - Thank You Letter [facility] - Antibiotic Education [facility] - Prescription Opioid Use [facility] Prescriptions: - Voltaren Arthritis Pain 1 % Topical gel - apply 4 gram by TOPICAL route 4 times per day; 1 tube; Refills: 0, Product rolo Selection Permitted Signatures: Dispatcher [employer] Satya Rocha PA PA jmm Williams, Irene, RN RN iw
[2022-03-18] MEDS ORDERED: FENTANYL 25 MCG/PATCH TD ONE (12:11)
[2022-03-18 12:41] VITALS: BP 146/99; TEMP 98.2; O2SAT 100
== END 2022-03-18 12:38 | disposition home or self-care (01) ==
LOC: ER 08:11
DX: M25.562 Pain in left knee (principal); I10 Essential (primary) hypertension; Z88.0 Allergy status to penicillin; Z88.5 Allergy status to narcotic agent; Z88.8 Allergy status to other drugs, medicaments and biological substances
CPT/HCPCS: 93971; 96372; 99283; Q0162; J1170

== ENCOUNTER 2022-12-07 08:43 | Observation (INO) | payer OTHER ==
--- OUTSIDE RECORDS SUMMARY | 2022-12-07 09:00 | XMS REPORT | Continuity of Care Document ---
:1950 Author Organization [facility] t Address [address] [place] [address] Care Team Providers Name Role Phone Malvin Barnett Primary Care Physician Dov David Attending Clinician DOV FLEMING Attending Clinician Unavailable BENJAMÍN TAYLOR Attending Clinician Unavailable Benjamín Taylor MD Attending Clinician Perez Hollins MD Attending Clinician PEREZ HOLLINS Attending Clinician Unavailable Doctor Unassigned, [place] Attending Clinician Unavailable Lab, Ang - Db Attending Clinician Unavailable Denae NIX, Sendantonio K.H. Attending Clinician DENAE SENDANTONIO K.H. Attending Clinician Unavailable Mihir James RN Attending Clinician Unavailable CARLITOS URIBE Attending Clinician Unavailable Leonarda Nava DO Attending Clinician Carlitos Uribe MD Attending Clinician BENJAMÍN TAYLOR Admitting Clinician Unavailable DENAE SENDANTONIO K.HGuillaume Admitting Clinician Unavailable CARLITOS URIBE Admitting Clinician Unavailable Carlitos Uribe MD Admitting Clinician Payers Payer Name Policy Type Policy Number Effective Date Expiration Date S ource AET[employer] MEDICARE OUT [id number] 2021 OF NETWORK 00:00:00 Problems Condition Condition Condition Status Onset Resolution Last Treating Co mments Source Name Details Category Date Date Treatment Clinician Date Pneumonia Pneumonia Disease Active Uni vers due to due to 2-23 ity of COVID-19 COVID-19 00:00: [place] virus virus 00 Medical Branch Obesity Obesity Disease Active Univers (BMI (BMI 7-10 ity of 30-39.9) 30-39.9) 00:00: [place] 00 Medical Branch Allergies, Adverse Reactions, Alerts Allergy Allergy Status Severity Reaction(s) Onset Inactive Treating Comm ents Source Name Type Date Date Clinician TRAMADOL DRUG Active ITCHING Univers INGREDI 4-24 ity of 00:00: [place] [facility] Tramadol Propensi Active Itching Unive rs ty to 4-24 ity of adverse 00:00: [place] reaction 00 Medical s Branch Penicill Propensi Active 2021-04 ins - ty to 2-07 CLASS adverse 00:00: reaction 00 to drug Penicill Propensi Active ins ty to 4-08 adverse 00:00: reaction 00 to drug Propoxyp Propensi Active Nausea Univer s hene ty to and/or 8-31 ity of N-Acetam adverse Vomiting 00:00: [place] inophen reaction 00 Medical s Branch Penicill Propensi Active Rash Univer s ins ty to 8-31 ity of adverse 00:00: [place] reaction 00 Medical s Branch Ketorola Propensi Active Rash Univer s c ty to 8-31 ity of adverse 00:00: [place] reaction 00 Medical s Branch PROPOXYP DRUG Active N/V Univers HENE 8-31 ity of N-ACETAM 00:00: [place] INOPHEN 00 Medical Branch PENICILL Drug Active Rash Univers INS Class 8-31 ity of 00:00: [place] 00 Medical Branch KETOROLA DRUG Active ITCHING Univers C INGREDI 8-31 ity of 00:00: [place] 00 Medical Branch Penicill Propensi Active Rash Univer s ins ty to 8-31 ity of adverse 00:00: [place] reaction 00 Medical s Branch Social History Social Habit Start Date Stop Date Quantity Comments Source Exposure to 2022-08-16 2022-08-26 Not sure [facility] SARS-CoV-2 00:00:00 15:32:00 [facility] (event) [place] Alcohol intake 2022-04-20 2022-04-20 Current University 00:00:00 00:00:00 non-drinker of [facility] alcohol (finding) [place] Tobacco use and 2022-04-03 2022-04-03 Smokeless tobacco Un iversity of exposure 00:00:00 00:00:00 non-user [facility] Sex Ass[birth year] At [birth year] Universit y of 00:00:00 00:00:00 [facility] Smoking Status Start Date Stop Date Source Never smoked tobacco [facility] Medications Ordered Filled Start Stop Current Ordering Indication Dosage Frequency Signature Comments Components Source Medication Medication Date Date Medication? Clinician (SIG) Name Name morpHINE (4 2022- No 4mg 4 mg, Slow Univers mg/mL) 08-10 IV Push, ity of injection 4 21:15: 20:11 ONCE[place] 1 [place] mg 00 :00 dose, On Medical [facility] 08/10/22 at 1615, STAT ondansetron 2022- No 4mg 4 mg, Univ ers (ZOFRAN-ODT 08-10 Oral, ity of ) 21:15: 20:09 ONCE, 1 [place] disintegrat 00 :00 dose, On Medi antione ing tablet [facility] 4 mg 08/10/22 at 1615, HELENE levoFLOXaci 2022- No 500mg 500 mg, U nivers n 08-10 Oral, ity of (LEVAQUIN) 18:45: 18:54 ONCE, 1 [place] as tablet 500 00 :00 dose, On Medic al mg [facility] 08/10/22 at 1345, HELENE
Re ason for Anti-Infec tive: Empiric Therapy for Suspected Infection< br>Empiric Therapy Site: Urine
D uration of therapy: 72 hours iopamidol 2022- No [id number] 100mL 100 mL, Univers (ISOVUE 08-10 Intravenou ity o f 370-500 mL) 18:15: 17:18 s, ONCE, 1 [place] injection 00 :00 dose, On Medica l 100 mL [facility] 08/10/22 at 1315, Routine morpHINE (4 2022- No 4mg 4 mg, Slow Univers mg/mL) 08-10 IV Push, ity of injection 4 16:00: 15:49 ONCE, 1 [place] mg 00 :00 dose, On Medical [facility] 08/10/22 at 1100, STAT NaCl 0.9% 2022- No 1000mL at 999 Uni vers (NS) bolus 08-10 mL/hr, ity of infusion 15:45: 18:20 1,000 mL, [place] as 1,000 mL 00 :00 IV Medical Piggyback, Branch ONCE, 1 dose, On [facility] 08/10/22 at 1045, STAT ondansetron 0 2022- No 4mg 4 mg, Slow Univers (ZOFRAN 08-10 IV Push, ity of (PF)) 15:00: 15:48 ONCE, 1 [place] injection 4 00 :00 dose, On Medi antione mg [facility] 08/10/22 at 1000, HELENE ondansetron 3-0 Yes [id number] 4mg Take 1 Univers 4 mg 4-24 tablet by ity of disintegrat 00:00: mouth [place] ing tablet 00 every 8 Medica l (eight) Branch hours as needed for Nausea and Vomiting (N/V). ondansetron 3-0 Yes [id number] 4mg Take 1 Univers 4 mg 4-24 tablet by ity of disintegrat 00:00: mouth [place] ing tablet 00 every 8 Medica l (eight) Branch hours as needed for Nausea and Vomiting (N/V). ondansetron 3-0 Yes [id number] 4mg Take 1 Univers 4 mg 4-24 tablet by ity of disintegrat 00:00: mouth [place] ing tablet 00 every 8 Medica l (eight) Branch hours as needed for Nausea and Vomiting (N/V). ondansetron 3-0 Yes [id number] 4mg Take 1 Univers 4 mg 4-24 tablet by ity of disintegrat 00:00: mouth [place] ing tablet 00 every 8 Medica l (eight) Branch hours as needed for Nausea and Vomiting (N/V). levoFLOXaci 2022- No [id number] 500mg Take 1 Univers n 08-10 tablet by ity of (LEVAQUIN) 00:00: 04:59 mouth in [place] 500 mg 00 :00 the Medical tablet morning Branch for 3 days. HYDROcodone 2022- No [id number] 1{tbl} Take 1 U nivers -acetaminop -05 08-27 tablet by it y of hen (NORCO) 00:00: 04:59 [place] 5-325 mg 00 :00 every 6 Medical tablet (six) Branch hours as needed for Pain (scale 4-6) for up to 7 days. Indication s: acute pain HYDROcodone 2022- No [id number] 1{tbl} Take 1 U nivers -acetaminop -08-13 tablet by it y of hen (NORCO) 00:00: 04:59 [place] 5-325 mg 00 :00 every 6 Medical tablet (six) Branch hours as needed for Pain (scale 4-6) for up to 7 days. Indication s: acute pain tc 2022- No [id number] 42mCi 42 Univer s 99m-tetrofo 07-09 [facility]urie [facility] 16:15: 16:10 , [place] ([facility]) 00 :00 Intravenou Medi antione injection s, ONCE, 1 Bran ch 42 dose, On millicurie [place] 07/09/22 at 1115, Routine regadenoson 2022- No [id number] .4mg 0.4 mg, IV Univers (LEXISCAN) 07-09 Push, ity of injection 15:15: 15:35 ONCE, 1 [place] 0.4 mg 00 :00 dose, On Medical [place] Branch 07/09/22 at 1015, Routine
physics faculty member approving Restricted medication : MELIA PHILIPPE tc 2022- No [id number] 15.7mCi 15.7 Unive rs 99m-tetrofo 07-09 millicurie i ty of smin 13:45: 13:39 , [place] ([facility]) 00 :00 Intravenou Medi antione injection s, ONCE, 1 Bran ch 15.7 dose, On millicurie [facility] 07/09/22 at 0845, Routine DICLOFENAC 2023-0 Yes [id number] TAKE 1 Un [place] 75 mg EC 3-07 TABLET BY ity of tablet 00:00: MOUTH IN [place] 00 THE Medical MORNING Branch AND IN THE EVENING WITH MEALS DICLOFENAC 2023-0 Yes [id number] TAKE 1 Un [place] 75 mg EC 3-07 TABLET BY ity of tablet 00:00: MOUTH IN [place] 00 THE Medical MORNING Branch AND IN THE EVENING WITH MEALS DICLOFENAC 2023-0 Yes [id number] TAKE 1 Un [place] 75 mg EC 3-07 TABLET BY ity of tablet 00:00: MOUTH IN [place] 00 THE Medical MORNING Branch AND IN THE EVENING WITH MEALS DICLOFENAC 2023-0 Yes [id number] TAKE 1 Un [place] 75 mg EC 3-07 TABLET BY ity of tablet 00:00: MOUTH IN [place] 00 THE Medical MORNING Branch AND IN THE EVENING WITH MEALS DICLOFENAC 2023-0 Yes [id number] TAKE 1 Un [place] 75 mg EC 3-07 TABLET BY ity of tablet 00:00: MOUTH IN [place] 00 THE Medical MORNING Branch AND IN THE EVENING WITH MEALS DICLOFENAC 2023-0 Yes [id number] TAKE 1 Un [place] 75 mg EC 3-07 TABLET BY ity of tablet 00:00: MOUTH IN [place] 00 THE Medical MORNING Branch AND IN THE EVENING WITH MEALS DICLOFENAC 2023-0 Yes [id number] TAKE 1 Un [place] 75 mg EC 3-07 TABLET BY ity of tablet 00:00: MOUTH IN [place] 00 THE Medical MORNING Branch AND IN THE EVENING WITH MEALS DICLOFENAC 2023-0 Yes [id number] TAKE 1 Un [place] 75 mg EC 3-07 TABLET BY ity of tablet 00:00: MOUTH IN [place] 00 THE Medical MORNING Branch AND IN THE EVENING WITH MEALS DICLOFENAC 2023-0 Yes [id number] TAKE 1 Un [place] 75 mg EC 3-07 TABLET BY ity of tablet 00:00: MOUTH IN [place] 00 THE Medical MORNING Branch AND IN THE EVENING WITH MEALS DICLOFENAC 2023-0 Yes [id number] TAKE 1 Un [place] 75 mg EC 3-07 TABLET BY ity of tablet 00:00: MOUTH IN [place] 00 THE Medical MORNING Branch AND IN THE EVENING WITH MEALS DICLOFENAC 2023-0 Yes [id number] TAKE 1 Un [place] 75 mg EC 3-07 TABLET BY ity of tablet 00:00: MOUTH IN [place] 00 THE Medical MORNING Branch AND IN THE EVENING WITH MEALS DICLOFENAC 2023-0 Yes [id number] TAKE 1 Un [place] 75 mg EC 3-07 TABLET BY ity of tablet 00:00: MOUTH IN [place] 00 THE Medical MORNING Branch AND IN THE EVENING WITH MEALS DICLOFENAC 2023-0 Yes [id number] TAKE 1 Un [place] 75 mg EC 3-07 TABLET BY ity of tablet 00:00: MOUTH IN [place] 00 THE Medical MORNING Branch AND IN THE EVENING WITH MEALS DICLOFENAC 2023-0 Yes [id number] TAKE 1 Un [place] 75 mg EC 3-07 TABLET BY ity of tablet 00:00: MOUTH IN [place] 00 THE Medical MORNING Branch AND IN THE EVENING WITH MEALS DICLOFENAC 2023-0 Yes [id number] TAKE 1 Un [place] 75 mg EC 3-07 TABLET BY ity of tablet 00:00: MOUTH IN [place] 00 THE Medical MORNING Branch AND IN THE EVENING WITH MEALS DICLOFENAC 2023-0 Yes [id number] TAKE 1 Un [place] 75 mg EC 3-07 TABLET BY ity of tablet 00:00: MOUTH IN [place] 00 THE Medical MORNING Branch AND IN THE EVENING WITH MEALS DICLOFENAC 2023-0 Yes [id number] TAKE 1 Un [place] 75 mg EC 3-07 TABLET BY ity of tablet 00:00: MOUTH IN [place] 00 THE Medical MORNING Branch AND IN THE EVENING WITH MEALS DICLOFENAC 2023-0 Yes [id number] TAKE 1 Un [place] 75 mg EC 3-07 TABLET BY ity of tablet 00:00: MOUTH IN [place] 00 THE Medical MORNING Branch AND IN THE EVENING WITH MEALS DICLOFENAC 2023-0 Yes [id number] TAKE 1 Un [place] 75 mg EC 3-07 TABLET BY ity of tablet 00:00: MOUTH IN [place] 00 THE Medical MORNING Branch AND IN THE EVENING WITH MEALS DICLOFENAC 2023-0 Yes [id number] TAKE 1 Un [place] 75 mg EC 3-07 TABLET BY ity of tablet 00:00: MOUTH IN [place] 00 THE Medical MORNING Branch AND IN THE EVENING WITH MEALS DICLOFENAC 2023-0 Yes [id number] TAKE 1 Un [place] 75 mg EC 3-07 TABLET BY ity of tablet 00:00: MOUTH IN [place] 00 THE Medical MORNING Branch AND IN THE EVENING WITH MEALS DICLOFENAC 2023-0 Yes [id number] TAKE 1 Un [place] 75 mg EC 3-07 TABLET BY ity of tablet 00:00: MOUTH IN [place] 00 THE Medical MORNING Branch AND IN THE EVENING WITH MEALS DICLOFENAC 2023-0 Yes [id number] TAKE 1 Un [place] 75 mg EC 3-07 TABLET BY ity of tablet 00:00: MOUTH IN [place] 00 THE Medical MORNING Branch AND IN THE EVENING WITH MEALS liraglutide 2023-0 Yes [id number] .6mg inject 0.6 Univers (VICTOZA 2-01 mg under ity of 3-PEPE) 0.6 12:56: the skin. [place] mg/0.1 mL 04 Medical (18 mg/3 Branch mL) injection liraglutide 2023-0 Yes [id number] .6mg inject 0.6 Univers (VICTOZA 2-01 mg under ity of 3-PEPE) 0.6 12:56: the skin. [place] mg/0.1 mL 04 Medical (18 mg/3 Branch mL) injection liraglutide 2023-0 Yes [id number] .6mg inject 0.6 Univers (VICTOZA 2-01 mg under ity of 3-PEPE) 0.6 12:56: the skin. [place] mg/0.1 mL 04 Medical (18 mg/3 Branch mL) injection liraglutide 2023-0 Yes [id number] .6mg inject 0.6 Univers (VICTOZA 2-01 mg under ity of 3-PEPE) 0.6 12:56: the skin. [place] mg/0.1 mL 04 Medical (18 mg/3 Branch mL) injection liraglutide 2023-0 Yes [id number] .6mg inject 0.6 Univers (VICTOZA 2-01 mg under ity of 3-PEPE) 0.6 12:56: the skin. [place] mg/0.1 mL 04 Medical (18 mg/3 Branch mL) injection liraglutide 2023-0 Yes [id number] .6mg inject 0.6 Univers (VICTOZA 2-01 mg under ity of 3-PEPE) 0.6 12:56: the skin. [place] mg/0.1 mL 04 Medical (18 mg/3 Branch mL) injection liraglutide 2023-0 Yes [id number] .6mg inject 0.6 Univers (VICTOZA 2-01 mg under ity of 3-PEPE) 0.6 12:56: the skin. [place] mg/0.1 mL 04 Medical (18 mg/3 Branch mL) injection liraglutide 2023-0 Yes [id number] .6mg inject 0.6 Univers (VICTOZA 2-01 mg under ity of 3-PEPE) 0.6 12:56: the skin. [place] mg/0.1 mL 04 Medical (18 mg/3 Branch mL) injection liraglutide 2023-0 Yes [id number] .6mg inject 0.6 Univers (VICTOZA 2-01 mg under ity of 3-PEPE) 0.6 12:56: the skin. [place] mg/0.1 mL 04 Medical (18 mg/3 Branch mL) injection liraglutide 2023-0 Yes [id number] .6mg inject 0.6 Univers (VICTOZA 2-01 mg under ity of 3-PEPE) 0.6 12:56: the skin. [place] mg/0.1 mL 04 Medical (18 mg/3 Branch mL) injection liraglutide 2023-0 Yes [id number] .6mg inject 0.6 Univers (VICTOZA 2-01 mg under ity of 3-PEPE) 0.6 12:56: the skin. [place] mg/0.1 mL 04 Medical (18 mg/3 Branch mL) injection liraglutide 2023-0 Yes [id number] .6mg inject 0.6 Univers (VICTOZA 2-01 mg under ity of 3-PEPE) 0.6 12:56: the skin. [place] mg/0.1 mL 04 Medical (18 mg/3 Branch mL) injection liraglutide 2023-0 Yes [id number] .6mg inject 0.6 Univers (VICTOZA 2-01 mg under ity of 3-PEPE) 0.6 12:56: the skin. [place] mg/0.1 mL 04 Medical (18 mg/3 Branch mL) injection liraglutide 2023-0 Yes [id number] .6mg inject 0.6 Univers (VICTOZA 2-01 mg under ity of 3-PEPE) 0.6 12:56: the skin. [place] mg/0.1 mL 04 Medical (18 mg/3 Branch mL) injection liraglutide 2023-0 Yes [id number] .6mg inject 0.6 Univers (VICTOZA 2-01 mg under ity of 3-PEPE) 0.6 12:56: the skin. [place] mg/0.1 mL 04 Medical (18 mg/3 Branch mL) injection liraglutide 2023-0 Yes [id number] .6mg inject 0.6 Univers (VICTOZA 2-01 mg under ity of 3-PEPE) 0.6 12:56: the skin. [place] mg/0.1 mL 04 Medical (18 mg/3 Branch mL) injection liraglutide 2023-0 Yes [id number] .[id number] inject 0.6 Univers (VICTOZA 2-01 mg under ity of 3-PEPE) 0.6 12:56: the skin. [place] mg/0.1 mL 04 Medical (18 mg/3 Branch mL) injection liraglutide 2023-0 Yes [id number] .6mg inject 0.6 Univers (VICTOZA 2-01 mg under ity of 3-PEPE) 0.6 12:56: the skin. [place] mg/0.1 mL 04 Medical (18 mg/3 Branch mL) injection liraglutide 2023-0 Yes [id number] .6mg inject 0.6 Univers (VICTOZA 2-01 mg under ity of 3-PEPE) 0.6 12:56: the skin. [place] mg/0.1 mL 04 Medical (18 mg/3 Branch mL) injection liraglutide 2023-0 Yes [id number] .6mg inject 0.6 Univers (VICTOZA 2-01 mg under ity of 3-PEPE) 0.6 12:56: the skin. [place] mg/0.1 mL 04 Medical (18 mg/3 Branch mL) injection liraglutide 2023-0 Yes [id number] .6mg inject 0.6 Univers (VICTOZA 2-01 mg under ity of 3-PEPE) 0.6 12:56: the skin. [place] mg/0.1 mL 04 Medical (18 mg/3 Branch mL) injection liraglutide 2023-0 Yes [id number] .6mg inject 0.6 Univers (VICTOZA 2-01 mg under ity of 3-PEPE) 0.6 12:56: the skin. [place] mg/0.1 mL 04 Medical (18 mg/3 Branch mL) injection liraglutide 2023-0 Yes [id number] .6mg inject 0.6 Univers (VICTOZA 2-01 mg under ity of 3-PEPE) 0.6 12:56: the skin. [place] mg/0.1 mL 04 Medical (18 mg/3 Branch mL) injection liraglutide 2023-0 Yes [id number] .6mg inject 0.6 Univers (VICTOZA 2-01 mg under ity of 3-PEPE) 0.6 12:56: the skin. [place] mg/0.1 mL 04 Medical (18 mg/3 Branch mL) injection liraglutide 2023-0 Yes [id number] .6mg inject 0.6 Univers (VICTOZA 2-01 mg under ity of 3-PEPE) 0.6 12:56: the skin. [place] mg/0.1 mL 04 Medical (18 mg/3 Branch mL) injection liraglutide 3-0 Yes [id number] .6mg inject 0.6 Univers (VICTOZA 2-01 mg under ity of 3-PEPE) 0.6 12:56: the skin. [place] mg/0.1 mL 04 Medical (18 mg/3 Branch mL) injection liraglutide 3-0 Yes [id number] .6mg inject 0.6 Univers (VICTOZA 2-01 mg under ity of 3-PEPE) 0.6 12:56: the skin. [place] mg/0.1 mL 04 Medical (18 mg/3 Branch mL) injection liraglutide 2022-0 Yes [id number] .6mg inject 0.6 Univers (VICTOZA 2-01 mg under ity of 3-PEPE) 0.6 12:56: the skin. [place] mg/0.1 mL 04 Medical (18 mg/3 Branch mL) injection ALPRAZolam 0 Yes 2mg Take 2 mg [place] 2 mg tablet 1-06 by mouth 3 it y of 14:34: (three) [place] 59 times Medical daily as Branch needed for Sleep. INSULIN 0 Yes 80U inject 80 Unive rs DEGLUDEC 1-06 Units ity of (TRESIBA 14:34: [place] the [place] FLEXTOU[place] 59 skin every Medi antione U-100 SC) morning. Branch pantoprazol 0 Yes 20mg Take 20 mg Univers e 20 mg EC 1-06 by mouth ity o f tablet 14:34: daily. [place] 59 Medical Branch insulin 0 Yes inject Univers aspart 1-06 under the ity of prot/insuln 14:34: skin. [place] asp 59 Medical (NOVOLOG Branch MIX 70-30 SC) cloNIDine 2022-0 Yes .2mg Take 0.2 Univ ers 0.2 mg 1-06 mg by ity of tablet 14:34: mouth 3 [place] 59 (three) Medical times Branch daily. metoprolol 3-0 Yes 50mg Take 50 mg U nivers succinate 1-06 by mouth 2 ity of XL 50 mg 24 14:34: (two) [place] hr tablet 59 times Medical daily. Branch QUEtiapine 2022-0 Yes 800mg Take 800 Un [place] 400 mg 1-06 mg by ity of tablet 14:34: mouth at [place] 59 bedtime. Medical Branch ALPRAZolam 2022-0 Yes 2mg Take 2 mg Un [place] 2 mg tablet 1-06 by mouth 3 it y of 14:34: (three) [place] 59 times Medical daily as Branch needed for Sleep. INSULIN 2022-0 Yes 80U inject 80 Unive rs DEGLUDEC 1-06 Units ity of (TRESIBA 14:34: under the [place] FLEXT[place] 59 skin every Medi antione U-100 SC) morning. Branch pantoprazol 2022-0 Yes 20mg Take 20 mg Univers e 20 mg EC 1-06 by mouth ity o f tablet 14:34: daily. [place] 59 Medical Branch insulin 2022-0 Yes inject Univers aspart 1-06 under the ity of prot/insuln 14:34: skin. [place] asp 59 Medical (NOVOLOG Branch MIX 70-30 SC) cloNIDine 2022-0 Yes .2mg Take 0.2 Univ ers 0.2 mg 1-06 mg by ity of tablet 14:34: mouth 3 [place] 59 (three) Medical times Branch daily. metoprolol 3-0 Yes 50mg Take 50 mg U nivers succinate 1-06 by mouth 2 ity of XL 50 mg 24 14:34: (two) [place] hr tablet 59 times Medical daily. Branch QUEtiapine 2022-0 Yes 800mg Take 800 Un [place] 400 mg 1-06 mg by ity of tablet 14:34: mouth at [place] 59 bedtime. Medical Branch ALPRAZolam 2022-0 Yes 2mg Take 2 mg Un [place] 2 mg tablet 1-06 by mouth 3 it y of 14:34: (three) [place] 59 times Medical daily as Branch needed for Sleep. INSULIN 2022-0 Yes 80U inject 80 Unive rs DEGLUDEC 1-06 Units ity of (TRESIBA 14:34: [facility] skin every Medi antione U-100 SC) morning. Branch pantoprazol 0 Yes 20mg Take 20 mg Univers e 20 mg EC 1-06 by mouth ity o f tablet 14:34: daily. [place] [address] Medical Branch insulin 2022-0 Yes inject Univers aspart 1-06 under the ity of prot/insuln 14:34: skin. [place] asp 59 Medical (NOVOLOG Branch MIX 70-30 SC) cloNIDine 2022-0 Yes .2mg Take 0.2 Univ ers 0.2 mg 1-06 mg by ity of tablet 14:34: mouth 3 [place] [address] (three) Medical times Branch daily. metoprolol 2022-0 Yes 50mg Take 50 mg U nivers succinate 1-06 by mouth 2 ity of XL 50 mg 24 14:34: (two) [place] hr tablet 59 times Medical daily. Branch QUEtiapine 2022-0 Yes 800mg Take 800 Un [place] 400 mg 1-06 mg by ity of tablet 14:34: mouth at [place] [address] bedtime. Medical Branch ALPRAZolam 2022-0 Yes 2mg Take 2 mg Un [place] 2 mg tablet 1-06 by mouth 3 it y of 14:34: (three) [place] [address] times Medical daily as Branch needed for Sleep. INSULIN 2022-0 Yes 80U inject 80 Unive rs DEGLUDEC 1-06 Units ity of (TRESIBA 14:34: under the [place] [facility] FLEXTOUCH 59 skin every Medi antione U-100 SC) morning. Branch pantoprazol 2022-0 Yes 20mg Take 20 mg Univers e 20 mg EC 1-06 by mouth ity o f tablet 14:34: daily. [place] 59 Medical Branch insulin 2022-0 Yes inject Univers aspart 1-06 under the ity of prot/insuln 14:34: skin. [place] asp 59 Medical (NOVOLOG Branch MIX 70-30 SC) cloNIDine 2022-0 Yes .2mg Take 0.2 Univ ers 0.2 mg 1-06 mg by ity of tablet 14:34: mouth 3 [place] 59 (three) Medical times Branch daily. metoprolol 3-0 Yes 50mg Take 50 mg U nivers succinate 1-06 by mouth 2 ity of XL 50 mg 24 14:34: (two) [place] hr tablet 59 times Medical daily. Branch QUEtiapine 2022-0 Yes 800mg Take 800 Un [place] 400 mg 1-06 mg by ity of tablet 14:34: mouth at [place] 59 bedtime. Medical Branch ALPRAZolam 2022-0 Yes 2mg Take 2 mg Un [place] 2 mg tablet 1-06 by mouth 3 it y of 14:34: (three) [place] 59 times Medical daily as Branch needed for Sleep. INSULIN 2022-0 Yes 80U inject 80 Unive rs DEGLUDEC 1-06 Units ity of (TRESIBA 14:34: under the [place] FLE[place] 59 skin every Medi antione U-100 SC) morning. Branch pantoprazol 2022-0 Yes 20mg Take 20 mg Univers e 20 mg EC 1-06 by mouth ity o f tablet 14:34: daily. [place] 59 Medical Branch insulin 2022-0 Yes inject Univers aspart 1-06 under the ity of prot/insuln 14:34: skin. [place] asp 59 Medical (NOVOLOG Branch MIX 70-30 SC) cloNIDine 2022-0 Yes .2mg Take 0.2 Univ ers 0.2 mg 1-06 mg by ity of tablet 14:34: mouth 3 [place] 59 (three) Medical times Branch daily. metoprolol 2022-0 Yes 50mg Take 50 mg U nivers succinate 1-06 by mouth 2 ity of XL 50 mg 24 14:34: (two) [place] hr tablet 59 times Medical daily. Branch QUEtiapine 2022-0 Yes 800mg Take 800 Un [place] 400 mg 1-06 mg by ity of tablet 14:34: mouth at [place] 59 bedtime. Medical Branch ALPRAZolam 2022-0 Yes 2mg Take 2 mg [place] 2 mg tablet 1-06 by mouth 3 it y of 14:34: (three) [place] 59 times Medical daily as Branch needed for Sleep. INSULIN 2022-0 Yes 80U inject 80 Unive rs DEGLUDEC 1-06 Units ity of (TRESIBA 14:34: under the [place] FLE[place] 59 skin every Medi antione U-100 SC) morning. Branch pantoprazol 3-0 Yes 20mg Take 20 mg Univers e 20 mg EC 1-06 by mouth ity o f tablet 14:34: daily. [place] [address] Medical Branch insulin 2022-0 Yes inject Univers aspart 1-06 under the ity of prot/insuln 14:34: skin. [place] asp 59 Medical (NOVOLOG Branch MIX 70-30 SC) cloNIDine 2022-0 Yes .2mg Take 0.2 Univ ers 0.2 mg 1-06 mg by ity of tablet 14:34: mouth 3 [place] [address] (three) Medical times Branch daily. metoprolol 2022-0 Yes 50mg Take 50 mg U nivers succinate 1-06 by mouth 2 ity of XL 50 mg 24 14:34: (two) [place] hr tablet 59 times Medical daily. Branch QUEtiapine 2022-0 Yes 800mg Take 800 Un [place] 400 mg 1-06 mg by ity of tablet 14:34: mouth at [place] [address] bedtime. Medical Branch ALPRAZolam 2022-0 Yes 2mg Take 2 mg Un [place] 2 mg tablet 1-06 by mouth 3 it y of 14:34: (three) [place] [address] times Medical daily as Branch needed for Sleep. INSULIN 2022-0 Yes 80U inject 80 Unive rs DEGLUDEC 1-06 Units ity of (TRESIBA 14:34: under the [facility] s FLEXTOUCH 59 skin every Medi antione U-100 SC) morning. Branch pantoprazol 2022-0 Yes 20mg Take 20 mg Univers e 20 mg EC 1-06 by mouth ity o f tablet 14:34: daily. [place] [address] Medical Branch insulin 2022-0 Yes inject Univers aspart 1-06 under the ity of prot/insuln 14:34: skin. [place] asp 59 Medical (NOVOLOG Branch MIX 70-30 SC) cloNIDine 2022-0 Yes .2mg Take 0.2 Univ ers 0.2 mg 1-06 mg by ity of tablet 14:34: mouth 3 [place] [address] (three) Medical times Branch daily. metoprolol 2022-0 Yes 50mg Take 50 mg U nivers succinate 1-06 by mouth 2 ity of XL 50 mg 24 14:34: (two) [place] hr tablet 59 times Medical daily. Branch QUEtiapine 2022-0 Yes 800mg Take 800 Un [place] 400 mg 1-06 mg by ity of tablet 14:34: mouth at [place] [address] bedtime. Medical Branch ALPRAZolam 2022-0 Yes 2mg Take 2 mg Un [place] 2 mg tablet 1-06 by mouth 3 it y of 14:34: (three) [place] 59 times Medical daily as Branch needed for Sleep. INSULIN 2022-0 Yes 80U inject 80 Unive rs DEGLUDEC 1-06 Units ity of (TRESIBA 14:34: [place] the [place]LE[place] 59 skin every Medi antione U-100 SC) morning. Branch pantoprazol 2022-0 Yes 20mg Take 20 mg Univers e 20 mg EC 1-06 by mouth ity o f tablet 14:34: daily. [place] [address] Medical Branch insulin 2022-0 Yes inject Univers aspart 1-06 under the ity of prot/insuln 14:34: skin. [place] asp 59 Medical (NOVOLOG Branch MIX 70-30 SC) cloNIDine 2022-0 Yes .2mg Take 0.2 Univ ers 0.2 mg 1-06 mg by ity of tablet 14:34: mouth 3 [place] [address] (three) Medical times Branch daily. metoprolol 2022-0 Yes 50mg Take 50 mg U nivers succinate 1-06 by mouth 2 ity of XL 50 mg 24 14:34: (two) [place] hr tablet 59 times Medical daily. Branch QUEtiapine 2022-0 Yes 800mg Take 800 Un [place] 400 mg 1-06 mg by ity of tablet 14:34: mouth at [place] [address] bedtime. Medical Branch ALPRAZolam 2022-0 Yes 2mg Take 2 mg Un [place] 2 mg tablet 1-06 by mouth 3 it y of 14:34: (three) [place] 59 times Medical daily as Branch needed for Sleep. INSULIN 2022-0 Yes 80U inject 80 Unive rs DEGLUDEC 1-06 Units ity of (TRESIBA 14:34: [place] skin every Medi antione U-100 SC) morning. Branch pantoprazol 2022-0 Yes 20mg Take 20 mg [facility] e 20 mg EC 1-06 by mouth ity o f tablet 14:34: daily. [place] [address] Medical Branch insulin 2022-0 Yes inject [facility] aspart 1-06 under the ity of prot/insuln 14:34: skin. [place] asp 59 Medical (NOVOLOG Branch MIX 70-30 SC) cloNIDine 2023-0 Yes .2mg Take 0.2 Univ ers 0.2 mg 1-06 mg by ity of tablet 14:34: mouth 3 [place] 59 (three) Medical times Branch daily. metoprolol 3-0 Yes 50mg Take 50 mg U nivers succinate 1-06 by mouth 2 ity of XL 50 mg 24 14:34: (two) [place] hr tablet 59 times Medical daily. Branch QUEtiapine 2022-0 Yes 800mg Take 800 Un [place] 400 mg 1-06 mg by ity of tablet 14:34: mouth at [place] 59 bedtime. Medical Branch ALPRAZolam 2022-0 Yes 2mg Take 2 mg [facility] [place] 2 mg tablet 1-06 by mouth 3 it y of 14:34: (three) [place] 59 times Medical daily as Branch needed for Sleep. INSULIN 2022-0 Yes 80U inject 80 Unive rs DEGLUDEC 1-06 Units ity of (TRESIBA 14:34: under the [facility] s FLEXTOUCH 59 skin every Medi antione U-100 SC) morning. Branch pantoprazol 2022-0 Yes 20mg Take 20 mg [facility] e 20 mg EC 1-06 by mouth ity o f tablet 14:34: daily. [place] 59 Medical Branch insulin 2022-0 Yes inject [facility] aspart 1-06 under the ity of prot/insuln 14:34: skin. [place] asp 59 Medical (NOVOLOG Branch MIX 70-30 SC) cloNIDine 2022-0 Yes .2mg Take 0.2 Univ ers 0.2 mg 1-06 mg by ity of tablet 14:34: mouth 3 [place] 59 (three) Medical times Branch daily. metoprolol 2022-0 Yes 50mg Take 50 mg U nivers succinate 1-06 by mouth 2 ity of XL 50 mg 24 14:34: (two) [place] hr tablet 59 times Medical daily. Branch QUEtiapine 2022-0 Yes 800mg Take 800 Un [place] 400 mg 1-06 mg by ity of tablet 14:34: mouth at [place] 59 bedtime. Medical Branch ALPRAZolam 2022-0 Yes 2mg Take 2 mg [facility] [place] 2 mg tablet 1-06 by mouth 3 it y of 14:34: (three) [place] 59 times Medical daily as Branch needed for Sleep. INSULIN 2022-0 Yes 80U inject 80 Unive rs DEGLUDEC 1-06 Units ity of (TRESIBA 14:34: [place] skin every Medi antione U-100 SC) morning. Branch pantoprazol 2022-0 Yes 20mg Take 20 mg [facility] e 20 mg EC 1-06 by mouth ity o f tablet 14:34: daily. [place] [address] Medical Branch insulin 2022-0 Yes inject [facility] aspart 1-06 under the ity of prot/insuln 14:34: skin. [place] asp 59 Medical (NOVOLOG Branch MIX 70-30 SC) cloNIDine 2022-0 Yes .2mg Take 0.2 Univ ers 0.2 mg 1-06 mg by ity of tablet 14:34: mouth 3 [place] [address] (three) Medical times Branch daily. metoprolol 2022-0 Yes 50mg Take 50 mg U nivers succinate 1-06 by mouth 2 ity of XL 50 mg 24 14:34: (two) [place] hr tablet 59 times Medical daily. Branch QUEtiapine 2022-0 Yes 800mg Take 800 [place] 400 mg 1-06 mg by ity of tablet 14:34: mouth at [place] [address] bedtime. Medical Branch ALPRAZolam 0 Yes 2mg Take 2 mg [facility] [place] 2 mg tablet 1-06 by mouth 3 it y of 14:34: (three) [place] [address] times Medical daily as Branch needed for Sleep. INSULIN 2022-0 Yes 80U inject 80 Unive rs DEGLUDEC 1-06 Units ity of (TRESIBA 14:34: [place] skin every Medi antione U-100 SC) morning. Branch pantoprazol 2022-0 Yes 20mg Take 20 mg [facility] e 20 mg EC 1-06 by mouth ity o f tablet 14:34: daily. [place] [address] Medical Branch insulin 2022-0 Yes inject [facility] aspart 1-06 under the ity of prot/insuln 14:34: skin. [place] asp 59 Medical (NOVOLOG Branch MIX 70-30 SC) cloNIDine 2022-0 Yes .2mg Take 0.2 Univ ers 0.2 mg 1-06 mg by ity of tablet 14:34: mouth 3 [place] [address] (three) Medical times Branch daily. metoprolol 3-0 Yes 50mg Take 50 mg U nivers succinate 1-06 by mouth 2 ity of XL 50 mg 24 14:34: (two) [place] hr tablet 59 times Medical daily. Branch QUEtiapine 2022-0 Yes 800mg Take 800 Un [place] 400 mg 1-06 mg by ity of tablet 14:34: mouth at [place] 59 bedtime. Medical Branch ALPRAZolam 2022-0 Yes 2mg Take 2 mg [facility] [place] 2 mg tablet 1-06 by mouth 3 it y of 14:34: (three) [place] 59 times Medical daily as Branch needed for Sleep. INSULIN 2022-0 Yes 80U inject 80 Unive rs DEGLUDEC 1-06 Units ity of (TRESIBA 14:34: under the [place] skin every Medi antione U-100 SC) morning. Branch pantoprazol 2022-0 Yes 20mg Take 20 mg [facility] e 20 mg EC 1-06 by mouth ity o f tablet 14:34: daily. [place] [address] Medical Branch insulin 2022-0 Yes inject [facility] aspart 1-06 under the ity of prot/insuln 14:34: skin. [facility] 59 Medical (NOVOLOG Branch MIX 70-30 SC) cloNIDine 2022-0 Yes .2mg Take 0.2 Univ ers 0.2 mg 1-06 mg by ity of tablet 14:34: mouth 3 [place] 59 (three) Medical times Branch daily. metoprolol 2022-0 Yes 50mg Take 50 mg U nivers succinate 1-06 by mouth 2 ity of XL 50 mg 24 14:34: (two) [place] hr tablet 59 times Medical daily. Branch QUEtiapine 2022-0 Yes 800mg Take 800 [place] 400 mg 1-06 mg by ity of tablet 14:34: mouth at [place] 59 bedtime. Medical Branch ALPRAZolam 2022-0 Yes 2mg Take 2 mg [place] 2 mg tablet 1-06 by mouth 3 it y of 14:34: (three) [place] 59 times Medical daily as Branch needed for Sleep. INSULIN 2022-0 Yes 80U inject 80 Unive rs DEGLUDEC 1-06 Units ity of (TRESIBA 14:34: [place] the [place] 59 skin every Medi antione U-100 SC) morning. Branch pantoprazol 2022-0 Yes 20mg Take 20 mg [facility] e 20 mg EC 1-06 by mouth ity o f tablet 14:34: daily. [place] 59 Medical Branch insulin 2023-0 Yes inject [facility] aspart 1-06 under the ity of prot/insuln 14:34: skin. [place] asp 59 Medical (NOVOLOG Branch MIX 70-30 SC) cloNIDine 2022-0 Yes .2mg Take 0.2 Univ ers 0.2 mg 1-06 mg by ity of tablet 14:34: mouth 3 [place] 59 (three) Medical times Branch daily. metoprolol 3-0 Yes 50mg Take 50 mg U nivers succinate 1-06 by mouth 2 ity of XL 50 mg 24 14:34: (two) [place] hr tablet 59 times Medical daily. Branch QUEtiapine 2022-0 Yes 800mg Take 800 [place] 400 mg 1-06 mg by ity of tablet 14:34: mouth at [place] 59 bedtime. Medical Branch ALPRAZolam 2022-0 Yes 2mg Take 2 mg [place] 2 mg tablet 1-06 by mouth 3 it y of 14:34: (three) [place] 59 times Medical daily as Branch needed for Sleep. INSULIN 2022-0 Yes 80U inject 80 Unive rs DEGLUDEC 1-06 Units ity of (TRESIBA 14:34: under the [place] 59 skin every Medi antione U-100 SC) morning. Branch pantoprazol 2022-0 Yes 20mg Take 20 mg [facility] e 20 mg EC 1-06 by mouth ity o f tablet 14:34: daily. [place] 59 Medical Branch insulin 2022-0 Yes inject [facility] aspart 1-06 under the ity of prot/insuln 14:34: skin. [place] asp 59 Medical (NOVOLOG Branch MIX 70-30 SC) cloNIDine 2022-0 Yes .2mg Take 0.2 Univ ers 0.2 mg 1-06 mg by ity of tablet 14:34: mouth 3 [place] 59 (three) Medical times Branch daily. metoprolol 3-0 Yes 50mg Take 50 mg U nivers succinate 1-06 by mouth 2 ity of XL 50 mg 24 14:34: (two) [place] hr tablet 59 times Medical daily. Branch QUEtiapine 2022-0 Yes 800mg Take 800 [place] 400 mg 1-06 mg by ity of tablet 14:34: mouth at [place] 59 bedtime. Medical Branch ALPRAZolam 2022-0 Yes 2mg Take 2 mg [facility] [place] 2 mg tablet 1-06 by mouth 3 it y of 14:34: (three) [place] 59 times Medical daily as Branch needed for Sleep. INSULIN 0 Yes 80U inject 80 Unive rs DEGLUDEC 1-06 Units ity of (TRESIBA 14:34: under the [place] 59 skin every Medi antione U-100 SC) morning. Branch pantoprazol 0 Yes 20mg Take 20 mg [facility] e 20 mg EC 1-06 by mouth ity o f tablet 14:34: daily. [place] 59 Medical Branch insulin 0 Yes inject [facility] aspart 1-06 under the ity of prot/insuln 14:34: skin. [place] asp 59 Medical (NOVOLOG Branch MIX 70-30 SC) cloNIDine 0 Yes .2mg Take 0.2 Univ ers 0.2 mg 1-06 mg by ity of tablet 14:34: mouth 3 [place] 59 (three) Medical times Branch daily. metoprolol 0 Yes 50mg Take 50 mg U nivers succinate 1-06 by mouth 2 ity of XL 50 mg 24 14:34: (two) [place] hr tablet 59 times Medical daily. Branch QUEtiapine 0 Yes 800mg Take 800 Un [place] 400 mg 1-06 mg by ity of tablet 14:34: mouth at [place] 59 bedtime. Medical Branch liraglutide 0 Yes [id number] .6mg inject 0.6 Univers (VICTOZA 1-06 mg under ity of 3-PEPE) 0.6 14:34: the skin. [place] mg/0.1 mL 59 Medical (18 mg/3 Branch mL) injection ALPRAZolam 0 Yes 2mg Take 2 mg Un [place] 2 mg tablet 1-06 by mouth 3 it y of 14:34: (three) [place] 59 times Medical daily as Branch needed for Sleep. INSULIN 0 Yes 80U inject 80 Unive rs DEGLUDEC 1-06 Units ity of (TRESIBA 14:34: [facility] skin every Medi antione U-100 SC) morning. Branch pantoprazol 0 Yes 20mg Take 20 mg Univers e 20 mg EC 1-06 by mouth ity o f tablet 14:34: daily. [place] 59 Medical Branch insulin 0 Yes inject [facility] aspart 1-06 under the ity of prot/insuln 14:34: skin. [place] asp 59 Medical (NOVOLOG Branch MIX 70-30 SC) cloNIDine 2022-0 Yes .2mg Take 0.2 Univ ers 0.2 mg 1-06 mg by ity of tablet 14:34: mouth 3 [place] 59 (three) Medical times Branch daily. metoprolol 2022-0 Yes 50mg Take 50 mg U nivers succinate 1-06 by mouth 2 ity of XL 50 mg 24 14:34: (two) [place] hr tablet 59 times Medical daily. Branch QUEtiapine 2022-0 Yes 800mg Take 800 Un [place] 400 mg 1-06 mg by ity of tablet 14:34: mouth at [place] [address] bedtime. Medical Branch liraglutide 2022-0 Yes [id number] .6mg inject 0.6 Univers (VICTOZA 1-06 mg under ity of 3-PEPE) 0.6 14:34: the skin. [place] mg/0.1 mL 59 Medical (18 mg/3 Branch mL) injection ALPRAZolam 2022-0 Yes 2mg Take 2 mg Un [place] 2 mg tablet 1-06 by mouth 3 it y of 14:34: (three) [place] [address] times Medical daily as Branch needed for Sleep. INSULIN 2022-0 Yes 80U inject 80 Unive rs DEGLUDEC 1-06 Units ity of (TRESIBA 14:34: under the [facility] s FLEXTOUCH 59 skin every Medi antione U-100 SC) morning. Branch pantoprazol 0 Yes 20mg Take 20 mg Univers e 20 mg EC 1-06 by mouth ity o f tablet 14:34: daily. [place] [address] Medical Branch insulin 2022-0 Yes inject [facility] aspart 1-06 under the ity of prot/insuln 14:34: skin. [place] asp 59 Medical (NOVOLOG Branch MIX 70-30 SC) cloNIDine 2022-0 Yes .2mg Take 0.2 Univ ers 0.2 mg 1-06 mg by ity of tablet 14:34: mouth 3 [place] 59 (three) Medical times Branch daily. metoprolol 2022-0 Yes 50mg Take 50 mg U nivers succinate 1-06 by mouth 2 ity of XL 50 mg 24 14:34: (two) [place] hr tablet 59 times Medical daily. Branch QUEtiapine 2022-0 Yes 800mg Take 800 [place] 400 mg 1-06 mg by ity of tablet 14:34: mouth at [place] 59 bedtime. Medical Branch liraglutide 0 Yes [id number] .6mg inject 0.6 Univers (VICTOZA 1-06 mg under ity of 3-PEPE) 0.6 14:34: the skin. [place] mg/0.1 mL 59 Medical (18 mg/3 Branch mL) injection ALPRAZolam 2022-0 Yes 2mg Take 2 mg Un [place] 2 mg tablet 1-06 by mouth 3 it y of 14:34: (three) [place] 59 times Medical daily as Branch needed for Sleep. INSULIN 2022-0 Yes 80U inject 80 Unive rs DEGLUDEC 1-06 Units ity of (TRESIBA 14:34: [place] the [place] 59 skin every Medi antione U-100 SC) morning. Branch pantoprazol 0 Yes 20mg Take 20 mg Univers e 20 mg EC 1-06 by mouth ity o f tablet 14:34: daily. [place] 59 Medical Branch insulin 0 Yes inject [facility] aspart 1-06 under the ity of prot/insuln 14:34: skin. [place] asp 59 Medical (NOVOLOG Branch MIX 70-30 SC) cloNIDine 0 Yes .2mg Take 0.2 Univ ers 0.2 mg 1-06 mg by ity of tablet 14:34: mouth 3 [place] 59 (three) Medical times Branch daily. metoprolol 0 Yes 50mg Take 50 mg U nivers succinate 1-06 by mouth 2 ity of XL 50 mg 24 14:34: (two) [place] hr tablet 59 times Medical daily. Branch QUEtiapine 0 Yes 800mg Take 800 Un [place] 400 mg 1-06 mg by ity of tablet 14:34: mouth at [place] 59 bedtime. Medical Branch ALPRAZolam 0 Yes 2mg Take 2 mg [place] 2 mg tablet 1-06 by mouth 3 it y of 14:34: (three) [place] 59 times Medical daily as Branch needed for Sleep. INSULIN 2022-0 Yes 80U inject 80 Unive rs DEGLUDEC 1-06 Units ity of (TRESIBA 14:34: under the [place] 59 skin every Medi antione U-100 SC) morning. Branch pantoprazol 2022-0 Yes 20mg Take 20 mg Univers e 20 mg EC 1-06 by mouth ity o f tablet 14:34: daily. [place] [address] Medical Branch insulin 3-0 Yes inject [facility] aspart 1-06 under the ity of prot/insuln 14:34: skin. [place] asp 59 Medical (NOVOLOG Branch MIX 70-30 SC) cloNIDine 3-0 Yes .2mg Take 0.2 Univ ers 0.2 mg 1-06 mg by ity of tablet 14:34: mouth 3 [place] [address] (three) Medical times Branch daily. metoprolol 2023-0 Yes 50mg Take 50 mg U nivers succinate 1-06 by mouth 2 ity of XL 50 mg 24 14:34: (two) [place] hr tablet 59 times Medical daily. Branch QUEtiapine 2022-0 Yes 800mg Take 800 Un [place] 400 mg 1-06 mg by ity of tablet 14:34: mouth at [place] [address] bedtime. Medical Branch ALPRAZolam 2022-0 Yes 2mg Take 2 mg [place] 2 mg tablet 1-06 by mouth 3 it y of 14:34: (three) [place] [address] times Medical daily as Branch needed for Sleep. INSULIN 2022-0 Yes 80U inject 80 Unive rs DEGLUDEC 1-06 Units ity of (TRESIBA 14:34: under the [facility] s FLEXTOUCH 59 skin every Medi antione U-100 SC) morning. Branch pantoprazol 2022-0 Yes 20mg Take 20 mg Univers e 20 mg EC 1-06 by mouth ity o f tablet 14:34: daily. [place] [address] Medical Branch insulin 3-0 Yes inject [facility] aspart 1-06 under the ity of prot/insuln 14:34: skin. [place] asp 59 Medical (NOVOLOG Branch MIX 70-30 SC) cloNIDine 3-0 Yes .2mg Take 0.2 Univ ers 0.2 mg 1-06 mg by ity of tablet 14:34: mouth 3 [place] [address] (three) Medical times Branch daily. metoprolol 2023-0 Yes 50mg Take 50 mg U nivers succinate 1-06 by mouth 2 ity of XL 50 mg 24 14:34: (two) [place] hr tablet 59 times Medical daily. Branch QUEtiapine 2023-0 Yes 800mg Take 800 Un [place] 400 mg 1-06 mg by ity of tablet 14:34: mouth at [place] [address] bedtime. Medical Branch ALPRAZolam 2022-0 Yes 2mg Take 2 mg [place] 2 mg tablet 1-06 by mouth 3 it y of 14:34: (three) [place] 59 times Medical daily as Branch needed for Sleep. INSULIN 2022-0 Yes 80U inject 80 Unive rs DEGLUDEC 1-06 Units ity of (TRESIBA 14:34: under the [place] 59 skin every Medi antione U-100 SC) morning. Branch pantoprazol 2022-0 Yes 20mg Take 20 mg [facility] e 20 mg EC 1-06 by mouth ity o f tablet 14:34: daily. [place] [address] Medical Branch insulin 2022-0 Yes inject [facility] aspart 1-06 under the ity of prot/insuln 14:34: skin. [place] asp 59 Medical (NOVOLOG Branch MIX 70-30 SC) cloNIDine 2022-0 Yes .2mg Take 0.2 Univ ers 0.2 mg 1-06 mg by ity of tablet 14:34: mouth 3 [place] [address] (three) Medical times Branch daily. metoprolol 2022-0 Yes 50mg Take 50 mg U nivers succinate 1-06 by mouth 2 ity of XL 50 mg 24 14:34: (two) [facility] tablet 59 times Medical daily. Branch QUEtiapine 2022-0 Yes 800mg Take 800 Un [place] 400 mg 1-06 mg by ity of tablet 14:34: mouth at [place] [address] bedtime. Medical Branch ALPRAZolam 2022-0 Yes 2mg Take 2 mg [place] 2 mg tablet 1-06 by mouth 3 it y of 14:34: (three) [place] [address] times Medical daily as Branch needed for Sleep. INSULIN 2022-0 Yes 80U inject 80 Unive rs DEGLUDEC 1-06 Units ity of (TRESIBA 14:34: [place] the [place] 59 skin every Medi antione U-100 SC) morning. Branch pantoprazol 2022-0 Yes 20mg Take 20 mg Univers e 20 mg EC 1-06 by mouth ity o f tablet 14:34: daily. [place] [address] Medical Branch insulin 2022-0 Yes inject [facility] aspart 1-06 under the ity of prot/insuln 14:34: skin. [place] asp 59 Medical (NOVOLOG Branch MIX 70-30 SC) cloNIDine 2022-0 Yes .2mg Take 0.2 Univ ers 0.2 mg 1-06 mg by ity of tablet 14:34: mouth 3 [place] 59 (three) Medical times Branch daily. metoprolol 2022-0 Yes 50mg Take 50 mg U nivers succinate 1-06 by mouth 2 ity of XL 50 mg 24 14:34: (two) [place] hr tablet 59 times Medical daily. Branch QUEtiapine 2022-0 Yes 800mg Take 800 [place] 400 mg 1-06 mg by ity of tablet 14:34: mouth at [place] 59 bedtime. Medical Branch ALPRAZolam 0 Yes 2mg Take 2 mg [place] 2 mg tablet 1-06 by mouth 3 it y of 14:34: (three) [place] 59 times Medical daily as Branch needed for Sleep. INSULIN 2022-0 Yes 80U inject 80 Unive rs DEGLUDEC 1-06 Units ity of (TRESIBA 14:34: under the [facility] s FLEXTOUCH 59 skin every Medi antione U-100 SC) morning. Branch pantoprazol 0 Yes 20mg Take 20 mg [facility] e 20 mg EC 1-06 by mouth ity o f tablet 14:34: daily. [place] 59 Medical Branch insulin 0 Yes inject [facility] aspart 1-06 under the ity of prot/insuln 14:34: skin. [place] asp 59 Medical (NOVOLOG Branch MIX 70-30 SC) cloNIDine 2022-0 Yes .2mg Take 0.2 Univ ers 0.2 mg 1-06 mg by ity of tablet 14:34: mouth 3 [place] 59 (three) Medical times Branch daily. metoprolol 2022-0 Yes 50mg Take 50 mg U nivers succinate 1-06 by mouth 2 ity of XL 50 mg 24 14:34: (two) [place] hr tablet 59 times Medical daily. Branch QUEtiapine 2022-0 Yes 800mg Take 800 Un [place] 400 mg 1-06 mg by ity of tablet 14:34: mouth at [place] 59 bedtime. Medical Branch ALPRAZolam 0 Yes 2mg Take 2 mg [place] 2 mg tablet 1-06 by mouth 3 it y of 14:34: (three) [place] 59 times Medical daily as Branch needed for Sleep. INSULIN 2022-0 Yes 80U inject 80 Unive rs DEGLUDEC 1-06 Units ity of (TRESIBA 14:34: [place] the [place] 59 skin every Medi antione U-100 SC) morning. Branch pantoprazol 2022-0 Yes 20mg Take 20 mg Univers e 20 mg EC 1-06 by mouth ity o f tablet 14:34: daily. [place] [address] Medical Branch insulin 2022-0 Yes inject [facility] aspart 1-06 under the ity of prot/insuln 14:34: skin. [place] asp 59 Medical (NOVOLOG Branch MIX 70-30 SC) cloNIDine 2022-0 Yes .2mg Take 0.2 Univ ers 0.2 mg 1-06 mg by ity of tablet 14:34: mouth 3 [place] [address] (three) Medical times Branch daily. metoprolol 2022-0 Yes 50mg Take 50 mg U nivers succinate 1-06 by mouth 2 ity of XL 50 mg 24 14:34: (two) [facility] tablet 59 times Medical daily. Branch QUEtiapine 2022-0 Yes 800mg Take 800 [place] 400 mg 1-06 mg by ity of tablet 14:34: mouth at [place] [address] bedtime. Medical Branch ALPRAZolam 2022-0 Yes 2mg Take 2 mg [place] 2 mg tablet 1-06 by mouth 3 it y of 14:34: (three) [place] [address] times Medical daily as Branch needed for Sleep. INSULIN 2022-0 Yes 80U inject 80 Unive rs DEGLUDEC 1-06 Units ity of (TRESIBA 14:34: [place] the [place] skin every Medi antione U-100 SC) morning. Branch pantoprazol 2022-0 Yes 20mg Take 20 mg [facility] e 20 mg EC 1-06 by mouth ity o f tablet 14:34: daily. [place] [address] Medical Branch insulin 2022-0 Yes inject [facility] aspart 1-06 under the ity of prot/insuln 14:34: skin. [place] asp 59 Medical (NOVOLOG Branch MIX 70-30 SC) cloNIDine 2022-0 Yes .2mg Take 0.2 Univ ers 0.2 mg 1-06 mg by ity of tablet 14:34: mouth 3 [place] 59 (three) Medical times Branch daily. metoprolol 3-0 Yes 50mg Take 50 mg U nivers succinate 1-06 by mouth 2 ity of XL 50 mg 24 14:34: (two) [place] hr tablet 59 times Medical daily. Branch QUEtiapine 2022-0 Yes 800mg Take 800 [place] 400 mg 1-06 mg by ity of tablet 14:34: mouth at [place] 59 bedtime. Medical Branch ALPRAZolam 2022-0 Yes 2mg Take 2 mg [place] 2 mg tablet 1-06 by mouth 3 it y of 14:34: (three) [place] 59 times Medical daily as Branch needed for Sleep. INSULIN 2022-0 Yes 80U inject 80 Unive rs DEGLUDEC 1-06 Units ity of (TRESIBA 14:34: under the [place] 59 skin every Medi antione U-100 SC) morning. Branch pantoprazol 2022-0 Yes 20mg Take 20 mg Univers e 20 mg EC 1-06 by mouth ity o f tablet 14:34: daily. [place] [address] Medical Branch insulin 2022-0 Yes inject [facility] aspart 1-06 under the ity of prot/insuln 14:34: skin. [facility] 59 Medical (NOVOLOG Branch MIX 70-30 SC) cloNIDine 2022-0 Yes .2mg Take 0.2 Univ ers 0.2 mg 1-06 mg by ity of tablet 14:34: mouth 3 [place] 59 (three) Medical times Branch daily. metoprolol 2022-0 Yes 50mg Take 50 mg U nivers succinate 1-06 by mouth 2 ity of XL 50 mg 24 14:34: (two) [place] hr tablet 59 times Medical daily. Branch QUEtiapine 2022-0 Yes 800mg Take 800 [place] 400 mg 1-06 mg by ity of tablet 14:34: mouth at [place] 59 bedtime. Medical Branch ALPRAZolam 2022-0 Yes 2mg Take 2 mg [place] 2 mg tablet 1-06 by mouth 3 it y of 14:34: (three) [place] 59 times Medical daily as Branch needed for Sleep. INSULIN 2022-0 Yes 80U inject 80 Unive rs DEGLUDEC 1-06 Units ity of (TRESIBA 14:34: under the [place]LE[place] 59 skin every Medi antione U-100 SC) morning. Branch pantoprazol 2022-0 Yes 20mg Take 20 mg Univers e 20 mg EC 1-06 by mouth ity o f tablet 14:34: daily. [place] 59 Medical Branch insulin 0 Yes inject [facility] aspart 1-06 under the ity of prot/insuln 14:34: skin. [place] asp 59 Medical (NOVOLOG Branch MIX 70-30 SC) cloNIDine 2022-0 Yes .2mg Take 0.2 Univ ers 0.2 mg 1-06 mg by ity of tablet 14:34: mouth 3 [place] 59 (three) Medical times Branch daily. metoprolol 2022-0 Yes 50mg Take 50 mg U nivers succinate 1-06 by mouth 2 ity of XL 50 mg 24 14:34: (two) [place] hr tablet 59 times Medical daily. Branch QUEtiapine 0 Yes 800mg Take 800 [place] 400 mg 1-06 mg by ity of tablet 14:34: mouth at [place] 59 bedtime. Medical Branch ALPRAZolam 0 Yes 2mg Take 2 mg [place] 2 mg tablet 1-06 by mouth 3 it y of 14:34: (three) [place] 59 times Medical daily as Branch needed for Sleep. INSULIN 0 Yes 80U inject 80 Unive rs DEGLUDEC 1-06 Units ity of (TRESIBA 14:34: under the [place]LE[place] 59 skin every Medi antione U-100 SC) morning. Branch pantoprazol 0 Yes 20mg Take 20 mg [facility] e 20 mg EC 1-06 by mouth ity o f tablet 14:34: daily. [place] [address] Medical Branch insulin 0 Yes inject [facility] aspart 1-06 under the ity of prot/insuln 14:34: skin. [place] asp 59 Medical (NOVOLOG Branch MIX 70-30 SC) cloNIDine 2022-0 Yes .2mg Take 0.2 Univ ers 0.2 mg 1-06 mg by ity of tablet 14:34: mouth 3 [place] [address] (three) Medical times Branch daily. metoprolol 2022-0 Yes 50mg Take 50 mg U nivers succinate 1-06 by mouth 2 ity of XL 50 mg 24 14:34: (two) [place] hr tablet 59 times Medical daily. Branch QUEtiapine 2022-0 Yes 800mg Take 800 [place] 400 mg 1-06 mg by ity of tablet 14:34: mouth at [place] 59 bedtime. Medical Branch ALPRAZolam 2022-0 Yes 2mg Take 2 mg [place] 2 mg tablet 1-06 by mouth 3 it y of 14:34: (three) [place] 59 times Medical daily as Branch needed for Sleep. INSULIN 2022-0 Yes 80U inject 80 Unive rs DEGLUDEC 1-06 Units ity of (TRESIBA 14:34: [place] 59 skin every Medi antione U-100 SC) morning. Branch pantoprazol 2022-0 Yes 20mg Take 20 mg [facility] e 20 mg EC 1-06 by mouth ity o f tablet 14:34: daily. [place] [address] Medical Branch insulin 2022-0 Yes inject [facility] aspart 1-06 under the ity of prot/insuln 14:34: skin. [place] asp 59 Medical (NOVOLOG Branch MIX 70-30 SC) cloNIDine 2022-0 Yes .2mg Take 0.2 Univ ers 0.2 mg 1-06 mg by ity of tablet 14:34: mouth 3 [place] [address] (three) Medical times Branch daily. metoprolol 2022-0 Yes 50mg Take 50 mg U nivers succinate 1-06 by mouth 2 ity of XL 50 mg 24 14:34: (two) [place] hr tablet 59 times Medical daily. Branch QUEtiapine 2022-0 Yes 800mg Take 800 [place] 400 mg 1-06 mg by ity of tablet 14:34: mouth at [place] 59 bedtime. Medical Branch ALPRAZolam 2022-0 Yes 2mg Take 2 mg [place] 2 mg tablet 1-06 by mouth 3 it y of 14:34: (three) [place] 59 times Medical daily as Branch needed for Sleep. INSULIN 2022-0 Yes 80U inject 80 Unive rs DEGLUDEC 1-06 Units ity of (TRESIBA 14:34: [place] the [place]LE[place] 59 skin every Medi antione U-100 SC) morning. Branch pantoprazol 2022-0 Yes 20mg Take 20 mg [facility] e 20 mg EC 1-06 by mouth ity o f tablet 14:34: daily. [place] 59 Medical Branch insulin 2022-0 Yes inject [facility] aspart 1-06 under the ity of prot/insuln 14:34: skin. [place] asp 59 Medical (NOVOLOG Branch MIX 70-30 SC) cloNIDine 3-0 Yes .2mg Take 0.2 Univ ers 0.2 mg 1-06 mg by ity of tablet 14:34: mouth 3 [place] 59 (three) Medical times Branch daily. metoprolol 2023-0 Yes 50mg Take 50 mg U nivers succinate 1-06 by mouth 2 ity of XL 50 mg 24 14:34: (two) [place] hr tablet 59 times Medical daily. Branch QUEtiapine 2023-0 Yes 800mg Take 800 Un nighat 400 mg 1-06 mg by ity of tablet 14:34: mouth at [place] 59 bedtime. Medical Branch diclofenac 2023-0 Yes 75mg Take 1 Unive rs 75 mg EC 1-02 tablet by ity of tablet 00:00: mouth in [place] [address] the Medical morning [place] and 1 tablet in the evening. Take with meals. diclofenac 2023-0 Yes 75mg Take 1 Unive rs 75 mg EC 1-02 tablet by ity of tablet 00:00: mouth in [place] [address] the [facility] morning [place] and 1 tablet in the evening. Take with meals. diclofenac 2023-0 Yes 75mg Take 1 Unive rs 75 mg EC 1-02 tablet by ity of tablet 00:00: mouth in [place] [address] the [facility] morning [place] and 1 tablet in the evening. Take with meals. diclofenac 2023-0 Yes 75mg Take 1 Unive rs 75 mg EC 1-02 tablet by ity of tablet 00:00: mouth in [address] morning [place] and 1 tablet in the evening. Take with meals. diclofenac 2023-0 Yes 75mg Take 1 Unive rs 75 mg EC 1-02 tablet by ity of tablet 00:00: mouth in [place] [address] the [facility] morning [place] and 1 tablet in the evening. Take with meals. diclofenac 2023-0 Yes 75mg Take 1 Unive rs 75 mg EC 1-02 tablet by ity of tablet 00:00: mouth in [place] [address] the [facility] and 1 tablet in the evening. Take with meals. diclofenac 2023-0 Yes 75mg Take 1 Unive rs 75 mg EC 1-02 tablet by ity of tablet 00:00: mouth in [address] morning [place] and 1 tablet in the evening. Take with meals. diclofenac 2023-0 Yes 75mg Take 1 Unive rs 75 mg EC 1-02 tablet by ity of tablet 00:00: mouth in [address] and 1 tablet in the evening. Take with meals. diclofenac 2023-0 Yes 75mg Take 1 Unive rs 75 mg EC 1-02 tablet by ity of tablet 00:00: mouth in [place] 00 the Medical morning Branch and 1 tablet in the evening. Take with meals. diclofenac 2022-2022- No 75mg Take 1 Univ ers 75 mg EC 04-20 tablet by ity o f tablet 00:00: 00:00 mouth in [place] 00 :00 the Medical morning Branch and 1 tablet in the evening. Take with meals. diclofenac 2022- No 75mg Take 1 Univ ers 75 mg EC 04-20 tablet by ity o f tablet 00:00: 00:00 mouth in [place] 00 :00 the Medical morning Branch and 1 tablet in the evening. Take with meals. celecoxib 2021-04- No [id number] 200mg Take 1 U nivers (CELEBREX) 05-18 capsule by it y of 200 mg 00:00: 05:59 mouth in [place] capsule 00 :00 the [facility] morning [place] for 30 days. celecoxib 2021-04- No [id number] 200mg Take 1 U nivers (CELEBREX) 05-18 capsule by it y of 200 mg 00:00: 05:59 mouth in [place] capsule 00 :00 the [facility] morning [place] for 30 days. celecoxib 2021-04- No [id number] 200mg Take 1 U nivers (CELEBREX) 05-18 capsule by it y of 200 mg 00:00: 05:59 mouth in [place] capsule 00 :00 the [facility] morning [place] for 30 days. celecoxib 2021-04- No [id number] 200mg Take 1 U nivers (CELEBREX) 05-18 capsule by it y of 200 mg 00:00: 05:59 mouth in [place] capsule 00 :00 the [facility] morning [place] for 30 days. celecoxib 2021-04- No [id number] 200mg Take 1 U nivers (CELEBREX) 205-18 capsule by it y of 200 mg 00:00: 05:59 mouth in [place] capsule 00 :00 the [facility] morning [place] for 30 days. celecoxib 2021-04- No [id number] 200mg Take 1 U nivers (CELEBREX) 05-18 capsule by it y of 200 mg 00:00: 05:59 mouth in [place] capsule 00 :00 the [facility] morning [place] for 30 days. celecoxib 2021-04- No [id number] 200mg Take 1 U nivers (CELEBREX) 2-18 05- capsule by it y of 200 mg 00:00: 05:59 mouth in [place] capsule 00 :00 the [facility] for 30 days. celecoxib 2021-04- No [id number] 200mg Take 1 U nivers (CELEBREX) 2-30 - capsule by it y of 200 mg 00:00: 05:59 mouth in [place] capsule 00 :00 the [facility] for 30 days. nabumetone 2021-04- No [id number] 750mg Take 1 Univers (RELAFEN) 2-20 -20 tablet by ity of 750 mg 00:00: 05:59 mouth in [place] tablet 00 :00 the [facility] for 30 days. nabumetone 2021-04- No [id number] 750mg Take 1 Univers (RELAFEN) 2-08 05- tablet by ity of 750 mg 00:00: 05:59 mouth in [place] tablet 00 :00 the [facility] for 30 days. nabumetone 2021-04- No [id number] 750mg Take 1 Univers (RELAFEN) 2-04-17 tablet by ity of 750 mg 00:00: 00:00 mouth in [place] tablet 00 :00 the [facility] for 30 days. diclofenac 2021-04- No [id number] 75mg Take 1 Univers 75 mg EC 2-16 - tablet by ity o f tablet 00:00: 05:59 mouth in [place] 00 :00 the [facility] Branch and 1 tablet in the evening. Take with meals. Do all this for 30 days. diclofenac 2021-04- No [id number] 75mg Take 1 Univers 75 mg EC 2-16 -16 tablet by ity o f tablet 00:00: 05:59 mouth in [place] 00 :00 the [facility] morning Branch and 1 tablet in the evening. Take with meals. Do all this for 30 days. diclofenac 2021-04- No [id number] 75mg Take 1 Univers 75 mg EC 2-16 -16 tablet by ity o f tablet 00:00: 05:59 mouth in [place] 00 :00 the [facility] morning Branch and 1 tablet in the evening. Take with meals. Do all this for 30 days. diclofenac 2021-04- No [id number] 75mg Take 1 Univers 75 mg EC 2-16 -16 tablet by ity o f tablet 00:00: 05:59 mouth in [place] 00 :00 the [facility] and 1 tablet in the evening. Take with meals. Do all this for 30 days. diclofenac 2021-04- No [id number] 75mg Take 1 Univers 75 mg EC 2-16 -16 tablet by ity o f tablet 00:00: 05:59 mouth in [place] 00 :00 the [facility] and 1 tablet in the evening. Take with meals. Do all this for 30 days. diclofenac 2021-04 No [id number] 75mg Take 1 Univers 75 mg EC 2-04-17 tablet by ity o f tablet 00:00: 00:00 mouth in [place] 00 :00 the [facility] and 1 tablet in the evening. Take with meals. Do all this for 30 days. TRESIBA 2021-04 No FLEXTOUCH 2-07 200U/ML PEN 00:00: 00 TERBINAFINE 2021-04 No HCL 250MG 2-07 TAB 00:00: 00 TAKE 1 2021-04 No TABLET BY 2-07 MOUTH EVERY 00:00: MORNING 00 NYSTATIN 2021-04 No [id number] OIN 2-05 00:00: 00 Dose 2021-04 No Unknown 2-02 00:00: 00 GABAPENTIN 2021-04 No 400MG CAP -30 00:00: 00 TAKE 1 2021-04 No TABLET AT 1-26 BEDTIME. 00:00: 00 INJECT 1.8 2021-04 No MG UNDER 1-23 THE SKIN 00:00: NIGHTLY. 00 INJECT 1.8 2021-04 No MG UNDER 1-23 THE SKIN 00:00: NIGHTLY. 00 Dose 2021-04 No Unknown 1-22 00:00: 00 Dose 2021-04 No Unknown 1-22 00:00: 00 Dose 2021-04 No Unknown 0-03 00:00: 00 AMITRIPTYLI 2021-04 No NE 0-03 HYDROCHLORI 00:00: 50MG TAB 00 Dose 2021-04 No Unknown 0-03 00:00: 00 AMITRIPTYLI 2021-04 No NE 0-03 HYDROCHLORI 00:00: 50MG TAB 00 PANTOPRAZOL 2022-0 No E SODIUM 9-28 40MG TAB 00:00: 00 PANTOPRAZOL 2022-0 No E SODIUM 9-28 40MG TAB 00:00: 00 PANTOPRAZOL 2022-0 No E SODIUM 9-28 40MG TAB 00:00: 00 INJECT 2022-0 No UNITS BELOW 9-27 THE [...] HOURS NEEDED. USE 1 VIAL 2022-0 No [id number] IN 817 NEBULIZER 00:00: EVERY 6 00 HOURS NEEDED. USE 1 VIAL 2022-0 No [id number] IN 17 NEBULIZER 00:00: EVERY 6 00 [...] 100 Unknown 11-14 00:00: 00 estradiol 1 2-0 No 1mg [...] DOSE 25 UNITS. &lt 2-0 No 40 7- 00:00: 00 estradiol 1 2-0 No 1mg [...] DOSE 25 UNITS. &lt 2-0 No 40 7- 00:00: 00 estradiol 1 2021-0 No 1mg mg tablet 10-29 00:00: 00 Dose 2-0 No 4 Unknown 10-29 00:00: 00 INHALE TWO 2021-0 No (2) PUFF(S) 10-29 BY MOUTH 00:00: DAILY. 00 TAKE 1 2021-0 No 75 TABLET BY 7-13 MOUTH TWICE [...] TAKE 1 2021-0 No 75 TABLET BY 713 MOUTH TWICE 00:00: A DAY 00 INJECT 2-0 No UNDER THE -13 SKIN THREE 00:00: TIMES A DAY 00 DIRECTED PER SLIDING SCALE. MAX DOSE 25 UNITS. &lt 2021-0 No 40 10-29 00:00: 00 estradiol 1 2021-0 No 1mg mg tablet 10-29 00:00: 00 Dose 2-0 No 4 Unknown 10-29 00:00: 00 INHALE TWO 2021-0 No (2) PUFF(S) 10-29 BY MOUTH 00:00: DAILY. 00 TAKE 1 2021-0 No 75 TABLET BY 713 MOUTH TWICE 00:00: A DAY 00 INJECT 2-0 No UNDER THE -13 SKIN THREE 00:00: TIMES A DAY 00 DIRECTED PER SLIDING SCALE. MAX DOSE 25 UNITS. &lt 2021-0 No 40 10-29 00:00: 00 quetiapine 2021-0 No 2mg 400 mg 10-09 tablet 00:00: 00 estradiol 1 2021-0 No 1mg mg tablet 10-09 00:00: 00 &lt 2022-0 No - 00:00: 00 &lt 2022-0 No 10-09 00:00: 00 Dose 2-0 No Unknown 10-09 00:00: 00 estradiol 1 2021-0 No 1mg mg tablet 10-09 00:00: 00 &lt 2022-0 No 6-23 00:00: 00 &lt 2022-0 No 6-23 00:00: 00 quetiapine 2022-0 No 2mg 400 mg 6- tablet 00:00: 00 estradiol 1 2022-0 No 1mg mg tablet 10-09 00:00: 00 &lt 2022-0 No 6-23 00:00: 00 &lt 2022-0 No 6-23 00:00: 00 quetiapine 2022-0 No 2mg 400 mg 6- tablet 00:00: 00 estradiol 1 2022-0 No 1mg mg tablet 10-09 00:00: 00 &lt 2022-0 No 6- 00:00: 00 &lt 2022-0 No 6-23 00:00: 00 quetiapine 2022-0 No 2mg 400 mg -23 tablet 00:00: 00 estradiol 1 2022-0 No 1mg mg tablet 10-09 00:00: 00 [...] 2022-0 No Unknown 4-26 00:00: 00 levofloxaci 2-0 No 1mg n 500 mg 4-26 tablet 00:00: 00 promethazin 2-0 No 1mg e 25 mg 4-26 tablet 00:00: 00 Dose 2022-0 No Unknown 4-26 00:00: 00 doxycycline 2-0 No 1mg monohydrate [...] 2022-0 No Unknown 4-13 00:00: 00 Dose 2-0 No Unknown 4-13 00:00: 00 Dose 2-0 No Unknown 4-13 00:00: 00 Dose 2-0 No Unknown 4-13 00:00: 00 Dose 2-0 No Unknown 4-13 00:00: 00 Dose 2-0 No Unknown 4-13 00:00: 00 Dose 2-0 No Unknown 4-13 00:00: 00 Dose 2-0 No Unknown 4-13 00:00: 00 Dose 2-0 No Unknown 4-13 00:00: 00 Dose 2-0 No Unknown 4-13 00:00: 00 Dose 2-0 No Unknown 4-12 00:00: 00 Dose 2-0 No Unknown 4-12 00:00: 00 Dose 2-0 No Unknown 4-12 00:00: 00 Dose 2021-0 No Unknown 4-12 00:00: 00 Victoza 2021-0 No (18 2-Pepe 0.6 4-12 mg/3 mg/0.1 mL 00:00: mL) [...] 400 mg 4-12 tablet 00:00: 00 pantoprazol 2021-0 No 1mg e 40 mg 4-12 tablet,mellisa 00:00: yed release 00 metoclopram 2021-0 No 1mg chrissy 10 mg 4-12 tablet 00:00: 00 Dose 2-0 No Unknown 4-12 00:00: 00 Dose 2021-0 No Unknown 4-12 00:00: 00 amitriptyli 2-0 No 1mg ne 50 mg 4-12 tablet 00:00: 00 Dose 2022-0 No Unknown 4-12 00:00: 00 Combivent 2-0 No 2mcg/ac Respimat 20 4-12 tuation mcg-100 00:00: mcg/actuati 00 on solution for inhalation duloxetine 2021-0 No 1mg 30 mg 4-12 capsule,del 00:00: [...] 2mg 400 mg 4-12 tablet 00:00: 00 Dose 2022-0 No Unknown 4-12 00:00: 00 pantoprazol 2022-0 No 1mg e 40 mg 4-12 tablet,mellisa 00:00: yed release 00 metoclopram 2-0 No 1mg chrissy 10 mg 4-12 tablet 00:00: 00 Dose 2022-0 No Unknown 4-12 00:00: 00 amitriptyli 2022-0 No 1mg ne 50 mg 4-12 tablet 00:00: 00 Dose 2022-0 No Unknown 4-12 00:00: 00 Dose 2022-0 No Unknown 4-12 00:00: 00 duloxetine 2022-0 No 1mg 30 mg 4-12 capsule,del 00:00: [...] 4-12 00:00: 00 Victoza 2021-0 No (18 2-Pepe 0.6 4-12 mg/3 mg/0.1 mL 00:00: mL) [...] 30 mg 4-12 tablet 00:00: 00 amitriptyli 2022-0 No 1mg ne 50 mg 4-12 tablet 00:00: 00 hydroxyzine 2-0 No 1mg HCl 50 mg 4-12 tablet 00:00: 00 Combivent 2-0 No 2mcg/ac Respimat 20 4-12 tuation mcg-100 00:00: mcg/actuati 00 on solution for inhalation duloxetine 2-0 No 1mg 30 mg 4-12 capsule,del 00:00: ayed 00 release Dose 2-0 No Unknown 4-12 00:00: 00 gabapentin 2022-0 [...] 4-12 00:00: 00 Victoza 2-0 No (18 2-Pepe 0.6 4-12 mg/3 mg/0.1 mL 00:00: mL) (18 mg/3 00 mL) subcutaneou s pen injector Dose 2021-0 No Unknown 4-12 00:00: 00 Dose 2022-0 [...] 4-12 00:00: 00 Victoza 2-0 No (18 2-Pepe 0.6 4-12 mg/3 mg/0.1 mL 00:00: mL) (18 mg/3 00 mL) subcutaneou s pen injector Tresiba 2021-0 No (3 mL) FlexTouch 4-12 U-200 00:00: insulin 200 00 unit/mL (3 mL) subcutaneou s pen Novolog 2021-0 No (3 mL) Flexpen 4-12 U-100 00:00: Insulin 00 aspart 100 unit/mL (3 mL) subcutaneou s mupirocin 2 2021-0 No 1% % topical 4-12 ointment 00:00: 00 montelukast 2022-0 No 1mg 10 mg 4-12 tablet 00:00: 00 clonidine 2022-0 No 1mg HCl 0.2 mg 4-12 tablet 00:00: 00 quetiapine 2022-0 No 2mg 400 mg 4-12 tablet 00:00: 00 pantoprazol 2022-0 No 1mg e 40 mg 4-12 tablet,mellisa 00:00: yed release 00 Dose 2-0 No Unknown 4-12 00:00: 00 metoclopram 2022-0 No 1mg chrissy 10 mg 4-12 tablet 00:00: 00 buspirone 2022-0 No 1mg 30 mg 4-12 tablet 00:00: 00 amitriptyli 2022-0 No 1mg ne 50 mg 4-12 tablet [...] Dose 2020- No Unknown 2-28 00:00: 00 buspirone 2020-04 [...] Dose 2020- No Unknown 1-16 00:00: 00 duloxetine 2020- No 1mg 30 mg 1-16 capsule,del 00:00: ayed 00 release Dose 2020- No Unknown 1-16 00:00: 00 buspirone 2020- No 1mg 30 mg 1-16 tablet 00:00: 00 metronidazo 2020- No 1mg le 500 mg 1-16 tablet 00:00: 00 Dose 2020- No Unknown 1-16 00:00: 00 metronidazo 2020- No 1mg le 500 mg 1-16 tablet 00:00: 00 amitriptyli 2020-04 No 1mg ne 50 mg 1-16 tablet 00:00: 00 Dose 2020- No Unknown 1-16 00:00: 00 buspirone 2020- No 1mg 30 mg 1-16 tablet 00:00: 00 metronidazo 2020- No 1mg le 500 mg 1-16 tablet 00:00: 00 Dose 2020- No Unknown 1-16 00:00: 00 metronidazo 2020-04 No 1mg le 500 mg 1-16 tablet 00:00: 00 amitriptyli 2020-04 No 1mg ne 50 mg 1-16 tablet 00:00: 00 Dose 2020- No Unknown 1-16 00:00: 00 hydroxyzine 2020- No 1mg HCl 50 mg 1-16 tablet 00:00: 00 hydroxyzine 2020- No 1mg HCl 50 mg 1-16 tablet 00:00: 00 Dose 2020- No Unknown 1-16 00:00: 00 duloxetine 2020- No 1mg 30 mg 1-16 capsule,del 00:00: ayed 00 release Dose 2020- No Unknown 1-16 00:00: 00 Dose 2020- No Unknown 1-16 00:00: 00 duloxetine 2020- No 1mg 30 mg 1-16 capsule,del 00:00: ayed 00 release Dose 2020-04 No Unknown 1-16 00:00: 00 buspirone 2020- No 1mg 30 mg 1-16 tablet 00:00: 00 metronidazo 2020- No 1mg le 500 mg 1-16 tablet 00:00: 00 Dose 2020-1 No Unknown -16 00:00: 00 metronidazo 2020- No 1mg le 500 mg 1-16 tablet 00:00: 00 amitriptyli 2020- No 1mg ne 50 mg 1-16 tablet 00:00: 00 Dose 2020-1 No Unknown -16 00:00: 00 hydroxyzine 2020- No 1mg HCl 50 mg 1-16 tablet 00:00: 00 Dose 2020- No Unknown 05-04 00:00: 00 duloxetine 2020- No 1mg 30 mg 1-16 capsule,del 00:00: ayed 00 release Dose 2020- No Unknown 05-04 00:00: 00 ciprofloxac 2020- No 1mg in 500 mg 1-02 tablet 00:00: 00 dicyclomine 2020- No 1mg 20 mg 1-02 tablet 00:00: 00 ondansetron 2020- No 1mg 8 mg 1-02 disintegrat 00:00: ing tablet 00 ciprofloxac 2020- No 1mg in 500 mg 1-02 tablet 00:00: 00 dicyclomine 2020- No 1mg 20 mg 1-02 tablet 00:00: 00 ondansetron 2020-1 No 1mg 8 mg 1-02 disintegrat 00:00: ing tablet 00 ciprofloxac 2020- No 1mg in 500 mg 1-02 tablet 00:00: 00 dicyclomine 2020-1 No 1mg 20 mg 1-02 tablet 00:00: 00 ondansetron 2020-1 No 1mg 8 mg 1-02 disintegrat 00:00: ing tablet 00 ciprofloxac 2020- No 1mg in 500 mg 1-02 tablet 00:00: 00 dicyclomine 2020- No 1mg 20 mg 1-02 tablet 00:00: 00 ondansetron 2020- No 1mg 8 mg 1-02 disintegrat 00:00: ing tablet 00 ciprofloxac 2020- No 1mg in 500 mg 1-02 tablet 00:00: 00 dicyclomine 2020- No 1mg 20 mg 1-02 tablet 00:00: 00 ondansetron 2020-1 No 1mg 8 mg 1-02 disintegrat 00:00: ing tablet 00 etodolac 2020- No 1mg 400 mg [...] 2020-1 No Unknown 0-05 00:00: 00 indomethaci 1 No 1mg n 50 mg 0-05 capsule 00:00: 00 Bromfed DM 1 No 5mg/5 2 mg-30 0-05 mL mg-10 mg/5 00:00: mL oral 00 syrup lidocaine 5 2020-04 No 1% % topical 0-05 patch 00:00: 00 Dose 2020-1 No Unknown 0-05 00:00: 00 Dose 2020-1 No Unknown 0-05 00:00: 00 indomethaci 2020-1 No 1mg n 50 mg 0-05 capsule 00:00: 00 Bromfed DM 1 No 5mg/5 2 mg-30 0-05 mL mg-10 mg/5 00:00: mL oral 00 syrup lidocaine 5 2020-04 No 1% % topical 0-05 patch 00:00: 00 buspirone 2020-1 No 1mg 15 mg 0-05 tablet 00:00: 00 hydroxyzine 2020-04 No 1mg HCl 25 mg 0-05 tablet 00:00: 00 indomethaci 2020-1 No 1mg n 50 mg 0-05 capsule 00:00: 00 Bromfed DM 2020-1 No 5mg/5 2 mg-30 0-05 mL mg-10 mg/5 00:00: mL oral 00 syrup lidocaine 5 2020-04 No 1% % topical 0-05 patch 00:00: 00 buspirone 2020-1 No 1mg 15 mg 0-05 tablet 00:00: [...] mg/5 00:00: mL oral 00 syrup Novolog 0 No (3 mL) Flexpen 9-28 U-100 00:00: Insulin 00 aspart 100 unit/mL (3 mL) subcutaneou s Combivent 0 No 2mcg/ac Respimat 20 9-28 tuation mcg-100 00:00: mcg/actuati 00 on solution for inhalation Combivent 2020-0 No 2mcg/ac Respimat 20 9-28 tuation mcg-100 00:00: mcg/actuati 00 on solution for inhalation Victoza 0 No 6(18 2-Pepe 0.6 9-28 mg/3 mg/0.1 mL 00:00: mL) (18 mg/3 00 mL) subcutaneou s pen injector clonidine 0 No 1mg HCl 0.2 mg 9-28 tablet 00:00: 00 pantoprazol 0 No 1mg e 40 mg 9-28 tablet,mellisa 00:00: yed release 00 Victoza 2020-0 No (18 2-Pepe 0.6 9-28 mg/3 mg/0.1 mL 00:00: mL) (18 mg/3 00 mL) subcutaneou s pen injector Novolog 0 No 1(3 mL) Flexpen 9-28 U-100 00:00: Insulin 00 aspart 100 unit/mL (3 mL) subcutaneou s Dose 2020-0 No Unknown 01-14 00:00: 00 Tresiba 1-0 No (3 mL) FlexTouch 9-28 U-200 00:00: insulin 200 00 unit/mL (3 mL) subcutaneou s pen Novolog 2020-0 No (3 mL) Flexpen 9-28 U-100 00:00: Insulin 00 aspart 100 unit/mL (3 mL) subcutaneou s Victoza 2020-0 No 6(18 2-Pepe 0.6 9-28 mg/3 mg/0.1 mL 00:00: mL) (18 mg/3 00 mL) subcutaneou s pen injector clonidine 2020-0 No 1mg HCl 0.2 mg 9-28 tablet 00:00: 00 pantoprazol 1-0 No 1mg e 40 mg 9-28 tablet,mellisa 00:00: yed release 00 montelukast 1-0 No 1mg 10 mg 9-28 tablet 00:00: 00 Dose 2020-0 No Unknown 01-14 00:00: 00 quetiapine 1-0 No 2mg 400 mg 9-28 tablet 00:00: 00 montelukast 1-0 No 1mg 10 mg 9-28 tablet 00:00: 00 clonidine 1-0 No 1mg HCl 0.2 mg 9- tablet 00:00: 00 pantoprazol 1-0 No 1mg e 40 mg 9-28 tablet,mellisa 00:00: yed release 00 metoclopram 1-0 No 1mg chrissy 10 mg 9-28 tablet 00:00: 00 metoclopram 1-0 No 1mg chrissy 10 mg 9-28 tablet 00:00: 00 Dose 1-0 No Unknown 01-14 00:00: 00 hydrocodone 1-0 No 1mg 10 - mg-acetamin 00:00: ophen 300 00 mg tablet Combivent 2020-0 No 2mcg/ac Respimat 20 01-14 tuation mcg-100 00:00: mcg/actuati 00 on solution for inhalation Dose 2020-0 No Unknown 01-14 00:00: 00 montelukast 1-0 No 1mg 10 mg 9-28 tablet 00:00: 00 quetiapine 1-0 No 2mg 400 mg 9-28 tablet 00:00: 00 quetiapine 1-0 No 2mg 400 mg 9-28 tablet 00:00: 00 montelukast 1-0 No 1mg 10 mg [...] Xanax 2 mg 2020-0 No 1mg tablet 28 00:00: 00 hydrocodone 1-0 No 1mg 10 9-28 mg-acetamin 00:00: ophen 300 00 mg tablet Combivent 2020-0 No 2mcg/ac Respimat 20 9-28 tuation mcg-100 00:00: mcg/actuati 00 on solution for inhalation Combivent 2020-0 No 2mcg/ac Respimat 20 9-28 tuation mcg-100 00:00: mcg/actuati 00 on solution for inhalation Victoza 2020-0 No (18 2-Pepe 0.6 9-28 mg/3 mg/0.1 mL 00:00: mL) (18 mg/3 00 mL) subcutaneou s pen injector Novolog 2020-0 No 1(3 mL) Flexpen 9-28 U-100 00:00: Insulin 00 aspart 100 unit/mL (3 mL) subcutaneou s Victoza 2020-0 No 6(18 2-Pepe 0.6 9-28 mg/3 mg/0.1 mL 00:00: mL) (18 mg/3 00 mL) subcutaneou s pen injector Tresiba 2020-0 No (3 mL) FlexTouch 9-28 U-200 00:00: insulin 200 00 unit/mL (3 mL) subcutaneou s pen Novolog 2020-0 No (3 mL) Flexpen 9-28 U-100 00:00: Insulin 00 aspart 100 unit/mL (3 mL) subcutaneou s Victoza 2020-0 No 6(18 2-Pepe 0.6 9-28 mg/3 mg/0.1 mL 00:00: mL) [...] 400 mg 9-28 tablet 00:00: 00 montelukast 1-0 No 1mg 10 mg 9-28 tablet 00:00: 00 clonidine 2020-0 No 1mg HCl 0.2 mg 9-28 tablet 00:00: 00 pantoprazol 1-0 No 1mg e 40 mg 9-28 tablet,mellisa 00:00: yed release 00 metoclopram 1-0 No 1mg chrissy 10 mg 9-28 tablet 00:00: 00 metoclopram 1-0 No 1mg chrissy 10 mg 9-28 tablet 00:00: 00 Xanax 2 mg 2020-0 No 1mg tablet -28 00:00: 00 hydrocodone 1-0 No 1mg 10 9-28 mg-acetamin 00:00: ophen 300 00 mg tablet Combivent 2020-0 No 2mcg/ac Respimat 20 9-28 tuation mcg-100 00:00: mcg/actuati 00 on solution for inhalation Combivent 2020-0 No 2mcg/ac Respimat 20 9-28 tuation mcg-100 00:00: mcg/actuati 00 on solution for inhalation Victoza 2020-0 No (18 2-Pepe 0.6 9-28 mg/3 mg/0.1 mL 00:00: mL) (18 mg/3 00 mL) subcutaneou s pen injector Victoza 2020-0 No (18 2-Pepe 0.6 9-28 mg/3 mg/0.1 mL 00:00: mL) (18 mg/3 00 mL) subcutaneou s pen injector Novolog 2020-0 No 1(3 mL) Flexpen 9-28 U-100 00:00: Insulin 00 aspart 100 unit/mL (3 mL) subcutaneou s Victoza 2020-0 No 6(18 2-Pepe 0.6 9-28 mg/3 mg/0.1 mL 00:00: mL) (18 mg/3 00 mL) subcutaneou s pen injector Tresiba 2020-0 No (3 mL) FlexTouch 9-28 U-200 00:00: insulin 200 00 unit/mL (3 mL) subcutaneou s pen Novolog 2020-0 No (3 mL) Flexpen 9-28 U-100 00:00: Insulin 00 aspart 100 unit/mL (3 mL) subcutaneou s Victoza 2020-0 No 6(18 2-Pepe 0.6 9-28 mg/3 mg/0.1 mL 00:00: mL) (18 mg/3 00 mL) subcutaneou s pen injector clonidine 2020-0 No 1mg HCl 0.2 mg 9-28 tablet 00:00: 00 pantoprazol 1-0 No 1mg e 40 mg 9-28 tablet,mellisa 00:00: yed release 00 montelukast 1-0 No 1mg 10 mg 9-28 tablet 00:00: 00 quetiapine 1-0 No 2mg 400 mg 9-28 tablet 00:00: 00 quetiapine 1-0 No 2mg 400 mg 9-28 tablet 00:00: 00 montelukast 1-0 No 1mg 10 mg [...] 00:00: ophen 300 00 mg tablet Combivent 2021-0 No 2mcg/ac Respimat 20 - tuation mcg-100 00:00: mcg/actuati 00 on solution for inhalation Combivent 0 No 2mcg/ac Respimat 20 01-14 tuation mcg-100 00:00: mcg/actuati 00 on solution for inhalation Novolog 0 No 1(3 mL) Flexpen 9-28 U-100 00:00: Insulin 00 aspart 100 unit/mL (3 mL) subcutaneou s Victoza 0 No 6(18 2-Pepe 0.6 9-28 mg/3 mg/0.1 mL 00:00: mL) (18 mg/3 00 mL) subcutaneou s pen injector Tresiba 0 No (3 mL) FlexTouch 9-28 U-200 00:00: insulin 200 00 unit/mL (3 mL) subcutaneou s pen Victoza 0 No (18 2-Pepe 0.6 9-28 mg/3 mg/0.1 mL 00:00: mL) (18 mg/3 00 mL) subcutaneou s pen injector Novolog 0 No 1(3 mL) Flexpen 9-28 U-100 00:00: Insulin 00 aspart 100 unit/mL (3 mL) subcutaneou s Victoza 0 No 6(18 2-Pepe 0.6 9-28 mg/3 mg/0.1 mL 00:00: mL) (18 mg/3 00 mL) subcutaneou s pen injector Tresiba 0 No (3 mL) FlexTouch 9-28 U-200 00:00: insulin 200 00 unit/mL (3 mL) subcutaneou s pen Novolog 2020-0 No (3 mL) Flexpen 9-28 U-100 00:00: Insulin 00 aspart 100 unit/mL (3 mL) subcutaneou s Victoza 2020-0 No 6(18 2-Pepe 0.6 9-28 mg/3 mg/0.1 mL 00:00: mL) (18 mg/3 00 mL) subcutaneou s pen injector clonidine 0 No 1mg HCl 0.2 mg 9-28 tablet [...] 00:00: ophen 300 00 mg tablet Tresiba 1-0 No (3 mL) FlexTouch 7-03 U-200 00:00: insulin 200 00 unit/mL (3 mL) subcutaneou s pen Tresiba 1-0 No (3 mL) FlexTouch 7-03 U-200 00:00: insulin 200 00 unit/mL (3 mL) subcutaneou s pen Tresiba 1-0 No (3 mL) FlexTouch 7-03 U-200 00:00: insulin 200 00 unit/mL (3 mL) subcutaneou s pen Tresiba 2021-0 No (3 mL) FlexTouch 7-03 U-200 00:00: insulin 200 00 unit/mL (3 mL) subcutaneou s pen Tresiba 2021-0 No (3 mL) FlexTouch 7-03 U-200 00:00: insulin 200 00 unit/mL (3 mL) subcutaneou s pen Victoza 1-0 No (18 3-Pepe 0.6 4-05 mg/3 mg/0.1 mL 00:00: mL) (18 mg/3 00 mL) subcutaneou s pen injector Victoza 2020-0 No (18 3-Pepe 0.6 4-05 mg/3 mg/0.1 mL 00:00: mL) (18 mg/3 00 mL) subcutaneou s pen injector Victoza 0 No (18 3-Pepe 0.6 4-05 mg/3 mg/0.1 mL 00:00: mL) (18 mg/3 00 mL) subcutaneou s pen injector Victoza 2020-0 No (18 3-Pepe 0.6 4-05 mg/3 mg/0.1 mL 00:00: mL) (18 mg/3 00 mL) subcutaneou s pen injector Victoza 0 No (18 3-Pepe 0.6 4-05 mg/3 mg/0.1 mL 00:00: mL) (18 mg/3 00 mL) subcutaneou s pen injector ascorbic Yes [id number] 500mg Take 1 [facility] acid, 2-28 [id number] tablet by [facility] of vitamin C, 00:00: mouth [place] 500 mg 00 daily. [facility] tablet Branch zinc Yes [id number] 220mg Take 1 [facility] vers sulfate 220 2-28 [id number] capsule by [facility] of (50) mg 00:00: mouth [place] capsule 00 daily. [facility] ascorbic 2020-0 Yes [id number] 500mg Take 1 [facility] acid, 2-28 [id number] tablet by [facility] of vitamin C, 00:00: mouth [place] 500 mg 00 daily. Medical tablet Branch zinc 2020- Yes [id number] 220mg Take 1 [facility] vers sulfate 220 2-28 [id number] capsule by [facility] of (50) mg 00:00: mouth [place] capsule 00 daily. [facility] ascorbic 2020-0 Yes [id number] 500mg Take 1 [facility] acid, 2-28 [id number] tablet by [facility] of vitamin C, 00:00: mouth [place] 500 mg 00 daily. Medical tablet [facility] zinc 2020-0 Yes [id number] 220mg Take 1 [facility] vers sulfate 220 2-28 [id number] capsule by [facility] of (50) mg 00:00: mouth [place] capsule 00 daily. [facility] ascorbic 2020-0 Yes [id number] 500mg Take 1 [facility] acid, 2-28 [id number] tablet by [facility] of vitamin C, 00:00: mouth [place] 500 mg 00 daily. Medical tablet Branch zinc 2020-0 Yes [id number] 220mg Take 1 [facility] vers sulfate 220 2-28 [id number] capsule by [facility] of (50) mg 00:00: mouth [place] capsule 00 daily. [facility] ascorbic 2020-0 Yes [id number] 500mg Take 1 [facility] acid, 2-28 [id number] tablet by [facility] of vitamin C, 00:00: mouth [place] 500 mg 00 daily. Medical tablet [facility] zinc 0 Yes [id number] 220mg Take 1 [facility] vers sulfate 220 2-28 [id number] capsule by [facility] of (50) mg 00:00: mouth [place] capsule 00 daily. [facility] ascorbic 0 Yes [id number] 500mg Take 1 [facility] acid, 2-28 [id number] tablet by ity of vitamin C, 00:00: mouth [place] 500 mg 00 daily. Medical tablet Branch zinc 0 Yes [id number] 220mg Take 1 [facility] vers sulfate 220 2-28 [id number] capsule by ity of (50) mg 00:00: mouth [place] capsule 00 daily. Medical Branch ascorbic 2020-0 Yes [id number] 500mg Take 1 [facility] acid, 2-28 [id number] tablet by ity of vitamin C, 00:00: mouth [place] 500 mg 00 daily. Medical tablet Branch zinc 0 Yes [id number] 220mg Take 1 [facility] vers sulfate 220 2-28 [id number] capsule by ity of (50) mg 00:00: mouth [place] capsule 00 daily. Medical Branch ascorbic 2020-0 Yes [id number] 500mg Take 1 [facility] acid, 2-28 [id number] tablet by ity of vitamin C, 00:00: mouth [place] 500 mg 00 daily. Medical tablet Branch zinc 0 Yes [id number] 220mg Take 1 [facility] vers sulfate 220 2-28 [id number] capsule by ity of (50) mg 00:00: mouth [place] capsule 00 daily. Medical Branch ascorbic 2020-0 Yes [id number] 500mg Take 1 [facility] acid, 2-28 [id number] tablet by ity of vitamin C, 00:00: mouth [place] 500 mg 00 daily. Medical tablet Branch zinc 2021-0 Yes [id number] 220mg Take 1 [facility] vers sulfate 220 2-28 [id number] capsule by ity of (50) mg 00:00: mouth [place] capsule 00 daily. Medical Branch ascorbic Yes [id number] 500mg Take 1 [facility] acid, 2-28 [id number] tablet by ity of vitamin C, 00:00: mouth [place] 500 mg 00 daily. Medical tablet Branch zinc Yes [id number] 220mg Take 1 [facility] vers sulfate 220 2-28 [id number] capsule by ity of (50) mg 00:00: mouth [place] capsule 00 daily. Medical Branch ascorbic Yes [id number] 500mg Take 1 [facility] acid, 2-28 [id number] tablet by ity of vitamin C, 00:00: mouth [place] 500 mg 00 daily. Medical tablet Branch zinc Yes [id number] 220mg Take 1 [facility] vers sulfate 220 2-28 [id number] capsule by ity of (50) mg 00:00: mouth [place] capsule 00 daily. Medical Branch ascorbic Yes [id number] 500mg Take 1 [facility] acid, 2-28 [id number] tablet by ity of vitamin C, 00:00: mouth [place] 500 mg 00 daily. Medical tablet Branch zinc Yes [id number] 220mg Take 1 [facility] vers sulfate 220 2-28 [id number] capsule by ity of (50) mg 00:00: mouth [place] capsule 00 daily. Medical Branch ascorbic Yes [id number] 500mg Take 1 [facility] acid, 2-28 [id number] tablet by ity of vitamin C, 00:00: mouth [place] 500 mg 00 daily. Medical tablet Branch zinc 0 Yes [id number] 220mg Take 1 [facility] vers sulfate 220 2-28 [id number] capsule by ity of (50) mg 00:00: mouth [place] capsule 00 daily. Medical Branch ascorbic 0 Yes [id number] 500mg Take 1 [facility] acid, 2-28 [id number] tablet by ity of vitamin C, 00:00: mouth [place] 500 mg 00 daily. Medical tablet Branch zinc 0 Yes [id number] 220mg Take 1 [facility] vers sulfate 220 2-28 [id number] capsule by ity of (50) mg 00:00: mouth [place] capsule 00 daily. Medical Branch ascorbic 2020-0 Yes [id number] 500mg Take 1 [facility] acid, 2-28 [id number] tablet by ity of vitamin C, 00:00: mouth [place] 500 mg 00 daily. Medical tablet Branch zinc 0 Yes [id number] 220mg Take 1 [facility] vers sulfate 220 2-28 [id number] capsule by ity of (50) mg 00:00: mouth [place] capsule 00 daily. Medical Branch ascorbic 2020-0 Yes [id number] 500mg Take 1 [facility] acid, 2-28 [id number] tablet by ity of vitamin C, 00:00: mouth [place] 500 mg 00 daily. Medical tablet Branch zinc 0 Yes [id number] 220mg Take 1 [facility] vers sulfate 220 2-28 [id number] capsule by ity of (50) mg 00:00: mouth [place] capsule 00 daily. Medical Branch ascorbic Yes [id number] 500mg Take 1 [facility] acid, 2-28 [id number] tablet by ity of vitamin C, 00:00: mouth [place] 500 mg 00 daily. Medical tablet Branch zinc 0 Yes [id number] 220mg Take 1 [facility] vers sulfate 220 2-28 [id number] capsule by ity of (50) mg 00:00: mouth [place] capsule 00 daily. Medical Branch ascorbic 2020-0 Yes [id number] 500mg Take 1 [facility] acid, 2-28 [id number] tablet by ity of vitamin C, 00:00: mouth [place] 500 mg 00 daily. Medical tablet Branch zinc 2020-0 Yes [id number] 220mg Take 1 [facility] vers sulfate 220 2-28 [id number] capsule by ity of (50) mg 00:00: mouth [place] capsule 00 daily. Medical Branch ascorbic 2020-0 Yes [id number] 500mg Take 1 [facility] acid, 2-28 [id number] tablet by ity of vitamin C, 00:00: mouth [place] 500 mg 00 daily. Medical tablet Branch zinc 0 Yes [id number] 220mg Take 1 [facility] vers sulfate 220 2-28 [id number] capsule by ity of (50) mg 00:00: mouth [place] capsule 00 daily. Medical Branch ascorbic 2020-0 Yes [id number] 500mg Take 1 [facility] acid, 2-28 [id number] tablet by ity of vitamin C, 00:00: mouth [place] 500 mg 00 daily. Medical tablet Branch zinc 0 Yes [id number] 220mg Take 1 [facility] vers sulfate 220 2-28 [id number] capsule by ity of (50) mg 00:00: mouth [place] capsule 00 daily. Medical Branch ascorbic 2020-0 Yes [id number] 500mg Take 1 [facility] acid, 2-28 [id number] tablet by ity of vitamin C, 00:00: mouth [place] 500 mg 00 daily. Medical tablet Branch zinc 0 Yes [id number] 220mg Take 1 [facility] vers sulfate 220 2-28 [id number] capsule by ity of (50) mg 00:00: mouth [place] capsule 00 daily. Medical Branch ascorbic 2020- Yes [id number] 500mg Take 1 [facility] acid, 2-28 [id number] tablet by ity of vitamin C, 00:00: mouth [place] 500 mg 00 daily. Medical tablet Branch zinc Yes [id number] 220mg Take 1 [facility] vers sulfate 220 2-28 [id number] capsule by ity of (50) mg 00:00: mouth [place] capsule 00 daily. Medical Branch ascorbic 2020-0 Yes [id number] 500mg Take 1 [facility] acid, 2-28 [id number] tablet by ity of vitamin C, 00:00: mouth [place] 500 mg 00 daily. Medical tablet Branch zinc Yes [id number] 220mg Take 1 [facility] vers sulfate 220 2-28 [id number] capsule by ity of (50) mg 00:00: mouth [place] capsule 00 daily. Medical Branch ascorbic 2020-0 Yes [id number] 500mg Take 1 [facility] acid, 2-28 [id number] tablet by ity of vitamin C, 00:00: mouth [place] 500 mg 00 daily. Medical tablet Branch zinc 0 Yes [id number] 220mg Take 1 [facility] vers sulfate 220 2-28 [id number] capsule by ity of (50) mg 00:00: mouth [place] capsule 00 daily. Medical Branch ascorbic 2020-0 Yes [id number] 500mg Take 1 [facility] acid, 2-28 [id number] tablet by ity of vitamin C, 00:00: mouth [place] 500 mg 00 daily. Medical tablet Branch zinc 2020- Yes [id number] 220mg Take 1 [facility] vers sulfate 220 2-28 [id number] capsule by ity of (50) mg 00:00: mouth [place] capsule 00 daily. Medical Branch ascorbic 2020-0 Yes [id number] 500mg Take 1 [facility] acid, 2-28 [id number] tablet by ity of vitamin C, 00:00: mouth [place] 500 mg 00 daily. Medical tablet Branch zinc 2020-0 Yes [id number] 220mg Take 1 [facility] vers sulfate 220 2-28 [id number] capsule by ity of (50) mg 00:00: mouth [place] capsule 00 daily. Medical Branch ascorbic 2020-0 Yes [id number] 500mg Take 1 [facility] acid, 2-28 [id number] tablet by ity of vitamin C, 00:00: mouth [place] 500 mg 00 daily. Medical tablet Branch zinc 0 Yes [id number] 220mg Take 1 [facility] vers sulfate 220 2-28 [id number] capsule by ity of (50) mg 00:00: mouth [place] capsule 00 daily. Medical Branch ascorbic 2020-0 Yes [id number] 500mg Take 1 [facility] acid, 2-28 [id number] tablet by ity of vitamin C, 00:00: mouth [place] 500 mg 00 daily. Medical tablet Branch zinc 0 Yes [id number] 220mg Take 1 [facility] vers sulfate 220 2-28 [id number] capsule by ity of (50) mg 00:00: mouth [place] capsule 00 daily. Medical Branch ascorbic 2020-0 Yes [id number] 500mg Take 1 [facility] acid, 2-28 [id number] tablet by ity of vitamin C, 00:00: mouth [place] 500 mg 00 daily. Medical tablet Branch zinc 2020-0 Yes [id number] 220mg Take 1 [facility] vers sulfate 220 2-28 [id number] capsule by ity of (50) mg 00:00: mouth [place] capsule 00 daily. Medical Branch ascorbic 2020-0 Yes [id number] 500mg Take 1 [facility] acid, 2-28 [id number] tablet by ity of vitamin C, 00:00: mouth [place] 500 mg 00 daily. Medical tablet Branch zinc 2020-0 Yes [id number] 220mg Take 1 [facility] vers sulfate 220 2-28 [id number] capsule by ity of (50) mg 00:00: mouth [place] capsule 00 daily. Medical Branch ascorbic 2020-0 Yes [id number] 500mg Take 1 [facility] acid, 2-28 [id number] tablet by ity of vitamin C, 00:00: mouth [place] 500 mg 00 daily. Medical tablet Branch zinc 2020-0 Yes [id number] 220mg Take 1 [facility] vers sulfate 220 2-28 [id number] capsule by ity of (50) mg 00:00: mouth [place] capsule 00 daily. Medical Branch ascorbic 2020-0 Yes [id number] 500mg Take 1 [facility] acid, 2-28 [id number] tablet by ity of vitamin C, 00:00: mouth [place] 500 mg 00 daily. Medical tablet Branch zinc 0 Yes [id number] 220mg Take 1 [facility] vers sulfate 220 2-28 [id number] capsule by ity of (50) mg 00:00: mouth [place] capsule 00 daily. Medical Branch ascorbic 2020-0 Yes [id number] 500mg Take 1 [facility] acid, 2-28 [id number] tablet by ity of vitamin C, 00:00: mouth [place] 500 mg 00 daily. Medical tablet Branch zinc 2020-0 Yes [id number] 220mg Take 1 [facility] vers sulfate 220 2-28 [id number] capsule by ity of (50) mg 00:00: mouth [place] capsule 00 daily. Medical Branch ascorbic 2020-0 Yes [id number] 500mg Take 1 [facility] acid, 2-28 [id number] tablet by ity of vitamin C, 00:00: mouth [place] 500 mg 00 daily. Medical tablet Branch zinc 0 Yes [id number] 220mg Take 1 [facility] vers sulfate 220 2-28 [id number] capsule by ity of (50) mg 00:00: mouth [place] capsule 00 daily. Medical Branch ascorbic 2020-0 Yes [id number] 500mg Take 1 [facility] acid, 2-28 [id number] tablet by ity of vitamin C, 00:00: mouth [place] 500 mg 00 daily. Medical tablet Branch zinc 0 Yes [id number] 220mg Take 1 [facility] vers sulfate 220 2-28 [id number] capsule by ity of (50) mg 00:00: mouth [place] capsule 00 daily. Medical Branch ascorbic 2020-0 Yes [id number] 500mg Take 1 [facility] acid, 2-28 [id number] tablet by ity of vitamin C, 00:00: mouth [place] 500 mg 00 daily. Medical tablet Branch zinc 2020-0 Yes [id number] 220mg Take 1 [facility] vers sulfate 220 2-28 [id number] capsule by ity of (50) mg 00:00: mouth [place] capsule 00 daily. Medical Branch ascorbic 2020-0 Yes [id number] 500mg Take 1 [facility] acid, 2-28 [id number] tablet by ity of vitamin C, 00:00: mouth [place] 500 mg 00 daily. Medical tablet Branch zinc 2020-0 Yes [id number] 220mg Take 1 [facility] vers sulfate 220 2-28 [id number] capsule by ity of (50) mg 00:00: mouth [place] capsule 00 daily. Medical Branch ascorbic 2020-0 Yes [id number] 500mg Take 1 [facility] acid, 2-28 [id number] tablet by ity of vitamin C, 00:00: mouth [place] 500 mg 00 daily. Medical tablet Branch zinc 2020-0 Yes [id number] 220mg Take 1 [facility] vers sulfate 220 2-28 [id number] capsule by ity of (50) mg 00:00: mouth [place] capsule 00 daily. Medical Branch ascorbic 2020-0 Yes [id number] 500mg Take 1 [facility] acid, 2-28 [id number] tablet by ity of vitamin C, 00:00: mouth [place] 500 mg 00 daily. Medical tablet Branch zinc 2020-0 Yes [id number] 220mg Take 1 [facility] vers sulfate 220 2-28 [id number] capsule by ity of (50) mg 00:00: mouth [place] capsule 00 daily. Medical Branch ascorbic 2020-0 Yes [id number] 500mg Take 1 [facility] acid, 2-28 [id number] tablet by ity of vitamin C, 00:00: mouth [place] 500 mg 00 daily. Medical tablet Branch zinc 2020-0 Yes [id number] 220mg Take 1 [facility] vers sulfate 220 2-28 [id number] capsule by ity of (50) mg 00:00: mouth [place] capsule 00 daily. Medical Branch ascorbic 2020-0 Yes [id number] 500mg Take 1 [facility] acid, 2-28 [id number] tablet by ity of vitamin C, 00:00: mouth [place] 500 mg 00 daily. Medical tablet Branch zinc 2020-0 Yes [id number] 220mg Take 1 [facility] vers sulfate 220 2-28 [id number] capsule by ity of (50) mg 00:00: mouth [place] capsule 00 daily. Medical Branch ascorbic 2020-0 Yes [id number] 500mg Take 1 [facility] acid, 2-28 [id number] tablet by ity of vitamin C, 00:00: mouth [place] 500 mg 00 daily. Medical tablet Branch zinc Yes [id number] 220mg Take 1 [facility] vers sulfate 220 2- [id number] capsule by ity of (50) mg 00:00: mouth [place] capsule 00 daily. Medical Branch ascorbic Yes [id number] 500mg Take 1 [facility] acid, 2- [id number] tablet by ity of vitamin C, 00:00: mouth [place] 500 mg 00 daily. Medical tablet Branch zinc Yes [id number] 220mg Take 1 [facility] vers sulfate 220 2- [id number] capsule by ity of (50) mg 00:00: mouth [place] capsule 00 daily. Medical Branch ALPRAZolam Yes 2mg Take 2 [...] by mouth ity of (PROTONIX) 21:18: daily. [place] 20 mg EC 29 Medical tablet Branch [...] [place] tablet 29 bedtime. Medical Branch ALPRAZolam 2021-0 Yes 2mg Take 2 mg Un nighat [...] by mouth ity of (PROTONIX) 21:18: daily. [place] 20 mg EC 29 Medical tablet Branch insulin 0 Yes inject [facility] aspart 2-27 under the ity of prot/insuln 21:18: skin. [place] asp 29 Medical (NOVOLOG Branch MIX 70-30 SC) cloNIDine 0 Yes .2mg Take 0.2 [facility] ers 0.2 mg 2-27 mg by ity of tablet 21:18: mouth 3 [place] 29 (three) Medical times Branch daily. metoprolol 0 Yes 50mg Take 50 mg U nivers succinate 2-27 by mouth 2 ity of XL 50 mg 24 21:18: (two) [place] hr tablet 29 times Medical daily. Branch QUEtiapine 0 Yes 800mg Take 800 Un nighat (SEROQUEL) 2-27 mg by ity of 400 mg 21:18: mouth at [place] tablet 29 bedtime. Medical Branch ALPRAZolam 0 Yes 2mg Take 2 mg [facility] nighat (XANAX) 2 2-27 by mouth 3 ity of mg tablet 15:18: (three) [place] 29 times Medical daily as Branch needed for Sleep. INSULIN 0 Yes 80U inject 80 Un[facility] rs DEGLUDEC 2-27 Units ity of (TRESIBA 15:18: under the [place] FLEXTOUCH 29 skin every Medi antione U-100 SC) morning. Branch pantoprazol 0 Yes 20mg Take 20 mg [facility] e 2-27 by mouth ity of (PROTONIX) 15:18: daily. [place] 20 mg EC 29 Medical tablet Branch insulin 0 Yes inject [facility] aspart 2-27 under the ity of prot/insuln 15:18: skin. [place] asp 29 Medical (NOVOLOG Branch MIX 70-30 SC) cloNIDine 2021-0 Yes .2mg Take 0.2 Univ ers 0.2 mg 2-27 mg by ity of tablet 15:18: mouth 3 [place] 29 (three) Medical times Branch daily. metoprolol 2020-0 Yes 50mg Take 50 mg U nivers succinate 2-27 by mouth 2 ity of XL 50 mg 24 15:18: (two) [place] hr tablet 29 times Medical daily. Branch QUEtiapine 0 Yes 800mg Take 800 Un nighat (SEROQUEL) 2-27 mg by ity of 400 mg 15:18: mouth at [place] tablet 29 bedtime. Medical Branch ALPRAZolam 0 Yes 2mg Take 2 mg [facility] nighat (XANAX) 2 2-27 by mouth 3 ity of mg tablet 15:18: (three) [place] 29 times Medical daily as Branch needed for Sleep. INSULIN Yes 80U inject 80 Unive rs DEGLUDEC 2-27 Units ity of (TRESIBA 15:18: under the [facility] s FLEXTOUCH 29 skin every Medi antione U-100 SC) morning. Branch pantoprazol Yes 20mg Take 20 mg [facility] e 2-27 by mouth ity of (PROTONIX) 15:18: daily. [place] 20 mg EC 29 Medical tablet Branch insulin Yes inject [facility] aspart 2-27 under the ity of prot/insuln 15:18: skin. [place] asp 29 Medical (NOVOLOG Branch MIX 70-30 SC) cloNIDine Yes .2mg Take 0.2 Univ ers 0.2 mg 2-27 mg by ity of tablet 15:18: mouth 3 [place] 29 (three) Medical times Branch daily. metoprolol 0 Yes 50mg Take 50 mg U nivers succinate 2-27 by mouth 2 ity of XL 50 mg 24 15:18: (two) [place] hr tablet 29 times Medical daily. Branch QUEtiapine 0 Yes 800mg Take 800 Un nighat (SEROQUEL) 2-27 mg by ity of 400 mg 15:18: mouth at [place] tablet 29 bedtime. Medical Branch ALPRAZolam 0 Yes 2mg Take 2 mg [facility] nighat (XANAX) 2 2-27 by mouth 3 ity of mg tablet 15:18: (three) [place] 29 times Medical daily as Branch needed for Sleep. INSULIN 0 Yes 80U inject 80 Unive rs DEGLUDEC 2-27 Units ity of (TRESIBA 15:18: under the [place] FLEXTOUCH 29 skin every Medi antione U-100 SC) morning. Branch pantoprazol 0 Yes 20mg Take 20 mg [facility] e 2-27 by mouth ity of (PROTONIX) 15:18: daily. [place] 20 mg EC 29 Medical tablet Branch insulin 0 Yes inject [facility] aspart 2-27 under the ity of prot/insuln 15:18: skin. [place] asp 29 Medical (NOVOLOG Branch MIX 70-30 SC) cloNIDine 2020-0 Yes .2mg Take 0.2 [facility] ers 0.2 mg 2-27 mg by ity of tablet 15:18: mouth 3 [place] 29 (three) Medical times Branch daily. metoprolol 0 Yes 50mg Take 50 mg U nivers succinate 2-27 by mouth 2 ity of XL 50 mg 24 15:18: (two) [place] hr tablet 29 times Medical daily. Branch QUEtiapine 0 Yes 800mg Take 800 Un nighat (SEROQUEL) 2-27 mg by ity of 400 mg 15:18: mouth at [place] tablet 29 bedtime. Medical Branch ALPRAZolam 0 Yes 2mg Take 2 mg [facility] nighat (XANAX) 2 2-27 by mouth 3 ity of mg tablet 15:18: (three) [place] 29 times Medical daily as Branch needed for Sleep. INSULIN 0 Yes 80U inject 80 Unive rs DEGLUDEC 2-27 Units ity of (TRESIBA 15:18: [facility] skin every Medi antione U-100 SC) morning. Branch pantoprazol 0 Yes 20mg Take 20 mg [facility] e 2-27 by mouth ity of (PROTONIX) 15:18: daily. [place] 20 mg EC 29 Medical tablet Branch insulin 0 Yes inject [facility] aspart 2-27 under the ity of prot/insuln 15:18: skin. [place] asp 29 Medical (NOVOLOG Branch MIX 70-30 SC) cloNIDine 2020-0 Yes .2mg Take 0.2 Univ ers 0.2 mg 2-27 mg by ity of tablet 15:18: mouth 3 [place] 29 (three) Medical times Branch daily. metoprolol 0 Yes 50mg Take 50 mg U nivers succinate 2-27 by mouth 2 ity of XL 50 mg 24 15:18: (two) [place] hr tablet 29 times Medical daily. Branch QUEtiapine 0 Yes 800mg Take 800 Un nighat (SEROQUEL) 2-27 mg by ity of 400 mg 15:18: mouth at [place] tablet 29 bedtime. Medical Branch ALPRAZolam 0 Yes 2mg Take 2 mg Un nig[facility] (XANAX) 2 2-27 by mouth 3 ity of mg tablet 15:18: (three) [place] 29 times Medical daily as Branch needed for Sleep. INSULIN 0 Yes 80U inject 80 Unive rs DEGLUDEC 2-27 Units ity of (TRESIBA 15:18: under the [place] FLEXTOUCH 29 skin every Medi antione U-100 SC) morning. Branch pantoprazol Yes 20mg Take 20 mg [facility] e 2-27 by mouth ity of (PROTONIX) 15:18: daily. [place] 20 mg EC 29 Medical tablet Branch insulin Yes inject [facility] aspart 2-27 under the ity of prot/insuln 15:18: skin. [place] asp 29 Medical (NOVOLOG Branch MIX 70-30 SC) cloNIDine Yes .2mg Take 0.2 Univ ers 0.2 mg 2-27 mg by ity of tablet 15:18: mouth 3 [place] 29 (three) Medical times Branch daily. metoprolol Yes 50mg Take 50 mg U nivers succinate 2-27 by mouth 2 ity of XL 50 mg 24 15:18: (two) [place] hr tablet 29 times Medical daily. Branch QUEtiapine Yes 800mg Take 800 Un [facility]hat (SEROQUEL) 2-27 mg by ity of 400 mg 15:18: mouth at [place] tablet 29 bedtime. Medical Branch ALPRAZolam 0 Yes 2mg Take 2 mg [facility] [place] (XANAX) 2 2-27 by mouth 3 ity of mg tablet 15:18: (three) [place] 29 times Medical daily as Branch needed for Sleep. INSULIN 0 Yes 80U inject 80 Unive rs DEGLUDEC 2-27 Units ity of (TRESIBA 15:18: under the [place] FLEXTOUCH 29 skin every Medi antione U-100 SC) morning. Branch pantoprazol 0 Yes 20mg Take 20 mg [facility] e 2-27 by mouth ity of (PROTONIX) 15:18: daily. [place] 20 mg EC 29 Medical tablet Branch insulin 0 Yes inject [facility] aspart 2-27 under the ity of prot/insuln 15:18: skin. [place] asp 29 Medical (NOVOLOG Branch MIX 70-30 SC) cloNIDine 2020-0 Yes .2mg Take 0.2 Univ ers 0.2 mg 2-27 mg by ity of tablet 15:18: mouth 3 [place] 29 (three) Medical times Branch daily. metoprolol 2020-0 Yes 50mg Take 50 mg U nivers succinate 2-27 by mouth 2 ity of XL 50 mg 24 15:18: (two) [place] hr tablet 29 times Medical daily. Branch QUEtiapine 0 Yes 800mg Take 800 Un [facility] (SEROQUEL) 2-27 mg by ity of 400 mg 15:18: mouth at [place] tablet 29 bedtime. Medical Branch ALPRAZolam 0 Yes 2mg Take 2 mg [facility] (XANAX) 2 2-27 by mouth 3 ity of mg tablet 15:18: (three) [place] 29 times Medical daily as Branch needed for Sleep. INSULIN 0 Yes 80U inject 80 Unive rs DEGLUDEC 2-27 Units ity of (TRESIBA 15:18: under the [place] FLEXTOUCH 29 skin every Medi antione U-100 SC) morning. Branch pantoprazol 0 Yes 20mg Take 20 mg [facility] e 2-27 by mouth ity of (PROTONIX) 15:18: daily. [place] 20 mg EC 29 Medical tablet Branch insulin 0 Yes inject [facility] aspart 2-27 under the ity of prot/insuln 15:18: skin. [place] asp 29 Medical (NOVOLOG Branch MIX 70-30 SC) cloNIDine 2020-0 Yes .2mg Take 0.2 Univ ers 0.2 mg 2-27 mg by ity of tablet 15:18: mouth 3 [place] 29 (three) Medical times Branch daily. metoprolol 2020-0 Yes 50mg Take 50 mg U nivers succinate 2-27 by mouth 2 ity of XL 50 mg 24 15:18: (two) [place] hr tablet 29 times Medical daily. Branch QUEtiapine 0 Yes 800mg Take 800 Un [place] (SEROQUEL) 2-27 mg by ity of 400 mg 15:18: mouth at [place] tablet 29 bedtime. Medical Branch ALPRAZolam 0 Yes 2mg Take 2 mg Un [facility] (XANAX) 2 2-27 by mouth 3 ity of mg tablet 15:18: (three) [place] 29 times Medical daily as Branch needed for Sleep. INSULIN 0 Yes 80U inject 80 Unive rs DEGLUDEC 2-27 Units ity of (TRESIBA 15:18: under the [place] FLEXTOUCH 29 skin every Medi antione U-100 SC) morning. Branch pantoprazol Yes 20mg Take 20 mg [facility] e 2-27 by mouth ity of (PROTONIX) 15:18: daily. [place] 20 mg EC 29 Medical tablet Branch insulin Yes inject [facility] aspart 2-27 under the ity of prot/insuln 15:18: skin. [place] asp 29 Medical (NOVOLOG Branch MIX 70-30 SC) cloNIDine Yes .2mg Take 0.2 Univ ers 0.2 mg 2-27 mg by ity of tablet 15:18: mouth 3 [place] 29 (three) Medical times Branch daily. metoprolol Yes 50mg Take 50 mg U nivers succinate 2-27 by mouth 2 ity of XL 50 mg 24 15:18: (two) [place] hr tablet 29 times Medical daily. Branch QUEtiapine 0 Yes 800mg Take 800 Un nig[facility] (SEROQUEL) 2-27 mg by ity of 400 mg 15:18: mouth at [place] tablet 29 bedtime. Medical Branch ALPRAZolam 0 Yes 2mg Take 2 mg [facility] (XANAX) 2 2-27 by mouth 3 ity of mg tablet 15:18: (three) [place] 29 times Medical daily as Branch needed for Sleep. INSULIN 0 Yes 80U inject 80 Unive rs DEGLUDEC 2-27 Units ity of (TRESIBA 15:18: under the [place] FLEXTOUCH 29 skin every Medi antione U-100 SC) morning. Branch pantoprazol 2021-0 Yes 20mg Take 20 mg [facility] e 2-27 by mouth ity of (PROTONIX) 15:18: daily. [place] 20 mg EC 29 Medical tablet Branch insulin 0 Yes inject [facility] aspart 2-27 under the ity of prot/insuln 15:18: skin. [place] asp 29 Medical (NOVOLOG Branch MIX 70-30 SC) cloNIDine 2020-0 Yes .2mg Take 0.2 Univ ers 0.2 mg 2-27 mg by ity of tablet 15:18: mouth 3 [place] 29 (three) Medical times Branch daily. metoprolol 2020-0 Yes 50mg Take 50 mg U nivers succinate 2-27 by mouth 2 ity of XL 50 mg 24 15:18: (two) [place] hr tablet 29 times Medical daily. Branch QUEtiapine 0 Yes 800mg Take 800 Un nighat (SEROQUEL) 2-27 mg by ity of 400 mg 15:18: mouth at [place] tablet 29 bedtime. Medical Branch ALPRAZolam 0 Yes 2mg Take 2 mg Un nig[facility] (XANAX) 2 2-27 by mouth 3 ity of mg tablet 15:18: (three) [place] 29 times Medical daily as Branch needed for Sleep. INSULIN 0 Yes 80U inject 80 Unive rs DEGLUDEC 2-27 Units ity of (TRESIBA 15:18: [facility] skin every Medi antione U-100 SC) morning. Branch pantoprazol 0 Yes 20mg Take 20 mg [facility] e 2-27 by mouth ity of (PROTONIX) 15:18: daily. [place] 20 mg EC 29 Medical tablet Branch insulin 0 Yes inject [facility] aspart 2-27 under the ity of prot/insuln 15:18: skin. [place] asp 29 Medical (NOVOLOG Branch MIX 70-30 SC) cloNIDine 2020-0 Yes .2mg Take 0.2 Univ ers 0.2 mg 2-27 mg by ity of tablet 15:18: mouth 3 [place] 29 (three) Medical times Branch daily. metoprolol 2020-0 Yes 50mg Take 50 mg U nivers succinate 2-27 by mouth 2 ity of XL 50 mg 24 15:18: (two) [place] hr tablet 29 times Medical daily. Branch QUEtiapine 2020-0 Yes 800mg Take 800 Un nighat (SEROQUEL) 2-27 mg by ity of 400 mg 15:18: mouth at [place] tablet 29 bedtime. Medical Branch ergocalcife Yes [id number] Take 1 [facility] rol, 2-27 [id number] capsule by ity of vitamin d2, 00:00: mouth [place] 1,250 mcg 00 weekly. Medical (50,000 Branch unit) capsule benzonatate Yes [id number] 200mg Take 2 [facility] (TESSALON 2-27 [id number] capsules ity of PERLES) 100 00:00: by mouth 3 [place] mg capsule 00 (three) Medica l times Branch daily as needed for Cough. aspirin 81 Yes [id number] 81mg Take 1 [facility] mg chewable 2-27 [id number] tablet by ity of tablet 00:00: mouth [place] 00 daily. Medical Branch ergocalcife Yes [id number] 44858P Take 1 [facility] rol, 2-27 [id number] capsule by ity of vitamin d2, 00:00: mouth [place] 1,250 mcg 00 weekly. Medical (50,000 Branch unit) capsule benzonatate Yes [id number] 200mg Take 2 [facility] ([place]ESS[place] 2-27 [id number] capsules ity of PERLES) 100 00:00: by mouth 3 [place] mg capsule 00 (three) Medica l times Branch daily as needed for Cough. aspirin 81 Yes [id number] 81mg Take 1 [facility] mg chewable 2-27 [id number] tablet by ity of tablet 00:00: mouth [place] 00 daily. Medical Branch ergocalcife Yes [id number] Take 1 [facility] rol, 2-27 [id number] capsule by ity of vitamin d2, 00:00: mouth [place] 1,250 mcg 00 weekly. Medical (50,000 Branch unit) capsule benzonatate 0 Yes [id number] 200mg Take 2 [facility] ([place]ESS[place] 2-27 [id number] capsules ity of PERLES) 100 00:00: by mouth 3 [place] mg capsule 00 (three) Medica l times Branch daily as needed for Cough. aspirin 81 0 Yes [id number] 81mg Take 1 [facility] mg chewable 2-27 [id number] tablet by ity of tablet 00:00: mouth [place] 00 daily. Medical Branch ergocalcife 2020-0 Yes [id number] Take 1 [facility] rol, 2-27 [id number] capsule by ity of vitamin d2, 00:00: mouth [place] 1,250 mcg 00 weekly. Medical (50,000 Branch unit) capsule benzonatate 2020-0 Yes [id number] 200mg Take 2 [facility] ([place] 2-27 [id number] capsules ity of PERLES) 100 00:00: by mouth 3 [place] mg capsule 00 (three) Medica l times Branch daily as needed for Cough. aspirin 81 2020-0 Yes [id number] 81mg Take 1 [facility] mg chewable 2-27 [id number] tablet by ity of tablet 00:00: mouth [place] 00 daily. Medical Branch ergocalcife 2020-0 Yes [id number] Take 1 [facility] rol, 2-27 [id number] capsule by ity of vitamin d2, 00:00: mouth [place] 1,250 mcg 00 weekly. Medical (50,000 Branch unit) capsule benzonatate 2020-0 Yes [id number] 200mg Take 2 [facility] ([place] 2-27 [id number] capsules ity of PERLES) 100 00:00: by mouth 3 [place] mg capsule 00 (three) Medica l times Branch daily as needed for Cough. aspirin 81 2020-0 Yes [id number] 81mg Take 1 [facility] mg chewable 2-27 [id number] tablet by ity of tablet 00:00: mouth [place] 00 daily. Medical Branch ergocalcife 2020-0 Yes [id number] Take 1 [facility] rol, 2-27 [id number] capsule by ity of vitamin d2, 00:00: mouth [place] 1,250 mcg 00 weekly. Medical (50,000 Branch unit) capsule benzonatate 2020-0 Yes [id number] 200mg Take 2 [facility] ([place] 2-27 [id number] capsules ity of PERLES) 100 00:00: by mouth 3 [place] mg capsule 00 (three) Medica l times Branch daily as needed for Cough. aspirin 81 2020-0 Yes [id number] 81mg Take 1 [facility] mg chewable 2-27 [id number] tablet by ity of tablet 00:00: mouth [place] 00 daily. Medical Branch ergocalcife Yes [id number] Take 1 [facility] rol, 2-27 [id number] capsule by ity of vitamin d2, 00:00: mouth [place] 1,250 mcg 00 weekly. Medical (50,000 Branch unit) capsule benzonatate Yes [id number] 200mg Take 2 [facility] ([place] 2-27 [id number] capsules ity of PERLES) 100 00:00: by mouth 3 [place] mg capsule 00 (three) Medica l times Branch daily as needed for Cough. aspirin 81 0 Yes [id number] 81mg Take 1 [facility] mg chewable 2-27 [id number] tablet by ity of tablet 00:00: mouth [place] 00 daily. Medical Branch ergocalcife Yes [id number] Take 1 [facility] rol, 2-27 [id number] capsule by ity of vitamin d2, 00:00: mouth [place] 1,250 mcg 00 weekly. Medical (50,000 Branch unit) capsule benzonatate Yes [id number] 200mg Take 2 [facility] ([place] 2-27 [id number] capsules ity of PERLES) 100 00:00: by mouth 3 [place] mg capsule 00 (three) Medica l times Branch daily as needed for Cough. aspirin 81 Yes [id number] 81mg Take 1 [facility] mg chewable 2-27 [id number] tablet by ity of tablet 00:00: mouth [place] 00 daily. Medical Branch ergocalcife Yes [id number] Take 1 [facility] rol, 2-27 [id number] capsule by ity of vitamin d2, 00:00: mouth [place] 1,250 mcg 00 weekly. Medical (50,000 Branch unit) capsule benzonatate Yes [id number] 200mg Take 2 [facility] ([place] 2-27 [id number] capsules ity of PERLES) 100 00:00: by mouth 3 [place] mg capsule 00 (three) Medica l times Branch daily as needed for Cough. aspirin 81 0 Yes [id number] 81mg Take 1 [facility] mg chewable 2-27 [id number] tablet by ity of tablet 00:00: mouth [place] 00 daily. Medical Branch ergocalcife 2021-0 Yes [id number] Take 1 [facility] rol, 2-27 [id number] capsule by ity of vitamin d2, 00:00: mouth [place] 1,250 mcg 00 weekly. Medical (50,000 Branch unit) capsule benzonatate Yes [id number] 200mg Take 2 [facility] ([place] 2-27 [id number] capsules ity of PERLES) 100 00:00: by mouth 3 [place] mg capsule 00 (three) Medica l times Branch daily as needed for Cough. aspirin 81 0 Yes [id number] 81mg Take 1 [facility] mg chewable 2-27 [id number] tablet by ity of tablet 00:00: mouth [place] 00 daily. Medical Branch ergocalcife Yes [id number] Take 1 [facility] rol, 2-27 [id number] capsule by ity of vitamin d2, 00:00: mouth [place] 1,250 mcg 00 weekly. Medical (50,000 Branch unit) capsule benzonatate Yes [id number] 200mg Take 2 [facility] ([place] 2-27 [id number] capsules ity of PERLES) 100 00:00: by mouth 3 [place] mg capsule 00 (three) Medica l times Branch daily as needed for Cough. aspirin 81 0 Yes [id number] 81mg Take 1 [facility] mg chewable 2-27 [id number] tablet by ity of tablet 00:00: mouth [place] 00 daily. Medical Branch ergocalcife 0 Yes [id number] Take 1 [facility] rol, 2-27 [id number] capsule by ity of vitamin d2, 00:00: mouth [place] 1,250 mcg 00 weekly. Medical (50,000 Branch unit) capsule benzonatate Yes [id number] 200mg Take 2 [facility] ([place] 2-27 [id number] capsules ity of PERLES) 100 00:00: by mouth 3 [place] mg capsule 00 (three) Medica l times Branch daily as needed for Cough. aspirin 81 2020-0 Yes [id number] 81mg Take 1 [facility] mg chewable 2-27 [id number] tablet by ity of tablet 00:00: mouth [place] 00 daily. Medical Branch ergocalcife 0 Yes [id number] Take 1 [facility] rol, 2-27 [id number] capsule by ity of vitamin d2, 00:00: mouth [place] 1,250 mcg 00 weekly. Medical (50,000 Branch unit) capsule benzonatate 2020-0 Yes [id number] 200mg Take 2 [facility] ([place] 2-27 [id number] capsules ity of PERLES) 100 00:00: by mouth 3 [place] mg capsule 00 (three) Medica l times Branch daily as needed for Cough. aspirin 81 2020-0 Yes [id number] 81mg Take 1 [facility] mg chewable 2-27 [id number] tablet by ity of tablet 00:00: mouth [place] 00 daily. Medical Branch ergocalcife 0 Yes [id number] Take 1 [facility] rol, 2-27 [id number] capsule by ity of vitamin d2, 00:00: mouth [place] 1,250 mcg 00 weekly. Medical (50,000 Branch unit) capsule benzonatate 2020-0 Yes [id number] 200mg Take 2 [facility] ([place] 2-27 [id number] capsules ity of PERLES) 100 00:00: by mouth 3 [place] mg capsule 00 (three) Medica l times Branch daily as needed for Cough. aspirin 81 2020-0 Yes [id number] 81mg Take 1 [facility] mg chewable 2-27 [id number] tablet by ity of tablet 00:00: mouth [place] 00 daily. Medical Branch ergocalcife 0 Yes [id number] Take 1 [facility] rol, 2-27 [id number] capsule by ity of vitamin d2, 00:00: mouth [place] 1,250 mcg 00 weekly. Medical (50,000 Branch unit) capsule benzonatate 2020-0 Yes [id number] 200mg Take 2 [facility] ([place] 2-27 [id number] capsules ity of PERLES) 100 00:00: by mouth 3 [place] mg capsule 00 (three) Medica l times Branch daily as needed for Cough. aspirin 81 2020-0 Yes [id number] 81mg Take 1 [facility] mg chewable 2-27 [id number] tablet by ity of tablet 00:00: mouth [place] 00 daily. Medical Branch ergocalcife 2020-0 Yes [id number] Take 1 [facility] rol, 2-27 [id number] capsule by ity of vitamin d2, 00:00: mouth [place] 1,250 mcg 00 weekly. Medical (50,000 Branch unit) capsule benzonatate 0 Yes [id number] 200mg Take 2 [facility] ([place] 2-27 [id number] capsules ity of PERLES) 100 00:00: by mouth 3 [place] mg capsule 00 (three) Medica l times Branch daily as needed for Cough. aspirin 81 2020-0 Yes [id number] 81mg Take 1 [facility] mg chewable 2-27 [id number] tablet by ity of tablet 00:00: mouth [place] 00 daily. Medical Branch ergocalcife 0 Yes [id number] Take 1 [facility] rol, 2-27 [id number] capsule by ity of vitamin d2, 00:00: mouth [place] 1,250 mcg 00 weekly. Medical (50,000 Branch unit) capsule benzonatate 0 Yes [id number] 200mg Take 2 [facility] ([place] 2-27 [id number] capsules ity of PERLES) 100 00:00: by mouth 3 [place] mg capsule 00 (three) Medica l times Branch daily as needed for Cough. aspirin 81 0 Yes [id number] 81mg Take 1 [facility] mg chewable 2-27 [id number] tablet by ity of tablet 00:00: mouth [place] 00 daily. Medical Branch ergocalcife 0 Yes [id number] Take 1 [facility] rol, 2-27 [id number] capsule by ity of vitamin d2, 00:00: mouth [place] 1,250 mcg 00 weekly. Medical (50,000 Branch unit) capsule benzonatate 2020-0 Yes [id number] 200mg Take 2 [facility] ([place] 2-27 [id number] capsules ity of PERLES) 100 00:00: by mouth 3 [place] mg capsule 00 (three) Medica l times Branch daily as needed for Cough. aspirin 81 2020-0 Yes [id number] 81mg Take 1 [facility] mg chewable 2-27 [id number] tablet by ity of tablet 00:00: mouth [place] 00 daily. Medical Branch ergocalcife 0 Yes [id number] Take 1 [facility] rol, 2-27 [id number] capsule by ity of vitamin d2, 00:00: mouth [place] 1,250 mcg 00 weekly. Medical (50,000 Branch unit) capsule benzonatate Yes [id number] 200mg Take 2 [facility] ([place] 2-27 [id number] capsules ity of PERLES) 100 00:00: by mouth 3 [place] mg capsule 00 (three) Medica l times Branch daily as needed for Cough. aspirin 81 0 Yes [id number] 81mg Take 1 [facility] mg chewable 2-27 [id number] tablet by ity of tablet 00:00: mouth [place] 00 daily. Medical Branch ergocalcife Yes [id number] Take 1 [facility] rol, 2-27 [id number] capsule by ity of vitamin d2, 00:00: mouth [place] 1,250 mcg 00 weekly. Medical (50,000 Branch unit) capsule benzonatate Yes [id number] 200mg Take 2 [facility] ([place] 2-27 [id number] capsules ity of PERLES) 100 00:00: by mouth 3 [place] mg capsule 00 (three) Medica l times Branch daily as needed for Cough. aspirin Yes [id number] 81mg Take 1 [facility] mg chewable 2-27 [id number] tablet by ity of tablet 00:00: mouth [place] 00 daily. Medical Branch ergocalcife Yes [id number] Take 1 [facility] rol, 2-27 [id number] capsule by ity of vitamin d2, 00:00: mouth [place] 1,250 mcg 00 weekly. Medical (50,000 Branch unit) capsule benzonatate Yes [id number] 200mg Take 2 [facility] ([place] 2-27 [id number] capsules ity of PERLES) 100 00:00: by mouth 3 [place] mg capsule 00 (three) Medica l times Branch daily as needed for Cough. aspirin 81 Yes [id number] 81mg Take 1 [facility] mg chewable 2-27 [id number] tablet by ity of tablet 00:00: mouth [place] 00 daily. Medical Branch ergocalcife Yes [id number] Take 1 [facility] rol, 2-27 [id number] capsule by ity of vitamin d2, 00:00: mouth [place] 1,250 mcg 00 weekly. Medical (50,000 Branch unit) capsule benzonatate 2021-0 Yes [id number] 200mg Take 2 [facility] ([place] 2-27 [id number] capsules ity of PERLES) 100 00:00: by mouth 3 [place] mg capsule 00 (three) Medica l times Branch daily as needed for Cough. aspirin 81 2020-0 Yes [id number] 81mg Take 1 [facility] mg chewable 2-27 [id number] tablet by ity of tablet 00:00: mouth [place] 00 daily. Medical Branch ergocalcife 0 Yes [id number] Take 1 [facility] rol, 2-27 [id number] capsule by ity of vitamin d2, 00:00: mouth [place] 1,250 mcg 00 weekly. Medical (50,000 Branch unit) capsule benzonatate 0 Yes [id number] 200mg Take 2 [facility] ([place] 2-27 [id number] capsules ity of PERLES) 100 00:00: by mouth 3 [place] mg capsule 00 (three) Medica l times Branch daily as needed for Cough. aspirin 81 0 Yes [id number] 81mg Take 1 [facility] mg chewable 2-27 [id number] tablet by ity of tablet 00:00: mouth [place] 00 daily. Medical Branch ergocalcife 0 Yes [id number] Take 1 [facility] rol, 2-27 [id number] capsule by ity of vitamin d2, 00:00: mouth [place] 1,250 mcg 00 weekly. Medical (50,000 Branch unit) capsule benzonatate 2020-0 Yes [id number] 200mg Take 2 [facility] ([place] 2-27 [id number] capsules ity of PERLES) 100 00:00: by mouth 3 [place] mg capsule 00 (three) Medica l times Branch daily as needed for Cough. aspirin 81 0 Yes [id number] 81mg Take 1 [facility] mg chewable 2-27 [id number] tablet by ity of tablet 00:00: mouth [place] 00 daily. Medical Branch ergocalcife 0 Yes [id number] Take 1 [facility] rol, 2-27 [id number] capsule by ity of vitamin d2, 00:00: mouth [place] 1,250 mcg 00 weekly. Medical (50,000 Branch unit) capsule benzonatate 2020-0 Yes [id number] 200mg Take 2 [facility] ([place] 2-27 [id number] capsules ity of PERLES) 100 00:00: by mouth 3 [place] mg capsule 00 (three) Medica l times Branch daily as needed for Cough. aspirin 81 2020-0 Yes [id number] 81mg Take 1 [facility] mg chewable 2-27 [id number] tablet by ity of tablet 00:00: mouth [place] 00 daily. Medical Branch ergocalcife 0 Yes [id number] Take 1 [facility] rol, 2-27 [id number] capsule by ity of vitamin d2, 00:00: mouth [place] 1,250 mcg 00 weekly. Medical (50,000 Branch unit) capsule benzonatate 2020-0 Yes [id number] 200mg Take 2 [facility] ([place] 2-27 [id number] capsules ity of PERLES) 100 00:00: by mouth 3 [place] mg capsule 00 (three) Medica l times Branch daily as needed for Cough. aspirin 81 0 Yes [id number] 81mg Take 1 [facility] mg chewable 2-27 [id number] tablet by ity of tablet 00:00: mouth [place] 00 daily. Medical Branch ergocalcife 0 Yes [id number] Take 1 [facility] rol, 2-27 [id number] capsule by ity of vitamin d2, 00:00: mouth [place] 1,250 mcg 00 weekly. Medical (50,000 Branch unit) capsule benzonatate 2020-0 Yes [id number] 200mg Take 2 [facility] ([place] 2-27 [id number] capsules ity of PERLES) 100 00:00: by mouth 3 [place] mg capsule 00 (three) Medica l times Branch daily as needed for Cough. aspirin 81 2020-0 Yes [id number] 81mg Take 1 [facility] mg chewable 2-27 [id number] tablet by ity of tablet 00:00: mouth [place] 00 daily. Medical Branch ergocalcife 0 Yes [id number] Take 1 [facility] rol, 2-27 [id number] capsule by ity of vitamin d2, 00:00: mouth [place] 1,250 mcg 00 weekly. Medical (50,000 Branch unit) capsule benzonatate 2020-0 Yes [id number] 200mg Take 2 [facility] ([place] 2-27 [id number] capsules ity of PERLES) 100 00:00: by mouth 3 [place] mg capsule 00 (three) Medica l times Branch daily as needed for Cough. aspirin 81 0 Yes [id number] 81mg Take 1 [facility] mg chewable 2-27 [id number] tablet by ity of tablet 00:00: mouth [place] 00 daily. Medical Branch ergocalcife Yes [id number] Take 1 [facility] rol, 2-27 [id number] capsule by ity of vitamin d2, 00:00: mouth [place] 1,250 mcg 00 weekly. Medical (50,000 Branch unit) capsule benzonatate Yes [id number] 200mg Take 2 [facility] ([place] 2-27 [id number] capsules ity of PERLES) 100 00:00: by mouth 3 [place] mg capsule 00 (three) Medica l times Branch daily as needed for Cough. aspirin 81 Yes [id number] 81mg Take 1 [facility] mg chewable 2-27 [id number] tablet by ity of tablet 00:00: mouth [place] 00 daily. Medical Branch ergocalcife Yes [id number] Take 1 [facility] rol, 2-27 [id number] capsule by ity of vitamin d2, 00:00: mouth [place] 1,250 mcg 00 weekly. Medical (50,000 Branch unit) capsule benzonatate Yes [id number] 200mg Take 2 [facility] ([place] 2-27 [id number] capsules ity of PERLES) 100 00:00: by mouth 3 [place] mg capsule 00 (three) Medica l times Branch daily as needed for Cough. aspirin 81 Yes [id number] 81mg Take 1 [facility] mg chewable 2-27 [id number] tablet by ity of tablet 00:00: mouth [place] 00 daily. Medical Branch ergocalcife Yes [id number] Take 1 [facility] rol, 2-27 [id number] capsule by ity of vitamin d2, 00:00: mouth [place] 1,250 mcg 00 weekly. Medical (50,000 Branch unit) capsule benzonatate 0 Yes [id number] 200mg Take 2 [facility] ([place] 2-27 [id number] capsules ity of PERLES) 100 00:00: by mouth 3 [place] mg capsule 00 (three) Medica l times Branch daily as needed for Cough. aspirin 81 0 Yes [id number] 81mg Take 1 [facility] mg chewable 2-27 [id number] tablet by ity of tablet 00:00: mouth [place] 00 daily. Medical Branch ergocalcife Yes [id number] Take 1 [facility] rol, 2-27 [id number] capsule by ity of vitamin d2, 00:00: mouth [place] 1,250 mcg 00 weekly. Medical (50,000 Branch unit) capsule benzonatate 0 Yes [id number] 200mg Take 2 [facility] ([place] 2-27 [id number] capsules ity of PERLES) 100 00:00: by mouth 3 [place] mg capsule 00 (three) Medica l times Branch daily as needed for Cough. aspirin 0 Yes [id number] 81mg Take 1 [facility] mg chewable 2-27 [id number] tablet by ity of tablet 00:00: mouth [place] 00 daily. Medical Branch ergocalcife Yes [id number] Take 1 [facility] rol, 2-27 [id number] capsule by ity of vitamin d2, 00:00: mouth [place] 1,250 mcg 00 weekly. Medical (50,000 Branch unit) capsule benzonatate Yes [id number] 200mg Take 2 [facility] ([place] 2-27 [id number] capsules ity of PERLES) 100 00:00: by mouth 3 [place] mg capsule 00 (three) Medica l times Branch daily as needed for Cough. aspirin Yes [id number] 81mg Take 1 [facility] mg chewable 2-27 [id number] tablet by ity of tablet 00:00: mouth [place] 00 daily. Medical Branch ergocalcife Yes [id number] Take 1 [facility] rol, 2-27 [id number] capsule by ity of vitamin d2, 00:00: mouth [place] 1,250 mcg 00 weekly. Medical (50,000 Branch unit) capsule benzonatate 0 Yes [id number] 200mg Take 2 [facility] ([place] 2-27 [id number] capsules ity of PERLES) 100 00:00: by mouth 3 [place] mg capsule 00 (three) Medica l times Branch daily as needed for Cough. aspirin 81 Yes [id number] 81mg Take 1 [facility] mg chewable 2-27 [id number] tablet by ity of tablet 00:00: mouth [place] 00 daily. Medical Branch ergocalcife Yes [id number] Take 1 [facility] rol, 2-27 [id number] capsule by ity of vitamin d2, 00:00: mouth [place] 1,250 mcg 00 weekly. Medical (50,000 Branch unit) capsule benzonatate Yes [id number] 200mg Take 2 [facility] ([place] 2-27 [id number] capsules ity of PERLES) 100 00:00: by mouth 3 [place] mg capsule 00 (three) Medica l times Branch daily as needed for Cough. aspirin Yes [id number] 81mg Take 1 [facility] mg chewable 2-27 [id number] tablet by ity of tablet 00:00: mouth [place] 00 daily. Medical Branch ergocalcife Yes [id number] Take 1 [facility] rol, 2-27 [id number] capsule by ity of vitamin d2, 00:00: mouth [place] 1,250 mcg 00 weekly. Medical (50,000 Branch unit) capsule benzonatate Yes [id number] 200mg Take 2 [facility] ([place] 2-27 [id number] capsules ity of PERLES) 100 00:00: by mouth 3 [place] mg capsule 00 (three) Medica l times Branch daily as needed for Cough. aspirin Yes [id number] 81mg Take 1 [facility] mg chewable 2-27 [id number] tablet by ity of tablet 00:00: mouth [place] 00 daily. Medical Branch ergocalcife Yes [id number] Take 1 [facility] rol, 2-27 [id number] capsule by ity of vitamin d2, 00:00: mouth [place] 1,250 mcg 00 weekly. Medical (50,000 Branch unit) capsule benzonatate Yes [id number] 200mg Take 2 [facility] ([place] 2-27 [id number] capsules ity of PERLES) 100 00:00: by mouth 3 [place] mg capsule 00 (three) Medica l times Branch daily as needed for Cough. aspirin 81 Yes [id number] 81mg Take 1 [facility] mg chewable 2-27 [id number] tablet by ity of tablet 00:00: mouth [place] 00 daily. Medical Branch ergocalcife Yes [id number] Take 1 [facility] rol, 2-27 [id number] capsule by ity of vitamin d2, 00:00: mouth [place] 1,250 mcg 00 weekly. Medical (50,000 Branch unit) capsule benzonatate Yes [id number] 200mg Take 2 [facility] ([place] 2-27 [id number] capsules ity of PERLES) 100 00:00: by mouth 3 [place] mg capsule 00 (three) Medica l times Branch daily as needed for Cough. aspirin 81 Yes [id number] 81mg Take 1 [facility] mg chewable 2-27 [id number] tablet by ity of tablet 00:00: mouth [place] 00 daily. Medical Branch ergocalcife Yes [id number] Take 1 [facility] rol, 2-27 [id number] capsule by ity of vitamin d2, 00:00: mouth [place] 1,250 mcg 00 weekly. Medical (50,000 Branch unit) capsule benzonatate Yes [id number] 200mg Take 2 [facility] ([place] 2-27 [id number] capsules ity of PERLES) 100 00:00: by mouth 3 [place] mg capsule 00 (three) Medica l times Branch daily as needed for Cough. aspirin 81 Yes [id number] 81mg Take 1 [facility] mg chewable 2-27 [id number] tablet by ity of tablet 00:00: mouth [place] 00 daily. Medical Branch ergocalcife Yes [id number] Take 1 [facility] rol, 2-27 [id number] capsule by ity of vitamin d2, 00:00: mouth [place] 1,250 mcg 00 weekly. Medical (50,000 Branch unit) capsule benzonatate Yes [id number] 200mg Take 2 [facility] ([place] 2-27 [id number] capsules ity of PERLES) 100 00:00: by mouth 3 [place] mg capsule 00 (three) Medica l times Branch daily as needed for Cough. aspirin 81 0 Yes [id number] 81mg Take 1 [facility] mg chewable 2-27 [id number] tablet by ity of tablet 00:00: mouth [place] 00 daily. Medical Branch ergocalcife Yes [id number] Take 1 [facility] rol, 2-27 [id number] capsule by ity of vitamin d2, 00:00: mouth [place] 1,250 mcg 00 weekly. Medical (50,000 Branch unit) capsule benzonatate Yes [id number] 200mg Take 2 [facility] ([place] 2-27 [id number] capsules ity of PERLES) 100 00:00: by mouth 3 [place] mg capsule 00 (three) Medica l times Branch daily as needed for Cough. aspirin 81 0 Yes [id number] 81mg Take 1 [facility] mg chewable 2-27 [id number] tablet by ity of tablet 00:00: mouth [place] 00 daily. Medical Branch ergocalcife Yes [id number] Take 1 [facility] rol, 2-27 [id number] capsule by ity of vitamin d2, 00:00: mouth [place] 1,250 mcg 00 weekly. Medical (50,000 Branch unit) capsule benzonatate Yes [id number] 200mg Take 2 [facility] ([place] 2-27 [id number] capsules ity of PERLES) 100 00:00: by mouth 3 [place] mg capsule 00 (three) Medica l times Branch daily as needed for Cough. aspirin 81 0 Yes [id number] 81mg Take 1 [facility] mg chewable 2-27 [id number] tablet by ity of tablet 00:00: mouth [place] 00 daily. Medical Branch ergocalcife Yes [id number] Take 1 [facility] rol, 2-27 [id number] capsule by ity of vitamin d2, 00:00: mouth [place] 1,250 mcg 00 weekly. Medical (50,000 Branch unit) capsule benzonatate Yes [id number] 200mg Take 2 [facility] ([place] 2-27 [id number] capsules ity of PERLES) 100 00:00: by mouth 3 [place] mg capsule 00 (three) Medica l times Branch daily as needed for Cough. aspirin 81 0 Yes [id number] 81mg Take 1 [facility] mg chewable 2-27 [id number] tablet by ity of tablet 00:00: mouth [place] 00 daily. Medical Branch dexAMETHaso 2020- No [id number] 4mg Take 1 [facility] ne 4 mg 06-15 [id number] tablet by ity of tablet 00:00: 05:59 mouth [place] 00 :00 daily with Medical breakfast Branch for 5 days. dexAMETHaso 2020- No [id number] 4mg Take 1 [facility] ne 4 mg 06-15 [id number] tablet by ity of tablet 00:00: 05:59 mouth [place] 00 :00 daily with Medical breakfast Branch for 5 days. enoxaparin Yes 40mg 40 mg, Unive rs (LOVENOX) 06-14 Subcutaneo ity of injection 15:00: [place], [place]ILY, [place] 40 mg 00 First dose Medical on Wed [place] 06/14/20 at 0900, Until Discontinu ed, Routine iohexol 2020- No 100mL 100 mL, Unive rs (OMNIPAQUE 06-13 Intravenou it y of 350 14:30: 14:07 s, ONCE, 1 [place] BULK-100 00 :00 dose, [place] [facility] mL) 06/13/20 at Branch injection 0830, 100 mL Routine enoxaparin 2020- No 1mg/kg 100 mg Un nighat (LOVENOX) 06-13 (rounded ity o f injection 02:00: 07:50 from 101 [place] as 100 mg 00 :01 mg = 1 Medical mg/kg ?101 Branch kg), Subcutaneo us, Q12H, First dose (after last modificati on) on [facility] 06/12/20 at 2000, Until Discontinu ed, Routine enoxaparin 2020- No 60mg 60 mg, Univ ers (LOVENOX) 06-12 Subcutaneo ity of injection 19:15: 19:21 us, ONCE [place] 60 mg 00 :00 NOW, 1 Medical dose, [facility] 06/12/20 at 1315, Routine tc 2020- No 7mCi 7 Univers 99m-albumin 06-12 millicurie i ty of (DRAXIMAGE 18:30: 18:20 , [place] MAA) 00 :00 Intravenou Medical injection 7 s, ONCE, 1 Br anch millicurie dose, 06/12/20 at 1230, Routine furosemide 0 Yes 20mg 20 mg, IV Un nighat (LASIX) 2-24 Push, ity of injection 18:00: DAILY, [place] [...] Pain (scale 4-6), Pain (scale 7-10) ascorbic 0 Yes 1000mg 1,000 mg, Un nighat acid 2-24 Oral, ity of (vitamin C) 15:00: DAILY, [place] (VITAMIN C) 00 First dose Me dical tablet on Wed Branch 1,000 mg 06/12/20 at 0900, Until Discontinu ed, Routine zinc Yes 220mg 220 mg, Univers sulfate 2-24 Oral, ity of (ORAZINC) 15:00: DAILY, [place] capsule 220 00 First dose Me dical [...] 00 First dose Medical injection on Wed 80 Units 06/12/20 at 0900, Until Discontinu ed QUEtiapine Yes 800mg 800 mg, Uni vers (SEROQUEL) 2-24 Oral, QHS, ity of tablet 800 03:00: First dose [place] mg 00 on [facility] 06/11/20 at [place] 2100, Until Discontinu ed, Routine metoprolol Yes 50mg 50 mg, Unive rs succinate 2-24 Oral, BID, ity of XL (TOPROL 02:00: First dose [place] XL) tablet 00 on [facility] 50 mg 06/11/20 at [place] 2000, Until Discontinu ed, Routine cloNIDine Yes .2mg 0.2 mg, Unive rs (CATAPRES) 2-24 Oral, TID, ity of tablet 0.2 02:00: First dose [place] mg 00 on [facility] 06/11/20 at [place] 1999, Until Discontinu ed, Routine albuterol-i Yes 2{puff} 2 Puff, Univers pratropium -24 Inhalation ity of (COMBIVENT 02:00: , QID, [place] RESPIMAT) 00 First dose Medi antione 20-100 on Wed [place] mcg/actuati 06/11/20 at on inhaler 1999, 2 Puff Until Discontinu ed
Is this order for a patient with suspected or confirmed COVID-19 infection? Yes iron 2020- No 1000mg 1,000 mg, Unive rs dextran 06-12 IV ity of (INFED) 01:45: 07:54 Infusion, [place] 1,000 mg in 00 :00 ONCE, 1 Medic al NaCl 0.9% dose, [facility] h (NS) 500 mL 06/11/20 at IV infusion 1945, 500 mL magnesium 2020- No 1g 1 g, IV Univ ers sulfate in 06-12 Piggyback, it y of D5W 1 01:45: 04:48 ONCE, 1 [place] gram/100 mL 00 :00 dose, [place] [facility] [facility]U [facility] 06/11/20 at [facility] Piggyback 1 1945, 100 g mL HYDROcodone 2020- No 1{tbl} 1 tablet, Univers -acetaminop 06-12 Oral, ity of hen (NORCO 00:30: 00:33 ONCE, 1 [place] 5) 5-325 mg 00 :00 dose, Tue Med ical tablet 1 06/11/20 at [facility] h tablet 1830, Routine proMETHazin Yes 12.5mg 12.5 mg, Univers e 06-11 IV ity of (PHENERGAN) 23:42: [facility] [place] 12.5 mg in 03 Q6HPRN, Medica l [...] Routine, Pain (scale 7-10) Sliding Yes Subcutaneo [facility] ers Scale -23 us, TID ity of Insulin - 23:00: MEALS+HS, [place] Lispro 00 First dose Medical (HumaLOG) + on [facility] Fsbg 06/11/20 at Testing 1700, Until Discontinu ed, Routine enoxaparin 2020- No 40mg 40 mg, [facility] ers (LOVENOX) 06-1124 Subcutaneo ity of injection 23:00: 18:04 us, DAILY, [place] 40 mg 00 :51 First dose Medical on [facility] 06/11/20 at 1700, Until Discontinu ed, Routine codeine-gua Yes 10mL 10 mL, [facility] ers ifenesin 06-11 Oral, ity of (ROBITUSSIN 22:37: Q6HPRN, [place] AC) 10-100 32 Starting Medic al mg/5 mL [facility] solution 10 06/11/20 at mL 1637, Until Discontinu ed, Routine, Cough acetaminoph Yes 650mg 650 mg, [facility] [place] en 06-11 Oral, ity of (TYLENOL) 22:32: Q6HPRN, [place] tablet 650 47 Starting Medic al mg [facility] 06/11/20 at 1632, Until Discontinu ed, Routine, Pain (scale 1-3) diphenhydrA 2020- No 25mg 25 mg, Uni vers MINE 06-11 Slow IV ity of (BENADRYL) 21:00: 19:58 [place], [place] injection 00 :00 ONCE, 1 Medical 25 mg dose, [facility] 06/11/20 at 1500, STAT metoclopram 2020- No 10mg 10 mg, Uni vers chrissy HCl 06-11 Slow IV ity of (REGLAN) 21:00: 19:58 [place], [place] injection 00 :00 ONCE, 1 Medical 10 mg dose, [facility] 06/11/20 at 1500, [place] HYDROcodone 202- No 1{tbl} 1 tablet, Univers -acetaminop 06-11 Oral, ity of hen (NORCO 19:30: 18:28 ONCE, 1 [place] 5) 5-325 mg 00 :00 dose, [facility] Med ical tablet 1 2/23/21 at [facility] tablet 1330, HELENE NaCl 0.9% 2020- No 1000mL at 999 Uni vers (NS) bolus 06-11 mL/hr, ity of infusion 18:30: 18:28 1,000 mL, [place] as 1,000 mL 00 :00 IV Medical Infusion, [place] ONCE, 1 dose, 06/11/20 at 1230, HELENE ondansetron 2020- No 4mg 4 mg, Slow Univers (ZOFRAN 06-11 IV Push, ity of (PF)) 18:15: 17:14 ONCE, 1 [place] injection 4 00 :00 dose, Tue Med ical mg 06/11/20 at [place] 1215, HELENE codeine-gua 2020- No 10mL 10 mL, Uni vers ifenesin 06-11 Oral, ity of (ROBITUSSIN 17:45: 17:05 ONCE, 1 [place] AC) 10-100 00 :00 dose, Tue Medi antione mg/5 mL 06/11/20 at [place] solution 10 1145, HELENE mL acetaminoph 2020- No 1000mg 1,000 mg, Univers en 06-11 Oral, ity of (TYLENOL) 17:45: 16:50 ONCE, 1 [place] tablet 00 :00 dose, Tue Medical 1,000 mg 06/11/20 at [facility] h 1145, HEL[place] albuterol 2020- No 2.5mg 2.5 mg, Uni vers (PROVENTIL) 06-11 Inhalation i ty of 2.5 mg /3 16:45: 16:48 , ONCE, 1 [place] mL (0.083 00 :00 dose, Tue Medic al %) 06/11/20 at [place] nebulizer 1045, STAT solution 2.5 mg NaCl 0.9% 2020- No 1000mL at 999 Uni vers (NS) bolus 06-11 mL/hr, ity of infusion 16:45: 19:31 1,000 mL, [place] 1,000 mL 00 :00 IV Medical Infusion, [place] ONCE, 1 dose, 06/11/20 at 1045, HELENE [...] Take 1 Univer s (ULTRAM) 50 7-10 -23 tablet by it y of mg tablet [...] Sleep. INSULIN 2015-04 Yes inject Univers DEGLUDEC -27 under the ity of (TRESIBA 04:30: skin. [...] tablet 00 (two) Medical times Branch daily. ondansetron 2015-04 Yes 4mg Take 1 Univ ers (ZOFRAN, 1-27 tablet by ity of HYDROCHLORI 00:00: mouth [place] DE,) 4 mg 00 every 8 Medical tablet (eight) Branch hours as needed for Nausea and Vomiting (N/V). traMADOL 2015-04 Yes 50mg Take 1 Univers (ULTRAM) 50 1-27 tablet by ity of mg tablet 00:00: mouth [place] 00 every 6 Medical (six) Branch hours as needed for Pain (scale 7-10). ondansetron 2015- Yes 4mg Take 1 Univ ers (ZOFRAN, [...] needed for Nausea and Vomiting (N/V). ondansetron 2015- Yes 4mg Take 1 Univ ers (ZOFRAN, 1-27 tablet by ity of HYDROCHLORI 00:00: mouth [place] DE,) 4 mg 00 every 8 Medical tablet (eight) Branch hours as needed for Nausea and Vomiting (N/V). ondansetron 2015- Yes 4mg Take 1 Univ ers (ZOFRAN, [...] needed for Nausea and Vomiting (N/V). ondansetron 2016-0 Yes 4mg Take 1 Tab Univers (ZOFRAN, 4-05 by mouth ity of HYDROCHLORI 00:00: every 8 [place] DE,) 4 mg 00 (eight) Medical tablet hours as Branch needed for Nausea and Vomiting (N/V). ondansetron 2016-0 Yes 4mg Take 1 Tab Univers (ZOFRAN, 4-05 by mouth ity of HYDROCHLORI 00:00: every 8 [place] DE,) 4 mg 00 (eight) Medical tablet hours as Branch needed for Nausea and Vomiting (N/V). ondansetron 2016-0 Yes 4mg Take 1 Tab Univers (ZOFRAN, 4-05 by mouth ity of HYDROCHLORI 00:00: every 8 [place] DE,) 4 mg 00 (eight) Medical tablet hours as Branch needed for Nausea and Vomiting (N/V). ondansetron 2016-0 Yes 4mg Take 1 Tab Univers (ZOFRAN, 4-05 by mouth ity of HYDROCHLORI 00:00: every 8 [place] DE,) 4 mg 00 (eight) Medical tablet hours as Branch needed for Nausea and Vomiting (N/V). ondansetron 2016-0 Yes 4mg Take 1 Tab Univers (ZOFRAN, 4-05 by mouth ity of HYDROCHLORI 00:00: every 8 [place] DE,) 4 mg 00 (eight) Medical tablet hours as Branch needed for Nausea and Vomiting (N/V). ondansetron 2016-0 Yes 4mg Take 1 Tab Univers (ZOFRAN, 4-05 by mouth ity of HYDROCHLORI 00:00: every 8 [place] DE,) 4 mg 00 (eight) Medical tablet hours as Branch needed for Nausea and Vomiting (N/V). ondansetron 2016-0 Yes 4mg Take 1 Tab Univers (ZOFRAN, 4-05 by mouth ity of HYDROCHLORI 00:00: every 8 [place] DE,) 4 mg 00 (eight) Medical tablet hours as Branch needed for Nausea and Vomiting (N/V). ondansetron 2016-0 Yes 4mg Take 1 Tab Univers (ZOFRAN, 4-05 by mouth ity of HYDROCHLORI 00:00: every 8 [place] DE,) 4 mg 00 (eight) Medical tablet hours as Branch needed for Nausea and Vomiting (N/V). ondansetron 2016-0 Yes 4mg Take 1 Tab Univers (ZOFRAN, 4-05 by mouth ity of HYDROCHLORI 00:00: every 8 [place] DE,) 4 mg 00 (eight) Medical tablet hours as Branch needed for Nausea and Vomiting (N/V). ondansetron 2016-0 Yes 4mg Take 1 Tab Univers (ZOFRAN, 4-05 by mouth ity of HYDROCHLORI 00:00: every 8 [place] DE,) 4 mg 00 (eight) Medical tablet hours as Branch needed for Nausea and Vomiting (N/V). ondansetron 2016-0 Yes 4mg Take 1 Tab Univers (ZOFRAN, 4-05 by mouth ity of HYDROCHLORI 00:00: every 8 [place] DE,) 4 mg 00 (eight) Medical tablet hours as Branch needed for Nausea and Vomiting (N/V). ondansetron 2016-0 Yes 4mg Take 1 Tab Univers (ZOFRAN, 4-05 by mouth ity of HYDROCHLORI 00:00: every 8 [place] DE,) 4 mg 00 (eight) Medical tablet hours as Branch needed for Nausea and Vomiting (N/V). ondansetron 2016-0 Yes 4mg Take 1 Tab Univers (ZOFRAN, 4-05 by mouth ity of HYDROCHLORI 00:00: every 8 [place] DE,) 4 mg 00 (eight) Medical tablet hours as Branch needed for Nausea and Vomiting (N/V). ondansetron 2016-0 Yes 4mg Take 1 Tab Univers (ZOFRAN, 4-05 by mouth ity of HYDROCHLORI 00:00: every 8 [place] DE,) 4 mg 00 (eight) Medical tablet hours as Branch needed for Nausea and Vomiting (N/V). ondansetron 2016-0 Yes 4mg Take 1 Tab Univers (ZOFRAN, 4-05 by mouth ity of HYDROCHLORI 00:00: every 8 [place] DE,) 4 mg 00 (eight) Medical tablet hours as Branch needed for Nausea and Vomiting (N/V). ondansetron 2016-0 Yes 4mg Take 1 Tab Univers (ZOFRAN, 4-05 by mouth ity of HYDROCHLORI 00:00: every 8 [place] DE,) 4 mg 00 (eight) Medical tablet hours as Branch needed for Nausea and Vomiting (N/V). ondansetron 2016-0 Yes 4mg Take 1 Tab Univers (ZOFRAN, 4-05 by mouth ity of HYDROCHLORI 00:00: every 8 [place] DE,) 4 mg 00 (eight) Medical tablet hours as Branch needed for Nausea and Vomiting (N/V). ondansetron 2016-0 Yes 4mg Take 1 Tab Univers (ZOFRAN, 4-05 by mouth ity of HYDROCHLORI 00:00: every 8 [place] DE,) 4 mg 00 (eight) Medical tablet hours as Branch needed for Nausea and Vomiting (N/V). ondansetron 2016-0 Yes 4mg Take 1 Tab Univers (ZOFRAN, 4-05 by mouth ity of HYDROCHLORI 00:00: every 8 [place] DE,) 4 mg 00 (eight) Medical tablet hours as Branch needed for Nausea and Vomiting (N/V). ondansetron 2016-0 Yes 4mg Take 1 Tab Univers (ZOFRAN, 4-05 by mouth ity of HYDROCHLORI 00:00: every 8 [place] DE,) 4 mg 00 (eight) Medical tablet hours as Branch needed for Nausea and Vomiting (N/V). acetaminoph 2016-0 Yes 1{tbl} Take 1 Tab Univers en-codeine 4-05 by mouth ity o f (TYLENOL-CO 00:00: every 6 [place] DEINE #3) 00 (six) Medical 300-30 mg hours as Branch tablet needed for Pain (scale 4-6). ondansetron 2016-0 Yes 4mg Take 1 Tab Univers (ZOFRAN, 4-05 by mouth ity of HYDROCHLORI 00:00: every 8 [place] DE,) 4 mg 00 (eight) Medical tablet hours as Branch needed for Nausea and Vomiting (N/V). ondansetron 2016-0 Yes 4mg Take 1 Tab Univers (ZOFRAN, 4-05 by mouth ity of HYDROCHLORI 00:00: every 8 [place] DE,) 4 mg 00 (eight) Medical tablet hours as Branch needed for Nausea and Vomiting (N/V). ondansetron 2016-0 Yes 4mg Take 1 Tab Univers (ZOFRAN, 4-05 by mouth ity of HYDROCHLORI 00:00: every 8 [place] DE,) 4 mg 00 (eight) Medical tablet hours as Branch needed for Nausea and Vomiting (N/V). ondansetron 2016-0 Yes 4mg Take 1 Tab Univers (ZOFRAN, 4-05 by mouth ity of HYDROCHLORI 00:00: every 8 [place] DE,) 4 mg 00 (eight) Medical tablet hours as Branch needed for Nausea and Vomiting (N/V). ondansetron 2016-0 Yes 4mg Take 1 Tab Univers (ZOFRAN, 4-05 by mouth ity of HYDROCHLORI 00:00: every 8 [place] DE,) 4 mg 00 (eight) Medical tablet hours as Branch needed for Nausea and Vomiting (N/V). ondansetron 2016-0 Yes 4mg Take 1 Tab Univers (ZOFRAN, 4-05 by mouth ity of HYDROCHLORI 00:00: every 8 [place] DE,) 4 mg 00 (eight) Medical tablet hours as Branch needed for Nausea and Vomiting (N/V). ondansetron 2016-0 Yes 4mg Take 1 Tab Univers (ZOFRAN, 4-05 by mouth ity of HYDROCHLORI 00:00: every 8 [place] DE,) 4 mg 00 (eight) Medical tablet hours as Branch needed for Nausea and Vomiting (N/V). ondansetron 2016-0 Yes 4mg Take 1 Tab Univers (ZOFRAN, 4-05 by mouth ity of HYDROCHLORI 00:00: every 8 [place] DE,) 4 mg 00 (eight) Medical tablet hours as Branch needed for Nausea and Vomiting (N/V). ondansetron 2016-0 Yes 4mg Take 1 Tab Univers (ZOFRAN, 4-05 by mouth ity of HYDROCHLORI 00:00: every 8 [place] DE,) 4 mg 00 (eight) Medical tablet hours as Branch needed for Nausea and Vomiting (N/V). ondansetron 2016-0 Yes 4mg Take 1 Tab Univers (ZOFRAN, 4-05 by mouth ity of HYDROCHLORI 00:00: every 8 [place] DE,) 4 mg 00 (eight) Medical tablet hours as Branch needed for Nausea and Vomiting (N/V). ondansetron 2016-0 Yes 4mg Take 1 Tab Univers (ZOFRAN, 4-05 by mouth ity of HYDROCHLORI 00:00: every 8 [place] DE,) 4 mg 00 (eight) Medical tablet hours as Branch needed for Nausea and Vomiting (N/V). ondansetron 2016-0 Yes 4mg Take 1 Tab Univers (ZOFRAN, 4-05 by mouth ity of HYDROCHLORI 00:00: every 8 [place] DE,) 4 mg 00 (eight) Medical tablet hours as Branch needed for Nausea and Vomiting (N/V). ondansetron 2016-0 Yes 4mg Take 1 Tab Univers (ZOFRAN, 4-05 by mouth ity of HYDROCHLORI 00:00: every 8 [place] DE,) 4 mg 00 (eight) Medical tablet hours as Branch needed for Nausea and Vomiting (N/V). ondansetron 2016-0 Yes 4mg Take 1 Tab Univers (ZOFRAN, 4-05 by mouth ity of HYDROCHLORI 00:00: every 8 [place] DE,) 4 mg 00 (eight) Medical tablet hours as Branch needed for Nausea and Vomiting (N/V). ondansetron 2016-0 Yes 4mg Take 1 Tab Univers (ZOFRAN, 4-05 by mouth ity of HYDROCHLORI 00:00: every 8 [place] DE,) 4 mg 00 (eight) Medical tablet hours as Branch needed for Nausea and Vomiting (N/V). ondansetron 2016-0 Yes 4mg Take 1 Tab Univers (ZOFRAN, 4-05 by mouth ity of HYDROCHLORI 00:00: every 8 [place] DE,) 4 mg 00 (eight) Medical tablet hours as Branch needed for Nausea and Vomiting (N/V). ondansetron 2016-0 Yes 4mg Take 1 Tab Univers (ZOFRAN, 4-05 by mouth ity of HYDROCHLORI 00:00: every 8 [place] DE,) 4 mg 00 (eight) Medical tablet hours as Branch needed for Nausea and Vomiting (N/V). ondansetron 2016-0 Yes 4mg Take 1 Tab Univers (ZOFRAN, 4-05 by mouth ity of HYDROCHLORI 00:00: every 8 [place] DE,) 4 mg 00 (eight) Medical tablet hours as Branch needed for Nausea and Vomiting (N/V). ondansetron 2016-0 Yes 4mg Take 1 Tab Univers (ZOFRAN, [...] No 400mg Take 1 Cap Univers (NEURONTIN) 202 - by mouth 3 i ty of 400 [...] Branch mcg/Actuati on inhaler traMADOL 2009-04 Yes [id number] 50mg Take 1 Tab Univers (ULTRAM) 50 0-06 by mouth ity of mg tablet 00:00: every 6 [place] 00 (six) Medical hours as Branch needed for Pain. hydrocodone 2009-04 Yes [id number] 1{tbl} Take 1 Tab Univers -acetaminop 0-06 by mouth ity of hen (NORCO) 00:00: every 6 [place] 10-325 mg 00 (six) Medical per tablet hours as Branc h needed for Pain. albuterol-i 2009-04 Yes [id number] 2{puff} Inhale 2 Univers pratropium 0-06 Puffs 4 ity of (COMBIVENT 00:00: (four) [place] INHALER) 00 times Medical 18-103 daily. Branch mcg/Actuati on inhaler montelukast 2009-04 Yes [id number] 10mg Take 1 Tab Univers (SINGULAIR) 0-06 by mouth ity of 10 mg 00:00: daily. [place] tablet 00 Medical Branch fluticasone 2009-04 Yes 2{spray Use 2 [place] (FLONASE) 0-06 } Sprays in ity o f 50 00:00: each [place] mcg/Actuati 00 nostril Medic al on nasal daily. Branch spray traMADOL 2009-04 Yes [id number] 50mg Take 1 Tab Univers (ULTRAM) 50 0-06 by mouth ity of mg tablet 00:00: every 6 [place] 00 (six) Medical hours as Branch needed for Pain. hydrocodone 2009-04 Yes [id number] 1{tbl} Take 1 Tab Univers -acetaminop 0-06 by mouth ity of hen (NORCO) 00:00: every 6 [place] 10-325 mg 00 (six) Medical per tablet hours as Branc h needed for Pain. albuterol-i 2009-04 Yes [id number] 2{puff} Inhale 2 Univers pratropium 0-06 Puffs 4 ity of (COMBIVENT 00:00: (four) [place] INHALER) 00 times Medical 18-103 daily. Branch mcg/Actuati on inhaler montelukast 2009-04 Yes [id number] 10mg Take 1 Tab Univers (SINGULAIR) 0-06 by mouth ity of 10 mg 00:00: daily. [place] tablet 00 Medical Branch fluticasone 2009-04 Yes 2{spray Use 2 [place] (FLONASE) 0-06 } Sprays in ity o f 50 00:00: each [place] mcg/Actuati 00 nostril Medic al on nasal daily. Branch spray traMADOL 2009-04 Yes [id number] 50mg Take 1 Tab Univers (ULTRAM) 50 0-06 by mouth ity of mg tablet 00:00: every 6 [place] 00 (six) Medical hours as Branch needed for Pain. hydrocodone 2009-04 Yes [id number] 1{tbl} Take 1 Tab Univers -acetaminop 0-06 by mouth ity of hen (NORCO) 00:00: every 6 [place] 10-325 mg 00 (six) Medical per tablet hours as Branc h needed for Pain. albuterol-i 2009-04 Yes [id number] 2{puff} Inhale 2 Univers pratropium 0-06 Puffs 4 ity of (COMBIVENT 00:00: (four) [place] INHALER) 00 times Medical 18-103 daily. Branch mcg/Actuati on inhaler montelukast 2009-04 Yes [id number] 10mg Take 1 Tab Univers (SINGULAIR) 0-06 by mouth ity of 10 mg 00:00: daily. [place] tablet 00 Medical Branch fluticasone 2009-04 Yes 2{spray Use 2 [place] (FLONASE) 0-06 } Sprays in ity o f 50 00:00: each [place] mcg/Actuati 00 nostril Medic al on nasal daily. Branch spray traMADOL 2009-04 Yes [id number] 50mg Take 1 Tab Univers (ULTRAM) 50 0-06 by mouth ity of mg tablet 00:00: every 6 [place] 00 (six) Medical hours as Branch needed for Pain. hydrocodone 2009-04 Yes [id number] 1{tbl} Take 1 Tab Univers -acetaminop 0-06 by mouth ity of hen (NORCO) 00:00: every 6 [place] 10-325 mg 00 (six) Medical per tablet hours as Branc h needed for Pain. albuterol-i 2009-04 Yes [id number] 2{puff} Inhale 2 Univers pratropium 0-06 Puffs 4 ity of (COMBIVENT 00:00: (four) [place] INHALER) 00 times Medical 18-103 daily. Branch mcg/Actuati on inhaler montelukast 2009-04 Yes [id number] 10mg Take 1 Tab Univers (SINGULAIR) 0-06 by mouth ity of 10 mg 00:00: daily. [place] tablet 00 Medical Branch fluticasone 2009-04 Yes 2{spray Use 2 [place] (FLONASE) 0-06 } Sprays in ity o f 50 00:00: each [place] mcg/Actuati 00 nostril Medic al on nasal daily. Branch spray traMADOL 2009-04 Yes [id number] 50mg Take 1 Tab Univers (ULTRAM) 50 0-06 by mouth ity of mg tablet 00:00: every 6 [place] 00 (six) Medical hours as Branch needed for Pain. hydrocodone 2009-04 Yes [id number] 1{tbl} Take 1 Tab Univers -acetaminop 0-06 by mouth ity of hen (NORCO) 00:00: every 6 [place] 10-325 mg 00 (six) Medical per tablet hours as Branc h needed for Pain. albuterol-i 2009-04 Yes [id number] 2{puff} Inhale 2 Univers pratropium 0-06 Puffs 4 ity of (COMBIVENT 00:00: (four) [place] INHALER) 00 times Medical 18-103 daily. Branch mcg/Actuati on inhaler montelukast 2009-04 Yes [id number] 10mg Take 1 Tab Univers (SINGULAIR) 0-06 by mouth ity of 10 mg 00:00: daily. [place] tablet 00 Medical Branch fluticasone 2009-04 Yes 2{spray Use 2 [place] (FLONASE) 0-06 } Sprays in ity o f 50 00:00: each [place] mcg/Actuati 00 nostril Medic al on nasal daily. Branch spray traMADOL 2009-04 Yes [id number] 50mg Take 1 Tab Univers (ULTRAM) 50 0-06 by mouth ity of mg tablet 00:00: every 6 [place] 00 (six) Medical hours as Branch needed for Pain. hydrocodone 2009-04 Yes [id number] 1{tbl} Take 1 Tab Univers -acetaminop 0-06 by mouth ity of hen (NORCO) 00:00: every 6 [place] 10-325 mg 00 (six) Medical per tablet hours as Branc h needed for Pain. albuterol-i 2009-04 Yes [id number] 2{puff} Inhale 2 Univers pratropium 0-06 Puffs 4 ity of (COMBIVENT 00:00: (four) [place] INHALER) 00 times Medical 18-103 daily. Branch mcg/Actuati on inhaler montelukast 2009-04 Yes [id number] 10mg Take 1 Tab Univers (SINGULAIR) 0-06 by mouth ity of 10 mg 00:00: daily. [place] tablet 00 Medical Branch fluticasone 2009-04 Yes 2{spray Use 2 [place] (FLONASE) 0-06 } Sprays in ity o f 50 00:00: each [place] mcg/Actuati 00 nostril Medic al on nasal daily. Branch spray traMADOL 2009-04 Yes [id number] 50mg Take 1 Tab Univers (ULTRAM) 50 0-06 by mouth ity of mg tablet 00:00: every 6 [place] 00 (six) Medical hours as Branch needed for Pain. hydrocodone 2009-04 Yes [id number] 1{tbl} Take 1 Tab Univers -acetaminop 0-06 by mouth ity of hen (NORCO) 00:00: every 6 [place] 10-325 mg 00 (six) Medical per tablet hours as Branc h needed for Pain. albuterol-i 2009-04 Yes [id number] 2{puff} Inhale 2 Univers pratropium 0-06 Puffs 4 ity of (COMBIVENT 00:00: (four) [place] INHALER) 00 times Medical 18-103 daily. Branch mcg/Actuati on inhaler montelukast 2009-04 Yes [id number] 10mg Take 1 Tab Univers (SINGULAIR) 0-06 by mouth ity of 10 mg 00:00: daily. [place] tablet 00 Medical Branch fluticasone 2009-04 Yes 2{spray Use 2 [place] (FLONASE) 0-06 } Sprays in ity o f 50 00:00: each [place] mcg/Actuati 00 nostril Medic al on nasal daily. Branch spray traMADOL 2009-04 Yes [id number] 50mg Take 1 Tab Univers (ULTRAM) 50 0-06 by mouth ity of mg tablet 00:00: every 6 [place] 00 (six) Medical hours as Branch needed for Pain. hydrocodone 2009-04 Yes [id number] 1{tbl} Take 1 Tab Univers -acetaminop 0-06 by mouth ity of hen (NORCO) 00:00: every 6 [place] 10-325 mg 00 (six) Medical per tablet hours as Branc h needed for Pain. albuterol-i 2009-04 Yes [id number] 2{puff} Inhale 2 Univers pratropium 0-06 Puffs 4 ity of (COMBIVENT 00:00: (four) [place] INHALER) 00 times Medical 18-103 daily. Branch mcg/Actuati on inhaler montelukast 2009-04 Yes [id number] 10mg Take 1 Tab Univers (SINGULAIR) 0-06 by mouth ity of 10 mg 00:00: daily. [place] tablet 00 Medical Branch fluticasone 2009-04 Yes 2{spray Use 2 [place] (FLONASE) 0-06 } Sprays in ity o f 50 00:00: each [place] mcg/Actuati 00 nostril Medic al on nasal daily. Branch spray traMADOL 2009-04 Yes [id number] 50mg Take 1 Tab Univers (ULTRAM) 50 0-06 by mouth ity of mg tablet 00:00: every 6 [place] 00 (six) Medical hours as Branch needed for Pain. hydrocodone 2009-04 Yes [id number] 1{tbl} Take 1 Tab Univers -acetaminop 0-06 by mouth ity of hen (NORCO) 00:00: every 6 [place] 10-325 mg 00 (six) Medical per tablet hours as Branc h needed for Pain. albuterol-i 2009-04 Yes [id number] 2{puff} Inhale 2 Univers pratropium 0-06 Puffs 4 ity of (COMBIVENT 00:00: (four) [place] INHALER) 00 times Medical 18-103 daily. Branch mcg/Actuati on inhaler montelukast 2009-04 Yes [id number] 10mg Take 1 Tab Univers (SINGULAIR) 0-06 by mouth ity of 10 mg 00:00: daily. [place] tablet 00 Medical Branch fluticasone 2009-04 Yes 2{spray Use 2 [place] (FLONASE) 0-06 } Sprays in ity o f 50 00:00: each [place] mcg/Actuati 00 nostril Medic al on nasal daily. Branch spray traMADOL 2009-04 Yes [id number] 50mg Take 1 Tab Univers (ULTRAM) 50 0-06 by mouth ity of mg tablet 00:00: every 6 [place] 00 (six) Medical hours as Branch needed for Pain. hydrocodone 2009-04 Yes [id number] 1{tbl} Take 1 Tab Univers -acetaminop 0-06 by mouth ity of hen (NORCO) 00:00: every 6 [place] 10-325 mg 00 (six) Medical per tablet hours as Branc h needed for Pain. albuterol-i 2009-04 Yes [id number] 2{puff} Inhale 2 Univers pratropium 0-06 Puffs 4 ity of (COMBIVENT 00:00: (four) [place] INHALER) 00 times Medical 18-103 daily. Branch mcg/Actuati on inhaler montelukast 2009-04 Yes [id number] 10mg Take 1 Tab Univers (SINGULAIR) 0-06 by mouth ity of 10 mg 00:00: daily. [place] tablet 00 Medical Branch fluticasone 2009-04 Yes 2{spray Use 2 [place] (FLONASE) 0-06 } Sprays in ity o f 50 00:00: each [place] mcg/Actuati 00 nostril Medic al on nasal daily. Branch spray traMADOL 2009-04 Yes [id number] 50mg Take 1 Tab Univers (ULTRAM) 50 0-06 by mouth ity of mg tablet 00:00: every 6 [place] 00 (six) Medical hours as Branch needed for Pain. hydrocodone 2009-04 Yes [id number] 1{tbl} Take 1 Tab Univers -acetaminop 0-06 by mouth ity of hen (NORCO) 00:00: every 6 [place] as 10-325 mg 00 (six) Medical per tablet hours as Branc h needed for Pain. albuterol-i 2009-04 Yes [id number] 2{puff} Inhale 2 Univers pratropium 0-06 Puffs 4 ity of (COMBIVENT 00:00: (four) [place] INHALER) 00 times Medical 18-103 daily. Branch mcg/Actuati on inhaler montelukast 2009-04 Yes [id number] 10mg Take 1 Tab Univers (SINGULAIR) 0-06 by mouth ity of 10 mg 00:00: daily. [place] tablet 00 Medical Branch fluticasone 2009-04 Yes 2{spray Use 2 [place] (FLONASE) 0-06 } Sprays in ity o f 50 00:00: each [place] mcg/Actuati 00 nostril Medic al on nasal daily. Branch spray traMADOL 2009-04 Yes [id number] 50mg Take 1 Tab Univers (ULTRAM) 50 0-06 by mouth ity of mg tablet 00:00: every 6 [place] 00 (six) Medical hours as Branch needed for Pain. hydrocodone 2009-04 Yes [id number] 1{tbl} Take 1 Tab Univers -acetaminop 0-06 by mouth ity of hen (NORCO) 00:00: every 6 [place] 10-325 mg 00 (six) Medical per tablet hours as Branc h needed for Pain. albuterol-i 2009-04 Yes [id number] 2{puff} Inhale 2 Univers pratropium 0-06 Puffs 4 ity of (COMBIVENT 00:00: (four) [place] INHALER) 00 times Medical 18-103 daily. Branch mcg/Actuati on inhaler montelukast 2009-04 Yes [id number] 10mg Take 1 Tab Univers (SINGULAIR) 0-06 by mouth ity of 10 mg 00:00: daily. [place] tablet 00 Medical Branch fluticasone 2009-04 Yes 2{spray Use 2 [place] (FLONASE) 0-06 } Sprays in ity o f 50 00:00: each [place] mcg/Actuati 00 nostril Medic al on nasal daily. Branch spray traMADOL 2009-04 Yes [id number] 50mg Take 1 Tab Univers (ULTRAM) 50 0-06 by mouth ity of mg tablet 00:00: every 6 [place] 00 (six) Medical hours as Branch needed for Pain. hydrocodone 2009-04 Yes [id number] 1{tbl} Take 1 Tab Univers -acetaminop 0-06 by mouth ity of hen (NORCO) 00:00: every 6 [place] 10-325 mg 00 (six) Medical per tablet hours as Branc h needed for Pain. albuterol-i 2009-04 Yes [id number] 2{puff} Inhale 2 [facility] pratropium 0-06 Puffs 4 ity of (COMBIVENT 00:00: (four) [place] INHALER) 00 times Medical 18-103 daily. Branch mcg/Actuati on inhaler montelukast 2009-04 Yes [id number] 10mg Take 1 Tab Univers (SINGULAIR) 0-06 by mouth ity of 10 mg 00:00: daily. [place] tablet 00 Medical Branch fluticasone 2009-04 Yes 2{spray Use 2 [place] (FLONASE) 0-06 } Sprays in ity o f 50 00:00: each [place] mcg/Actuati 00 nostril Medic al on nasal daily. Branch spray traMADOL 2009-04 Yes [id number] 50mg Take 1 Tab Univers (ULTRAM) 50 0-06 by mouth ity of mg tablet 00:00: every 6 [place] 00 (six) Medical hours as Branch needed for Pain. hydrocodone 2009-04 Yes [id number] 1{tbl} Take 1 Tab [facility] -acetaminop 0-06 by mouth ity of hen (NORCO) 00:00: every 6 [place] as 10-325 mg 00 (six) Medical per tablet hours as Branc h needed for Pain. albuterol-i 2009-04 Yes [id number] 2{puff} Inhale 2 [facility] pratropium 0-06 Puffs 4 ity of (COMBIVENT 00:00: (four) [place] INHALER) 00 times Medical 18-103 daily. Branch mcg/Actuati on inhaler montelukast 2009-04 Yes [id number] 10mg Take 1 Tab [facility] (SINGULAIR) 0-06 by mouth ity of 10 mg 00:00: daily. [place] tablet 00 Medical Branch fluticasone 2009-04 Yes 2{spray Use 2 [facility] [place] (FLONASE) 0-06 } Sprays in ity o f 50 00:00: each [place] mcg/Actuati 00 nostril Medic al on nasal daily. Branch spray traMADOL 2009-04 Yes [id number] 50mg Take 1 Tab [facility] (ULTRAM) 50 0-06 by mouth ity of mg tablet 00:00: every 6 [place] 00 (six) Medical hours as Branch needed for Pain. hydrocodone 2009-04 Yes [id number] 1{tbl} Take 1 Tab [facility] -acetaminop 0-06 by mouth ity of hen (NORCO) 00:00: every 6 [place] as 10-325 mg 00 (six) Medical per tablet hours as Branc h needed for Pain. albuterol-i 2009-04 Yes [id number] 2{puff} Inhale 2 [facility] pratropium 0-06 Puffs 4 ity of (COMBIVENT 00:00: (four) [place] INHALER) 00 times Medical 18-103 daily. Branch mcg/Actuati on inhaler montelukast 2009-04 Yes [id number] 10mg Take 1 Tab [facility] (SINGULAIR) 0-06 by mouth ity of 10 mg 00:00: daily. [place] tablet 00 Medical Branch fluticasone 2009-04 Yes 2{spray Use 2 [facility] [place] (FLONASE) 0-06 } Sprays in ity o f 50 00:00: each [place] mcg/Actuati 00 nostril Medic al on nasal daily. Branch spray traMADOL 2009-04 Yes [id number] 50mg Take 1 Tab [facility] (ULTRAM) 50 0-06 by mouth ity of mg tablet 00:00: every 6 [place] 00 (six) Medical hours as Branch needed for Pain. hydrocodone 2009-04 Yes [id number] 1{tbl} Take 1 Tab [facility] -acetaminop 0-06 by mouth ity of hen (NORCO) 00:00: every 6 [place] as 10-325 mg 00 (six) Medical per tablet hours as Branc h needed for Pain. albuterol-i 2009-04 Yes [id number] 2{puff} Inhale 2 [facility] pratropium 0-06 Puffs 4 ity of (COMBIVENT 00:00: (four) [place] INHALER) 00 times Medical 18-103 daily. Branch mcg/Actuati on inhaler montelukast 2009-04 Yes [id number] 10mg Take 1 Tab [facility] (SINGULAIR) 0-06 by mouth ity of 10 mg 00:00: daily. [place] tablet 00 Medical Branch fluticasone 2009-04 Yes 2{spray Use 2 [facility] [place] (FLONASE) 0-06 } Sprays in ity o f 50 00:00: each [place] mcg/Actuati 00 nostril Medic al on nasal daily. Branch spray traMADOL 2009-04 Yes [id number] 50mg Take 1 Tab [facility] (ULTRAM) 50 0-06 by mouth ity of mg tablet 00:00: every 6 [place] 00 (six) Medical hours as Branch needed for Pain. hydrocodone 2009-04 Yes [id number] 1{tbl} Take 1 Tab [facility] -acetaminop 0-06 by mouth ity of hen (NORCO) 00:00: every 6 [place] 10-325 mg 00 (six) Medical per tablet hours as Branc h needed for Pain. traMADOL 2009-04 Yes [id number] 50mg Take 1 Tab [facility] (ULTRAM) 50 0-06 by mouth ity of mg tablet 00:00: every 6 [place] 00 (six) Medical hours as Branch needed for Pain. hydrocodone 2009-04 Yes [id number] 1{tbl} Take 1 Tab [facility] -acetaminop 0-06 by mouth ity of hen (NORCO) 00:00: every 6 [place] 10-325 mg 00 (six) Medical per tablet hours as Branc h needed for Pain. albuterol-i 2009-04 Yes [id number] 2{puff} Inhale 2 [facility] pratropium 0-06 Puffs 4 ity of (COMBIVENT 00:00: (four) [place] INHALER) 00 times Medical 18-103 daily. Branch mcg/Actuati on inhaler montelukast 2009-04 Yes [id number] 10mg Take 1 Tab [facility] (SINGULAIR) 0-06 by mouth ity of 10 mg 00:00: daily. [place] tablet 00 Medical Branch fluticasone 2009-04 Yes 2{spray Use 2 [facility] [place] (FLONASE) 0-06 } Sprays in ity o f 50 00:00: each [place] mcg/Actuati 00 nostril Medic al on nasal daily. Branch spray esomeprazol 2009-04 Yes 40mg Take 1 Cap [facility] e (NEXIUM) 0-06 by mouth ity o f 40 mg 00:00: daily with [place] capsule 00 breakfast. Medica l Branch carvedilol 2009-04 Yes [id number] 25mg Take 2 [facility] (COREG) 0-06 Tabs by ity of 12.5 mg 00:00: mouth 2 [place] tablet 00 (two) Medical times Branch daily with meals. traMADOL 2009-04 Yes [id number] 50mg Take 1 Tab [facility] (ULTRAM) 50 0-06 by mouth ity of mg tablet 00:00: every 6 [place] 00 (six) Medical hours as Branch needed for Pain. hydrocodone 2009-04 Yes [id number] 1{tbl} Take 1 Tab [facility] -acetaminop 0-06 by mouth ity of hen (NORCO) 00:00: every 6 [place] 10-325 mg 00 (six) Medical per tablet hours as Branc h needed for Pain. albuterol-i 2009-04 Yes [id number] 2{puff} Inhale 2 [facility] pratropium 0-06 Puffs 4 ity of (COMBIVENT 00:00: (four) [place] INHALER) 00 times Medical 18-103 daily. Branch mcg/Actuati on inhaler valsartan 2009-04 Yes [id number] 320mg Take 1 Tab [facility] (DIOVAN) 0-06 by mouth ity of 320 mg 00:00: daily. [place] tablet 00 Medical Branch montelukast 2009-04 Yes [id number] 10mg Take 1 Tab [facility] (SINGULAIR) 0-06 by mouth ity of 10 mg 00:00: daily. [place] tablet 00 Medical Branch fluticasone 2009-04 Yes 2{spray Use 2 [facility] [place] (FLONASE) 0-06 } Sprays in ity o f 50 00:00: each [place] mcg/Actuati 00 nostril Medic al on nasal daily. Branch spray albuterol-i 2009-04 Yes [id number] 2{puff} Inhale 2 [facility] pratropium 0-06 Puffs 4 ity of (COMBIVENT 00:00: (four) [place] INHALER) 00 times Medical 18-103 daily. Branch mcg/Actuati on inhaler montelukast 2009-04 Yes [id number] 10mg Take 1 Tab [facility] (SINGULAIR) 0-06 by mouth ity of 10 mg 00:00: daily. [place] tablet 00 Medical Branch traMADOL 2009-04 Yes [id number] 50mg Take 1 Tab [facility] (ULTRAM) 50 0-06 by mouth ity of mg tablet 00:00: every 6 [place] 00 (six) Medical hours as Branch needed for Pain. hydrocodone 2009-04 Yes [id number] 1{tbl} Take 1 Tab [facility] -acetaminop 0-06 by mouth ity of hen (NORCO) 00:00: every 6 [place] 10-325 mg 00 (six) Medical per tablet hours as Branc h needed for Pain. albuterol-i 2009-04 Yes [id number] 2{puff} Inhale 2 [facility] pratropium 0-06 Puffs 4 ity of (COMBIVENT 00:00: (four) [place] INHALER) 00 times Medical 18-103 daily. Branch mcg/Actuati on inhaler montelukast 2009-04 Yes [id number] 10mg Take 1 Tab [facility] (SINGULAIR) 0-06 by mouth ity of 10 mg 00:00: daily. [place] tablet 00 Medical Branch fluticasone 2009-04 Yes 2{spray Use 2 [facility] [place] (FLONASE) 0-06 } Sprays in ity o f 50 00:00: each [place] mcg/Actuati 00 nostril Medic al on nasal daily. Branch spray metFORMIN 2009-04 Yes [id number] 500mg Take 1 Tab [facility] (GLUCOPHAGE 0-06 by mouth ity of ) 500 mg 00:00: daily. [place] tablet 00 Medical Branch loratadine 2009-04 Yes 10mg Take 1 Tab [facility] (CLARITIN) 0-06 by mouth ity o f 10 mg 00:00: daily. [place] tablet 00 Medical Branch traMADOL 2009-04 Yes [id number] 50mg Take 1 Tab [facility] (ULTRAM) 50 0-06 by mouth ity of mg tablet 00:00: every 6 [place] 00 (six) Medical hours as Branch needed for Pain. fluticasone 2009-04 Yes 2{spray Use 2 [facility] [place] (FLONASE) 0-06 } Sprays in ity o f 50 00:00: each [place] mcg/Actuati 00 nostril Medic al on nasal daily. Branch spray hydrocodone 2009-04 Yes [id number] 1{tbl} Take 1 Tab [facility] -acetaminop 0-06 by mouth ity of hen (NORCO) 00:00: every 6 [place] as 10-325 mg 00 (six) Medical per tablet hours as Branc h needed for Pain. albuterol-i 2009-04 Yes [id number] 2{puff} Inhale 2 [facility] pratropium 0-06 Puffs 4 ity of (COMBIVENT 00:00: (four) [place] INHALER) 00 times Medical 18-103 daily. Branch mcg/Actuati on inhaler montelukast 2009-04 Yes [id number] 10mg Take 1 Tab [facility] (SINGULAIR) 0-06 by mouth ity of 10 mg 00:00: daily. [place] tablet 00 Medical Branch fluticasone 2009-04 Yes 2{spray Use 2 [facility] [place] (FLONASE) 0-06 } Sprays in ity o f 50 00:00: each [place] mcg/Actuati 00 nostril Medic al on nasal daily. Branch spray traMADOL 2009-04 Yes [id number] 50mg Take 1 Tab [facility] (ULTRAM) 50 0-06 by mouth ity of mg tablet 00:00: every 6 [place] 00 (six) Medical hours as Branch needed for Pain. hydrocodone 2009-04 Yes [id number] 1{tbl} Take 1 Tab [facility] -acetaminop 0-06 by mouth ity of hen (NORCO) 00:00: every 6 [place] as 10-325 mg 00 (six) Medical per tablet hours as Branc h needed for Pain. albuterol-i 2009-04 Yes [id number] 2{puff} Inhale 2 [facility] pratropium 0-06 Puffs 4 ity of (COMBIVENT 00:00: (four) [place] INHALER) 00 times Medical 18-103 daily. Branch mcg/Actuati on inhaler montelukast 2009-04 Yes [id number] 10mg Take 1 Tab [facility] (SINGULAIR) 0-06 by mouth ity of 10 mg 00:00: daily. [place] tablet 00 Medical Branch fluticasone 2009-04 Yes 2{spray Use 2 [facility] [place] (FLONASE) 0-06 } Sprays in ity o f 50 00:00: each [place] mcg/Actuati 00 nostril Medic al on nasal daily. Branch spray traMADOL 2009-04 Yes [id number] 50mg Take 1 Tab [facility] (ULTRAM) 50 0-06 by mouth ity of mg tablet 00:00: every 6 [place] 00 (six) Medical hours as Branch needed for Pain. hydrocodone 2009-04 Yes [id number] 1{tbl} Take 1 Tab [facility] -acetaminop 0-06 by mouth ity of hen (NORCO) 00:00: every 6 [place] as 10-325 mg 00 (six) Medical per tablet hours as Branc h needed for Pain. albuterol-i 2009-04 Yes [id number] 2{puff} Inhale 2 [facility] pratropium 0-06 Puffs 4 ity of (COMBIVENT 00:00: (four) [place] INHALER) 00 times Medical 18-103 daily. Branch mcg/Actuati on inhaler montelukast 2009-04 Yes [id number] 10mg Take 1 Tab [facility] (SINGULAIR) 0-06 by mouth ity of 10 mg 00:00: daily. [place] tablet 00 Medical Branch fluticasone 2009-04 Yes 2{spray Use 2 [facility] [place] (FLONASE) 0-06 } Sprays in ity o f 50 00:00: each [place] mcg/Actuati 00 nostril Medic al on nasal daily. Branch spray traMADOL 2009-04 Yes [id number] 50mg Take 1 Tab [facility] (ULTRAM) 50 0-06 by mouth ity of mg tablet 00:00: every 6 [place] 00 (six) Medical hours as Branch needed for Pain. hydrocodone 2009-04 Yes [id number] 1{tbl} Take 1 Tab [facility] -acetaminop 0-06 by mouth ity of hen (NORCO) 00:00: every 6 [place] as 10-325 mg 00 (six) Medical per tablet hours as Branc h needed for Pain. albuterol-i 2009-04 Yes [id number] 2{puff} Inhale 2 [facility] pratropium 0-06 Puffs 4 ity of (COMBIVENT 00:00: (four) [place] INHALER) 00 times Medical 18-103 daily. Branch mcg/Actuati on inhaler montelukast 2009-04 Yes [id number] 10mg Take 1 Tab [facility] (SINGULAIR) 0-06 by mouth ity of 10 mg 00:00: daily. [place] tablet 00 Medical Branch fluticasone 2009-04 Yes 2{spray Use 2 [facility] [place] (FLONASE) 0-06 } Sprays in ity o f 50 00:00: each [place] mcg/Actuati 00 nostril Medic al on nasal daily. Branch spray traMADOL 2009-04 Yes [id number] 50mg Take 1 Tab [facility] (ULTRAM) 50 0-06 by mouth ity of mg tablet 00:00: every 6 [place] 00 (six) Medical hours as Branch needed for Pain. hydrocodone 2009-04 Yes [id number] 1{tbl} Take 1 Tab [facility] -acetaminop 0-06 by mouth ity of hen (NORCO) 00:00: every 6 [place] as 10-325 mg 00 (six) Medical per tablet hours as Branc h needed for Pain. albuterol-i 2009-04 Yes [id number] 2{puff} Inhale 2 [facility] pratropium 0-06 Puffs 4 ity of (COMBIVENT 00:00: (four) [place] INHALER) 00 times Medical 18-103 daily. Branch mcg/Actuati on inhaler montelukast 2009-04 Yes [id number] 10mg Take 1 Tab [facility] (SINGULAIR) 0-06 by mouth ity of 10 mg 00:00: daily. [place] tablet 00 Medical Branch fluticasone 2009-04 Yes 2{spray Use 2 [facility] [place] (FLONASE) 0-06 } Sprays in ity o f 50 00:00: each [place] mcg/Actuati 00 nostril Medic al on nasal daily. Branch spray traMADOL 2009-04 Yes [id number] 50mg Take 1 Tab [facility] (ULTRAM) 50 0-06 by mouth ity of mg tablet 00:00: every 6 [place] 00 (six) Medical hours as Branch needed for Pain. hydrocodone 2009-04 Yes [id number] 1{tbl} Take 1 Tab [facility] -acetaminop 0-06 by mouth ity of hen (NORCO) 00:00: every 6 [place] as 10-325 mg 00 (six) Medical per tablet hours as Branc h needed for Pain. albuterol-i 2009-04 Yes [id number] 2{puff} Inhale 2 [facility] pratropium 0-06 Puffs 4 ity of (COMBIVENT 00:00: (four) [place] INHALER) 00 times Medical 18-103 daily. Branch mcg/Actuati on inhaler montelukast 2009-04 Yes [id number] 10mg Take 1 Tab [facility] (SINGULAIR) 0-06 by mouth ity of 10 mg 00:00: daily. [place] tablet 00 Medical Branch fluticasone 2009-04 Yes 2{spray Use 2 [facility] [place] (FLONASE) 0-06 } Sprays in ity o f 50 00:00: each [place] mcg/Actuati 00 nostril Medic al on nasal daily. Branch spray traMADOL 2009-04 Yes [id number] 50mg Take 1 Tab [facility] (ULTRAM) 50 0-06 by mouth ity of mg tablet 00:00: every 6 [place] 00 (six) Medical hours as Branch needed for Pain. hydrocodone 2009-04 Yes [id number] 1{tbl} Take 1 Tab [facility] -acetaminop 0-06 by mouth ity of hen (NORCO) 00:00: every 6 [place] as 10-325 mg 00 (six) Medical per tablet hours as Branc h needed for Pain. albuterol-i 2009-04 Yes [id number] 2{puff} Inhale 2 [facility] pratropium 0-06 Puffs 4 ity of (COMBIVENT 00:00: (four) [place] INHALER) 00 times Medical 18-103 daily. Branch mcg/Actuati on inhaler montelukast 2009-04 Yes [id number] 10mg Take 1 Tab [facility] (SINGULAIR) 0-06 by mouth ity of 10 mg 00:00: daily. [place] tablet 00 Medical Branch fluticasone 2009-04 Yes 2{spray Use 2 [facility] [place] (FLONASE) 0-06 } Sprays in ity o f 50 00:00: each [place] mcg/Actuati 00 nostril Medic al on nasal daily. Branch spray traMADOL 2009-04 Yes [id number] 50mg Take 1 Tab [facility] (ULTRAM) 50 0-06 by mouth ity of mg tablet 00:00: every 6 [place] 00 (six) Medical hours as Branch needed for Pain. hydrocodone 2009-04 Yes [id number] 1{tbl} Take 1 Tab [facility] -acetaminop 0-06 by mouth ity of hen (NORCO) 00:00: every 6 [place] as 10-325 mg 00 (six) Medical per tablet hours as Branc h needed for Pain. albuterol-i 2009-04 Yes [id number] 2{puff} Inhale 2 [facility] pratropium 0-06 Puffs 4 ity of (COMBIVENT 00:00: (four) [place] INHALER) 00 times Medical 18-103 daily. Branch mcg/Actuati on inhaler montelukast 2009-04 Yes [id number] 10mg Take 1 Tab [facility] (SINGULAIR) 0-06 by mouth ity of 10 mg 00:00: daily. [place] tablet 00 Medical Branch fluticasone 2009-04 Yes 2{spray Use 2 [facility] [place] (FLONASE) 0-06 } Sprays in ity o f 50 00:00: each [place] mcg/Actuati 00 nostril Medic al on nasal daily. Branch spray traMADOL 2009-04 Yes [id number] 50mg Take 1 Tab [facility] (ULTRAM) 50 0-06 by mouth ity of mg tablet 00:00: every 6 [place] 00 (six) Medical hours as Branch needed for Pain. hydrocodone 2009-04 Yes [id number] 1{tbl} Take 1 Tab [facility] -acetaminop 0-06 by mouth ity of hen (NORCO) 00:00: every 6 [place] as 10-325 mg 00 (six) Medical per tablet hours as Branc h needed for Pain. albuterol-i 2009-04 Yes [id number] 2{puff} Inhale 2 [facility] pratropium 0-06 Puffs 4 ity of (COMBIVENT 00:00: (four) [place] INHALER) 00 times Medical 18-103 daily. Branch mcg/Actuati on inhaler montelukast 2009-04 Yes [id number] 10mg Take 1 Tab [facility] (SINGULAIR) 0-06 by mouth ity of 10 mg 00:00: daily. [place] tablet 00 Medical Branch fluticasone 2009-04 Yes 2{spray Use 2 [facility] [place] (FLONASE) 0-06 } Sprays in ity o f 50 00:00: each [place] mcg/Actuati 00 nostril Medic al on nasal daily. Branch spray traMADOL 2009-04 Yes [id number] 50mg Take 1 Tab [facility] (ULTRAM) 50 0-06 by mouth ity of mg tablet 00:00: every 6 [place] 00 (six) Medical hours as Branch needed for Pain. hydrocodone 2009-04 Yes [id number] 1{tbl} Take 1 Tab [facility] -acetaminop 0-06 by mouth ity of hen (NORCO) 00:00: every 6 [place] as 10-325 mg 00 (six) Medical per tablet hours as Branc h needed for Pain. albuterol-i 2009-04 Yes [id number] 2{puff} Inhale 2 [facility] pratropium 0-06 Puffs 4 ity of (COMBIVENT 00:00: (four) [place] INHALER) 00 times Medical 18-103 daily. Branch mcg/Actuati on inhaler montelukast 2009-04 Yes [id number] 10mg Take 1 Tab [facility] (SINGULAIR) 0-06 by mouth ity of 10 mg 00:00: daily. [place] tablet 00 Medical Branch fluticasone 2009-04 Yes 2{spray Use 2 [facility] [place] (FLONASE) 0-06 } Sprays in ity o f 50 00:00: each [place] mcg/Actuati 00 nostril Medic al on nasal daily. Branch spray traMADOL 2009-04 Yes [id number] 50mg Take 1 Tab [facility] (ULTRAM) 50 0-06 by mouth ity of mg tablet 00:00: every 6 [place] 00 (six) Medical hours as Branch needed for Pain. hydrocodone 2009-04 Yes [id number] 1{tbl} Take 1 Tab [facility] -acetaminop 0-06 by mouth ity of hen (NORCO) 00:00: every 6 [place] as 10-325 mg 00 (six) Medical per tablet hours as Branc h needed for Pain. albuterol-i 2009-04 Yes [id number] 2{puff} Inhale 2 [facility] pratropium 0-06 Puffs 4 ity of (COMBIVENT 00:00: (four) [place] INHALER) 00 times Medical 18-103 daily. Branch mcg/Actuati on inhaler montelukast 2009-04 Yes [id number] 10mg Take 1 Tab [facility] (SINGULAIR) 0-06 by mouth ity of 10 mg 00:00: daily. [place] tablet 00 Medical Branch traMADOL 2009-04 Yes [id number] 50mg Take 1 Tab [facility] (ULTRAM) 50 0-06 by mouth ity of mg tablet 00:00: every 6 [place] 00 (six) Medical hours as Branch needed for Pain. fluticasone 2009-04 Yes 2{spray Use 2 [facility] [place] (FLONASE) 0-06 } Sprays in ity o f 50 00:00: each [place] mcg/Actuati 00 nostril Medic al on nasal daily. Branch spray hydrocodone 2009-04 Yes [id number] 1{tbl} Take 1 Tab [facility] -acetaminop 0-06 by mouth ity of hen (NORCO) 00:00: every 6 [place] as 10-325 mg 00 (six) Medical per tablet hours as Branc h needed for Pain. traMADOL 2009-04 Yes [id number] 50mg Take 1 Tab [facility] (ULTRAM) 50 0-06 by mouth ity of mg tablet 00:00: every 6 [place] 00 (six) Medical hours as Branch needed for Pain. hydrocodone 2009-04 Yes [id number] 1{tbl} Take 1 Tab [facility] -acetaminop 0-06 by mouth ity of hen (NORCO) 00:00: every 6 [place] as 10-325 mg 00 (six) Medical per tablet hours as Branc h needed for Pain. albuterol-i 2009-04 Yes [id number] 2{puff} Inhale 2 [facility] pratropium 0-06 Puffs 4 ity of (COMBIVENT 00:00: (four) [place] INHALER) 00 times Medical 18-103 daily. Branch mcg/Actuati on inhaler montelukast 2009-04 Yes [id number] 10mg Take 1 Tab [facility] (SINGULAIR) 0-06 by mouth ity of 10 mg 00:00: daily. [place] tablet 00 Medical Branch fluticasone 2009-04 Yes 2{spray Use 2 [facility] [place] (FLONASE) 0-06 } Sprays in ity o f 50 00:00: each [place] mcg/Actuati 00 nostril Medic al on nasal daily. Branch spray traMADOL 2009-04 Yes [id number] 50mg Take 1 Tab [facility] (ULTRAM) 50 0-06 by mouth ity of mg tablet 00:00: every 6 [place] 00 (six) Medical hours as Branch needed for Pain. hydrocodone 2009-04 Yes [id number] 1{tbl} Take 1 Tab [facility] -acetaminop 0-06 by mouth ity of hen (NORCO) 00:00: every 6 [place] as 10-325 mg 00 (six) Medical per tablet hours as Branc h needed for Pain. albuterol-i 2009-04 Yes [id number] 2{puff} Inhale 2 [facility] pratropium 0-06 Puffs 4 ity of (COMBIVENT 00:00: (four) [place] INHALER) 00 times Medical 18-103 daily. Branch mcg/Actuati on inhaler montelukast 2009-04 Yes [id number] 10mg Take 1 Tab [facility] (SINGULAIR) 0-06 by mouth ity of 10 mg 00:00: daily. [place] tablet 00 Medical Branch albuterol-i 2009-04 Yes [id number] 2{puff} Inhale 2 [facility] pratropium 0-06 Puffs 4 ity of (COMBIVENT 00:00: (four) [place] INHALER) 00 times Medical 18-103 daily. Branch mcg/Actuati on inhaler fluticasone 2009-04 Yes 2{spray Use 2 [facility] [place] (FLONASE) 0-06 } Sprays in ity o f 50 00:00: each [place] mcg/Actuati 00 nostril Medic al on nasal daily. Branch spray montelukast 2009-04 Yes [id number] 10mg Take 1 Tab [facility] (SINGULAIR) 0-06 by mouth ity of 10 mg 00:00: daily. [place] tablet 00 Medical Branch traMADOL 2009-04 Yes [id number] 50mg Take 1 Tab [facility] (ULTRAM) 50 0-06 by mouth ity of mg tablet 00:00: every 6 [place] 00 (six) Medical hours as Branch needed for Pain. hydrocodone 2009-04 Yes [id number] 1{tbl} Take 1 Tab [facility] -acetaminop 0-06 by mouth ity of hen (NORCO) 00:00: every 6 [place] as 10-325 mg 00 (six) Medical per tablet hours as Branc h needed for Pain. albuterol-i 2009-04 Yes [id number] 2{puff} Inhale 2 [facility] pratropium 0-06 Puffs 4 ity of (COMBIVENT 00:00: (four) [place] INHALER) 00 times Medical 18-103 daily. Branch mcg/Actuati on inhaler montelukast 2009-04 Yes [id number] 10mg Take 1 Tab [facility] (SINGULAIR) 0-06 by mouth ity of 10 mg 00:00: daily. [place] tablet 00 Medical Branch fluticasone 2009-04 Yes 2{spray Use 2 [facility] [place] (FLONASE) 0-06 } Sprays in ity o f 50 00:00: each [place] mcg/Actuati 00 nostril Medic al on nasal daily. Branch spray fluticasone 2009-04 Yes 2{spray Use 2 [facility] [place] (FLONASE) 0-06 } Sprays in ity o f 50 00:00: each [place] mcg/Actuati 00 nostril Medic al on nasal daily. Branch spray traMADOL 2009-04 Yes [id number] 50mg Take 1 Tab [facility] (ULTRAM) 50 0-06 by mouth ity of mg tablet 00:00: every 6 [place] 00 (six) Medical hours as Branch needed for Pain. hydrocodone 2009-04 Yes [id number] 1{tbl} Take 1 Tab [facility] -acetaminop 0-06 by mouth ity of hen (NORCO) 00:00: every 6 [place] as 10-325 mg 00 (six) Medical per tablet hours as Branc h needed for Pain. albuterol-i 2009-04 Yes [id number] 2{puff} Inhale 2 [facility] pratropium 0-06 Puffs 4 ity of (COMBIVENT 00:00: (four) [place] INHALER) 00 times Medical 18-103 daily. Branch mcg/Actuati on inhaler montelukast 2009-04 Yes [id number] 10mg Take 1 Tab [facility] (SINGULAIR) 0-06 by mouth ity of 10 mg 00:00: daily. [place] tablet 00 Medical Branch fluticasone 2009-04 Yes 2{spray Use 2 [facility] [place] (FLONASE) 0-06 } Sprays in ity o f 50 00:00: each [place] mcg/Actuati 00 nostril Medic al on nasal daily. Branch spray traMADOL 2009-04 Yes [id number] 50mg Take 1 Tab [facility] (ULTRAM) 50 0-06 by mouth ity of mg tablet 00:00: every 6 [place] 00 (six) Medical hours as Branch needed for Pain. hydrocodone 2009-04 Yes [id number] 1{tbl} Take 1 Tab [facility] -acetaminop 0-06 by mouth ity of hen (NORCO) 00:00: every 6 [place] as 10-325 mg 00 (six) Medical per tablet hours as Branc h needed for Pain. albuterol-i 2009-04 Yes [id number] 2{puff} Inhale 2 [facility] pratropium 0-06 Puffs 4 ity of (COMBIVENT 00:00: (four) [place] INHALER) 00 times Medical 18-103 daily. Branch mcg/Actuati on inhaler montelukast 2009-04 Yes [id number] 10mg Take 1 Tab [facility] (SINGULAIR) 0-06 by mouth ity of 10 mg 00:00: daily. [place] tablet 00 Medical Branch fluticasone 2009-04 Yes 2{spray Use 2 [facility] [place] (FLONASE) 0-06 } Sprays in ity o f 50 00:00: each [place] mcg/Actuati 00 nostril Medic al on nasal daily. Branch spray traMADOL 2009-04 Yes [id number] 50mg Take 1 Tab [facility] (ULTRAM) 50 0-06 by mouth ity of mg tablet 00:00: every 6 [place] 00 (six) Medical hours as Branch needed for Pain. hydrocodone 2009-04 Yes [id number] 1{tbl} Take 1 Tab [facility] -acetaminop 0-06 by mouth ity of hen (NORCO) 00:00: every 6 [place] as 10-325 mg 00 (six) Medical per tablet hours as Branc h needed for Pain. albuterol-i 2009-04 Yes [id number] 2{puff} Inhale 2 [facility] pratropium 0-06 Puffs 4 ity of (COMBIVENT 00:00: (four) [place] INHALER) 00 times Medical 18-103 daily. Branch mcg/Actuati on inhaler montelukast 2009-04 Yes [id number] 10mg Take 1 Tab [facility] (SINGULAIR) 0-06 by mouth ity of 10 mg 00:00: daily. [place] tablet 00 Medical Branch fluticasone 2009-04 Yes 2{spray Use 2 [facility] [place] (FLONASE) 0-06 } Sprays in ity o f 50 00:00: each [place] mcg/Actuati 00 nostril Medic al on nasal daily. Branch spray traMADOL 2009-04 Yes [id number] 50mg Take 1 Tab [facility] (ULTRAM) 50 0-06 by mouth ity of mg tablet 00:00: every 6 [place] 00 (six) Medical hours as Branch needed for Pain. hydrocodone 2009-04 Yes [id number] 1{tbl} Take 1 Tab [facility] -acetaminop 0-06 by mouth ity of hen (NORCO) 00:00: every 6 [place] as 10-325 mg 00 (six) Medical per tablet hours as Branc h needed for Pain. albuterol-i 2009-04 Yes [id number] 2{puff} Inhale 2 [facility] pratropium 0-06 Puffs 4 ity of (COMBIVENT 00:00: (four) [place] INHALER) 00 times Medical 18-103 daily. Branch mcg/Actuati on inhaler montelukast 2009-04 Yes [id number] 10mg Take 1 Tab [facility] (SINGULAIR) 0-06 by mouth ity of 10 mg 00:00: daily. [place] tablet 00 Medical Branch fluticasone 2009-04 Yes 2{spray Use 2 [facility] [place] (FLONASE) 0-06 } Sprays in ity o f 50 00:00: each [place] mcg/Actuati 00 nostril Medic al on nasal daily. Branch spray traMADOL 2009-04 Yes [id number] 50mg Take 1 Tab [facility] (ULTRAM) 50 0-06 by mouth ity of mg tablet 00:00: every 6 [place] 00 (six) Medical hours as Branch needed for Pain. hydrocodone 2009-04 Yes [id number] 1{tbl} Take 1 Tab [facility] -acetaminop 0-06 by mouth ity of hen (NORCO) 00:00: every 6 [place] as 10-325 mg 00 (six) Medical per tablet hours as Branc h needed for Pain. albuterol-i 2009-04 Yes [id number] 2{puff} Inhale 2 [facility] pratropium 0-06 Puffs 4 ity of (COMBIVENT 00:00: (four) [place] INHALER) 00 times Medical 18-103 daily. Branch mcg/Actuati on inhaler montelukast 2009-04 Yes [id number] 10mg Take 1 Tab [facility] (SINGULAIR) 0-06 by mouth ity of 10 mg 00:00: daily. [place] tablet 00 Medical Branch fluticasone 2009-04 Yes 2{spray Use 2 [facility] [place] (FLONASE) 0-06 } Sprays in ity o f 50 00:00: each [place] mcg/Actuati 00 nostril Medic al on nasal daily. Branch spray traMADOL 2009-04 Yes [id number] 50mg Take 1 Tab [facility] (ULTRAM) 50 0-06 by mouth ity of mg tablet 00:00: every 6 [place] 00 (six) Medical hours as Branch needed for Pain. hydrocodone 2009-04 Yes [id number] 1{tbl} Take 1 Tab Univers -acetaminop 0-06 by mouth ity of hen (NORCO) 00:00: every 6 [place] as 10-325 mg 00 (six) Medical per tablet hours as Branc h needed for Pain. albuterol-i 2009-04 Yes [id number] 2{puff} Inhale 2 Univers pratropium 0-06 Puffs 4 ity of (COMBIVENT 00:00: (four) [place] INHALER) 00 times Medical 18-103 daily. Branch mcg/Actuati on inhaler montelukast 2009-04 Yes [id number] 10mg Take 1 Tab Univers (SINGULAIR) 0-06 by mouth ity of 10 mg 00:00: daily. [place] tablet 00 Medical Branch fluticasone 2009-04 Yes 2{spray Use 2 Un nighat (FLONASE) 0-06 } Sprays in ity o f 50 00:00: each [place] mcg/Actuati 00 nostril Medic al on nasal daily. Branch spray traMADOL 2009-04 Yes [id number] 50mg Take 1 Tab Univers (ULTRAM) 50 0-06 by mouth ity of mg tablet 00:00: every 6 [place] 00 (six) Medical hours as Branch needed for Pain. hydrocodone 2009-04 Yes [id number] 1{tbl} Take 1 Tab Univers -acetaminop 0-06 by mouth ity of hen (NORCO) 00:00: every 6 [place] as 10-325 mg 00 (six) Medical per tablet hours as Branc h needed for Pain. albuterol-i 2009-04 Yes [id number] 2{puff} Inhale 2 Univers pratropium 0-06 Puffs 4 ity of (COMBIVENT 00:00: (four) [place] INHALER) 00 times Medical 18-103 daily. Branch mcg/Actuati on inhaler montelukast 2009-04 Yes [id number] 10mg Take 1 Tab Univers (SINGULAIR) 0-06 by mouth ity of 10 mg 00:00: daily. [place] tablet 00 Medical Branch fluticasone 2009-04 Yes 2{spray Use 2 Un nighat (FLONASE) 0-06 } Sprays in ity o f 50 00:00: each [place] mcg/Actuati 00 nostril Medic al on nasal daily. Branch spray traMADOL 2009-04 Yes [id number] 50mg Take 1 Tab Univers (ULTRAM) 50 0-06 by mouth ity of mg tablet 00:00: every 6 [place] 00 (six) Medical hours as Branch needed for Pain. hydrocodone 2009-04 Yes [id number] 1{tbl} Take 1 Tab Univers -acetaminop 0-06 by mouth ity of hen (NORCO) 00:00: every 6 [place] as 10-325 mg 00 (six) Medical per tablet hours as Branc h needed for Pain. albuterol-i 2009-04 Yes [id number] 2{puff} Inhale 2 Univers pratropium 0-06 Puffs 4 ity of (COMBIVENT 00:00: (four) [place] INHALER) 00 times Medical 18-103 daily. Branch mcg/Actuati on inhaler montelukast 2009-04 Yes [id number] 10mg Take 1 Tab Univers (SINGULAIR) 0-06 by mouth ity of 10 mg 00:00: daily. [place] tablet 00 Medical Branch fluticasone 2009-04 Yes 2{spray Use 2 Un nighat (FLONASE) 0-06 } Sprays in ity o f 50 00:00: each [place] mcg/Actuati 00 nostril Medic al on nasal daily. Branch spray traMADOL 2009-04 Yes [id number] 50mg Take 1 Tab Univers (ULTRAM) 50 0-06 by mouth ity of mg tablet 00:00: every 6 [place] 00 (six) Medical hours as Branch needed for Pain. hydrocodone 2009-04 Yes [id number] 1{tbl} Take 1 Tab Univers -acetaminop 0-06 by mouth ity of hen (NORCO) 00:00: every 6 [place] as 10-325 mg 00 (six) Medical per tablet hours as Branc h needed for Pain. albuterol-i 2009-04 Yes [id number] 2{puff} Inhale 2 Univers pratropium 0-06 Puffs 4 ity of (COMBIVENT 00:00: (four) [place] INHALER) 00 times Medical 18-103 daily. Branch mcg/Actuati on inhaler montelukast 2009-04 Yes [id number] 10mg Take 1 Tab Univers (SINGULAIR) 0-06 by mouth ity of 10 mg 00:00: daily. [place] tablet 00 Medical Branch fluticasone 2009-04 Yes 2{spray Use 2 Un nighat (FLONASE) 0-06 } Sprays in ity o f 50 00:00: each [place] mcg/Actuati 00 nostril Medic al on nasal daily. Branch spray esomeprazol 2009-04- No 40mg Take 1 Cap Univers e (NEXIUM) 0- 02-23 by mouth ity of 40 mg 00:00: 00:00 daily with [place] capsule 00 :00 breakfast. Medica l Branch carvedilol 2009-04- No [id number] 25mg Take 2 U nivers (COREG) 0- 02-23 Tabs by ity of 12.5 mg 00:00: 00:00 mouth 2 [place] tablet 00 :00 (two) Medical times Branch daily with meals. valsartan 2009-04- No [id number] 320mg Take 1 Tab Univers (DIOVAN) 0 02-23 by mouth ity of 320 mg 00:00: 00:00 daily. [place] tablet 00 :00 Medical Branch metFORMIN 2009-04- No [id number] 500mg Take 1 Tab Univers (GLUCOPHAGE 0- 02-23 by mouth ity of ) 500 mg 00:00: 00:00 daily. [place] tablet 00 :00 Medical Branch loratadine 2009-04- No 10mg Take 1 Tab Univers (CLARITIN) 0- 02-23 by mouth ity of 10 mg 00:00: 00:00 daily. [place] tablet 00 :00 Medical Branch chlorhexidi Yes Swish and U nivers ne 8-31 spit out. ity of (PERIDEX) 00:00: Mouth [place] 0.12 % Liqd 00 wash, Medical swish and Branch spit, 3 temies a day x 7 days chlorhexidi 2020- No Swish and Univers ne 12-17 spit out. ity of (PERIDEX) 00:00: 00:00 Mouth [place] 0.12 % Liqd 00 :00 wash, Medical swish and Branch spit, 3 temies a day x 7 days Immunizations Ordered Filled Immunization Date Status Comments [facility] e Immunization Name Name Influenza Virus 2022-04-24 Completed Universit y of Vaccine,quad 00:00:00 [place] Medica l Im,preserve Free Branch 65+ Influenza Virus 2022-04-24 Completed Universit y of Vaccine,quad 00:00:00 [place] Medica l Im,preserve Free Branch 65+ Influenza Virus 2022-04-24 Completed Universit y of Vaccine,quad 00:00:00 [place] Medica l Im,preserve Free Branch 65+ Influenza Virus 2022-04-24 Completed Universit y of Vaccine,quad 00:00:00 [place] Medica l Im,preserve Free Branch 65+ Influenza Virus 2022-04-24 Completed Universit y of Vaccine,quad 00:00:00 [place] Medica l Im,preserve Free Branch 65+ Influenza Virus 2022-04-24 Completed Universit y of Vaccine,quad 00:00:00 [place] Medica l Im,preserve Free Branch 65+ Influenza Virus 2022-04-24 Completed Universit y of Vaccine,quad 00:00:00 [place] Medica l Im,preserve Free Branch 65+ Influenza Virus 2022-04-24 Completed Universit y of Vaccine,quad 00:00:00 [place] Medica l Im,preserve Free Branch 65+ Influenza Virus 2022-04-24 Completed Universit y of Vaccine,quad 00:00:00 [place] Medica l Im,preserve Free Branch 65+ Influenza Virus 2022-04-24 Completed Universit y of Vaccine,quad 00:00:00 [place] Medica l Im,preserve Free Branch 65+ Influenza Virus 2022-04-24 Completed Universit y of Vaccine,quad 00:00:00 [place] Medica l Im,preserve Free Branch 65+ Influenza Virus 2022-04-24 Completed Universit y of Vaccine,quad 00:00:00 [place] Medica l Im,preserve Free Branch 65+ Influenza Virus 2022-04-24 Completed Universit y of Vaccine,quad 00:00:00 [place] Medica l Im,preserve Free Branch 65+ Influenza Virus 2022-04-24 Completed Universit y of Vaccine,quad 00:00:00 [place] Medica l Im,preserve Free Branch 65+ Influenza Virus 2022-04-24 Completed Universit y of Vaccine,quad 00:00:00 [place] Medica l Im,preserve Free Branch 65+ Influenza Virus 2022-04-24 Completed Universit y of Vaccine,quad 00:00:00 [place] Medica l Im,preserve Free Branch 65+ Influenza Virus 2022-04-24 Completed Universit y of Vaccine,quad 00:00:00 [place] Medica l Im,preserve Free Branch 65+ Influenza Virus 2022-04-24 Completed Universit y of Vaccine,quad 00:00:00 [place] Medica l Im,preserve Free Branch 65+ Influenza Virus 2022-04-24 Completed Universit y of Vaccine,quad 00:00:00 [place] Medica l Im,preserve Free Branch 65+ Influenza Virus 2022-04-24 Completed Universit y of Vaccine,quad 00:00:00 [place] Medica l Im,preserve Free Branch 65+ Influenza Virus 2022-04-24 Completed Universit y of Vaccine,quad 00:00:00 [place] Medica l Im,preserve Free Branch 65+ Influenza Virus 2022-04-24 Completed Universit y of Vaccine,quad 00:00:00 [place] Medica l Im,preserve Free Branch 65+ Influenza Virus 2022-04-24 Completed Universit y of Vaccine,quad 00:00:00 [place] Medica l Im,preserve Free Branch 65+ Influenza Virus 2022-04-24 Completed Universit y of Vaccine,quad 00:00:00 [place] Medica l Im,preserve Free Branch 65+ Influenza Virus 2022-04-24 Completed Universit y of Vaccine,quad 00:00:00 [place] Medica l Im,preserve Free Branch 65+ Influenza Virus 2022-04-24 Completed Universit y of Vaccine,quad 00:00:00 [place] Medica l Im,preserve Free Branch 65+ Influenza Virus 2022-04-24 Completed Universit y of Vaccine,quad 00:00:00 [place] Medica l Im,preserve Free Branch 65+ Influenza Virus 2022-04-24 Completed Universit y of Vaccine,quad 00:00:00 [place] Medica l Im,preserve Free Branch 65+ Influenza Virus 2022-04-24 Completed Universit y of Vaccine,quad 00:00:00 [place] Medica l Im,preserve Free Branch 65+ Influenza Virus 2022-04-24 Completed Universit y of Vaccine,quad 00:00:00 [place] Medica l Im,preserve Free Branch 65+ Influenza Virus 2022-04-24 Completed Universit y of Vaccine,quad 00:00:00 [place] Medica l Im,preserve Free Branch 65+ Moderna COVID-19 2021-04-09 Completed Vaccine 00:00:00 Moderna COVID-19 2021-04-09 Completed Vaccine 00:00:00 Moderna COVID-19 2021-04-09 Completed Vaccine 00:00:00 Moderna COVID-19 2021-04-09 Completed Vaccine 00:00:00 Moderna COVID-19 2021-04-09 Completed Vaccine 00:00:00 Vital Signs Vital Name Observation Time Observation Value Comments Source Systolic blood 2022-08-10 20:10:00 167 mm[Hg] Univer sity of pressure [facility] Diastolic blood 2022-08-10 20:10:00 100 mm[Hg] Unive rsity of [facility] Heart rate 2022-08-10 20:10:00 102 /min [facility] Respiratory rate 2022-08-10 20:10:00 18 /min [facility] Oxygen saturation in 2022-08-10 20:10:00 100 /min [facility] Arterial blood by [facility] Pulse oximetry Branch Body temperature 2022-08-10 14:17:00 37.28 Justyna [facility] weight 2022-08-10 14:17:00 102.059 kg [facility] BMI 2022-08-10 14:17:00 38.62 kg/m2 [facility] Systolic blood 2022-07-24 14:54:00 134 mm[Hg] Univer sity of pressure [facility] Diastolic blood 2022-07-24 14:54:00 84 mm[Hg] Unive rsity of [facility] Heart rate 2022-07-24 14:54:00 97 /min [facility] Respiratory rate 2022-07-24 14:54:00 18 /min Univ [facility] [place] [facility] Body height 2022-07-24 14:54:00 162.6 cm [facility] [place] [facility] Body weight 2022-07-24 14:54:00 102.059 kg [facility] [place] [facility] BMI 2022-07-24 14:54:00 38.62 kg/m2 [facility] [place] [facility] Oxygen saturation in 2022-07-24 14:54:00 99 /min University of Arterial blood by [facility] Pulse oximetry Branch Systolic blood 2022-04-24 20:42:00 133 mm[Hg] Univer sity of pressure [facility] Diastolic blood 2022-04-24 20:42:00 74 mm[Hg] Unive rsity of pressure [place] [facility] Heart rate 2022-04-24 20:42:00 92 /min [facility] [place] [facility] Body temperature 2022-04-24 20:42:00 36.72 Justyna [facility] [place] [facility] Body height 2022-04-24 20:42:00 162.6 cm [facility] [place] [facility] Body weight 2022-04-24 20:42:00 98.294 kg [facility] [place] [facility] BMI 2022-04-24 20:42:00 37.20 kg/m2 [facility] [place] [facility] Oxygen saturation in 2022-04-24 20:42:00 93 /min University of Arterial blood by [facility] Pulse oximetry Branch Systolic blood 2022-04-20 20:14:00 140 mm[Hg] Univer sity of pressure [place] [facility] Diastolic blood 2022-04-20 20:14:00 83 mm[Hg] Unive rsity of pressure [facility] Heart rate 2022-04-20 20:10:00 99 /min [facility] [place] [facility] Body height 2022-04-20 20:10:00 162.6 cm [facility] [place] [facility] Body weight 2022-04-20 20:10:00 95.709 kg [facility] [place] [facility] BMI 2022-04-20 20:10:00 36.22 kg/m2 [facility] [place] [facility] Oxygen saturation in 2022-04-20 20:10:00 97 /min University of Arterial blood by [facility] Pulse oximetry Branch Body height 2022-04-03 14:19:00 162.6 cm [facility] [place] [facility] Body weight 2022-04-03 14:19:00 97.523 kg [facility] [place] [facility] BMI 2022-04-03 14:19:00 36.90 kg/m2 [facility] [place] [facility] Systolic blood 2020-06-15 19:00:00 133 mm[Hg] Univer sity of [facility] [place] [facility] Diastolic blood 2020-06-15 19:00:00 81 mm[Hg] Unive rsity of pressure [facility] Heart rate 2020-06-15 19:00:00 71 /min [facility] [place] [facility] Respiratory rate 2020-06-15 19:00:00 21 /min Univ [facility] [place] [facility] Body temperature 2020-06-15 17:24:00 35.56 Justyna Univ [facility] [place] [facility] Oxygen saturation in 2020-06-15 17:14:00 100 /min University of Arterial blood by [facility] Pulse oximetry Branch Body weight 2020-06-11 21:20:00 100.971 kg [facility] [place] [facility] BMI 2020-06-11 21:20:00 38.21 kg/m2 [facility] [place] [facility] Systolic blood 2020-06-15 19:00:00 133 mm[Hg] Univer sity of [facility] [place] [facility] Diastolic blood 2020-06-15 19:00:00 81 mm[Hg] Unive rsity of pressure [place] [facility] Heart rate 2020-06-15 19:00:00 71 /min [facility] [place] [facility] Respiratory rate 2020-06-15 19:00:00 21 /min Univ [facility] [place] [facility] Body temperature 2020-06-15 17:24:00 35.56 Justyna Univ [facility] [place] [facility] Oxygen saturation in 2020-06-15 17:14:00 100 /min University of Arterial blood by [facility] Pulse oximetry Branch Body weight 2020-06-11 21:20:00 100.971 kg [facility] [place] [facility] BMI 2020-06-11 21:20:00 38.21 kg/m2 [facility] [place] [facility] BP Systolic 2022-03-25 08:33:00 149 mm[Hg] BP Diastolic 2022-03-25 08:33:00 90 mm[Hg] Weight Measured 2022-03-25 08:33:00 211.40 pounds Height Measured 2022-03-25 08:33:00 62.00 inches Body Temperature 2022-03-25 08:33:00 97.80 degrees Heart Rate 2022-03-25 08:33:00 97.00 /min Respiratory Rate 2022-03-25 08:33:00 17.00 /min BP Systolic 2022-03-11 09:03:00 134 mm[Hg] BP [...] Date / Time Performing Clinician Source Performed CT ABDOMEN PELVIS W 2022-08-10 17:27:00 Benjamín Taylor [facility] CONTRAST Medical Branch LIPASE 2022-08-10 15:31:00 Benjamín Taylor [facility] COMP. METABOLIC PANEL 2022-08-10 15:31:00 Benjamín Taylor [facility] ([id number]) Medical Branch CBC WITH DIFF 2022-08-10 15:31:00 Benjamín Taylor [facility] URINALYSIS 2022-08-10 15:31:00 Benjamín Taylor [facility] COVID-19 (ID NOW RAPID 2022-08-10 15:31:00 Benjamín Taylor [facility] TESTING) Medical Branch CONSENT/REFUSAL FOR 2022-08-10 14:06:59 Doctor Elizabeth, [facility] DIAGNOSIS AND TREATMENT [place] [facility] [place] OPERATIVE NOTES 2022-08-05 05:01:00 Doctor Elizabeth, [facility] Name Medical [place] EXTERNAL PROVIDER RECORDS 2022-08-04 05:01:00 Doctor Elizabeth, [facility] [place] [facility] [place] CBC WITH DIFF 2022-07-30 13:22:00 Perez Hollins [facility] [place] NM MYOCARDIUM PERFUSION 2022-07-09 17:00:00 Melia PhilippeHGuillaume [facility] STRESS AND REST Medical Branch NUCLEAR STRESS TEST 2022-07-09 17:00:00 Melia Philippe K.HGuillaume [facility] CARDIOLOGY (DO NOT SCHED) Medica l Branch NUCLEAR STRESS TEST 2022-07-09 17:00:00 Melia Philippe K.HGuillaume [facility] CARDIOLOGY (DO NOT SCHED) Medica l Branch NM MYOCARDIUM PERFUSION 2022-07-09 17:00:00 Melia Philippe [facility] STRESS AND REST Medical Branch NM MYOCARDIUM PERFUSION 2022-07-09 17:00:00 Melia Philippe [facility] STRESS AND REST Medical Branch NUCLEAR STRESS TEST 2022-07-09 17:00:00 Melia Philippe [facility] CARDIOLOGY (DO NOT SCHED) Medica l Branch NM MYOCARDIUM PERFUSION 2022-07-09 17:00:00 Melia Philippe [facility] STRESS AND REST Medical Branch NUCLEAR STRESS TEST 2022-07-09 17:00:00 Melia Philippe [facility] CARDIOLOGY (DO NOT SCHED) Medica l Branch CONSENT/REFUSAL FOR 2022-07-09 13:33:42 Doctor Elizabeth, [facility] DIAGNOSIS AND TREATMENT [place] [facility] ASSIGNMENT OF BENEFITS 2022-07-09 13:33:23 Doctor Elizabeth, [facility] [place] [facility] Branch INSURANCE CORRESPONDENCE 2022-05-14 06:01:00 Doctor Johnson, [facility] [place] Medical Branch FLU 2022-04-24 21:33:53 Melia Philippe [facility] VACC(),65+YR,0.5 Medica l Branch ML,IM,ADJUVANTED,QUAD(FLU AD) HB ECG ROUTINE & RHYTHM 2022-04-24 20:38:59 Melia Philippe [facility] Medical Branch NOTICE OF BILLING 2022-04-17 16:03:01 Doctor Elizabeth, [facility] PRACTICES FOR MEDICARE [place] [facility] B ranch PATIENTS ASSIGNMENT OF BENEFITS 2022-04-03 13:53:01 Doctor Elizabeth, [facility] Name Medical Branch REFERRAL- 2022-03-21 06:01:00 Doctor Johnson [facility] REQUEST/RESPONSE [place] [facility] POCT GLUCOSE (AUTOMATED) 2020-06-15 17:39:00 Leonarda Nava [facility] [place] BASIC METABOLIC PANEL 2020-06-15 11:05:00 Jena Davidson [facility] (NA, K, CL, CO2, GLUCOSE, Medica l Branch BUN, CREATININE, CA) CBC WITH DIFF 2020-06-15 11:05:00 Jena Davidson [facility] POCT GLUCOSE (AUTOMATED) 2020-06-15 01:31:00 Leonarda Nava [facility] POCT GLUCOSE (AUTOMATED) 2020-06-14 22:14:00 Leonarda Nava [facility] POCT GLUCOSE (AUTOMATED) 2020-06-14 17:32:00 Leonarda Nava [facility] POCT GLUCOSE (AUTOMATED) 2020-06-14 13:51:00 Leonarda Nava [facility] BASIC METABOLIC PANEL 2020-06-14 10:45:00 Jena Davidson [facility] (NA, K, CL, CO2, GLUCOSE, Medica l Branch BUN, CREATININE, CA) CBC WITH DIFF 2020-06-14 10:45:00 Jena Davidson [facility] POCT GLUCOSE (AUTOMATED) 2020-06-14 05:57:00 Leonarda Nava [facility] POCT GLUCOSE (AUTOMATED) 2020-06-14 02:04:00 Leonarda Nava [facility] POCT GLUCOSE (AUTOMATED) 2020-06-13 22:36:00 Leonarda Nava [facility] POCT GLUCOSE (AUTOMATED) 2020-06-13 17:41:00 Leonarda Nava [facility] POCT GLUCOSE (AUTOMATED) 2020-06-13 14:21:00 Leonarda Nava [facility] CT ANGIOGRAM CHEST 2020-06-13 14:17:35 Carlitos Uribe [facility] BASIC METABOLIC PANEL 2020-06-13 09:46:00 [facility] (NA, K, CL, CO2, GLUCOSE, Medica l Branch BUN, CREATININE, CA) CBC WITH DIFF 2020-06-13 09:46:00 Jena Davidson [facility] PREPARE PLASMA 2020-06-13 04:34:33 [place] [facility] POCT GLUCOSE (AUTOMATED) 2020-06-12 22:57:00 Leonarda Nava [facility] NM LUNG PERFUSION ONLY 2020-06-12 18:45:00 Carlitos Uribe [facility] POCT GLUCOSE (AUTOMATED) 2020-06-12 18:06:00 Leonarda Nava [facility] POCT GLUCOSE (AUTOMATED) 2020-06-12 14:07:00 Leonarda Nava [facility] ABORH CONFIRMATION 2020-06-12 09:30:00 Leonarda [facility] [place] [facility] 2020-06-12 09:25:00 Jena Davidson [facility] HB ABO GROUPING 2020-06-12 08:57:00 ReinierDonovan rainey [place] [facility] BASIC METABOLIC PANEL 2020-06-12 08:55:00 Jena Davidson [facility] (NA, K, CL, CO2, GLUCOSE, Medica l Branch BUN, CREATININE, CA) CBC WITH DIFF 2020-06-12 08:55:00 Jena Davidson [facility] POCT GLUCOSE (AUTOMATED) 2020-06-12 02:03:00 Leonarda Nava [facility] VITAMIN B12, LEVEL 2020-06-11 23:06:00 Jena Davidson [facility] VITAMIN D, 25-OH 2020-06-11 23:06:00 Jena Davidson [facility] PROCALCITONIN 2020-06-11 23:06:00 Jena Davidson [facility] IRON PANEL 2020-06-11 23:05:00 Jena Davidson [facility] POCT GLUCOSE (AUTOMATED) 2020-06-11 22:52:00 Leonarda Nava [facility] XR CHEST 1 VW 2020-06-11 17:23:51 Leonarda Nava [facility] MAGNESIUM 2020-06-11 16:46:00 Jena Davidson [facility] TROPONIN I 2020-06-11 16:46:00 Leonarda Nava [facility] THYROID STIMULATING 2020-06-11 16:46:00 Jena Davidson [facility] [place] HORMONE [facility] HEPATIC FUNCTION PANEL 2020-06-11 16:46:00 Leonarda Nava [facility] ([id number]) (ALB,T.PRO,BILI Medical Branch T,BU/BC,ALT,AST,ALK PHOS) BASIC METABOLIC PANEL 2020-06-11 16:46:00 Leonarda Nava [facility] (NA, K, CL, CO2, GLUCOSE, Medica l Branch BUN, CREATININE, CA) CBC WITH DIFF 2020-06-11 16:46:00 Leonarda Nava [facility] GLYCOSYLATED HEMOGLOBIN 2020-06-11 16:46:00 Jnea Davidson [facility] (A1C) [facility] N-TERMINAL PRO-BNP 2020-06-11 16:46:00 Jena Davidson [facility] LACTIC ACID WHOLE BLOOD 2020-06-11 16:46:00 Leonarda Nava [facility] COVID-19 (ID NOW RAPID 2020-06-11 16:46:00 Leonarda Nava [facility] TESTING) [facility] LAB ONLY COVID 2020-06-11 16:46:00 Leonarda Nava [facility] INTERPRETATION [facility] HB ECG ROUTINE & RHYTHM 2020-06-11 16:36:07 Leonarda Nava [facility] CONSENT/REFUSAL FOR 2020-06-11 16:09:15 Doctor Elizabeth, [facility] DIAGNOSIS AND TREATMENT [place] [facility] NOTICE OF PRIVACY 2020-06-11 16:08:58 Doctor Elizabeth, [facility] PRACTICES [place] [facility] Plan of Care Planned Activity Planned Date Details Comments Source Goal Plan of Care Note [code = 28251-4] Goal Plan of Care Note [code = 51115-4] Goal Plan of Care Note [code = 23232-3] Goal Plan of Care Note [code = 38856-2] Goal Plan of Care Note [code = 13828-4] Goal Plan of Care Note [code = 31483-8] Goal Plan of Care Note [code = 11027-5] Goal Plan of Care Note [code = 60669-1] Goal Plan of Care Note [code = 96883-5] Goal Plan of Care Note [code = 89171-1] Goal Plan of Care Note [code = 73802-0] Goal Plan of Care Note [code = 42706-7] Goal Plan of Care Note [code = 39772-4] Goal Plan of Care Note [code = 58234-5] Goal Plan of Care Note [code = 08810-8] Goal Plan of Care Note [code = 86260-6] Goal Plan of Care Note [code = 25765-7] Goal Plan of Care Note [code = 71878-4] Goal Plan of Care Note [code = 28224-7] Goal Plan of Care Note [code = 45467-7] Goal Plan of Care Note [code = 95834-7] Goal Plan of Care Note [code = 56125-8] Goal Plan of Care Note [code = 39578-1] Goal Plan of Care Note [code = 49336-2] Goal Plan of Care Note [code = 29559-0] Goal Plan of Care Note [code = 03304-5] Goal Plan of Care Note [code = 74620-2] Goal Plan of Care Note [code = 24924-3] Goal Plan of Care Note [code = 26918-0] Goal Plan of Care Note [code = 82057-6] Goal Plan of Care Note [code = 63036-5] Goal Plan of Care Note [code = 32004-4] Goal Plan of Care Note [code = 61944-3] Goal Plan of Care Note [code = 06922-9] Goal Plan of Care Note [code = 22296-7] Goal Plan of Care Note [code = 42586-3] Goal Plan of Care Note [code = 95653-1] Goal Plan of Care Note [code = 55243-1] Goal Plan of Care Note [code = 53744-3] Goal Plan of Care Note [code = 03194-4] Goal Plan of Care Note [code = 74100-1] Goal Plan of Care Note [code = 87739-9] Goal Plan of Care Note [code = 49881-2] Goal Plan of Care Note [code = 00211-8] Goal Plan of Care Note [code = 44499-0] Goal Plan of Care Note [code = 27395-8] Goal Plan of Care Note [code = 39150-7] Goal Plan of Care Note [code = 52095-5] Goal Plan of Care Note [code = 58469-5] Goal Plan of Care Note [code = 05135-8] Goal Plan of Care Note [code = 29240-0] Goal Plan of Care Note [code = 07631-5] Goal Plan of Care Note [code = 59718-8] Goal Plan of Care Note [code = 06218-8] Goal Plan of Care Note [code = 20887-1] Goal Plan of Care Note [code = 15799-9] Goal Plan of Care Note [code = 92959-3] Goal Plan of Care Note [code = 49164-4] Goal Plan of Care Note [code = 69995-4] Goal Plan of Care Note [code = 61178-8] Goal Plan of Care Note [code = 05956-3] Goal Plan of Care Note [code = 30778-1] Goal Plan of Care Note [code = 93344-9] Goal Plan of Care Note [code = 02818-4] Goal Plan of Care Note [code = 29421-8] Goal Plan of Care Note [code = 28223-4] Goal Plan of Care Note [code = 63481-1] Goal Plan of Care Note [code = 48189-5] Goal Plan of Care Note [code = 01484-1] Goal Plan of Care Note [code = 27008-1] Goal Plan of Care Note [code = 49643-8] Goal Plan of Care Note [code = 22315-6] Goal Plan of Care Note [code = 65881-8] Goal Plan of Care Note [code = 04096-4] Encounters Start End Encounter Admission Attending Care Care Encounter Source Date/Time Date/Time Type Type Clinicians Facility Department ID 2022-11-10 2022-11-10 Outpatient SFA SFA [id number] Lane 10:04:11 10:04:11 [id number] F Michelet 2022-09-08 2022-09-08 Outpatient SFA SFA [id number]- Lane 08:42:33 08:42:33 [id number] F Michelet 2022-08-28 2022-08-28 Outpatient SFA SFA [id number]- 202 Lane 11:58:26 11:58:26 [id number] F Michelet 2022-08-26 2022-08-26 Office ZEENAT Fleming 1.2.840.114 [id number] Univers 15:30:00 15:45:00 Visit Dov PATTERSON 350.1.13.10 it y of [place] 4.2.7.2.686 [place] [phone] [place] sunny ANDERSON [address] MEDICAL OFFICE [facility] 2022-08-26 2022-08-26 Outpatient R BERNADETTE [facility] [id number] Univers 15:30:00 15:30:00 DOV ity [facility] 2022-08-10 2022-08-10 Emergency X [facility] ERT [id number] Univers 09:19:00 15:20:00 BENJAMÍN ity [facility] 2022-08-10 2022-08-10 Emergency [facility] 1.2.414.773 [id number] Univers 09:19:00 15:20:00 Benjamín NICHOLAS 350.1.13.10 i ty [place] [id number] [facility] [address] 2022-08-05 2022-08-05 Hospital [facility] 1.2.840.114 10 [id number] Univers 09:39:00 23:59:00 Encounter Perez VALDEZ 350.1.13.10 [place] [id number] [facility] [address] 2022-08-05 2022-08-05 [facility] [id number] Univers 00:00:00 23:59:00 PEREZ stover [facility] 2022-08-05 2022-08-05 Telephone [facility] 1.2.840.114 10 [id number] Univers 00:00:00 00:00:00 Perez Rm HEALTH 350.1.13.10 it y of [place] 4.2.7.2.686 [place] [phone] [place] sunny ANDERSON [address] MEDICAL OFFICE [facility] 2022-08-05 2022-08-05 Orders Doctor DUONG 1.2.840.114 [id number] Univers 00:00:00 00:00:00 Only Unassigned, DVAID 350.1.13.10 ity of [place] [facility] 4.2.7.2.686 [place] [phone] [address] 2022-08-04 2022-08-04 Orders Doctor AD 1.2.840.114 [id number] Univers 00:00:00 00:00:00 Only Unassigned, DAVID 350.1.13.10 ity of [place] [facility] 4.2.7.2.686 [place] [id number] [address] 2022-08-03 2022-08-03 [facility], Ang - Db [facility] 1.2.840.1 14 [id number] Univers 09:00:00 09:15:00 Visit Bernadette [facility] 350.1.13.10 ity of [place] 4.2.7.2.686 [place]?BLEA [phone] [address] OFFICE [facility] 2022-08-03 2022-08-03 Outpatient [facility] [id number] Univers 09:00:00 09:00:00 DOV ity [facility] 2022-07-30 2022-07-30 [facility], Ang - Db [facility] 1.2.840.1 14 [id number] Univers 08:00:00 08:36:35 Visit Bernadette [facility] 350.1.13.10 ity of [place] 4.2.7.2.686 [place]?BLEA [phone] [address] OFFICE [facility] 2022-07-30 2022-07-30 Out[facility] [id number] Univers 08:00:00 08:00:00 DOV ity [facility] 2022-07-29 2022-07-29 Telephone [facility] 1.2.476.599 [id number] Univers 00:00:00 00:00:00 [facility] 350.1.13.10 it y of [place] 4.2.7.2.686 [place]?BLEA [phone] [facility] 198 [facility] OFFICE [facility] 2022-07-28 2022-07-28 Telephone [facility] 1.2.840.114 10 [id number] Univers 00:00:00 00:00:00 Perez L HEALTH 350.1.13.10 it y of [place] 4.2.7.2.686 [place]?BLEA [phone] Me dicji ANDERSON 198 [facility] OFFICE [facility] 2022-07-24 2022-07-24 Outpatient [facility] [id number] Univers 10:40:00 23:59:00 DOV ity of [facility] 2022-07-24 2022-07-24 Office [facility] 1.2.840.114 [id number] Univers 10:00:00 10:59:56 Visit Dov Gibbons [facility] 350.1.13.10 it y of [facility] 4.2.7.2.686 [place] [phone] [place] sunny ANDERSON 198 [facility] 2022-07-21 2022-07-21 Telephone [facility] 1.2.805.061 [id number] Univers 00:00:00 00:00:00 Dov S HEALTH 350.1.13.10 it y of [facility] 4.2.7.2.686 [place]A [phone] [place] ANDERSON 198 [facility] 2022-07-14 2022-07-14 Telephone [facility] 1.2.093.108 [id number] Univers 00:00:00 00:00:00 Melia NICHOLAS 350.1.13.10 ity of [facility] [place] [facility] [phone] [place] dical NAL 059 [facility] 2022-07-09 2022-07-09 [facility] 1.2.840.114 [id number] Univers 08:35:04 23:59:00 Encounter Melia NICHOLAS 350.1.13.10 ity of [facility] [place] [id number] [facility] [address] 2022-07-09 2022-07-09 [facility] 1.2.840.114 [id number] Univers 08:33:40 08:34:00 Encounter Melia NICHOLAS 350.1.13.10 ity of [facility] [place] [id number] [address] 2022-07-09 2022-07-09 [facility] 1.2.840.114 [id number] Univers 08:33:23 08:34:00 Encounter Sendantonio MartinsChayitoGuillaume NICHOLAS 350.1.13.10 ity of [facility] [place] [id number] [address] 2022-07-09 2022-07-09 Outpatient R [facility] [id number] Univers 08:31:24 08:32:00 SENDIL ity [facility] 2022-07-09 2022-07-09 [facility] 1.2.840.114 [id number] Univers 08:00:00 08:32:00 Encounter Melia NICHOLSA 350.1.13.10 ity of [facility] [place] [id number] [address] 2022-06-22 2022-06-22 [facility] 1.2.344.091 [id number] Univers 00:00:00 00:00:00 [facility] 350.1.13.10 it y of [place] [facility] 4.2.7.2.686 [place]?BLEA [phone] [address] MEDICAL OFFICE [facility] 2022-06-02 2022-06-02 Outpatient [facility] [id number] Univers 00:00:00 00:00:00 SENDIL ity [facility] 2022-05-26 2022-05-26 Outpatient SFA [facility] [id number]- [address] 08:03:34 08:03:34 [id number] F Michelet 2022-05-21 2022-05-21 Telephone [facility] 1.2.850.253 [id number] Univers 00:00:00 00:00:00 Sendantonio NICHOLAS 350.1.13.10 ity of [facility] [place] [phone] [place] dical NAL 059 [facility] 2022-05-19 2022-05-19 Outpatient [facility] [id number] Univers 14:10:36 23:59:00 SENDIL ity [facility] 2022-05-14 2022-05-14 Orders Doctor DUONG 1.2.840.114 [id number] Univers 00:00:00 00:00:00 Only Unassigned, DAVID 350.1.13.10 ity of [place] [facility] 4.2.7.2.686 [place] [phone] [address] 2022-04-24 2022-04-24 Outpatient [facility] [id number] Univers 14:30:00 15:06:43 [facility] [place] [facility] 2022-04-24 Office [facility] 1.2.840.114 [id number] Univers 14:30:00 15:06:43 Visit Melia NICHOLAS 350.1.13.10 ity [facility] [place]2.[place] [phone] [address] 2022-04-20 2022-04-20 Outpatient Richard FLEMING [facility] [id number] Univers 14:24:49 23:59:00 [facility] 2022-04-20 2022-04-20 Office [facility] 1.2.840.114 [id number] Univers 14:15:00 14:58:40 Visit [facility] 350.1.13.10 it y of [place] 4.2.7.2.686 [place]?BLEA [phone] [address] OFFICE [facility] 2022-04-17 2022-04-17 Outpatient [facility] [id number] Univers 10:15:00 10:15:00 DOV [facility] 2022-04-17 2022-04-17 Orders Doctor DUONG 1.2.840.114 [id number] Univers 00:00:00 00:00:00 Only Unassigned, DAVID 350.1.13.10 ity of [place] [facility] 4.2.7.2.686 [place] [id number] [address] 2022-04-17 2022-04-17 Telephone Gurvinder [facility] 1.2.840.114 [id number] Univers 00:00:00 00:00:00 Perez PATTERSON 350.1.13.10 it y of [place] 4.2.7.2.686 [place] [phone] [place] ANDERSON [address] [place] [address] MEDICAL OFFICE [facility] 2022-04-06 2022-04-06 Telephone [facility] 1.2.243.069 [id number] Univers 00:00:00 00:00:00 Dov Gibbons HEALTH 350.1.13.10 it y of [place] [facility] 4.2.7.2.686 [place]?BLEA [phone] [place] ANDERSON [address] [place] [address] OFFICE [facility] 2022-04-03 2022-04-03 Office [facility] 1.2.840.114 [id number] Univers 08:00:00 08:30:00 Visit Dov Gibbons [facility] 350.1.13.10 it y of [place] [facility] 4.2.7.2.686 [place]?BLEA [id number] [place] sunny B[address] OFFICE [facility] 2022-04-03 2022-04-03 Outpatient R BERNADETTE [facility] [id number] Univers 08:00:00 08:00:00 DOV ity of [facility] 2022-04-03 2022-04-03 Orders Doctor DUONG 1.2.840.114 [id number] Univers 00:00:00 00:00:00 Only Unassigned, DAVID 350.1.13.10 ity of [place] [facility] 4.2.7.2.686 [place] [phone] [address] 2022-03-25 2022-03-25 Outpatient LINNETTE ANGLIN [id number]- [address] 08:24:32 08:24:32 07081 F Michelet 2022-03-25 2022-03-25 Outpatient [id number]- [id number] c2 90643y-r 00:00:00 00:00:00 Visit fed1-47dd ed1-47dd-8 -9p30-44k p20-20u672 47352vw22 97ee53 2022-03-23 2022-03-[address] 13:33:40 13:33:40 [id number] F Michelet 2022-03-21 2022-03-21 Orders Doctor AD 1.2.840.114 [id number] 00:00:00 00:00:00 Only Unassigned, DAVID 350.1.13.10 ity of [place] [facility] 4.2.7.2.686 [place] [phone] [place] [address] [address] 2022-03-16 2022-03-[address] 09:23:57 09:23:57 F Michelet 2022-03-11 2022-03-[address] 08:55:10 08:55:10 F Michelet 2022-03-11 2022-03-11 Outpatient [id number]- [id number] 5b 4122m5-5 00:00:00 00:00:00 Visit 60e7-2d45 0c1-6y89-2 -8666-d37 666-d37d83 g35284q21 859c04 2022-01-19 2022-01-[address] 12:57:51 12:57:51 F Michelet 2022-01-13 2022-01-13 Outpatient [id number]- [id number] 3090df-1 00:00:00 00:00:00 Visit 186f-4c1c 86f-4c1c-b -au3i-122 j5k-515gt3 ai55qay46 2fec32 2021-12-17 2021-12-17 Outpatient yy94j0o0- [id number] ee 85u2y2-s 00:00:00 00:00:00 Visit n83l-68jq 23d-48ae-a -u562-762 515-162f1c p9v9200oq 4409fd 2021-12-03 2021-12-03 Outpatient [id number]- [id number] 2733da-4 00:00:00 00:00:00 Visit 0hm3-4462 ec2-4664-b -ap58-l40 d06-r55n70 y0700ccl3 73dcf7 2020-06-17 2020-06-17 Transition Erika Milkatom 1.2.840.114 [id number] [facility] 00:00:00 00:00:00 of Care Mihir Felder 350.1.13.10 ity of [place] [id number] [facility] [address] 2020-06-17 2020-06-17 Transition Neeta James 1.2.840.114 [id number] 00:00:00 00:00:00 of Care Mihir Girony 350.1.13.10 [place] 4.2.7.2.686 [id number] [facility] 2020-06-11 2020-06-15 Inpatient X [facility] [id number] [facility] 10:30:00 15:18:00 CARLITOS ity of [facility] 2020-06-11 2020-06-15 [facility] Leonarda Nava [facility] 1.2.84 0.114 [id number] [facility] 10:30:00 15:18:00 Encounter Carlitos Uribe 350.1.13.10 ity of [place] Nava 4.2.7.2.686 [facility] [id number] [address] 2020-06-11 2020-06-15 [facility] Leonarda Nava [facility] 1.2.84 0.114 [id number] 10:30:00 15:18:00 Encounter Carlitos Uribe 350.1.13.10 [place] Nava 4.2.7.2.686 [facility] [id number] [facility] 2020-06-11 2020-06-11 Orders Doctor DUONG 1.2.840.114 [id number] Univers 00:00:00 00:00:00 Only Unassigned, DAVID 350.1.13.10 ity of [place] [facility] 4.2.7.2.686 [place] [phone] [facility] [address] 2020-06-11 2020-06-11 Orders Doctor AD 1.2.840.114 [id number] 00:00:00 00:00:00 Only Unassigned, DAVID 350.1.13.10 [place] [facility] 4.2.7.2.686 [id number] 009 Results Test Description Test Time Test Comments Results Result Comments Source VITAMIN D, 25 [place] 2022-09-09 11:07:15 Test Item Value Reference Range Interpretation Comme nts VITAMIN D, 25 [place] (test 30 NG/ML SEE BELOW E FFECTIVE 04/27/2022, PLEASE NOTE code = 4958) NEW METHODOLOGY IS ELECTROCHEMILUM INESCENCE BINDING ASSAY. NOTE: 25-HYDROX YVITAMIN D ASSAY INCLUDES 25-HYDROXYVITAM IN D2 AND D3. INTERPRETIVE RA NGES PEDIATRIC (<17 YEARS) . . . . . . . . . . . NG/ML 20-100ADULT: IN SUFFICIENT . . . . . . . . . . . . . . N G/ML <20 SUBOPTIMAL . . . . . . . . . . . . . . . NG/ML 20-29 OPTIMAL . . . . . . . . . . . . . . . . . NG/ML 30-100 UNLESS OTHERWISE INDICATED, ALL TESTING PERFORMED AT [employer] [address] [place] [address] EXPERIMENTAL ASSEMBLER: FLOWER SORIANO M.D. CLIA NUMBER [id number] [facility] [place]. [id number] LIPID [id number] 10:07:08 Test Item Value Reference Range Interpretation Comments CHOLESTEROL (test 182 MG/DL <200 code = 2210) TRIGLYCERIDES (test 197 MG/DL <150 H code = 2232) HDL CHOLESTEROL (test 44 MG/DL >39 code = 2220) CALC LDL CHOL (test 106 MG/DL <100 H NOTE: C ALCULATED LDL code = 2237) IS BASED ON YIMI-VEGA METHOD WHICHINCLUDES ADJUSTABLE TRIGLYCERIDE:VL DL CHOLESTEROL RAT IO.THIS FACTOR VARIES B Y MEASURED TRIGLY CERIDE AND NON-HDLCHOL ESTEROL CONCENTRATIONS WITH INCREASED CALCU LATED LDL SEENIN HIGH ER TRIGLYCERIDE OR LOWER NON-HDL SPECIME NS. FOR MOREINFORMATION , SEE CLIENT ANNOUNCE MENT AT [email or web address] RISK RATIO LDL/HDL 2.41 RATIO <3.22 (test code = 2238) COMPREHENSIVE METABOLIC [id number] 10:07:08 Test Item Value Reference Range Interpretation Comments GLUCOSE (test code = 140 MG/DL 70-99 H 2216) BUN (test code = 14 MG/DL 8-23 2207) CREATININE (test 0.71 MG/DL 0.60-1.30 code = 221) eGFR (2020 CKD-EPI) 91 ML/MIN/1.73 >60 (test code = 59629) CALC BUN/CREAT (test 20 RATIO 6-28 code = 2235) SODIUM (test code = 142 MEQ/L 028-253 7318) POTASSIUM (test code 4.0 MEQ/L 3.5-5.4 = 2227) CHLORIDE (test code 105 MEQ/L 95-107 = 2214) CARBON DIOXIDE (test 24 MEQ/L 19-31 code = 220) CALCIUM (test code = 9.0 MG/DL 8.5-10.5 2208) PROTEIN, TOTAL (test 7.5 G/DL 6.1-8.3 code = 222) ALBUMIN (test code = 4.3 G/DL 3.5-5.2 2200) CALC GLOBULIN (test 3.2 G/DL 1.9-3.7 code = 2240) CALC A/G RATIO (test 1.3 RATIO 1.0-2.6 code = 2234) BILIRUBIN, TOTAL 0.2 MG/DL See_Comment [Automated message] (test code = 220) The syste m which generated this result transmit radha reference range : <=1.2. The refe rence range was not u sed to interpret th is result as normal/abnormal . ALKALINE PHOSPHATASE 110 U/L 40-142 (test code = 2204) AST (test code = 26 U/L 9-40 2217) ALT (test code = 18 U/L 5-40 2218) [id number] 09:46:44 Test Item Value Reference Range Interpretation Comments MAGNESIUM (test code = 222) 1.9 MG/DL 1.6-2.6 HEMOGLOBIN [id number] 04:42:50 Test Item Value Reference Range Interpretation Comments HEMOGLOBIN A1c (test 8.3 % 4.2-5.6 H [employer]IC AN DIABETES code = 10580) ASSOCIATION IDELINES FOR HGB A1C: PREDIABETES/INC REASED [...] LABORATORY C ONSULTATION. CBC W/AUTO DIFF WITH [id number] 03:59:33 Test Item Value Reference Range Interpretation Comments WBC (test code = 6.9 K/UL 3.5-11.0 1001) RBC (test code = 4.77 M/UL 3.80-5.40 1002) HEMOGLOBIN (test code 13.3 G/DL 11.5-15.5 = 1003) HEMATOCRIT (test code 40.5 % 34.0-45.0 = 1004) MCV (test code = 84.9 fL 80.0-99.0 1005) MCH (test code = 27.9 PG 25.0-33.0 1006) MCHC (test code = 32.8 G/DL 31.0-36.0 1007) RDW (test code = 14.7 % 11.5-15.0 1038) NEUTROPHILS (test 75.9 % code = 1008) LYMPHOCYTES (test 14.6 % code = 1010) MONOCYTES (test code 6.9 % = 1011) EOSINOPHILS (test 1.9 % code = 1012) BASOPHILS (test code 0.1 % = 1013) IMMATURE GRANULOCYTES 0.6 % (test code = 1036) NUCLEATED RBCS (test 0.0 /100 WBC'S See_Comment [Aut omated code = 1065) message] The sy stem which generated this result transmitted reference range : 0.0. The refere nce range was not u sed to interpret th is result as normal/abnormal . PLATELET COUNT (test 138 K/UL 130-400 code = 1015) ABSOLUTE NEUTROPHILS 5.24 K/UL 1.50-7.50 (test code = 1066) ABSOLUTE LYMPHOCYTES 1.01 K/UL 1.00-4.00 (test code = 1067) ABSOLUTE MONOCYTES 0.48 K/UL 0.20-1.00 (test code = 1068) ABSOLUTE EOSINOPHILS 0.13 K/UL 0.00-0.50 (test code = 1040) ABSOLUTE BASOPHILS 0.01 K/UL 0.00-0.20 (test code = 1069) ABS IMMATURE 0.04 K/UL 0.00-0.10 GRANULOCYTES (test code = 1020) ABS NUCLEATED RBCS 0.00 K/UL 0.00-0.11 (test code = 38120) COMP. METABOLIC PANEL (74509)2022-08-10 16:29:34 Test Item Value Reference Range Interpretation Comments NA (test code = 139 mmol/L 135-145 0645995432) K (test code = 3.8 mmol/L 3.5-5.0 9321143772) CL (test code = 102 mmol/L 98-108 0193102444) CO2 TOTAL (test code = 29 mmol/L 23-31 6217611313) AGAP (test code = 8 2-16 1857389347) BUN (test code = 6 mg/dL 7-23 L 7792079224) GLUCOSE (test code = 143 mg/dL 70-110 H 4557841889) CREATININE (test code = 0.53 mg/dL 0.50-1.04 9672046316) TOTAL BILI (test code = 1.0 mg/dL 0.1-1.0 2893157936) CALCIUM (test code = 8.8 mg/dL 8.6-10.6 9482192087) T PROTEIN (test code = 8.2 g/dL 6.3-8.2 3125086758) ALBUMIN (test code = 4.4 g/dL 3.5-5.0 3640442826) ALK PHOS (test code = 94 U/L 34-122 5090172504) ALTv (test code = 28 U/L 5-35 1742-6) AST(SGOT) (test code = 40 U/L 13-40 2243700519) eGFR (test code = 114.0 mL/min/1.73m2 3296391493) ISMAEL (test code = ISMAEL) Association of [...] tests). Lab Interpretation Abnormal (test code = 91544-1) [facility] 16[facility]29[facility]14 Test Item Value Reference Range Interpretation Comments LIPASE (test code = 7821042012) 42 U/L 0-220 Lab Interpretation (test code = Normal 75880-5) [facility] [id number] 16:24:12 Test Item Value Reference Range Interpretation Comments WBC (test code = 9.84 See_Comment [Automated 1147-2) message] The sy stem which generated this result transmitted reference range : 4.30 - 11.10 10*3/?L. The reference range was not used to interpret this result as normal/abnormal . RBC (test code = 4.83 See_Comment [Automated 358-1) message] The sy stem which generated this result transmitted reference range : 3.93 - 5.25 10*6/?L. The reference range was not used to interpret this result as normal/abnormal . HGB (test code = 13.5 g/dL 11.6-15.0 718-7) HCT (test code = 42.1 % 35.7-45.2 4544-3) MCV (test code = 87.2 fL 80.6-95.5 787-2) MCH (test code = 28.0 pg 25.9-32.8 785-6) MCHC (test code = 32.1 g/dL 31.6-35.1 786-4) RDW-SD (test code = 45.4 fL 39.0-49.9 03808-2) RDW-CV (test code = 14.3 % 12.0-15.5 788-0) PLT (test code = 156 See_Comment L [Automated 777-3) message] The sy stem which generated this result transmitted reference range : 166 - 358 10*3/ ?L. The reference r ludivina was not used to interpret this result as normal/abnormal . MPV (test code = 12.0 fL 9.5-12.9 45401-6) NRBC/100 WBC (test 0.0 See_Comment [Automat ed code = 1186649046) message] The system which generated this result transmitted reference range : 0.0 - 10.0 /100 WBCs. The refer ence range was not u sed to interpret th is result as normal/abnormal . NRBC x10^3 (test code See_Comment [Auto mated = 3813824421) message] The s ystem which generated this result transmitted reference range : 10*3/?L. The reference range was not used to interpret this result as normal/abnormal . GRAN MAT (NEUT) % 77.0 % (test code = 770-8) IMM GRAN % (test code 1.00 % = 9932511545) LYMPH % (test code = 14.2 % 736-9) MONO % (test code = 6.7 % 5905-5) EOS % (test code = 0.9 % 713-8) BASO % (test code = 0.2 % 706-2) GRAN MAT x10^3(ANC) 7.57 10*3/uL 1.88-7.09 H (test code = 9064181520) IMM GRAN x10^3 (test 0.10 10*3/uL 0.00-0.06 H code = 1900034008) LYMPH x10^3 (test code 1.40 10*3/uL 1.32-3.29 = 731-0) MONO x10^3 (test code 0.66 10*3/uL 0.33-0.92 = 742-7) EOS x10^3 (test code = 0.09 10*3/uL 0.03-0.39 711-2) BASO x10^3 (test code 0.01-0.07 = 704-7) Lab Interpretation Abnormal (test code = 59055-6) [facility] WITH [id number] 19:58:11 Test Item Value Reference Range Interpretation Comments WBC (test code = 6.21 See_Comment [Automated 3300-2) message] The sy stem which generated this result transmitted reference range : 4.30 - 11.10 10*3/?L. The reference range was not used to interpret this result as normal/abnormal . RBC (test code = 4.49 See_Comment [Automated 799-8) message] The sy stem which generated this result transmitted reference range : 3.93 - 5.25 10*6/?L. The reference range was not used to interpret this result as normal/abnormal . HGB (test code = 13.0 g/dL 11.6-15.0 718-7) HCT (test code = 39.9 % 35.7-45.2 4544-3) MCV (test code = 88.9 fL 80.6-95.5 787-2) MCH (test code = 29.0 pg 25.9-32.8 785-6) MCHC (test code = 32.6 g/dL 31.6-35.1 786-4) RDW-SD (test code = 44.4 fL 39.0-49.9 51598-6) RDW-CV (test code = 13.9 % 12.0-15.5 788-0) PLT (test code = 113 See_Comment L [Automated 677-3) message] The sy stem which generated this result transmitted reference range : 166 - 358 10*3/ ?L. The reference r ludivina was not used to interpret this result as normal/abnormal . MPV (test code = 12.6 fL 9.5-12.9 24881-6) IPF % (test code = 6.9 % 1.3-7.7 Platelet count [id number]) measured by fluorescence method. NRBC/100 WBC (test 0.0 See_Comment [Automat ed code = [id number]) message] The system which generated this result transmitted reference range : 0.0 - 10.0 /100 WBCs. The refer ence range was not u sed to interpret th is result as normal/abnormal . NRBC x10^3 (test code See_Comment [Auto mated = [id number]) message] The s ystem which generated this result transmitted reference range : 10*3/?L. The reference range was not used to interpret this result as normal/abnormal . GRAN MAT (NEUT) % 68.9 % (test code = 770-8) IMM GRAN % (test code 1.00 % = [id number]) LYMPH % (test code = 19.8 % 736-9) MONO % (test code = 7.4 % 5905-5) EOS % (test code = 2.4 % 713-8) BASO % (test code = 0.5 % 706-2) GRAN MAT x10^3(ANC) 4.28 10*3/uL 1.88-7.09 (test code = [id number]) IMM GRAN x10^3 (test 0.06 10*3/uL 0.00-0.06 code = [id number]) LYMPH x10^3 (test code 1.23 10*3/uL 1.32-3.29 L = 731-0) MONO x10^3 (test code 0.46 10*3/uL 0.33-0.92 = 742-7) EOS x10^3 (test code = 0.15 10*3/uL 0.03-0.39 711-2) BASO x10^3 (test code 0.03 10*3/uL 0.01-0.07 = 704-7) LG GRAN LYMPHS (test Rare Rare code = [id number]) GIANT PLATELETS (test Present See_Comment A [Auto mated code = 5908-9) message] The system which generated this result transmitted reference range : (none). The reference range was not used to interpret this result as normal/abnormal . Lab Interpretation Abnormal (test code = 85841-8) [facility] WITH [id number] 19:58:11 Test Item Value Reference Range Interpretation Comments WBC (test code = 6.21 See_Comment [Automated 6690-2) message] The sy stem which generated this result transmitted reference range : 4.30 - 11.10 10*3/?L. The reference range was not used to interpret this result as normal/abnormal . RBC (test code = 4.49 See_Comment [Automated 789-8) message] The sy stem which generated this result transmitted reference range : 3.93 - 5.25 10*6/?L. The reference range was not used to interpret this result as normal/abnormal . HGB (test code = 13.0 g/dL 11.6-15.0 718-7) HCT (test code = 39.9 % 35.7-45.2 4544-3) MCV (test code = 88.9 fL 80.6-95.5 787-2) MCH (test code = 29.0 pg 25.9-32.8 785-6) MCHC (test code = 32.6 g/dL 31.6-35.1 786-4) RDW-SD (test code = 44.4 fL 39.0-49.9 30944-8) RDW-CV (test code = 13.9 % 12.0-15.5 788-0) PLT (test code = 113 See_Comment L [Automated 777-3) message] The sy stem which generated this result transmitted reference range : 166 - 358 10*3/ ?L. The reference r ludivina was not used to interpret this result as normal/abnormal . MPV (test code = 12.6 fL 9.5-12.9 17829-3) IPF % (test code = 6.9 % 1.3-7.7 Platelet count [id number]) measured by fluorescence method. NRBC/100 WBC (test 0.0 See_Comment [Automat ed code = 0156041033) message] The system which generated this result transmitted reference range : 0.0 - 10.0 /100 WBCs. The refer ence range was not u sed to interpret th is result as normal/abnormal . NRBC x10^3 (test code See_Comment [Auto mated = [id number]) message] The s ystem which generated this result transmitted reference range : 10*3/?L. The reference range was not used to interpret this result as normal/abnormal . GRAN MAT (NEUT) % 68.9 % (test code = 770-8) IMM GRAN % (test code 1.00 % = 3392398139) LYMPH % (test code = 19.8 % 736-9) MONO % (test code = 7.4 % 5905-5) EOS % (test code = 2.4 % 713-8) BASO % (test code = 0.5 % 706-2) GRAN MAT x10^3(ANC) 4.28 10*3/uL 1.88-7.09 (test code = 2129850167) IMM GRAN x10^3 (test 0.06 10*3/uL 0.00-0.06 code = 6992658143) LYMPH x10^3 (test code 1.23 10*3/uL 1.32-3.29 L = 731-0) MONO x10^3 (test code 0.46 10*3/uL 0.33-0.92 = 742-7) EOS x10^3 (test code = 0.15 10*3/uL 0.03-0.39 711-2) BASO x10^3 (test code 0.03 10*3/uL 0.01-0.07 = 704-7) LG GRAN LYMPHS (test Rare Rare code = 7727108060) GIANT PLATELETS (test Present See_Comment A [Auto mated code = 5908-9) message] The system which generated this result transmitted reference range : (none). The reference range was not used to interpret this result as normal/abnormal . Lab Interpretation Abnormal (test code = 24273-9) [facility] WITH [id number] 19:58:11 Test Item Value Reference Range Interpretation Comments WBC (test code = 6.21 See_Comment [Automated 3345-2) message] The sy stem which generated this result transmitted reference range : 4.30 - 11.10 10*3/?L. The reference range was not used to interpret this result as normal/abnormal . RBC (test code = 4.49 See_Comment [Automated 789-8) message] The sy stem which generated this result transmitted reference range : 3.93 - 5.25 10*6/?L. The reference range was not used to interpret this result as normal/abnormal . HGB (test code = 13.0 g/dL 11.6-15.0 718-7) HCT (test code = 39.9 % 35.7-45.2 4544-3) MCV (test code = 88.9 fL 80.6-95.5 787-2) MCH (test code = 29.0 pg 25.9-32.8 785-6) MCHC (test code = 32.6 g/dL 31.6-35.1 786-4) RDW-SD (test code = 44.4 fL 39.0-49.9 93992-7) RDW-CV (test code = 13.9 % 12.0-15.5 788-0) PLT (test code = 113 See_Comment L [Automated 777-3) message] The sy stem which generated this result transmitted reference range : 166 - 358 10*3/ ?L. The reference r ludivina was not used to interpret this result as normal/abnormal . MPV (test code = 12.6 fL 9.5-12.9 83208-2) IPF % (test code = 6.9 % 1.3-7.7 Platelet count [id number]) measured by fluorescence method. NRBC/100 WBC (test 0.0 See_Comment [Automat ed code = 3161655056) message] The system which generated this result transmitted reference range : 0.0 - 10.0 /100 WBCs. The refer ence range was not u sed to interpret th is result as normal/abnormal . NRBC x10^3 (test code See_Comment [Auto mated = 6199361059) message] The s ystem which generated this result transmitted reference range : 10*3/?L. The reference range was not used to interpret this result as normal/abnormal . GRAN MAT (NEUT) % 68.9 % (test code = 770-8) IMM GRAN % (test code 1.00 % = 1146828611) LYMPH % (test code = 19.8 % 736-9) MONO % (test code = 7.4 % 5905-5) EOS % (test code = 2.4 % 713-8) BASO % (test code = 0.5 % 706-2) GRAN MAT x10^3(ANC) 4.28 10*3/uL 1.88-7.09 (test code = 6972586280) IMM GRAN x10^3 (test 0.06 10*3/uL 0.00-0.06 code = 2677207419) LYMPH x10^3 (test code 1.23 10*3/uL 1.32-3.29 L = 731-0) MONO x10^3 (test code 0.46 10*3/uL 0.33-0.92 = 742-7) EOS x10^3 (test code = 0.15 10*3/uL 0.03-0.39 711-2) BASO x10^3 (test code 0.03 10*3/uL 0.01-0.07 = 704-7) LG GRAN LYMPHS (test Rare Rare code = 6174820526) GIANT PLATELETS (test Present See_Comment A [Auto mated code = 5908-9) message] The system which generated this result transmitted reference range : (none). The reference range was not used to interpret this result as normal/abnormal . Lab Interpretation Abnormal (test code = 67219-5) [id number] 05:16:38 Test Item Value Reference Range Interpretation Comments HEMOGLOBIN A1c (test 10.0 % 4.2-5.6 H AMERIC AN DIABETES code = 34885) ASSOCIATION IDELINES FOR HGB A1C: PREDIABETES/INC REASED RISK . . . . . . . 5 .7-6.4% DIAGNOSIS OF DI ABETES . . . . . . . . . >=6 .5% WITH CONFIRMATION OR APPROPRIATE SYMPTOMS NOTE: ASSAY MAY BE AFFECTED BY HEMOGLOBINOPATH IES (SICKLE CELL ANEMIA, S- C DISEASE, OTHERS) OR JAIDA FICIALLY LOWERED BY DECR EASED RED CELL SURVIVAL ( HEMOLYTIC ANEMIAS, BLOOD LOSS, ETC.). CONSIDER ALTERN ATE TESTING OR LABORATORY C ONSULTATION. [facility] has imp ortant pathology staff changes effective 06/17. New pathology s taff will provide uninter rupted, excellent patie nt care and clinical consul tation. See URL: [email or web address]. UNLESS OTH ERWISE INDICATED, ALL TESTING PERFORMED AT [facility] PATHOLOGY [facility] [employer], [address] CLIA: [id number], CAP: [id number] HEMOGLOBIN [id number] 00:00:00 Test Item Value Reference Range Interpretation Comments HEMOGLOBIN A1c (test code = 44060) 10.7 % HEMOGLOBIN [id number] 00:00:00 Test Item Value Reference Range Interpretation Comments HEMOGLOBIN A1c (test code = 86878) 10.7 % HEMOGLOBIN [id number] 00:00:00 Test Item Value Reference Range Interpretation Comments HEMOGLOBIN A1c (test code = 08019) 10.7 % LIPID [id number] 00:00:00 Test Item Value Reference Range Interpretation Comments CHOLESTEROL (test code = 2210) 184 MG/DL TRIGLYCERIDES (test code = 2232) 369 MG/DL HDL CHOLESTEROL (test code = 2220) 35 MG/DL CALC LDL CHOL (test code = 2237) 100 MG/DL RISK RATIO LDL/HDL (test code = 2.86 RATIO 2238) LIPID [id number] 00:00:00 Test Item Value Reference Range Interpretation Comments CHOLESTEROL (test code = 2210) 184 MG/DL TRIGLYCERIDES (test code = 2232) 369 MG/DL HDL CHOLESTEROL (test code = 2220) 35 MG/DL CALC LDL CHOL (test code = 2237) 100 MG/DL RISK RATIO LDL/HDL (test code = 2.86 RATIO 2238) [id number] 06:10:48 Test Item Value Reference Range Interpretation Comments AMYLASE (test code = 2205) 74 U/L 28-100 [id number] 06:10:48 Test Item Value Reference Range Interpretation Comments LIPASE (test code = 2058) 18 U/L 13-60 C-REACTIVE [id number] 06:10:48 Test Item Value Reference Range Interpretation Comments C-REACTIVE PROTEIN 1.6 MG/DL <0.5 H UNLESS O THERWISE (test code = 3513) INDICATED , ALL TESTING PERFORMED [facility] PATHOLOG[facility] Client Outlook [facility]. [address] [place] [address] [address] LEON DIRECTOR: DAVID GUALLPA M.D. CLIA NUMBER [id number] CAP ACCREDITATION N O. [id number] COMPREHENSIVE METABOLIC [id number] 05:50:31 Test Item Value Reference Range Interpretation Comments GLUCOSE (test code = 294 MG/DL 70-99 H 2216) BUN (test code = 11 MG/DL 8-23 2207) CREATININE (test 0.73 MG/DL 0.60-1.30 code = 2214) eGFR (2020 CKD-EPI) 88 ML/MIN/1.73 >60 (test code = 12229) CALC BUN/CREAT (test 15 RATIO 6-28 code = 2235) SODIUM (test code = 133 MEQ/L 123-422 8656) POTASSIUM (test code 4.9 MEQ/L 3.5-5.4 = 2227) CHLORIDE (test code 94 MEQ/L 95-107 L = 2214) CARBON DIOXIDE (test 28 MEQ/L 19-31 code = 220) CALCIUM (test code = 9.6 MG/DL 8.5-10.5 2208) PROTEIN, TOTAL (test 7.8 G/DL 6.1-8.3 code = 222) ALBUMIN (test code = 4.3 G/DL 3.5-5.2 [...] 161 U/L 40-142 H (test code = 2204) AST (test code = 45 U/L 9-40 H 2217) ALT (test code = 32 U/L 5-40 2218) SEDIMENTATION [id number] 03:50:19 Test Item Value Reference Range Interpretation Comments SEDIMENTATION RATE (test code = 13 MM/HOUR 0-20 1017) CBC W/AUTO DIFF WITH [id number] 02:37:15 Test Item Value Reference Range Interpretation [...] RBCS 0.00 K/UL 0.00-0.11 (test code = 43354) CBC W/AUTO [id number] 00:00:00 Test Item Value Reference Range Interpretation [...] NUCLEATED RBCS (test code = 0.00 K/UL 50084) CBC W/AUTO [id number] 00:00:00 Test Item Value Reference Range Interpretation [...] NUCLEATED RBCS (test code = 0.00 K/UL 59523) CBC W/AUTO [id number] 00:00:00 Test Item Value Reference Range Interpretation [...] NUCLEATED RBCS (test code = 0.00 K/UL 77896) COMPREHENSIVE METABOLIC [id number] 00:00:00 Test Item Value Reference Range Interpretation Comments GLUCOSE (test code = 2217) 294 MG/DL BUN (test code = 2208) 11 MG/DL CREATININE (test code = 2214) 0.73 MG/DL eGFR (2020 CKD-EPI) (test code 88 ML/MIN/1.73 = 83775) CALC BUN/CREAT (test code = 15 RATIO 2235) SODIUM (test code = 2231) 133 MEQ/L POTASSIUM (test code = 2228) 4.9 MEQ/L CHLORIDE (test code = 2215) 94 MEQ/L CARBON DIOXIDE (test code = 28 MEQ/L 2206) CALCIUM (test code = 2209) 9.6 MG/DL PROTEIN, TOTAL (test code = 7.8 G/DL 222) ALBUMIN (test code = 2201) 4.3 G/DL CALC GLOBULIN (test code = 3.5 G/DL 2240) CALC A/G RATIO (test code = 1.2 RATIO 2234) BILIRUBIN, TOTAL (test code = 0.4 MG/DL 2206) ALKALINE PHOSPHATASE (test 161 U/L code = 2204) AST (test code = 2218) 45 U/L ALT (test code = 2219) 32 U/L COMPREHENSIVE METABOLIC [id number] 00:00:00 Test Item Value Reference Range Interpretation Comments GLUCOSE (test code = 2217) 294 MG/DL BUN (test code = 2208) 11 MG/DL CREATININE (test code = 2214) 0.73 MG/DL eGFR (2020 CKD-EPI) (test code 88 ML/MIN/1.73 = 85648) CALC BUN/CREAT (test code = 15 RATIO 2235) SODIUM (test code = 2231) 133 MEQ/L POTASSIUM (test code = 2228) 4.9 MEQ/L CHLORIDE (test code = 2215) 94 MEQ/L CARBON DIOXIDE (test code = 28 MEQ/L 2206) CALCIUM (test code = 2209) 9.6 MG/DL PROTEIN, TOTAL (test code = 7.8 G/DL 2229) ALBUMIN (test code = 2201) 4.3 G/DL CALC GLOBULIN (test code = 3.5 G/DL 2240) CALC A/G RATIO (test code = 1.2 RATIO 2234) BILIRUBIN, TOTAL (test code = 0.4 MG/DL 2206) ALKALINE PHOSPHATASE (test 161 U/L code = 2204) AST (test code = 2218) 45 U/L ALT (test code = 2219) 32 U/L [id number] 00:00:00 Test Item Value Reference Range Interpretation Comments AMYLASE (test code = 2205) 74 U/L [id number] 00:00:00 Test Item Value Reference Range Interpretation Comments AMYLASE (test code = 2205) 74 U/L [id number] 00:00:00 Test Item Value Reference Range Interpretation Comments LIPASE (test code = 8) 18 U/L [id number] 00:00:00 Test Item Value Reference Range Interpretation Comments LIPASE (test code = 2058) 18 U/L [id number] 00:00:00 Test Item Value Reference Range Interpretation Comments LIPASE (test code = 2058) 18 U/L SEDIMENTATION [id number] 00:00:00 Test Item Value Reference Range Interpretation Comments SEDIMENTATION RATE (test code = 13 MM/HOUR 1017) SEDIMENTATION [id number] 00:00:00 Test Item Value Reference Range Interpretation Comments SEDIMENTATION RATE (test code = 13 MM/HOUR 1017) C-REACTIVE [id number] 00:00:00 Test Item Value Reference Range Interpretation Comments C-REACTIVE PROTEIN (test code = 1.6 MG/DL 3513) C-REACTIVE [id number] 00:00:00 Test Item Value Reference Range Interpretation Comments C-REACTIVE PROTEIN (test code = 1.6 MG/DL 3513) CBC W/AUTO [id number] 00:00:00 Test Item Value Reference Range Interpretation [...] NUCLEATED RBCS (test code = 0.00 K/UL 52771) CBC W/AUTO [id number] 00:00:00 Test Item Value Reference Range Interpretation [...] NUCLEATED RBCS (test code = 0.00 K/UL 68857) CBC W/AUTO [id number] 00:00:00 Test Item Value Reference Range Interpretation [...] NUCLEATED RBCS (test code = 0.00 K/UL 30578) COMPREHENSIVE METABOLIC [id number] 00:00:00 Test Item Value Reference Range Interpretation Comments GLUCOSE (test code = 2217) 294 MG/DL BUN (test code = 2208) 11 MG/DL CREATININE (test code = 2214) 0.73 MG/DL eGFR (2020 CKD-EPI) (test code 88 ML/MIN/1.73 = 87474) CALC BUN/CREAT (test code = 15 RATIO 2235) SODIUM (test code = 2231) 133 MEQ/L POTASSIUM (test code = 2228) 4.9 MEQ/L CHLORIDE (test code = 2215) 94 MEQ/L CARBON DIOXIDE (test code = 28 MEQ/L 2205) CALCIUM (test code = 2209) [...] code = 2219) 32 U/L COMPREHENSIVE METABOLIC [id number] 00:00:00 Test Item Value Reference Range Interpretation Comments GLUCOSE (test code = 2217) 294 MG/DL BUN (test code = 2208) 11 MG/DL CREATININE (test code = 2214) 0.73 MG/DL eGFR (2020 CKD-EPI) (test code 88 ML/MIN/1.73 = 18727) CALC BUN/CREAT (test code = 15 RATIO 2235) SODIUM (test code = 2231) 133 MEQ/L POTASSIUM (test code = 2228) 4.9 MEQ/L CHLORIDE (test code = 2215) 94 MEQ/L CARBON DIOXIDE (test code = 28 MEQ/L 2205) CALCIUM (test code = 2209) 9.6 MG/DL PROTEIN, TOTAL (test code = 7.8 G/DL 2228) ALBUMIN (test code = 2201) 4.3 G/DL CALC GLOBULIN (test code = 3.5 G/DL 2240) CALC A/G RATIO (test code = 1.2 RATIO 2234) BILIRUBIN, TOTAL (test code = 0.4 MG/DL 2207) ALKALINE PHOSPHATASE (test 161 U/L code = 2204) AST (test code = 2218) 45 U/L ALT (test code = 2219) 32 U/L [id number] 00:00:00 Test Item Value Reference Range Interpretation Comments AMYLASE (test code = 2205) 74 U/L [id number] 00:00:00 Test Item Value Reference Range Interpretation Comments AMYLASE (test code = 2205) 74 U/L [id number] 00:00:00 Test Item Value Reference Range Interpretation Comments LIPASE (test code = 2057) 18 U/L [id number] 00:00:00 Test Item Value Reference Range Interpretation Comments LIPASE (test code = 2057) 18 U/L [id number] 00:00:00 Test Item Value Reference Range Interpretation Comments LIPASE (test code = 2058) 18 U/L SEDIMENTATION [id number] 00:00:00 Test Item Value Reference Range Interpretation Comments SEDIMENTATION RATE (test code = 13 MM/HOUR 1017) SEDIMENTATION [id number] 00:00:00 Test Item Value Reference Range Interpretation Comments SEDIMENTATION RATE (test code = 13 MM/HOUR 1017) C-REACTIVE [id number] 00:00:00 Test Item Value Reference Range Interpretation Comments C-REACTIVE PROTEIN (test code = 1.6 MG/DL 3513) C-REACTIVE [id number] 00:00:00 Test Item Value Reference Range Interpretation Comments C-REACTIVE PROTEIN (test code = 1.6 MG/DL 3513) VITAMIN D, 25 [id number] 08:57:52 Test Item Value Reference Range Interpretation [...] TESTING PERFORM ED [facility], [facility]. [address] [place] [address] LABORATORY DIRE CTOR: Micheal XAVIER. CLIA NUMBER [id number] CAP ACCREDITATION N O. [id number] COMPREHENSIVE METABOLIC [id number] 08:43:08 Test Item Value Reference Range Interpretation Comments GLUCOSE (test code = 269 MG/DL 70-99 H 2216) BUN (test code = 11 MG/DL 8-2207) CREATININE (test 0.89 MG/DL 0.60-1.30 code = 221) eGFR (2020 CKD-EPI) 70 ML/MIN/1.73 >60 (test code = 95931) CALC BUN/CREAT (test 12 RATIO 6-28 code = 223) SODIUM (test code = 139 MEQ/L 271-007 1666) POTASSIUM (test code 4.2 MEQ/L 3.5-5.4 = 2227) CHLORIDE (test code 101 MEQ/L 95-107 = 221) CARBON DIOXIDE (test 24 MEQ/L 19-31 code = 220) CALCIUM (test code = 9.1 MG/DL 8.5-10.5 2208) PROTEIN, TOTAL (test 7.8 G/DL 6.1-8.3 code = 222) ALBUMIN (test code = 4.5 G/DL 3.5-5.2 2200) CALC GLOBULIN (test 3.3 G/DL 1.9-3.7 code = 224) CALC A/G RATIO (test 1.4 RATIO 1.0-2.6 code = 223) BILIRUBIN, TOTAL 0.3 MG/DL See_Comment [Automated message] [...] code = 18 U/L 5-40 2218) LIPID [id number] 08:43:08 Test Item Value Reference Range Interpretation [...] MOREINFORMATION , SEE CLIENT ANNOUNCE MENT AT [email or web address] RISK RATIO LDL/HDL 2.47 RATIO <3.22 (test code = 2238) HEMOGLOBIN [id number] 03:03:09 Test Item Value Reference Range Interpretation Comments HEMOGLOBIN A1c (test 9.3 % 4.2-5.6 H AMERIC AN DIABETES code = 43443) ASSOCIATION IDELINES FOR HGB A1C: PREDIABETES/INC REASED [...] LABORATORY C ONSULTATION. CBC W/AUTO DIFF WITH [id number] 02:21:47 Test Item Value Reference Range Interpretation [...] RBCS 0.00 K/UL 0.00-0.11 (test code = 25079) CBC W/AUTO [id number] 00:00:00 Test Item Value Reference Range Interpretation [...] NUCLEATED RBCS (test code = 0.00 K/UL 58843) CBC W/AUTO [id number] 00:00:00 Test Item Value Reference Range Interpretation [...] NUCLEATED RBCS (test code = 0.00 K/UL 87052) CBC W/AUTO [id number] 00:00:00 Test Item Value Reference Range Interpretation [...] NUCLEATED RBCS (test code = 0.00 K/UL 25258) COMPREHENSIVE METABOLIC [id number] 00:00:00 Test Item Value Reference Range Interpretation Comments GLUCOSE (test code = 2217) 269 MG/DL BUN (test code = 2208) 11 MG/DL CREATININE (test code = 2214) 0.89 MG/DL eGFR (2020 CKD-EPI) (test code 70 ML/MIN/1.73 = 92374) CALC BUN/CREAT (test code = 12 RATIO [...] BILIRUBIN, TOTAL (test code = 0.3 MG/DL 220) ALKALINE PHOSPHATASE (test 133 U/L code = 2204) AST (test code = 2218) 33 U/L ALT (test code = 2219) 18 U/L COMPREHENSIVE METABOLIC [id number] 00:00:00 Test Item Value Reference Range Interpretation Comments GLUCOSE (test code = 2217) 269 MG/DL BUN (test code = 2208) 11 MG/DL CREATININE (test code = 2214) 0.89 MG/DL eGFR (2020 CKD-EPI) (test code 70 ML/MIN/1.73 = 37484) CALC BUN/CREAT (test code = 12 RATIO [...] (test code = 2219) 18 U/L LIPID [id number] 00:00:00 Test Item Value Reference Range Interpretation Comments CHOLESTEROL (test code = 2210) 193 MG/DL TRIGLYCERIDES (test code = 2232) 261 MG/DL HDL CHOLESTEROL (test code = 2220) 45 MG/DL CALC LDL CHOL (test code = 2237) 111 MG/DL RISK RATIO LDL/HDL (test code = 2.47 RATIO 2238) LIPID [id number] 00:00:00 Test Item Value Reference Range Interpretation Comments CHOLESTEROL (test code = 2210) 193 MG/DL TRIGLYCERIDES (test code = 2232) 261 MG/DL HDL CHOLESTEROL (test code = 2220) 45 MG/DL CALC LDL CHOL (test code = 2237) 111 MG/DL RISK RATIO LDL/HDL (test code = 2.47 RATIO 2238) HEMOGLOBIN [id number] 00:00:00 Test Item Value Reference Range Interpretation Comments HEMOGLOBIN A1c (test code = 82475) 9.3 % HEMOGLOBIN [id number] 00:00:00 Test Item Value Reference Range Interpretation Comments HEMOGLOBIN A1c (test code = 52250) 9.3 % HEMOGLOBIN [id number] 00:00:00 Test Item Value Reference Range Interpretation Comments HEMOGLOBIN A1c (test code = 34779) 9.3 % VITAMIN D, 25 [id number] 00:00:00 Test Item Value Reference Range Interpretation Comments VITAMIN D, 25 OH (test code = 4958) 16 NG/ML VITAMIN D, 25 [id number] 00:00:00 Test Item Value Reference Range Interpretation Comments VITAMIN D, 25 OH (test code = 4958) 16 NG/ML CBC W/AUTO [id number] 00:00:00 Test Item Value Reference Range Interpretation [...] NUCLEATED RBCS (test code = 0.00 K/UL 41229) CBC W/AUTO [id number] 00:00:00 Test Item Value Reference Range Interpretation [...] NUCLEATED RBCS (test code = 0.00 K/UL 63019) CBC W/AUTO [id number] 00:00:00 Test Item Value Reference Range Interpretation [...] NUCLEATED RBCS (test code = 0.00 K/UL 42412) COMPREHENSIVE METABOLIC [id number] 00:00:00 Test Item Value Reference Range Interpretation Comments GLUCOSE (test code = 2217) 269 MG/DL BUN (test code = 2208) 11 MG/DL CREATININE (test code = 2214) 0.89 MG/DL eGFR (2020 CKD-EPI) (test code 70 ML/MIN/1.73 = 16938) CALC BUN/CREAT (test code = 12 RATIO [...] A/G RATIO (test code = 1.4 RATIO 4) BILIRUBIN, TOTAL (test code = 0.3 MG/DL 2206) ALKALINE PHOSPHATASE (test 133 U/L code = 2204) AST (test code = 2218) 33 U/L ALT (test code = 2219) 18 U/L COMPREHENSIVE METABOLIC [id number] 00:00:00 Test Item Value Reference Range Interpretation Comments GLUCOSE (test code = 2217) 269 MG/DL BUN (test code = 2208) 11 MG/DL CREATININE (test code = 2214) 0.89 MG/DL eGFR (2020 CKD-EPI) (test code 70 ML/MIN/1.73 = 30254) CALC BUN/CREAT (test code = 12 RATIO [...] (test code = 2219) 18 U/L LIPID [id number] 00:00:00 Test Item Value Reference Range Interpretation Comments CHOLESTEROL (test code = 2210) 193 MG/DL TRIGLYCERIDES (test code = 2232) 261 MG/DL HDL CHOLESTEROL (test code = 2220) 45 MG/DL CALC LDL CHOL (test code = 2237) 111 MG/DL RISK RATIO LDL/HDL (test code = 2.47 RATIO 2238) LIPID [id number] 00:00:00 Test Item Value Reference Range Interpretation Comments CHOLESTEROL (test code = 2210) 193 MG/DL TRIGLYCERIDES (test code = 2232) 261 MG/DL HDL CHOLESTEROL (test code = 2220) 45 MG/DL CALC LDL CHOL (test code = 2237) 111 MG/DL RISK RATIO LDL/HDL (test code = 2.47 RATIO 2238) HEMOGLOBIN [id number] 00:00:00 Test Item Value Reference Range Interpretation Comments HEMOGLOBIN A1c (test code = 91355) 9.3 % HEMOGLOBIN [id number] 00:00:00 Test Item Value Reference Range Interpretation Comments HEMOGLOBIN A1c (test code = 85388) 9.3 % HEMOGLOBIN [id number] 00:00:00 Test Item Value Reference Range Interpretation Comments HEMOGLOBIN A1c (test code = 86283) 9.3 % VITAMIN D, 25 [id number] 00:00:00 Test Item Value Reference Range Interpretation Comments VITAMIN D, 25 OH (test code = 4958) 16 NG/ML VITAMIN D, 25 [id number] 00:00:00 Test Item Value Reference Range Interpretation Comments VITAMIN D, 25 OH (test code = 4958) 16 NG/ML CBC W/AUTO [id number] 00:00:00 Test Item Value Reference Range Interpretation [...] NUCLEATED RBCS (test code = 0.00 K/UL 74419) CBC W/AUTO [id number] 00:00:00 Test Item Value Reference Range Interpretation [...] NUCLEATED RBCS (test code = 0.00 K/UL 35312) CBC W/AUTO [id number] 00:00:00 Test Item Value Reference Range Interpretation [...] NUCLEATED RBCS (test code = 0.00 K/UL 56274) COMPREHENSIVE METABOLIC [id number] 00:00:00 Test Item Value Reference Range Interpretation Comments GLUCOSE (test code = 2217) 269 MG/DL BUN (test code = 2208) 11 MG/DL CREATININE (test code = 2214) 0.89 MG/DL eGFR (2020 CKD-EPI) (test code 70 ML/MIN/1.73 = 06892) CALC BUN/CREAT (test code = 12 RATIO [...] code = 2219) 18 U/L COMPREHENSIVE METABOLIC [id number] 00:00:00 Test Item Value Reference Range Interpretation Comments GLUCOSE (test code = 2217) 269 MG/DL BUN (test code = 2208) 11 MG/DL CREATININE (test code = 2214) 0.89 MG/DL eGFR (2020 CKD-EPI) (test code 70 ML/MIN/1.73 = 23154) CALC BUN/CREAT (test code = 12 RATIO [...] (test code = 2219) 18 U/L LIPID [id number] 00:00:00 Test Item Value Reference Range Interpretation Comments CHOLESTEROL (test code = 2210) 193 MG/DL TRIGLYCERIDES (test code = 2232) 261 MG/DL HDL CHOLESTEROL (test code = 2220) 45 MG/DL CALC LDL CHOL (test code = 2237) 111 MG/DL RISK RATIO LDL/HDL (test code = 2.47 RATIO 2238) LIPID [id number] 00:00:00 Test Item Value Reference Range Interpretation Comments CHOLESTEROL (test code = 2210) 193 MG/DL TRIGLYCERIDES (test code = 2232) 261 MG/DL HDL CHOLESTEROL (test code = 2220) 45 MG/DL CALC LDL CHOL (test code = 2237) 111 MG/DL RISK RATIO LDL/HDL (test code = 2.47 RATIO 2238) HEMOGLOBIN [id number] 00:00:00 Test Item Value Reference Range Interpretation Comments HEMOGLOBIN A1c (test code = 68599) 9.3 % HEMOGLOBIN [id number] 00:00:00 Test Item Value Reference Range Interpretation Comments HEMOGLOBIN A1c (test code = 54371) 9.3 % HEMOGLOBIN [id number] 00:00:00 Test Item Value Reference Range Interpretation Comments HEMOGLOBIN A1c (test code = 48155) 9.3 % VITAMIN D, 25 [id number] 00:00:00 Test Item Value Reference Range Interpretation Comments VITAMIN D, 25 OH (test code = 4958) 16 NG/ML VITAMIN D, 25 [id number] 00:00:00 Test Item Value Reference Range Interpretation Comments VITAMIN D, 25 OH (test code = 4958) 16 NG/ML CBC W/AUTO [id number] 00:00:00 Test Item Value Reference Range Interpretation [...] NUCLEATED RBCS (test code = 0.00 K/UL 17168) CBC W/AUTO [id number] 00:00:00 Test Item Value Reference Range Interpretation [...] NUCLEATED RBCS (test code = 0.00 K/UL 35835) CBC W/AUTO [id number] 00:00:00 Test Item Value Reference Range Interpretation [...] NUCLEATED RBCS (test code = 0.00 K/UL 92261) COMPREHENSIVE METABOLIC [id number] 00:00:00 Test Item Value Reference Range Interpretation Comments GLUCOSE (test code = 2217) 269 MG/DL BUN (test code = 2208) 11 MG/DL CREATININE (test code = 2214) 0.89 MG/DL eGFR (2020 CKD-EPI) (test code 70 ML/MIN/1.73 = 86624) CALC BUN/CREAT (test code = 12 RATIO [...] code = 2219) 18 U/L COMPREHENSIVE METABOLIC [id number] 00:00:00 Test Item Value Reference Range Interpretation Comments GLUCOSE (test code = 2217) 269 MG/DL BUN (test code = 2208) 11 MG/DL CREATININE (test code = 2214) 0.89 MG/DL eGFR (2020 CKD-EPI) (test code 70 ML/MIN/1.73 = 50498) CALC BUN/CREAT (test code = 12 RATIO [...] (test code = 2219) 18 U/L LIPID [id number] 00:00:00 Test Item Value Reference Range Interpretation Comments CHOLESTEROL (test code = 2210) 193 MG/DL TRIGLYCERIDES (test code = 2232) 261 MG/DL HDL CHOLESTEROL (test code = 2220) 45 MG/DL CALC LDL CHOL (test code = 2237) 111 MG/DL RISK RATIO LDL/HDL (test code = 2.47 RATIO 2238) LIPID [id number] 00:00:00 Test Item Value Reference Range Interpretation Comments CHOLESTEROL (test code = 2210) 193 MG/DL TRIGLYCERIDES (test code = 2232) 261 MG/DL HDL CHOLESTEROL (test code = 2220) 45 MG/DL CALC LDL CHOL (test code = 2237) 111 MG/DL RISK RATIO LDL/HDL (test code = 2.47 RATIO 2238) HEMOGLOBIN [id number] 00:00:00 Test Item Value Reference Range Interpretation Comments HEMOGLOBIN A1c (test code = 11971) 9.3 % HEMOGLOBIN [id number] 00:00:00 Test Item Value Reference Range Interpretation Comments HEMOGLOBIN A1c (test code = 15446) 9.3 % HEMOGLOBIN [id number] 00:00:00 Test Item Value Reference Range Interpretation Comments HEMOGLOBIN A1c (test code = 29404) 9.3 % VITAMIN D, 25 [id number] 00:00:00 Test Item Value Reference Range Interpretation Comments VITAMIN D, 25 OH (test code = 4958) 16 NG/ML VITAMIN D, 25 [id number] 00:00:00 Test Item Value Reference Range Interpretation Comments VITAMIN D, 25 OH (test code = 4958) 16 NG/ML CBC W/AUTO [id number] 00:00:00 Test Item Value Reference Range Interpretation [...] NUCLEATED RBCS (test code = 0.00 K/UL 78506) CBC W/AUTO [id number] 00:00:00 Test Item Value Reference Range Interpretation [...] NUCLEATED RBCS (test code = 0.00 K/UL 80128) CBC W/AUTO [id number] 00:00:00 Test Item Value Reference Range Interpretation [...] NUCLEATED RBCS (test code = 0.00 K/UL 41610) COMPREHENSIVE METABOLIC [id number] 00:00:00 Test Item Value Reference Range Interpretation Comments GLUCOSE (test code = 2217) 269 MG/DL BUN (test code = 2208) 11 MG/DL CREATININE (test code = 2214) 0.89 MG/DL eGFR (2020 CKD-EPI) (test code 70 ML/MIN/1.73 = 31687) CALC BUN/CREAT (test code = 12 RATIO [...] code = 2219) 18 U/L COMPREHENSIVE METABOLIC [id number] 00:00:00 Test Item Value Reference Range Interpretation Comments GLUCOSE (test code = 2217) 269 MG/DL BUN (test code = 2208) 11 MG/DL CREATININE (test code = 2214) 0.89 MG/DL eGFR (2020 CKD-EPI) (test code 70 ML/MIN/1.73 = 78677) CALC BUN/CREAT (test code = 12 RATIO [...] (test code = 2219) 18 U/L LIPID [id number] 00:00:00 Test Item Value Reference Range Interpretation Comments CHOLESTEROL (test code = 2210) 193 MG/DL TRIGLYCERIDES (test code = 2232) 261 MG/DL HDL CHOLESTEROL (test code = 2220) 45 MG/DL CALC LDL CHOL (test code = 2237) 111 MG/DL RISK RATIO LDL/HDL (test code = 2.47 RATIO 2238) LIPID [id number] 00:00:00 Test Item Value Reference Range Interpretation Comments CHOLESTEROL (test code = 2210) 193 MG/DL TRIGLYCERIDES (test code = 2232) 261 MG/DL HDL CHOLESTEROL (test code = 2220) 45 MG/DL CALC LDL CHOL (test code = 2236) 111 MG/DL RISK RATIO LDL/HDL (test code = 2.47 RATIO 2237) HEMOGLOBIN [id number] 00:00:00 Test Item Value Reference Range Interpretation Comments HEMOGLOBIN A1c (test code = 24901) 9.3 % HEMOGLOBIN [id number] 00:00:00 Test Item Value Reference Range Interpretation Comments HEMOGLOBIN A1c (test code = 42423) 9.3 % HEMOGLOBIN [id number] 00:00:00 Test Item Value Reference Range Interpretation Comments HEMOGLOBIN A1c (test code = 23296) 9.3 % VITAMIN D, 25 [id number] 00:00:00 Test Item Value Reference Range Interpretation Comments VITAMIN D, 25 OH (test code = 4958) 16 NG/ML VITAMIN D, 25 [id number] 00:00:00 Test Item Value Reference Range Interpretation Comments VITAMIN D, 25 OH (test code = 4958) 16 NG/ML COMPREHENSIVE METABOLIC [id number] 05:43:08 Test Item Value Reference Range Interpretation Comments GLUCOSE (test code = 117 MG/DL 70-99 H 2216) BUN (test code = 16 MG/DL 8-23 2207) CREATININE (test 0.77 MG/DL 0.60-1.30 code = 221) eGFR (2020 CKD-EPI) 83 ML/MIN/1.73 >60 (test code = 23652) CALC BUN/CREAT (test 21 RATIO 6-28 code = 223) SODIUM (test code = 142 MEQ/L 512-660 8860) POTASSIUM (test code 4.4 MEQ/L 3.5-5.4 = 2227) CHLORIDE (test code 105 MEQ/L 95-107 = 2214) CARBON DIOXIDE (test 17 MEQ/L 19-31 L code = 220) CALCIUM (test code = 9.6 MG/DL 8.5-10.5 2208) PROTEIN, TOTAL (test 8.2 G/DL 6.1-8.3 code = 2228) ALBUMIN (test code = 4.5 G/DL 3.5-5.2 2200) CALC GLOBULIN (test 3.7 G/DL 1.9-3.7 code = 224) CALC A/G RATIO (test 1.2 RATIO 1.0-2.6 code = 2234) BILIRUBIN, TOTAL 0.4 MG/DL See_Comment [Automated message] (test code = 2206) The syste m which generated this result transmit radha reference range : <=1.2. The refe rence range was not u sed to interpret th is result as normal/abnormal . ALKALINE PHOSPHATASE 113 U/L 40-142 (test code = 2203) AST (test code = 39 U/L 9-40 2217) ALT (test code = 18 U/L 5-40 2218) LIPID [id number] 05:43:08 Test Item Value Reference Range Interpretation [...] MOREINFORMATION , SEE CLIENT ANNOUNCE MENT AT [email or web address] RISK RATIO LDL/HDL 2.69 RATIO <3.22 (test code = 2238) HEMOGLOBIN [id number] 03:36:34 Test Item Value Reference Range Interpretation Comments HEMOGLOBIN A1c (test 8.2 % 4.2-5.6 H [employer] DIABETES code = 68431) ASSOCIATION [employer] FOR HGB A1C: PREDIABETES/INC REASED [...] LABORATORY C ONSULTATION. CBC W/AUTO DIFF WITH [id number] 03:15:01 Test Item Value Reference Range Interpretation [...] message] code = 1065) WBC'S The system [employer] E[employer] generated this result transmitted ref erence range: [...] ABS NUCLEATED RBCS 0.00 K/UL 0.00-0.11 UNLESS OTHERWISE (test code = 58481) INDICATE D, ALL TESTING PERFORM [facility] [place] [address] [place] [address] VINCENT LEON DIRECTOR: DAVID GUALLPA M.D. CLIA NUMBER [id number] [facility] ACCREDITATION N O. [id number] HEMOGLOBIN [id number] 00:00:00 Test Item Value Reference Range Interpretation Comments HEMOGLOBIN A1c (test code = 01589) 8.2 % HEMOGLOBIN [id number] 00:00:00 Test Item Value Reference Range Interpretation Comments HEMOGLOBIN A1c (test code = 85987) 8.2 % HEMOGLOBIN [id number] 00:00:00 Test Item Value Reference Range Interpretation Comments HEMOGLOBIN A1c (test code = 68894) 8.2 % COMPREHENSIVE METABOLIC [id number] 00:00:00 Test Item Value Reference Range Interpretation Comments GLUCOSE (test code = 2217) 117 MG/DL BUN (test code = 2208) 16 MG/DL CREATININE (test code = 2214) 0.77 MG/DL eGFR (2020 CKD-EPI) (test code 83 ML/MIN/1.73 = 26976) CALC BUN/CREAT (test code = 21 RATIO [...] code = 2219) 18 U/L COMPREHENSIVE METABOLIC [id number] 00:00:00 Test Item Value Reference Range Interpretation Comments GLUCOSE (test code = 2217) 117 MG/DL BUN (test code = 2208) 16 MG/DL CREATININE (test code = 2214) 0.77 MG/DL eGFR (2020 CKD-EPI) (test code 83 ML/MIN/1.73 = 18298) CALC BUN/CREAT (test code = 21 RATIO [...] CALC GLOBULIN (test code = 3.7 G/DL 224) CALC A/G RATIO (test code = 1.2 RATIO 2234) BILIRUBIN, TOTAL (test code = 0.4 MG/DL 2206) ALKALINE PHOSPHATASE (test 113 U/L code = 2204) AST (test code = 2218) 39 U/L ALT (test code = 2219) 18 U/L LIPID [id number] 00:00:00 Test Item Value Reference Range Interpretation Comments CHOLESTEROL (test code = 2210) 180 MG/DL TRIGLYCERIDES (test code = 2232) 142 MG/DL HDL CHOLESTEROL (test code = 2220) 42 MG/DL CALC LDL CHOL (test code = 2237) 113 MG/DL RISK RATIO LDL/HDL (test code = 2.69 RATIO 2238) LIPID [id number] 00:00:00 Test Item Value Reference Range Interpretation Comments CHOLESTEROL (test code = 2210) 180 MG/DL TRIGLYCERIDES (test code = 2232) 142 MG/DL HDL CHOLESTEROL (test code = 2220) 42 MG/DL CALC LDL CHOL (test code = 2237) 113 MG/DL RISK RATIO LDL/HDL (test code = 2.69 RATIO 2238) CBC W/AUTO [id number] 00:00:00 Test Item Value Reference Range Interpretation [...] NUCLEATED RBCS (test code = 0.00 K/UL 28314) CBC W/AUTO [id number] 00:00:00 Test Item Value Reference Range Interpretation [...] NUCLEATED RBCS (test code = 0.00 K/UL 31948) CBC W/AUTO [id number] 00:00:00 Test Item Value Reference Range Interpretation [...] NUCLEATED RBCS (test code = 0.00 K/UL 31132) HEMOGLOBIN [id number] 00:00:00 Test Item Value Reference Range Interpretation Comments HEMOGLOBIN A1c (test code = 44963) 8.2 % HEMOGLOBIN [id number] 00:00:00 Test Item Value Reference Range Interpretation Comments HEMOGLOBIN A1c (test code = 40519) 8.2 % HEMOGLOBIN [id number] 00:00:00 Test Item Value Reference Range Interpretation Comments HEMOGLOBIN A1c (test code = 76495) 8.2 % COMPREHENSIVE METABOLIC [id number] 00:00:00 Test Item Value Reference Range Interpretation Comments GLUCOSE (test code = 2217) 117 MG/DL BUN (test code = 2208) 16 MG/DL CREATININE (test code = 2214) 0.77 MG/DL eGFR (2020 CKD-EPI) (test code 83 ML/MIN/1.73 = 20343) CALC BUN/CREAT (test code = 21 RATIO [...] A/G RATIO (test code = 1.2 RATIO 223) BILIRUBIN, TOTAL (test code = 0.4 MG/DL 2206) ALKALINE PHOSPHATASE (test 113 U/L code = 2203) AST (test code = 2218) 39 U/L ALT (test code = 2219) 18 U/L COMPREHENSIVE METABOLIC [id number] 00:00:00 Test Item Value Reference Range Interpretation Comments GLUCOSE (test code = 2217) 117 MG/DL BUN (test code = 2208) 16 MG/DL CREATININE (test code = 2214) 0.77 MG/DL eGFR (2020 CKD-EPI) (test code 83 ML/MIN/1.73 = 29861) CALC BUN/CREAT (test code = 21 RATIO [...] CALC GLOBULIN (test code = 3.7 G/DL 224) CALC A/G RATIO (test code = 1.2 RATIO 2234) BILIRUBIN, TOTAL (test code = 0.4 MG/DL 2206) ALKALINE PHOSPHATASE (test 113 U/L code = 2204) AST (test code = 2218) 39 U/L ALT (test code = 2219) 18 U/L LIPID [id number] 00:00:00 Test Item Value Reference Range Interpretation Comments CHOLESTEROL (test code = 2210) 180 MG/DL TRIGLYCERIDES (test code = 2232) 142 MG/DL HDL CHOLESTEROL (test code = 2220) 42 MG/DL CALC LDL CHOL (test code = 2237) 113 MG/DL RISK RATIO LDL/HDL (test code = 2.69 RATIO 2238) LIPID [id number] 00:00:00 Test Item Value Reference Range Interpretation Comments CHOLESTEROL (test code = 2210) 180 MG/DL TRIGLYCERIDES (test code = 2232) 142 MG/DL HDL CHOLESTEROL (test code = 2220) 42 MG/DL CALC LDL CHOL (test code = 2237) 113 MG/DL RISK RATIO LDL/HDL (test code = 2.69 RATIO 2238) CBC W/AUTO [id number] 00:00:00 Test Item Value Reference Range Interpretation [...] NUCLEATED RBCS (test code = 0.00 K/UL 96485) CBC W/AUTO [id number] 00:00:00 Test Item Value Reference Range Interpretation [...] NUCLEATED RBCS (test code = 0.00 K/UL 48195) CBC W/AUTO [id number] 00:00:00 Test Item Value Reference Range Interpretation [...] NUCLEATED RBCS (test code = 0.00 K/UL 04917) HEMOGLOBIN [id number] 00:00:00 Test Item Value Reference Range Interpretation Comments HEMOGLOBIN A1c (test code = 75850) 8.2 % HEMOGLOBIN [id number] 00:00:00 Test Item Value Reference Range Interpretation Comments HEMOGLOBIN A1c (test code = 29925) 8.2 % HEMOGLOBIN [id number] 00:00:00 Test Item Value Reference Range Interpretation Comments HEMOGLOBIN A1c (test code = 67994) 8.2 % COMPREHENSIVE METABOLIC [id number] 00:00:00 Test Item Value Reference Range Interpretation Comments GLUCOSE (test code = 2217) 117 MG/DL BUN (test code = 2208) 16 MG/DL CREATININE (test code = 2214) 0.77 MG/DL eGFR (2020 CKD-EPI) (test code 83 ML/MIN/1.73 = 54053) CALC BUN/CREAT (test code = 21 RATIO [...] code = 2219) 18 U/L COMPREHENSIVE METABOLIC [id number] 00:00:00 Test Item Value Reference Range Interpretation Comments GLUCOSE (test code = 2217) 117 MG/DL BUN (test code = 2208) 16 MG/DL CREATININE (test code = 2214) 0.77 MG/DL eGFR (2020 CKD-EPI) (test code 83 ML/MIN/1.73 = 48459) CALC BUN/CREAT (test code = 21 RATIO [...] (test code = 2219) 18 U/L LIPID [id number] 00:00:00 Test Item Value Reference Range Interpretation Comments CHOLESTEROL (test code = 2210) 180 MG/DL TRIGLYCERIDES (test code = 2232) 142 MG/DL HDL CHOLESTEROL (test code = 2220) 42 MG/DL CALC LDL CHOL (test code = 2237) 113 MG/DL RISK RATIO LDL/HDL (test code = 2.69 RATIO 2238) LIPID [id number] 00:00:00 Test Item Value Reference Range Interpretation Comments CHOLESTEROL (test code = 2210) 180 MG/DL TRIGLYCERIDES (test code = 2232) 142 MG/DL HDL CHOLESTEROL (test code = 2220) 42 MG/DL CALC LDL CHOL (test code = 2237) 113 MG/DL RISK RATIO LDL/HDL (test code = 2.69 RATIO 2238) CBC W/AUTO [id number] 00:00:00 Test Item Value Reference Range Interpretation [...] NUCLEATED RBCS (test code = 0.00 K/UL 22406) CBC W/AUTO [id number] 00:00:00 Test Item Value Reference Range Interpretation [...] NUCLEATED RBCS (test code = 0.00 K/UL 17788) CBC W/AUTO [id number] 00:00:00 Test Item Value Reference Range Interpretation [...] NUCLEATED RBCS (test code = 0.00 K/UL 70250) HEMOGLOBIN [id number] 00:00:00 Test Item Value Reference Range Interpretation Comments HEMOGLOBIN A1c (test code = 07166) 8.2 % HEMOGLOBIN [id number] 00:00:00 Test Item Value Reference Range Interpretation Comments HEMOGLOBIN A1c (test code = 14962) 8.2 % HEMOGLOBIN [id number] 00:00:00 Test Item Value Reference Range Interpretation Comments HEMOGLOBIN A1c (test code = 67699) 8.2 % COMPREHENSIVE METABOLIC [id number] 00:00:00 Test Item Value Reference Range Interpretation Comments GLUCOSE (test code = 2217) 117 MG/DL BUN (test code = 2208) 16 MG/DL CREATININE (test code = 2214) 0.77 MG/DL eGFR (2020 CKD-EPI) (test code 83 ML/MIN/1.73 = 52142) CALC BUN/CREAT (test code = 21 RATIO [...] code = 2219) 18 U/L COMPREHENSIVE METABOLIC [id number] 00:00:00 Test Item Value Reference Range Interpretation Comments GLUCOSE (test code = 2217) 117 MG/DL BUN (test code = 2208) 16 MG/DL CREATININE (test code = 2214) 0.77 MG/DL eGFR (2020 CKD-EPI) (test code 83 ML/MIN/1.73 = 25573) CALC BUN/CREAT (test code = 21 RATIO [...] (test code = 2219) 18 U/L LIPID [id number] 00:00:00 Test Item Value Reference Range Interpretation Comments CHOLESTEROL (test code = 2210) 180 MG/DL TRIGLYCERIDES (test code = 2232) 142 MG/DL HDL CHOLESTEROL (test code = 2220) 42 MG/DL CALC LDL CHOL (test code = 2237) 113 MG/DL RISK RATIO LDL/HDL (test code = 2.69 RATIO 2238) LIPID [id number] 00:00:00 Test Item Value Reference Range Interpretation Comments CHOLESTEROL (test code = 2210) 180 MG/DL TRIGLYCERIDES (test code = 2232) 142 MG/DL HDL CHOLESTEROL (test code = 2220) 42 MG/DL CALC LDL CHOL (test code = 2237) 113 MG/DL RISK RATIO LDL/HDL (test code = 2.69 RATIO 2238) CBC W/AUTO [id number] 00:00:00 Test Item Value Reference Range Interpretation [...] NUCLEATED RBCS (test code = 0.00 K/UL 69989) CBC W/AUTO [id number] 00:00:00 Test Item Value Reference Range Interpretation [...] NUCLEATED RBCS (test code = 0.00 K/UL 96407) CBC W/AUTO [id number] 00:00:00 Test Item Value Reference Range Interpretation [...] NUCLEATED RBCS (test code = 0.00 K/UL 32305) HEMOGLOBIN [id number] 00:00:00 Test Item Value Reference Range Interpretation Comments HEMOGLOBIN A1c (test code = 61722) 8.2 % HEMOGLOBIN [id number] 00:00:00 Test Item Value Reference Range Interpretation Comments HEMOGLOBIN A1c (test code = 74725) 8.2 % HEMOGLOBIN [id number] 00:00:00 Test Item Value Reference Range Interpretation Comments HEMOGLOBIN A1c (test code = 21651) 8.2 % COMPREHENSIVE METABOLIC [id number] 00:00:00 Test Item Value Reference Range Interpretation Comments GLUCOSE (test code = 2217) 117 MG/DL BUN (test code = 2208) 16 MG/DL CREATININE (test code = 2214) 0.77 MG/DL eGFR (2020 CKD-EPI) (test code 83 ML/MIN/1.73 = 62536) CALC BUN/CREAT (test code = 21 RATIO [...] ALKALINE PHOSPHATASE (test 113 U/L code = 2203) AST (test code = 2218) 39 U/L ALT (test code = 2219) 18 U/L COMPREHENSIVE METABOLIC [id number] 00:00:00 Test Item Value Reference Range Interpretation Comments GLUCOSE (test code = 2217) 117 MG/DL BUN (test code = 2208) 16 MG/DL CREATININE (test code = 2214) 0.77 MG/DL eGFR (2020 CKD-EPI) (test code 83 ML/MIN/1.73 = 42486) CALC BUN/CREAT (test code = 21 RATIO [...] (test code = 2219) 18 U/L LIPID [id number] 00:00:00 Test Item Value Reference Range Interpretation Comments CHOLESTEROL (test code = 2210) 180 MG/DL TRIGLYCERIDES (test code = 2232) 142 MG/DL HDL CHOLESTEROL (test code = 2220) 42 MG/DL CALC LDL CHOL (test code = 2237) 113 MG/DL RISK RATIO LDL/HDL (test code = 2.69 RATIO 2238) LIPID [id number] 00:00:00 Test Item Value Reference Range Interpretation Comments CHOLESTEROL (test code = 2210) 180 MG/DL TRIGLYCERIDES (test code = 2232) 142 MG/DL HDL CHOLESTEROL (test code = 2220) 42 MG/DL CALC LDL CHOL (test code = 2237) 113 MG/DL RISK RATIO LDL/HDL (test code = 2.69 RATIO 2238) CBC W/AUTO [id number] 00:00:00 Test Item Value Reference Range Interpretation [...] NUCLEATED RBCS (test code = 0.00 K/UL 45703) CBC W/AUTO [id number] 00:00:00 Test Item Value Reference Range Interpretation [...] NUCLEATED RBCS (test code = 0.00 K/UL 11542) CBC W/AUTO [id number] 00:00:00 Test Item Value Reference Range Interpretation [...] NUCLEATED RBCS (test code = 0.00 K/UL 29811) CULTURE, [id number] 13:08:15SPECIMEN NUMBER: [id number] CULTURE, ROUTINE SPECIMEN NUMBER: [id number] SPECIMEN COMMENT: L 1ST TOE SOURCE: TOE [...] MCG/ML. UNLESS OTHERWISE INDICATED, ALL TESTING PERFORMED [facility] [address] [place] [address] EXPERIMENTAL ASSEMBLER: DAVID GUALLPA M.D. CLIA NUMBER [id number] [facility] [place] [id number], [id number] 00:00:00 Test Item Value Reference Range Interpretation Comments CULTURE, ROUTINE (test SPECIMEN NUMBER: code = 93843) [id number] CULTURE, [id number] 00:00:00 Test Item Value Reference Range Interpretation Comments CULTURE, ROUTINE (test SPECIMEN NUMBER: code = 36095) [id number] CULTURE, [id number] 00:00:00 Test Item Value Reference Range Interpretation Comments CULTURE, ROUTINE (test SPECIMEN NUMBER: code = 24107) [id number] CULTURE, [id number] 00:00:00 Test Item Value Reference Range Interpretation Comments CULTURE, ROUTINE (test SPECIMEN NUMBER: code = 96603) [id number] CULTURE, [id number] 00:00:00 Test Item Value Reference Range Interpretation Comments CULTURE, ROUTINE (test SPECIMEN NUMBER: code = 75351) [id number] CULTURE, [id number] 00:00:00 Test Item Value Reference Range Interpretation Comments CULTURE, ROUTINE (test SPECIMEN NUMBER: code = 11799) [id number] CULTURE, [id number] 00:00:00 Test Item Value Reference Range Interpretation Comments CULTURE, ROUTINE (test SPECIMEN NUMBER: code = 73181) [id number] CULTURE, [id number] 00:00:00 Test Item Value Reference Range Interpretation Comments CULTURE, ROUTINE (test SPECIMEN NUMBER: code = 19929) [id number] CULTURE, [id number] 00:00:00 Test Item Value Reference Range Interpretation Comments CULTURE, ROUTINE (test SPECIMEN NUMBER: code = 60437) [id number] CULTURE, [id number] 00:00:00 Test Item Value Reference Range Interpretation Comments CULTURE, ROUTINE (test SPECIMEN NUMBER: code = 22961) [id number] CULTURE, [id number] 00:00:00 Test Item Value Reference Range Interpretation Comments CULTURE, ROUTINE (test SPECIMEN NUMBER: code = 63700) [id number] CULTURE, [id number] 00:00:00 Test Item Value Reference Range Interpretation Comments CULTURE, ROUTINE (test SPECIMEN NUMBER: code = 05705) [id number] CULTURE, [id number] 00:00:00 Test Item Value Reference Range Interpretation Comments CULTURE, ROUTINE (test SPECIMEN NUMBER: code = 31039) [id number] CULTURE, [id number] 00:00:00 Test Item Value Reference Range Interpretation Comments CULTURE, ROUTINE (test SPECIMEN NUMBER: code = 31733) [id number] CULTURE, [id number] 00:00:00 Test Item Value Reference Range Interpretation Comments CULTURE, ROUTINE (test SPECIMEN NUMBER: code = 80216) [id number] 00:00:00 Test Item Value Reference Range Interpretation Comments AMYLASE (test code = 2204) 107 U/L [id number] 00:00:00 Test Item Value Reference Range Interpretation Comments AMYLASE (test code = 2204) 107 U/L [id number] 00:00:00 Test Item Value Reference Range Interpretation Comments LIPASE (test code = 2057) 21 U/L [id number] 00:00:00 Test Item Value Reference Range Interpretation Comments LIPASE (test code = 2057) 21 U/L [id number] 00:00:00 Test Item Value Reference Range Interpretation Comments LIPASE (test code = 2057) 21 U/L CBC W/AUTO [id number] 00:00:00 Test Item Value Reference Range Interpretation [...] NUCLEATED RBCS (test code = 0.00 K/UL 39730) CBC W/AUTO [id number] 00:00:00 Test Item Value Reference Range Interpretation [...] NUCLEATED RBCS (test code = 0.00 K/UL 04719) CBC W/AUTO [id number] 00:00:00 Test Item Value Reference Range Interpretation [...] NUCLEATED RBCS (test code = 0.00 K/UL 65016) [id number] 00:00:00 Test Item Value Reference Range Interpretation Comments AMYLASE (test code = 2205) 107 U/L [id number] 00:00:00 Test Item Value Reference Range Interpretation Comments AMYLASE (test code = 2205) 107 U/L [id number] 00:00:00 Test Item Value Reference Range Interpretation Comments LIPASE (test code = 2057) 21 U/L [id number] 00:00:00 Test Item Value Reference Range Interpretation Comments LIPASE (test code = 2057) 21 U/L [id number] 00:00:00 Test Item Value Reference Range Interpretation Comments LIPASE (test code = 2057) 21 U/L CBC W/AUTO [id number] 00:00:00 Test Item Value Reference Range Interpretation [...] NUCLEATED RBCS (test code = 0.00 K/UL 11954) CBC W/AUTO [id number] 00:00:00 Test Item Value Reference Range Interpretation [...] NUCLEATED RBCS (test code = 0.00 K/UL 56355) CBC W/AUTO [id number] 00:00:00 Test Item Value Reference Range Interpretation [...] NUCLEATED RBCS (test code = 0.00 K/UL 91442) [id number] 00:00:00 Test Item Value Reference Range Interpretation Comments AMYLASE (test code = 2205) 107 U/L [id number] 00:00:00 Test Item Value Reference Range Interpretation Comments AMYLASE (test code = 2205) 107 U/L [id number] 00:00:00 Test Item Value Reference Range Interpretation Comments LIPASE (test code = 2057) 21 U/L [id number] 00:00:00 Test Item Value Reference Range Interpretation Comments LIPASE (test code = 2057) 21 U/L [id number] 00:00:00 Test Item Value Reference Range Interpretation Comments LIPASE (test code = 2057) 21 U/L CBC W/AUTO [id number] 00:00:00 Test Item Value Reference Range Interpretation [...] NUCLEATED RBCS (test code = 0.00 K/UL 87518) CBC W/AUTO [id number] 00:00:00 Test Item Value Reference Range Interpretation [...] NUCLEATED RBCS (test code = 0.00 K/UL 33380) CBC W/AUTO [id number] 00:00:00 Test Item Value Reference Range Interpretation [...] NUCLEATED RBCS (test code = 0.00 K/UL 02216) [id number] 00:00:00 Test Item Value Reference Range Interpretation Comments AMYLASE (test code = 2205) 107 U/L [id number] 00:00:00 Test Item Value Reference Range Interpretation Comments AMYLASE (test code = 2205) 107 U/L [id number] 00:00:00 Test Item Value Reference Range Interpretation Comments LIPASE (test code = 2057) 21 U/L [id number] 00:00:00 Test Item Value Reference Range Interpretation Comments LIPASE (test code = 2057) 21 U/L [id number] 00:00:00 Test Item Value Reference Range Interpretation Comments LIPASE (test code = 8) 21 U/L CBC W/AUTO [id number] 00:00:00 Test Item Value Reference Range Interpretation [...] NUCLEATED RBCS (test code = 0.00 K/UL 35451) CBC W/AUTO [id number] 00:00:00 Test Item Value Reference Range Interpretation [...] NUCLEATED RBCS (test code = 0.00 K/UL 85967) CBC W/AUTO [id number] 00:00:00 Test Item Value Reference Range Interpretation [...] NUCLEATED RBCS (test code = 0.00 K/UL 00482) [id number] 00:00:00 Test Item Value Reference Range Interpretation Comments AMYLASE (test code = 2205) 107 U/L [id number] 00:00:00 Test Item Value Reference Range Interpretation Comments AMYLASE (test code = 2205) 107 U/L [id number] 00:00:00 Test Item Value Reference Range Interpretation Comments LIPASE (test code = 2057) 21 U/L [id number] 00:00:00 Test Item Value Reference Range Interpretation Comments LIPASE (test code = 2057) 21 U/L [id number] 00:00:00 Test Item Value Reference Range Interpretation Comments LIPASE (test code = 2057) 21 U/L CBC W/AUTO [id number] 00:00:00 Test Item Value Reference Range Interpretation [...] NUCLEATED RBCS (test code = 0.00 K/UL 62435) CBC W/AUTO [id number] 00:00:00 Test Item Value Reference Range Interpretation [...] NUCLEATED RBCS (test code = 0.00 K/UL 01196) CBC W/AUTO [id number] 00:00:00 Test Item Value Reference Range Interpretation [...] NUCLEATED RBCS (test code = 0.00 K/UL 50928) HEMOGLOBIN [id number] 00:00:00 Test Item Value Reference Range Interpretation Comments HEMOGLOBIN A1c (test code = 19090) 9.5 % HEMOGLOBIN [id number] 00:00:00 Test Item Value Reference Range Interpretation Comments HEMOGLOBIN A1c (test code = 50983) 9.5 % HEMOGLOBIN [id number] 00:00:00 Test Item Value Reference Range Interpretation Comments HEMOGLOBIN A1c (test code = 87290) 9.5 % HEMOGLOBIN [id number] 00:00:00 Test Item Value Reference Range Interpretation Comments HEMOGLOBIN A1c (test code = 38414) 9.5 % HEMOGLOBIN [id number] 00:00:00 Test Item Value Reference Range Interpretation Comments HEMOGLOBIN A1c (test code = 23176) 9.5 % HEMOGLOBIN [id number] 00:00:00 Test Item Value Reference Range Interpretation Comments HEMOGLOBIN A1c (test code = 90379) 9.5 % HEMOGLOBIN [id number] 00:00:00 Test Item Value Reference Range Interpretation Comments HEMOGLOBIN A1c (test code = 06786) 9.5 % HEMOGLOBIN [id number] 00:00:00 Test Item Value Reference Range Interpretation Comments HEMOGLOBIN A1c (test code = 49867) 9.5 % HEMOGLOBIN [id number] 00:00:00 Test Item Value Reference Range Interpretation Comments HEMOGLOBIN A1c (test code = 50909) 9.5 % HEMOGLOBIN [id number] 00:00:00 Test Item Value Reference Range Interpretation Comments HEMOGLOBIN A1c (test code = 74236) 9.5 % HEMOGLOBIN [id number] 00:00:00 Test Item Value Reference Range Interpretation Comments HEMOGLOBIN A1c (test code = 07199) 9.5 % HEMOGLOBIN [id number] 00:00:00 Test Item Value Reference Range Interpretation Comments HEMOGLOBIN A1c (test code = 00311) 9.5 % HEMOGLOBIN [id number] 00:00:00 Test Item Value Reference Range Interpretation Comments HEMOGLOBIN A1c (test code = 93218) 9.5 % HEMOGLOBIN [id number] 00:00:00 Test Item Value Reference Range Interpretation Comments HEMOGLOBIN A1c (test code = 52365) 9.5 % HEMOGLOBIN [id number] 00:00:00 Test Item Value Reference Range Interpretation Comments HEMOGLOBIN A1c (test code = 66060) 9.5 % COMPREHENSIVE METABOLIC [id number] 00:00:00 Test Item Value Reference Range Interpretation Comments GLUCOSE (test code = 2217) 268 MG/DL BUN (test code = 2208) 13 MG/DL CREATININE (test code = 2214) 0.71 MG/DL eGFR AMER. (test code 101 ML/MIN/1.73 = 55382) eGFR NON- AMER. (test 87 ML/MIN/1.73 code = 85378) CALC BUN/CREAT (test code = 18 RATIO [...] code = 2219) 20 U/L COMPREHENSIVE METABOLIC [id number] 00:00:00 Test Item Value Reference Range Interpretation Comments GLUCOSE (test code = 2217) 268 MG/DL BUN (test code = 2208) 13 MG/DL CREATININE (test code = 2214) 0.71 MG/DL eGFR AMER. (test code 101 ML/MIN/1.73 = 01366) eGFR NON- AMER. (test 87 ML/MIN/1.73 code = 99387) CALC BUN/CREAT (test code = 18 RATIO [...] (test code = 2219) 20 U/L LIPID [id number] 00:00:00 Test Item Value Reference Range Interpretation Comments CHOLESTEROL (test code = 2210) 205 MG/DL TRIGLYCERIDES (test code = 2232) 262 MG/DL HDL CHOLESTEROL (test code = 2220) 41 MG/DL CALC LDL CHOL (test code = 2237) 124 MG/DL RISK RATIO LDL/HDL (test code = 3.02 RATIO 2238) LIPID [id number] 00:00:00 Test Item Value Reference Range Interpretation Comments CHOLESTEROL (test code = 2210) 205 MG/DL TRIGLYCERIDES (test code = 2232) 262 MG/DL HDL CHOLESTEROL (test code = 2220) 41 MG/DL CALC LDL CHOL (test code = 2237) 124 MG/DL RISK RATIO LDL/HDL (test code = 3.02 RATIO 2238) COMPREHENSIVE METABOLIC [id number] 00:00:00 Test Item Value Reference Range Interpretation Comments GLUCOSE (test code = 2217) 268 MG/DL BUN (test code = 2208) 13 MG/DL CREATININE (test code = 2214) 0.71 MG/DL eGFR AMER. (test code 101 ML/MIN/1.73 = 71761) eGFR NON- AMER. (test 87 ML/MIN/1.73 code = 66701) CALC BUN/CREAT (test code = 18 RATIO [...] code = 2219) 20 U/L COMPREHENSIVE METABOLIC [id number] 00:00:00 Test Item Value Reference Range Interpretation Comments GLUCOSE (test code = 2217) 268 MG/DL BUN (test code = 2208) 13 MG/DL CREATININE (test code = 2214) 0.71 MG/DL eGFR AMER. (test code 101 ML/MIN/1.73 = 45802) eGFR NON- AMER. (test 87 ML/MIN/1.73 code = 13769) CALC BUN/CREAT (test code = 18 RATIO [...] (test code = 2219) 20 U/L LIPID [id number] 00:00:00 Test Item Value Reference Range Interpretation Comments CHOLESTEROL (test code = 2210) 205 MG/DL TRIGLYCERIDES (test code = 2232) 262 MG/DL HDL CHOLESTEROL (test code = 2220) 41 MG/DL CALC LDL CHOL (test code = 2237) 124 MG/DL RISK RATIO LDL/HDL (test code = 3.02 RATIO 2238) LIPID [id number] 00:00:00 Test Item Value Reference Range Interpretation Comments CHOLESTEROL (test code = 2210) 205 MG/DL TRIGLYCERIDES (test code = 2232) 262 MG/DL HDL CHOLESTEROL (test code = 2220) 41 MG/DL CALC LDL CHOL (test code = 2237) 124 MG/DL RISK RATIO LDL/HDL (test code = 3.02 RATIO 2238) COMPREHENSIVE METABOLIC [id number] 00:00:00 Test Item Value Reference Range Interpretation Comments GLUCOSE (test code = 2217) 268 MG/DL BUN (test code = 2208) 13 MG/DL CREATININE (test code = 2214) 0.71 MG/DL eGFR AMER. (test code 101 ML/MIN/1.73 = 89994) eGFR NON- AMER. (test 87 ML/MIN/1.73 code = 88911) CALC BUN/CREAT (test code = 18 RATIO [...] code = 2219) 20 U/L COMPREHENSIVE METABOLIC [id number] 00:00:00 Test Item Value Reference Range Interpretation Comments GLUCOSE (test code = 2217) 268 MG/DL BUN (test code = 2208) 13 MG/DL CREATININE (test code = 2214) 0.71 MG/DL eGFR AMER. (test code 101 ML/MIN/1.73 = 29359) eGFR NON- AMER. (test 87 ML/MIN/1.73 code = 32736) CALC BUN/CREAT (test code = 18 RATIO [...] (test code = 2219) 20 U/L LIPID [id number] 00:00:00 Test Item Value Reference Range Interpretation Comments CHOLESTEROL (test code = 2210) 205 MG/DL TRIGLYCERIDES (test code = 2232) 262 MG/DL HDL CHOLESTEROL (test code = 2220) 41 MG/DL CALC LDL CHOL (test code = 2237) 124 MG/DL RISK RATIO LDL/HDL (test code = 3.02 RATIO 2238) LIPID [id number] 00:00:00 Test Item Value Reference Range Interpretation Comments CHOLESTEROL (test code = 2210) 205 MG/DL TRIGLYCERIDES (test code = 2232) 262 MG/DL HDL CHOLESTEROL (test code = 2220) 41 MG/DL CALC LDL CHOL (test code = 2237) 124 MG/DL RISK RATIO LDL/HDL (test code = 3.02 RATIO 2238) COMPREHENSIVE METABOLIC [id number] 00:00:00 Test Item Value Reference Range Interpretation Comments GLUCOSE (test code = 2217) 268 MG/DL BUN (test code = 2208) 13 MG/DL CREATININE (test code = 2214) 0.71 MG/DL eGFR AMER. (test code 101 ML/MIN/1.73 = 40048) eGFR NON- AMER. (test 87 ML/MIN/1.73 code = 21539) CALC BUN/CREAT (test code = 18 RATIO [...] code = 2219) 20 U/L COMPREHENSIVE METABOLIC [id number] 00:00:00 Test Item Value Reference Range Interpretation Comments GLUCOSE (test code = 2217) 268 MG/DL BUN (test code = 2208) 13 MG/DL CREATININE (test code = 2214) 0.71 MG/DL eGFR AMER. (test code 101 ML/MIN/1.73 = 99669) eGFR NON- AMER. (test 87 ML/MIN/1.73 code = 40089) CALC BUN/CREAT (test code = 18 RATIO [...] A/G RATIO (test code = 1.4 RATIO 4) BILIRUBIN, TOTAL (test code = 0.4 MG/DL 2206) ALKALINE PHOSPHATASE (test 144 U/L code = 2204) AST (test code = 2218) 32 U/L ALT (test code = 2219) 20 U/L LIPID [id number] 00:00:00 Test Item Value Reference Range Interpretation Comments CHOLESTEROL (test code = 2210) 205 MG/DL TRIGLYCERIDES (test code = 2232) 262 MG/DL HDL CHOLESTEROL (test code = 2220) 41 MG/DL CALC LDL CHOL (test code = 2237) 124 MG/DL RISK RATIO LDL/HDL (test code = 3.02 RATIO 2238) LIPID [id number] 00:00:00 Test Item Value Reference Range Interpretation Comments CHOLESTEROL (test code = 2210) 205 MG/DL TRIGLYCERIDES (test code = 2232) 262 MG/DL HDL CHOLESTEROL (test code = 2220) 41 MG/DL CALC LDL CHOL (test code = 2237) 124 MG/DL RISK RATIO LDL/HDL (test code = 3.02 RATIO 2238) COMPREHENSIVE METABOLIC [id number] 00:00:00 Test Item Value Reference Range Interpretation Comments GLUCOSE (test code = 2217) 268 MG/DL BUN (test code = 2208) 13 MG/DL CREATININE (test code = 2214) 0.71 MG/DL eGFR AMER. (test code 101 ML/MIN/1.73 = 45269) eGFR NON- AMER. (test 87 ML/MIN/1.73 code = 45632) CALC BUN/CREAT (test code = 18 RATIO [...] code = 2219) 20 U/L COMPREHENSIVE METABOLIC [id number] 00:00:00 Test Item Value Reference Range Interpretation Comments GLUCOSE (test code = 2217) 268 MG/DL BUN (test code = 2208) 13 MG/DL CREATININE (test code = 2214) 0.71 MG/DL eGFR AMER. (test code 101 ML/MIN/1.73 = 27528) eGFR NON- AMER. (test 87 ML/MIN/1.73 code = 99877) CALC BUN/CREAT (test code = 18 RATIO [...] (test code = 2219) 20 U/L LIPID [id number] 00:00:00 Test Item Value Reference Range Interpretation Comments CHOLESTEROL (test code = 2210) 205 MG/DL TRIGLYCERIDES (test code = 2232) 262 MG/DL HDL CHOLESTEROL (test code = 2220) 41 MG/DL CALC LDL CHOL (test code = 2237) 124 MG/DL RISK RATIO LDL/HDL (test code = 3.02 RATIO 2238) LIPID [id number] 00:00:00 Test Item Value Reference Range Interpretation [...] Interpretation Comments POCT GLU (test code = 2274712662) 127 mg/dL 70-110 H Lab Interpretation (test code = Abnormal 84298-3) [facility] 14:28:00 Test Item Value Reference Range Interpretation Comments POCT GLU (test code = 1586078671) 151 mg/dL 70-110 H Lab Interpretation (test code = Abnormal 17978-8) [facility] (NA, K, CL, CO2, GLUCOSE, BUN, CREATININE, CA)2020-06-15 12:15:00 Test Item Value Reference Range Interpretation Comments NA (test code = 141 mmol/L 135-145 4388013501) K (test code = 3.6 mmol/L 3.5-5 2441687325) CL (test code = 105 mmol/L 98-108 6749673044) CO2 TOTAL (test code = 30 mmol/L 23-31 5653212890) AGAP (test code = 2-16 9987414511) BUN (test code = 15 mg/dL 7-23 7388320002) GLUCOSE (test code = 89 mg/dL 70-110 9825374336) CREATININE (test code 0.57 mg/dL 0.5-1.04 = 2670156831) CALCIUM (test code = 8.9 mg/dL 8.6-10.6 0900338816) eGFR Calculation mL/min/1.73m2 (Non-) (test code = 3433583303) eGFR Calculation mL/min/1.73m2 () (test code = 7825051832) ISMAEL (test code = ISMAEL) Association of [...] or urine or abnormalities in imaging tests). [facility] with [id number] 12:07:00 Test Item Value Reference Range Interpretation [...] RDW-SD (test code = 47.9 fL 39-49.9 57708-9) RDW-CV (test code = 15.2 % 12-15.5 788-0) PLT (test code = See_Comment L [Automated 777-3) message] The sy stem which generated this result transmitted reference range : 166 - 358 10*3/ ?L. The reference r ludivina was not used to interpret this result as normal/abnormal . MPV (test code = 12.1 fL 9.5-12.9 88236-3) NRBC/100 WBC (test See_Comment [Automat ed code = 7247488422) message] The system which generated this result transmitted reference range : 0.0 - 10.0 /100 WBCs. The refer ence range was not u sed to interpret th is result as normal/abnormal . NRBC x10^3 (test code <0.01 See_Comment [Auto mated = 5834216764) message] The s ystem which generated this result transmitted reference range : 10*3/?L. The reference range was not used to interpret this result as normal/abnormal . GRAN MAT (NEUT) % 70.9 % (test code = 770-8) IMM GRAN % (test code 0.50 % = 2137435797) LYMPH % (test code = 20.7 % 736-9) MONO % (test code = 7.9 % 5905-5) EOS % (test code = 0.0 % 713-8) BASO % (test code = 0.0 % 706-2) GRAN MAT x10^3(ANC) 2.87 10*3/uL 1.88-7.09 (test code = 6948876668) IMM GRAN x10^3 (test <0.03 0-0.06 code = 4855743393) LYMPH x10^3 (test code 0.84 10*3/uL 1.32-3.29 L = 731-0) MONO x10^3 (test code 0.32 10*3/uL 0.33-0.92 L = 742-7) EOS x10^3 (test code = <0.03 0.03-0.39 L 711-2) BASO x10^3 (test code <0.03 0.01-0.07 = 704-7) Lab Interpretation Abnormal (test code = 47745-4) [facility] GLUCOSE (AUTOMATED)2020-06-14 22:51:00 Test Item Value Reference Range Interpretation Comments POCT GLU (test code = 7597671448) 162 mg/dL 70-110 H Lab Interpretation (test code = Abnormal 38563-2) [facility] GLUCOSE (AUTOMATED)2020-06-14 17:54:00 Test Item Value Reference Range Interpretation Comments POCT GLU (test code = 2680632475) 156 mg/dL 70-110 H Lab Interpretation (test code = Abnormal 15624-3) [facility] GLUCOSE (AUTOMATED)2020-06-14 14:57:00 Test Item Value Reference Range Interpretation Comments POCT GLU (test code = 5581390737) 179 mg/dL 70-110 H Lab Interpretation (test code = Abnormal 10900-9) [facility] Metabolic Panel (NA, K, CL, CO2, GLUCOSE, BUN, CREATININE, CA)2020-06-14 14:40:00 Test Item Value Reference Range Interpretation Comments NA (test code = 138 mmol/L 135-145 5489457869) K (test code = 4.1 mmol/L 3.5-5 1079825591) CL (test code = 104 mmol/L 98-108 4177408984) CO2 TOTAL (test code = 25 mmol/L 23-31 0611985402) AGAP (test code = 2-16 2772039459) BUN (test code = 15 mg/dL 7-23 2745695065) GLUCOSE (test code = 194 mg/dL 70-110 H 7289706103) CREATININE (test code = 0.49 mg/dL 0.5-1.04 L 1238191131) CALCIUM (test code = 8.7 mg/dL 8.6-10.6 1994011359) eGFR Calculation mL/min/1.73m2 (Non-) (test code = 8679091976) eGFR Calculation mL/min/1.73m2 () (test code = 9814976515) ISMAEL (test code = ISMAEL) Association of [...] tests). Lab Interpretation Abnormal (test code = 00574-4) [facility] with [id number] 12:46:00 Test Item Value Reference Range Interpretation [...] RDW-SD (test code = 48.3 fL 39-49.9 69216-5) RDW-CV (test code = 15.1 % 12-15.5 788-0) PLT (test code = See_Comment L [Automated 777-3) message] The sy stem which generated this result transmitted reference range : 166 - 358 10*3/ ?L. The reference r ludivina was not used to interpret this result as normal/abnormal . MPV (test code = 11.8 fL 9.5-12.9 35206-7) IPF % (test code = 5.8 % 1.3-7.7 Platelet count 6378381896) measured by fluorescence method. NRBC/100 WBC (test See_Comment [Automat ed code = 9161894338) message] The system which generated this result transmitted reference range : 0.0 - 10.0 /100 WBCs. The refer ence range was not u sed to interpret th is result as normal/abnormal . NRBC x10^3 (test code <0.01 See_Comment [Auto mated = 7862334893) message] The s ystem which generated this result transmitted reference range : 10*3/?L. The reference range was not used to interpret this result as normal/abnormal . GRAN MAT (NEUT) % 76.8 % (test code = 770-8) IMM GRAN % (test code 0.30 % = 8392396291) LYMPH % (test code = 15.9 % 736-9) MONO % (test code = 7.0 % 5905-5) EOS % (test code = 0.0 % 713-8) BASO % (test code = 0.0 % 706-2) GRAN MAT x10^3(ANC) 2.76 10*3/uL 1.88-7.09 (test code = 8441856867) IMM GRAN x10^3 (test <0.03 0-0.06 code = 5435601888) LYMPH x10^3 (test code 0.57 10*3/uL 1.32-3.29 L = 731-0) MONO x10^3 (test code 0.25 10*3/uL 0.33-0.92 L = 742-7) EOS x10^3 (test code = <0.03 0.03-0.39 L 711-2) BASO x10^3 (test code <0.03 0.01-0.07 = 704-7) Lab Interpretation Abnormal (test code = 85159-9) [facility] GLUCOSE (AUTOMATED)2020-06-14 06:24:00 Test Item Value Reference Range Interpretation Comments POCT GLU (test code = 8664165345) 272 mg/dL 70-110 H Lab Interpretation (test code = Abnormal 25957-3) [facility] GLUCOSE (AUTOMATED)2020-06-14 02:26:00 Test Item Value Reference Range Interpretation Comments POCT GLU (test code = 318 mg/dL 70-110 H Notifi ed Provider 4207985044) Lab Interpretation (test Abnormal code = 07489-6) [facility] GLUCOSE (AUTOMATED)2020-06-14 02:08:00 Test Item Value Reference Range Interpretation Comments POCT GLU (test code = 0345504406) 279 mg/dL 70-110 H Lab Interpretation (test code = Abnormal 03857-8) [facility] GLUCOSE (AUTOMATED)2020-06-13 19:05:00 Test Item Value Reference Range Interpretation Comments POCT GLU (test code = 5312692516) 250 mg/dL 70-110 H Lab Interpretation (test code = Abnormal 83139-3) [facility]13 15:51:00 Test Item Value Reference Range Interpretation Comments POCT GLU (test code = 5162669602) 242 mg/dL 70-110 H Lab Interpretation (test code = Abnormal 97218-7) [facility] with [id number] 15:39:00 Test Item Value Reference Range Interpretation [...] RDW-SD (test code = 48.3 fL 39-49.9 85081-9) RDW-CV (test code = 15.1 % 12-15.5 788-0) PLT (test code = See_Comment L [Automated 777-3) message] The sy stem which generated this result transmitted reference range : 166 - 358 10*3/ ?L. The reference r ludivina was not used to interpret this result as normal/abnormal . MPV (test code = 11.7 fL 9.5-12.9 78267-2) IPF % (test code = 5.3 % 1.3-7.7 Platelet count 7973695995) measured by fluorescence method. NRBC/100 WBC (test See_Comment [Automat ed code = 6884254239) message] The system which generated this result transmitted reference range : 0.0 - 10.0 /100 WBCs. The refer ence range was not u sed to interpret th is result as normal/abnormal . NRBC x10^3 (test code <0.01 See_Comment [Auto mated = 8975768010) message] The s ystem which generated this result transmitted reference range : 10*3/?L. The reference range was not used to interpret this result as normal/abnormal . GRAN MAT (NEUT) % 58.2 % (test code = 770-8) IMM GRAN % (test code 0.50 % = 9513178509) LYMPH % (test code = 25.5 % 736-9) MONO % (test code = 15.8 % 5905-5) EOS % (test code = 0.0 % 713-8) BASO % (test code = 0.0 % 706-2) GRAN MAT x10^3(ANC) 1.14 10*3/uL 1.88-7.09 L (test code = 9589203534) IMM GRAN x10^3 (test <0.03 0-0.06 code = 9565855321) LYMPH x10^3 (test code 0.50 10*3/uL 1.32-3.29 L = 731-0) MONO x10^3 (test code 0.31 10*3/uL 0.33-0.92 L = 742-7) EOS x10^3 (test code = <0.03 0.03-0.39 L 711-2) BASO x10^3 (test code <0.03 0.01-0.07 = 704-7) PLT ESTIMATE (test Decreased Normal A code = 9317-9) Lab Interpretation Abnormal (test code = 61892-8) [facility] [id number] 14:28:03HISTORY: Elevated D dimer and inconclusive VQ [...] lobe of the liver, stable when compared qkqp4845 CT studies. No aggressive bone lesions. 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 CONCLUSIONS:1. No acute pulmonary thromboembolism.2. Bilateral [...] right lobe of the liver,stable when compared wunq9920 CT studies.No aggressive bone lesions. Degenerative disc disease notedat T11-T12,T9-T10 levels and there is minimal compression in the upper plate of U8mlmjatdkf body.CONCLUSIONS:1. No acute pulmonary thromboembolism.2. Bilateral peripherally base ground glass hazy infiltrates, consistentwith COVID 19 pulmonary infection. No lobar pneumonia. No pleural effusion.[facility] Metabolic Panel (NA, K, CL, CO2, GLUCOSE, BUN, CREATININE, CA)2020-06-13 13:09:00 Test Item Value Reference Range Interpretation Comments NA (test code = 135 mmol/L 135-145 0261198068) K (test code = 4.2 mmol/L 3.5-5 1119151800) CL (test code = 103 mmol/L 98-108 8077294304) CO2 TOTAL (test code = 26 mmol/L 23-31 4651647400) AGAP (test code = 2-16 0780066521) BUN (test code = 16 mg/dL 7-23 3218414985) GLUCOSE (test code = 204 mg/dL 70-110 H 4260191728) CREATININE (test code = 0.58 mg/dL 0.5-1.04 4527938570) CALCIUM (test code = 8.4 mg/dL 8.6-10.6 L 6334557893) eGFR Calculation mL/min/1.73m2 (Non-) (test code = 2467990878) eGFR Calculation mL/min/1.73m2 () (test code = 3309640636) ISMAEL (test code = ISMAEL) Association of [...] tests). Lab Interpretation Abnormal (test code = 58678-9) [facility] (in [facility]): 1 Units~Indication: Dilutional Wkrfdknryldz4274-58-91 04:34:33 Test Item Value Reference Range Interpretation Comments Unit Blood Type (test O Pos code = 4410) ISBT Blood Type Code (test code = 937558) Unit Number (test code [id number] = 4411) Blood Expiration Date & Time (test code = 819310) Status Information Issued (test code = 4412) Product Identification FFP (test code = 4413) Product Code (test L7176E20 Performed at [facility] code = 4414) Laboratory Services - [facility] Blood [address] [place] [id number] Free: [phone] A No. [id number] [facility] COVID [id number] 04:02:00COVID DMT InterpretationInterpretation/Recommendations: Molecular NAAT Tests for Active Infection with the SARS-CoV-2 Virus: The current test result is positive for the SARS-CoV-2 virus that causes COVID-19 illness. In klie-nz-rtittord illness, the patient may be considered no [...] COVID-19 testing the patient has had at [facility], including molecular NAAT testing(more commonly known as PCR testing and Rapid ID Now testing) and antibody testing. It does not takeinto account any testing that a patient has had outside of the [facility] medical record. [facility] LABORATORY SERVICESCOVID VzomvqcFOSM-LzJ-6 Rapid ID NOW (no units) ? ? Date ? Value ? 06/11/2020 ? Positive (A) ? [facility]ORATORY SERVICESWil[facility] HospitalVITAMIN B12, [id number] 00:01:00 Test Item Value Reference Range Interpretation Comments VIT B12 (test code = 436 pg/mL 240-930 8951450985) ISMAEL (test code = ISMAEL) Biotin has been reported to cause a positive bias, interpret results relative to patient's use of biotin. Lab Interpretation (test Normal code = 60513-4) [facility]2020-06-12 23:59:00 Test Item Value Reference Range Interpretation Comments POCT GLU (test code = 6809300741) 197 mg/dL 70-110 H Lab Interpretation (test code = Abnormal 53858-9) [facility]2020-06-12 23:59:00 Test Item Value Reference Range Interpretation Comments POCT GLU (test code = 3834300250) 280 mg/dL 70-110 H Lab Interpretation (test code = Abnormal 29053-6) [facility] L[facility]G PERFUSION [id number] 19:07:15 Study inconclusive for pulmonary embolism.PULMONARY PERFUSION SCAN INDICATION: Respiratory failure elevated d-dimer in COVID, concern PE TECHNIQUE: Ventilation imaging was not performed due to coronavirusprecautions. The patient received an intravenous injection of 7 mCi uxBr65f MAA, and planar images were subsequently acquired in the anterior,posterior, right anterior oblique, left anterior oblique, left posterioroblique, and right posterior oblique projections. ? Comparison made with chest imaging from 06/11/2020. FINDINGS: Posterior segment of left upper lung showed subsegmental perfusion defect.Additional subsegmental perfusion abnormalities noted also in the leftlower lung. [facility], Radiant Results Inft User - 06/12/2020 1:08 PM CSTPULMONARY PERFUSION SCANINDICATION: Respiratory failure elevated d-dimer in COVID, concern PE TECHNIQUE: Ventilation imaging was not performed due to coronavirusprecautions. The patient received an intravenous injection of 7 mCi [id number] MAA, and planar images were subsequently acquired in the anterior,posterior, right anterior oblique, left anterior oblique, left posterioroblique, and right posterior oblique projections. Comparison made with chest imaging from 06/11/2020.FINDINGS:Posterior segment of left upper lung showed subsegmental perfusion defect.Additionalsubsegmental perfusion abnormalities noted also in the leftlower lung.IMPRESSIONStudy inconclusive for pulmonary embolism.[facility] GLUCOSE (AUTOMATED)2020-06-12 14:59:00 Test Item Value Reference Range Interpretation Comments POCT GLU (test code = 0980127585) 144 mg/dL 70-110 H Lab Interpretation (test code = Abnormal 58258-8) [id number] 13:11:00 Test Item Value Reference Interpretation Comments Range D-DIMER (test code = See_Comment H [Autom ated 7837262418) message] The system which generated this result [...] diagnosis. Lab Interpretation Abnormal (test code = 28117-1) [facility] HospitalABORH [id number] 12:08:53 Test Item Value Reference Range Interpretation Comments ABO & RH (test code O Positive Performe d at [facility] = 20) Laboratory [facility] [place], [place] [address]Toll Free: [phone] A No. [id number] [facility]Type and Screen - ONCE [id number] 10:05:49 Test Item Value Reference Range Interpretation Comments ABO & RH (test code O Positive Performe d at [facility] = 20) Laboratory [facility] [place], [place] [address]Toll Free: [phone] A No. [id number] IAT (test code = Negative Performed a t [facility] 1185) Laboratory [facility] [place] [address]Toll Free: [phone] A No. [id number] [facility] (NA, K, CL, CO2, GLUCOSE, BUN, CREATININE, CA)2020-06-12 09:35:00 Test Item Value Reference Range Interpretation Comments NA (test code = 135 mmol/L 135-145 7281556545) K (test code = 3.9 mmol/L 3.5-5 6794309386) CL (test code = 104 mmol/L 98-108 9046113223) CO2 TOTAL (test code = 26 mmol/L 23-31 1677617757) AGAP (test code = 2-16 2618497133) BUN (test code = 13 mg/dL 7-23 1997919013) GLUCOSE (test code = 162 mg/dL 70-110 H 9114299024) CREATININE (test code = 0.76 mg/dL 0.5-1.04 5144508853) CALCIUM (test code = 7.7 mg/dL 8.6-10.6 L 1268523898) eGFR Calculation mL/min/1.73m2 (Non-) (test code = 7276538743) eGFR Calculation mL/min/1.73m2 () (test code = 4634639739) ISMAEL (test code = ISMAEL) Association of [...] tests). Lab Interpretation Abnormal (test code = 76262-9) [facility] with [id number] 09:24:00 Test Item Value Reference Range Interpretation [...] RDW-SD (test code = 49.2 fL 39-49.9 19114-4) RDW-CV (test code = 15.3 % 12-15.5 788-0) PLT (test code = See_Comment L [Automated 777-3) message] The sy stem which generated this result transmitted reference range : 166 - 358 10*3/ ?L. The reference r ludivina was not used to interpret this result as normal/abnormal . MPV (test code = 11.3 fL 9.5-12.9 32263-5) IPF % (test code = 3.7 % 1.3-7.7 Platelet count 9345526140) measured by fluorescence method. NRBC/100 WBC (test See_Comment [Automat ed code = 3872181852) message] The system which generated this result transmitted reference range : 0.0 - 10.0 /100 WBCs. The refer ence range was not u sed to interpret th is result as normal/abnormal . NRBC x10^3 (test code <0.01 See_Comment [Auto mated = 8589698654) message] The s ystem which generated this result transmitted reference range : 10*3/?L. The reference range was not used to interpret this result as normal/abnormal . GRAN MAT (NEUT) % 56.9 % (test code = 770-8) IMM GRAN % (test code 0.70 % = 4808117414) LYMPH % (test code = 25.0 % 736-9) MONO % (test code = 17.1 % 5905-5) EOS % (test code = 0.3 % 713-8) BASO % (test code = 0.0 % 706-2) GRAN MAT x10^3(ANC) 1.73 10*3/uL 1.88-7.09 L (test code = 1535357372) IMM GRAN x10^3 (test <0.03 0-0.06 code = 1841315998) LYMPH x10^3 (test code 0.76 10*3/uL 1.32-3.29 L = 731-0) MONO x10^3 (test code 0.52 10*3/uL 0.33-0.92 = 742-7) EOS x10^3 (test code = <0.03 0.03-0.39 L 711-2) BASO x10^3 (test code <0.03 0.01-0.07 = 704-7) Lab Interpretation Abnormal (test code = 51026-5) [facility] HospitalVITAMIN D, [id number] 07:22:00 Test Item Value Reference Range Interpretation Comments VIT D 25OH (test code = 20 ng/mL 25-80 L 45117-9) ISMAEL (test code = ISMAEL) Deficiency: <20 ng/mLInsufficiency: 20-24 ng/mLOptimal: 25-80 ng/mL Lab Interpretation (test Abnormal code = 61212-8) [facility] HospitalPROCALCITONIN2021-02-24 06:16:00 Test Item Value Reference Range Interpretation Comments Procalcitonin (test 0.06 ng/mL <0.07 code = 8370696356) ISMAEL (test code = ISMAEL) INTERPRETATION OF [...] lung abscess/empyema. For further information please refer to:[email or web address] Lab Interpretation Normal (test code = 80000-3) [facility] GLUCOSE (AUTOMATED)2020-06-12 02:08:00 Test Item Value Reference Range Interpretation Comments POCT GLU (test code = 4051693769) 166 mg/dL 70-110 H Lab Interpretation (test code = Abnormal 56262-6) [facility] GLUCOSE (AUTOMATED)2020-06-12 00:03:00 Test Item Value Reference Range Interpretation Comments POCT GLU (test code = 9682263874) 144 mg/dL 70-110 H Lab Interpretation (test code = Abnormal 52485-3) [facility] HospitalIRON [id number] 00:02:00 Test Item Value Reference Range Interpretation Comments IRON (test code = 8336333305) 27 ug/dL 50-160 L TIBC (test code = 0577884135) 335 ug/dL 250-410 % FE SAT (test code = 5118333768) 8 % 20-50 L Lab Interpretation (test code = Abnormal 07215-9) [facility] HospitalGLYCOSYLATED HEMOGLOBIN (A1C)2020-06-12 00:01:00 Test Item Value Reference Range Interpretation Comments HGB A1C (test code = 10.8 % 4-6 H 4548-4) ISMAEL (test code = ISMAEL) %A1C (NGSP) Interpretation (ADA)4.8-5.6 ? ? Normal or (Non-Diabetic Range)5.7-6.4 ? ? Increased Risk (Pre-Diabetic)>6.5 ?Diabetes Indicated Lab Interpretation Abnormal (test code = 50165-5) [facility] HospitalTHYROID STIMULATING [id number] 23:31:00 Test Item Value Reference Range Interpretation Comments TSH (test code = See_Comment [Automated message] 0853966873) The system [employer] generated this result transmitted ref erence range: 0.45 - 4 .70 mIU/L. The refe rence range was not u sed to interpret this result as normal/abnor mal. Lab Interpretation (test Normal code = 34626-5) [facility] HospitalN-TERMINAL [id number] 23:10:00 Test Item Value Reference Range Interpretation Comments NT-proBNP (test code 41 pg/mL See_Comment [Autom ated = 1149060811) message] The system which generated this result transmitted reference range : <=125. The reference range was not used to interpret this result as normal/abnormal . ISMAEL (test code = ISMAEL) Biotin has been reported to cause a negative bias, interpret results relative to patient's use of biotin. Lab Interpretation Normal (test code = 13510-9) [facility] HospitalMagnesium [id number] 23:00:00 Test Item Value Reference Range Interpretation Comments MAGNESIUM (test code = 9021245701) 1.6 mg/dL 1.7-2.4 L Lab Interpretation (test code = Abnormal 69787-0) [facility] HospitalTroponin [id number] 17:29:00 Test Item Value Reference Range Interpretation Comments TROPONIN I (test 0.001 ng/mL See_Comment [Automated code = 1830551471) message] The system which generated this result [...] ? Lab Interpretation Normal (test code = 45222-2) [facility] 1 [id number] 17:26:01HISTORY: Cough, fever, SOB, hypoxia. TECHNIQUE: Portable [...] CONCLUSIONS: No signs of acute cardiopulmonary disease. [facility] HospitalCOVID[facility]19 (ID NOW RAPID TESTING)2020-06-11 17:23:00 Test Item Value Reference Range Interpretation Comments SARS-CoV-2 Rapid ID NOW Positive Not Detected A (test code = 51799-8) ISMAEL (test code = ISMAEL) ID NOW COVID-19 Assay is an isothermal nucleic acid amplification test intended for the qualitative detection of nucleic acid from SARS-CoV-2 viral RNA in nasopharyngeal (ANALYSIS ANALYST) specimens. It is used under Emergency Use [...] indicated. Lab Interpretation Abnormal (test code = 89357-7) [facility] Metabolic Panel (NA, K, CL, CO2, GLUCOSE, BUN, CREATININE, CA)2020-06-11 17:18:00 Test Item Value Reference Range Interpretation Comments NA (test code = 134 mmol/L 135-145 L 0461050436) K (test code = 3.8 mmol/L 3.5-5 5643682310) CL (test code = 101 mmol/L 98-108 6545388856) CO2 TOTAL (test code = 21 mmol/L 23-31 L 9802911777) AGAP (test code = 2-16 1976082062) BUN (test code = 12 mg/dL 7-23 7779740143) GLUCOSE (test code = 173 mg/dL 70-110 H 2389981401) CREATININE (test code = 0.72 mg/dL 0.5-1.04 5307361802) CALCIUM (test code = 9.0 mg/dL 8.6-10.6 7427766504) eGFR Calculation mL/min/1.73m2 (Non-) (test code = 0814340637) eGFR Calculation mL/min/1.73m2 () (test code = 6150729710) ISMAEL (test code = ISMAEL) Association of [...] tests). Lab Interpretation Abnormal (test code = 87097-8) [facility] HospitalHepatic Function Panel (ALB, T.PRO, BILI T, BU/BC, ALT, AST, ALK PHOS)2020-06-11 17:18:00 Test Item Value Reference Range Interpretation Comments TOTAL BILI (test code = 0839426008) 0.7 mg/dL 0.1-1.1 BILI UNCON (test code = 2441214982) 0.6 mg/dL 0.1-1.1 BILI CONJ (test code = 3440584148) 0.0 mg/dL 0-0.3 T PROTEIN (test code = 7205384640) 8.3 g/dL 6.3-8.2 H ALBUMIN (test code = 8258481928) 4.5 g/dL 3.5-5 ALK PHOS (test code = 2986545532) 124 U/L 34-122 H ALTv (test code = 1742-6) 50 U/L 5-35 H AST(SGOT) (test code = 0475860930) 103 U/L 13-40 H Lab Interpretation (test code = Abnormal 74736-2) [facility] HospitalCBC with Jhgnrmiisngh3246-88-38 17:07:00 Test Item Value Reference Range Interpretation Comments WBC (test code = See_Comment [Automated 6641-2) message] The sy stem which generated this result transmitted reference range : 4.30 - 11.10 10*3/?L. The reference range was not used to interpret this result as normal/abnormal . RBC (test code = See_Comment [Automated 219-3) message] The sy stem which generated this [...] RDW-SD (test code = 45.5 fL 39-49.9 96478-8) RDW-CV (test code = 14.8 % 12-15.5 788-0) PLT (test code = See_Comment L [Automated 777-3) message] The sy stem which generated this result transmitted reference range : 166 - 358 10*3/ ?L. The reference r ludivina was not used to interpret this result as normal/abnormal . MPV (test code = 12.1 fL 9.5-12.9 40469-2) IPF % (test code = 4.1 % 1.3-7.7 Platelet count 8547533550) measured by fluorescence method. NRBC/100 WBC (test See_Comment [Automat ed code = 3836543291) message] The system which generated this result transmitted reference range : 0.0 - 10.0 /100 WBCs. The refer ence range was not u sed to interpret th is result as normal/abnormal . NRBC x10^3 (test code <0.01 See_Comment [Auto mated = 7544203592) message] The s ystem which generated this result transmitted reference range : 10*3/?L. The reference range was not used to interpret this result as normal/abnormal . GRAN MAT (NEUT) % 70.6 % (test code = 770-8) IMM GRAN % (test code 1.00 % = 2056510628) LYMPH % (test code = 13.8 % 736-9) MONO % (test code = 14.4 % 5905-5) EOS % (test code = 0.0 % 713-8) BASO % (test code = 0.2 % 706-2) GRAN MAT x10^3(ANC) 4.40 10*3/uL 1.88-7.09 (test code = 3951704854) IMM GRAN x10^3 (test 0.06 10*3/uL 0-0.06 code = 1335407674) LYMPH x10^3 (test code 0.86 10*3/uL 1.32-3.29 L = 731-0) MONO x10^3 (test code 0.90 10*3/uL 0.33-0.92 = 742-7) EOS x10^3 (test code = <0.03 0.03-0.39 L 711-2) BASO x10^3 (test code <0.03 0.01-0.07 = 704-7) Lab Interpretation Abnormal (test code = 79513-5) [facility] HospitalLactic Acid Whole [id number] 16:53:00 Test Item Value Reference Range Interpretation Comments LACTIC ACID (test code = 1.70 mmol/L 0.5-2.2 5764115831) Lab Interpretation (test code = Normal 07649-8) [facility]
--- NOTE | 2022-12-07 09:21 | RAD REPORT ---
EXAM DESCRIPTION: RAD - Chest Single View - 12/07/2022 9:16 am CLINICAL HISTORY: ABDOMINAL DISTENTION COMPARISON: <Comparisons> FINDINGS: Lines: None. Lungs: No evidence of edema or pneumonia. Pleural: No significant pleural effusions or pneumothorax. Cardiac: The heart size is within normal limits. Mediastinum: Within normal limits. Bones: No acute fractures. Other: None IMPRESSION: No acute cardiopulmonary disease.
[2022-12-07] MEDS ORDERED: NA CHLORIDE 0.9% 500 ML ONE (09:58)
[2022-12-07] MEDS ORDERED: NA CHLORIDE 0.9% 1,000 ML ONE (09:58)
[2022-12-07] MEDS ORDERED: FAMOTIDINE 20 MG/2 ML VIAL IV ONE (09:58)
[2022-12-07 10:18] LABS: Specific Gravity 1.024 (1.005-1.030); Urine Bacteria 20-50 /HPF (<20); Urine Bilirubin NEGATIVE (Negative); Urine Blood Negative (Negative); Urine Clarity Extremely Turbid (Clear); Urine Color Yellow (Yellow); Urine Glucose 4+ (Over) (Negative); Urine Protein TRACE (Negative); Urine RBC <5 /HPF (None Seen); Urine Urobilinogen Normal (Normal)
[2022-12-07 11:21] LABS: Hematocrit 36.8 % (36.0-45.0); Lymphocytes % 13.5 % (15.3-44.8); MCV 85.8 fL (80-100); MPV 8.5 fL (7.6-11.3); Platelets 126 thou/uL (152-406); RBC Red Blood Cell Count 4.29 M/uL (3.86-4.86)
[2022-12-07 11:24] LABS: Protime INR 1.18
[2022-12-07] MEDS ORDERED: ONDANSETRON 4 MG/2 ML VIAL ONE ×2 (11:40→16:29)
[2022-12-07] MEDS ORDERED: HYDROMORPHONE HCL 2 MG/ML inj ONE (11:40)
[2022-12-07 11:42] LABS: Albumin 3.3 g/dL (3.4-5.0); Bilirubin Direct 0.1 mg/dL (0-0.2); Bilirubin Indirect, Calculated 0.2 mg/dL (0.2-0.8); Bilirubin Total 0.3 mg/dL (0.2-1.0); Magnesium 2.2 mg/dL (1.6-2.4); Protein, Total 7.7 g/dL (6.4-8.2); Troponin High Sensitivity 3.3 pg/mL (<58.9)
--- NOTE | 2022-12-07 11:51 | RAD REPORT ---
EXAM DESCRIPTION: CTChest Abd Pelvis Wo Con - 12/07/2022 11:38 am CLINICAL HISTORY: ABDOMINAL DISTENTION COMPARISON: Chest For Pe Angio dated 06/21/2020; Chest For Pe Angio dated 08/04/2016; THORAX WO CONTRAS T dated 05/15/2010; CTANGIO CHEST FOR PE dated 06/26/2008 TECHNIQUE: CT of the chest, abdomen, and pelvis was performed. All CT scans are performed using dose optimization technique as appropriate and may include automated exposure control or mA/KV adjustment according to patient size. FINDINGS: Thorax: Chest Wall: No abnormal mass Lungs: No acute abnormality. Pleura: No effusions or pneumothorax. Sally/Mediastinum: No lymphadenopathy. Aorta/Pulmonary Arteries: Unremarkable Heart: Normal size. Abdomen/Pelvis: Liver: Cirrhotic liver morphology. Low-density lesion in the right hepatic lobe measuring 14 millimet ers is unchanged since 06/21/2020 and likely benign. Biliary: Cholecystectomy Stomach: No significant focal abnormality. Duodenum: No significant focal abnormality. Pancreas: No significant abnormality. Spleen: Mild splenomegaly. Adrenal: No suspicious lesions. Kidney/ureter: No hydronephrosis. No renal calculi. Retroperitoneum: No retroperitoneal adenopathy. 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 Bowel:Mild to moderate colonic formed stool. Normal appendix. No bowel obstruction. Peritoneum: No ascites or free air. Bladder: Grossly unremarkable. Reproductive: No adnexal masses. Hysterectomy Bones: No acute fracture. Other: n/a IMPRESSION: No acute findings within the chest, abdomen, or pelvis. Incidental findings as noted above.
--- NOTE | 2022-12-07 12:23 | EDPHYS ---
Physician Documentation [facility] Name: Sheila Vila Age: 72 yrs Sex: Female : 1950 Arrival Date: 12/07/2022 Time: 08:43 Bed 7 Private MD: ED Physician Merlin Chang HPI: 12/07 12:10 This 72 yrs old Black Female presents to ER via Ambulatory with complaints of Abdominal nolvia Pain. 12:10 The patient presents with abdominal pain abdominal distention in the upper abdomen, in nolvia the lower abdomen. Onset: The symptoms/episode began/occurred 2 day(s) ago. The patient presents to the emergency department with nausea, vomiting, that is continuous. Onset: The symptoms/episode began/occurred 3 day(s) ago. Possible causes: unknown. The symptoms are aggravated by nothing. food , The symptoms are alleviated by nothing. Associated signs and symptoms: Pertinent positives: abdominal pain. The symptoms do not radiate. Modifying factors: The symptoms are alleviated by remaining still, the symptoms are aggravated by nothing. Historical: - Allergies: 09:02 Darvocet-N 100; jl7 09:02 PENICILLINS; jl7 09:02 Propoxyphene; jl7 09:02 Toradol; jl7 - Home Meds: 09:02 clonidine HCl 0.2 mg Oral tab [Active]; Tresiba FlexTouch U-100 subcutaneous [Active]; jl7 Victoza 2-Abhay subcutaneous [Active]; Novolog Sub-Q [Active]; Ozempic subcutaneous [Active]; - PMHx: 09:02 Asthma; Cirrhosis; COPD; Diabetes - IDDM; Hepatitis; resolved; Hypertension; jl7 Pancreatitis; Pneumonia; - PSHx: 09:02 Cholecystectomy; hysterectomy; knee sx; jl7 - Immunization history:: Adult Immunizations unknown. - Social history:: Smoking status: Patient denies any tobacco usage or history of. - Family history:: not pertinent. ROS: 12:10 Constitutional: Negative for fever, chills, and weight loss, Eyes: Negative for injury, nolvia pain, redness, and discharge, ENT: Negative for injury, pain, and discharge, Neck: Negative for injury, pain, and swelling, Cardiovascular: Negative for chest pain, palpitations, and edema, Respiratory: Negative for shortness of breath, cough, wheezing, and pleuritic chest pain, Back: Negative for injury and pain, : Negative for injury, bleeding, discharge, and swelling, MS/Extremity: Negative for injury and deformity, Skin: Negative for injury, rash, and discoloration, Neuro: Negative for headache, weakness, numbness, tingling, and seizure, Psych: Negative for depression, anxiety, suicide ideation, homicidal ideation, and hallucinations, Allergy/Immunology: Negative for hives, rash, and allergies, Endocrine: Negative for neck swelling, polydipsia, polyuria, polyphagia, and marked weight changes, Hematologic/Lymphatic: Negative for swollen nodes, abnormal bleeding, and unusual bruising. 12:10 Respiratory: Positive for cough. 12:10 Abdomen/GI: Positive for abdominal pain, nausea and vomiting. Exam: 12:10 Constitutional: This is a well developed, well nourished patient who is awake, alert, nolvia and in no acute distress. Head/Face: Normocephalic, atraumatic. Eyes: Pupils equal round and reactive to light, extra-ocular motions intact. Lids and lashes normal. Conjunctiva and sclera are non-icteric and not injected. Cornea within normal limits. Periorbital areas with no swelling, redness, or edema. ENT: Nares patent. No nasal discharge, no septal abnormalities noted. Tympanic membranes are normal and external auditory canals are clear. Oropharynx with no redness, swelling, or masses, exudates, or evidence of obstruction, uvula midline. Mucous membranes moist. Neck: Trachea midline, no thyromegaly or masses palpated, and no cervical lymphadenopathy. Supple, full range of motion without nuchal rigidity, or vertebral point tenderness. No Meningismus. Chest/axilla: Normal chest wall appearance and motion. Nontender with no deformity. No lesions are appreciated. Cardiovascular: Regular rate and rhythm with a normal S1 and S2. No gallops, murmurs, or rubs. Normal PMI, no JVD. No pulse deficits. Respiratory: Lungs have equal breath sounds bilaterally, clear to auscultation and percussion. No rales, rhonchi or wheezes noted. No increased work of breathing, no retractions or nasal flaring. Back: No spinal tenderness. No costovertebral tenderness. Full range of motion. Skin: Warm, dry with normal turgor. Normal color with no rashes, no lesions, and no evidence of cellulitis. MS/ Extremity: Pulses equal, no cyanosis. Neurovascular intact. Full, normal range of motion. Neuro: Awake and alert, GCS 15, oriented to person, place, time, and situation. Cranial nerves II-XII grossly intact. Motor strength 5/5 in all extremities. Sensory grossly intact. Cerebellar exam normal. Normal gait. Psych: Awake, alert, with orientation to person, place and time. Behavior, mood, and affect are within normal limits. 12:10 ECG was reviewed by the Attending Physician. 12:10 Abdomen/GI: Inspection: abdomen appears normal, Bowel sounds: normal, Palpation: abdomen is soft and non-tender, Liver: no appreciated palpable abnormalities, Hernia: not appreciated. Vital Signs: 08:56 BP 157 / 88; Pulse 106; Resp 15; Temp 97.5; Pulse Ox 100% ; Weight 97.07 kg; Height 5 jl7 ft. 4 in. ; Pain 8/10; 09:49 BP 161 / 72; Pulse 102; Resp 18; Pulse Ox 99% on R/A; ld1 10:34 BP 152 / 105; Pulse 89; Resp 18; Pulse Ox 98% on R/A; ld1 11:33 BP 156 / 99; Pulse 94; Resp 18; Pulse Ox 98% on R/A; Pain 9/10; ld1 08:56 Body Mass Index 36.73 (97.07 kg, 162.56 cm) jl7 08:56 Pain Scale: Adult jl7 11:33 Pain Scale: Adult ld1 MDM: 08:46 Patient medically screened. nolvia 12:17 Differential diagnosis: Nonspecific abd pain, gastritis, viral gastroenteritis, nolvia gastroenteritis, appendicitis, bowel obstruction, coronary artery disease, diverticulitis, gastritis, gastroesophageal reflux disease, non-specific abd pain, pancreatitis, Peptic Ulcer Disease, urinary tract infection. Data reviewed: vital signs, nurses notes, lab test result(s), EKG, radiologic studies, CT scan, plain films. Consideration of Admission/Observation Patient was admitted/placed on observation. Escalation of care including admission/observation considered. I considered the following discharge prescriptions or medication management in the emergency department Medications were administered in the Emergency Department. See MAR. Test considered but Not performed: MRI: no mri abd. Care significantly affected by the following chronic conditions: Diabetes, Hypertension, Chronic Obstructive Pulmonary Disease, Obesity. Counseling: I had a detailed discussion with the patient and/or guardian regarding the historical points, exam findings, and any diagnostic results supporting the discharge/admit diagnosis, lab results, radiology results, the need for further work-up and treatment in the hospital. 12/07 08:49 Order name: Basic Metabolic Panel; Complete Time: 12:09 [facility] 12/07 08:49 Order name: CBC with Diff; Complete Time: 12:09 [facility] 12/07 08:49 Order name: LFT's; Complete Time: 12:09 [facility] 12/07 08:49 Order name: Magnesium; Complete Time: 12:09 [facility] 12/07 08:49 Order name: NT PRO-BNP; Complete Time: 12:09 [facility] 12/07 08:49 Order name: PT-INR; Complete Time: 12:09 [facility] 12/07 08:49 Order name: Troponin HS; Complete Time: 12:09 [facility] 12/07 08:49 Order name: Lipase; Complete Time: 12:09 [facility] 12/07 08:49 Order name: Urinalysis w/ reflexes; Complete Time: 12:09 [facility] 12/07 11:32 Order name: Lipid Profile; Complete Time: 12:09 [facility] 12/07 16:16 Order name: Glucose, Ancillary Testing [facility] 12/07 16:34 Order name: Phosphorus [facility] 12/07 16:34 Order name: Magnesium [facility] 12/07 19:39 Order name: Glucose, Ancillary Testing [facility] 12/07 08:49 Order name: XRAY Chest (1 view); Complete Time: 12:09 [facility] 12/07 11:25 Order name: CT Chest Abdomen Pelvis W/O Contrast; Complete Time: 12:09 [facility] 12/07 08:49 Order name: EKG; Complete Time: 08:50 [facility] 12/07 13:20 Order name: Clear Liquid [facility] 12/07 08:49 Order name: Cardiac monitoring; Complete Time: 09:46 [facility] 12/07 08:49 Order name: EKG - Nurse/Tech; Complete Time: 09:46 [facility] 12/07 08:49 Order name: IV Saline Lock; Complete Time: 09:46 [facility] 12/07 08:49 Order name: Labs collected and sent; Complete Time: 11:25 [facility] 12/07 08:49 Order name: O2 Per Protocol; Complete Time: 09:04 [facility] 12/07 08:49 Order name: O2 Sat Monitoring; Complete Time: 09:04 nolvia EC:10 Rate is 96 beats/min. Rhythm is regular. QRS [place] is Normal. [place] interval is normal. QRS nolvia interval is normal. QT interval is normal. No Q waves. T waves are Normal. No ST changes noted. Clinical impression: NSR w/ Non-specific ST/T Changes and No evidence of ischemia. Interpreted by me. Reviewed by me. Administered Medications: 10:06 Drug: NS 0.9% IV 1000 ml Route: IV; Rate: 125 ml/hr; Site: right antecubital; ld1 10:06 Drug: Famotidine IVP 20 mg Route: IVP; Site: right antecubital; ld1 10:07 Drug: NS 0.9% IV 500 ml Route: IV; Rate: bolus; Site: right antecubital; ld1 11:33 Drug: NS 0.9% IV 1000 ml Route: IV; Rate: 1 bolus; Site: right antecubital; ld1 11:33 Drug: HYDROmorphone IVP 1 mg Route: IVP; Site: right antecubital; ld1 11:33 Drug: HYDROmorphone IVP 1 mg Route: IVP; Site: right antecubital; ld1 11:33 Drug: Ondansetron IVP 4 mg Route: IVP; Site: right antecubital; ld1 Disposition Summary: 12/07/22 12:21 Hospitalization Ordered Hospitalization Status: Observation nolvia Provider: Sanjay Parmar cha Condition: Fair nolvia Problem: new nolvia Symptoms: have improved nolvia Bed/Room Type: Standard [facility] Location: Telemetry/MedSurg (observation)(12/07/22 19:55) Room Assignment: 427(12/07/22 20:00) cg Diagnosis - Vomiting nolvia - Nausea with vomiting, unspecified nolvia - Dehydration nolvia - Abdominal pain, Generalized nolvia - Obesity, unspecified nolvia Forms: - Medication Reconciliation Form nolvia - SBAR form nolvia - Leadership Thank You Letter nolvia Signatures: Dispatcher [employer] Merlin Valverde MD MD cha Garcia, Cindy RN RN Colette Arechiga RN RN jl7 Edilia Casillas RN RN ld1 Corrections: (The following items were deleted from the chart) 11:32 08:50 Abdomen Pelvis W Con+CT.RAD.BRZ ordered. EDMS EDMS 11:33 11:25 LIPID PROFILE+C.LAB.BRZ ordered. EDMS EDMS 13:22 12:21 Telemetry/MedSurg (observation) nolvia jl7 13:22 12:21 nolvia jl7 19:55 13:22 [facility] ER HOLD jl7 cg 19:55 13:22 ERHOLD- jl7 cg 20:00 19:55 cg cg
--- NOTE | 2022-12-07 12:23 | ER ---
Nurse's Notes [facility] Name: Sheila Vila Age: 72 yrs Sex: Female : 1950 Arrival Date: 12/07/2022 Time: 08:43 Bed 7 Private MD: Diagnosis: Vomiting;Nausea with vomiting, unspecified;Dehydration;Abdominal pain, Generalized;Obesity, unspecified Presentation: 12/07 08:56 Chief complaint: Patient states: N/V x4 days, denies diarrhea, denies symptoms, jl7 denies fever. Coronavirus screen: Client presents with at least one sign or symptom that may indicate coronavirus-19. Ebola Screen: No symptoms or risks identified at this time. Initial Sepsis Screen: Does the patient meet any 2 criteria? No. Patient's initial sepsis screen is negative. Does the patient have a suspected source of infection? No. Patient's initial sepsis screen is negative. Risk Assessment: Do you want to hurt yourself or someone else? Patient reports no desire to harm self or others. Onset of symptoms was December 03, 2022. 08:56 Method Of Arrival: Ambulatory [facility] 08:56 Acuity: SYLVE[place] 3 jl7 Triage Assessment: 09:02 General: Appears in no apparent distress. uncomfortable, Behavior is calm, cooperative, jl7 appropriate for age. Pain: Complains of pain in abdomen diffusely. GI: Reports nausea, vomiting. Historical: - Allergies: 09:02 Darvocet-N 100; jl7 09:02 PENICILLINS; jl7 09:02 Propoxyphene; jl7 09:02 Toradol; jl7 - Home Meds: 09:02 clonidine HCl 0.2 mg Oral tab [Active]; Tresiba FlexTouch U-100 subcutaneous [Active]; jl7 Victoza 2-Abhay subcutaneous [Active]; Novolog Sub-Q [Active]; Ozempic subcutaneous [Active]; - PMHx: 09:02 Asthma; Cirrhosis; COPD; Diabetes - IDDM; Hepatitis; resolved; Hypertension; jl7 Pancreatitis; Pneumonia; - PSHx: 09:02 Cholecystectomy; hysterectomy; knee sx; jl7 - Immunization history:: Adult Immunizations unknown. - Social history:: Smoking status: Patient denies any tobacco usage or history of. - Family history:: not pertinent. Screenin:04 [facility] ED Fall Risk Assessment (Adult) History of falling in the last 3 months, bp including since admission No falls in past 3 months (0 pts). Abuse screen: Denies threats or abuse. Denies injuries from another. Nutritional screening: No deficits noted. Tuberculosis screening: No symptoms or risk factors identified. Assessment: 09:03 Reassessment: PT VIOLENTLY PULLING ARM AWAY FROM PIV. MD INFORMED. bp 09:48 Reassessment: Unable to obtain labs, Phlebotomy notified and will be down to assist. jl7 09:49 General: Appears in no apparent distress. comfortable, Behavior is calm, cooperative, ld1 appropriate for age. Pain: Complains of pain in abdomen Pain does not radiate. Pain currently is 7 out of 10 on a pain scale. Quality of pain is described as throbbing, Pain began suddenly, Is continuous. Neuro: Level of Consciousness is awake, alert, obeys commands, Oriented to person, place, time, situation. Cardiovascular: Capillary refill < 3 seconds Patient's skin is warm and dry. Respiratory: Airway is patent Respiratory effort is even, unlabored. GI: Abdomen is round non-distended, Bowel sounds present X 4 quads. Abd is soft Abdomen is tender to palpation. : No signs and/or symptoms were reported regarding the genitourinary system. EENT: No signs and/or symptoms were reported regarding the EENT system. Derm: No signs and/or symptoms reported regarding the dermatologic system. Musculoskeletal: No signs and/or symptoms reported regarding the musculoskeletal system. Vital Signs: 08:56 BP 157 / 88; Pulse 106; Resp 15; Temp 97.5; Pulse Ox 100% ; Weight 97.07 kg; Height 5 jl7 ft. 4 in. ; Pain 8/10; 09:49 BP 161 / 72; Pulse 102; Resp 18; Pulse Ox 99% on R/A; ld1 10:34 BP 152 / 105; Pulse 89; Resp 18; Pulse Ox 98% on R/A; ld1 11:33 BP 156 / 99; Pulse 94; Resp 18; Pulse Ox 98% on R/A; Pain 9/10; ld1 08:56 Body Mass Index 36.73 (97.07 kg, 162.56 cm) jl7 08:56 Pain Scale: Adult jl7 11:33 Pain Scale: Adult ld1 ED Course: 08:44 Patient arrived in ED. rg4 08:46 Merlin Chang MD is Attending Physician. nolvia 08:48 Ga Lovell, VIOLETTE is Primary Nurse. bp 09:02 Triage completed. jl7 09:02 Arm band placed on right wrist. jl7 09:02 Missed attempt(s): 22 gauge in right forearm. bp 09:04 Patient has correct armband on for positive identification. Bed in low position. Call bp light in reach. Side rails up X2. 09:18 XRAY Chest (1 view) In Process Unspecified. EDMS 09:49 desk monitor on. Pulse ox on. NIBP on. Door closed. Noise minimized. ld1 09:49 Inserted saline lock: 20 gauge in right antecubital area, using aseptic technique. ld1 Blood collected. 09:49 No provider procedures requiring assistance completed. ld1 10:07 Urinalysis w/ reflexes Sent. ld1 10:37 Radiology exam delayed due to lab results not completed at this time. (BUN/Creatinine). ls3 11:18 Initial lab(s) drawn, by ED staff, sent to lab. Inserted saline lock: 18 gauge in left jl7 EJ, using aseptic technique. Blood collected. inserted by Dr. Chang. 11:33 Lipid Profile Sent. ld1 11:39 CT Chest Abdomen Pelvis W/O Contrast In Process Unspecified. EDMS 12:21 Sanjay Parmar MD is Hospitalizing Provider. nolvia 15:15 Patient admitted, IV remains in place. ld1 Administered Medications: 10:06 Drug: NS 0.9% IV 1000 ml Route: IV; Rate: 125 ml/hr; Site: right antecubital; ld1 10:06 Drug: Famotidine IVP 20 mg Route: IVP; Site: right antecubital; ld1 10:07 Drug: NS 0.9% IV 500 ml Route: IV; Rate: bolus; Site: right antecubital; ld1 11:33 Drug: NS 0.9% IV 1000 ml Route: IV; Rate: 1 bolus; Site: right antecubital; ld1 11:33 Drug: HYDROmorphone IVP 1 mg Route: IVP; Site: right antecubital; ld1 11:33 Drug: HYDROmorphone IVP 1 mg Route: IVP; Site: right antecubital; ld1 11:33 Drug: Ondansetron IVP 4 mg Route: IVP; Site: right antecubital; ld1 Medication: 09:49 VIS not applicable for this client. ld1 Outcome: 12:21 Decision to Hospitalize by Provider. nolvia 15:15 Admitted to ER Hold. Please see [facility] for further documentation. ld1 15:15 Condition: stable 15:15 Instructed on the need for admit. 20:47 Patient left the ED. lg3 Signatures: Dispatcher [employer] EDTN Merlin Chang MD MD cha Garcia, Rubi rg4 Colette Christian RN RN jl7 Ga Lovell RN RN Brooke Da Silva ls3 Blanca Dillard RN RN lg3 Edilia Casillas RN RN ld1
[2022-12-07] MEDS ORDERED: HYDROCODONE/APAP 5/325 MG TAB PO PRN (13:14)
[2022-12-07] MEDS ORDERED: ACETAMINOPHEN 325 MG TABLET PO PRN (13:14)
[2022-12-07 14:14] VITALS: BMI 36.7
[2022-12-07] MEDS ORDERED: SIMETHICONE 125 MG TAB PO PRN (14:30)
--- NOTE | 2022-12-07 14:32 | P.HP ---
Certification for Inpatient Patient admitted to: Observation With expected LOS: <2 Midnights Patient will require the following post-hospital care: None Practitioner: I am a practitioner with admitting privileges, knowledge of patient current condition, hospital course, and medical plan of care. Services: Services provided to patient in accordance with Admission requirements found in Title 42 Section 412.3 of the Code of Federal Regulations Patient History Date of Service: 12/07/22 Reason for admission: Abdominal pain History of Present Illness: Patient is a 72-year-old with a past medical history significant for hypertension, DM 2, liver cirrhosis, COPD, asthma who presents with complaint of generalized abdominal pain that has been ongoing for the past 4 days. Patient rated pain as 8/10 in severity and described as sharp in quality. Patient reported associated signs/symptoms of nausea, vomiting, chills, headache, dizziness and abdominal bloating. Patient denies any other signs and symptoms. Symptoms are aggravated or relieved by nothing. Patient decided to present to the hospital due to worsening symptoms. Allergies ketorolac Allergy (Severe, Verified 05/15/14 01:15) Hives/Rash ketorolac tromethamine [From Toradol] Allergy (Mild, Verified 03/14/12 17:55) Hives/Rash Penicillins Allergy (Mild, Verified 03/14/12 17:55) Itching propoxyphene napsylate [From Darvocet-N 100] Allergy (Mild, Verified 05/19/13 00:28) Nausea/Vomiting Home Medications: ALPRAZolam [Xanax*] 2 mg PO TID 08/03/16 Clonidine HCl [Catapres*] 0.2 mg PO DAILY 03/25/17 Insulin Degludec [Tresiba Flextouch U-200] 80 units SQ DAILY WITH BREAKFAST 03/25/17 Montelukast [Singulair*] 10 mg PO DAILY 03/25/17 Quetiapine Fumarate [Seroquel] 800 mg PO BEDTIME 03/25/17 Hydrocodone 10/APAP 325 [[place] 10/325*] 1 tab PO TID 09/06/18 Amlodipine [Norvasc*] 10 mg PO BID 12/29/18 Pantoprazole [Protonix Tab*] 40 mg PO DAILY 12/29/18 Guaifen W/Codeine Syrup [ROBITUSSIN A-C Syrup*] 5 ml PO QID PRN 02/04/22 Meclizine HCl [Antivert*] 25 mg PO Q6H PRN #20 tab 02/04/22 Nepafenac [Ilevro] 1 drop OPTH QID 02/04/22 Umeclidinium [place] [Incruse Ellipta] 62.5 mcg IH DAILY 02/04/22 - Past Medical/Surgical History Has patient received pneumonia vaccine in the past: No Diabetic: Yes -: CAD -: COPD -: Diabetes mellitus type 2 -: Hypertension -: Chronic pain syndrome -: Liver cirrhosis, fatty liver -: Chronic thrombocytopenia -: Hepatitis-C -: History CVA -: Morbid obesity -: Obstructive sleep apnea -: glaucoma -: Right knee surgery -: Cholecystectomy -: Hysterectomy Psychosocial/ Personal History: The patient is single. She has 3 children. She currently lives with her granddaughter. - Family History Father -: Cancer Mother -: Lung disease, Cancer, Other (see notes) Notes: brain cancer - Social History Smoking Status: Never smoker Alcohol use: No CD- Drugs: No Caffeine use: Yes Place of Residence: Home Review of Systems General: Chills Eyes: Unremarkable ENT: Unremarkable Respiratory: Unremarkable Gastrointestinal: Nausea, Vomiting, Abdominal Pain, Other (abdominla bloating ) Genitourinary: Unremarkable Musculoskeletal: Unremarkable Integumentary: Unremarkable Neurological: Other (FLORES, Dizziness ) Lymphatics: Unremarkable Physical Examination - Physical Exam General: Alert, In no apparent distress, Oriented x3, Cooperative HEENT: Atraumatic, PERRLA, Mucous membr. moist/pink, EOMI, Sclerae nonicteric Neck: Supple, 2+ carotid pulse no bruit, No LAD, Without JVD or thyroid abnormality Respiratory: Clear to auscultation bilaterally, Normal air movement Cardiovascular: No edema, Regular rate/rhythm, Normal S1 S2 Capillary refill: <2 Seconds Gastrointestinal: Normal bowel sounds, Distended, Tenderness Musculoskeletal: No clubbing, No swelling, No tenderness Integumentary: No rashes, No significant lesion Neurological: Normal speech, Normal tone, Normal affect Lymphatics: No axilla or inguinal lymphadenopathy - Studies Laboratory Data (last 24 hrs) 12/07/22 12/07/22 12/07/22 11:25 11:15 11:15 WBC 7.70 Hgb 12.2 Hct 36.8 Plt Count 126 L PT 13.0 H INR 1.18 Sodium Potassium BUN Creatinine Glucose Magnesium Total Bilirubin AST ALT Alkaline Phosphatase Triglycerides Cancelled Cholesterol Cancelled HDL Cholesterol Cancelled Cholesterol/HDL Ratio Cancelled Lipase 12/07/22 11:15 WBC Hgb Hct Plt Count PT INR Sodium 139 Potassium 4.0 BUN 15 Creatinine 0.86 Glucose 102 Magnesium 2.2 Total Bilirubin 0.3 AST 35 ALT 29 Alkaline Phosphatase 102 Triglycerides 160 H Cholesterol 155 HDL Cholesterol 41 Cholesterol/HDL Ratio 3.78 Lipase 25 Assessment and Plan - Plan -- Abdominal pain. CT abdomen unremarkable for any acute intra-abdominal abnormality. We will manage pain currently medication regimen. --UTI POA. Continue antibiotics. Urine cultures pending. --DM2. BS monitoring with sliding scale insulin. --Liver cirrhosis. Stable. Continue supportive care. --GERD. Continue Protonix. --CKD 2. Stable. We will continue to monitor renal functions. --COPD\asthma. Stable. Continue home medications. --Hypertension. Poorly controlled. Continue home medications and labetalol as needed. --Class II obesity. Likely secondary to excess calories intake. Patient counseled on weight reduction, diet and exercise therapy. -- History of CVA CAD. Continue aspirin -- Nausea and vomiting. Antiemetics on board. Continue supportive care. --DVT prophylaxis with Lovenox subQ , Discharge Plan: Home Plan to discharge in: 48 Hours - Advance Directives Does patient have a Living Will: No Does patient have a Durable POA for Healthcare: No - Code Status/Comfort Care Code Status Assessed: Yes Physician Review: Patient Assessed, Agree with Above Assessment and Plan Critical Care: No
[2022-12-07] MEDS: PANTOPRAZOLE 40MG TABLET PO SCH (15:00)
[2022-12-07] MEDS: CEFTRIAXONE 1,000 MG in NA CHLORIDE 0.9% 50 ML IVPB SCH (15:00)
[2022-12-07] MEDS: INSULIN -REGULAR HUMAN 50 UNIT/0.5 ML ML SQ SCH ×2 (16:24→20:17)
[2022-12-07] MEDS: HYDROMORPHONE HCL 1 MG/ML INJ IV PRN ×2 (16:25→19:36)
[2022-12-07] MEDS: ONDANSETRON 4 MG/2 ML VIAL IV PRN (16:25)
[2022-12-07] MEDS ORDERED: PANTOPRAZOLE 40MG TABLET PO ONE (16:28)
[2022-12-07] MEDS ORDERED: HYDROMORPHONE HCL 1 MG/ML INJ ONE ×2 (16:29→19:39)
[2022-12-07] MEDS ORDERED: CEFTRIAXONE 1000 MG/VIAL ONE (16:29)
[2022-12-07 16:34] LABS: Magnesium 2.1 mg/dL (1.6-2.4); Phosphorus 3.3 mg/dL (2.5-4.9)
--- NOTE | 2022-12-07 18:10 | EKG ---
Test Date: 2022-12-07 Test Time: 09:43:43 Bridge Maintainer: STEPHANIE MEASUREMENT RESULTS: Intervals: Rate: 96 MS: 164 QRSD: 70 QT: 346 QTc: 437 [place]: P: 59 MS: 164 QRS: 23 T: 29 INTERPRETIVE STATEMENTS: Normal sinus rhythm Cannot rule out Anterior infarct, age undetermined Abnormal ECG Compared to ECG 02/03/2022 11:56:41 Myocardial infarct finding now present Electronically Signed On 12-07-22 18:01:06 CDT by Jitendra Otto
[2022-12-07 19:41] VITALS: O2SAT 96
[2022-12-08] MEDS ORDERED: TRAMADOL HCL 50 MG TAB PO PRN (02:57)
[2022-12-08] MEDS: ONDANSETRON 4 MG/2 ML VIAL IV PRN (03:15)
[2022-12-08] MEDS: HYDROCODONE/APAP 10/325 TAB PO SCH ×3 (03:31→13:14)
[2022-12-08 07:11] LABS: Potassium 4.3 mEq/L (3.5-5.1)
[2022-12-08] MEDS: INSULIN -REGULAR HUMAN 50 UNIT/0.5 ML ML SQ SCH ×3 (07:30→16:30)
--- NOTE | 2022-12-08 07:58 | RAD REPORT ---
EXAM DESCRIPTION: US - Urinary Bladder - 12/08/2022 4:04 am CLINICAL HISTORY: PVR abdominal pain COMPARISON: US LIVER ONLY dated 08/21/2013 FINDINGS: No gross abnormalities of the bladder identified. Pre-void bladder volume: 158 mL Post-void resdiual volume: 104 IMPRESSION: Postvoid residual is upper limits of normal.
[2022-12-08] MEDS ORDERED: PNEUMOCOCCAL VACCINE 0.5 ML IMVAC ONE (08:00)
[2022-12-08] MEDS ORDERED: AMLODIPINE 10 MG TAB PO SCH (09:00)
[2022-12-08] MEDS ORDERED: ASPIRIN 81 MG CHEWABLE TABLET PO SCH (09:00)
[2022-12-08] MEDS ORDERED: MONTELUKAST 10 MG TAB PO SCH (09:00)
[2022-12-08] MEDS: CEFTRIAXONE 1,000 MG in NA CHLORIDE 0.9% 50 ML IVPB SCH (09:05)
[2022-12-08] MEDS: ALPRAZOLAM 1 MG TABLET PO SCH ×2 (09:05→13:15)
[2022-12-08] MEDS: PANTOPRAZOLE 40MG TABLET PO SCH (09:05)
[2022-12-08 13:19] LABS: Absolute Lymphocytes (CBC) 1.5 K/uL (0.7-4.9); Hematocrit 39.4 % (36.0-45.0); Lymphocytes % 17.5 % (15.3-44.8); MCV 87.3 fL (80-100); MPV 8.7 fL (7.6-11.3); Platelets 147 thou/uL (152-406); RBC Red Blood Cell Count 4.51 M/uL (3.86-4.86)
[2022-12-08 16:46] VITALS: BP 115/68; TEMP 97.2
--- NOTE | 2022-12-08 18:04 | P.DS ---
Admission Date: 12/07/22 Discharge Date: 12/08/22 Disposition: ROUTINE DISCHARGE Discharge Condition: FAIR Reason for Admission: Abdominal pain - Problems (1) Abdominal pain Current Visit: No Status: Acute (2) Nausea and vomiting Current Visit: No Status: Acute (3) Chronic pain syndrome Onset Date: 08/04/16 Current Visit: No Status: Chronic (4) Cirrhosis of liver Onset Date: 10/29/14 Current Visit: No Status: Chronic Qualifiers: Hepatic cirrhosis type: unspecified hepatic cirrhosis Ascites presence: without ascites Qualified Code(s): K74.60 - Unspecified cirrhosis of liver (5) Diabetes mellitus Onset Date: 08/04/16 Current Visit: No Status: Chronic Qualifiers: Diabetes mellitus type: type 2 Diabetes mellitus senior care insulin use: without terminal makeup operator use Diabetes mellitus complication status: without complication Qualified Code(s): E11.9 - Type 2 diabetes mellitus without complications Brief History of Present Illness: Patient is a 72-year-old with a past medical history significant for hypertension, DM 2, liver cirrhosis, COPD, asthma who presented with complaint of generalized abdominal pain that has been ongoing for 4 days. Patient rated pain as 8/10 in severity and described as sharp in quality. Patient reported associated signs/symptoms of nausea, vomiting, chills, headache, dizziness and abdominal bloating. UA done in the emergency department did not show a significant evidence of UTI. CT abdomen pelvis done in the ED was unremarkable. Patient was placed under observation for further management. Hospital Course: Patient placed under observation on the medical floor and treated supportively with IV fluid, IV opioids as needed for pain and clear liquid diet. She tolerated clear liquid diet and was advanced to full liquid diet which she tolerated. She had normal episodes of vomiting. Patient has been afebrile and states her pain is improved. She is ambulatory. Patient is discharged with oral ciprofloxacin for possible UTI. Her blood sugar was borderline low and presented. Patient advised not to administer her Lantus insulin if she knows she is not eating well to avoid hypoglycemia. She has been informed to check her blood sugar before meals and call PCP if blood sugar consistently stays above 200 to resume her Lantus insulin. Vital Signs/Physical Exam: Temp Pulse Resp BP Pulse Ox 97.2 F 84 16 115/68 96 12/08/22 16:00 12/08/22 16:00 12/08/22 16:00 12/08/22 16:00 12/08/22 16:00 General: Alert, In no apparent distress, Oriented x3 HEENT: Mucous membr. moist/pink Neck: Supple, JVD not distended Respiratory: Clear to auscultation bilaterally, Normal air movement Cardiovascular: No edema, Regular rate/rhythm, Normal S1 S2 Gastrointestinal: Normal bowel sounds, Soft and benign, Non-distended, No tenderness Musculoskeletal: No swelling Integumentary: No rashes Neurological: Normal strength at 5/5 x4 extr Laboratory Data at Discharge: WBC 8.50 thou/uL (4.3-10.9) 12/08/22 13:07 Hgb 12.8 g/dL (12.0-15.0) 12/08/22 13:07 Hct 39.4 % (36.0-45.0) 12/08/22 13:07 Plt Count 147 thou/uL (152-406) L 12/08/22 13:07 PT 13.0 SECONDS (9.5-12.5) H 12/07/22 11:15 INR 1.18 12/07/22 11:15 Sodium 138 mEq/L (136-145) 12/08/22 06:32 Potassium 4.3 mEq/L (3.5-5.1) 12/08/22 06:32 BUN 18 mg/dL (7-18) 12/08/22 06:32 Creatinine 1.09 mg/dL (0.55-1.02) H 12/08/22 06:32 Glucose 72 mg/dL (74-106) L 12/08/22 06:32 Phosphorus 3.3 mg/dL (2.5-4.9) 12/07/22 16:04 Magnesium 2.1 mg/dL (1.6-2.4) 12/07/22 16:04 Total Bilirubin 0.3 mg/dL (0.2-1.0) 12/07/22 11:15 AST 35 U/L (15-37) 12/07/22 11:15 ALT 29 U/L (13-56) 12/07/22 11:15 Alkaline Phosphatase 102 U/L (45-117) 12/07/22 11:15 Triglycerides Cancelled 12/07/22 11:25 Cholesterol Cancelled 08/21/23 11:25 HDL Cholesterol Cancelled 12/07/22 11:25 Cholesterol/HDL Ratio Cancelled 12/07/22 11:25 Lipase 25 U/L (13-75) 12/07/22 11:15 Home Medications: ALPRAZolam [Xanax*] 2 mg PO TID 08/03/16 Clonidine HCl [Catapres*] 0.2 mg PO DAILY 03/25/17 Montelukast [Singulair*] 10 mg PO DAILY 03/25/17 Quetiapine Fumarate [Seroquel] 800 mg PO BEDTIME 03/25/17 Amlodipine [Norvasc*] 10 mg PO BID 12/29/18 Pantoprazole [Protonix Tab*] 40 mg PO DAILY 12/29/18 Meclizine HCl [Antivert*] 25 mg PO Q6H PRN #20 tab 02/04/22 Nepafenac [Ilevro] 1 drop OPTH QID 02/04/22 Umeclidinium [place] [Incruse Ellipta] 62.5 mcg IH DAILY 02/04/22 Ciprofloxacin HCl [Cipro 500 MG Tablet] 500 mg PO BID #10 tab 12/08/22 Hydrocodone 10/APAP 325 [[place] 10/325*] 1 tab PO TID #12 tab 12/08/22 New Medications: Ciprofloxacin HCl [Cipro 500 MG Tablet] 500 mg PO BID #10 tab Hydrocodone 10/APAP 325 [[place] 10/325*] 1 tab PO TID #12 tab Physician Discharge Instructions: Please do not administer insulin if you note you are not eating well. Check your blood sugar before meals. Please call PCP if blood sugar consistently stays above 200 to resume your Lantus insulin. Diet: ADA Activity: Ad dia Followup: DAVID HERNANDEZ [Primary Care Provider] - 1 Week Time spent managing pt's care (in minutes): 28
[2022-12-08] MEDS ORDERED: QUETIAPINE 100MG TAB PO SCH (21:00)
== END 2022-12-08 18:40 | disposition home or self-care (01) ==
LOC: ER 08:43 → ERHOLD 13:14 → 4TH 20:21
PROVIDERS: ADMIT Hospitalist; ATTEND Internal Medicine
DX: I10 Essential (primary) hypertension (principal); E11.9 Type 2 diabetes mellitus without complications; K74.60 Unspecified cirrhosis of liver; J44.9 Chronic obstructive pulmonary disease, unspecified; J45.909 Unspecified asthma, uncomplicated; R11.2 Nausea with vomiting, unspecified; R51.9 Headache, unspecified; R42 Dizziness and giddiness; N39.0 Urinary tract infection, site not specified; K21.9 Gastro-esophageal reflux disease without esophagitis; N18.2 Chronic kidney disease, stage 2 (mild); E66.9 Obesity, unspecified; Z68.36 Body mass index [BMI] 36.0-36.9, adult; Z71.3 Dietary counseling and surveillance; Z86.73 Personal history of transient ischemic attack (TIA), and cerebral infarction without residual deficits; Z88.0 Allergy status to penicillin; Z88.8 Allergy status to other drugs, medicaments and biological substances; G89.4 Chronic pain syndrome; Z23 Encounter for immunization
CPT/HCPCS: 93005; 85025 ×2; 81001; 80048 ×2; 36415 ×2; 83735 ×2; 84100; 85610; 80061; 82947 ×6; 80076; 84484; 83690; 83880; 71250; 74176; 71045; 76857; 96375; 96374; 99285; J1170 ×3; J2405 ×3; J7040; J7030; J0696 ×2; G0378

== ENCOUNTER 2024-02-10 11:34 | Inpatient (IN) | payer OTHER ==
--- OUTSIDE RECORDS SUMMARY | 2024-02-10 11:45 | XMS REPORT | Continuity of Care Document ---
Author Name Unknown Address [address] [facility] [place] [address] [facility] thconnect Address [address] [facility] [place] [address] Care Team Providers Care Instructional Resource Teacher Name Role Phone Thu [facility] Primary Care Physician Perez Hollins MD Attending Clinician [phone] PEREZ HOLLINS Attending Clinician Unavailabl e PEREZ HOLLINS Attending Clinician Unavailabl e Doctor Unassigned, Morris Chapel Attending Clinician U navailable AD ESPARZA Attending Clinician Unavailable Dov David Attending Clinician [phone] DOV FLEMING Attending Clinician Unavailable BENJAMÍN TAYLOR Attending Clinician Unavailable Benjamín Taylor MD Attending Clinician [phone] Lab, Ang - Db Attending Clinician Unavailable José NIX, Melia K.H. Attending Clinician + [phone] MELIA PHILIPPE K.H. Attending Clinician Unavailmatthew James RN, Mihir Grant Attending Clinician Unavail able Leonarda Nava DO Attending Clinician [phone] Carlitos Urieb MD Attending Clinician [phone] CARLITOS URIBE Attending Clinician Unavailable AD ESPARZA Admitting Clinician Unavailable BENJAMÍN TAYLOR Admitting Clinician Unavailable MELIA PHILIPPE Admitting Clinician Unavailmatthew Uribe MD, Carlitos Admitting Clinician [phone] CARLITOS URIBE Admitting Clinician Unavailable Payers Payer Name Policy Type Policy Number Effective Date Expirati on Date Source [employer] MED[employer] OUT OF NETWORK [id number] 2021 00:00:00 2022 00:00:00 Problems Condition Name Condition Details Condition Category Status Onset Date Resolution Date Last Treatment Date Treating Clinician Comments Source Pneumonia due to COVID-19 virus Pneumonia due to COVID-19 virus Disease Active 06-11 00:00: 00 [facility] Obesity (BMI 30-39.9) Obesity (BMI 30-39.9) Disease Active 10-26 00:00: 00 [facility] Allergies, Adverse Reactions, Alerts Allergy Name Allergy Type Status Severity Reaction(s) Onset Date Inactive Date Treating Clinician Comments Source TRAMADOL DRUG INGREDI Active ITCHING 08-10 00:00: 00 [facility] Tramadol Propensi ty to adverse reaction s Active Itching 08-10 00:00: 00 [facility] Penicill ins - CLASS Propensi ty to adverse reaction to drug Active 2021-04 2 00:00: 00 Lane Rajni Michelet Penicill ins Propensi ty to adverse reaction to drug Active 07-25 00:00: 00 [facility] Propoxyp hene N-Acetam inophen Propensi ty to adverse reaction s Active Nausea and/or Vomiting 12-17 00:00: 00 [facility] Penicill ins Propensi ty to adverse reaction s Active Rash 12-17 00:00: 00 [facility] Ketorola c Propensi ty to adverse reaction s Active Itching 12-17 00:00: 00 [facility] PROPOXYP HENE N-ACETAM INOPHEN DRUG Active N/V 12-17 00:00: 00 [facility] PENICILL INS Drug Class Active Rash 12-17 00:00: 00 [facility] KETOROLA C DRUG INGREDI Active ITCHING 12-17 00:00: 00 [facility] Penicill ins Propensi ty to adverse reaction s Active Rash 12-17 00:00: 00 [facility] Social History Social Habit Start Date Stop Date Quantity Comments Source [facility] SARS-CoV-2 (event) 2022-08-16 00:00:00 2022-08-26 15:32:00 Not sure [facility] Alcohol intake 2022-08-26 00:00:00 2022-08-26 00:00:00 Current non-drinker of alcohol (finding) [facility] History of Social function 2022-04-03 00:00:00 2022-04-03 00:00:00 [facility] Tobacco use and exposure 2022-04-03 00:00:00 2022-04-03 00:00:00 Smokeless tobacco non-user [facility] Sex Ass[birth year] At 1950 00:00:00 1950 00:00:00 [facility] Smoking Status Start Date Stop Date Source Never smoked tobacco [facility] Medications Ordered Medication Name Filled Medication Name Start Date Stop Date Current Medication? Ordering Clinician Indication Dosage Frequency Signature (SIG) Comments Components Source Tresiba FlexTouch U-200 insulin 200 unit/mL (3 mL) subcutaneou s pen 2023-04 00:00: 00 Yes (3 mL) Lane [facility] Januvia 100 mg tablet 2023-04 00:00: [address] [facility] estradiol 1 mg tablet 01-11 00:00: [address] [facility] pantoprazol e 40 mg tablet,mellisa yed release 01-11 00:00: [address] [facility] montelukast 10 mg tablet 01-11 00:00: [address] [facility] quetiapine 400 mg tablet 01-11 00:00: [address] [facility] losartan 50 mg tablet 01-02 00:00: [address] [facility] promethazin e 50 mg tablet 12-06 00:00: [address] [facility] clonidine HCl 0.2 mg tablet 12-06 00:00: [address] [facility] Tresiba FlexTouch U-200 insulin 200 unit/mL (3 mL) subcutane s pen 12-06 00:00: 00 Yes (3 mL) Lane [facility] metoclopram chrissy 10 mg tablet 12-06 00:00: [address] [facility] trazodone 50 mg tablet 12-06 00:00: [address] [facility] HYDROCODONE BITARTRATE/ ACETAMINOPH E N 10-325 MG TABS 08-18 00:00: [address] [facility] promethazin e 50 mg tablet 08-11 00:00: [address] [facility] clonidine HCl 0.2 mg tablet 08-11 00:00: [address] [facility] Combivent Respimat 20 mcg-100 mcg/actuati on solution for inhalation 08-11 00:00: 00 Yes mcg/act uation Lane [facility] Tresiba FlexTouch U-200 insulin 200 unit/mL (3 mL) [facility] 08-11 00:00: 00 Yes (3 mL) Lane [facility] pantoprazol e 40 mg tablet,mellisa yed release 08-11 00:00: [address] [facility] montelukast 10 mg tablet 08-11 00:00: [address] [facility] losartan 50 mg tablet 08-11 00:00: [address] [facility] Januvia 100 mg tablet 08-11 00:00: [address] [facility] estradiol 1 mg tablet 08-11 00:00: [address] [facility] metoclopram chrissy 10 mg tablet 08-11 00:00: [address] [facility] bupropion HCl SR 150 mg tablet,12 hr sustained-r elease 08-11 00:00: [address] [facility] quetiapine 400 mg tablet 08-11 00:00: [address] [facility] trazodone 50 mg tablet 08-11 00:00: [address] [facility] duloxetine 30 mg capsule,del ayed release 08-11 00:00: [address] [facility] QUETIAPINE FUMARATE ER 400 MG TB24 08-11 00:00: [address] [facility] OZEMPIC 4 MG/3ML SOPN 08-11 00:00: [address] [facility] estradiol 1 mg tablet 07-25 00:00: [address] [facility] fluoxetine 20 mg capsule 07-25 00:00: [address] [facility] TAKE 1 TABLET BY MOUTH TWICE A DAY 07-21 00:00: [address] [facility] Tresiba FlexTouch U-200 insulin 200 unit/mL (3 mL) subcutaneou s pen 07-13 00:00: 00 Yes (3 mL) Lane [facility] diclofenac 1 % topical gel 07-13 00:00: 00 Yes 1% Lane [facility] diclofenac sodium 75 mg tablet,mellisa yed release 07-13 00:00: [address] [facility] TAKE 1 TABLET BY MOUTH TWICE A DAY 06-23 00:00: [address] [facility] TAKE 1 TABLET BY MOUTH TWICE A DAY 05-27 00:00: [address] [facility] TAKE 1 CAPSULE BY MOUTH TWICE DAILY. 05-14 00:00: 00 08-25 00:00 :[address] [facility] bupropion HCl SR 150 mg tablet,12 hr sustained-r elease 05-13 00:00: [address] [facility] clonidine HCl 0.2 mg tablet 05-13 00:00: [address] [facility] Januvia 100 mg tablet 05-13 00:00: [address] [facility] losartan 50 mg tablet 05-13 00:00: [address] [facility] metoclopram chrissy 10 mg tablet 05-13 00:00: [address] [facility] montelukast 10 mg tablet 05-13 00:00: [address] [facility] pantoprazol e 40 mg tablet,mellisa yed release 05-13 00:00: [address] [facility] promethazin e 50 mg tablet 05-13 00:00: [address] [facility] Tresiba FlexTouch U-200 insulin 200 unit/mL (3 mL) subcutaneou s pen 05-13 00:00: 00 Yes (3 mL) Lane [facility] estradiol 1 mg tablet 05-13 00:00: [address] [facility] fluoxetine 20 mg capsule 05-13 00:00: [address] [facility] TAKE 2 TABLETS BY MOUTH AT BEDTIME. 05-13 00:00: 00 08-25 00:00 :[address] [facility] TAKE 1 CAPSULE BY MOUTH AT BEDTIME. 05-13 00:00: 00 08-25 00:00 :[address] [facility] TAKE 1 TABLET BY MOUTH TWICE DAILY. 05-13 00:00: 00 08-25 00:00 :[address] [facility] TAKE 1 TABLET BY MOUTH TWICE A DAY 04-27 00:00: [address] [facility] quetiapine 400 mg tablet 2022-04 00:00: [address] [facility] Combivent Respimat 20 mcg-100 mcg/actuati on solution for inhalation 2022-04 00:00: 00 Yes mcg/act uation Lane [facility] OZEMPIC 2 MG/3ML SOPN 2022-04 00:00: [address] [facility] TAKE 2 TABLETS AT BEDTIME. 2022-04 00:00: 00 08-25 00:00 :[address] [facility] TAKE 1 TABLET BY MOUTH TWICE A DAY 2022-04 00:00: [address] Rajni [facility] APPLY 1 PATCH TO THE AFFECTED AREA AND LEAVE IN PLACE FOR 12 HOURS, THEN REMOVE AND LEAVE OFF FOR 12 HOURS. 2022-04 00:00: 00 08-25 00:00 :[address] [facility] TAKE 1 TABLET ONCE WEEKLY. 2022-04 00:00: 00 08-25 00:00 :[address] [facility] TAKE 1 CAPSULE DAILY WITH FOOD. 2022-04 00:00: 00 08-25 00:00 :[address] [facility] HYDROCODONE /ACETAMINOP HEN 7.5-325 MG TABS 2022-04 00:00: [address] [facility] HYDROcodone -acetaminop hen (NORCO) 10-325 mg tablet 1 tablet 2022-04 02:30: 00 02-23 01:23 :00 No 1{tbl} 1 tablet, Oral, ONCE, 1 dose, On Wed02/22/23 at 2030, Routine [facility] proMETHazin e (PHENERGAN) tablet 25 mg 2022-04 01:00: 00 02-23 01:13 :00 No 25mg 25 mg, Oral, ONCE, 1 dose, On Wed02/22/23 at 1900, HELENE [facility] cefTRIAXone (ROCEPHIN) 1,000 mg in NaCl 0.9% (NS) 100 mL MINI-BAG 2022-04 00:30: 00 02-23 01:14 :00 No 1000mg 1,000 mg, IV Piggyback, ONCE, 1 dose, On Wed02/22/23 at 1830, Administer over 30 Minutes, 100 mL
Reas on for Anti-Infec tive: Documented Infection< br>Documen radha Infection Site: Respirator y
Durat ion of Therapy: 7 days [facility] albuterol (PROVENTIL) 2.5 mg /3 mL (0.083 %) nebulizer solution 2.5 mg 2022-04 00:15: 00 02-23 00:21 :00 No 2.5mg 2.5 mg, Inhalation , ONCE, 1 dose, On Wed02/22/23 at 1815, STAT [facility] benzonatate (TESSALON PERLES) capsule 100 mg 2022-04 23:45: 00 02-22 23:25 :00 No 100mg 100 mg, Oral, ONCE, 1 dose, On Wed02/22/23 at 1745, Routine [facility] methylpredn isolone sod succ (SOLU-MEDRO L) injection 125 mg 2022-04 23:00: 00 02-22 23:25 :00 No 125mg 125 mg, Intravenou s, ONCE, 1 dose, On Wed02/22/23 at 1700, 2 mL [facility] albuterol (PROVENTIL) 2.5 mg /3 mL (0.083 %) nebulizer solution 2.5 mg 2022-04 22:30: 00 02-22 23:25 :00 No 2.5mg 2.5 mg, Inhalation , ONCE, 1 dose, On Wed02/22/23 at 1630, STAT [facility] TAKE BY MOUTH DIRECTED IN PACKAGE. 2022-04 00:00: [address] [facility] TAKE ONE (1) CAPSULE(S) BY MOUTH THREE TIMES A DAY NEEDED FOR COUGH. 2022-04 00:00: [address] [facility] TAKE ONE (1) CAPSULE(S) BY MOUTH EVERY TWELVE HOURS. 2022-04 00:00: [address] [facility] cefdinir 300 mg capsule 2022-04 00:00: 00 Yes [id number] 300mg Take 1 capsule by mouth every 12 (twelve) hours. [facility] methylPREDN ISolone 4 mg tablets 2022-04 00:00: 00 Yes [id number] Take by mouth SEE-INSTRU CTIONS. follow package directions [facility] benzonatate 100 mg capsule 2022-04 00:00: 00 Yes [id number] 100mg Take 1 capsule by mouth 3 (three) times daily as needed for Cough. [facility] INHALE 2 PUFFS BY MOUTH DAILY 2022-04 00:00: [address] [facility] MONTELUKAST SODIUM 10 MG TABS 2022-04 00:00: [address] [facility] TRESIBA FLEXTOUCH 200 UNIT/ML SOPN 2022-04 00:00: [address] [facility] BUSPIRONE HCL 30 MG TABS 2022-04 00:00: [address] [facility] PANTOPRAZOL E SODIUM 40 MG TBEC 2022-04 00:00: [address] [facility] ESTRADIOL 1 MG TABS 2022-04 00:00: [address] [facility] ALBUTEROL SULFATE (2.5 MG/3ML) 0.083% NEBU 2022-04 00:00: [address] [facility] APPLY SPARINGLY TO AFFECTED AREA(S) TWICE DAILY 2022-04 00:00: 00 08-25 00:00 :[address] [facility] TAKE 1 TABLET DAILY. 2022-04 00:00: 00 08-25 00:00 :[address] [facility] TAKE 1 CAPSULE BY MOUTH ONCE DAILY 2022-04 00:00: 00 08-25 00:00 :[address] 1 TABLET ON THE TONGUE AND ALLOW TO DISSOLVE TWO TIMES DAILY. 2022-04 00:00: 00 08-25 00:00 :[address] [facility] TAKE 1 CAPSULE TWICE DAILY. 2022-04 00:00: 00 08-25 00:00 :[address] [facility] TAKE 2 TABLETS AT BEDTIME. 2022-04 00:00: 00 08-25 00:00 :[address] [facility] TAKE 1 TABLET DAILY. 2022-04 00:00: 00 08-25 00:00 :[address] [facility] TAKE 1 CAPSULE AT BEDTIME. 2022-04 00:00: 00 08-25 00:00 :[address] [facility] TAKE 1 TABLET DAILY. 2022-04 00:00: 00 08-25 00:00 :[address] [facility] TAKE 1 CAPSULE WEEKLY. 2022-04 00:00: 00 08-25 00:00 :[id number] [facility] SWISH AND SWALLOW 5ML 4 TIMES DAILY. 2022-04 00:00: 00 08-25 00:00 :[id number] [facility] TAKE 1 TABLET DAILY. 2022-04 00:00: 00 08-25 00:00 :[address] [facility] TAKE 1 TABLET TWICE DAILY. 2022-04 00:00: 00 08-25 00:00 :[address] [facility] TAKE 1 TABLET TWICE DAILY. 2022-04 00:00: 00 08-25 00:00 :[address] [facility] OZEMPIC 2 MG/3ML SOPN 2022-04 00:00: [address] [facility] APPLY 2-3 TIMES DAILY TO AFFECTED AREA(S). 2022-04 00:00: 00 08-25 00:00 :[id number] [facility] TAKE 1 TABLET BY MOUTH TWICE A DAY 2022-04 00:00: [address] [facility] APPLY 2-3 TIMES DAILY TO AFFECTED AREA(S). 12-29 00:00: 00 08-25 00:00 :[id number] [facility] SWISH AND SWALLOW 5ML 4 TIMES DAILY. 12-29 00:00: 00 08-25 00:00 :[id number] [facility] TAKE 10 ML BY MOUTH EVERY 4 TO 6 HOURS NEEDED FOR COUGH. 12-10 00:00: 00 08-25 00:00 :[id number] [facility] INJECT 80 UNITS DAILY 12-08 00:00: 00 Yes [address] [facility] CIPROFLOXAC IN HYDROCHLORI DE 500 MG TABS 12-08 00:00: [address] [facility] TAKE ONE (1) TABLET(S) BY MOUTH THREE TIMES A DAY FOR CHRONIC PAIN. 12-08 00:00: [address] [facility] TAKE 2 TABLETS AT BEDTIME. 12-08 00:00: 00 08-25 00:00 :[address] [facility] TAKE 1 TABLET BY MOUTH TWICE DAILY 8-15 00:00: [address] [facility] PROMETHAZIN E HYDROCHLORI DE 50 MG TABS 8-14 00:00: [address] [facility] TAKE 1 TABLET TWICE DAILY. 11-10 00:00: 00 08-25 00:00 :[address] [facility] TAKE 1 CAPSULE BY MOUTH ONCE DAILY 11-10 00:00: 00 08-25 00:00 :00 No 20 [address] [facility] TAKE 1 TABLET BY MOUTH TWICE DAILY 11-02 00:00: 00 Yes Lanec[address] [facility] INJECT 0.5 MG WEEKLY 10-16 00:00: 00 08-25 00:00 :00 No 23 [address] [facility] DULOXETINE HCL 30 MG CPEP 09-08 00:00: [address] [facility] TAKE 1 TABLET TWICE DAILY. 09-08 00:00: 00 08-25 00:00 :[address] 1 TABLET ON THE TONGUE AND ALLOW TO DISSOLVE TWO TIMES DAILY. 09-08 00:00: 00 08-25 00:00 :[address] [facility] TAKE 1 TABLET DAILY. 09-08 00:00: 00 08-25 00:00 :[address] [facility] INJECT 0.5 MG WEEKLY 09-08 00:00: 00 08-25 00:00 :[address] [facility] INHALE 2 PUFFS BY MOUTH DAILY 09-08 00:00: 00 08-25 00:00 :[id number] [facility] TAKE 1 CAPSULE TWICE DAILY. 09-08 00:00: 00 08-25 00:00 :[address] [facility] APPLY 2-3 TIMES DAILY TO AFFECTED AREA(S). 09-08 00:00: 00 08-25 00:00 :[id number] [facility] TAKE 1 TABLET DAILY. 09-08 00:00: 00 08-25 00:00 :[address] [facility] TAKE 1 TABLET DAILY. 09-08 00:00: 00 08-25 00:00 :[address] [facility] TAKE 1 CAPSULE WEEKLY. 09-08 00:00: 00 08-25 00:00 :[id number] [facility] APPLY SPARINGLY TO AFFECTED AREA(S) TWICE DAILY 09-08 00:00: 00 08-25 00:00 :[address] [facility] TAKE 1 TABLET DAILY. 09-08 00:00: 00 08-25 00:00 :[address] [facility] TAKE 1 TABLET DAILY. 09-08 00:00: 00 08-25 00:00 :[address] [facility] TAKE ONE (1) TABLET(S) BY MOUTH TWICE A DAY. 08-31 00:00: [address] [facility] QUETIAPINE FUMARATE 400 MG TABS 08-28 00:00: [address] [facility] TAKE 1 TABLET DAILY. 08-28 00:00: 00 08-25 00:00 :[address] [facility] TAKE 2 TABLETS AT BEDTIME. 08-28 00:00: 00 08-25 00:00 :[address] [facility] INJECT 80 UNITS DAILY 08-28 00:00: 00 08-25 00:00 :[address] [facility] morpHINE (4 mg/mL) injection 4 mg 08-10 21:15: 00 08-10 20:11 :00 No 4mg 4 mg, Slow IV Push, ONCE, 1 dose, On Wed08/10/22 at 1615, STAT [facility] ondansetron (ZOFRAN-ODT ) disintegrat ing tablet 4 mg 08-10 21:15: 00 08-10 20:09 :00 No 4mg 4 mg, Oral, ONCE, 1 dose, On Wed08/10/22 at 1615, HELENE [facility] levoFLOXaci n (LEVAQUIN) tablet 500 mg 08-10 18:45: 00 08-10 18:54 :00 No 500mg 500 mg, Oral, ONCE, 1 dose, On Wed08/10/22 at 1345, HELENE
Re ason for Anti-Infec tive: Empiric Therapy for Suspected Infection< br>Empiric Therapy Site: Urine
D uration of therapy: 72 hours [facility] iopamidol (ISOVUE 370-500 mL) injection 100 mL 08-10 18:15: 00 08-10 17:18 :00 No [id number] 100mL 100 mL, Intravenou s, ONCE, 1 dose, On Wed08/10/22 at 1315, Routine [facility] morpHINE (4 mg/mL) injection 4 mg 08-10 16:00: 00 08-10 15:49 :00 No 4mg 4 mg, Slow IV Push, ONCE, 1 dose, On Wed08/10/22 at 1100, STAT [facility] NaCl 0.9% (NS) bolus infusion 1,000 mL 08-10 15:45: 00 08-10 18:20 :00 No 1000mL at 999 mL/hr, 1,000 mL, IV Piggyback, ONCE, 1 dose, On Wed08/10/22 at 1045, STAT [facility] ondansetron (ZOFRAN (PF)) injection 4 mg 08-10 15:00: 00 08-10 15:48 :00 No 4mg 4 mg, Slow IV Push, ONCE, 1 dose, On Wed08/10/22 at 1000, HELENE [facility] LEVOFLOXACI N 500 MG TABS 08-10 00:00: [address] [facility] ONDANSETRON ODT 4 MG TBDP 08-10 00:00: [address] [facility] TRESIBA FLEXTOUCH 200 UNIT/ML SOPN 08-10 00:00: [address] [facility] ondansetron 4 mg disintegrat ing tablet 08-10 00:00: 00 Yes [id number] 4mg Take 1 tablet by mouth every 8 (eight) hours as needed for Nausea and Vomiting (N/V). [facility] TAKE 1 TABLET BY MOUTH DAILY 08-10 00:00: 00 08-25 00:00 :[address] [facility] levoFLOXaci n (LEVAQUIN) 500 mg tablet 08-10 00:00: 00 08-14 04:59 :00 No [id number] 500mg Take 1 tablet by mouth in the morning for 3 days. [facility] HYDROcodone -acetaminop hen (NORCO) 5-325 mg tablet 08-05 00:00: 00 08-13 04:59 :00 No [id number] 1{tbl} Take 1 tablet by mouth every 6 (six) hours as needed for Pain (scale 4-6) for up to 7 days. Indication s: acute pain [facility] TAKE ONE (1) TABLET(S) BY MOUTH TWICE A DAY. 08-03 00:00: [address] [facility] tc 99m-tetrofo smin (MYOVIEW) injection 42 millicurie 07-09 16:15: 00 07-09 16:10 :00 No [id number] 42mCi 42 millicurie , Intravenou s, ONCE, 1 dose, On Yulisa 07/09/22 at 1115, Routine [facility] regadenoson (LEXISCAN) injection 0.4 mg 07-09 15:15: 00 07-09 15:35 :00 No [id number] .4mg 0.4 mg, IV Push, ONCE, 1 dose, On Yulisa 07/09/22 at 1015, Routine
count team member approving Restricted medication : MELIA PHILIPPE [facility] tc 99m-tetrofo smin (MYOVIEW) injection 15.7 millicurie 07-09 13:45: 00 07-09 13:39 :00 No [id number] 15.7mCi 15.7 millicurie , Intravenou s, ONCE, 1 dose, On Yulisa 07/09/22 at 0845, Routine [facility] TAKE ONE (1) TABLET(S) BY MOUTH TWICE A DAY. 07-08 00:00: [address] [facility] TAKE 1 TABLET TWICE DAILY. 07-07 00:00: 00 08-25 00:00 :[address] [facility] DULOXETINE HCL 30 MG CPEP 07-04 00:00: [address] [facility] INJECT 1.8 MG SUBCUTANEOU SLY EVERY DAY 07-04 00:00: [address] [facility] CLONIDINE HYDROCHLORI DE 0.2 MG TABS 07-04 00:00: [address] [facility] TAKE 1 TABLET DAILY. 07-04 00:00: 00 08-25 00:00 :[address] 1 TABLET ON THE TONGUE AND ALLOW TO DISSOLVE TWO TIMES DAILY. 07-04 00:00: 00 08-25 00:00 :[address] [facility] TAKE 1 TABLET DAILY. 07-04 00:00: 00 08-25 00:00 :[address] [facility] TAKE 1 TABLET BY MOUTH EVERY MORNING 07-04 00:00: 00 08-25 00:00 :[address] [facility] TAKE 1 CAPSULE TWICE DAILY. 07-04 00:00: 00 08-25 00:00 :[address] [facility] TAKE 1 CAPSULE WEEKLY. 07-04 00:00: 00 08-25 00:00 :[id number] [facility] TAKE 2 TABLETS AT BEDTIME. 07-04 00:00: 00 08-25 00:00 :[address] [facility] TAKE 1 TABLET DAILY. 07-04 00:00: 00 08-25 00:00 :[address] [facility] TAKE 1 TABLET DAILY. 07-04 00:00: 00 08-25 00:00 :[address] [facility] TAKE 1 TABLET TWICE DAILY. 07-04 00:00: 00 08-25 00:00 :[address] [facility] TAKE 1 TABLET DAILY. 07-04 00:00: 00 08-25 00:00 :[address] [facility] USE 1 VIAL IN NEBULIZER EVERY 6 HOURS NEEDED. 07-04 00:00: 00 08-25 00:00 :[id number] [facility] TAKE 1 TABLET TWICE DAILY. 07-04 00:00: 00 08-25 00:00 :[address] [facility] INHALE 2 PUFFS BY MOUTH DAILY 07-04 00:00: 00 08-25 00:00 :[id number] [facility] TAKE 1 TABLET DAILY. 07-04 00:00: 00 08-25 00:00 :[address] [facility] TAKE 1 TABLET BY MOUTH DAILY 07-04 00:00: 00 08-25 00:00 :[address] [facility] [address] 75 MG TBEC 06-23 00:00: [address] [facility] TAKE ONE (1) TABLET(S) BY MOUTH TWICE A DAY. 06-10 00:00: [address] [facility] TAKE 1 TABLET DAILY. 05-27 00:00: 00 08-25 00:00 :[address] [place] INJECT 1.8 MG SUBCUTANEOU SLY EVERY DAY 05-26 00:00: [address] [facility] COMBIVENT RESPIMAT 20-100 MCG/ACT AERS 05-26 00:00: [address] [facility] CLONIDINE HYDROCHLORI DE 0.2 MG TABS 05-26 00:00: [address] [facility] QUETIAPINE FUMARATE 400 MG TABS 05-26 00:00: [address] [facility] TERBINAFINE HCL 250 MG TABS 05-26 00:00: [address] [facility] TAKE 1 TABLET BY MOUTH DAILY 05-26 00:00: 00 08-25 00:00 :[address] [facility] TAKE 1 CAPSULE TWICE DAILY. 05-26 00:00: 00 08-25 00:00 :[address] [facility] TAKE 1 TABLET DAILY. 05-26 00:00: 00 08-25 00:00 :[address] [facility] TAKE 1 TABLET DAILY. 05-26 00:00: 00 08-25 00:00 :[address] [facility] TAKE 1 TABLET BY MOUTH EVERY MORNING 05-26 00:00: 00 08-25 00:00 :[address] [facility] TAKE 1 TABLET TWICE DAILY. 05-26 00:00: 00 08-25 00:00 :[address] 1 TABLET ON THE TONGUE AND ALLOW TO DISSOLVE TWO TIMES DAILY. 05-26 00:00: 00 08-25 00:00 :[address] [facility] USE 1 VIAL IN NEBULIZER EVERY 6 HOURS NEEDED. 05-26 00:00: 00 08-25 00:00 :[id number] [facility] TAKE 1 CAPSULE WEEKLY. 05-26 00:00: 00 08-25 00:00 :[id number] [facility] TAKE 1 CAPSULE AT BEDTIME. 05-26 00:00: 00 08-25 00:00 :[address] [facility] TAKE 1 TABLET DAILY. 05-26 00:00: 00 08-25 00:00 :[address] [facility] TAKE 1 TABLET DAILY. 05-26 00:00: 00 08-25 00:00 :[address] [facility] TAKE 1 TABLET TWICE DAILY. 05-26 00:00: 00 08-25 00:00 :[address] [facility] TAKE 2 TABLETS AT BEDTIME. 05-26 00:00: 00 08-25 00:00 :[address] [place] INJECT 80 UNITS DAILY 05-26 00:00: 00 08-25 00:00 :[address] [place] liraglutide (VICTOZA 3-PEPE) 0.6 mg/0.1 mL (18 mg/3 mL) injection 05-20 12:56: 04 Yes [id number] .[id number] inject 0.6 mg under the skin. [facility] ALPRAZolam 2 mg tablet 04-24 14:34: 59 Yes 2mg Take 2 mg by mouth 3 (three) times daily as needed for Sleep. [facility] INSULIN DEGLUDEC (TRESIBA FLEXTOUCH U-100 SC) 04-24 14:34: 59 Yes 80U inject 80 Units under the skin every morning. [facility] pantoprazol e 20 mg EC tablet 04-24 14:34: 59 Yes 20mg Take 20 mg by mouth daily. [facility] cloNIDine 0.2 mg tablet 04-24 14:34: 59 Yes .2mg Take 0.2 mg by mouth 3 (three) times daily. [facility] metoprolol succinate XL 50 mg 24 hr tablet 04-24 14:34: 59 Yes 50mg Take 50 mg by mouth 2 (two) times daily. [facility] QUEtiapine 400 mg tablet 04-24 14:34: 59 Yes 800mg Take 800 mg by mouth at bedtime. [facility] liraglutide (VICTOZA 3-PEPE) 0.6 mg/0.1 mL (18 mg/3 mL) injection 04-24 14:34: 59 Yes [id number] .6mg inject 0.6 mg under the skin. [facility] TAKE 1 TABLET BY MOUTH IN THE MORNING AND IN THE EVENING WITH MEALS 04-20 00:00: [address] [place] diclofenac 75 mg EC tablet 04-20 00:00: 00 06-23 00:00 :00 No 75mg Take 1 tablet by mouth in the morning and 1 tablet in the evening. Take with meals. [facility] TAKE 1 CAPSULE BY MOUTH IN THE MORNING FOR 30 DAYS. 2021-04 00:00: [address] [place] celecoxib (CELEBREX) 200 mg capsule 2021-04 00:00: 00 05-18 05:59 :00 No [id number] 200mg Take 1 capsule by mouth in the morning for 30 days. [facility] NABUMETONE 750MG 2021-04 00:00: [address] [place] nabumetone (RELAFEN) 750 mg tablet 2021-04 00:00: 00 04-17 00:00 :00 No [id number] 750mg Take 1 tablet by mouth in the morning for 30 days. [facility] Dose Unknown 2021-04 00:00: [address] [facility] INJECT 80 UNITS DAILY 2021-04 00:00: [address] [facility] Dose Unknown 2021-04 00:00: [address] [facility] Dose Unknown 2021-04 00:00: [address] [facility] LOSARTAN POT 50MG TAB 2021-04 00:00: [address] [facility] TAKE 1 TABLET BY MOUTH EVERY 12 HOURS NEEDED FOR NAUSEA AND VOMITING 2021-04 00:00: [address] [facility] CIPROFLOXAC IN HYDROCHLORI 500MG TAB 2021-04 00:00: [address] [facility] MONTELUKAST 10MG TAB 2021-04 00:00: [address] [facility] TAKE ONE (1) TABLET(S) BY MOUTH ONCE A DAY. 2021-04 00:00: [address] [facility] DULOXETINE HCL 30MG DR 2021-04 2-16 00:00: [address] Rajni Michelet Dose Unknown 2021-04 2- 00:00: [address] Rajni [facility]he[facility] Dose Unknown 2021-04 2- 00:00: [address] [facility] DICYCLOMINE 20MG TAB 2021-04 2-16 00:00: [address] [facility] Dose Unknown 2021-04 2-16 00:00: [address] Rajni Michelet Dose Unknown 2021-04 2- 00:00: [address] Rajni Miche[facility] Dose Unknown 2021-04 2-16 00:00: [address] [facility] Dose Unknown 2021-04 00:00: 00 08-25 00:00 :[address] [facility] diclofenac 75 mg EC tablet 2021-04 00:00: 00 04-17 00:00 :00 No [id number] 75mg Take 1 tablet by mouth in the morning and 1 tablet in the evening. Take with meals. Do all this for 30 days. [facility] CLONIDINE 0.2MG TAB 2021-04 00:00: [address] [facility] Dose Unknown 2021-04 00:00: [address] [facility] TAKE ONE (1) TABLET BY MOUTH TWICE A DAY. 2021-04 00:00: [address] [facility] Dose Unknown 2021-04 00:00: [address] [facility] Dose Unknown 2021-04 00:00: [address] [facility] BUSPIRONE HYDROCHLORI DE 30MG TAB 2021-04 00:00: [address] [facility] TAKE ONE (1) TABLET(S) BY MOUTH EVERY SIX HOURS NEEDED FOR PAIN. 2021-04 00:00: [address] [facility] APAP/CODEIN E #3 TAB 2021-04 00:00: [address] [facility] ESTRADIOL 1MG TAB 2021-04 00:00: [address] [facility] TAKE TWO (2) TABLETS BY MOUTH DAILY. 2021-04 00:00: [address] [facility] Dose Unknown 2021-04 00:00: [address] [facility] ONDANSETRON HYDROCHLORI DE 4MG TAB 2021-04 00:00: [address] [facility] Dose Unknown 2021-04 00:00: [address] [facility] TAKE ONE (1) TABLET(S) BY MOUTH TWICE A DAY. 2021-04 00:00: [address] [facility] DICLOFENAC SODIUM DR 75MG EC TAB 2021-04 00:00: [address] [facility] FAMOTIDINE 20MG TAB 2021-04 00:00: [address] [facility] Dose Unknown 2022-1 2-15 00:00: [address] [facility] Dose Unknown 2021-04 215 00:00: [address] Rajni [facility] TRAMADOL HCL 50MG TAB 2021-04 215 00:00: 00 Yes Laneclement T[facility] TAKE ONE (1) CAPSULE BY MOUTH TWICE A DAY NEEDED. 2021-04 2 00:00: [address] [facility] Dose Unknown 2021-04 215 00:00: [address] [facility] Dose Unknown 2021-04 00:00: [address] [facility] TAKE TWO (2) TABLET(S) BY MOUTH EVERY SIX HOURS NEEDED FOR DIZZINESS. 2021-04 00:00: [address] [facility] Dose Unknown 2021-04 00:00: [address] [facility] INHALE TWO (2) PUFF(S) BY MOUTH DAILY. 2021-04 2 00:00: [address] [facility] Dose Unknown 2021-04 2 00:00: [address] [facility] Dose Unknown 2021-04 00:00: 00 Yes Laneclement [facility] TAKE ONE (1) CAPSULE(S) BY MOUTH TWICE A DAY. 2021-04 00:00: [address] Rajni Taf[facility] TAKE 1 TABLET BY MOUTH EVERY DAY IN THE MORNING 2021-04 215 00:00: [address] [facility] Dose Unknown 2021-04 215 00:00: [address] [facility] Dose Unknown 2021-04 215 00:00: [address] [facility] Dose Unknown 2021-04 215 00:00: [address] [facility] [place] Dose Unknown 2021-04 215 00:00: [address] [facility] [place] Dose Unknown 2021-04 215 00:00: [address] [facility] Dose Unknown 2021-04 215 00:00: [address] [facility] [place] TAKE 1 TABLET TWICE DAILY. 2021-04 2 00:00: 00 08-25 00:00 :[address] [facility] TAKE 1 TABLET 3 TIMES DAILY. 2021-04 2 00:00: 00 08-25 00:00 :[address] F [facility] APPLY 2-3 TIMES DAILY TO AFFECTED AREA(S). 2021-04 2 00:00: 00 08-25 00:00 :[address] [facility] TAKE 1 TABLET BY MOUTH DAILY 2021-04 2 00:00: 00 08-25 00:00 :[address] Rajni [facility] TAKE 1 TABLET 4 TIMES DAILY. 2021-04 2 00:00: 00 08-25 00:00 :[address] Rajni [facility] TAKE 1 TABLET EVERY 8 HOURS WITH FOOD NEEDED. 2021-04 2 00:00: 00 08-25 00:00 :[address] Rajni [facility] TAKE 1 TABLET DAILY. 2021-04 00:00: 00 08-25 00:00 :[address] Rajni [facility] Dose Unknown 2021-04 00:00: 00 08-25 00:00 :[address] Rajni [facility] Dose Unknown 2021-04 00:00: 00 08-25 00:00 :[address] Rajni Taf[facility] TRESIBA FLEXTOUCH 200U/ML PEN 2021-04 2 00:00: 00 No TERBINAFINE HCL 250MG TAB 2021-04 00:00: 00 No TAKE 1 TABLET BY MOUTH EVERY MORNING 2021-04 00:00: 00 No TRESIBA FLEXTOUCH 200U/ML PEN 2021-04 00:00: [address] Rajni T[facility] Dose Unknown 2021-04 2 00:00: [address] Rajni Taf[facility] IBUPROFEN 800MG 2021-04 00:00: [address] [facility] Dose Unknown 2021-04 00:00: [address] [facility] TAKE 1 TABLET DAILY. 2021-04 2 00:00: 00 08-25 00:00 :[address] [facility] NYSTATIN [id number] OIN 2021-04 2 00:00: 00 No Dose Unknown 2021-04 2 00:00: [address] [facility] Dose Unknown 2021-04 2 00:00: 00 No Dose Unknown 2021-04 00:00: [address] Rajni T[facility] GABAPENTIN 400MG CAP 2021-04 00:00: 00 No GABAPENTIN 400MG CAP 2021-04 00:00: [address] [facility] APPLY 4 GRAMS TOPICALLY 4 TIMES A DAY 2021-04 00:00: [address] [facility] TRESIBA FLEX 200U/ML PEN 2021-04 00:00: [address] [facility] TAKE 1 TABLET BY MOUTH EVERY MORNING 2021-04 00:00: 00 08-25 00:00 :[address] [facility] TAKE 1 TABLET BY MOUTH EVERY 8 HOURS 2021-04 00:00: [address] Rajni [facility] TAKE 1 TABLET DAILY. 2021-04 00:00: 00 08-25 00:00 :[address] [place] INJECT 80 UNITS DAILY 2021-04 00:00: 00 08-25 00:00 :[address] [facility] TAKE 1 TABLET AT BEDTIME. 2021-04 00:00: 00 No TAKE 1 TABLET AT BEDTIME. 2021-04 00:00: [address] Rajni Michelet INJECT 1.8 MG UNDER THE SKIN NIGHTLY. 2021-04 00:00: 00 No INJECT 1.8 MG UNDER THE SKIN NIGHTLY. 2021-04 00:00: 00 No INJECT 1.2 MG SUBCUTANEOU SLY EVERY DAY 2021-04 00:00: [address] [facility] COMBIVENT RESPIMAT INH 2021-04 00:00: [address] Rajni Michelet USE 1 VIAL IN NEBULIZER EVERY 6 HOURS NEEDED. 2021-04 00:00: [address] Rajni [facility] QUETIAPINE 400MG 2021-04 00:00: [address] Rajni [facility] TAKE 1 TABLET BY MOUTH EVERY 6 HOURS WITH FOOD 2021-04 00:00: [address] [facility] TAKE 1 CAPSULE WEEKLY. 2021-04 00:00: 00 08-25 00:00 :[id number] Rajni T[facility] TAKE 2 TABLETS AT BEDTIME. 2021-04 00:00: 00 08-25 00:00 :[address] [facility] TAKE 1 CAPSULE TWICE DAILY. 2021-04 00:00: 00 08-25 00:00 :[address] [facility] TAKE 1 TABLET TWICE DAILY. 2021-04 00:00: 00 08-25 00:00 :[address] [place] TAKE 1 CAPSULE AT BEDTIME. 2021-04 00:00: 00 08-25 00:00 :[address] [facility] TAKE 1 TABLET TWICE DAILY. 2021-04 00:00: 00 08-25 00:00 :[address] [facility] TAKE 1 TABLET DAILY. 2021-04 00:00: 00 08-25 00:00 :[address] [place] TAKE 1 TABLET BY MOUTH DAILY 2021-04 00:00: 00 08-25 00:00 :[address] [facility] Dose Unknown 2021-04 00:00: 00 No Dose Unknown 2021-04 00:00: 00 No Dose Unknown 2021-04 00:00: [address] [facility] APAP/CODEIN E #3 2021-04 0- 00:00: [address] [facility] APAP/CODEIN E #3 2021-04 0-13 00:00: [address] [facility] Dose Unknown 2021-04 0-03 00:00: 00 No AMITRIPTYLI NE HYDROCHLORI 50MG TAB 2021-04 0-03 00:00: 00 No Dose Unknown 2021-04 0-03 00:00: 00 No AMITRIPTYLI NE HYDROCHLORI 50MG TAB 2021-04 0-03 00:00: 00 No Dose Unknown 2021-04 0-03 00:00: [address] [facility] Dose Unknown 2021-04 0-03 00:00: [address] [facility] APAP/CODEIN E #3 9- 00:00: [address] [place] PANTOPRAZOL E SODIUM 40MG TAB 2021-0 9- 00:00: 00 No PANTOPRAZOL E SODIUM 40MG TAB 01-14 00:00: 00 No PANTOPRAZOL E SODIUM 40MG TAB 01-14 00:00: 00 No PANTOPRAZOL E SODIUM 40MG TAB 01-14 00:00: [address] [facility] INJECT UNITS BELOW THE SKIN THREE TIMES A DAY PER SLIDING SCALE (MAX DOSE 25 UNITS). 01-13 00:00: 00 No INJECT UNITS BELOW THE SKIN THREE TIMES A DAY PER SLIDING SCALE (MAX DOSE 25 UNITS). 01-13 00:00: 00 No INJECT UNITS BELOW THE SKIN THREE TIMES A DAY PER SLIDING SCALE (MAX DOSE 25 UNITS). 01-13 00:00: 00 No INJECT UNITS BELOW THE SKIN THREE TIMES A DAY PER SLIDING SCALE (MAX DOSE 25 UNITS). 01-13 00:00: [address] [facility] TAKE ONE (1) TABLET(S) BY MOUTH ONCE A DAY. 01-02 00:00: 00 No TAKE ONE (1) TABLET(S) BY MOUTH ONCE A DAY. 01-02 00:00: 00 No TAKE ONE (1) TABLET(S) BY MOUTH ONCE A DAY. 01-02 00:00: 00 No TAKE ONE (1) TABLET(S) BY MOUTH ONCE A DAY. 01-02 00:00: 00 08-25 00:00 :[address] [facility] VICTOZA 18MG/3ML PEN 12-04 00:00: [id number] [facility] GABAPENTIN 400MG 12-04 00:00: [id number] [facility] MONTELUKAST SODIUM 10MG 18 00:00: [id number] [facility] USE 1 VIAL IN NEBULIZER EVERY 6 HOURS NEEDED. 12-03 00:00: 00 No USE 1 VIAL IN NEBULIZER EVERY 6 HOURS NEEDED. 12-03 00:00: 00 No USE 1 VIAL IN NEBULIZER EVERY 6 HOURS NEEDED. 12-03 00:00: 00 No [id number] USE 1 VIAL IN NEBULIZER EVERY 6 HOURS NEEDED. 12-03 00:00: 00 No [id number] USE 1 VIAL IN NEBULIZER EVERY 6 HOURS NEEDED. 12-03 00:00: 00 No USE 1 VIAL IN NEBULIZER EVERY 6 HOURS NEEDED. 12-03 00:00: [address] [facility] INJECT 1.2 MG SUBCUTANEOU SLY EVERY DAY 12-03 00:00: [address] [facility] TAKE 1 TABLET DAILY. 12-03 00:00: [address] [facility] INHALE 2 PUFFS BY MOUTH DAILY 12-03 00:00: 00 08-25 00:00 :[address] [facility] TAKE ONE (1) TABLET(S) BY MOUTH ONCE A DAY. 12-02 00:00: 00 No 2 INHALE TWO (2) PUFF(S) BY MOUTH DAILY. 12-02 00:00: 00 No TAKE ONE (1) TABLET(S) BY MOUTH ONCE A DAY. 12-02 00:00: 00 No 2 INHALE TWO (2) PUFF(S) BY MOUTH DAILY. 12-02 00:00: 00 No TAKE ONE (1) TABLET(S) BY MOUTH ONCE A DAY. 12-02 00:00: 00 No 2 INHALE TWO (2) PUFF(S) BY MOUTH DAILY. 12-02 00:00: 00 No TAKE ONE (1) TABLET(S) BY MOUTH ONCE A DAY. 12-02 00:00: 00 No 2 INHALE TWO (2) PUFF(S) BY MOUTH DAILY. 12-02 00:00: 00 No TAKE ONE (1) TABLET(S) BY MOUTH ONCE A DAY. 12-02 00:00: 00 No 2 INHALE TWO (2) PUFF(S) BY MOUTH DAILY. 12-02 00:00: 00 No TAKE ONE (1) TABLET(S) BY MOUTH ONCE A DAY. 12-02 00:00: [address] [facility] INHALE TWO (2) PUFF(S) BY MOUTH DAILY. 12-02 00:00: [address] [facility] Dose Unknown 11-14 00:00: 00 No 100 Dose Unknown 11-14 00:00: 00 No 100 Dose Unknown 11-14 00:00: 00 No 100 Dose Unknown 11-14 00:00: 00 No 100 Dose Unknown 11-14 00:00: 00 No 100 Dose Unknown 11-14 00:00: [address] [facility] [place] estradiol 1 mg tablet 10-29 00:00: 00 No 1mg Dose Unknown 10-29 00:00: 00 No 4 INHALE TWO (2) PUFF(S) BY MOUTH DAILY. 10-29 00:00: 00 No TAKE 1 TABLET BY MOUTH TWICE A DAY 10-29 00:00: 00 No 75 INJECT UNDER THE SKIN THREE TIMES A DAY DIRECTED PER SLIDING SCALE. MAX DOSE 25 UNITS. 10-29 00:00: 00 No &lt 10-29 00:00: 00 No 40 estradiol 1 mg tablet 10-29 00:00: 00 No 1mg Dose Unknown 10-29 00:00: 00 No 4 INHALE TWO (2) PUFF(S) BY MOUTH DAILY. 10-29 00:00: 00 No TAKE 1 TABLET BY MOUTH TWICE A DAY 10-29 00:00: 00 No 75 INJECT UNDER THE SKIN THREE TIMES A DAY DIRECTED PER SLIDING SCALE. MAX DOSE 25 UNITS. 10-29 00:00: 00 No &lt 10-29 00:00: 00 No 40 estradiol 1 mg tablet 10-29 00:00: 00 No 1mg Dose Unknown 10-29 00:00: 00 No 4 INHALE TWO (2) PUFF(S) BY MOUTH DAILY. 10-29 00:00: 00 No TAKE 1 TABLET BY MOUTH TWICE A DAY 10-29 00:00: 00 No 75 INJECT UNDER THE SKIN THREE TIMES A DAY DIRECTED PER SLIDING SCALE. MAX DOSE 25 UNITS. 10-29 00:00: 00 No &lt 10-29 00:00: 00 No 40 estradiol 1 mg tablet 10-29 00:00: 00 No 1mg Dose Unknown 10-29 00:00: 00 No 4 INHALE TWO (2) PUFF(S) BY MOUTH DAILY. 10-29 00:00: 00 No TAKE 1 TABLET BY MOUTH TWICE A DAY 10-29 00:00: 00 No 75 INJECT UNDER THE SKIN THREE TIMES A DAY DIRECTED PER SLIDING SCALE. MAX DOSE 25 UNITS. 10-29 00:00: 00 No &lt 10-29 00:00: 00 No 40 estradiol 1 mg tablet 10-29 00:00: 00 No 1mg Dose Unknown 10-29 00:00: 00 No 4 INHALE TWO (2) PUFF(S) BY MOUTH DAILY. 10-29 00:00: 00 No TAKE 1 TABLET BY MOUTH TWICE A DAY 10-29 00:00: 00 No 75 INJECT UNDER THE SKIN THREE TIMES A DAY DIRECTED PER SLIDING SCALE. MAX DOSE 25 UNITS. 10-29 00:00: 00 No &lt 10-29 00:00: 00 No 40 Dose Unknown 10-29 00:00: [address] [facility] Dose Unknown 10-29 00:00: [address] [facility] INHALE TWO (2) PUFF(S) BY MOUTH DAILY. 10-29 00:00: [address] [facility] TAKE 1 TABLET BY MOUTH TWICE A DAY 10-29 00:00: [address] [facility] INJECT UNDER THE SKIN THREE TIMES A DAY DIRECTED PER SLIDING SCALE. MAX DOSE 25 UNITS. 10-29 00:00: [address] [facility] &lt 10-29 00:00: [address] [facility] quetiapine 400 mg tablet 10-09 00:00: 00 No 2mg estradiol 1 mg tablet 10-09 00:00: 00 No 1mg &lt 10-09 00:00: 00 No &lt 10-09 00:00: 00 No Dose Unknown 10-09 00:00: 00 No estradiol 1 mg tablet 10-09 00:00: 00 No 1mg &lt 2022-0 10-09 00:00: 00 No &lt 2022-0 10-09 00:00: 00 No quetiapine 400 mg tablet 2-0 10-09 00:00: 00 No 2mg estradiol 1 mg tablet 2-0 10-09 00:00: 00 No 1mg &lt 2022-0 10-09 00:00: 00 No &lt 2022-0 10-09 00:00: 00 No quetiapine 400 mg tablet 2021-0 10-09 00:00: 00 No 2mg estradiol 1 mg tablet 0 10-09 00:00: 00 No 1mg &lt 2022-0 10-09 00:00: 00 No &lt 2022-0 10-09 00:00: 00 No quetiapine 400 mg tablet 2021-0 10-09 00:00: 00 No 2mg estradiol 1 mg tablet 2021-0 10-09 00:00: 00 No 1mg &lt 2022-0 10-09 00:00: 00 No &lt 2022-0 10-09 00:00: 00 No estradiol 1 mg tablet 0 10-09 00:00: [address] [facility] Dose Unknown 2021-0 10-09 00:00: [address] [place] &lt 2022-0 10-09 00:00: [address] [place] &lt 2022-0 10-09 00:00: [address] [place] &lt 2022-0 09-23 00:00: 00 No &lt 2022-0 09-23 00:00: 00 No &lt 2022-0 09-23 00:00: 00 No &lt 2022-0 09-23 00:00: 00 No &lt 2022-0 09-23 00:00: 00 No &lt 2022-0 09-23 00:00: [address] [facility] levofloxaci n 500 mg tablet 0 09-02 00:00: 00 No 1mg terbinafine HCl 250 mg tablet 0 09-02 00:00: 00 No mg ketorolac 10 mg tablet 2021-0 09-02 00:00: 00 No 1mg doxycycline monohydrate 100 mg capsule 0 09-02 00:00: 00 No 1mg levofloxaci n 500 mg tablet 0 -17 00:00: 00 No 1mg terbinafine HCl 250 mg tablet 0 -17 00:00: 00 No mg ketorolac 10 mg tablet 0 09-02 00:00: 00 No 1mg doxycycline monohydrate 100 mg capsule 0 - 00:00: 00 No 1mg levofloxaci n 500 mg tablet 0 09-02 00:00: 00 No 1mg terbinafine HCl 250 mg tablet 0 09-02 00:00: 00 No mg ketorolac 10 mg tablet 0 09-02 00:00: 00 No 1mg doxycycline monohydrate 100 mg capsule 0 09-02 00:00: 00 No 1mg levofloxaci n 500 mg tablet 0 09-02 00:00: 00 No 1mg terbinafine HCl 250 mg tablet 0 09-02 00:00: 00 No mg ketorolac 10 mg tablet 0 09-02 00:00: 00 No 1mg doxycycline monohydrate 100 mg capsule 0 09-02 00:00: 00 No 1mg levofloxaci n 500 mg tablet 0 09-02 00:00: 00 No 1mg terbinafine HCl 250 mg tablet 0 09-02 00:00: 00 No mg ketorolac 10 mg tablet 0 09-02 00:00: 00 No 1mg doxycycline monohydrate 100 mg capsule 0 09-02 00:00: 00 No 1mg TAKE 1 TABLET DAILY. 0 09-02 00:00: [address] [facility] levofloxaci n 500 mg tablet 0 09-02 00:00: [address] [facility] ketorolac 10 mg tablet 0 -17 00:00: [address] [facility] doxycycline monohydrate 100 mg capsule 0 -17 00:00: [address] [facility] levofloxaci n 500 mg tablet 2021-0 - 00:00: 00 No 1mg ketorolac 10 mg tablet 2021-0 - 00:00: 00 No 1mg doxycycline monohydrate 100 mg capsule 2022-0 5- 00:00: 00 No 1mg levofloxaci n 500 mg tablet 2-0 5- 00:00: 00 No 1mg ketorolac 10 mg tablet 2-0 5-03 00:00: 00 No 1mg doxycycline monohydrate 100 mg capsule 2-0 5- 00:00: 00 No 1mg levofloxaci n 500 mg tablet 2-0 5- 00:00: 00 No 1mg ketorolac 10 mg tablet 2-0 5- 00:00: 00 No 1mg doxycycline monohydrate 100 mg capsule 2-0 5- 00:00: 00 No 1mg levofloxaci n 500 mg tablet 2-0 5- 00:00: 00 No 1mg ketorolac 10 mg tablet 2-0 5- 00:00: 00 No 1mg doxycycline monohydrate 100 mg capsule 2-0 5- 00:00: 00 No 1mg levofloxaci n 500 mg tablet 2-0 5- 00:00: 00 No 1mg ketorolac 10 mg tablet 2-0 5- 00:00: 00 No 1mg doxycycline monohydrate 100 mg capsule 2-0 5- 00:00: 00 No 1mg levofloxaci n 500 mg tablet 2-0 5- 00:00: [address] F [facility]he[facility] ketorolac 10 mg tablet 2-0 5- 00:00: [address] [facility] doxycycline monohydrate 100 mg capsule 2-0 5- 00:00: [address] Rajni [facility] Dose Unknown 2-0 4-27 00:00: 00 No Dose Unknown 2-0 4-27 00:00: 00 No Dose Unknown 2-0 4-27 00:00: 00 No Dose Unknown 2-0 4-27 00:00: 00 No Dose Unknown 2-0 4-27 00:00: 00 No Dose Unknown 2-0 4-27 00:00: [address] Rajni Michelet levofloxaci n 500 mg tablet 2-0 4-26 00:00: 00 No 1mg promethazin e 25 mg tablet 2-0 4-26 00:00: 00 No 1mg Dose Unknown 0 08-12 00:00: 00 No doxycycline monohydrate 100 mg capsule 0 08-12 00:00: 00 No 1mg levofloxaci n 500 mg tablet 08-12 00:00: 00 No 1mg promethazin e 25 mg tablet 08-12 00:00: 00 No 1mg Dose Unknown 08-12 00:00: 00 No doxycycline monohydrate 100 mg capsule 0 08-12 00:00: 00 No 1mg levofloxaci n 500 mg tablet 08-12 00:00: 00 No 1mg promethazin e 25 mg tablet 08-12 00:00: 00 No 1mg Dose Unknown 08-12 00:00: 00 No doxycycline monohydrate 100 mg capsule 08-12 00:00: 00 No 1mg levofloxaci n 500 mg tablet 08-12 00:00: 00 No 1mg promethazin e 25 mg tablet 08-12 00:00: 00 No 1mg Dose Unknown 08-12 00:00: 00 No doxycycline monohydrate 100 mg capsule 08-12 00:00: 00 No 1mg levofloxaci n 500 mg tablet 08-12 00:00: 00 No 1mg promethazin e 25 mg tablet 08-12 00:00: 00 No 1mg Dose Unknown 08-12 00:00: 00 No doxycycline monohydrate 100 mg capsule 08-12 00:00: 00 No 1mg promethazin e 25 mg tablet 08-12 00:00: [address] [facility] Dose Unknown 08-12 00:00: [address] [facility] Dose Unknown 08-12 00:00: [address] [facility] doxycycline monohydrate 100 mg capsule 08-12 00:00: [address] [facility] indomethaci n ER 75 mg capsule,ext ended release 2021-0 08-09 00:00: 00 No 1mg indomethaci n ER 75 mg capsule,ext ended release 0 08-09 00:00: 00 No 1mg indomethaci n ER 75 mg capsule,ext ended release 2-0 4-23 00:00: 00 No 1mg indomethaci n ER 75 mg capsule,ext ended release 2-0 4-23 00:00: 00 No 1mg indomethaci n ER 75 mg capsule,ext ended release 2-0 4 00:00: 00 No 1mg indomethaci n ER 75 mg capsule,ext ended release 2-0 4-23 00:00: [address] [facility] Dose Unknown 2021-0 4-19 00:00: 00 No ondansetron 4 mg disintegrat ing tablet 2-0 4-19 00:00: 00 No 1mg Dose Unknown 2-0 4-19 00:00: 00 No Dose Unknown 2-0 4-19 00:00: 00 No Dose Unknown 2-0 4-19 00:00: 00 No ondansetron 4 mg disintegrat ing tablet 2-0 4-19 00:00: 00 No 1mg Dose Unknown 2-0 4-19 00:00: 00 No Dose Unknown 2-0 4-19 00:00: 00 No Dose Unknown 2-0 4-19 00:00: 00 No ondansetron 4 mg disintegrat ing tablet 2-0 4-19 00:00: 00 No 1mg Dose Unknown 2-0 4-19 00:00: 00 No Dose Unknown 2-0 4-19 00:00: 00 No Dose Unknown 2-0 4-19 00:00: 00 No ondansetron 4 mg disintegrat ing tablet 2-0 4-19 00:00: 00 No 1mg Dose Unknown 2-0 4-19 00:00: 00 No Dose Unknown 2-0 4-19 00:00: 00 No Dose Unknown 2-0 4-19 00:00: 00 No ondansetron 4 mg disintegrat ing tablet 2-0 4-19 00:00: 00 No 1mg Dose Unknown 2-0 4-19 00:00: 00 No Dose Unknown 2022-0 4-19 00:00: 00 No Dose Unknown 2-0 4-19 00:00: [address] [facility] ondansetron 4 mg disintegrat ing tablet 2-0 4-19 00:00: [address] [facility] Dose Unknown 0 4-19 00:00: [address] [facility] Dose Unknown 0 -19 00:00: [address] [facility] Dose Unknown 0 -19 00:00: [address] [facility] Dose Unknown 0 4-13 00:00: 00 No Dose Unknown 2021-0 4-13 00:00: 00 No Dose Unknown 0 4-13 00:00: 00 No Dose Unknown 0 4-13 00:00: 00 No Dose Unknown 0 4-13 00:00: 00 No Dose Unknown 0 4-13 00:00: 00 No Dose Unknown 0 4-13 00:00: 00 No Dose Unknown 0 4-13 00:00: 00 No Dose Unknown 0 4-13 00:00: 00 No Dose Unknown 0 4-13 00:00: 00 No Dose Unknown 0 4- 00:00: [address] [facility] Dose Unknown 0 07-30 00:00: [address] [facility] Dose Unknown 0 412 00:00: 00 No Dose Unknown 0 4-12 00:00: 00 No Dose Unknown 0 4-12 00:00: 00 No Victoza 2-Pepe 0.6 mg/0.1 mL (18 mg/3 mL) subcutaneou s pen injector 0 -12 00:00: 00 No (18 mg/3 mL) Tresiba FlexTouch U-200 insulin 200 unit/mL (3 mL) subcutaneou s pen 0 -12 00:00: 00 No (3 mL) Novolog Flexpen U-100 Insulin aspart 100 unit/mL (3 mL) subcutaneou s 2021-0 -12 00:00: 00 No (3 mL) mupirocin 2 % topical ointment 0 4-12 00:00: 00 No 1% montelukast 10 mg tablet 2021-0 4-12 00:00: 00 No 1mg clonidine HCl 0.2 mg tablet 0 4-12 00:00: 00 No 1mg quetiapine 400 mg tablet 2021-0 4-12 00:00: 00 No 2mg pantoprazol e 40 mg tablet,mellisa yed release 0 4-12 00:00: 00 No 1mg metoclopram chrissy 10 mg tablet 0 4-12 00:00: 00 No 1mg Dose Unknown 0 4-12 00:00: 00 No amitriptyli ne 50 mg tablet 0 4-12 00:00: 00 No 1mg Dose Unknown 0 4-12 00:00: 00 No Combivent Respimat 20 mcg-100 mcg/actuati on solution for inhalation 0 4-12 00:00: 00 No 2mcg/ac tuation duloxetine 30 mg capsule,del ayed release 0 4-12 00:00: 00 No 1mg Dose Unknown 2021-0 4-12 00:00: 00 No Dose Unknown 2021-0 4-12 00:00: 00 No Dose Unknown 2021-0 4-12 00:00: 00 No Dose Unknown 2021-0 4-12 00:00: 00 No Dose Unknown 2021-0 4-12 00:00: 00 No Dose Unknown 2021-0 4-12 00:00: 00 No Dose Unknown 2021-0 4-12 00:00: 00 No Dose Unknown 2021-0 4-12 00:00: 00 No Dose Unknown 2021-0 4-12 00:00: 00 No Dose Unknown 2021-0 4-12 00:00: 00 No Dose Unknown 2021-0 4-12 00:00: 00 No Dose Unknown 2021-0 4-12 00:00: 00 No Dose Unknown 2021-0 4-12 00:00: 00 No Dose Unknown 2021-0 4-12 00:00: 00 No Dose Unknown 2021-0 4-12 00:00: 00 No Dose Unknown 2021-0 4-12 00:00: 00 No Dose Unknown 2021-0 4-12 00:00: 00 No Dose Unknown 2021-0 4-12 00:00: 00 No Tresiba FlexTouch U-200 insulin 200 unit/mL (3 mL) subcutaneou s pen 2021-0 4-12 00:00: 00 No (3 mL) Novolog Flexpen U-100 Insulin aspart 100 unit/mL (3 mL) subcutaneou s 0 4-12 00:00: 00 No (3 mL) mupirocin 2 % topical ointment 0 4-12 00:00: 00 No 1% montelukast 10 mg tablet 0 4-12 00:00: 00 No 1mg clonidine HCl 0.2 mg tablet 0 4-12 00:00: 00 No 1mg quetiapine 400 mg tablet 0 4-12 00:00: 00 No 2mg pantoprazol e 40 mg tablet,mellisa yed release 0 4-12 00:00: 00 No 1mg metoclopram chrissy 10 mg tablet 0 4-12 00:00: 00 No 1mg Dose Unknown 0 4-12 00:00: 00 No amitriptyli ne 50 mg tablet 0 4-12 00:00: 00 No 1mg Dose Unknown 0 4-12 00:00: 00 No Dose Unknown 0 4-12 00:00: 00 No duloxetine 30 mg capsule,del ayed release 0 4-12 00:00: 00 No 1mg Dose Unknown 0 4-12 00:00: 00 No Dose Unknown 0 4-12 00:00: 00 No Dose Unknown 0 4-12 00:00: 00 No Dose Unknown 0 4-12 00:00: 00 No Dose Unknown 0 4-12 00:00: 00 No Dose Unknown 0 4-12 00:00: 00 No Dose Unknown 0 4-12 00:00: 00 No Dose Unknown 0 4-12 00:00: 00 No Dose Unknown 0 4-12 00:00: 00 No Dose Unknown 0 4-12 00:00: 00 No Dose Unknown 0 4-12 00:00: 00 No Dose Unknown 0 4-12 00:00: 00 No Dose Unknown 0 4-12 00:00: 00 No Dose Unknown 0 4-12 00:00: 00 No Dose Unknown 0 4-12 00:00: 00 No Dose Unknown 07-29 00:00: 00 No Dose Unknown 07-29 00:00: 00 No Dose Unknown 07-29 00:00: 00 No Dose Unknown 07-29 00:00: 00 No Dose Unknown 07-29 00:00: 00 No Dose Unknown 07-29 00:00: 00 No Dose Unknown 07-29 00:00: 00 No Dose Unknown 07-29 00:00: 00 No Dose Unknown 07-29 00:00: 00 No Tresiba FlexTouch U-200 insulin 200 unit/mL (3 mL) subcutaneou s pen 07-29 00:00: 00 No (3 mL) Novolog Flexpen U-100 Insulin aspart 100 unit/mL (3 mL) subcutaneou s 07-29 00:00: 00 No (3 mL) montelukast 10 mg tablet 07-29 00:00: 00 No 1mg clonidine HCl 0.2 mg tablet 07-29 00:00: 00 No 1mg quetiapine 400 mg tablet 07-29 00:00: 00 No 2mg pantoprazol e 40 mg tablet,mellisa yed release 07-29 00:00: 00 No 1mg metoclopram chrissy 10 mg tablet 07-29 00:00: 00 No 1mg buspirone 30 mg tablet 07-29 00:00: 00 No 1mg amitriptyli ne 50 mg tablet 07-29 00:00: 00 No 1mg hydroxyzine HCl 50 mg tablet 07-29 00:00: 00 No 1mg Combivent Respimat 20 mcg-100 mcg/actuati on solution for inhalation 07-29 00:00: 00 No 2mcg/ac tuation duloxetine 30 mg capsule,del ayed release 07-29 00:00: 00 No 1mg Dose Unknown 07-29 00:00: 00 No Dose Unknown 07-29 00:00: 00 No Dose Unknown 07-29 00:00: 00 No Dose Unknown 07-29 00:00: 00 No Dose Unknown 07-29 00:00: 00 No Dose Unknown 07-29 00:00: 00 No Dose Unknown 07-29 00:00: 00 No Dose Unknown 07-29 00:00: 00 No Dose Unknown 07-29 00:00: 00 No Dose Unknown 07-29 00:00: 00 No Dose Unknown 07-29 00:00: 00 No Dose Unknown 07-29 00:00: 00 No Victoza 2-Pepe 0.6 mg/0.1 mL (18 mg/3 mL) subcutane s pen injector 07-29 00:00: 00 No (18 mg/3 mL) Tresiba FlexTouch U-200 insulin 200 unit/mL (3 mL) subcutane s pen 07-29 00:00: 00 No (3 mL) Novolog Flexpen U-100 Insulin aspart 100 unit/mL (3 mL) subcutaneou s 07-29 00:00: 00 No (3 mL) mupirocin 2 % topical ointment 07-29 00:00: 00 No 1% montelukast 10 mg tablet 07-29 00:00: 00 No 1mg clonidine HCl 0.2 mg tablet 07-29 00:00: 00 No 1mg quetiapine 400 mg tablet 07-29 00:00: 00 No 2mg pantoprazol e 40 mg tablet,mellisa yed release 07-29 00:00: 00 No 1mg metoclopram chrissy 10 mg tablet 07-29 00:00: 00 No 1mg buspirone 30 mg tablet 07-29 00:00: 00 No 1mg amitriptyli ne 50 mg tablet 07-29 00:00: 00 No 1mg hydroxyzine HCl 50 mg tablet 07-29 00:00: 00 No 1mg Combivent Respimat 20 mcg-100 mcg/actuati on solution for inhalation 2022-0 4-12 00:00: 00 No 2mcg/ac tuation duloxetine 30 mg capsule,del ayed release 2021-0 4-12 00:00: 00 No 1mg Dose Unknown 2021-0 4-12 00:00: 00 No gabapentin 400 mg capsule 2021-0 4-12 00:00: 00 No 1mg Dose Unknown 2021-0 4-12 00:00: 00 No Dose Unknown 2021-0 4-12 00:00: 00 No Dose Unknown 2021-0 4-12 00:00: 00 No Dose Unknown 2021-0 4-12 00:00: 00 No Dose Unknown 2021-0 4-12 00:00: 00 No Dose Unknown 2021-0 4-12 00:00: 00 No Dose Unknown 2021-0 4-12 00:00: 00 No Dose Unknown 2021-0 4-12 00:00: 00 No Dose Unknown 2021-0 4-12 00:00: [address] [facility] Dose Unknown 2021-0 4-12 00:00: [address] [facility] Dose Unknown 2021-0 4-12 00:00: [address] [facility] Dose Unknown 2021-0 4-12 00:00: [address] [facility] quetiapine 400 mg tablet 2021-0 4-12 00:00: [address] [facility] pantoprazol e 40 mg tablet,mellisa yed release 0 -12 00:00: [address] [facility] Dose Unknown 2021-0 4-12 00:00: [address] Rajni T[facility] Dose Unknown 2021-0 4-12 00:00: [address] Rajni T[facility] Dose Unknown 2021-0 4-12 00:00: [address] [facility] Dose Unknown 2-0 4-12 00:00: [address] [facility] Dose Unknown 2-0 4-12 00:00: [address] Rajni Michelet Dose Unknown 2-0 4-12 00:00: 00 Yes Laneclement Tafoya Dose Unknown 2-0 4-12 00:00: [address] [facility] TAKE 1 CAPSULE TWICE DAILY. 2021-0 4-12 00:00: [address] [facility] duloxetine 30 mg capsule,del ayed release 2021-0 4-12 00:00: [address] [facility] Dose Unknown 2022-0 4-12 00:00: [address] F Michelet Dose Unknown 2022-0 4-12 00:00: [address] F [place]he[place] Dose Unknown 2022-0 4-12 00:00: [address] F [place] Dose Unknown 2022-0 4-12 00:00: [address] F [facility] Dose Unknown 2022-0 4-12 00:00: [address] F Miche[place] Dose Unknown 2022-0 4-12 00:00: [address] F [place] Dose Unknown 2022-0 4-12 00:00: [address] F [place]he[place] Dose Unknown 2022-0 4-12 00:00: [address] F Michelet Dose Unknown 2022-0 4-12 00:00: [address] F Michelet Dose Unknown 2022-0 4-12 00:00: [address] [facility] TAKE ONE (1) TABLET(S) BY MOUTH TWICE A DAY FOR 10 DAYS. 2-0 4-06 00:00: [address] [facility] TAKE ONE (1) TABLET(S) BY MOUTH EVERY SIX HOURS NEEDED FOR PAIN. 2-0 3-22 00:00: [address] [facility] Dose Unknown 2020-1 2-30 00:00: 00 No Dose Unknown 1-1 2-30 00:00: 00 No Dose Unknown 1-1 2- 00:00: 00 No Dose Unknown 1-1 2- 00:00: 00 No Dose Unknown 1-1 2-30 00:00: 00 No Dose Unknown 1-1 2-30 00:00: 00 No Dose Unknown 1-1 2-30 00:00: 00 No Dose Unknown 1-1 2-30 00:00: 00 No Dose Unknown 1-1 2-30 00:00: 00 No Dose Unknown 1-1 2-30 00:00: 00 No Dose Unknown 1-1 2-30 00:00: 00 No Dose Unknown 1-1 2-30 00:00: 00 No Dose Unknown 1-1 2-30 00:00: 00 No Dose Unknown 1-1 2-30 00:00: 00 No Dose Unknown 1-1 2-30 00:00: 00 No Dose Unknown 2021-1 2-30 00:00: 00 No Dose Unknown 2021-1 2-30 00:00: 00 No Dose Unknown 2021-1 2-30 00:00: 00 No Dose Unknown 2021-1 2-30 00:00: 00 No Dose Unknown 2021-1 2-30 00:00: 00 No Dose Unknown 2021-1 2-30 00:00: 00 No Dose Unknown 2021-1 2-30 00:00: 00 No Dose Unknown 2021-1 2-30 00:00: 00 No Dose Unknown 2021-1 2-30 00:00: 00 No Dose Unknown 2021-1 2-30 00:00: 00 No Dose Unknown 2021-1 2-30 00:00: 00 No Dose Unknown 2021-1 2-30 00:00: 00 No Dose Unknown 1-1 2-30 00:00: 00 No Dose Unknown 2021-1 2-30 00:00: 00 No Dose Unknown 2021-1 2-30 00:00: 00 No Dose Unknown 1-1 2-30 00:00: 00 No Dose Unknown 1-1 2-30 00:00: 00 No Dose Unknown 2021-1 2-30 00:00: [address] F Michelet Dose Unknown 2021-1 2-30 00:00: [address] F Michelet Dose Unknown 2021-1 2-30 00:00: [address] F Michelet Dose Unknown 2021-1 2-30 00:00: [address] F Michelet Dose Unknown 2021-1 2-30 00:00: [address] F Michelet Dose Unknown 2021-1 2-30 00:00: [address] F Michelet Dose Unknown 2021-1 2-30 00:00: [address] F Michelet Dose Unknown 2021-1 2-30 00:00: [address] F Michelet Dose Unknown 2021-1 2- 00:00: 00 No Dose Unknown 2021-1 2-28 00:00: 00 No Dose Unknown 2021-1 2-28 00:00: 00 No Dose Unknown 2021-1 2-28 00:00: 00 No Dose Unknown 2021-1 2- 00:00: 00 No Dose Unknown 2021-1 2-28 00:00: 00 No Dose Unknown 2021-1 2-28 00:00: 00 No Dose Unknown 2020-04 00:00: 00 No Dose Unknown 2020-04 00:00: [address] [facility] Dose Unknown 2020-04 00:00: [address] [facility] buspirone 30 mg tablet 2020-04 00:00: 00 No 1mg metronidazo le 500 mg tablet 2020-04 00:00: 00 No 1mg Dose Unknown 2020-04 00:00: 00 No amitriptyli ne 50 mg tablet 2020-04 00:00: 00 No 1mg hydroxyzine HCl 50 mg tablet 2020-04 00:00: 00 No 1mg duloxetine 30 mg capsule,del ayed release 2020-04 00:00: 00 No 1mg buspirone 30 mg tablet 2020-04 00:00: 00 No 1mg metronidazo le 500 mg tablet 2020-04 00:00: 00 No 1mg Dose Unknown 2020-04 00:00: 00 No amitriptyli ne 50 mg tablet 2020-04 00:00: 00 No 1mg hydroxyzine HCl 50 mg tablet 2020-04 00:00: 00 No 1mg duloxetine 30 mg capsule,del ayed release 2020-04 00:00: 00 No 1mg buspirone 30 mg tablet 2020-04 00:00: 00 No 1mg metronidazo le 500 mg tablet 2020-04 00:00: 00 No 1mg Dose Unknown 2020-04 00:00: 00 No amitriptyli ne 50 mg tablet 2020-04 00:00: 00 No 1mg hydroxyzine HCl 50 mg tablet 2020-04 00:00: 00 No 1mg duloxetine 30 mg capsule,del ayed release 2020-04 00:00: 00 No 1mg buspirone 30 mg tablet 2020-04 00:00: 00 No 1mg metronidazo le 500 mg tablet 2020-04 00:00: 00 No 1mg Dose Unknown 2020-04 00:00: 00 No amitriptyli ne 50 mg tablet 2020-04 00:00: 00 No 1mg hydroxyzine HCl 50 mg tablet 2020-04 00:00: 00 No 1mg duloxetine 30 mg capsule,del ayed release 2020-04 00:00: 00 No 1mg buspirone 30 mg tablet 2020-04 00:00: [address] [facility] metronidazo le 500 mg tablet 2020-04 00:00: [address] [facility] Dose Unknown 2020-04 00:00: [address] [facility] amitriptyli ne 50 mg tablet 2020-04 00:00: [address] [facility] hydroxyzine HCl 50 mg tablet 2020-04 00:00: [address] [facility] duloxetine 30 mg capsule,del ayed release 2020-04 00:00: [address] [facility] ciprofloxac in 500 mg tablet 2020-04 00:00: 00 No 1mg dicyclomine 20 mg tablet 2020-04 00:00: 00 No 1mg ondansetron 8 mg disintegrat ing tablet 2020-04 00:00: 00 No 1mg ciprofloxac in 500 mg tablet 2020-04 00:00: 00 No 1mg dicyclomine 20 mg tablet 2020-04 00:00: 00 No 1mg ondansetron 8 mg disintegrat ing tablet 2020-04 00:00: 00 No 1mg ciprofloxac in 500 mg tablet 2020-04 00:00: 00 No 1mg dicyclomine 20 mg tablet 2020-04 00:00: 00 No 1mg ondansetron 8 mg disintegrat ing tablet 2020-04 00:00: 00 No 1mg ciprofloxac in 500 mg tablet 2020-04 00:00: 00 No 1mg dicyclomine 20 mg tablet 2020-04 00:00: 00 No 1mg ondansetron 8 mg disintegrat ing tablet 2020-04 00:00: 00 No 1mg TAKE 1 TABLET TWICE DAILY. 2020-04 00:00: [address] [facility] Dose Unknown 2020-04 00:00: [address] [facility] Dose Unknown 2020-04 00:00: [address] [facility] etodolac 400 mg tablet 2020-0418 00:00: 00 No 1mg etodolac 400 mg tablet 2020-0418 00:00: 00 No 1mg etodolac 400 mg tablet 2020-0418 00:00: 00 No 1mg etodolac 400 mg tablet 2020-0418 00:00: 00 No 1mg Dose Unknown 2020-04 00:00: [address] [facility] lidocaine 5 % topical patch 2020-04 0-05 00:00: 00 No 1% Dose Unknown 2020-04 0-05 00:00: 00 No Dose Unknown 2020-04 0-05 00:00: 00 No indomethaci n 50 mg capsule 2020-04 0-05 00:00: 00 No 1mg Bromfed DM 2 mg-30 mg-10 mg/5 mL oral syrup 2020-04 0-05 00:00: 00 No 5mg/5 mL lidocaine 5 % topical patch 2020-04 0-05 00:00: 00 No 1% Dose Unknown 2020-04 0-05 00:00: 00 No Dose Unknown 2020-04 0-05 00:00: 00 No indomethaci n 50 mg capsule 2020-04 0-05 00:00: 00 No 1mg Bromfed DM 2 mg-30 mg-10 mg/5 mL oral syrup 2020-04 0-05 00:00: 00 No 5mg/5 mL lidocaine 5 % topical patch 2020-04 0-05 00:00: 00 No 1% buspirone 15 mg tablet 2020-04 0-05 00:00: 00 No 1mg hydroxyzine HCl 25 mg tablet 2020-04 0-05 00:00: 00 No 1mg indomethaci n 50 mg capsule 2020-04 0-05 00:00: 00 No 1mg Bromfed DM 2 mg-30 mg-10 mg/5 mL oral syrup 2020-04 00:00: 00 No 5mg/5 mL lidocaine 5 % topical patch 2020-04 00:00: 00 No 1% buspirone 15 mg tablet 2020-04 00:00: 00 No 1mg hydroxyzine HCl 25 mg tablet 2020-04 00:00: 00 No 1mg indomethaci n 50 mg capsule 2020-04 00:00: 00 No 1mg Bromfed DM 2 mg-30 mg-10 mg/5 mL oral syrup 2020-04 00:00: 00 No 5mg/5 mL Dose Unknown 2020-04 00:00: [address] [facility] Dose Unknown 2020-04 00:00: [address] [facility] Dose Unknown 2020-04 00:00: [address] [facility] indomethaci n 50 mg capsule 2020-04 00:00: [address] [facility] Dose Unknown 2020-04 00:00: [address] [facility] Novolog Flexpen U-100 Insulin aspart 100 unit/mL (3 mL) subcutaneou s 01-14 00:00: 00 No (3 mL) Combivent Respimat 20 mcg-100 mcg/actuati on solution for inhalation 01-14 00:00: 00 No 2mcg/ac tuation Victoza 2-Pepe 0.6 mg/0.1 mL (18 mg/3 mL) subcutaneou s pen injector 01-14 00:00: 00 No 6(18 mg/3 mL) clonidine HCl 0.2 mg tablet 01-14 00:00: 00 No 1mg pantoprazol e 40 mg tablet,mellisa yed release 01-14 00:00: 00 No 1mg Victoza 2-Pepe 0.6 mg/0.1 mL (18 mg/3 mL) subcutaneou s pen injector 01-14 00:00: 00 No (18 mg/3 mL) Novolog Flexpen U-100 Insulin aspart 100 unit/mL (3 mL) subcutaneou s 01-14 00:00: 00 No 1(3 mL) Tresiba FlexTouch U-200 insulin 200 unit/mL (3 mL) subcutaneou s pen 01-14 00:00: 00 No (3 mL) clonidine HCl 0.2 mg tablet 01-14 00:00: 00 No 1mg pantoprazol e 40 mg tablet,mellisa yed release 01-14 00:00: 00 No 1mg montelukast 10 mg tablet 01-14 00:00: 00 No 1mg Dose Unknown 01-14 00:00: 00 No metoclopram chrissy 10 mg tablet 01-14 00:00: 00 No 1mg Dose Unknown 01-14 00:00: 00 No hydrocodone 10 mg-acetamin ophen 300 mg tablet 01-14 00:00: 00 No 1mg Combivent Respimat 20 mcg-100 mcg/actuati on solution for inhalation 01-14 00:00: 00 No 2mcg/ac tuation montelukast 10 mg tablet 01-14 00:00: 00 No 1mg quetiapine 400 mg tablet 01-14 00:00: 00 No 2mg metoclopram chrissy 10 mg tablet 01-14 00:00: 00 No 1mg Xanax 2 mg tablet 01-14 00:00: 00 No 1mg hydrocodone 10 mg-acetamin ophen 300 mg tablet 01-14 00:00: 00 No 1mg Combivent Respimat 20 mcg-100 mcg/actuati on solution for inhalation 01-14 00:00: 00 No 2mcg/ac tuation Tresiba FlexTouch U-200 insulin 200 unit/mL (3 mL) subcutaneou s pen 01-14 00:00: 00 No (3 mL) Victoza 2-Pepe 0.6 mg/0.1 mL (18 mg/3 mL) subcutaneou s pen injector 01-14 00:00: 00 No (18 mg/3 mL) Novolog Flexpen U-100 Insulin aspart 100 unit/mL (3 mL) subcutaneou s 01-14 00:00: 00 No 1(3 mL) Tresiba FlexTouch U-200 insulin 200 unit/mL (3 mL) [facility] s pen 01-14 00:00: 00 No (3 mL) clonidine HCl 0.2 mg tablet 01-14 00:00: 00 No 1mg pantoprazol e 40 mg tablet,mellisa yed release 01-14 00:00: 00 No 1mg montelukast 10 mg tablet 01-14 00:00: 00 No 1mg quetiapine 400 mg tablet 01-14 00:00: 00 No 2mg metoclopram chrissy 10 mg tablet 01-14 00:00: 00 No 1mg Xanax 2 mg tablet 01-14 00:00: 00 No 1mg hydrocodone 10 mg-acetamin ophen 300 mg tablet 01-14 00:00: 00 No 1mg Combivent Respimat 20 mcg-100 mcg/actuati on solution for inhalation 01-14 00:00: 00 No 2mcg/ac tuation Victoza 2-Pepe 0.6 mg/0.1 mL (18 mg/3 mL) [facility] pen injector 01-14 00:00: 00 No (18 mg/3 mL) Novolog Flexpen U-100 Insulin aspart 100 unit/mL (3 mL) [facility] s 01-14 00:00: 00 No 1(3 mL) Tresiba FlexTouch U-200 insulin 200 unit/mL (3 mL) [facility] s pen 01-14 00:00: 00 No (3 mL) clonidine HCl 0.2 mg tablet 01-14 00:00: 00 No 1mg pantoprazol e 40 mg tablet,mellisa yed release 01-14 00:00: 00 No 1mg montelukast 10 mg tablet 01-14 00:00: 00 No 1mg quetiapine 400 mg tablet 01-14 00:00: 00 No 2mg metoclopram chrissy 10 mg tablet 01-14 00:00: 00 No 1mg Xanax 2 mg tablet 01-14 00:00: 00 No 1mg hydrocodone 10 mg-acetamin ophen 300 mg tablet 01-14 00:00: 00 No 1mg Victoza 2-Pepe 0.6 mg/0.1 mL (18 mg/3 mL) subcutaneou s pen injector 01-14 00:00: 00 Yes (18 mg/3 mL) Lane [facility] Tresiba FlexTouch U-200 insulin 200 unit/mL (3 mL) subcutaneou s pen 01-14 00:00: 00 Yes (3 mL) Lane [facility] Novolog Flexpen U-100 Insulin aspart 100 unit/mL (3 mL) subcutaneou s 01-14 00:00: 00 Yes (3 mL) Lane [facility] pantoprazol e 40 mg tablet,mellisa yed release 01-14 00:00: [address] [place] quetiapine 400 mg tablet 01-14 00:00: [address] [place] montelukast 10 mg tablet 01-14 00:00: [address] [facility] clonidine HCl 0.2 mg tablet 01-14 00:00: [address] [place] metoclopram chrissy 10 mg tablet 01-14 00:00: [address] [place] Dose Unknown 01-14 00:00: [address] [place] Dose Unknown 01-14 00:00: [address] [place] Combivent Respimat 20 mcg-100 mcg/actuati on solution for inhalation 01-14 00:00: 00 Yes 2mcg/ac tuation Lane T[facility] Tresiba FlexTouch U-200 insulin 200 unit/mL (3 mL) subcutaneou s pen 10-19 00:00: 00 No (3 mL) Tresiba FlexTouch U-200 insulin 200 unit/mL (3 mL) subcutaneou s pen 10-19 00:00: 00 No (3 mL) Tresiba FlexTouch U-200 insulin 200 unit/mL (3 mL) subcutaneou s pen 10-19 00:00: 00 No (3 mL) Tresiba FlexTouch U-200 insulin 200 unit/mL (3 mL) subcutaneou s pen 10-19 00:00: 00 No (3 mL) Dose Unknown 10-19 00:00: [address] [place] Victoza 3-Pepe 0.6 mg/0.1 mL (18 mg/3 mL) subcutaneou s pen injector 07-22 00:00: 00 No (18 mg/3 mL) Victoza 3-Pepe 0.6 mg/0.1 mL (18 mg/3 mL) subcutaneou s pen injector 07-22 00:00: 00 No (18 mg/3 mL) Victoza 3-Pepe 0.6 mg/0.1 mL (18 mg/3 mL) subcutaneou s pen injector 07-22 00:00: 00 No (18 mg/3 mL) Victoza 3-Pepe 0.6 mg/0.1 mL (18 mg/3 mL) subcutaneou s pen injector 07-22 00:00: 00 No (18 mg/3 mL) Dose Unknown 07-22 00:00: [address] [place] ascorbic acid, vitamin C, 500 mg tablet 06-16 00:00: 00 Yes [id number] 500mg Take 1 tablet by mouth daily. [facility] zinc sulfate 220 (50) mg capsule 06-16 00:00: 00 Yes [id number] 220mg Take 1 capsule by mouth daily. [facility] ALPRAZolam (XANAX) 2 mg tablet 06-15 21:18: 29 Yes 2mg Take 2 mg by mouth 3 (three) times daily as needed for Sleep. [facility] INSULIN DEGLUDEC (TRESIBA FLEXTOUCH U-100 SC) 06-15 21:18: 29 Yes 80U inject 80 Units under the skin every morning. [facility] pantoprazol e (PROTONIX) 20 mg EC tablet 06-15 21:18: 29 Yes 20mg Take 20 mg by mouth daily. [facility] insulin aspart prot/insuln asp (NOVOLOG MIX 70-30 SC) 06-15 21:18: 29 Yes inject under the skin. [facility] cloNIDine 0.2 mg tablet 06-15 21:18: 29 Yes .2mg Take 0.2 mg by mouth 3 (three) times daily. [facility] metoprolol succinate XL 50 mg 24 hr tablet 06-15 21:18: 29 Yes 50mg Take 50 mg by mouth 2 (two) times daily. [facility] QUEtiapine (SEROQUEL) 400 mg tablet 06-15 21:18: 29 Yes 800mg Take 800 mg by mouth at bedtime. [facility] ALPRAZolam (XANAX) 2 mg tablet 06-15 15:18: 29 Yes 2mg Take 2 mg by mouth 3 (three) times daily as needed for Sleep. [facility] INSULIN DEGLUDEC (TRESIBA FLEXTOUCH U-100 SC) 06-15 15:18: 29 Yes 80U inject 80 Units under the skin every morning. [facility] pantoprazol e (PROTONIX) 20 mg EC tablet 06-15 15:18: 29 Yes 20mg Take 20 mg by mouth daily. [facility] cloNIDine 0.2 mg tablet 06-15 15:18: 29 Yes .2mg Take 0.2 mg by mouth 3 (three) times daily. [facility] metoprolol succinate XL 50 mg 24 hr tablet 06-15 15:18: 29 Yes 50mg Take 50 mg by mouth 2 (two) times daily. [facility] QUEtiapine (SEROQUEL) 400 mg tablet 06-15 15:18: 29 Yes 800mg Take 800 mg by mouth at bedtime. [facility] aspirin 81 mg chewable tablet 06-15 00:00: 00 Yes [id number] 81mg Take 1 tablet by mouth daily. [facility] ergocalcife rol, vitamin d2, 1,250 mcg (50,000 unit) capsule 06-15 00:00: 00 Yes [id number] Take 1 capsule by mouth weekly. [facility] benzonatate (TESSALON PERLES) 100 mg capsule 06-15 00:00: 00 Yes [id number] 200mg Take 2 capsules by mouth 3 (three) times daily as needed for Cough. [facility] dexAMETHaso ne 4 mg tablet 06-15 00:00: 00 06-21 05:59 :00 No [id number] 4mg Take 1 tablet by mouth daily with breakfast for 5 days. [facility] enoxaparin (LOVENOX) injection 40 mg 06-14 15:00: 00 Yes 40mg 40 mg, Subcutaneo us, DAILY, First dose on Wed06/14/20 at 0900, Until Discontinu ed, Routine [facility] iohexol (OMNIPAQUE 350 BULK-100 mL) injection 100 mL 06-13 14:30: 00 06-13 14:07 :00 No 100mL 100 mL, Intravenou s, ONCE, 1 dose, Yulisa 06/13/20 at 0830, Routine [facility] enoxaparin (LOVENOX) injection 100 mg 06-13 02:00: 00 06-14 07:50 :01 No 1mg/kg 100 mg (rounded from 101 mg = 1 mg/kg ?101 kg), Subcutaneo us, Q12H, First dose (after last modificati on) on Wed06/12/20 at 2000, Until Discontinu ed, Routine [facility] enoxaparin (LOVENOX) injection 60 mg 06-12 19:15: 00 06-12 19:21 :00 No 60mg 60 mg, Subcutaneo us, ONCE NOW, 1 dose, Wed06/12/20 at 1315, Routine [facility] tc 99m-albumin (DRAXIMAGE MAA) injection 7 millicurie 06-12 18:30: 00 06-12 18:20 :00 No 7mCi 7 millicurie , Intravenou s, ONCE, 1 dose, Wed06/12/20 at 1230, Routine [facility] furosemide (LASIX) injection 20 mg 06-12 18:00: 00 Yes 20mg 20 mg, IV Push, DAILY, First dose on Wed06/12/20 at 1200, Until Discontinu ed, [facility]ine [facility] ALPRAZolam (XANAX) tablet 2 mg 06-12 17:45: 00 Yes 2mg 2 mg, Oral, TIDPRN, Starting Wed06/12/20 at 1145, Until Discontinu ed, Routine, anxiety [facility] HYDROcodone -acetaminop hen (NORCO) 10-325 mg tablet 1 tablet 06-12 17:42: 07 Yes 1{tbl} 1 tablet, Oral, Q6HPRN, Starting Wed06/12/20 at 1142, Until Discontinu ed, Routine, Pain (scale 4-6), Pain (scale 7-10) [facility] ascorbic acid (vitamin C) (VITAMIN C) tablet 1,000 mg 06-12 15:00: 00 Yes 1000mg 1,000 mg, Oral, DAILY, First dose on Wed06/12/20 at 0900, Until Discontinu ed, Routine [facility] zinc sulfate (ORAZINC) capsule 220 mg 06-12 15:00: 00 Yes 220mg 220 mg, Oral, DAILY, First dose on Wed06/12/20 at 0900, Until Discontinu ed, Routine [facility] pantoprazol e (PROTONIX) EC tablet 20 mg 06-12 15:00: 00 Yes 20mg 20 mg, Oral, DAILY, First dose on Wed06/12/20 at 0900, Until Discontinu ed, Routine [facility] montelukast (SINGULAIR) tablet 10 mg 06-12 15:00: 00 Yes 10mg 10 mg, Oral, DAILY, First dose on Wed06/12/20 at 0900, Until Discontinu ed, Routine [facility] insulin glargine (LANTUS U-100) injection 80 Units 06-12 15:00: 00 Yes 80U 80 Units, Subcutaneo us, DAILY, First dose on Wed06/12/20 at 0900, Until Discontinu ed [facility] QUEtiapine (SEROQUEL) tablet 800 mg 06-12 03:00: 00 Yes 800mg 800 mg, Oral, QHS, First dose on Wed06/11/20 at 2100, Until Discontinu ed, Routine [facility] metoprolol succinate XL (TOPROL XL) tablet 50 mg 06-12 02:00: 00 Yes 50mg 50 mg, Oral, BID, First dose on Wed06/11/20 at 2000, Until Discontinu ed, Routine [facility] cloNIDine (CATAPRES) tablet 0.2 mg 06-12 02:00: 00 Yes .2mg 0.2 mg, Oral, TID, First dose on Wed06/11/20 at 2000, Until Discontinu ed, Routine [facility] albuterol-i pratropium (COMBIVENT RESPIMAT) 20-100 mcg/actuati on inhaler 2 Puff 06-12 02:00: 00 Yes 2{puff} 2 Puff, Inhalation , QID, First dose on Wed06/11/20 at 2000, Until Discontinu ed
Is this order for a patient with suspected or confirmed COVID-19 infection? Yes [facility] iron dextran (INFED) 1,000 mg in NaCl 0.9% (NS) 500 mL IV infusion 06-12 01:45: 00 06-12 07:54 :00 No 1000mg 1,000 mg, IV Infusion, ONCE, 1 dose, Wed06/11/20 at 1945, 500 mL [facility] magnesium sulfate in D5W 1 gram/100 mL RTU IV Piggyback 1 g 06-12 01:45: 00 06-12 04:48 :00 No 1g 1 g, IV Piggyback, ONCE, 1 dose, Wed06/11/20 at 1945, 100 mL [facility] HYDROcodone -acetaminop hen (NORCO 5) 5-325 mg tablet 1 tablet 06-12 00:30: 00 06-12 00:33 :00 No 1{tbl} 1 tablet, Oral, ONCE, 1 dose, Wed06/11/20 at 1830, Routine [facility] proMETHazin e (PHENERGAN) 12.5 mg in NaCl 0.9% (NS) 50 mL IV piggyback 06-11 23:42: 03 Yes 12.5mg 12.5 mg, IV Piggyback, Q6HPRN, Starting Wed06/11/20 at 1742, Until Discontinu ed, Routine, Nausea and Vomiting (N/V) [facility] LORazepam 2 mg tablet 06-11 23:21: 17 06-11 00:00 :00 No 2mg Take 2 mg by mouth 3 (three) times daily as needed. [facility] canaglifloz in (INVOKANA) 100 mg tablet 06-11 23:21: 12 06-11 00:00 :00 No 100mg Take 100 mg by mouth daily. [facility] ALPRAZolam (XANAX) tablet 2 mg 06-11 23:20: 52 06-12 17:43 :22 No 2mg 2 mg, Oral, BIDPRN, Starting Wed06/11/20 at 1720, Until Wed06/12/20 at 1143, Routine, anxiety [facility] HYDROcodone -acetaminop hen (NORCO) 10-325 mg tablet 1 tablet 06-11 23:17: 21 06-12 17:43 :22 No 1{tbl} 1 tablet, Oral, Q6HPRN, Starting Wed06/11/20 at 1717, Until Wed06/12/20 at 1143, Routine, Pain (scale 7-10) [facility] Sliding Scale Insulin - Lispro (HumaLOG) + Fsbg Testing 06-11 23:00: 00 Yes Subcutaneo us, TID MEALS+HS, First dose on Wed06/11/20 at 1700, Until Discontinu ed, Routine [facility] enoxaparin (LOVENOX) injection 40 mg 06-11 23:00: 00 06-12 18:04 :51 No 40mg 40 mg, Subcutaneo us, DAILY, First dose on Wed06/11/20 at 1700, Until Discontinu ed, Routine [facility] codeine-gua ifenesin (ROBITUSSIN AC) 10-100 mg/5 mL solution 10 mL 06-11 22:37: 32 Yes 10mL 10 mL, Oral, Q6HPRN, Starting Wed06/11/20 at 1637, Until Discontinu ed, Routine, Cough [facility] acetaminoph en (TYLENOL) tablet 650 mg 06-11 22:32: 47 Yes 650mg 650 mg, Oral, Q6HPRN, Starting Wed06/11/20 at 1632, Until Discontinu ed, Routine, Pain (scale 1-3) [facility] diphenhydrA MINE (BENADRYL) injection 25 mg 06-11 21:00: 00 06-11 19:58 :00 No 25mg 25 mg, Slow IV Push, ONCE, 1 dose, Wed06/11/20 at 1500, STAT [facility] metoclopram chrissy HCl (REGLAN) injection 10 mg 06-11 21:00: 00 06-11 19:58 :00 No 10mg 10 mg, Slow IV Push, ONCE, 1 dose, Wed06/11/20 at 1500, [facility] HYDROcodone -acetaminop hen (NORCO 5) 5-325 mg tablet 1 tablet 06-11 19:30: 00 06-11 18:28 :00 No 1{tbl} 1 tablet, Oral, ONCE, 1 dose, Wed06/11/20 at 1330, [facility] NaCl 0.9% (NS) bolus infusion 1,000 mL 06-11 18:30: 00 06-11 18:28 :00 No 1000mL at 999 mL/hr, 1,000 mL, IV Infusion, ONCE, 1 dose, 06/11/20 at 1230, [facility] ondansetron (ZOFRAN (PF)) injection 4 mg 06-11 18:15: 00 06-11 17:14 :00 No 4mg 4 mg, Slow IV Push, ONCE, 1 dose, 06/11/20 at 1215, [facility] codeine-gua ifenesin (ROBITUSSIN AC) 10-100 mg/5 mL solution 10 mL 06-11 17:45: 00 06-11 17:05 :00 No 10mL 10 mL, Oral, ONCE, 1 dose, 06/11/20 at 1145, [facility] acetaminoph en (TYLENOL) tablet 1,000 mg 06-11 17:45: 00 06-11 16:50 :00 No 1000mg 1,000 mg, Oral, ONCE, 1 dose, 06/11/20 at 1145, [facility] albuterol (PROVENTIL) 2.5 mg /3 mL (0.083 %) nebulizer solution 2.5 mg 06-11 16:45: 00 06-11 16:48 :00 No 2.5mg 2.5 mg, Inhalation , ONCE, 1 dose, 06/11/20 at 1045, [facility] NaCl 0.9% (NS) bolus infusion 1,000 mL 06-11 16:45: 00 06-11 19:31 :00 No 1000mL at 999 mL/hr, 1,000 mL, IV Infusion, ONCE, 1 dose, 06/11/20 at 1045, [facility] traMADOL (ULTRAM) 50 mg tablet 10-26 00:00: 00 Yes 50mg Take 1 tablet by mouth every 6 (six) hours as needed for Pain (scale 7-10). [facility] levoFLOXaci n (LEVAQUIN) 500 mg tablet 10-26 00:00: 00 Yes 500mg Take 1 tablet by mouth every 24 (twenty-fo ur) hours. [facility] ALPRAZolam (XANAX) 2 mg tablet 2015-04 04:30: 37 Yes 2mg Take 2 mg by mouth 3 (three) times daily as needed for Sleep. [facility] INSULIN DEGLUDEC (TRESIBA FLEXTOUCH U-100 SC) 2015-04 04:30: 37 Yes inject under the skin. [facility] canaglifloz in (INVOKANA) 100 mg tablet 2015-04 04:30: 37 Yes 100mg Take 100 mg by mouth daily. [facility] ondansetron (ZOFRAN, HYDROCHLORI DE,) 4 mg tablet 2015-04 00:00: 00 Yes 4mg Take 1 tablet by mouth every 8 (eight) hours as needed for Nausea and Vomiting (N/V). [facility] ciprofloxac in HCl (CIPRO) 500 mg tablet 2015-04 00:00: 00 Yes 500mg Take 1 tablet by mouth 2 (two) times daily. [facility] metroNIDAZO LE (FLAGYL) 500 mg tablet 2015-04 00:00: 00 Yes 500mg Take 1 tablet by mouth 2 (two) times daily. [facility] traMADOL (ULTRAM) 50 mg tablet 2015-04 00:00: 00 Yes 50mg Take 1 tablet by mouth every 6 (six) hours as needed for Pain (scale 7-10). [facility] ondansetron (ZOFRAN, HYDROCHLORI DE,) 4 mg tablet 07-22 00:00: 00 Yes 4mg Take 1 Tab by mouth every 8 (eight) hours as needed for Nausea and Vomiting (N/V). [facility] acetaminoph en-codeine (TYLENOL-CO DEINE #3) 300-30 mg tablet 4-05 00:00: 00 Yes 1{tbl} Take 1 Tab by mouth every 6 (six) hours as needed for Pain (scale 4-6). [facility] esomeprazol e (NEXIUM) 40 mg capsule 2010-04 031 00:00: 00 Yes TAKE 1 CAPSULE EVERY DAY WITH BREAKFAST [facility] gabapentin (NEURONTIN) 400 mg capsule 2 00:00: 00 Yes 400mg Take 1 Cap by mouth 3 (three) times daily. [facility] albuterol-i pratropium (COMBIVENT INHALER) 18-103 mcg/Actuati on inhaler 2009-04 0 00:00: 00 Yes 2{puff} Inhale 2 Puffs 4 (four) times daily. [facility] traMADOL (ULTRAM) 50 mg tablet 2009-04 0 00:00: 00 Yes [id number] 50mg Take 1 Tab by mouth every 6 (six) hours as needed for Pain. [facility] hydrocodone -acetaminop hen (NORCO) 10-325 mg per tablet 2009-04 0 00:00: 00 Yes [id number] 1{tbl} Take 1 Tab by mouth every 6 (six) hours as needed for Pain. [facility] albuterol-i pratropium (COMBIVENT INHALER) 18-103 mcg/Actuati on inhaler 2009-04 0 00:00: 00 Yes [id number] 2{puff} Inhale 2 Puffs 4 (four) times daily. [facility] fluticasone (FLONASE) 50 mcg/Actuati on nasal spray 2009-04 0 00:00: 00 Yes 2{spray } Use 2 Sprays in each nostril daily. [facility] montelukast (SINGULAIR) 10 mg tablet 2009-04 0 00:00: 00 Yes [id number] 10mg Take 1 Tab by mouth daily. [facility] esomeprazol e (NEXIUM) 40 mg capsule 2009-04 0 00:00: 00 Yes 40mg Take 1 Cap by mouth daily with breakfast. [facility] carvedilol (COREG) 12.5 mg tablet 2009-04 00:00: 00 Yes [id number] 25mg Take 2 Tabs by mouth 2 (two) times daily with meals. [facility] valsartan (DIOVAN) 320 mg tablet 2009-04 00:00: 00 Yes [id number] 320mg Take 1 Tab by mouth daily. [facility] metFORMIN (GLUCOPHAGE ) 500 mg tablet 2009-04 00:00: 00 Yes [id number] 500mg Take 1 Tab by mouth daily. [facility] loratadine (CLARITIN) 10 mg tablet 2009-04 00:00: 00 Yes 10mg Take 1 Tab by mouth daily. [facility] chlorhexidi ne (PERIDEX) 0.12 % Liqd 12-17 00:00: 00 Yes Swish and spit out. Mouth wash, swish and spit, 3 temies a day x 7 days [facility] Immunizations Ordered Immunization Name Filled Immunization Name Date Status Comments Source Influenza Virus Vaccine,quad Im,preserve Free 2022-04-24 00:00:00 Completed [facility] Influenza Virus Vaccine,quad Im,preserve Free 2022-04-24 00:00:00 Completed [facility] Influenza Virus Vaccine,quad Im,preserve Free 2022-04-24 00:00:00 Completed [facility] Influenza Virus Vaccine,quad Im,preserve Free 2022-04-24 00:00:00 Completed [facility] Influenza Virus Vaccine,quad Im,preserve Free 2022-04-24 00:00:00 Completed [facility] Influenza Virus Vaccine,quad Im,preserve Free 2022-04-24 00:00:00 Completed [facility] Influenza Virus Vaccine,quad Im,preserve Free 2022-04-24 00:00:00 Completed [facility] Influenza Virus Vaccine,quad Im,preserve Free 2022-04-24 00:00:00 Completed [facility] Influenza Virus Vaccine,quad Im,preserve Free 2022-04-24 00:00:00 Completed [facility] Influenza Virus Vaccine,quad Im,preserve Free 652022-04-24 00:00:00 Completed [facility] Influenza Virus Vaccine,quad Im,preserve Free 652022-04-24 00:00:00 Completed [facility] Influenza Virus Vaccine,quad Im,preserve Free 652022-04-24 00:00:00 Completed [facility] Influenza Virus Vaccine,quad Im,preserve Free 652022-04-24 00:00:00 Completed [facility] Influenza Virus Vaccine,quad Im,preserve Free 652022-04-24 00:00:00 Completed [facility] Influenza Virus Vaccine,quad Im,preserve Free 652022-04-24 00:00:00 Completed [facility] Influenza Virus Vaccine,quad Im,preserve Free 652022-04-24 00:00:00 Completed [facility] Influenza Virus Vaccine,quad Im,preserve Free 652022-04-24 00:00:00 Completed [facility] Influenza Virus Vaccine,quad Im,preserve Free 2022-04-24 00:00:00 Completed [facility] Influenza Virus Vaccine,quad Im,preserve Free 652022-04-24 00:00:00 Completed [facility] Influenza Virus Vaccine,quad Im,preserve Free 652022-04-24 00:00:00 Completed [facility] Influenza Virus Vaccine,quad Im,preserve Free 652022-04-24 00:00:00 Completed [facility] Moderna COVID-19 Vaccine 2021-04-09 00:00:00 Completed Moderna COVID-19 Vaccine 2021-04-09 00:00:00 Completed Moderna COVID-19 Vaccine 2021-04-09 00:00:00 Completed Moderna COVID-19 Vaccine 2021-04-09 00:00:00 Completed Moderna COVID-19 Vaccine 2021-04-09 00:00:00 Completed Moderna COVID-19 Vaccine Moderna COVID-19 Vaccine 2021-04-09 00:00:[address] [place] Moderna COVID-19 Vaccine Moderna COVID-19 Vaccine 2021-04-09 00:00:[address] [place] Influenza Virus Vaccine,quad Im,preserve Free 65+ (FLUAD) Unknown Completed [facility] Influenza Virus Vaccine,quad Im,preserve Free 65+ (FLUAD) Unknown Completed [facility] Influenza Virus Vaccine,quad Im,preserve Free 65+ (FLUAD) Unknown Completed [facility] Influenza Virus Vaccine,quad Im,preserve Free 65+ (FLUAD) Unknown Completed [facility] Influenza Virus Vaccine,quad Im,preserve Free 65+ (FLUAD) Unknown Completed [facility] Vital Signs Vital Name Observation Time Observation Value Comments S ource Systolic blood pressure 2023-02-23 01:26:00 134 mm[Hg] [facility] Diastolic blood pressure 2023-02-23 01:26:00 87 mm[Hg] [facility] Heart rate 2023-02-23 01:26:00 92 /min [facility] Respiratory rate 2023-02-23 01:26:00 24 /min [facility] Oxygen saturation in Arterial blood by Pulse oximetry 2023-02-23 01:26:00 99 /min [facility] Body temperature 2023-02-22 21:46:00 36.83 Justyna [facility] Body weight 2023-02-22 21:46:00 97.523 kg [facility] BMI 2023-02-22 21:46:00 36.90 kg/m2 [facility] Systolic blood pressure 2022-08-10 20:10:00 167 mm[Hg] [facility] Diastolic blood pressure 2022-08-10 20:10:00 100 mm[Hg] [facility] Heart rate 2022-08-10 20:10:00 102 /min [facility] Respiratory rate 2022-08-10 20:10:00 18 /min [facility] Oxygen saturation in Arterial blood by Pulse oximetry 2022-08-10 20:10:00 100 /min [facility] Body temperature 2022-08-10 14:17:00 37.28 Justyna [facility] Body weight 2022-08-10 14:17:00 102.059 kg [facility] BMI 2022-08-10 14:17:00 38.62 kg/m2 [facility] Systolic blood pressure 2022-07-24 14:54:00 134 mm[Hg] [facility] Diastolic blood pressure 2022-07-24 14:54:00 84 mm[Hg] [facility] Heart rate 2022-07-24 14:54:00 97 /min [facility] 2022-07-24 14:54:00 18 /min [facility] Body height 2022-07-24 14:54:00 162.6 cm [facility] Body weight 2022-07-24 14:54:00 102.059 kg [facility] BMI 2022-07-24 14:54:00 38.62 kg/m2 [facility] Oxygen saturation in Arterial blood by Pulse oximetry 2022-07-24 14:54:00 99 /min [facility] Systolic blood pressure 2022-04-24 20:42:00 133 mm[Hg] [facility] Diastolic blood pressure 2022-04-24 20:42:00 74 mm[Hg] [facility] Heart rate 2022-04-24 20:42:00 92 /min [facility] Body temperature 2022-04-24 20:42:00 36.72 Justyna [facility] Body height 2022-04-24 20:42:00 162.6 cm [facility] Body weight 2022-04-24 20:42:00 98.294 kg [facility] BMI 2022-04-24 20:42:00 37.20 kg/m2 [facility] Oxygen saturation in Arterial blood by Pulse oximetry 2022-04-24 20:42:00 93 /min [facility] Systolic blood pressure 2022-04-20 20:14:00 140 mm[Hg] [facility] Diastolic blood pressure 2022-04-20 20:14:00 83 mm[Hg] [facility] Heart rate 2022-04-20 20:10:00 99 /min [facility] Body height 2022-04-20 20:10:00 162.6 cm [facility] Body weight 2022-04-20 20:10:00 95.709 kg [facility] BMI 2022-04-20 20:10:00 36.22 kg/m2 [facility] Oxygen saturation in Arterial blood by Pulse oximetry 2022-04-20 20:10:00 97 /min [facility] Body height 2022-04-03 14:19:00 162.6 cm [facility] Body weight 2022-04-03 14:19:00 97.523 kg [facility] BMI 2022-04-03 14:19:00 36.90 kg/m2 [facility] Systolic blood pressure 2020-06-15 19:00:00 133 mm[Hg] [facility] Diastolic blood pressure 2020-06-15 19:00:00 81 mm[Hg] [facility] Heart rate 2020-06-15 19:00:00 71 /min [facility] Respiratory rate 2020-06-15 19:00:00 21 /min [facility] Body temperature 2020-06-15 17:24:00 35.56 Justyna [facility] Oxygen saturation in Arterial blood by Pulse oximetry 2020-06-15 17:14:00 100 /min [facility] Body weight 2020-06-11 21:20:00 100.971 kg [facility] BMI 2020-06-11 21:20:00 38.21 kg/m2 [facility] Systolic blood pressure 2020-06-15 19:00:00 133 mm[Hg] [facility] Diastolic blood pressure 2020-06-15 19:00:00 81 mm[Hg] [facility] Heart rate 2020-06-15 19:00:00 71 /[facility] Respiratory rate 2020-06-15 19:00:00 21 /min [facility] Body temperature 2020-06-15 17:24:00 35.56 Justyna [facility] Oxygen saturation in Arterial blood by Pulse oximetry 2020-06-15 17:14:00 100 /min [facility] Body weight 2020-06-11 21:20:00 100.971 kg [facility] BMI 2020-06-11 21:20:00 38.21 kg/m2 [facility] BP Systolic 2023-12-07 19:36:00 Step hen F [place] BP Diastolic 2023-12-07 19:36:00 Jeff phen [facility] [place] Weight Measured 2023-12-07 19:36:00 Lane F [place] Height Measured 2023-12-07 19:36:00 Lane F [place] Body Temperature 2023-12-07 19:36:00 Lane F [place] Heart Rate 2023-12-07 19:36:00 [place] en F [place] Respiratory Rate 2023-12-07 19:36:00 Lane F [place] BP Systolic 2023-08-12 09:38:00 130 mm[Hg] Step hen [facility] [place] BP Diastolic 2023-08-12 09:38:00 79 mm[Hg] Jeff phen [facility] [place] Weight Measured 2023-08-12 09:38:[address] [facility] [place] Height Measured 2023-08-12 09:38:[address] [facility] [place] Body Temperature 2023-08-12 09:38:[address] [facility] [place] Heart Rate 2023-08-12 09:38:00 90.00 /min [place] en [facility] [place] Respiratory Rate 2023-08-12 09:38:00 18.00 /min Lane F [place] BP Systolic 2023-07-14 08:27:00 154 mm[Hg] Step hen [facility] [place] BP Diastolic 2023-07-14 08:27:00 75 mm[Hg] Jeff phen [facility] [place] Weight Measured 2023-07-14 08:27:[address] [facility] [place] Height Measured 2023-07-14 08:27:[address] [facility] [place] Body Temperature 2023-07-14 08:27:[address] [facility] [place] Heart Rate 2023-07-14 08:27:00 90.00 /min [place] en [facility] [place] Respiratory Rate 2023-07-14 08:27:00 17.00 /min Lane F [place] BP Systolic 2023-06-14 10:44:00 Step hen F [place] BP Diastolic 2023-06-14 10:44:00 Jeff phen [facility] [place] Weight Measured 2023-06-14 10:44:00 Lane F [place] Height Measured 2023-06-14 10:44:00 Lane F [place] Body Temperature 2023-06-14 10:44:00 Lane F [place] Heart Rate 2023-06-14 10:44:00 [place] en [facility] [place] Respiratory Rate 2023-06-14 10:44:00 Lane F [place] BP Systolic 2023-02-09 10:14:00 119 mm[Hg] Step hen [facility] [place] BP Diastolic 2023-02-09 10:14:00 68 mm[Hg] Jeff phen [facility] [place] Weight Measured 2023-02-09 10:14:[address] [facility] [place] Height Measured 2023-02-09 10:14:[address] [facility] [place] Body Temperature 2023-02-09 10:14:[address] [facility] [place] Heart Rate 2023-02-09 10:14:00 100.00 /min Step hen [facility] [place] Respiratory Rate 2023-02-09 10:14:00 18.00 /min Lane F [place] BP Systolic 2022-12-10 13:53:00 152 mm[Hg] Step hen [facility] [place] BP Diastolic 2022-12-10 13:53:00 94 mm[Hg] Jeff phen [facility] [place] Weight Measured 2022-12-10 13:53:[address] [facility] [place] Height Measured 2022-12-10 13:53:[address] [facility] [place] Body Temperature 2022-12-10 13:53:[address] F [place] Heart Rate 2022-12-10 13:53:00 106.00 /min Step hen [facility] [place] Respiratory Rate 2022-12-10 13:53:00 Lane F [place] BP Systolic 2022-11-10 10:13:00 119 mm[Hg] Step hen [facility] [place] BP Diastolic 2022-11-10 10:13:00 71 mm[Hg] Jeff phen [facility] [place] Weight Measured 2022-11-10 10:13:[address] [facility] [place] Height Measured 2022-11-10 10:13:[address] [facility] [place] Body Temperature 2022-11-10 10:13:[address] F [place] Heart Rate 2022-11-10 10:13:00 105.00 /min Step hen [facility] [place] Respiratory Rate 2022-11-10 10:13:00 17.00 /min Lane F [place] BP Systolic 2022-09-08 08:53:00 112 mm[Hg] Step hen [facility] [place] BP Diastolic 2022-09-08 08:53:00 68 mm[Hg] Jeff phen [facility] [place] Weight Measured 2022-09-08 08:53:[address] [facility] [place] Height Measured 2022-09-08 08:53:[address] [facility] [place] Body Temperature 2022-09-08 08:53:[address] F [place] Heart Rate 2022-09-08 08:53:00 63.00 /min [place] en [facility] [place] Respiratory Rate 2022-09-08 08:53:00 18.00 /min Lane F [place] BP Systolic 2022-05-26 08:13:00 127 mm[Hg] Step hen [facility] [place] BP Diastolic 2022-05-26 08:13:00 83 mm[Hg] Jeff phen [facility] [place] Weight Measured 2022-05-26 08:13:[address] [facility] [place] Height Measured 2022-05-26 08:13:[address] [facility] [place] Body Temperature 2022-05-26 08:13:[address] [facility] [place] Heart Rate 2022-05-26 08:13:00 94.00 /min [place] en [facility] [place] Respiratory Rate 2022-05-26 08:13:00 18.00 /min Lane F [place] BP Systolic 2022-03-25 08:33:00 149 mm[Hg] Step hen [facility] [place] BP Diastolic 2022-03-25 08:33:00 90 mm[Hg] Jeff phen [facility] [place] Weight Measured 2022-03-25 08:33:[address] [facility] [place] Height Measured 2022-03-25 08:33:[address] F [place] Body Temperature 2022-03-25 08:33:[address] F [place] Heart Rate 2022-03-25 08:33:00 97.00 /min [place] en [facility] [place] Respiratory Rate 2022-03-25 08:33:00 17.00 /min Lane Rajni Tafoya BP Systolic 2022-03-11 09:03:00 134 mm[Hg] Step hen Rajni [place] BP Diastolic 2022-03-11 09:03:00 82 mm[Hg] Jeff [place] Weight Measured 2022-03-11 09:03:[address] [place] Height Measured 2022-03-11 09:03:[address] [place] Body Temperature 2022-03-11 09:03:[address] Rajni Taf[place] Heart Rate 2022-03-11 09:03:00 80.00 /min [place] en [facility] [place] Respiratory Rate 2022-03-11 09:03:00 18.00 /min Lane T[facility] BP Systolic 2022-01-13 16:30:00 BP Diastolic 2022-01-13 [...] 17.00 /min Procedures Procedure Date / Time Performed Performing Clinician Source REFERRAL- REQUEST/RESPONSE 2023-04-14 06:01:00 Doctor Unassigned, [place] [facility] REFERRAL- REQUEST/RESPONSE 2023-03-24 06:01:00 Doctor Unassigned, [place] [facility] URINALYSIS 2023-02-22 23:38:00 Ad Esparza [facility] TROPONIN I 2023-02-22 23:24:00 Ad Esparza [facility] COMP. METABOLIC PANEL ([id number]) 2023-02-22 23:24:00 Vil[facility] CBC WITH DIFF 2023-02-22 23:24:00 [facility] N-TERMINAL PRO-BNP 2023-02-22 23:24:00 Vilma [facility] GALV ONLY - INFLUENZA A B RSV PCR 2023-02-22 22:46:00 Vilma [facility] COVID-19 (ID NOW RAPID TESTING) 2023-02-22 22:46:00 Vil[facility] CONSENT/REFUSAL FOR DIAGNOSIS AND TREATMENT 2023-02-22 21:27:45 Doctor Unassigned, [place] [facility] CT ABDOMEN PELVIS W CONTRAST 2022-08-10 17:27:00 Benjamín Taylor [facility] LIPASE 2022-08-10 15:31:00 Benjamín Taylor [facility] COMP. METABOLIC PANEL ([id number]) 2022-08-10 15:31:00 Benjamín Taylor [facility] CBC WITH DIFF 2022-08-10 15:31:00 [facility] URINALYSIS 2022-08-10 15:31:00 Benjamín Taylor [facility] COVID-19 (ID NOW RAPID TESTING) 2022-08-10 15:31:00 Benjamín Taylor [facility] CONSENT/REFUSAL FOR DIAGNOSIS AND TREATMENT 2022-08-10 14:06:59 Doctor Unassigned, [place] [facility] OPERATIVE NOTES 2022-08-05 05:01:00 Doctor Unass igned, [place] [facility] EXTERNAL PROVIDER RECORDS 2022-08-04 05:01:00 Do ctor Unassigned, [place] [facility] CBC WITH DIFF 2022-07-30 13:22:00 Perez Hollins [facility] MYOCARDIUM PERFUSION STRESS AND REST 2022-07-09 17:00:00 Philippe, [facility] [facility] NUCLEAR STRESS TEST CARDIOLOGY (DO NOT SCHED) 2022-07-09 17:00:00 Philippe, Sendil [facility] NUCLEAR STRESS TEST CARDIOLOGY (DO NOT SCHED) 2022-07-09 17:00:00 Philippe, Sendil [facility] NM MYOCARDIUM PERFUSION STRESS AND REST 2022-07-09 17:00:00 Philippe, Sendil [facility] NM MYOCARDIUM PERFUSION STRESS AND REST 2022-07-09 17:00:00 Philippe, Sendil [facility] NUCLEAR STRESS TEST CARDIOLOGY (DO NOT SCHED) 2022-07-09 17:00:00 Philippe, Sendil [facility] NM MYOCARDIUM PERFUSION STRESS AND REST 2022-07-09 17:00:00 Philippe, Sendil [facility] NUCLEAR STRESS TEST CARDIOLOGY (DO NOT SCHED) 2022-07-09 17:00:00 Philippe, Sendil [facility] CONSENT/REFUSAL FOR DIAGNOSIS AND TREATMENT 2022-07-09 13:33:42 Doctor Unassigned, [place] [facility] ASSIGNMENT OF BENEFITS 2022-07-09 13:33:23 Docto r Unassigned, [place] [facility] INSURANCE CORRESPONDENCE 2022-05-14 06:01:00 Doc tor Unassigned, [place] [facility] FLU VACC(),65+YR,0.5 ML,IM,ADJUVANTED,QUAD(FLU AD) 2022-04-24 21:33:53 José Sendantonio [facility] HB ECG ROUTINE & RHYTHM STRIP 2022-04-24 20:38:59 Melia Philippe [facility] NOTICE OF BILLING PRACTICES FOR MEDICARE PATIENTS 2022-04-17 16:03:01 Doctor Unassigned, [place] [facility] ASSIGNMENT OF BENEFITS 2022-04-03 13:53:01 Docto r Unassigned, [place] [facility] REFERRAL- REQUEST/RESPONSE 2022-03-21 06:01:00 Doctor Unassigned, [place] [facility] POCT GLUCOSE (AUTOMATED) 2020-06-15 17:39:00 Leonarda Nava [facility] BASIC METABOLIC PANEL (NA, K, CL, CO2, GLUCOSE, BUN, CREATININE, CA) 2020-06-15 11:05:00 Jena Davidson [facility] CBC WITH DIFF 2020-06-15 11:05:00 Jena Davidson [facility] POCT GLUCOSE (AUTOMATED) 2020-06-15 01:31:00 Leonarda Nava [facility] POCT GLUCOSE (AUTOMATED) 2020-06-14 22:14:00 Leonarda Nava [facility] POCT GLUCOSE (AUTOMATED) 2020-06-14 17:32:00 Leonarda Nava [facility] POCT GLUCOSE (AUTOMATED) 2020-06-14 13:51:00 Leonarda Nava [facility] BASIC METABOLIC PANEL (NA, K, CL, CO2, GLUCOSE, BUN, CREATININE, CA) 2020-06-14 10:45:00 Jena Davidson [facility] CBC WITH DIFF 2020-06-14 10:45:00 Jena Davidson [facility] POCT GLUCOSE (AUTOMATED) 2020-06-14 05:57:00 Leonarda Nava [facility] POCT GLUCOSE (AUTOMATED) 2020-06-14 02:04:00 Leonarda Nava [facility] POCT GLUCOSE (AUTOMATED) 2020-06-13 22:36:00 Leonarda Nava [facility] POCT GLUCOSE (AUTOMATED) 2020-06-13 17:41:00 Leonarda Nava [facility] POCT GLUCOSE (AUTOMATED) 2020-06-13 14:21:00 Leonarda Nava [facility] CT ANGIOGRAM CHEST 2020-06-13 14:17:35 Carlitos Uribe [facility] BASIC METABOLIC PANEL (NA, K, CL, CO2, GLUCOSE, BUN, CREATININE, CA) 2020-06-13 09:46:00 Jena Davidson [facility] CBC WITH DIFF 2020-06-13 09:46:00 Jena Davidson [facility] PREPARE PLASMA 2020-06-13 04:34:33 [place] [facility] POCT GLUCOSE (AUTOMATED) 2020-06-12 22:57:00 Leonarda Nava [facility] NM LUNG PERFUSION ONLY 2020-06-12 18:45:00 Enriqueta Uribe [facility] POCT GLUCOSE (AUTOMATED) 2020-06-12 18:06:00 Leonarda Nava [facility] POCT GLUCOSE (AUTOMATED) 2020-06-12 14:07:00 Leonarda Nava [facility] ABORH CONFIRMATION 2020-06-12 09:30:00 Avery Nava [facility] D-DIMER 2020-06-12 09:25:00 Jena Davidson [facility] HB ABO GROUPING 2020-06-12 08:57:00 [place] [facility] BASIC METABOLIC PANEL (NA, K, CL, CO2, GLUCOSE, BUN, CREATININE, CA) 2020-06-12 08:55:00 Jena Davidson [facility] CBC WITH DIFF 2020-06-12 08:55:00 Jena Davidson [facility] POCT GLUCOSE (AUTOMATED) 2020-06-12 02:03:00 Leonarda Nava [facility] VITAMIN B12, LEVEL 2020-06-11 23:06:00 Jena Davidson [facility] VITAMIN D, 25-OH 2020-06-11 23:06:00 Jena Davidson [facility] PROCALCITONIN 2020-06-11 23:06:00 Jena Davidson [facility] IRON PANEL 2020-06-11 23:05:00 Jena Davidson [facility] POCT GLUCOSE (AUTOMATED) 2020-06-11 22:52:00 Leonarda Nava [facility] XR CHEST 1 VW 2020-06-11 17:23:51 Leonarda Nava [facility] MAGNESIUM 2020-06-11 16:46:00 Jena Dvaidson [facility] TROPONIN I 2020-06-11 16:46:00 [facility]ORMONE 2020-06-11 16:46:00 Jena Davidson [facility] HEPATIC FUNCTION PANEL ([id number]) (ALB,T.PRO,BILI T,BU/BC,ALT,AST,ALK PHOS) 2020-06-11 16:46:00 Leonarda Nava [facility] BASIC METABOLIC PANEL (NA, K, CL, CO2, GLUCOSE, BUN, CREATININE, CA) 2020-06-11 16:46:00 Leonarda Nava [facility] CBC WITH DIFF 2020-06-11 16:46:00 Leonarda N[facility] GLYCOSYLATED HEMOGLOBIN (A1C) 2020-06-11 16:46:00 Jena Davidson [facility] N-TERMINAL PRO-BNP 2020-06-11 16:46:00 Jena Davidson [facility] LACTIC ACID WHOLE BLOOD 2020-06-11 16:46:00 Leonarda Nava [facility] COVID-19 (ID NOW RAPID TESTING) 2020-06-11 16:46:00 Leonarda Nava [facility] LAB ONLY COVID INTERPRETATION 2020-06-11 16:46:00 Leonarda Nava [facility] HB ECG ROUTINE & RHYTHM STRIP 2020-06-11 16:36:07 Leonarda Nava [facility] CONSENT/REFUSAL FOR DIAGNOSIS AND TREATMENT 2020-06-11 16:09:15 Doctor Unassigned, [place] [facility] NOTICE OF PRIVACY PRACTICES 2020-06-11 16:08:58 Doctor Unassigned, [place] [facility] Plan of Care Planned Activity Planned Date Details Comments Source Goal Plan of Care Note [code = 52184-7] Goal Plan of Care Note [code = 23978-6] Goal Plan of Care Note [code = 81629-6] Goal Plan of Care Note [code = 06359-8] Goal Plan of Care Note [code = 81159-8] Goal Plan of Care Note [code = 85696-5] Goal Plan of Care Note [code = 55361-1] Goal Plan of Care Note [code = 76285-5] Goal Plan of Care Note [code = 95559-0] Goal Plan of Care Note [code = 61857-2] Goal Plan of Care Note [code = 16582-8] Goal Plan of Care Note [code = 50066-9] Goal Plan of Care Note [code = 64591-1] Goal Plan of Care Note [code = 26947-9] Goal Plan of Care Note [code = 59045-9] Goal Plan of Care Note [code = 80756-8] Goal Plan of Care Note [code = 79595-1] Goal Plan of Care Note [code = 56595-6] Goal Plan of Care Note [code = 74789-3] Goal Plan of Care Note [code = 20417-2] Goal Plan of Care Note [code = 73382-9] Goal Plan of Care Note [code = 23196-2] Goal Plan of Care Note [code = 42942-4] Goal Plan of Care Note [code = 03461-9] Goal Plan of Care Note [code = 25360-4] Goal Plan of Care Note [code = 37761-6] Goal Plan of Care Note [code = 12104-0] Goal Plan of Care Note [code = 05339-6] Goal Plan of Care Note [code = 18137-4] Goal Plan of Care Note [code = 32245-7] Goal Plan of Care Note [code = 73331-4] Goal Plan of Care Note [code = 09467-0] Goal Plan of Care Note [code = 93579-1] Goal Plan of Care Note [code = 41490-1] Goal Plan of Care Note [code = 63086-8] Goal Plan of Care Note [code = 26250-1] Goal Plan of Care Note [code = 91912-3] Goal Plan of Care Note [code = 53086-4] Goal Plan of Care Note [code = 50268-6] Goal Plan of Care Note [code = 29272-6] Goal Plan of Care Note [code = 43099-6] Goal Plan of Care Note [code = 63420-7] Goal Plan of Care Note [code = 99091-2] Goal Plan of Care Note [code = 08257-8] Goal Plan of Care Note [code = 80167-6] Goal Plan of Care Note [code = 67589-8] Goal Plan of Care Note [code = 19972-7] Goal Plan of Care Note [code = 31037-3] Goal Plan of Care Note [code = 21000-0] Goal Plan of Care Note [code = 97557-2] Goal Plan of Care Note [code = 71837-2] Goal Plan of Care Note [code = 17735-5] Goal Plan of Care Note [code = 21746-3] Goal Plan of Care Note [code = 67304-0] Goal Plan of Care Note [code = 10176-3] Goal Plan of Care Note [code = 81771-4] Goal Plan of Care Note [code = 26991-3] Goal Plan of Care Note [code = 45270-8] Goal Plan of Care Note [code = 13747-5] Goal Plan of Care Note [code = 98288-0] Goal Plan of Care Note [code = 80460-1] Goal Plan of Care Note [code = 34120-9] Goal Plan of Care Note [code = 52491-2] Goal Plan of Care Note [code = 18497-4] Goal Plan of Care Note [code = 65981-2] Goal Plan of Care Note [code = 74679-7] Goal Plan of Care Note [code = 86081-5] Goal Plan of Care Note [code = 20057-7] Goal Plan of Care Note [code = 54976-2] Goal Plan of Care Note [code = 96080-3] Goal Plan of Care Note [code = 60003-2] Goal Plan of Care Note [code = 82850-9] Goal Plan of Care Note [code = 21395-6] Goal Plan of Care Note [code = 77376-7] Encounters Start Date/Time End Date/Time Encounter Type Admission Type Attending [facility] Care Department Encounter ID Source 2024-01-20 00:00:2024-01-20 00:00:00 Outpatient Visit [facility] [id number] [address] [place] 2023-12-07 19:31:18 2023-12-07 19:31:18 Outpatient S[facility] [id number] [place] 2023-12-07 00:00:00 2023-12-07 00:00:00 Outpatient Visit S[facility] [id number] [address] [place] 2023-08-12 09:29:59 2023-08-12 09:29:59 Outpatient S[facility] [id number] [place] 2023-08-12 00:00:00 2023-08-12 00:00:00 Outpatient Visit SFA [id number] [address] [place] 2023-07-14 08:13:32 2023-07-14 08:13:32 Outpatient S[facility] [id number] [place] 2023-07-14 00:00:00 2023-07-14 00:00:00 Telephone Perez Hollins [facility] 1..840.114 350.1.13.10 4.2.7.2.686 [id number] [facility] 2023-05-13 10:15:00 2023-05-13 10:15:00 Outpatient R PEREZ HOLLINS CRAIG [facility] [id number] [facility] 2023-04-28 15:15:00 2023-04-28 15:15:00 Outpatient R PEREZ HOLLINS CRAIG [facility] [id number] [facility] 2023-04-14 00:00:00 2023-04-14 00:00:00 Orders Only Doctor Unassigned, [place] [facility] 1..840.114 350.1.13.10 4.2.7.2.686 [id number] [facility] 2023-03-30 17:31:22 2023-03-30 17:31:22 Outpatient [facility] [id number] [place] 2023-03-27 00:00:00 2023-03-27 00:00:00 Patient Secure Msg Doctor Unassigned, [place] [facility] 1.2.840.114 350.1.13.10 4.2.7.2.686 [id number] [facility] 2023-03-24 11:51:57 2023-03-24 11:51:57 Outpatient [facility] [id number] [place] 2023-03-24 00:00:00 2023-03-24 00:00:00 Orders Only Doctor Unassigned, [place] [facility] 1.2.840.114 350.1.13.10 4.2.7.2.686 [id number] [facility] 2023-03-01 15:43:36 2023-03-01 15:43:36 Outpatient [facility] [id number] [place] 2023-02-22 15:49:00 2023-02-22 19:29:00 Emergency X VILMA AD [facility] [id number] [facility] 2023-02-22 15:49:00 2023-02-22 19:29:00 Emergency Ad Espar[facility] 1.2.840.114 350.1.13.10 4.2.7.2.686 [id number] [facility] 2023-02-09 10:02:54 2023-02-09 10:02:54 Outpatient S[facility] [id number] [place] 2022-12-29 15:01:02 2022-12-29 15:01:02 Outpatient SFA [facility] [id number] [place] 2022-12-10 13:47:32 2022-12-10 13:47:32 Outpatient SFA [facility] [id number] [place] 2022-11-10 10:04:11 2022-11-10 10:04:11 Outpatient [facility] [id number] [place] 2022-09-08 08:42:33 2022-09-08 08:42:33 Outpatient [facility] [id number] [place] 2022-08-28 11:58:26 2022-08-28 11:58:26 Outpatient SFA [facility] [id number] [place] 2022-08-26 15:30:00 2022-08-26 15:45:00 Office Visit Dov Fleming [facility] 1..840.114 350.1.13.10 4.2.7.2.686 [id number] [facility] 2022-08-26 15:30:00 2022-08-26 15:30:00 Outpatient DOV PEREZ [facility] [id number] [facility] 2022-08-10 09:19:00 2022-08-10 15:20:00 Emergency X TARAS BENJAMÍN [facility] ERT [id number] [facility] 2022-08-10 09:19:00 2022-08-10 15:20:00 Emergency Benjamín Taylor J [facility] 1..840.114 350.1.13.10 4.2.7.2.686 [id number] [facility] 2022-08-05 09:39:00 2022-08-05 23:59:00 Hospital Encounter Perez Hollins [facility] 1.2.840.114 350.1.13.10 4.2.7.2.686 [id number] [facility] 2022-08-05 00:00:00 2022-08-05 23:59:00 Outpatient R PEREZ HOLLINS [facility] [id number] [facility] 2022-08-05 00:00:00 2022-08-05 00:00:00 Telephone Perez Hollins [facility] 1.84.114 350.1.13.10 4.2.7.2.686 [id number] [facility] 2022-08-05 00:00:00 2022-08-05 00:00:00 Orders Only Doctor Unassigned, [place] [facility] 1.114 350.1.13.10 4.2.7.2.686 [id number] [facility] 2022-08-04 00:00:00 2022-08-04 00:00:00 Orders Only Doctor Unassigned, [place] [facility] 1.114 350.1.13.10 4.2.7.2.686 [id number] [facility] 2022-08-03 09:00:00 2022-08-03 09:34:00 Outpatient Richard FLEMING [facility] [id number] [facility] 2022-08-03 09:00:00 2022-08-03 09:15:00 Supervisor Throwing Department Visit Lab, Berny Fleming [facility] 1.840.114 350.1.13.10 4.2.7.2.686 [id number] [facility] 2022-07-30 08:00:00 2022-07-30 08:36:35 Outpatient Richard FLEMING [facility] [id number] [facility] 2022-07-30 08:00:00 2022-07-30 08:36:35 Supervisor Throwing Department [facility] 1.840.114 350.1.13.10 4.2.7.2.686 [id number] [facility] 2022-07-29 00:00:00 2022-07-29 00:00:00 Telephone Dov [facility] 1.2840.114 350.1.13.10 4.2.7.2.686 [id number] [facility] 2022-07-28 00:00:00 2022-07-28 00:00:00 Telephone Perez Hollins [facility] 1.2840.114 350.1.13.10 4.2.7.2.686 [id number] [facility] 2022-07-24 10:40:00 2022-07-24 23:59:00 Outpatient R BERNADETTE DOV [facility] [id number] [facility] 2022-07-24 10:00:00 2022-07-24 10:59:56 Office Visit Bernadette Dov [facility] 1.2840.114 350.1.13.10 4.2.7.2.686 [id number] [facility] 2022-07-21 00:00:00 2022-07-21 00:00:00 Telephone Dov Fleming [facility] 1.840.114 350.1.13.10 4.2.7.2.686 [id number] [facility] 2022-07-14 00:00:00 2022-07-14 00:00:[address] [facility] 1..84.114 350.1.13.10 4.2.7.2.686 [id number] [facility] 2022-07-09 08:35:04 2022-07-09 23:59:00 Hospital Encounter Melia Philippe [facility] 1.2840.114 350.1.13.10 4.2.7.2.686 [id number] [facility] 2022-07-09 08:33:40 2022-07-09 08:34:00 Hospital Encounter Melia Philippe [facility] 1.2.840.114 350.1.13.10 4.2.7.2.686 [id number] [facility] 2022-07-09 08:33:23 2022-07-09 08:34:00 Hospital Encounter Melia Philippe [facility] 1.2.840.114 350.1.13.10 4.2.7.2.686 [id number] [facility] 2022-07-09 08:31:24 2022-07-09 08:32:00 Outpatient Richard PHILIPPE GISSELLEANTONIO [facility] [id number] [facility] 2022-07-09 08:00:00 2022-07-09 08:32:00 Hospital Encounter Melia Philippe [facility] 1.2.840.114 350.1.13.10 4.2.7.2.686 [id number] [facility] 2022-06-22 00:00:00 2022-06-22 00:00:00 Perez Salas [facility] 1.2.840.114 350.1.13.10 4.2.7.2.686 [id number] [facility] 2022-06-02 00:00:00 2022-06-02 00:00:00 Outpatient Richard PHILIPPE GISSELLEANTONIO [facility] [id number] [facility] 2022-05-26 08:03:34 2022-05-26 08:03:34 Outpatient [facility] [id number] [place] 2022-05-21 00:00:00 2022-05-21 00:00:00 Telephone Melia PhilippeAmparoGuillaume [facility] 1.2.840.114 350.1.13.10 4.2.7.2.686 [id number] [facility] 2022-05-19 14:10:36 2022-05-19 23:59:00 Outpatient R MELIA PHILIPPE [facility] [id number] [facility] 2022-05-14 00:00:00 2022-05-14 00:00:00 Orders Only Doctor Unassigned, [place] Chapel [facility] 1..840.114 350.1.13.10 4.2.7.2.686 [id number] [facility] 2022-04-24 14:30:00 2022-04-24 15:06:43 Outpatient R MELIA PHILIPPE [facility] [id number] [facility] 2022-04-24 14:30:00 2022-04-24 15:06:43 Office Visit Melia PhilippeAmparoGuillaume [facility] 1.2.840.114 350.1.13.10 4.2.7.2.686 [id number] [facility] 2022-04-20 14:15:00 2022-04-20 14:58:40 Outpatient DOV PEREZ [facility] [id number] [facility] 2022-04-20 14:15:00 2022-04-20 14:58:40 Office Visit Dov [facility] 1..840.114 350.1.13.10 4.2.7.2.686 [id number] [facility] 2022-04-17 10:15:00 2022-04-17 10:15:00 Outpatient DOV PEREZ [facility] [id number] [facility] 2022-04-17 00:00:00 2022-04-17 00:00:00 Orders Only Doctor Unassigned, [place] Chapel [facility] 1.2.840.114 350.1.13.10 4.2.7.2.686 [id number] [facility] 2022-04-17 00:00:00 2022-04-17 00:00:00 Telephone Perez Hollins [facility] 1.2.840.114 350.1.13.10 4.2.7.2.686 [id number] [facility] 2022-04-06 00:00:00 2022-04-06 00:00:00 Telephone Fleming Dov Gibbons [facility] 1.2.840.114 350.1.13.10 4.2.7.2.686 [id number] [facility] 2022-04-03 08:00:00 2022-04-03 08:30:00 Office Visit Bernadette [facility] 1.2.840.114 350.1.13.10 4.2.7.2.686 [id number] [facility] 2022-04-03 08:00:00 2022-04-03 08:00:00 Outpatient Richard FLEMING DOV [facility] [id number] [facility] 2022-04-03 00:00:00 2022-04-03 00:00:00 Orders Only Doctor Unassigned, [place] Chapel [facility] 1.2.840.114 350.1.13.10 4.2.7.2.686 [id number] [facility] 2022-03-25 08:24:32 2022-03-25 08:24:32 Outpatient [facility] [id number] [place] 2022-03-25 00:00:00 2022-03-25 00:00:00 Outpatient Visit [id number] -[id number] ed1-47dd-[id number] 2022-03-23 13:33:40 2022-03-23 13:33:40 Outpatient SFA [facility] [address] [place] 2022-03-21 00:00:00 2022-03-21 00:00:00 Orders Only Doctor Unassigned, Morris Chapel [facility] 1.2.840.114 350.1.13.10 4.2.7.2.686 [id number] [facility] 2022-03-16 09:23:57 2022-03-16 09:23:57 Outpatient SFA [facility] [address] [place] 2022-03-11 08:55:10 2022-03-11 08:55:10 Outpatient SFA [facility] [address] [place] 2022-03-11 00:00:00 2022-03-11 00:00:00 Outpatient Visit [id number] -8666-[id number] 1g4-1v84-3 666-d37d83 [id number] 2022-01-19 12:57:51 2022-01-19 12:57:[address] [place] 2022-01-13 00:00:00 2022-01-13 00:00:00 Outpatient Visit [id number] -jj1s-129 [id number] 86f-4c1c-b j7r-388ew2 2fec32 2021-12-17 00:00:00 2021-12-17 00:00:00 Outpatient Visit [id number]- j81n-06je -[id number] [id number]-o 23d-48ae-a 515-162f1c 4409fd 2021-12-03 00:00:00 2021-12-03 00:00:00 Outpatient Visit [id number] 3gv8-7624 -nv79-m90 [id number]-[id number] ec2-4664-b z41-s80k71 73dcf7 2020-06-17 00:00:00 2020-06-17 00:00:00 Transition of Care Mihir James 1.2840.114 350.1.13.10 4.2.7.2.686 [id number] 2020-06-17 00:00:00 2020-06-17 00:00:00 Transition of Care Mihir James 1.2840.114 350.1.13.10 4.2.7.2.686 [id number] [facility] 2020-06-11 10:30:00 2020-06-15 15:18:00 Hospital Encounter Leonarda Nava Rebecca Williams, Sandra J Lee, Rebecca [facility] 1.0.114 350.1.13.10 4.2.7.2.686 [id number] 2020-06-11 10:30:00 2020-06-15 15:18:00 Inpatient X CARLITOS URIBE [facility] [place] [id number] [facility] 2020-06-11 10:30:00 2020-06-15 15:18:00 Hospital Encounter Leonarda Nava Rebecca Williams, Sandra J Lee, Rebecca [facility] 1.840.114 350.1.13.10 4.2.7.2.686 [id number] [facility] 2020-06-11 00:00:00 2020-06-11 00:00:00 Orders Only Doctor Unassigned, Morris Chapel [facility] 1.840.114 350.1.13.10 4.2.7.2.686 [id number] 2020-06-11 00:00:00 2020-06-11 00:00:00 Orders Only Doctor Unassigned, Morris Chapel [facility] 1.2.840.114 350.1.13.10 4.2.7.2.686 [id number] [facility] Results Test Description Test Time Test Comments Results Result Co mments Source [id number] 00:01:46* Test Item Value Reference Range Interpretation Comme nts NT-proBNP (test code = 05164-7) <=125 Lab Interpretation (test cod e = 10357-9) Normal [facility] [id number] 23:55:40* Test Item Value Reference Range Interpretation Comme nts TROPONIN I (test code = 1217885487) 0.003 ng/mL <=0.034 ISMAEL (test code = ISMAEL) Reference (Normal) Range (defined by the 99th percentile reference limit): <= 0.034 ng/mL Note: Cardiac troponin begins to rise 3-4 hours after the onset of ischemia. Repeat in 4-6 hours if the sample was drawn within 3-4 hours of the onset of the symptom and found normal. Diagnosis of myocardial injury is made with acute changes in cTn concentrations with at least one serial sample above the 99th percentile upper reference limit (URL), taken together with the patient's clinical presentation. Biotin has been reported to cause a negative bias, interpret results relative to patient's use of biotin. Lab Interpretation (test code = 41293-9) Normal [facility] (09136)2023-02-22 23:44:17* Test Item Value Reference Range Interpretation Comme nts NA (test code = 4388993522) 139 mmol/L 135-145 K (test code = 2304059242) 4.1 mmol/L 3.5-5.0 Slight hemolysis CL (test code = 1603642876) 105 mmol/L 98-108 CO2 TOTAL (test code = 7150374445) 23 mmol/L 23-31 AGAP (test code = 5803064578) 11 2-16 BUN (test code = 3492567253) 13 mg/dL 7-23 Slight hemolysis GLUCOSE (test code = 2250189132) 195 mg/dL 70-110 H CREATININE (test code = 4897646797) 0.63 mg/dL 0.50-1.04 TOTAL BILI (test code = 2070278993) 0.4 mg/dL 0.1-1.1 CALCIUM (test code = 8489446705) 9.4 mg/dL 8.6-10.6 T PROTEIN (test code = 1442160820) 8.0 g/dL 6.3-8.2 ALBUMIN (test code = 2527834682) 4.2 g/dL 3.5-5.0 ALK PHOS (test code = 7812202402) 186 U/L 34-122 H Slight hemolysis ALTv (test code = 1742-6) 33 U/L 5-35 AST(SGOT) (test code = 2615045883) 56 U/L 13-40 H Slight hemolysis eGFR (test code = 29053-1) 95.0 mL/min/1.73m2 CKD-EPI eGFR (2020). Assuming creatinine has been stable day-to-day for at least three months, the eGFR indicates Category G1 (>= 90 mL/min/1.73 m2) Lab Interpretation (test code = 81934-6) Abnormal [facility], 25 [id number] 06:48:32* Test Item Value Reference Range Interpretation Comme [facility] VITAMIN D, 25 [place] (test code = 4958) 31 NG/ML SEE BELOW EFFECTIVE 12/2022, PLEASE NOTE NEW METHODOLOGY IS ELECTROCHEMILUMINESCENCE BINDING ASSAY. NOTE: 25-HYDROXYVITAMIN D ASSAY INCLUDES 25-HYDROXYVITAMIN D2 AND D3. INTERPRETIVE RANGES PEDIATRIC (<17 YEARS) . . . . . . . . . . . NG/ML 20-100ADULT: INSUFFICIENT . . . . . . . . . . . . . . NG/ML <20 SUBOPTIMAL . . . . . . . . . . . . . . . NG/ML 20-29 OPTIMAL . . . . . . . . . . . . . . . . . NG/ML 30-100 TSH, THIRD [id number] 06:28:49* Test Item Value Reference Range Interpretation Comme nts TSH, THIRD GENERATION (test code = 2821) 1.860 UIU/ML 0.400-4.100 UNLESS OTHERWISE INDICATED, ALL TESTING PERFORMED AT [facility] [address] [place] [id number] PROJECT DIRECTOR: CESAR SORIANO M.D. CLIA NUMBER [id number] [facility] [place] [place]. [id number] LIPID [id number] 06:28:23* Test Item Value Reference Range Interpretation Comme nts CHOLESTEROL (test code = 2210) 182 MG/DL <200 TRIGLYCERIDES (test code = 2232) 237 MG/DL <150 H HDL CHOLESTEROL (test code = 2220) 43 MG/DL >39 CALC LDL CHOL (test code = 2237) 103 MG/DL <100 H NOTE: CALCULATED LDL IS BASED ON YIMI-VEGA METHOD WHICHINCLUDES ADJUSTABLE TRIGLYCERIDE:VLDL CHOLESTEROL RATIO.THIS FACTOR VARIES BY MEASURED TRIGLYCERIDE AND NON-HDLCHOLESTEROL CONCENTRATIONS WITH INCREASED CALCULATED LDL SEENIN HIGHER TRIGLYCERIDE OR LOWER NON-HDL SPECIMENS. FOR MOREINFORMATION, SEE CLIENT ANNOUNCEMENT AT [email or web address] RATIO LDL/HDL (test code = 2238) 2.40 RATIO <3.22 COMPREHENSIVE METABOLIC [id number] 06:28:23* Test Item Value Reference Range Interpretation Comme nts GLUCOSE (test code = 2217) 98 MG/DL 70-99 BUN (test code = 2208) 9 MG/DL 8-23 CREATININE (test code = 2214) 0.72 MG/DL 0.60-1.30 eGFR (2020 CKD-EPI) (test co de = 64789) 89 ML/MIN/1.73 >60 CALC BUN/CREAT (test code = 2235) 13 RATIO 6-28 SODIUM (test code = 2231) 139 MEQ/L 133-146 POTASSIUM (test code = 2228) 4.4 MEQ/L 3.5-5.4 CHLORIDE (test code = 2215) 104 MEQ/L 95-107 CARBON DIOXIDE (test code = 2206) 23 MEQ/L 19-31 CALCIUM (test code = 2209) 9.1 MG/DL 8.5-10.5 PROTEIN, TOTAL (test code = 222) 7.5 G/DL 6.1-8.3 ALBUMIN (test code = 220) 4.0 G/DL 3.5-5.2 CALC GLOBULIN (test code = 2239) 3.5 G/DL 1.9-3.7 CALC A/G RATIO (test code = 2233) 1.1 RATIO 1.0-2.6 BILIRUBIN, TOTAL (test code = 2206) 0.3 MG/DL <=1.2 ALKALINE PHOSPHATASE (test code = 2203) 102 U/L 40-142 AST (test code = 2217) 40 U/L 9-40 ALT (test code = 2218) 24 U/L 5-40 HEMOGLOBIN [id number] 02:47:53* Test Item Value Reference Range Interpretation Comme nts HEMOGLOBIN A1c (test code = 39288) 7.9 % 4.2-5.6 H [employer] [employer] GUIDELINES FOR HGB A1C: PREDIABETES/INCREASED RISK . . . . . . . 5.7-6.4% DIAGNOSIS OF DIABETES . . . . . . . . . >=6.5% WITH CONFIRMATION OR APPROPRIATE SYMPTOMS NOTE: ASSAY MAY BE AFFECTED BY HEMOGLOBINOPATHIES (SICKLE CELL ANEMIA, S-C DISEASE, OTHERS) OR ARTIFICIALLY LOWERED BY DECREASED RED CELL SURVIVAL (HEMOLYTIC ANEMIAS, BLOOD LOSS, ETC.). CONSIDER ALTERNATE TESTING OR LABORATORY CONSULTATION. CBC W/AUTO DIFF WITH [id number] 02:27:25* Test Item Value Reference Range Interpretation Comme nts WBC (test code = 1001) 5.6 K/UL 3.5-11.0 RBC (test code = 1002) 4.39 M/UL 3.80-5.40 HEMOGLOBIN (test code = 1003) 12.6 G/DL 11.5-15.5 HEMATOCRIT (test code = 1004) 38.6 % 34.0-45.0 MCV (test code = 1005) 87.9 fL 80.0-99.0 MCH (test code = 1006) 28.7 PG 25.0-33.0 MCHC (test code = 1007) 32.6 G/DL 31.0-36.0 RDW (test code = 1038) 14.8 % 11.5-15.0 NEUTROPHILS (test code = 1008) 75.7 % LYMPHOCYTES (test code = 1010) 15.5 % MONOCYTES (test code = 1011) 6.3 % EOSINOPHILS (test code = 1012) 1.8 % BASOPHILS (test code = 1013) 0.2 % IMMATURE GRANULOCYTES (test code = 1036) 0.5 % NUCLEATED RBCS (test code = 1065) 0.0 /100 WBC'S See_Comment [Automated messa ge] The system which generated this result transmitted reference range: 0.0. The reference range was not used to interpret this result as normal/abnormal. PLATELET COUNT (test code = 1015) 137 K/UL 130-400 ABSOLUTE NEUTROPHILS (test code = 1066) 4.20 K/UL 1.50-7.50 ABSOLUTE LYMPHOCYTES (test code = 1067) 0.86 K/UL 1.00-4.00 L ABSOLUTE MONOCYTES (test code = 1068) 0.35 K/UL 0.20-1.00 ABSOLUTE EOSINOPHILS (test code = 1040) 0.10 K/UL 0.00-0.50 ABSOLUTE BASOPHILS (test code = 1069) 0.01 K/UL 0.00-0.20 ABS IMMATURE GRANULOCYTES (test code = 1020) 0.03 K/UL 0.00-0.10 ABS NUCLEATED RBCS (test code = 30241) 0.00 K/UL 0.00-0.11 CBC W/AUTO [id number] 00:00:00* Test Item Value Reference Range Interpretation Comme nts WBC (test code = 1001) 5.6 K/UL RBC (test code = 1002) 4.39 M/UL HEMOGLOBIN (test code = 1003) 12.6 G/DL HEMATOCRIT (test code = 1004) 38.6 % MCV (test code = 1005) 87.9 fL MCH (test code = 1006) 28.7 PG MCHC (test code = 1007) 32.6 G/DL RDW (test code = 1038) 14.8 % NEUTROPHILS (test code = 1008) 75.7 % LYMPHOCYTES (test code = 1010) 15.5 % MONOCYTES (test code = 1011) 6.3 % EOSINOPHILS (test code = 1012) 1.8 % BASOPHILS (test code = 1013) 0.2 % IMMATURE GRANULOCYTES (test code = 1036) 0.5 % NUCLEATED RBCS (test code = 1065) 0.0 /100WBC'S PLATELET COUNT (test code = 1015) 137 K/UL ABSOLUTE NEUTROPHILS (test c ode = 1066) 4.20 K/UL ABSOLUTE LYMPHOCYTES (test c ode = 1067) 0.86 K/UL ABSOLUTE MONOCYTES (test cod e = 1068) 0.35 K/UL ABSOLUTE EOSINOPHILS (test c ode = 1040) 0.10 K/UL ABSOLUTE BASOPHILS (test cod e = 1069) 0.01 K/UL ABS IMMATURE GRANULOCYTES (t est code = 1020) 0.03 K/UL ABS NUCLEATED RBCS (test cod e = 53163) 0.00 K/UL Lane TafoyaHEMOGLOBIN [id number] 00:00:00* Test Item Value Reference Range Interpretation Comme nts HEMOGLOBIN A1c (test code = 24646) 7.9 % Lane TafoyaLIPID [id number] 00:00:00* Test Item Value Reference Range Interpretation Comme nts CHOLESTEROL (test code = 2210) 182 MG/DL TRIGLYCERIDES (test code = 2232) 237 MG/DL HDL CHOLESTEROL (test code = 2220) 43 MG/DL CALC LDL CHOL (test code = 2237) 103 MG/DL RISK RATIO LDL/HDL (test cod e = 2238) 2.[address] TafoyaCOMPREHENSIVE METABOLIC [id number] 00:00:00* Test Item Value Reference Range Interpretation Comme nts GLUCOSE (test code = 2217) 98 MG/DL BUN (test code = 2208) 9 MG/DL CREATININE (test code = 2214) 0.72 MG/DL eGFR (2020 CKD-EPI) (test co de = 37397) 89 ML/MIN/1.73 CALC BUN/CREAT (test code = 2235) 13 RATIO SODIUM (test code = 2231) 139 MEQ/L POTASSIUM (test code = 2228) 4.4 MEQ/L CHLORIDE (test code = 2215) 104 MEQ/L CARBON DIOXIDE (test code = 2206) 23 MEQ/L CALCIUM (test code = 2209) 9.1 MG/DL PROTEIN, TOTAL (test code = 2229) 7.5 G/DL ALBUMIN (test code = 2201) 4.0 G/DL CALC GLOBULIN (test code = 2240) 3.5 G/DL CALC A/G RATIO (test code = 2234) 1.1 RATIO BILIRUBIN, TOTAL (test code = 2207) 0.3 MG/DL ALKALINE PHOSPHATASE (test code = 2204) 102 U/L AST (test code = 2218) 40 U/L ALT (test code = 2219) 24 U/L Lane TafoyaVITAMIN D, 25 [id number] 00:00:00* Test Item Value Reference Range Interpretation Comme nts VITAMIN D, 25 [place] (test code = 4958) 31 NG/ML Lane TafoyaTSH, THIRD [id number] 00:00:00* Test Item Value Reference Range Interpretation Comme nts TSH, THIRD GENERATION (test code = 2821) 1.860 UIU/ML Lane TafoyaCBC W/AUTO [id number] 00:00:00* Test Item Value Reference Range Interpretation Comme nts WBC (test code = 1001) 5.6 K/UL RBC (test code = 1002) 4.39 M/UL HEMOGLOBIN (test code = 1003) 12.6 G/DL HEMATOCRIT (test code = 1004) 38.6 % MCV (test code = 1005) 87.9 fL MCH (test code = 1006) 28.7 PG MCHC (test code = 1007) 32.6 G/DL RDW (test code = 1038) 14.8 % NEUTROPHILS (test code = 1008) 75.7 % LYMPHOCYTES (test code = 1010) 15.5 % MONOCYTES (test code = 1011) 6.3 % EOSINOPHILS (test code = 1012) 1.8 % BASOPHILS (test code = 1013) 0.2 % IMMATURE GRANULOCYTES (test code = 1036) 0.5 % NUCLEATED RBCS (test code = 1065) 0.0 /100WBC'S PLATELET COUNT (test code = 1015) 137 K/UL ABSOLUTE NEUTROPHILS (test c ode = 1066) 4.20 K/UL ABSOLUTE LYMPHOCYTES (test c ode = 1067) 0.86 K/UL ABSOLUTE MONOCYTES (test cod e = 1068) 0.35 K/UL ABSOLUTE EOSINOPHILS (test c ode = 1040) 0.10 K/UL ABSOLUTE BASOPHILS (test cod e = 1069) 0.01 K/UL ABS IMMATURE GRANULOCYTES (t est code = 1020) 0.03 K/UL ABS NUCLEATED RBCS (test cod e = 21664) 0.00 K/UL Lane TafoyaHEMOGLOBIN [id number] 00:00:00* Test Item Value Reference Range Interpretation Comme nts HEMOGLOBIN A1c (test code = 37298) 7.9 % Lane TafoyaLIPID [id number] 00:00:00* Test Item Value Reference Range Interpretation Comme nts CHOLESTEROL (test code = 2210) 182 MG/DL TRIGLYCERIDES (test code = 2232) 237 MG/DL HDL CHOLESTEROL (test code = 2220) 43 MG/DL CALC LDL CHOL (test code = 2237) 103 MG/DL RISK RATIO LDL/HDL (test cod e = 2238) 2.[address] TafoyaCOMPREHENSIVE METABOLIC [id number] 00:00:00* Test Item Value Reference Range Interpretation Comme nts GLUCOSE (test code = 2217) 98 MG/DL BUN (test code = 2208) 9 MG/DL CREATININE (test code = 2214) 0.72 MG/DL eGFR (2020 CKD-EPI) (test co de = 00963) 89 ML/MIN/1.73 CALC BUN/CREAT (test code = 2235) 13 RATIO SODIUM (test code = 2231) 139 MEQ/L POTASSIUM (test code = 2228) 4.4 MEQ/L CHLORIDE (test code = 2215) 104 MEQ/L CARBON DIOXIDE (test code = 2206) 23 MEQ/L CALCIUM (test code = 2209) 9.1 MG/DL PROTEIN, TOTAL (test code = 2229) 7.5 G/DL ALBUMIN (test code = 2201) 4.0 G/DL CALC GLOBULIN (test code = 2240) 3.5 G/DL CALC A/G RATIO (test code = 2234) 1.1 RATIO BILIRUBIN, TOTAL (test code = 2207) 0.3 MG/DL ALKALINE PHOSPHATASE (test code = 2204) 102 U/L AST (test code = 2218) 40 U/L ALT (test code = 2219) 24 U/L Lane TafoyaVITAMIN D, 25 [id number] 00:00:00* Test Item Value Reference Range Interpretation Comme nts VITAMIN D, 25 [place] (test code = 4958) 31 NG/ML Lane TafoyaTSH, THIRD [id number] 00:00:00* Test Item Value Reference Range Interpretation Comme nts TSH, THIRD GENERATION (test code = 2821) 1.860 UIU/ML Lane TafoyaCBC W/AUTO [id number] 00:00:00* Test Item Value Reference Range Interpretation Comme nts WBC (test code = 1001) 5.6 K/UL RBC (test code = 1002) 4.39 M/UL HEMOGLOBIN (test code = 1003) 12.6 G/DL HEMATOCRIT (test code = 1004) 38.6 % MCV (test code = 1005) 87.9 fL MCH (test code = 1006) 28.7 PG MCHC (test code = 1007) 32.6 G/DL RDW (test code = 1038) 14.8 % NEUTROPHILS (test code = 1008) 75.7 % LYMPHOCYTES (test code = 1010) 15.5 % MONOCYTES (test code = 1011) 6.3 % EOSINOPHILS (test code = 1012) 1.8 % BASOPHILS (test code = 1013) 0.2 % IMMATURE GRANULOCYTES (test code = 1036) 0.5 % NUCLEATED RBCS (test code = 1065) 0.0 /100WBC'S PLATELET COUNT (test code = 1015) 137 K/UL ABSOLUTE NEUTROPHILS (test c ode = 1066) 4.20 K/UL ABSOLUTE LYMPHOCYTES (test c ode = 1067) 0.86 K/UL ABSOLUTE MONOCYTES (test cod e = 1068) 0.35 K/UL ABSOLUTE EOSINOPHILS (test c ode = 1040) 0.10 K/UL ABSOLUTE BASOPHILS (test cod e = 1069) 0.01 K/UL ABS IMMATURE GRANULOCYTES (t est code = 1020) 0.03 K/UL ABS NUCLEATED RBCS (test cod e = 05922) 0.00 K/UL Lane TafoyaHEMOGLOBIN [id number] 00:00:00* Test Item Value Reference Range Interpretation Comme nts HEMOGLOBIN A1c (test code = 57380) 7.9 % Lane TafoyaLIPID [id number] 00:00:00* Test Item Value Reference Range Interpretation Comme nts CHOLESTEROL (test code = 2210) 182 MG/DL TRIGLYCERIDES (test code = 2232) 237 MG/DL HDL CHOLESTEROL (test code = 2220) 43 MG/DL CALC LDL CHOL (test code = 2237) 103 MG/DL RISK RATIO LDL/HDL (test cod e = 2238) 2.[address] TafoyaCOMPREHENSIVE METABOLIC [id number] 00:00:00* Test Item Value Reference Range Interpretation Comme [facility] GLUCOSE (test code = 2217) 98 MG/DL BUN (test code = 2208) 9 MG/DL CREATININE (test code = 2214) 0.72 MG/DL eGFR (2020 CKD-EPI) (test co de = 85593) 89 ML/MIN/1.73 CALC BUN/CREAT (test code = 2235) 13 RATIO SODIUM (test code = 2231) 139 MEQ/L POTASSIUM (test code = 2228) 4.4 MEQ/L CHLORIDE (test code = 2215) 104 MEQ/L CARBON DIOXIDE (test code = 2206) 23 MEQ/L CALCIUM (test code = 2209) 9.1 MG/DL PROTEIN, TOTAL (test code = 2229) 7.5 G/DL ALBUMIN (test code = 2201) 4.0 G/DL CALC GLOBULIN (test code = 2240) 3.5 G/DL CALC A/G RATIO (test code = 2234) 1.1 RATIO BILIRUBIN, TOTAL (test code = 2207) 0.3 MG/DL ALKALINE PHOSPHATASE (test code = 2204) 102 U/L AST (test code = 2218) 40 U/L ALT (test code = 2219) 24 U/L Lane TafoyaVITAMIN D, 25 [id number] 00:00:00* Test Item Value Reference Range Interpretation Comme [facility] VITAMIN D, 25 [place] (test code = 4958) 31 NG/ML Lane TafoyaTSH, THIRD [id number] 00:00:00* Test Item Value Reference Range Interpretation Comme [facility] TSH, THIRD GENERATION (test code = 2821) 1.860 UIU/ML Lane TafoyaVITAMIN D, 25 [id number] 11:07:15* Test Item Value Reference Range Interpretation Comme [facility] VITAMIN D, 25 [place] (test code = 4958) 30 NG/ML SEE BELOW EFFECTIVE 12/2022, PLEASE NOTE NEW METHODOLOGY IS ELECTROCHEMILUMINESCENCE BINDING ASSAY. NOTE: 25-HYDROXYVITAMIN D ASSAY INCLUDES 25-HYDROXYVITAMIN D2 AND D3. INTERPRETIVE RANGES PEDIATRIC (<17 YEARS) . . . . . . . . . . . NG/ML 20-100ADULT: INSUFFICIENT . . . . . . . . . . . . . . NG/ML <20 SUBOPTIMAL . . . . . . . . . . . . . . . NG/ML 20-29 OPTIMAL . . . . . . . . . . . . . . . . . NG/ML 30-100 UNLESS OTHERWISE INDICATED, ALL TESTING PERFORMED AT [facility] [address] [place] [address] PROJECT DIRECTOR: CESAR SORIANO M.D. [place] NUMBER [id number] [facility] [place]. [id number] LIPID [id number] 10:07:08* Test Item Value Reference Range Interpretation Comme nts CHOLESTEROL (test code = 2210) 182 MG/DL <200 TRIGLYCERIDES (test code = 2232) 197 MG/DL <150 H HDL CHOLESTEROL (test code = 2220) 44 MG/DL >39 CALC LDL CHOL (test code = 2237) 106 MG/DL <100 H NOTE: CALCULATED LDL IS BASED ON YIMI-VEGA METHOD WHICHINCLUDES ADJUSTABLE TRIGLYCERIDE:VLDL CHOLESTEROL RATIO.THIS FACTOR VARIES BY MEASURED TRIGLYCERIDE AND NON-HDLCHOLESTEROL CONCENTRATIONS WITH INCREASED CALCULATED LDL SEENIN HIGHER TRIGLYCERIDE OR LOWER NON-HDL SPECIMENS. FOR MOREINFORMATION, SEE CLIENT ANNOUNCEMENT AT [email or web address] RISK RATIO LDL/HDL (test code = 2238) 2.41 RATIO <3.22 COMPREHENSIVE METABOLIC [id number] 10:07:08* Test Item Value Reference Range Interpretation Comme nts GLUCOSE (test code = 2217) 140 MG/DL 70-99 H BUN (test code = 2208) 14 MG/DL 8-23 CREATININE (test code = 2214) 0.71 MG/DL 0.60-1.30 eGFR (2020 CKD-EPI) (test code = 89211) 91 ML/MIN/1.73 >60 CALC BUN/CREAT (test code = 2235) 20 RATIO 6-28 SODIUM (test code = 2231) 142 MEQ/L 133-146 POTASSIUM (test code = 2228) 4.0 MEQ/L 3.5-5.4 CHLORIDE (test code = 2215) 105 MEQ/L 95-107 CARBON DIOXIDE (test code = 2206) 24 MEQ/L 19-31 CALCIUM (test code = 2209) 9.0 MG/DL 8.5-10.5 PROTEIN, TOTAL (test code = 2228) 7.5 G/DL 6.1-8.3 ALBUMIN (test code = 2200) 4.3 G/DL 3.5-5.2 CALC GLOBULIN (test code = 2239) 3.2 G/DL 1.9-3.7 CALC A/G RATIO (test code = 2233) 1.3 RATIO 1.0-2.6 BILIRUBIN, TOTAL (test code = 2206) 0.2 MG/DL See_Comment [Automated me ssage] The system which generated this result transmitted reference range: <=1.2. The reference range was not used to interpret this result as normal/abnormal. ALKALINE PHOSPHATASE (test code = 2203) 110 U/L 40-142 AST (test code = 2217) 26 U/L 9-40 ALT (test code = 221) 18 U/L 5-40 [id number] 09:46:44* Test Item Value Reference Range Interpretation Comme nts MAGNESIUM (test code = 2226) 1.9 MG/DL 1.6-2.6 HEMOGLOBIN [id number] 04:42:50* Test Item Value Reference Range Interpretation Comme nts HEMOGLOBIN A1c (test code = 69677) 8.3 % 4.2-5.6 H [employer] [employer] GUIDELINES FOR HGB A1C: PREDIABETES/INCREASED RISK . . . . . . . 5.7-6.4% DIAGNOSIS OF DIABETES . . . . . . . . . >=6.5% WITH CONFIRMATION OR APPROPRIATE SYMPTOMS NOTE: ASSAY MAY BE AFFECTED BY HEMOGLOBINOPATHIES (SICKLE CELL ANEMIA, S-C DISEASE, OTHERS) OR ARTIFICIALLY LOWERED BY DECREASED RED CELL SURVIVAL (HEMOLYTIC ANEMIAS, BLOOD LOSS, ETC.). CONSIDER ALTERNATE TESTING OR LABORATORY CONSULTATION. CBC W/AUTO DIFF WITH [id number] 03:59:33* Test Item Value Reference Range Interpretation Comme nts WBC (test code = 1001) 6.9 K/UL 3.5-11.0 RBC (test code = 1002) 4.77 M/UL 3.80-5.40 HEMOGLOBIN (test code = 1003) 13.3 G/DL 11.5-15.5 HEMATOCRIT (test code = 1004) 40.5 % 34.0-45.0 MCV (test code = 1005) 84.9 fL 80.0-99.0 MCH (test code = 1006) 27.9 PG 25.0-33.0 MCHC (test code = 1007) 32.8 G/DL 31.0-36.0 RDW (test code = 1038) 14.7 % 11.5-15.0 NEUTROPHILS (test code = 1008) 75.9 % LYMPHOCYTES (test code = 1010) 14.6 % MONOCYTES (test code = 1011) 6.9 % EOSINOPHILS (test code = 1012) 1.9 % BASOPHILS (test code = 1013) 0.1 % IMMATURE GRANULOCYTES (test code = 1036) 0.6 % NUCLEATED RBCS (test code = 1065) 0.0 /100 WBC'S See_Comment [Automated messa ge] The system which generated this result transmitted reference range: 0.0. The reference range was not used to interpret this result as normal/abnormal. PLATELET COUNT (test code = 1015) 138 K/UL 130-400 ABSOLUTE NEUTROPHILS (test code = 1066) 5.24 K/UL 1.50-7.50 ABSOLUTE LYMPHOCYTES (test code = 1067) 1.01 K/UL 1.00-4.00 ABSOLUTE MONOCYTES (test code = 1068) 0.48 K/UL 0.20-1.00 ABSOLUTE EOSINOPHILS (test code = 1040) 0.13 K/UL 0.00-0.50 ABSOLUTE BASOPHILS (test code = 1069) 0.01 K/UL 0.00-0.20 ABS IMMATURE GRANULOCYTES (test code = 1020) 0.04 K/UL 0.00-0.10 ABS NUCLEATED RBCS (test code = 53914) 0.00 K/UL 0.00-0.11 HEMOGLOBIN [id number] 00:00:00* Test Item Value Reference Range Interpretation Comme nts HEMOGLOBIN A1c (test code = 91183) 8.3 % Lane F AustinLIPID [id number] 00:00:00* Test Item Value Reference Range Interpretation Comme nts CHOLESTEROL (test code = 2210) 182 MG/DL TRIGLYCERIDES (test code = 2232) 197 MG/DL HDL CHOLESTEROL (test code = 2220) 44 MG/DL CALC LDL CHOL (test code = 2237) 106 MG/DL RISK RATIO LDL/HDL (test cod e = 2238) 2.[address] TafoyaCOMPREHENSIVE METABOLIC [id number] 00:00:00* Test Item Value Reference Range Interpretation Comme nts GLUCOSE (test code = 2217) 140 MG/DL BUN (test code = 2208) 14 MG/DL CREATININE (test code = 2214) 0.71 MG/DL eGFR (2020 CKD-EPI) (test co de = 53418) 91 ML/MIN/1.73 CALC BUN/CREAT (test code = 2235) 20 RATIO SODIUM (test code = 2231) 142 MEQ/L POTASSIUM (test code = 2228) 4.0 MEQ/L CHLORIDE (test code = 2215) 105 MEQ/L CARBON DIOXIDE (test code = 2206) 24 MEQ/L CALCIUM (test code = 2209) 9.0 MG/DL PROTEIN, TOTAL (test code = 2229) 7.5 G/DL ALBUMIN (test code = 2201) 4.3 G/DL CALC GLOBULIN (test code = 2240) 3.2 G/DL CALC A/G RATIO (test code = 2234) 1.3 RATIO BILIRUBIN, TOTAL (test code = 2207) 0.2 MG/DL ALKALINE PHOSPHATASE (test code = 2204) 110 U/L AST (test code = 2218) 26 U/L ALT (test code = 2219) 18 U/L Lane [id number] 00:00:00* Test Item Value Reference Range Interpretation Comme mitali MAGNESIUM (test code = 2226) 1.9 MG/DL Lane TafoyaVITAMIN D, 25 [id number] 00:00:00* Test Item Value Reference Range Interpretation Comme nts VITAMIN D, 25 [place] (test code = 4958) 30 NG/ML Lane TafoyaCBC W/AUTO [id number] 00:00:00* Test Item Value Reference Range Interpretation Comme nts WBC (test code = 1001) 6.9 K/UL RBC (test code = 1002) 4.77 M/UL HEMOGLOBIN (test code = 1003) 13.3 G/DL HEMATOCRIT (test code = 1004) 40.5 % MCV (test code = 1005) 84.9 fL MCH (test code = 1006) 27.9 PG MCHC (test code = 1007) 32.8 G/DL RDW (test code = 1038) 14.7 % NEUTROPHILS (test code = 1008) 75.9 % LYMPHOCYTES (test code = 1010) 14.6 % MONOCYTES (test code = 1011) 6.9 % EOSINOPHILS (test code = 1012) 1.9 % BASOPHILS (test code = 1013) 0.1 % IMMATURE GRANULOCYTES (test code = 1036) 0.6 % NUCLEATED RBCS (test code = 1065) 0.0 /100WBC'S PLATELET COUNT (test code = 1015) 138 K/UL ABSOLUTE NEUTROPHILS (test c ode = 1066) 5.24 K/UL ABSOLUTE LYMPHOCYTES (test c ode = 1067) 1.01 K/UL ABSOLUTE MONOCYTES (test cod e = 1068) 0.48 K/UL ABSOLUTE EOSINOPHILS (test c ode = 1040) 0.13 K/UL ABSOLUTE BASOPHILS (test cod e = 1069) 0.01 K/UL ABS IMMATURE GRANULOCYTES (t est code = 1020) 0.04 K/UL ABS NUCLEATED RBCS (test cod e = 55499) 0.00 K/UL Lane TafoyaHEMOGLOBIN [id number] 00:00:00* Test Item Value Reference Range Interpretation Comme nts HEMOGLOBIN A1c (test code = 95250) 8.3 % Lane TafoyaLIPID [id number] 00:00:00* Test Item Value Reference Range Interpretation Comme nts CHOLESTEROL (test code = 2210) 182 MG/DL TRIGLYCERIDES (test code = 2232) 197 MG/DL HDL CHOLESTEROL (test code = 2220) 44 MG/DL CALC LDL CHOL (test code = 2237) 106 MG/DL RISK RATIO LDL/HDL (test cod e = 2238) 2.[address] TafoyaCOMPREHENSIVE METABOLIC [id number] 00:00:00* Test Item Value Reference Range Interpretation Comme nts GLUCOSE (test code = 2217) 140 MG/DL BUN (test code = 2208) 14 MG/DL CREATININE (test code = 2214) 0.71 MG/DL eGFR (2020 CKD-EPI) (test co de = 76833) 91 ML/MIN/1.73 CALC BUN/CREAT (test code = 2235) 20 RATIO SODIUM (test code = 2231) 142 MEQ/L POTASSIUM (test code = 2228) 4.0 MEQ/L CHLORIDE (test code = 2215) 105 MEQ/L CARBON DIOXIDE (test code = 2206) 24 MEQ/L CALCIUM (test code = 2209) 9.0 MG/DL PROTEIN, TOTAL (test code = 2229) 7.5 G/DL ALBUMIN (test code = 2201) 4.3 G/DL CALC GLOBULIN (test code = 2240) 3.2 G/DL CALC A/G RATIO (test code = 2234) 1.3 RATIO BILIRUBIN, TOTAL (test code = 2207) 0.2 MG/DL ALKALINE PHOSPHATASE (test code = 2204) 110 U/L AST (test code = 2218) 26 U/L ALT (test code = 2219) 18 U/L Lane [id number] 00:00:00* Test Item Value Reference Range Interpretation Comme nts MAGNESIUM (test code = 2226) 1.9 MG/DL Lane TafoyaVITAMIN D, 25 [id number] 00:00:00* Test Item Value Reference Range Interpretation Comme nts VITAMIN D, 25 [place] (test code = 4958) 30 NG/ML Lane TafoyaCBC W/AUTO [id number] 00:00:00* Test Item Value Reference Range Interpretation Comme nts WBC (test code = 1001) 6.9 K/UL RBC (test code = 1002) 4.77 M/UL HEMOGLOBIN (test code = 1003) 13.3 G/DL HEMATOCRIT (test code = 1004) 40.5 % MCV (test code = 1005) 84.9 fL MCH (test code = 1006) 27.9 PG MCHC (test code = 1007) 32.8 G/DL RDW (test code = 1038) 14.7 % NEUTROPHILS (test code = 1008) 75.9 % LYMPHOCYTES (test code = 1010) 14.6 % MONOCYTES (test code = 1011) 6.9 % EOSINOPHILS (test code = 1012) 1.9 % BASOPHILS (test code = 1013) 0.1 % IMMATURE GRANULOCYTES (test code = 1036) 0.6 % NUCLEATED RBCS (test code = 1065) 0.0 /100WBC'S PLATELET COUNT (test code = 1015) 138 K/UL ABSOLUTE NEUTROPHILS (test c ode = 1066) 5.24 K/UL ABSOLUTE LYMPHOCYTES (test c ode = 1067) 1.01 K/UL ABSOLUTE MONOCYTES (test cod e = 1068) 0.48 K/UL ABSOLUTE EOSINOPHILS (test c ode = 1040) 0.13 K/UL ABSOLUTE BASOPHILS (test cod e = 1069) 0.01 K/UL ABS IMMATURE GRANULOCYTES (t est code = 1020) 0.04 K/UL ABS NUCLEATED RBCS (test cod e = 26469) 0.00 K/UL Lane TafoyaHEMOGLOBIN [id number] 00:00:00* Test Item Value Reference Range Interpretation Comme nts HEMOGLOBIN A1c (test code = 60332) 8.3 % Lane TafoyaLIPID [id number] 00:00:00* Test Item Value Reference Range Interpretation Comme nts CHOLESTEROL (test code = 2210) 182 MG/DL TRIGLYCERIDES (test code = 2232) 197 MG/DL HDL CHOLESTEROL (test code = 2220) 44 MG/DL CALC LDL CHOL (test code = 2237) 106 MG/DL RISK RATIO LDL/HDL (test cod e = 2238) 2.[address] TafyoaCOMPREHENSIVE METABOLIC [id number] 00:00:00* Test Item Value Reference Range Interpretation Comme nts GLUCOSE (test code = 2217) 140 MG/DL BUN (test code = 2208) 14 MG/DL CREATININE (test code = 2214) 0.71 MG/DL eGFR (2020 CKD-EPI) (test co de = 61520) 91 ML/MIN/1.73 CALC BUN/CREAT (test code = 2235) 20 RATIO SODIUM (test code = 2231) 142 MEQ/L POTASSIUM (test code = 2228) 4.0 MEQ/L CHLORIDE (test code = 2215) 105 MEQ/L CARBON DIOXIDE (test code = 2206) 24 MEQ/L CALCIUM (test code = 2209) 9.0 MG/DL PROTEIN, TOTAL (test code = 2229) 7.5 G/DL ALBUMIN (test code = 2201) 4.3 G/DL CALC GLOBULIN (test code = 2240) 3.2 G/DL CALC A/G RATIO (test code = 2234) 1.3 RATIO BILIRUBIN, TOTAL (test code = 2207) 0.2 MG/DL ALKALINE PHOSPHATASE (test code = 2204) 110 U/L AST (test code = 2218) 26 U/L ALT (test code = 2219) 18 U/L Lane [id number] 00:00:00* Test Item Value Reference Range Interpretation Comme nts MAGNESIUM (test code = 2226) 1.9 MG/DL Lane TafoyaVITAMIN D, 25 [id number] 00:00:00* Test Item Value Reference Range Interpretation Comme nts VITAMIN D, 25 OH (test code = 4958) 30 NG/ML Lane TafoyaCBC W/AUTO [id number] 00:00:00* Test Item Value Reference Range Interpretation Comme nts WBC (test code = 1001) 6.9 K/UL RBC (test code = 1002) 4.77 M/UL HEMOGLOBIN (test code = 1003) 13.3 G/DL HEMATOCRIT (test code = 1004) 40.5 % MCV (test code = 1005) 84.9 fL MCH (test code = 1006) 27.9 PG MCHC (test code = 1007) 32.8 G/DL RDW (test code = 1038) 14.7 % NEUTROPHILS (test code = 1008) 75.9 % LYMPHOCYTES (test code = 1010) 14.6 % MONOCYTES (test code = 1011) 6.9 % EOSINOPHILS (test code = 1012) 1.9 % BASOPHILS (test code = 1013) 0.1 % IMMATURE GRANULOCYTES (test code = 1036) 0.6 % NUCLEATED RBCS (test code = 1065) 0.0 /100WBC'S PLATELET COUNT (test code = 1015) 138 K/UL ABSOLUTE NEUTROPHILS (test c ode = 1066) 5.24 K/UL ABSOLUTE LYMPHOCYTES (test c ode = 1067) 1.01 K/UL ABSOLUTE MONOCYTES (test cod e = 1068) 0.48 K/UL ABSOLUTE EOSINOPHILS (test c ode = 1040) 0.13 K/UL ABSOLUTE BASOPHILS (test cod e = 1069) 0.01 K/UL ABS IMMATURE GRANULOCYTES (t est code = 1020) 0.04 K/UL ABS NUCLEATED RBCS (test cod e = 69626) 0.00 K/UL Lane TafoyaLEEP. METABOLIC PANEL (26680)[id number] 16:29:34* Test Item Value Reference Range Interpretation Comme nts NA (test code = 0633600569) 139 mmol/L 135-145 K (test code = 7391956889) 3.8 mmol/L 3.5-5.0 CL (test code = 0608763074) 102 mmol/L 98-108 CO2 TOTAL (test code = 8738809460) 29 mmol/L 23-31 AGAP (test code = 0718045953) 8 2-16 BUN (test code = 9987588762) 6 mg/dL 7-23 L GLUCOSE (test code = 7313152019) 143 mg/dL 70-110 H CREATININE (test code = 2265213537) 0.53 mg/dL 0.50-1.04 TOTAL BILI (test code = 9474700209) 1.0 mg/dL 0.1-1.1 CALCIUM (test code = 6448697122) 8.8 mg/dL 8.6-10.6 T PROTEIN (test code = 6223073556) 8.2 g/dL 6.3-8.2 ALBUMIN (test code = 2614296743) 4.4 g/dL 3.5-5.0 ALK PHOS (test code = 3939661100) 94 U/L 34-122 ALTv (test code = 1742-6) 28 U/L 5-35 AST(SGOT) (test code = 9166537759) 40 U/L 13-40 eGFR (test code = 1035436069) 114.0 mL/min/1.73m2 ISMAEL (test code = ISMAEL) Association of [...] or abnormalities in imaging tests). Lab Interpretation (test code = 82262-7) [facility]* Test Item Value Reference Range Interpretation Comme nts LIPASE (test code = 4852615601) 42 U/L 0-220 Lab Interpretation (test cod e = 30296-1) Normal [facility] WITH [id number] 16:24:12* Test Item Value Reference Range Interpretation Comme nts WBC (test code = 6690-2) 9.84 See_Comment [Automated [employer]] The system which generated this result transmitted reference range: 4.30 - 11.10 10*3/?L. The reference range was not used to interpret this result as normal/abnormal. RBC (test code = 789-8) 4.83 See_Comment [Automated [email or web address]] The system which generated this result transmitted reference range: 3.93 - 5.25 10*6/?L. The reference range was not used to interpret this result as normal/abnormal. HGB (test code = 718-7) 13.5 g/dL 11.6-15.0 HCT (test code = 4544-3) 42.1 % 35.7-45.2 MCV (test code = 787-2) 87.2 fL 80.6-95.5 MCH (test code = 785-6) 28.0 pg 25.9-32.8 MCHC (test code = 786-4) 32.1 g/dL 31.6-35.1 RDW-SD (test code = 70151-0) 45.4 fL 39.0-49.9 RDW-CV (test code = 788-0) 14.3 % 12.0-15.5 PLT (test code = 777-3) 156 See_Comment L [Automated messa ge] The system which generated this result transmitted reference range: 166 - 358 10*3/?L. The reference range was not used to interpret this result as normal/abnormal. MPV (test code = 22533-6) 12.0 fL 9.5-12.9 NRBC/100 WBC (test code = 5759195369) 0.0 See_Comment [Automated Solmentum ssage] The system which generated this result transmitted reference range: 0.0 - 10.0 /100 WBCs. The reference range was not used to interpret this result as normal/abnormal. NRBC x10^3 (test code = 7220418122) See_Comment [Automated messa ge] The system which generated this result transmitted reference range: 10*3/?L. The reference range was not used to interpret this result as normal/abnormal. GRAN MAT (NEUT) % (test code = 770-8) 77.0 % IMM GRAN % (test code = 2044171236) 1.00 % LYMPH % (test code = 736-9) 14.2 % MONO % (test code = 5905-5) 6.7 % EOS % (test code = 713-8) 0.9 % BASO % (test code = 706-2) 0.2 % GRAN MAT x10^3(ANC) (test code = 5565225252) 7.57 10*3/uL 1.88-7.09 H IMM GRAN x10^3 (test code = 1680157681) 0.10 10*3/uL 0.00-0.06 H LYMPH x10^3 (test code = 731-0) 1.40 10*3/uL 1.32-3.29 MONO x10^3 (test code = 742-7) 0.66 10*3/uL 0.33-0.92 EOS x10^3 (test code = 711-2) 0.09 10*3/uL 0.03-0.39 BASO x10^3 (test code = 704-7) 0.01-0.07 Lab Interpretation (test code = 81951-8) Abnormal [facility] WITH [id number] 19:58:11* Test Item Value Reference Range Interpretation Comme nts WBC (test code = 6690-2) 6.21 See_Comment [Automated messa ge] The system which generated this result transmitted reference range: 4.30 - 11.10 10*3/?L. The reference range was not used to interpret this result as normal/abnormal. RBC (test code = 789-8) 4.49 See_Comment [Automated messa ge] The system which generated this result transmitted reference range: 3.93 - 5.25 10*6/?L. The reference range was not used to interpret this result as normal/abnormal. HGB (test code = 718-7) 13.0 g/dL 11.6-15.0 HCT (test code = 4544-3) 39.9 % 35.7-45.2 MCV (test code = 787-2) 88.9 fL 80.6-95.5 MCH (test code = 785-6) 29.0 pg 25.9-32.8 MCHC (test code = 786-4) 32.6 g/dL 31.6-35.1 RDW-SD (test code = 80755-9) 44.4 fL 39.0-49.9 RDW-CV (test code = 788-0) 13.9 % 12.0-15.5 PLT (test code = 777-3) 113 See_Comment L [Automated messa ge] The system which generated this result transmitted reference range: 166 - 358 10*3/?L. The reference range was not used to interpret this result as normal/abnormal. MPV (test code = 55844-5) 12.6 fL 9.5-12.9 IPF % (test code = 0728149355) 6.9 % 1.3-7.7 Platelet count measured by fluorescence method. NRBC/100 WBC (test code = 5970473470) 0.0 See_Comment [Automated Solmentum ssage] The system which generated this result transmitted reference range: 0.0 - 10.0 /100 WBCs. The reference range was not used to interpret this result as normal/abnormal. NRBC x10^3 (test code = 6494937143) See_Comment [Automated messa ge] The system which generated this result transmitted reference range: 10*3/?L. The reference range was not used to interpret this result as normal/abnormal. GRAN MAT (NEUT) % (test code = 770-8) 68.9 % IMM GRAN % (test code = 8493322707) 1.00 % LYMPH % (test code = 736-9) 19.8 % MONO % (test code = 5905-5) 7.4 % EOS % (test code = 713-8) 2.4 % BASO % (test code = 706-2) 0.5 % GRAN MAT x10^3(ANC) (test code = 2692658433) 4.28 10*3/uL 1.88-7.09 IMM GRAN x10^3 (test code = 2157122775) 0.06 10*3/uL 0.00-0.06 LYMPH x10^3 (test code = 731-0) 1.23 10*3/uL 1.32-3.29 L MONO x10^3 (test code = 742-7) 0.46 10*3/uL 0.33-0.92 EOS x10^3 (test code = 711-2) 0.15 10*3/uL 0.03-0.39 BASO x10^3 (test code = 704-7) 0.03 10*3/uL 0.01-0.07 LG GRAN LYMPHS (test code = 6722040170) Rare Rare GIANT PLATELETS (test code = 5908-9) Present See_Comment A [Automated messa ge] The system which generated this result transmitted reference range: (none). The reference range was not used to interpret this result as normal/abnormal. Lab Interpretation (test code = 59159-9) Abnormal [facility] WITH [id number] 19:58:11* Test Item Value Reference Range Interpretation Comme nts WBC (test code = 6690-2) 6.21 See_Comment [Automated messa ge] The system which generated this result transmitted reference range: 4.30 - 11.10 10*3/?L. The reference range was not used to interpret this result as normal/abnormal. RBC (test code = 789-8) 4.49 See_Comment [Automated messa ge] The system which generated this result transmitted reference range: 3.93 - 5.25 10*6/?L. The reference range was not used to interpret this result as normal/abnormal. HGB (test code = 718-7) 13.0 g/dL 11.6-15.0 HCT (test code = 4544-3) 39.9 % 35.7-45.2 MCV (test code = 787-2) 88.9 fL 80.6-95.5 MCH (test code = 785-6) 29.0 pg 25.9-32.8 MCHC (test code = 786-4) 32.6 g/dL 31.6-35.1 RDW-SD (test code = 39930-1) 44.4 fL 39.0-49.9 RDW-CV (test code = 788-0) 13.9 % 12.0-15.5 PLT (test code = 777-3) 113 See_Comment L [Automated [email or web address].com Textbook Timea ge] The system which generated this result transmitted reference range: 166 - 358 10*3/?L. The reference range was not used to interpret this result as normal/abnormal. MPV (test code = 80364-6) 12.6 fL 9.5-12.9 IPF % (test code = 4452163751) 6.9 % 1.3-7.7 Platelet count measured by fluorescence method. NRBC/100 WBC (test code = 9901923541) 0.0 See_Comment [Automated Solmentum ssage] The system which generated this result transmitted reference range: 0.0 - 10.0 /100 WBCs. The reference range was not used to interpret this result as normal/abnormal. NRBC x10^3 (test code = 3450020302) See_Comment [Automated [email or web address][employer] Textbook Timea ge] The system which generated this result transmitted reference range: 10*3/?L. The reference range was not used to interpret this result as normal/abnormal. GRAN MAT (NEUT) % (test code = 770-8) 68.9 % IMM GRAN % (test code = 8631875609) 1.00 % LYMPH % (test code = 736-9) 19.8 % MONO % (test code = 5905-5) 7.4 % EOS % (test code = 713-8) 2.4 % BASO % (test code = 706-2) 0.5 % GRAN MAT x10^3(ANC) (test code = 4596098753) 4.28 10*3/uL 1.88-7.09 IMM GRAN x10^3 (test code = 9528024008) 0.06 10*3/uL 0.00-0.06 LYMPH x10^3 (test code = 731-0) 1.23 10*3/uL 1.32-3.29 L MONO x10^3 (test code = 742-7) 0.46 10*3/uL 0.33-0.92 EOS x10^3 (test code = 711-2) 0.15 10*3/uL 0.03-0.39 BASO x10^3 (test code = 704-7) 0.03 10*3/uL 0.01-0.07 LG GRAN LYMPHS (test code = 0634247983) Rare Rare GIANT PLATELETS (test code = 5908-9) Present See_Comment A [Automated messa ge] The system which generated this result transmitted reference range: (none). The reference range was not used to interpret this result as normal/abnormal. Lab Interpretation (test code = 27017-6) Abnormal [facility] WITH [id number] 19:58:11* Test Item Value Reference Range Interpretation Comme nts WBC (test code = 6690-2) 6.21 See_Comment [Automated messa ge] The system which generated this result transmitted reference range: 4.30 - 11.10 10*3/?L. The reference range was not used to interpret this result as normal/abnormal. RBC (test code = 789-8) 4.49 See_Comment [Automated messa ge] The system which generated this result transmitted reference range: 3.93 - 5.25 10*6/?L. The reference range was not used to interpret this result as normal/abnormal. HGB (test code = 718-7) 13.0 g/dL 11.6-15.0 HCT (test code = 4544-3) 39.9 % 35.7-45.2 MCV (test code = 787-2) 88.9 fL 80.6-95.5 MCH (test code = 785-6) 29.0 pg 25.9-32.8 MCHC (test code = 786-4) 32.6 g/dL 31.6-35.1 RDW-SD (test code = 83947-5) 44.4 fL 39.0-49.9 RDW-CV (test code = 788-0) 13.9 % 12.0-15.5 PLT (test code = 777-3) 113 See_Comment L [Automated [email or web address][employer]com Textbook Timea ge] The system which generated this result transmitted reference range: 166 - 358 10*3/?L. The reference range was not used to interpret this result as normal/abnormal. MPV (test code = 09201-4) 12.6 fL 9.5-12.9 IPF % (test code = 5944049735) 6.9 % 1.3-7.7 Platelet count measured by fluorescence method. NRBC/100 WBC (test code = 0202674011) 0.0 See_Comment [Automated Solmentum ssage] The system which generated this result transmitted reference range: 0.0 - 10.0 /100 WBCs. The reference range was not used to interpret this result as normal/abnormal. NRBC x10^3 (test code = 7255955095) See_Comment [Automated [email or web address][employer] Textbook Timea ge] The system which generated this result transmitted reference range: 10*3/?L. The reference range was not used to interpret this result as normal/abnormal. GRAN MAT (NEUT) % (test code = 770-8) 68.9 % IMM GRAN % (test code = 4574537959) 1.00 % LYMPH % (test code = 736-9) 19.8 % MONO % (test code = 5905-5) 7.4 % EOS % (test code = 713-8) 2.4 % BASO % (test code = 706-2) 0.5 % GRAN MAT x10^3(ANC) (test code = 2526812311) 4.28 10*3/uL 1.88-7.09 IMM GRAN x10^3 (test code = 7883446894) 0.06 10*3/uL 0.00-0.06 LYMPH x10^3 (test code = 731-0) 1.23 10*3/uL 1.32-3.29 L MONO x10^3 (test code = 742-7) 0.46 10*3/uL 0.33-0.92 EOS x10^3 (test code = 711-2) 0.15 10*3/uL 0.03-0.39 BASO x10^3 (test code = 704-7) 0.03 10*3/uL 0.01-0.07 LG GRAN LYMPHS (test code = 1012461867) Rare Rare GIANT PLATELETS (test code = 5908-9) Present See_Comment A [Automated [email or web address] Textbook Timea ge] The system which generated this result transmitted reference range: (none). The reference range was not used to interpret this result as normal/abnormal. Lab Interpretation (test code = 91540-7) [facility] [id number] 05:16:38* Test Item Value Reference Range Interpretation Comme nts HEMOGLOBIN A1c (test code = 55260) 10.0 % 4.2-5.6 H [place] [employer] GUIDELINES FOR HGB A1C: PREDIABETES/INCREASED RISK . . . . . . . 5.7-6.4% DIAGNOSIS OF DIABETES . . . . . . . . . >=6.5% WITH CONFIRMATION OR APPROPRIATE SYMPTOMS NOTE: ASSAY MAY BE AFFECTED BY HEMOGLOBINOPATHIES (SICKLE CELL ANEMIA, S-C DISEASE, OTHERS) OR ARTIFICIALLY LOWERED BY DECREASED RED CELL SURVIVAL (HEMOLYTIC ANEMIAS, BLOOD LOSS, ETC.). CONSIDER ALTERNATE TESTING OR LABORATORY CONSULTATION. [facility] has important pathology staff changes effective 06/17/2022. New pathology staff will provide uninterrupted, excellent patient care and clinical consultation. See URL: [email or web address]. UNLESS OTHERWISE INDICATED, ALL TESTING PERFORMED AT [facility] [address] [place] [address] CLIA: [id number], CAP: [id number] HEMOGLOBIN [id number] 00:00:00* Test Item Value Reference Range Interpretation Comme nts HEMOGLOBIN A1c (test code = 06737) 10.0 % [address] [place] [id number] 00:00:00* Test Item Value Reference Range Interpretation Comme nts HEMOGLOBIN A1c (test code = 55286) 10.0 % [address] [place] [id number] 00:00:00* Test Item Value Reference Range Interpretation Comme nts HEMOGLOBIN A1c (test code = 08484) 10.0 % [address] [place] [id number] 00:00:00* Test Item Value Reference Range Interpretation Comme nts CHOLESTEROL (test code = 2210) 184 MG/DL TRIGLYCERIDES (test code = 2232) 369 MG/DL HDL CHOLESTEROL (test code = 2220) 35 MG/DL CALC LDL CHOL (test code = 2237) 100 MG/DL RISK RATIO LDL/HDL (test cod e = 2238) [address] [place] [id number] 00:00:00* Test Item Value Reference Range Interpretation Comme nts HEMOGLOBIN A1c (test code = 69447) 10.7 % LIPID [id number] 00:00:00* Test Item Value Reference Range Interpretation Comme nts CHOLESTEROL (test code = 2210) 184 MG/DL TRIGLYCERIDES (test code = 2232) 369 MG/DL HDL CHOLESTEROL (test code = 2220) 35 MG/DL CALC LDL CHOL (test code = 2237) 100 MG/DL RISK RATIO LDL/HDL (test cod e = 2238) 2.86 RATIO HEMOGLOBIN [id number] 00:00:00* Test Item Value Reference Range Interpretation Comme nts HEMOGLOBIN A1c (test code = 40966) 10.7 % [address] [place] [id number] 00:00:00* Test Item Value Reference Range Interpretation Comme nts CHOLESTEROL (test code = 2210) 184 MG/DL TRIGLYCERIDES (test code = 2232) 369 MG/DL HDL CHOLESTEROL (test code = 2220) 35 MG/DL CALC LDL CHOL (test code = 2237) 100 MG/DL RISK RATIO LDL/HDL (test cod e = 2238) 2.[address] [place] [id number] 00:00:00* Test Item Value Reference Range Interpretation Comme nts HEMOGLOBIN A1c (test code = 02480) 10.7 % [address] [place] [id number] 00:00:00* Test Item Value Reference Range Interpretation Comme nts CHOLESTEROL (test code = 2210) 184 MG/DL TRIGLYCERIDES (test code = 2232) 369 MG/DL HDL CHOLESTEROL (test code = 2220) 35 MG/DL CALC LDL CHOL (test code = 2237) 100 MG/DL RISK RATIO LDL/HDL (test cod e = 2238) 2.[address] [place]MO[place] [id number] 00:00:00* Test Item Value Reference Range Interpretation Comme mitali HEMOGLOBIN A1c (test code = 40559) 10.7 % Lane [id number] 06:10:48* Test Item Value Reference Range Interpretation Comme nts AMYLASE (test code = 2205) 74 U/L 28-100 [id number] 06:10:48* Test Item Value Reference Range Interpretation Comme nts LIPASE (test code = 2058) 18 U/L 13-60 C-REACTIVE [id number] 06:10:48* Test Item Value Reference Range Interpretation Comme nts C-REACTIVE PROTEIN (test code = 3513) 1.6 MG/DL <0.5 H UNLESS OTHERW ISE INDICATED, ALL TESTING PERFORMED [facility] [address] [place] [address] PROJECT DIRECTOR: DAVID GUALLPA M.D. CLIA NUMBER [id number] [facility] [place]. [id number] COMPREHENSIVE METABOLIC [id number] 05:50:31* Test Item Value Reference Range Interpretation Comme nts GLUCOSE (test code = 2217) 294 MG/DL 70-99 H BUN (test code = 2208) 11 MG/DL 8-23 CREATININE (test code = 2214) 0.73 MG/DL 0.60-1.30 eGFR (2020 CKD-EPI) (test code = 25997) 88 ML/MIN/1.73 >60 CALC BUN/CREAT (test code = 2235) 15 RATIO 6-28 SODIUM (test code = 2231) 133 MEQ/L 133-146 POTASSIUM (test code = 2228) 4.9 MEQ/L 3.5-5.4 CHLORIDE (test code = 2215) 94 MEQ/L 95-107 L CARBON DIOXIDE (test code = 2206) 28 MEQ/L 19-31 CALCIUM (test code = 2209) 9.6 MG/DL 8.5-10.5 PROTEIN, TOTAL (test code = 2229) 7.8 G/DL 6.1-8.3 ALBUMIN (test code = 2201) 4.3 G/DL 3.5-5.2 CALC GLOBULIN (test code = 2240) 3.5 G/DL 1.9-3.7 CALC A/G RATIO (test code = 2234) 1.2 RATIO 1.0-2.6 BILIRUBIN, TOTAL (test code = 2207) 0.4 MG/DL See_Comment [Automated nm ssage] The system which generated this result transmitted reference range: <=1.2. The reference range was not used to interpret this result as normal/abnormal. ALKALINE PHOSPHATASE (test code = 2204) 161 U/L 40-142 H AST (test code = 2218) 45 U/L 9-40 H ALT (test code = 2219) 32 U/L 5-40 SEDIMENTATION [id number] 03:50:19* Test Item Value Reference Range Interpretation Comme nts SEDIMENTATION RATE (test cod e = 1017) 13 MM/HOUR 0-20 CBC W/AUTO DIFF WITH [id number] 02:37:15* Test Item Value Reference Range Interpretation Comme nts WBC (test code = 1001) 8.3 K/UL 3.5-11.0 RBC (test code = 1002) 4.97 M/UL 3.80-5.40 HEMOGLOBIN (test code = 1003) 14.4 G/DL 11.5-15.5 HEMATOCRIT (test code = 1004) 41.3 % 34.0-45.0 MCV (test code = 1005) 83.1 fL 80.0-99.0 MCH (test code = 1006) 29.0 PG 25.0-33.0 MCHC (test code = 1007) 34.9 G/DL 31.0-36.0 RDW (test code = 1038) 13.8 % 11.5-15.0 NEUTROPHILS (test code = 1008) 75.3 % LYMPHOCYTES (test code = 1010) 16.2 % MONOCYTES (test code = 1011) 6.4 % EOSINOPHILS (test code = 1012) 1.2 % BASOPHILS (test code = 1013) 0.4 % IMMATURE GRANULOCYTES (test code = 1036) 0.5 % NUCLEATED RBCS (test code = 1065) 0.0 /100 WBC'S See_Comment [Automated messa ge] The system which generated this result transmitted reference range: 0.0. The reference range was not used to interpret this result as normal/abnormal. PLATELET COUNT (test code = 1015) 143 K/UL 130-400 ABSOLUTE NEUTROPHILS (test code = 1066) 6.23 K/UL 1.50-7.50 ABSOLUTE LYMPHOCYTES (test code = 1067) 1.34 K/UL 1.00-4.00 ABSOLUTE MONOCYTES (test code = 1068) 0.53 K/UL 0.20-1.00 ABSOLUTE EOSINOPHILS (test code = 1040) 0.10 K/UL 0.00-0.50 ABSOLUTE BASOPHILS (test code = 1069) 0.03 K/UL 0.00-0.20 ABS IMMATURE GRANULOCYTES (test code = 1020) 0.04 K/UL 0.00-0.10 ABS NUCLEATED RBCS (test code = 94296) 0.00 K/UL 0.00-0.11 CBC W/AUTO [id number] 00:00:00* Test Item Value Reference Range Interpretation Comme nts WBC (test code = 1001) 8.3 K/UL [...] = 1013) 0.4 % IMMATURE GRANULOCYTES (test code = 1036) 0.5 % NUCLEATED RBCS (test code = 1065) 0.0 /100WBC'S PLATELET COUNT (test code = 1015) 143 K/UL ABSOLUTE NEUTROPHILS (test c ode = 1066) 6.23 K/UL ABSOLUTE LYMPHOCYTES (test c ode = 1067) 1.34 K/UL ABSOLUTE MONOCYTES (test cod e = 1068) 0.53 K/UL ABSOLUTE EOSINOPHILS (test c ode = 1040) 0.10 K/UL ABSOLUTE BASOPHILS (test cod e = 1069) 0.03 K/UL ABS IMMATURE GRANULOCYTES (t est code = 1020) 0.04 K/UL ABS NUCLEATED RBCS (test cod e = 55144) 0.00 K/UL Lane TafoyaCOMPREHENSIVE METABOLIC [id number] 00:00:00* Test Item Value Reference Range Interpretation Comme nts GLUCOSE (test code = 2217) 294 MG/DL BUN (test code = 2208) 11 MG/DL CREATININE (test code = 2214) 0.73 MG/DL eGFR (2020 CKD-EPI) (test co de = 40509) 88 ML/MIN/1.73 CALC BUN/CREAT (test code = 2235) 15 RATIO SODIUM (test code = 2231) 133 MEQ/L POTASSIUM (test code = 2228) 4.9 MEQ/L CHLORIDE (test code = 2215) 94 MEQ/L CARBON DIOXIDE (test code = 2206) 28 MEQ/L CALCIUM (test code = 2209) 9.6 MG/DL PROTEIN, TOTAL (test code = 2229) 7.8 G/DL ALBUMIN (test code = 2201) 4.3 G/DL CALC GLOBULIN (test code = 2240) 3.5 G/DL CALC A/G RATIO (test code = 2234) 1.2 RATIO BILIRUBIN, TOTAL (test code = 2207) 0.4 MG/DL ALKALINE PHOSPHATASE (test code = 2204) 161 U/L AST (test code = 2218) 45 U/L ALT (test code = 2219) 32 U/L Lane [facility] [id number] 00:00:00* Test Item Value Reference Range Interpretation Comme nts AMYLASE (test code = 5) 74 U/L Lane [facility] [id number] 00:00:00* Test Item Value Reference Range Interpretation Comme nts LIPASE (test code = 2057) 18 U/L Lane TafoyaSEDIMENTATION [id number] 00:00:00* Test Item Value Reference Range Interpretation Comme nts SEDIMENTATION RATE (test cod e = 1017) 13 MM/HOUR Lane TafoyaC-REACTIVE [id number] 00:00:00* Test Item Value Reference Range Interpretation Comme nts C-REACTIVE PROTEIN (test cod e = 3513) 1.6 MG/DL Lane TafoyaCBC W/AUTO [id number] 00:00:00* Test Item Value Reference Range Interpretation Comme nts WBC (test code = 1001) 8.3 K/UL [...] = 1013) 0.4 % IMMATURE GRANULOCYTES (test code = 1036) 0.5 % NUCLEATED RBCS (test code = 1065) 0.0 /100WBC'S PLATELET COUNT (test code = 1015) 143 K/UL ABSOLUTE NEUTROPHILS (test c ode = 1066) 6.23 K/UL ABSOLUTE LYMPHOCYTES (test c ode = 1067) 1.34 K/UL ABSOLUTE MONOCYTES (test cod e = 1068) 0.53 K/UL ABSOLUTE EOSINOPHILS (test c ode = 1040) 0.10 K/UL ABSOLUTE BASOPHILS (test cod e = 1069) 0.03 K/UL ABS IMMATURE GRANULOCYTES (t est code = 1020) 0.04 K/UL ABS NUCLEATED RBCS (test cod e = 97808) 0.00 K/UL COMPREHENSIVE METABOLIC [id number] 00:00:00* Test Item Value Reference Range Interpretation Comme nts GLUCOSE (test code = 2217) 294 MG/DL BUN (test code = 2208) 11 MG/DL CREATININE (test code = 2214) 0.73 MG/DL eGFR (2020 CKD-EPI) (test co de = 18532) 88 ML/MIN/1.73 CALC BUN/CREAT (test code = 2235) 15 RATIO SODIUM (test code = 2231) 133 MEQ/L POTASSIUM (test code = 2228) 4.9 MEQ/L CHLORIDE (test code = 2215) 94 MEQ/L CARBON DIOXIDE (test code = 2206) 28 MEQ/L CALCIUM (test code = 2209) 9.6 MG/DL PROTEIN, TOTAL (test code = 2229) 7.8 G/DL ALBUMIN (test code = 2201) 4.3 G/DL CALC GLOBULIN (test code = 2240) 3.5 G/DL CALC A/G RATIO (test code = 2234) 1.2 RATIO BILIRUBIN, TOTAL (test code = 2207) 0.4 MG/DL ALKALINE PHOSPHATASE (test code = 2204) 161 U/L AST (test code = 2218) 45 U/L ALT (test code = 2219) 32 U/L [id number] 00:00:00* Test Item Value Reference Range Interpretation Comme nts AMYLASE (test code = 2205) 74 U/L [id number] 00:00:00* Test Item Value Reference Range Interpretation Comme nts LIPASE (test code = 2058) 18 U/L SEDIMENTATION [id number] 00:00:00* Test Item Value Reference Range Interpretation Comme nts SEDIMENTATION RATE (test cod e = 1017) 13 MM/HOUR C-REACTIVE [id number] 00:00:00* Test Item Value Reference Range Interpretation Comme nts C-REACTIVE PROTEIN (test cod e = 3513) 1.6 MG/DL CBC W/AUTO [id number] 00:00:00* Test Item Value Reference Range Interpretation Comme nts WBC (test code = 1001) 8.3 K/UL [...] = 1013) 0.4 % IMMATURE GRANULOCYTES (test code = 1036) 0.5 % NUCLEATED RBCS (test code = 1065) 0.0 /100WBC'S PLATELET COUNT (test code = 1015) 143 K/UL ABSOLUTE NEUTROPHILS (test c ode = 1066) 6.23 K/UL ABSOLUTE LYMPHOCYTES (test c ode = 1067) 1.34 K/UL ABSOLUTE MONOCYTES (test cod e = 1068) 0.53 K/UL ABSOLUTE EOSINOPHILS (test c ode = 1040) 0.10 K/UL ABSOLUTE BASOPHILS (test cod e = 1069) 0.03 K/UL ABS IMMATURE GRANULOCYTES (t est code = 1020) 0.04 K/UL ABS NUCLEATED RBCS (test cod e = 87454) 0.00 K/UL COMPREHENSIVE METABOLIC [id number] 00:00:00* Test Item Value Reference Range Interpretation Comme nts GLUCOSE (test code = 2217) 294 MG/DL BUN (test code = 2208) 11 MG/DL CREATININE (test code = 2214) 0.73 MG/DL eGFR (2020 CKD-EPI) (test co de = 29058) 88 ML/MIN/1.73 CALC BUN/CREAT (test code = 2235) 15 RATIO SODIUM (test code = 2231) 133 MEQ/L POTASSIUM (test code = 2228) 4.9 MEQ/L CHLORIDE (test code = 2215) 94 MEQ/L CARBON DIOXIDE (test code = 2206) 28 MEQ/L CALCIUM (test code = 2209) 9.6 MG/DL PROTEIN, TOTAL (test code = 2229) 7.8 G/DL ALBUMIN (test code = 2201) 4.3 G/DL CALC GLOBULIN (test code = 2240) 3.5 G/DL CALC A/G RATIO (test code = 2234) 1.2 RATIO BILIRUBIN, TOTAL (test code = 2207) 0.4 MG/DL ALKALINE PHOSPHATASE (test code = 2204) 161 U/L AST (test code = 2218) 45 U/L ALT (test code = 2219) 32 U/L [id number] 00:00:00* Test Item Value Reference Range Interpretation Comme nts AMYLASE (test code = 2205) 74 U/L [id number] 00:00:00* Test Item Value Reference Range Interpretation Comme nts LIPASE (test code = 2057) 18 U/L SEDIMENTATION [id number] 00:00:00* Test Item Value Reference Range Interpretation Comme nts SEDIMENTATION RATE (test cod e = 1017) 13 MM/HOUR C-REACTIVE [id number] 00:00:00* Test Item Value Reference Range Interpretation Comme nts C-REACTIVE PROTEIN (test cod e = 3513) 1.6 MG/DL CBC W/AUTO [id number] 00:00:00* Test Item Value Reference Range Interpretation Comme nts WBC (test code = 1001) 8.3 K/UL [...] = 1013) 0.4 % IMMATURE GRANULOCYTES (test code = 1036) 0.5 % NUCLEATED RBCS (test code = 1065) 0.0 /100WBC'S PLATELET COUNT (test code = 1015) 143 K/UL ABSOLUTE NEUTROPHILS (test c ode = 1066) 6.23 K/UL ABSOLUTE LYMPHOCYTES (test c ode = 1067) 1.34 K/UL ABSOLUTE MONOCYTES (test cod e = 1068) 0.53 K/UL ABSOLUTE EOSINOPHILS (test c ode = 1040) 0.10 K/UL ABSOLUTE BASOPHILS (test cod e = 1069) 0.03 K/UL ABS IMMATURE GRANULOCYTES (t est code = 1020) 0.04 K/UL ABS NUCLEATED RBCS (test cod e = 19955) 0.00 K/UL Lane F AustinCOMPREHENSIVE METABOLIC [id number] 00:00:00* Test Item Value Reference Range Interpretation Comme nts GLUCOSE (test code = 2217) 294 MG/DL BUN (test code = 2208) 11 MG/DL CREATININE (test code = 2214) 0.73 MG/DL eGFR (2020 CKD-EPI) (test co de = 81344) 88 ML/MIN/1.73 CALC BUN/CREAT (test code = 2235) 15 RATIO SODIUM (test code = 2231) 133 MEQ/L POTASSIUM (test code = 2228) 4.9 MEQ/L CHLORIDE (test code = 2215) 94 MEQ/L CARBON DIOXIDE (test code = 2206) 28 MEQ/L CALCIUM (test code = 2209) 9.6 MG/DL PROTEIN, TOTAL (test code = 2229) 7.8 G/DL ALBUMIN (test code = 2201) 4.3 G/DL CALC GLOBULIN (test code = 2240) 3.5 G/DL CALC A/G RATIO (test code = 2234) 1.2 RATIO BILIRUBIN, TOTAL (test code = 2206) 0.4 MG/DL ALKALINE PHOSPHATASE (test code = 2203) 161 U/L AST (test code = 2217) 45 U/L ALT (test code = 2218) 32 U/L [address] [place] [id number] 00:00:00* Test Item Value Reference Range Interpretation Comme nts AMYLASE (test code = 2204) 74 U/L [address] [place] [id number] 00:00:00* Test Item Value Reference Range Interpretation Comme nts LIPASE (test code = 2057) 18 U/L Lane TafoyaSEDIMENTATION [id number] 00:00:00* Test Item Value Reference Range Interpretation Comme nts SEDIMENTATION RATE (test cod e = 1017) 13 MM/HOUR Lane TafoyaC-REACTIVE [id number] 00:00:00* Test Item Value Reference Range Interpretation Comme nts C-REACTIVE PROTEIN (test cod e = 3513) 1.6 MG/DL Lane TafoyaCBC W/AUTO [id number] 00:00:00* Test Item Value Reference Range Interpretation Comme nts WBC (test code = 1001) 8.3 K/UL [...] = 1013) 0.4 % IMMATURE GRANULOCYTES (test code = 1036) 0.5 % NUCLEATED RBCS (test code = 1065) 0.0 /100WBC'S PLATELET COUNT (test code = 1015) 143 K/UL ABSOLUTE NEUTROPHILS (test c ode = 1066) 6.23 K/UL ABSOLUTE LYMPHOCYTES (test c ode = 1067) 1.34 K/UL ABSOLUTE MONOCYTES (test cod e = 1068) 0.53 K/UL ABSOLUTE EOSINOPHILS (test c ode = 1040) 0.10 K/UL ABSOLUTE BASOPHILS (test cod e = 1069) 0.03 K/UL ABS IMMATURE GRANULOCYTES (t est code = 1020) 0.04 K/UL ABS NUCLEATED RBCS (test cod e = 60167) 0.00 K/UL Lane TafoyaCOMPREHENSIVE METABOLIC [id number] 00:00:00* Test Item Value Reference Range Interpretation Comme nts GLUCOSE (test code = 2217) 294 MG/DL BUN (test code = 2208) 11 MG/DL CREATININE (test code = 2214) 0.73 MG/DL eGFR (2020 CKD-EPI) (test co de = 85912) 88 ML/MIN/1.73 CALC BUN/CREAT (test code = 2235) 15 RATIO SODIUM (test code = 2231) 133 MEQ/L POTASSIUM (test code = 2228) 4.9 MEQ/L CHLORIDE (test code = 2215) 94 MEQ/L CARBON DIOXIDE (test code = 2206) 28 MEQ/L CALCIUM (test code = 2209) 9.6 MG/DL PROTEIN, TOTAL (test code = 2229) 7.8 G/DL ALBUMIN (test code = 2201) 4.3 G/DL CALC GLOBULIN (test code = 2240) 3.5 G/DL CALC A/G RATIO (test code = 2234) 1.2 RATIO BILIRUBIN, TOTAL (test code = 2207) 0.4 MG/DL ALKALINE PHOSPHATASE (test code = 2204) 161 U/L AST (test code = 2218) 45 U/L ALT (test code = 2219) 32 U/L Lane [id number] 00:00:00* Test Item Value Reference Range Interpretation Comme nts AMYLASE (test code = 2205) 74 U/L Lane [id number] 00:00:00* Test Item Value Reference Range Interpretation Comme nts LIPASE (test code = 2058) 18 U/L Lane TafoyaSEDIMENTATION [id number] 00:00:00* Test Item Value Reference Range Interpretation Comme nts SEDIMENTATION RATE (test cod e = 1017) 13 MM/HOUR Lane TafoyaC-REACTIVE [id number] 00:00:00* Test Item Value Reference Range Interpretation Comme mitali C-REACTIVE PROTEIN (test cod e = 3513) 1.6 MG/DL Lane TafoyaVITAMIN D, 25 [id number] 08:57:52* Test Item Value Reference Range Interpretation Comme mitali VITAMIN D, 25 OH (test code = 4958) 16 NG/ML SEE BELOW L NOTE: 25-HYDR OXYVITAMIN D ASSAY INCLUDES 25-HYDROXYVITAMIN D2 AND D3. METHODOLOGY IS CHEMILUMINESCENT IMMUNOASSAY. INTERPRETIVE RANGES PEDIATRIC (<17 YEARS) . . . . . . . . . . . NG/ML 20-100ADULT: INSUFFICIENT . . . . . . . . . . . . . . NG/ML <20 SUBOPTIMAL . . . . . . . . . . . . . . . NG/ML 20-29 OPTIMAL . . . . . . . . . . . . . . . . . NG/ML 30-100 UNLESS OTHERWISE INDICATED, ALL TESTING PERFORMED [facility] [address] [place] [address] PROJECT DIRECTOR: DAVID UGALLPA M.D. CLIA NUMBER [id number] [facility] [place]. [id number] COMPREHENSIVE METABOLIC [id number] 08:43:08* Test Item Value Reference Range Interpretation Comme nts GLUCOSE (test code = 2217) 269 MG/DL 70-99 H BUN (test code = 2208) 11 MG/DL 8-23 CREATININE (test code = 2214) 0.89 MG/DL 0.60-1.30 eGFR (2020 CKD-EPI) (test code = 78171) 70 ML/MIN/1.73 >60 CALC BUN/CREAT (test code = 2235) 12 RATIO 6-28 SODIUM (test code = 2231) 139 MEQ/L 133-146 POTASSIUM (test code = 2227) 4.2 MEQ/L 3.5-5.4 CHLORIDE (test code = 5) 101 MEQ/L 95-107 CARBON DIOXIDE (test code = 2205) 24 MEQ/L 19-31 CALCIUM (test code = 2208) 9.1 MG/DL 8.5-10.5 PROTEIN, TOTAL (test code = 2228) 7.8 G/DL 6.1-8.3 ALBUMIN (test code = 2200) 4.5 G/DL 3.5-5.2 CALC GLOBULIN (test code = 2239) 3.3 G/DL 1.9-3.7 CALC A/G RATIO (test code = 2233) 1.4 RATIO 1.0-2.6 BILIRUBIN, TOTAL (test code = 2206) 0.3 MG/DL See_Comment [Automated me ssage] The system which generated this result transmitted reference range: <=1.2. The reference range was not used to interpret this result as normal/abnormal. ALKALINE PHOSPHATASE (test code = 2203) 133 U/L 40-142 AST (test code = 2217) 33 U/L 9-40 ALT (test code = 2218) 18 U/L 5-40 LIPID [id number] 08:43:08* Test Item Value Reference Range Interpretation Comme nts CHOLESTEROL (test code = 0) 193 MG/DL <200 TRIGLYCERIDES (test code = 2231) 261 MG/DL <150 H HDL CHOLESTEROL (test code = 2219) 45 MG/DL >39 CALC LDL CHOL (test code = 2236) 111 MG/DL <100 H NOTE: CALCULATED LDL IS BASED ON YIMI-VEGA METHOD WHICHINCLUDES ADJUSTABLE TRIGLYCERIDE:VLDL CHOLESTEROL RATIO.THIS FACTOR VARIES BY MEASURED TRIGLYCERIDE AND NON-HDLCHOLESTEROL CONCENTRATIONS WITH INCREASED CALCULATED LDL SEENIN HIGHER TRIGLYCERIDE OR LOWER NON-HDL SPECIMENS. FOR MOREINFORMATION, SEE CLIENT ANNOUNCEMENT AT [email or web address] RISK RATIO LDL/HDL (test code = 2237) 2.47 RATIO <3.22 HEMOGLOBIN [id number] 03:03:09* Test Item Value Reference Range Interpretation Comme nts HEMOGLOBIN A1c (test code = 70945) 9.3 % 4.2-5.6 H [place] [employer] GUIDELINES FOR HGB A1C: PREDIABETES/INCREASED RISK . . . . . . . 5.7-6.4% DIAGNOSIS OF DIABETES . . . . . . . . . >=6.5% WITH CONFIRMATION OR APPROPRIATE SYMPTOMS NOTE: ASSAY MAY BE AFFECTED BY HEMOGLOBINOPATHIES (SICKLE CELL ANEMIA, S-C DISEASE, OTHERS) OR ARTIFICIALLY LOWERED BY DECREASED RED CELL SURVIVAL (HEMOLYTIC ANEMIAS, BLOOD LOSS, ETC.). CONSIDER ALTERNATE TESTING OR LABORATORY CONSULTATION. CBC W/AUTO DIFF WITH [id number] 02:21:47* Test Item Value Reference Range Interpretation Comme nts WBC (test code = 1001) 8.5 K/UL 3.5-11.0 RBC (test code = 1002) 4.78 M/UL 3.80-5.40 HEMOGLOBIN (test code = 1003) 13.7 G/DL 11.5-15.5 HEMATOCRIT (test code = 1004) 41.8 % 34.0-45.0 MCV (test code = 1005) 87.4 fL 80.0-99.0 MCH (test code = 1006) 28.7 PG 25.0-33.0 MCHC (test code = 1007) 32.8 G/DL 31.0-36.0 RDW (test code = 1038) 13.9 % 11.5-15.0 NEUTROPHILS (test code = 1008) 79.8 % LYMPHOCYTES (test code = 1010) 13.6 % MONOCYTES (test code = 1011) 5.3 % EOSINOPHILS (test code = 1012) 0.7 % BASOPHILS (test code = 1013) 0.2 % IMMATURE GRANULOCYTES (test code = 1036) 0.4 % NUCLEATED RBCS (test code = 1065) 0.0 /100 WBC'S See_Comment [Automated [email or web address] Textbook Timea ge] The system which generated this result transmitted reference range: 0.0. The reference range was not used to interpret this result as normal/abnormal. PLATELET COUNT (test code = 1015) 128 K/UL 130-400 L ABSOLUTE NEUTROPHILS (test code = 1066) 6.75 K/UL 1.50-7.50 ABSOLUTE LYMPHOCYTES (test code = 1067) 1.15 K/UL 1.00-4.00 ABSOLUTE MONOCYTES (test code = 1068) 0.45 K/UL 0.20-1.00 ABSOLUTE EOSINOPHILS (test code = 1040) 0.06 K/UL 0.00-0.50 ABSOLUTE BASOPHILS (test code = 1069) 0.02 K/UL 0.00-0.20 ABS IMMATURE GRANULOCYTES (test code = 1020) 0.03 K/UL 0.00-0.10 ABS NUCLEATED RBCS (test code = 94579) 0.00 K/UL 0.00-0.11 CBC W/AUTO [id number] 00:00:00* Test Item Value Reference Range Interpretation Comme nts WBC (test code = 1001) 8.5 K/UL [...] = 1013) 0.2 % IMMATURE GRANULOCYTES (test code = 1036) 0.4 % NUCLEATED RBCS (test code = 1065) 0.0 /100WBC'S PLATELET COUNT (test code = 1015) 128 K/UL ABSOLUTE NEUTROPHILS (test c ode = 1066) 6.75 K/UL ABSOLUTE LYMPHOCYTES (test c ode = 1067) 1.15 K/UL ABSOLUTE MONOCYTES (test cod e = 1068) 0.45 K/UL ABSOLUTE EOSINOPHILS (test c ode = 1040) 0.06 K/UL ABSOLUTE BASOPHILS (test cod e = 1069) 0.02 K/UL ABS IMMATURE GRANULOCYTES (t est code = 1020) 0.03 K/UL ABS NUCLEATED RBCS (test cod e = 91299) 0.00 K/UL Lane F AustinCOMPREHENSIVE METABOLIC [id number] 00:00:00* Test Item Value Reference Range Interpretation Comme nts GLUCOSE (test code = 2217) 269 MG/DL BUN (test code = 2208) 11 MG/DL CREATININE (test code = 2214) 0.89 MG/DL eGFR (2020 CKD-EPI) (test co de = 35891) 70 ML/MIN/1.73 CALC BUN/CREAT (test code = 2235) 12 RATIO SODIUM (test code = 2231) 139 MEQ/L POTASSIUM (test code = 2228) 4.2 MEQ/L CHLORIDE (test code = 2215) 101 MEQ/L CARBON DIOXIDE (test code = 2206) 24 MEQ/L CALCIUM (test code = 2209) 9.1 MG/DL PROTEIN, TOTAL (test code = 2229) 7.8 G/DL ALBUMIN (test code = 2201) 4.5 G/DL CALC GLOBULIN (test code = 2240) 3.3 G/DL CALC A/G RATIO (test code = 2234) 1.4 RATIO BILIRUBIN, TOTAL (test code = 2207) 0.3 MG/DL ALKALINE PHOSPHATASE (test code = 2204) 133 U/L AST (test code = 2218) 33 U/L ALT (test code = 2219) 18 U/L Lane Urban MicheletLIPID [id number] 00:00:00* Test Item Value Reference Range Interpretation Comme nts CHOLESTEROL (test code = 2210) 193 MG/DL TRIGLYCERIDES (test code = 2232) 261 MG/DL HDL CHOLESTEROL (test code = 2220) 45 MG/DL CALC LDL CHOL (test code = 2237) 111 MG/DL RISK RATIO LDL/HDL (test cod e = 2238) 2.[address] TafoyaHEMOGLOBIN [id number] 00:00:00* Test Item Value Reference Range Interpretation Comme [facility] HEMOGLOBIN A1c (test code = 46927) 9.3 % [address] F MicheletVITAMIN D, 25 [id number] 00:00:00* Test Item Value Reference Range Interpretation Comme [facility] VITAMIN D, 25 OH (test code = 4958) 16 NG/ML Lane Urban MicheletCBC W/AUTO [id number] 00:00:00* Test Item Value Reference Range Interpretation Comme nts WBC (test code = 1001) 8.5 K/UL [...] = 1013) 0.2 % IMMATURE GRANULOCYTES (test code = 1036) 0.4 % NUCLEATED RBCS (test code = 1065) 0.0 /100WBC'S PLATELET COUNT (test code = 1015) 128 K/UL ABSOLUTE NEUTROPHILS (test c ode = 1066) 6.75 K/UL ABSOLUTE LYMPHOCYTES (test c ode = 1067) 1.15 K/UL ABSOLUTE MONOCYTES (test cod e = 1068) 0.45 K/UL ABSOLUTE EOSINOPHILS (test c ode = 1040) 0.06 K/UL ABSOLUTE BASOPHILS (test cod e = 1069) 0.02 K/UL ABS IMMATURE GRANULOCYTES (t est code = 1020) 0.03 K/UL ABS NUCLEATED RBCS (test cod e = 56208) 0.00 K/UL COMPREHENSIVE METABOLIC [id number] 00:00:00* Test Item Value Reference Range Interpretation Comme nts GLUCOSE (test code = 2217) 269 MG/DL BUN (test code = 2208) 11 MG/DL CREATININE (test code = 2214) 0.89 MG/DL eGFR (2020 CKD-EPI) (test co de = 46638) 70 ML/MIN/1.73 CALC BUN/CREAT (test code = 2235) 12 RATIO SODIUM (test code = 2231) 139 MEQ/L POTASSIUM (test code = 2228) 4.2 MEQ/L CHLORIDE (test code = 2215) 101 MEQ/L CARBON DIOXIDE (test code = 2206) 24 MEQ/L CALCIUM (test code = 2209) 9.1 MG/DL PROTEIN, TOTAL (test code = 2229) 7.8 G/DL ALBUMIN (test code = 2201) 4.5 G/DL CALC GLOBULIN (test code = 2240) 3.3 G/DL CALC A/G RATIO (test code = 2234) 1.4 RATIO BILIRUBIN, TOTAL (test code = 2207) 0.3 MG/DL ALKALINE PHOSPHATASE (test code = 2204) 133 U/L AST (test code = 2218) 33 U/L ALT (test code = 2219) 18 U/L LIPID [id number] 00:00:00* Test Item Value Reference Range Interpretation Comme nts CHOLESTEROL (test code = 2210) 193 MG/DL TRIGLYCERIDES (test code = 2232) 261 MG/DL HDL CHOLESTEROL (test code = 2220) 45 MG/DL CALC LDL CHOL (test code = 2237) 111 MG/DL RISK RATIO LDL/HDL (test cod e = 2238) 2.47 RATIO HEMOGLOBIN [id number] 00:00:00* Test Item Value Reference Range Interpretation Comme nts HEMOGLOBIN A1c (test code = 81014) 9.3 % VITAMIN D, 25 [id number] 00:00:00* Test Item Value Reference Range Interpretation Comme nts VITAMIN D, 25 OH (test code = 4958) 16 NG/ML CBC W/AUTO [id number] 00:00:00* Test Item Value Reference Range Interpretation Comme nts WBC (test code = 1001) 8.5 K/UL [...] = 1013) 0.2 % IMMATURE GRANULOCYTES (test code = 1036) 0.4 % NUCLEATED RBCS (test code = 1065) 0.0 /100WBC'S PLATELET COUNT (test code = 1015) 128 K/UL ABSOLUTE NEUTROPHILS (test c ode = 1066) 6.75 K/UL ABSOLUTE LYMPHOCYTES (test c ode = 1067) 1.15 K/UL ABSOLUTE MONOCYTES (test cod e = 1068) 0.45 K/UL ABSOLUTE EOSINOPHILS (test c ode = 1040) 0.06 K/UL ABSOLUTE BASOPHILS (test cod e = 1069) 0.02 K/UL ABS IMMATURE GRANULOCYTES (t est code = 1020) 0.03 K/UL ABS NUCLEATED RBCS (test cod e = 97895) 0.00 K/UL [facility]AUTO [id number] 00:00:00* Test Item Value Reference Range Interpretation Comme nts WBC (test code = 1001) 8.5 K/UL [...] = 1013) 0.2 % IMMATURE GRANULOCYTES (test code = 1036) 0.4 % NUCLEATED RBCS (test code = 1065) 0.0 /100WBC'S PLATELET COUNT (test code = 1015) 128 K/UL ABSOLUTE NEUTROPHILS (test c ode = 1066) 6.75 K/UL ABSOLUTE LYMPHOCYTES (test c ode = 1067) 1.15 K/UL ABSOLUTE MONOCYTES (test cod e = 1068) 0.45 K/UL ABSOLUTE EOSINOPHILS (test c ode = 1040) 0.06 K/UL ABSOLUTE BASOPHILS (test cod e = 1069) 0.02 K/UL ABS IMMATURE GRANULOCYTES (t est code = 1020) 0.03 K/UL ABS NUCLEATED RBCS (test cod e = 34338) 0.00 K/UL COMPREHENSIVE METABOLIC [id number] 00:00:00* Test Item Value Reference Range Interpretation Comme nts GLUCOSE (test code = 2217) 269 MG/DL BUN (test code = 2208) 11 MG/DL CREATININE (test code = 2214) 0.89 MG/DL eGFR (2020 CKD-EPI) (test co de = 93479) 70 ML/MIN/1.73 CALC BUN/CREAT (test code = 2235) 12 RATIO SODIUM (test code = 2231) 139 MEQ/L POTASSIUM (test code = 2228) 4.2 MEQ/L CHLORIDE (test code = 2215) 101 MEQ/L CARBON DIOXIDE (test code = 2206) 24 MEQ/L CALCIUM (test code = 2209) 9.1 MG/DL PROTEIN, TOTAL (test code = 2229) 7.8 G/DL ALBUMIN (test code = 2201) 4.5 G/DL CALC GLOBULIN (test code = 2240) 3.3 G/DL CALC A/G RATIO (test code = 2234) 1.4 RATIO BILIRUBIN, TOTAL (test code = 2207) 0.3 MG/DL ALKALINE PHOSPHATASE (test code = 2204) 133 U/L AST (test code = 2218) 33 U/L ALT (test code = 2219) 18 U/L LIPID [id number] 00:00:00* Test Item Value Reference Range Interpretation Comme nts CHOLESTEROL (test code = 2210) 193 MG/DL TRIGLYCERIDES (test code = 2232) 261 MG/DL HDL CHOLESTEROL (test code = 2220) 45 MG/DL CALC LDL CHOL (test code = 2237) 111 MG/DL RISK RATIO LDL/HDL (test cod e = 2238) 2.47 RATIO HEMOGLOBIN [id number] 00:00:00* Test Item Value Reference Range Interpretation Comme [facility] HEMOGLOBIN A1c (test code = 11761) 9.3 % VITAMIN D, 25 [id number] 00:00:00* Test Item Value Reference Range Interpretation Comme [facility] VITAMIN D, 25 OH (test code = 4958) 16 NG/ML CBC W/AUTO [id number] 00:00:00* Test Item Value Reference Range Interpretation Comme nts WBC (test code = 1001) 8.5 K/UL [...] = 1013) 0.2 % IMMATURE GRANULOCYTES (test code = 1036) 0.4 % NUCLEATED RBCS (test code = 1065) 0.0 /100WBC'S PLATELET COUNT (test code = 1015) 128 K/UL ABSOLUTE NEUTROPHILS (test c ode = 1066) 6.75 K/UL ABSOLUTE LYMPHOCYTES (test c ode = 1067) 1.15 K/UL ABSOLUTE MONOCYTES (test cod e = 1068) 0.45 K/UL ABSOLUTE EOSINOPHILS (test c ode = 1040) 0.06 K/UL ABSOLUTE BASOPHILS (test cod e = 1069) 0.02 K/UL ABS IMMATURE GRANULOCYTES (t est code = 1020) 0.03 K/UL ABS NUCLEATED RBCS (test cod e = 91071) 0.00 K/UL COMPREHENSIVE METABOLIC [id number] 00:00:00* Test Item Value Reference Range Interpretation Comme nts GLUCOSE (test code = 2217) 269 MG/DL BUN (test code = 2208) 11 MG/DL CREATININE (test code = 2214) 0.89 MG/DL eGFR (2020 CKD-EPI) (test co de = 27175) 70 ML/MIN/1.73 CALC BUN/CREAT (test code = 2235) 12 RATIO SODIUM (test code = 2231) 139 MEQ/L POTASSIUM (test code = 2228) 4.2 MEQ/L CHLORIDE (test code = 2215) 101 MEQ/L CARBON DIOXIDE (test code = 2206) 24 MEQ/L CALCIUM (test code = 2209) 9.1 MG/DL PROTEIN, TOTAL (test code = 2229) 7.8 G/DL ALBUMIN (test code = 2201) 4.5 G/DL CALC GLOBULIN (test code = 2240) 3.3 G/DL CALC A/G RATIO (test code = 2234) 1.4 RATIO BILIRUBIN, TOTAL (test code = 2207) 0.3 MG/DL ALKALINE PHOSPHATASE (test code = 2204) 133 U/L AST (test code = 2218) 33 U/L ALT (test code = 2219) 18 U/L LIPID [id number] 00:00:00* Test Item Value Reference Range Interpretation Comme nts CHOLESTEROL (test code = 2210) 193 MG/DL TRIGLYCERIDES (test code = 2232) 261 MG/DL HDL CHOLESTEROL (test code = 2220) 45 MG/DL CALC LDL CHOL (test code = 2237) 111 MG/DL RISK RATIO LDL/HDL (test cod e = 2238) 2.47 RATIO HEMOGLOBIN [id number] 00:00:00* Test Item Value Reference Range Interpretation Comme nts HEMOGLOBIN A1c (test code = 32512) 9.3 % VITAMIN D, 25 [id number] 00:00:00* Test Item Value Reference Range Interpretation Comme nts VITAMIN D, 25 OH (test code = 4958) 16 NG/ML CBC W/AUTO [id number] 00:00:00* Test Item Value Reference Range Interpretation Comme nts WBC (test code = 1001) 8.5 K/UL [...] = 1013) 0.2 % IMMATURE GRANULOCYTES (test code = 1036) 0.4 % NUCLEATED RBCS (test code = 1065) 0.0 /100WBC'S PLATELET COUNT (test code = 1015) 128 K/UL ABSOLUTE NEUTROPHILS (test c ode = 1066) 6.75 K/UL ABSOLUTE LYMPHOCYTES (test c ode = 1067) 1.15 K/UL ABSOLUTE MONOCYTES (test cod e = 1068) 0.45 K/UL ABSOLUTE EOSINOPHILS (test c ode = 1040) 0.06 K/UL ABSOLUTE BASOPHILS (test cod e = 1069) 0.02 K/UL ABS IMMATURE GRANULOCYTES (t est code = 1020) 0.03 K/UL ABS NUCLEATED RBCS (test cod e = 08141) 0.00 K/UL COMPREHENSIVE METABOLIC [id number] 00:00:00* Test Item Value Reference Range Interpretation Comme nts GLUCOSE (test code = 2217) 269 MG/DL BUN (test code = 2208) 11 MG/DL CREATININE (test code = 2214) 0.89 MG/DL eGFR (2020 CKD-EPI) (test co de = 93244) 70 ML/MIN/1.73 CALC BUN/CREAT (test code = 2235) 12 RATIO SODIUM (test code = 2231) 139 MEQ/L POTASSIUM (test code = 2228) 4.2 MEQ/L CHLORIDE (test code = 2215) 101 MEQ/L CARBON DIOXIDE (test code = 2206) 24 MEQ/L CALCIUM (test code = 2209) 9.1 MG/DL PROTEIN, TOTAL (test code = 2229) 7.8 G/DL ALBUMIN (test code = 2201) 4.5 G/DL CALC GLOBULIN (test code = 2240) 3.3 G/DL CALC A/G RATIO (test code = 2234) 1.4 RATIO BILIRUBIN, TOTAL (test code = 2207) 0.3 MG/DL ALKALINE PHOSPHATASE (test code = 2204) 133 U/L AST (test code = 2218) 33 U/L ALT (test code = 2219) 18 U/L LIPID [id number] 00:00:00* Test Item Value Reference Range Interpretation Comme nts CHOLESTEROL (test code = 2210) 193 MG/DL TRIGLYCERIDES (test code = 2232) 261 MG/DL HDL CHOLESTEROL (test code = 2220) 45 MG/DL CALC LDL CHOL (test code = 2237) 111 MG/DL RISK RATIO LDL/HDL (test cod e = 2238) 2.47 RATIO HEMOGLOBIN [id number] 00:00:00* Test Item Value Reference Range Interpretation Comme nts HEMOGLOBIN A1c (test code = 96210) 9.3 % VITAMIN D, 25 [id number] 00:00:00* Test Item Value Reference Range Interpretation Comme nts VITAMIN D, 25 OH (test code = 4958) 16 NG/ML CBC W/AUTO [id number] 00:00:00* Test Item Value Reference Range Interpretation Comme nts WBC (test code = 1001) 8.5 K/UL [...] = 1013) 0.2 % IMMATURE GRANULOCYTES (test code = 1036) 0.4 % NUCLEATED RBCS (test code = 1065) 0.0 /100WBC'S PLATELET COUNT (test code = 1015) 128 K/UL ABSOLUTE NEUTROPHILS (test c ode = 1066) 6.75 K/UL ABSOLUTE LYMPHOCYTES (test c ode = 1067) 1.15 K/UL ABSOLUTE MONOCYTES (test cod e = 1068) 0.45 K/UL ABSOLUTE EOSINOPHILS (test c ode = 1040) 0.06 K/UL ABSOLUTE BASOPHILS (test cod e = 1069) 0.02 K/UL ABS IMMATURE GRANULOCYTES (t est code = 1020) 0.03 K/UL ABS NUCLEATED RBCS (test cod e = 93873) 0.00 K/UL COMPREHENSIVE METABOLIC [id number] 00:00:00* Test Item Value Reference Range Interpretation Comme nts GLUCOSE (test code = 2217) 269 MG/DL BUN (test code = 2208) 11 MG/DL CREATININE (test code = 2214) 0.89 MG/DL eGFR (2020 CKD-EPI) (test co de = 07636) 70 ML/MIN/1.73 CALC BUN/CREAT (test code = 2235) 12 RATIO SODIUM (test code = 2231) 139 MEQ/L POTASSIUM (test code = 2228) 4.2 MEQ/L CHLORIDE (test code = 2215) 101 MEQ/L CARBON DIOXIDE (test code = 2206) 24 MEQ/L CALCIUM (test code = 2209) 9.1 MG/DL PROTEIN, TOTAL (test code = 2229) 7.8 G/DL ALBUMIN (test code = 2201) 4.5 G/DL CALC GLOBULIN (test code = 2240) 3.3 G/DL CALC A/G RATIO (test code = 2234) 1.4 RATIO BILIRUBIN, TOTAL (test code = 2207) 0.3 MG/DL ALKALINE PHOSPHATASE (test code = 2204) 133 U/L AST (test code = 2218) 33 U/L ALT (test code = 2219) 18 U/L LIPID [id number] 00:00:00* Test Item Value Reference Range Interpretation Comme nts CHOLESTEROL (test code = 2210) 193 MG/DL TRIGLYCERIDES (test code = 2232) 261 MG/DL HDL CHOLESTEROL (test code = 2220) 45 MG/DL CALC LDL CHOL (test code = 2237) 111 MG/DL RISK RATIO LDL/HDL (test cod e = 2238) 2.47 RATIO HEMOGLOBIN [id number] 00:00:00* Test Item Value Reference Range Interpretation Comme [facility] HEMOGLOBIN A1c (test code = 86381) 9.3 % VITAMIN D, 25 [id number] 00:00:00* Test Item Value Reference Range Interpretation Comme [facility] VITAMIN D, 25 OH (test code = 4958) 16 NG/ML COMPREHENSIVE METABOLIC [id number] 00:00:00* Test Item Value Reference Range Interpretation Comme nts GLUCOSE (test code = 2217) 269 MG/DL BUN (test code = 2208) 11 MG/DL CREATININE (test code = 2214) 0.89 MG/DL eGFR (2020 CKD-EPI) (test co de = 48736) 70 ML/MIN/1.73 CALC BUN/CREAT (test code = 2235) 12 RATIO SODIUM (test code = 2231) 139 MEQ/L POTASSIUM (test code = 2228) 4.2 MEQ/L CHLORIDE (test code = 2215) 101 MEQ/L CARBON DIOXIDE (test code = 2206) 24 MEQ/L CALCIUM (test code = 2209) 9.1 MG/DL PROTEIN, TOTAL (test code = 2229) 7.8 G/DL ALBUMIN (test code = 2201) 4.5 G/DL CALC GLOBULIN (test code = 2240) 3.3 G/DL CALC A/G RATIO (test code = 2234) 1.4 RATIO BILIRUBIN, TOTAL (test code = 2207) 0.3 MG/DL ALKALINE PHOSPHATASE (test code = 2204) 133 U/L AST (test code = 2218) 33 U/L ALT (test code = 2219) 18 U/L Lane TafoyaLIPID [id number] 00:00:00* Test Item Value Reference Range Interpretation Comme nts CHOLESTEROL (test code = 2210) 193 MG/DL TRIGLYCERIDES (test code = 2232) 261 MG/DL HDL CHOLESTEROL (test code = 2220) 45 MG/DL CALC LDL CHOL (test code = 2237) 111 MG/DL RISK RATIO LDL/HDL (test cod e = 2238) 2.[address] TafoyaHEMOGLOBIN [id number] 00:00:00* Test Item Value Reference Range Interpretation Comme [facility] HEMOGLOBIN A1c (test code = 59450) 9.3 % Lane TafoyaVITAMIN D, 25 [id number] 00:00:00* Test Item Value Reference Range Interpretation Comme [facility] VITAMIN D, 25 OH (test code = 4958) 16 NG/ML Lane TafoyaCBC W/AUTO [id number] 00:00:00* Test Item Value Reference Range Interpretation Comme nts WBC (test code = 1001) 8.5 K/UL [...] = 1013) 0.2 % IMMATURE GRANULOCYTES (test code = 1036) 0.4 % NUCLEATED RBCS (test code = 1065) 0.0 /100WBC'S PLATELET COUNT (test code = 1015) 128 K/UL ABSOLUTE NEUTROPHILS (test c ode = 1066) 6.75 K/UL ABSOLUTE LYMPHOCYTES (test c ode = 1067) 1.15 K/UL ABSOLUTE MONOCYTES (test cod e = 1068) 0.45 K/UL ABSOLUTE EOSINOPHILS (test c ode = 1040) 0.06 K/UL ABSOLUTE BASOPHILS (test cod e = 1069) 0.02 K/UL ABS IMMATURE GRANULOCYTES (t est code = 1020) 0.03 K/UL ABS NUCLEATED RBCS (test cod e = 11564) 0.00 K/UL Lane TafoyaCOMPREHENSIVE METABOLIC [id number] 00:00:00* Test Item Value Reference Range Interpretation Comme nts GLUCOSE (test code = 2217) 269 MG/DL BUN (test code = 2208) 11 MG/DL CREATININE (test code = 2214) 0.89 MG/DL eGFR (2020 CKD-EPI) (test co de = 43121) 70 ML/MIN/1.73 CALC BUN/CREAT (test code = 2235) 12 RATIO SODIUM (test code = 2231) 139 MEQ/L POTASSIUM (test code = 2228) 4.2 MEQ/L CHLORIDE (test code = 2215) 101 MEQ/L CARBON DIOXIDE (test code = 2206) 24 MEQ/L CALCIUM (test code = 2209) 9.1 MG/DL PROTEIN, TOTAL (test code = 2229) 7.8 G/DL ALBUMIN (test code = 2201) 4.5 G/DL CALC GLOBULIN (test code = 2240) 3.3 G/DL CALC A/G RATIO (test code = 2234) 1.4 RATIO BILIRUBIN, TOTAL (test code = 2207) 0.3 MG/DL ALKALINE PHOSPHATASE (test code = 2204) 133 U/L AST (test code = 2218) 33 U/L ALT (test code = 2219) 18 U/L Lane TafoyaLIPID [id number] 00:00:00* Test Item Value Reference Range Interpretation Comme nts CHOLESTEROL (test code = 2210) 193 MG/DL TRIGLYCERIDES (test code = 2232) 261 MG/DL HDL CHOLESTEROL (test code = 2220) 45 MG/DL CALC LDL CHOL (test code = 2237) 111 MG/DL RISK RATIO LDL/HDL (test cod e = 2238) 2.[address] TafoyaHEMOGLOBIN [id number] 00:00:00* Test Item Value Reference Range Interpretation Comme nts HEMOGLOBIN A1c (test code = 30277) 9.3 % Lane TafoyaVITAMIN D, 25 [id number] 00:00:00* Test Item Value Reference Range Interpretation Comme nts VITAMIN D, 25 OH (test code = 4958) 16 NG/ML Lane TafoyaCOMPREHENSIVE METABOLIC [id number] 05:43:08* Test Item Value Reference Range Interpretation Comme nts GLUCOSE (test code = 2216) 117 MG/DL 70-99 H BUN (test code = 2207) 16 MG/DL 8-23 CREATININE (test code = 2213) 0.77 MG/DL 0.60-1.30 eGFR (2020 CKD-EPI) (test code = ) 83 ML/MIN/1.73 >60 CALC BUN/CREAT (test code = 2234) 21 RATIO 6-28 SODIUM (test code = 2230) 142 MEQ/L 133-146 POTASSIUM (test code = 2227) 4.4 MEQ/L 3.5-5.4 CHLORIDE (test code = 2214) 105 MEQ/L 95-107 CARBON DIOXIDE (test code = 2205) 17 MEQ/L 19-31 L CALCIUM (test code = 2208) 9.6 MG/DL 8.5-10.5 PROTEIN, TOTAL (test code = 2228) 8.2 G/DL 6.1-8.3 ALBUMIN (test code = 2200) 4.5 G/DL 3.5-5.2 CALC GLOBULIN (test code = 2240) 3.7 G/DL 1.9-3.7 CALC A/G RATIO (test code = 2233) 1.2 RATIO 1.0-2.6 BILIRUBIN, TOTAL (test code = 2206) 0.4 MG/DL See_Comment [Automated me ssage] The system which generated this result transmitted reference range: <=1.2. The reference range was not used to interpret this result as normal/abnormal. ALKALINE PHOSPHATASE (test code = 2203) 113 U/L 40-142 AST (test code = 2218) 39 U/L 9-40 ALT (test code = 2219) 18 U/L 5-40 LIPID [id number] 05:43:08* Test Item Value Reference Range Interpretation Comme nts CHOLESTEROL (test code = 0) 180 MG/DL <200 TRIGLYCERIDES (test code = 2232) 142 MG/DL <150 HDL CHOLESTEROL (test code = 2220) 42 MG/DL >39 CALC LDL CHOL (test code = 2237) 113 MG/DL <100 H NOTE: CALCULATED LDL IS BASED ON YIMI-VEGA METHOD WHICHINCLUDES ADJUSTABLE TRIGLYCERIDE:VLDL CHOLESTEROL RATIO.THIS FACTOR VARIES BY MEASURED TRIGLYCERIDE AND NON-HDLCHOLESTEROL CONCENTRATIONS WITH INCREASED CALCULATED LDL SEENIN HIGHER TRIGLYCERIDE OR LOWER NON-HDL SPECIMENS. FOR MOREINFORMATION, SEE CLIENT ANNOUNCEMENT AT [email or web address] RISK RATIO LDL/HDL (test code = 2238) 2.69 RATIO <3.22 HEMOGLOBIN [id number] 03:36:34* Test Item Value Reference Range Interpretation Comme nts HEMOGLOBIN A1c (test code = 92475) 8.2 % 4.2-5.6 H [employer] [employer] GUIDELINES FOR HGB A1C: PREDIABETES/INCREASED RISK . . . . . . . 5.7-6.4% DIAGNOSIS OF DIABETES . . . . . . . . . >=6.5% WITH CONFIRMATION OR APPROPRIATE SYMPTOMS NOTE: ASSAY MAY BE AFFECTED BY HEMOGLOBINOPATHIES (SICKLE CELL ANEMIA, S-C DISEASE, OTHERS) OR ARTIFICIALLY LOWERED BY DECREASED RED CELL SURVIVAL (HEMOLYTIC ANEMIAS, BLOOD LOSS, ETC.). CONSIDER ALTERNATE TESTING OR LABORATORY CONSULTATION. CBC W/AUTO DIFF WITH [id number] 03:15:01* Test Item Value Reference Range Interpretation Comme nts WBC (test code = 1001) 6.8 K/UL 3.5-11.0 RBC (test code = 1002) 4.73 M/UL 3.80-5.40 HEMOGLOBIN (test code = 1003) 13.7 G/DL 11.5-15.5 HEMATOCRIT (test code = 1004) 39.9 % 34.0-45.0 MCV (test code = 1005) 84.4 fL 80.0-99.0 MCH (test code = 1006) 29.0 PG 25.0-33.0 MCHC (test code = 1007) 34.3 G/DL 31.0-36.0 RDW (test code = 1038) 14.4 % 11.5-15.0 NEUTROPHILS (test code = 1008) 75.2 % LYMPHOCYTES (test code = 1010) 16.6 % MONOCYTES (test code = 1011) 6.8 % EOSINOPHILS (test code = 1012) 0.7 % BASOPHILS (test code = 1013) 0.4 % IMMATURE GRANULOCYTES (test code = 1036) 0.3 % NUCLEATED RBCS (test code = 1065) 0.0 /100 WBC'S See_Comment [Automated message] The system which generated this result transmitted reference range: 0.0. The reference range was not used to interpret this result as normal/abnormal. PLATELET COUNT (test code = 1015) 126 K/UL 130-400 L ABSOLUTE NEUTROPHILS (test code = 1066) 5.12 K/UL 1.50-7.50 ABSOLUTE LYMPHOCYTES (test code = 1067) 1.13 K/UL 1.00-4.00 ABSOLUTE MONOCYTES (test code = 1068) 0.46 K/UL 0.20-1.00 ABSOLUTE EOSINOPHILS (test code = 1040) 0.05 K/UL 0.00-0.50 ABSOLUTE BASOPHILS (test code = 1069) 0.03 K/UL 0.00-0.20 ABS IMMATURE GRANULOCYTES (test code = 1020) 0.02 K/UL 0.00-0.10 ABS NUCLEATED RBCS (test code = 13072) 0.00 K/UL 0.00-0.11 UNLESS OTHER TERRAZAS INDICATED, ALL TESTING PERFORMED [facility] [address] [place] [address] PROJECT DIRECTOR: DAVID GUALLPA M.D. CLIA NUMBER [id number] [facility] [place]. [id number] COMPREHENSIVE METABOLIC [id number] 00:00:00* Test Item Value Reference Range Interpretation Comme nts GLUCOSE (test code = 2217) 117 MG/DL BUN (test code = 2208) 16 MG/DL CREATININE (test code = 2214) 0.77 MG/DL eGFR (2020 CKD-EPI) (test co de = 59736) 83 ML/MIN/1.73 CALC BUN/CREAT (test code = 2235) 21 RATIO SODIUM (test code = 2231) 142 MEQ/L POTASSIUM (test code = 2228) 4.4 MEQ/L CHLORIDE (test code = 2215) 105 MEQ/L CARBON DIOXIDE (test code = 2206) 17 MEQ/L CALCIUM (test code = 2209) 9.6 MG/DL PROTEIN, TOTAL (test code = 2229) 8.2 G/DL ALBUMIN (test code = 2201) 4.5 G/DL CALC GLOBULIN (test code = 2240) 3.7 G/DL CALC A/G RATIO (test code = 2234) 1.2 RATIO BILIRUBIN, TOTAL (test code = 2207) 0.4 MG/DL ALKALINE PHOSPHATASE (test code = 2204) 113 U/L AST (test code = 2218) 39 U/L ALT (test code = 2219) 18 U/L Lane TafoyaLIPID [id number] 00:00:00* Test Item Value Reference Range Interpretation Comme nts CHOLESTEROL (test code = 2210) 180 MG/DL TRIGLYCERIDES (test code = 2232) 142 MG/DL HDL CHOLESTEROL (test code = 2220) 42 MG/DL CALC LDL CHOL (test code = 2237) 113 MG/DL RISK RATIO LDL/HDL (test cod e = 2238) 2.[address] TafoyaCBC W/AUTO [id number] 00:00:00* Test Item Value Reference Range Interpretation Comme nts WBC (test code = 1001) 6.8 K/UL [...] = 1013) 0.4 % IMMATURE GRANULOCYTES (test code = 1036) 0.3 % NUCLEATED RBCS (test code = 1065) 0.0 /100WBC'S PLATELET COUNT (test code = 1015) 126 K/UL ABSOLUTE NEUTROPHILS (test c ode = 1066) 5.12 K/UL ABSOLUTE LYMPHOCYTES (test c ode = 1067) 1.13 K/UL ABSOLUTE MONOCYTES (test cod e = 1068) 0.46 K/UL ABSOLUTE EOSINOPHILS (test c ode = 1040) 0.05 K/UL ABSOLUTE BASOPHILS (test cod e = 1069) 0.03 K/UL ABS IMMATURE GRANULOCYTES (t est code = 1020) 0.02 K/UL ABS NUCLEATED RBCS (test cod e = 05765) 0.00 K/UL Lane Urban AustinHEMOGLOBIN [id number] 00:00:00* Test Item Value Reference Range Interpretation Comme nts HEMOGLOBIN A1c (test code = 11101) 8.2 % COMPREHENSIVE METABOLIC [id number] 00:00:00* Test Item Value Reference Range Interpretation Comme nts GLUCOSE (test code = 2217) 117 MG/DL BUN (test code = 2208) 16 MG/DL CREATININE (test code = 2214) 0.77 MG/DL eGFR (2020 CKD-EPI) (test co de = 65168) 83 ML/MIN/1.73 CALC BUN/CREAT (test code = 2235) 21 RATIO SODIUM (test code = 2231) 142 MEQ/L POTASSIUM (test code = 2228) 4.4 MEQ/L CHLORIDE (test code = 2215) 105 MEQ/L CARBON DIOXIDE (test code = 2206) 17 MEQ/L CALCIUM (test code = 2209) 9.6 MG/DL PROTEIN, TOTAL (test code = 2229) 8.2 G/DL ALBUMIN (test code = 2201) 4.5 G/DL CALC GLOBULIN (test code = 2240) 3.7 G/DL CALC A/G RATIO (test code = 2234) 1.2 RATIO BILIRUBIN, TOTAL (test code = 2207) 0.4 MG/DL ALKALINE PHOSPHATASE (test code = 2204) 113 U/L AST (test code = 2218) 39 U/L ALT (test code = 2219) 18 U/L LIPID [id number] 00:00:00* Test Item Value Reference Range Interpretation Comme nts CHOLESTEROL (test code = 2210) 180 MG/DL TRIGLYCERIDES (test code = 2232) 142 MG/DL HDL CHOLESTEROL (test code = 2220) 42 MG/DL CALC LDL CHOL (test code = 2237) 113 MG/DL RISK RATIO LDL/HDL (test cod e = 2238) 2.69 RATIO CBC W/AUTO [id number] 00:00:00* Test Item Value Reference Range Interpretation Comme nts WBC (test code = 1001) 6.8 K/UL [...] = 1013) 0.4 % IMMATURE GRANULOCYTES (test code = 1036) 0.3 % NUCLEATED RBCS (test code = 1065) 0.0 /100WBC'S PLATELET COUNT (test code = 1015) 126 K/UL ABSOLUTE NEUTROPHILS (test c ode = 1066) 5.12 K/UL ABSOLUTE LYMPHOCYTES (test c ode = 1067) 1.13 K/UL ABSOLUTE MONOCYTES (test cod e = 1068) 0.46 K/UL ABSOLUTE EOSINOPHILS (test c ode = 1040) 0.05 K/UL ABSOLUTE BASOPHILS (test cod e = 1069) 0.03 K/UL ABS IMMATURE GRANULOCYTES (t est code = 1020) 0.02 K/UL ABS NUCLEATED RBCS (test cod e = 42052) 0.00 K/UL HEMOGLOBIN [id number] 00:00:00* Test Item Value Reference Range Interpretation Comme nts HEMOGLOBIN A1c (test code = 86358) 8.2 % COMPREHENSIVE METABOLIC [id number] 00:00:00* Test Item Value Reference Range Interpretation Comme nts GLUCOSE (test code = 2217) 117 MG/DL BUN (test code = 2208) 16 MG/DL CREATININE (test code = 2214) 0.77 MG/DL eGFR (2020 CKD-EPI) (test co de = 74311) 83 ML/MIN/1.73 CALC BUN/CREAT (test code = 2235) 21 RATIO SODIUM (test code = 2231) 142 MEQ/L POTASSIUM (test code = 2228) 4.4 MEQ/L CHLORIDE (test code = 2215) 105 MEQ/L CARBON DIOXIDE (test code = 2206) 17 MEQ/L CALCIUM (test code = 2209) 9.6 MG/DL PROTEIN, TOTAL (test code = 2229) 8.2 G/DL ALBUMIN (test code = 2201) 4.5 G/DL CALC GLOBULIN (test code = 2240) 3.7 G/DL CALC A/G RATIO (test code = 2234) 1.2 RATIO BILIRUBIN, TOTAL (test code = 2207) 0.4 MG/DL ALKALINE PHOSPHATASE (test code = 2204) 113 U/L AST (test code = 2218) 39 U/L ALT (test code = 2219) 18 U/L HEMOGLOBIN [id number] 00:00:00* Test Item Value Reference Range Interpretation Comme nts HEMOGLOBIN A1c (test code = 03173) 8.2 % [address] Urban AustinLIPID [id number] 00:00:00* Test Item Value Reference Range Interpretation Comme nts CHOLESTEROL (test code = 2210) 180 MG/DL TRIGLYCERIDES (test code = 2232) 142 MG/DL HDL CHOLESTEROL (test code = 2220) 42 MG/DL CALC LDL CHOL (test code = 2237) 113 MG/DL RISK RATIO LDL/HDL (test cod e = 2238) 2.69 RATIO CBC W/AUTO [id number] 00:00:00* Test Item Value Reference Range Interpretation Comme nts WBC (test code = 1001) 6.8 K/UL [...] = 1013) 0.4 % IMMATURE GRANULOCYTES (test code = 1036) 0.3 % NUCLEATED RBCS (test code = 1065) 0.0 /100WBC'S PLATELET COUNT (test code = 1015) 126 K/UL ABSOLUTE NEUTROPHILS (test c ode = 1066) 5.12 K/UL ABSOLUTE LYMPHOCYTES (test c ode = 1067) 1.13 K/UL ABSOLUTE MONOCYTES (test cod e = 1068) 0.46 K/UL ABSOLUTE EOSINOPHILS (test c ode = 1040) 0.05 K/UL ABSOLUTE BASOPHILS (test cod e = 1069) 0.03 K/UL ABS IMMATURE GRANULOCYTES (t est code = 1020) 0.02 K/UL ABS NUCLEATED RBCS (test cod e = 18068) 0.00 K/UL HEMOGLOBIN [id number] 00:00:00* Test Item Value Reference Range Interpretation Comme nts HEMOGLOBIN A1c (test code = 75056) 8.2 % COMPREHENSIVE METABOLIC [id number] 00:00:00* Test Item Value Reference Range Interpretation Comme nts GLUCOSE (test code = 2217) 117 MG/DL BUN (test code = 2208) 16 MG/DL CREATININE (test code = 2214) 0.77 MG/DL eGFR (2020 CKD-EPI) (test co de = 85623) 83 ML/MIN/1.73 CALC BUN/CREAT (test code = 2235) 21 RATIO SODIUM (test code = 2231) 142 MEQ/L POTASSIUM (test code = 2228) 4.4 MEQ/L CHLORIDE (test code = 2215) 105 MEQ/L CARBON DIOXIDE (test code = 2206) 17 MEQ/L CALCIUM (test code = 2209) 9.6 MG/DL PROTEIN, TOTAL (test code = 2229) 8.2 G/DL ALBUMIN (test code = 2201) 4.5 G/DL CALC GLOBULIN (test code = 2240) 3.7 G/DL CALC A/G RATIO (test code = 2234) 1.2 RATIO BILIRUBIN, TOTAL (test code = 2207) 0.4 MG/DL ALKALINE PHOSPHATASE (test code = 2204) 113 U/L AST (test code = 2218) 39 U/L ALT (test code = 2219) 18 U/L LIPID [id number] 00:00:00* Test Item Value Reference Range Interpretation Comme nts CHOLESTEROL (test code = 2210) 180 MG/DL TRIGLYCERIDES (test code = 2232) 142 MG/DL HDL CHOLESTEROL (test code = 2220) 42 MG/DL CALC LDL CHOL (test code = 2237) 113 MG/DL RISK RATIO LDL/HDL (test cod e = 2238) 2.69 RATIO CBC W/AUTO [id number] 00:00:00* Test Item Value Reference Range Interpretation Comme nts WBC (test code = 1001) 6.8 K/UL [...] = 1013) 0.4 % IMMATURE GRANULOCYTES (test code = 1036) 0.3 % NUCLEATED RBCS (test code = 1065) 0.0 /100WBC'S PLATELET COUNT (test code = 1015) 126 K/UL ABSOLUTE NEUTROPHILS (test c ode = 1066) 5.12 K/UL ABSOLUTE LYMPHOCYTES (test c ode = 1067) 1.13 K/UL ABSOLUTE MONOCYTES (test cod e = 1068) 0.46 K/UL ABSOLUTE EOSINOPHILS (test c ode = 1040) 0.05 K/UL ABSOLUTE BASOPHILS (test cod e = 1069) 0.03 K/UL ABS IMMATURE GRANULOCYTES (t est code = 1020) 0.02 K/UL ABS NUCLEATED RBCS (test cod e = 32673) 0.00 K/UL HEMOGLOBIN [id number] 00:00:00* Test Item Value Reference Range Interpretation Comme nts HEMOGLOBIN A1c (test code = 56312) 8.2 % COMPREHENSIVE METABOLIC [id number] 00:00:00* Test Item Value Reference Range Interpretation Comme nts GLUCOSE (test code = 2217) 117 MG/DL BUN (test code = 2208) 16 MG/DL CREATININE (test code = 2214) 0.77 MG/DL eGFR (2020 CKD-EPI) (test co de = 72061) 83 ML/MIN/1.73 CALC BUN/CREAT (test code = 2235) 21 RATIO SODIUM (test code = 2231) 142 MEQ/L POTASSIUM (test code = 2228) 4.4 MEQ/L CHLORIDE (test code = 2215) 105 MEQ/L CARBON DIOXIDE (test code = 2206) 17 MEQ/L CALCIUM (test code = 2209) 9.6 MG/DL PROTEIN, TOTAL (test code = 2229) 8.2 G/DL ALBUMIN (test code = 2201) 4.5 G/DL CALC GLOBULIN (test code = 2240) 3.7 G/DL CALC A/G RATIO (test code = 2234) 1.2 RATIO BILIRUBIN, TOTAL (test code = 2207) 0.4 MG/DL ALKALINE PHOSPHATASE (test code = 2204) 113 U/L AST (test code = 2218) 39 U/L ALT (test code = 2219) 18 U/L LIPID [id number] 00:00:00* Test Item Value Reference Range Interpretation Comme nts CHOLESTEROL (test code = 2210) 180 MG/DL TRIGLYCERIDES (test code = 2232) 142 MG/DL HDL CHOLESTEROL (test code = 2220) 42 MG/DL CALC LDL CHOL (test code = 2237) 113 MG/DL RISK RATIO LDL/HDL (test cod e = 2238) 2.69 RATIO CBC W/AUTO [id number] 00:00:00* Test Item Value Reference Range Interpretation Comme nts WBC (test code = 1001) 6.8 K/UL [...] = 1013) 0.4 % IMMATURE GRANULOCYTES (test code = 1036) 0.3 % NUCLEATED RBCS (test code = 1065) 0.0 /100WBC'S PLATELET COUNT (test code = 1015) 126 K/UL ABSOLUTE NEUTROPHILS (test c ode = 1066) 5.12 K/UL ABSOLUTE LYMPHOCYTES (test c ode = 1067) 1.13 K/UL ABSOLUTE MONOCYTES (test cod e = 1068) 0.46 K/UL ABSOLUTE EOSINOPHILS (test c ode = 1040) 0.05 K/UL ABSOLUTE BASOPHILS (test cod e = 1069) 0.03 K/UL ABS IMMATURE GRANULOCYTES (t est code = 1020) 0.02 K/UL ABS NUCLEATED RBCS (test cod e = 31013) 0.00 K/UL HEMOGLOBIN [id number] 00:00:00* Test Item Value Reference Range Interpretation Comme nts HEMOGLOBIN A1c (test code = 98373) 8.2 % COMPREHENSIVE METABOLIC [id number] 00:00:00* Test Item Value Reference Range Interpretation Comme nts GLUCOSE (test code = 2217) 117 MG/DL BUN (test code = 2208) 16 MG/DL CREATININE (test code = 2214) 0.77 MG/DL eGFR (2020 CKD-EPI) (test co de = 93743) 83 ML/MIN/1.73 CALC BUN/CREAT (test code = 2235) 21 RATIO SODIUM (test code = 2231) 142 MEQ/L POTASSIUM (test code = 2228) 4.4 MEQ/L CHLORIDE (test code = 2215) 105 MEQ/L CARBON DIOXIDE (test code = 2206) 17 MEQ/L CALCIUM (test code = 2209) 9.6 MG/DL PROTEIN, TOTAL (test code = 2229) 8.2 G/DL ALBUMIN (test code = 2201) 4.5 G/DL CALC GLOBULIN (test code = 2240) 3.7 G/DL CALC A/G RATIO (test code = 2234) 1.2 RATIO BILIRUBIN, TOTAL (test code = 2207) 0.4 MG/DL ALKALINE PHOSPHATASE (test code = 2204) 113 U/L AST (test code = 2218) 39 U/L ALT (test code = 2219) 18 U/L LIPID [id number] 00:00:00* Test Item Value Reference Range Interpretation Comme nts CHOLESTEROL (test code = 2210) 180 MG/DL TRIGLYCERIDES (test code = 2232) 142 MG/DL HDL CHOLESTEROL (test code = 2220) 42 MG/DL CALC LDL CHOL (test code = 2237) 113 MG/DL RISK RATIO LDL/HDL (test cod e = 2238) 2.69 RATIO CBC W/AUTO [id number] 00:00:00* Test Item Value Reference Range Interpretation Comme nts WBC (test code = 1001) 6.8 K/UL [...] = 1013) 0.4 % IMMATURE GRANULOCYTES (test code = 1036) 0.3 % NUCLEATED RBCS (test code = 1065) 0.0 /100WBC'S PLATELET COUNT (test code = 1015) 126 K/UL ABSOLUTE NEUTROPHILS (test c ode = 1066) 5.12 K/UL ABSOLUTE LYMPHOCYTES (test c ode = 1067) 1.13 K/UL ABSOLUTE MONOCYTES (test cod e = 1068) 0.46 K/UL ABSOLUTE EOSINOPHILS (test c ode = 1040) 0.05 K/UL ABSOLUTE BASOPHILS (test cod e = 1069) 0.03 K/UL ABS IMMATURE GRANULOCYTES (t est code = 1020) 0.02 K/UL ABS NUCLEATED RBCS (test cod e = 15550) 0.00 K/UL COMPREHENSIVE METABOLIC [id number] 00:00:00* Test Item Value Reference Range Interpretation Comme nts GLUCOSE (test code = 2217) 117 MG/DL BUN (test code = 2208) 16 MG/DL CREATININE (test code = 2214) 0.77 MG/DL eGFR (2020 CKD-EPI) (test co de = 67458) 83 ML/MIN/1.73 CALC BUN/CREAT (test code = 2235) 21 RATIO SODIUM (test code = 2231) 142 MEQ/L POTASSIUM (test code = 2228) 4.4 MEQ/L CHLORIDE (test code = 2215) 105 MEQ/L CARBON DIOXIDE (test code = 2206) 17 MEQ/L CALCIUM (test code = 2209) 9.6 MG/DL PROTEIN, TOTAL (test code = 2229) 8.2 G/DL ALBUMIN (test code = 2201) 4.5 G/DL CALC GLOBULIN (test code = 2240) 3.7 G/DL CALC A/G RATIO (test code = 2234) 1.2 RATIO BILIRUBIN, TOTAL (test code = 2207) 0.4 MG/DL ALKALINE PHOSPHATASE (test code = 2204) 113 U/L AST (test code = 2218) 39 U/L ALT (test code = 2219) 18 U/L Lane [facility] MicheletLIPID [id number] 00:00:00* Test Item Value Reference Range Interpretation Comme nts CHOLESTEROL (test code = 2210) 180 MG/DL TRIGLYCERIDES (test code = 2232) 142 MG/DL HDL CHOLESTEROL (test code = 2220) 42 MG/DL CALC LDL CHOL (test code = 2237) 113 MG/DL RISK RATIO LDL/HDL (test cod e = 2238) 2.[address] TafoyaCBC W/AUTO [id number] 00:00:00* Test Item Value Reference Range Interpretation Comme nts WBC (test code = 1001) 6.8 K/UL [...] = 1013) 0.4 % IMMATURE GRANULOCYTES (test code = 1036) 0.3 % NUCLEATED RBCS (test code = 1065) 0.0 /100WBC'S PLATELET COUNT (test code = 1015) 126 K/UL ABSOLUTE NEUTROPHILS (test c ode = 1066) 5.12 K/UL ABSOLUTE LYMPHOCYTES (test c ode = 1067) 1.13 K/UL ABSOLUTE MONOCYTES (test cod e = 1068) 0.46 K/UL ABSOLUTE EOSINOPHILS (test c ode = 1040) 0.05 K/UL ABSOLUTE BASOPHILS (test cod e = 1069) 0.03 K/UL ABS IMMATURE GRANULOCYTES (t est code = 1020) 0.02 K/UL ABS NUCLEATED RBCS (test cod e = 38225) 0.00 K/UL Lane TafoyaHEMOGLOBIN [id number] 00:00:00* Test Item Value Reference Range Interpretation Comme nts HEMOGLOBIN A1c (test code = 87219) 8.2 % Lane TafoyaCOMPREHENSIVE METABOLIC [id number] 00:00:00* Test Item Value Reference Range Interpretation Comme nts GLUCOSE (test code = 2217) 117 MG/DL BUN (test code = 2208) 16 MG/DL CREATININE (test code = 2214) 0.77 MG/DL eGFR (2020 CKD-EPI) (test co de = 50947) 83 ML/MIN/1.73 CALC BUN/CREAT (test code = 2235) 21 RATIO SODIUM (test code = 2231) 142 MEQ/L POTASSIUM (test code = 2228) 4.4 MEQ/L CHLORIDE (test code = 2215) 105 MEQ/L CARBON DIOXIDE (test code = 2206) 17 MEQ/L CALCIUM (test code = 2209) 9.6 MG/DL PROTEIN, TOTAL (test code = 2229) 8.2 G/DL ALBUMIN (test code = 2201) 4.5 G/DL CALC GLOBULIN (test code = 2240) 3.7 G/DL CALC A/G RATIO (test code = 2234) 1.2 RATIO BILIRUBIN, TOTAL (test code = 2207) 0.4 MG/DL ALKALINE PHOSPHATASE (test code = 2204) 113 U/L AST (test code = 2218) 39 U/L ALT (test code = 2219) 18 U/L Lane TafoyaLIPID [id number] 00:00:00* Test Item Value Reference Range Interpretation Comme nts CHOLESTEROL (test code = 2210) 180 MG/DL TRIGLYCERIDES (test code = 2232) 142 MG/DL HDL CHOLESTEROL (test code = 2220) 42 MG/DL CALC LDL CHOL (test code = 2237) 113 MG/DL RISK RATIO LDL/HDL (test cod e = 2238) 2.[address] TafoyaCBC W/AUTO [id number] 00:00:00* Test Item Value Reference Range Interpretation Comme nts WBC (test code = 1001) 6.8 K/UL [...] = 1013) 0.4 % IMMATURE GRANULOCYTES (test code = 1036) 0.3 % NUCLEATED RBCS (test code = 1065) 0.0 /100WBC'S PLATELET COUNT (test code = 1015) 126 K/UL ABSOLUTE NEUTROPHILS (test c ode = 1066) 5.12 K/UL ABSOLUTE LYMPHOCYTES (test c ode = 1067) 1.13 K/UL ABSOLUTE MONOCYTES (test cod e = 1068) 0.46 K/UL ABSOLUTE EOSINOPHILS (test c ode = 1040) 0.05 K/UL ABSOLUTE BASOPHILS (test cod e = 1069) 0.03 K/UL ABS IMMATURE GRANULOCYTES (t est code = 1020) 0.02 K/UL ABS NUCLEATED RBCS (test cod e = 79814) 0.00 K/UL Lane TafoyaHEMOGLOBIN [id number] 00:00:00* Test Item Value Reference Range Interpretation Comme nts HEMOGLOBIN A1c (test code = 49584) 8.2 % Lane TafoyaAUGUSTINE, [id number] 13:08:15SPECIMEN NUMBER: [id number] CULTURE, ROUTINE SPECIMEN NUMBER: [id number] SPECIMEN COMMENT: L 1ST TOE SOURCE: TOE REPORT STATUS: FINAL DIRECT GRAM STAIN: NO WBCs SEEN RARE GRAM VARIABLE BACILLI FEW GRAMPOSITIVE COCCI IN PAIRS AND CLUSTERS ISOLATE NUMBER [...] SENSITIVE 2OXACILLIN RESISTANT >2PIP/TAZOBAC SENSITIVE <=16RIFAMPIN SENSITIVE &lt ;=1TETRACYCLINE SENSITIVE <=1TOBRAMYCIN SENSITIVE <=4TRIMETH/SULFA SENSITIVE 2/38VANCOMYCIN SENSITIVE 1 NOTE: NUMBERS DISPLAYED REPRESENT MINIMUM INHIBITORY CONCENTRATION (JEIMY) WHICH IS EXPRESSED IN MCG/ML. UNLESS OTHERWISE INDICATED, ALL TESTING PERFORMED [facility] [address] [place] [address] PROJECT DIRECTOR: DAVID GUALLPA M.D. CLIA NUMBER [id number] [facility] [place]. [id number], [id number] 00:00:00* Test Item Value Reference Range Interpretation Comme nts CULTURE, ROUTINE (test code = 78643) SPECIMEN NUMBER: [id number] CULTURE, [id number] 00:00:00* Test Item Value Reference Range Interpretation Comme nts CULTURE, ROUTINE (test code = 38449) SPECIMEN NUMBER: [id number] CULTURE, [id number] 00:00:00* Test Item Value Reference Range Interpretation Comme nts CULTURE, ROUTINE (test code = 29545) SPECIMEN NUMBER: [id number] Lane PappasURE, [id number] 00:00:00* Test Item Value Reference Range Interpretation Comme nts CULTURE, ROUTINE (test code = 14821) SPECIMEN NUMBER: [id number] CULTURE, [id number] 00:00:00* Test Item Value Reference Range Interpretation Comme nts CULTURE, ROUTINE (test code = 59606) SPECIMEN NUMBER: [id number] CULTURE, [id number] 00:00:00* Test Item Value Reference Range Interpretation Comme nts CULTURE, ROUTINE (test code = 04854) SPECIMEN NUMBER: [id number] CULTURE, [id number] 00:00:00* Test Item Value Reference Range Interpretation Comme nts CULTURE, ROUTINE (test code = 01749) SPECIMEN NUMBER: [id number] Lane Urban AustinCULTURE, [id number] 00:00:00* Test Item Value Reference Range Interpretation Comme nts CULTURE, ROUTINE (test code = 15359) SPECIMEN NUMBER: [id number] Lane Urban [id number] 00:00:00* Test Item Value Reference Range Interpretation Comme nts AMYLASE (test code = 2205) 107 U/L [address] Urban [id number] 00:00:00* Test Item Value Reference Range Interpretation Comme nts LIPASE (test code = 2058) 21 U/L Lane TafoyaCBC W/AUTO [id number] 00:00:00* Test Item Value Reference Range Interpretation Comme nts WBC (test code = 1001) 6.3 K/UL [...] = 1013) 0.5 % IMMATURE GRANULOCYTES (test code = 1036) 0.6 % NUCLEATED RBCS (test code = 1065) 0.0 /100WBC'S PLATELET COUNT (test code = 1015) 99 K/UL ABSOLUTE NEUTROPHILS (test c ode = 1066) 4.72 K/UL ABSOLUTE LYMPHOCYTES (test c ode = 1067) 0.98 K/UL ABSOLUTE MONOCYTES (test cod e = 1068) 0.47 K/UL ABSOLUTE EOSINOPHILS (test c ode = 1040) 0.07 K/UL ABSOLUTE BASOPHILS (test cod e = 1069) 0.03 K/UL ABS IMMATURE GRANULOCYTES (t est code = 1020) 0.04 K/UL ABS NUCLEATED RBCS (test cod e = 64870) 0.00 K/UL Lane F [id number] 00:00:00* Test Item Value Reference Range Interpretation Comme nts AMYLASE (test code = 2205) 107 U/L Lane F [id number] 00:00:00* Test Item Value Reference Range Interpretation Comme nts AMYLASE (test code = 2205) 107 U/L [id number] 00:00:00* Test Item Value Reference Range Interpretation Comme nts LIPASE (test code = 2058) 21 U/L CBC W/AUTO [id number] 00:00:00* Test Item Value Reference Range Interpretation Comme nts WBC (test code = 1001) 6.3 K/UL [...] = 1013) 0.5 % IMMATURE GRANULOCYTES (test code = 1036) 0.6 % NUCLEATED RBCS (test code = 1065) 0.0 /100WBC'S PLATELET COUNT (test code = 1015) 99 K/UL ABSOLUTE NEUTROPHILS (test c ode = 1066) 4.72 K/UL ABSOLUTE LYMPHOCYTES (test c ode = 1067) 0.98 K/UL ABSOLUTE MONOCYTES (test cod e = 1068) 0.47 K/UL ABSOLUTE EOSINOPHILS (test c ode = 1040) 0.07 K/UL ABSOLUTE BASOPHILS (test cod e = 1069) 0.03 K/UL ABS IMMATURE GRANULOCYTES (t est code = 1020) 0.04 K/UL ABS NUCLEATED RBCS (test cod e = 73396) 0.00 K/UL [id number] 00:00:00* Test Item Value Reference Range Interpretation Comme nts AMYLASE (test code = 2205) 107 U/L [id number] 00:00:00* Test Item Value Reference Range Interpretation Comme nts LIPASE (test code = 2057) 21 U/L CBC W/AUTO [id number] 00:00:00* Test Item Value Reference Range Interpretation Comme nts WBC (test code = 1001) 6.3 K/UL [...] = 1013) 0.5 % IMMATURE GRANULOCYTES (test code = 1036) 0.6 % NUCLEATED RBCS (test code = 1065) 0.0 /100WBC'S PLATELET COUNT (test code = 1015) 99 K/UL ABSOLUTE NEUTROPHILS (test c ode = 1066) 4.72 K/UL ABSOLUTE LYMPHOCYTES (test c ode = 1067) 0.98 K/UL ABSOLUTE MONOCYTES (test cod e = 1068) 0.47 K/UL ABSOLUTE EOSINOPHILS (test c ode = 1040) 0.07 K/UL ABSOLUTE BASOPHILS (test cod e = 1069) 0.03 K/UL ABS IMMATURE GRANULOCYTES (t est code = 1020) 0.04 K/UL ABS NUCLEATED RBCS (test cod e = 43408) 0.00 K/UL [id number] 00:00:00* Test Item Value Reference Range Interpretation Comme nts AMYLASE (test code = 2205) 107 U/L [id number] 00:00:00* Test Item Value Reference Range Interpretation Comme nts LIPASE (test code = 2057) 21 U/L CBC W/AUTO [id number] 00:00:00* Test Item Value Reference Range Interpretation Comme nts WBC (test code = 1001) 6.3 K/UL [...] = 1013) 0.5 % IMMATURE GRANULOCYTES (test code = 1036) 0.6 % NUCLEATED RBCS (test code = 1065) 0.0 /100WBC'S PLATELET COUNT (test code = 1015) 99 K/UL ABSOLUTE NEUTROPHILS (test c ode = 1066) 4.72 K/UL ABSOLUTE LYMPHOCYTES (test c ode = 1067) 0.98 K/UL ABSOLUTE MONOCYTES (test cod e = 1068) 0.47 K/UL ABSOLUTE EOSINOPHILS (test c ode = 1040) 0.07 K/UL ABSOLUTE BASOPHILS (test cod e = 1069) 0.03 K/UL ABS IMMATURE GRANULOCYTES (t est code = 1020) 0.04 K/UL ABS NUCLEATED RBCS (test cod e = 17579) 0.00 K/UL [id number] 00:00:00* Test Item Value Reference Range Interpretation Comme nts AMYLASE (test code = 5) 107 U/L [id number] 00:00:00* Test Item Value Reference Range Interpretation Comme nts LIPASE (test code = 2057) 21 U/L CBC W/AUTO [id number] 00:00:00* Test Item Value Reference Range Interpretation Comme nts WBC (test code = 1001) 6.3 K/UL [...] = 1013) 0.5 % IMMATURE GRANULOCYTES (test code = 1036) 0.6 % NUCLEATED RBCS (test code = 1065) 0.0 /100WBC'S PLATELET COUNT (test code = 1015) 99 K/UL ABSOLUTE NEUTROPHILS (test c ode = 1066) 4.72 K/UL ABSOLUTE LYMPHOCYTES (test c ode = 1067) 0.98 K/UL ABSOLUTE MONOCYTES (test cod e = 1068) 0.47 K/UL ABSOLUTE EOSINOPHILS (test c ode = 1040) 0.07 K/UL ABSOLUTE BASOPHILS (test cod e = 1069) 0.03 K/UL ABS IMMATURE GRANULOCYTES (t est code = 1020) 0.04 K/UL ABS NUCLEATED RBCS (test cod e = 57682) 0.00 K/UL [id number] 00:00:00* Test Item Value Reference Range Interpretation Comme nts AMYLASE (test code = 2205) 107 U/L [id number] 00:00:00* Test Item Value Reference Range Interpretation Comme nts LIPASE (test code = 2058) 21 U/L CBC W/AUTO [id number] 00:00:00* Test Item Value Reference Range Interpretation Comme nts WBC (test code = 1001) 6.3 K/UL [...] = 1013) 0.5 % IMMATURE GRANULOCYTES (test code = 1036) 0.6 % NUCLEATED RBCS (test code = 1065) 0.0 /100WBC'S PLATELET COUNT (test code = 1015) 99 K/UL ABSOLUTE NEUTROPHILS (test c ode = 1066) 4.72 K/UL ABSOLUTE LYMPHOCYTES (test c ode = 1067) 0.98 K/UL ABSOLUTE MONOCYTES (test cod e = 1068) 0.47 K/UL ABSOLUTE EOSINOPHILS (test c ode = 1040) 0.07 K/UL ABSOLUTE BASOPHILS (test cod e = 1069) 0.03 K/UL ABS IMMATURE GRANULOCYTES (t est code = 1020) 0.04 K/UL ABS NUCLEATED RBCS (test cod e = 02306) 0.00 K/UL [id number] 00:00:00* Test Item Value Reference Range Interpretation Comme nts LIPASE (test code = 2058) 21 U/L Lane [facility] MicheletCBC W/AUTO [id number] 00:00:00* Test Item Value Reference Range Interpretation Comme nts WBC (test code = 1001) 6.3 K/UL [...] = 1013) 0.5 % IMMATURE GRANULOCYTES (test code = 1036) 0.6 % NUCLEATED RBCS (test code = 1065) 0.0 /100WBC'S PLATELET COUNT (test code = 1015) 99 K/UL ABSOLUTE NEUTROPHILS (test c ode = 1066) 4.72 K/UL ABSOLUTE LYMPHOCYTES (test c ode = 1067) 0.98 K/UL ABSOLUTE MONOCYTES (test cod e = 1068) 0.47 K/UL ABSOLUTE EOSINOPHILS (test c ode = 1040) 0.07 K/UL ABSOLUTE BASOPHILS (test cod e = 1069) 0.03 K/UL ABS IMMATURE GRANULOCYTES (t est code = 1020) 0.04 K/UL ABS NUCLEATED RBCS (test cod e = 20281) 0.00 K/UL [facility] [id number] 00:00:00* Test Item Value Reference Range Interpretation Comme nts AMYLASE (test code = 2205) 107 U/L Lane [id number] 00:00:00* Test Item Value Reference Range Interpretation Comme nts LIPASE (test code = 2058) 21 U/L Lane TafoyaCBC W/AUTO [id number] 00:00:00* Test Item Value Reference Range Interpretation Comme nts WBC (test code = 1001) 6.3 K/UL [...] = 1013) 0.5 % IMMATURE GRANULOCYTES (test code = 1036) 0.6 % NUCLEATED RBCS (test code = 1065) 0.0 /100WBC'S PLATELET COUNT (test code = 1015) 99 K/UL ABSOLUTE NEUTROPHILS (test c ode = 1066) 4.72 K/UL ABSOLUTE LYMPHOCYTES (test c ode = 1067) 0.98 K/UL ABSOLUTE MONOCYTES (test cod e = 1068) 0.47 K/UL ABSOLUTE EOSINOPHILS (test c ode = 1040) 0.07 K/UL ABSOLUTE BASOPHILS (test cod e = 1069) 0.03 K/UL ABS IMMATURE GRANULOCYTES (t est code = 1020) 0.04 K/UL ABS NUCLEATED RBCS (test cod e = 50820) 0.00 K/UL [facility] AustinHEMOGLOBIN [id number] 00:00:00* Test Item Value Reference Range Interpretation Comme nts HEMOGLOBIN A1c (test code = 77464) 9.5 % [address] [facility] AustinHEMOGLOBIN [id number] 00:00:00* Test Item Value Reference Range Interpretation Comme nts HEMOGLOBIN A1c (test code = 97706) 9.5 % HEMOGLOBIN [id number] 00:00:00* Test Item Value Reference Range Interpretation Comme nts HEMOGLOBIN A1c (test code = 20584) 9.5 % HEMOGLOBIN [id number] 00:00:00* Test Item Value Reference Range Interpretation Comme nts HEMOGLOBIN A1c (test code = 17619) 9.5 % HEMOGLOBIN [id number] 00:00:00* Test Item Value Reference Range Interpretation Comme nts HEMOGLOBIN A1c (test code = 99016) 9.5 % HEMOGLOBIN [id number] 00:00:00* Test Item Value Reference Range Interpretation Comme nts HEMOGLOBIN A1c (test code = 52106) 9.5 % HEMOGLOBIN [id number] 00:00:00* Test Item Value Reference Range Interpretation Comme nts HEMOGLOBIN A1c (test code = 18758) 9.5 % [address] [facility] AustinHEMOGLOBIN [id number] 00:00:00* Test Item Value Reference Range Interpretation Comme nts HEMOGLOBIN A1c (test code = 69021) 9.5 % [address] [facility] AustinLIPID [id number] 00:00:00* Test Item Value Reference Range Interpretation Comme nts CHOLESTEROL (test code = 2210) 205 MG/DL TRIGLYCERIDES (test code = 2232) 262 MG/DL HDL CHOLESTEROL (test code = 2220) 41 MG/DL CALC LDL CHOL (test code = 2237) 124 MG/DL RISK RATIO LDL/HDL (test cod e = 2238) 3.[address] [facility] AustinCOMPREHENSIVE METABOLIC [id number] 00:00:00* Test Item Value Reference Range Interpretation Comme nts GLUCOSE (test code = 2217) 268 MG/DL BUN (test code = 2208) 13 MG/DL CREATININE (test code = 2214) 0.71 MG/DL eGFR AMER. (test cod e = 70591) 101 ML/MIN/1.73 eGFR NON- AMER. (test code = 34600) 87 ML/MIN/1.73 CALC BUN/CREAT (test code = 2235) 18 RATIO SODIUM (test code = 2231) 138 MEQ/L POTASSIUM (test code = 2228) 4.3 MEQ/L CHLORIDE (test code = 2215) 100 MEQ/L CARBON DIOXIDE (test code = 2206) 22 MEQ/L CALCIUM (test code = 2209) 9.2 MG/DL PROTEIN, TOTAL (test code = 2229) 8.0 G/DL ALBUMIN (test code = 2201) 4.7 G/DL CALC GLOBULIN (test code = 2240) 3.3 G/DL CALC A/G RATIO (test code = 2234) 1.4 RATIO BILIRUBIN, TOTAL (test code = 2207) 0.4 MG/DL ALKALINE PHOSPHATASE (test code = 2204) 144 U/L AST (test code = 2218) 32 U/L ALT (test code = 2219) 20 U/L COMPREHENSIVE METABOLIC [id number] 00:00:00* Test Item Value Reference Range Interpretation Comme nts GLUCOSE (test code = 2217) 268 MG/DL BUN (test code = 2208) 13 MG/DL CREATININE (test code = 2214) 0.71 MG/DL eGFR AMER. (test cod e = 99858) 101 ML/MIN/1.73 eGFR NON- AMER. (test code = 96840) 87 ML/MIN/1.73 CALC BUN/CREAT (test code = 2235) 18 RATIO SODIUM (test code = 2231) 138 MEQ/L POTASSIUM (test code = 2228) 4.3 MEQ/L CHLORIDE (test code = 2215) 100 MEQ/L CARBON DIOXIDE (test code = 2206) 22 MEQ/L CALCIUM (test code = 2209) 9.2 MG/DL PROTEIN, TOTAL (test code = 2229) 8.0 G/DL ALBUMIN (test code = 2201) 4.7 G/DL CALC GLOBULIN (test code = 2240) 3.3 G/DL CALC A/G RATIO (test code = 2234) 1.4 RATIO BILIRUBIN, TOTAL (test code = 2207) 0.4 MG/DL ALKALINE PHOSPHATASE (test code = 2204) 144 U/L AST (test code = 2218) 32 U/L ALT (test code = 2219) 20 U/L Lane [facility] AustinLIPID [id number] 00:00:00* Test Item Value Reference Range Interpretation Comme nts CHOLESTEROL (test code = 2210) 205 MG/DL TRIGLYCERIDES (test code = 2232) 262 MG/DL HDL CHOLESTEROL (test code = 2220) 41 MG/DL CALC LDL CHOL (test code = 2237) 124 MG/DL RISK RATIO LDL/HDL (test cod e = 2238) 3.02 RATIO COMPREHENSIVE METABOLIC [id number] 00:00:00* Test Item Value Reference Range Interpretation Comme nts GLUCOSE (test code = 2217) 268 MG/DL BUN (test code = 2208) 13 MG/DL CREATININE (test code = 2214) 0.71 MG/DL eGFR AMER. (test cod e = 37333) 101 ML/MIN/1.73 eGFR NON- AMER. (test code = 35901) 87 ML/MIN/1.73 CALC BUN/CREAT (test code = 2235) 18 RATIO SODIUM (test code = 2231) 138 MEQ/L POTASSIUM (test code = 2228) 4.3 MEQ/L CHLORIDE (test code = 2215) 100 MEQ/L CARBON DIOXIDE (test code = 2206) 22 MEQ/L CALCIUM (test code = 2209) 9.2 MG/DL PROTEIN, TOTAL (test code = 2229) 8.0 G/DL ALBUMIN (test code = 2201) 4.7 G/DL CALC GLOBULIN (test code = 2240) 3.3 G/DL CALC A/G RATIO (test code = 2234) 1.4 RATIO BILIRUBIN, TOTAL (test code = 2207) 0.4 MG/DL ALKALINE PHOSPHATASE (test code = 2204) 144 U/L AST (test code = 2218) 32 U/L ALT (test code = 2219) 20 U/L LIPID [id number] 00:00:00* Test Item Value Reference Range Interpretation Comme nts CHOLESTEROL (test code = 2210) 205 MG/DL TRIGLYCERIDES (test code = 2232) 262 MG/DL HDL CHOLESTEROL (test code = 2220) 41 MG/DL CALC LDL CHOL (test code = 2237) 124 MG/DL RISK RATIO LDL/HDL (test cod e = 2238) 3.02 RATIO COMPREHENSIVE METABOLIC [id number] 00:00:00* Test Item Value Reference Range Interpretation Comme nts GLUCOSE (test code = 2217) 268 MG/DL BUN (test code = 2208) 13 MG/DL CREATININE (test code = 2214) 0.71 MG/DL eGFR AMER. (test cod e = 04149) 101 ML/MIN/1.73 eGFR NON- AMER. (test code = 96688) 87 ML/MIN/1.73 CALC BUN/CREAT (test code = 2235) 18 RATIO SODIUM (test code = 2231) 138 MEQ/L POTASSIUM (test code = 2228) 4.3 MEQ/L CHLORIDE (test code = 2215) 100 MEQ/L CARBON DIOXIDE (test code = 2206) 22 MEQ/L CALCIUM (test code = 2209) 9.2 MG/DL PROTEIN, TOTAL (test code = 2229) 8.0 G/DL ALBUMIN (test code = 2201) 4.7 G/DL CALC GLOBULIN (test code = 2240) 3.3 G/DL CALC A/G RATIO (test code = 2234) 1.4 RATIO BILIRUBIN, TOTAL (test code = 2207) 0.4 MG/DL ALKALINE PHOSPHATASE (test code = 2204) 144 U/L AST (test code = 2218) 32 U/L ALT (test code = 2219) 20 U/L LIPID [id number] 00:00:00* Test Item Value Reference Range Interpretation Comme nts CHOLESTEROL (test code = 2210) 205 MG/DL TRIGLYCERIDES (test code = 2232) 262 MG/DL HDL CHOLESTEROL (test code = 2220) 41 MG/DL CALC LDL CHOL (test code = 2237) 124 MG/DL RISK RATIO LDL/HDL (test cod e = 2238) 3.02 RATIO COMPREHENSIVE METABOLIC [id number] 00:00:00* Test Item Value Reference Range Interpretation Comme nts GLUCOSE (test code = 2217) 268 MG/DL BUN (test code = 2208) 13 MG/DL CREATININE (test code = 2214) 0.71 MG/DL eGFR AMER. (test cod e = 97683) 101 ML/MIN/1.73 eGFR NON- AMER. (test code = 87984) 87 ML/MIN/1.73 CALC BUN/CREAT (test code = 2235) 18 RATIO SODIUM (test code = 2231) 138 MEQ/L POTASSIUM (test code = 2228) 4.3 MEQ/L CHLORIDE (test code = 2215) 100 MEQ/L CARBON DIOXIDE (test code = 2206) 22 MEQ/L CALCIUM (test code = 2209) 9.2 MG/DL PROTEIN, TOTAL (test code = 2229) 8.0 G/DL ALBUMIN (test code = 2201) 4.7 G/DL CALC GLOBULIN (test code = 2240) 3.3 G/DL CALC A/G RATIO (test code = 2234) 1.4 RATIO BILIRUBIN, TOTAL (test code = 2207) 0.4 MG/DL ALKALINE PHOSPHATASE (test code = 2204) 144 U/L AST (test code = 2218) 32 U/L ALT (test code = 2219) 20 U/L LIPID [id number] 00:00:00* Test Item Value Reference Range Interpretation Comme nts CHOLESTEROL (test code = 2210) 205 MG/DL TRIGLYCERIDES (test code = 2232) 262 MG/DL HDL CHOLESTEROL (test code = 2220) 41 MG/DL CALC LDL CHOL (test code = 2237) 124 MG/DL RISK RATIO LDL/HDL (test cod e = 2238) 3.02 RATIO COMPREHENSIVE METABOLIC [id number] 00:00:00* Test Item Value Reference Range Interpretation Comme nts GLUCOSE (test code = 2217) 268 MG/DL BUN (test code = 2208) 13 MG/DL CREATININE (test code = 2214) 0.71 MG/DL eGFR AMER. (test cod e = 17370) 101 ML/MIN/1.73 eGFR NON- AMER. (test code = 43213) 87 ML/MIN/1.73 CALC BUN/CREAT (test code = 2235) 18 RATIO SODIUM (test code = 2231) 138 MEQ/L POTASSIUM (test code = 2228) 4.3 MEQ/L CHLORIDE (test code = 2215) 100 MEQ/L CARBON DIOXIDE (test code = 2206) 22 MEQ/L CALCIUM (test code = 2209) 9.2 MG/DL PROTEIN, TOTAL (test code = 2229) 8.0 G/DL ALBUMIN (test code = 2201) 4.7 G/DL CALC GLOBULIN (test code = 2240) 3.3 G/DL CALC A/G RATIO (test code = 2234) 1.4 RATIO BILIRUBIN, TOTAL (test code = 2207) 0.4 MG/DL ALKALINE PHOSPHATASE (test code = 2204) 144 U/L AST (test code = 2218) 32 U/L ALT (test code = 2219) 20 U/L LIPID [id number] 00:00:00* Test Item Value Reference Range Interpretation Comme nts CHOLESTEROL (test code = 2210) 205 MG/DL TRIGLYCERIDES (test code = 2232) 262 MG/DL HDL CHOLESTEROL (test code = 2220) 41 MG/DL CALC LDL CHOL (test code = 2237) 124 MG/DL RISK RATIO LDL/HDL (test cod e = 2238) 3.02 RATIO LIPID [id number] 00:00:00* Test Item Value Reference Range Interpretation Comme nts CHOLESTEROL (test code = 2210) 205 MG/DL TRIGLYCERIDES (test code = 2232) 262 MG/DL HDL CHOLESTEROL (test code = 2220) 41 MG/DL CALC LDL CHOL (test code = 2237) 124 MG/DL RISK RATIO LDL/HDL (test cod e = 2238) 3.[address] F AustinCOMPREHENSIVE METABOLIC [id number] 00:00:00* Test Item Value Reference Range Interpretation Comme nts GLUCOSE (test code = 2217) 268 MG/DL BUN (test code = 2208) 13 MG/DL CREATININE (test code = 2214) 0.71 MG/DL eGFR AMER. (test cod e = 55554) 101 ML/MIN/1.73 eGFR NON- AMER. (test code = 85778) 87 ML/MIN/1.73 CALC BUN/CREAT (test code = 2235) 18 RATIO SODIUM (test code = 2231) 138 MEQ/L POTASSIUM (test code = 2228) 4.3 MEQ/L CHLORIDE (test code = 2215) 100 MEQ/L CARBON DIOXIDE (test code = 2206) 22 MEQ/L CALCIUM (test code = 2209) 9.2 MG/DL PROTEIN, TOTAL (test code = 2229) 8.0 G/DL ALBUMIN (test code = 2201) 4.7 G/DL CALC GLOBULIN (test code = 2240) 3.3 G/DL CALC A/G RATIO (test code = 2234) 1.4 RATIO BILIRUBIN, TOTAL (test code = 2207) 0.4 MG/DL ALKALINE PHOSPHATASE (test code = 2204) 144 U/L AST (test code = 2218) 32 U/L ALT (test code = 2219) 20 U/L Lane TafoyaLIPID [id number] 00:00:00* Test Item Value Reference Range Interpretation Comme nts CHOLESTEROL (test code = 2210) 205 MG/DL TRIGLYCERIDES (test code = 2232) 262 MG/DL HDL CHOLESTEROL (test code = 2220) 41 MG/DL CALC LDL CHOL (test code = 2237) 124 MG/DL RISK RATIO LDL/HDL (test cod e = 2238) 3.[address] TafoyaCOMPREHENSIVE METABOLIC [id number] 00:00:00* Test Item Value Reference Range Interpretation Comme nts GLUCOSE (test code = 7) 268 MG/DL BUN (test code = 2208) 13 MG/DL CREATININE (test code = 2214) 0.71 MG/DL eGFR AMER. (test cod e = 70987) 101 ML/MIN/1.73 eGFR NON- AMER. (test code = 83022) 87 ML/MIN/1.73 CALC BUN/CREAT (test code = 2235) 18 RATIO SODIUM (test code = 2231) 138 MEQ/L POTASSIUM (test code = 2228) 4.3 MEQ/L CHLORIDE (test code = 2215) 100 MEQ/L CARBON DIOXIDE (test code = 2206) 22 MEQ/L CALCIUM (test code = 2209) 9.2 MG/DL PROTEIN, TOTAL (test code = 2229) 8.0 G/DL ALBUMIN (test code = 2201) 4.7 G/DL CALC GLOBULIN (test code = 2240) 3.3 G/DL CALC A/G RATIO (test code = 2234) 1.4 RATIO BILIRUBIN, TOTAL (test code = 2207) 0.4 MG/DL ALKALINE PHOSPHATASE (test code = 2204) 144 U/L AST (test code = 2218) 32 U/L ALT (test code = 2219) 20 U/L Lane TafoyaPOCT GLUCOSE (AUTOMATED)2020-06-15 18:35:00* Test Item Value Reference Range Interpretation Comme [facility] POCT GLU (test code = 4287752173) 127 mg/dL 70-110 H Lab Interpretation (test cod e = 62375-6) [facility] 14:28:00* Test Item Value Reference Range Interpretation Comme [facility] POCT GLU (test code = 2492940258) 151 mg/dL 70-110 H Lab Interpretation (test cod e = 20693-3) Abnormal [facility] Metabolic Panel (NA, K, CL, CO2, GLUCOSE, BUN, CREATININE, CA)2020-06-15 12:15:00* Test Item Value Reference Range Interpretation Comme [facility] NA (test code = 3034940484) 141 mmol/L 135-145 K (test code = 1850765385) 3.6 mmol/L 3.5-5 CL (test code = 7266016935) 105 mmol/L 98-108 CO2 TOTAL (test code = 9967200719) 30 mmol/L 23-31 AGAP (test code = 1472805140) 2-16 BUN (test code = 5542168251) 15 mg/dL 7-23 GLUCOSE (test code = 3400022564) 89 mg/dL 70-110 CREATININE (test code = 9648584572) 0.57 mg/dL 0.5-1.04 CALCIUM (test code = 3282910127) 8.9 mg/dL 8.6-10.6 eGFR Calculation (Non-) (test code = 8534019327) mL/min/1.73m2 eGFR Calculation () (test code = 7392370829) mL/min/1.73m2 ISMAEL (test code = ISMAEL) Association of [...] or urine or abnormalities in imaging tests). [facility] with [id number] 12:07:00* Test Item Value Reference Range Interpretation Comme nts WBC (test code = 6690-2) See_Comment L [[employer]] The system which generated this result transmitted reference range: 4.30 - 11.10 10*3/?L. The reference range was not used to interpret this result as normal/abnormal. RBC (test code = 789-8) See_Comment [[employer]] The system which generated this result transmitted reference range: 3.93 - 5.25 10*6/?L. The reference range was not used to interpret this result as normal/abnormal. HGB (test code = 718-7) 11.9 g/dL 11.6-15 HCT (test code = 4544-3) 36.6 % 35.7-45.2 MCV (test code = 787-2) 85.5 fL 80.6-95.5 MCH (test code = 785-6) 27.8 pg 25.9-32.8 MCHC (test code = 786-4) 32.5 g/dL 31.6-35.1 RDW-SD (test code = 73610-0) 47.9 fL 39-49.9 RDW-CV (test code = 788-0) 15.2 % 12-15.5 PLT (test code = 777-3) See_Comment L [Automated messa ge] The system which generated this result transmitted reference range: 166 - 358 10*3/?L. The reference range was not used to interpret this result as normal/abnormal. MPV (test code = 54258-7) 12.1 fL 9.5-12.9 NRBC/100 WBC (test code = 1781086103) See_Comment [Automated me ssage] The system which generated this result transmitted reference range: 0.0 - 10.0 /100 WBCs. The reference range was not used to interpret this result as normal/abnormal. NRBC x10^3 (test code = 4346404866) <0.01 See_Comment [Automated messa ge] The system which generated this result transmitted reference range: 10*3/?L. The reference range was not used to interpret this result as normal/abnormal. GRAN MAT (NEUT) % (test code = 770-8) 70.9 % IMM GRAN % (test code = 0036616436) 0.50 % LYMPH % (test code = 736-9) 20.7 % MONO % (test code = 5905-5) 7.9 % EOS % (test code = 713-8) 0.0 % BASO % (test code = 706-2) 0.0 % GRAN MAT x10^3(ANC) (test code = 4330016973) 2.87 10*3/uL 1.88-7.09 IMM GRAN x10^3 (test code = 3697612102) <0.03 0-0.06 LYMPH x10^3 (test code = 731-0) 0.84 10*3/uL 1.32-3.29 L MONO x10^3 (test code = 742-7) 0.32 10*3/uL 0.33-0.92 L EOS x10^3 (test code = 711-2) <0.03 0.03-0.39 L BASO x10^3 (test code = 704-7) <0.03 0.01-0.07 Lab Interpretation (test code = 56982-3) Abnormal [facility] GLUCOSE (AUTOMATED)2020-06-14 22:51:00* Test Item Value Reference Range Interpretation Comme nts POCT GLU (test code = 1494017307) 162 mg/dL 70-110 H Lab Interpretation (test cod e = 40933-6) Abnormal [facility] GLUCOSE (AUTOMATED)2020-06-14 17:54:00* Test Item Value Reference Range Interpretation Comme [facility] POCT GLU (test code = 8908111662) 156 mg/dL 70-110 H Lab Interpretation (test cod e = 38323-5) Abnormal [facility] GLUCOSE (AUTOMATED)2020-06-14 14:57:00* Test Item Value Reference Range Interpretation Comme [facility] POCT GLU (test code = 2544103915) 179 mg/dL 70-110 H Lab Interpretation (test cod e = 39015-5) Abnormal [facility] Metabolic Panel (NA, K, CL, CO2, GLUCOSE, BUN, CREATININE, CA)2020-06-14 14:40:00* Test Item Value Reference Range Interpretation Comme [facility] NA (test code = 5865985055) 138 mmol/L 135-145 K (test code = 5139322844) 4.1 mmol/L 3.5-5 CL (test code = 6116660190) 104 mmol/L 98-108 CO2 TOTAL (test code = 1569390716) 25 mmol/L 23-31 AGAP (test code = 0708307154) 2-16 BUN (test code = 5966471960) 15 mg/dL 7-23 GLUCOSE (test code = 9355511337) 194 mg/dL 70-110 H CREATININE (test code = 0874012956) 0.49 mg/dL 0.5-1.04 L CALCIUM (test code = 4295524978) 8.7 mg/dL 8.6-10.6 eGFR Calculation (Non-) (test code = 7180772726) mL/min/1.73m2 eGFR Calculation () (test code = 8470280195) mL/min/1.73m2 ISMAEL (test code = ISMAEL) Association of [...] or abnormalities in imaging tests). Lab Interpretation (test code = 82380-7) Abnormal [facility] with [id number] 12:46:00* Test Item Value Reference Range Interpretation Comme nts WBC (test code = 6690-2) See_Comment L [[employer]] The system which generated this result transmitted reference range: 4.30 - 11.10 10*3/?L. The reference range was not used to interpret this result as normal/abnormal. RBC (test code = 789-8) See_Comment [[employer]] The system which generated this result transmitted reference range: 3.93 - 5.25 10*6/?L. The reference range was not used to interpret this result as normal/abnormal. HGB (test code = 718-7) 11.4 g/dL 11.6-15 L HCT (test code = 4544-3) 36.3 % 35.7-45.2 MCV (test code = 787-2) 86.8 fL 80.6-95.5 MCH (test code = 785-6) 27.3 pg 25.9-32.8 MCHC (test code = 786-4) 31.4 g/dL 31.6-35.1 L RDW-SD (test code = 02808-9) 48.3 fL 39-49.9 RDW-CV (test code = 788-0) 15.1 % 12-15.5 PLT (test code = 777-3) See_Comment L [[email or web address]] The system which generated this result transmitted reference range: 166 - 358 10*3/?L. The reference range was not used to interpret this result as normal/abnormal. MPV (test code = 15222-0) 11.8 fL 9.5-12.9 IPF % (test code = 2653087196) 5.8 % 1.3-7.7 Platelet count measured by fluorescence method. NRBC/100 WBC (test code = 8449305942) See_Comment [[employer]] The system which generated this result transmitted reference range: 0.0 - 10.0 /100 WBCs. The reference range was not used to interpret this result as normal/abnormal. NRBC x10^3 (test code = 2469815809) <0.01 See_Comment [[email or web address]] The system which generated this result transmitted reference range: 10*3/?L. The reference range was not used to interpret this result as normal/abnormal. GRAN MAT (NEUT) % (test code = 770-8) 76.8 % IMM GRAN % (test code = 6914066311) 0.30 % LYMPH % (test code = 736-9) 15.9 % MONO % (test code = 5905-5) 7.0 % EOS % (test code = 713-8) 0.0 % BASO % (test code = 706-2) 0.0 % GRAN MAT x10^3(ANC) (test code = 7932946632) 2.76 10*3/uL 1.88-7.09 IMM GRAN x10^3 (test code = 8843016978) <0.03 0-0.06 LYMPH x10^3 (test code = 731-0) 0.57 10*3/uL 1.32-3.29 L MONO x10^3 (test code = 742-7) 0.25 10*3/uL 0.33-0.92 L EOS x10^3 (test code = 711-2) <0.03 0.03-0.39 L BASO x10^3 (test code = 704-7) <0.03 0.01-0.07 Lab Interpretation (test code = 03434-4) Abnormal [facility] GLUCOSE (AUTOMATED)2020-06-14 06:24:00* Test Item Value Reference Range Interpretation Comme nts POCT GLU (test code = 1474279070) 272 mg/dL 70-110 H Lab Interpretation (test cod e = 25333-1) Abnormal [facility] GLUCOSE (AUTOMATED)2020-06-14 02:26:00* Test Item Value Reference Range Interpretation Comme nts POCT GLU (test code = 8009722494) 318 mg/dL 70-110 H Notified Provide r Lab Interpretation (test code = 90659-2) Abnormal [facility] GLUCOSE (AUTOMATED)2020-06-14 02:08:00* Test Item Value Reference Range Interpretation Comme nts POCT GLU (test code = 2985571104) 279 mg/dL 70-110 H Lab Interpretation (test cod e = 05495-8) Abnormal [facility] GLUCOSE (AUTOMATED)2020-06-13 19:05:00* Test Item Value Reference Range Interpretation Comme nts POCT GLU (test code = 8924557262) 250 mg/dL 70-110 H Lab Interpretation (test cod e = 71995-1) Abnormal [facility] GLUCOSE (AUTOMATED)2020-06-13 15:51:00* Test Item Value Reference Range Interpretation Comme nts POCT GLU (test code = 5750911924) 242 mg/dL 70-110 H Lab Interpretation (test cod e = 87301-9) Abnormal [facility] with [id number] 15:39:00* Test Item Value Reference Range Interpretation Comme nts WBC (test code = 6690-2) See_Comment LL [Automated messa ge] The system which generated this result transmitted reference range: 4.30 - 11.10 10*3/?L. The reference range was not used to interpret this result as normal/abnormal. RBC (test code = 789-8) See_Comment [Automated messa ge] The system which generated this result transmitted reference range: 3.93 - 5.25 10*6/?L. The reference range was not used to interpret this result as normal/abnormal. HGB (test code = 718-7) 11.4 g/dL 11.6-15 L HCT (test code = 4544-3) 35.7 % 35.7-45.2 MCV (test code = 787-2) 86.9 fL 80.6-95.5 MCH (test code = 785-6) 27.7 pg 25.9-32.8 MCHC (test code = 786-4) 31.9 g/dL 31.6-35.1 RDW-SD (test code = 71989-4) 48.3 fL 39-49.9 RDW-CV (test code = 788-0) 15.1 % 12-15.5 PLT (test code = 777-3) See_Comment L [Automated TextbookTime.com Textbook Timea ge] The system which generated this result transmitted reference range: 166 - 358 10*3/?L. The reference range was not used to interpret this result as normal/abnormal. MPV (test code = 19600-3) 11.7 fL 9.5-12.9 IPF % (test code = 1383362024) 5.3 % 1.3-7.7 Platelet count measured by fluorescence method. NRBC/100 WBC (test code = 7371548499) See_Comment [Automated Solmentum ssage] The system which generated this result transmitted reference range: 0.0 - 10.0 /100 WBCs. The reference range was not used to interpret this result as normal/abnormal. NRBC x10^3 (test code = 0019021428) <0.01 See_Comment [Automated TextbookTime.com Textbook Timea ge] The system which generated this result transmitted reference range: 10*3/?L. The reference range was not used to interpret this result as normal/abnormal. GRAN MAT (NEUT) % (test code = 770-8) 58.2 % IMM GRAN % (test code = 4370623453) 0.50 % LYMPH % (test code = 736-9) 25.5 % MONO % (test code = 5905-5) 15.8 % EOS % (test code = 713-8) 0.0 % BASO % (test code = 706-2) 0.0 % GRAN MAT x10^3(ANC) (test code = 8478017510) 1.14 10*3/uL 1.88-7.09 L IMM GRAN x10^3 (test code = 3114292134) <0.03 0-0.06 LYMPH x10^3 (test code = 731-0) 0.50 10*3/uL 1.32-3.29 L MONO x10^3 (test code = 742-7) 0.31 10*3/uL 0.33-0.92 L EOS x10^3 (test code = 711-2) <0.03 0.03-0.39 L BASO x10^3 (test code = 704-7) <0.03 0.01-0.07 PLT ESTIMATE (test code = 9317-9) Decreased Normal A Lab Interpretation (test code = 82734-3) Abnormal [facility] [id number] 14:28:03HISTORY: Elevated D dimer and inconclusive VQ scan for PE. TECHNIQUE: Contrast-enhanced 64-mutidetector CT scan of the chest wascompleted with intravenous injection of ?non ionic contrast medium.Subsequently numerous sagittal, coronal and MIP reformations weregenerated. FINDINGS: Small nodules suspected in the left thyroid lobe. Trachea andcentral bronchial airways appear normal. No enlarged hilar or mediastinal lymph nodes detected. [...] lobe of the liver, stable when compared [id number] CT studies. No aggressive bone lesions. 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 CONCLUSIONS:1. No acute pulmonary thromboembolism.2. Bilateral peripherally base ground glass hazy infiltrates, consistentwith COVID 19 pulmonary infection. No lobar pneumonia. No pleural effusion. [facility], Radiant Results Inft User - 06/13/2020 8:29 AM CSTHISTO RY: Elevated D dimer and inconclusive VQ scan for PE.TECHNIQUE: Contrast- enhanced 64-mutidetector CT scan of the chest wascompleted with intravenous injection of non ionic contrast medium.Subsequently numerous sagittal, coronal and MIP reformations weregenerated.FINDINGS: Small nodules suspected inthe left thyroid lobe. Trachea andcentral bronchial airways [...] atherosclerosis is appreciated.No definite evidence of hiatal he rnia.Cholecystectomy clips are seen in the right upper abdomen.Hepatosplenomegaly suspected with cirrhotic liver morphology. No free fluidis seen in the upper abdomen. Posterior right lobe of the liver showed 9 mmhypodense lesion, another 12 mm hypodense lesion is seen also in thecentral portion ofthe right lobe of the liver, stable when compared [id number] CT studies.No aggressive bone lesions. Degenerative disc disease noted at T11-T12,T9-T10 levels and there is minimal compression in the upper plate of A9xvwrcsoml body.CONCLUSIONS:1. No acute pulmonary thromboembolism.2. Bilateral peripherally base ground glass hazy infiltrates, consistentwith COVID 19 pulmonary infection. No lobar pneumonia. No pleural effusion.[facility] (NA, K, CL, CO2, GLUCOSE, BUN, CREATININE, CA)2020-06-13 13:09:00* Test Item Value Reference Range Interpretation Comme nts NA (test code = 6472814079) 135 mmol/L 135-145 K (test code = 7362782355) 4.2 mmol/L 3.5-5 CL (test code = 6551502777) 103 mmol/L 98-108 CO2 TOTAL (test code = 5502979971) 26 mmol/L 23-31 AGAP (test code = 7990688032) 2-16 BUN (test code = 0910466883) 16 mg/dL 7-23 GLUCOSE (test code = 7568368207) 204 mg/dL 70-110 H CREATININE (test code = 3470754859) 0.58 mg/dL 0.5-1.04 CALCIUM (test code = 2215144606) 8.4 mg/dL 8.6-10.6 L eGFR Calculation (Non-) (test code = 2232391300) mL/min/1.73m2 eGFR Calculation () (test code = 1858093179) mL/min/1.73m2 ISMAEL (test code = ISMAEL) Association of [...] or abnormalities in imaging tests). Lab Interpretation (test code = 53786-0) Abnormal [facility] Plasma (in units): 1 Units~Indication: Dilutional Roueeczxgfzk6931-30-02 04:34:33* Test Item Value Reference Range Interpretation Comme nts Unit Blood Type (test code = 4410) O Pos ISBT Blood Type Code (test code = 015380) Unit Number (test code = 4411) [id number] Blood Expiration Date & Time (test code = 497975) Status Information (test code = 4412) Issued Product Identification (test code = 4413) FFP Product Code (test code = 4414) [id number] Performed at [facility] Laboratory Services - [facility] Blood [address] [place], [place] [id number] Free: [phone] No. [id number] [facility] ONLY COVID IDDTTNGCCPRQPQ8190-76-88 04:02:00COVID DMT InterpretationInterpretation/Recommendations: Molecular NAAT Tests for Active Infection with the SARS-CoV-2 Virus: The current test result is positive for the SARS-CoV-2 virus that causes COVID-19 illness. In vhfs-ut-lhhcrjuk illness, the patient may be considered no longer infectious when it has been after 10 days since symptom onset, the patient has been afebrile for 24 hours without the use of fever-reducing medications, AND other symptoms of COVID-19 are improving. However, in patients who have been severely ill with COVID-19 or are severely immunocompromised, isolation up to 20days after symptom onset is recommended. Asymptomatic patients are considered infectious for the first 10 days subsequent to the initial positive test result. From the onset of symptoms, if any, thisresult is likely to remain positive up to [...] to SARS-CoV-2 may provide some degree of im munity, at this time the strength and duration of the antibody response is unknown. Interpretation Result Comments:These interpretation comments are based upon all COVID-19 testing the patient has had at [facility], including molecular NAAT testing (more commonly known as PCR testing and Rapid ID Now testing) and antibody testing.It does not take into account any testing that a patient has had outside of the [facility] medical record. [facility] LABORATORY SERVICESCOVID GgzkovxIDHR-KjS-7 Rapid ID NOW (no units) ? ? Date ? Value ? 06/11/2020 ? Positive (A) ? [facility] SERVICESUnUT Health HendersonVITAMIN B12, [id number] 00:01:00* Test Item Value Reference Range Interpretation Comme nts VIT B12 (test code = 8617839364) 436 pg/mL 240-930 ISMAEL (test code = ISMAEL) Biotin has been reported to cause a positive bias, interpret results relative to patient's use of biotin. Lab Interpretation (test code = 74485-5) Normal [facility] GLUCOSE (AUTOMATED)2020-06-12 23:59:00* Test Item Value Reference Range Interpretation Comme [facility] POCT GLU (test code = 9753144063) 197 mg/dL 70-110 H Lab Interpretation (test cod e = 71598-0) Abnormal [facility] GLUCOSE (AUTOMATED)2020-06-12 23:59:00* Test Item Value Reference Range Interpretation Comme [facility] POCT GLU (test code = 8046503863) 280 mg/dL 70-110 H Lab Interpretation (test cod e = 86606-8) Abnormal [facility] LUNG PERFUSION [id number] 19:07:15Study inconclusive for pulmonary embolism.PULMONARY PERFUSION SCAN INDICATION: Respiratory failure elevated d-dimer in COVID, concern PE TECHNIQUE: Ventilation imaging was not performed due to coronavirusprecautions. The patient received an intravenous injection of 7 mCi wwUk84w MAA, and planar images were subsequently acquired in the anterior,posterior, right anterior oblique, left anterior obliq ue, left posterioroblique, and right posterior oblique projections. [...] received an intravenous injection of 7 mCi tdYc75u MAA, and planar images were subsequently acquired in the anterior,posterior, right anterior oblique, left anterior obliq ue, left posterioroblique, and right posterior oblique projections. Comparison made with chest imaging from 06/11/2020.FINDINGS:Posterior segment of left upper lung showed subsegmental perfusion defect.Additional subsegmental perfusion abnormalities noted also in the leftlower lung.IMPRESSIONStudy inconclusive for pulmonary embolism.[facility] GLUCOSE (AUTOMATED) 2020-06-12 14:59:00* Test Item Value Reference Range Interpretation Comme nts POCT GLU (test code = 8603247582) 144 mg/dL 70-110 H Lab Interpretation (test cod e = 48041-6) Abnormal [facility] AliceD-ZNTZM1227-49-54 13:11:00* Test Item Value Reference Range Interpretation Comments D-DIMER (test code = 9416933840) See_Comment H [Automated message] The system which generated this result transmitted reference range: <0.41 ?g/mL (FEU). The reference range was not used to interpret this result as normal/abnormal. ISMAEL (test code = ISMAEL) This test may be used in conjunction with a clinical pretest [...] context, in forming a diagnosis. Lab Interpretation (test code = 73348-1) Abnormal [facility] AliceABORH IEZGVLOYSFWF1326-61-90 12:08:53* Test Item Value Reference Range Interpretation Comme nts ABO & RH (test code = 20) O Positive Performed at [facility] Laboratory [facility] Blood [address] Free: [phone] No. [id number] [facility] AliceType and Screen - ONCE [id number] 10:05:49 * Test Item Value Reference Range Interpretation Comme nts ABO & RH (test code = 20) O Positive Performed at [facility] Blood [place] [address]Toll Free: [phone] No. [id number] IAT (test code = 1185) Negative Performed at [facility] Blood [place] [address]Toll Free: [phone] No. [id number] [facility] (NA, K, CL, CO2, GLUCOSE, BUN, CREATININE, CA)2020-06-12 09:35:00* Test Item Value Reference Range Interpretation Comme nts NA (test code = 8133416965) 135 mmol/L 135-145 K (test code = 4270817439) 3.9 mmol/L 3.5-5 CL (test code = 9139507429) 104 mmol/L 98-108 CO2 TOTAL (test code = 5447064596) 26 mmol/L 23-31 AGAP (test code = 2720001407) 2-16 BUN (test code = 0521544073) 13 mg/dL 7-23 GLUCOSE (test code = 4570531962) 162 mg/dL 70-110 H CREATININE (test code = 6505542691) 0.76 mg/dL 0.5-1.04 CALCIUM (test code = 2520976804) 7.7 mg/dL 8.6-10.6 L eGFR Calculation (Non-) (test code = 3702004722) mL/min/1.73m2 eGFR Calculation () (test code = 0076277762) mL/min/1.73m2 ISMAEL (test code = ISMAEL) Association of [...] or abnormalities in imaging tests). Lab Interpretation (test code = 98455-3) Abnormal [facility] with Hfqbtrrnmlqm1974-01-50 09:24:00* Test Item Value Reference Range Interpretation Comme nts WBC (test code = 6690-2) See_Comment L [Automated ShotSpotter] The system which generated this result transmitted reference range: 4.30 - 11.10 10*3/?L. The reference range was not used to interpret this result as normal/abnormal. RBC (test code = 789-8) See_Comment [Automated ShotSpotter] The system which generated this result transmitted reference range: 3.93 - 5.25 10*6/?L. The reference range was not used to interpret this result as normal/abnormal. HGB (test code = 718-7) 11.1 g/dL 11.6-15 L HCT (test code = 4544-3) 35.3 % 35.7-45.2 L MCV (test code = 787-2) 87.8 fL 80.6-95.5 MCH (test code = 785-6) 27.6 pg 25.9-32.8 MCHC (test code = 786-4) 31.4 g/dL 31.6-35.1 L RDW-SD (test code = 05713-9) 49.2 fL 39-49.9 RDW-CV (test code = 788-0) 15.3 % 12-15.5 PLT (test code = 777-3) See_Comment L [Automated TextbookTime.com Textbook Timea ge] The system which generated this result transmitted reference range: 166 - 358 10*3/?L. The reference range was not used to interpret this result as normal/abnormal. MPV (test code = 05020-7) 11.3 fL 9.5-12.9 IPF % (test code = 2089464129) 3.7 % 1.3-7.7 Platelet count measured by fluorescence method. NRBC/100 WBC (test code = 2039746015) See_Comment [Automated Solmentum ssage] The system which generated this result transmitted reference range: 0.0 - 10.0 /100 WBCs. The reference range was not used to interpret this result as normal/abnormal. NRBC x10^3 (test code = 2445269888) <0.01 See_Comment [Automated TextbookTime.com Textbook Timea ge] The system which generated this result transmitted reference range: 10*3/?L. The reference range was not used to interpret this result as normal/abnormal. GRAN MAT (NEUT) % (test code = 770-8) 56.9 % IMM GRAN % (test code = 5225974508) 0.70 % LYMPH % (test code = 736-9) 25.0 % MONO % (test code = 5905-5) 17.1 % EOS % (test code = 713-8) 0.3 % BASO % (test code = 706-2) 0.0 % GRAN MAT x10^3(ANC) (test code = 9884254375) 1.73 10*3/uL 1.88-7.09 L IMM GRAN x10^3 (test code = 5291287976) <0.03 0-0.06 LYMPH x10^3 (test code = 731-0) 0.76 10*3/uL 1.32-3.29 L MONO x10^3 (test code = 742-7) 0.52 10*3/uL 0.33-0.92 EOS x10^3 (test code = 711-2) <0.03 0.03-0.39 L BASO x10^3 (test code = 704-7) <0.03 0.01-0.07 Lab Interpretation (test code = 71092-4) Abnormal [facility] Alice[facility]IT[facility]IN D, [id number] 07:22:00* Test Item Value Reference Range Interpretation Comme [facility] VIT D 25OH (test code = 24763-8) 20 ng/mL 25-80 L ISMAEL (test code = ISMAEL) Deficiency: <20 ng/mLInsufficiency: 20-24 ng/mLOptimal: 25-80 ng/mL Lab Interpretation (test code = 36117-2) Abnormal [facility] AlicePROCALCITONIN2021-02-24 06:16:00* Test Item Value Reference Range Interpretation Comme [facility] Procalcitonin (test code = 1047434172) 0.06 ng/mL <0.07 ISMAEL (test code = ISMAEL) INTERPRETATION OF [...] to:[email or web address] Lab Interpretation (test code = 35682-0) Normal [facility] GLUCOSE (AUTOMATED)2020-06-12 02:08:00* Test Item Value Reference Range Interpretation Comme nts POCT GLU (test code = 6356450364) 166 mg/dL 70-110 H Lab Interpretation (test cod e = 44753-7) Abnormal [facility] GLUCOSE (AUTOMATED)2020-06-12 00:03:00* Test Item Value Reference Range Interpretation Comme nts POCT GLU (test code = 5541449142) 144 mg/dL 70-110 H Lab Interpretation (test cod e = 57934-2) Abnormal [facility] AliceIRON [id number] 00:02:00* Test Item Value Reference Range Interpretation Comme nts IRON (test code = 0699795882) 27 ug/dL 50-160 L TIBC (test code = 4969752303) 335 ug/dL 250-410 % FE SAT (test code = 4630159644) 8 % 20-50 L Lab Interpretation (test cod e = 60370-8) Abnormal [facility] AliceGLYCOSYLATED HEMOGLOBIN (A1C)2020-06-12 00:01:00* Test Item Value Reference Range Interpretation Comme nts HGB A1C (test code = 4548-4) 10.8 % 4-6 H ISMAEL (test code = ISMAEL) %A1C (NGSP) Interpretation (ADA)4.8-5.6 ? ? Normal or (Non-Diabetic Range)5.7-6.4 ? ? Increased Risk (Pre-Diabetic)>6.5 ?Diabetes Indicated Lab Interpretation (test code = 58850-7) Abnormal [facility] AliceTHYROID STIMULATING [id number] 23:31:00 * Test Item Value Reference Range Interpretation Comme nts TSH (test code = 9378345291) See_Comment [Automated messa ge] The system which generated this result transmitted reference range: 0.45 - 4.70 mIU/L. The reference range was not used to interpret this result as normal/abnormal. Lab Interpretation (test code = 19315-8) Normal [facility] AliceN-TERMINAL HQJ-KWX4696-10-23 23:10:00* Test Item Value Reference Range Interpretation Comme nts NT-proBNP (test code = 3027050944) 41 pg/mL See_Comment [Automated message] The system which generated this result transmitted reference range: <=125. The reference range was not used to interpret this result as normal/abnormal. ISMAEL (test code = ISMAEL) Biotin has been reported to cause a negative bias, interpret results relative to patient's use of biotin. Lab Interpretation (test code = 81446-3) Normal [facility] AliceMagnesium Xhyxm2125-79-65 23:00:00* Test Item Value Reference Range Interpretation Comme nts MAGNESIUM (test code = 9120047711) 1.6 mg/dL 1.7-2.4 L Lab Interpretation (test cod e = 75899-1) Abnormal [facility] AliceSusannan [id number] 17:29:00* Test Item Value Reference Range Interpretation Comme nts TROPONIN I (test code = 6230465589) 0.001 ng/mL See_Comment [Automated message] The system which generated this result transmitted reference range: <=0.034. The reference range was not used to interpret this result as normal/abnormal. ISMAEL (test code = ISMAEL) Equal or Less than 0.034 ng/ml---Normal ?Note: Cardiac troponin begins to [...] patient's use of biotin. ? Lab Interpretation (test code = 18578-8) Normal [facility] 1 Pncq0432-93-86 17:26:01HISTORY: Cough, fever, SOB, hypoxia. TECHNIQUE: Portable [...] CONCLUSIONS: No signs of acute cardiopulmonary disease. [facility]OVID[facility] (ID NOW RAPID TESTING)2020-06-11 17:23:00* Test Item Value Reference Range Interpretation Comme nts SARS-CoV-2 Rapid ID NOW (test code = 73789-0) Positive Not Detected A ISMAEL (test code = ISMAEL) ID NOW COVID-19 As say is an isothermal nucleic acid amplification test intended for the qualitative detection of nucleic acid from SARS-CoV-2 viral RNA in nasopharyngeal (LOADER) specimens. It is used under Emergency Use [...] patient testing if clinically indicated. Lab Interpretation (test code = 71357-2) Abnormal [facility] Metabolic Panel (NA, K, CL, CO2, GLUCOSE, BUN, CREATININE, CA)2020-06-11 17:18:00* Test Item Value Reference Range Interpretation Comme nts NA (test code = 3263999813) 134 mmol/L 135-145 L K (test code = 5820696826) 3.8 mmol/L 3.5-5 CL (test code = 1202345074) 101 mmol/L 98-108 CO2 TOTAL (test code = 9247795815) 21 mmol/L 23-31 L AGAP (test code = 8929744405) 2-16 BUN (test code = 9716767966) 12 mg/dL 7-23 GLUCOSE (test code = 3129412866) 173 mg/dL 70-110 H CREATININE (test code = 1190915512) 0.72 mg/dL 0.5-1.04 CALCIUM (test code = 5811024626) 9.0 mg/dL 8.6-10.6 eGFR Calculation (Non-) (test code = 6262427937) mL/min/1.73m2 eGFR Calculation () (test code = 0323723820) mL/min/1.73m2 ISMAEL (test code = ISMAEL) Association of [...] or abnormalities in imaging tests). Lab Interpretation (test code = 40809-8) Abnormal [facility] AliceHepatic Function Panel (ALB, T.PRO, BILI T, BU/BC, ALT, AST, ALK PHOS)2020-06-11 17:18:00* Test Item Value Reference Range Interpretation Comme nts TOTAL BILI (test code = 0566709510) 0.7 mg/dL 0.1-1.1 BILI UNCON (test code = 8309916680) 0.6 mg/dL 0.1-1.1 BILI CONJ (test code = 3799146541) 0.0 mg/dL 0-0.3 T PROTEIN (test code = 0917708801) 8.3 g/dL 6.3-8.2 H ALBUMIN (test code = 4737581090) 4.5 g/dL 3.5-5 ALK PHOS (test code = 6304235353) 124 U/L 34-122 H ALTv (test code = 1742-6) 50 U/L 5-35 H AST(SGOT) (test code = 3336654313) 103 U/L 13-40 H Lab Interpretation (test cod e = 90167-6) Abnormal [facility] with Jdfzryzjqzph2528-48-12 17:07:00* Test Item Value Reference Range Interpretation Comme nts WBC (test code = 6690-2) See_Comment [Automated TextbookTime.com Textbook Timea ge] The system which generated this result transmitted reference range: 4.30 - 11.10 10*3/?L. The reference range was not used to interpret this result as normal/abnormal. RBC (test code = 789-8) See_Comment [Automated TextbookTime.com Textbook Timea ge] The system which generated this result transmitted reference range: 3.93 - 5.25 10*6/?L. The reference range was not used to interpret this result as normal/abnormal. HGB (test code = 718-7) 13.7 g/dL 11.6-15 HCT (test code = 4544-3) 42.2 % 35.7-45.2 MCV (test code = 787-2) 84.7 fL 80.6-95.5 MCH (test code = 785-6) 27.5 pg 25.9-32.8 MCHC (test code = 786-4) 32.5 g/dL 31.6-35.1 RDW-SD (test code = 90001-9) 45.5 fL 39-49.9 RDW-CV (test code = 788-0) 14.8 % 12-15.5 PLT (test code = 777-3) See_Comment L [Automated TextbookTime.com Textbook Timea ge] The system which generated this result transmitted reference range: 166 - 358 10*3/?L. The reference range was not used to interpret this result as normal/abnormal. MPV (test code = 31030-1) 12.1 fL 9.5-12.9 IPF % (test code = 6505229999) 4.1 % 1.3-7.7 Platelet count measured by fluorescence method. NRBC/100 WBC (test code = 1228589787) See_Comment [Automated me ssage] The system which generated this result transmitted reference range: 0.0 - 10.0 /100 WBCs. The reference range was not used to interpret this result as normal/abnormal. NRBC x10^3 (test code = 9559625473) <0.01 See_Comment [Automated messa ge] The system which generated this result transmitted reference range: 10*3/?L. The reference range was not used to interpret this result as normal/abnormal. GRAN MAT (NEUT) % (test code = 770-8) 70.6 % IMM GRAN % (test code = 5556016364) 1.00 % LYMPH % (test code = 736-9) 13.8 % MONO % (test code = 5905-5) 14.4 % EOS % (test code = 713-8) 0.0 % BASO % (test code = 706-2) 0.2 % GRAN MAT x10^3(ANC) (test code = 3670652549) 4.40 10*3/uL 1.88-7.09 IMM GRAN x10^3 (test code = 8518205400) 0.06 10*3/uL 0-0.06 LYMPH x10^3 (test code = 731-0) 0.86 10*3/uL 1.32-3.29 L MONO x10^3 (test code = 742-7) 0.90 10*3/uL 0.33-0.92 EOS x10^3 (test code = 711-2) <0.03 0.03-0.39 L BASO x10^3 (test code = 704-7) <0.03 0.01-0.07 Lab Interpretation (test code = 31666-7) Abnormal [facility] AliceLactic Acid Whole Dbwrh6014-09-69 16:53:00* Test Item Value Reference Range Interpretation Comme nts LACTIC ACID (test code = 8356501724) 1.70 mmol/L 0.5-2.2 Lab Interpretation (test cod e = 76452-5) Normal [facility] Notes Date/Time Note Provider Source [facility]2024-08-20 00:00:00 [address] [facility] [facility]2024-04-25 00:00:00 [address] [facility]2024-03-27 13:55:15 Medical Request has been faxed to [facility]. Confirmation received. [facility]
[2024-02-10 14:37] LABS: Specific Gravity 1.008 (1.005-1.030); Sqamous Epithelial <5 /HPF (None Seen); Urine Bacteria 20-50 /HPF (<20); Urine Bilirubin NEGATIVE (Negative); Urine Blood Negative (Negative); Urine Clarity Extremely Turbid (Clear); Urine Color Light-Yellow (Yellow); Urine Crystals Unidentified Few /HPF (None Seen); Urine Culture Reflex Order NOT NEEDED; Urine Glucose TRACE (Negative); Urine Ketones NEGATIVE (Negative); Urine Microscopic Reflex YN ORDER UMIC; Urine Mucus Slight /HPF (None Seen); Urine Nitrite NEGATIVE (Negative); Urine Protein NEGATIVE (Negative); Urine RBC <5 /HPF (None Seen); Urine Urobilinogen Normal (Normal); Urine WBC <5 /HPF (<5); Urine WBC Clump Rare /HPF (None Seen); Urine Yeast (Budding) Occasional /HPF (None Seen); Urine pH 6.5 (5.0-7.0)
--- NOTE | 2024-02-10 14:50 | RAD REPORT ---
EXAMINATION: ONE VIEW CHEST XR CLINICAL INDICATION: Female, 73 years old.,ABDOMINAL DISTENTION TECHNIQUE: Frontal chest projection is submitted. Examination is limited by patient positioning and t echnique. COMPARISON: 01/04/2024 FINDINGS: The lungs are well inflated and clear. No pneumothorax or sizable effusion. The heart is normal in s ize. IMPRESSION: No acute intrathoracic abnormalities.
[2024-02-10 15:04] LABS: Absolute Eosinophils 0.1 K/uL (0-0.5); Absolute Lymphocytes (CBC) 0.9 K/uL (0.7-4.9); Absolute Monocytes 0.5 K/uL (0.1-1.3); Absolute Neutrophil 4.3 K/uL (1.8-8.0); Basophils % 0.3 % (0-1.3); Eosinophils % 1.2 % (0-4.4); Hematocrit 36.2 % (36.0-45.0); Hemoglobin 12.1 g/dL (12.0-15.0); Lymphocytes % 16.2 % (15.3-44.8); MCH 28.4 pg (27.0-35.0); MCHC 33.4 g/dL (32.0-36.0); MCV 85.1 fL (80-100); MPV 8.9 fL (7.6-11.3); Monocytes % 8.4 % (3.3-12.3); Neutrophils % 73.9 % (41.7-73.7); Platelets 111 thou/uL (152-406); RBC Red Blood Cell Count 4.26 M/uL (3.86-4.86); Red Cell Distribution Width 15.4 % (12.1-15.2)
[2024-02-10 15:12] LABS: PT Prothrombin Time 14.6 SECONDS (9.4-12.5); Protime INR 1.31
[2024-02-10 15:20] LABS: Albumin 3.4 g/dL (3.4-5.0); Albumin/Globulin Ratio 0.7 (1.1-1.8); Anion Gap 8.5 mEq/L (5.0-15.0); Bilirubin Direct 0.2 mg/dL (0-0.2); Bilirubin Indirect, Calculated 0.3 mg/dL (0.2-0.8); Bilirubin Total 0.5 mg/dL (0.2-1.0); Globulin 4.8 g/dL (2.3-3.5); Potassium 3.5 mEq/L (3.5-5.1); Protein, Total 8.2 g/dL (6.4-8.2); Troponin High Sensitivity 3.7 pg/mL (<58.9)
[2024-02-10] MEDS ORDERED: NA CHLORIDE 0.9% 1,000 ML ONE (15:26)
--- NOTE | 2024-02-10 15:59 | ER ---
Nurse's Notes [facility] Name: Sheila Vila Age: 73 yrs Sex: Female : 1950 Arrival Date: 02/10/2024 Time: 11:34 Bed 15 Private MD: Diagnosis: Abdominal pain, Generalized;Vomiting;Dehydration Presentation: 02/09 11:48 Chief complaint: Patient states: LEFT LOWER ABD PAIN X 2 WEEKS RADIATING TO BACK db GRADUALLY GETTING WORSE. COMPLAINS OF NAUSEA AND DIZZINESS. VOMITED X 2 YESTERDAY. UNABLE TO KEEP FOOD DOWN. Coronavirus screen: Client denies travel out of the [place] in the last 14 days. At this time, the client does not indicate any symptoms associated with coronavirus-19. Ebola Screen: Patient negative for fever greater than or equal to 101.5 degrees Fahrenheit, and additional compatible Ebola Virus Disease symptoms Patient denies exposure to infectious person. Patient denies travel to an Ebola-affected area in the 21 days before illness onset. No symptoms or risks identified at this time. Initial Sepsis Screen: Does the patient meet any 2 criteria? Yes Does the patient have a suspected source of infection? No. Patient's initial sepsis screen is negative. Risk Assessment: Do you want to hurt yourself or someone else? Patient reports no desire to harm self or others. Onset of symptoms was January 27, 2024. 11:48 Method Of Arrival: Ambulatory db 11:48 Acuity: SYLVESTER 3 db Historical: - Allergies: 11:52 Darvocet-N 100; db 11:52 PENICILLINS; db 11:52 Propoxyphene; db 11:52 Toradol; db - PMHx: 11:52 Asthma; Cirrhosis; COPD; Hepatitis; resolved; Hypertension; Diabetes - IDDM; db Pancreatitis; Pneumonia; - PSHx: 11:52 Cholecystectomy; hysterectomy; knee sx; db - Immunization history:: Adult Immunizations unknown. - Infectious Disease History:: Denies. - Social history:: Smoking status: Patient denies any tobacco usage or history of. Screenin:[address] [facility] ED Fall Risk Assessment (Adult) History of falling in the last 3 months, tm6 including since admission No falls in past 3 months (0 pts) Confusion or Disorientation No (0 pts) Intoxicated or Sedated No (0 pts) Impaired Gait No (0 pts) Mobility Assist Device Used No (0 pt) Altered Elimination No (0 pt) Score/Fall Risk Level 0 - 2 = Low Risk Oriented to surroundings, Maintained a safe environment, Educated pt \T\ family on fall prevention, incl call for assistance when getting out of bed. Abuse screen: Denies threats or abuse. Denies injuries from another. Nutritional screening: No deficits noted. Tuberculosis screening: No symptoms or risk factors identified. Assessment: 14:17 Reassessment: Patient appears in no apparent distress at this time. Patient and/or db family updated on plan of care and expected duration. Pain level reassessed. Patient is alert, oriented x 3, equal unlabored respirations, skin warm/dry/pink. General: Appears in no apparent distress. comfortable, Behavior is calm, cooperative. Pain: Complains of pain in abdomen. Neuro: Level of Consciousness is awake, alert, obeys commands, Oriented to person, place, time, situation. Respiratory: Airway is patent Respiratory effort is even, unlabored, Respiratory pattern is regular, symmetrical. GI:. 15:52 General: Appears in no apparent distress. Behavior is calm, cooperative. Pain: tm6 Complains of pain in abdomen Pain began two weeks ago. Neuro: Level of Consciousness is awake, alert, obeys commands, Oriented to person, place, time, situation. Cardiovascular: Patient's skin is warm and dry. Respiratory: Airway is patent Respiratory effort is even, unlabored, Respiratory pattern is regular, symmetrical. GI: Bowel sounds present X 4 quads. Abd is soft and non tender Reports lower abdominal pain, nausea. : No signs and/or symptoms were reported regarding the genitourinary system. EENT: No signs and/or symptoms were reported regarding the EENT system. Derm: No signs and/or symptoms reported regarding the dermatologic system. Musculoskeletal: Reports pain in back. 16:24 Reassessment: Patient and/or family updated on plan of care and expected duration. Pain tm6 level reassessed. Patient is alert, oriented x 3, equal unlabored respirations, skin warm/dry/pink. 18:02 Reassessment: Patient and/or family updated on plan of care and expected duration. Pain tm6 level reassessed. Patient is alert, oriented x 3, equal unlabored respirations, skin warm/dry/pink. Vital Signs: 11:48 BP 162 / 113; Pulse 109; Resp 18; Temp 98.5; Pulse Ox 97% ; Weight 86.18 kg; Height 5 db ft. 5 in. ; Pain 8/10; 15:52 BP 171 / 101; Pulse 105; Pulse Ox 98% on R/A; Pain 8/10; tm6 16:24 BP 156 / 79; Pulse 104; Pulse Ox 97% on R/A; MAP 93 mmHg; Pain 8/10; tm6 18:02 BP 135 / 111; Pulse 106; Pulse Ox 100% on R/A; MAP 120 mmHg; tm6 19:38 BP 141 / 96; Pulse 93; Resp 18; Temp 98.5; Pulse Ox 100% on R/A; MAP 110 mmHg; Pain tm6 5/10; 11:48 Body Mass Index 31.62 (86.18 kg, 165.1 cm) db 11:48 Pain Scale: Adult db 15:52 Pain Scale: Adult tm6 16:24 Pain Scale: Adult tm6 19:38 Pain Scale: Adult tm6 [place] Coma Score: 15:59 Eye Response: spontaneous(4). Motor Response: obeys commands(6). Verbal Response: nolvia oriented(5). Total: 15. ED Course: 11:37 Patient arrived in ED. mr 11:52 Triage completed. db 11:52 Merlin Chang MD is Attending Physician. nolvia 11:52 Arm band placed on Patient placed in waiting room. db 13:05 XRAY Chest (1 view) In Process Unspecified. EDMS 13:39 Radiology exam delayed due to IV insertion attempt and/or patient not having nj appropriate IV at this time. 13:39 Radiology exam delayed due to lab results not completed at this time. (BUN/Creatinine). nj 14:07 Urine collected: clean catch specimen, clear. Missed attempt(s): 22 gauge antecubital db area. Bleeding controlled, band aid applied, catheter tip intact. 14:09 Radiology exam delayed due to lab results not completed at this time. (BUN/Creatinine) nj IV insertion attempt and/or patient not having appropriate IV at this time. 14:33 Phil Tinoco, RN is Primary Nurse. tm6 14:45 Radiology exam delayed due to lab results not completed at this time. (BUN/Creatinine) sj IV insertion attempt and/or patient not having appropriate IV at this time. 14:54 Accessed peripheral vein via ultrasound, utilizing dynamic ultrasound technique using ss 20G Nexia IV catheter ,sterile technique, per hospital protocol. Clean \T\ dry. Good blood return. Flushes easily. 15:52 Patient has correct armband on for positive identification. Placed in gown. Bed in low tm6 position. Call light in reach. Side rails up X 1. Provided Education on: use of call rivas. Client placed on continuous cardiac and pulse oximetry monitoring. NIBP monitoring applied. radiation monitor on. Pulse ox on. NIBP on. Door closed. Noise minimized. Warm blanket given. 15:57 Sanjay Parmar MD is Hospitalizing Provider. nolvia 16:02 CT Abd/Pelvis - IV Contrast Only In Process Unspecified. EDMS 16:03 CT Head Brain wo Cont In Process Unspecified. EDMS 16:58 Cory Schwartz MD is Hospitalizing Provider. nolvia 17:23 1723 CM attempted initial assessment, profile grinder technician at the bedside administering care. ane 1743 CM met with at the bedside in the ED exam room. Patient identified by name and . Demographic sheet confirmed. Patient states she lives with her granddaughter Dangelo and her daughter Virgen in a single story home. She reports that prior to admission, she performs ADLs independently. DME in the home includes a nebulizer. No HH, no home oxygen or other medical services at this time .Patient does not have a specific PCP, however seeks medical care at the [facility]. No MPOA in place. Patient wishes to return home upon discharge and states that her daughter Virgen will transport her home. CM team will continue to follow and coordinate care during this hospital stay. 19:39 No provider procedures requiring assistance completed. Patient admitted, IV remains in tm6 place. Administered Medications: 16:20 Drug: NS 0.9% IV 1000 ml IV at 1 bolus Per protocol; to be given as a bolus over 60 tm6 minutes Route: IV; Rate: 1 bolus; Site: left wrist; 19:40 Follow up: Response: No adverse reaction; IV Status: Completed infusion; IV Intake: tm6 1000ml 16:20 Drug: Ondansetron IVP 4 mg IVP once; over 2 minutes Route: IVP; Site: left wrist; tm6 19:40 Follow up: Response: No adverse reaction tm6 16:20 Drug: fentaNYL (PF) IVP 50 mcg IVP once Route: IVP; Site: left wrist; tm6 19:40 Follow up: Response: No adverse reaction tm6 16:20 Drug: Famotidine IVP 20 mg IVP once; dilute with 10 mL 0.9% NaCl; give over 2 minutes tm6 Route: IVP; Site: left wrist; 19:40 Follow up: Response: No adverse reaction tm6 19:40 Not Given (Physician Discretion): ns 0.9% 1000 ml IV at 125 ml/hr continuous tm6 Medication: 15:52 VIS not applicable for this client. tm6 Point of Care Testing: Blood Glucose: 11:52 Blood Glucose: 181 mg/dL; db Ranges: Intake: 19:40 IV: 1000ml; Total: 1000ml. tm6 Outcome: 15:58 Decision to Hospitalize by Provider. nolvia 19:39 Admitted to Med/surg accompanied by nurse, via wheelchair, room 219, with chart, tm6 19:39 Condition: stable 19:39 Instructed on the need for admit, 19:59 Patient left the ED. tm6 Signatures: Dispatcher [employer] EDMS Merlin Chang MD MD cha Rivera, Kimberly, Reg Reg mr Watters JessicaDebra Chu, Dmitry Israel RN, Danielle, RN RN db Masterson, Tawney, RN RN tm6 Patricia Gutierrez RN RN ane
--- NOTE | 2024-02-10 15:59 | EDPHYS ---
Physician Documentation [facility] Name: Sheila Vila Age: 73 yrs Sex: Female : 1950 Arrival Date: 02/10/2024 Time: 11:34 Bed 15 Private MD: ED Physician Merlin Chang HPI: 02/09 15:50 This 73 yrs old Black Female presents to ER via Ambulatory with complaints of Abdominal nolvia Pain, Back Pain, Nausea, Headache. 15:50 The patient presents with pain that is acute, with no known mechanism of injury. nolvia Historical: - Allergies: 11:52 Darvocet-N 100; db 11:52 PENICILLINS; db 11:52 Propoxyphene; db 11:52 Toradol; db - PMHx: 11:52 Asthma; Cirrhosis; COPD; Hepatitis; resolved; Hypertension; Diabetes - IDDM; db Pancreatitis; Pneumonia; - PSHx: 11:52 Cholecystectomy; hysterectomy; knee sx; db - Immunization history:: Adult Immunizations unknown. - Infectious Disease History:: Denies. - Social history:: Smoking status: Patient denies any tobacco usage or history of. ROS: 15:51 Constitutional: Negative for fever, chills, and weight loss, Eyes: Negative for injury, nolvia pain, redness, and discharge, ENT: Negative for injury, pain, and discharge, Neck: Negative for injury, pain, and swelling, Respiratory: Negative for shortness of breath, cough, wheezing, and pleuritic chest pain, Back: Negative for injury and pain, : Negative for injury, bleeding, discharge, and swelling, MS/Extremity: Negative for injury and deformity, Skin: Negative for injury, rash, and discoloration, Neuro: Negative for headache, weakness, numbness, tingling, and seizure, Psych: Negative for depression, anxiety, suicide ideation, homicidal ideation, and hallucinations, Allergy/Immunology: Negative for hives, rash, and allergies, Endocrine: Negative for neck swelling, polydipsia, polyuria, polyphagia, and marked weight changes, Hematologic/Lymphatic: Negative for swollen nodes, abnormal bleeding, and unusual bruising, 15:51 Cardiovascular: Positive for palpitations, 15:51 Respiratory: Positive for cough, 15:51 Abdomen/GI: Positive for abdominal pain, nausea and vomiting, abdominal cramps, abdominal distension, Exam: 15:51 Constitutional: This is a well developed, well nourished patient who is awake, alert, nolvia and in no acute distress. Head/Face: Normocephalic, atraumatic. Eyes: Pupils equal round and reactive to light, extra-ocular motions intact. Lids and lashes normal. Conjunctiva and sclera are non-icteric and not injected. Cornea within normal limits. Periorbital areas with no swelling, redness, or edema. ENT: Nares patent. No nasal discharge, no septal abnormalities noted. Tympanic membranes are normal and external auditory canals are clear. Oropharynx with no redness, swelling, or masses, exudates, or evidence of obstruction, uvula midline. Mucous membranes moist. Neck: Trachea midline, no thyromegaly or masses palpated, and no cervical lymphadenopathy. Supple, full range of motion without nuchal rigidity, or vertebral point tenderness. No Meningismus. Chest/axilla: Normal chest wall appearance and motion. Nontender with no deformity. No lesions are appreciated. Respiratory: Lungs have equal breath sounds bilaterally, clear to auscultation and percussion. No rales, rhonchi or wheezes noted. No increased work of breathing, no retractions or nasal flaring. Back: No spinal tenderness. No costovertebral tenderness. Full range of motion. Female : Normal external genitalia. Skin: Warm, dry with normal turgor. Normal color with no rashes, no lesions, and no evidence of cellulitis. MS/ Extremity: Pulses equal, no cyanosis. Neurovascular intact. Full, normal range of motion. Neuro: Awake and alert, GCS 15, oriented to person, place, time, and situation. Cranial nerves II-XII grossly intact. Motor strength 5/5 in all extremities. Sensory grossly intact. Cerebellar exam normal. Normal gait. Psych: Awake, alert, with orientation to person, place and time. Behavior, mood, and affect are within normal limits. 15:51 Cardiovascular: Rate: tachycardic, actual rate is 109 bpm, Rhythm: regular, Pulses: no pulse deficits are appreciated, Edema: is not appreciated, JVD: is not appreciated, 15:51 ECG was reviewed by the Attending Physician. 15:51 Abdomen/GI: Inspection: distension, that is mild, Bowel sounds: active, all quadrants, Palpation: mild abdominal tenderness, in all quadrants, Liver: no appreciated palpable abnormalities, Hernia: not appreciated, Vital Signs: 11:48 BP 162 / 113; Pulse 109; Resp 18; Temp 98.5; Pulse Ox 97% ; Weight 86.18 kg; Height 5 db ft. 5 in. ; Pain 8/10; 15:52 BP 171 / 101; Pulse 105; Pulse Ox 98% on R/A; Pain 8/10; tm6 16:24 BP 156 / 79; Pulse 104; Pulse Ox 97% on R/A; MAP 93 mmHg; Pain 8/10; tm6 18:02 BP 135 / 111; Pulse 106; Pulse Ox 100% on R/A; MAP 120 mmHg; tm6 19:38 BP 141 / 96; Pulse 93; Resp 18; Temp 98.5; Pulse Ox 100% on R/A; MAP 110 mmHg; Pain tm6 5/10; 11:48 Body Mass Index 31.62 (86.18 kg, 165.1 cm) db 11:48 Pain Scale: Adult db 15:52 Pain Scale: Adult tm6 16:24 Pain Scale: Adult tm6 19:38 Pain Scale: Adult tm6 [place] Coma Score: 15:59 Eye Response: spontaneous(4). Motor Response: obeys commands(6). Verbal Response: nolvia oriented(5). Total: 15. MDM: 11:52 Medical Screening Exam initiated nolvia 15:53 Differential diagnosis: Nonspecific abd pain, gastritis, cholecystitis, pancreatitis, nolvia appendicitis, diverticulitis, viral gastroenteritis, gastroenteritis, Cholelithiasis Fatigue Hydronephrosis Obesity Pyelonephritis sprain, bowel obstruction, cholecystitis, Cholelithiasis, diverticulitis, gastritis, gastroesophageal reflux disease, GI Bleed, Hepatitis, Irritable bowel syndrome, myocardia ischemia or infarction, non-specific abd pain, pancreatitis, Peptic Ulcer Disease, Perf. Duodenal Ulcer, Perf. Gastric Ulcer, Peritonitis, Pyelonephritis, Ureterolithiasis, urinary tract infection. Data reviewed: vital signs, nurses notes, lab test result(s), EKG, radiologic studies, CT scan, plain films. Consideration of Admission/Observation Patient was admitted/placed on observation. Escalation of care including admission/observation considered. I considered the following discharge prescriptions or medication management in the emergency department Medications were administered in the Emergency Department. See MAR. Independent interpretation of the following test(s) in the Emergency Department EKG: See my EKG interpretation above. Test considered but Not performed: Ultrasound no abd usg. 02/09 11:53 Order name: Basic Metabolic Panel; Complete Time: 15:21 [facility] 02/09 11:53 Order name: CBC with Diff; Complete Time: 15:21 [facility] 02/09 11:53 Order name: LFT's; Complete Time: 15:21 [facility] 02/09 11:53 Order name: Magnesium; Complete Time: 15:21 [facility] 02/09 11:53 Order name: NT PRO-BNP; Complete Time: 15:21 [facility] 02/09 11:53 Order name: PT-INR; Complete Time: 15: [facility] 02/09 11:53 Order name: Troponin HS; Complete Time: 15:21 [facility] 02/09 11:53 Order name: Lipase; Complete Time: 15:21 [facility] 02/09 11:53 Order name: Urinalysis w/ reflexes; Complete Time: 15: [facility] 02/09 12:06 Order name: Glucose, Ancillary Testing; Complete Time: 15:21 [facility] 02/09 17:00 Order name: Urine Culture [facility] 02/09 17:50 Order name: CBC with Automated Diff EDCT 02/09 17:50 Order name: CBC with Automated Diff [facility] 02/09 17:50 Order name: CBC with Automated Diff EDMS 02/09 17:50 Order name: Comprehensive Metabolic Panel [facility] 02/09 17:50 Order name: Comprehensive Metabolic Panel [facility] 02/09 17:50 Order name: Comprehensive Metabolic Panel [facility] 02/09 17:50 Order name: Hemoglobin A1c EDCT 02/09 17:50 Order name: Hemoglobin A1c EDMS 02/09 17:50 Order name: Lipid Profile EDMS 02/09 17:50 Order name: Lipid Profile EDMS 02/09 17:50 Order name: Magnesium EDMS 02/09 17:50 Order name: Magnesium EDMS 02/09 17:50 Order name: Magnesium EDMS 02/09 17:50 Order name: Phosphorus EDMS 02/09 17:50 Order name: Phosphorus EDMS 02/09 17:50 Order name: Phosphorus EDMS 02/09 11:53 Order name: XRAY Chest (1 view); Complete Time: 15:21 [facility] 02/09 11:53 Order name: CT Abd/Pelvis - IV Contrast Only; Complete Time: 16:55 [facility] 02/09 15:49 Order name: CT Head Brain wo Cont; Complete Time: 16:55 [facility] 02/09 11:53 Order name: EKG; Complete Time: 11:56 [facility] 02/09 11:53 Order name: Cardiac monitoring; Complete Time: 16:21 [facility] 02/09 11:53 Order name: EKG - Nurse/Tech; Complete Time: 16:21 [facility] 02/09 11:53 Order name: IV Saline Lock; Complete Time: 14:54 [facility] 02/09 11:53 Order name: Labs collected and sent; Complete Time: 14:54 [facility] 02/09 11:53 Order name: O2 Per Protocol; Complete Time: 16:21 [facility] 02/09 11:53 Order name: O2 Sat Monitoring; Complete Time: 16:21 [facility] EC:51 Rate is 112 beats/min. Rhythm is regular. QRS [place] is Normal. [place] interval is normal. nolvia QRS interval is normal. QT interval is normal. No Q waves. T waves are Normal. No ST changes noted. Clinical impression: Sinus tachycardia and No evidence of ischemia. Interpreted by me. Reviewed by me. Administered Medications: 16:20 Drug: NS 0.9% IV 1000 ml IV at 1 bolus Per protocol; to be given as a bolus over 60 tm6 minutes Route: IV; Rate: 1 bolus; Site: left wrist; 19:40 Follow up: Response: No adverse reaction; IV Status: Completed infusion; IV Intake: tm6 1000ml 16:20 Drug: Ondansetron IVP 4 mg IVP once; over 2 minutes Route: IVP; Site: left wrist; tm6 19:40 Follow up: Response: No adverse reaction tm6 16:20 Drug: fentaNYL (PF) IVP 50 mcg IVP once Route: IVP; Site: left wrist; tm6 19:40 Follow up: Response: No adverse reaction tm6 16:20 Drug: Famotidine IVP 20 mg IVP once; dilute with 10 mL 0.9% NaCl; give over 2 minutes tm6 Route: IVP; Site: left wrist; 19:40 Follow up: Response: No adverse reaction tm6 19:40 Not Given (Physician Discretion): ns 0.9% 1000 ml IV at 125 ml/hr continuous tm6 Point of Care Testing: Blood Glucose: 11:52 Blood Glucose: 181 mg/dL; db Ranges: Critical Glucose Levels:Adult <50 mg/dl or >400 mg/dl <40 mg/dl or >180 mg/dl Disposition Summary: 02/10/24 15:58 Hospitalization Ordered Notes: Hospitalization Status: Observation nolvia Location: Telemetry/MedSurg (observation) nolvia Condition: Stable nolvia Problem: new nolvia Symptoms: have improved nolvia Bed/Room Type: Standard nolvia Provider: Cory Schwartz(02/10/24 16:58) nolvia Room Assignment: [facility](02/10/24 18:11) 6 Diagnosis - Abdominal pain, Generalized nolvia - Vomiting nolvia - Dehydration nolvia Forms: - Medication Reconciliation Form nolvia - SBAR form nolvia - Leadership Thank You Letter nolvia Signatures: Dispatcher [employer] EDMS Merlin Chang MD MD cha Page, Corey, PA PA cp Benton, Danielle, RN RN Rosana Noland [facility] Phil Tinoco RN RN tm6 Corrections: (The following items were deleted from the chart) 11:56 11:56 Abdomen Pelvis W Con+CT.RAD.BRZ ordered. EDCT EDCT 16:58 15:58 Sanjay Parmar [facility] 18:11 15:58 [place] [id number]
[2024-02-10] MEDS ORDERED: ONDANSETRON 4 MG/2 ML VIAL ONE (16:07)
[2024-02-10] MEDS ORDERED: FENTANYL CITR 100 MCG/2 ML ONE (16:07)
[2024-02-10] MEDS ORDERED: FAMOTIDINE 20 MG/2 ML VIAL IV ONE (16:08)
--- NOTE | 2024-02-10 16:48 | RAD REPORT ---
EXAM: CT Head Brain Wo Cont HISTORY: Dizziness;Headache COMPARISON: 12/29/2018 TECHNIQUE: Multiple contiguous axial images were obtained for a CT of the brain without contrast. Sag ittal and coronal reformats were performed. One or more of the following dose reduction techniques were used: Automated exposure control, adjus tment of the mA and kV according to patient size, and iterative reconstruction. Unless otherwise specified, incidental findings do not require dedicated imaging follow-up. FINDINGS: No evidence of hydrocephalus, intracranial hemorrhage, or extra-axial fluid collection. The brain is normal in morphology. The calvarium is intact. The visualized paranasal sinuses and mastoid air cells are essentially clear . IMPRESSION: No evidence of acute intracranial abnormality.
--- NOTE | 2024-02-10 16:54 | RAD REPORT ---
EXAMINATION: CT Abdomen Pelvis W Contrast CLINICAL INDICATION: Female, 73 years old. ABD PAIN TECHNIQUE: CT abdomen and pelvis was performed, after the administration of IV contrast, [facility]. Axial, sagittal and coronal reconstructions were obtained. One or more of the following dose reduction techniques were used: Automated exposure control, adjustment of the mA and k V according to patient size, and iterative reconstruction. Unless otherwise specified, incidental findings do not require dedicated imaging follow-up. COMPARISON: CT abdomen and pelvis 10/05/2021. FINDINGS: LOWER CHEST: The visualized lung bases are clear. LIVER: Nodular contour of the liver suggesting cirrhosis. Stable 1.3 cm segment IVb hypoattenuating l esion, and another 9 mm segment 6 hypoattenuating lesion, suggestive of cysts, but not well characterized. No other suspicious focal lesion. BILIARY SYSTEM: Status post cholecystectomy. Stable prominence of the common bile duct, favored to re late to postcholecystectomy status. SPLEEN: Mildly enlarged spleen, measuring 13.6 cm in long axis, progressively enlarged since the prio r exam. 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 No focal lesion. PANCREAS: No mass, ductal dilation, or kassy-pancreatic fluid. ADRENALS: Normal; no mass. KIDNEYS: Normal size and contour. No hydronephrosis. URINARY BLADDER: Unremarkable. GASTROINTESTINAL TRACT: No evidence of free air, significant intra-abdominal free fluid, bowel obstru ction or abscess. Mild distal colonic diverticulosis. APPENDIX: Normal appendix. LYMPH NODES: No lymphadenopathy. MUSCULOSKELETAL: No acute or suspicious osseous abnormality. ADDITIONAL FINDINGS: Status post hysterectomy. IMPRESSION: Sequelae of cirrhosis with progressive mild splenomegaly. Stable small hypoattenuating hepatic lesion s, not well characterized. Stability suggests benign nature. No other acute or suspicious findings. Other stable incidental findings as above.
--- NOTE | 2024-02-10 17:30 | P.HP ---
Certification for Inpatient Patient admitted to: Observation With expected LOS: <2 Midnights Patient will require the following post-hospital care: None Practitioner: I am a practitioner with admitting privileges, knowledge of patient current condition, hospital course, and medical plan of care. Services: Services provided to patient in accordance with Admission requirements found in Title 42 Section 412.3 of the Code of Federal Regulations <Zulema Pacheco - Last Filed: 02/10/24 17:20> Patient History Date of Service: 02/10/24 Reason for admission: Volume depletion, abdominal pain, nausea/vomiting History of Present Illness: Ms. 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 She presented to the emergency department today with abdominal pain, back pain, nausea and vomiting, and headache. This is associated with palpitations and cough. She denies any hematemesis, diarrhea, recent trauma, recent travel, weakness, or edema. Vital signs on arrival 156/79, heart rate 104, respiratory rate 18, afebrile, oxygen saturation 97%, she is 5'5" and weighs 86 kg. In the emergency room she was given 1 L bolus of normal saline, fentanyl 50 mcg IV, Zofran 4 mg IV, and Pepcid 20 mg IV. She states this helped temporarily but the pain is coming back. Laboratory evaluation shows a normal CBC except for platelets of 111, no transaminitis, Chem-7 unremarkable except a glucose of 151, urine positive for 20-50 bacteria and it was sent for culture, INR 1.31, lipase 19, BNP 19, troponin 3.7. Imaging: CT head negative for any acute intracranial abnormalities, chest x-ray negative for any acute intrathoracic abnormalities, CT abdomen and pelvis with contrast impression: "Sequelae of cirrhosis with progressive mild splenomegaly. Stable small hypoattenuating hepatic lesions, not well-characterized, stability suggest benign nature. No other acute or suspicious findings." She will be admitted for observation and monitoring with symptom treatment for dehydration, possible urinary tract infection, and abdominal pain. Home medications list reviewed: Yes - Past Medical/Surgical History Has patient received pneumonia vaccine in the past: Yes Diabetic: Yes -: CAD -: COPD -: Diabetes mellitus type 2 -: Hypertension -: Chronic pain syndrome -: Liver cirrhosis, fatty liver -: Chronic thrombocytopenia -: Hepatitis-C -: History CVA -: Morbid obesity -: Obstructive sleep apnea -: glaucoma -: Right knee surgery -: Cholecystectomy -: Hysterectomy Psychosocial/ Personal History: The patient is single. She has 3 children. She currently lives with her granddaughter. - Family History Father -: Cancer Mother -: Lung disease, Cancer, Other (see notes) Notes: brain cancer - Social History Alcohol use: No CD- Drugs: No Caffeine use: Yes Place of Residence: Home <Zulema Pacheco - Last Filed: 02/10/24 17:20> Date of Service: 02/10/24 <Cory Schwartz - Last Filed: 02/10/24 18:27> Allergies ketorolac Allergy (Severe, Verified 05/15/14 01:15) Hives/Rash ketorolac tromethamine [From Toradol] Allergy (Mild, Verified 03/14/12 17:55) Hives/Rash Penicillins Allergy (Mild, Verified 03/14/12 17:55) Itching propoxyphene napsylate [From Darvocet-N 100] Allergy (Mild, Verified 05/19/13 00:28) Nausea/Vomiting Home Medications: ALPRAZolam [Xanax*] 2 mg PO TID 08/03/16 Clonidine HCl [Catapres*] 0.2 mg PO DAILY 03/25/17 Montelukast [Singulair*] 10 mg PO DAILY 03/25/17 Quetiapine Fumarate [Seroquel] 800 mg PO BEDTIME 03/25/17 Amlodipine [Norvasc*] 10 mg PO BID 12/29/18 Pantoprazole [Protonix Tab*] 40 mg PO DAILY 12/29/18 Meclizine HCl [Antivert*] 25 mg PO Q6H PRN #20 tab 02/04/22 Nepafenac [Ilevro] 1 drop OPTH QID 02/04/22 Umeclidinium [place] [Incruse Ellipta] 62.5 mcg IH DAILY 02/04/22 Ciprofloxacin HCl 500 mg PO BID #10 tab 12/08/22 Hydrocodone 10/APAP 325 [[place] 10/325*] 1 tab PO TID #12 tab 12/08/22 Review of Systems 10-point ROS is otherwise unremarkable General: Unremarkable Eyes: Unremarkable ENT: Unremarkable Respiratory: Cough Cardiovascular: Unremarkable Gastrointestinal: Nausea, Vomiting, Abdominal Pain (Upper and suprapubic) Genitourinary: Unremarkable Musculoskeletal: Unremarkable Integumentary: Unremarkable Neurological: Other (Headache) Lymphatics: Unremarkable <Zulema Pachecolen - Last Filed: 02/10/24 17:20> Physical Examination - Physical Exam General: Alert, In no apparent distress, Oriented x3, Cooperative, Obese HEENT: Atraumatic, Normocephalic Neck: Supple Respiratory: Clear to auscultation bilaterally, Normal air movement Cardiovascular: Regular rate/rhythm (Tachycardic), No murmurs Capillary refill: <2 Seconds Gastrointestinal: Normal bowel sounds, Tenderness (Upper and suprapubic) Musculoskeletal: No clubbing, No swelling Integumentary: No rashes Neurological: Normal speech, Normal tone, Normal affect Lymphatics: No axilla or inguinal lymphadenopathy External genitalia: Deferred Rectal: Deferred - Studies Laboratory Data (last 24 hrs) 02/10/24 02/10/24 02/10/24 14:52 14:52 14:52 WBC 5.80 Hgb 12.1 Hct 36.2 Plt Count 111 L PT 14.6 H INR 1.31 Sodium 139 Potassium 3.5 BUN 6 L Creatinine 0.71 Glucose 151 H Magnesium 2.0 Total Bilirubin 0.5 AST 60 H ALT 36 Alkaline Phosphatase 111 Lipase 19 <Zulema Pachecolen - Last Filed: 02/10/24 17:20> - Studies Laboratory Data (last 24 hrs) 02/10/24 02/10/24 02/10/24 14:52 14:52 14:52 WBC 5.80 Hgb 12.1 Hct 36.2 Plt Count 111 L PT 14.6 H INR 1.31 Sodium 139 Potassium 3.5 BUN 6 L Creatinine 0.71 Glucose 151 H Magnesium 2.0 Total Bilirubin 0.5 AST 60 H ALT 36 Alkaline Phosphatase 111 Lipase 19 <Cory Schwartz - Last Filed: 02/10/24 18:27> Assessment and Plan - Plan Volume depletion status post nausea/vomiting Abdominal pain/suprapubic pain Aggressive IV hydration IV antibiotic if urine culture positive Nausea control Pain control Clear liquid diet Diabetes Hemoglobin A1c Blood glucose monitor Sliding scale insulin coverage Hypertension Verify home meds Start as appropriate Cirrhosis with thrombocytopenia Monitor CBC Monitor for bleeding COPD Nebs every 6 as needed Elevated BMI Advised to lose weight VTE/GI prophylaxis Teds Discharge Plan: Home Plan to discharge in: 24 Hours - Advance Directives Does patient have a Living Will: No Does patient have a Durable POA for Healthcare: No - Code Status/Comfort Care Code Status Assessed: Yes (Full) <Zulema Pacheco Stanislaw - Last Filed: 02/10/24 17:20> - Plan Pt seen and examined. I agree with the note by the BRANCH MANAGER TRAINEE. Pt is a 73-year-old female with past medical history of asthma, COPD, liver cirrhosis 2/2 hep C (treated and now undetectable), hypertension, pancreatitis, and pneumonia who presented with nausea, vomiting, abdominal pain and back pain that started earlier today and progressively worsened. On admission, pt received IVF and fentanyl which gave her minor relieve. Lab studies show wbc 5.8, Hgb 12.1, K 3.5, Cr 0.[address] head is unremarkable. Chest x-ray negative for any acute intrathoracic abnormalities, CT abdomen and pelvis with contrast shows liver cirrhosis with progressive mild splenomegaly. Stable small hypoattenuating hepatic lesions, not well-characterized, stability suggest benign nature. At bedside, pt is in NAD. A/P: Nausea, vomiting and abdominal pain: CT abd shows liver cirrhosis with mild splenomegaly. Will continue IVF, morphine, and prn antiemetics. Hx of liver cirrhosis with thrombocytopenia: Will monitor LFTs. Avoid antiplatelet DM II: Will continue accuchek, SSI and ADA diet. Htn: Continue home med. Hx of COPD: Will continue prn duoneb DVT ppx: SCD. Code: full <Cory Schwartz - Last Filed: 02/10/24 18:27>
[2024-02-10] MEDS ORDERED: MECLIZINE HCL 12.5 MG TAB PO PRN (17:35)
[2024-02-10] MEDS ORDERED: SODIUM CHLORIDE 0.9% 10ML INJ IV PRN (17:35)
[2024-02-10] MEDS: NA CHLORIDE 0.9% 1,000 ML IV SCH (18:00)
[2024-02-10] MEDS: IPRATROPIUM BROM 0.5MG/2.5ML NEB SCH (19:00)
[2024-02-10] MEDS: ARFORMOTEROL TARTRATE 15 MCG/2 ML VIAL.NEB NEB SCH (19:00)
[2024-02-10] MEDS ORDERED: MORPHINE 2 MG/ML SYR ONE (19:28)
[2024-02-10] MEDS ORDERED: PROMETHAZINE INJ 25 MG/ML AMP ONE (19:28)
[2024-02-10] MEDS ORDERED: cloNIDine HCL 0.1 MG TAB PO PRN (21:00)
[2024-02-10] MEDS: INSULIN REGULAR (HUMAN) 100 UNIT/ML SQ SCH (21:00)
[2024-02-10] MEDS: MONTELUKAST 10 MG TAB PO SCH (22:36)
[2024-02-10] MEDS: PANTOPRAZOLE 40 MG INJ IVP SCH (22:36)
[2024-02-10] MEDS: QUETIAPINE 100MG TAB PO SCH (22:36)
[2024-02-10] MEDS: MORPHINE 2 MG/ML SYR IV PRN (23:30)
[2024-02-11] MEDS: PROMETHAZINE INJ 25 MG/ML AMP IV PRN (02:15)
[2024-02-11 02:28] VITALS: O2SAT 98; BMI 33.6
--- NOTE | 2024-02-11 07:44 | P.PN ---
Subjective Date of Service: 02/11/24 Chief Complaint: Volume depletion, abdominal pain, nausea/vomiting Subjective: Improving (mild continued dizziness, no further vomiting, minimal upper and suprapubic "sore" feeling) <Zulema Pachecolen - Last Filed: 02/11/24 07:39> Date of Service: 02/11/24 <Cory Schwartz - Last Filed: 02/11/24 12:46> Review of Systems 10-point ROS is otherwise unremarkable General: Weakness, Malaise Eyes: Unremarkable ENT: Unremarkable Respiratory: Cough Cardiovascular: Unremarkable Gastrointestinal: Unremarkable Musculoskeletal: Unremarkable Integumentary: Unremarkable Neurological: As per HPI Lymphatics: Unremarkable <Zulema Pachecolen - Last Filed: 02/11/24 07:39> Physical Examination - Vital Signs Temperature: 96.8 F Blood Pressure: 148/73 Pulse: 108 Respirations: 18 Pulse Ox (%): 97 - Physical Exam General: Alert, In no apparent distress, Oriented x3 HEENT: Atraumatic, Normocephalic Neck: Supple Respiratory: Clear to auscultation bilaterally, Normal air movement Cardiovascular: No edema, Regular rate/rhythm, Normal S1 S2 Capillary refill: <2 Seconds Gastrointestinal: Soft and benign, Tenderness (minimal) Musculoskeletal: No clubbing Integumentary: No rashes Neurological: Normal speech, Normal tone, Normal affect Lymphatics: No axilla or inguinal lymphadenopathy External genitalia: Deferred Rectal: Deferred - Studies Laboratory Data (last 24 hrs) 02/10/24 02/10/24 02/10/24 14:52 14:52 14:52 WBC 5.80 Hgb 12.1 Hct 36.2 Plt Count 111 L PT 14.6 H INR 1.31 Sodium 139 Potassium 3.5 BUN 6 L Creatinine 0.71 Glucose 151 H Magnesium 2.0 Total Bilirubin 0.5 AST 60 H ALT 36 Alkaline Phosphatase 111 Lipase 19 <Zulema Pachecolen - Last Filed: 02/11/24 07:39> - Studies Laboratory Data (last 24 hrs) 02/10/24 02/10/24 02/10/24 14:52 14:52 14:52 WBC 5.80 Hgb 12.1 Hct 36.2 Plt Count 111 L PT 14.6 H INR 1.31 Sodium 139 Potassium 3.5 BUN 6 L Creatinine 0.71 Glucose 151 H Magnesium 2.0 Total Bilirubin 0.5 AST 60 H ALT 36 Alkaline Phosphatase 111 Lipase 19 <Cory Schwartz - Last Filed: 02/11/24 12:46> Assessment And Plan - Plan Volume depletion status post nausea/vomiting Abdominal pain/suprapubic pain Aggressive IV hydration - feeling better IV antibiotic if urine culture positive - awaiting cx Nausea control Pain control Clear liquid diet Diabetes Hemoglobin A1c Blood glucose monitor Sliding scale insulin coverage Hypertension Verify home meds Start as appropriate Cirrhosis with thrombocytopenia Monitor CBC Monitor for bleeding COPD Nebs every 6 as needed Elevated BMI Advised to lose weight 02/11/24 looks better keeping eyes open no further vomiting Daughter hospitalized (Covid) will test for covid awaiting urine cx pain meds changed from Morphine to Fioricet may advance diet VTE/GI prophylaxis Teds Discharge Plan: Home Plan to discharge in: 24 Hours - Code Status/Comfort Care Code Status Assessed: Yes (Full) <Zulema Pacheco - Last Filed: 02/11/24 07:39> - Plan Pt winter nd examined. I agree with the note by the TRUCK LOADER AND UNLOADER. Pt wants to continue morphine because it controlled the abdominal pain. No nausea or vomiting. She tested negative for COVID. Continue prn miralax. Will give iv abx if urine cx is positive. Urinalysis shows presence of bacteria <Cory Schwartz - Last Filed: 02/11/24 12:46>
[2024-02-11] MEDS: ACETAMIN/CAFFEINE/BUTALB TAB PO PRN (07:49)
[2024-02-11 08:42] LABS: Absolute Eosinophils 0.1 K/uL (0-0.5); Absolute Lymphocytes (CBC) 0.8 K/uL (0.7-4.9); Absolute Monocytes 0.5 K/uL (0.1-1.3); Basophils % 0.3 % (0-1.3); Eosinophils % 2.3 % (0-4.4); Hematocrit 36.1 % (36.0-45.0); Hemoglobin 11.9 g/dL (12.0-15.0); Lymphocytes % 17.8 % (15.3-44.8); MCH 28.2 pg (27.0-35.0); MCHC 33.1 g/dL (32.0-36.0); MCV 85.4 fL (80-100); MPV 8.8 fL (7.6-11.3); Monocytes % 10.6 % (3.3-12.3); Nucleated Red Blood Cells % 0.1 % (0-0); Platelets 101 thou/uL (152-406); RBC Red Blood Cell Count 4.23 M/uL (3.86-4.86); Red Cell Distribution Width 15.5 % (12.1-15.2)
[2024-02-11] MEDS ORDERED: CLONIDINE 0.2 MG/PATCH TD SCH (09:00)
[2024-02-11 09:03] LABS: Albumin 3.1 g/dL (3.4-5.0); Albumin/Globulin Ratio 0.7 (1.1-1.8); Anion Gap 9.3 mEq/L (5.0-15.0); Bilirubin Total 0.6 mg/dL (0.2-1.0); Globulin 4.3 g/dL (2.3-3.5); Phosphorus 3.1 mg/dL (2.5-4.9); Potassium 3.3 mEq/L (3.5-5.1); Protein, Total 7.4 g/dL (6.4-8.2)
[2024-02-11 09:32] LABS: SARS-CoV-2 Antigen CONTROL BLUE LINE VIS/BG OK; SARS-CoV-2 Antigen Rapid Res Negative (Negative)
[2024-02-11 10:33] VITALS: BP 150/74; TEMP 97.3
[2024-02-11] MEDS ORDERED: MORPHINE 2 MG/ML SYR IV PRN (10:43)
[2024-02-11] MEDS ORDERED: POLYETHYL GLY 3350 17 GM/DOSE PO PRN (10:44)
[2024-02-11] MEDS: CIPROFLOXACIN HCL 500 MG TAB PO SCH (12:28)
[2024-02-11] MEDS: FLU (Fluarix Triv) TS24-25(6MOS UP)/PF 45 MCG/0.5 ML Syringe IM ONE (12:29)
[2024-02-11] MEDS: PNEUMOCOCCAL VACCINE 0.5 ML IMVAC ONE (13:36)
--- NOTE | 2024-02-11 14:13 | EKG ---
Test Date: 2024-02-10 Test Time: 15:47:40 Manager Culinary: SAAD MEASUREMENT RESULTS: Intervals: Rate: 112 RI: 166 QRSD: 74 QT: 340 QTc: 464 [place]: P: 53 RI: 166 QRS: 34 T: 38 INTERPRETIVE STATEMENTS: Sinus tachycardia Otherwise normal ECG Compared to ECG 01/06/2024 22:30:43 Sinus rhythm no longer present Myocardial infarct finding no longer present Electronically Signed On 02-11-24 14:11:14 CDT by Alfredito Warren
[2024-02-11] MEDS: NA CHLORIDE 0.9% 500 ML IV ONE (14:26)
[2024-02-11] MEDS ORDERED: D10W 125 ML IV PRN (14:28)
[2024-02-11] MEDS ORDERED: GLUCAGON 1 MG/VIAL IM PRN (14:28)
--- NOTE | 2024-02-11 15:35 | P.DS ---
Admission Date: 02/11/24 Discharge Date: 02/11/24 Reason for Admission: Volume depletion, abdominal pain, nausea/vomiting Brief History of Present Illness: Ms. 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 She presented to the emergency department today with abdominal pain, back pain, nausea and vomiting, and headache. This is associated with palpitations and cough. She denies any hematemesis, diarrhea, recent trauma, recent travel, weakness, or edema. Vital signs on arrival 156/79, heart rate 104, respiratory rate 18, afebrile, oxygen saturation 97%, she is 5'5" and weighs 86 kg. In the emergency room she was given 1 L bolus of normal saline, fentanyl 50 mcg IV, Zofran 4 mg IV, and Pepcid 20 mg IV. She states this helped temporarily but the pain is coming back. Laboratory evaluation shows a normal CBC except for platelets of 111, no transaminitis, Chem-7 unremarkable except a glucose of 151, urine positive for 20-50 bacteria and it was sent for culture, INR 1.31, lipase 19, BNP 19, troponin 3.7. Imaging: CT head negative for any acute intracranial abnormalities, chest x-ray negative for any acute intrathoracic abnormalities, CT abdomen and pelvis with contrast impression: "Sequelae of cirrhosis with progressive mild splenomegaly. Stable small hypoattenuating hepatic lesions, not well-characterized, stability suggest benign nature. No other acute or suspicious findings." She will be admitted for observation and monitoring with symptom treatment for dehydration, possible urinary tract infection, and abdominal pain. Hospital Course: Ms. Vila has had decreased dizziness, no further vomiting, no diarrhea, abdomen mildly tender left upper and suprapubic area with palpation, positive bowel sounds, no fever. She tolerated a ADA diet for lunch. She worked with PT. She got out of bed independently, ambulated the hallway 200 feet x 100 feet with no dizziness, no nausea, with a fairly steady balance with SpO2 on room air of 99%. We will discharge her status post 500 mL normal saline bolus, 1 dose morphine 4 mg IM, with a prescription for Cipro for minimal diverticulitis/bacteriuria. She should follow-up with her PCP on Wednesday. She is aware that her hemoglobin A1c is 8.3 which will keep her mildly dehydrated and then when she has any type of illness this will be exacerbated. <Zulema Pacheco Stanislaw - Last Filed: 02/11/24 15:29> Admission Date: 02/11/24 Discharge Date: 02/11/24 Hospital Course: Pt seen and examined. I agree with the note by the CONFECTIONERY LABORATORY MANAGER. Pt felt better after getting IVF. CT abdomen was unremarkable. She walked with PT and requested to be discharged. We gave her Cipro for bacteriuria. Pt was advised to lose weight. <ShiraaustinJesús ajtopher Michel - Last Filed: 02/11/24 17:45> Disposition: ROUTINE DISCHARGE Discharge Condition: GOOD Vital Signs/Physical Exam: Temp Pulse Resp BP Pulse Ox 97.3 F 98 H 17 150/74 H 97 02/11/24 08:00 02/11/24 08:00 02/11/24 08:00 02/11/24 08:00 02/11/24 08:00 General: Alert, In no apparent distress, Oriented x3, Obese HEENT: Atraumatic, Normocephalic, PERRLA Neck: Supple Respiratory: Normal air movement, Diminished Cardiovascular: Regular rate/rhythm, Normal S1 S2 Capillary refill: <2 Seconds Gastrointestinal: Normal bowel sounds, Tenderness (Mild upper and suprapubic) Musculoskeletal: No clubbing Integumentary: No rashes Neurological: Normal gait, Normal tone, Normal affect Lymphatics: No axilla or inguinal lymphadenopathy External genitalia: Deferred Rectal: Deferred Laboratory Data at Discharge: WBC 4.30 thou/uL (4.3-10.9) 02/11/24 08:31 Hgb 11.9 g/dL (12.0-15.0) L 02/11/24 08:31 Hct 36.1 % (36.0-45.0) 02/11/24 08:31 Plt Count 101 thou/uL (152-406) L 02/11/24 08:31 PT 14.6 SECONDS (9.4-12.5) H 02/10/24 14:52 INR 1.31 02/10/24 14:52 Sodium 140 mEq/L (136-145) 02/11/24 08:31 Potassium 3.3 mEq/L (3.5-5.1) L 02/11/24 08:31 BUN 6 mg/dL (7-18) L 02/11/24 08:31 Creatinine 0.74 mg/dL (0.55-1.02) 02/11/24 08:31 Glucose 147 mg/dL (74-106) H 02/11/24 08:31 Phosphorus 3.1 mg/dL (2.5-4.9) 02/11/24 08:31 Magnesium 2.0 mg/dL (1.6-2.4) 02/11/24 08:31 Total Bilirubin 0.6 mg/dL (0.2-1.0) 02/11/24 08:31 AST 64 U/L (15-37) H 02/11/24 08:31 ALT 35 U/L (13-56) 02/11/24 08:31 Alkaline Phosphatase 79 U/L (45-117) D 02/11/24 08:31 Triglycerides 134 mg/dL (<150) 02/11/24 08:31 Cholesterol 158 mg/dL (<200) 02/11/24 08:31 HDL Cholesterol 44 mg/dL (40-60) 02/11/24 08:31 Cholesterol/HDL Ratio 3.59 02/11/24 08:31 Lipase 19 U/L (13-75) 02/10/24 14:52 <Pacheco,Zulema Stanislaw - Last Filed: 02/11/24 15:29> Vital Signs/Physical Exam: Temp Pulse Resp BP Pulse Ox 97.3 F 98 H 17 150/74 H 97 02/11/24 08:00 02/11/24 08:00 02/11/24 08:00 02/11/24 08:00 02/11/24 08:00 Laboratory Data at Discharge: WBC 4.30 thou/uL (4.3-10.9) 02/11/24 08:31 Hgb 11.9 g/dL (12.0-15.0) L 02/11/24 08:31 Hct 36.1 % (36.0-45.0) 02/11/24 08:31 Plt Count 101 thou/uL (152-406) L 02/11/24 08:31 PT 14.6 SECONDS (9.4-12.5) H 02/10/24 14:52 INR 1.31 02/10/24 14:52 Sodium 140 mEq/L (136-145) 02/11/24 08:31 Potassium 3.3 mEq/L (3.5-5.1) L 02/11/24 08:31 BUN 6 mg/dL (7-18) L 02/11/24 08:31 Creatinine 0.74 mg/dL (0.55-1.02) 02/11/24 08:31 Glucose 147 mg/dL (74-106) H 02/11/24 08:31 Phosphorus 3.1 mg/dL (2.5-4.9) 02/11/24 08:31 Magnesium 2.0 mg/dL (1.6-2.4) 02/11/24 08:31 Total Bilirubin 0.6 mg/dL (0.2-1.0) 02/11/24 08:31 AST 64 U/L (15-37) H 02/11/24 08:31 ALT 35 U/L (13-56) 02/11/24 08:31 Alkaline Phosphatase 79 U/L (45-117) D 02/11/24 08:31 Triglycerides 134 mg/dL (<150) 02/11/24 08:31 Cholesterol 158 mg/dL (<200) 02/11/24 08:31 HDL Cholesterol 44 mg/dL (40-60) 02/11/24 08:31 Cholesterol/HDL Ratio 3.59 02/11/24 08:31 Lipase 19 U/L (13-75) 02/10/24 14:52 <Cory Schwartz - Last Filed: 02/11/24 17:45> Diet: ADA Activity: Fall precautions <Pacheco,Zulema Stanislaw - Last Filed: 02/11/24 15:29> <Cory Schwartz - Last Filed: 02/11/24 17:45> Home Medications: ALPRAZolam [Xanax*] 2 mg PO TID PRN 08/03/16 Clonidine HCl [Catapres*] 0.2 mg PO DAILY 03/25/17 Montelukast [Singulair*] 10 mg PO DAILY 03/25/17 Quetiapine Fumarate [Seroquel] 800 mg PO BEDTIME 03/25/17 Amlodipine [Norvasc*] 10 mg PO BID 12/29/18 Pantoprazole [Protonix Tab*] 40 mg PO DAILY 12/29/18 Ciprofloxacin HCl [Cipro 500 MG Tablet] 500 mg PO BID #20 tab 02/11/24 Hydrocodone 10/APAP 325 [[place] 10325*] 1 tab PO TID PRN 02/11/24 Insulin Aspart Prot/Insuln Asp [Novolog Mix 70-30 Flexpen] 2 unit SQ BEDTIME 02/11/24 Insulin Degludec [Tresiba] 80 unit SQ DAILY 02/11/24 Promethazine Tab [Phenergan*] 50 mg PO BID PRN 02/11/24 Semaglutide [Ozempic] 2 mg SQ EVERY 7TH DAY 02/11/24 New Medications: Ciprofloxacin HCl [Cipro 500 MG Tablet] 500 mg PO BID #20 tab Physician Discharge Instructions: Ms. Vila has had decreased dizziness, no further vomiting, no diarrhea, abdomen mildly tender left upper and suprapubic area with palpation, positive bowel sounds, no fever. She tolerated a ADA diet for lunch. She worked with PT. She got out of bed independently, ambulated the hallway 200 feet x 100 feet with no dizziness, no nausea, with a fairly steady balance with SpO2 on room air of 99%. We will discharge her status post 500 mL normal saline bolus, 1 dose morphine 4 mg IM, with a prescription for Cipro for minimal diverticulitis/bacteriuria. She should follow-up with her PCP on Wednesday. She is aware that her hemoglobin A1c is 8.3 which will keep her mildly dehydrated and then when she has any type of illness this will be exacerbated. Followup: NONE,NONE [Primary Care Provider] -
[2024-02-11] MEDS: lisinopriL 10 MG TAB PO SCH (16:26)
[2024-02-11] MEDS: MORPHINE 4 MG/ML SYR IM ONE (17:51)
[2024-02-11] MEDS ORDERED: lisinopriL 5 MG TAB PO SCH (21:00)
== END 2024-02-11 18:09 | disposition home or self-care (01) | DRG 392 ==
LOC: ER 11:34 → ERHOLD 17:43 → 2ND 19:41 → OBSVTOIN 02-11 12:41
PROVIDERS: ADMIT Hospitalist; ATTEND Hospitalist
DX: K57.32 Diverticulitis of large intestine without perforation or abscess without bleeding (principal); I10 Essential (primary) hypertension; E66.9 Obesity, unspecified; G89.4 Chronic pain syndrome; K74.60 Unspecified cirrhosis of liver; D69.6 Thrombocytopenia, unspecified; D73.2 Chronic congestive splenomegaly; E11.9 Type 2 diabetes mellitus without complications; E86.0 Dehydration; J44.9 Chronic obstructive pulmonary disease, unspecified; I25.10 Atherosclerotic heart disease of native coronary artery without angina pectoris; R82.71 Bacteriuria; Z23 Encounter for immunization; Z88.0 Allergy status to penicillin; Z88.5 Allergy status to narcotic agent; Z11.52 Encounter for screening for COVID-19; Z68.33 Body mass index [BMI] 33.0-33.9, adult; Z90.49 Acquired absence of other specified parts of digestive tract; Z86.73 Personal history of transient ischemic attack (TIA), and cerebral infarction without residual deficits; Z79.899 Other long term (current) drug therapy; Z90.710 Acquired absence of both cervix and uterus
CPT/HCPCS: 36415; 70450; 71045; 74177; 80048; 80053; 80061; 80076; 81001; 82947; 83036; 83690; 83735; 83880; 84100; 84484; 85025; 85610; 87086; 87088; 87811; 90471; 90732; 93005; 94640; 96361; 96374; 96375; 97116; 97161; 99285; G0378; J2270; J2405; J2470; J2550; J3010; J7030; J7605; J7644; Q9967

== ENCOUNTER 2024-08-28 11:54 | Emergency (ER) | payer OTHER ==
--- OUTSIDE RECORDS SUMMARY | 2024-08-28 12:20 | XMS REPORT | Continuity of Care Document ---
Author Name Unknown Address [address] [facility]. [address] [place] [address] Organization [facility] Address [address] 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 Role Phone Sofiya Collins Primary Care Physician [phone] NATALI KEYSHA Keith Attending Clinician Unavailable Perez Hollins MD Attending Clinician [phone] PEREZ HOLLINS Attending Clinician Unavailabl e PEREZ HOLLINS Attending Clinician Unavailabl e Doctor Unassigned, [place] Attending Clinician U AD Snow Attending Clinician Unavailable Dov David Attending Clinician [phone] DOV FLEMING Attending Clinician Unavailable BENJAMÍN TAYLOR Attending Clinician Unavailable Benjamín Taylor MD Attending Clinician [phone] Lab, Ang - Db Attending Clinician Unavailable José NIX, Sendcalvin K.H. Attending Clinician + [phone] MELIA PHILIPPE K.HGuillaume Attending Clinician Unavailmatthew James RN, Mihir Grant Attending Clinician Unavail able Leonarda Nava DO Attending Clinician [phone] Carlitos Uribe MD Attending Clinician [phone] CARLITOS URIBE Attending Clinician Unavailable AD ESPARZA Admitting Clinician Unavailable BENJAMÍN TAYLOR Admitting Clinician Unavailable MELIA PHILIPPE Admitting Clinician Unavailmatthew Uribe MD, Carlitos Admitting Clinician CARLITOS URIBE Admitting Clinician Unavailable Payers Payer Name Policy Type Policy Number Effective Date Expirati on Date Source [employer] [id number] 2024 00:00:00 [employer] MED[employer]ARE OUT OF NETWORK [id number] 2021 00:00:00 2022 00:00:00 Problems Condition Name Condition Details Condition Category Status Onset Date Resolution Date Last Treatment Date Treating Clinician Comments Source Pneumonia due to COVID-19 virus Pneumonia due to COVID-19 virus Disease Active 2 00:00: 00 [facility] Obesity (BMI 30-39.9) Obesity (BMI 30-39.9) Disease Active 10-26 00:00: 00 [facility] Allergies, Adverse Reactions, Alerts Allergy Name Allergy Type Status Severity Reaction(s) Onset Date Inactive Date Treating Clinician Comments Source penicili n (Not Checked) Propensi ty to adverse reaction to drug Active 1-15 00:00: [address] [facility] TRAMADOL DRUG INGREDI Active ITCHING 4 00:00: 00 [facility] Tramadol Propensi ty to adverse reaction s Active Itching 08-10 00:00: 00 [facility] Penicill ins - CLASS Propensi ty to adverse reaction to drug Active 2021-04 2 00:00: [address] [facility] Penicill ins Propensi ty to adverse reaction to drug Inactiv e 07-25 00:00: [address] [facility] Propoxyp hene N-Acetam inophen Propensi ty to adverse reaction s Active Nausea and/or Vomiting 12-17 00:00: 00 [facility] Penicill ins Propensi ty to adverse reaction s Active Rash 12-17 00:00: 00 [facility] Ketorola c Propensi ty to adverse reaction s Active Itching 12-17 00:00: 00 [facility] PROPOXYP HENE N-ACETAM INOPHEN DRUG Active N/V 12-17 00:00: 00 [facility] PENICILL INS Drug Class Active Rash 12-17 00:00: 00 [facility] KETOROLA C DRUG INGREDI Active ITCHING 12-17 00:00: 00 [facility] Penicill ins Propensi ty to adverse reaction s Active Rash 12-17 00:00: 00 [facility] Social History Social Habit Start Date Stop Date Quantity Comments Source [facility] to SARS-CoV-2 (event) 2022-08-16 00:00:00 2022-08-26 15:32:00 Not sure [facility] Alcohol intake 2022-08-26 00:00:00 2022-08-26 00:00:00 Current non-drinker of alcohol (finding) [facility] History of Social function 2022-04-03 00:00:00 2022-04-03 00:00:00 [facility] Tobacco use and exposure 2022-04-03 00:00:00 2022-04-03 00:00:00 Smokeless tobacco non-user [facility] Sex Ass[birth year] At 1950 00:00:00 1950 00:00:00 [facility] Smoking Status Start Date Stop Date Source Never smoked tobacco [facility] Medications Ordered Medication Name Filled Medication Name Start Date Stop Date Current Medication? Ordering Clinician Indication Dosage Frequency Signature (SIG) Comments Components Source promethazin e 50 mg tablet 08-04 00:00: [address] Rajni Michelet Tresiba FlexTouch U-200 insulin 200 unit/mL (3 mL) subcutaneou s pen 08-04 00:00: 00 Yes (3 mL) Lane [facility] losartan 50 mg tablet 08-04 00:00: [address] [facility] pantoprazol e 40 mg tablet,mellisa yed release 08-04 00:00: [address] [facility] montelukast 10 mg tablet 08-04 00:00: [address] [facility] metoclopram chrissy 10 mg tablet -18 00:00: [address] [facility] trazodone 50 mg tablet -18 00:00: [address] [facility] quetiapine 400 mg tablet -18 00:00: [address] [facility] Tresiba FlexTouch U-200 insulin 200 unit/mL (3 mL) subcutaneou s pen -14 00:00: 00 Yes (3 mL) Lane [facility] estradiol 1 mg tablet -14 00:00: [address] [facility] pantoprazol e 40 mg tablet,mellisa yed release -14 00:00: [address] [facility] quetiapine 400 mg tablet -14 00:00: [address] [facility] promethazin e 50 mg tablet -15 00:00: [address] [facility] clonidine HCl 0.2 mg tablet -15 00:00: [address] [facility] Combivent Respimat 20 mcg-100 mcg/actuati on solution for inhalation -15 00:00: 00 Yes mcg/act uation Lane [facility] Tresiba FlexTouch U-200 insulin 200 unit/mL (3 mL) subcutaneou s pen -15 00:00: 00 Yes (3 mL) Lane [facility] losartan 50 mg tablet 1-15 00:00: [address] [facility] estradiol 1 mg tablet -15 00:00: [address] [facility] pantoprazol e 40 mg tablet,mellisa yed release 1-15 00:00: [address] [facility] montelukast 10 mg tablet -15 00:00: [address] [facility] Januvia 100 mg tablet -15 00:00: [address] [facility] trazodone 50 mg tablet 1-15 00:00: [address] [facility] quetiapine 400 mg tablet 05-03 00:00: [address] [facility] duloxetine 30 mg capsule,del ayed release 05-03 00:00: [address] [facility] promethazin e 50 mg tablet 2023-04 00:00: [address] [facility] clonidine HCl 0.2 mg tablet 2023-04 00:00: [address] [facility] Tresiba FlexTouch U-200 insulin 200 unit/mL (3 mL) subcutaneou s pen 2023-04 00:00: 00 Yes (3 mL) Lane [facility] estradiol 1 mg tablet 2023-04 00:00: [address] [facility] pantoprazol e 40 mg tablet,mellisa yed release 2023-04 00:00: [address] [facility] quetiapine 400 mg tablet 2023-04 00:00: [address] [facility] nystatin 100,000 unit/mL oral suspension 2023-04 008 00:00: 00 Yes 5unit/m L Lane [facility] Tresiba FlexTouch U-200 insulin 200 unit/mL (3 mL) subcutaneou s pen 2023-04 0 00:00: 00 Yes (3 mL) Lane [facility] Januvia 100 mg tablet 2023-04 0- 00:00: [address] [facility] estradiol 1 mg tablet 01-11 00:00: [address] [facility] pantoprazol e 40 mg tablet,mellisa yed release 01-11 00:00: [address] [facility] montelukast 10 mg tablet 01-11 00:00: [address] [facility] quetiapine 400 mg tablet 01-11 00:00: [address] [facility] losartan 50 mg tablet - 00:00: [address] aTfoya promethazin e 50 mg tablet 12-06 00:00: [address] [facility] clonidine HCl 0.2 mg tablet 12-06 00:00: [address] [facility] Tresiba FlexTouch U-200 insulin 200 unit/mL (3 mL) subcutaneou s pen 12-06 00:00: 00 Yes (3 [...] FlexTouch U-200 insulin 200 unit/mL (3 mL) [facility] 08-11 00:00: 00 [...] 2022-04 00:00: [address] [facility] APPLY 1 PATCH TO THE AFFECTED [...] 1 dose, On Wed02/22/23 at 2030, Routine [facility] proMETHazin e (PHENERGAN) tablet 25 mg 2022-04 01:00: 00 02-23 01:13 :00 No 25mg 25 mg, Oral, ONCE, 1 dose, On Wed02/22/23 at 1900, HELENE [facility] cefTRIAXone (ROCEPHIN) 1,000 mg in NaCl 0.9% (NS) 100 mL MINI-BAG 2022-04 00:30: 00 02-23 01:14 :00 No 1000mg 1,000 mg, IV Piggyback, ONCE, 1 dose, On Wed02/22/23 at 1830, Administer over 30 Minutes, 100 mL
Reas on for Anti-Infec tive: Documented Infection< br>Documen radha Infection Site: Respirator y
Durat ion of Therapy: 7 days [facility] albuterol (PROVENTIL) 2.5 mg /3 mL (0.083 %) nebulizer solution 2.5 mg 2022-04 00:15: 00 02-23 00:21 :00 No 2.5mg 2.5 mg, Inhalation , ONCE, 1 dose, On Wed02/22/23 at 1815, STAT [facility] benzonatate (TESSALON PERLES) capsule 100 mg 2022-04 23:45: 00 02-22 23:25 :00 No 100mg 100 mg, Oral, ONCE, 1 dose, On Wed02/22/23 at 1745, Routine [facility] methylpredn isolone sod succ (SOLU-MEDRO L) injection 125 mg 2022-04 23:00: 00 02-22 23:25 :00 No 125mg 125 mg, Intravenou s, ONCE, 1 dose, On Wed02/22/23 at 1700, 2 mL [facility] albuterol (PROVENTIL) 2.5 mg /3 mL (0.083 %) nebulizer solution 2.5 mg 2022-04 22:30: 00 02-22 23:25 :00 No 2.5mg 2.5 mg, Inhalation , ONCE, 1 dose, On Wed02/22/23 at 1630, STAT [facility] TAKE BY MOUTH DIRECTED IN PACKAGE. 2022-04 00:00: 00 Yes Laneclement Tafoya TAKE ONE (1) CAPSULE(S) BY MOUTH THREE TIMES A DAY NEEDED FOR COUGH. 2022-04 00:00: [address] Rajni Michelet TAKE ONE (1) CAPSULE(S) BY MOUTH EVERY TWELVE HOURS. 2022-04 00:00: [address] [facility] cefdinir 300 mg capsule 2022-04 00:00: 00 Yes [id number] 300mg Take 1 capsule by mouth every 12 (twelve) hours. [facility] methylPREDN ISolone 4 mg tablets 2022-04 00:00: 00 Yes [id number] Take by mouth SEE-INSTRU CTIONS. follow package directions [facility] benzonatate 100 mg capsule 2022-04 00:00: 00 Yes [id number] 100mg Take 1 capsule by mouth 3 (three) times daily as needed for Cough. [facility] INHALE 2 PUFFS BY MOUTH DAILY 2022-04 00:00: [address] Rajni Michelet MONTELUKAST SODIUM 10 MG TABS 2022-04 00:00: [...] 0.083% NEBU 2022-04 00:00: [address] Rajni Tafoya APPLY SPARINGLY TO AFFECTED AREA(S) TWICE DAILY 2022-04 00:00: 00 08-25 00:00 :[address] [facility] TAKE 1 TABLET DAILY. 2022-04 00:00: 00 08-25 00:00 :[address] [facility] TAKE 1 CAPSULE BY MOUTH ONCE DAILY 2022-04 00:00: 00 08-25 00:00 :[address] 1 TABLET ON THE TONGUE AND [...] 2022-04 00:00: 00 08-25 00:00 :[id number] Tafoya SWISH AND SWALLOW 5ML 4 TIMES DAILY. 2022-04 00:00: 00 08-25 00:00 :[id number] [facility] TAKE 1 TABLET DAILY. 2022-04 0 00:00: 00 08-25 00:00 :[address] [facility] TAKE 1 TABLET TWICE DAILY. 2022-04 0 00:00: 00 08-25 00:00 :[address] [facility] TAKE 1 TABLET TWICE DAILY. 2022-04 00:00: 00 08-25 00:00 :[address] [facility] OZEMPIC 2 MG/3ML SOPN 2022-04 018 00:00: [address] [facility] APPLY 2-3 TIMES DAILY TO AFFECTED AREA(S). 2022-04 00:00: 00 08-25 00:00 :[id number] [facility] TAKE 1 TABLET BY MOUTH TWICE A DAY 2022-04 00:00: [address] [facility] APPLY 2-3 TIMES DAILY TO AFFECTED AREA(S). 12-29 00:00: 00 08-25 00:00 :[id number] [facility] SWISH AND SWALLOW 5ML 4 TIMES DAILY. 12-29 00:00: 00 08-25 00:00 :[id number] [facility] TAKE 10 ML BY MOUTH EVERY 4 TO 6 HOURS NEEDED FOR COUGH. 12-10 00:00: 00 08-25 00:00 :[id number] [facility] INJECT 80 UNITS DAILY 12-08 00:00: [address] [facility] CIPROFLOXAC IN HYDROCHLORI DE 500 MG TABS 12-08 00:00: [address] [facility] TAKE ONE (1) TABLET(S) BY MOUTH THREE TIMES A DAY FOR CHRONIC PAIN. 12-08 00:00: [address] [facility] TAKE 2 TABLETS AT BEDTIME. 12-08 00:00: 00 08-25 00:00 :[address] [facility] TAKE 1 TABLET BY MOUTH TWICE DAILY 12-01 00:00: [address] Urban Michelet PROMETHAZIN E HYDROCHLORI DE 50 MG TABS 8-14 00:00: [address] Rajni Tafoya TAKE 1 TABLET TWICE DAILY. 11-10 00:00: 00 08-25 00:00 :[address] Michelet TAKE 1 CAPSULE BY MOUTH ONCE DAILY 11-10 00:00: 00 08-25 00:00 :[address] Michelet TAKE 1 TABLET BY MOUTH TWICE DAILY 11-02 00:00: [address] Michelet INJECT 0.5 MG WEEKLY 10-16 00:00: 00 08-25 00:00 :[address] Michelet DULOXETINE HCL 30 MG CPEP 09-08 00:00: 00 Yes 30 Lanec[address] [facility] TAKE 1 TABLET TWICE DAILY. 09-08 00:00: 00 08-25 00:00 :[address] 1 TABLET ON THE TONGUE AND ALLOW TO DISSOLVE TWO TIMES DAILY. 09-08 00:00: 00 08-25 00:00 :00 No 50 Lanec[address] [facility] TAKE 1 TABLET DAILY. 09-08 00:00: 00 08-25 00:00 :[address] Taf[facility] INJECT 0.5 MG WEEKLY 09-08 00:00: 00 08-25 00:00 :[address] Taf[facility] INHALE 2 PUFFS BY MOUTH DAILY 09-08 00:00: 00 08-25 00:00 :[id number]ni Tafoya TAKE 1 CAPSULE TWICE DAILY. 09-08 00:00: 00 08-25 00:00 :[address] Michelet APPLY 2-3 TIMES DAILY TO AFFECTED AREA(S). 09-08 00:00: 00 08-25 00:00 :[id number] Rajni Michelet TAKE 1 TABLET DAILY. 09-08 00:00: 00 08-25 00:00 :[address]ni Michelet TAKE 1 TABLET DAILY. 09-08 00:00: 00 08-25 00:00 :[address] Michelet TAKE 1 CAPSULE WEEKLY. 09-08 00:00: 00 08-25 00:00 :[id number] [facility] APPLY SPARINGLY TO AFFECTED AREA(S) TWICE DAILY 09-08 00:00: 00 08-25 00:00 :[address] [facility] TAKE 1 TABLET DAILY. 09-08 00:00: 00 08-25 00:00 :[address] [facility] TAKE 1 TABLET DAILY. 09-08 00:00: 00 08-25 00:00 :[address] [facility] TAKE ONE (1) TABLET(S) BY MOUTH TWICE A DAY. 08-31 00:00: 00 Yes Lnae [facility] QUETIAPINE FUMARATE 400 MG TABS 08-28 [...] 1 dose, On Wed08/10/22 at 1615, STAT [facility] ondansetron (ZOFRAN-ODT ) disintegrat ing tablet 4 mg 08-10 21:15: 00 08-10 20:09 :00 No 4mg 4 mg, Oral, ONCE, 1 dose, On Wed08/10/22 at 1615, HELENE [facility] levoFLOXaci n (LEVAQUIN) tablet 500 mg 08-10 18:45: 00 08-10 18:54 :00 No 500mg 500 mg, Oral, ONCE, 1 dose, On Wed08/10/22 at 1345, HELENE
Re ason for Anti-Infec tive: Empiric Therapy for Suspected Infection< br>Empiric Therapy Site: Urine
D uration of therapy: 72 hours [facility] iopamidol (ISOVUE 370-500 mL) injection 100 mL 08-10 18:15: 00 08-10 17:18 :00 No [id number] 100mL 100 mL, Intravenou s, ONCE, 1 dose, On Wed08/10/22 at 1315, Routine [facility] morpHINE (4 mg/mL) injection 4 mg 08-10 16:00: 00 08-10 15:49 :00 No 4mg 4 mg, Slow IV Push, ONCE, 1 dose, On Wed08/10/22 at 1100, STAT [facility] NaCl 0.9% (NS) bolus infusion 1,000 mL 08-10 15:45: 00 08-10 18:20 :00 No 1000mL at 999 mL/hr, 1,000 mL, IV Piggyback, ONCE, 1 dose, On Wed08/10/22 at 1045, STAT [facility] ondansetron (ZOFRAN (PF)) injection 4 mg 08-10 15:00: 00 08-10 15:48 :00 No 4mg 4 mg, Slow IV Push, ONCE, 1 dose, On Wed08/10/22 at 1000, HELENE [facility] LEVOFLOXACI N 500 MG TABS 08-10 00:00: [address] [facility] ONDANSETRON ODT 4 MG TBDP 08-10 00:00: [address] [facility] TRESIBA FLEXTOUCH 200 UNIT/ML SOPN 08-10 00:00: [address] [facility] ondansetron 4 mg disintegrat ing tablet 08-10 00:00: 00 Yes [id number] 4mg Take 1 tablet by mouth every 8 (eight) hours as needed for Nausea and Vomiting (N/V). [facility] TAKE 1 TABLET BY MOUTH DAILY 08-10 00:00: 00 08-25 00:00 :[address] [facility] levoFLOXaci n (LEVAQUIN) 500 mg tablet 08-10 00:00: 00 08-14 04:59 :00 No [id number] 500mg Take 1 tablet by mouth in the morning for 3 days. [facility] HYDROcodone -acetaminop hen (NORCO) 5-325 mg tablet 08-05 00:00: 00 08-13 04:59 :00 No [id number] 1{tbl} Take 1 tablet by mouth every 6 (six) hours as needed for Pain (scale 4-6) for up to 7 days. Indication s: acute pain [facility] TAKE ONE (1) TABLET(S) BY MOUTH TWICE A DAY. 08-03 00:00: [address] [facility] tc 99m-tetrofo smin (MYOVIEW) injection 42 millicurie 07-09 16:15: 00 07-09 16:10 :00 No [id number] 42mCi 42 millicurie , Intravenou s, ONCE, 1 dose, On Yulisa 07/09/22 at 1115, Routine [facility] regadenoson (LEXISCAN) injection 0.4 mg 07-09 15:15: 00 07-09 15:35 :00 No [id number] .4mg 0.4 mg, IV Push, ONCE, 1 dose, On Yulisa 07/09/22 at 1015, Routine
english faculty member approving Restricted medication : MELIA PHILIPPE [facility] tc 99m-tetrofo smin (MYOVIEW) injection 15.7 millicurie 07-09 13:45: 00 07-09 13:39 :00 No [id number] 15.7mCi 15.7 millicurie , Intravenou s, ONCE, 1 dose, On Yulisa 07/09/22 at 0845, Routine [facility] TAKE ONE (1) TABLET(S) BY MOUTH [...] 07-04 00:00: 00 08-25 00:00 :[id number] [facility] TAKE 2 TABLETS AT [...] 07-04 00:00: 00 08-25 00:00 :[id number] [facility] TAKE 1 TABLET TWICE DAILY. 07-04 00:00: 00 08-25 00:00 :[address] [facility] INHALE 2 PUFFS BY MOUTH DAILY 07-04 00:00: 00 08-25 00:00 :[id number] [facility] TAKE 1 TABLET DAILY. 07-04 [...] [facility] TAKE 1 TABLET BY MOUTH DAILY - 00:00: 00 08-25 00:00 :[address] [facility] TAKE 1 CAPSULE TWICE DAILY. 05-26 00:00: 00 08-25 00:00 :[address] [facility] TAKE 1 TABLET DAILY. 2 00:00: 00 08-25 00:00 :00 No 75 [...] 05-26 00:00: 00 08-25 00:00 :[id number] [facility] TAKE 1 CAPSULE WEEKLY. 05-26 00:00: 00 08-25 00:00 :[id number] [facility] TAKE 1 CAPSULE AT [...] mg/3 mL) injection 05-20 12:56: 04 Yes [id number] .6mg inject 0.6 mg under the skin. [facility] ALPRAZolam 2 mg tablet 04-24 14:34: 59 Yes 2mg Take 2 mg by mouth 3 (three) times daily as needed for Sleep. [facility] INSULIN DEGLUDEC (TRESIBA FLEXTOUCH U-100 SC) 04-24 14:34: 59 Yes 80U inject 80 Units under the skin every morning. [facility] pantoprazol e 20 mg EC tablet 04-24 14:34: 59 Yes 20mg Take 20 mg by mouth daily. [facility] cloNIDine 0.2 mg tablet 04-24 14:34: 59 Yes .2mg Take 0.2 mg by mouth 3 (three) times daily. [facility] metoprolol succinate XL 50 mg 24 hr tablet 04-24 14:34: 59 Yes 50mg Take 50 mg by mouth 2 (two) times daily. [facility] QUEtiapine 400 mg tablet 04-24 14:34: 59 Yes 800mg Take 800 mg by mouth at bedtime. [facility] liraglutide (VICTOZA 3-PEPE) 0.6 mg/0.1 mL (18 mg/3 mL) injection 04-24 14:34: 59 Yes [id number] .6mg inject 0.6 mg under the skin. [facility] TAKE 1 TABLET BY MOUTH IN THE MORNING AND IN THE EVENING WITH MEALS 04-20 00:00: [address] [facility] diclofenac 75 mg EC tablet 04-20 00:00: 00 06-23 00:00 :00 No 75mg Take 1 tablet by mouth in the morning and 1 tablet in the evening. Take with meals. [facility] TAKE 1 CAPSULE BY MOUTH IN THE MORNING FOR 30 DAYS. 2021-04 00:00: [address] [facility] celecoxib (CELEBREX) 200 mg capsule 2021-04 00:00: 00 05-18 05:59 :00 No [id number] 200mg Take 1 capsule by mouth in the morning for 30 days. [facility] NABUMETONE 750MG 2021-04 00:00: [address] [facility] nabumetone (RELAFEN) 750 mg tablet 2021-04 00:00: 00 04-17 00:00 :00 No [id number] 750mg Take 1 tablet by mouth in the morning for 30 days. [facility] Dose Unknown 2021-04 00:00: [address] [...] [address] [facility] DULOXETINE HCL 30MG DR 2021-04 00:00: [address] [facility] Dose Unknown 2021-04 00:00: [address] [facility] Dose Unknown 2021-04 00:00: [address] [facility] DICYCLOMINE 20MG TAB 2021-04 2- 00:00: [address] [facility] Dose Unknown 2021-04- 00:00: [address] [facility] Dose Unknown 2021-04 00:00: [address] [facility] Dose Unknown 2021-04 00:00: [address] [facility] Dose Unknown 2021-04 2 00:00: 00 08-25 00:00 :[address] [facility] diclofenac 75 mg EC tablet 2021-04 00:00: 00 04-17 00:00 :00 No [id number] 75mg Take 1 tablet by mouth in the morning and 1 tablet in the evening. Take with meals. Do all this for 30 days. [facility] CLONIDINE 0.2MG TAB 2021-04 00:00: [...] Unknown 2021-04 00:00: [address] [facility] TRAMADOL HCL 50MG TAB 2021-04 2 00:00: [address] [facility] TAKE ONE (1) CAPSULE BY MOUTH TWICE A DAY NEEDED. 2021-04 00:00: [address] Michelet Dose Unknown 2021-04 00:00: [address] Michelet Dose Unknown 2021-04 00:00: [address] Raj[address] Tafoya TAKE TWO (2) TABLET(S) BY MOUTH EVERY SIX HOURS NEEDED FOR DIZZINESS. 2021-04 00:00: [address] Michelet Dose Unknown 2021-04 00:00: [address] Rajni Taf[facility] INHALE TWO (2) PUFF(S) BY MOUTH DAILY. 2021-04 00:00: [address] F Michelet Dose Unknown 2021-04 00:00: [address] Michelet Dose Unknown 2021-04 00:00: [address] Rajni Tafoya TAKE ONE (1) CAPSULE(S) BY MOUTH TWICE A DAY. 2021-04 00:00: [address] Rajni Tafoya TAKE 1 TABLET BY MOUTH EVERY DAY IN THE MORNING 2021-04 00:00: [address] F Michelet Dose Unknown 2021-04 00:00: [address] F Michelet Dose Unknown 2021-04 00:00: [address] F Michelet Dose Unknown 2021-04 00:00: [address] F [facility] Dose Unknown 2021-04 00:00: [address] F Michelet Dose Unknown 2021-04 00:00: [address] F Michelet Dose Unknown 2021-04 00:00: [address] F Michelet TAKE 1 TABLET TWICE DAILY. 2021-04 00:00: 00 08-25 00:00 :[address] F Michelet TAKE 1 TABLET 3 TIMES DAILY. 2021-04 00:00: 00 08-25 00:00 :[address] F Michelet APPLY 2-3 TIMES DAILY TO AFFECTED AREA(S). 2021-04 00:00: 00 08-25 00:00 :[address] F Michelet TAKE 1 TABLET BY MOUTH DAILY 2021-04 2- 00:00: 00 08-25 00:00 :[address] [facility] TAKE 1 TABLET 4 TIMES DAILY. 2021-04 2- 00:00: 00 08-25 00:00 :[address] [facility] TAKE 1 TABLET EVERY 8 HOURS WITH FOOD NEEDED. 2021-04 2- 00:00: 00 08-25 00:00 :[address] [facility] TAKE 1 TABLET DAILY. 2021-04 2 00:00: 00 08-25 00:00 :[address] [facility] Dose Unknown 2021-04 2 00:00: 00 08-25 00:00 :[address] Rajni Tafoya Dose Unknown 2021-04 2 00:00: 00 08-25 00:00 :[address] Rajni Michelet TRESIBA FLEXTOUCH 200U/ML PEN 2021-04 2 00:00: 00 No TERBINAFINE HCL 250MG TAB 2021-04 00:00: 00 No TAKE 1 TABLET BY MOUTH EVERY MORNING 2021-04 00:00: 00 No TRESIBA FLEXTOUCH 200U/ML PEN 2021-04 00:00: [address] Rajni Tafoya Dose Unknown 2021-04 2 00:00: [address] Rajni Michelet IBUPROFEN 800MG 2021-04 2 00:00: [address] Rajni Tafoya Dose Unknown 2021-04 2 00:00: [address] Rajni Michelet TAKE 1 TABLET DAILY. 2021-04 2 00:00: 00 08-25 00:00 :[address] Rajni Tafoya NYSTATIN [id number] OIN 2021-04 2- 00:00: 00 No Dose Unknown 2021-04 2- 00:00: [address] Rajni Tafoya Dose Unknown 2021-04 2- 00:00: 00 No Dose Unknown 2021-04 2 00:00: [address] Rajni Michelet GABAPENTIN 400MG CAP 2021-04 1-30 00:00: 00 No GABAPENTIN 400MG CAP 2021-04 1-30 00:00: [address] Rajni Michelet APPLY 4 GRAMS TOPICALLY 4 TIMES A DAY 2021-04 00:00: [address] [facility] TRESIBA FLEX 200U/ML PEN 2021-04 00:00: [address] [facility] TAKE 1 TABLET BY MOUTH EVERY MORNING 2021-04 00:00: 00 08-25 00:00 :[address] [facility] TAKE 1 TABLET BY MOUTH EVERY 8 HOURS 2021-04 00:00: [address] [facility] TAKE 1 TABLET DAILY. 2021-04 00:00: 00 08-25 00:00 :[address] [facility] INJECT 80 UNITS DAILY 2021-04 00:00: 00 08-25 00:00 :[address] [facility] TAKE 1 TABLET AT BEDTIME. 2021-04 00:00: 00 No TAKE 1 TABLET AT BEDTIME. 2021-04 00:00: [address] [facility] INJECT 1.8 MG UNDER THE SKIN NIGHTLY. 2021-04 00:00: 00 No INJECT 1.8 MG UNDER THE SKIN NIGHTLY. 2021-04 00:00: 00 No INJECT 1.2 MG SUBCUTANEOU SLY EVERY DAY 2021-04 00:00: [address] [facility] COMBIVENT RESPIMAT INH 2021-04 00:00: [address] [facility] USE 1 VIAL IN NEBULIZER EVERY 6 HOURS NEEDED. 2021-04 00:00: [address] [facility] QUETIAPINE 400MG 2021-04 00:00: [address] [facility] TAKE 1 TABLET BY MOUTH EVERY 6 HOURS WITH FOOD 2021-04 00:00: [address] [facility] TAKE 1 CAPSULE WEEKLY. 2021-04 00:00: 00 08-25 00:00 :[id number] [facility] TAKE 2 TABLETS AT BEDTIME. 2021-04 [...] Yes Lane [facility] APAP/CODEIN E #3 2021-04 0-22 00:00: [address] [facility] APAP/CODEIN E [...] [facility] PANTOPRAZOL E SODIUM 40MG TAB 2021-0 9-28 00:00: 00 No PANTOPRAZOL E SODIUM 40MG TAB 2021-0 9-28 00:00: 00 No PANTOPRAZOL E SODIUM 40MG TAB 2021-0 9-28 00:00: 00 No PANTOPRAZOL E SODIUM 40MG [...] VICTOZA 18MG/3ML PEN 12-04 00:00: [id number] [facility] GABAPENTIN 400MG 12-04 00:00: [id number] [facility] MONTELUKAST SODIUM 10MG 12-04 00:00: [id number] [place] USE 1 VIAL IN NEBULIZER EVERY 6 HOURS NEEDED. 12-03 00:00: 00 No USE 1 VIAL IN NEBULIZER EVERY 6 HOURS NEEDED. 12-03 00:00: 00 No USE 1 VIAL IN NEBULIZER EVERY 6 HOURS NEEDED. 12-03 00:00: 00 No [id number] USE 1 VIAL IN NEBULIZER EVERY 6 HOURS NEEDED. 12-03 00:00: 00 No [id number] USE 1 VIAL IN NEBULIZER EVERY 6 [...] Unknown 11-14 00:00: [address] [place] INHALE TWO (2) PUFF(S) BY MOUTH DAILY. 10-29 00:00: [address] [facility] TAKE 1 TABLET BY MOUTH TWICE A DAY 10-29 00:00: [address] [place] INJECT UNDER THE SKIN THREE TIMES A DAY DIRECTED PER SLIDING SCALE. MAX DOSE 25 UNITS. 10-29 00:00: 00 Yes [address] [facility] &lt 10-29 00:00: [address] [facility] estradiol 1 mg tablet 10-29 00:00: 00 [...] 25 UNITS. 10-29 00:00: 00 No &lt 0 10-29 00:00: 00 No 40 Dose Unknown 10-29 00:00: [address] [facility] Dose Unknown 10-29 00:00: [address] [facility] estradiol 1 mg tablet 10-09 00:00: [address] [facility] Dose Unknown 10-09 00:00: [address] [facility] &lt 2021-0 10-09 00:00: [address] [facility] &lt 2021-0 10-09 00:00: [address] [facility] quetiapine 400 mg tablet 10-09 00:00: 00 No 2mg estradiol 1 mg tablet 10-09 00:00: 00 No 1mg &lt 2021-0 10-09 00:00: 00 No &lt 2022-0 10-09 00:00: 00 No Dose Unknown 2-0 10-09 00:00: 00 No estradiol 1 mg tablet 2-0 10-09 00:00: [...] No &lt 2022-0 10-09 00:00: 00 No &lt 2022-0 09-23 00:00: 00 Yes Lnae [facility] &lt 2022-0 09-23 00:00: 00 No &lt 2022-0 09-23 00:00: 00 No &lt 2022-0 09-23 00:00: 00 No &lt 2022-0 09-23 00:00: 00 No &lt 2022-0 09-23 00:00: 00 No TAKE 1 TABLET DAILY. 2021-0 09-02 00:00: [address] [place] [facility] levofloxaci n 500 mg tablet 0 09-02 00:00: [address] [facility] ketorolac 10 mg tablet 0 09-02 00:00: [address] [facility] doxycycline monohydrate 100 mg capsule 2021-0 09-02 00:00: [address] [facility] levofloxaci n 500 mg tablet 0 5-17 00:00: 00 No 1mg terbinafine HCl 250 mg tablet 2021-0 -17 00:00: 00 No mg ketorolac 10 mg tablet 2021-0 -17 00:00: 00 No 1mg doxycycline monohydrate 100 mg capsule 2021-0 -17 00:00: 00 No 1mg levofloxaci n 500 mg tablet 2021-0 -17 00:00: 00 No 1mg terbinafine HCl 250 mg tablet 2021-0 -17 00:00: 00 No mg ketorolac 10 mg tablet 2021-0 -17 00:00: 00 No 1mg doxycycline monohydrate 100 mg capsule 2021-0 -17 00:00: 00 No 1mg levofloxaci n 500 mg tablet 2021-0 - 00:00: 00 No 1mg terbinafine HCl 250 mg tablet 2021-0 09-02 00:00: 00 No mg ketorolac 10 mg tablet 2021-0 -17 00:00: 00 No 1mg doxycycline monohydrate 100 mg capsule 2021-0 - 00:00: 00 No 1mg levofloxaci n 500 mg tablet 2021-0 09-02 00:00: 00 No 1mg terbinafine HCl 250 mg tablet 2021-0 -17 00:00: 00 No mg ketorolac 10 mg tablet 2021-0 -17 00:00: 00 No 1mg doxycycline monohydrate 100 mg capsule 2021-0 -17 00:00: 00 No 1mg levofloxaci n 500 mg tablet 2021-0 -17 00:00: 00 No 1mg terbinafine HCl 250 mg tablet 2021-0 -17 00:00: 00 No mg ketorolac 10 mg tablet 2021-0 -17 00:00: 00 No 1mg doxycycline monohydrate 100 mg capsule 2021-0 -17 00:00: 00 No 1mg levofloxaci n 500 mg tablet 2021-0 - 00:00: [address] [facility] ketorolac 10 mg tablet 2-0 5- 00:00: [address] [facility] doxycycline monohydrate 100 mg capsule 2021-0 5- 00:00: [address] [facility] levofloxaci n 500 mg tablet 2-0 5- [...] capsule 2-0 5- 00:00: 00 No 1mg Dose Unknown 2-0 4-27 00:00: [address] [facility] Dose Unknown 2021-0 4-27 00:00: 00 No Dose Unknown 2-0 4-27 00:00: 00 No Dose Unknown 2-0 4-27 00:00: 00 No Dose Unknown 2-0 4-27 00:00: 00 No Dose Unknown 2-0 4-27 00:00: 00 No promethazin e 25 mg tablet 2-0 4-26 00:00: [address] [facility] Dose Unknown 2-0 4- 00:00: [address] [facility] Dose Unknown 2-0 4- 00:00: [address] [facility] doxycycline monohydrate 100 mg capsule 2021-0 4- 00:00: [address] [facility] levofloxaci n 500 mg tablet 0 08-12 00:00: 00 No 1mg promethazin e 25 mg tablet 0 08-12 00:00: 00 No 1mg Dose Unknown 0 08-12 00:00: 00 No doxycycline monohydrate 100 mg capsule 0 08-12 00:00: 00 No 1mg levofloxaci n 500 mg tablet 0 08-12 00:00: 00 No 1mg promethazin e [...] No 1mg promethazin e 25 mg tablet 0 08-12 00:00: 00 No 1mg Dose Unknown 0 08-12 00:00: 00 No doxycycline monohydrate 100 mg capsule 0 08-12 00:00: 00 No 1mg indomethaci n ER 75 mg capsule,ext ended release 2021-0 08-09 00:00: [address] [facility] indomethaci n ER 75 mg capsule,ext ended release 2021-0 08-09 00:00: 00 No 1mg indomethaci n ER 75 mg capsule,ext ended release 2021-0 08-09 00:00: 00 No 1mg indomethaci n ER 75 mg capsule,ext ended release 2021-0 4-23 00:00: 00 No 1mg indomethaci n ER 75 mg capsule,ext ended release 2021-0 -23 00:00: 00 No 1mg indomethaci n ER 75 mg capsule,ext ended release 2021-0 423 00:00: 00 No 1mg Dose Unknown 2021-0 4-19 00:00: [address] [facility] ondansetron 4 mg disintegrat ing tablet 2021-0 4-19 00:00: [address] [facility] Dose Unknown 0 4-19 00:00: 00 Yes Laneclement T[facility] Dose Unknown 0 419 00:00: [address] [facility] Dose Unknown 0 19 00:00: [address] Rajni Taf[facility] Dose Unknown 0 419 00:00: 00 No ondansetron 4 mg disintegrat ing tablet 2021-0 4-19 00:00: 00 No 1mg Dose Unknown 2021-0 4-19 00:00: 00 No Dose Unknown 2021-0 419 00:00: 00 No Dose Unknown 2021-0 4-19 00:00: 00 No ondansetron 4 mg disintegrat ing tablet 2021-0 4-19 00:00: 00 No 1mg Dose Unknown 2021-0 4-19 00:00: 00 No Dose Unknown 0 419 00:00: 00 No Dose Unknown 2021-0 4-19 00:00: 00 No ondansetron 4 mg disintegrat ing tablet 2021-0 4-19 00:00: 00 No 1mg Dose Unknown 2021-0 4-19 00:00: 00 No Dose Unknown 2021-0 4-19 00:00: 00 No Dose Unknown 2021-0 4-19 00:00: 00 No ondansetron 4 mg disintegrat ing tablet 2-0 4-19 00:00: 00 No 1mg Dose Unknown 2021-0 4-19 00:00: 00 No Dose Unknown 2-0 4-19 00:00: 00 No Dose Unknown 2021-0 4-19 00:00: 00 No ondansetron 4 mg disintegrat ing tablet 2-0 4-19 00:00: 00 No 1mg Dose Unknown 2022-0 4-19 00:00: 00 No Dose Unknown 2022-0 4-19 00:00: 00 No Dose Unknown 2022-0 4-13 00:00: [address] [facility] Dose Unknown 2022-0 4-13 00:00: [address] [facility] Dose Unknown 2022-0 4-13 00:00: 00 No Dose Unknown 2022-0 4-13 00:00: 00 No Dose Unknown 2022-0 4-13 00:00: 00 No Dose Unknown 2022-0 4-13 00:00: 00 No Dose Unknown 2022-0 4-13 00:00: 00 No Dose Unknown 2022-0 4-13 00:00: 00 No Dose Unknown 2022-0 4-13 00:00: 00 No Dose Unknown 2022-0 4-13 00:00: 00 No Dose Unknown 2022-0 4-13 00:00: 00 No Dose Unknown 2022-0 4-13 00:00: 00 No Dose Unknown 2022-0 4-12 00:00: [address] [facility] Dose Unknown 2022-0 4-12 00:00: [address] [facility] Dose Unknown 2022-0 4-12 00:00: [address] [facility] Dose Unknown 2022-0 4-12 00:00: [address] [facility] quetiapine 400 mg tablet 2-0 4-12 00:00: [address] [facility] pantoprazol e 40 mg tablet,mellisa yed release 2-0 4-12 00:00: [address] [facility] Dose Unknown 2022-0 4-12 00:00: [address] [facility] Dose Unknown 2022-0 4-12 00:00: [address] [facility] Dose Unknown 2022-0 4-12 00:00: [address] [facility] Dose Unknown 2022-0 4-12 00:00: [address] [facility] Dose Unknown 2022-0 4-12 00:00: [address] Rajni [facility] Dose Unknown 2022-0 4-12 00:00: [address] [facility] Dose Unknown 2022-0 4-12 00:00: [address] [facility] TAKE 1 CAPSULE TWICE DAILY. 2022-0 4-12 00:00: [address] [facility] duloxetine 30 mg capsule,del ayed release 07-29 00:00: [address] [facility] Dose Unknown 07-29 00:00: [address] [facility] Dose Unknown 07-29 00:00: [address] [facility] Dose Unknown 07-29 00:00: [address] [facility] Dose Unknown 07-29 00:00: [address] [facility] Dose Unknown 07-29 00:00: [address] [facility] Dose Unknown 07-29 00:00: [address] [facility] Dose Unknown 07-29 00:00: [address] [facility] Dose Unknown 07-29 00:00: [address] [facility] Dose Unknown 07-29 00:00: [address] [facility] Dose Unknown 07-29 00:00: [address] [facility] Dose Unknown 07-29 00:00: 00 No Dose Unknown 07-29 00:00: 00 No Dose Unknown 07-29 00:00: 00 No Victoza 2-Pepe 0.6 mg/0.1 mL (18 mg/3 mL) subcutaneou s pen injector 07-29 00:00: 00 No (18 mg/3 mL) Tresiba FlexTouch U-200 insulin 200 unit/mL (3 mL) subcutaneou s pen 07-29 00:00: 00 No (3 mL) Novolog Flexpen U-100 Insulin aspart 100 unit/mL (3 mL) subcutaneou s 07-29 00:00: 00 No (3 mL) mupirocin 2 % topical ointment - 00:00: 00 No 1% montelukast 10 mg tablet -12 00:00: 00 No 1mg clonidine HCl 0.2 mg tablet -12 00:00: 00 No 1mg quetiapine 400 mg tablet -12 00:00: 00 No 2mg pantoprazol e 40 [...] 100 unit/mL (3 mL) subcutaneou s 2021-0 4-12 00:00: 00 No (3 mL) mupirocin 2 % topical ointment 2021-0 4-12 00:00: 00 No 1% montelukast 10 mg tablet 2021-0 4-12 00:00: 00 No 1mg clonidine HCl 0.2 mg tablet 2021-0 4-12 00:00: 00 No 1mg quetiapine 400 mg tablet 2021-0 4-12 00:00: 00 No 2mg pantoprazol e 40 mg tablet,mellisa yed release 0 4-12 00:00: 00 No 1mg metoclopram chrissy 10 mg tablet 0 4-12 00:00: 00 No 1mg Dose Unknown 2021-0 4-12 00:00: 00 No amitriptyli ne 50 mg tablet 0 4-12 00:00: 00 No 1mg Dose Unknown 2021-0 4-12 00:00: 00 No Dose Unknown 2021-0 4-12 00:00: 00 No duloxetine 30 mg [...] 2021-0 4-12 00:00: 00 No Dose Unknown 2-0 4-12 00:00: 00 No Dose Unknown 2-0 4-12 00:00: 00 No Dose Unknown 2-0 4-12 00:00: 00 No Dose Unknown 2-0 4-12 00:00: 00 No Dose Unknown 2021-0 4-12 00:00: 00 No Dose Unknown 2021-0 4-12 00:00: 00 No Dose Unknown 2-0 4-12 00:00: 00 No Dose Unknown 0 07-29 00:00: 00 No Dose Unknown 0 07-29 00:00: 00 No Dose Unknown 0 07-29 00:00: 00 No Dose Unknown 07-29 [...] Unknown 07-29 00:00: 00 No Dose Unknown 0 07-29 00:00: 00 No Dose Unknown 0 07-29 00:00: 00 No Dose Unknown 07-29 [...] U-100 Insulin aspart 100 unit/mL (3 mL) subcutane s 07-29 00:00: 00 No (3 mL) [...] tuation duloxetine 30 mg capsule,del ayed release 2022-0 4-12 00:00: 00 No 1mg Dose Unknown 2-0 4-12 00:00: 00 No gabapentin 400 mg capsule 2-0 4-12 00:00: 00 No 1mg Dose Unknown 2-0 4-12 00:00: 00 No Dose Unknown 2-0 4-12 00:00: 00 No Dose Unknown 2-0 4-12 00:00: 00 No Dose Unknown 2-0 4-12 00:00: 00 No Dose Unknown 2021-0 4-12 00:00: 00 No Dose Unknown 2021-0 4-12 00:00: 00 No Dose Unknown 2021-0 4-12 00:00: 00 No Dose Unknown 2-0 4-12 00:00: 00 No TAKE ONE (1) TABLET(S) BY MOUTH TWICE A DAY FOR 10 DAYS. 2021-0 4-06 00:00: [address] [facility] TAKE ONE (1) TABLET(S) BY MOUTH EVERY SIX HOURS NEEDED FOR PAIN. 2021-0 3- 00:00: [address] [facility] [place] Dose Unknown 2020-1 2- 00:00: [address] [facility] [place] Dose Unknown 2020-1 2- 00:00: [address] [facility] [place] Dose Unknown 2020-1 2- 00:00: [address] [facility] [place] Dose Unknown 2020-1 2- 00:00: [address] [facility] [place] Dose Unknown 2020-1 2- 00:00: [address] [facility] [place] Dose Unknown 2020-1 2-30 00:00: [address] [place] Dose Unknown 2020-1 2-30 00:00: [address] [place] Dose Unknown 2020-1 2-30 00:00: [address] [place] Dose Unknown 2020-1 2-30 00:00: 00 No Dose Unknown 1-1 2-30 00:00: 00 No Dose Unknown 1-1 2-30 00:00: 00 No Dose Unknown 2020-1 2-30 00:00: 00 No Dose Unknown 1-1 2-30 00:00: 00 No Dose Unknown 2020-1 2-30 00:00: 00 No Dose Unknown 2020-1 2-30 00:00: 00 No [...] No Dose Unknown 1-1 2- 00:00: [address] [facility] Dose Unknown 1-1 2- 00:00: [address] [facility] Dose Unknown 1-1 2- 00:00: 00 No Dose Unknown 2021-1 2- 00:00: 00 No Dose Unknown 1-1 2- 00:00: 00 No Dose Unknown 2021-1 2- 00:00: 00 No Dose Unknown 2021-1 2- 00:00: 00 No Dose Unknown 1-1 2- 00:00: 00 No Dose Unknown 2021-1 2- 00:00: 00 No Dose Unknown 2020-04 00:00: 00 No buspirone 30 mg tablet 2020-04 00:00: 00 [...] 2020-04 00:00: [address] [facility] buspirone 30 mg tablet 2020-04 [...] ayed release 2020-04 00:00: 00 No 1mg TAKE 1 TABLET TWICE DAILY. 2020-04 00:00: [address] [facility] Dose Unknown 2020-04 00:00: [address] [facility] Dose Unknown 2020-04 00:00: [address] [facility] ciprofloxac in 500 mg tablet [...] ing tablet 2020-04 00:00: 00 No 1mg Dose Unknown 2020-0418 00:00: [address] [facility] etodolac 400 mg tablet 2020-0418 00:00: 00 No 1mg etodolac 400 mg tablet 2020-0418 00:00: 00 No 1mg etodolac 400 mg tablet 2020-0418 00:00: 00 No 1mg etodolac 400 mg tablet 2020-0418 00:00: 00 No 1mg Dose Unknown 2020-04 0-05 00:00: [address] [facility] Dose Unknown 2020-04 0-05 00:00: [address] [facility] Dose Unknown 2020-04 0-05 00:00: [address] [facility] indomethaci n 50 mg capsule 2020-04 0-05 00:00: [address] [facility] Dose Unknown 2020-04 0-05 00:00: [address] [facility] lidocaine 5 [...] syrup 2020-04 00:00: 00 No 5mg/5 mL Victoza 2-Pepe 0.6 mg/0.1 mL (18 mg/3 mL) subcutane s pen injector 01-14 00:00: 00 Yes [...] 00:00: 00 Yes 2mcg/ac tuation Lane [facility] Novolog Flexpen U-100 Insulin aspart [...] (18 mg/3 mL) subcutane s pen injector 01-14 00:00: 00 No [...] 01-14 00:00: 00 No 1mg Dose Unknown 10-19 00:00: [address] [facility] Tresiba FlexTouch [...] 00:00: 00 No (3 mL) Dose Unknown 07-22 00:00: [address] [place] Victoza 3-Pepe [...] 3-Pepe 0.6 mg/0.1 mL (18 mg/3 mL) subcutane s pen injector 07-22 00:00: 00 No (18 mg/3 mL) ascorbic acid, vitamin C, 500 mg tablet 06-16 00:00: 00 Yes [id number] 500mg Take 1 tablet by mouth daily. [facility] zinc sulfate 220 (50) mg capsule 06-16 00:00: 00 Yes [id number] 220mg Take 1 capsule by mouth daily. [facility] ALPRAZolam (XANAX) 2 mg tablet 06-15 21:18: 29 Yes 2mg Take 2 mg by mouth 3 (three) times daily as needed for Sleep. [facility] INSULIN DEGLUDEC (TRESIBA FLEXTOUCH U-100 SC) 06-15 21:18: 29 Yes 80U inject 80 Units under the skin every morning. [facility] pantoprazol e (PROTONIX) 20 mg EC tablet 06-15 21:18: 29 Yes 20mg Take 20 mg by mouth daily. [facility] insulin aspart prot/insuln asp (NOVOLOG MIX 70-30 SC) 06-15 21:18: 29 Yes inject under the skin. [facility] cloNIDine 0.2 mg tablet 06-15 21:18: 29 Yes .2mg Take 0.2 mg by mouth 3 (three) times daily. [facility] metoprolol succinate XL 50 mg 24 hr tablet 06-15 21:18: 29 Yes 50mg Take 50 mg by mouth 2 (two) times daily. [facility] QUEtiapine (SEROQUEL) 400 mg tablet 06-15 21:18: 29 Yes 800mg Take 800 mg by mouth at bedtime. [facility] ALPRAZolam (XANAX) 2 mg tablet 06-15 15:18: 29 Yes 2mg Take 2 mg by mouth 3 (three) times daily as needed for Sleep. [facility] INSULIN DEGLUDEC (TRESIBA FLEXTOUCH U-100 SC) 06-15 15:18: 29 Yes 80U inject 80 Units under the skin every morning. [facility] pantoprazol e (PROTONIX) 20 mg EC tablet 06-15 15:18: 29 Yes 20mg Take 20 mg by mouth daily. [facility] cloNIDine 0.2 mg tablet 06-15 15:18: 29 Yes .2mg Take 0.2 mg by mouth 3 (three) times daily. [facility] metoprolol succinate XL 50 mg 24 hr tablet 06-15 15:18: 29 Yes 50mg Take 50 mg by mouth 2 (two) times daily. [facility] QUEtiapine (SEROQUEL) 400 mg tablet 06-15 15:18: 29 Yes 800mg Take 800 mg by mouth at bedtime. [facility] aspirin 81 mg chewable tablet 06-15 00:00: 00 Yes [id number] 81mg Take 1 tablet by mouth daily. [facility] ergocalcife rol, vitamin d2, 1,250 mcg (50,000 unit) capsule 06-15 00:00: 00 Yes [id number] Take 1 capsule by mouth weekly. [facility] benzonatate (TESSALON PERLES) 100 mg capsule 06-15 00:00: 00 Yes [id number] 200mg Take 2 capsules by mouth 3 (three) times daily as needed for Cough. [facility] dexAMETHaso ne 4 mg tablet 06-15 00:00: 00 06-21 05:59 :00 No [id number] 4mg Take 1 tablet by mouth daily with breakfast for 5 days. [facility] enoxaparin (LOVENOX) injection 40 mg 06-14 15:00: 00 Yes 40mg 40 mg, Subcutaneo us, DAILY, First dose on Wed06/14/20 at 0900, Until Discontinu ed, Routine [facility] iohexol (OMNIPAQUE 350 BULK-100 mL) injection 100 mL 06-13 14:30: 00 06-13 14:07 :00 No 100mL 100 mL, Intravenou s, ONCE, 1 dose, Yulisa 06/13/20 at 0830, Routine [facility] enoxaparin (LOVENOX) injection 100 mg 06-13 02:00: 00 06-14 07:50 :01 No 1mg/kg 100 mg (rounded from 101 mg = 1 mg/kg ?101 kg), Subcutaneo us, Q12H, First dose (after last modificati on) on Wed06/12/20 at 2000, Until Discontinu ed, Routine [facility] enoxaparin (LOVENOX) injection 60 mg 06-12 19:15: 00 06-12 19:21 :00 No 60mg 60 mg, Subcutaneo us, ONCE NOW, 1 dose, Wed06/12/20 at 1315, Routine [facility] tc 99m-albumin (DRAXIMAGE MAA) injection 7 millicurie 06-12 18:30: 00 06-12 18:20 :00 No 7mCi 7 millicurie , Intravenou s, ONCE, 1 dose, Wed06/12/20 at 1230, Routine [facility] furosemide (LASIX) injection 20 mg 06-12 18:00: 00 Yes 20mg 20 mg, IV Push, DAILY, First dose on Wed06/12/20 at 1200, Until Discontinu ed, Routine [facility] ALPRAZolam (XANAX) tablet 2 mg 06-12 17:45: 00 Yes 2mg 2 mg, Oral, TIDPRN, Starting Wed06/12/20 at 1145, Until Discontinu ed, Routine, anxiety [facility] HYDROcodone -acetaminop hen (NORCO) 10-325 mg tablet 1 tablet 06-12 17:42: 07 Yes 1{tbl} 1 tablet, Oral, Q6HPRN, Starting Wed06/12/20 at 1142, Until Discontinu ed, Routine, Pain (scale 4-6), Pain (scale 7-10) [facility] montelukast (SINGULAIR) tablet 10 mg 06-12 15:00: 00 Yes 10mg 10 mg, Oral, DAILY, First dose on Wed06/12/20 at 0900, Until Discontinu ed, Routine [facility] insulin glargine (LANTUS U-100) injection 80 Units 06-12 15:00: 00 Yes 80U 80 Units, Subcutaneo us, DAILY, First dose on Wed06/12/20 at 0900, Until Discontinu ed [facility] ascorbic acid (vitamin C) (VITAMIN C) tablet 1,000 mg 06-12 15:00: 00 Yes 1000mg 1,000 mg, Oral, DAILY, First dose on Wed06/12/20 at 0900, Until Discontinu ed, Routine [facility] zinc sulfate (ORAZINC) capsule 220 mg 06-12 15:00: 00 Yes 220mg 220 mg, Oral, DAILY, First dose on Wed06/12/20 at 0900, Until Discontinu ed, Routine [facility] pantoprazol e (PROTONIX) EC tablet 20 mg 06-12 15:00: 00 Yes 20mg 20 mg, Oral, DAILY, First dose on Wed06/12/20 at 0900, Until Discontinu ed, Routine [facility] QUEtiapine (SEROQUEL) tablet 800 mg 06-12 03:00: 00 Yes 800mg 800 mg, Oral, QHS, First dose on Wed06/11/20 at 2100, Until Discontinu ed, Routine [facility] metoprolol succinate XL (TOPROL XL) tablet 50 mg 06-12 02:00: 00 Yes 50mg 50 mg, Oral, BID, First dose on Wed06/11/20 at 2000, Until Discontinu ed, Routine [facility] cloNIDine (CATAPRES) tablet 0.2 mg 06-12 02:00: 00 Yes .2mg 0.2 mg, Oral, TID, First dose on Wed06/11/20 at 2000, Until Discontinu ed, Routine [facility] albuterol-i pratropium (COMBIVENT RESPIMAT) 20-100 mcg/actuati on inhaler 2 Puff 06-12 02:00: 00 Yes 2{puff} 2 Puff, Inhalation , QID, First dose on Wed06/11/20 at 2000, Until Discontinu ed
Is this order for a patient with suspected or confirmed COVID-19 infection? Yes [facility] iron dextran (INFED) 1,000 mg in NaCl 0.9% (NS) 500 mL IV infusion 06-12 01:45: 00 06-12 07:54 :00 No 1000mg 1,000 mg, IV Infusion, ONCE, 1 dose, Wed06/11/20 at 1945, 500 mL [facility] magnesium sulfate in D5W 1 gram/100 mL RTU IV Piggyback 1 g 06-12 01:45: 00 06-12 04:48 :00 No 1g 1 g, IV Piggyback, ONCE, 1 dose, Wed06/11/20 at 1945, 100 mL [facility] HYDROcodone -acetaminop hen (NORCO 5) 5-325 mg tablet 1 tablet 06-12 00:30: 00 06-12 00:33 :00 No 1{tbl} 1 tablet, Oral, ONCE, 1 dose, Wed06/11/20 at 1830, Routine [facility] proMETHazin e (PHENERGAN) 12.5 mg in NaCl 0.9% (NS) 50 mL IV piggyback 06-11 23:42: 03 Yes 12.5mg 12.5 mg, IV Piggyback, Q6HPRN, Starting Wed06/11/20 at 1742, Until Discontinu ed, Routine, Nausea and Vomiting (N/V) [facility] LORazepam 2 mg tablet 06-11 23:21: 17 06-11 00:00 :00 No 2mg Take 2 mg by mouth 3 (three) times daily as needed. [facility] canaglifloz in (INVOKANA) 100 mg tablet 06-11 23:21: 12 06-11 00:00 :00 No 100mg Take 100 mg by mouth daily. [facility] ALPRAZolam (XANAX) tablet 2 mg 06-11 23:20: 52 06-12 17:43 :22 No 2mg 2 mg, Oral, BIDPRN, Starting Wed06/11/20 at 1720, Until Wed06/12/20 at 1143, Routine, anxiety [facility] HYDROcodone -acetaminop hen (NORCO) 10-325 mg tablet 1 tablet 06-11 23:17: 21 06-12 17:43 :22 No 1{tbl} 1 tablet, Oral, Q6HPRN, Starting Wed06/11/20 at 1717, Until Wed06/12/20 at 1143, Routine, Pain (scale 7-10) [facility] Sliding Scale Insulin - Lispro (HumaLOG) + Fsbg Testing 06-11 23:00: 00 Yes Subcutaneo us, TID MEALS+HS, First dose on Wed06/11/20 at 1700, Until Discontinu ed, Routine [facility] enoxaparin (LOVENOX) injection 40 mg 06-11 23:00: 00 06-12 18:04 :51 No 40mg 40 mg, Subcutaneo us, DAILY, First dose on Wed06/11/20 at 1700, Until Discontinu ed, Routine [facility] codeine-gua ifenesin (ROBITUSSIN AC) 10-100 mg/5 mL solution 10 mL 06-11 22:37: 32 Yes 10mL 10 mL, Oral, Q6HPRN, Starting Wed06/11/20 at 1637, Until Discontinu ed, Routine, Cough [facility] acetaminoph en (TYLENOL) tablet 650 mg 06-11 22:32: 47 Yes 650mg 650 mg, Oral, Q6HPRN, Starting Wed06/11/20 at 1632, Until Discontinu ed, Routine, Pain (scale 1-3) [facility] diphenhydrA MINE (BENADRYL) injection 25 mg 06-11 21:00: 00 06-11 19:58 :00 No 25mg 25 mg, Slow IV Push, ONCE, 1 dose, Wed06/11/20 at 1500, STAT [facility] metoclopram chrissy HCl (REGLAN) injection 10 mg 06-11 21:00: 00 06-11 19:58 :00 No 10mg 10 mg, Slow IV Push, ONCE, 1 dose, Wed06/11/20 at 1500, HELENE [facility] HYDROcodone -acetaminop hen (NORCO 5) 5-325 mg tablet 1 tablet 06-11 19:30: 00 06-11 18:28 :00 No 1{tbl} 1 tablet, Oral, ONCE, 1 dose, Wed06/11/20 at 1330, HELENE [facility] NaCl 0.9% (NS) bolus infusion 1,000 mL 06-11 18:30: 00 06-11 18:28 :00 No 1000mL at 999 mL/hr, 1,000 mL, IV Infusion, ONCE, 1 dose, 06/11/20 at 1230, [facility] ondansetron (ZOFRAN (PF)) injection 4 mg 06-11 18:15: 00 06-11 17:14 :00 No 4mg 4 mg, Slow IV Push, ONCE, 1 dose, 06/11/20 at 1215, [facility] codeine-gua ifenesin (ROBITUSSIN AC) 10-100 mg/5 mL solution 10 mL 06-11 17:45: 00 06-11 17:05 :00 No 10mL 10 mL, Oral, ONCE, 1 dose, 06/11/20 at 1145, [facility] acetaminoph en (TYLENOL) tablet 1,000 mg 06-11 17:45: 00 06-11 16:50 :00 No 1000mg 1,000 mg, Oral, ONCE, 1 dose, 06/11/20 at 1145, [facility] albuterol (PROVENTIL) 2.5 mg /3 mL (0.083 %) nebulizer solution 2.5 mg 06-11 16:45: 00 06-11 16:48 :00 No 2.5mg 2.5 mg, Inhalation , ONCE, 1 dose, 06/11/20 at 1045, [facility] NaCl 0.9% (NS) bolus infusion 1,000 mL 06-11 16:45: 00 06-11 19:31 :00 No 1000mL at 999 mL/hr, 1,000 mL, IV Infusion, ONCE, 1 dose, 06/11/20 at 1045, [facility] traMADOL (ULTRAM) 50 mg tablet 10-26 00:00: 00 Yes 50mg Take 1 tablet by mouth every 6 (six) hours as needed for Pain (scale 7-10). [facility] levoFLOXaci n (LEVAQUIN) 500 mg tablet 10-26 00:00: 00 Yes 500mg Take 1 tablet by mouth every 24 (twenty-fo ur) hours. [facility] ALPRAZolam (XANAX) 2 mg tablet 2015-04 04:30: 37 Yes 2mg Take 2 mg by mouth 3 (three) times daily as needed for Sleep. [facility] INSULIN DEGLUDEC (TRESIBA FLEXTOUCH U-100 SC) 2015-04 04:30: 37 Yes inject under the skin. [facility] canaglifloz in (INVOKANA) 100 mg tablet 2015-04 04:30: 37 Yes 100mg Take 100 mg by mouth daily. [facility] ondansetron (ZOFRAN, HYDROCHLORI DE,) 4 mg tablet 2015-04 00:00: 00 Yes 4mg Take 1 tablet by mouth every 8 (eight) hours as needed for Nausea and Vomiting (N/V). [facility] ciprofloxac in HCl (CIPRO) 500 mg tablet 2015-04 00:00: 00 Yes 500mg Take 1 tablet by mouth 2 (two) times daily. [facility] metroNIDAZO LE (FLAGYL) 500 mg tablet 2015-04 00:00: 00 Yes 500mg Take 1 tablet by mouth 2 (two) times daily. [facility] traMADOL (ULTRAM) 50 mg tablet 2015-04 00:00: 00 Yes 50mg Take 1 tablet by mouth every 6 (six) hours as needed for Pain (scale 7-10). [facility] ondansetron (ZOFRAN, HYDROCHLORI DE,) 4 mg tablet 07-22 00:00: 00 Yes 4mg Take 1 Tab by mouth every 8 (eight) hours as needed for Nausea and Vomiting (N/V). [facility] acetaminoph en-codeine (TYLENOL-CO DEINE #3) 300-30 mg tablet 07-22 00:00: 00 Yes 1{tbl} Take 1 Tab by mouth every 6 (six) hours as needed for Pain (scale 4-6). [facility] esomeprazol e (NEXIUM) 40 mg capsule 2010-04 0 00:00: 00 Yes TAKE 1 CAPSULE EVERY DAY WITH BREAKFAST [facility] gabapentin (NEURONTIN) 400 mg capsule 05-21 00:00: 00 Yes 400mg Take 1 Cap by mouth 3 (three) times daily. [facility] albuterol-i pratropium (COMBIVENT INHALER) 18-103 mcg/Actuati on inhaler 2009-04 0 00:00: 00 Yes 2{puff} Inhale 2 Puffs 4 (four) times daily. [facility] traMADOL (ULTRAM) 50 mg tablet 2009-04 00:00: 00 Yes [id number] 50mg Take 1 Tab by mouth every 6 (six) hours as needed for Pain. [facility] hydrocodone -acetaminop hen (NORCO) 10-325 mg per tablet 2009-04 00:00: 00 Yes [id number] 1{tbl} Take 1 Tab by mouth every 6 (six) hours as needed for Pain. [facility] albuterol-i pratropium (COMBIVENT INHALER) 18-103 mcg/Actuati on inhaler 2009-04 00:00: 00 Yes [id number] 2{puff} Inhale 2 Puffs 4 (four) times daily. [facility] fluticasone (FLONASE) 50 mcg/Actuati on nasal spray 2009-04 00:00: 00 Yes 2{spray } Use 2 Sprays in each nostril daily. [facility] montelukast (SINGULAIR) 10 mg tablet 2009-04 00:00: 00 Yes [id number] 10mg Take 1 Tab by mouth daily. [facility] esomeprazol e (NEXIUM) 40 mg capsule 2009-04 00:00: 00 Yes 40mg Take 1 Cap by mouth daily with breakfast. [facility] carvedilol (COREG) 12.5 mg tablet 2009-04 00:00: 00 Yes [id number] 25mg Take 2 Tabs by mouth 2 (two) times daily with meals. [facility] valsartan (DIOVAN) 320 mg tablet 2009-04 00:00: 00 Yes [id number] 320mg Take 1 Tab by mouth daily. [facility] metFORMIN (GLUCOPHAGE ) 500 mg tablet 2009-04 00:00: 00 Yes [id number] 500mg Take 1 Tab by mouth daily. [facility] loratadine (CLARITIN) 10 mg tablet 2009-04 00:00: 00 Yes 10mg Take 1 Tab by mouth daily. [facility] chlorhexidi ne (PERIDEX) 0.12 % Liqd 12-17 00:00: 00 Yes Swish and spit out. Mouth wash, swish and spit, 3 temies a day x 7 days [facility] Immunizations Ordered Immunization Name Filled Immunization Name Date Status Comments Source Influenza Virus Vaccine,quad Im,preserve Free 65+ (FLUAD) 2023-07-14 00:00:00 Completed [facility] Influenza Virus Vaccine,quad Im,preserve Free 65+ (FLUAD) 2023-04-14 00:00:00 Completed [facility] Influenza Virus Vaccine,quad Im,preserve Free 65+ (FLUAD) 2023-03-27 00:00:00 Completed [facility] Influenza Virus Vaccine,quad Im,preserve Free 65+ (FLUAD) 2023-03-24 00:00:00 Completed [facility] Influenza Virus Vaccine,quad Im,preserve Free 65+ (FLUAD) 2023-02-22 15:49:00 Completed [facility] Influenza Virus Vaccine,quad Im,preserve Free 65+ 2022-04-24 00:00:00 Completed [facility] Influenza Virus Vaccine,quad Im,preserve Free 65+ 2022-04-24 00:00:00 Completed [facility] Influenza Virus Vaccine,quad Im,preserve Free 65+ 2022-04-24 00:00:00 Completed [facility] Influenza Virus Vaccine,quad Im,preserve Free 65+ 2022-04-24 00:00:00 Completed [facility] Influenza Virus Vaccine,quad Im,preserve Free 65+ 2022-04-24 00:00:00 Completed [facility] Influenza Virus Vaccine,quad Im,preserve Free 652022-04-24 00:00:00 Completed [facility] Influenza Virus Vaccine,quad Im,preserve Free 652022-04-24 00:00:00 Completed [facility] Influenza Virus Vaccine,quad Im,preserve Free 652022-04-24 00:00:00 Completed [facility] Influenza Virus Vaccine,quad Im,preserve Free 652022-04-24 00:00:00 Completed [facility] Influenza Virus Vaccine,quad Im,preserve Free 652022-04-24 00:00:00 Completed [facility] Influenza Virus Vaccine,quad Im,preserve Free 652022-04-24 00:00:00 Completed [facility] Influenza Virus Vaccine,quad Im,preserve Free 652022-04-24 00:00:00 Completed [facility] Influenza Virus Vaccine,quad Im,preserve Free 2022-04-24 00:00:00 Completed [facility] Influenza Virus Vaccine,quad Im,preserve Free 2022-04-24 00:00:00 Completed [facility] Influenza Virus Vaccine,quad Im,preserve Free 652022-04-24 00:00:00 Completed [facility] Influenza Virus Vaccine,quad Im,preserve Free 652022-04-24 00:00:00 Completed [facility] Influenza Virus Vaccine,quad Im,preserve Free 652022-04-24 00:00:00 Completed [facility] Influenza Virus Vaccine,quad Im,preserve Free 652022-04-24 00:00:00 Completed [facility] Influenza Virus Vaccine,quad Im,preserve Free 652022-04-24 00:00:00 Completed [facility] Influenza Virus Vaccine,quad Im,preserve Free 2022-04-24 00:00:00 Completed [facility] Influenza Virus Vaccine,quad Im,preserve Free 652022-04-24 00:00:00 Completed [facility] Moderna COVID-19 Vaccine Moderna COVID-19 Vaccine 2021-04-09 00:00:[address] [place] Moderna COVID-19 Vaccine Moderna COVID-19 Vaccine 2021-04-09 00:00:[address] [place] Moderna COVID-19 Vaccine 2021-04-09 00:00:00 Completed Moderna COVID-19 Vaccine 2021-04-09 00:00:00 Completed Moderna COVID-19 Vaccine 2021-04-09 00:00:00 Completed Moderna COVID-19 Vaccine 2021-04-09 00:00:00 Completed Moderna COVID-19 Vaccine 2021-04-09 00:00:00 Completed Vital Signs Vital Name Observation Time Observation Value Comments Shai arevalo Systolic blood pressure 2023-02-23 01:26:00 134 mm[Hg] [facility] Diastolic blood pressure 2023-02-23 01:26:00 87 mm[Hg] [facility] Heart rate 2023-02-23 01:26:00 92 /min [facility] Respiratory rate 2023-02-23 01:26:00 24 /min [facility] Oxygen saturation in Arterial blood by Pulse oximetry 2023-02-23 01:26:00 99 /min [facility] Body temperature 2023-02-22 21:46:00 36.83 Justyna [facility] Body weight 2023-02-22 21:46:00 97.523 kg [facility] BMI 2023-02-22 21:46:00 36.90 kg/m2 [facility] Systolic blood pressure 2022-08-10 20:10:00 167 mm[Hg] [facility] Diastolic blood pressure 2022-08-10 20:10:00 100 mm[Hg] [facility] Heart rate 2022-08-10 20:10:00 102 /min [facility] Respiratory rate 2022-08-10 20:10:00 18 /min [facility] Oxygen saturation in Arterial blood by Pulse oximetry 2022-08-10 20:10:00 100 /min [facility] Body temperature 2022-08-10 14:17:00 37.28 Justyna [facility] Body weight 2022-08-10 14:17:00 102.059 kg [facility] BMI 2022-08-10 14:17:00 38.62 kg/m2 [facility] Systolic blood pressure 2022-07-24 14:54:00 134 mm[Hg] [facility] Diastolic blood pressure 2022-07-24 14:54:00 84 mm[Hg] [facility] Heart rate 2022-07-24 14:54:00 97 /min [facility] Respiratory rate 2022-07-24 14:54:00 18 /min [facility] Body height 2022-07-24 14:54:00 162.6 cm [facility] Body weight 2022-07-24 14:54:00 102.059 kg [facility] BMI 2022-07-24 14:54:00 38.62 kg/m2 [facility] Oxygen saturation in Arterial blood by Pulse oximetry 2022-07-24 14:54:00 99 /min [facility] Systolic blood pressure 2022-04-24 20:42:00 133 mm[Hg] [facility] Diastolic blood pressure 2022-04-24 20:42:00 74 mm[Hg] [facility] Heart rate 2022-04-24 20:42:00 92 /min [facility] Body temperature 2022-04-24 20:42:00 36.72 Justyna [facility] Body height 2022-04-24 20:42:00 162.6 cm [facility] Body weight 2022-04-24 20:42:00 98.294 kg [facility] BMI 2022-04-24 20:42:00 37.20 kg/m2 [facility] Oxygen saturation in Arterial blood by Pulse oximetry 2022-04-24 20:42:00 93 /min [facility] Systolic blood pressure 2022-04-20 20:14:00 140 mm[Hg] [facility] Diastolic blood pressure 2022-04-20 20:14:00 83 mm[Hg] [facility] Heart rate 2022-04-20 20:10:00 99 /min [facility] Body height 2022-04-20 20:10:00 162.6 cm [facility] Body weight 2022-04-20 20:10:00 95.709 kg [facility] BMI 2022-04-20 20:10:00 36.22 kg/m2 [facility] Oxygen saturation in Arterial blood by Pulse oximetry 2022-04-20 20:10:00 97 /min [facility] Body height 2022-04-03 14:19:00 162.6 cm [facility] Body weight 2022-04-03 14:19:00 97.523 kg [facility] BMI 2022-04-03 14:19:00 36.90 kg/m2 [facility] Systolic blood pressure 2020-06-15 19:00:00 133 mm[Hg] [facility] Diastolic blood pressure 2020-06-15 19:00:00 81 mm[Hg] [facility] Heart rate 2020-06-15 19:00:00 71 [facility] Respiratory rate 2020-06-15 19:00:00 21 /min [facility] Body temperature 2020-06-15 17:24:00 35.56 Justyna [facility] Oxygen saturation in Arterial blood by Pulse oximetry 2020-06-15 17:14:00 100 /min [facility] Body weight 2020-06-11 21:20:00 100.971 kg [facility] BMI 2020-06-11 21:20:00 38.21 kg/m2 [facility] Systolic blood pressure 2020-06-15 19:00:00 133 mm[Hg] [facility] Diastolic blood pressure 2020-06-15 19:00:00 81 mm[Hg] [facility] Heart rate 2020-06-15 19:00:00 71 /min [facility] Respiratory rate 2020-06-15 19:00:00 21 /min [facility] Body temperature 2020-06-15 17:24:00 35.56 Justyna [facility] Oxygen saturation in Arterial blood by Pulse oximetry 2020-06-15 17:14:00 100 /min [facility] Body weight 2020-06-11 21:20:00 100.971 kg [facility] BMI 2020-06-11 21:20:00 38.21 kg/m2 [facility] BP Systolic 2024-08-04 11:03:00 123 mm[Hg] Step hen [facility] BP Diastolic 2024-08-04 11:03:00 78 mm[Hg] Jeff phen [facility] Weight Measured 2024-08-04 11:03:[address] [facility] [place] Height Measured 2024-08-04 11:03:[address] [facility] Body Temperature 2024-08-04 11:03:[address] [facility] [place] Heart Rate 2024-08-04 11:03:00 95.00 /min [place] [facility] Respiratory Rate 2024-08-04 11:03:00 18.00 /min Lane [facility] [place] BP Systolic 2023-12-07 19:36:00 Step hen F [...] Temperature 2022-11-10 10:13:[address] [facility] [place] Heart Rate 2022-11-10 10:13:00 105.00 /min Step [...] Measured 2022-03-25 08:33:[address] [facility] [place] Body Temperature 2022-03-25 08:33:[address] [facility] [place] Heart Rate 2022-03-25 08:33:00 97.00 /min [place] [facility] Respiratory Rate 2022-03-25 08:33:00 17.00 /min Lane [facility] [place] BP Systolic 2022-03-11 09:03:00 134 mm[Hg] Step hen [facility] [place] BP Diastolic 2022-03-11 09:03:00 82 mm[Hg] Jeff phen [facility] [place] Weight Measured 2022-03-11 09:03:[address] [facility] [place] Height Measured 2022-03-11 09:03:[address] [facility] [place] Body Temperature 2022-03-11 09:03:[address] [facility] [place] Heart Rate 2022-03-11 09:03:00 80.00 /min [place] [facility] Respiratory Rate 2022-03-11 09:03:00 18.00 /min Lane [facility] [place] BP Systolic 2022-01-13 16:30:00 BP Diastolic 2022-01-13 [...] Source REFERRAL- REQUEST/RESPONSE 2023-04-14 06:01:00 Doctor Unassigned, [place] [facility] REFERRAL- REQUEST/RESPONSE 2023-03-24 06:01:00 Doctor Unassigned, [place] [facility] URINALYSIS 2023-02-22 23:[facility]OPONIN I 2023-02-22 23:24[facility] COMP. METABOLIC PANEL ([id number]) 2023-02-22 23:24:00 [facility] CBC WITH DIFF 2023-02-22 23:24:00 Ad Esparza [facility] N-TERMINAL PRO-BNP 2023-02-22 23:24:00 [facility] GALV ONLY - INFLUENZA A B RSV PCR 2023-02-22 22:46:00 [facility] (ID NOW RAPID TESTING) 2023-02-22 22:46[facility]00 [facility]REFUSAL FOR DIAGNOSIS AND TREATMENT 2023-02-22 21:27:45 Doctor Unassigned, [place] [facility] CT ABDOMEN PELVIS W CONTRAST 2022-08-10 17:27:00 Benjamín Taylor [facility] LIPASE 2022-08-10 15:31:00 Benjamín Taylor [facility] COMP. METABOLIC PANEL ([id number]) 2022-08-10 15:31:00 Benjamín Taylor [facility] CBC WITH DIFF 2022-08-10 15:31:00 Benjamín Taylor [facility] URINALYSIS 2022-08-10 15:31:00 Benjamín Taylor [facility] COVID-19 (ID NOW RAPID TESTING) 2022-08-10 15:31:00 Benjamín Taylor [facility] CONSENT/REFUSAL FOR DIAGNOSIS AND TREATMENT 2022-08-10 14:06:59 Doctor Unassigned, [place] [facility] OPERATIVE NOTES 2022-08-05 05:01:00 Doctor Unass igned, [place] [facility] EXTERNAL PROVIDER RECORDS 2022-08-04 05:01:00 Do ctor Unassigned, [place] [facility] CBC WITH DIFF 2022-07-30 13:22:00 Perez [facility] MYOCARDIUM PERFUSION STRESS AND REST 2022-07-09 17:00:00 Philippe, Sendil [facility] NUCLEAR STRESS TEST CARDIOLOGY (DO NOT SCHED) 2022-07-09 17:00:00 Philippe, Sendil [facility] NUCLEAR STRESS TEST CARDIOLOGY (DO NOT SCHED) 2022-07-09 17:00:00 Philippe, Sendil [facility] MYOCARDIUM PERFUSION STRESS AND REST 2022-07-09 17:00:00 Philippe, Sendil [facility] MYOCARDIUM PERFUSION STRESS AND REST 2022-07-09 17:00:00 Philippe, Sendil [facility] NUCLEAR STRESS TEST CARDIOLOGY (DO NOT SCHED) 2022-07-09 17:00:00 Philippe, Sendil [facility] MYOCARDIUM PERFUSION STRESS AND REST 2022-07-09 17:00:00 Philippe, Sendil [facility] NUCLEAR STRESS TEST CARDIOLOGY (DO NOT SCHED) 2022-07-09 17:00:00 Melia Philippe [facility] CONSENT/REFUSAL FOR DIAGNOSIS AND TREATMENT 2022-07-09 13:33:42 Doctor Unassigned, [place] [facility] ASSIGNMENT OF BENEFITS 2022-07-09 13:33:23 Docto r Unassigned, [place] [facility] INSURANCE CORRESPONDENCE 2022-05-14 06:01:00 Doc tor Unassigned, [place] [facility] FLU VACC(),65+YR,0.5 ML,IM,ADJUVANTED,QUAD(FLU AD) 2022-04-24 21:33:53 Melia Philippe [facility] HB ECG ROUTINE & RHYTHM STRIP 2022-04-24 20:38:59 Melia Philippe [facility] NOTICE OF BILLING PRACTICES FOR MEDICARE PATIENTS 2022-04-17 16:03:01 Doctor Unassigned, [place] [facility] ASSIGNMENT OF BENEFITS 2022-04-03 13:53:01 Docto r Unassigned, [place] [facility] REFERRAL- REQUEST/RESPONSE 2022-03-21 06:01:00 Doctor Unassigned, [place] [facility] POCT GLUCOSE (AUTOMATED) 2020-06-15 17:39:00 Leonarda Nava [facility] BASIC METABOLIC PANEL (NA, K, CL, CO2, GLUCOSE, BUN, CREATININE, CA) 2020-06-15 11:05:00 Jena Davidson [facility] CBC WITH DIFF 2020-06-15 11:05:00 Jena Davidson [facility] POCT GLUCOSE (AUTOMATED) 2020-06-15 01:31:00 Leonarda Nava [facility] POCT GLUCOSE (AUTOMATED) 2020-06-14 22:14:00 Leonarda Nava [facility] POCT GLUCOSE (AUTOMATED) 2020-06-14 17:32:00 Leonarda Nava [facility] POCT GLUCOSE (AUTOMATED) 2020-06-14 13:51:00 Leonarda Nava [facility] BASIC METABOLIC PANEL (NA, K, CL, CO2, GLUCOSE, BUN, CREATININE, CA) 2020-06-14 10:45:00 Jena Davidson [facility] CBC WITH DIFF 2020-06-14 10:45:00 Jena Davidson [facility] POCT GLUCOSE (AUTOMATED) 2020-06-14 05:57:00 Leonarda Nava [facility] POCT GLUCOSE (AUTOMATED) 2020-06-14 02:04:00 Leonarda Nava [facility] POCT GLUCOSE (AUTOMATED) 2020-06-13 22:36:00 Leonarda Nava [facility] POCT GLUCOSE (AUTOMATED) 2020-06-13 17:41:00 Leonarda Nava [facility] POCT GLUCOSE (AUTOMATED) 2020-06-13 14:21:00 Leonarda Nava [facility] CT ANGIOGRAM CHEST 2020-06-13 14:17:35 Carlitos Uribe [facility] BASIC METABOLIC PANEL (NA, K, CL, CO2, GLUCOSE, BUN, CREATININE, CA) 2020-06-13 09:46:00 Jena Davidsno [facility] CBC WITH DIFF 2020-06-13 09:46:00 Jena Davidson [facility] PREPARE PLASMA 2020-06-13 04:34:33 [place] [facility] POCT GLUCOSE (AUTOMATED) 2020-06-12 22:57:00 Leonarda Nava [facility] NM LUNG PERFUSION ONLY 2020-06-12 18:45:00 Enriqueta Uribe [facility] POCT GLUCOSE (AUTOMATED) 2020-06-12 18:06:00 Leonarda Nava [facility] POCT GLUCOSE (AUTOMATED) 2020-06-12 14:07:00 Leonarda Nava [facility] ABORH CONFIRMATION 2020-06-12 09:30:00 Avery Nava [facility] D-DIMER 2020-06-12 09:25:00 [facility] GROUPING 2020-06-12 08:57:00 [place] [facility] BASIC METABOLIC PANEL (NA, K, CL, CO2, GLUCOSE, BUN, CREATININE, CA) 2020-06-12 08:55:00 Jena Davidson [facility] CBC WITH DIFF 2020-06-12 08:55:00 Jena Davidson [facility] POCT GLUCOSE (AUTOMATED) 2020-06-12 02:03:00 Leonarda Nava [facility] VITAMIN B12, LEVEL 2020-06-11 23:06:00 Jena Davidson [facility] VITAMIN D, 25-OH 2020-06-11 23:06:00 Jena Davidson [facility] PROCALCITONIN 2020-06-11 23:06:00 Jena Davidson [facility] IRON PANEL 2020-06-11 23:05:00 Jena Daivdson [facility] POCT GLUCOSE (AUTOMATED) 2020-06-11 22:52:00 Leonarda Nava [facility] XR CHEST 1 VW 2020-06-11 17:23:51 Leonarda Nava [facility] MAGNESIUM 2020-06-11 16:46:00 [facility] TROPONIN I 2020-06-11 16:46:00 [facility] THYROID STIMULATING HORMONE 2020-06-11 16:46:00 Jena Davidson [facility] HEPATIC FUNCTION PANEL (42181) (ALB,T.PRO,BILI T,BU/BC,ALT,AST,ALK PHOS) 2020-06-11 16:46:00 Leonarda Nava [facility] BASIC METABOLIC PANEL (NA, K, CL, CO2, GLUCOSE, BUN, CREATININE, CA) 2020-06-11 16:46:00 Leonarda Nava [facility] CBC WITH DIFF 2020-06-11 16:46:00 Leonarda Nava [facility] GLYCOSYLATED HEMOGLOBIN (A1C) 2020-06-11 16:46:00 Jena Davidson [facility] N-TERMINAL PRO-BNP 2020-06-11 16:46:00 Jena Davidson [facility] LACTIC ACID WHOLE BLOOD 2020-06-11 16:46:00 Leonarda Nava [facility] COVID-19 (ID NOW RAPID TESTING) 2020-06-11 16:46:00 Leonarda Nava [facility] LAB ONLY COVID INTERPRETATION 2020-06-11 16:46:00 Leonarda Nava [facility] HB ECG ROUTINE & RHYTHM STRIP 2020-06-11 16:36:07 Leonarda Nava [facility] CONSENT/REFUSAL FOR DIAGNOSIS AND TREATMENT 2020-06-11 16:09:15 Doctor Unassigned, [place] [facility] NOTICE OF PRIVACY PRACTICES 2020-06-11 16:08:58 Doctor Unassigned, [place] [facility] Plan of Care Planned Activity Planned Date Details Comments Source Goal Plan of Care Note [code = 27972-1] Goal Plan of Care Note [code = 53402-7] Goal Plan of Care Note [code = 79129-5] Goal Plan of Care Note [code = 79813-9] Goal Plan of Care Note [code = 32641-2] Goal Plan of Care Note [code = 59720-8] Goal Plan of Care Note [code = 69704-8] Goal Plan of Care Note [code = 10143-1] Goal Plan of Care Note [code = 80204-5] Goal Plan of Care Note [code = 62646-5] Goal Plan of Care Note [code = 35053-5] Goal Plan of Care Note [code = 36735-4] Goal Plan of Care Note [code = 58467-9] Goal Plan of Care Note [code = 18150-1] Goal Plan of Care Note [code = 58430-6] Goal Plan of Care Note [code = 95152-9] Goal Plan of Care Note [code = 14085-7] Goal Plan of Care Note [code = 64166-3] Goal Plan of Care Note [code = 66300-1] Goal Plan of Care Note [code = 96458-0] Goal Plan of Care Note [code = 55343-0] Goal Plan of Care Note [code = 34356-6] Goal Plan of Care Note [code = 30832-6] Goal Plan of Care Note [code = 01470-5] Goal Plan of Care Note [code = 09020-8] Goal Plan of Care Note [code = 81122-8] Goal Plan of Care Note [code = 42873-0] Goal Plan of Care Note [code = 78082-3] Goal Plan of Care Note [code = 21289-7] Goal Plan of Care Note [code = 54115-4] Goal Plan of Care Note [code = 23428-1] Goal Plan of Care Note [code = 65416-1] Goal Plan of Care Note [code = 48867-2] Goal Plan of Care Note [code = 52689-6] Goal Plan of Care Note [code = 27553-4] Goal Plan of Care Note [code = 78633-4] Goal Plan of Care Note [code = 33070-0] Goal Plan of Care Note [code = 06787-8] Goal Plan of Care Note [code = 46866-9] Goal Plan of Care Note [code = 96184-4] Goal Plan of Care Note [code = 18919-5] Goal Plan of Care Note [code = 55473-1] Goal Plan of Care Note [code = 64008-9] Goal Plan of Care Note [code = 19437-0] Goal Plan of Care Note [code = 98162-2] Goal Plan of Care Note [code = 01215-9] Goal Plan of Care Note [code = 04826-4] Goal Plan of Care Note [code = 79444-9] Goal Plan of Care Note [code = 07058-0] Goal Plan of Care Note [code = 09435-8] Goal Plan of Care Note [code = 45902-8] Goal Plan of Care Note [code = 01565-4] Goal Plan of Care Note [code = 57408-9] Goal Plan of Care Note [code = 12784-1] Goal Plan of Care Note [code = 30732-8] Goal Plan of Care Note [code = 19046-7] Goal Plan of Care Note [code = 30753-5] Goal Plan of Care Note [code = 57155-1] Goal Plan of Care Note [code = 24717-4] Goal Plan of Care Note [code = 19287-7] Goal Plan of Care Note [code = 09786-7] Goal Plan of Care Note [code = 98638-7] Goal Plan of Care Note [code = 93468-2] Goal Plan of Care Note [code = 87506-6] Goal Plan of Care Note [code = 28193-3] Goal Plan of Care Note [code = 21852-2] Goal Plan of Care Note [code = 90259-9] Goal Plan of Care Note [code = 81497-0] Goal Plan of Care Note [code = 27873-3] Goal Plan of Care Note [code = 29066-7] Goal Plan of Care Note [code = 35519-9] Goal Plan of Care Note [code = 86567-7] Goal Plan of Care Note [code = 93156-5] Goal Plan of Care Note [code = 73719-6] Encounters Start Date/Time End Date/Time Encounter Type Admission Type Attending [facility] Facility Care Department Encounter ID Source 2024-08-18 22:15:00 2024-08-19 00:43:00 Emergency Tra[facility] KEYSHA HURST [facility] General Medicine [id number] [facility] 2024-08-04 10:51:42 2024-08-04 10:51:42 Outpatient S[facility] [id number] [place] 2024-08-04 00:00:00 2024-08-04 00:00:00 Outpatient Visit [facility] [id number] [address] [place] 2024-05-22 10:27:25 2024-05-22 10:27:25 Outpatient S[facility] [id number] [place] 2024-05-03 00:00:00 2024-05-03 00:00:00 Outpatient Visit [facility] [id number] [place] 2024-03-08 09:30:41 2024-03-08 09:30:41 Outpatient [facility] [id number] [place] 2024-03-08 00:00:00 2024-03-08 00:00:00 Outpatient Visit [facility] [id number] adc-40bb-8 acf-830c26 [id number] [place] 2024-01-20 00:00:00 2024-01-20 00:00:00 Outpatient Visit [facility] [id number] 344-468c-a [id number] [place] 2023-12-07 19:31:18 2023-12-07 19:31:18 Outpatient SFA [facility] [id number] [place] 2023-12-07 00:00:00 2023-12-07 00:00:00 Outpatient Visit [facility] [id number]-[id number]-8 [id number] [address] [place] 2023-08-12 09:29:59 2023-08-12 09:29:59 Outpatient SFA [facility] [id number] [place] 2023-08-12 00:00:00 2023-08-12 00:00:00 Outpatient Visit [facility] [id number] eb2-4057-a [id number] [id number] [address] [place] 2023-07-14 08:13:32 2023-07-14 08:13:32 Outpatient S[facility] [id number] [place] 2023-07-14 00:00:00 2023-07-14 00:00:00 Telephone Perez Hollins [facility] 1.840.114 350.1.13.10 4.2.7.2.686 [id number] [facility] 2023-05-13 10:15:00 2023-05-13 10:15:00 Outpatient R PEREZ HOLLINS CRAIG [facility] [id number] [facility] 2023-04-28 15:15:00 2023-04-28 15:15:00 Outpatient R PEREZ HOLLINS CRAIG [facility] [id number] [facility] 2023-04-14 00:00:00 2023-04-14 00:00:00 Orders Only Doctor Unassigned, [place] [facility] 1..840.114 350.1.13.10 4.2.7.2.686 [id number] [facility] 2023-03-30 17:31:22 2023-03-30 17:31:22 Outpatient SFA [facility] [id number] [place] 2023-03-27 00:00:00 2023-03-27 00:00:00 Patient Secure Msg Doctor Unassigned, [place] [facility] 1.2.840.114 350.1.13.10 4.2.7.2.686 [id number] [facility] 2023-03-24 11:51:57 2023-03-24 11:51:57 Outpatient SFA [facility] [id number] [place] 2023-03-24 00:00:00 2023-03-24 00:00:00 Orders Only Doctor Unassigned, [place] [facility] 1.2.840.114 350.1.13.10 4.2.7.2.686 [id number] [id number] [facility] 2023-03-01 15:43:36 2023-03-01 15:43:36 Outpatient SFA [facility] [id number] [place] 2023-02-22 15:49:00 2023-02-22 19:29:00 Emergency X AD ESPARZA [facility] ERT [id number] [facility] 2023-02-22 15:49:00 2023-02-22 19:29:00 Emergency Ad Esparza [facility] 1.2.840.114 350.1.13.10 4.2.7.2.686 [id number] [facility] 2023-02-09 10:02:54 2023-02-09 10:02:54 Outpatient SFA [facility] [id number] [place] 2022-12-29 15:01:02 2022-12-29 15:01:02 Outpatient SFA [facility] [id number] [place] 2022-12-10 13:47:32 2022-12-10 13:47:32 Outpatient SFA [facility] [id number] [place] 2022-11-10 10:04:11 2022-11-10 10:04:11 Outpatient SFA [facility] [id number] [place] 2022-09-08 08:42:33 2022-09-08 08:42:33 Outpatient SFA [facility] [id number] [place] 2022-08-28 11:58:26 2022-08-28 11:58:26 Outpatient SFA [facility] [id number] [place] 2022-08-26 15:30:00 2022-08-26 15:45:00 Office Visit Dov Fleming [facility] 1.2.840.114 350.1.13.10 4.2.7.2.686 [id number] [facility] 2022-08-26 15:30:00 2022-08-26 15:30:00 Outpatient DOV PEREZ [facility] [id number] [facility] 2022-08-10 09:19:00 2022-08-10 15:20:00 Emergency X BENJAMÍN TAYLOR [facility] ERT [id number] [facility] 2022-08-10 09:19:00 2022-08-10 15:20:00 Emergency Benjamín Taylor Raquel [facility] 1.2.840.114 350.1.13.10 4.2.7.2.686 [id number] [facility] 2022-08-05 09:39:00 2022-08-05 23:59:00 Hospital Encounter Perez Hollins [facility] 1.2.840.114 350.1.13.10 4.2.7.2.686 [id number] [facility] 2022-08-05 00:00:00 2022-08-05 23:59:00 Outpatient R PEREZ HOLLINS [facility] OUT [id number] [facility] 2022-08-05 00:00:00 2022-08-05 00:00:00 Telephone Perez Hollins [facility] 1.2.840.114 350.1.13.10 4.2.7.2.686 [id number] [facility] 2022-08-05 00:00:00 2022-08-05 00:00:00 Orders Only Doctor Unassigned, [place] [facility] 1.2840.114 350.1.13.10 4.2.7.2.686 [id number] [facility] 2022-08-04 00:00:00 2022-08-04 00:00:00 Orders Only Doctor Unassigned, [place] [facility] 1.2840.114 350.1.13.10 4.2.7.2.686 [id number] [facility] 2022-08-03 09:00:00 2022-08-03 09:34:00 Outpatient Richard FLEMING [facility] [id number] [facility] 2022-08-03 09:00:00 2022-08-03 09:15:00 Beater Room Helper Visit Lab, Berny Fleming [facility] 1..840.114 350.1.13.10 4.2.7.2.686 [id number] [facility] 2022-07-30 08:00:00 2022-07-30 08:36:35 Outpatient Richard FLEMING [facility] [id number] [facility] 2022-07-30 08:00:00 2022-07-30 08:36:35 Beater Room Helper Visit Lab, Berny Fleming [facility] 1.2.840.114 350.1.13.10 4.2.7.2.686 [id number] [facility] 2022-07-29 00:00:00 2022-07-29 00:00:00 Telephone Bernadette [facility] 1.840.114 350.1.13.10 4.2.7.2.686 [id number] [facility] 2022-07-28 00:00:00 2022-07-28 00:00:00 Telephone Perez Hollins [facility] [place] 1.2840.114 350.1.13.10 4.2.7.2.686 [id number] [facility] 2022-07-24 10:40:00 2022-07-24 23:59:00 Outpatient R BERNADETTE DOV [facility] [id number] [facility] 2022-07-24 10:00:00 2022-07-24 10:59:56 Office Visit Bernadette Dov [facility] [place] 1.840.114 350.1.13.10 4.2.7.2.686 [id number] [facility] 2022-07-21 00:00:00 2022-07-21 00:00:00 Telephone Fleming Dov [facility] [place] 1.840.114 350.1.13.10 4.2.7.2.686 [id number] [facility] 2022-07-14 00:00:00 2022-07-14 00:00:00 Telephone Melia Philippe KGuillaumeHGuillaume [facility] 1.840.114 350.1.13.10 4.2.7.2.686 [id number] [facility] 2022-07-09 08:35:04 2022-07-09 23:59:00 Hospital Encounter Melia PhilippeHGuillaume [facility] 1.840.114 350.1.13.10 4.2.7.2.686 [id number] [facility] 2022-07-09 08:33:40 2022-07-09 08:34:00 Hospital Encounter Junito Philippecalvin DorisGuillaume [facility] 1.2.840.114 350.1.13.10 4.2.7.2.686 [id number] [facility] 2022-07-09 08:33:23 2022-07-09 08:34:00 Hospital Encounter Melia PhilippeGuillaume [facility] 1.2.840.114 350.1.13.10 4.2.7.2.686 [id number] [facility] 2022-07-09 08:31:24 2022-07-09 08:32:00 Outpatient R MELIA PHILIPPE [facility] [id number] [facility] 2022-07-09 08:00:00 2022-07-09 08:32:00 Hospital Encounter PhilippeJunitocalvin AlstonAmparoGuillaume [facility] 1.2.840.114 350.1.13.10 4.2.7.2.686 [id number] [facility] 2022-06-22 00:00:00 2022-06-22 00:00:00 Perez Salas [facility] 1.2.840.114 350.1.13.10 4.2.7.2.686 [id number] [facility] 2022-06-02 00:00:00 2022-06-02 00:00:00 Outpatient R MELIA PHILIPPE [facility] [id number] [facility] 2022-05-26 08:03:34 2022-05-26 08:03:34 Outpatient [facility] [id number] [place]ni [place] 2022-05-21 00:00:00 2022-05-21 00:00:00 Telephone Melia PhilippeGuillaume [facility] 1.2.840.114 350.1.13.10 4.2.7.2.686 [id number] [facility] 2022-05-19 14:10:36 2022-05-19 23:59:00 Outpatient R MELIA PHILIPPE [facility] [id number] [facility] 2022-05-14 00:00:00 2022-05-14 00:00:00 Orders Only Doctor Unassigned, [place] [facility] 1..840.114 350.1.13.10 4.2.7.2.686 [id number] [facility] 2022-04-24 14:30:00 2022-04-24 15:06:43 Outpatient R MELIA PHILIPPE [facility] [id number] [facility] 2022-04-24 14:30:00 2022-04-24 15:06:43 Office Visit Melia Philippe DorisGuillaume [facility] 1.2.840.114 350.1.13.10 4.2.7.2.686 [id number] [facility] 2022-04-20 14:15:00 2022-04-20 14:58:40 Outpatient R DOV FLEMING [facility] [id number] [facility] 2022-04-20 14:15:00 2022-04-20 14:58:40 Office Visit Dov Fleming [facility] [place] 1.2.840.114 350.1.13.10 4.2.7.2.686 [id number] [facility] 2022-04-17 10:15:00 2022-04-17 10:15:00 Outpatient R DOV FLEMING [facility] [id number] [facility] 2022-04-17 00:00:2022-04-17 00:00:00 Orders Only Doctor Unassigned, [place] [facility] 1.2.840.114 350.1.13.10 4.2.7.2.686 [id number] [facility] 2022-04-17 00:00:00 2022-04-17 00:00:00 Telephone Manpreet Perez Rm [facility] 1.2.840.114 350.1.13.10 4.2.7.2.686 [id number] [facility] 2022-04-06 00:00:00 2022-04-06 00:00:00 Telephone [facility] 1.2.840.114 350.1.13.10 4.2.7.2.686 [id number] [facility] 2022-04-03 08:00:00 2022-04-03 08:30:00 Office Visit Bernadette [facility] 1.2.840.114 350.1.13.10 4.2.7.2.686 [id number] [facility] 2022-04-03 08:00:00 2022-04-03 08:00:00 Outpatient R BERNADETTE DOV [facility] [id number] [facility] 2022-04-03 00:00:00 2022-04-03 00:00:00 Orders Only Doctor Unassigned, [place] [facility] 1.2840.114 350.1.13.10 4.2.7.2.686 [id number] [facility] 2022-03-25 08:24:32 2022-03-25 08:24:32 Outpatient SFA [facility] [id number] [place] 2022-03-25 00:00:00 2022-03-25 00:00:00 Outpatient Visit [id number] fed1-47dd -1w40-47g [id number] ed1-47dd-8 [id number] [id number] 2022-03-23 13:33:40 2022-03-23 13:33:[address] [place] 2022-03-21 00:00:00 2022-03-21 00:00:00 Orders Only Doctor Unassigned, [place] [facility] 1.2.840.114 350.1.13.10 4.2.7.2.686 [id number] [facility] 2022-03-16 09:23:57 2022-03-16 09:23:[address] [place] 2022-03-11 08:55:10 2022-03-11 08:55:[address] [facility] [address] [place] 2022-03-11 00:00:00 2022-03-11 00:00:00 Outpatient Visit [id number] -8666-d37 [id number] 7a4-0s28-8 666-[id number] [id number] 2022-01-19 12:57:51 2022-01-19 12:57:[address] [place] 2022-01-13 00:00:00 2022-01-13 00:00:00 Outpatient Visit [id number]-[id number] -jt3g-586 [id number] 86f-4c1c-b o1a-334wy5 2fec32 2021-12-17 00:00:00 2021-12-17 00:00:00 Outpatient Visit vb35u8v1- i25l-67oi -d486-395 [id number] lu51k6x0-s 23d-48ae-a 515-162f1c [id number] 2021-12-03 00:00:00 2021-12-03 00:00:00 Outpatient Visit [id number] 0cb4-1593 -wp36-m49 [id number] ec2-4664-b e12-h56l20 73dcf7 2020-06-17 00:00:00 2020-06-17 00:00:00 Transition of Care Mihir James 1.2.840.114 350.1.13.10 4.2.7.2.686 [id number] 2020-06-17 00:00:00 2020-06-17 00:00:00 Transition of Care Mihir Jamesy Dinah 1.2.840.114 350.1.13.10 4.2.7.2.686 [id number] [facility] 2020-06-11 10:30:00 2020-06-15 15:18:00 Hospital [facility] 1.2840.114 350.1.13.10 4.2.7.2.686 [id number] 2020-06-11 10:30:00 2020-06-15 15:18:00 Inpatient X CARLITOS URIBE [facility] [id number] [facility] 2020-06-11 10:30:00 2020-06-15 15:18:00 Hospital Encounter Leonarda Nava Rebecca Williams, [facility] 1.2840.114 350.1.13.10 4.2.7.2.686 [id number] [facility] 2020-06-11 00:00:00 2020-06-11 00:00:00 Orders Only Doctor Unassigned, [place] [facility] 1.2.840.114 350.1.13.10 4.2.7.2.686 [id number] 2020-06-11 00:00:00 2020-06-11 00:00:00 Orders Only Doctor Unassigned, [place] [facility] 1.2.840.114 350.1.13.10 4.2.7.2.686 [id number] [facility] Results Test Description Test Time Test Comments Results Result Co mments Source [id number] 00:01:46* Test Item Value Reference Range Interpretation Comme nts NT-proBNP (test code = 63934-6) <=125 Lab Interpretation (test cod e = 16624-9) Normal [facility] [id number] 23:55:40* Test Item Value Reference Range Interpretation Comme nts TROPONIN I (test code = 7491012539) 0.003 ng/mL <=0.034 ISMAEL (test code = [...] of biotin. Lab Interpretation (test code = 67316-9) Normal [facility]OL[facility] PAN[facility] (51494)2023-02-22 23:44:17* Test Item Value Reference Range Interpretation Comme nts NA (test code = 8598391899) 139 mmol/L 135-145 K (test code = 9385672802) 4.1 mmol/L 3.5-5.0 Slight hemolysis CL (test code = 4283999350) 105 mmol/L 98-108 CO2 TOTAL (test code = 9087920880) 23 mmol/L 23-31 AGAP (test code = 1869768528) 11 2-16 BUN (test code = 4326768785) 13 mg/dL 7-23 Slight hemolysis GLUCOSE (test code = 3512552858) 195 mg/dL 70-110 H CREATININE (test code = 0485687006) 0.63 mg/dL 0.50-1.04 TOTAL BILI (test code = 4562824530) 0.4 mg/dL 0.1-1.1 CALCIUM (test code = 5788630684) 9.4 mg/dL 8.6-10.6 T PROTEIN (test code = 5330032775) 8.0 g/dL 6.3-8.2 ALBUMIN (test code = 8933113773) 4.2 g/dL 3.5-5.0 ALK PHOS (test code = 6510695751) 186 U/L 34-122 H Slight hemolysis ALTv (test code = 1742-6) 33 U/L 5-35 AST(SGOT) (test code = 8354731908) 56 U/L 13-40 H Slight hemolysis eGFR (test code = 43945-9) 95.0 mL/min/1.73m2 CKD-EPI eGFR (2020). Assuming creatinine has been stable day-to-day for at least three months, the eGFR indicates Category G1 (>= 90 mL/min/1.73 m2) Lab Interpretation (test code = 04336-3) Abnormal [facility], 25 [id number] 06:48:32* Test Item Value Reference Range Interpretation Comme [facility] VITAMIN D, 25 [place] (test code [...] . . . NG/ML 30-100 TSH, THIRD [id number] 06:28:49* Test Item Value Reference Range Interpretation Comme [facility] TSH, THIRD GENERATION (test code = 2821) 1.860 UIU/ML 0.400-4.100 UNLESS OTHERWISE INDICATED, ALL TESTING PERFORMED AT [facility] [address] [facility] [place] [address] AUTO ENGINE MECHANIC: Nae FABIANIA NUMBER [id number] [facility] [place]. [id number] LIPID [id number] 06:28:23* Test Item Value Reference Range Interpretation [...] SPECIMENS. FOR MOREINFORMATION, SEE CLIENT ANNOUNCEMENT AT [email or web address] RISK RATIO LDL/HDL (test code = 2238) 2.40 RATIO <3.22 COMPREHENSIVE METABOLIC [id number] 06:28:23* Test Item Value Reference Range Interpretation Comme nts GLUCOSE (test code = 2217) 98 MG/DL 70-99 BUN (test code = 2208) 9 MG/DL 8-23 CREATININE (test code = 2214) 0.72 MG/DL 0.60-1.30 eGFR (2020 CKD-EPI) (test co de = 49202) 89 ML/MIN/1.73 >60 CALC BUN/CREAT (test code [...] 102 U/L 40-142 AST (test code = 2218) 40 U/L 9-40 ALT (test code = 2219) 24 U/L 5-40 HEMOGLOBIN [id number] 02:47:53* Test Item Value Reference Range Interpretation Comme nts HEMOGLOBIN A1c (test code = 79749) 7.9 % 4.2-5.6 H [employer] GUIDELINES FOR HGB A1C: [...] OR LABORATORY CONSULTATION. CBC W/AUTO DIFF WITH [id number] 02:27:25* Test Item Value Reference Range Interpretation [...] = 1065) 0.0 /100 WBC'S See_Comment [Automated [employer] ge] The system which generated this result [...] 0.00-0.10 ABS NUCLEATED RBCS (test code = 98299) 0.00 K/UL 0.00-0.11 COMPREHENSIVE METABOLIC [id number] 00:00:00* Test Item Value Reference Range Interpretation Comme nts GLUCOSE (test code = 2217) 98 MG/DL BUN (test code = 2208) 9 MG/DL CREATININE (test code = 2214) 0.72 MG/DL eGFR (2020 CKD-EPI) (test co de = 94508) 89 ML/MIN/1.73 CALC BUN/CREAT (test code = [...] 2219) 24 U/L Lane TafoyaVITAMIN D, 25 [id number] 00:00:00* Test Item Value Reference Range Interpretation Comme nts VITAMIN D, 25 OH (test code = 4958) 31 NG/ML Lane TafoyaTSH, THIRD [id number] 00:00:00* Test Item Value Reference Range Interpretation Comme nts TSH, THIRD GENERATION (test code = 2821) 1.860 UIU/ML Lane TafoyaCBC W/AUTO [id number] 00:00:00* Test Item Value Reference Range Interpretation [...] ABS NUCLEATED RBCS (test cod e = 56147) 0.00 K/UL Lane TafoyaHEMOGLOBIN [id number] 00:00:00* Test Item Value Reference Range Interpretation Comme nts HEMOGLOBIN A1c (test code = 31335) 7.9 % Lane TafoyaLIPID [id number] 00:00:00* Test Item Value Reference Range Interpretation Comme nts CHOLESTEROL (test code = 2210) 182 MG/DL TRIGLYCERIDES (test code = 2232) 237 MG/DL HDL CHOLESTEROL (test code = 2220) 43 MG/DL CALC LDL CHOL (test code = 2237) 103 MG/DL RISK RATIO LDL/HDL (test cod e = 2238) 2.[address] TafoyaCOMPREHENSIVE METABOLIC [id number] 00:00:00* Test Item Value Reference Range Interpretation Comme nts GLUCOSE (test code = 2217) 98 MG/DL BUN (test code = 2208) 9 MG/DL CREATININE (test code = 2214) 0.72 MG/DL eGFR (2020 CKD-EPI) (test co de = 33241) 89 ML/MIN/1.73 CALC BUN/CREAT (test code = [...] 2219) 24 U/L Lane TafoyaVITAMIN D, 25 [id number] 00:00:00* Test Item Value Reference Range Interpretation Comme [facility] VITAMIN D, 25 OH (test code = 4958) 31 NG/ML Lane TafoyaTSH, THIRD [id number] 00:00:00* Test Item Value Reference Range Interpretation Comme [facility] TSH, THIRD GENERATION (test code = 2821) 1.860 UIU/ML Lane TafoyaCBC W/AUTO [id number] 00:00:00* Test Item Value Reference Range Interpretation [...] ABS NUCLEATED RBCS (test cod e = 70430) 0.00 K/UL Lane TafoyaHEMOGLOBIN [id number] 00:00:00* Test Item Value Reference Range Interpretation Comme nts HEMOGLOBIN A1c (test code = 57447) 7.9 % Lane TafoyaLIPID [id number] 00:00:00* Test Item Value Reference Range Interpretation Comme nts CHOLESTEROL (test code = 2210) 182 MG/DL TRIGLYCERIDES (test code = 2232) 237 MG/DL HDL CHOLESTEROL (test code = 2220) 43 MG/DL CALC LDL CHOL (test code = 2237) 103 MG/DL RISK RATIO LDL/HDL (test cod e = 2238) 2.[address] TafoyaCOMPREHENSIVE METABOLIC [id number] 00:00:00* Test Item Value Reference Range Interpretation Comme nts GLUCOSE (test code = 7) 98 MG/DL BUN (test code = 2208) 9 MG/DL CREATININE (test code = 2214) 0.72 MG/DL eGFR (2020 CKD-EPI) (test co de = 54657) 89 ML/MIN/1.73 CALC BUN/CREAT (test code = 2235) 13 RATIO SODIUM (test code = 2231) 139 MEQ/L POTASSIUM (test code = 2228) 4.4 MEQ/L CHLORIDE (test code = 2215) 104 MEQ/L CARBON DIOXIDE (test code = 2206) 23 MEQ/L CALCIUM (test code = 2209) 9.1 MG/DL PROTEIN, TOTAL (test code = 222) 7.5 G/DL ALBUMIN (test code = 220) 4.0 G/DL CALC GLOBULIN (test code = 2240) 3.5 G/DL CALC A/G RATIO (test code = 2234) 1.1 RATIO BILIRUBIN, TOTAL (test code = 2206) 0.3 MG/DL ALKALINE PHOSPHATASE (test code = 4) 102 U/L AST (test code = 2218) 40 U/L ALT (test code = 2219) 24 U/L Lane TafoyaVITAMIN D, 25 [id number] 00:00:00* Test Item Value Reference Range Interpretation Comme nts VITAMIN D, 25 OH (test code = 4958) 31 NG/ML Lane TafoyaTSH, THIRD [id number] 00:00:00* Test Item Value Reference Range Interpretation Comme nts TSH, THIRD GENERATION (test code = 2821) 1.860 UIU/ML Lane TafoyaCBC W/AUTO [id number] 00:00:00* Test Item Value Reference Range Interpretation [...] ABS NUCLEATED RBCS (test cod e = 66236) 0.00 K/UL Lane TafoyaHEMOGLOBIN [id number] 00:00:00* Test Item Value Reference Range Interpretation Comme nts HEMOGLOBIN A1c (test code = 96352) 7.9 % Lane TafoyaLIPID [id number] 00:00:00* Test Item Value Reference Range Interpretation Comme nts CHOLESTEROL (test code = 2210) 182 MG/DL TRIGLYCERIDES (test code = 2232) 237 MG/DL HDL CHOLESTEROL (test code = 2220) 43 MG/DL CALC LDL CHOL (test code = 2237) 103 MG/DL RISK RATIO LDL/HDL (test cod e = 2238) 2.[address] TafoyaCOMPREHENSIVE METABOLIC [id number] 00:00:00* Test Item Value Reference Range Interpretation Comme nts GLUCOSE (test code = 2217) 98 MG/DL BUN (test code = 2208) 9 MG/DL CREATININE (test code = 2214) 0.72 MG/DL eGFR (2020 CKD-EPI) (test co de = 39643) 89 ML/MIN/1.73 CALC BUN/CREAT (test code = 2235) 13 RATIO SODIUM (test code = 2231) 139 MEQ/L POTASSIUM (test code = 2228) 4.4 MEQ/L CHLORIDE (test code = 2215) 104 MEQ/L CARBON DIOXIDE (test code = 6) 23 MEQ/L CALCIUM (test code = 9) 9.1 MG/DL PROTEIN, TOTAL (test code = 2229) 7.5 G/DL ALBUMIN (test code = 2201) 4.0 G/DL CALC GLOBULIN (test code = 2240) 3.5 G/DL CALC A/G RATIO (test code = 4) 1.1 RATIO BILIRUBIN, TOTAL (test code = 2206) 0.3 MG/DL ALKALINE PHOSPHATASE (test code = 2203) 102 U/L AST (test code = 8) 40 U/L ALT (test code = 2218) 24 U/L Lane TafoyaVITAMIN D, 25 [id number] 00:00:00* Test Item Value Reference Range Interpretation Comme [facility] VITAMIN D, 25 OH (test code = 4958) 31 NG/ML Lane TafoyaTSH, THIRD [id number] 00:00:00* Test Item Value Reference Range Interpretation Comme nts TSH, THIRD GENERATION (test code = 2821) 1.860 UIU/ML Lane TafoyaCBC W/AUTO [id number] 00:00:00* Test Item Value Reference Range Interpretation [...] ABS NUCLEATED RBCS (test cod e = 59850) 0.00 K/UL Lane TafoyaHEMOGLOBIN [id number] 00:00:00* Test Item Value Reference Range Interpretation Comme nts HEMOGLOBIN A1c (test code = 92552) 7.9 % Lane TafoyaLIPID [id number] 00:00:00* Test Item Value Reference Range Interpretation Comme nts CHOLESTEROL (test code = 2210) 182 MG/DL TRIGLYCERIDES (test code = 2232) 237 MG/DL HDL CHOLESTEROL (test code = 2220) 43 MG/DL CALC LDL CHOL (test code = 2237) 103 MG/DL RISK RATIO LDL/HDL (test cod e = 2238) 2.[address] TafoyaCOMPREHENSIVE METABOLIC [id number] 00:00:00* Test Item Value Reference Range Interpretation Comme nts GLUCOSE (test code = 2217) 98 MG/DL BUN (test code = 2208) 9 MG/DL CREATININE (test code = 2214) 0.72 MG/DL eGFR (2020 CKD-EPI) (test co de = 23360) 89 ML/MIN/1.73 CALC BUN/CREAT (test code = [...] 2219) 24 U/L Lane TafoyaVITAMIN D, 25 [id number] 00:00:00* Test Item Value Reference Range Interpretation Comme nts VITAMIN D, 25 OH (test code = 4958) 31 NG/ML Lane TafoyaTSH, THIRD [id number] 00:00:00* Test Item Value Reference Range Interpretation Comme nts TSH, THIRD GENERATION (test code = 2821) 1.860 UIU/ML Lane TafoyaCBC W/AUTO [id number] 00:00:00* Test Item Value Reference Range Interpretation [...] ABS NUCLEATED RBCS (test cod e = 13361) 0.00 K/UL Lane TafoyaHEMOGLOBIN [id number] 00:00:00* Test Item Value Reference Range Interpretation Comme nts HEMOGLOBIN A1c (test code = 32433) 7.9 % Lane TafoyaLIPID [id number] 00:00:00* Test Item Value Reference Range Interpretation Comme nts CHOLESTEROL (test code = 2210) 182 MG/DL TRIGLYCERIDES (test code = 2232) 237 MG/DL HDL CHOLESTEROL (test code = 2220) 43 MG/DL CALC LDL CHOL (test code = 2237) 103 MG/DL RISK RATIO LDL/HDL (test cod e = 2238) 2.[address] TafoyaCOMPREHENSIVE METABOLIC [id number] 00:00:00* Test Item Value Reference Range Interpretation Comme nts GLUCOSE (test code = 2217) 98 MG/DL BUN (test code = 2208) 9 MG/DL CREATININE (test code = 2214) 0.72 MG/DL eGFR (2020 CKD-EPI) (test co de = 88268) 89 ML/MIN/1.73 CALC BUN/CREAT (test code = [...] 2219) 24 U/L Lane TafoyaVITAMIN D, 25 [id number] 00:00:00* Test Item Value Reference Range Interpretation Comme [facility] VITAMIN D, 25 OH (test code = 4958) 31 NG/ML Lane TafoyaTSH, THIRD [id number] 00:00:00* Test Item Value Reference Range Interpretation Comme [facility] TSH, THIRD GENERATION (test code = 2821) 1.860 UIU/ML Lane TafoyaCBC W/AUTO [id number] 00:00:00* Test Item Value Reference Range Interpretation [...] ABS NUCLEATED RBCS (test cod e = 60076) 0.00 K/UL Lane TafoyaHEMOGLOBIN [id number] 00:00:00* Test Item Value Reference Range Interpretation Comme nts HEMOGLOBIN A1c (test code = 00887) 7.9 % Lane TafoyaLIPID [id number] 00:00:00* Test Item Value Reference Range Interpretation Comme nts CHOLESTEROL (test code = 2210) 182 MG/DL TRIGLYCERIDES (test code = 2232) 237 MG/DL HDL CHOLESTEROL (test code = 2220) 43 MG/DL CALC LDL CHOL (test code = 2237) 103 MG/DL RISK RATIO LDL/HDL (test cod e = 2238) 2.[address] TafoyaVITAMIN D, 25 [id number] 11:07:15* Test Item Value Reference Range Interpretation [...] TESTING PERFORMED AT [facility] [address] [place] [id number] AUTO ENGINE MECHANIC: CESAR SORIANO M.D. [place] NUMBER [id number] [facility] [place]. [id number] LIPID [id number] 10:07:08* Test Item Value Reference Range Interpretation [...] SPECIMENS. FOR MOREINFORMATION, SEE CLIENT ANNOUNCEMENT AT [email or web address] RISK RATIO LDL/HDL (test code = 2238) 2.41 RATIO <3.22 COMPREHENSIVE METABOLIC [id number] 10:07:08* Test Item Value Reference Range Interpretation Comme nts GLUCOSE (test code = 2217) 140 MG/DL 70-99 H BUN (test code = 2208) 14 MG/DL 8-23 CREATININE (test code = 2214) 0.71 MG/DL 0.60-1.30 eGFR (2020 CKD-EPI) (test code = 37984) 91 ML/MIN/1.73 >60 CALC BUN/CREAT (test code = 2234) 20 RATIO 6-28 SODIUM (test code = 2230) 142 MEQ/L 133-146 POTASSIUM (test code = 2227) 4.0 MEQ/L 3.5-5.4 CHLORIDE (test code = 2214) 105 MEQ/L 95-107 CARBON DIOXIDE (test code = 2205) 24 MEQ/L 19-31 CALCIUM (test code = 2208) 9.0 MG/DL 8.5-10.5 PROTEIN, TOTAL (test code [...] 26 U/L 9-40 ALT (test code = 2218) 18 U/L 5-40 [id number] 09:46:44* Test Item Value Reference Range Interpretation Comme nts MAGNESIUM (test code = 2226) 1.9 MG/DL 1.6-2.6 HEMOGLOBIN [id number] 04:42:50* Test Item Value Reference Range Interpretation Comme nts HEMOGLOBIN A1c (test code = 83264) 8.3 % 4.2-5.6 H [employer] GUIDELINES FOR HGB A1C: [...] OR LABORATORY CONSULTATION. CBC W/AUTO DIFF WITH [id number] 03:59:33* Test Item Value Reference Range Interpretation [...] = 1065) 0.0 /100 WBC'S See_Comment [Automated [employer]] The system which generated this result [...] 0.00-0.10 ABS NUCLEATED RBCS (test code = 91164) 0.00 K/UL 0.00-0.11 COMPREHENSIVE METABOLIC [id number] 00:00:00* Test Item Value Reference Range Interpretation Comme nts GLUCOSE (test code = 2217) 140 MG/DL BUN (test code = 2208) 14 MG/DL CREATININE (test code = 2214) 0.71 MG/DL eGFR (2020 CKD-EPI) (test co de = 12097) 91 ML/MIN/1.73 CALC BUN/CREAT (test code = 2235) 20 RATIO SODIUM (test code = 2231) 142 MEQ/L POTASSIUM (test code = 2228) 4.0 MEQ/L CHLORIDE (test code = 2215) 105 MEQ/L CARBON DIOXIDE (test code = 2206) 24 MEQ/L CALCIUM (test code = 2209) 9.0 MG/DL PROTEIN, TOTAL (test code = 2228) 7.5 G/DL ALBUMIN (test code = 220) 4.3 G/DL CALC GLOBULIN (test code = 2240) 3.2 G/DL CALC A/G RATIO (test code = 2234) 1.3 RATIO BILIRUBIN, TOTAL (test code = 2206) 0.2 MG/DL ALKALINE PHOSPHATASE (test code = 2203) 110 U/L AST (test code = 2218) 26 U/L ALT (test code = 2219) 18 U/L Lane Rajni [id number] 00:00:00* Test Item Value Reference Range Interpretation Comme nts MAGNESIUM (test code = 6) 1.9 MG/DL Lane TafoyaVITAMIN D, 25 [id number] 00:00:00* Test Item Value Reference Range Interpretation Comme [facility] VITAMIN D, 25 OH (test code = 4958) 30 NG/ML Lane Rajni MicheletCBC W/AUTO [id number] 00:00:00* Test Item Value Reference Range Interpretation [...] ABS NUCLEATED RBCS (test cod e = 07094) 0.00 K/UL Lane TafoyaHEMOGLOBIN [id number] 00:00:00* Test Item Value Reference Range Interpretation Comme nts HEMOGLOBIN A1c (test code = 54106) 8.3 % Lane TafoyaLIPID [id number] 00:00:00* Test Item Value Reference Range Interpretation Comme nts CHOLESTEROL (test code = 2210) 182 MG/DL TRIGLYCERIDES (test code = 2232) 197 MG/DL HDL CHOLESTEROL (test code = 2220) 44 MG/DL CALC LDL CHOL (test code = 2237) 106 MG/DL RISK RATIO LDL/HDL (test cod e = 2238) 2.[address] TafoyaCOMPREHENSIVE METABOLIC [id number] 00:00:00* Test Item Value Reference Range Interpretation Comme nts GLUCOSE (test code = 2217) 140 MG/DL BUN (test code = 2208) 14 MG/DL CREATININE (test code = 2214) 0.71 MG/DL eGFR (2020 CKD-EPI) (test co de = 92135) 91 ML/MIN/1.73 CALC BUN/CREAT (test code = [...] (test code = 2219) 18 U/L Lane [id number] 00:00:00* Test Item Value Reference Range Interpretation Comme nts MAGNESIUM (test code = 2226) 1.9 MG/DL Lane TafoyaVITAMIN D, 25 [id number] 00:00:00* Test Item Value Reference Range Interpretation Comme nts VITAMIN D, 25 OH (test code = 4958) 30 NG/ML Lane TafoyaCBC W/AUTO [id number] 00:00:00* Test Item Value Reference Range Interpretation [...] ABS NUCLEATED RBCS (test cod e = 12858) 0.00 K/UL Lane TafoyaHEMOGLOBIN [id number] 00:00:00* Test Item Value Reference Range Interpretation Comme nts HEMOGLOBIN A1c (test code = 12220) 8.3 % Lane TafoyaLIPID [id number] 00:00:00* Test Item Value Reference Range Interpretation Comme nts CHOLESTEROL (test code = 2210) 182 MG/DL TRIGLYCERIDES (test code = 2232) 197 MG/DL HDL CHOLESTEROL (test code = 2220) 44 MG/DL CALC LDL CHOL (test code = 2237) 106 MG/DL RISK RATIO LDL/HDL (test cod e = 2238) 2.[address] TafoyaCOMPREHENSIVE METABOLIC [id number] 00:00:00* Test Item Value Reference Range Interpretation Comme nts GLUCOSE (test code = 2217) 140 MG/DL BUN (test code = 2208) 14 MG/DL CREATININE (test code = 2214) 0.71 MG/DL eGFR (2020 CKD-EPI) (test co de = 80356) 91 ML/MIN/1.73 CALC BUN/CREAT (test code = [...] (test code = 2219) 18 U/L Lane [id number] 00:00:00* Test Item Value Reference Range Interpretation Comme nts MAGNESIUM (test code = 2226) 1.9 MG/DL Lane TafoyaVITAMIN D, 25 [id number] 00:00:00* Test Item Value Reference Range Interpretation Comme nts VITAMIN D, 25 OH (test code = 4958) 30 NG/ML Lane TafoyaCBC W/AUTO [id number] 00:00:00* Test Item Value Reference Range Interpretation [...] ABS NUCLEATED RBCS (test cod e = 06745) 0.00 K/UL Lane TafoyaHEMOGLOBIN [id number] 00:00:00* Test Item Value Reference Range Interpretation Comme nts HEMOGLOBIN A1c (test code = 88879) 8.3 % Lane TafoyaLIPID [id number] 00:00:00* Test Item Value Reference Range Interpretation Comme nts CHOLESTEROL (test code = 2210) 182 MG/DL TRIGLYCERIDES (test code = 2232) 197 MG/DL HDL CHOLESTEROL (test code = 2220) 44 MG/DL CALC LDL CHOL (test code = 2237) 106 MG/DL RISK RATIO LDL/HDL (test cod e = 2238) 2.[address] TafoyaCOMPREHENSIVE METABOLIC [id number] 00:00:00* Test Item Value Reference Range Interpretation Comme nts GLUCOSE (test code = 2217) 140 MG/DL BUN (test code = 2208) 14 MG/DL CREATININE (test code = 2214) 0.71 MG/DL eGFR (2020 CKD-EPI) (test co de = 11363) 91 ML/MIN/1.73 CALC BUN/CREAT (test code = [...] (test code = 2219) 18 U/L Lane [id number] 00:00:00* Test Item Value Reference Range Interpretation Comme nts MAGNESIUM (test code = 2226) 1.9 MG/DL Lane TafoyaVITAMIN D, 25 [id number] 00:00:00* Test Item Value Reference Range Interpretation Comme nts VITAMIN D, 25 OH (test code = 4958) 30 NG/ML Lane TafoyaCBC W/AUTO [id number] 00:00:00* Test Item Value Reference Range Interpretation [...] ABS NUCLEATED RBCS (test cod e = 98191) 0.00 K/UL Lane TafoyaHEMOGLOBIN [id number] 00:00:00* Test Item Value Reference Range Interpretation Comme nts HEMOGLOBIN A1c (test code = 51712) 8.3 % Lane TafoyaLIPID [id number] 00:00:00* Test Item Value Reference Range Interpretation Comme nts CHOLESTEROL (test code = 2210) 182 MG/DL TRIGLYCERIDES (test code = 2232) 197 MG/DL HDL CHOLESTEROL (test code = 2220) 44 MG/DL CALC LDL CHOL (test code = 2237) 106 MG/DL RISK RATIO LDL/HDL (test cod e = 2238) 2.[address] TafoyaCOMPREHENSIVE METABOLIC [id number] 00:00:00* Test Item Value Reference Range Interpretation Comme nts GLUCOSE (test code = 2217) 140 MG/DL BUN (test code = 2208) 14 MG/DL CREATININE (test code = 2214) 0.71 MG/DL eGFR (2020 CKD-EPI) (test co de = 31502) 91 ML/MIN/1.73 CALC BUN/CREAT (test code = [...] (test code = 2219) 18 U/L Lane [id number] 00:00:00* Test Item Value Reference Range Interpretation Comme nts MAGNESIUM (test code = 2226) 1.9 MG/DL Lane TafoyaVITAMIN D, 25 [id number] 00:00:00* Test Item Value Reference Range Interpretation Comme nts VITAMIN D, 25 OH (test code = 4958) 30 NG/ML Lane TafoyaCBC W/AUTO [id number] 00:00:00* Test Item Value Reference Range Interpretation [...] ABS NUCLEATED RBCS (test cod e = 31354) 0.00 K/UL Lane TafoyaHEMOGLOBIN [id number] 00:00:00* Test Item Value Reference Range Interpretation Comme nts HEMOGLOBIN A1c (test code = 98396) 8.3 % Lane TafoyaLIPID [id number] 00:00:00* Test Item Value Reference Range Interpretation Comme nts CHOLESTEROL (test code = 2210) 182 MG/DL TRIGLYCERIDES (test code = 2232) 197 MG/DL HDL CHOLESTEROL (test code = 2220) 44 MG/DL CALC LDL CHOL (test code = 2237) 106 MG/DL RISK RATIO LDL/HDL (test cod e = 2238) 2.[address] TafoyaCOMPREHENSIVE METABOLIC [id number] 00:00:00* Test Item Value Reference Range Interpretation Comme nts GLUCOSE (test code = 2217) 140 MG/DL BUN (test code = 2208) 14 MG/DL CREATININE (test code = 2214) 0.71 MG/DL eGFR (2020 CKD-EPI) (test co de = 13745) 91 ML/MIN/1.73 CALC BUN/CREAT (test code = [...] (test code = 2219) 18 U/L Lane [id number] 00:00:00* Test Item Value Reference Range Interpretation Comme nts MAGNESIUM (test code = 2226) 1.9 MG/DL Lane TafoyaVITAMIN D, 25 [id number] 00:00:00* Test Item Value Reference Range Interpretation Comme [facility] VITAMIN D, 25 OH (test code = 4958) 30 NG/ML Lane TafoyaCBC W/AUTO [id number] 00:00:00* Test Item Value Reference Range Interpretation [...] ABS NUCLEATED RBCS (test cod e = 64472) 0.00 K/UL Lane TafoyaHEMOGLOBIN [id number] 00:00:00* Test Item Value Reference Range Interpretation Comme nts HEMOGLOBIN A1c (test code = 50261) 8.3 % Lane TafoyaLIPID [id number] 00:00:00* Test Item Value Reference Range Interpretation Comme nts CHOLESTEROL (test code = 2210) 182 MG/DL TRIGLYCERIDES (test code = 2232) 197 MG/DL HDL CHOLESTEROL (test code = 2220) 44 MG/DL CALC LDL CHOL (test code = 2237) 106 MG/DL RISK RATIO LDL/HDL (test cod e = 2238) 2.[address] TafoyaCOMP. METABOLIC PANEL ([id number] 16:29:34* Test Item Value Reference Range Interpretation Comme nts NA (test code = 1031311577) 139 mmol/L 135-145 K (test code = 8793056322) 3.8 mmol/L 3.5-5.0 CL (test code = 3580176374) 102 mmol/L 98-108 CO2 TOTAL (test code = 5483042369) 29 mmol/L 23-31 AGAP (test code = 2448786765) 8 2-16 BUN (test code = 0989103101) 6 mg/dL 7-23 L GLUCOSE (test code = 2186674867) 143 mg/dL 70-110 H CREATININE (test code = 7673627510) 0.53 mg/dL 0.50-1.04 TOTAL BILI (test code = 1252139158) 1.0 mg/dL 0.1-1.1 CALCIUM (test code = 1792595526) 8.8 mg/dL 8.6-10.6 T PROTEIN (test code = 9219901955) 8.2 g/dL 6.3-8.2 ALBUMIN (test code = 2921973564) 4.4 g/dL 3.5-5.0 ALK PHOS (test code = 3389711659) 94 U/L 34-122 ALTv (test code = 1742-6) 28 U/L 5-35 AST(SGOT) (test code = 2604651578) 40 U/L 13-40 eGFR (test code = 4817035528) 114.0 mL/min/1.73m2 ISMAEL (test code = ISMAEL) [...] imaging tests). Lab Interpretation (test code = 15531-3) [id number] 16:29:14* Test Item Value Reference Range Interpretation Comme nts LIPASE (test code = 8636935550) 42 U/L 0-220 Lab Interpretation (test cod e = 12039-3) [facility] [id number] 16:24:12* Test Item Value Reference Range Interpretation Comme nts WBC (test code = 6690-2) 9.84 See_Comment [Automated [employer]] The system which generated this result transmitted reference range: 4.30 - 11.10 10*3/?L. The reference range was not used to interpret this result as normal/abnormal. RBC (test code = 789-8) 4.83 See_Comment [Automated messa ge] The system which [...] 32.1 g/dL 31.6-35.1 RDW-SD (test code = 01533-3) 45.4 fL 39.0-49.9 RDW-CV (test code = 788-0) 14.3 % 12.0-15.5 PLT (test code = 777-3) 156 See_Comment L [Automated messa ge] The system which generated this result transmitted reference range: 166 - 358 10*3/?L. The reference range was not used to interpret this result as normal/abnormal. MPV (test code = 35169-0) 12.0 fL 9.5-12.9 NRBC/100 WBC (test code = 0615536776) 0.0 See_Comment [Automated [employer] ssage] The system which generated this result transmitted reference range: 0.0 - 10.0 /100 WBCs. The reference range was not used to interpret this result as normal/abnormal. NRBC x10^3 (test code = 3744520205) See_Comment [Automated messa ge] The system which generated this result transmitted reference range: 10*3/?L. The reference range was not used to interpret this result as normal/abnormal. GRAN MAT (NEUT) % (test code = 770-8) 77.0 % IMM GRAN % (test code = 0978599444) 1.00 % LYMPH % (test code = 736-9) 14.2 % MONO % (test code = 5905-5) 6.7 % EOS % (test code = 713-8) 0.9 % BASO % (test code = 706-2) 0.2 % GRAN MAT x10^3(ANC) (test code = 0760291217) 7.57 10*3/uL 1.88-7.09 H IMM GRAN x10^3 (test code = 3159240628) 0.10 10*3/uL 0.00-0.06 H LYMPH x10^3 (test code = 731-0) 1.40 10*3/uL 1.32-3.29 MONO x10^3 (test code = 742-7) 0.66 10*3/uL 0.33-0.92 EOS x10^3 (test code = 711-2) 0.09 10*3/uL 0.03-0.39 BASO x10^3 (test code = 704-7) 0.01-0.07 Lab Interpretation (test code = 21734-0) Abnormal [facility] WITH [id number] 19:58:11* Test Item Value Reference Range Interpretation Comme nts WBC (test code = 6690-2) 6.21 See_Comment [Automated [employer]] The system which generated this result transmitted reference range: 4.30 - 11.10 10*3/?L. The reference range was not used to interpret this result as normal/abnormal. RBC (test code = 789-8) 4.49 See_Comment [Automated [employer]] The system which generated this result [...] 32.6 g/dL 31.6-35.1 RDW-SD (test code = 65163-9) 44.4 fL 39.0-49.9 RDW-CV (test code = 788-0) 13.9 % 12.0-15.5 PLT (test code = 777-3) 113 See_Comment L [Automated [employer]] The system which generated this result transmitted reference range: 166 - 358 10*3/?L. The reference range was not used to interpret this result as normal/abnormal. MPV (test code = 27230-7) 12.6 fL 9.5-12.9 IPF % (test code = 6039165359) 6.9 % 1.3-7.7 Platelet count measured by fluorescence method. NRBC/100 WBC (test code = 6520307023) 0.0 See_Comment [Automated [employer] ssage] The system which generated this result transmitted reference range: 0.0 - 10.0 /100 WBCs. The reference range was not used to interpret this result as normal/abnormal. NRBC x10^3 (test code = 5942388816) See_Comment [Automated [employer]] The system which generated this result transmitted reference range: 10*3/?L. The reference range was not used to interpret this result as normal/abnormal. GRAN MAT (NEUT) % (test code = 770-8) 68.9 % IMM GRAN % (test code = 7938701963) 1.00 % LYMPH % (test code = 736-9) 19.8 % MONO % (test code = 5905-5) 7.4 % EOS % (test code = 713-8) 2.4 % BASO % (test code = 706-2) 0.5 % GRAN MAT x10^3(ANC) (test code = 3912696178) 4.28 10*3/uL 1.88-7.09 IMM GRAN x10^3 (test code = 1519066559) 0.06 10*3/uL 0.00-0.06 LYMPH x10^3 (test code = 731-0) 1.23 10*3/uL 1.32-3.29 L MONO x10^3 (test code = 742-7) 0.46 10*3/uL 0.33-0.92 EOS x10^3 (test code = 711-2) 0.15 10*3/uL 0.03-0.39 BASO x10^3 (test code = 704-7) 0.03 10*3/uL 0.01-0.07 LG GRAN LYMPHS (test code = 0115571260) Rare Rare GIANT PLATELETS (test code = 5908-9) Present See_Comment A [Automated messa ge] The system which generated this result transmitted reference range: (none). The reference range was not used to interpret this result as normal/abnormal. Lab Interpretation (test code = 23925-5) Abnormal [facility] WITH [id number] 19:58:11* Test Item Value Reference Range Interpretation [...] 32.6 g/dL 31.6-35.1 RDW-SD (test code = 38522-7) 44.4 fL 39.0-49.9 RDW-CV (test code = 788-0) 13.9 % 12.0-15.5 PLT (test code = 777-3) 113 See_Comment L [Automated messa ge] The system which generated this result transmitted reference range: 166 - 358 10*3/?L. The reference range was not used to interpret this result as normal/abnormal. MPV (test code = 63158-4) 12.6 fL 9.5-12.9 IPF % (test code = 3672294625) 6.9 % 1.3-7.7 Platelet count measured by fluorescence method. NRBC/100 WBC (test code = 8070108148) 0.0 See_Comment [Automated [employer] ssage] The system which generated this result transmitted reference range: 0.0 - 10.0 /100 WBCs. The reference range was not used to interpret this result as normal/abnormal. NRBC x10^3 (test code = 7879859150) See_Comment [Automated messa ge] The system which generated this result transmitted reference range: 10*3/?L. The reference range was not used to interpret this result as normal/abnormal. GRAN MAT (NEUT) % (test code = 770-8) 68.9 % IMM GRAN % (test code = 6450445270) 1.00 % LYMPH % (test code = 736-9) 19.8 % MONO % (test code = 5905-5) 7.4 % EOS % (test code = 713-8) 2.4 % BASO % (test code = 706-2) 0.5 % GRAN MAT x10^3(ANC) (test code = 9935300381) 4.28 10*3/uL 1.88-7.09 IMM GRAN x10^3 (test code = 2780114089) 0.06 10*3/uL 0.00-0.06 LYMPH x10^3 (test code = 731-0) 1.23 10*3/uL 1.32-3.29 L MONO x10^3 (test code = 742-7) 0.46 10*3/uL 0.33-0.92 EOS x10^3 (test code = 711-2) 0.15 10*3/uL 0.03-0.39 BASO x10^3 (test code = 704-7) 0.03 10*3/uL 0.01-0.07 LG GRAN LYMPHS (test code = 6376552958) Rare Rare GIANT PLATELETS (test code = 5908-9) Present See_Comment A [Automated messa ge] The system which generated this result transmitted reference range: (none). The reference range was not used to interpret this result as normal/abnormal. Lab Interpretation (test code = 95613-4) Abnormal [facility] WITH [id number] 19:58:11* Test Item Value Reference Range Interpretation [...] 32.6 g/dL 31.6-35.1 RDW-SD (test code = 60865-5) 44.4 fL 39.0-49.9 RDW-CV (test code = 788-0) 13.9 % 12.0-15.5 PLT (test code = 777-3) 113 See_Comment L [Automated messa ge] The system which generated this result transmitted reference range: 166 - 358 10*3/?L. The reference range was not used to interpret this result as normal/abnormal. MPV (test code = 65982-9) 12.6 fL 9.5-12.9 IPF % (test code = 9793755285) 6.9 % 1.3-7.7 Platelet count measured by fluorescence method. NRBC/100 WBC (test code = 1290883521) 0.0 See_Comment [Automated [employer]] The system which generated this result transmitted reference range: 0.0 - 10.0 /100 WBCs. The reference range was not used to interpret this result as normal/abnormal. NRBC x10^3 (test code = 2794977591) See_Comment [Automated messa ge] The system which generated this result transmitted reference range: 10*3/?L. The reference range was not used to interpret this result as normal/abnormal. GRAN MAT (NEUT) % (test code = 770-8) 68.9 % IMM GRAN % (test code = 4049929146) 1.00 % LYMPH % (test code = 736-9) 19.8 % MONO % (test code = 5905-5) 7.4 % EOS % (test code = 713-8) 2.4 % BASO % (test code = 706-2) 0.5 % GRAN MAT x10^3(ANC) (test code = 9332052242) 4.28 10*3/uL 1.88-7.09 IMM GRAN x10^3 (test code = 4389072057) 0.06 10*3/uL 0.00-0.06 LYMPH x10^3 (test code = 731-0) 1.23 10*3/uL 1.32-3.29 L MONO x10^3 (test code = 742-7) 0.46 10*3/uL 0.33-0.92 EOS x10^3 (test code = 711-2) 0.15 10*3/uL 0.03-0.39 BASO x10^3 (test code = 704-7) 0.03 10*3/uL 0.01-0.07 LG GRAN LYMPHS (test code = 8352852550) Rare Rare GIANT PLATELETS (test code = 5908-9) Present See_Comment A [Automated [employer]] The system which generated this result transmitted reference range: (none). The reference range was not used to interpret this result as normal/abnormal. Lab Interpretation (test code = 22575-7) [facility] [id number] 05:16:38* Test Item Value Reference Range Interpretation Comme nts HEMOGLOBIN A1c (test code = 12041) 10.0 % 4.2-5.6 H [employer] GUIDELINES FOR HGB A1C: [...] ETC.). CONSIDER ALTERNATE TESTING OR LABORATORY CONSULTATION. [facility] has important pathology staff changes effective 06/17/2022. New pathology staff will provide uninterrupted, excellent patient care and clinical consultation. See URL: [email or web address]. UNLESS OTHERWISE INDICATED, ALL TESTING PERFORMED AT [facility] [address] [place] [address] CLIA: [id number], CAP: [id number] HEMOGLOBIN [id number] 00:00:00* Test Item Value Reference Range Interpretation Comme nts HEMOGLOBIN A1c (test code = 72518) 10.0 % [address] [facility] [place] [id number] 00:00:00* Test Item Value Reference Range Interpretation Comme nts HEMOGLOBIN A1c (test code = 04539) 10.0 % [address] [facility] [place] [id number] 00:00:00* Test Item Value Reference Range Interpretation Comme nts HEMOGLOBIN A1c (test code = 19460) 10.0 % [address] [facility] [place] [id number] 00:00:00* Test Item Value Reference Range Interpretation Comme nts HEMOGLOBIN A1c (test code = 63618) 10.0 % [address] [facility] [place] [id number] 00:00:00* Test Item Value Reference Range Interpretation Comme nts HEMOGLOBIN A1c (test code = 59399) 10.[address] % [address] [facility] [place] [id number] 00:00:00* Test Item Value Reference Range Interpretation Comme nts HEMOGLOBIN A1c (test code = 91211) 10.[address] % [address] [facility] [place] [id number] 00:00:00* Test Item Value Reference Range Interpretation Comme nts HEMOGLOBIN A1c (test code = 24028) 10.7 % [address] [facility] [place] [id number] 00:00:00* Test Item Value Reference Range Interpretation Comme nts CHOLESTEROL (test code = 2210) 184 MG/DL TRIGLYCERIDES (test code = 2232) 369 MG/DL HDL CHOLESTEROL (test code = 2220) 35 MG/DL CALC LDL CHOL (test code = 2237) 100 MG/DL RISK RATIO LDL/HDL (test cod e = 2238) [address] [facility] [place] [id number] 00:00:00* Test Item Value Reference Range Interpretation Comme nts HEMOGLOBIN A1c (test code = 45979) 10.7 % LIPID [id number] 00:00:00* Test Item Value Reference Range Interpretation Comme nts CHOLESTEROL (test code = 2210) 184 MG/DL TRIGLYCERIDES (test code = 2232) 369 MG/DL HDL CHOLESTEROL (test code = 2220) 35 MG/DL CALC LDL CHOL (test code = 2237) 100 MG/DL RISK RATIO LDL/HDL (test cod e = 2238) 2.86 RATIO HEMOGLOBIN [id number] 00:00:00* Test Item Value Reference Range Interpretation Comme nts HEMOGLOBIN A1c (test code = 32873) 10.[address] % [address] [facility] [place] [id number] 00:00:00* Test Item Value Reference Range Interpretation Comme nts CHOLESTEROL (test code = 2210) 184 MG/DL TRIGLYCERIDES (test code = 2232) 369 MG/DL HDL CHOLESTEROL (test code = 2220) 35 MG/DL CALC LDL CHOL (test code = 2237) 100 MG/DL RISK RATIO LDL/HDL (test cod e = 2238) 2.[address] [facility] [place] [id number] 00:00:00* Test Item Value Reference Range Interpretation Comme nts HEMOGLOBIN A1c (test code = 96077) 10.[address] % [address] [facility] [place] [id number] 00:00:00* Test Item Value Reference Range Interpretation Comme nts CHOLESTEROL (test code = 2210) 184 MG/DL TRIGLYCERIDES (test code = 2232) 369 MG/DL HDL CHOLESTEROL (test code = 2220) 35 MG/DL CALC LDL CHOL (test code = 2237) 100 MG/DL RISK RATIO LDL/HDL (test cod e = 2238) 2.[address] [place]MOGLOBIN [id number] 00:00:00* Test Item Value Reference Range Interpretation Comme nts HEMOGLOBIN A1c (test code = 61214) 10.[address] % [address] [facility] AustinLIPID [id number] 00:00:00* Test Item Value Reference Range Interpretation Comme nts CHOLESTEROL (test code = 2210) 184 MG/DL TRIGLYCERIDES (test code = 2232) 369 MG/DL HDL CHOLESTEROL (test code = 2220) 35 MG/DL CALC LDL CHOL (test code = 2237) 100 MG/DL RISK RATIO LDL/HDL (test cod e = 2238) 2.[address] [facility] [place]HEMOGLOBIN [id number] 00:00:00* Test Item Value Reference Range Interpretation Comme nts HEMOGLOBIN A1c (test code = 85788) 10.[address] % [address] [facility] AustinLIPID [id number] 00:00:00* Test Item Value Reference Range Interpretation Comme nts CHOLESTEROL (test code = 2210) 184 MG/DL TRIGLYCERIDES (test code = 2232) 369 MG/DL HDL CHOLESTEROL (test code = 2220) 35 MG/DL CALC LDL CHOL (test code = 2237) 100 MG/DL RISK RATIO LDL/HDL (test cod e = 2238) 2.[address] [facility] [place]HEMOGLOBIN [id number] 00:00:00* Test Item Value Reference Range Interpretation Comme nts HEMOGLOBIN A1c (test code = 25010) 10.[address] % [address] [facility] AustinLIPID [id number] 00:00:00* Test Item Value Reference Range Interpretation Comme nts CHOLESTEROL (test code = 2210) 184 MG/DL TRIGLYCERIDES (test code = 2232) 369 MG/DL HDL CHOLESTEROL (test code = 2220) 35 MG/DL CALC LDL CHOL (test code = 2237) 100 MG/DL RISK RATIO LDL/HDL (test cod e = 2238) 2.[address] [id number] 06:10:48* Test Item Value Reference Range Interpretation Comme nts AMYLASE (test code = 2205) 74 U/L 28-100 [id number] 06:10:48* Test Item Value Reference Range Interpretation Comme nts LIPASE (test code = 2058) 18 U/L 13-60 C-REACTIVE [id number] 06:10:48* Test Item Value Reference Range Interpretation Comme nts C-REACTIVE PROTEIN (test code = 3513) 1.6 MG/DL <0.5 H UNLESS OTHERW ISE INDICATED, ALL TESTING PERFORMED ATCLINICAL PATHOLOGY [employer] [address] [place] [address] [employer] MECHANIC: DAVID GUALLPA M.D. CLIA NUMBER [id number] [facility] [place]. [id number] COMPREHENSIVE METABOLIC [id number] 05:50:31* Test Item Value Reference Range Interpretation Comme nts GLUCOSE (test code = 2217) 294 MG/DL 70-99 H BUN (test code = 2207) 11 MG/DL 8-23 CREATININE (test code = 2213) 0.73 MG/DL 0.60-1.30 eGFR (2020 CKD-EPI) (test code = 46780) 88 ML/MIN/1.73 >60 CALC BUN/CREAT (test code = 2234) 15 RATIO 6-28 SODIUM (test code = 2230) 133 MEQ/L 133-146 POTASSIUM (test code = 222) 4.9 MEQ/L 3.5-5.4 CHLORIDE (test code = 2214) 94 MEQ/L 95-107 L CARBON DIOXIDE (test code = 2205) 28 MEQ/L 19-31 CALCIUM (test code = 2208) 9.6 MG/DL [...] normal/abnormal. ALKALINE PHOSPHATASE (test code = 2203) 161 U/L 40-142 H AST (test code = 2217) 45 U/L 9-40 H ALT (test code = 2219) 32 U/L 5-40 SEDIMENTATION [id number] 03:50:19* Test Item Value Reference Range Interpretation Comme nts SEDIMENTATION RATE (test cod e = 1017) 13 MM/HOUR 0-20 CBC W/AUTO DIFF WITH [id number] 02:37:15* Test Item Value Reference Range Interpretation [...] = 1065) 0.0 /100 WBC'S See_Comment [Automated [employer]] The system which generated this result [...] 0.00-0.10 ABS NUCLEATED RBCS (test code = 16288) 0.00 K/UL 0.00-0.11 [id number] 00:00:00* Test Item Value Reference Range Interpretation Comme nts LIPASE (test code = 2057) 18 U/L Lane F AustinSEDIMENTATION [id number] 00:00:00* Test Item Value Reference Range Interpretation Comme nts SEDIMENTATION RATE (test cod e = 1017) 13 MM/HOUR Lane Rajni MicheletC-REACTIVE [id number] 00:00:00* Test Item Value Reference Range Interpretation Comme nts C-REACTIVE PROTEIN (test cod e = 3513) 1.6 MG/DL Lane TafoyaCBC W/AUTO [id number] 00:00:00* Test Item Value Reference Range Interpretation [...] ABS NUCLEATED RBCS (test cod e = 88311) 0.00 K/UL Lane TafoyaCOMPREHENSIVE METABOLIC [id number] 00:00:00* Test Item Value Reference Range Interpretation Comme nts GLUCOSE (test code = 2217) 294 MG/DL BUN (test code = 2208) 11 MG/DL CREATININE (test code = 2214) 0.73 MG/DL eGFR (2020 CKD-EPI) (test co de = 05755) 88 ML/MIN/1.73 CALC BUN/CREAT (test code = [...] code = 2218) 32 U/L Lane Urban [id number] 00:00:00* Test Item Value Reference Range Interpretation Comme nts AMYLASE (test code = 2204) 74 U/L Lane Urban [id number] 00:00:00* Test Item Value Reference Range Interpretation Comme nts LIPASE (test code = 2057) 18 U/L Lane TafoyaSEDIMENTATION [id number] 00:00:00* Test Item Value Reference Range Interpretation Comme nts SEDIMENTATION RATE (test cod e = 1017) 13 MM/HOUR Lane TafoyaC-REACTIVE [id number] 00:00:00* Test Item Value Reference Range Interpretation Comme nts C-REACTIVE PROTEIN (test cod e = 3513) 1.6 MG/DL Lane TaofyaCBC W/AUTO [id number] 00:00:00* Test Item Value Reference Range Interpretation [...] ABS NUCLEATED RBCS (test cod e = 17582) 0.00 K/UL COMPREHENSIVE METABOLIC [id number] 00:00:00* Test Item Value Reference Range Interpretation Comme nts GLUCOSE (test code = 2217) 294 MG/DL BUN (test code = 2208) 11 MG/DL CREATININE (test code = 2214) 0.73 MG/DL eGFR (2020 CKD-EPI) (test co de = 82383) 88 ML/MIN/1.73 CALC BUN/CREAT (test code = [...] ALT (test code = 2219) 32 U/L [id number] 00:00:00* Test Item Value Reference Range Interpretation Comme nts AMYLASE (test code = 2205) 74 U/L [id number] 00:00:00* Test Item Value Reference Range Interpretation Comme nts LIPASE (test code = 2058) 18 U/L SEDIMENTATION [id number] 00:00:00* Test Item Value Reference Range Interpretation Comme nts SEDIMENTATION RATE (test cod e = 1017) 13 MM/HOUR C-REACTIVE [id number] 00:00:00* Test Item Value Reference Range Interpretation Comme nts C-REACTIVE PROTEIN (test cod e = 3513) 1.6 MG/DL CBC W/AUTO [id number] 00:00:00* Test Item Value Reference Range Interpretation [...] ABS NUCLEATED RBCS (test cod e = 95255) 0.00 K/UL COMPREHENSIVE METABOLIC [id number] 00:00:00* Test Item Value Reference Range Interpretation Comme nts GLUCOSE (test code = 2217) 294 MG/DL BUN (test code = 2208) 11 MG/DL CREATININE (test code = 2214) 0.73 MG/DL eGFR (2020 CKD-EPI) (test co de = 87070) 88 ML/MIN/1.73 CALC BUN/CREAT (test code = [...] 1.2 RATIO BILIRUBIN, TOTAL (test code = 7) 0.4 MG/DL ALKALINE PHOSPHATASE (test code = 4) 161 U/L AST (test code = 2217) 45 U/L ALT (test code = 221) 32 U/L [id number] 00:00:00* Test Item Value Reference Range Interpretation Comme nts AMYLASE (test code = 5) 74 U/L [id number] 00:00:00* Test Item Value Reference Range Interpretation Comme nts LIPASE (test code = 2057) 18 U/L SEDIMENTATION [id number] 00:00:00* Test Item Value Reference Range Interpretation Comme nts SEDIMENTATION RATE (test cod e = 1017) 13 MM/HOUR C-REACTIVE [id number] 00:00:00* Test Item Value Reference Range Interpretation Comme nts C-REACTIVE PROTEIN (test cod e = 3513) 1.6 MG/DL CBC W/AUTO [id number] 00:00:00* Test Item Value Reference Range Interpretation [...] ABS NUCLEATED RBCS (test cod e = 81391) 0.00 K/UL Lane TafoyaCOMPREHENSIVE METABOLIC [id number] 00:00:00* Test Item Value Reference Range Interpretation Comme nts GLUCOSE (test code = 2217) 294 MG/DL BUN (test code = 2208) 11 MG/DL CREATININE (test code = 2214) 0.73 MG/DL eGFR (2020 CKD-EPI) (test co de = 48612) 88 ML/MIN/1.73 CALC BUN/CREAT (test code = [...] code = 2219) 32 U/L Lane Urban [id number] 00:00:00* Test Item Value Reference Range Interpretation Comme nts AMYLASE (test code = 2205) 74 U/L Lane Urban [id number] 00:00:00* Test Item Value Reference Range Interpretation Comme nts LIPASE (test code = 2058) 18 U/L Lane [facility] AustinSEDIMENTATION [id number] 00:00:00* Test Item Value Reference Range Interpretation Comme nts SEDIMENTATION RATE (test cod e = 1017) 13 MM/HOUR Lane TafoyaC-REACTIVE [id number] 00:00:00* Test Item Value Reference Range Interpretation Comme nts C-REACTIVE PROTEIN (test cod e = 3513) 1.6 MG/DL Lane TafoyaCBC W/AUTO [id number] 00:00:00* Test Item Value Reference Range Interpretation [...] ABS NUCLEATED RBCS (test cod e = 00804) 0.00 K/UL Lane TafoyaCOMPREHENSIVE METABOLIC [id number] 00:00:00* Test Item Value Reference Range Interpretation Comme nts GLUCOSE (test code = 2217) 294 MG/DL BUN (test code = 2208) 11 MG/DL CREATININE (test code = 2214) 0.73 MG/DL eGFR (2020 CKD-EPI) (test co de = 31028) 88 ML/MIN/1.73 CALC BUN/CREAT (test code = [...] code = 2219) 32 U/L Lane Urban [id number] 00:00:00* Test Item Value Reference Range Interpretation Comme nts AMYLASE (test code = 2205) 74 U/L Lane Urban [id number] 00:00:00* Test Item Value Reference Range Interpretation Comme nts LIPASE (test code = 2057) 18 U/L Lane Urban AustinSEDIMENTATION [id number] 00:00:00* Test Item Value Reference Range Interpretation Comme nts SEDIMENTATION RATE (test cod e = 1017) 13 MM/HOUR Lane Urban AustinC-REACTIVE [id number] 00:00:00* Test Item Value Reference Range Interpretation Comme nts C-REACTIVE PROTEIN (test cod e = 3513) 1.6 MG/DL Lane TafoyaCBC W/AUTO [id number] 00:00:00* Test Item Value Reference Range Interpretation [...] ABS NUCLEATED RBCS (test cod e = 78350) 0.00 K/UL Lane TafoyaCOMPREHENSIVE METABOLIC [id number] 00:00:00* Test Item Value Reference Range Interpretation Comme nts GLUCOSE (test code = 2217) 294 MG/DL BUN (test code = 2208) 11 MG/DL CREATININE (test code = 2214) 0.73 MG/DL eGFR (2020 CKD-EPI) (test co de = 58718) 88 ML/MIN/1.73 CALC BUN/CREAT (test code = [...] 1.2 RATIO BILIRUBIN, TOTAL (test code = 7) 0.4 MG/DL ALKALINE PHOSPHATASE (test code = 4) 161 U/L AST (test code = 8) 45 U/L ALT (test code = 2218) 32 U/L Lane Urban [id number] 00:00:00* Test Item Value Reference Range Interpretation Comme nts AMYLASE (test code = 2204) 74 U/L Lane Urban [id number] 00:00:00* Test Item Value Reference Range Interpretation Comme nts LIPASE (test code = 2057) 18 U/L [address] [facility] AustinSEDIMENTATION [id number] 00:00:00* Test Item Value Reference Range Interpretation Comme nts SEDIMENTATION RATE (test cod e = 1017) 13 MM/HOUR Lane TafoyaC-REACTIVE [id number] 00:00:00* Test Item Value Reference Range Interpretation Comme nts C-REACTIVE PROTEIN (test cod e = 3513) 1.6 MG/DL Lane TafoyaCBC W/AUTO [id number] 00:00:00* Test Item Value Reference Range Interpretation [...] ABS NUCLEATED RBCS (test cod e = 96734) 0.00 K/UL Lane TafoyaCOMPREHENSIVE METABOLIC [id number] 00:00:00* Test Item Value Reference Range Interpretation Comme nts GLUCOSE (test code = 2217) 294 MG/DL BUN (test code = 2208) 11 MG/DL CREATININE (test code = 2214) 0.73 MG/DL eGFR (2020 CKD-EPI) (test co de = 70036) 88 ML/MIN/1.73 CALC BUN/CREAT (test code = [...] (test code = 2219) 32 U/L Lane [id number] 00:00:00* Test Item Value Reference Range Interpretation Comme nts AMYLASE (test code = 2205) 74 U/L Lane [id number] 00:00:00* Test Item Value Reference Range Interpretation Comme nts LIPASE (test code = 2058) 18 U/L Lane TafoyaSEDIMENTATION [id number] 00:00:00* Test Item Value Reference Range Interpretation Comme nts SEDIMENTATION RATE (test cod e = 1017) 13 MM/HOUR Lane TafoyaC-REACTIVE [id number] 00:00:00* Test Item Value Reference Range Interpretation Comme nts C-REACTIVE PROTEIN (test cod e = 3513) 1.6 MG/DL Lane TafoyaCBC W/AUTO [id number] 00:00:00* Test Item Value Reference Range Interpretation [...] ABS NUCLEATED RBCS (test cod e = 33953) 0.00 K/UL Lane TafoyaCOMPREHENSIVE METABOLIC [id number] 00:00:00* Test Item Value Reference Range Interpretation Comme nts GLUCOSE (test code = 7) 294 MG/DL BUN (test code = 2208) 11 MG/DL CREATININE (test code = 2214) 0.73 MG/DL eGFR (2020 CKD-EPI) (test co de = 08698) 88 ML/MIN/1.73 CALC BUN/CREAT (test code = [...] 1.2 RATIO BILIRUBIN, TOTAL (test code = 7) 0.4 MG/DL ALKALINE PHOSPHATASE (test code = 2204) 161 U/L AST (test code = 2218) 45 U/L ALT (test code = 2219) 32 U/L Lane [id number] 00:00:00* Test Item Value Reference Range Interpretation Comme [facility] AMYLASE (test code = 5) 74 U/L Lane TafoyaVITAMIN D, 25 [id number] 08:57:52* Test Item Value Reference Range Interpretation Comme [facility] VITAMIN D, 25 OH (test code [...] ALL TESTING PERFORMED [facility] [address] [place] [address] AUT[employer] ENGINE MECHANIC: DAVID GUALLPA M.D. CLIA NUMBER [id number] [facility] [place]. [id number] COMPREHENSIVE METABOLIC [id number] 08:43:08* Test Item Value Reference Range Interpretation Comme nts GLUCOSE (test code = 2217) 269 MG/DL 70-99 H BUN (test code = 220) 11 MG/DL 8-23 CREATININE (test code = 221) 0.89 MG/DL 0.60-1.30 eGFR (2020 CKD-EPI) (test code = 92728) 70 ML/MIN/1.73 >60 CALC BUN/CREAT (test code = 2235) 12 RATIO 6-28 SODIUM (test code = 223) 139 MEQ/L 133-146 POTASSIUM (test code = 2228) 4.2 MEQ/L 3.5-5.4 CHLORIDE (test code = 2215) 101 MEQ/L 95-107 CARBON DIOXIDE (test code = 2206) 24 MEQ/L 19-31 CALCIUM (test code = 2209) 9.1 MG/DL 8.5-10.5 PROTEIN, TOTAL (test code = 222) 7.8 G/DL 6.1-8.3 ALBUMIN (test code = 2201) 4.5 G/DL 3.5-5.2 CALC GLOBULIN (test code = 2240) 3.3 G/DL 1.9-3.7 CALC A/G RATIO (test code = 2234) 1.4 RATIO 1.0-2.6 BILIRUBIN, TOTAL (test code = 2207) 0.3 MG/DL See_Comment [Automated me ssage] The system which generated this result transmitted reference range: <=1.2. The reference range was not used to interpret this result as normal/abnormal. ALKALINE PHOSPHATASE (test code = 2204) 133 U/L 40-142 AST (test code = 2218) 33 U/L 9-40 ALT (test code = 2219) 18 U/L 5-40 LIPID [id number] 08:43:08* Test Item Value Reference Range Interpretation Comme nts CHOLESTEROL (test code = 2210) 193 MG/DL <200 TRIGLYCERIDES (test code = 2232) 261 MG/DL <150 H HDL CHOLESTEROL (test code = 2220) 45 MG/DL >39 CALC LDL CHOL (test code = 2237) 111 MG/DL <100 H NOTE: CALCULATED LDL IS BASED ON YIMI-VEGA METHOD WHICHINCLUDES ADJUSTABLE TRIGLYCERIDE:VLDL CHOLESTEROL RATIO.THIS FACTOR VARIES BY MEASURED TRIGLYCERIDE AND NON-HDLCHOLESTEROL CONCENTRATIONS WITH INCREASED CALCULATED LDL SEENIN HIGHER TRIGLYCERIDE OR LOWER NON-HDL SPECIMENS. FOR MOREINFORMATION, SEE CLIENT ANNOUNCEMENT AT [email or web address] RISK RATIO LDL/HDL (test code = 2238) 2.47 RATIO <3.22 HEMOGLOBIN [id number] 03:03:09* Test Item Value Reference Range Interpretation Comme nts HEMOGLOBIN A1c (test code = 35043) 9.3 % 4.2-5.6 H [employer] GUIDELINES FOR HGB A1C: [...] OR LABORATORY CONSULTATION. CBC W/AUTO DIFF WITH [id number] 02:21:47* Test Item Value Reference Range Interpretation [...] = 1065) 0.0 /100 WBC'S See_Comment [Automated [employer]] The system which generated this result [...] 0.00-0.10 ABS NUCLEATED RBCS (test code = 39814) 0.00 K/UL 0.00-0.11 HEMOGLOBIN [id number] 00:00:00* Test Item Value Reference Range Interpretation Comme nts HEMOGLOBIN A1c (test code = 23728) 9.3 % Lane TafoyaVITAMIN D, 25 [id number] 00:00:00* Test Item Value Reference Range Interpretation Comme nts VITAMIN D, 25 OH (test code = 4958) 16 NG/ML Lane TafoyaCBC W/AUTO [id number] 00:00:00* Test Item Value Reference Range Interpretation [...] ABS NUCLEATED RBCS (test cod e = 50391) 0.00 K/UL Lane TafoyaCOMPREHENSIVE METABOLIC [id number] 00:00:00* Test Item Value Reference Range Interpretation Comme nts GLUCOSE (test code = 2217) 269 MG/DL BUN (test code = 2208) 11 MG/DL CREATININE (test code = 2214) 0.89 MG/DL eGFR (2020 CKD-EPI) (test co de = 07339) 70 ML/MIN/1.73 CALC BUN/CREAT (test code = [...] code = 2219) 18 U/L Lane TafoyaLIPID [id number] 00:00:00* Test Item Value Reference Range Interpretation Comme nts CHOLESTEROL (test code = 2210) 193 MG/DL TRIGLYCERIDES (test code = 2232) 261 MG/DL HDL CHOLESTEROL (test code = 2220) 45 MG/DL CALC LDL CHOL (test code = 2237) 111 MG/DL RISK RATIO LDL/HDL (test cod e = 2238) 2.[address] TafoyaHEMOGLOBIN [id number] 00:00:00* Test Item Value Reference Range Interpretation Comme [facility] HEMOGLOBIN A1c (test code = 00285) 9.3 % Lane TafoyaVITAMIN D, 25 [id number] 00:00:00* Test Item Value Reference Range Interpretation Comme mitali VITAMIN D, 25 OH (test code = 4958) 16 NG/ML Lane TafoyaCBC W/AUTO [id number] 00:00:00* Test Item Value Reference Range Interpretation [...] ABS NUCLEATED RBCS (test cod e = 76550) 0.00 K/UL COMPREHENSIVE METABOLIC [id number] 00:00:00* Test Item Value Reference Range Interpretation Comme nts GLUCOSE (test code = 2217) 269 MG/DL BUN (test code = 2208) 11 MG/DL CREATININE (test code = 2214) 0.89 MG/DL eGFR (2020 CKD-EPI) (test co de = 07717) 70 ML/MIN/1.73 CALC BUN/CREAT (test code = [...] (test code = 2219) 18 U/L LIPID [id number] 00:00:00* Test Item Value Reference Range Interpretation Comme nts CHOLESTEROL (test code = 2210) 193 MG/DL TRIGLYCERIDES (test code = 2232) 261 MG/DL HDL CHOLESTEROL (test code = 2220) 45 MG/DL CALC LDL CHOL (test code = 2237) 111 MG/DL RISK RATIO LDL/HDL (test cod e = 2238) 2.47 RATIO HEMOGLOBIN [id number] 00:00:00* Test Item Value Reference Range Interpretation Comme nts HEMOGLOBIN A1c (test code = 17482) 9.3 % VITAMIN D, 25 [id number] 00:00:00* Test Item Value Reference Range Interpretation Comme nts VITAMIN D, 25 OH (test code = 4958) 16 NG/ML CBC W/AUTO [id number] 00:00:00* Test Item Value Reference Range Interpretation [...] ABS NUCLEATED RBCS (test cod e = 96232) 0.00 K/UL COMPREHENSIVE METABOLIC [id number] 00:00:00* Test Item Value Reference Range Interpretation Comme nts GLUCOSE (test code = 2217) 269 MG/DL BUN (test code = 2208) 11 MG/DL CREATININE (test code = 2214) 0.89 MG/DL eGFR (2020 CKD-EPI) (test co de = 83991) 70 ML/MIN/1.73 CALC BUN/CREAT (test code = [...] (test code = 2219) 18 U/L LIPID [id number] 00:00:00* Test Item Value Reference Range Interpretation Comme nts CHOLESTEROL (test code = 2210) 193 MG/DL TRIGLYCERIDES (test code = 2232) 261 MG/DL HDL CHOLESTEROL (test code = 2220) 45 MG/DL CALC LDL CHOL (test code = 2237) 111 MG/DL RISK RATIO LDL/HDL (test cod e = 2238) 2.47 RATIO HEMOGLOBIN [id number] 00:00:00* Test Item Value Reference Range Interpretation Comme [facility] HEMOGLOBIN A1c (test code = 90239) 9.3 % VITAMIN D, 25 [id number] 00:00:00* Test Item Value Reference Range Interpretation Comme [facility] VITAMIN D, 25 OH (test code = 4958) 16 NG/ML CBC W/AUTO [id number] 00:00:00* Test Item Value Reference Range Interpretation [...] ABS NUCLEATED RBCS (test cod e = 75428) 0.00 K/UL Lane TafoyaCBC W/AUTO [id number] 00:00:00* Test Item Value Reference Range Interpretation [...] ABS NUCLEATED RBCS (test cod e = 13425) 0.00 K/UL COMPREHENSIVE METABOLIC [id number] 00:00:00* Test Item Value Reference Range Interpretation Comme nts GLUCOSE (test code = 2217) 269 MG/DL BUN (test code = 2208) 11 MG/DL CREATININE (test code = 2214) 0.89 MG/DL eGFR (2020 CKD-EPI) (test co de = 43011) 70 ML/MIN/1.73 CALC BUN/CREAT (test code = [...] (test code = 2219) 18 U/L LIPID [id number] 00:00:00* Test Item Value Reference Range Interpretation Comme nts CHOLESTEROL (test code = 2210) 193 MG/DL TRIGLYCERIDES (test code = 2232) 261 MG/DL HDL CHOLESTEROL (test code = 2220) 45 MG/DL CALC LDL CHOL (test code = 2237) 111 MG/DL RISK RATIO LDL/HDL (test cod e = 2238) 2.47 RATIO HEMOGLOBIN [id number] 00:00:00* Test Item Value Reference Range Interpretation Comme nts HEMOGLOBIN A1c (test code = 25205) 9.3 % VITAMIN D, 25 [id number] 00:00:00* Test Item Value Reference Range Interpretation Comme nts VITAMIN D, 25 OH (test code = 4958) 16 NG/ML CBC W/AUTO [id number] 00:00:00* Test Item Value Reference Range Interpretation [...] ABS NUCLEATED RBCS (test cod e = 84167) 0.00 K/UL COMPREHENSIVE METABOLIC [id number] 00:00:00* Test Item Value Reference Range Interpretation Comme nts GLUCOSE (test code = 2217) 269 MG/DL BUN (test code = 2208) 11 MG/DL CREATININE (test code = 2214) 0.89 MG/DL eGFR (2020 CKD-EPI) (test co de = 22961) 70 ML/MIN/1.73 CALC BUN/CREAT (test code = [...] (test code = 2219) 18 U/L LIPID [id number] 00:00:00* Test Item Value Reference Range Interpretation Comme nts CHOLESTEROL (test code = 2210) 193 MG/DL TRIGLYCERIDES (test code = 2232) 261 MG/DL HDL CHOLESTEROL (test code = 2220) 45 MG/DL CALC LDL CHOL (test code = 2237) 111 MG/DL RISK RATIO LDL/HDL (test cod e = 2238) 2.47 RATIO HEMOGLOBIN [id number] 00:00:00* Test Item Value Reference Range Interpretation Comme nts HEMOGLOBIN A1c (test code = 42565) 9.3 % VITAMIN D, 25 [id number] 00:00:00* Test Item Value Reference Range Interpretation Comme nts VITAMIN D, 25 OH (test code = 4958) 16 NG/ML CBC W/AUTO [id number] 00:00:00* Test Item Value Reference Range Interpretation [...] ABS NUCLEATED RBCS (test cod e = 28844) 0.00 K/UL COMPREHENSIVE METABOLIC [id number] 00:00:00* Test Item Value Reference Range Interpretation Comme nts GLUCOSE (test code = 2217) 269 MG/DL BUN (test code = 2208) 11 MG/DL CREATININE (test code = 2214) 0.89 MG/DL eGFR (2020 CKD-EPI) (test co de = 55889) 70 ML/MIN/1.73 CALC BUN/CREAT (test code = [...] (test code = 2219) 18 U/L LIPID [id number] 00:00:00* Test Item Value Reference Range Interpretation Comme nts CHOLESTEROL (test code = 2210) 193 MG/DL TRIGLYCERIDES (test code = 2232) 261 MG/DL HDL CHOLESTEROL (test code = 2220) 45 MG/DL CALC LDL CHOL (test code = 2237) 111 MG/DL RISK RATIO LDL/HDL (test cod e = 2238) 2.47 RATIO HEMOGLOBIN [id number] 00:00:00* Test Item Value Reference Range Interpretation Comme [facility] HEMOGLOBIN A1c (test code = 57145) 9.3 % VITAMIN D, 25 [id number] 00:00:00* Test Item Value Reference Range Interpretation Comme nts VITAMIN D, 25 OH (test code = 4958) 16 NG/ML COMPREHENSIVE METABOLIC [id number] 00:00:00* Test Item Value Reference Range Interpretation Comme nts GLUCOSE (test code = 2217) 269 MG/DL BUN (test code = 2208) 11 MG/DL CREATININE (test code = 2214) 0.89 MG/DL eGFR (2020 CKD-EPI) (test co de = 15990) 70 ML/MIN/1.73 CALC BUN/CREAT (test code = [...] code = 2219) 18 U/L Lane TafoyaLIPID [id number] 00:00:00* Test Item Value Reference Range Interpretation Comme nts CHOLESTEROL (test code = 2210) 193 MG/DL TRIGLYCERIDES (test code = 2232) 261 MG/DL HDL CHOLESTEROL (test code = 2220) 45 MG/DL CALC LDL CHOL (test code = 2237) 111 MG/DL RISK RATIO LDL/HDL (test cod e = 2238) 2.[address] TafoyaHEMOGLOBIN [id number] 00:00:00* Test Item Value Reference Range Interpretation Comme nts HEMOGLOBIN A1c (test code = 87037) 9.3 % [address] TafoyaVITAMIN D, 25 [id number] 00:00:00* Test Item Value Reference Range Interpretation Comme nts VITAMIN D, 25 OH (test code = 4958) 16 NG/ML [facility]letCBC W/AUTO [id number] 00:00:00* Test Item Value Reference Range Interpretation [...] ABS NUCLEATED RBCS (test cod e = 76186) 0.00 K/UL Lane Rajni AustinCOMPREHENSIVE METABOLIC [id number] 00:00:00* Test Item Value Reference Range Interpretation Comme nts GLUCOSE (test code = 2217) 269 MG/DL BUN (test code = 2208) 11 MG/DL CREATININE (test code = 2214) 0.89 MG/DL eGFR (2020 CKD-EPI) (test co de = 13384) 70 ML/MIN/1.73 CALC BUN/CREAT (test code = [...] code = 2219) 18 U/L Lane TafoyaLIPID [id number] 00:00:00* Test Item Value Reference Range Interpretation Comme nts CHOLESTEROL (test code = 2210) 193 MG/DL TRIGLYCERIDES (test code = 2232) 261 MG/DL HDL CHOLESTEROL (test code = 2220) 45 MG/DL CALC LDL CHOL (test code = 2237) 111 MG/DL RISK RATIO LDL/HDL (test cod e = 2238) 2.[address] TafoyaHEMOGLOBIN [id number] 00:00:00* Test Item Value Reference Range Interpretation Comme [facility] HEMOGLOBIN A1c (test code = 95459) 9.3 % [address] TafoyaVITAMIN D, 25 [id number] 00:00:00* Test Item Value Reference Range Interpretation Comme [facility] VITAMIN D, 25 OH (test code = 4958) 16 NG/ML Lane TafoyaCBC W/AUTO [id number] 00:00:00* Test Item Value Reference Range Interpretation Comme [facility] WBC (test code = 1001) 8.5 K/UL [...] ABS NUCLEATED RBCS (test cod e = [address]) 0.00 K/UL [address] Urban MicheletCOMPREHENSIVE METABOLIC [id number] 00:00:00* Test Item Value Reference Range Interpretation Comme nts GLUCOSE (test code = 2217) 269 MG/DL BUN (test code = 2208) 11 MG/DL CREATININE (test code = 2214) 0.89 MG/DL eGFR (2020 CKD-EPI) (test co de = 10121) 70 ML/MIN/1.73 CALC BUN/CREAT (test code = [...] code = 2219) 18 U/L Lane Urban AustinLIPID [id number] 00:00:00* Test Item Value Reference Range Interpretation Comme nts CHOLESTEROL (test code = 2210) 193 MG/DL TRIGLYCERIDES (test code = 2232) 261 MG/DL HDL CHOLESTEROL (test code = 2220) 45 MG/DL CALC LDL CHOL (test code = 2237) 111 MG/DL RISK RATIO LDL/HDL (test cod e = 2238) 2.[address] TafoyaHEMOGLOBIN [id number] 00:00:00* Test Item Value Reference Range Interpretation Comme mitali HEMOGLOBIN A1c (test code = 42305) 9.3 % [address] TafoyaVITAMIN D, 25 [id number] 00:00:00* Test Item Value Reference Range Interpretation Comme mitali VITAMIN D, 25 OH (test code = 4958) 16 NG/ML Lnae TafoyaCBC W/AUTO [id number] 00:00:00* Test Item Value Reference Range Interpretation [...] ABS NUCLEATED RBCS (test cod e = 22620) 0.00 K/UL [address] TafoyaCOMPREHENSIVE METABOLIC [id number] 00:00:00* Test Item Value Reference Range Interpretation Comme nts GLUCOSE (test code = 2217) 269 MG/DL BUN (test code = 2208) 11 MG/DL CREATININE (test code = 2214) 0.89 MG/DL eGFR (2020 CKD-EPI) (test co de = 41839) 70 ML/MIN/1.73 CALC BUN/CREAT (test code = [...] code = 2219) 18 U/L Lane TafoyaLIPID [id number] 00:00:00* Test Item Value Reference Range Interpretation Comme nts CHOLESTEROL (test code = 2210) 193 MG/DL TRIGLYCERIDES (test code = 2232) 261 MG/DL HDL CHOLESTEROL (test code = 2220) 45 MG/DL CALC LDL CHOL (test code = 2237) 111 MG/DL RISK RATIO LDL/HDL (test cod e = 2238) 2.[address] TafoyaHEMOGLOBIN [id number] 00:00:00* Test Item Value Reference Range Interpretation Comme nts HEMOGLOBIN A1c (test code = 98231) 9.3 % [address] TafoyaVITAMIN D, 25 [id number] 00:00:00* Test Item Value Reference Range Interpretation Comme nts VITAMIN D, 25 OH (test code = 4958) 16 NG/ML Lane Urban MicheletCBC W/AUTO [id number] 00:00:00* Test Item Value Reference Range Interpretation [...] ABS NUCLEATED RBCS (test cod e = 56066) 0.00 K/UL Lane F MicheletCOMPREHENSIVE METABOLIC [id number] 00:00:00* Test Item Value Reference Range Interpretation Comme nts GLUCOSE (test code = 2217) 269 MG/DL BUN (test code = 2208) 11 MG/DL CREATININE (test code = 2214) 0.89 MG/DL eGFR (2020 CKD-EPI) (test co de = 76223) 70 ML/MIN/1.73 CALC BUN/CREAT (test code = [...] code = 2219) 18 U/L Lane TafoyaLIPID [id number] 00:00:00* Test Item Value Reference Range Interpretation Comme nts CHOLESTEROL (test code = 2210) 193 MG/DL TRIGLYCERIDES (test code = 2232) 261 MG/DL HDL CHOLESTEROL (test code = 2220) 45 MG/DL CALC LDL CHOL (test code = 2237) 111 MG/DL RISK RATIO LDL/HDL (test cod e = 2238) 2.[address] TafoyaCOMPREHENSIVE METABOLIC [id number] 05:43:08* Test Item Value Reference Range Interpretation Comme nts GLUCOSE (test code = 2217) 117 MG/DL 70-99 H BUN (test code = 2208) 16 MG/DL 8-23 CREATININE (test code = 2214) 0.77 MG/DL 0.60-1.30 eGFR (2020 CKD-EPI) (test code = 30244) 83 ML/MIN/1.73 >60 CALC BUN/CREAT (test code = 2235) 21 RATIO 6-28 SODIUM (test code = 2231) 142 MEQ/L 133-146 POTASSIUM (test code = 2228) 4.4 MEQ/L 3.5-5.4 CHLORIDE (test code = 2215) 105 MEQ/L 95-107 CARBON DIOXIDE (test code = 2206) 17 MEQ/L 19-31 L CALCIUM (test code = 2209) 9.6 MG/DL 8.5-10.5 PROTEIN, TOTAL (test code = 2229) 8.2 G/DL 6.1-8.3 ALBUMIN (test code = 2201) 4.5 G/DL 3.5-5.2 CALC GLOBULIN (test code = 2240) 3.7 G/DL 1.9-3.7 CALC A/G RATIO (test code = 2234) 1.2 RATIO 1.0-2.6 BILIRUBIN, TOTAL (test code = 2207) 0.4 MG/DL See_Comment [Automated me ssage] The system which generated this result transmitted reference range: <=1.2. The reference range was not used to interpret this result as normal/abnormal. ALKALINE PHOSPHATASE (test code = 4) 113 U/L 40-142 AST (test code = 2218) 39 U/L 9-40 ALT (test code = 2219) 18 U/L 5-40 LIPID [id number] 05:43:08* Test Item Value Reference Range Interpretation Comme nts CHOLESTEROL (test code = 2210) 180 MG/DL <200 TRIGLYCERIDES (test code = 2232) 142 MG/DL <150 HDL CHOLESTEROL (test code = 2220) 42 MG/DL >39 CALC LDL CHOL (test code = 7) 113 MG/DL <100 H NOTE: CALCULATED LDL IS BASED ON YIMI-VEGA METHOD WHICHINCLUDES ADJUSTABLE TRIGLYCERIDE:VLDL CHOLESTEROL RATIO.THIS FACTOR VARIES BY MEASURED TRIGLYCERIDE AND NON-HDLCHOLESTEROL CONCENTRATIONS WITH INCREASED CALCULATED LDL SEENIN HIGHER TRIGLYCERIDE OR LOWER NON-HDL SPECIMENS. FOR MOREINFORMATION, SEE CLIENT ANNOUNCEMENT AT [email or web address] RISK RATIO LDL/HDL (test code = 2238) 2.69 RATIO <3.22 HEMOGLOBIN [id number] 03:36:34* Test Item Value Reference Range Interpretation Comme nts HEMOGLOBIN A1c (test code = 32476) 8.2 % 4.2-5.6 H [employer] GUIDELINES FOR HGB A1C: [...] OR LABORATORY CONSULTATION. CBC W/AUTO DIFF WITH [id number] 03:15:01* Test Item Value Reference Range Interpretation [...] 0.00-0.10 ABS NUCLEATED RBCS (test code = 19201) 0.00 K/UL 0.00-0.11 UNLESS OTHER TERRAZAS INDICATED, ALL TESTING PERFORMED [facility] [address] [place] [id number] AUTO ENGINE MECHANIC: DAVID GUALLPA M.D. CLIA NUMBER [id number] [place]. [id number] CBC W/AUTO [id number] 00:00:00* Test Item Value Reference Range Interpretation [...] ABS NUCLEATED RBCS (test cod e = 09342) 0.00 K/UL Lane TafoyaHEMOGLOBIN [id number] 00:00:00* Test Item Value Reference Range Interpretation Comme nts HEMOGLOBIN A1c (test code = 77956) 8.2 % [address] F MicheletCOMPREHENSIVE METABOLIC [id number] 00:00:00* Test Item Value Reference Range Interpretation Comme nts GLUCOSE (test code = 2217) 117 MG/DL BUN (test code = 2208) 16 MG/DL CREATININE (test code = 2214) 0.77 MG/DL eGFR (2020 CKD-EPI) (test co de = 13108) 83 ML/MIN/1.73 CALC BUN/CREAT (test code = [...] code = 2219) 18 U/L Lane TafoyaLIPID [id number] 00:00:00* Test Item Value Reference Range Interpretation Comme nts CHOLESTEROL (test code = 2210) 180 MG/DL TRIGLYCERIDES (test code = 2232) 142 MG/DL HDL CHOLESTEROL (test code = 2220) 42 MG/DL CALC LDL CHOL (test code = 2237) 113 MG/DL RISK RATIO LDL/HDL (test cod e = 2238) 2.[address] TafoyaCBC W/AUTO [id number] 00:00:00* Test Item Value Reference Range Interpretation [...] ABS NUCLEATED RBCS (test cod e = 14739) 0.00 K/UL [address] Urban AustinHEMOGLOBIN [id number] 00:00:00* Test Item Value Reference Range Interpretation Comme nts HEMOGLOBIN A1c (test code = 67889) 8.2 % COMPREHENSIVE METABOLIC [id number] 00:00:00* Test Item Value Reference Range Interpretation Comme nts GLUCOSE (test code = 2217) 117 MG/DL BUN (test code = 2208) 16 MG/DL CREATININE (test code = 2214) 0.77 MG/DL eGFR (2020 CKD-EPI) (test co de = 08814) 83 ML/MIN/1.73 CALC BUN/CREAT (test code = [...] (test code = 2219) 18 U/L LIPID [id number] 00:00:00* Test Item Value Reference Range Interpretation Comme nts CHOLESTEROL (test code = 2210) 180 MG/DL TRIGLYCERIDES (test code = 2232) 142 MG/DL HDL CHOLESTEROL (test code = 2220) 42 MG/DL CALC LDL CHOL (test code = 2237) 113 MG/DL RISK RATIO LDL/HDL (test cod e = 2238) 2.69 RATIO CBC W/AUTO [id number] 00:00:00* Test Item Value Reference Range Interpretation [...] ABS NUCLEATED RBCS (test cod e = 53236) 0.00 K/UL HEMOGLOBIN [id number] 00:00:00* Test Item Value Reference Range Interpretation Comme nts HEMOGLOBIN A1c (test code = 82222) 8.2 % COMPREHENSIVE METABOLIC [id number] 00:00:00* Test Item Value Reference Range Interpretation Comme nts GLUCOSE (test code = 2217) 117 MG/DL BUN (test code = 2208) 16 MG/DL CREATININE (test code = 2214) 0.77 MG/DL eGFR (2020 CKD-EPI) (test co de = 40474) 83 ML/MIN/1.73 CALC BUN/CREAT (test code = [...] (test code = 2219) 18 U/L LIPID [id number] 00:00:00* Test Item Value Reference Range Interpretation Comme nts CHOLESTEROL (test code = 2210) 180 MG/DL TRIGLYCERIDES (test code = 2232) 142 MG/DL HDL CHOLESTEROL (test code = 2220) 42 MG/DL CALC LDL CHOL (test code = 2237) 113 MG/DL RISK RATIO LDL/HDL (test cod e = 2238) 2.69 RATIO CBC W/AUTO [id number] 00:00:00* Test Item Value Reference Range Interpretation [...] ABS NUCLEATED RBCS (test cod e = 65905) 0.00 K/UL HEMOGLOBIN [id number] 00:00:00* Test Item Value Reference Range Interpretation Comme nts HEMOGLOBIN A1c (test code = 88640) 8.2 % COMPREHENSIVE METABOLIC [id number] 00:00:00* Test Item Value Reference Range Interpretation Comme nts GLUCOSE (test code = 2217) 117 MG/DL BUN (test code = 2208) 16 MG/DL CREATININE (test code = 2214) 0.77 MG/DL eGFR (2020 CKD-EPI) (test co de = 24592) 83 ML/MIN/1.73 CALC BUN/CREAT (test code = [...] (test code = 2219) 18 U/L HEMOGLOBIN [id number] 00:00:00* Test Item Value Reference Range Interpretation Comme nts HEMOGLOBIN A1c (test code = 86119) 8.2 % [address] F AustinLIPID [id number] 00:00:00* Test Item Value Reference Range Interpretation Comme nts CHOLESTEROL (test code = 2210) 180 MG/DL TRIGLYCERIDES (test code = 2232) 142 MG/DL HDL CHOLESTEROL (test code = 2220) 42 MG/DL CALC LDL CHOL (test code = 2237) 113 MG/DL RISK RATIO LDL/HDL (test cod e = 2238) 2.69 RATIO CBC W/AUTO [id number] 00:00:00* Test Item Value Reference Range Interpretation [...] ABS NUCLEATED RBCS (test cod e = 18099) 0.00 K/UL HEMOGLOBIN [id number] 00:00:00* Test Item Value Reference Range Interpretation Comme nts HEMOGLOBIN A1c (test code = 27758) 8.2 % COMPREHENSIVE METABOLIC [id number] 00:00:00* Test Item Value Reference Range Interpretation Comme nts GLUCOSE (test code = 2217) 117 MG/DL BUN (test code = 2208) 16 MG/DL CREATININE (test code = 2214) 0.77 MG/DL eGFR (2020 CKD-EPI) (test co de = 89387) 83 ML/MIN/1.73 CALC BUN/CREAT (test code = [...] (test code = 2219) 18 U/L LIPID [id number] 00:00:00* Test Item Value Reference Range Interpretation Comme nts CHOLESTEROL (test code = 2210) 180 MG/DL TRIGLYCERIDES (test code = 2232) 142 MG/DL HDL CHOLESTEROL (test code = 2220) 42 MG/DL CALC LDL CHOL (test code = 2237) 113 MG/DL RISK RATIO LDL/HDL (test cod e = 2238) 2.69 RATIO CBC W/AUTO [id number] 00:00:00* Test Item Value Reference Range Interpretation [...] ABS NUCLEATED RBCS (test cod e = 60349) 0.00 K/UL HEMOGLOBIN [id number] 00:00:00* Test Item Value Reference Range Interpretation Comme nts HEMOGLOBIN A1c (test code = 66349) 8.2 % COMPREHENSIVE METABOLIC [id number] 00:00:00* Test Item Value Reference Range Interpretation Comme nts GLUCOSE (test code = 2217) 117 MG/DL BUN (test code = 2208) 16 MG/DL CREATININE (test code = 2214) 0.77 MG/DL eGFR (2020 CKD-EPI) (test co de = 46037) 83 ML/MIN/1.73 CALC BUN/CREAT (test code = [...] (test code = 2219) 18 U/L LIPID [id number] 00:00:00* Test Item Value Reference Range Interpretation Comme nts CHOLESTEROL (test code = 2210) 180 MG/DL TRIGLYCERIDES (test code = 2232) 142 MG/DL HDL CHOLESTEROL (test code = 2220) 42 MG/DL CALC LDL CHOL (test code = 2237) 113 MG/DL RISK RATIO LDL/HDL (test cod e = 2238) 2.69 RATIO CBC W/AUTO [id number] 00:00:00* Test Item Value Reference Range Interpretation [...] ABS NUCLEATED RBCS (test cod e = 84758) 0.00 K/UL COMPREHENSIVE METABOLIC [id number] 00:00:00* Test Item Value Reference Range Interpretation Comme nts GLUCOSE (test code = 2217) 117 MG/DL BUN (test code = 2208) 16 MG/DL CREATININE (test code = 2214) 0.77 MG/DL eGFR (2020 CKD-EPI) (test co de = 76188) 83 ML/MIN/1.73 CALC BUN/CREAT (test code = [...] code = 2219) 18 U/L Lane TafoyaLIPID [id number] 00:00:00* Test Item Value Reference Range Interpretation Comme nts CHOLESTEROL (test code = 2210) 180 MG/DL TRIGLYCERIDES (test code = 2232) 142 MG/DL HDL CHOLESTEROL (test code = 2220) 42 MG/DL CALC LDL CHOL (test code = 2237) 113 MG/DL RISK RATIO LDL/HDL (test cod e = 2238) 2.[address] Rajni MicheletCBC W/AUTO [id number] 00:00:00* Test Item Value Reference Range Interpretation [...] ABS NUCLEATED RBCS (test cod e = 04505) 0.00 K/UL Lane TafoyaHEMOGLOBIN [id number] 00:00:00* Test Item Value Reference Range Interpretation Comme nts HEMOGLOBIN A1c (test code = 93838) 8.2 % Lane TafoyaCOMPREHENSIVE METABOLIC [id number] 00:00:00* Test Item Value Reference Range Interpretation Comme nts GLUCOSE (test code = 2217) 117 MG/DL BUN (test code = 2208) 16 MG/DL CREATININE (test code = 2214) 0.77 MG/DL eGFR (2020 CKD-EPI) (test co de = 52075) 83 ML/MIN/1.73 CALC BUN/CREAT (test code = [...] code = 2219) 18 U/L Lane TafoyaLIPID [id number] 00:00:00* Test Item Value Reference Range Interpretation Comme nts CHOLESTEROL (test code = 2210) 180 MG/DL TRIGLYCERIDES (test code = 2232) 142 MG/DL HDL CHOLESTEROL (test code = 2220) 42 MG/DL CALC LDL CHOL (test code = 2237) 113 MG/DL RISK RATIO LDL/HDL (test cod e = 2238) 2.[address] TafoyaCBC W/AUTO [id number] 00:00:00* Test Item Value Reference Range Interpretation [...] ABS NUCLEATED RBCS (test cod e = 12211) 0.00 K/UL [address] TafoyaHEMOGLOBIN [id number] 00:00:00* Test Item Value Reference Range Interpretation Comme nts HEMOGLOBIN A1c (test code = 34779) 8.2 % Lane TafoyaCOMPREHENSIVE METABOLIC [id number] 00:00:00* Test Item Value Reference Range Interpretation Comme nts GLUCOSE (test code = 2217) 117 MG/DL BUN (test code = 2208) 16 MG/DL CREATININE (test code = 2214) 0.77 MG/DL eGFR (2020 CKD-EPI) (test co de = 74757) 83 ML/MIN/1.73 CALC BUN/CREAT (test code = [...] code = 2219) 18 U/L Lane TafoyaLIPID [id number] 00:00:00* Test Item Value Reference Range Interpretation Comme nts CHOLESTEROL (test code = 2210) 180 MG/DL TRIGLYCERIDES (test code = 2232) 142 MG/DL HDL CHOLESTEROL (test code = 2220) 42 MG/DL CALC LDL CHOL (test code = 2237) 113 MG/DL RISK RATIO LDL/HDL (test cod e = 2238) 2.[address] TafoyaCBC W/AUTO [id number] 00:00:00* Test Item Value Reference Range Interpretation [...] ABS NUCLEATED RBCS (test cod e = 24992) 0.00 K/UL [address] Urban MicheletHEMOGLOBIN [id number] 00:00:00* Test Item Value Reference Range Interpretation Comme nts HEMOGLOBIN A1c (test code = 98278) 8.2 % [address] Urban MicheletCOMPREHENSIVE METABOLIC [id number] 00:00:00* Test Item Value Reference Range Interpretation Comme nts GLUCOSE (test code = 2217) 117 MG/DL BUN (test code = 2208) 16 MG/DL CREATININE (test code = 2214) 0.77 MG/DL eGFR (2020 CKD-EPI) (test co de = 39241) 83 ML/MIN/1.73 CALC BUN/CREAT (test code = [...] code = 2219) 18 U/L Lane TafoyaLIPID [id number] 00:00:00* Test Item Value Reference Range Interpretation Comme nts CHOLESTEROL (test code = 2210) 180 MG/DL TRIGLYCERIDES (test code = 2232) 142 MG/DL HDL CHOLESTEROL (test code = 2220) 42 MG/DL CALC LDL CHOL (test code = 2237) 113 MG/DL RISK RATIO LDL/HDL (test cod e = 2238) 2.[address] TafoyaCBC W/AUTO [id number] 00:00:00* Test Item Value Reference Range Interpretation [...] ABS NUCLEATED RBCS (test cod e = 62893) 0.00 K/UL Lane TafoyaHEMOGLOBIN [id number] 00:00:00* Test Item Value Reference Range Interpretation Comme nts HEMOGLOBIN A1c (test code = 66310) 8.2 % Lane TafoyaCOMPREHENSIVE METABOLIC [id number] 00:00:00* Test Item Value Reference Range Interpretation Comme nts GLUCOSE (test code = 2217) 117 MG/DL BUN (test code = 2208) 16 MG/DL CREATININE (test code = 2214) 0.77 MG/DL eGFR (2020 CKD-EPI) (test co de = 45065) 83 ML/MIN/1.73 CALC BUN/CREAT (test code = [...] code = 2219) 18 U/L Lane TafoyaLIPID [id number] 00:00:00* Test Item Value Reference Range Interpretation Comme nts CHOLESTEROL (test code = 2210) 180 MG/DL TRIGLYCERIDES (test code = 2232) 142 MG/DL HDL CHOLESTEROL (test code = 2220) 42 MG/DL CALC LDL CHOL (test code = 2237) 113 MG/DL RISK RATIO LDL/HDL (test cod e = 2238) 2.[address] Urban Kelli, [id number] 13:08:15SPECIMEN NUMBER: [id number] CULTURE, ROUTINE SPECIMEN NUMBER: [id number] SPECIMEN COMMENT: L 1ST TOE SOURCE: TOE [...] SENSITIVE 2OXACILLIN RESISTANT >2PIP/TAZOBAC SENSITIVE <=16RIFAMPIN SENSITIVE < =1TETRACYCLINE SENSITIVE <=1TOBRAMYCIN SENSITIVE <=4TRIMETH/SULFA SENSITIVE 2/38VANCOMYCIN SENSITIVE 1 NOTE: NUMBERS DISPLAYED REPRESENT MINIMUM INHIBITORY CONCENTRATION (JEIMY) WHICH IS EXPRESSED IN MCG/ML. UNLESS OTHERWISE INDICATED, ALL TESTING PERFORMED [facility] [address] [place] [address] AUTO ENGINE MECHANIC: DAVID GUALLPA M.D. [place] NUMBER [id number]. [id number], [id number] 00:00:00* Test Item Value Reference Range Interpretation Comme nts CULTURE, ROUTINE (test code = 84278) SPECIMEN NUMBER: [id number] Lane Pereira, [id number] 00:00:00* Test Item Value Reference Range Interpretation Comme nts CULTURE, ROUTINE (test code = 73422) SPECIMEN NUMBER: [id number] CULTURE, [id number] 00:00:00* Test Item Value Reference Range Interpretation Comme nts CULTURE, ROUTINE (test code = 72667) SPECIMEN NUMBER: [id number] CULTURE, [id number] 00:00:00* Test Item Value Reference Range Interpretation Comme nts CULTURE, ROUTINE (test code = 02654) SPECIMEN NUMBER: [id number] CULTURE, [id number] 00:00:00* Test Item Value Reference Range Interpretation Comme nts CULTURE, ROUTINE (test code = 79657) SPECIMEN NUMBER: [id number] Lane TafoyaCULTURE, [id number] 00:00:00* Test Item Value Reference Range Interpretation Comme nts CULTURE, ROUTINE (test code = 24814) SPECIMEN NUMBER: [id number] CULTURE, [id number] 00:00:00* Test Item Value Reference Range Interpretation Comme nts CULTURE, ROUTINE (test code = 79144) SPECIMEN NUMBER: [id number] CULTURE, [id number] 00:00:00* Test Item Value Reference Range Interpretation Comme nts CULTURE, ROUTINE (test code = 42833) SPECIMEN NUMBER: [id number] Lane TafoyaCULTURE, [id number] 00:00:00* Test Item Value Reference Range Interpretation Comme nts CULTURE, ROUTINE (test code = 18387) SPECIMEN NUMBER: [id number] Lane SpannLTRASHAWN, [id number] 00:00:00* Test Item Value Reference Range Interpretation Comme nts CULTURE, ROUTINE (test code = 35057) SPECIMEN NUMBER: [id number] Lane SpannLTRASHAWN, [id number] 00:00:00* Test Item Value Reference Range Interpretation Comme nts CULTURE, ROUTINE (test code = 89693) SPECIMEN NUMBER: [id number] Lane TafoyaCBC W/AUTO [id number] 00:00:00* Test Item Value Reference Range Interpretation [...] ABS NUCLEATED RBCS (test cod e = 51427) 0.00 K/UL Lane Urban [id number] 00:00:00* Test Item Value Reference Range Interpretation Comme nts AMYLASE (test code = 2205) 107 U/L Lane [id number] 00:00:00* Test Item Value Reference Range Interpretation Comme nts LIPASE (test code = 2058) 21 U/L Lane TafoyaCBC W/AUTO [id number] 00:00:00* Test Item Value Reference Range Interpretation [...] ABS NUCLEATED RBCS (test cod e = 21742) 0.00 K/UL Lane Urban [id number] 00:00:00* Test Item Value Reference Range Interpretation Comme nts AMYLASE (test code = 2205) 107 U/L [id number] 00:00:00* Test Item Value Reference Range Interpretation Comme nts AMYLASE (test code = 2205) 107 U/L aLne Urban [id number] 00:00:00* Test Item Value Reference Range Interpretation Comme nts LIPASE (test code = 2058) 21 U/L CBC W/AUTO [id number] 00:00:00* Test Item Value Reference Range Interpretation [...] ABS NUCLEATED RBCS (test cod e = 38708) 0.00 K/UL [id number] 00:00:00* Test Item Value Reference Range Interpretation Comme nts AMYLASE (test code = 2205) 107 U/L [id number] 00:00:00* Test Item Value Reference Range Interpretation Comme nts LIPASE (test code = 2057) 21 U/L CBC W/AUTO [id number] 00:00:00* Test Item Value Reference Range Interpretation [...] ABS NUCLEATED RBCS (test cod e = 58440) 0.00 K/UL [id number] 00:00:00* Test Item Value Reference Range Interpretation Comme nts AMYLASE (test code = 2205) 107 U/L [id number] 00:00:00* Test Item Value Reference Range Interpretation Comme nts LIPASE (test code = 2057) 21 U/L CBC W/AUTO [id number] 00:00:00* Test Item Value Reference Range Interpretation [...] ABS NUCLEATED RBCS (test cod e = 28643) 0.00 K/UL [id number] 00:00:00* Test Item Value Reference Range Interpretation Comme nts AMYLASE (test code = 2205) 107 U/L [id number] 00:00:00* Test Item Value Reference Range Interpretation Comme nts LIPASE (test code = 2058) 21 U/L CBC W/AUTO [id number] 00:00:00* Test Item Value Reference Range Interpretation [...] ABS NUCLEATED RBCS (test cod e = 41638) 0.00 K/UL [id number] 00:00:00* Test Item Value Reference Range Interpretation Comme nts AMYLASE (test code = 2205) 107 U/L [id number] 00:00:00* Test Item Value Reference Range Interpretation Comme nts LIPASE (test code = 2058) 21 U/L CBC W/AUTO [id number] 00:00:00* Test Item Value Reference Range Interpretation [...] ABS NUCLEATED RBCS (test cod e = 55041) 0.00 K/UL [id number] 00:00:00* Test Item Value Reference Range Interpretation Comme nts LIPASE (test code = 2058) 21 U/L Lane Urban MicheletCBC W/AUTO [id number] 00:00:00* Test Item Value Reference Range Interpretation [...] ABS NUCLEATED RBCS (test cod e = 90466) 0.00 K/UL Lane Urban [id number] 00:00:00* Test Item Value Reference Range Interpretation Comme nts AMYLASE (test code = 2205) 107 U/L Lane Urban [id number] 00:00:00* Test Item Value Reference Range Interpretation Comme nts LIPASE (test code = 2058) 21 U/L Lane TafoyaCBC W/AUTO [id number] 00:00:00* Test Item Value Reference Range Interpretation [...] ABS NUCLEATED RBCS (test cod e = 59653) 0.00 K/UL Lane Urban [id number] 00:00:00* Test Item Value Reference Range Interpretation Comme nts AMYLASE (test code = 2205) [address] [place] [id number] 00:00:00* Test Item Value Reference Range Interpretation Comme nts LIPASE (test code = 2057) [address] [place]af[place]CBC W/AUTO [id number] 00:00:00* Test Item Value Reference Range Interpretation [...] ABS NUCLEATED RBCS (test cod e = 53070) [address] [place] [id number] 00:00:00* Test Item Value Reference Range Interpretation Comme nts AMYLASE (test code = 2205) [address] [place] [id number] 00:00:00* Test Item Value Reference Range Interpretation Comme nts LIPASE (test code = 2057) [address] [place]CBC W/AUTO [id number] 00:00:00* Test Item Value Reference Range Interpretation [...] ABS NUCLEATED RBCS (test cod e = 53258) [address] [place] [id number] 00:00:00* Test Item Value Reference Range Interpretation Comme nts AMYLASE (test code = 5) [address] [place] [id number] 00:00:00* Test Item Value Reference Range Interpretation Comme nts LIPASE (test code = 2057) [address] [place]afoyaHEMOGLOBIN [id number] 00:00:00* Test Item Value Reference Range Interpretation Comme nts HEMOGLOBIN A1c (test code = 99797) [address] [place] [id number] 00:00:00* Test Item Value Reference Range Interpretation Comme nts HEMOGLOBIN A1c (test code = 36117) 9.5 % HEMOGLOBIN [id number] 00:00:00* Test Item Value Reference Range Interpretation Comme nts HEMOGLOBIN A1c (test code = 66528) 9.5 % HEMOGLOBIN [id number] 00:00:00* Test Item Value Reference Range Interpretation Comme nts HEMOGLOBIN A1c (test code = 19725) 9.5 % HEMOGLOBIN [id number] 00:00:00* Test Item Value Reference Range Interpretation Comme nts HEMOGLOBIN A1c (test code = 37955) 9.5 % HEMOGLOBIN [id number] 00:00:00* Test Item Value Reference Range Interpretation Comme nts HEMOGLOBIN A1c (test code = 08481) 9.5 % HEMOGLOBIN [id number] 00:00:00* Test Item Value Reference Range Interpretation Comme nts HEMOGLOBIN A1c (test code = 57140) [address] [place] [id number] 00:00:00* Test Item Value Reference Range Interpretation Comme nts HEMOGLOBIN A1c (test code = 69082) [address] [place] [id number] 00:00:00* Test Item Value Reference Range Interpretation Comme nts HEMOGLOBIN A1c (test code = 62828) [address] [place] [id number] 00:00:00* Test Item Value Reference Range Interpretation Comme nts HEMOGLOBIN A1c (test code = 46236) 9.[address] % [address] Urban AustinHEMOGLOBIN [id number] 00:00:00* Test Item Value Reference Range Interpretation Comme nts HEMOGLOBIN A1c (test code = 27373) 9.[address] % [address] Urban AustinLIPID [id number] 00:00:00* Test Item Value Reference Range Interpretation Comme nts CHOLESTEROL (test code = 2210) 205 MG/DL TRIGLYCERIDES (test code = 2232) 262 MG/DL HDL CHOLESTEROL (test code = 2220) 41 MG/DL CALC LDL CHOL (test code = 2237) 124 MG/DL RISK RATIO LDL/HDL (test cod e = 2238) 3.[address] TafoyaCOMPREHENSIVE METABOLIC [id number] 00:00:00* Test Item Value Reference Range Interpretation Comme nts GLUCOSE (test code = 2217) 268 MG/DL BUN (test code = 2208) 13 MG/DL CREATININE (test code = 2214) 0.71 MG/DL eGFR AMER. (test cod e = 20982) 101 ML/MIN/1.73 eGFR NON- AMER. (test code = 95103) 87 ML/MIN/1.73 CALC BUN/CREAT (test code = 2235) 18 RATIO SODIUM (test code = 2231) 138 MEQ/L POTASSIUM (test code = 2228) 4.3 MEQ/L CHLORIDE (test code = 2215) 100 MEQ/L CARBON DIOXIDE (test code = 2206) 22 MEQ/L CALCIUM (test code = 2209) 9.2 MG/DL PROTEIN, TOTAL (test code = 222) 8.0 G/DL ALBUMIN (test code = 2201) 4.7 G/DL CALC GLOBULIN (test code = 2240) 3.3 G/DL CALC A/G RATIO (test code = 2234) 1.4 RATIO BILIRUBIN, TOTAL (test code = 2207) 0.4 MG/DL ALKALINE PHOSPHATASE (test code = 2204) 144 U/L AST (test code = 2218) 32 U/L ALT (test code = 2219) 20 U/L Lane Rajni AustinLIPID [id number] 00:00:00* Test Item Value Reference Range Interpretation Comme nts CHOLESTEROL (test code = 2210) 205 MG/DL TRIGLYCERIDES (test code = 2232) 262 MG/DL HDL CHOLESTEROL (test code = 2220) 41 MG/DL CALC LDL CHOL (test code = 2237) 124 MG/DL RISK RATIO LDL/HDL (test cod e = 2238) 3.[address] Urban WalnutCOMPREHENSIVE METABOLIC [id number] 00:00:00* Test Item Value Reference Range Interpretation Comme nts GLUCOSE (test code = 2217) 268 MG/DL BUN (test code = 2208) 13 MG/DL CREATININE (test code = 2214) 0.71 MG/DL eGFR AMER. (test cod e = 46360) 101 ML/MIN/1.73 eGFR NON- AMER. (test code = 38645) 87 ML/MIN/1.73 CALC BUN/CREAT (test code = [...] 0.4 MG/DL ALKALINE PHOSPHATASE (test code = 220) 144 U/L AST (test code = 2218) 32 U/L ALT (test code = 2219) 20 U/L LIPID [id number] 00:00:00* Test Item Value Reference Range Interpretation Comme nts CHOLESTEROL (test code = 2210) 205 MG/DL TRIGLYCERIDES (test code = 2232) 262 MG/DL HDL CHOLESTEROL (test code = 2220) 41 MG/DL CALC LDL CHOL (test code = 2237) 124 MG/DL RISK RATIO LDL/HDL (test cod e = 2238) 3.02 RATIO COMPREHENSIVE METABOLIC [id number] 00:00:00* Test Item Value Reference Range Interpretation Comme nts GLUCOSE (test code = 2217) 268 MG/DL BUN (test code = 8) 13 MG/DL CREATININE (test code = 2214) 0.71 MG/DL eGFR AMER. (test cod e = 99661) 101 ML/MIN/1.73 eGFR NON- AMER. (test code = 39171) 87 ML/MIN/1.73 CALC BUN/CREAT (test code = [...] code = 2219) 20 U/L COMPREHENSIVE METABOLIC [id number] 00:00:00* Test Item Value Reference Range Interpretation Comme nts GLUCOSE (test code = 2217) 268 MG/DL BUN (test code = 2208) 13 MG/DL CREATININE (test code = 2214) 0.71 MG/DL eGFR AMER. (test cod e = 83761) 101 ML/MIN/1.73 eGFR NON- AMER. (test code = 65189) 87 ML/MIN/1.73 CALC BUN/CREAT (test code = [...] (test code = 2219) 20 U/L Lane F AustinLIPID [id number] 00:00:00* Test Item Value Reference Range Interpretation Comme nts CHOLESTEROL (test code = 2210) 205 MG/DL TRIGLYCERIDES (test code = 2232) 262 MG/DL HDL CHOLESTEROL (test code = 2220) 41 MG/DL CALC LDL CHOL (test code = 2237) 124 MG/DL RISK RATIO LDL/HDL (test cod e = 2238) 3.02 RATIO COMPREHENSIVE METABOLIC [id number] 00:00:00* Test Item Value Reference Range Interpretation Comme nts GLUCOSE (test code = 2217) 268 MG/DL BUN (test code = 2208) 13 MG/DL CREATININE (test code = 2214) 0.71 MG/DL eGFR AMER. (test cod e = 74223) 101 ML/MIN/1.73 eGFR NON- AMER. (test code = 25675) 87 ML/MIN/1.73 CALC BUN/CREAT (test code = [...] (test code = 2219) 20 U/L LIPID [id number] 00:00:00* Test Item Value Reference Range Interpretation Comme nts CHOLESTEROL (test code = 2210) 205 MG/DL TRIGLYCERIDES (test code = 2232) 262 MG/DL HDL CHOLESTEROL (test code = 2220) 41 MG/DL CALC LDL CHOL (test code = 2237) 124 MG/DL RISK RATIO LDL/HDL (test cod e = 2238) 3.02 RATIO COMPREHENSIVE METABOLIC [id number] 00:00:00* Test Item Value Reference Range Interpretation Comme nts GLUCOSE (test code = 2217) 268 MG/DL BUN (test code = 2208) 13 MG/DL CREATININE (test code = 2214) 0.71 MG/DL eGFR AMER. (test cod e = 46417) 101 ML/MIN/1.73 eGFR NON- AMER. (test code = 99526) 87 ML/MIN/1.73 CALC BUN/CREAT (test code = [...] (test code = 2219) 20 U/L LIPID [id number] 00:00:00* Test Item Value Reference Range Interpretation Comme nts CHOLESTEROL (test code = 2210) 205 MG/DL TRIGLYCERIDES (test code = 2232) 262 MG/DL HDL CHOLESTEROL (test code = 2220) 41 MG/DL CALC LDL CHOL (test code = 2237) 124 MG/DL RISK RATIO LDL/HDL (test cod e = 2238) 3.02 RATIO COMPREHENSIVE METABOLIC [id number] 00:00:00* Test Item Value Reference Range Interpretation Comme nts GLUCOSE (test code = 2217) 268 MG/DL BUN (test code = 2208) 13 MG/DL CREATININE (test code = 2214) 0.71 MG/DL eGFR AMER. (test cod e = 27170) 101 ML/MIN/1.73 eGFR NON- AMER. (test code = 77596) 87 ML/MIN/1.73 CALC BUN/CREAT (test code = [...] (test code = 2219) 20 U/L LIPID [id number] 00:00:00* Test Item Value Reference Range Interpretation Comme nts CHOLESTEROL (test code = 2210) 205 MG/DL TRIGLYCERIDES (test code = 2232) 262 MG/DL HDL CHOLESTEROL (test code = 2220) 41 MG/DL CALC LDL CHOL (test code = 2237) 124 MG/DL RISK RATIO LDL/HDL (test cod e = 2238) 3.02 RATIO LIPID [id number] 00:00:00* Test Item Value Reference Range Interpretation Comme nts CHOLESTEROL (test code = 2210) 205 MG/DL TRIGLYCERIDES (test code = 2232) 262 MG/DL HDL CHOLESTEROL (test code = 2220) 41 MG/DL CALC LDL CHOL (test code = 2237) 124 MG/DL RISK RATIO LDL/HDL (test cod e = 2238) 3.[address] F AustinCOMPREHENSIVE METABOLIC [id number] 00:00:00* Test Item Value Reference Range Interpretation Comme nts GLUCOSE (test code = 2217) 268 MG/DL BUN (test code = 2208) 13 MG/DL CREATININE (test code = 2214) 0.71 MG/DL eGFR AMER. (test cod e = 18410) 101 ML/MIN/1.73 eGFR NON- AMER. (test code = 46337) 87 ML/MIN/1.73 CALC BUN/CREAT (test code = [...] code = 2219) 20 U/L Lane TafoyaLIPID [id number] 00:00:00* Test Item Value Reference Range Interpretation Comme nts CHOLESTEROL (test code = 2210) 205 MG/DL TRIGLYCERIDES (test code = 2232) 262 MG/DL HDL CHOLESTEROL (test code = 2220) 41 MG/DL CALC LDL CHOL (test code = 2237) 124 MG/DL RISK RATIO LDL/HDL (test cod e = 2238) 3.[address] TafoyaCOMPREHENSIVE METABOLIC [id number] 00:00:00* Test Item Value Reference Range Interpretation Comme nts GLUCOSE (test code = 2217) 268 MG/DL BUN (test code = 2208) 13 MG/DL CREATININE (test code = 2214) 0.71 MG/DL eGFR AMER. (test cod e = 37468) 101 ML/MIN/1.73 eGFR NON- AMER. (test code = 40200) 87 ML/MIN/1.73 CALC BUN/CREAT (test code = [...] code = 2219) 20 U/L Lane TafoyaLIPID [id number] 00:00:00* Test Item Value Reference Range Interpretation Comme nts CHOLESTEROL (test code = 2210) 205 MG/DL TRIGLYCERIDES (test code = 2232) 262 MG/DL HDL CHOLESTEROL (test code = 2220) 41 MG/DL CALC LDL CHOL (test code = 2237) 124 MG/DL RISK RATIO LDL/HDL (test cod e = 2238) 3.[address] Urban AustinCOMPREHENSIVE METABOLIC [id number] 00:00:00* Test Item Value Reference Range Interpretation Comme nts GLUCOSE (test code = 2217) 268 MG/DL BUN (test code = 2208) 13 MG/DL CREATININE (test code = 2214) 0.71 MG/DL eGFR AMER. (test cod e = 34126) 101 ML/MIN/1.73 eGFR NON- AMER. (test code = 51878) 87 ML/MIN/1.73 CALC BUN/CREAT (test code = [...] = 2219) 20 U/L [address] [place] AustinLIPID [id number] 00:00:00* Test Item Value Reference Range Interpretation Comme nts CHOLESTEROL (test code = 2210) 205 MG/DL TRIGLYCERIDES (test code = 2232) 262 MG/DL HDL CHOLESTEROL (test code = 2220) 41 MG/DL CALC LDL CHOL (test code = 2237) 124 MG/DL RISK RATIO LDL/HDL (test cod e = 2238) 3.[address] Urban AustinCOMPREHENSIVE METABOLIC [id number] 00:00:00* Test Item Value Reference Range Interpretation Comme nts GLUCOSE (test code = 2217) 268 MG/DL BUN (test code = 2208) 13 MG/DL CREATININE (test code = 2214) 0.71 MG/DL eGFR AMER. (test cod e = 83440) 101 ML/MIN/1.73 eGFR NON- AMER. (test code = 87628) 87 ML/MIN/1.73 CALC BUN/CREAT (test code = [...] code = 2219) 20 U/L [facility] GLUCOSE (AUTOMATED)2020-06-15 18:35:00* Test Item Value Reference Range Interpretation Comme [facility] POCT GLU (test code = 4096324553) 127 mg/dL 70-110 H Lab Interpretation (test cod e = 63377-0) Abnormal [facility] GLUCOSE (AUTOMATED)2020-06-15 14:28:00* Test Item Value Reference Range Interpretation Comme [facility] POCT GLU (test code = 7579080363) 151 mg/dL 70-110 H Lab Interpretation (test cod e = 77978-9) Abnormal [facility] Metabolic Panel (NA, K, CL, CO2, GLUCOSE, BUN, CREATININE, CA)2020-06-15 12:15:00* Test Item Value Reference Range Interpretation Comme [facility] NA (test code = 9855508805) 141 mmol/L 135-145 K (test code = 1928431346) 3.6 mmol/L 3.5-5 CL (test code = 2590761595) 105 mmol/L 98-108 CO2 TOTAL (test code = 0740335898) 30 mmol/L 23-31 AGAP (test code = 1344078762) 2-16 BUN (test code = 8109244929) 15 mg/dL 7-23 GLUCOSE (test code = 2278687032) 89 mg/dL 70-110 CREATININE (test code = 1060434449) 0.57 mg/dL 0.5-1.04 CALCIUM (test code = 9777494212) 8.9 mg/dL 8.6-10.6 eGFR Calculation (Non-) (test code = 6775718186) mL/min/1.73m2 eGFR Calculation () (test code = 0497607938) mL/min/1.73m2 ISMAEL (test code = ISMAEL) Association [...] or urine or abnormalities in imaging tests). [facility] with [id number] 12:07:00* Test Item Value Reference Range Interpretation Comme nts WBC (test code = 6690-2) See_Comment L [Automated [employer]] The system which generated this result transmitted [...] 32.5 g/dL 31.6-35.1 RDW-SD (test code = 82692-4) 47.9 fL 39-49.9 RDW-CV (test code = 788-0) 15.2 % 12-15.5 PLT (test code = 777-3) See_Comment L [Automated messa ge] The system which generated this result transmitted reference range: 166 - 358 10*3/?L. The reference range was not used to interpret this result as normal/abnormal. MPV (test code = 30730-1) 12.1 fL 9.5-12.9 NRBC/100 WBC (test code = 2882517959) See_Comment [Automated [employer] ssage] The system which generated this result transmitted reference range: 0.0 - 10.0 /100 WBCs. The reference range was not used to interpret this result as normal/abnormal. NRBC x10^3 (test code = 2049356285) <0.01 See_Comment [Automated messa ge] The system which generated this result transmitted reference range: 10*3/?L. The reference range was not used to interpret this result as normal/abnormal. GRAN MAT (NEUT) % (test code = 770-8) 70.9 % IMM GRAN % (test code = 1589511524) 0.50 % LYMPH % (test code = 736-9) 20.7 % MONO % (test code = 5905-5) 7.9 % EOS % (test code = 713-8) 0.0 % BASO % (test code = 706-2) 0.0 % GRAN MAT x10^3(ANC) (test code = 6819295613) 2.87 10*3/uL 1.88-7.09 IMM GRAN x10^3 (test code = 3552978460) <0.03 0-0.06 LYMPH x10^3 (test code = 731-0) 0.84 10*3/uL 1.32-3.29 L MONO x10^3 (test code = 742-7) 0.32 10*3/uL 0.33-0.92 L EOS x10^3 (test code = 711-2) <0.03 0.03-0.39 L BASO x10^3 (test code = 704-7) <0.03 0.01-0.07 Lab Interpretation (test code = 76451-6) Abnormal [facility] GLUCOSE (AUTOMATED)2020-06-14 22:51:00* Test Item Value Reference Range Interpretation Comme nts POCT GLU (test code = 0053500857) 162 mg/dL 70-110 H Lab Interpretation (test cod e = 86981-1) Abnormal [facility] GLUCOSE (AUTOMATED)2020-06-14 17:54:00* Test Item Value Reference Range Interpretation Comme nts POCT GLU (test code = 9512023092) 156 mg/dL 70-110 H Lab Interpretation (test cod e = 23576-3) Abnormal [facility] GLUCOSE (AUTOMATED)2020-06-14 14:57:00* Test Item Value Reference Range Interpretation Comme nts POCT GLU (test code = 7449880265) 179 mg/dL 70-110 H Lab Interpretation (test cod e = 73902-1) Abnormal [facility] Metabolic Panel (NA, K, CL, CO2, GLUCOSE, BUN, CREATININE, CA)2020-06-14 14:40:00* Test Item Value Reference Range Interpretation Comme nts NA (test code = 4019881032) 138 mmol/L 135-145 K (test code = 8662280265) 4.1 mmol/L 3.5-5 CL (test code = 9137311063) 104 mmol/L 98-108 CO2 TOTAL (test code = 6393354122) 25 mmol/L 23-31 AGAP (test code = 2309077444) 2-16 BUN (test code = 2378267033) 15 mg/dL 7-23 GLUCOSE (test code = 4288622788) 194 mg/dL 70-110 H CREATININE (test code = 3568991945) 0.49 mg/dL 0.5-1.04 L CALCIUM (test code = 2970506390) 8.7 mg/dL 8.6-10.6 eGFR Calculation (Non-) (test code = 3997446054) mL/min/1.73m2 eGFR Calculation () (test code = 3080465790) mL/min/1.73m2 ISMAEL (test code = ISMAEL) Association [...] imaging tests). Lab Interpretation (test code = 16420-3) Abnormal [facility] with [id number] 12:46:00* Test Item Value Reference Range Interpretation Comme nts WBC (test code = 6690-2) See_Comment L [Automated [employer] ge] The system which generated this result transmitted reference range: 4.30 - 11.10 10*3/?L. The reference range was not used to interpret this result as normal/abnormal. RBC (test code = 789-8) See_Comment [Automated [employer]] The system which generated this result [...] g/dL 31.6-35.1 L RDW-SD (test code = 72664-5) 48.3 fL 39-49.9 RDW-CV (test code = 788-0) 15.1 % 12-15.5 PLT (test code = 777-3) See_Comment L [Automated [employer]] The system which generated this result transmitted reference range: 166 - 358 10*3/?L. The reference range was not used to interpret this result as normal/abnormal. MPV (test code = 07062-6) 11.8 fL 9.5-12.9 IPF % (test code = 2157304505) 5.8 % 1.3-7.7 Platelet count measured by fluorescence method. NRBC/100 WBC (test code = 5850946075) See_Comment [Automated [employer] ssage] The system which generated this result transmitted reference range: 0.0 - 10.0 /100 WBCs. The reference range was not used to interpret this result as normal/abnormal. NRBC x10^3 (test code = 3359990475) <0.01 See_Comment [Automated [employer]] The system which generated this result transmitted reference range: 10*3/?L. The reference range was not used to interpret this result as normal/abnormal. GRAN MAT (NEUT) % (test code = 770-8) 76.8 % IMM GRAN % (test code = 4275181445) 0.30 % LYMPH % (test code = 736-9) 15.9 % MONO % (test code = 5905-5) 7.0 % EOS % (test code = 713-8) 0.0 % BASO % (test code = 706-2) 0.0 % GRAN MAT x10^3(ANC) (test code = 5345377531) 2.76 10*3/uL 1.88-7.09 IMM GRAN x10^3 (test code = 3537915565) <0.03 0-0.06 LYMPH x10^3 (test code = 731-0) 0.57 10*3/uL 1.32-3.29 L MONO x10^3 (test code = 742-7) 0.25 10*3/uL 0.33-0.92 L EOS x10^3 (test code = 711-2) <0.03 0.03-0.39 L BASO x10^3 (test code = 704-7) <0.03 0.01-0.07 Lab Interpretation (test code = 65512-1) Abnormal [facility] GLUCOSE (AUTOMATED)2020-06-14 06:24:00* Test Item Value Reference Range Interpretation Comme nts POCT GLU (test code = 5969700437) 272 mg/dL 70-110 H Lab Interpretation (test cod e = 25276-0) Abnormal [facility] GLUCOSE (AUTOMATED)2020-06-14 02:26:00* Test Item Value Reference Range Interpretation Comme nts POCT GLU (test code = 8255947726) 318 mg/dL 70-110 H Notified Provide r Lab Interpretation (test code = 81632-8) Abnormal [facility] GLUCOSE (AUTOMATED)2020-06-14 02:08:00* Test Item Value Reference Range Interpretation Comme nts POCT GLU (test code = 5774347266) 279 mg/dL 70-110 H Lab Interpretation (test cod e = 46861-3) Abnormal [facility] GLUCOSE (AUTOMATED)2020-06-13 19:05:00* Test Item Value Reference Range Interpretation Comme nts POCT GLU (test code = 5441128896) 250 mg/dL 70-110 H Lab Interpretation (test cod e = 31263-2) [facility] 15:51:00* Test Item Value Reference Range Interpretation Comme [facility] POCT GLU (test code = 8579873132) 242 mg/dL 70-110 H Lab Interpretation (test cod e = 63666-2) Abnormal [facility] with Whdukenyrmto4533-88-48 15:39:00* Test Item Value Reference Range Interpretation [facility] W[facility] (test code = 6690-2) See_Comment LL [...] 31.9 g/dL 31.6-35.1 RDW-SD (test code = 17568-4) 48.3 fL 39-49.9 RDW-CV (test code = 788-0) 15.1 % 12-15.5 PLT (test code = 777-3) See_Comment L [Automated messa ge] The system which generated this result transmitted reference range: 166 - 358 10*3/?L. The reference range was not used to interpret this result as normal/abnormal. MPV (test code = 37650-9) 11.7 fL 9.5-12.9 IPF % (test code = 4407414978) 5.3 % 1.3-7.7 Platelet count measured by fluorescence method. NRBC/100 WBC (test code = 9427765847) See_Comment [Automated [employer] ssage] The system which generated this result transmitted reference range: 0.0 - 10.0 /100 WBCs. The reference range was not used to interpret this result as normal/abnormal. NRBC x10^3 (test code = 2336617890) <0.01 See_Comment [Automated [employer]] The system which generated this result transmitted reference range: 10*3/?L. The reference range was not used to interpret this result as normal/abnormal. GRAN MAT (NEUT) % (test code = 770-8) 58.2 % IMM GRAN % (test code = 4197377298) 0.50 % LYMPH % (test code = 736-9) 25.5 % MONO % (test code = 5905-5) 15.8 % EOS % (test code = 713-8) 0.0 % BASO % (test code = 706-2) 0.0 % GRAN MAT x10^3(ANC) (test code = 7931435328) 1.14 10*3/uL 1.88-7.09 L IMM GRAN x10^3 (test code = 0722600245) <0.03 0-0.06 LYMPH x10^3 (test code = 731-0) 0.50 10*3/uL 1.32-3.29 L MONO x10^3 (test code = 742-7) 0.31 10*3/uL 0.33-0.92 L EOS x10^3 (test code = 711-2) <0.03 0.03-0.39 L BASO x10^3 (test code = 704-7) <0.03 0.01-0.07 PLT ESTIMATE (test code = 9317-9) Decreased Normal A Lab Interpretation (test code = 96678-7) [facility] [id number] 14:28:03HISTORY: Elevated D dimer and inconclusive VQ [...] lobe of the liver, stable when compared [id number] CT studies. No aggressive bone lesions. Degenerative disc disease noted at T11-T12,T9-T10 levels and there is minimal compression in the upper plate of N8jcdikppqi body. CONCLUSIONS:1. No acute pulmonary thromboembolism.2. Bilateral peripherally base ground glass hazy infiltrates, consistentwith COVID 19 pulmonary infection. No lobar pneumonia. No pleural effusion. [facility], Radiant Results Inft User - 06/13/2020 8:29 [...] lobe of the liver, stable when compared [id number] CT studies.No aggressive bone lesions. Degenerative disc disease noted at T11-T12,T9-T10 levels and there is minimal compression in the upper plate of U3yzlxwtpix body.CONCLUSIONS:1. No acute pulmonary thromboembolism.2. Bilateral peripherally base ground glass hazy infiltrates, consistentwith COVID 19 pulmonary infection. No lobar pneumonia. No pleural effusion.[facility] Metabolic Panel (NA, K, CL, CO2, GLUCOSE, BUN, CREATININE, CA)2020-06-13 13:09:00* Test Item Value Reference Range Interpretation Comme nts NA (test code = 2163132679) 135 mmol/L 135-145 K (test code = 2392681958) 4.2 mmol/L 3.5-5 CL (test code = 8893573713) 103 mmol/L 98-108 CO2 TOTAL (test code = 1175904283) 26 mmol/L 23-31 AGAP (test code = 7932525677) 2-16 BUN (test code = 1551862962) 16 mg/dL 7-23 GLUCOSE (test code = 0475199546) 204 mg/dL 70-110 H CREATININE (test code = 3670658985) 0.58 mg/dL 0.5-1.04 CALCIUM (test code = 3936705266) 8.4 mg/dL 8.6-10.6 L eGFR Calculation (Non-) (test code = 2256532853) mL/min/1.73m2 eGFR Calculation () (test code = 5643970826) mL/min/1.73m2 ISMAEL (test code = ISMAEL) Association [...] imaging tests). Lab Interpretation (test code = 36579-0) [facility]normal [facility] (in units): 1 Units~Indication: Dilutional Whptghbiduxz1008-85-34 04:34:33* Test Item Value Reference Range Interpretation Comme nts Unit Blood Type (test code = 4410) O Pos ISBT Blood Type Code (test code = 817350) Unit Number (test code = 4411) [id number] Blood Expiration Date & Time (test code = 290883) Status Information (test code = 4412) Issued Product Identification (test code = 4413) FFP Product Code (test code = 4414) [id number] Performed at [facility] Laboratory Services - [facility] Blood [address] [place], [place] [id number] Free: [phone] No. [id number] [facility] COVID [id number] 04:02:00COVID DMT InterpretationInterpretation/Recommendations: Molecular NAAT Tests for Active Infection with the SARS-CoV-2 Virus: The current test result is positive for the SARS-CoV-2 virus that causes COVID-19 illness. In lfkt-qz-bnayiaqf illness, the patient may be considered no [...] COVID-19 testing the patient has had at [facility], including molecular NAAT testing (more commonly known as PCR testing and Rapid ID Now testing) and antibody testing.It does not take into account any testing that a patient has had outside of the [facility] medical record. [facility] LABORATORY SERVICESCOVID LkttwkzJNJF-BtY-9 Rapid ID NOW (no units) ? ? Date ? Value ? 06/11/2020 ? Positive (A) ? [facility] SERVICESUn[facility] HospitalVITAMIN B12, [id number] 00:01:00* Test Item Value Reference Range Interpretation Comme nts VIT B12 (test code = 2580899567) 436 pg/mL 240-930 ISMAEL (test code = ISMAEL) Biotin has been reported to cause a positive bias, interpret results relative to patient's use of biotin. Lab Interpretation (test code = 74407-9) Normal [facility]2020-06-12 23:59:00* Test Item Value Reference Range Interpretation Comme [facility] POCT GLU (test code = 0683631944) 197 mg/dL 70-110 H Lab Interpretation (test cod e = 02441-9) Abnormal [facility] GLUCOSE (AUTOMATED)2020-06-12 23:59:00* Test Item Value Reference Range Interpretation Comme [facility] POCT GLU (test code = 8515701906) 280 mg/dL 70-110 H Lab Interpretation (test cod e = 06256-8) Abnormal [facility] L[facility]G PERFUSION [id number] 19:07:15Study inconclusive for pulmonary embolism.PULMONARY PERFUSION SCAN INDICATION: Respiratory failure elevated d-dimer in COVID, concern PE TECHNIQUE: Ventilation imaging was not performed due to coronavirusprecautions. The patient received an intravenous injection of 7 mCi [id number] MAA, and planar images were subsequently acquired in the anterior,posterior, right anterior oblique, left anterior obliq ue, left posterioroblique, and right posterior oblique projections. ? Comparison made with chest imaging from 06/11/2020. FINDINGS: Posterior segment of left upper lung showed subsegmental perfusion defect.Additional subsegmental perfusion abnormalities noted also in the leftlower lung. [facility], Radiant Results Inft User - 06/12/2020 1:08 PM CSTPULMONARY PERFUSION SCANINDICATION: Respiratory failure elevated d-dimer in COVID, concern PE TECHNIQUE: Ventilation imaging was not performed due to coronavirusprecautions. The patient received an intravenous injection of 7 mCi [id number] MAA, and planar images were subsequently acquired in the anterior,posterior, right anterior oblique, left anterior obliq ue, left posterioroblique, and right posterior oblique projections. Comparison made with chest imaging from 06/11/2020.FINDINGS:Posterior segment of left upper lung showed subsegmental perfusion defect.Additional subsegmental perfusion abnormalities noted also in the leftlower lung.IMPRESSIONStudy inconclusive for pulmonary embolism.[facility] GLUCOSE (AUTOMATED) 2020-06-12 14:59:00* Test Item Value Reference Range Interpretation Comme [facility] POCT GLU (test code = 9190044808) 144 mg/dL 70-110 H Lab Interpretation (test cod e = 11978-4) [facility]normal [id number] 13:11:00* Test Item Value Reference Range Interpretation Comments D-DIMER (test code = 2008258143) See_Comment H [Automated message] The system which [...] a diagnosis. Lab Interpretation (test code = 05636-8) Abnormal [facility] HospitalABORH [id number] 12:08:53* Test Item Value Reference Range Interpretation Comme nts ABO & RH (test code = 20) O Positive Performed at [facility] Laboratory [facility] Blood [place] [address]Toll Free: [phone] No. [id number] [facility]Type and Screen - ONCE [id number] 10:05:49 * Test Item Value Reference Range Interpretation Comme nts ABO & RH (test code = 20) O Positive Performed at [facility] Laboratory [facility] Blood [place] [address]Toll Free: [phone] No. [id number] IAT (test code = 1185) Negative Performed at [facility] Laboratory [facility] Blood [place] [address]Toll Free: [phone] No. [id number] [facility] (NA, K, CL, CO2, GLUCOSE, BUN, CREATININE, CA)2020-06-12 09:35:00* Test Item Value Reference Range Interpretation Comme nts NA (test code = 6822148140) 135 mmol/L 135-145 K (test code = 2440587216) 3.9 mmol/L 3.5-5 CL (test code = 9935952909) 104 mmol/L 98-108 CO2 TOTAL (test code = 7776403517) 26 mmol/L 23-31 AGAP (test code = 1246348735) 2-16 BUN (test code = 5511222467) 13 mg/dL 7-23 GLUCOSE (test code = 1856583466) 162 mg/dL 70-110 H CREATININE (test code = 9574224343) 0.76 mg/dL 0.5-1.04 CALCIUM (test code = 9766418828) 7.7 mg/dL 8.6-10.6 L eGFR Calculation (Non-) (test code = 2849855057) mL/min/1.73m2 eGFR Calculation () (test code = 1494336756) mL/min/1.73m2 ISMAEL (test code = ISMAEL) Association [...] imaging tests). Lab Interpretation (test code = 55021-6) Abnormal [facility] with Hwpaxerekgdq0351-94-66 09:24:00* Test Item Value Reference Range Interpretation Comme nts WBC (test code = 6690-2) See_Comment L [Automated [employer]] The system which generated this result transmitted reference range: 4.30 - 11.10 10*3/?L. The reference range was not used to interpret this result as normal/abnormal. RBC (test code = 789-8) See_Comment [Automated [employer]] The system which generated this result transmitted [...] g/dL 31.6-35.1 L RDW-SD (test code = 15285-1) 49.2 fL 39-49.9 RDW-CV (test code = 788-0) 15.3 % 12-15.5 PLT (test code = 777-3) See_Comment L [Automated [employer] ge] The system which generated this result transmitted reference range: 166 - 358 10*3/?L. The reference range was not used to interpret this result as normal/abnormal. MPV (test code = 50842-2) 11.3 fL 9.5-12.9 IPF % (test code = 3866738862) 3.7 % 1.3-7.7 Platelet count measured by fluorescence method. NRBC/100 WBC (test code = 9087383188) See_Comment [Automated [employer] ssage] The system which generated this result transmitted reference range: 0.0 - 10.0 /100 WBCs. The reference range was not used to interpret this result as normal/abnormal. NRBC x10^3 (test code = 7898849788) <0.01 See_Comment [Automated messa ge] The system which generated this result transmitted reference range: 10*3/?L. The reference range was not used to interpret this result as normal/abnormal. GRAN MAT (NEUT) % (test code = 770-8) 56.9 % IMM GRAN % (test code = 2880723108) 0.70 % LYMPH % (test code = 736-9) 25.0 % MONO % (test code = 5905-5) 17.1 % EOS % (test code = 713-8) 0.3 % BASO % (test code = 706-2) 0.0 % GRAN MAT x10^3(ANC) (test code = 3281182626) 1.73 10*3/uL 1.88-7.09 L IMM GRAN x10^3 (test code = 0712885820) <0.03 0-0.06 LYMPH x10^3 (test code = 731-0) 0.76 10*3/uL 1.32-3.29 L MONO x10^3 (test code = 742-7) 0.52 10*3/uL 0.33-0.92 EOS x10^3 (test code = 711-2) <0.03 0.03-0.39 L BASO x10^3 (test code = 704-7) <0.03 0.01-0.07 Lab Interpretation (test code = 10911-8) Abnormal [facility] HospitalVITAMIN D, [id number] 07:22:00* Test Item Value Reference Range Interpretation Comme nts VIT D 25OH (test code = 24531-0) 20 ng/mL 25-80 L ISMAEL (test code = ISMAEL) Deficiency: <20 ng/mLInsufficiency: 20-24 ng/mLOptimal: 25-80 ng/mL Lab Interpretation (test code = 90069-0) Abnormal [facility] HospitalPROCALCITONIN2021-02-24 06:16:00* Test Item Value Reference Range Interpretation Comme nts Procalcitonin (test code = 2519437886) 0.06 ng/mL <0.07 ISMAEL (test code = [...] For further information please refer to:[email or web address] Lab Interpretation (test code = 70075-4) Normal [facility] GLUCOSE (AUTOMATED)2020-06-12 02:08:00* Test Item Value Reference Range Interpretation Comme nts POCT GLU (test code = 8330415597) 166 mg/dL 70-110 H Lab Interpretation (test cod e = 85251-6) Abnormal [facility] GLUCOSE (AUTOMATED)2020-06-12 00:03:00* Test Item Value Reference Range Interpretation Comme nts POCT GLU (test code = 5068601913) 144 mg/dL 70-110 H Lab Interpretation (test cod e = 07093-8) Abnormal [facility] HospitalIRON [id number] 00:02:00* Test Item Value Reference Range Interpretation Comme nts IRON (test code = 8011772201) 27 ug/dL 50-160 L TIBC (test code = 1723474183) 335 ug/dL 250-410 % FE SAT (test code = 5725433832) 8 % 20-50 L Lab Interpretation (test cod e = 13563-4) Abnormal [facility] HospitalGLYCOSYLATED HEMOGLOBIN (A1C)2020-06-12 00:01:00* Test Item Value Reference Range Interpretation Comme nts HGB A1C (test code = 4548-4) 10.8 % 4-6 H ISMAEL (test code = ISMAEL) %A1C (NGSP) Interpretation (ADA)4.8-5.6 ? ? Normal or (Non-Diabetic Range)5.7-6.4 ? ? Increased Risk (Pre-Diabetic)>6.5 ?Diabetes Indicated Lab Interpretation (test code = 68286-0) Abnormal [facility] HospitalTHYROID STIMULATING [id number] 23:31:00 * Test Item Value Reference Range Interpretation Comme nts TSH (test code = 9871170912) See_Comment [Automated messa ge] The system which generated this result transmitted reference range: 0.45 - 4.70 mIU/L. The reference range was not used to interpret this result as normal/abnormal. Lab Interpretation (test code = 45215-9) Normal [facility] HospitalN-TERMINAL [id number] 23:10:00* Test Item Value Reference Range Interpretation Comme nts NT-proBNP (test code = 6264138747) 41 pg/mL See_Comment [Automated message] The system which generated this result transmitted reference range: <=125. The reference range was not used to interpret this result as normal/abnormal. ISMAEL (test code = ISMAEL) Biotin has been reported to cause a negative bias, interpret results relative to patient's use of biotin. Lab Interpretation (test code = 98281-5) Normal [facility] HospitalMagnesium [id number] 23:00:00* Test Item Value Reference Range Interpretation Comme nts MAGNESIUM (test code = 7508750316) 1.6 mg/dL 1.7-2.4 L Lab Interpretation (test cod e = 19917-0) Abnormal [facility] HospitalTroponin [id number] 17:29:00* Test Item Value Reference Range Interpretation Comme nts TROPONIN I (test code = 2732737919) 0.001 ng/mL See_Comment [Automated message] The system [...] biotin. ? Lab Interpretation (test code = 59947-8) Normal [facility] 1 [id number] 17:26:01HISTORY: Cough, fever, SOB, hypoxia. TECHNIQUE: Portable [...] CONCLUSIONS: No signs of acute cardiopulmonary disease. [facility] HospitalCOVID-19 (ID NOW RAPID TESTING)2020-06-11 17:23:00* Test Item Value Reference Range Interpretation Comme nts SARS-CoV-2 Rapid ID NOW (test code = 42615-5) Positive Not Detected A ISMAEL (test code = ISMAEL) ID NOW COVID-19 As say is an isothermal nucleic acid amplification test intended for the qualitative detection of nucleic acid from SARS-CoV-2 viral RNA in nasopharyngeal (MARKET RESEARCH INTERN) specimens. It is used under Emergency Use [...] clinically indicated. Lab Interpretation (test code = 09735-9) Abnormal [facility] Metabolic Panel (NA, K, CL, CO2, GLUCOSE, BUN, CREATININE, CA)2020-06-11 17:18:00* Test Item Value Reference Range Interpretation Comme nts NA (test code = 3280161640) 134 mmol/L 135-145 L K (test code = 4778710274) 3.8 mmol/L 3.5-5 CL (test code = 9534611587) 101 mmol/L 98-108 CO2 TOTAL (test code = 4477500472) 21 mmol/L 23-31 L AGAP (test code = 3845268161) 2-16 BUN (test code = 2185355349) 12 mg/dL 7-23 GLUCOSE (test code = 0593438555) 173 mg/dL 70-110 H CREATININE (test code = 8548444057) 0.72 mg/dL 0.5-1.04 CALCIUM (test code = 5763760782) 9.0 mg/dL 8.6-10.6 eGFR Calculation (Non-) (test code = 6203562790) mL/min/1.73m2 eGFR Calculation () (test code = 9725174149) mL/min/1.73m2 ISMAEL (test code = ISMAEL) Association [...] imaging tests). Lab Interpretation (test code = 25334-5) Abnormal [facility] HospitalHepatic Function Panel (ALB, T.PRO, BILI T, BU/BC, ALT, AST, ALK PHOS)2020-06-11 17:18:00* Test Item Value Reference Range Interpretation Comme nts TOTAL BILI (test code = 8521657993) 0.7 mg/dL 0.1-1.1 BILI UNCON (test code = 1118040113) 0.6 mg/dL 0.1-1.1 BILI CONJ (test code = 0335489745) 0.0 mg/dL 0-0.3 T PROTEIN (test code = 8816722152) 8.3 g/dL 6.3-8.2 H ALBUMIN (test code = 5498511989) 4.5 g/dL 3.5-5 ALK PHOS (test code = 3197068294) 124 U/L 34-122 H ALTv (test code = 1742-6) 50 U/L 5-35 H AST(SGOT) (test code = 3946093092) 103 U/L 13-40 H Lab Interpretation (test cod e = 00574-6) Abnormal [facility] HospitalCBC with [id number] 17:07:00* Test Item Value Reference Range Interpretation Comme nts WBC (test code = 6690-2) See_Comment [Automated [employer]] The system which generated this result transmitted reference range: 4.30 - 11.10 10*3/?L. The reference range was not used to interpret this result as normal/abnormal. RBC (test code = 789-8) See_Comment [Automated [employer]] The system which generated this result transmitted [...] 32.5 g/dL 31.6-35.1 RDW-SD (test code = 66247-0) 45.5 fL 39-49.9 RDW-CV (test code = 788-0) 14.8 % 12-15.5 PLT (test code = 777-3) See_Comment L [Automated [employer] ge] The system which generated this result transmitted reference range: 166 - 358 10*3/?L. The reference range was not used to interpret this result as normal/abnormal. MPV (test code = 78680-5) 12.1 fL 9.5-12.9 IPF % (test code = 6531429761) 4.1 % 1.3-7.7 Platelet count measured by fluorescence method. NRBC/100 WBC (test code = 2589850778) See_Comment [Automated Active Scal[employer] ssage] The system which generated this result transmitted reference range: 0.0 - 10.0 /100 WBCs. The reference range was not used to interpret this result as normal/abnormal. NRBC x10^3 (test code = 3718127750) <0.01 See_Comment [Automated [employer] ge] The system which generated this result transmitted reference range: 10*3/?L. The reference range was not used to interpret this result as normal/abnormal. GRAN MAT (NEUT) % (test code = 770-8) 70.6 % IMM GRAN % (test code = 9710994519) 1.00 % LYMPH % (test code = 736-9) 13.8 % MONO % (test code = 5905-5) 14.4 % EOS % (test code = 713-8) 0.0 % BASO % (test code = 706-2) 0.2 % GRAN MAT x10^3(ANC) (test code = 1004596015) 4.40 10*3/uL 1.88-7.09 IMM GRAN x10^3 (test code = 3821416995) 0.06 10*3/uL 0-0.06 LYMPH x10^3 (test code = 731-0) 0.86 10*3/uL 1.32-3.29 L MONO x10^3 (test code = 742-7) 0.90 10*3/uL 0.33-0.92 EOS x10^3 (test code = 711-2) <0.03 0.03-0.39 L BASO x10^3 (test code = 704-7) <0.03 0.01-0.07 Lab Interpretation (test code = 30429-1) Abnormal [facility] HospitalLactic Acid Whole [id number] 16:53:00* Test Item Value Reference Range Interpretation Comme nts LACTIC ACID (test code = 5542804372) 1.70 mmol/L 0.5-2.2 Lab Interpretation (test cod e = 27384-1) Normal [facility] Notes Date/Time Note Provider Source [facility]2025-01-15 00:00:00 [facility]2024-11-20 00:00:00 [facility]2024-10-03 00:00:00 [facility]2024-08-20 00:00:00 [facility]2024-04-25 00:00:00 [facility]2024-03-27 13:55:15 Medical Request has been faxed to [facility]. Confirmation received. Ivy Burton [facility]
[2024-08-28] MEDS ORDERED: ONDANSETRON 4 MG (ODT) TAB ONE (12:36)
[2024-08-28] MEDS ORDERED: MORPHINE 4 MG/ML SYR ONE (13:14)
--- NOTE | 2024-08-28 13:17 | RAD REPORT ---
Exam:Shoulder Right 2+ Views History: Right shoulder pain Findings: No fracture or dislocation seen Bones are osteoporotic. Marked osteoarthritis AC joint.
--- NOTE | 2024-08-28 13:31 | EDPHYS ---
Physician Documentation [facility] Name: Sheila Vila Age: 73 yrs Sex: Female : 1950 Arrival Date: 08/28/2024 Time: 11:54 Bed 12 Private MD: ED Physician Darrel Casillas HPI: 08/28 12:25 This 73 yrs old Black Female presents to ER via Unassigned with complaints of Fall kb Injury. 12:25 Pt is a 73 year old female who presents for right shoulder pain that started 9 days kb ago. States she tripped down 2 steps, reached back to grab the rail and felt a pop in her shoulder. Denies any other injuries. States she was seen in [facility], had normal xrays and told that she probably tore something. Has been taking hydrocodone for pain, but she has been getting nauseated due to pain or the medication. Pt states she was given a sling as well, but has not been wearing it. . Historical: - Allergies: 12:25 Darvocet-N 100; hb 12:25 PENICILLINS; hb 12:25 Propoxyphene; hb 12:25 Toradol; hb - PMHx: 12:25 Cirrhosis; Asthma; Diabetes - IDDM; Hepatitis; resolved; Hypertension; COPD; hb Pancreatitis; Pneumonia; - PSHx: 12:25 Cholecystectomy; hysterectomy; knee sx; hb - Immunization history:: Adult Immunizations up to date. - Infectious Disease History:: Denies. - Immunization history: Last tetanus immunization: - up to date. - Social history:: Smoking status: Patient denies any tobacco usage or history of. ROS: 12:27 Constitutional: As per HPI kb Exam: 12:27 Constitutional: This is a well developed, well nourished patient who is awake, alert, kb and in no acute distress. Head/Face: Normocephalic, atraumatic. ENT: Moist Mucous membranes Cardiovascular: Regular rate Respiratory: Respirations even and unlabored. No increased work of breathing. Talking in full sentences Abdomen/GI: Soft, non-tender. No distention Skin: Warm, dry with normal turgor. Normal color. Neuro: Awake and alert, GCS 15, oriented to person, place, time, and situation. 12:27 Musculoskeletal/extremity: Extremities: grossly normal except: noted in the anterior aspect of right shoulder: decreased ROM, pain, tenderness, ROM: limited active range of motion, limited active range of motion due to pain, Circulation is intact in all extremities. Sensation intact. Vital Signs: 12:24 BP 137 / 91; Pulse 97; Resp 16; Temp 97.8; Pulse Ox 99% on R/A; Weight 85.28 kg; Height hb 5 ft. 4 in. ; Pain 9/10; 13:30 BP 131 / 81; Pulse 81; Resp 17; Pulse Ox 99% ; Pain 7/10; ll1 12:24 Body Mass Index 32.27 (85.28 kg, 162.56 cm) hb 12:24 Pain Scale: Adult hb 13:30 Pain Scale: Adult ll1 [place] Coma Score: 13:48 Eye Response: spontaneous(4). Motor Response: obeys commands(6). Verbal Response: ll1 oriented(5). Total: 15. Trauma Score (Adult): 13:48 Eye Response: spontaneous(1); Verbal Response: oriented(1); Motor Response: obeys ll1 commands(2); Systolic BP: > 89 mm Hg(4); Respiratory Rate: 10 to 29 per min(4); Klaudia Score: 15; Trauma Score: 12 MDM: 12:00 Medical Screening Exam initiated kb 13:29 Differential diagnosis: contusion, fracture, sprain, strain. Data reviewed: vital kb signs, nurses notes. I considered the following discharge prescriptions or medication management in the emergency department I discussed and recommended Over The Counter medications, zofran prescribed for nausea. . Independent interpretation of the following test(s) in the Emergency Department X-Ray: My interpretation is no fracture. Counseling: I had a detailed discussion with the patient and/or guardian regarding the historical points, exam findings, and any diagnostic results supporting the discharge/admit diagnosis, radiology results, the need for outpatient follow up, a orthopedic surgeon, to return to the emergency department if symptoms worsen or persist or if there are any questions or concerns that arise at home. 0512 12:24 Order name: Shoulder Right (2 View) XRAY; Complete Time: 13:18 kb 08/28 12:24 Order name: PO challenge; Complete Time: 12:41 kb Administered Medications: 12:40 Drug: Ondansetron Oral Disintegrating Tablet Oral Disintegrating Tablet 4 mg PO once ll1 Route: PO; 13:13 Follow up: Response: No adverse reaction; Nausea unchanged ll1 13:19 Drug: morphine IM 4 mg IM once {Note: pain 9/10 RASS 0.} Route: IM; Site: left vastus ll1 lateralis; 13:50 Follow up: Response: No adverse reaction; Pain is decreased; RASS: Alert and Calm (0) ll1 Disposition: 18:23 I was immediately available on-site in the Emergency Department for consultation in the ms3 care of the patient. Disposition Summary: 08/28/24 13:31 Discharge Ordered Notes: Location: Home kb Condition: Stable kb Diagnosis - Pain in right shoulder kb Followup: kb - With: Emergency Department - When: As needed - Reason: Worsening of condition Followup: kb - With: Private Physician - When: 2 - 3 days - Reason: Recheck today's complaints, Continuance of care, Re-evaluation by your physician Discharge Instructions: - Discharge Summary Sheet kb - Shoulder Pain, Msty-ko-Jixf kb Forms: - Medication Reconciliation Form kb - Antibiotic Education kb - Prescription Opioid Use kb - Patient Portal Instructions kb - Leadership Thank You Letter kb Prescriptions: - Zofran 4 mg Oral tablet - take 1 tablet ORAL route every 6 hours As needed; 10 tablet; Refills: 0, kb Product Selection Permitted Signatures: Dispatcher [employer] Marixa Restrepo, [facility] [address] MAGISTRATE-Clara Quiroz, RN VIOLETTE Dimple Boyd RN RN ll1 Darrel Casillas, DO ms3 Corrections: (The following items were deleted from the chart) 12:24 12:24 Shoulder Right 2 View+RAD.RAD.BRZ ordered. WILFRED HARDIN
--- NOTE | 2024-08-28 13:31 | ER ---
Nurse's Notes [facility] Name: Sheila Vila Age: 73 yrs Sex: Female : 1950 Arrival Date: 08/28/2024 Time: 11:54 Bed 12 Private MD: Diagnosis: Pain in right shoulder Presentation: 08/28 12:24 Chief complaint: Slipped down 3 wet stairs 1 week ago, c/o right shoulder pain 12/27. hb Coronavirus screen: At this time, the client does not indicate any symptoms associated with coronavirus-19. Ebola Screen: No symptoms or risks identified at this time. Initial Sepsis Screen: Does the patient meet any 2 criteria? No. Patient's initial sepsis screen is negative. Does the patient have a suspected source of infection? No. Patient's initial sepsis screen is negative. Risk Assessment: Do you want to hurt yourself or someone else? Patient reports no desire to harm self or others. Onset of symptoms was August 22, 2024. 12:24 Method Of Arrival: Ambulatory hb 12:24 Acuity: SYLVESTER 4 hb 13:31 Care prior to arrival: None. Mechanism of Injury: Fall. Trauma event details: Injury ll1 occurred in the [facility]. Triage Assessment: 13:48 General: Appears in no apparent distress. Behavior is calm, cooperative, appropriate ll1 for age. Pain: Complains of pain in anterior aspect of right shoulder. Trauma Activation: Not Applicable Physician: ED Physician; Name: ; Notified At: ; Arrived At: Physician: General Surgeon; Name: ; Notified At: ; Arrived At: Physician: Radiology; Name: ; Notified At: ; Arrived At: Physician: Respiratory; Name: ; Notified At: ; Arrived At: Physician: Lab; Name: ; Notified At: ; Arrived At: Historical: - Allergies: 12:25 Darvocet-N 100; hb 12:25 PENICILLINS; hb 12:25 Propoxyphene; hb 12:25 Toradol; hb - PMHx: 12:25 Cirrhosis; Asthma; Diabetes - IDDM; Hepatitis; resolved; Hypertension; COPD; hb Pancreatitis; Pneumonia; - PSHx: 12:25 Cholecystectomy; hysterectomy; knee sx; hb - Immunization history:: Adult Immunizations up to date. - Infectious Disease History:: Denies. - Immunization history: Last tetanus immunization: - up to date. - Social history:: Smoking status: Patient denies any tobacco usage or history of. Screenin:31 [facility] ED Fall Risk Assessment (Adult) History of falling in the last 3 months, ll1 including since admission Yes- single mechanical fall (1 pt) Confusion or Disorientation No (0 pts) Intoxicated or Sedated No (0 pts) Impaired Gait No (0 pts) Mobility Assist Device Used No (0 pt) Altered Elimination No (0 pt) Score/Fall Risk Level 0 - 2 = Low Risk Maintained a safe environment, Hourly rounding (assess needs \T\ fall precautionary measures) done. Abuse screen: Denies threats or abuse. Nutritional screening: No deficits noted. Tuberculosis screening: No symptoms or risk factors identified. Primary Survey: 13:30 NO uncontrolled hemorrhage observed. A: The client is awake and alert. The airway is ll1 patent. Breathing/Chest: Spontaneous respiratory effort, equal unlabored respirations, breath sounds clear bilaterally, regular pattern, symmetrical chest rise and fall. Circulation: No external hemorrhage present. Regular and strong central pulse, skin warm/dry/normal color. Disability Client is alert. Exposure/Environment: There is no evidence of uncontrolled external bleeding. 13:31 Reassessment Alertness and Airway: Awake and alert. The airway is patent. Breathing: ll1 Spontaneous respiratory effort, equal unlabored respirations, breath sounds clear bilaterally, regular pattern with symmetrical chest rise and fall. Circulation: No external hemorrhage noted. Regular and strong central pulse, skin warm/dry/normal color. Disability: Alert. Assessment: 13:10 Reassessment: Patient and/or family updated on plan of care and expected duration. Pain ll1 level reassessed. 13:13 Reassessment: No changes from previously documented assessment. Patient and/or family ll1 updated on plan of care and expected duration. Pain level reassessed. Patient is alert, oriented x 3, equal unlabored respirations, skin warm/dry/pink. Vital Signs: 12:24 BP 137 / 91; Pulse 97; Resp 16; Temp 97.8; Pulse Ox 99% on R/A; Weight 85.28 kg; Height hb 5 ft. 4 in. ; Pain 9/10; 13:30 BP 131 / 81; Pulse 81; Resp 17; Pulse Ox 99% ; Pain 7/10; ll1 12:24 Body Mass Index 32.27 (85.28 kg, 162.56 cm) hb 12:24 Pain Scale: Adult hb 13:30 Pain Scale: Adult ll1 Klaudia Coma Score: 13:48 Eye Response: spontaneous(4). Motor Response: obeys commands(6). Verbal Response: ll1 oriented(5). Total: 15. Trauma Score (Adult): 13:48 Eye Response: spontaneous(1); Verbal Response: oriented(1); Motor Response: obeys ll1 commands(2); Systolic BP: > 89 mm Hg(4); Respiratory Rate: 10 to 29 per min(4); Klaudia Score: 15; Trauma Score: 12 ED Course: 12:00 Patient arrived in ED. al6 12:00 Marixa Tellez FNP-C is PHCP. kb 12:00 Darrel Casillas DO is Attending Physician. kb 12:25 Triage completed. hb 12:26 Arm band placed on. hb 13:10 Patient placed in an exam room, on a stretcher. ll1 13:13 Shoulder Right (2 View) XRAY In Process Unspecified. EDMS 13:31 Patient has correct armband on for positive identification. Provided Education on: ER ll1 procedures and process. 13:31 No provider procedures requiring assistance completed. Patient did not have IV access ll1 during this emergency room visit. 13:49 Patient maintains SpO2 saturation greater than 95% on room air. ll1 13:50 Thermoregulation: warm blanket given to patient. ll1 Administered Medications: 12:40 Drug: Ondansetron Oral Disintegrating Tablet Oral Disintegrating Tablet 4 mg PO once ll1 Route: PO; 13:13 Follow up: Response: No adverse reaction; Nausea unchanged ll1 13:19 Drug: morphine IM 4 mg IM once {Note: pain 9/10 RASS 0.} Route: IM; Site: left vastus ll1 lateralis; 13:50 Follow up: Response: No adverse reaction; Pain is decreased; RASS: Alert and Calm (0) ll1 Medication: 13:50 VIS not applicable for this client. ll1 Intake: 13:49 PO: 0ml; Total: 0ml. ll1 Output: 13:49 Urine: 0ml; Total: 0ml. ll1 Outcome: 13:31 Discharge ordered by . kb 13:31 Discharged to home ambulatory, ll1 13:31 Condition: stable 13:31 Discharge instructions given to patient, Instructed on discharge instructions, follow up and referral plans. medication usage, Demonstrated understanding of instructions, follow-up care, medications, Prescriptions given X 1, 13:49 Patient's length of stay was not longer than 2 hours. ll1 13:50 Patient left the ED. 1 Signatures: Dispatcher [employer] EDMS Marixa Tellez, TARA MOSCOSO-Clara Quiroz RN RN hb Lewis, Lynsay, RN RN ll1 Elaine Vaughan al6
[2024-08-28 13:56] VITALS: TEMP 97.8; O2SAT 99
[2024-08-28 13:57] VITALS: BP 131/81
== END 2024-08-28 13:50 | disposition home or self-care (01) ==
LOC: ER 11:54
DX: M25.511 Pain in right shoulder (principal); R11.0 Nausea; W10.9XXA Fall (on) (from) unspecified stairs and steps, initial encounter
CPT/HCPCS: 73030; 96372; 99284; Q0162